=== PATIENT | female | born 1945 | race Caucasian/White ===

== ENCOUNTER 2018-09-08 12:53 | Inpatient (IN) | payer MEDICARE, SELFPAY ==
[2018-09-08] VITALS (8 sets, daily range): BP systolic 117–161; BP diastolic 61–80; PULSE 68–86; RESP 15–17; TEMP 36.7–37.2; O2SAT 96–100; BMI 22.1; BMI 21.5
--- NOTE | 2018-09-08 13:27 | EKG12_ITS ---
Test Reason : ABN LABS Blood Pressure : / mmHG Vent. Rate : 071 BPM Atrial Rate : 071 BPM P-R Int : 166 ms QRS Dur : 068 ms QT Int : 378 ms P-R-T Axes : 070 054 057 degrees QTc Int : 410 ms Normal sinus rhythm with sinus arrhythmia Normal ECG Confirmed by MIKE SAN, HAI ([id number]), scientific publications editor RADHIKA LESTER ([id number]) on 09/13/2018 4:55:29 PM Referred By: Ethan Duarte Confirmed By:HAI MCKEON MD
--- NOTE | 2018-09-08 13:27 | CT_ITS ---
STUDY: CT BRAIN WITHOUT CONTRAST REASON FOR EXAM: Female, 72 years old. History of frontal lobe bleed. Dizziness. Patient had CT scan of the chest with IV contrast earlier today. RADIATION DOSAGE (If Supplied By Facility): CTDIvol = ( 60.81 ) mGy, DLP = ( 1067.08 ) mGycm TECHNIQUE: Transaxial CT imaging of the brain was performed without administration of intravenous contrast material. Individualized dose optimization techniques were used for this CT. COMPARISON: None. FINDINGS: Normal soft tissue structures. Normal calvarium. There is mild cerebral atrophy with widening of the extra-axial spaces and ventricular dilatation. There are areas of decreased attenuation within the white matter tracts of the supratentorial brain, consistent with microvascular disease changes. There are small punctate calcifications of the basal ganglia which are seen in the aging brain as a normal variant. Normal brainstem. Normal cerebellum. There is no intracranial hemorrhage. There are no findings of an acute ischemic infarction. Normal visualized paranasal sinuses. CT/Brain/Head without Contrast IMPRESSION: Chronic involutional changes of the brain. Electronically Signed: Andrea Hutson MD at 14:33 EST Tel [phone], Service support ,
--- NOTE | 2018-09-08 13:31 | NURSING ---
NO OLD EKGS
[2018-09-08 14:10] LABS: Absolute Lymphocyte Count 1.18 X10^3/ul (0.83-4.51); Basophil# 0.02 X10^3/uL; Basophil% 0.4 % (0-1); Eosinophil# 0.07 X10^3/uL; Eosinophils% 1.5 % (0-5); Hematocrit 32.8 % (37-47); Hemoglobin 10.4 g/dl (12.0-15.0); Lymphocyte # 1.18 X10^3/ul (4.0); Lymphocyte % 24.6 % (19-41); Mean Corp Hgb Conc 31.7 g/gl (32-36); Mean Corpuscular Hgb 29.1 pg (27.0-32.0); Mean Corpuscular Volume 91.6 fL (81-99); Monocyte# 0.49 X10^3/uL; Monocyte% 10.2 % (0-10); Neutrophil # 3.02 X10^3/uL (2.7-7.7); Neutrophil % 63.1 % (47-70); Platelet Count 225 K/mm3 (150-450); RBC Distribution Width CV 12.6 % (11.6-14.6); RBC Distribution Width SD 41.5 fl (35.1-43.9); Red Blood Count 3.58 M/mm3 (4.2-5.4); White Blood Count 4.8 K/mm3 (4.4-11.0)
[2018-09-08 14:14] LABS: POSITIVE COUNT NO; POSITIVE DIFFERENTIAL NO; POSITIVE MORPHOLOGY NO
[2018-09-08 14:19] LABS: Prothrombin Time (Protime)PT. 12.7 SECONDS (11.7-14.9)
[2018-09-08] MEDS: Ondansetron 4 MG/2 ML Vial IV (15:00)
--- NOTE | 2018-09-08 15:14 | ED.DCSUM_ITS ---
- ER Visit Summary Date of Service: 09/08/18 Chief Complaint: PE History of Present Illness: The patient is a 72 F who was sent for a PE. The patient has a history of uterine cancer and gets CTs every 3 months for surveillance. She had a distal posterior basal segmental artery right lower lobe PE on CT today. This was an outside facility. The patient is not having any symptoms at all. Denies any history of blood clots. She does report that she had a head bleed after a fall in mid July 2018. Physical Examination: Afebrile and vital signs unremarkable. Patient is alert and oriented. No acute distress. Heart regular. Lungs clear. Extremities nontender with no edema. Skin appears unremarkable. Test Results: EKG showed sinus rhythm at a rate of 71. Heme globin 10.4. Coags unremarkable. Troponin normal. She had an outside metabolic panel that showed a glucose of 103, BUN 16, creatinine 0.65. Otherwise normal. CT brain normal. Emergency Department Course and Treatment: Patient declined repeat metabolic panel. She had one done today. Again, glucose 103, BUN 16, creatinine 0.65. I did check a head CT because of her history of bleed. This was unremarkable. Patient discussed with hospitalist and will be admitted. He advised that she might be a good candidate for IVC filter. I spoke with Dr. Paredes. He can put her on the schedule for mid day tomorrow. I believe this is appropriate. The patient is stable. Hospitalist is agreeable to this. Patient will be admitted for further care. Treatment Plan: As above Disposition: Admission Impression: Pulmonary embolism This note was generated with [employer] dictation software. It may contain incorrect words, spelling, and punctuation that were not noted in review of the chart prior to signing ED Disposition - Plan for ED Patient: Chief Complaint: Abn Labs Referrals: Tee Monroe MD [Primary Care Provider] -
--- NOTE | 2018-09-08 15:28 | HP.PCM_ITS ---
Problem List (1) Pulmonary embolism Status: Acute (2) Brain bleed Status: Chronic (3) Multiple sclerosis Status: Chronic (4) Uterine cancer Status: Chronic (5) Pulmonary nodule Status: Chronic History of Present Illness Date of Admission: 09/08/18 Chief Complaint: PE on routine CT The patient is a 72 year old F who presented to the emergency room after being found to have a pulmonary emboli incidentally on routine imaging. 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 Noam Freeman at [facility] - prior tx with total hysterectomy and radiation. She also has a hx of MS and HLD. She is currently being treated with oral chemotherapy-Afinitor. She has routine CAT scans of her lungs every 3 months. This is found today. Despite having a pulmonary embolism she does not have any symptoms including chest pain or shortness of breath. She has had intermittent dizziness reportedly during yoga last night and again today after the CT. She also has some nausea and dry heaving today. Unfortunately she has a recent history of a brain bleed. This occurred on August 17. She fell backwards striking her head and was found to have a frontal brain bleed-intraparenchymal hemorrhage and subdural hemorrhage. Due to this she cannot be anticoagulated. She is agreeable to surgery if needed, and Dr. Paredes will evaluate the patient. 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 Denies: Abdominal Pain Genitourinary: Denies: Dysuria Musculoskeletal: Denies: Joint Pain, Joint Tenderness Skin: Denies: Rash, Wounds Neurological: Denies: Numbness, Tingling, Focal weakness Psychiatric: Denies: Anxiety, Depression, Homicidal Ideations, Suicidal Ideations Hematologic/ Lymphatic: Denies: Easy Bruising, Easy Bleeding VTE Information - Inpt Only VTE Present on Admission: Yes VTE Mechan Device Prophylaxis: SCD's VTE Pharm Prophylaxis ordered?: No Reason prophylaxis not ordered:: Medical Contraindication Patient Problems: Active and Suspected Problems Pulmonary embolism (Acute) - Physical Exam General: Alert, Oriented x3, Cooperative HEENT: Atraumatic, PERRLA, EOMI, Normocephalic Neck: Supple, No JVD, Negative Carotid Bruits Lungs: Clear to auscultation, Normal air movement Cardiovascular: Regular rate, No murmurs Abdomen: Bowel Sounds Present, Soft, Non Tender Extremities: No edema, Capillary Refill Less than 3 Seconds Skin: No rashes, No breakdown Musculoskeletal: No Tenderness to Palpation of Joints or Extremities Neurological: Cranial nerves II-XII grossly intact Psych/Mental Status: Normal Affect, Appropriate, Alert and oriented to time, place, person, mood and affect Vital Signs Temp Pulse Resp BP Pulse Ox 98.1 F 73 15 161/80 H 99 09/08/18 12:58 09/08/18 14:54 09/08/18 14:54 09/08/18 14:54 09/08/18 14:54 Oxygen Delivery Method Room Air Weight: 113 lb 8.609 oz Body Mass Index (BMI) 22.1 Laboratory Tests Past 24 Hrs 09/08/18 09/08/18 09/08/18 13:56 13:56 13:56 WBC 4.8 RBC 3.58 L Hgb 10.4 L Hct 32.8 L MCV 91.6 MCH 29.1 MCHC 31.7 L RDW 12.6 RDW Differential 41.5 Plt Count 225 MPV 9.0 Immature Gran % (Auto) 0.200 Neut % (Auto) 63.1 Lymph % (Auto) 24.6 [place] % (Auto) 10.2 H Eos % (Auto) 1.5 Baso % (Auto) 0.4 Absolute Neuts (auto) 3.0 Absolute Lymphs (auto) 1.18 Total Counted Not Reportable PT 12.7 INR 1.0 APTT 28.0 Troponin I 0.021 Assessment/Plan All Active Problems Pulmonary embolism (Acute) 1. Acute PE - incidental finding on q3 month outpatient CT scan today at outside facility - RLL distal posterior basal. No SOB/hypoxia/CP. Likely 2/2 uterine cancer. Recent intraparenchymal hemorrhage, subdural hemorrhage following fall and striking her head. Repeat CT brain today without acute changes. Obtain dopplers of the LE, 2d echocardiogram. Consult to Dr. Paredes as the patient may need IVC filter placement. EKG with sinus arrhythmia. Troponin neg. 2. Anemia, normocytic - trend. 3. 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 Reported spiculated pulmonary nodule that has not been worked up. On oral chemo - afinitor. Oncologist is [facility] Dr. Freeman ([place]). Prior total hysterectomy, radiation therapy. 4. Hx MS - with recent falls. PTOT evals. 6. Vertigo - echo, tele. prn antiemetics, PTOT. 7. HTN - no hx, elevated in ER - trend for now. 8. Hx HLD DVT ppx: SCDs, chemo ppx contraindicated with hx brain bleeding. DC planning: lives alone. PTOT evals. This patient was seen by Bear Velazquez PA-C under the supervision of Doctor Duarte.
--- NOTE | 2018-09-08 15:43 | PCM.CONS.GEN ---
Problem List (1) Pulmonary embolism Status: Acute (2) Uterine cancer Status: Chronic Reason for Consult Date of Consultation: 09/08/18 Reason for Consultation: Pulmonary embolism History of Present Illness: The patient is a 72 year old F who presents with a right lower lobe pulmonary embolism. Patient was at an outside facility obtaining a scheduled routine [address] scan of the ab/pel/chest. It was noted that the patient had a right lower lobe pulmonary embolism. Patient was also noted to have a new lung nodule found. Patient has a 5 year history of uterine cancer. Patient stated her uterine cancer returned this past summer. She has completed radiation and chemotherapy. She is currently continuing to take a chemotherapy drug daily. She follows with Dr. Freeman at [facility]. She denies previous blood clots. She denies pain in her calves. She does have a port-a-cath in the right chest. Per patient, she has not had a DVT study. Patient is also present with her friend and [id number]. Per patient's friend, patient had a fall mid July and was hospitalized for a brain bleed. Patient denies previous myocardial infarction, stroke. She denies shortness of breath and chest pain. Past Medical History Past Medical History (Chronic Problems): Chronic Problems Brain bleed (Chronic) Multiple sclerosis (Chronic) Uterine cancer (Chronic) Pulmonary nodule (Chronic) Allergies codeine Allergy (Verified 09/08/18 12:58) Hives erythromycin base Allergy (Verified 09/08/18 12:58) Upset Stomach methylprednisolone Allergy (Verified 09/08/18 12:58) Hives Sulfa (Sulfonamide Antibiotics) Allergy (Verified 09/08/18 12:58) Hives Home Medications: Ambulatory Orders Medication Instructions Recorded Atorvastatin Calcium [Lipitor] 10 mg PO QHS 09/08/18 Brimonidine 0.15% [Alphagan P 1 drop EACH EYE BID 09/08/18 0.15%] Cholecalciferol (VIT D3) [Vitamin 1,000 unit PO DAILY 09/08/18 D] Clonazepam 1 mg PO QHS PRN PRN 09/08/18 Dexamethasone 10 ml PO TID 09/08/18 Escitalopram Oxalate [Lexapro] 10 mg PO DAILY 09/08/18 Everolimus [Afinitor] 10 mg PO DAILY 09/08/18 Latanoprost 1 drop EACH EYE QHS 09/08/18 Letrozole 2.5 mg PO DAILY 09/08/18 Multivitamins,Therapeutic 1 tablet PO DAILY 09/08/18 [Multivitamin] Nitrofurantoin Monohyd/M-Cryst 100 mg PO DAILY 09/08/18 [Nitrofurantoin [place]-Mcr 100 mg] Ondansetron HCl 8 mg PO Q8H PRN PRN 09/08/18 Sertraline HCl 100 mg PO DAILY 09/08/18 Timolol Maleate 1 drop EACH EYE BID 09/08/18 Psychiatric History: No pertinent psych hx 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 Denies: Abdominal Pain, Vomiting Genitourinary: Denies: Dysuria Musculoskeletal: Denies: Joint Pain, Joint Tenderness Skin: Denies: Rash, Wounds Neurological: Reports: Balance problems Psychiatric: Denies: Anxiety, Depression, Homicidal Ideations, Suicidal Ideations Hematologic/ Lymphatic: Reports: Anemia. Denies: Easy Bruising, Easy Bleeding Patient Problems: Active and Suspected Problems Pulmonary embolism (Acute) - Physical Exam General: Alert, Oriented x3, Cooperative HEENT: Atraumatic, PERRLA, EOMI, Normocephalic Neck: Supple, No JVD, Negative Carotid Bruits Lungs: Clear to auscultation, Normal air movement Cardiovascular: Regular rate, No murmurs Abdomen: Bowel Sounds Present, Soft, Non Tender Extremities: No edema, Capillary Refill Less than 3 Seconds Skin: No rashes, No breakdown, - - Right chest port-a-cath Musculoskeletal: No Tenderness to Palpation of Joints or Extremities Neurological: Neuro grossly intact Psych/Mental Status: Normal Affect, Appropriate Vital Signs Temp Pulse Resp BP Pulse Ox 98.1 F 73 15 161/80 H 99 09/08/18 12:58 09/08/18 14:54 09/08/18 14:54 09/08/18 14:54 09/08/18 14:54 Oxygen Delivery Method Room Air Weight: 113 lb 8.609 oz Body Mass Index (BMI) 22.1 Laboratory Tests Past 24 Hrs 09/08/18 09/08/18 09/08/18 13:56 13:56 13:56 WBC 4.8 RBC 3.58 L Hgb 10.4 L Hct 32.8 L MCV 91.6 MCH 29.1 MCHC 31.7 L RDW 12.6 RDW Differential 41.5 Plt Count 225 MPV 9.0 Immature Gran % (Auto) 0.200 Neut % (Auto) 63.1 Lymph % (Auto) 24.6 [place] % (Auto) 10.2 H Eos % (Auto) 1.5 Baso % (Auto) 0.4 Absolute Neuts (auto) 3.0 Absolute Lymphs (auto) 1.18 Total Counted Not Reportable PT 12.7 INR 1.0 APTT 28.0 Troponin I 0.021 Assessment/Plan All Active Problems Pulmonary embolism (Acute) I have been consulted in conjunction with Dr. Paredes. Impression: Pulmonary embolism. Anticoagulation contraindicated secondary to recent brain bleed. In need of inferior vena cava filter Plan: Patient was discussed with Dr. Paredes. Dr. Paredes will plan to perform an inferior vena cava filter. Procedure details, risks and benefits have been explained to the patient. Patient and her support have had the opportunity to ask and have questions answered. Patient verbally understands and agrees with the plan. Patient will be admitted to the medicine service. She will be NPO after midnight. Thank you for allowing us to participate in this patient's care. My recommendations will be available via medical records. Code Visit Office Visits / Consults: [id number] IP Consult L3
--- NOTE | 2018-09-08 15:59 | CON.PCM_ITS ---
Problem List (1) Pulmonary embolism Status: Acute (2) Uterine cancer Status: Chronic Reason for Consult Date of Consultation: 09/08/18 Reason for Consultation: Pulmonary embolism History of Present Illness: The patient is a 72 year old F who presents with a right lower lobe pulmonary embolism. Patient was at an outside facility obtaining a scheduled routine [address] scan of the ab/pel/chest. It was noted that the patient had a right lower lobe pulmonary embolism. Patient was also noted to have a new lung nodule found. Patient has a 5 year history of uterine cancer. Patient stated her uterine cancer returned this past summer. She has completed radiation and chemotherapy. She is currently continuing to take a chemotherapy drug daily. She follows with Dr. Freeman at [facility]. She denies previous blood clots. She denies pain in her calves. She does have a port-a-cath in the right chest. Per patient, she has not had a DVT study. Patient is also present with her friend and [id number]. Per patient's friend, patient had a fall mid July and was hospitalized for a brain bleed. Patient denies previous myocardial infarction, stroke. She denies shortness of breath and chest pain. Past Medical History Past Medical History (Chronic Problems): Chronic Problems Brain bleed (Chronic) Multiple sclerosis (Chronic) Uterine cancer (Chronic) Pulmonary nodule (Chronic) Allergies codeine Allergy (Verified 09/08/18 12:58) Hives erythromycin base Allergy (Verified 09/08/18 12:58) Upset Stomach methylprednisolone Allergy (Verified 09/08/18 12:58) Hives Sulfa (Sulfonamide Antibiotics) Allergy (Verified 09/08/18 12:58) Hives Home Medications: Ambulatory Orders Medication Instructions Recorded Atorvastatin Calcium [Lipitor] 10 mg PO QHS 09/08/18 Brimonidine 0.15% [Alphagan P 1 drop EACH EYE BID 09/08/18 0.15%] Cholecalciferol (VIT D3) [Vitamin 1,000 unit PO DAILY 09/08/18 D] Clonazepam 1 mg PO QHS PRN PRN 09/08/18 Dexamethasone 10 ml PO TID 09/08/18 Escitalopram Oxalate [Lexapro] 10 mg PO DAILY 09/08/18 Everolimus [Afinitor] 10 mg PO DAILY 09/08/18 Latanoprost 1 drop EACH EYE QHS 09/08/18 Letrozole 2.5 mg PO DAILY 09/08/18 Multivitamins,Therapeutic 1 tablet PO DAILY 09/08/18 [Multivitamin] Nitrofurantoin Monohyd/M-Cryst 100 mg PO DAILY 09/08/18 [Nitrofurantoin [place]-Mcr 100 mg] Ondansetron HCl 8 mg PO Q8H PRN PRN 09/08/18 Sertraline HCl 100 mg PO DAILY 09/08/18 Timolol Maleate 1 drop EACH EYE BID 09/08/18 Psychiatric History: No pertinent psych hx 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 Denies: Abdominal Pain, Vomiting Genitourinary: Denies: Dysuria Musculoskeletal: Denies: Joint Pain, Joint Tenderness Skin: Denies: Rash, Wounds Neurological: Reports: Balance problems Psychiatric: Denies: Anxiety, Depression, Homicidal Ideations, Suicidal Ideations Hematologic/ Lymphatic: Reports: Anemia. Denies: Easy Bruising, Easy Bleeding Patient Problems: Active and Suspected Problems Pulmonary embolism (Acute) - Physical Exam General: Alert, Oriented x3, Cooperative HEENT: Atraumatic, PERRLA, EOMI, Normocephalic Neck: Supple, No JVD, Negative Carotid Bruits Lungs: Clear to auscultation, Normal air movement Cardiovascular: Regular rate, No murmurs Abdomen: Bowel Sounds Present, Soft, Non Tender Extremities: No edema, Capillary Refill Less than 3 Seconds Skin: No rashes, No breakdown, - - Right chest port-a-cath Musculoskeletal: No Tenderness to Palpation of Joints or Extremities Neurological: Neuro grossly intact Psych/Mental Status: Normal Affect, Appropriate Vital Signs Temp Pulse Resp BP Pulse Ox 98.1 F 73 15 161/80 H 99 09/08/18 12:58 09/08/18 14:54 09/08/18 14:54 09/08/18 14:54 09/08/18 14:54 Oxygen Delivery Method Room Air Weight: 113 lb 8.609 oz Body Mass Index (BMI) 22.1 Laboratory Tests Past 24 Hrs 09/08/18 09/08/18 09/08/18 13:56 13:56 13:56 WBC 4.8 RBC 3.58 L Hgb 10.4 L Hct 32.8 L MCV 91.6 MCH 29.1 MCHC 31.7 L RDW 12.6 RDW Differential 41.5 Plt Count 225 MPV 9.0 Immature Gran % (Auto) 0.200 Neut % (Auto) 63.1 Lymph % (Auto) 24.6 [place] % (Auto) 10.2 H Eos % (Auto) 1.5 Baso % (Auto) 0.4 Absolute Neuts (auto) 3.0 Absolute Lymphs (auto) 1.18 Total Counted Not Reportable PT 12.7 INR 1.0 APTT 28.0 Troponin I 0.021 Assessment/Plan All Active Problems Pulmonary embolism (Acute) I have been consulted in conjunction with Dr. Paredes. Impression: Pulmonary embolism. Anticoagulation contraindicated secondary to recent brain bleed. In need of inferior vena cava filter Plan: Patient was discussed with Dr. Paredes. Dr. Paredes will plan to perform an inferior vena cava filter. Procedure details, risks and benefits have been explained to the patient. Patient and her support have had the opportunity to ask and have questions answered. Patient verbally understands and agrees with the plan. Patient will be admitted to the medicine service. She will be NPO after midnight. Thank you for allowing us to participate in this patient's care. My recommendations will be available via medical records. Code Visit Office Visits / Consults: [id number] IP Consult L3
--- NOTE | 2018-09-08 16:02 | VDLE_ITS ---
Reason For Study: PE RIGHT LEFT Rt CFV is dilated and PARTIALLY COMPRESSIBLE GSV is normal. with partial color filling. CFV is compressible, spontaneous, phasic, Rt SFJ is dilated and PARTIALLY COMPRESSIBLE competent, and demonstrates normal with partial color filling. augmentation. Rt SFV is dilated and PARTIALLY COMPRESSIBLE Left SFV is dilated and NONCOMPRESSIBLE from with partial color filling to mid FV. The mid SFV to T/P Trunk. Left POP V is dilated remainder of SFV is compressible and fills and NONCOMPRESSIBLE. The remainder of the SFV with color. is compressible. POP V is compressible, spontaneous, phasic, PTV is compressible. competent and demonstrates normal LT PerV is compressible. augmentation. T/P Trunk is compressible. PTV is compressible. RT PerV is compressible. GSV is normal. Procedure Exam performed portable in patient room. A preliminary report was called and/or faxed to PCU. Interpretation Summary Acute deep vein thrombosis is noted in the right common femoral vein. Acute deep vein thrombosis is noted in the right femoral vein. The remainder of the right lower extremity deep venous system is patent and compressible. Acute deep vein thrombosis is noted in the left femoral vein. Acute deep vein thrombosis is noted in the left popliteal vein. Acute deep vein thrombosis is noted in the left tibio-peroneal trunk. The remainder of the left lower extremity deep venous system is patent and compressible. The great saphenous veins are patent and compressible bilaterally. Ordering Physician: Ethan Duarte Referring Physician: JIMMY PIZARRO Performed By: Sraa Davila, MAURICIO, RVT
--- NOTE | 2018-09-08 16:02 | ECHOD_ITS ---
Reason For Study: PE Procedure This was a 2D Doppler, Color Flow transthoracic echocardiogram. The exam was of adequate technical quality. Exam performed portable in patient room. Left Ventricle Normal LV size. Left ventricular systolic function is normal. The estimated ejection fraction is 65 %. The global longitudinal strain = -27 % (normal). No evidence for diastolic dysfunction. No regional wall motion abnormalities noted. Right Ventricle Normal RV size. A moderator band is seen in the right ventricle. Normal systolic function. Atria Normal left atrium. Normal right atrium. No doppler evidence for ASD. Mitral Valve There is no mitral annular calcification. Mild diffuse mitral valve thickening. Trivial mitral valve insufficiency. Tricuspid Valve Normal tricuspid valve. Trivial tricuspid valve insufficiency. Right ventricular systolic pressure estimated to be 20 mmHg. Aortic Valve Trisinus/trileaflet aortic valve. Mild diffuse aortic valve thickening. Pulmonic Valve The pulmonic valve is not well visualized. Trivial pulmonic valve insufficiency. Great Vessels Normal sized aortic root. Pericardium/Pleural No pericardial effusion. MMode/2D Measurements & Calculations LVIDd: 4.3 cm IVSd: 0.86 cm Ao root diam: 3.0 cm LVIDs: 3.1 cm LVPWd: 1.0 cm RVDd: 2.8 cm FS: 29.4 % LAV(MOD-bp): 35.2 ml LA A4 area: 11.2 cm2 LA dimension(2D): 3.5 cm LAV(MOD-bp) Indexed: 23.9 ml/m2 LAV(MOD-sp2): 35.2 ml LAV(MOD-sp4): 27.0 ml RA A4 area: 9.3 cm2 Doppler Measurements & Calculations MV E max abraham: 75.9 cm/sec Lat Peak E' Abraham: 8.3 cm/sec Med Peak E' Abraham: 6.9 cm/sec MV A max abraham: 96.6 cm/sec E/E' lat: 9.1 E/E' med: 11.0 MV E/A: 0.79 Ao V2 max: 124.4 cm/sec LV V1 max: 85.4 cm/sec PA V2 max: 123.9 cm/sec Ao max P.2 mmHg LV V1 max P.9 mmHg TR max abraham: 205.8 cm/sec TR max P.9 mmHg Interpretation Summary Left ventricular systolic function is normal. The estimated ejection fraction is 65 %. The global longitudinal strain = -27 % (normal). A moderator band is seen in the right ventricle. Mild diffuse mitral valve thickening. Trivial mitral valve insufficiency. Trivial tricuspid valve insufficiency. Mild diffuse aortic valve thickening. Trivial pulmonic valve insufficiency. Right ventricular systolic pressure estimated to be 20 mmHg. No evidence for diastolic dysfunction. Ordering Physician: Ethan Duarte Referring Physician: Ryley Monroe Performed By: Rosa Castillo RDCS, RVT
[2018-09-08] MEDS: Acetaminophen 325 MG Tablet 650 MG PO (18:21)
[2018-09-08] MEDS: 0.9% NaCl Peripheral Flush Adult/Peds IV ×3 (20:02→20:05)
[2018-09-08] MEDS: clonazePAM 1 MG Tablet PO (23:40)
[2018-09-08] MEDS: Atorvastatin Calcium 10 MG Tablet PO (23:40)
[2018-09-08] MEDS: Timolol 0.5% 5ML OPTH.BTL 1 DRP EACH EYE (23:41)
[2018-09-09] VITALS (17 sets, daily range): BP systolic 108–143; BP diastolic 48–70; PULSE 68–84; RESP 15–16; TEMP 36.8–37.2; O2SAT 94–99; BMI 21.5
[2018-09-09] MEDS: 0.9% NaCl Peripheral Flush Adult/Peds IV ×3 (04:31→04:33)
[2018-09-09 04:46] LABS: Absolute Lymphocyte Count 1.57 X10^3/ul (0.83-4.51); Absolute Neutrophil Count 2.3 X10^3/uL (2.0-7.7); Basophil# 0.03 X10^3/uL; Basophil% 0.7 % (0-1); Eosinophils% 2.2 % (0-5); Hematocrit 30.9 % (37-47); Hemoglobin 9.7 g/dl (12.0-15.0); Lymphocyte # 1.57 X10^3/ul (4.0); Mean Corp Hgb Conc 31.4 g/gl (32-36); Mean Corpuscular Hgb 28.8 pg (27.0-32.0); Mean Corpuscular Volume 91.7 fL (81-99); Monocyte# 0.44 X10^3/uL; Monocyte% 9.8 % (0-10); Neutrophil # 2.33 X10^3/uL (2.7-7.7); Neutrophil % 52.1 % (47-70); Platelet Count 196 K/mm3 (150-450); RBC Distribution Width SD 43.3 fl (35.1-43.9); Red Blood Count 3.37 M/mm3 (4.2-5.4); White Blood Count 4.5 K/mm3 (4.4-11.0)
[2018-09-09 04:47] LABS: POSITIVE COUNT NO; POSITIVE DIFFERENTIAL NO; POSITIVE MORPHOLOGY NO
[2018-09-09 04:53] LABS: International Normalized Ratio 0.9; Prothrombin Time (Protime)PT. 12.2 SECONDS (11.7-14.9)
[2018-09-09 04:54] LABS: Partial Thromboplast Time 26.1 Seconds (24.1-36.2)
[2018-09-09 05:00] LABS: Anion Gap 10 (5-15); BUN 16 mg/dL (7-18); BUN/Creat Ratio 19.1 RATIO (10-20); Calcium,Total 8.7 mg/dL (8.5-10.1); Chloride 105 mmol/L (98-107); Creatinine, Serum 0.84 mg/dL (0.55-1.02); EST Glomerular Filtration Rate 72 mL/min (>60); Est Glom Filt Rate - Afr Amer 87 mL/min (>60); Estimated Creatinine Clearance 44.76 ml/min; Glucose 91 mg/dL (74-106); Potassium 3.8 mmol/L (3.5-5.1); Sodium Level 143 mmol/L (136-145)
--- NOTE | 2018-09-09 05:55 | EKG12_ITS ---
Test Reason : AM EKG Blood Pressure : / mmHG Vent. Rate : 075 BPM Atrial Rate : 075 BPM P-R Int : 174 ms QRS Dur : 072 ms QT Int : 396 ms P-R-T Axes : 073 056 064 degrees QTc Int : 442 ms Normal sinus rhythm with sinus arrhythmia Normal ECG When compared with ECG of 08-SEP-2018 13:38, MANUAL COMPARISON REQUIRED, DATA IS UNCONFIRMED Confirmed by MIKE SAN, HAI ([id number]), make up editor RADHIKA LESTER ([id number]) on 09/13/2018 5:36:17 PM Referred By: Ethan Duarte Confirmed By:HAI MCKEON MD
[2018-09-09 05:59] LABS: Color, Urine Yellow (Yellow); Glucose, Dipstick Normal (Normal); Ketone-Dipstick Negative (Negative); Leukocyte Esterase-Dipstick 100 /ul (Negative); Nitrite-Dipstick Negative (Negative); Occult Blood-Urine Negative /ul (Negative); Protein-Dipstick 30 mg/dl (Negative); Urine Bilirubin Dipstick Negative (Negative); Urine Clarity Clear (Clear); Urine Urobilinogen Normal (Normal)
--- NOTE | 2018-09-09 09:15 | CASEMGMT ---
[employer] PSYCHOLOGIST AMANDA to room to meet with patient for initial transition planning/care coordination assessment. MONTSE PATEL introduced self and role at [facility]. Pt voices understanding and consents to assessment at this time. Pt resting in bed in no distress at this time. Pt is A/O at this time and answers all questions appropriately. Care providers, pharmacy, and demographics verified/updated at this time. PCP: Fer Specialists: Dr Noam Freeman, oncologist in [place]; Dr Michael, [place] doctor @ [facility] in [place]. States she does not remember Dr Michael's last name. Preferred Pharmacy: [facility] Insurance: [employer] MCR Prescription Benefit: A[employer]na MCR Living Will/HPOA: Has both LW and HCPOA, who is her son, Min Kennedy. Copies not found on file. Pt states she is not sure if her son has a copy of these or if he is able to bring them in. LNOK: 2 sons and a daughter Living Arrangements: Lives alone in a tri-level home. [facility] there are 5 sets of stairs w/in the home. States I do fine with the stairs. [facility] is independent with all ADL's. Has a cleaning lady come every 2 weeks. Transportation: Pt states drives self but will ask friends for assistance if needed. [facility] have transportation services she is going to look into. Pt also provided with [facility] Van transportation information. Pt voices appreciation. DME: [facility] has the following DME: Shower chair, hand held shower, and cane. [facility] has a walker but does not use it. Pt states no need for further DME at this time. HHC/SNF: Has never used HHC or been to a SNF. Denies needs for HHC. Pt states she has an appt on Wednesday with an MS physical therapist from [place] that she is planning to work with. Pt wishes to return home and states has no concerns with going home at time of discharge. CM to follow for any further discharge planning/needs. Pt voices no further concerns/needs at this time. Advised pt to ask for CM if any further questions/concerns/needs arise. Voices understanding. PLAN: Home Clara DANIELS RN, CM
--- NOTE | 2018-09-09 13:02 | OP.PCM_ITS ---
Problem List (1) Pulmonary embolism Status: Acute Qualifiers: Pulmonary embolism type: other Chronicity: acute Acute cor pulmonale presence: without acute cor pulmonale Qualified Code(s): I26.99 - Other pulmonary embolism without acute cor pulmonale Report of Operation Date of Procedure: 09/09/18 Pre-Operative Diagnosis: Pulmonary embolization. Deep venous thrombosis bilateral groins Post-Operative Diagnosis: Same Surgery/Procedure Performed:: Trans-right jugular inferior vena cava retrievable Sarai filter placement Description of Surgical Findings:: Timeout and informed consent was obtained. 72-year-old female was taken to the special procedures lab placed upon the table. She had the right neck and chest sterilely prepped and draped. Ultrasound was used to identify the right internal jugular vein. This is rather diminutive. The patient has a right internal jugular port. Under ultrasound guidance percent lidocaine was instilled. A micropuncture needle was inserted. Despite 3 separate attempts the micropuncture wire could not be advanced past the internal jugular tubing. So then under ultrasound guidance I advanced a single wall needle into the right internal jugular vein and advanced a 035 Glidewire which I was able to advance past the internal jugular SVC port tubing. I then was able to dilate up plate a 5 Bangladeshi sheath. I was able to place an 035 Glidewire down into the inferior vena cava and placed a 5 Bangladeshi universal flush catheter. A AP venogram was obtained using the flush catheter at 15 cc a second 25 cc of Isovue. Venacavogram demonstrated no flow noted in the right common iliac but that may have been secondary to positioning the catheter. There was acute angulation of the left common iliac with no thrombus. The more distal inferior vena cava was at slightly smaller diameter. Then it broadened out and both renal veins could be filling. The proximal flow appeared to be unremarkable. I did not see any vena caval thrombus. I was able to instrument maker out an 035 J-wire through the flush catheter. The 5 Bangladeshi sheath was exchanged out and a 9 Bangladeshi sheath was used to dilate the and the deploying sheath for the telemetry filter was inserted. I placed the Webb filter so that the feet would open into the wider portion of the vein in correct angulation with the longitudinal position of the inferior vena cava and to have the apical portion of the filter close to the renal veins. It deployed nicely. I inspected with several different views assuring that all legs of the filter had opened properly and that appeared to be confirmed on the imaging. I removed the deployment device. I removed the sheath with continuous observation of the port tubing assuring no displacement. Then pressure was held for hemostasis Telfa OpSite dressing applied. She tolerated the procedure well. It is of note that throughout the procedure she received 50 mcg of fentanyl and 2 mg of Versed as intravenous sedation Specimens none. Drains none. Blood loss minimal. She remained completely stable intact throughout the procedure and she was taken back to recovery area in satisfactory condition without apparent complication René Paredes M.D., F.A.C.S. Type of Anesthesia:: IV Sedation
--- NOTE | 2018-09-09 13:21 | PN_ITS ---
<Bear Velazquez - Last Filed: 09/09/18 13:18> Patient Problems: Active and Suspected Problems Pulmonary embolism (Acute) Subjective: Pt resting comfortably in bed NAD, seen and examined prior to surgery. She had no SOB or CP. Her nausea and dizziness resolved overnight. She has no complaints this AM. - Physical Exam General: Alert, Oriented x3, Cooperative HEENT: Atraumatic, PERRLA, EOMI, Normocephalic Neck: Supple, No JVD, Negative Carotid Bruits Lungs: Clear to auscultation, Normal air movement Cardiovascular: Regular rate, No murmurs Abdomen: Bowel Sounds Present, Soft, Non Tender Extremities: No edema, Capillary Refill Less than 3 Seconds Skin: No rashes, No breakdown Musculoskeletal: No Tenderness to Palpation of Joints or Extremities Neurological: Cranial nerves II-XII grossly intact Psych/Mental Status: Normal Affect, Appropriate, Alert and oriented to time, place, person, mood and affect Vital Signs Temp Pulse Resp BP Pulse Ox 98.6 F 80 16 142/70 H 99 09/09/18 09:53 09/09/18 11:49 09/09/18 09:53 09/09/18 09:53 09/09/18 09:53 Oxygen Delivery Method Room Air Weight: 110 lb 3.698 oz Body Mass Index (BMI) 21.5 Intake and Output for Last 24 Hours 09/07/18 09/08/18 09/09/18 23:59 23:59 23:59 Intake Total 820 / 820 Balance 820 / 820 Laboratory Tests Past 24 Hrs 09/08/18 09/08/18 09/08/18 13:56 13:56 13:56 WBC 4.8 RBC 3.58 L Hgb 10.4 L Hct 32.8 L MCV 91.6 MCH 29.1 MCHC 31.7 L RDW 12.6 RDW Differential 41.5 Plt Count 225 MPV 9.0 Immature Gran % (Auto) 0.200 Neut % (Auto) 63.1 Lymph % (Auto) 24.6 [place] % (Auto) 10.2 H Eos % (Auto) 1.5 Baso % (Auto) 0.4 Absolute Neuts (auto) 3.0 Absolute Lymphs (auto) 1.18 Total Counted Not Reportable PT 12.7 INR 1.0 APTT 28.0 Sodium Potassium Chloride Carbon Dioxide Anion Gap BUN Creatinine Estim Creat Clear Calc Est GFR (MDRD) Af Amer Est GFR (MDRD) Non-Af BUN/Creatinine Ratio Glucose Calcium Troponin I 0.021 Urine Color Urine Clarity Urine pH Ur Specific [place] Urine Protein Urine Glucose (UA) Urine Ketones Urine Occult Blood Urine Nitrite Urine Bilirubin Urine Urobilinogen Ur Leukocyte Esterase 09/08/18 09/08/18 09/09/18 17:00 20:04 04:35 WBC RBC Hgb Hct MCV MCH MCHC RDW RDW Differential Plt Count MPV Immature Gran % (Auto) Neut % (Auto) Lymph % (Auto) [place] % (Auto) Eos % (Auto) Baso % (Auto) Absolute Neuts (auto) Absolute Lymphs (auto) Total Counted PT INR APTT Sodium 143 Potassium 3.8 Chloride 105 Carbon Dioxide 28.0 Anion Gap 10 BUN 16 Creatinine 0.84 Estim Creat Clear Calc 44.76 Est GFR (MDRD) Af Amer 87 Est GFR (MDRD) Non-Af 72 BUN/Creatinine Ratio 19.1 Glucose 91 Calcium 8.7 Troponin I < 0.015 < 0.015 Urine Color Urine Clarity Urine pH Ur Specific [place] Urine Protein Urine Glucose (UA) Urine Ketones Urine Occult Blood Urine Nitrite Urine Bilirubin Urine Urobilinogen Ur Leukocyte Esterase 09/09/18 09/09/18 09/09/18 04:35 04:35 04:35 WBC 4.5 RBC 3.37 L Hgb 9.7 L Hct 30.9 L MCV 91.7 MCH 28.8 MCHC 31.4 L RDW 13.0 RDW Differential 43.3 Plt Count 196 MPV 9.0 Immature Gran % (Auto) 0.200 Neut % (Auto) 52.1 Lymph % (Auto) 35.0 [place] % (Auto) 9.8 Eos % (Auto) 2.2 Baso % (Auto) 0.7 Absolute Neuts (auto) 2.3 Absolute Lymphs (auto) 1.57 Total Counted Not Reportable PT 12.2 INR 0.9 APTT 26.1 Sodium Potassium Chloride Carbon Dioxide Anion Gap BUN Creatinine Estim Creat Clear Calc Est GFR (MDRD) Af Amer Est GFR (MDRD) Non-Af BUN/Creatinine Ratio Glucose Calcium Troponin I Urine Color Yellow Urine Clarity Clear Urine pH 6.0 Ur Specific [place] 1.010 Urine Protein 30 H Urine Glucose (UA) Normal Urine Ketones Negative Urine Occult Blood Negative Urine Nitrite Negative Urine Bilirubin Negative Urine Urobilinogen Normal Ur Leukocyte Esterase 100 H Medical Necessity - Tobacco Use Smoking Status: Never smoker Tobacco Use: Non-smoker Assessment/Plan All Active Problems Pulmonary embolism (Acute) 1. Acute PE, DVTs - IVC filter placed today per Dr. Paredes. Recent brain bleed 2/2 fall. Pt with Uterine cancer. -Echo with EF 65%, RVSP 20, other mild changes per report. 2. Anemia, normocytic - trend. 3. 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 Reported spiculated pulmonary nodule that has not been worked up. On oral chemo - afinitor. Oncologist is [facility] Dr. Freeman ([place]). Prior total hysterectomy, radiation therapy. 4. Hx MS - with recent falls. PTOT evals. 6. Vertigo - echo, tele. prn antiemetics, PTOT. 7. HTN - no hx, elevated in ER - trend for now. 8. Hx HLD DVT ppx: SCDs, chemo ppx contraindicated with hx brain bleeding. DC planning: lives alone, falls. PTOT evals. This patient was seen by Bear Velazquez PA-C under the supervision of Doctor Elizabeth <Blaire Johnson - Last Filed: 09/09/18 15:24> - Physical Exam Vital Signs Temp Pulse Resp BP Pulse Ox 98.6 F 77 16 113/48 L 98 09/09/18 09:53 09/09/18 14:45 09/09/18 14:45 09/09/18 14:45 09/09/18 14:45 Oxygen Delivery Method Room Air Weight: 110 lb 3.698 oz Body Mass Index (BMI) 21.5 Intake and Output for Last 24 Hours 09/07/18 09/08/18 09/09/18 23:59 23:59 23:59 Intake Total 820 / 820 Balance 820 / 820 Laboratory Tests Past 24 Hrs 09/08/18 09/08/18 09/09/18 17:00 20:04 04:35 WBC RBC Hgb Hct MCV MCH MCHC RDW RDW Differential Plt Count MPV Immature Gran % (Auto) Neut % (Auto) Lymph % (Auto) [place] % (Auto) Eos % (Auto) Baso % (Auto) Absolute Neuts (auto) Absolute Lymphs (auto) Total Counted PT INR APTT Sodium 143 Potassium 3.8 Chloride 105 Carbon Dioxide 28.0 Anion Gap 10 BUN 16 Creatinine 0.84 Estim Creat Clear Calc 44.76 Est GFR (MDRD) Af Amer 87 Est GFR (MDRD) Non-Af 72 BUN/Creatinine Ratio 19.1 Glucose 91 Calcium 8.7 Troponin I < 0.015 < 0.015 Urine Color Urine Clarity Urine pH Ur Specific [place] Urine Protein Urine Glucose (UA) Urine Ketones Urine Occult Blood Urine Nitrite Urine Bilirubin Urine Urobilinogen Ur Leukocyte Esterase 09/09/18 09/09/18 09/09/18 04:35 04:35 04:35 WBC 4.5 RBC 3.37 L Hgb 9.7 L Hct 30.9 L MCV 91.7 MCH 28.8 MCHC 31.4 L RDW 13.0 RDW Differential 43.3 Plt Count 196 MPV 9.0 Immature Gran % (Auto) 0.200 Neut % (Auto) 52.1 Lymph % (Auto) 35.0 [place] % (Auto) 9.8 Eos % (Auto) 2.2 Baso % (Auto) 0.7 Absolute Neuts (auto) 2.3 Absolute Lymphs (auto) 1.57 Total Counted Not Reportable PT 12.2 INR 0.9 APTT 26.1 Sodium Potassium Chloride Carbon Dioxide Anion Gap BUN Creatinine Estim Creat Clear Calc Est GFR (MDRD) Af Amer Est GFR (MDRD) Non-Af BUN/Creatinine Ratio Glucose Calcium Troponin I Urine Color Yellow Urine Clarity Clear Urine pH 6.0 Ur Specific [place] 1.010 Urine Protein 30 H Urine Glucose (UA) Normal Urine Ketones Negative Urine Occult Blood Negative Urine Nitrite Negative Urine Bilirubin Negative Urine Urobilinogen Normal Ur Leukocyte Esterase 100 H Assessment/Plan Patient seen and examined. Patient admitted after an incidental finding of PE. She has a history of uterine cancer with metastasis to the peritoneum and was having routine imaging for follow-up on the PE was picked up. She has been totally asymptomatic. She is for filter IVC placement today is going to be anticoagulated on account of her recent brain bleed due to a fall. Patient had no complaints. Review of systems otherwise negative. Labs and vitals reviewed. o/e: Vital Signs Height 5 ft Weight: 110 lb 3.698 oz Weight in Pounds 110.2 lbs Pulse Ox 98 Temperature 98.6 F Pulse Rate 77 Respiratory Rate 16 Blood Pressure 113/48 Blood Pressure Position Supine General: Alert, Oriented x3, Cooperative HEENT: Atraumatic, PERRLA, EOMI, Normocephalic Neck: Supple, No JVD, Negative Carotid Bruits Lungs: Clear to auscultation, Normal air movement Cardiovascular: Regular rate, No murmurs Abdomen: Bowel Sounds Present, Soft, Non Tender Extremities: No edema, Capillary Refill Less than 3 Seconds Skin: No rashes, No breakdown Musculoskeletal: No Tenderness to Palpation of Joints or Extremities Neurological: Cranial nerves II-XII grossly intact Psych/Mental Status: Normal Affect, Appropriate, Alert and oriented to time, place, person, mood and affect Plan is for IVC filter today. Duplex of her lower extremities also revealed acute deep vein thrombosis in the right common femoral vein. She also had acute deep vein thrombosis in the left femoral vein and the left popliteal vein and left tibioperoneal trunk. Rest of the left lower extremity and right lower extremity deep vein systems are patent and compressible. Fall precautions on account of history of falls and brain bleed. Hemoglobin is also 9.7. Was 10.4 on admission. We will continue monitoring consider transfusion if it falls any further to <7 Rest of management as per Bear Velazquez PA-C's note which I have reviewed and agree with. Code Visit Inpatient E&M: 02660 Subs Hosp L3
[2018-09-09] MEDS: Multivitamins,Therapeutic Tablet 1 TABLET PO (13:49)
[2018-09-09] MEDS: Nitrofurantoin Macrocrystals 100 MG Capsule PO (13:49)
[2018-09-09] MEDS: Acetaminophen 325 MG Tablet 650 MG PO (13:54)
[2018-09-09] MEDS: Timolol 0.5% 5ML OPTH.BTL 1 DRP EACH EYE (16:57)
[2018-09-09] MEDS: Latanoprost 0.005% 1 Bottle 1 DRP EACH EYE (22:02)
[2018-09-09] MEDS: Atorvastatin Calcium 10 MG Tablet PO (22:05)
[2018-09-09] MEDS: clonazePAM 1 MG Tablet PO (22:16)
[2018-09-10 00:21] VITALS: PULSE 72
[2018-09-10 03:57] VITALS: PULSE 78
[2018-09-10 04:00] VITALS: BP 137/77; PULSE 79; RESP 16; TEMP 36.9; O2SAT 95
[2018-09-10] MEDS: 0.9% NaCl Peripheral Flush Adult/Peds IV ×2 (04:40→04:43)
[2018-09-10 05:09] LABS: Absolute Lymphocyte Count 1.29 X10^3/ul (0.83-4.51); Absolute Neutrophil Count 3.3 X10^3/uL (2.0-7.7); Basophil# 0.01 X10^3/uL; Basophil% 0.2 % (0-1); Eosinophils% 1.9 % (0-5); Hemoglobin 9.6 g/dl (12.0-15.0); Lymphocyte # 1.29 X10^3/ul (4.0); Lymphocyte % 24.6 % (19-41); Mean Corpuscular Hgb 28.3 pg (27.0-32.0); Mean Corpuscular Volume 91.4 fL (81-99); Mean Platelet Vol. 9.2 fl (6.2-12.0); Monocyte# 0.53 X10^3/uL; Monocyte% 10.1 % (0-10); POSITIVE COUNT NO; POSITIVE DIFFERENTIAL NO; POSITIVE MORPHOLOGY NO; Platelet Count 177 K/mm3 (150-450); RBC Distribution Width CV 12.9 % (11.6-14.6); RBC Distribution Width SD 43.2 fl (35.1-43.9); Red Blood Count 3.39 M/mm3 (4.2-5.4); White Blood Count 5.2 K/mm3 (4.4-11.0)
[2018-09-10 05:14] LABS: Anion Gap 11 (5-15); BUN 16 mg/dL (7-18); BUN/Creat Ratio 21.4 RATIO (10-20); Calcium,Total 8.6 mg/dL (8.5-10.1); Chloride 106 mmol/L (98-107); Creatinine, Serum 0.75 mg/dL (0.55-1.02); EST Glomerular Filtration Rate 81 mL/min (>60); Est Glom Filt Rate - Afr Amer 99 mL/min (>60); Glucose 107 mg/dL (74-106); Potassium 3.8 mmol/L (3.5-5.1); Sodium Level 143 mmol/L (136-145)
--- NOTE | 2018-09-10 07:06 | DCINST_ITS ---
Discharge Diet: No Restrictions - Pain medication may cause nausea. You should typically eat light foods as you take your pain medication. Discharge Activity: Return to Normal Activity, May Drive, May Shower - Leave the bandage on for 2 days. When you remove the bandage, leave the steri-strips intact for one week Additional Dressing/Incision Instructions:: Leave the bandage on for 2 days. When you remove the bandage, leave the steri-strips intact for one week Additional Instructions: Please inquire of your Oncologist on the possibility of complete clot resolution and possibility of filter removal. Allergies/Adverse Reactions: Allergies codeine Allergy (Verified 09/08/18 12:58) Hives methylprednisolone Allergy (Verified 09/08/18 12:58) Hives Sulfa (Sulfonamide Antibiotics) Allergy (Verified 09/08/18 12:58) Hives erythromycin base Adverse Reaction (Verified 09/08/18 16:10) Upset Stomach Medications to take at Discharge Atorvastatin Calcium [Lipitor] 10 mg PO QHS 09/08/18 Brimonidine 0.15% [Alphagan P 0.15%] 1 drop EACH EYE BID 09/08/18 Cholecalciferol (VIT D3) [Vitamin D] 1,000 unit PO DAILY 09/08/18 Clonazepam 1 mg PO QHS PRN PRN 09/08/18 Dexamethasone 10 ml PO TID 09/08/18 Escitalopram Oxalate [Lexapro] 10 mg PO DAILY 09/08/18 Everolimus [Afinitor] 10 mg PO DAILY 09/08/18 Latanoprost 1 drop EACH EYE QHS 09/08/18 Letrozole 2.5 mg PO DAILY 09/08/18 Multivitamins,Therapeutic [Multivitamin] 1 tablet PO DAILY 09/08/18 Nitrofurantoin Monohyd/M-Cryst [Nitrofurantoin [place]-Mcr 100 mg] 100 mg PO DAILY 09/08/18 Ondansetron HCl 8 mg PO Q8H PRN PRN 09/08/18 Sertraline HCl 100 mg PO DAILY 09/08/18 Timolol Maleate 1 drop EACH EYE BID 09/08/18 Primary Care Physician: Tee Monroe MD [Primary Care Provider] - Test Results: Test results from this visit will be discussed in further detail at your follow- up appointment, if applicable. Please Follow Up With: René Paredes MD - [phone] When: Office appt for filter removal per Oncology please
--- NOTE | 2018-09-10 07:06 | PCM.PN.SRG ---
Patient Problems: Active and Suspected Problems Pulmonary embolism (Acute) Subjective: Pt without complaint Would like to go home - Physical Exam Neck: - - supple, NT, wound clean Vital Signs Temp Pulse Resp BP Pulse Ox 98.5 F 79 16 137/77 H 95 09/10/18 04:00 09/10/18 04:00 09/10/18 04:00 09/10/18 04:00 09/10/18 04:00 Oxygen Delivery Method Room Air Weight: 110 lb 3.698 oz Body Mass Index (BMI) 21.5 Intake and Output for Last 24 Hours 09/08/18 09/09/18 09/10/18 23:59 23:59 23:59 Intake Total 820 / 820 Balance 820 / 820 Laboratory Tests Past 24 Hrs 09/10/18 09/10/18 04:40 04:40 WBC 5.2 RBC 3.39 L Hgb 9.6 L Hct 31.0 L MCV 91.4 MCH 28.3 MCHC 31.0 L RDW 12.9 RDW Differential 43.2 Plt Count 177 MPV 9.2 Immature Gran % (Auto) 0.200 Neut % (Auto) 63.0 Lymph % (Auto) 24.6 [place] % (Auto) 10.1 H Eos % (Auto) 1.9 Baso % (Auto) 0.2 Absolute Neuts (auto) 3.3 Absolute Lymphs (auto) 1.29 Total Counted Not Reportable Sodium 143 Potassium 3.8 Chloride 106 Carbon Dioxide 26.0 Anion Gap 11 BUN 16 Creatinine 0.75 Estim Creat Clear Calc 37.60 Est GFR (MDRD) Af Amer 99 Est GFR (MDRD) Non-Af 81 BUN/Creatinine Ratio 21.4 H Glucose 107 H Calcium 8.6 Medical Necessity - Tobacco Use Smoking Status: Never smoker Tobacco Use: Non-smoker Assessment/Plan All Active Problems Pulmonary embolism (Acute) I have instructed the pt this is a retrievable filter and once her risk of DVT/PE has resolved that the filter should be removed. She is aware. Office appt can be made at that time. I anticipate that Hematology/oncology will make the decision re: clot resolution and risk.
[2018-09-10 07:37] VITALS: PULSE 75
--- NOTE | 2018-09-10 09:26 | DCINST_ITS ---
- Discharge Diagnoses Current Active Problems: Current Active and Chronic Problems Brain bleed (Chronic) Multiple sclerosis (Chronic) Uterine cancer (Chronic) Pulmonary nodule (Chronic) Pulmonary embolism (Acute) You will use the following diet at home:: Cardiac Your food should be the consistency of: Regular Your liquids should be the consistency of: Regular/Thin Discharge Activity: Return to Normal Activity, May Drive, May Shower - Leave the bandage on for 2 days. When you remove the bandage, leave the steri-strips intact for one week Weight Bearing Status: Weight bearing as tolerated Call your doctor if you observe: Shortness of breath, Swelling in the ankles, Chest pain Additional Dressing/Incision Instructions:: Leave the bandage on for 2 days. When you remove the bandage, leave the steri-strips intact for one week Instructions: After Inferior Vena Cava Filter Placement, Pulmonary Embolism, Complications of Deep Vein Thrombosis Allergies/Adverse Reactions: Allergies codeine Allergy (Verified 09/08/18 12:58) Hives methylprednisolone Allergy (Verified 09/08/18 12:58) Hives Sulfa (Sulfonamide Antibiotics) Allergy (Verified 09/08/18 12:58) Hives erythromycin base Adverse Reaction (Verified 09/08/18 16:10) Upset Stomach Medications to take at Discharge Atorvastatin Calcium [Lipitor] 10 mg PO QHS 09/08/18 Brimonidine 0.15% [Alphagan P 0.15%] 1 drop EACH EYE BID 09/08/18 Cholecalciferol (VIT D3) [Vitamin D3] 1,000 unit PO DAILY 09/08/18 Clonazepam 1 mg PO QHS PRN PRN 09/08/18 Dexamethasone 10 ml PO TID 09/08/18 Escitalopram Oxalate [Lexapro] 10 mg PO DAILY 09/08/18 Everolimus [Afinitor] 10 mg PO DAILY 09/08/18 Latanoprost 1 drop EACH EYE QHS 09/08/18 Letrozole 2.5 mg PO DAILY 09/08/18 Multivitamins,Therapeutic [Multivitamin] 1 tablet PO DAILY 09/08/18 Nitrofurantoin Monohyd/M-Cryst [Nitrofurantoin [place]-Mcr 100 mg] 100 mg PO DAILY 09/08/18 Ondansetron HCl 8 mg PO Q8H PRN PRN 09/08/18 Sertraline HCl 100 mg PO DAILY 09/08/18 Timolol Maleate 1 drop EACH EYE BID 09/08/18 Primary Care Physician: Tee Monroe MD [Primary Care Provider] - Please follow up with your Primary Care Physician in: one week Test Results: Test results from this visit will be discussed in further detail at your follow- up appointment, if applicable. Please Follow Up With: René Paredes MD - [phone] When: Office appt for filter removal per Oncology please Please Follow Up With: Jason Dorado MD When: 1-2 weeks; or follow up with your oncologist about PE Proposed Discharge Date: 09/10/18
--- NOTE | 2018-09-10 09:26 | DS.PCM_ITS ---
Discharge Date and Diagnosis Date of Admission: 09/08/18 Date of Discharge: 09/10/18 - Primary Discharge Diagnosis Active and Suspected Problems Pulmonary embolism (Acute) - Secondary Discharge Diagnosis Chronic Problems Brain bleed (Chronic) Multiple sclerosis (Chronic) Uterine cancer (Chronic) Pulmonary nodule (Chronic) Hospital Course and Treatment Imaging Results: Diagnostic Data Brain CT 09/08/18 13:27 IMPRESSION: Chronic involutional changes of the brain. Electronically Signed: Andrea Hutson MD at 14:33 EST Tel [phone], Service support , Interpretation Summary Acute deep vein thrombosis is noted in the right common femoral vein. Acute deep vein thrombosis is noted in the right femoral vein. The remainder of the right lower extremity deep venous system is patent and compressible. Acute deep vein thrombosis is noted in the left femoral vein. Acute deep vein thrombosis is noted in the left popliteal vein. Acute deep vein thrombosis is noted in the left tibio-peroneal trunk. The remainder of the left lower extremity deep venous system is patent and compressible. The great saphenous veins are patent and compressible bilaterally. Interpretation Summary Left ventricular systolic function is normal. The estimated ejection fraction is 65 %. The global longitudinal strain = -27 % (normal). A moderator band is seen in the right ventricle. Mild diffuse mitral valve thickening. Trivial mitral valve insufficiency. Trivial tricuspid valve insufficiency. Mild diffuse aortic valve thickening. Trivial pulmonic valve insufficiency. Right ventricular systolic pressure estimated to be 20 mmHg. No evidence for diastolic dysfunction. general surgery- Dr Jung Paredes Operations: None Procedures: IVC filter placement Summary of Care Provided: The patient is a 72 year old F with a past medical history of uterine cancer, pulmonary nodule, multiple sclerosis and recent brain bleed. She was admitted after an incidental finding of pulmonary emboli on routine imaging. Patient has a history of uterine cancer with peritoneal metastasis and a spiculated pulmonary nodule. She is status post hysterectomy and radiation. Patient had routine CT scans of her lungs every 3 months and so during such scanning, an incidental pulmonary emboli was found. She had no symptoms whatsoever. She had a recent history of brain bleed when she fell and hit her head and was noted to have a frontal intraparenchymal hemorrhage and subdural hemorrhage. Patient was therefore admitted to be managed for pulmonary embolism likely due to malignancy. She could not be anticoagulated on account of history of brain bleed and so was admitted for IVC placement. Duplex of her lower extremities revealed acute deep vein thrombosis in the right common femoral vein and in the right femoral vein as well as acute deep vein thrombosis in the left femoral vein and left popliteal vein as well as left tibioperoneal trunk. 2D echo done showed EF of 65% with normal left ventricular systolic function and RVSP of 20 mmHg no evidence of diastolic dysfunction. Patient had IVC filter placed on 09/09/2018. She remained stable after the procedure and was discharged home on 09/10/2018. She is to follow-up with her PCP, oncologist and general surgery. Of note, this filter was a retrievable filter and plan was for her to be removed after her risk of DVT and PE as per her oncologist was eliminated. She is therefore to follow-up with her oncologist. Patient was seen and examined prior to discharge. She had no complaints and felt very well. She denied any fever, any chills, any palpitations, any cough or chest pain, any abdominal pain, any diarrhea or vomiting. 12 point review of systems otherwise negative. Labs and vitals reviewed. Home medications reviewed and reconciled. On examination Vital Signs Height 5 ft Weight: 110 lb 3.698 oz Weight in Pounds 110.2 lbs Pulse Ox 97 Temperature 98.3 F Pulse Rate 80 Respiratory Rate 16 Blood Pressure 132/68 Blood Pressure Position Semi-Fowlers General: Alert, Oriented x3, Cooperative HEENT: Atraumatic, PERRLA, EOMI, Normocephalic Neck: Supple, No JVD, Negative Carotid Bruits Lungs: Clear to auscultation, Normal air movement Cardiovascular: Regular rate, No murmurs Abdomen: Bowel Sounds Present, Soft, Non Tender Extremities: No edema, Capillary Refill Less than 3 Seconds Skin: No rashes, No breakdown Musculoskeletal: No Tenderness to Palpation of Joints or Extremities Neurological: Cranial nerves II-XII grossly intact Psych/Mental Status: Normal Affect, Appropriate, Alert and oriented to time, place, person, mood and affect - Physical Exam Vital Signs Temp Pulse Resp BP Pulse Ox 98.5 F 75 16 137/77 H 95 09/10/18 04:00 09/10/18 07:37 09/10/18 04:00 09/10/18 04:00 09/10/18 04:00 Oxygen Delivery Method Room Air Weight: 110 lb 3.698 oz Body Mass Index (BMI) 21.5 Intake and Output for Last 24 Hours 09/08/18 09/09/18 09/10/18 23:59 23:59 23:59 Intake Total 820 / 820 Balance 820 / 820 Laboratory Tests Past 24 Hrs 09/10/18 09/10/18 04:40 04:40 WBC 5.2 RBC 3.39 L Hgb 9.6 L Hct 31.0 L MCV 91.4 MCH 28.3 MCHC 31.0 L RDW 12.9 RDW Differential 43.2 Plt Count 177 MPV 9.2 Immature Gran % (Auto) 0.200 Neut % (Auto) 63.0 Lymph % (Auto) 24.6 Barton % (Auto) 10.1 H Eos % (Auto) 1.9 Baso % (Auto) 0.2 Absolute Neuts (auto) 3.3 Absolute Lymphs (auto) 1.29 Total Counted Not Reportable Sodium 143 Potassium 3.8 Chloride 106 Carbon Dioxide 26.0 Anion Gap 11 BUN 16 Creatinine 0.75 Estim Creat Clear Calc 37.60 Est GFR (MDRD) Af Amer 99 Est GFR (MDRD) Non-Af 81 BUN/Creatinine Ratio 21.4 H Glucose 107 H Calcium 8.6 Discharge Diet: No Restrictions - Pain medication may cause nausea. You should typically eat light foods as you take your pain medication. Discharge Activity: Return to Normal Activity, May Drive, May Shower - Leave the bandage on for 2 days. When you remove the bandage, leave the steri-strips intact for one week Weight Bearing Status: Weight bearing as tolerated Call your doctor if you observe: Shortness of breath, Swelling in the ankles, Chest pain Additional Dressing/Incision Instructions:: Leave the bandage on for 2 days. When you remove the bandage, leave the steri-strips intact for one week Home Medications: Medications to take at Discharge Atorvastatin Calcium [Lipitor] 10 mg PO QHS 09/08/18 Brimonidine 0.15% [Alphagan P 0.15%] 1 drop EACH EYE BID 09/08/18 Cholecalciferol (VIT D3) [Vitamin D3] 1,000 unit PO DAILY 09/08/18 Clonazepam 1 mg PO QHS PRN PRN 09/08/18 Dexamethasone 10 ml PO TID 09/08/18 Escitalopram Oxalate [Lexapro] 10 mg PO DAILY 09/08/18 Everolimus [Afinitor] 10 mg PO DAILY 09/08/18 Latanoprost 1 drop EACH EYE QHS 09/08/18 Letrozole 2.5 mg PO DAILY 09/08/18 Multivitamins,Therapeutic [Multivitamin] 1 tablet PO DAILY 09/08/18 Nitrofurantoin Monohyd/M-Cryst [Nitrofurantoin Barton-Mcr 100 mg] 100 mg PO DAILY 09/08/18 Ondansetron HCl 8 mg PO Q8H PRN PRN 09/08/18 Sertraline HCl 100 mg PO DAILY 09/08/18 Timolol Maleate 1 drop EACH EYE BID 09/08/18 Primary Care Physician: Tee Monroe MD [Primary Care Provider] - Please follow up with your Primary Care Physician in: one week Please Follow Up With: René Paredes MD - [phone] When: Office appt for filter removal per Oncology please Please Follow Up With: Jason Dorado MD When: 1-2 weeks; or follow up with your oncologist about PE Patient Instructions: Complications of Deep Vein Thrombosis, Pulmonary Embolism, After Inferior Vena Cava Filter Placement Additional Instructions: Please inquire of your Oncologist on the possibility of complete clot resolution and possibility of filter removal. Disposition: Home Minutes spent on discharge:: 35 Patient Condition:: Stable Medical Necessity - Tobacco Use Smoking Status: Never smoker Tobacco Use: Non-smoker Meaningful Use Info Meaningful Use Diagnoses (Choose all that apply): VTE - VTE Anticoag overlap given w/in hospital stay or rx'd at dc?: No Pt receive overlap for 5 days?: No Reason overlap not ordered, prescribed, or given for 5 days: Medical Contraindication - recent brain hemorrhage Code Visit Inpatient E&M: 50310 Disch Hosp
[2018-09-10 09:48] VITALS: BP 132/68; PULSE 80; RESP 16; TEMP 36.8; O2SAT 97
[2018-09-10] MEDS: Multivitamins,Therapeutic Tablet 1 TABLET PO (10:07)
[2018-09-10] MEDS: Nitrofurantoin Macrocrystals 100 MG Capsule PO (10:07)
[2018-09-10] MEDS: Timolol 0.5% 5ML OPTH.BTL 1 DRP EACH EYE (10:11)
== END 2018-09-10 12:08 | disposition home or self-care (01) | DRG 167 ==
LOC: ED 15:00 → PCU 15:40
PROVIDERS: Surgery; Emergency Provider Emergency Medicine; Family Provider Family Medicine; PCP Family Medicine; Visit Provider Student in an Organized Health Care Education/Training Program
DX: I26.99 Other pulmonary embolism without acute cor pulmonale (principal); I82.413 Acute embolism and thrombosis of femoral vein, bilateral; I82.432 Acute embolism and thrombosis of left popliteal vein; I82.492 Acute embolism and thrombosis of other specified deep vein of left lower extremity; C78.6 Secondary malignant neoplasm of retroperitoneum and peritoneum; Z79.899 Other long term (current) drug therapy; G35 Multiple sclerosis; Z92.3 Personal history of irradiation; Z90.710 Acquired absence of both cervix and uterus; Z85.42 Personal history of malignant neoplasm of other parts of uterus; S06.5X9D Traumatic subdural hemorrhage with loss of consciousness of unspecified duration, subsequent encounter; W19.XXXD Unspecified fall, subsequent encounter
CPT/HCPCS: 36415; 36591; 37191; 70450; 76937; 80048; 81002; 84484; 85025; 85610; 85730; 93005; 93306; 93970; 97161; 97165; 99152; 99153; 99284; J7040; Q9967; A4216; C1769; C1880; C1894; J2405

== ENCOUNTER 2021-10-28 17:54 | Emergency (ER) | payer MEDICARE, SELFPAY ==
[2021-10-28 17:55] VITALS: BP 136/87; PULSE 56; RESP 16; TEMP 36; O2SAT 97; BMI 23.0
--- NOTE | 2021-10-28 18:07 | CT_ITS ---
EXAM: CT SPINE - CERVICAL WITHOUT IV REASON FOR EXAM: Female, 75 years old. posterior laceration PAIN fall Individualized dose optimization techniques were used for this CT. TECHNIQUE: Multiplanar images were obtained of the cervical spine. IV contrast was not utilized. COMPARISON: None. FINDINGS: The vertebral bodies do maintain their height. The odontoid process is intact. There is no anterolisthesis or fracture. No pre-vertebral soft tissue swelling is seen. The intravertebral disc height is lost. There are scattered lymph nodes in the neck. There are degenerative changes of the osseous structures. There is bilateral facet arthropathy. There are scattered levels of foraminal stenosis. There are vascular calcifications. There is mild straightening of the normal cervical lordosis. This can suggest neck strain. 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 CT/Spine Cervical without Contras IMPRESSION: Degenerative changes of the cervical spine. There is mild straightening of the normal cervical lordosis. This can suggest neck strain. Electronically Signed: Real Summers MD at 18:49 EST ,
--- NOTE | 2021-10-28 18:07 | CT_ITS ---
STUDY: CT BRAIN WITHOUT CONTRAST REASON FOR EXAM: Female, 75 years old. posterior laceration pain fall TECHNIQUE: Transaxial CT imaging of the brain was performed without administration of intravenous contrast material. Individualized dose optimization techniques were used for this CT. COMPARISON: None FINDINGS: Normal calvarium. There is no underlying fracture. Soft tissue laceration of the scalp- posteriorly. 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 Normal size ventricles and extra-axial spaces for the patient''s age. Normal white matter tracts of the cerebral hemispheres. 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 Normal brainstem. Normal cerebellum. There is no intracranial hemorrhage. There are no findings of an acute ischemic infarction. Normal visualized paranasal sinuses. ASPECTS 10 CT/Brain/Head without Contrast IMPRESSION: There are no acute intracranial findings. There is no underlying fracture. Soft tissue laceration of the scalp- posteriorly Electronically Signed: Real Summers MD at 18:50 EST ,
[2021-10-28] MEDS: Diphth,Pertuss(Acell),Tet Vac 0.5 ML Vial IM (18:14)
[2021-10-28] MEDS: Lidocaine 1% (20 ml mdv) 20 ML Vial INFILT (18:15)
--- NOTE | 2021-10-28 18:35 | RAD_ITS ---
STUDY: X-RAY CHEST REASON FOR EXAM: Female, 75 years old. CHEST PAIN injury TECHNIQUE: XR Chest 2 Views COMPARISON: None FINDINGS: There is no demonstrated pleural abnormality. There is an elevated right hemidiaphragm. There is a right Port-A-Cath and/or mediport in place. The tip is in the axilla. Normal size heart. Normal mediastinum and iva. Normal visualized pulmonary arteries. There is atherosclerotic calcification of the aortic arch with tortuosity. There are diffuse degenerative changes of the visualized thoracic spine. There is degenerative osteoarthritis of the bilateral shoulders. An IVC filter is in place. Scoliosis of the lumbar spine. RAD/Chest PA and Lateral IMPRESSION: There has been no change in the appearance of the chest since the prior study. Electronically Signed: Real Summers MD at 19:10 EST ,
--- NOTE | 2021-10-28 19:37 | ED.VIS.FALL ---
HPI HPI - Fall History of Present Illness Chief Complaint: Fall Informant: patient and family Occured/Mechanism Occurred: Today Pain/Injury Pain Location: head and back Current Severity: Mild Maximum Severity: Moderate Narrative Narrative: Patient presents secondary to fall. She is currently staying with her son. She has had frequent falls recently with problems with her balance. She has 3 doctors appointments this week. She lost her balance and fell today striking the back of her head. She is a 3 cm laceration of the posterior parietal scalp. She also complains of pain to her right lower ribs posteriorly. No loss of consciousness. She is not on anticoagulants. [facility] Medical History (Updated 10/28/21 @ 20:[address] Deborah Cardoza MD) Brain bleed Multiple sclerosis Presence of IVC filter Pulmonary embolism Uterine cancer Home Medications atorvastatin 10 mg PO QHS 09/08/18 [History Last Taken 09/07/18] brimonidine 1 drp EACH EYE BID 09/08/18 [History Last Taken 09/07/18] cholecalciferol (vitamin D3) [Vitamin D3] 1,000 unit PO DAILY 09/08/18 [History Last Taken 09/07/18] clonazepam 1 mg PO QHS PRN PRN 09/08/18 [History Last Taken Unknown] dexamethasone 10 ml PO TID 09/08/18 [History Last Taken 09/08/18] escitalopram oxalate 10 mg PO DAILY 09/08/18 [History Last Taken 09/07/18] everolimus (antineoplastic) [Afinitor] 10 mg PO DAILY 09/08/18 [History Last Taken 09/08/18] latanoprost 1 drp EACH EYE QHS 09/08/18 [History Last Taken 09/07/18] letrozole 2.5 mg PO DAILY 09/08/18 [History Last Taken 09/07/18] multivitamin with folic acid [Thera] 1 tab PO DAILY 09/08/18 [History Last Taken 09/08/18] nitrofurantoin monohyd/m-cryst 100 mg PO DAILY 09/08/18 [History Last Taken 09/08/18] ondansetron HCl 8 mg PO Q8H PRN PRN 09/08/18 [History Last Taken 09/07/18] sertraline 100 mg PO DAILY 09/08/18 [History Last Taken 09/08/18] timolol maleate 1 drp EACH EYE BID 09/08/18 [History Last Taken 09/07/18] Allergy/AdvReac Type Severity Reaction Status Date / Time codeine Allergy Hives Verified 09/08/18 12:58 methylprednisolone Allergy Hives Verified 09/08/18 12:58 Sulfa (Sulfonamide Allergy Hives Verified 09/08/18 12:58 Antibiotics) erythromycin base AdvReac Upset Verified 09/08/18 16:10 Stomach Social History Smoking Status: Never smoker ROS ROS ED Constitutional Constitutional ED: Denies chills or fever(s) Eyes Eyes: Denies blurry vision or change in vision ENT ENT ED: Denies rhinorrhea or sore throat Cardiovascular Cardiovascular: Denies chest pain or palpitations Respiratory/Chest Respiratory/Chest: Denies cough or dyspnea Gastrointestinal Gastrointestinal: Denies abdominal pain or vomiting Genitourinary Genitourinary ED: Denies dysuria Musculoskeletal Musculoskeletal: Reports back pain Integumentary Reports other Details: Scalp laceration Neurologic Neurologic: Reports headache(s) Endocrine Endocrinology: Denies polydipsia or polyuria Hematologic/Lymphatic Hematologic/Lymphatic: Denies easy bleeding or easy bruising Allergic/Immunologic Allergic/Immunologic ED: Denies urticaria EXAM Physical Exam Const Vital Signs: 10/28/21 17:55 Temperature 96.8 F L Temperature Source Temporal Pulse Rate 56 L Respiratory Rate 16 Blood Pressure 136/87 H Blood Pressure Mean 103 Pulse Ox 97 Oxygen Delivery Method Room Air Positive well nourished and well developed General Appearance ED: well developed HEENT Reports normocephalic HEENT Narrative: 3 cm laceration to the right posterior parietal scalp. Bleeding well controlled. Eyes PERRL and EOMs intact bilaterally Neck full ROM and supple Chest Wall inspection of chest normal and palpation of chest normal Resp normal respiratory effort and clear to auscultation bilaterally Cardio regular rate and regular rhythm GI non-tender Palpation: soft Back/Spine Back/Spine Narrative: Mild tenderness to the right lower ribs posteriorly. No overlying abrasion or ecchymosis. Extremity normal to inspection Neuro oriented x3 Neuro Narrative: No focal neurologic deficits. Sensorium / Orientation: alert Psych mental status grossly normal Skin Skin Narrative: Scalp laceration as above. MDM MDM MDM Narrative Medical decision making narrative: Patient sent for CT scan of the head and C-spine. Chest x-ray ordered. Tetanus update provided. Radiography Diagnostic Testing: Clinical Impression(s) from Imaging Studies Brain CT 10/28/21 18:07 IMPRESSION: There are no acute intracranial findings. There is no underlying fracture. Soft tissue laceration of the scalp- posteriorly Electronically Signed: Real Summers MD at 18:50 EST , Cervical Spine CT 10/28/21 18:07 IMPRESSION: Degenerative changes of the cervical spine. There is mild straightening of the normal cervical lordosis. This can suggest neck strain. Electronically Signed: Real Summers MD at 18:49 EST , Chest X-Ray 10/28/21 18:35 IMPRESSION: There has been no change in the appearance of the chest since the prior study. Electronically Signed: Real Summers MD at 19:10 EST , Treatment and Re-Evaluation Comments:: Chest x-ray per my interpretation reveals no acute findings. Radiologist interpretation is reviewed. CT scans of the brain and C-spine revealed no acute findings. Scalp laceration repaired with 3 checo. Please see procedure note for details. Patient is to follow-up in 1 week for staple removal. Procedures Lacerations Parietal scalp laceration: Length: 1.18 in Depth: Sub Q Shape: Linear Laceration repair: Lidocaine and Local Number of Sutures/[place]: 3 Comment: 3 cc 1% lidocaine used locally for anesthesia. Wound cleansed and irrigated. 3 checo used to close the wound. Discharge Plan Triage Chief Complaint: Fall ED Provider: Deborah Cardoza Dx/Rx/DC Orders Clinical Impression: Fall, Scalp laceration, Back contusion Instructions: ED Mechanical Fall, ED Head Injury (Adult), ED Laceration Scalp Stitches or Checo Prescriptions: No Action latanoprost 2.5 ML Drops 1 drp Each Eye QHS RF: 0 atorvastatin 10 MG tablet 10 mg PO QHS RF: 0 ondansetron HCl 8 MG tablet 8 mg PO Q8H PRN PRN (Reason: Nausea) RF: 0 sertraline 100 MG tablet 100 mg PO DAILY RF: 0 clonazepam 1 MG tablet 1 mg PO QHS PRN PRN (Reason: Anxiety) RF: 0 dexamethasone 0.5 MG/5 ML Elixir 10 ml PO TID RF: 0 letrozole 2.5 MG tablet 2.5 mg PO DAILY RF: 0 timolol maleate 5 ML Drops 1 drp Each Eye BID RF: 0 brimonidine 0.15 % bottle 1 drp Each Eye BID RF: 0 escitalopram oxalate 10 MG tablet 10 mg PO DAILY RF: 0 nitrofurantoin monohyd/m-cryst 100 MG capsule 100 mg PO DAILY RF: 0 cholecalciferol (vitamin D3) [Vitamin D3] 1,000 UNIT tablet 1,000 unit PO DAILY RF: 0 everolimus (antineoplastic) [Afinitor] 10 MG tablet 10 mg PO DAILY RF: 0 multivitamin with folic acid [Thera] 1 TABLET tablet 1 tab PO DAILY RF: 0 Primary Care Provider: Rosmery Grady Referrals: Rosmery Grady MD [Primary Care Provider] - 7 Days for suture removal Disposition Disposition: Home, Self Care Discharge Date/Time: 10/28/21 19:48
== END 2021-10-28 19:48 | disposition home or self-care (01) ==
PROVIDERS: Emergency Provider Emergency Medicine; PCP Internal Medicine; Visit Provider Emergency Medicine
DX: S01.01XA Laceration without foreign body of scalp, initial encounter (principal); G35 Multiple sclerosis; W01.10XA Fall on same level from slipping, tripping and stumbling with subsequent striking against unspecified object, initial encounter; Y92.89 Other specified places as the place of occurrence of the external cause; S30.0XXA Contusion of lower back and pelvis, initial encounter; R29.6 Repeated falls; Z79.899 Other long term (current) drug therapy
CPT/HCPCS: 12002; 70450; 71046; 72125; 90471; 90715; 99282

== ENCOUNTER 2022-08-31 13:34 | Inpatient (IN) | payer MEDICARE, SELFPAY ==
[2022-08-31] VITALS (7 sets, daily range): BP systolic 111–139; BP diastolic 62–76; PULSE 57–96; RESP 16–18; TEMP 36.7–37.1; O2SAT 96–100; BMI 19.8; BMI 21.0
--- NOTE | 2022-08-31 15:12 | EKG12_ITS ---
Test Reason : SOB Blood Pressure : / mmHG Vent. Rate : 089 BPM Atrial Rate : 089 BPM P-R Int : 154 ms QRS Dur : 068 ms QT Int : 348 ms P-R-T Axes : 051 -20 025 degrees QTc Int : 423 ms Sinus rhythm with Premature atrial complexes Minimal voltage criteria for LVH, may be normal variant ( R in aVL ) Poor R wave progression Confirmed by ARIAN SAN, DOMO ([id number]), editor news FABIAN VIERA ([id number]) on 09/02/2022 9:21:32 AM Referred By: Confirmed By:DOMO DON MD
--- NOTE | 2022-08-31 15:13 | ED.VIS.DYS ---
HPI History of Present Illness Chief Complaint: Shortness of Breath Narrative Narrative: 76-year-old female presenting with dyspnea. She states this started just after [place] and she had a fever, viral symptoms. She did initially have some nausea and vomiting and now currently has a little bit of diminished p.o. intake but is improving. She states she has been recovering from it. She does have history of blood clots but also has an IVC filter placed by Dr. Paredes about 4 years ago. Patient does not have any chest pain. She states that she does have a history of CHF. She is on Lasix for this. Patient states that she knows that he has lost a couple of pounds. She was seen Wednesday by her primary care doctor who did blood work and her hemoglobin was 11.0. They report that on 08/03 it was 13.5. Patient admits to having some blood in the stool but was told by her primary care physician it was excoriation around her rectum. She reports that she no longer has any blood in her stool. Patient also currently is being treated for UTI with Cipro. They did a home UTI test, however the patient was unable to give a urine sample in the office. She has history of UTI and delirium was treated empirically. [facility] Medical History Brain bleed Multiple sclerosis Presence of IVC filter Pulmonary embolism Uterine cancer Home Medications atorvastatin 10 mg tablet 10 mg PO QHS cholesterol lowering 09/08/18 [History Last Taken 09/07/18] brimonidine 0.15 % eye drops 1 drp BID eye health 09/08/18 [History Last Taken 09/07/18] cholecalciferol (vitamin D3) 25 mcg (1,000 unit) tablet (Vitamin D3) 1,000 unit PO DAILY supplement 09/08/18 [History Last Taken 09/07/18] clonazepam 1 mg tablet 1 mg PO QHS PRN PRN Anxiety 09/08/18 [History Last Taken Unknown] dexamethasone 0.5 mg/5 mL oral elixir 10 ml PO TID steroid 09/08/18 [History Last Taken 09/08/18] escitalopram oxalate 10 mg tablet 10 mg PO DAILY mental health 09/08/18 [History Last Taken 09/07/18] everolimus (antineoplastic) 10 mg tablet (Afinitor) 10 mg PO DAILY chemo 09/08/18 [History Last Taken 09/08/18] latanoprost 0.005 % eye drops 1 drp QHS eye health 09/08/18 [History Last Taken 09/07/18] letrozole 2.5 mg tablet 2.5 mg PO DAILY chemo 09/08/18 [History Last Taken 09/07/18] multivitamin with folic acid 400 mcg tablet (Thera) 1 tab PO DAILY supplement 09/08/18 [History Last Taken 09/08/18] nitrofurantoin monohydrate/macrocrystals 100 mg capsule 100 mg PO DAILY antibiotic 09/08/18 [History Last Taken 09/08/18] ondansetron HCl 8 mg tablet 8 mg PO Q8H PRN PRN Nausea 09/08/18 [History Last Taken 09/07/18] sertraline 100 mg tablet 100 mg PO DAILY mental health 09/08/18 [History Last Taken 09/08/18] timolol maleate 0.5 % eye drops 1 drp BID eye health 09/08/18 [History Last Taken 09/07/18] Allergy/AdvReac Type Severity Reaction Status Date / Time codeine Allergy Hives Verified 08/31/22 13:37 methylprednisolone Allergy Hives Verified 08/31/22 13:37 Sulfa (Sulfonamide Allergy Hives Verified 08/31/22 13:37 Antibiotics) erythromycin base AdvReac Upset Verified 08/31/22 13:37 Stomach Social History Smoking Status: Never smoker ROS ROS ED Constitutional Constitutional ED: Denies chills or fever(s) Eyes Eyes: Denies change in vision or diplopia ENT ENT ED: Denies rhinorrhea or sore throat Cardiovascular Cardiovascular: Denies chest pain or palpitations Respiratory/Chest Respiratory/Chest: Reports dyspnea and dyspnea on exertion Gastrointestinal Gastrointestinal: Denies abdominal pain, nausea or vomiting Genitourinary Genitourinary ED: Denies dysuria or hematuria Musculoskeletal Musculoskeletal: Denies arthralgias or back pain Integumentary Denies abscess Neurologic Neurologic: Denies headache(s) or paresthesias Psychiatric Psychiatric: Denies anxiety EXAM Physical Exam Const Vital Signs: 08/31/22 13:35 08/31/22 13:37 08/31/22 14:55 Temperature 98.1 F 98.1 F Temperature Source Temporal Temporal Pulse Rate 57 L 57 L Respiratory Rate 16 16 Respiratory Effort Short of Breath Respiratory Depth Normal Respiratory Pattern Normal Blood Pressure 113/62 113/62 Blood Pressure Mean 79 79 Pulse Ox 97 97 Oxygen Delivery Method Room Air Room Air Room Air Positive well nourished General Appearance ED: NAD; Negative for pallor HEENT Reports moist mucous membranes atraumatic Eyes PERRL and EOMs intact bilaterally Neck no lymphadenopathy and supple Resp normal respiratory effort and clear to auscultation bilaterally Auscultation: Negative for rales, rhonchi or wheezes Cardio regular rate and regular rhythm GI non-tender Neuro oriented x3 and CN's II-XII intact bilaterally Sensorium / Orientation: alert Psych mental status grossly normal Skin no wounds and skin turgor normal General Skin Exam: Negative for jaundice or pallor MDM MDM MDM Narrative Medical decision making narrative: Patient presenting with weakness. This is very much when she stands up and she is symptomatic. She recently recovering from a viral illness and noted that she had a little bit of blood in her stool. She was seen by her PCP who states he had some excoriations around her rectum. She does have a history of chronic constipation and she is on MiraLAX for this. She is no longer having any fever, chills. She does not have chest pain. She is very dyspneic. This is with minimal exertion. High-sensitivity troponin is 25. CBC was obtained and shows a mild leukocytosis 12.3. Hemoglobin has declined to 10.5. Patient was able to show me on her phone that her CBC from 08/03/2022 showed hemoglobin of 13.5. She does report that she is no longer having any blood in her stool. BMP from the same date showed a creatinine of 1.07. GFR was 55. BNP within normal limits. Chest x-ray on my interpretation shows no acute cardiopulmonary process. Radiologist are persistent bradycardia. BNP is within normal limits. I suspect the combination of anemia and dehydration was likely the cause. Impression: 1. Anemia 2. Dyspnea 3. Dehydration 4. Generalized weakness Lab Data Attestation: I reviewed the patient's lab results. Labs: Laboratory Results - last 24 hr 08/31/22 08/31/22 08/31/22 14:53 14:53 14:53 WBC 12.3 H RBC 3.72 L Hgb 10.5 L Hct 35.6 L MCV 95.7 MCH 28.2 MCHC 29.5 L RDW Std Deviation 50.0 H RDW Coeff of Lauro 14.1 Plt Count 233 MPV 9.9 Immature Gran % (Auto) 1.100 H Neut % (Auto) 82.6 H Lymph % (Auto) 7.1 L [place] % (Auto) 8.7 Eos % (Auto) 0.2 Baso % (Auto) 0.3 Absolute Neuts (auto) 10.1 H Absolute Lymphs (auto) 0.87 Nucleated RBC % 0 Sodium 139 Potassium 4.4 Chloride 108 H Carbon Dioxide 24.0 Anion Gap 7 BUN 37 H Creatinine 1.71 H Estim Creat Clear Calc 23.15 Est GFR (MDRD) Af Amer 38 L Est GFR (MDRD) Non-Af 31 L BUN/Creatinine Ratio 21.6 H Glucose 148 H Calcium 8.9 Total Bilirubin 0.50 AST 15 ALT 14 Alkaline Phosphatase 96 Troponin I High Sens 25 B-Natriuretic Peptide 48.3 Total Protein 7.4 Albumin 3.6 Globulin 3.8 Albumin/Globulin Ratio 0.9 Urine Color Urine Clarity Urine pH Ur Specific [place] Urine Protein Urine Glucose (UA) Urine Ketones Urine Occult Blood Urine Nitrite Urine Bilirubin Urine Urobilinogen Ur Leukocyte Esterase Urine RBC Urine WBC Ur Squamous Epith Cells Urine Bacteria Hyaline Casts Urine Mucus 08/31/22 15:35 WBC RBC Hgb Hct MCV MCH MCHC RDW Std Deviation RDW Coeff of Lauro Plt Count MPV Immature Gran % (Auto) Neut % (Auto) Lymph % (Auto) [place] % (Auto) Eos % (Auto) Baso % (Auto) Absolute Neuts (auto) Absolute Lymphs (auto) Nucleated RBC % Sodium Potassium Chloride Carbon Dioxide Anion Gap BUN Creatinine Estim Creat Clear Calc Est GFR (MDRD) Af Amer Est GFR (MDRD) Non-Af BUN/Creatinine Ratio Glucose Calcium Total Bilirubin AST ALT Alkaline Phosphatase Troponin I High Sens B-Natriuretic Peptide Total Protein Albumin Globulin Albumin/Globulin Ratio Urine Color Yellow Urine Clarity Clear Urine pH 5.0 Ur Specific [place] 1.015 Urine Protein 30 H Urine Glucose (UA) Normal Urine Ketones Negative Urine Occult Blood Negative Urine Nitrite Negative Urine Bilirubin Negative Urine Urobilinogen Normal Ur Leukocyte Esterase 25 H Urine RBC 0 SEEN Urine WBC 0-5 SEEN Ur Squamous Epith Cells 0-5 SEEN Urine Bacteria 0 SEEN Hyaline Casts 0-5 SEEN Urine Mucus 0 SEEN Radiography Diagnostic Testing: Clinical Impression(s) from Imaging Studies Chest X-Ray 08/31/22 15:37 IMPRESSION: No acute cardiopulmonary abnormality. No interval change. Electronically Signed: Anupam Cha MD at 16:07 EST Reading Location ID and State: [address] [place] [address] Tel , Service support , Discharge Plan Triage Chief Complaint: Shortness of Breath ED Provider: Riaz Gonzáles Dx/Rx/DC Orders Prescriptions: No Action latanoprost 2.5 ML Drops 1 drp Each Eye QHS Label Comments: USE 1 DROP IN BOTH EYES DAILY AT BEDTIME. atorvastatin 10 MG tablet 10 mg PO QHS ondansetron HCl 8 MG tablet 8 mg PO Q8H PRN PRN (Reason: Nausea) Label Comments: TAKE 1 TABLET BY MOUTH EVERY 8 HOURS NEEDED FOR NAUSEA/VOMITING. sertraline 100 MG tablet 100 mg PO DAILY Label Comments: TAKE 1 TABLET BY MOUTH EVERY DAY clonazepam 1 MG tablet 1 mg PO QHS PRN PRN (Reason: Anxiety) dexamethasone 0.5 MG/5 ML Elixir 10 ml PO TID Label Comments: TAKE 10ML SWISH AND SPIT 3 TIMES A DAY AND AT BEDTIME letrozole 2.5 MG tablet 2.5 mg PO DAILY timolol maleate 5 ML Drops 1 drp Each Eye BID Label Comments: USE 1 DROP IN BOTH EYES TWICE DAILY. USE AT 9 AM AND 4 PM brimonidine 0.15 % bottle 1 drp Each Eye BID escitalopram oxalate 10 MG tablet 10 mg PO DAILY nitrofurantoin monohyd/m-cryst 100 MG capsule 100 mg PO DAILY cholecalciferol (vitamin D3) [Vitamin D3] 1,000 UNIT tablet 1,000 unit PO DAILY everolimus (antineoplastic) [Afinitor] 10 MG tablet 10 mg PO DAILY multivitamin with folic acid [Thera] 1 TABLET tablet 1 tab PO DAILY Primary Care Provider: Rosmery Grady Referrals: Rosmery Grady MD [Primary Care Provider] -
[2022-08-31 15:22] LABS: Absolute Lymphocyte Count 0.87 X10^3/uL (0.83-4.51); Absolute Neutrophil Count 10.1 X10^3/uL (2.0-7.7); Basophil# 0.04 X10^3/uL; Basophil% 0.3 % (0-1); Eosinophil# 0.03 X10^3/uL; Eosinophils% 0.2 % (0-5); Hematocrit 35.6 % (37-47); Hemoglobin 10.5 g/dL (12.0-15.0); Lymphocyte # 0.87 X10^3/ul (0.83-4.51); Lymphocyte % 7.1 % (19-41); Mean Corp Hgb Conc 29.5 g/dL (32-36); Mean Corpuscular Hgb 28.2 pg (27.0-32.0); Mean Corpuscular Volume 95.7 fL (81-99); Mean Platelet Vol. 9.9 fl (6.2-12.0); Monocyte# 1.07 X10^3/uL; Monocyte% 8.7 % (0-10); NRBC Flagged by Analyzer 0 % (0-5); Neutrophil # 10.12 X10^3/uL (2.7-7.7); Neutrophil % 82.6 % (47-70); Platelet Count 233 K/mm3 (150-450); RBC Distribution Width CV 14.1 % (11.6-14.6); Red Blood Count 3.72 M/mm3 (4.2-5.4); White Blood Count 12.3 K/mm3 (4.4-11.0)
--- NOTE | 2022-08-31 15:37 | RAD_ITS ---
EXAM: XR CHEST, 1 VIEW CLINICAL INDICATION: dyspnea TECHNIQUE: Frontal view of the chest. This report was created using [employer] report generation technology. COMPARISON: XR Chest dated 10/28/2021 FINDINGS: LUNGS AND PLEURAL SPACES: Normal. No consolidation or edema. No pneumothorax. No effusion. HEART: Normal heart size. MEDIASTINUM: No mediastinal or hilar mass. BONES/JOINTS: No acute abnormality. SOFT TISSUES: Normal. TUBES, LINES AND DEVICES: Right IJ infusion catheter remains in place. UPPER ABDOMEN: No change in the elevation of the right hemidiaphragm. IVC filter remains in place. RAD/Chest 1 View (Portable) IMPRESSION: No acute cardiopulmonary abnormality. No interval change. Electronically Signed: Anupam Cha MD at 16:07 EST ,
[2022-08-31 15:42] LABS: Bacteria 0 SEEN /hpf (None Seen); Mucous, Urine 0 SEEN /hpf (<or=2+); Red Blood Cells-Urine 0 SEEN /hpf (0-5)
[2022-08-31 15:47] LABS: ALB/GLOB Ratio 0.9 RATIO (0.9-2.4); AST(SGOT) 15 U/L (15-37); Alanine Aminotransfer ALT/SGPT 14 U/L (13-56); Albumin, Serum 3.6 g/dL (3.2-5.0); Alkaline Phosphatase 96 U/L (45-117); Anion Gap 7 (5-15); BUN 37 mg/dL (7-18); BUN/Creat Ratio 21.6 RATIO (10-20); Calcium,Total 8.9 mg/dL (8.5-10.1); Chloride 108 mmol/L (98-107); Creatinine, Serum 1.71 mg/dL (0.55-1.02); EST Glomerular Filtration Rate 31 mL/min (>60); Est Glom Filt Rate - Afr Amer 38 mL/min (>60); Estimated Creatinine Clearance 23.15 ml/min; Globulin 3.8 g/dL (2.2-4.2); Glucose 148 mg/dL (74-106); Potassium 4.4 mmol/L (3.5-5.1); Protein, Total 7.4 g/dL (6.4-8.2); Sodium Level 139 mmol/L (136-145); Troponin-I HS 25 pg/mL (3.0-54.0)
[2022-08-31 15:48] LABS: Color, Urine Yellow (Yellow); Glucose, Dipstick Normal (Normal); Ketone-Dipstick Negative (Negative); Leukocyte Esterase-Dipstick 25 /ul (Negative); Nitrite-Dipstick Negative (Negative); Occult Blood-Urine Negative /ul (Negative); Protein-Dipstick 30 mg/dl (Negative); Specific Gravity, Urine 1.015 (1.002-1.030); Urine Bilirubin Dipstick Negative (Negative); Urine Clarity Clear (Clear); Urine Urobilinogen Normal (Normal)
[2022-08-31 15:51] LABS: BNP,B-Type NATRIURETIC PEPTIDE 48.3 pg/mL (0-100)
[2022-08-31 15:55] LABS: Hyaline Cast 0-5 SEEN /lpf (0-5)
[2022-08-31 15:56] LABS: Squamous Epithelial Cells - UA 0-5 SEEN /hpf (5-10); White Blood Cells 0-5 SEEN /hpf (0-5)
--- NOTE | 2022-08-31 17:14 | NURSING ---
MED SURG OBS ESTRELLA ANEMIA, RY
[2022-08-31] MEDS: 0.9% Normal Saline 1,000 ML 999 ML IV (18:00)
--- NOTE | 2022-08-31 18:19 | ED.RN ---
Not able to pee yet
--- NOTE | 2022-08-31 19:56 | HP.PCM.HOS_ITS ---
HPI - General General Date of Admission: 08/31/22 Date of Service: 08/31/22 Chief Complaint: Generalized weakness/decreased p.o. intake HPI Narrative LAKESHIA OSEGUERA, is a 76 F who presented to the emergency department was prehospital on 08/31/2022 with general malaise and weakness. Patient lives alone in [place] and his family in [place] in [place]. She has a history of MS that has currently been stable and she has no significant muscular issues related to this. She evidently had a viral illness right around [place] where she developed a fever and viral symptoms. About 3 days ago she had some nausea and vomiting that has since subsided. She had decreased p.o. intake and when questioned why she is not eating and drinking she indicated that she just does not quite know what to eat and that it is hard to cook for 1 person. Patient does report that she has had some intermittent blood in her stool but was told by her primary care physician she had some excoriation around her rectum and they thought that was the cause. She indicates she is no longer having blood in her stool at this time. She also is on ciprofloxacin for UTI that was diagnosed as an outpatient. She does have a history of frequent UTIs previously. At this time family is concerned because of her weakness, debility, and decreased oral intake. She also reports and her son confirms that her lower extremities are more swollen than they typically are. She had recent lab work at her primary care physician's office at which time her hemoglobin was 11, her serum creatinine is 1.67. These were drawn on 08/28/2022. Upon presentation temperature was 98.1, heart rate 57, blood pressure was 113/62, respiratory rate 16, pulse ox was 97% on room air. Her CBC showed a mild leukocytosis at 12.3, hemoglobin of 9.5 and a normal platelet count. Her chemistry panel showed normal electrolytes but a significantly elevated BUN and creatinine at 37 and 1.7 respectively (signs serum creatinine appears to be between 0.75 and 1. Blood sugar was 148, liver enzymes were normal. Troponin was 25. A UA was performed and is not consistent with any acute infection at this time. Chest x-ray shows no acute cardiopulmonary processes. [facility] Medical History (Updated 08/31/22 @ 20:[address] Sarina Solorio DO) Brain bleed Glaucoma Multiple sclerosis Presence of IVC filter Pulmonary embolism Pulmonary nodule Uterine cancer Home Medications atorvastatin 10 mg tablet 40 mg PO QHS cholesterol lowering 09/08/18 [History Last Taken 08/30/22] cholecalciferol (vitamin D3) 25 mcg (1,000 unit) tablet (Vitamin D3) 1,000 unit PO DAILY supplement 09/08/18 [History Last Taken 09/07/18] multivitamin with folic acid 400 mcg tablet (Thera) 1 tab PO DAILY supplement 09/08/18 [History Last Taken 08/31/22] ondansetron HCl 8 mg tablet 8 mg PO Q8H PRN PRN Nausea 09/08/18 [History Last Taken 09/07/18] sertraline 100 mg tablet 125 mg PO DAILY mental health 09/08/18 [History Last Taken 08/31/22] brimonidine 0.2 % eye drops 2 drp RIGHT EYE BID glaucoma 08/31/22 [History Last Taken 08/30/22] ciprofloxacin HCl 500 mg tablet 500 mg PO BID infection 08/31/22 [History Last T aken 08/31/22] furosemide 20 mg tablet 20 mg PO DAILY water 08/31/22 [History Last Taken 08/31/22] levothyroxine 25 mcg tablet 25 mcg PO DAILY throid 08/31/22 [History Last Taken 08/31/22] meloxicam 15 mg tablet 15 mg PO DAILY 08/31/22 [History Last Taken 08/31/22] methenamine hippurate 1 gram tablet 1 g PO BID UTI 08/31/22 [History Last Taken 08/30/22] mirtazapine 15 mg tablet 15 mg PO QHS sleep 08/31/22 [History Last Taken 08/30/22] polyethylene glycol 3350 17 gram/dose oral powder (Miralax) 17 g PO DAILY constipation 08/31/22 [History Last Taken 08/30/22] potassium chloride 10 mEq tablet,extended release 10 meq PO DAILY supplement 08/31/22 [History Last Taken 08/31/22] travoprost 0.004 % eye drops 1 drp EACH EYE QHS glaucoma 08/31/22 [History Last Taken 08/30/22] Allergy/AdvReac Type Severity Reaction Status Date / Time codeine Allergy Hives Verified 08/31/22 13:37 methylprednisolone Allergy Hives Verified 08/31/22 13:37 Sulfa (Sulfonamide Allergy Hives Verified 08/31/22 13:37 Antibiotics) erythromycin base AdvReac Upset Verified 08/31/22 13:37 Stomach no significant family history Surgical History H/O: hysterectomy History of section Social History (Updated 08/31/22 @ 21:[address] Sarina Solorio DO) household members: none housing: house Smoking Status: Never smoker alcohol intake: never substance use type: does not use ROS Constitutional Constitutional: Reports anorexia, fatigue, malaise and weakness; Denies change in weight, chills, fever(s), night sweats or other Eyes Eyes: Denies blurry vision, change in eye color, change in vision, discharge from eye(s), double vision, erythema, eye pain, loss of vision or other ENT HEENT: Denies abnormal hearing, dysphagia, ear pain, epistaxis, headache(s), hearing loss, nasal congestion, nasal discharge, post nasal drip, sinus pressure, sore throat or other Cardiovascular Cardiovascular: Reports edema; Denies chest pain, claudication, dyspnea on exertion, lightheadedness, orthopnea, palpitations, paroxysmal nocturnal dyspne a, rapid heart rate, syncope or other Respiratory/Chest Respiratory/Chest: Denies cough, dyspnea, excessive phlegm production, hemoptysis, productive cough, shortness of breath at rest, shortness of breath with exertion, wheezing or other Gastrointestinal Gastrointestinal: Reports other Details: Decreased p.o. intake ; Denies abdominal pain, coffee ground emesis, constipation, diarrhea, dyspepsia, hematemesis, hematochezia, loose stools, melena, nausea or vomiting Genitourinary Genitourinary: Denies burning urination, difficulty urinating, dysuria, hematuria, nocturia, urinary frequency, urinary hesitancy, urinary incontinence, urinary urgency or other Neurologic Neurologic: Denies abnormal gait, abnormal speech, confusion, disequilibrium, dizziness, focal weakness, headache(s), numbness, paresthesias, seizure-like activity, seizures, syncope, tingling, tremor(s) or other Psychiatric Psychiatric: Reports depression; Denies anxiety, homicidal ideation, suicidal ideation or other Endocrine Endocrinology: Denies change in body appearance, cold intolerance, excessive sweating, heat intolerance, polydipsia, polyuria or other Hematologic/Lymphatic Hematologic/Lymphatic: Denies anemia, easy bleeding, easy bruising, lymphadenopathy or other Allergic/Immunologic Allergic/Immunologic: Denies rhinitis, hives, eczemia, asthma or other Vital Signs Vital Signs Vital Signs: 08/31/22 13:35 08/31/22 13:37 08/31/22 14:55 Temperature 98.1 F 98.1 F Temperature Source Temporal Temporal Pulse Rate 57 L 57 L Pulse Rate [Lying] Respiratory Rate 16 16 Respiratory Effort Short of Breath Respiratory Depth Normal Respiratory Pattern Normal Blood Pressure 113/62 113/62 Blood Pressure Mean 79 79 Pulse Ox 97 97 Oxygen Delivery Method Room Air Room Air Room Air 08/31/22 18:15 08/31/22 18:15 08/31/22 18:19 Temperature 98.7 F Temperature Source Temporal Pulse Rate 76 Pulse Rate [Lying] 96 Respiratory Rate 17 Respiratory Effort Respiratory Depth Respiratory Pattern Blood Pressure 130/74 H Blood Pressure Mean 92 Pulse Ox 99 99 Oxygen Delivery Method Room Air Room Air Weight Weight: 50.802 kg Body Mass Index (BMI) 19.8 Physical Exam Const alert, oriented x3 and no apparent distress Constitutional Narrative: Frail-appearing, older, white female, lying in bed, appears comfortable, son at bedside, nontoxic General Appearance: cooperative HEENT normocephalic, head/scalp atraumatic and hearing grossly normal bilaterally HEENT Narrative: Mucous membranes are dry, dentition is fair, no thrush Eyes PERRL, EOMs intact bilaterally and conjunctivae normal Eyes Narrative: No scleral icterus Neck no lymphadenopathy, supple and no JVD Resp normal respiratory effort, no retractions, no use of accessory muscles and clear to auscultation bilaterally Auscultation: Negative for crackles, rhonchi or wheezes Cardio regular rate, regular rhythm, S1 normal heart sound, S2 normal heart sound, no murmurs, no rub, no gallops and no clicks GI normal to inspection, nondistended, normoactive bowel sounds, soft to palpation and non-tender Extremity Extremity Narrative: Bilateral lower extremity doughy edema without pitting, no cyanosis or clubbing Skin no rashes or lesions noted, no wounds, no jaundice, no petechiae and no mottling Skin Narrative: Skin is pale but no lesions noted, tenting of skin Neuro oriented x3, CN's II-XII intact bilaterally, moves all extremities and no focal motor deficits Neuro Narrative: Significant generalized weakness but no focal deficits Speech: speech normal Psych affect normal Psych Narrative: Very pleasant Results Lab / Micro Data Attestation: I reviewed the patient's lab results. Result Diagrams: 08/31/22 14:53 08/31/22 14:53 Labs: Laboratory Results - last 24 hr 08/31/22 14:53: WBC 12.3 H, RBC 3.72 L, Hgb 10.5 L, Hct 35.6 L, MCV 95.7, MCH 28.2, MCHC 29.5 L, RDW Std Deviation 50.0 H, RDW Coeff of Lauro 14.1, Plt Count 233, MPV 9.9, Immature Gran % (Auto) 1.100 H, Neut % (Auto) 82.6 H, Lymph % (Auto) 7.1 L, [place] % (Auto) 8.7, Eos % (Auto) 0.2, Baso % (Auto) 0.3, Absolute Neuts (auto) 10.1 H, Absolute Lymphs (auto) 0.87, Nucleated RBC % 0 08/31/22 14:53: Sodium 139, Potassium 4.4, Chloride 108 H, Carbon Dioxide 24.0, Anion Gap 7, BUN 37 H, Creatinine 1.71 H, Estim Creat Clear Calc 23.15, Est GFR (MDRD) Af Amer 38 L, Est GFR (MDRD) Non-Af 31 L, BUN/Creatinine Ratio 21.6 H, Glucose 148 H, Calcium 8.9, Total Bilirubin 0.50, AST 15, ALT 14, Alkaline Phosphatase 96, Troponin I High Sens 25, Total Protein 7.4, Albumin 3.6, Globulin 3.8, Albumin/Globulin Ratio 0.9 08/31/22 14:53: B-Natriuretic Peptide 48.3 08/31/22 15:35: Urine Color Yellow, Urine Clarity Clear, Urine pH 5.0, Ur Specific [place] 1.015, Urine Protein 30 H, Urine Glucose (UA) Normal, Urine Ketones Negative, Urine Occult Blood Negative, Urine Nitrite Negative, Urine Bilirubin Negative, Urine Urobilinogen Normal, Ur Leukocyte Esterase 25 H, Urine RBC 0 SEEN, Urine WBC 0-5 SEEN, Ur Squamous Epith Cells 0-5 SEEN, Urine Bacteria 0 SEEN, Hyaline Casts 0-5 SEEN, Urine Mucus 0 SEEN Micro: Microbiology 08/31/22 15:25 Nasal Secretion SARS-CoV-2 & FLU Antigen (Rapid) - Final Radiology Impression Chest X-Ray 08/31/22 15:37 IMPRESSION: No acute cardiopulmonary abnormality. No interval change. Electronically Signed: Anupam Cha MD at 16:07 EST Reading Location ID and State: [facility] / [place] Tel , Service support , Assessment & Plan Assessment/Plan (1) Dehydration: (2) Severe malnutrition: (3) RY (acute kidney injury): (4) Anemia: (5) Debility: (6) Generalized weakness: PLAN: Plan RY secondary to dehydration -Baseline serum creatinine looks to be between 0.75 and 1 -Current serum creatinine 1.71 -We will generously hydrate -Avoid nephrotoxins -Hold home Lasix -Hold home Generalized weakness/debility -PT/OT consultation -manager of loss prevention operations consultation next-patient is aware that she may need placement at discharge -COVID/flu are negative Anemia -Current hemoglobin is 10.5 -Patient did have a hemoglobin done on 08/28/2022 which was 11 -With hydration hemoglobin may stop -Check Hemoccult as there was reported melena/bright red blood per rectum recently -She did address this with her primary care physician and it was reported that she had excoriation around her rectum that was felt to likely be the cause -If guaiac is positive and hemoglobin drops may need GI involvement Urinary tract infection -Patient was started on ciprofloxacin prior to admission for urinary tract infection -We will continue Cipro for now -Unclear with the courses at this time will need to review prescription and discontinue accordingly when antibiotics are to be completed Severe malnutrition -Add supplements -Encourage p.o. intake -Dietitian consult Hypothyroidism -Continue home levothyroxine -Patient had recent TSH drawn on 08/28/2021 which was within normal range Hyperlipidemia -Continue home atorvastatin Glaucoma -Continue home eyedrops MS -Relapsing and remitting -No flares for significantly long time -No symptoms concerning for flare at this time Constipation -Patient with chronic constipation issues -We will increase MiraLAX to 17 g twice daily until stool bleeding improves and then decrease dose back to MiraLAX daily DVT prophylaxis -Lovenox 30 mg daily subcu -SCDs CODE STATUS -DNR CCA with no intubation per discussion emergency department Charges/Coding Visit Charges Inpatient E&M: 67832 Init Hosp L2
--- NOTE | 2022-08-31 22:01 | VDLE_ITS ---
Reason For Study: swelling RIGHT LEFT CFV, FV, POP V, T/P Trunk, PTV, Peroneal V, CFV and FV are dilated and noncompressible. Gastroc V, Soleus V, and SSV are dilated and POP V and T/P Trunk are partially noncompressible. compressible. GSV is normal. PTV is compressible. Procedure LT PerV is compressible. This is a venous duplex using B-mode, color GSV is normal. flow and spectral Doppler. Exam performed portable in patient room. The exam was diagnostic. A preliminary report was called and/or faxed to Rachel WILLARD. VL/Venous Duplex US - [place] Extrem Interpretation Summary Acute deep vein thrombosis is noted in the right common femoral, femoral, popli teal, tibio-peroneal, posterior tibial, peroneal, gastrocnemius, soleus veins. Acute superficial vein thrombosis is noted in the right small saphenous vein. Vascular surgery consult may be considered. Ordering Physician: Sarina Solorio Performed By: Migue Crystal RVT
[2022-08-31] MEDS: Lactated Ringers 1,000 ML 75 ML IV (22:36)
[2022-08-31] MEDS: Ensure Plus High Protein 120 ML LIQUID PO (22:36)
[2022-08-31] MEDS: Ciprofloxacin 500 MG Tablet PO (22:37)
[2022-08-31] MEDS: BRIMONIDINE 0.2% 5ML BOTTLE 2 DRP RIGHT EYE (22:37)
[2022-08-31] MEDS: Mirtazapine 15 MG Tablet PO (22:38)
[2022-08-31] MEDS: Latanoprost 0.005% 1 Bottle 1 DRP EACH EYE (22:38)
[2022-08-31] MEDS: Methenamine Hippurate 1 GM Tablet PO (22:38)
[2022-08-31] MEDS: Atorvastatin Calcium 40 MG Tablet PO (22:39)
[2022-09-01] VITALS (7 sets, daily range): BP systolic 121–137; BP diastolic 67–77; PULSE 78–94; RESP 16–18; TEMP 36.7–37.3; O2SAT 94–99
--- NOTE | 2022-09-01 00:24 | EX.EMERGENCY ---
EMERGENCY DOCUMENTATION INITIATED: Date: 08/26/22 Time: 899 2099
[2022-09-01] MEDS: Levothyroxine 25 MCG TABLET PO (06:22)
[2022-09-01 06:29] LABS: Absolute Lymphocyte Count 1.29 X10^3/uL (0.83-4.51); Absolute Neutrophil Count 7.5 X10^3/uL (2.0-7.7); Basophil# 0.03 X10^3/uL; Basophil% 0.3 % (0-1); Eosinophil# 0.19 X10^3/uL; Eosinophils% 1.8 % (0-5); Hematocrit 30.5 % (37-47); Hemoglobin 9.4 g/dL (12.0-15.0); Lymphocyte # 1.29 X10^3/ul (0.83-4.51); Lymphocyte % 12.5 % (19-41); Mean Corp Hgb Conc 30.8 g/dL (32-36); Mean Corpuscular Hgb 28.7 pg (27.0-32.0); Mean Corpuscular Volume 93.3 fL (81-99); Mean Platelet Vol. 9.2 fl (6.2-12.0); Monocyte# 1.19 X10^3/uL; Monocyte% 11.6 % (0-10); NRBC Flagged by Analyzer 0 % (0-5); Neutrophil # 7.46 X10^3/uL (2.7-7.7); Neutrophil % 72.5 % (47-70); Platelet Count 190 K/mm3 (150-450); RBC Distribution Width CV 13.9 % (11.6-14.6); RBC Distribution Width SD 47.6 fl (35.1-43.9); Red Blood Count 3.27 M/mm3 (4.2-5.4); White Blood Count 10.3 K/mm3 (4.4-11.0)
[2022-09-01 06:57] LABS: ALB/GLOB Ratio 0.9 RATIO (0.9-2.4); AST(SGOT) 17 U/L (15-37); Alanine Aminotransfer ALT/SGPT 13 U/L (13-56); Albumin, Serum 2.9 g/dL (3.2-5.0); Alkaline Phosphatase 99 U/L (45-117); Anion Gap 9 (5-15); BUN 32 mg/dL (7-18); BUN/Creat Ratio 22.4 RATIO (10-20); Chloride 109 mmol/L (98-107); Creatinine, Serum 1.43 mg/dL (0.55-1.02); EST Glomerular Filtration Rate 38 mL/min (>60); Est Glom Filt Rate - Afr Amer 46 mL/min (>60); Estimated Creatinine Clearance 28.55 ml/min; Globulin 3.4 g/dL (2.2-4.2); Glucose 116 mg/dL (74-106); Magnesium 2.1 mg/dL (1.6-2.6); Phosphorus 2.6 mg/dL (2.5-4.9); Potassium 4.1 mmol/L (3.5-5.1); Protein, Total 6.3 g/dL (6.4-8.2); Sodium Level 139 mmol/L (136-145)
[2022-09-01] MEDS: Lactated Ringers 1,000 ML 75 ML IV ×2 (09:40→23:20)
[2022-09-01] MEDS: Juven (unflavored) Packet 1 PACKET PO ×2 (09:41→16:10)
[2022-09-01] MEDS: Multivitamins,Therapeutic Tablet 1 TABLET PO (09:42)
[2022-09-01] MEDS: BRIMONIDINE 0.2% 5ML BOTTLE 2 DRP RIGHT EYE ×2 (09:42→21:48)
[2022-09-01] MEDS: Ensure Plus High Protein 120 ML LIQUID PO ×3 (09:42→21:49)
[2022-09-01] MEDS: Cholecalciferol (VIT D3) 25 MCG TABLET (1,000 UNITS) PO (09:44)
[2022-09-01] MEDS: Methenamine Hippurate 1 GM Tablet PO ×2 (09:44→21:49)
[2022-09-01] MEDS: Sertraline 50 MG Tablet 125 MG PO (09:44)
[2022-09-01] MEDS: Polyethylene Glycol 3350 17 GM PACKET PO ×2 (09:44→21:50)
[2022-09-01] MEDS: HEPARIN/D5w 25,000 UNITS 25,000 UNITS/250 ML IV.SOLN. 8 UNITS CONT INF (12:55)
[2022-09-01] MEDS: Heparin Injection (Vial) 5,000 UNIT/ML VIAL 4000 UNIT IV (12:55)
--- NOTE | 2022-09-01 13:40 | PN.HOSP_ITS ---
Subjective Subjective Follow-up RY/debility/UTI/acute right leg DVT; Patient was seen and examined. She admits to feeling improved. Doppler ultrasound of both lower extremities shows acute DVT in the right common femoral, femoral, popliteal, tibial peroneal, posterior tibial, peroneal, concerning was, soleus veins. She denies any chest pain or shortness of breath. Objective Data Objective Data Vital Signs: Vital Signs Temp Pulse Resp BP Pulse Ox O2 Del Method 98.0 F 78 18 137/77 H 94 Room Air 09/01/22 08:54 09/01/22 09:00 09/01/22 08:54 09/01/22 08:54 09/01/22 09:31 09/01/22 09:31 Oxygen Delivery Method Room Air Weight: 54.006 kg Body Mass Index (BMI) 21.0 Intake & Output: Intake and Output for Last 24 Hours 08/30/22 08/31/22 09/01/22 23:59 23:59 23:59 Intake Total 1000 / 1000 830 / 830 Balance 1000 / 1000 830 / 830 Lab / Micro Data Result Diagrams: 09/01/22 06:21 09/01/22 06:21 Labs: Laboratory Results - last 24 hr 08/31/22 14:53: WBC 12.3 H, RBC 3.72 L, Hgb 10.5 L, Hct 35.6 L, MCV 95.7, MCH 28.2, MCHC 29.5 L, RDW Std Deviation 50.0 H, RDW Coeff of Lauro 14.1, Plt Count 233, MPV 9.9, Immature Gran % (Auto) 1.100 H, Neut % (Auto) 82.6 H, Lymph % (Auto) 7.1 L, Morgan % (Auto) 8.7, Eos % (Auto) 0.2, Baso % (Auto) 0.3, Absolute Neuts (auto) 10.1 H, Absolute Lymphs (auto) 0.87, Nucleated RBC % 0 08/31/22 14:53: Sodium 139, Potassium 4.4, Chloride 108 H, Carbon Dioxide 24.0, Anion Gap 7, BUN 37 H, Creatinine 1.71 H, Estim Creat Clear Calc 23.15, Est GFR (MDRD) Af Amer 38 L, Est GFR (MDRD) Non-Af 31 L, BUN/Creatinine Ratio 21.6 H, Glucose 148 H, Calcium 8.9, Total Bilirubin 0.50, AST 15, ALT 14, Alkaline Phosphatase 96, Troponin I High Sens 25, Total Protein 7.4, Albumin 3.6, Globulin 3.8, Albumin/Globulin Ratio 0.9 08/31/22 14:53: B-Natriuretic Peptide 48.3 08/31/22 15:35: Urine Color Yellow, Urine Clarity Clear, Urine pH 5.0, Ur Specific [place] 1.015, Urine Protein 30 H, Urine Glucose (UA) Normal, Urine Ketones Negative, Urine Occult Blood Negative, Urine Nitrite Negative, Urine Bilirubin Negative, Urine Urobilinogen Normal, Ur Leukocyte Esterase 25 H, Urine RBC 0 SEEN, Urine WBC 0-5 SEEN, Ur Squamous Epith Cells 0-5 SEEN, Urine Bacteria 0 SEEN, Hyaline Casts 0-5 SEEN, Urine Mucus 0 SEEN 09/01/22 06:21: WBC 10.3, RBC 3.27 L, Hgb 9.4 L, Hct 30.5 L, MCV 93.3, MCH 28.7, MCHC 30.8 L, RDW Std Deviation 47.6 H, RDW Coeff of Lauro 13.9, Plt Count 190, MPV 9.2, Immature Gran % (Auto) 1.300 H, Neut % (Auto) 72.5 H, Lymph % (Auto) 12.5 L , Morgan % (Auto) 11.6 H, Eos % (Auto) 1.8, Baso % (Auto) 0.3, Absolute Neuts (auto) 7.5, Absolute Lymphs (auto) 1.29, Nucleated RBC % 0 09/01/22 06:21: Sodium 139, Potassium 4.1, Chloride 109 H, Carbon Dioxide 21.0, Anion Gap 9, BUN 32 H, Creatinine 1.43 H, Estim Creat Clear Calc 28.55, Est GFR (MDRD) Af Amer 46 L, Est GFR (MDRD) Non-Af 38 L, BUN/Creatinine Ratio 22.4 H, Glucose 116 H, Calcium 8.0 L, Phosphorus 2.6, Magnesium 2.1, Total Bilirubin 0.40, AST 17, ALT 13, Alkaline Phosphatase 99, Total Protein 6.3 L, Albumin 2.9 L, Globulin 3.4, Albumin/Globulin Ratio 0.9 Micro: Microbiology 08/31/22 15:25 Nasal Secretion SARS-CoV-2 & FLU Antigen (Rapid) - Final Radiography Diagnostic Testing: Radiology Impression Chest X-Ray 08/31/22 15:37 IMPRESSION: No acute cardiopulmonary abnormality. No interval change. Electronically Signed: Anupam Cha MD at 16:07 EST Reading Location ID and State: [address] [place] [address] Tel , Service support , Venous Doppler Study 08/31/22 22:01 Interpretation Summary Acute deep vein thrombosis is noted in the right common femoral, femoral, popliteal, tibio-peroneal, posterior tibial, peroneal, gastrocnemius, soleus veins. Acute superficial vein thrombosis is noted in the right small saphenous vein. Vascular surgery consult may be considered. Ordering Physician: Sarina Solorio Performed By: Migue Crystal RVT Physical Exam Narrative Physical exam: General: Alert, Oriented x3, Cooperative HEENT: Atraumatic Oral: Moist Mucosa Neck: Supple Lungs: Clear to auscultation Cardiovascular: HS I+II, regular, no murmurs Abdomen: Bowel Sounds Present, Soft, Non Tender Extremities: Right leg is swollen, tender to touch Skin: No rashes, No breakdown Neurological: Grossly intact Psych/Mental Status: Appropriate Assessment & Plan Assessment/Plan (1) Dehydration: (2) Severe malnutrition: (3) RY (acute kidney injury): (4) Anemia: (5) Debility: (6) Generalized weakness: PLAN: Plan 1. RY, prerenal, in a patient with baseline creatinine of 0.7, secondary to dehydration Creatinine improved from 1.71-1.43, continue IV fluids, trend lab 2. Acute extensive right lower extremity DVT, noted on Doppler ultrasound Started on heparin drip, vascular surgery consult 3. Anemia, hemoglobin is 9.3, about her baseline We will check iron stores, follow-up on stool for occult blood 4. Recent acute UTI, continue on Cipro, Hiprex 5. 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 Rest of her chronic medical problems disease remained stable including hypothyroidism, hyperlipidemia, history of MS Continue on statin, Synthroid, Remeron, Zoloft 7. DVT PPx- On heparin drip Charges/Coding Visit Charges Inpatient E&M: 69337 Subs Hosp L2
--- NOTE | 2022-09-01 15:22 | CASEMGMT ---
Addendum entered by Krys Hdez 09/01/22 15:43: Other specialist, Reece, neuro. Original Note: RN AMANDA Assessment: Face to Face with pt for initial transition planning/care coordination assessment. RN CM introduced self and role at [facility], pt voices understanding and consents to assessment. Pt is A/O x4 and answers all questions appropriately at this time. Pt lying in bed in no distress with dil at bedside. Care providers, pharmacy, and demographics verified/updated. Admitting Dx: anemia, RY PCP:Ysabel Specialists:Annabel, onc at [facility]; Rylie, radiation; Evelia, vasc; florinda Solorio onc Preferred Pharmacy: [facility] Insurance: [employer] Prescription Benefit: yes LNOK: Min Kennedy, son Living Arrangements: Pt lives alone in a single story condo with 1 step to enter without a rail. Pt reports she was I in ADL's prior to hospitalization. Transportation: Pt drives self and denies concerns with transportation. DME/HHC/SNF: Pt has a cane that she usually uses. She has a FWW and grab bar in her shower. Pt has had HHC in the past but cannot recall the name. Pt denies SNF stays. Pt and dtr states that it was recommended that pt get further therapy prior to returning home. 6 Clicks= 19. Therapy has not worked with pt yet. Pt has a facility called [facility] in [place] that she would like to go to but her dil states if pt needs SNF, [place] would be better for them to support her. Discussed that we will see how pt does with therapy to see if SNF, HHC or outpt therapy is more appropriate for her needs. Pt and dtr verbalize understanding and agree. Pt states no further concerns/needs. CM to follow. Advised pt to ask CM if any further question/concerns/needs arise, voices understanding. Pt Goal: Home vs SNF Plan: TBD pending therapy evals.
[2022-09-01] MEDS: Ciprofloxacin 500 MG Tablet PO (16:10)
[2022-09-01 19:52] LABS: Partial Thromboplast Time 54.9 Seconds (24.1-36.2)
[2022-09-01] MEDS: Latanoprost 0.005% 1 Bottle 1 DRP EACH EYE (21:48)
[2022-09-01] MEDS: Mirtazapine 15 MG Tablet PO (21:50)
[2022-09-01] MEDS: Atorvastatin Calcium 40 MG Tablet PO (21:50)
[2022-09-02 02:26] VITALS: BP 135/71; PULSE 64; RESP 16; TEMP 37.6; O2SAT 97
[2022-09-02 05:17] LABS: Absolute Lymphocyte Count 1.56 X10^3/uL (0.83-4.51); Absolute Neutrophil Count 7.5 X10^3/uL (2.0-7.7); Basophil# 0.04 X10^3/uL; Basophil% 0.4 % (0-1); Eosinophil# 0.23 X10^3/uL; Eosinophils% 2.2 % (0-5); Hematocrit 32.1 % (37-47); Hemoglobin 10.1 g/dL (12.0-15.0); Lymphocyte # 1.56 X10^3/ul (0.83-4.51); Lymphocyte % 14.6 % (19-41); Mean Corp Hgb Conc 31.5 g/dL (32-36); Mean Corpuscular Hgb 28.8 pg (27.0-32.0); Mean Corpuscular Volume 91.5 fL (81-99); Mean Platelet Vol. 10.1 fl (6.2-12.0); Monocyte# 1.17 X10^3/uL; NRBC Flagged by Analyzer 0 % (0-5); Neutrophil # 7.52 X10^3/uL (2.7-7.7); Neutrophil % 70.6 % (47-70); Platelet Count 234 K/mm3 (150-450); RBC Distribution Width CV 13.8 % (11.6-14.6); RBC Distribution Width SD 46.8 fl (35.1-43.9); Red Blood Count 3.51 M/mm3 (4.2-5.4); White Blood Count 10.7 K/mm3 (4.4-11.0)
[2022-09-02 05:35] LABS: Partial Thromboplast Time 30.2 Seconds (24.1-36.2)
[2022-09-02 05:45] LABS: ALB/GLOB Ratio 0.8 RATIO (0.9-2.4); AST(SGOT) 16 U/L (15-37); Alanine Aminotransfer ALT/SGPT 16 U/L (13-56); Albumin, Serum 2.9 g/dL (3.2-5.0); Alkaline Phosphatase 94 U/L (45-117); Anion Gap 8 (5-15); BUN 23 mg/dL (7-18); BUN/Creat Ratio 24.6 RATIO (10-20); Calcium,Total 8.2 mg/dL (8.5-10.1); Chloride 108 mmol/L (98-107); Creatinine, Serum 0.93 mg/dL (0.55-1.02); EST Glomerular Filtration Rate 62 mL/min (>60); Est Glom Filt Rate - Afr Amer 75 mL/min (>60); Estimated Creatinine Clearance 42.56 ml/min; Globulin 3.6 g/dL (2.2-4.2); Glucose 108 mg/dL (74-106); Potassium 3.6 mmol/L (3.5-5.1); Protein, Total 6.5 g/dL (6.4-8.2); Sodium Level 139 mmol/L (136-145)
[2022-09-02] MEDS: Levothyroxine 25 MCG TABLET PO (06:03)
[2022-09-02] MEDS: Heparin Injection (Vial) 5,000 UNIT/ML VIAL IV (06:29)
[2022-09-02 07:20] VITALS: O2SAT 93
[2022-09-02 08:30] VITALS: BP 155/85; PULSE 105; RESP 16; TEMP 37.2; O2SAT 92
[2022-09-02] MEDS: Sertraline 50 MG Tablet 125 MG PO (09:49)
[2022-09-02] MEDS: Ciprofloxacin 500 MG Tablet PO ×2 (09:49→21:56)
[2022-09-02] MEDS: Methenamine Hippurate 1 GM Tablet PO ×2 (09:49→21:56)
[2022-09-02] MEDS: Cholecalciferol (VIT D3) 25 MCG TABLET (1,000 UNITS) PO (09:49)
[2022-09-02] MEDS: Multivitamins,Therapeutic Tablet 1 TABLET PO (09:49)
[2022-09-02] MEDS: BRIMONIDINE 0.2% 5ML BOTTLE 2 DRP RIGHT EYE ×2 (09:50→21:55)
--- NOTE | 2022-09-02 09:51 | EX.PCM.CON.S ---
Assessment & Plan Assessment/Plan (1) DVT (deep venous thrombosis): (2) Presence of IVC filter: PLAN: Plan Consulted for extensive RLE DVT to see if candidate for thrombectomy. Do think patient would benefit from thrombectomy and discussed risks/benefits of procedure at length with patient and her sons (via phone). Patient is agreeable to proceeding with thrombectomy. Planning for venogram with possible thrombectomy in the catheter builder on Wednesday. Patient will need to be admitted to our service Wednesday evening for heparin bridge and will stay overnight following procedure to bridge back to DOAC prior to discharge. Patient is currently on heparin drip. Will transition to oral anticoagulation with Xarelto. Will start the loading dose regimen 15 mg BID x 21 days then 20mg daily thereafter. Heparin can be discontinued 1 hour after initial DOAC dose. Suspect there are multiple factors contributing to DVT, including IVC filter, venous scarring likely from prior DVTs and radiation therapy, and recent inactivity due to illness. However, given history of malignancy strongly advise she follow-up with her oncology team at the [facility] to ensure no underlying recurrence. Patient agreeable to plans. Addressed all her questions/concerns as well as that of her family. We will continue to follow while she is here in hospital, discharge planning per her primary team. HPI Consult Data Date of Consult: 09/02/22 HPI Narrative HPI Narrative: LAKESHIA OSEGUERA, is a 76 F who initially presented to the hospital with general malaise and weakness associated with UTI diagnosed outpatient. She was also noted to have bilateral lower extremity swelling, right worse than left which propmted duplex. Duplex revelaed extensive right lower extremity DVT involving right common femoral, femoral, popliteal, tibio-peroneal, posterior tibial, peroneal, gastroc, and soleus veins for which we are consulted in consideration of possible thrombectomy. Patient does have an IVC filter which was placed in 2019. From chart review and patient report it would appear the filter was placed secondary to a PE in the context of uterine malignancy and a subdural hematoma the month previous. Patient has a history of endometrial cancer, appears diagnosed in 2014. She has had ÓSCAR BSO, chemo, and most recently in the last 6 months radiation for retroperitoneal/aortocaval ling recurrences. 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 She also has a history of MS which seems to have caused some balance issues in the past, but when not in a flair reportedly does not affect her mobility too much. She also has a history of recurrent UTIs associated with some confusion/delirium. She denies any issues with falls/head trauma/bleeding since 2019. Patient reports that she has noticed swelling in her bilateral lower legs, worse on the right, progressively worsening over at least the last few weeks, she is unsure of the exact timeline. She reports it seemed to get a lot worse late last week and through the weekend. Her legs feel very heavy and achy and she feels it is adversely affecting her mobility, she has a difficult time lifting them to walk properly and especially lifting them up into bed. Today, she denies chest pain, SOB, constitutional symptoms. She has been hemodynamically stable, H&H stable/improving. She is on a heparin drip. Her kidney function appears to be improving from admission. [facility] Medical History (Updated 09/02/22 @ 10:25 by CLYDE Thao) Brain bleed Glaucoma Multiple sclerosis Presence of IVC filter Pulmonary embolism Pulmonary nodule Uterine cancer Home Medications atorvastatin 10 mg tablet 40 mg PO QHS cholesterol lowering 09/08/18 [History Last Taken 08/30/22] cholecalciferol (vitamin D3) 25 mcg (1,000 unit) tablet (Vitamin D3) 1,000 unit PO DAILY supplement 09/08/18 [History Last Taken 09/07/18] multivitamin with folic acid 400 mcg tablet (Thera) 1 tab PO DAILY supplement 09/08/18 [History Last Taken 08/31/22] ondansetron HCl 8 mg tablet 8 mg PO Q8H PRN PRN Nausea 09/08/18 [History Last Taken 09/07/18] sertraline 100 mg tablet 125 mg PO DAILY mental health 09/08/18 [History Last Taken 08/31/22] brimonidine 0.2 % eye drops 2 drp RIGHT EYE BID glaucoma 08/31/22 [History Last Taken 08/30/22] ciprofloxacin HCl 500 mg tablet 500 mg PO BID infection 08/31/22 [History Last Taken 08/31/22] furosemide 20 mg tablet 20 mg PO DAILY water 08/31/22 [History Last Taken 08/31/22] levothyroxine 25 mcg tablet 25 mcg PO DAILY throid 08/31/22 [History Last Taken 08/31/22] meloxicam 15 mg tablet 15 mg PO DAILY 08/31/22 [History Last Taken 08/31/22] methenamine hippurate 1 gram tablet 1 g PO BID UTI 08/31/22 [History Last Taken 08/30/22] mirtazapine 15 mg tablet 15 mg PO QHS sleep 08/31/22 [History Last Taken 08/30/22] polyethylene glycol 3350 17 gram/dose oral powder (Miralax) 17 g PO DAILY constipation 08/31/22 [History Last Taken 08/30/22] potassium chloride 10 mEq tablet,extended release 10 meq PO DAILY supplement 08/31/22 [History Last Taken 08/31/22] travoprost 0.004 % eye drops 1 drp EACH EYE QHS glaucoma 08/31/22 [History Last Taken 08/30/22] Allergy/AdvReac Type Severity Reaction Status Date / Time codeine Allergy Hives Verified 08/31/22 13:37 methylprednisolone Allergy Hives Verified 08/31/22 13:37 Sulfa (Sulfonamide Allergy Hives Verified 08/31/22 13:37 Antibiotics) erythromycin base AdvReac Upset Verified 08/31/22 13:37 Stomach Family History no significant family his Surgical History H/O: hysterectomy History of section Social History (Updated 08/31/22 @ 21:[address] Sarina Solorio DO) household members: none housing: house Smoking Status: Never smoker alcohol intake: never substance use type: does not use ROS Constitutional Constitutional: Reports fatigue and weakness; Denies change in weight, chills, fever(s), malaise, night sweats or other Eyes Eyes: Denies blurry vision, change in eye color, change in vision, discharge from eye(s), double vision, erythema, eye pain, loss of vision or other ENT HEENT: Denies abnormal hearing, dysphagia, ear pain, epistaxis, headache(s), hearing loss, nasal congestion, nasal discharge, post nasal drip, sinus pressure, sore throat or other Cardiovascular Cardiovascular: Denies chest pain, claudication, cold extremities, cyanosis, dyspnea, leg ulcers, lightheadedness, nausea, orthopnea, palpitations, paroxysmal nocturnal dyspnea, rapid heart rate, syncope, vomiting or other Respiratory/Chest Respiratory/Chest: Denies cough, dyspnea, excessive phlegm production, hemoptysis, productive cough, shortness of breath at rest, shortness of breath with exertion, wheezing or other Gastrointestinal Gastrointestinal: Denies abdominal pain, coffee ground emesis, constipation, diarrhea, dyspepsia, hematemesis, hematochezia, loose stools, melena, nausea or vomiting Genitourinary Genitourinary: Denies burning urination, difficulty urinating, dysuria, hematuria, nocturia, urinary frequency, urinary hesitancy, urinary incontinence, urinary urgency or other Musculoskeletal Musculoskeletal: Denies back pain, extremity pain or joint pain Integumentary Integumentary: Denies bleeding lesions, erythema, lesions, non-healing lesions, rash, skin ulcer, sores or wounds Neurologic Neurologic: Denies abnormal gait, abnormal speech, confusion, disequilibrium, dizziness, focal weakness, headache(s), numbness, paresthesias, seizure-like activity, seizures, syncope, tingling, tremor(s) or other Psychiatric Psychiatric: Reports depression; Denies anxiety, homicidal ideation, suicidal ideation or other Endocrine Endocrinology: Denies change in body appearance, cold intolerance, excessive sweating, heat intolerance, polydipsia, polyuria or other Hematologic/Lymphatic Hematologic/Lymphatic: Denies anemia, easy bleeding, easy bruising, lymphadenopathy or other Allergic/Immunologic Allergic/Immunologic: Reports none Physical Exam Const alert, oriented x3, no apparent distress and healthy appearing General Appearance: cooperative, comfortable and well developed; Negative for in distress HEENT normocephalic, head/scalp atraumatic, hearing grossly normal bilaterally, external ears normal and external nose normal Eyes PERRL and EOMs intact bilaterally General Eye: normal appearance of both eyes Neck full ROM and no carotid bruits General: normal visual inspection and trachea midline; Negative for anterior neck swelling Resp normal respiratory effort, no use of accessory muscles and clear to auscultation bilaterally Effort and Inspection: able to speak in complete sentences and symmetric chest movement; Negative for respiratory distress, labored, stridor, retractions, uses accessory muscles or audible wheezes Cardio regular rate and regular rhythm Bruits: Negative for carotid bruit Peripheral Pulses: pulses 2+ throughout Extremity Extremity Narrative: Significant bilateral lower extremity swelling noted, worse on right than left. DP and PT pulses palpable bilaterally, brisk capillary refill. Skin Skin Narrative: No erythema, warmth, rash/lesion/wounds, drainage/seeping noted. No discoloration or skin changes such as stasis dermatitis noted. Skin integrity intact bilaterally. Neuro oriented x3, CN's II-XII intact bilaterally, moves all extremities, no focal motor deficits and no sensory deficits noted Psych mental status grossly normal, thought process normal, cooperative, affect normal, speech normal and activity/motor behavior normal Appearance: grossly normal Attitude: calm Activity / Motor Behavior: appropriate eye contact Medical Records Data Medical Nutrition Assessment Dietitian: Malnutrition Criteria Met Start: 09/01/22 17:06 Freq: Status: Active Protocol: Document 09/01/22 17:06 RMA (Rec: 09/01/22 17:06 RMA [id number]) Nutrition Malnutrition Evidence of Malnutrition Exists Yes Malnutrition (moderate): Chronic Evidenced By Suboptimal Energy Intake ( Moderate),Weight Loss ( Moderate),Physical Changes ( Moderate) Clinical Problem Chronic Disease or Condition Related Malnutrition Etiology Moderate pro-alfredo malnutrition in the context of chronic disease/debility related to inadequate oral intake Signs/Symptoms as evidenced by BMI 19.8, PO meeting less than 75% estimated nutrition needs, muscle/fat wasting in the face , clavicle, arms and legs Status Active Problem Recommendation Dietitian Recommendations/Changes Continue liberalized regular diet. Continue 120 ml ensure plus high protein 4 times per day w / medpass; likes chocolate. Will d/c Golden BID; skin intact. Will add 120 ml ensure clear TID w/ meals. Reweigh as able; trend weights closely. Lab / Micro Data Result Diagrams: 09/02/22 04:42 09/02/22 04:42 Labs: Laboratory Results - last 24 hr 09/01/22 19:06: APTT 54.9 H 09/02/22 04:42: WBC 10.7, RBC 3.51 L, Hgb 10.1 L, Hct 32.1 L, MCV 91.5, MCH 28.8, MCHC 31.5 L, RDW Std Deviation 46.8 H, RDW Coeff of Lauro 13.8, Plt Count 234, MPV 10.1, Immature Gran % (Auto) 1.200 H, Neut % (Auto) 70.6 H, Lymph % (Auto) 14.6 L, [place] % (Auto) 11.0 H, Eos % (Auto) 2.2, Baso % (Auto) 0.4, Absolute Neuts (auto) 7.5, Absolute Lymphs (auto) 1.56, Nucleated RBC % 0 09/02/22 04:42: Sodium 139, Potassium 3.6, Chloride 108 H, Carbon Dioxide 23.0, Anion Gap 8, BUN 23 H, Creatinine 0.93, Estim Creat Clear Calc 42.56, Est GFR (MDRD) Af Amer 75, Est GFR (MDRD) Non-Af 62, BUN/Creatinine Ratio 24.6 H, Glucose 108 H, Calcium 8.2 L, Total Bilirubin 0.40, AST 16, ALT 16, Alkaline Phosphatase 94, Total Protein 6.5, Albumin 2.9 L, Globulin 3.6, Albumin/Globulin Ratio 0.8 L 09/02/22 04:42: APTT 30.2 Radiology Impression Venous Doppler Study 08/31/22 22:01 Interpretation Summary Acute deep vein thrombosis is noted in the right common femoral, femoral, popliteal, tibio-peroneal, posterior tibial, peroneal, gastrocnemius, soleus veins. Acute superficial vein thrombosis is noted in the right small saphenous vein. Vascular surgery consult may be considered. Ordering Physician: Sarina Solorio Performed By: Migue Crystal, RVT Charges/Coding Visit Charges Inpatient E&M: 83879 Init Hosp L2
[2022-09-02] MEDS: Ensure Plus High Protein 120 ML LIQUID PO ×2 (10:00→13:27)
[2022-09-02] MEDS: Polyethylene Glycol 3350 17 GM PACKET PO (10:00)
[2022-09-02] MEDS: Rivaroxaban 15 MG Tablet PO ×2 (11:04→18:14)
--- NOTE | 2022-09-02 11:19 | PCM.PN.HOSP ---
Subjective Subjective Follow-up RY/debility/UTI/acute right leg DVT; Patient was seen and examined.? Patient feels improved. Discussed with vascular surgery, patient will probably have the thrombectomy done on Wednesday as more instrumentation will need to be ordered. She denied any diarrhea or dizziness or palpitation. Objective Data Objective Data Vital Signs: Vital Signs Temp Pulse Resp BP Pulse Ox O2 Del Method 99.0 F 105 H 16 155/85 H 92 Room Air 09/02/22 08:30 09/02/22 08:30 09/02/22 08:30 09/02/22 08:30 09/02/22 08:30 09/02/22 08:30 Oxygen Delivery Method Room Air Weight: 50.8 kg Body Mass Index (BMI) 21.0 Intake & Output: Intake and Output for Last 24 Hours 08/31/22 09/01/22 09/02/22 23:59 23:59 23:59 Intake Total 1000 / 1000 2513 / 2513 140.4 / 140.4 Balance 1000 / 1000 2513 / 2513 140.4 / 140.4 Medical Nutrition Assessment Dietitian: Malnutrition Criteria Met Start: 09/01/22 17:06 Freq: Status: Active Protocol: Document 09/01/22 17:06 RMA (Rec: 09/01/22 17:06 RMA [id number]) Nutrition Malnutrition Evidence of Malnutrition Exists Yes Malnutrition (moderate): Chronic Evidenced By Suboptimal Energy Intake ( Moderate),Weight Loss ( Moderate),Physical Changes ( Moderate) Clinical Problem Chronic Disease or Condition Related Malnutrition Etiology Moderate pro-alfredo malnutrition in the context of chronic disease/debility related to inadequate oral intake Signs/Symptoms as evidenced by BMI 19.8, PO meeting less than 75% estimated nutrition needs, muscle/fat wasting in the face , clavicle, arms and legs Status Active Problem Recommendation Dietitian Recommendations/Changes Continue liberalized regular diet. Continue 120 ml ensure plus high protein 4 times per day w / medpass; likes chocolate. Will d/c Golden BID; skin intact. Will add 120 ml ensure clear TID w/ meals. Reweigh as able; trend weights closely. Lab / Micro Data Result Diagrams: 09/02/22 04:42 09/02/22 04:42 Labs: Laboratory Results - last 24 hr 09/01/22 19:06: APTT 54.9 H 09/02/22 04:42: WBC 10.7, RBC 3.51 L, Hgb 10.1 L, Hct 32.1 L, MCV 91.5, MCH 28.8, MCHC 31.5 L, RDW Std Deviation 46.8 H, RDW Coeff of Lauro 13.8, Plt Count 234, MPV 10.1, Immature Gran % (Auto) 1.200 H, Neut % (Auto) 70.6 H, Lymph % (Auto) 14.6 L, [place] % (Auto) 11.0 H, Eos % (Auto) 2.2, Baso % (Auto) 0.4, Absolute Neuts (auto) 7.5, Absolute Lymphs (auto) 1.56, Nucleated RBC % 0 09/02/22 04:42: Sodium 139, Potassium 3.6, Chloride 108 H, Carbon Dioxide 23.0, Anion Gap 8, BUN 23 H, Creatinine 0.93, Estim Creat Clear Calc 42.56, Est GFR (MDRD) Af Amer 75, Est GFR (MDRD) Non-Af 62, BUN/Creatinine Ratio 24.6 H, Glucose 108 H, Calcium 8.2 L, Total Bilirubin 0.40, AST 16, ALT 16, Alkaline Phosphatase 94, Total Protein 6.5, Albumin 2.9 L, Globulin 3.6, Albumin/Globulin Ratio 0.8 L 09/02/22 04:42: APTT 30.2 Micro: Microbiology 08/31/22 15:25 Nasal Secretion SARS-CoV-2 & FLU Antigen (Rapid) - Final Radiography Diagnostic Testing: Radiology Impression Venous Doppler Study 08/31/22 22:01 Interpretation Summary Acute deep vein thrombosis is noted in the right common femoral, femoral, popliteal, tibio-peroneal, posterior tibial, peroneal, gastrocnemius, soleus veins. Acute superficial vein thrombosis is noted in the right small saphenous vein. Vascular surgery consult may be considered. Ordering Physician: Sarina Solorio Performed By: Migue Crystal, RVT Physical Exam Narrative Physical exam: General: Alert, Oriented x3, Cooperative HEENT: Atraumatic Oral: Moist Mucosa Neck: Supple Lungs: Clear to auscultation Cardiovascular: HS I+II, regular, no murmurs Abdomen: Bowel Sounds Present, Soft, Non Tender Extremities: Bilateral leg swelling, right worse than left Skin: No rashes, No breakdown Neurological: Grossly intact Psych/Mental Status: Appropriate Assessment & Plan Assessment/Plan (1) Dehydration: (2) Severe malnutrition: (3) RY (acute kidney injury): (4) Anemia: (5) Debility: (6) Generalized weakness: PLAN: Plan 1. RY, prerenal, in a patient with baseline creatinine of 0.7, secondary to dehydration, resolved Creatinine improved from 1.71 to 0.93 Continue IV fluids, trend lab 2. Acute extensive right lower extremity DVT, noted on Doppler ultrasound Vascular surgery consulted; planning for thrombectomy next week Started on oral Xarelto-discontinued Will need to check a pelvic ultrasound to rule out any pelvic obstruction to her venous system 3. Anemia, hemoglobin is 10.1, about her baseline Iron stores, stool for occult blood is pending 4. Recent acute UTI, continue on Cipro, Hiprex 5. 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 Rest of her chronic medical problems disease remained stable including hypothyroidism, hyperlipidemia, history of MS Continue on statin, Synthroid, Remeron, Zoloft 7. History of uterine CA s/p radiation and chemotherapy, follows with [facility] oncology 8. DVT PPx- On Xarelto Charges/Coding Visit Charges Inpatient E&M: 44810 Subs Hosp L2
[2022-09-02 12:26] LABS: Ferritin 234 ng/mL (8-252); Iron 12 ug/dL (50-170); Iron Binding Capacity,Total 239 ug/dL (250-450)
[2022-09-02 12:37] LABS: Partial Thromboplast Time 32.2 Seconds (24.1-36.2)
[2022-09-02] MEDS: Senna/Docusate Sodium 1 Tablet 2 TABLET PO (13:28)
[2022-09-02] MEDS: Magnesium Hydroxide 30 ML UDC PO (13:29)
[2022-09-02] MEDS: 0.9% Saline Lock 10 ML Syringe IV ×2 (13:31→17:21)
[2022-09-02 13:40] VITALS: BP 132/67; PULSE 91; RESP 18; TEMP 36.9; O2SAT 97
[2022-09-02] MEDS: Acetaminophen 325 MG Tablet 650 MG PO (18:14)
--- NOTE | 2022-09-02 18:28 | CASEMGMT ---
Social Work Consult: [facility] placement. Referral source: MONTSE PATEL This social sciences lecturer met with patient in room. Introduced self and social sciences lecturer role. Patient agreeable to meet with this social sciences lecturer. This social sciences lecturer broached topic of alf placement. Patient reports to be concerned about returning to home and is wanting to transfer to a senior care facility for strengthening and rehabilitation as patient lives alone. This social sciences lecturer provided patient with list or senior care facilities that are local to patient geographical region from [facility]. Patient first choice is [facility] in [place]. Patient unsure of second choice. Referral to [facility] initiated in [facility]. PLAN: retirement facility. Social Work to continue to follow. Marlen HERNANDEZ, ESPERANZA-S
[2022-09-02] MEDS: Mirtazapine 15 MG Tablet PO (21:56)
[2022-09-02] MEDS: Atorvastatin Calcium 40 MG Tablet PO (21:56)
[2022-09-02] MEDS: Latanoprost 0.005% 1 Bottle 1 DRP EACH EYE (21:57)
[2022-09-02 22:00] VITALS: BP 130/62; PULSE 78; RESP 18; TEMP 37.3; O2SAT 95
[2022-09-03] MEDS: Levothyroxine 25 MCG TABLET PO (05:14)
[2022-09-03 05:17] VITALS: BP 145/75; PULSE 85; RESP 18; TEMP 37.2; O2SAT 92
[2022-09-03 05:47] LABS: Absolute Lymphocyte Count 1.13 X10^3/uL (0.83-4.51); Absolute Neutrophil Count 8.3 X10^3/uL (2.0-7.7); Basophil# 0.03 X10^3/uL; Basophil% 0.3 % (0-1); Eosinophil# 0.22 X10^3/uL; Hematocrit 30.6 % (37-47); Hemoglobin 9.6 g/dL (12.0-15.0); Lymphocyte # 1.13 X10^3/ul (0.83-4.51); Lymphocyte % 10.4 % (19-41); Mean Corp Hgb Conc 31.4 g/dL (32-36); Mean Corpuscular Hgb 28.9 pg (27.0-32.0); Mean Corpuscular Volume 92.2 fL (81-99); Mean Platelet Vol. 9.5 fl (6.2-12.0); Monocyte# 1.03 X10^3/uL; Monocyte% 9.5 % (0-10); NRBC Flagged by Analyzer 0 % (0-5); Neutrophil # 8.29 X10^3/uL (2.7-7.7); Neutrophil % 76.4 % (47-70); Platelet Count 243 K/mm3 (150-450); RBC Distribution Width CV 13.7 % (11.6-14.6); RBC Distribution Width SD 46.2 fl (35.1-43.9); Red Blood Count 3.32 M/mm3 (4.2-5.4); White Blood Count 10.9 K/mm3 (4.4-11.0)
[2022-09-03 06:13] LABS: ALB/GLOB Ratio 0.7 RATIO (0.9-2.4); AST(SGOT) 13 U/L (15-37); Alanine Aminotransfer ALT/SGPT 13 U/L (13-56); Albumin, Serum 2.6 g/dL (3.2-5.0); Alkaline Phosphatase 77 U/L (45-117); Anion Gap 8 (5-15); BUN 18 mg/dL (7-18); BUN/Creat Ratio 20.4 RATIO (10-20); Calcium,Total 8.1 mg/dL (8.5-10.1); Chloride 107 mmol/L (98-107); Creatinine, Serum 0.88 mg/dL (0.55-1.02); EST Glomerular Filtration Rate 66 mL/min (>60); Est Glom Filt Rate - Afr Amer 80 mL/min (>60); Estimated Creatinine Clearance 44.98 ml/min; Globulin 3.6 g/dL (2.2-4.2); Glucose 99 mg/dL (74-106); Potassium 3.7 mmol/L (3.5-5.1); Protein, Total 6.2 g/dL (6.4-8.2); Sodium Level 140 mmol/L (136-145)
[2022-09-03 07:47] VITALS: O2SAT 97
--- NOTE | 2022-09-03 08:40 | PN.SURG_ITS ---
Subjective Subjective Patient is doing well this morning, no complaints. No acute events overnight. Her legs remain swollen, tight, and achy. She states she had an abdominal ultrasound done yesterday, not sure of the results yet. She reports she feels ready for discharge and anticipates being discharged to a rehab facility. She has compression stockings at home. Objective Data Objective Data A&Ox3, NAD No signs of respiratory distress, able to speak in complete sentences RRR Bilateral lower legs remain edematous, right worse than left. Palpable DP and PT pulses bilaterally. Appears stable from yesterday. Vital Signs: Vital Signs Temp Pulse Resp BP Pulse Ox O2 Del Method 98.9 F 85 18 145/75 H 97 Room Air 09/03/22 05:17 09/03/22 05:17 09/03/22 05:17 09/03/22 05:17 09/03/22 07:47 09/03/22 07:47 Oxygen Delivery Method Room Air Weight: 111 lb 15.917 oz Body Mass Index (BMI) 21.0 Intake & Output: Intake and Output for Last 24 Hours 09/01/22 09/02/22 09/03/22 23:59 23:59 23:59 Intake Total 2513 / 2513 1680.73 / 1680.73 Balance 2513 / 2513 1680.73 / 1680.73 Medical Nutrition Assessment Dietitian: Malnutrition Criteria Met Start: 09/01/22 17:06 Freq: Status: Active Protocol: Document 09/01/22 17:06 RMA (Rec: 09/01/22 17:06 RMA [id number]) Nutrition Malnutrition Evidence of Malnutrition Exists Yes Malnutrition (moderate): Chronic Evidenced By Suboptimal Energy Intake ( Moderate),Weight Loss ( Moderate),Physical Changes ( Moderate) Clinical Problem Chronic Disease or Condition Related Malnutrition Etiology Moderate pro-alfredo malnutrition in the context of chronic disease/debility related to inadequate oral intake Signs/Symptoms as evidenced by BMI 19.8, PO meeting less than 75% estimated nutrition needs, muscle/fat wasting in the face , clavicle, arms and legs Status Active Problem Recommendation Dietitian Recommendations/Changes Continue liberalized regular diet. Continue 120 ml ensure plus high protein 4 times per day w / medpass; likes chocolate. Will d/c Golden BID; skin intact. Will add 120 ml ensure clear TID w/ meals. Reweigh as able; trend weights closely. Lab / Micro Data Result Diagrams: 09/03/22 05:14 09/03/22 05:14 Labs: Laboratory Results - last 24 hr 09/02/22 04:42: Iron 12 L, TIBC 239 L, Iron Saturation 5.0 L, Ferritin 234 09/02/22 12:20: APTT 32.2 09/03/22 05:14: WBC 10.9, RBC 3.32 L, Hgb 9.6 L, Hct 30.6 L, MCV 92.2, MCH 28.9, MCHC 31.4 L, RDW Std Deviation 46.2 H, RDW Coeff of Lauro 13.7, Plt Count 243, MPV 9.5, Immature Gran % (Auto) 1.400 H, Neut % (Auto) 76.4 H, Lymph % (Auto) 10.4 L , [place] % (Auto) 9.5, Eos % (Auto) 2.0, Baso % (Auto) 0.3, Absolute Neuts (auto) 8.3 H, Absolute Lymphs (auto) 1.13, Nucleated RBC % 0 09/03/22 05:14: Sodium 140, Potassium 3.7, Chloride 107, Carbon Dioxide 25.0, Anion Gap 8, BUN 18, Creatinine 0.88, Estim Creat Clear Calc 44.98, Est GFR (MDRD) Af Amer 80, Est GFR (MDRD) Non-Af 66, BUN/Creatinine Ratio 20.4 H, Glucose 99, Calcium 8.1 L, Total Bilirubin 0.40, AST 13 L, ALT 13, Alkaline Phosphatase 77, Total Protein 6.2 L, Albumin 2.6 L, Globulin 3.6, Albumin/Globulin Ratio 0.7 L Micro: Microbiology 09/02/22 17:00 Stool Stool Occult Blood (CRYSTAL) - Final 08/31/22 15:25 Nasal Secretion SARS-CoV-2 & FLU Antigen (Rapid) - Final Assessment & Plan Assessment/Plan (1) DVT (deep venous thrombosis): (2) Presence of IVC filter: PLAN: Plan Patient remains hemodynamically stable. H&H stable. Kidney function improving. She is tolerating the Xarelto well thus far, no signs of bleeding. Scheduled for venogram with possible thrombectomy Friday 09/08. She will be admitted [facility] evening for heparin bridge. We will ensure we coordinate transport with whichever facility she is discharged too. Abdominal/pelvic ultrasound was obtained to evaluate for potential tumor recurrence which could be contributory to clot formation. Results pending. Of note, her last PET scan in May was negative for any recurrence. Continue to recommend she follow-up with her oncology team outpatient to coordinate any further testing as they deem appropriate. Recommend she wear her compression stockings daily to reduce edema and aching pain. Discharge planning per primary team. Charges/Coding Visit Charges Inpatient E&M: 37915 Subs Hosp L1
[2022-09-03] MEDS: Polyethylene Glycol 3350 17 GM PACKET PO (08:47)
[2022-09-03] MEDS: Senna/Docusate Sodium 1 Tablet 2 TABLET PO (08:47)
[2022-09-03] MEDS: Cholecalciferol (VIT D3) 25 MCG TABLET (1,000 UNITS) PO (08:47)
[2022-09-03] MEDS: Multivitamins,Therapeutic Tablet 1 TABLET PO (08:47)
[2022-09-03] MEDS: BRIMONIDINE 0.2% 5ML BOTTLE 2 DRP RIGHT EYE (08:47)
[2022-09-03] MEDS: Methenamine Hippurate 1 GM Tablet PO (08:47)
[2022-09-03] MEDS: Ciprofloxacin 500 MG Tablet PO (08:47)
[2022-09-03] MEDS: Sertraline 50 MG Tablet 125 MG PO (08:48)
[2022-09-03] MEDS: Rivaroxaban 15 MG Tablet PO ×2 (08:48→18:06)
[2022-09-03] MEDS: Ensure Plus High Protein 120 ML LIQUID PO ×2 (08:57→15:13)
[2022-09-03 09:01] VITALS: BP 140/81; PULSE 95; RESP 18; TEMP 36.9; O2SAT 95
[2022-09-03 10:00] VITALS: BP 140/81; PULSE 95; RESP 18; TEMP 36.9; O2SAT 96
--- NOTE | 2022-09-03 12:30 | CASEMGMT ---
Social Work SW met with pt and son Min and introduced self and role of SW. Pt and Min confirm that pt will need SNF at time of discharge. SW updated that [facility] is unable to accept pt. Pt and son reviewed SNF list and next choices are as follows. 1. [facility], 2. [facility] 3. [facility]. Referral to [facility] who does not have a bed today but possibly tomorrow. They will review case. SW sent referral to [facility] and [facility]. Will await determination. KARELY Shaw
--- NOTE | 2022-09-03 14:45 | PCM.PN.HOSP ---
Objective Data Objective Data Vital Signs: Vital Signs Temp Pulse Resp BP Pulse Ox O2 Del Method 98.4 F 95 18 140/81 H 96 Room Air 09/03/22 10:00 09/03/22 10:00 09/03/22 10:00 09/03/22 10:00 09/03/22 10:00 09/03/22 10:00 Oxygen Delivery Method Room Air Weight: 50.8 kg Body Mass Index (BMI) 21.0 Intake & Output: Intake and Output for Last 24 Hours 09/01/22 09/02/22 09/03/22 23:59 23:59 23:59 Intake Total 2513 / 2513 1680.73 / 1680.73 300 / 300 Balance 2513 / 2513 1680.73 / 1680.73 300 / 300 Medical Nutrition Assessment Dietitian: Malnutrition Criteria Met Start: 09/01/22 17:06 Freq: Status: Active Protocol: Document 09/01/22 17:06 RMA (Rec: 09/01/22 17:06 RMA [id number]) Nutrition Malnutrition Evidence of Malnutrition Exists Yes Malnutrition (moderate): Chronic Evidenced By Suboptimal Energy Intake ( Moderate),Weight Loss ( Moderate),Physical Changes ( Moderate) Clinical Problem Chronic Disease or Condition Related Malnutrition Etiology Moderate pro-alfredo malnutrition in the context of chronic disease/debility related to inadequate oral intake Signs/Symptoms as evidenced by BMI 19.8, PO meeting less than 75% estimated nutrition needs, muscle/fat wasting in the face , clavicle, arms and legs Status Active Problem Recommendation Dietitian Recommendations/Changes Continue liberalized regular diet. Continue 120 ml ensure plus high protein 4 times per day w / medpass; likes chocolate. Will d/c Golden BID; skin intact. Will add 120 ml ensure clear TID w/ meals. Reweigh as able; trend weights closely. Lab / Micro Data Result Diagrams: 09/03/22 05:14 09/03/22 05:14 Labs: Laboratory Results - last 24 hr 09/03/22 05:14: WBC 10.9, RBC 3.32 L, Hgb 9.6 L, Hct 30.6 L, MCV 92.2, MCH 28.9, MCHC 31.4 L, RDW Std Deviation 46.2 H, RDW Coeff of Lauro 13.7, Plt Count 243, MPV 9.5, Immature Gran % (Auto) 1.400 H, Neut % (Auto) 76.4 H, Lymph % (Auto) 10.4 L, [place] % (Auto) 9.5, Eos % (Auto) 2.0, Baso % (Auto) 0.3, Absolute Neuts (auto) 8.3 H, Absolute Lymphs (auto) 1.13, Nucleated RBC % 0 09/03/22 05:14: Sodium 140, Potassium 3.7, Chloride 107, Carbon Dioxide 25.0, Anion Gap 8, BUN 18, Creatinine 0.88, Estim Creat Clear Calc 44.98, Est GFR (MDRD) Af Amer 80, Est GFR (MDRD) Non-Af 66, BUN/Creatinine Ratio 20.4 H, Glucose 99, Calcium 8.1 L, Total Bilirubin 0.40, AST 13 L, ALT 13, Alkaline Phosphatase 77, Total Protein 6.2 L, Albumin 2.6 L, Globulin 3.6, Albumin/Globulin Ratio 0.7 L Micro: Microbiology 09/02/22 17:00 Stool Stool Occult Blood (CRYSTAL) - Final 08/31/22 15:25 Nasal Secretion SARS-CoV-2 & FLU Antigen (Rapid) - Final
--- NOTE | 2022-09-03 15:47 | PCM.TXEXTCAR ---
Diet Diet Order/Speech Therapy: 09/02/22 09:44 Diet: Regular - General Type of Dietary Supplement:: Ensure Clear Is pt able to select menu?: Yes Diet Comments: 120 ml ensure clear TID w/ meals Routine Orders/Code Status Suppository Type: Dulcolax 10mg Suppository Frequency: Daily PRN O2 Frequency: Continuous Keep PO Greater than or Equal to (%): 94 Routine Lab Work: CBC (WITHIN 3 DAYS) and - (CMP WITHIN 3 DAYS) Therapies Weight Bearing: Weight bearing as tolerated Physical Therapy: Eval and Treat Occupational Therapy: Eval and Treat Problem/Diagnosis (1) DVT (deep venous thrombosis): Status: Acute Code(s): I82.409 - Acute embolism and thrombosis of unspecified deep veins of unspecified lower extremity (2) Presence of IVC filter: Status: Acute Code(s): Z95.828 - Presence of other vascular implants and grafts Allergies/Procedures Done in Hospital Allergies codeine Allergy (Verified 08/31/22 13:37) Hives methylprednisolone Allergy (Verified 08/31/22 13:37) Hives Sulfa (Sulfonamide Antibiotics) Allergy (Verified 08/31/22 13:37) Hives erythromycin base Adverse Reaction (Verified 08/31/22 13:37) Upset Stomach Procedures: None Type of Care/Length of Stay Estimated LOS: Convalescent Care Less Than 30 days Type of Care Needed: Skilled Rehab Potential: Good Prognosis: Good Additional Orders/Day of Discharge Day of Discharge: 09/03/22 Dietary and Speech Recommendations Dietitian Recommendations/Changes: Continue liberalized regular diet. Continue 120 ml ensure plus high protein 4 times per day w/ medpass; likes chocolate. Will d/c Golden BID; skin intact. Will add 120 ml ensure clear TID w/ meals. Reweigh as able; trend weights closely. Discharge Plan Admission Admit Date/Time: 08/31/22 19:46 Primary Reason for Your Visit: RY/debility/acute right leg DVT Attending Provider: Mayra Wood Primary Care Provider: Rosmery Grady Consulting Providers: Sarina Solorio ; Ethan Schaefer Discharge Orders/Prescriptions Prescriptions: New sennosides-docusate sodium [Stool Softener-Stimulant Laxat] 8.6-50 mg Tablet 2 tab PO BID Qty: 0 0RF Rx Instructions: Hold for diarrhea or bowel movement more than 3 times a day Xarelto 15 mg Tablet 15 mg PO BIDCM Qty: 0 0RF Ensure Plus High Protein 0.08 gram-1.5 kcal/mL Liquid 120 ml PO 4X/DAY Qty: 0 0RF Continued atorvastatin 10 MG tablet 40 mg PO QHS ondansetron HCl 8 MG tablet 8 mg PO Q8H PRN PRN (Reason: Nausea) Label Comments: TAKE 1 TABLET BY MOUTH EVERY 8 HOURS NEEDED FOR NAUSEA/VOMITING. sertraline 100 MG tablet 125 mg PO DAILY Label Comments: TAKE 1 TABLET BY MOUTH EVERY DAY cholecalciferol (vitamin D3) [Vitamin D3] 1,000 UNIT tablet 1,000 unit PO DAILY multivitamin with folic acid [Thera] 1 TABLET tablet 1 tab PO DAILY travoprost 0.004 % drops 1 drp EACH EYE QHS Label Comments: USE 1 DROP IN BOTH EYES DAILY AT BEDTIME. potassium chloride 10 mEq tablet extended release 10 meq PO DAILY levothyroxine 25 mcg tablet 25 mcg PO DAILY methenamine hippurate 1 gram tablet 1 g PO BID Label Comments: TAKE 1 TABLET BY MOUTH TWICE A DAY WITH MEALS brimonidine 0.2 % drops 2 drp RIGHT EYE BID Label Comments: INSTILL 1 DROP INTO RIGHT EYE 3 TIMES A DAY mirtazapine 15 mg tablet 15 mg PO QHS Label Comments: 1 tablet by mouth once a day polyethylene glycol 3350 [Miralax] 17 gram/dose Powder 17 g PO DAILY Discontinued meloxicam 15 mg tablet 15 mg PO DAILY ciprofloxacin HCl 500 mg tablet 500 mg PO BID Label Comments: TAKE 1 TABLET BY MOUTH TWICE DAILY FOR 10 DAYS. furosemide 20 mg tablet 20 mg PO DAILY Referrals / Follow Up: Rosmery Grayd MD [Primary Care Provider] - Disposition Disposition (needs filled in before D/C Order can be placed): Group Home Facility
--- NOTE | 2022-09-03 15:54 | PCM.DC.SUM ---
Providers Date of Admission: 08/31/22 Date of Discharge: 09/03/22 Primary Care Physician: Rosmery Grady MD Consultations 09/01/22 16:36 Consult: Vascular Surgery Routine Consulting Provider: Ethan Schaefer Reason for Consult: Acute right extensive DVT EMERGENT Consult: No MD Notified: Yes Date Notified: 09/01/22 Time Notified: 16:37 Method of Notification: Verbal Reason For Visit: ANEMIA, RY Diagnosis Discharge Diagnosis (1) DVT (deep venous thrombosis): Status: Acute Code(s): I82.409 - Acute embolism and thrombosis of unspecified deep veins of unspecified lower extremity (2) Presence of IVC filter: Status: Acute Code(s): Z95.828 - Presence of other vascular implants and grafts Medications at Discharge Home Medications atorvastatin 10 mg tablet 40 mg PO QHS cholesterol lowering 09/08/18 cholecalciferol (vitamin D3) 25 mcg (1,000 unit) tablet (Vitamin D3) 1,000 unit PO DAILY supplement 09/08/18 multivitamin with folic acid 400 mcg tablet (Thera) 1 tab PO DAILY supplement 09/08/18 ondansetron HCl 8 mg tablet 8 mg PO Q8H PRN PRN Nausea 09/08/18 sertraline 100 mg tablet 125 mg PO DAILY mental health 09/08/18 brimonidine 0.2 % eye drops 2 drp RIGHT EYE BID glaucoma 08/31/22 levothyroxine 25 mcg tablet 25 mcg PO DAILY throid 08/31/22 methenamine hippurate 1 gram tablet 1 g PO BID UTI 08/31/22 mirtazapine 15 mg tablet 15 mg PO QHS sleep 08/31/22 polyethylene glycol 3350 17 gram/dose oral powder (Miralax) 17 g PO DAILY constipation 08/31/22 potassium chloride 10 mEq tablet,extended release 10 meq PO DAILY supplement 08/31/22 travoprost 0.004 % eye drops 1 drp EACH EYE QHS glaucoma 08/31/22 food supplemt, lactose-reduced 0.08 gram-1.5 kcal/mL oral liquid (Ensure Plus High Protein) 120 ml PO 4X/DAY #0 mL 09/03/22 rivaroxaban 15 mg tablet (Xarelto) 15 mg PO BIDCM #0 tabs 09/03/22 sennosides 8.6 mg-docusate sodium 50 mg tablet (Stool Softener-Stimulant Laxative) 2 tab PO BID #0 tabs 09/03/22 Hospital Course Operations None Procedures None Summary of Care Provided Minutes Spent on Discharge: 35 Hospital Course: 76-year-old with past medical history of MS, uterine CA, status post ÓSCAR/BSO, on chemotherapy, has a right-sided port, who comes in with nausea and vomiting as well as generalized weakness. Patient lives alone and had a viral illness a few days prior to admission. She started having nausea and vomiting as well as poor p.o. intake. She was recently diagnosed with with acute UTI and was on Cipro. Her family was concerned about her generalized weakness and also noticed that her lower extremities were more swollen than they are typically. Patient was noticed to the ED to have acute kidney injury. She was admitted creatinine 1.71 with a baseline of 0.7. Doppler ultrasound lower extremity shows acute extensive right lower extremity DVT. Patient was started on heparin drip. Vascular surgery was consulted. Plan is for a thrombectomy next week Wednesday. Patient generally continue to remain stable. She was seen by PT and OT and skilled for discharge to custodial facility. She will return on Wednesday evening and be transitioned to heparin drip for procedure on Wednesday with vascular surgery. Physical Exam Narrative Physical exam: General: Alert, Oriented x3, Cooperative HEENT: Atraumatic Oral: Moist Mucosa Neck: Supple Lungs: Clear to auscultation Cardiovascular: HS I+II, regular, no murmurs Abdomen: Bowel Sounds Present, Soft, Non Tender Extremities: Bilateral leg swelling, right worse than left Skin: No rashes, No breakdown Neurological: Grossly intact Psych/Mental Status: Appropriate Medical Records Data Medical Nutrition Assessment Dietitian: Malnutrition Criteria Met Start: 09/01/22 17:06 Freq: Status: Active Protocol: Document 09/01/22 17:06 RMA (Rec: 09/01/22 17:06 RMA [id number]) Nutrition Malnutrition Evidence of Malnutrition Exists Yes Malnutrition (moderate): Chronic Evidenced By Suboptimal Energy Intake ( Moderate),Weight Loss ( Moderate),Physical Changes ( Moderate) Clinical Problem Chronic Disease or Condition Related Malnutrition Etiology Moderate pro-alfredo malnutrition in the context of chronic disease/debility related to inadequate oral intake Signs/Symptoms as evidenced by BMI 19.8, PO meeting less than 75% estimated nutrition needs, muscle/fat wasting in the face , clavicle, arms and legs Status Active Problem Recommendation Dietitian Recommendations/Changes Continue liberalized regular diet. Continue 120 ml ensure plus high protein 4 times per day w / medpass; likes chocolate. Will d/c Golden BID; skin intact. Will add 120 ml ensure clear TID w/ meals. Reweigh as able; trend weights closely. Weight / BMI Weight Weight: 50.8 kg Body Mass Index (BMI) 21.0 ABG / Lab / Microbiology Data Result Diagrams: 09/03/22 05:14 09/03/22 05:14 Laboratory: Laboratory Results - last 24 hr 09/03/22 05:14: WBC 10.9, RBC 3.32 L, Hgb 9.6 L, Hct 30.6 L, MCV 92.2, MCH 28.9, MCHC 31.4 L, RDW Std Deviation 46.2 H, RDW Coeff of Lauro 13.7, Plt Count 243, MPV 9.5, Immature Gran % (Auto) 1.400 H, Neut % (Auto) 76.4 H, Lymph % (Auto) 10.4 L, [place] % (Auto) 9.5, Eos % (Auto) 2.0, Baso % (Auto) 0.3, Absolute Neuts (auto) 8.3 H, Absolute Lymphs (auto) 1.13, Nucleated RBC % 0 09/03/22 05:14: Sodium 140, Potassium 3.7, Chloride 107, Carbon Dioxide 25.0, Anion Gap 8, BUN 18, Creatinine 0.88, Estim Creat Clear Calc 44.98, Est GFR (MDRD) Af Amer 80, Est GFR (MDRD) Non-Af 66, BUN/Creatinine Ratio 20.4 H, Glucose 99, Calcium 8.1 L, Total Bilirubin 0.40, AST 13 L, ALT 13, Alkaline Phosphatase 77, Total Protein 6.2 L, Albumin 2.6 L, Globulin 3.6, Albumin/Globulin Ratio 0.7 L Microbiology: Microbiology 09/02/22 17:00 Stool Stool Occult Blood (CRYSTAL) - Final 08/31/22 15:25 Nasal Secretion SARS-CoV-2 & FLU Antigen (Rapid) - Final D/C Instructions Discharge Diet: No restrictions Meaningful Use Info Meaningful Use Diagnoses (Choose all that apply): None applicable Discharge Plan Admission Admit Date/Time: 08/31/22 19:46 Primary Reason for Your Visit: RY/debility/acute right leg DVT Attending Provider: Mayra Wood Primary Care Provider: Rosmery Grady Consulting Providers: Sarina Solorio ; Ethan Schaefer Discharge Orders/Prescriptions Prescriptions: New sennosides-docusate sodium [Stool Softener-Stimulant Laxat] 8.6-50 mg Tablet 2 tab PO BID Qty: 0 0RF Rx Instructions: Hold for diarrhea or bowel movement more than 3 times a day Xarelto 15 mg Tablet 15 mg PO BIDCM Qty: 0 0RF Ensure Plus High Protein 0.08 gram-1.5 kcal/mL Liquid 120 ml PO 4X/DAY Qty: 0 0RF Continued atorvastatin 10 MG tablet 40 mg PO QHS ondansetron HCl 8 MG tablet 8 mg PO Q8H PRN PRN (Reason: Nausea) Label Comments: TAKE 1 TABLET BY MOUTH EVERY 8 HOURS NEEDED FOR NAUSEA/VOMITING. sertraline 100 MG tablet 125 mg PO DAILY Label Comments: TAKE 1 TABLET BY MOUTH EVERY DAY cholecalciferol (vitamin D3) [Vitamin D3] 1,000 UNIT tablet 1,000 unit PO DAILY multivitamin with folic acid [Thera] 1 TABLET tablet 1 tab PO DAILY travoprost 0.004 % drops 1 drp EACH EYE QHS Label Comments: USE 1 DROP IN BOTH EYES DAILY AT BEDTIME. potassium chloride 10 mEq tablet extended release 10 meq PO DAILY levothyroxine 25 mcg tablet 25 mcg PO DAILY methenamine hippurate 1 gram tablet 1 g PO BID Label Comments: TAKE 1 TABLET BY MOUTH TWICE A DAY WITH MEALS brimonidine 0.2 % drops 2 drp RIGHT EYE BID Label Comments: INSTILL 1 DROP INTO RIGHT EYE 3 TIMES A DAY mirtazapine 15 mg tablet 15 mg PO QHS Label Comments: 1 tablet by mouth once a day polyethylene glycol 3350 [Miralax] 17 gram/dose Powder 17 g PO DAILY Discontinued meloxicam 15 mg tablet 15 mg PO DAILY ciprofloxacin HCl 500 mg tablet 500 mg PO BID Label Comments: TAKE 1 TABLET BY MOUTH TWICE DAILY FOR 10 DAYS. furosemide 20 mg tablet 20 mg PO DAILY Referrals / Follow Up: Rosmery Grady MD [Primary Care Provider] - Disposition Disposition (needs filled in before D/C Order can be placed): Shelter Facility Charges/Coding Visit Charges Inpatient E&M: 96810 Disch Hosp >30min
--- NOTE | 2022-09-03 16:01 | CASEMGMT ---
Social Work [facility] are not able to accept pt. YADY spoke with TCU and a bed has opened up and pt can be admitted to TCU today. Physician updated and plans to discharge today. SW met with pt and dgt in law and informed of above. Both parties are agreeable to discharge plan to TCU today. Dgt in law will update Min. Nursing updated. Plan: TCU, skilled level of care KARELY Shaw
[2022-09-03 20:29] VITALS: BP 126/61; PULSE 89; RESP 18; TEMP 36.7; O2SAT 96
== END 2022-09-03 20:45 | DRG 682 ==
LOC: ED 15:43 → MS3 20:05
PROVIDERS: Admitting Provider Internal Medicine; Emergency Provider Student in an Organized Health Care Education/Training Program; PCP Internal Medicine; Visit Provider Internal Medicine
DX: N17.9 Acute kidney failure, unspecified (principal); E43 Unspecified severe protein-calorie malnutrition; I82.411 Acute embolism and thrombosis of right femoral vein; I82.431 Acute embolism and thrombosis of right popliteal vein; I82.441 Acute embolism and thrombosis of right tibial vein; I82.451 Acute embolism and thrombosis of right peroneal vein; N39.0 Urinary tract infection, site not specified; I50.9 Heart failure, unspecified; I82.461 Acute embolism and thrombosis of right calf muscular vein; G35 Multiple sclerosis; E86.0 Dehydration; E03.9 Hypothyroidism, unspecified; E78.5 Hyperlipidemia, unspecified; D64.9 Anemia, unspecified; K59.09 Other constipation; H40.9 Unspecified glaucoma; Z68.21 Body mass index [BMI] 21.0-21.9, adult; Z66 Do not resuscitate; Z79.01 Long term (current) use of anticoagulants; Z79.890 Hormone replacement therapy; Z79.899 Other long term (current) drug therapy; Z86.711 Personal history of pulmonary embolism; Z85.42 Personal history of malignant neoplasm of other parts of uterus; Z92.21 Personal history of antineoplastic chemotherapy; Z95.828 Presence of other vascular implants and grafts
CPT/HCPCS: 36415; 36591; 71045; 80053; 81001; 82274; 82728; 83540; 83550; 83735; 83880; 84100; 84484; 85025; 85730; 87428; 87633; 87811; 93005; 93970; 97162; 97166; 97802; 99252; 99285; J7030; J7120; A4216; G0463; J2405

== ENCOUNTER 2022-09-03 21:00 | Inpatient (IN) | payer MEDICARE, SELFPAY ==
[2022-09-03 22:00] VITALS: BP 139/70; PULSE 82; RESP 16; TEMP 37; O2SAT 98
--- NOTE | 2022-09-03 22:03 | NURSING ---
Addendum entered by Christina Corea 09/05/22 23:59: CORRECTION: PER MS3 CHARGE (HOLLY) PATIENT IS PLANNED TO READMIT TO [facility] ON Wednesday09/07/22 IN PREPARATION FOR UPCOMING THROMBECTOMY ON 09/08/22 Original Note: Per [facility] charge (holly) patient is planned to readmit to [facility] on Wednesday09/07/21 in preparation for upcoming thrombectomy on 09/08/21
[2022-09-03] MEDS: BRIMONIDINE 0.2% 5ML BOTTLE 2 DRP RIGHT EYE (22:45)
[2022-09-03] MEDS: Atorvastatin Calcium 40 MG Tablet PO (22:52)
[2022-09-03] MEDS: Senna/Docusate Sodium 1 Tablet 2 TABLET PO (22:52)
[2022-09-03] MEDS: Mirtazapine 15 MG Tablet PO (22:52)
[2022-09-03] MEDS: Methenamine Hippurate 1 GM Tablet PO (22:52)
[2022-09-03] MEDS: Latanoprost 0.005% 1 Bottle 1 DRP EACH EYE (22:54)
[2022-09-03] MEDS: Ensure Plus High Protein 120 ML LIQUID PO (22:58)
--- NOTE | 2022-09-03 23:58 | NURSING ---
Dr. Min notified of patient admit to unit
[2022-09-04 05:17] LABS: Absolute Lymphocyte Count 1.39 X10^3/uL (0.83-4.51); Absolute Neutrophil Count 7.8 X10^3/uL (2.0-7.7); Basophil# 0.05 X10^3/uL; Basophil% 0.5 % (0-1); Eosinophil# 0.29 X10^3/uL; Eosinophils% 2.7 % (0-5); Hematocrit 28.8 % (37-47); Hemoglobin 9.1 g/dL (12.0-15.0); Lymphocyte # 1.39 X10^3/ul (0.83-4.51); Lymphocyte % 13.1 % (19-41); Mean Corp Hgb Conc 31.6 g/dL (32-36); Mean Corpuscular Hgb 28.3 pg (27.0-32.0); Mean Corpuscular Volume 89.4 fL (81-99); Mean Platelet Vol. 9.3 fl (6.2-12.0); Monocyte# 0.96 X10^3/uL; NRBC Flagged by Analyzer 0 % (0-5); Neutrophil # 7.79 X10^3/uL (2.7-7.7); Neutrophil % 73.1 % (47-70); Platelet Count 320 K/mm3 (150-450); RBC Distribution Width CV 13.6 % (11.6-14.6); RBC Distribution Width SD 44.9 fl (35.1-43.9); Red Blood Count 3.22 M/mm3 (4.2-5.4); White Blood Count 10.7 K/mm3 (4.4-11.0)
[2022-09-04 05:41] LABS: Anion Gap 10 (5-15); BUN 17 mg/dL (7-18); BUN/Creat Ratio 21.9 RATIO (10-20); Calcium,Total 8.2 mg/dL (8.5-10.1); Chloride 107 mmol/L (98-107); Creatinine, Serum 0.78 mg/dL (0.55-1.02); EST Glomerular Filtration Rate 77 mL/min (>60); Est Glom Filt Rate - Afr Amer 93 mL/min (>60); Estimated Creatinine Clearance 40.83 ml/min; Glucose 106 mg/dL (74-106); Potassium 3.6 mmol/L (3.5-5.1); Sodium Level 139 mmol/L (136-145)
[2022-09-04] MEDS: Ensure Plus High Protein 120 ML LIQUID PO ×2 (06:17→12:05)
[2022-09-04] MEDS: Polyethylene Glycol 3350 17 GM PACKET PO (06:18)
[2022-09-04] MEDS: Senna/Docusate Sodium 1 Tablet 2 TABLET PO ×2 (06:18→18:10)
[2022-09-04] MEDS: Levothyroxine 25 MCG TABLET PO (06:18)
[2022-09-04] MEDS: Cholecalciferol (VIT D3) 25 MCG TABLET (1,000 UNITS) PO (06:18)
[2022-09-04] MEDS: Sertraline 50 MG Tablet 125 MG PO (06:18)
[2022-09-04] MEDS: BRIMONIDINE 0.2% 5ML BOTTLE 2 DRP RIGHT EYE ×2 (06:19→18:11)
[2022-09-04] MEDS: Methenamine Hippurate 1 GM Tablet PO ×2 (06:20→18:10)
--- NOTE | 2022-09-04 07:45 | HP.PCM_ITS ---
HPI - General General Date of Admission: 09/03/22 Date of Service: 09/04/22 Chief Complaint: Here for rehabilitation. HPI Narrative 08/31/2022 LAKESHIA OSEGUERA, is a 76 Female who presents to [facility] Emergency Department with shortness of breath. 08/31/2022 EKG sinus rhythm with premature atrial contractions, minimal voltage cr iteria for LVH, maybe normal variant, poor R wave progression. Short of breath, fever, viral symptoms, nausea/vomiting, decreased oral intake. History of blood clots, status post IVC filter [address] René Paredes. She has only every had 1 episode of DVT. Blood in stool, on Cipro for urinary tract infection. Weakness, Troponin 25, WBC 12.5, BNP okay. Chest X-ray okay. 08/31/2022 Admit to Hospital. PT/OT for debility. covid19 negative, influenza negative. Check stool guaiac, monitor hemoglobin/hematocrit for anemia. Continue Cipro for urinary tract infection. 09/01/2022 Feels better, Doppler shows extensive right lower extremity DVT. Creatinine improved from 1.71 to 1.43. Heparin drip, Vascular consult for extensive right lower extremity DVT. Check iron studies for anemia. 09/02/2022 Vascular surgery recommends thrombectomy. PT/OT recommends SNF. Plan thrombectomy 09/08/2022. 09/03/2022 Admit to TCU with debility, here for rehabilitation, strengthening. Readmit to [facility] 09/07/2022 for heparin drip, then thrombectomy 09/08/2022. [facility] Medical History Brain bleed Glaucoma Multiple sclerosis Presence of IVC filter Pulmonary embolism Pulmonary nodule Uterine cancer Home Medications atorvastatin 10 mg tablet 40 mg PO QHS cholesterol lowering 09/08/18 [History Last Taken 08/30/22] cholecalciferol (vitamin D3) 25 mcg (1,000 unit) tablet (Vitamin D3) 1,000 unit PO DAILY supplement 09/08/18 [History Last Taken 09/07/18] multivitamin with folic acid 400 mcg tablet (Thera) 1 tab PO DAILY supplement 09/08/18 [History Last Taken 08/31/22] ondansetron HCl 8 mg tablet 8 mg PO Q8H PRN PRN Nausea 09/08/18 [History Last T aken 09/07/18] sertraline 100 mg tablet 125 mg PO DAILY mental health 09/08/18 [History Last Taken 08/31/22] brimonidine 0.2 % eye drops 2 drp RIGHT EYE BID glaucoma 08/31/22 [History Last Taken 08/30/22] levothyroxine 25 mcg tablet 25 mcg PO DAILY thyroid 08/31/22 [History Last Taken 08/31/22] methenamine hippurate 1 gram tablet 1 g PO BID UTI 08/31/22 [History Last Taken 08/30/22] mirtazapine 15 mg tablet 15 mg PO QHS sleep 08/31/22 [History Last Taken 08/30/22] polyethylene glycol 3350 17 gram/dose oral powder (Miralax) 17 g PO DAILY constipation 08/31/22 [History Last Taken 08/30/22] potassium chloride 10 mEq tablet,extended release 10 meq PO DAILY supplement 08/31/22 [History Last Taken 08/31/22] travoprost 0.004 % eye drops 1 drp EACH EYE QHS glaucoma 08/31/22 [History Last Taken 08/30/22] food supplemt, lactose-reduced 0.08 gram-1.5 kcal/mL oral liquid (Ensure Plus High Protein) 120 ml PO 4X/DAY supplement 09/03/22 [History Last Taken Unknown] rivaroxaban 15 mg tablet (Xarelto) 15 mg PO BIDCM Check with primary doctor 09/03/22 [History Last Taken Unknown] sennosides 8.6 mg-docusate sodium 50 mg tablet (Stool Softener-Stimulant Laxative) 2 tab PO BID stool softener 09/03/22 [History Last Taken Unknown] Allergy/AdvReac Type Severity Reaction Status Date / Time codeine Allergy Hives Verified 08/31/22 13:37 methylprednisolone Allergy Hives Verified 08/31/22 13:37 Sulfa (Sulfonamide Allergy Hives Verified 08/31/22 13:37 Antibiotics) erythromycin base AdvReac Upset Verified 08/31/22 13:37 Stomach Surgical History H/O: hysterectomy History of section Social History household members: none housing: house Smoking Status: Never smoker alcohol intake: never substance use type: does not use ROS Constitutional Constitutional: Reports weakness; Denies chills, fever(s) or weight gain ENT HEENT: Denies headache(s), nasal congestion or nasal discharge Cardiovascular Cardiovascular: Denies chest pain or palpitations Respiratory/Chest Respiratory/Chest: Denies cough, excessive phlegm production or shortness of breath with exertion Gastrointestinal Gastrointestinal: Denies abdominal pain, nausea or vomiting Genitourinary Genitourinary: Denies dysuria Musculoskeletal Musculoskeletal: Denies joint pain or joint swelling Integumentary Integumentary: Denies rash or wounds Neurologic Neurologic: Denies focal weakness, numbness or tingling Psychiatric Psychiatric: Denies anxiety, auditory hallucinations, depression, homicidal id eation or suicidal ideation Vital Signs Vital Signs Vital Signs: 09/03/22 22:00 09/03/22 22:00 Temperature 98.6 F Temperature Source Temporal Pulse Rate 82 82 Pulse Rhythm Regular Pulse Strength Normal (2+) Respiratory Rate 16 16 Respiratory Effort Normal Non-Labored Respiratory Depth Normal Respiratory Pattern Normal Blood Pressure 139/70 H Blood Pressure Mean 93 Blood Pressure Source Manual Pulse Ox 98 98 Oxygen Delivery Method Room Air Weight Weight: 55.792 kg Physical Exam Const alert General Appearance: cooperative HEENT normocephalic Eyes PERRL and EOMs intact bilaterally Neck supple, no JVD and no carotid bruits Resp normal respiratory effort, normal air movement and clear to auscultation bilaterally Cardio regular rate and regular rhythm GI normal to inspection, nondistended, normoactive bowel sounds, non-tender and non-distended Extremity normal capillary refill Extremity Narrative: Right lower extremity tender to palpation. General Extremity: edema right Skin no rashes or lesions noted General Skin Exam: no breakdown Psych affect normal Appearance: appropriate Results Lab / Micro Data Result Diagrams: 09/04/22 05:00 09/04/22 05:00 Labs: Laboratory Results - last 24 hr 09/04/22 05:00: WBC 10.7, RBC 3.22 L, Hgb 9.1 L, Hct 28.8 L, MCV 89.4, MCH 28.3, MCHC 31.6 L, RDW Std Deviation 44.9 H, RDW Coeff of Lauro 13.6, Plt Count 320, MPV 9.3, Immature Gran % (Auto) 1.600 H, Neut % (Auto) 73.1 H, Lymph % (Auto) 13.1 L , [place] % (Auto) 9.0, Eos % (Auto) 2.7, Baso % (Auto) 0.5, Absolute Neuts (auto) 7.8 H, Absolute Lymphs (auto) 1.39, Nucleated RBC % 0 09/04/22 05:00: Sodium 139, Potassium 3.6, Chloride 107, Carbon Dioxide 22.0, Anion Gap 10, BUN 17, Creatinine 0.78, Estim Creat Clear Calc 40.83, Est GFR (MDRD) Af Amer 93, Est GFR (MDRD) Non-Af 77, BUN/Creatinine Ratio 21.9 H, Glucose 106, Calcium 8.2 L Assessment & Plan Assessment/Plan (1) Debility: (2) DVT (deep venous thrombosis): (3) Generalized weakness: (4) Anemia: (5) RY (acute kidney injury): (6) Dehydration: (7) Multiple sclerosis: (8) Hyperlipidemia: (9) Glaucoma: (10) Anxiety: (11) Depression: PLAN: Plan 76 year old female with below past medical history hospitalized for weakness, a cute kidney injury, dehydration, anemia, found to have extensive right lower extremity DVT, admitted to TCU with debility, here for rehabilitation, strengthening, then return to [facility] 09/07/2022 for heparin drip, then thrombectomy 09/08/[address] Schaefer. * Debility - PT/OT. * Pain - Tylenol 1000mg q6h prn pain (1-10). * Bowel - Miralax 17gm daily, senna/colace 2 tablets bid. * Adult immunization - Administer pneumonia vaccine, covid19 vaccine, flu vaccine as appropriate. * DVT prophylaxis - Not necessary, on Xarelto. * Hyperlipidemia - Atorvastatin 40mg qhs. * Glaucoma - Brimonidine 0.2% 2gtt od bid, Latanoprost 0.005% 1gtt ou qhs. * Nutrition - Ensure Plus 120ml 4x/day, MVI daily. * Hypothyroidism - Levothyroxine 25mcg daily. * Skin irritation - Calmoseptine topical bid. * Recurrent UTI - Methenamine 1gm bid. * Depression - Mirtazapine 15mg qhs, stable chronic spa concierge use, GDR not recommended. * Nausea - Zofran 8mg q8h prn. * Hypokalemia - KCL 10meq daily. * Vitamin D deficiency - D3 25mcg daily. * Extensive right lower extremity DVT: Xarelto 15mg bid thru 09/06/2022, [facility] heparin drip 09/07/2022, Dr. Schaefer thrombectomy 09/08/2022.
[2022-09-04] MEDS: Multivitamins,Therapeutic Tablet 1 TABLET PO (08:43)
[2022-09-04] MEDS: Potassium Chloride Oral Tablet 10 MEQ PO (08:43)
[2022-09-04] MEDS: Rivaroxaban 15 MG Tablet PO ×2 (08:43→18:09)
[2022-09-04] MEDS: Tuberculin,Purif.prot.deriv. 50 TU/ML Vial 0.1 ML ID (12:05)
--- NOTE | 2022-09-04 14:07 | NURSING ---
Television Service Engineer Note; Activity Asset: Complete Rosita is independent in her choice of daily activities. Rosita has stated she wish not to have visits from the Therapy dog and I put a sign on her door. She reads, watches tv, and visit w/her family, friends, and registered nurses whom is her son. Rosita is very pleasant and stated when ready she would like to attend bingo and small group activities.
[2022-09-04 14:24] VITALS: BP 123/63; PULSE 91; RESP 18; TEMP 37.1; O2SAT 96
--- NOTE | 2022-09-04 15:24 | CASEMGMT ---
Addendum entered by Dipika Hall 09/04/22 15:26: Pt agreeable for son to bring in copies of advanced directives. Original Note: Social Work Met with patient to complete initial assessment. Introduced self and role. Verified/updated contacts. Discussed code status and MOLST form. Pt confirms DNR-CC. MOLST placed in Dr folder. Educated to [facility] insurance and continued stay is not guaranteed with each review. Pt's goal is to return home alone. SW to continue to follow for DC planning. Dipika Hall, [employer] LABOURER L[employer] MARKER INSTALLER
[2022-09-04] MEDS: Acetaminophen 500 MG Tablet 1000 MG PO (18:09)
[2022-09-04] MEDS: Menthol/Lanolin/Calamine/Znox 113 GM Tube 1 APPLIC TOPICAL (19:52)
[2022-09-04 20:00] VITALS: PULSE 84; RESP 16; O2SAT 96
[2022-09-04] MEDS: Atorvastatin Calcium 40 MG Tablet PO (21:39)
[2022-09-04] MEDS: Mirtazapine 15 MG Tablet PO (21:39)
[2022-09-04] MEDS: Latanoprost 0.005% 1 Bottle 1 DRP EACH EYE (21:40)
[2022-09-05] MEDS: BRIMONIDINE 0.2% 5ML BOTTLE 2 DRP RIGHT EYE ×2 (05:09→17:44)
[2022-09-05] MEDS: Sertraline 50 MG Tablet 125 MG PO (05:10)
[2022-09-05] MEDS: Levothyroxine 25 MCG TABLET PO (05:10)
[2022-09-05] MEDS: Cholecalciferol (VIT D3) 25 MCG TABLET (1,000 UNITS) PO (05:11)
[2022-09-05] MEDS: Senna/Docusate Sodium 1 Tablet 2 TABLET PO ×2 (05:11→17:44)
[2022-09-05] MEDS: Polyethylene Glycol 3350 17 GM PACKET PO (05:11)
[2022-09-05] MEDS: Methenamine Hippurate 1 GM Tablet PO ×2 (05:13→17:44)
[2022-09-05] MEDS: Potassium Chloride Oral Tablet 10 MEQ PO (08:11)
[2022-09-05] MEDS: Multivitamins,Therapeutic Tablet 1 TABLET PO (08:11)
[2022-09-05] MEDS: Rivaroxaban 15 MG Tablet PO ×2 (08:12→17:44)
[2022-09-05 09:29] VITALS: PULSE 70; RESP 16
[2022-09-05] MEDS: Acetaminophen 500 MG Tablet 1000 MG PO ×2 (13:15→21:12)
[2022-09-05 16:00] VITALS: BP 115/57; PULSE 78; RESP 18; TEMP 37.7; O2SAT 95
[2022-09-05] MEDS: Latanoprost 0.005% 1 Bottle 1 DRP EACH EYE (21:09)
[2022-09-05] MEDS: Atorvastatin Calcium 40 MG Tablet PO (21:12)
[2022-09-05] MEDS: Mirtazapine 15 MG Tablet PO (21:12)
[2022-09-06] MEDS: Senna/Docusate Sodium 1 Tablet 2 TABLET PO ×2 (06:10→17:30)
[2022-09-06] MEDS: Polyethylene Glycol 3350 17 GM PACKET PO (06:10)
[2022-09-06] MEDS: Levothyroxine 25 MCG TABLET PO (06:11)
[2022-09-06] MEDS: Methenamine Hippurate 1 GM Tablet PO ×2 (06:11→17:30)
[2022-09-06] MEDS: Cholecalciferol (VIT D3) 25 MCG TABLET (1,000 UNITS) PO (06:11)
[2022-09-06] MEDS: BRIMONIDINE 0.2% 5ML BOTTLE 2 DRP RIGHT EYE ×2 (06:12→17:30)
[2022-09-06] MEDS: Sertraline 50 MG Tablet 125 MG PO (06:19)
[2022-09-06] MEDS: Potassium Chloride Oral Tablet 10 MEQ PO (07:59)
[2022-09-06] MEDS: Multivitamins,Therapeutic Tablet 1 TABLET PO (07:59)
[2022-09-06] MEDS: Rivaroxaban 15 MG Tablet PO ×2 (07:59→17:30)
[2022-09-06] MEDS: Menthol/Lanolin/Calamine/Znox 113 GM Tube 1 APPLIC TOPICAL ×2 (08:05→20:56)
[2022-09-06 15:00] VITALS: BP 131/63; PULSE 95; RESP 20; TEMP 37.3; O2SAT 93
[2022-09-06 20:45] VITALS: PULSE 82; RESP 14; O2SAT 98
[2022-09-06] MEDS: Acetaminophen 500 MG Tablet 1000 MG PO (20:54)
[2022-09-06] MEDS: Latanoprost 0.005% 1 Bottle 1 DRP EACH EYE (20:55)
[2022-09-06] MEDS: Atorvastatin Calcium 40 MG Tablet PO (20:56)
[2022-09-06] MEDS: Mirtazapine 15 MG Tablet PO (20:56)
[2022-09-07] MEDS: BRIMONIDINE 0.2% 5ML BOTTLE 2 DRP RIGHT EYE ×2 (05:45→16:51)
[2022-09-07] MEDS: Methenamine Hippurate 1 GM Tablet PO ×2 (05:45→16:50)
[2022-09-07] MEDS: Levothyroxine 25 MCG TABLET PO (05:46)
[2022-09-07] MEDS: Cholecalciferol (VIT D3) 25 MCG TABLET (1,000 UNITS) PO (05:46)
[2022-09-07] MEDS: Sertraline 50 MG Tablet 125 MG PO (05:46)
--- NOTE | 2022-09-07 06:47 | NURSING ---
Per warehouse helper, plan is for patient to readmit to [facility] around 1500 today in preparation for thrombectomy tomorrow.
--- NOTE | 2022-09-07 07:45 | PCM.DC.SUM ---
Providers Date of Admission: 09/03/22 Primary Care Physician: Rosmery Grady MD Reason For Visit: WEAKNESS Diagnosis Discharge Diagnosis (1) Debility: Status: Acute Code(s): R53.81 - Other malaise (2) DVT (deep venous thrombosis): Status: Acute Code(s): I82.409 - Acute embolism and thrombosis of unspecified deep veins of unspecified lower extremity (3) Generalized weakness: Status: Acute Code(s): R53.1 - Weakness (4) Anemia: Status: Acute Code(s): D64.9 - Anemia, unspecified (5) RY (acute kidney injury): Status: Acute Code(s): N17.9 - Acute kidney failure, unspecified (6) Dehydration: Status: Acute Code(s): E86.0 - Dehydration (7) Multiple sclerosis: Status: Acute Code(s): G35 - Multiple sclerosis (8) Hyperlipidemia: Status: Acute Code(s): E78.5 - Hyperlipidemia, unspecified (9) Glaucoma: Status: Acute Code(s): H40.9 - Unspecified glaucoma (10) Anxiety: Status: Acute Code(s): F41.9 - Anxiety disorder, unspecified (11) Depression: Status: Acute Code(s): F32.A - Depression, unspecified Plan 76 year old female with below past medical history hospitalized for weakness, acute kidney injury, dehydration, anemia, found to have extensive right lower extremity DVT, admitted to TCU with debility, here for rehabilitation, strengthening, then return to [facility] 09/07/2022 for heparin drip, then thrombectomy 09/08/[address] Schaefer. Debility - PT/OT. Pain - Tylenol 1000mg q6h prn pain (1-10). Bowel - Miralax 17gm daily, senna/colace 2 tablets bid. Adult immunization - Administer pneumonia vaccine, covid19 vaccine, flu vaccine as appropriate. DVT prophylaxis - Not necessary, on Xarelto. Hyperlipidemia - Atorvastatin 40mg qhs. Glaucoma - Brimonidine 0.2% 2gtt od bid, Latanoprost 0.005% 1gtt ou qhs. Nutrition - Ensure Plus 120ml 4x/day, MVI daily. Hypothyroidism - Levothyroxine 25mcg daily. Skin irritation - Calmoseptine topical bid. Recurrent UTI - Methenamine 1gm bid. Depression - Mirtazapine 15mg qhs, stable chronic penitentiary use, GDR not recommended. Nausea - Zofran 8mg q8h prn. Hypokalemia - KCL 10meq daily. Vitamin D deficiency - D3 25mcg daily. Extensive right lower extremity DVT: Xarelto 15mg bid thru 09/06/2022, [facility] heparin drip 09/07/2022, Dr. Schaefer thrombectomy 09/08/2022. Medications at Discharge Home Medications atorvastatin 10 mg tablet 40 mg PO QHS cholesterol lowering 09/08/18 cholecalciferol (vitamin D3) 25 mcg (1,000 unit) tablet (Vitamin D3) 1,000 unit PO DAILY supplement 09/08/18 multivitamin with folic acid 400 mcg tablet (Thera) 1 tab PO DAILY supplement 09/08/18 ondansetron HCl 8 mg tablet 8 mg PO Q8H PRN PRN Nausea 09/08/18 sertraline 100 mg tablet 125 mg PO DAILY mental health 09/08/18 brimonidine 0.2 % eye drops 2 drp RIGHT EYE BID glaucoma 08/31/22 levothyroxine 25 mcg tablet 25 mcg PO DAILY thyroid 08/31/22 methenamine hippurate 1 gram tablet 1 g PO BID UTI 08/31/22 mirtazapine 15 mg tablet 15 mg PO QHS sleep 08/31/22 polyethylene glycol 3350 17 gram/dose oral powder (Miralax) 17 g PO DAILY constipation 08/31/22 potassium chloride 10 mEq tablet,extended release 10 meq PO DAILY supplement 08/31/22 sennosides 8.6 mg-docusate sodium 50 mg tablet (Stool Softener-Stimulant Laxative) 2 tab PO BID stool softener 09/03/22 acetaminophen 500 mg tablet 1,000 mg PO Q6H PRN PRN Pain Score 1-10 #0 tabs 09/07/22 latanoprost 0.005 % eye drops 1 drp EACH EYE HS #0 mL 09/07/22 menthol 0.44 %-zinc oxide 20.6 % topical ointment (Calmoseptine) 1 applic topical BID@1000,2200 #0 grams 09/07/22 Hospital Course Operations None Procedures None Summary of Care Provided Minutes Spent on Discharge: 30 Hospital Course: 76 year old female with below past medical history hospitalized for weakness, acute kidney injury, dehydration, anemia, found to have extensive right lower extremity DVT, admitted to TCU with debility, here for rehabilitation, strengthening, then return to [facility] 09/07/2022 for heparin drip, then thrombectomy 09/08/[address] Schaefer. Discharge to [facility] 09/07/2022 for heparin drip, then Thrombectomy 09/08/[address] Schaefer. Physical Exam Const alert General Appearance: cooperative HEENT normocephalic Eyes PERRL and EOMs intact bilaterally Neck supple, no JVD and no carotid bruits Resp normal respiratory effort, normal air movement and clear to auscultation bilaterally Cardio regular rate and regular rhythm GI normal to inspection, nondistended, normoactive bowel sounds, non-tender and non-distended Extremity normal capillary refill General Extremity: Negative for edema Skin no rashes or lesions noted General Skin Exam: no breakdown Psych affect normal Appearance: appropriate Weight / BMI Weight Weight: 55.792 kg ABG / Lab / Microbiology Data Result Diagrams: 09/04/22 05:00 09/04/22 05:00 Microbiology: Microbiology 09/05/22 05:30 Nasal Secretion SARS-CoV-2 Antigen (Rapid) - Final D/C Instructions Discharge Diet: No restrictions Discharge Activity: Return to Normal Activity, May Shower and Use Walker Weight Bearing Status: Weight bearing as tolerated Call your doctor if you observe: Fever of 101 or Higher, Inability to urinate, Inability to have a bowel movement, Shortness of breath, Dizziness, Fainting spells, Swelling in the ankles and Chest pain Additional Instructions: Discharge to [facility] 09/07/2022 for heparin drip, then Thrombectomy 09/08/[address] Schaefer. Meaningful Use Info Meaningful Use Diagnoses (Choose all that apply): None applicable Discharge Plan Admission Admit Date/Time: 09/03/22 21:00 Primary Reason for Your Visit: Debility. Attending Provider: Bernardino Min Chi Primary Care Provider: Rosmery Grady Instructions Additional Instructions / Restrictions: Discharge to [facility] 09/07/2022 for heparin drip, then Thrombectomy 09/08/[address] Schaefer. Discharge Orders/Prescriptions Prescriptions: New latanoprost 0.005 % Drops 1 drp EACH EYE HS Qty: 0 0RF acetaminophen 500 mg Tablet 1,000 mg PO Q6H PRN PRN (Reason: Pain Score 1-10) Qty: 0 0RF menthol-zinc oxide [Calmoseptine] 0.44-20.6 % Ointment 1 applic topical BID@1000,2200 Qty: 0 0RF Protocol: *Topical Application Instructions APPLICATION INSTRUCTIONS: bilat buttocks Continued atorvastatin 10 MG tablet 40 mg PO QHS ondansetron HCl 8 MG tablet 8 mg PO Q8H PRN PRN (Reason: Nausea) Label Comments: TAKE 1 TABLET BY MOUTH EVERY 8 HOURS NEEDED FOR NAUSEA/VOMITING. sertraline 100 MG tablet 125 mg PO DAILY Label Comments: TAKE 1 TABLET BY MOUTH EVERY DAY cholecalciferol (vitamin D3) [Vitamin D3] 1,000 UNIT tablet 1,000 unit PO DAILY multivitamin with folic acid [Thera] 1 TABLET tablet 1 tab PO DAILY potassium chloride 10 mEq tablet extended release 10 meq PO DAILY levothyroxine 25 mcg tablet 25 mcg PO DAILY methenamine hippurate 1 gram tablet 1 g PO BID Label Comments: TAKE 1 TABLET BY MOUTH TWICE A DAY WITH MEALS brimonidine 0.2 % drops 2 drp RIGHT EYE BID Label Comments: INSTILL 1 DROP INTO RIGHT EYE 3 TIMES A DAY mirtazapine 15 mg tablet 15 mg PO QHS Label Comments: 1 tablet by mouth once a day polyethylene glycol 3350 [Miralax] 17 gram/dose Powder 17 g PO DAILY sennosides-docusate sodium [Stool Softener-Stimulant Laxat] 8.6-50 mg tablet 2 tab PO BID Rx Instructions: Hold for diarrhea or bowel movement more than 3 times a day Discontinued travoprost 0.004 % drops 1 drp EACH EYE QHS Label Comments: USE 1 DROP IN BOTH EYES DAILY AT BEDTIME. Xarelto 15 mg tablet 15 mg PO BIDCM Ensure Plus High Protein 0.08 gram-1.5 kcal/mL liquid 120 ml PO 4X/DAY Referrals / Follow Up: Rosmery Grady MD [Primary Care Provider] - Disposition Disposition (needs filled in before D/C Order can be placed): [facility]
[2022-09-07 07:49] VITALS: BP 126/54; PULSE 77; RESP 16; TEMP 37.2; O2SAT 95
[2022-09-07] MEDS: Potassium Chloride Oral Tablet 10 MEQ PO (08:21)
[2022-09-07] MEDS: Multivitamins,Therapeutic Tablet 1 TABLET PO (08:22)
[2022-09-07 09:08] VITALS: PULSE 94; RESP 16; O2SAT 99
[2022-09-07 14:18] VITALS: BP 127/58; PULSE 102; RESP 16; TEMP 36.1; O2SAT 93
[2022-09-07] MEDS: Acetaminophen 500 MG Tablet 1000 MG PO (16:49)
[2022-09-07] MEDS: Senna/Docusate Sodium 1 Tablet 2 TABLET PO (16:50)
--- NOTE | 2022-09-15 08:14 | MDS.RN ---
Information for the mds was obtained from review of the clinical record, interview of resident, staff, and direct observation of resident's care.
== END 2022-09-07 18:40 | disposition short-term general hospital (02) | DRG 300 ==
PROVIDERS: Admitting Provider Family Medicine Geriatric Medicine; PCP Internal Medicine; Visit Provider Family Medicine Geriatric Medicine
DX: I82.401 Acute embolism and thrombosis of unspecified deep veins of right lower extremity (principal); N39.0 Urinary tract infection, site not specified; E03.9 Hypothyroidism, unspecified; G35 Multiple sclerosis; E55.9 Vitamin D deficiency, unspecified; E78.5 Hyperlipidemia, unspecified; F41.9 Anxiety disorder, unspecified; E87.6 Hypokalemia; H40.9 Unspecified glaucoma; F32.A Depression, unspecified; Z79.899 Other long term (current) drug therapy; Z79.01 Long term (current) use of anticoagulants; Z79.890 Hormone replacement therapy
CPT/HCPCS: 36415; 80048; 85025; 87426; 87811; 97110; 97116; 97162; 97166; 97530; 97535; 97802

== ENCOUNTER 2022-09-07 19:26 | Inpatient (IN) | payer MEDICARE, SELFPAY ==
[2022-09-07 19:05] VITALS: BP 117/65; PULSE 82; RESP 16; TEMP 36.9; O2SAT 96
[2022-09-07 19:52] VITALS: BMI 24.7
--- NOTE | 2022-09-07 20:00 | NURSING ---
emergency documentation effective since 09/07/20211999
[2022-09-07 20:02] LABS: Absolute Lymphocyte Count 1.51 X10^3/uL (0.83-4.51); Basophil# 0.06 X10^3/uL; Basophil% 0.5 % (0-1); Eosinophil# 0.45 X10^3/uL; Eosinophils% 3.7 % (0-5); Hematocrit 29.9 % (37-47); Hemoglobin 9.6 g/dL (12.0-15.0); Lymphocyte # 1.51 X10^3/ul (0.83-4.51); Lymphocyte % 12.3 % (19-41); Mean Corp Hgb Conc 32.1 g/dL (32-36); Mean Corpuscular Hgb 29.4 pg (27.0-32.0); Mean Corpuscular Volume 91.4 fL (81-99); Mean Platelet Vol. 8.7 fl (6.2-12.0); Monocyte# 0.99 X10^3/uL; Monocyte% 8.1 % (0-10); NRBC Flagged by Analyzer 0 % (0-5); Neutrophil # 8.96 X10^3/uL (2.7-7.7); Platelet Count 460 K/mm3 (150-450); RBC Distribution Width CV 13.8 % (11.6-14.6); RBC Distribution Width SD 46.5 fl (35.1-43.9); Red Blood Count 3.27 M/mm3 (4.2-5.4); White Blood Count 12.3 K/mm3 (4.4-11.0)
[2022-09-07 20:13] LABS: International Normalized Ratio 1.1; Prothrombin Time (Protime)PT. 13.5 SECONDS (11.7-14.9)
[2022-09-07 20:14] LABS: Partial Thromboplast Time 29.5 Seconds (24.1-36.2)
[2022-09-07] MEDS: Mirtazapine 15 MG Tablet PO (21:11)
[2022-09-07] MEDS: Atorvastatin Calcium 40 MG Tablet PO (21:11)
[2022-09-07] MEDS: KCL 20MEQ in D5.45NS 20 MEQ/1,000 ML IV.SOLN. 75 MEQ IV (21:21)
[2022-09-07] MEDS: HEPARIN/D5w 25,000 UNITS 25,000 UNITS/250 ML IV.SOLN. 7 UNITS CONT INF (21:37)
[2022-09-07] MEDS: Latanoprost 0.005% 1 Bottle 1 DRP EACH EYE (21:42)
[2022-09-07] MEDS: Methenamine Hippurate 1 GM Tablet PO (21:42)
[2022-09-07] MEDS: Acetaminophen 500 MG Tablet 1000 MG PO (23:16)
[2022-09-08] VITALS (16 sets, daily range): BP systolic 80–154; BP diastolic 51–130; PULSE 64–97; RESP 13–28; TEMP 36.4–38.1; O2SAT 90–99; BMI 24.7
[2022-09-08 03:33] LABS: Hemoglobin 8.8 g/dL (12.0-15.0); Mean Corp Hgb Conc 30.3 g/dL (32-36); Mean Corpuscular Hgb 27.7 pg (27.0-32.0); Mean Corpuscular Volume 91.2 fL (81-99); Mean Platelet Vol. 8.8 fl (6.2-12.0); Platelet Count 456 K/mm3 (150-450); RBC Distribution Width CV 13.7 % (11.6-14.6); RBC Distribution Width SD 45.8 fl (35.1-43.9); Red Blood Count 3.18 M/mm3 (4.2-5.4); White Blood Count 11.9 K/mm3 (4.4-11.0)
[2022-09-08 03:44] LABS: Partial Thromboplast Time 40.5 Seconds (24.1-36.2)
[2022-09-08 03:50] LABS: Anion Gap 9 (5-15); BUN 16 mg/dL (7-18); Calcium,Total 8.7 mg/dL (8.5-10.1); Chloride 106 mmol/L (98-107); Creatinine, Serum 0.73 mg/dL (0.55-1.02); EST Glomerular Filtration Rate 83 mL/min (>60); Est Glom Filt Rate - Afr Amer 101 mL/min (>60); Estimated Creatinine Clearance 35.45 ml/min; Glucose 109 mg/dL (74-106); Potassium 3.8 mmol/L (3.5-5.1); Sodium Level 139 mmol/L (136-145)
[2022-09-08] MEDS: Heparin Injection (Vial) 5,000 UNIT/ML VIAL IV (03:56)
[2022-09-08 04:28] LABS: Thyroid Stim Hormone (TSH) 3.45 uIU/mL (0.358-3.74)
--- NOTE | 2022-09-08 05:55 | EKG12_ITS ---
Test Reason : AM EKG Blood Pressure : / mmHG Vent. Rate : 080 BPM Atrial Rate : 080 BPM P-R Int : 150 ms QRS Dur : 068 ms QT Int : 384 ms P-R-T Axes : 048 -05 042 degrees QTc Int : 442 ms Sinus rhythm with marked sinus arrhythmia Otherwise normal ECG Confirmed by ARIAN SAN, DOMO ([id number]), publication editor FABIAN VIERA ([id number]) on 09/09/2022 10:49:48 AM Referred By: Confirmed By:DOMO DON MD
--- NOTE | 2022-09-08 07:07 | CASEMGMT ---
[facility] Readmission Review: Index: 08/31 thru 09/03/22, Dx: Extensive RLE DVT, RY Readmission: 09/07/22: For Thrombectomy 09/08/22 Pt admitted on index for above diagnoses. Pt also noted to be undergoing treatment for uterine cancer. Pt had been living alone and was independent prior to index admission but did have supportive family. Pt was discharged to TCU for continued therapy prior to returning home. Pt was readmitted in preparation for planned thrombectomy by Dr. Schaefer on 09/08/22. Will continue to monitor and assist with discharge transition when appropriate. Daniel Loco RN CM
--- NOTE | 2022-09-08 09:21 | HP.PCM_ITS ---
History and Physical Assessment & Plan Assessment/Plan (1) DVT (deep venous thrombosis): (2) Presence of IVC filter: PLAN: Plan -admit -heparin drip -venogram HPI Consult Data Date of Consult: 09/02/22 HPI Narrative HPI Narrative: LAKESHIA OSEGUERA, is a 76 F who initially presented to the hospital with general malaise and weakness associated with UTI diagnosed outpatient. She was also noted to have bilateral lower extremity swelling, right worse than left which propmted duplex. Duplex revelaed extensive right lower extremity DVT involving right common femoral, femoral, popliteal, tibio-peroneal, posterior tibial, peroneal, gastroc, and soleus veins for which we are consulted in consideration of possible thrombectomy. Patient does have an IVC filter which was placed in 2019. From chart review and patient report it would appear the filter was placed secondary to a PE in the context of uterine malignancy and a subdural hematoma the month previous. Patient has a history of endometrial cancer, appears diagnosed in 2014. She has had ÓSCAR BSO, chemo, and most recently in the last 6 months radiation for retroperitoneal/aortocaval ling recurrences. 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 She also has a history of MS which seems to have caused some balance issues in the past, but when not in a flair reportedly does not affect her mobility too much. She also has a history of recurrent UTIs associated with some confusion/delirium. She denies any issues with falls/head trauma/bleeding since 2019. Patient reports that she has noticed swelling in her bilateral lower legs, worse on the right, progressively worsening over at least the last few weeks, she is unsure of the exact timeline. She reports it seemed to get a lot worse late last week and through the weekend. Her legs feel very heavy and achy and she feels it is adversely affecting her mobility, she has a difficult time lifting them to walk properly and especially lifting them up into bed. Today, she denies chest pain, SOB, constitutional symptoms. She has been hemodynamically stable, H&H stable/improving. She is on a heparin drip. Her kidney function appears to be improving from admission. [facility] Medical History?(Updated 09/02/22 @ 10:25 by Britany TANG, CLYDE) Brain bleed Glaucoma Multiple sclerosis Presence of IVC filter Pulmonary embolism Pulmonary nodule Uterine cancer Home Medications atorvastatin 10 mg tablet 40 mg PO QHS cholesterol? lowering 09/08/18 [History Last Taken 08/30/22] cholecalciferol (vitamin D3) 25 mcg (1,000 unit) tablet (Vitamin D3) 1,000 unit PO DAILY supplement 09/08/18 [History Last Taken 09/07/18] multivitamin with folic acid 400 mcg tablet (Thera) 1 tab PO DAILY supplement 09/08/18 [History Last Taken 08/31/22] ondansetron HCl 8 mg tablet 8 mg PO Q8H PRN PRN Nausea 09/08/18 [History Last Taken 09/07/18] sertraline 100 mg tablet 125 mg PO DAILY mental health 09/08/18 [History Last Taken 08/31/22] brimonidine 0.2 % eye drops 2 drp RIGHT EYE BID glaucoma 08/31/22 [History Last Taken 08/30/22] ciprofloxacin HCl 500 mg tablet 500 mg PO BID infection 08/31/22 [History Last Taken 08/31/22] furosemide 20 mg tablet 20 mg PO DAILY water 08/31/22 [History Last Taken 08/31/22] levothyroxine 25 mcg tablet 25 mcg PO DAILY throid 08/31/22 [History Last Taken 08/31/22] meloxicam 15 mg tablet 15 mg PO DAILY 08/31/22 [History Last Taken 08/31/22] methenamine hippurate 1 gram tablet 1 g PO BID UTI 08/31/22 [History Last Taken 08/30/22] mirtazapine 15 mg tablet 15 mg PO QHS sleep 08/31/22 [History Last Taken 08/30/22] polyethylene glycol 3350 17 gram/dose oral powder (Miralax) 17 g PO DAILY constipation 08/31/22 [History Last Taken 08/30/22] potassium chloride 10 mEq tablet,extended release 10 meq PO DAILY supplement 08/31/22 [History Last Taken 08/31/22] travoprost 0.004 % eye drops 1 drp EACH EYE QHS glaucoma 08/31/22 [History Last Taken 08/30/22] Allergy/AdvReac TypeB Severity Reaction Status Date / Time codeine Allergy ? Hives Verified 08/31/22 13:37 methylprednisolone Allergy ? Hives Verified 08/31/22 13:37 Sulfa (Sulfonamide Allergy ? Hives Verified 08/31/22 13:37 Antibiotics) ? erythromycin base AdvReac ? Upset Verified 08/31/22 13:37 ? ? ? Stomach ? ? Family History? no significant family his ? Surgical History? H/O: hysterectomy History of section Social History?(Updated 08/31/22 @ 21:[address] Sarina Solorio, DO) household members:? none housing:? house Smoking Status:? Never smoker alcohol intake:? never substance use type:? does not use ROS Constitutional Constitutional: Reports fatigue and weakness; Denies change in weight, chills, fever(s), malaise, night sweats or other Eyes Eyes: Denies blurry vision, change in eye color, change in vision, discharge from eye(s), double vision, erythema, eye pain, loss of vision or other ENT HEENT: Denies abnormal hearing, dysphagia, ear pain, epistaxis, headache(s), hearing loss, nasal congestion, nasal discharge, post nasal drip, sinus pressure, sore throat or other Cardiovascular Cardiovascular: Denies chest pain, claudication, cold extremities, cyanosis, dyspnea, leg ulcers, lightheadedness, nausea, orthopnea, palpitations, paroxysmal nocturnal dyspnea, rapid heart rate, syncope, vomiting or other Respiratory/Chest Respiratory/Chest: Denies cough, dyspnea, excessive phlegm production, hemo ptysis, productive cough, shortness of breath at rest, shortness of breath with exertion, wheezing or other Gastrointestinal Gastrointestinal: Denies abdominal pain, coffee ground emesis, constipation, diarrhea, dyspepsia, hematemesis, hematochezia, loose stools, melena, nausea or vomiting Genitourinary Genitourinary: Denies burning urination, difficulty urinating, dysuria, hematuria, nocturia, urinary frequency, urinary hesitancy, urinary incontinence, urinary urgency or other Musculoskeletal Musculoskeletal: Denies back pain, extremity pain or joint pain Integumentary Integumentary: Denies bleeding lesions, erythema, lesions, non-healing lesions, rash, skin ulcer, sores or wounds Neurologic Neurologic: Denies abnormal gait, abnormal speech, confusion, disequilibrium, dizziness, focal weakness, headache(s), numbness, paresthesias, seizure-like activity, seizures, syncope, tingling, tremor(s) or other Psychiatric Psychiatric: Reports depression; Denies anxiety, homicidal ideation, suicidal ideation or other Endocrine Endocrinology: Denies change in body appearance, cold intolerance, excessive sweating, heat intolerance, polydipsia, polyuria or other Hematologic/Lymphatic Hematologic/Lymphatic: Denies anemia, easy bleeding, easy bruising, lymphadenopathy or other Allergic/Immunologic Allergic/Immunologic: Reports none Physical Exam Const alert, oriented x3, no apparent distress and healthy appearing General Appearance: cooperative, comfortable and well developed; Negative for in distress HEENT normocephalic, head/scalp atraumatic, hearing grossly normal bilaterally, external ears normal and external nose normal Eyes PERRL and EOMs intact bilaterally General Eye: normal appearance of both eyes Neck full ROM and no carotid bruits General: normal visual inspection and trachea midline; Negative for anterior neck swelling Resp normal respiratory effort, no use of accessory muscles and clear to auscultation bilaterally Effort and Inspection: able to speak in complete sentences and symmetric chest movement; Negative for respiratory distress, labored, stridor, retractions, uses accessory muscles or audible wheezes Cardio regular rate and regular rhythm Bruits: Negative for carotid bruit Peripheral Pulses: pulses 2+ throughout Extremity Extremity Narrative: Significant bilateral lower extremity swelling noted, worse on right than left.? DP and PT pulses palpable bilaterally, brisk capillary refill. Skin Skin Narrative: No erythema, warmth, rash/lesion/wounds, drainage/seeping noted. No discoloration or skin changes such as stasis dermatitis noted. Skin integrity intact bilaterally. Neuro oriented x3, CN's II-XII intact bilaterally, moves all extremities, no focal motor deficits and no sensory deficits noted Psych mental status grossly normal, thought process normal, cooperative, affect normal, speech normal and activity/motor behavior normal Appearance: grossly normal Attitude: calm Activity / Motor Behavior: appropriate eye contact Medical Records Data Medical Nutrition Assessment Dietitian: Malnutrition Criteria Met ? Start:? 09/01/22 17:06 Freq:? Status: Active? Protocol:?Document ? ? 09/01/22 17:06? RMA? (Rec: 09/01/22 17:06? RMA? [id number]) ?Nutrition ?? ? Malnutrition ? ? ? Evidence of Malnutrition Exists? Yes ? ? ? Malnutrition (moderate): ? Chronic ? ? ? Evidenced By ? Suboptimal Energy Intake ( ? Moderate),Weight Loss ( ? Moderate),Physical Changes ( ? Moderate) ?? ? Clinical Problem ? ? ? Chronic Disease or Condition Related Malnutrition ? Etiology? Moderate pro-alfredo malnutrition ? in the context of chronic ? disease/debility related to ? inadequate oral intake ? Signs/Symptoms? as evidenced by BMI 19.8, PO ? meeting less than 75% ? estimated nutrition needs, ? muscle/fat wasting in the face ? , clavicle, arms and legs ? Status? Active Problem ?? ? Recommendation ? ? ? Dietitian Recommendations/Changes? Continue liberalized regular ? diet. ? Continue 120 ml ensure plus ? high protein 4 times per day w ? / medpass; likes chocolate. ? Will d/c Golden BID; skin ? intact. ? Will add 120 ml ensure clear ? TID w/ meals. ? Reweigh as able; trend weights ? closely. Lab / Micro Data Result Diagrams: 09/02/22 04:42? 09/02/22 04:42? Labs: Laboratory Results - last 24 hr 09/01/22 19:06: APTT 54.9 H 09/02/22 04:42:?WBC 10.7,?RBC 3.51 L,?Hgb 10.1 L,?Hct 32.1 L, MCV 91.5, MCH 28.8,?MCHC 31.5 L,?RDW Std Deviation 46.8 H, RDW Coeff of Lauro 13.8, Plt Count 234, MPV 10.1,?Immature Gran % (Auto) 1.200 H,?Neut % (Auto) 70.6 H,?Lymph % (Auto) 14.6 L,?Hyde % (Auto) 11.0 H, Eos % (Auto) 2.2, Baso % (Auto) 0.4, Absolute Neuts (auto) 7.5, Absolute Lymphs (auto) 1.56, Nucleated RBC % 0 09/02/22 04:42:?Sodium 139, Potassium 3.6,?Chloride 108 H, Carbon Dioxide 23.0, Anion Gap 8,?BUN 23 H, Creatinine 0.93, Estim Creat Clear Calc 42.56, Est GFR (MDRD) Af Amer 75, Est GFR (MDRD) Non-Af 62,?BUN/Creatinine Ratio 24.6 H,? Glucose 108 H,?Calcium 8.2 L, Total Bilirubin 0.40, AST 16, ALT 16, Alkaline Phosphatase 94, Total Protein 6.5,?Albumin 2.9 L, Globulin 3.6,?Albumin/Globulin Ratio 0.8 L 09/02/22 04:42:?APTT 30.2 Radiology Impression Venous Doppler Study? 08/31/22 22:01 Interpretation Summary Acute deep vein thrombosis is noted in the right common femoral, femoral, popliteal, tibio-peroneal, posterior tibial, peroneal, gastrocnemius, soleus veins. Acute superficial vein thrombosis is noted in the right small saphenous vein. Vascular surgery consult may be considered. ? ? Ordering Physician: Sarina Solorio Performed By: Migue Crystal, RVT ? ?
[2022-09-08] MEDS: Sertraline 50 MG Tablet 125 MG PO (13:56)
[2022-09-08] MEDS: Methenamine Hippurate 1 GM Tablet PO ×2 (13:56→21:48)
[2022-09-08] MEDS: BRIMONIDINE 0.2% 5ML BOTTLE 2 DRP RIGHT EYE ×2 (13:56→21:45)
[2022-09-08] MEDS: Ensure Plus High Protein 120 ML LIQUID PO ×2 (13:58→21:45)
[2022-09-08] MEDS: Acetaminophen 500 MG Tablet 1000 MG PO ×2 (13:59→20:24)
--- NOTE | 2022-09-08 14:17 | CASEMGMT ---
Patient came to PCU from TCU. SW spoke with patient. Introduced self and role at [facility]. SW asked patient if her plan is to return to [facility] TCU to continue her rehab and she confirmed that is her plan. Plan: d/c back to [facility] TCU when medically ready. Ghada Durbin MSW ESPERANZA
--- NOTE | 2022-09-08 16:37 | PCM.OPRPT ---
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 Chronic occlusion of left popliteal vein Surgery/Procedure Performed:: Venogram bilateral lower extremities Venogram inferior vena cava Intravascular ultrasound of the inferior vena cava, right common iliac vein, right external iliac vein, right common femoral vein, right femoral vein Balloon angioplasty of the right femoral vein Percutaneous mechanical thrombectomy of the right iliac and femoral veins Surgeon: Ethan Schaefer Type of Anesthesia: Local and Sedation,Conscious Estimated Blood Loss (mL): 50 Description of Procedure: placed. She has not been anticoagulation since her filter placement however her transient contraindication to anticoagulation has since been resolved. Ultrasound revealed extensive right lower extremity thrombosis extending into the common femoral vein. She is felt to be appropriate for venous thrombectomy and she is taken now for venogram with possible thrombectomy. Description of procedure: Upon obtaining form consent and verification correct patient procedure site but patient was taken the [facility] where she was positioned prepped and draped in usual sterile fashion. Time was performed and conscious sedation administered with intermittent doses of Versed and fentanyl. Under ultrasound guidance the right popliteal vein was accessed in retrograde fashion using micropuncture needle and wire which was then exchanged for a micropuncture sheath. Through this hand-injection venogram was performed which revealed satisfactory positioning with no extravasation or dissection, with extensive femoral vein thrombus. Micropuncture sheath were then changed out for an 8 Palauan sheath through which sequential imaging the remainder the right lower extremity was performed again confirming extensive thrombus through the femoral vein, femoral vein and external and common iliacs. Using Bentson wire and a Preciado catheter we navigated into the iliac system from which a hand-injection venacavogram was performed which confirmed thrombus extending up to the filter with patent vena cava above the filter. The Bentson wire was then used to navigate into the vena cava superior to the filter in the Preciado catheter exchanged out for intravascular ultrasound probe which was advanced into the vena cava and a digital recorded pullback of the vena cava and the right lower extremity vessels was performed. This confirmed subacute appearing thrombus extending from the inferior vena cava filter into the right common and external iliac veins as well as the right common femoral and femoral veins. In addition the venogram also confirmed that there was thrombus within the at least common iliac on the left. Ultrasound used to assess the left popliteal vein however this was not able to be visualized and multiple efforts were undertaken to access which were unsuccessful. He was suspected that the popliteal vein had previously had thrombus and the lumen was now obliterated with only collaterals existing. Is felt that navigating from the right popliteal access to the contralateral system would not help with imaging as well as permit thrombectomy completion. Next using an IRASEMA catheter and a Glidewire we navigated from the right popliteal access system into the contralateral iliac vein system advancing the wire and catheter ultimately into the femoral vein. To do subtraction venogram of the left lower extremities performed which revealed some subacute appearing thrombus in the femoral common femoral as well as the external and common iliac veins on the left. There appeared to be abrupt total occlusion of the distal femoral/popliteal vein with significant collaterals which supported chronic total occlusion of the popliteal. A Amplatz wire was then advanced via the catheter and positioned in the distal femoral vein and the catheter withdrawn. This point the patient was heparinized and allowed to circulate for 3 minutes. They Palauan sheath was exchanged out for a Inari clotTriever sheath. A 7 mm x 200 length angioplasty was then inflated along the length of the femoral vein to ensure satisfactory vessel diameter and ease passage of the thrombectomy catheter. This was then withdrawn and a Inari percutaneous mechanical thrombectomy device was then advanced over the Amplatz wire into position with the proximal edge at the iliac confluence and multiple passes of thrombectomy performed with subacute thrombus returned. After no further significant thrombus was returned repeat venogram of the right lower extremity was performed which revealed resolution of femoral vein common femoral vein external iliac and common iliac vein thrombus. Given the prior IVC filter we are unable to safely perform thrombectomy on the vena cava, however there is significant flow channel present and satisfactory venous outflow and egress of contrast through the vena cava. Though the patient had a left lower extremity DVT her symptoms were not significant, and also there was no means to access the left lower extremity given the chronic popliteal occlusion. [place] that no further intervention was required at this time, and that the patient continue to have significant swelling that she be brought back at a later time for a second attempt from a femoral access with a suction thrombectomy device they could safely clear thrombus from the vena cava and the left iliac system. A silk stitch was then placed at the skin and the sheath withdrawn followed by 5 minutes of manual pressure. Patient was then returned to the PCU for bedrest and observation.
[2022-09-08 18:22] LABS: Partial Thromboplast Time 81.1 Seconds (24.1-36.2)
[2022-09-08] MEDS: Latanoprost 0.005% 1 Bottle 1 DRP EACH EYE (21:46)
[2022-09-08] MEDS: Mirtazapine 15 MG Tablet PO (21:48)
[2022-09-08] MEDS: Atorvastatin Calcium 40 MG Tablet PO (21:48)
[2022-09-09] VITALS (7 sets, daily range): BP systolic 101–151; BP diastolic 52–76; PULSE 80–99; RESP 16–18; TEMP 36.5–37.6; O2SAT 90–97
[2022-09-09 00:53] LABS: Partial Thromboplast Time 53.1 Seconds (24.1-36.2)
[2022-09-09] MEDS: HEPARIN/D5w 25,000 UNITS 25,000 UNITS/250 ML IV.SOLN. 9 UNITS CONT INF (05:13)
[2022-09-09] MEDS: Levothyroxine 25 MCG TABLET PO (05:14)
[2022-09-09] MEDS: Sertraline 50 MG Tablet 125 MG PO (08:16)
[2022-09-09] MEDS: Ensure Plus High Protein 120 ML LIQUID PO ×4 (08:16→21:41)
[2022-09-09] MEDS: BRIMONIDINE 0.2% 5ML BOTTLE 2 DRP RIGHT EYE ×2 (08:16→21:43)
[2022-09-09] MEDS: Methenamine Hippurate 1 GM Tablet PO ×2 (08:16→21:42)
[2022-09-09] MEDS: Multivitamins,Therapeutic Tablet 1 TABLET PO (08:16)
[2022-09-09 09:05] LABS: Partial Thromboplast Time 46.2 Seconds (24.1-36.2)
[2022-09-09] MEDS: 0.9% Saline Lock 10 ML Syringe IV (11:20)
--- NOTE | 2022-09-09 15:42 | PCM.PN.SRG ---
Subjective Subjective Patient is doing well overall. Denies constitutional symptoms, SOB, CP. No complaints. No acute events overnight. No increased pain in her legs. She reports her right leg feels less tight than prior to procedure, but still with significant swelling and heaviness. She did try to walk the hallway today and did alright but fatigued quickly. She continue to have trouble lifting her legs, especially to return to bed. Objective Data Objective Data A&Ox3, NAD RRR Non-labored respirations, no accessory muscle use, no audible stridor/wheeze, able to speak in complete sentences Right popliteal access site without bleeding, hematoma, swelling, erythema. Palpable DP/PT pulses bilaterally. Vital Signs: Vital Signs Temp Pulse Resp BP Pulse Ox O2 Del Method O2 Flow Rate 98.3 F 80 18 134/61 H 97 Room Air 3 09/09/22 11:00 09/09/22 11:00 09/09/22 11:00 09/09/22 11:00 09/09/22 11:00 09/09/22 14:00 09/08/22 06:00 Oxygen Flow Rate (L/min) 3 Oxygen Delivery Method Room Air Weight: 126 lb 15.78 oz Body Mass Index (BMI) 24.7 Intake & Output: Intake and Output for Last 24 Hours 09/07/22 09/08/22 09/09/22 23:59 23:59 23:59 Intake Total 1259.47 / 1259.47 121.10 / 121.10 Output Total 800 / 800 Balance 459.47 / 459.47 121.10 / 121.10 Medical Nutrition Assessment Dietitian: Malnutrition Criteria Met Start: 09/08/22 10:46 Freq: Status: Active Protocol: Document 09/08/22 10:46 RMA (Rec: 09/08/22 10:46 RMA [id number]) Nutrition Malnutrition Evidence of Malnutrition Exists Yes Malnutrition (moderate): Chronic Evidenced By Suboptimal Energy Intake ( Moderate),Physical Changes ( Moderate) Intake Problem Increased Nutrient Needs (specify) Etiology for protein related to inadequate oral intake and suspected muscle wasting Signs/Symptoms as evidenced by visible wasting in clavicle, face, arms Status Active Problem Recommendation Dietitian Recommendations/Changes Resume regular diet as tolerated. Add 120 ml chocolate ensure plus high protein 4 times per day w/ medpass as diet advanced from NPO. Additional ONS as needed to optimize oral intake and stabilize weight. Lab / Micro Data Result Diagrams: 09/08/22 03:23 09/08/22 03:23 Labs: Laboratory Results - last 24 hr 09/08/22 17:55: APTT 81.1 H 09/09/22 00:35: APTT 53.1 H 09/09/22 07:05: APTT 46.2 H Assessment & Plan Assessment/Plan (1) DVT (deep venous thrombosis): (2) Presence of IVC filter: (3) Generalized weakness: PLAN: Plan Patient is s/p venogram with right iliac and femoral vein thrombectomy and balloon angioplasty of right femoral vein. She is recovering well. No access site hematoma or bleeding, no leg or back pain. Continues to tolerate heparin, will repeat CBC. Yesterday, Dr. Schaefer discussed with patient and son option of additional procedure to remove clot from IVC filter vs no further procedure and allow clot to continue to dissolve over time with anticoagulation.Decision at the time was to see how she recovered, assess symptoms and mobility, and discuss further with family. Patient did discuss with her family today and they feel if further benefit could be gained and clot burden reduced with additional procedure then they would like to proceed. She agrees and will proceed with additional venogram. Will continue with heparin drip, NPO after midnight in anticipation of venogram tomorrow. After procedure tomorrow she will return to PCU for transition back to Xarel. Plan will then be to return to TCU for continued therapy and ultimately discharge to home at their discretion. Charges/Coding Visit Charges Inpatient E&M: 70798 [facility] L1
[2022-09-09 16:25] LABS: Partial Thromboplast Time 64.8 Seconds (24.1-36.2)
[2022-09-09] MEDS: Mirtazapine 15 MG Tablet PO (21:42)
[2022-09-09] MEDS: Latanoprost 0.005% 1 Bottle 1 DRP EACH EYE (21:42)
[2022-09-09] MEDS: Atorvastatin Calcium 40 MG Tablet PO (21:43)
[2022-09-09 22:11] LABS: Absolute Lymphocyte Count 1.88 X10^3/uL (0.83-4.51); Absolute Neutrophil Count 10.1 X10^3/uL (2.0-7.7); Basophil# 0.04 X10^3/uL; Basophil% 0.3 % (0-1); Eosinophils% 2.9 % (0-5); Hemoglobin 8.4 g/dL (12.0-15.0); Lymphocyte # 1.88 X10^3/ul (0.83-4.51); Lymphocyte % 13.6 % (19-41); Mean Corp Hgb Conc 31.1 g/dL (32-36); Mean Corpuscular Hgb 28.3 pg (27.0-32.0); Mean Corpuscular Volume 90.9 fL (81-99); Mean Platelet Vol. 9.2 fl (6.2-12.0); Monocyte# 1.08 X10^3/uL; Monocyte% 7.8 % (0-10); NRBC Flagged by Analyzer 0 % (0-5); Neutrophil # 10.11 X10^3/uL (2.7-7.7); Neutrophil % 72.9 % (47-70); Platelet Count 423 K/mm3 (150-450); RBC Distribution Width CV 13.9 % (11.6-14.6); RBC Distribution Width SD 46.1 fl (35.1-43.9); Red Blood Count 2.97 M/mm3 (4.2-5.4); White Blood Count 13.9 K/mm3 (4.4-11.0)
[2022-09-09 22:22] LABS: Partial Thromboplast Time 71.3 Seconds (24.1-36.2)
[2022-09-09 22:26] LABS: Anion Gap 10 (5-15); BUN 17 mg/dL (7-18); Calcium,Total 8.6 mg/dL (8.5-10.1); Chloride 102 mmol/L (98-107); Creatinine, Serum 0.74 mg/dL (0.55-1.02); EST Glomerular Filtration Rate 82 mL/min (>60); Est Glom Filt Rate - Afr Amer 99 mL/min (>60); Estimated Creatinine Clearance 35.45 ml/min; Glucose 122 mg/dL (74-106); Potassium 3.3 mmol/L (3.5-5.1); Sodium Level 138 mmol/L (136-145)
--- NOTE | 2022-09-09 22:41 | NURSING ---
heparin gtt decreased by 100 units, now running at 900 units
[2022-09-10] VITALS (12 sets, daily range): BP systolic 135–151; BP diastolic 66–86; PULSE 88–109; RESP 15–18; TEMP 36.3–37.6; O2SAT 92–96
[2022-09-10] MEDS: Potassium Chloride Oral Tablet 20 MEQ 40 MEQ PO (01:37)
[2022-09-10 05:04] LABS: Partial Thromboplast Time 67.7 Seconds (24.1-36.2)
[2022-09-10] MEDS: Levothyroxine 25 MCG TABLET PO (05:12)
[2022-09-10] MEDS: HEPARIN/D5w 25,000 UNITS 25,000 UNITS/250 ML IV.SOLN. 8 UNITS CONT INF (05:23)
--- NOTE | 2022-09-10 05:25 | NURSING ---
Heparin drip decreased to 8 ml/hr from 9 ml/hr based on PTT result 67.7. Keypad to pump locked
[2022-09-10] MEDS: BRIMONIDINE 0.2% 5ML BOTTLE 2 DRP RIGHT EYE ×2 (09:42→21:55)
[2022-09-10 11:26] LABS: Partial Thromboplast Time 53.5 Seconds (24.1-36.2)
--- NOTE | 2022-09-10 12:23 | CASEMGMT ---
Tertiary facilities in-network with patients insurance: [facility], [facility], , [facility], [facility], [facility]
--- NOTE | 2022-09-10 13:16 | NURSING ---
Called report to Saul WILLARD in laboratory veterinarian
--- NOTE | 2022-09-10 16:42 | PCM.OPRPT ---
Report of Operation Date of Procedure: 09/10/22 Pre-Operative Diagnosis: IVC occlusion Post-Operative Diagnosis: same Surgery/Procedure Performed:: IVC venogram, percutaneous thrombectomy IVC, bilateral common and external iliac arteries Angioplasty IVC IVUS Description of Surgical Findings:: Bilateral common and external iliac vein nonocclusive thrombus, inferior vena cava thrombus with occluded filter. Fixed stenosis at the filter base after thrombus removed, thickened IVC and right iliac vein wall. Fixed stenosis improved after balloon angioplasty Surgeon: Ethan Schaefer Type of Anesthesia: Local and Sedation,Conscious Estimated Blood Loss (mL): 50 Description of Procedure: HPI: Patient is a 76-year-old female who initially presented with extensive right lower extremity DVT. She initially underwent percutaneous mechanical thrombectomy of the right lower extremity and right common and external leg veins via popliteal approach. She had significant thrombus in her IVC that was nonocclusive at the time and given the duration of initial procedure the patient wished to cease efforts and see of the initial procedure improved her symptomatology. She continues to have leg edema and discomfort so she is taken back for plans to perform thrombectomy using an alternative device of the IVC. Description of procedure: Upon obtaining informed consent and verification rate patient procedure patient was taken to the [facility] where she was positioned prepped and draped in usual fashion. Time was performed conscious sedation administered with Versed and fentanyl. Skin over the right common femoral vein was anesthetized 1% lidocaine and the vessel accessed in retrograde fashion using micropuncture needle and wire ultrasound guidance. This was then exchanged out for micropuncture sheath through which injection ilio caval venogram was performed which revealed recurrence of nonocclusive thrombus in the right iliacs and new occlusion of the IVC filter. Through this a Bentson wire was advanced micropuncture sheath exchanged over a short 5 Bulgarian sheath and using a glide catheter and Bentson wire we navigated the iliac IVC and ultimately into the vena cava superior to the filter. Patient was then heparinized allowed to circulate for 3 minutes and the 5 Bulgarian sheath exchanged out for an Inari flow Treiver sheath which was advanced in the position of the distal external iliac vein. Artery flowTreiver was brought in the field and prepped for manufactures instructions. This was then advanced and positioned in the external iliac vein and clot extraction performed along the entirety of the right common and external iliac veins as well as the inferior vena cava up to the filter. After multiple passes repeat venogram was performed which revealed satisfactory resolution of the iliac vein thrombus as well as the majority of the IVC thrombus. There was significant wall thickening at the anchors of the IVC filter which appeared to be chronic either intimal hyperplasia or radiation scarring. There was continued thrombus in the contralateral iliac vein which was not treated at the prior session so we then navigated in the contralateral iliac vein using an angled glide wire and advanced the thrombectomy device. This was then engaged across the entire the length of the external common iliac veins and then withdrawn. Repeat venogram confirmed satisfactory resolution of the left iliac vein thrombus. Wire was then we navigated into the vena cava traversing the filter and an 8 Bulgarian intravascular sound probe advanced and a digital recorded pullback of the IVC and the right common and external leg veins performed. This revealed thick stenosis of what appeared to be wall thickening and mural intimal hyperplasia at the base of the filter with very minimal flow lumen. A 10 x 40 angioplasty balloon was then advanced into position just below the vena cava filter and inflated for 2 minutes and then deflated withdrawn. Repeat venogram revealed satisfactory contrast transit across the iliac and vena cava with significant improvement in flow lumen and contrast transit at the filter. Further no further intervention was required so the sheath withdrawn followed by a silk stitch in the skin and 5 minutes of manual pressure. At the closing case patient was taken to PCU for recovery.
[2022-09-10] MEDS: Multivitamins,Therapeutic Tablet 1 TABLET PO (17:04)
[2022-09-10] MEDS: Sertraline 50 MG Tablet 125 MG PO (17:05)
[2022-09-10] MEDS: Ensure Plus High Protein 120 ML LIQUID PO ×2 (17:05→21:55)
--- NOTE | 2022-09-10 17:15 | NURSING ---
Heparin drip paused in produce laborer @ 1320 and restarted in produce laborer @ 1600 per RN report. Adjusted on oct.
[2022-09-10] MEDS: Latanoprost 0.005% 1 Bottle 1 DRP EACH EYE (21:55)
[2022-09-10] MEDS: Atorvastatin Calcium 40 MG Tablet PO (21:56)
[2022-09-10] MEDS: Mirtazapine 15 MG Tablet PO (21:56)
[2022-09-10] MEDS: Methenamine Hippurate 1 GM Tablet PO (21:56)
[2022-09-10 22:45] LABS: Partial Thromboplast Time 77.2 Seconds (24.1-36.2)
[2022-09-11 03:50] VITALS: BP 139/75; PULSE 67; RESP 18; TEMP 37.3; O2SAT 94
[2022-09-11 04:27] LABS: Partial Thromboplast Time 62.7 Seconds (24.1-36.2)
[2022-09-11] MEDS: Levothyroxine 25 MCG TABLET PO (06:11)
[2022-09-11 08:28] VITALS: O2SAT 94
[2022-09-11 08:40] VITALS: BP 135/70; PULSE 91; RESP 18; TEMP 37; O2SAT 92
[2022-09-11] MEDS: Methenamine Hippurate 1 GM Tablet PO (08:46)
[2022-09-11] MEDS: BRIMONIDINE 0.2% 5ML BOTTLE 2 DRP RIGHT EYE (08:46)
[2022-09-11] MEDS: Ensure Plus High Protein 120 ML LIQUID PO ×2 (08:47→12:45)
[2022-09-11] MEDS: Multivitamins,Therapeutic Tablet 1 TABLET PO (08:50)
[2022-09-11] MEDS: Sertraline 50 MG Tablet 125 MG PO (08:50)
--- NOTE | 2022-09-11 09:07 | CASEMGMT ---
YADY notified Emelyn in TCU that patient will be returning today. YADY also spoke with Dr Schaefer and let him know what is needed for d/c to TCU. Plan: d/c back to [facility] TCU under skilled level of care. Ghada MATA
[2022-09-11] MEDS: Polyethylene Glycol 3350 17 GM PACKET PO (10:01)
[2022-09-11] MEDS: Rivaroxaban 15 MG Tablet PO ×2 (10:01→16:40)
[2022-09-11 15:03] VITALS: BP 140/69; PULSE 91; RESP 18; TEMP 37; O2SAT 93
--- NOTE | 2022-09-11 18:18 | DS.PCM_ITS ---
Providers Date of Admission: 09/07/22 Primary Care Physician: Rosmery Grady MD Reason For Visit: DVT Diagnosis Discharge Diagnosis (1) DVT (deep venous thrombosis): Status: Acute Code(s): I82.409 - Acute embolism and thrombosis of unspecified deep veins of unspecified lower extremity Plan: -s/p percutaneous mechanical thrombectomy of bilateral iliac veins, IVC, RLE with satisfactory result -situation complicated by prior filter with adjacent intimal hyperplasia and right iliac thickening from prior radiation -cont xarelto 15 BID for 21 days (09/11/22 is day one) followed by 20 daily -dc to TCU -will see her there Wednesday to remove sutures -f/u in office after discharge from TCU (2) Presence of IVC filter: Status: Acute Code(s): Z95.828 - Presence of other vascular implants and grafts (3) Generalized weakness: Status: Acute Code(s): R53.1 - Weakness Medications at Discharge Home Medications atorvastatin 10 mg tablet 40 mg PO QHS cholesterol lowering 09/08/18 cholecalciferol (vitamin D3) 25 mcg (1,000 unit) tablet (Vitamin D3) 1,000 unit PO DAILY supplement 09/08/18 multivitamin with folic acid 400 mcg tablet (Thera) 1 tab PO DAILY supplement 09/08/18 ondansetron HCl 8 mg tablet 8 mg PO Q8H PRN PRN Nausea 09/08/18 sertraline 100 mg tablet 125 mg PO DAILY mental health 09/08/18 brimonidine 0.2 % eye drops 2 drp RIGHT EYE BID glaucoma 08/31/22 levothyroxine 25 mcg tablet 25 mcg PO DAILY thyroid 08/31/22 methenamine hippurate 1 gram tablet 1 g PO BID UTI 08/31/22 mirtazapine 15 mg tablet 15 mg PO QHS sleep 08/31/22 polyethylene glycol 3350 17 gram/dose oral powder (Miralax) 17 g PO DAILY constipation 08/31/22 potassium chloride 10 mEq tablet,extended release 10 meq PO DAILY supplement 08/31/22 sennosides 8.6 mg-docusate sodium 50 mg tablet (Stool Softener-Stimulant Laxative) 2 tab PO BID stool softener 09/03/22 acetaminophen 500 mg tablet 1,000 mg PO Q6H PRN PRN Pain Score 1-10 #0 tabs 09/07/22 latanoprost 0.005 % eye drops 1 drp EACH EYE HS #0 mL 09/07/22 menthol 0.44 %-zinc oxide 20.6 % topical ointment (Calmoseptine) 1 applic to pical BID@1000,2200 #0 grams 09/07/22 Hospital Course Operations - (1) percutaneous thrombectomy RLE via popliteal approach 2) percutaneous thrombectomy bilateral iliac/IVC via femoral approach) Summary of Care Provided Hospital Course: Patient presented with planned direct admission from TCU for known right lower extremity extensive DVT with suspected at least iliac and possibly caval extension. She was bridged with heparin from her Xarelto and taken to the [facility] for venogram with possible thrombectomy on September 08. She was found to have extensive deep venous thrombosis in the bilateral iliac common femoral and proximal femoral veins as well as right popliteal thrombus. She was noted to have a chronically totally occluded left popliteal vein which was well collatera lized. She underwent percutaneous mechanical thrombectomy with Inari of the right iliac, common femoral, femoral vein with satisfactory result. She was noted to have some thrombus within the IVC however there was contrast transit across the area and through the filter and the patient was having difficulty tolerating prone positioning so further efforts to clear the vena cava were not taken. Post procedure was placed on heparin and observed with some improvement in her edema however after further discussions you felt that she would rather address the thrombus in the IVC as well as in the left iliac vein which could not be treated via the right popliteal approach so she was taken again on an for dedicated iliac IVC thrombectomy. Using suction thrombectomy were able to clear some residual thrombus within the right iliac vein system as well as clear all thrombus from the IVC and the left iliac vein. She was noted to have some fixed stenosis and likely intimal hyperplasia and/or radiation scarring of the IVC and the right iliac vein, with significant stenosis of the IVC just below the filter. This was balloon angioplastied with a 10 mm high- pressure balloon with satisfactory result with much improved contrast transit across the vena cava filter. She again was placed on heparin with no evidence of bleeding postprocedure and a post procedure day #1 after the second seizure she was placed on her Xarelto and heparin discontinued. She was then prepared for discharge to TCU with plans to continue her recovery and physical therapy there. Physical Exam Const alert, oriented x3, no apparent distress and healthy appearing General Appearance: cooperative; Negative for combative or lethargic Orientation / Consciousness: awake Exam Limitations: no limitations HEENT Head and Scalp: normocephalic and atraumatic Eyes EOMs intact bilaterally General Eye: normal appearance of both eyes Neck full ROM, no lymphadenopathy and thyroid normal General: trachea midline; Negative for lymphadenopathy Thyroid: thyroid normal Lymph Lymphatic: Negative for no lymphadenopathy noted Resp normal respiratory effort and no use of accessory muscles Effort and Inspection: Negative for labored, stridor or audible wheezes Cardio regular rate and regular rhythm Peripheral Pulses: brachial pulses present and radial pulses present GI non-tender and non-distended; Negative for hepatosplenomegaly Back/Spine Cervical Spine: cervical ROM normal Extremity full ROM, normal capillary refill and no clubbing, cyanosis or edema Skin no rashes or lesions noted and no wounds Neuro oriented x3, CN's II-XII intact bilaterally, no focal motor deficits and no sensory deficits noted Psych thought process normal, cooperative, affect normal, speech normal and activity/motor behavior normal Medical Records Data Medical Nutrition Assessment Dietitian: Malnutrition Criteria Met Start: 09/08/22 10:46 Freq: Status: Active Protocol: Document 09/11/22 10:47 RMA (Rec: 09/11/22 10:49 RMA [id number]) Nutrition Malnutrition Evidence of Malnutrition Exists Yes Malnutrition (moderate): Chronic Evidenced By Suboptimal Energy Intake ( Moderate),Physical Changes ( Moderate) Intake Problem Increased Nutrient Needs (specify) Etiology for protein related to inadequate oral intake and suspected muscle wasting Signs/Symptoms as evidenced by visible wasting in clavicle, face, arms Status Active Problem Clinical Problem Chronic Disease or Condition Related Malnutrition Etiology Moderate pro-alfredo malnutrition in the context of chronic disease related to inadequate oral intake Signs/Symptoms as evidenced by visible wasting in clavicle, face, arms and PO ~50% meals, oral intake meeting less than 75% estimated nutrition needs Status Active Problem Recommendation Dietitian Recommendations/Changes Continue regular diet as tolerated. Continue 120 ml chocolate ensure plus high protein 4 times per day w/ medpass. Additional ONS as needed to optimize oral intake and stabilize weight. Weight / BMI Weight Weight: 120 lb 9.486 oz Body Mass Index (BMI) 24.7 ABG / Lab / Microbiology Data Result Diagrams: 09/09/22 21:30 09/09/22 21:30 Laboratory: Laboratory Results - last 24 hr 09/10/22 22:00: APTT 77.2 H 09/11/22 04:05: APTT 62.7 H Microbiology: Microbiology 09/11/22 10:10 Nasal Secretion SARS-CoV-2 Antigen (Rapid) - Final D/C Instructions Discharge Diet: No restrictions Discharge Activity: Return to Normal Activity May shower in (days): 1 Weight Bearing Status: Weight bearing as tolerated Lifting Restrictions: Do not lift greater than 20 lbs for 7 days Call your doctor if your incision/area has: Sudden Increased Bleeding, Increased Pain/ Swelling and Foul Smelling Discharge Call your doctor if you observe: Fever of 101 or Higher Remove Dressing in: 1 day Additional Dressing/Incision Instructions: Sutures will be removed 09/14 Meaningful Use Info Meaningful Use Diagnoses (Choose all that apply): VTE VTE Anticoag overlap given w/in hospital stay or rx'd at id?: Yes Pt receive overlap for 5 days?: No Reason overlap not ordered, prescribed, or given for 5 days: Treatment Not Sharon cated (Direct oral anticoagulant used ) Discharge Plan Admission Admit Date/Time: 09/07/22 19:26 Attending Provider: Ethan Schaefer Primary Care Provider: Rosmery Grady Discharge Orders/Prescriptions Prescriptions: Continued atorvastatin 10 MG tablet 40 mg PO QHS ondansetron HCl 8 MG tablet 8 mg PO Q8H PRN PRN (Reason: Nausea) Label Comments: TAKE 1 TABLET BY MOUTH EVERY 8 HOURS NEEDED FOR NAUSEA/VOMITING. sertraline 100 MG tablet 125 mg PO DAILY Label Comments: TAKE 1 TABLET BY MOUTH EVERY DAY cholecalciferol (vitamin D3) [Vitamin D3] 1,000 UNIT tablet 1,000 unit PO DAILY multivitamin with folic acid [Thera] 1 TABLET tablet 1 tab PO DAILY potassium chloride 10 mEq tablet extended release 10 meq PO DAILY levothyroxine 25 mcg tablet 25 mcg PO DAILY methenamine hippurate 1 gram tablet 1 g PO BID Label Comments: TAKE 1 TABLET BY MOUTH TWICE A DAY WITH MEALS brimonidine 0.2 % drops 2 drp RIGHT EYE BID Label Comments: INSTILL 1 DROP INTO RIGHT EYE 3 TIMES A DAY mirtazapine 15 mg tablet 15 mg PO QHS Label Comments: 1 tablet by mouth once a day polyethylene glycol 3350 [Miralax] 17 gram/dose Powder 17 g PO DAILY sennosides-docusate sodium [Stool Softener-Stimulant Laxat] 8.6-50 mg tablet 2 tab PO BID Rx Instructions: Hold for diarrhea or bowel movement more than 3 times a day latanoprost 0.005 % Drops 1 drp EACH EYE HS Qty: 0 0RF acetaminophen 500 mg Tablet 1,000 mg PO Q6H PRN PRN (Reason: Pain Score 1-10) Qty: 0 0RF menthol-zinc oxide [Calmoseptine] 0.44-20.6 % Ointment 1 applic topical BID@1000,2200 Qty: 0 0RF Protocol: *Topical Application Instructions APPLICATION INSTRUCTIONS: bilat buttocks Referrals / Follow Up: Rosmery Grady MD [Primary Care Provider] - Disposition Disposition (needs filled in before D/C Order can be placed): DC/Tx to Another Type of HCF
--- NOTE | 2022-09-11 18:39 | PCM.TXEXTCAR ---
Diet Diet Order/Speech Therapy: 09/10/22 16:39 Diet: Regular - General Is pt able to select menu?: No Wound(s) Right posterior popliteal: Wound Type: Surgical Incision R femoral: Wound Type: Puncture Problem/Diagnosis (1) DVT (deep venous thrombosis): Status: Acute Code(s): I82.409 - Acute embolism and thrombosis of unspecified deep veins of unspecified lower extremity Plan: -s/p percutaneous mechanical thrombectomy of bilateral iliac veins, IVC, RLE with satisfactory result -situation complicated by prior filter with adjacent intimal hyperplasia and right iliac thickening from prior radiation -cont xarelto 15 BID for 21 days (09/11/22 is day one) followed by 20 daily -dc to TCU -will see her there Wednesday to remove sutures -f/u in office after discharge from TCU (2) Presence of IVC filter: Status: Acute Code(s): Z95.828 - Presence of other vascular implants and grafts (3) Generalized weakness: Status: Acute Code(s): R53.1 - Weakness Allergies/Procedures Done in Hospital Allergies codeine Allergy (Verified 08/31/22 13:37) Hives methylprednisolone Allergy (Verified 08/31/22 13:37) Hives Sulfa (Sulfonamide Antibiotics) Allergy (Verified 08/31/22 13:37) Hives erythromycin base Adverse Reaction (Verified 08/31/22 13:37) Upset Stomach Type of Care/Length of Stay Estimated LOS: Convalescent Care Less Than 30 days Type of Care Needed: Skilled Rehab Potential: Good Prognosis: Good Dietary and Speech Recommendations Dietitian Recommendations/Changes: Continue regular diet as tolerated. Continue 120 ml chocolate ensure plus high protein 4 times per day w/ medpass. Additional ONS as needed to optimize oral intake and stabilize weight. Discharge Plan Admission Admit Date/Time: 09/07/22 19:26 Attending Provider: Ethan Schaefer Primary Care Provider: Rosmery Grady Discharge Orders/Prescriptions Prescriptions: Continued atorvastatin 10 MG tablet 40 mg PO QHS ondansetron HCl 8 MG tablet 8 mg PO Q8H PRN PRN (Reason: Nausea) Label Comments: TAKE 1 TABLET BY MOUTH EVERY 8 HOURS NEEDED FOR NAUSEA/VOMITING. sertraline 100 MG tablet 125 mg PO DAILY Label Comments: TAKE 1 TABLET BY MOUTH EVERY DAY cholecalciferol (vitamin D3) [Vitamin D3] 1,000 UNIT tablet 1,000 unit PO DAILY multivitamin with folic acid [Thera] 1 TABLET tablet 1 tab PO DAILY potassium chloride 10 mEq tablet extended release 10 meq PO DAILY levothyroxine 25 mcg tablet 25 mcg PO DAILY methenamine hippurate 1 gram tablet 1 g PO BID Label Comments: TAKE 1 TABLET BY MOUTH TWICE A DAY WITH MEALS brimonidine 0.2 % drops 2 drp RIGHT EYE BID Label Comments: INSTILL 1 DROP INTO RIGHT EYE 3 TIMES A DAY mirtazapine 15 mg tablet 15 mg PO QHS Label Comments: 1 tablet by mouth once a day polyethylene glycol 3350 [Miralax] 17 gram/dose Powder 17 g PO DAILY sennosides-docusate sodium [Stool Softener-Stimulant Laxat] 8.6-50 mg tablet 2 tab PO BID Rx Instructions: Hold for diarrhea or bowel movement more than 3 times a day latanoprost 0.005 % Drops 1 drp EACH EYE HS Qty: 0 0RF acetaminophen 500 mg Tablet 1,000 mg PO Q6H PRN PRN (Reason: Pain Score 1-10) Qty: 0 0RF menthol-zinc oxide [Calmoseptine] 0.44-20.6 % Ointment 1 applic topical BID@1000,2200 Qty: 0 0RF Protocol: *Topical Application Instructions APPLICATION INSTRUCTIONS: bilat buttocks Referrals / Follow Up: Rosmery Grady MD [Primary Care Provider] - Disposition Disposition (needs filled in before D/C Order can be placed): DC/Tx to Another Type of HCF
--- NOTE | 2022-09-11 18:44 | PCM.TXEXTCAR ---
Diet Diet Order/Speech Therapy: 09/10/22 16:39 Diet: Regular - General Is pt able to select menu?: No Wound(s) Right posterior popliteal: Wound Type: Surgical Incision R femoral: Wound Type: Puncture Problem/Diagnosis (1) DVT (deep venous thrombosis): Status: Acute Code(s): I82.409 - Acute embolism and thrombosis of unspecified deep veins of unspecified lower extremity Plan: -s/p percutaneous mechanical thrombectomy of bilateral iliac veins, IVC, RLE with satisfactory result -situation complicated by prior filter with adjacent intimal hyperplasia and right iliac thickening from prior radiation -cont xarelto 15 BID for 21 days (09/11/22 is day one) followed by 20 daily -dc to TCU -will see her there Wednesday to remove sutures -f/u in office after discharge from TCU (2) Presence of IVC filter: Status: Acute Code(s): Z95.828 - Presence of other vascular implants and grafts (3) Generalized weakness: Status: Acute Code(s): R53.1 - Weakness Allergies/Procedures Done in Hospital Allergies codeine Allergy (Verified 08/31/22 13:37) Hives methylprednisolone Allergy (Verified 08/31/22 13:37) Hives Sulfa (Sulfonamide Antibiotics) Allergy (Verified 08/31/22 13:37) Hives erythromycin base Adverse Reaction (Verified 08/31/22 13:37) Upset Stomach Type of Care/Length of Stay Estimated LOS: Convalescent Care Less Than 30 days Type of Care Needed: Skilled Rehab Potential: Good Prognosis: Good Additional Orders/Day of Discharge Day of Discharge: 09/11/22 Dietary and Speech Recommendations Dietitian Recommendations/Changes: Continue regular diet as tolerated. Continue 120 ml chocolate ensure plus high protein 4 times per day w/ medpass. Additional ONS as needed to optimize oral intake and stabilize weight. Discharge Plan Admission Admit Date/Time: 09/07/22 19:26 Attending Provider: Ethan Schaefer Primary Care Provider: Rosmery Grady Discharge Orders/Prescriptions Prescriptions: New Xarelto 15 mg Tablet 15 mg PO BIDCM 20 Days Qty: 40 0RF Continued atorvastatin 10 MG tablet 40 mg PO QHS ondansetron HCl 8 MG tablet 8 mg PO Q8H PRN PRN (Reason: Nausea) Label Comments: TAKE 1 TABLET BY MOUTH EVERY 8 HOURS NEEDED FOR NAUSEA/VOMITING. sertraline 100 MG tablet 125 mg PO DAILY Label Comments: TAKE 1 TABLET BY MOUTH EVERY DAY cholecalciferol (vitamin D3) [Vitamin D3] 1,000 UNIT tablet 1,000 unit PO DAILY multivitamin with folic acid [Thera] 1 TABLET tablet 1 tab PO DAILY potassium chloride 10 mEq tablet extended release 10 meq PO DAILY levothyroxine 25 mcg tablet 25 mcg PO DAILY methenamine hippurate 1 gram tablet 1 g PO BID Label Comments: TAKE 1 TABLET BY MOUTH TWICE A DAY WITH MEALS brimonidine 0.2 % drops 2 drp RIGHT EYE BID Label Comments: INSTILL 1 DROP INTO RIGHT EYE 3 TIMES A DAY mirtazapine 15 mg tablet 15 mg PO QHS Label Comments: 1 tablet by mouth once a day polyethylene glycol 3350 [Miralax] 17 gram/dose Powder 17 g PO DAILY sennosides-docusate sodium [Stool Softener-Stimulant Laxat] 8.6-50 mg tablet 2 tab PO BID Rx Instructions: Hold for diarrhea or bowel movement more than 3 times a day latanoprost 0.005 % Drops 1 drp EACH EYE HS Qty: 0 0RF acetaminophen 500 mg Tablet 1,000 mg PO Q6H PRN PRN (Reason: Pain Score 1-10) Qty: 0 0RF menthol-zinc oxide [Calmoseptine] 0.44-20.6 % Ointment 1 applic topical BID@1000,2200 Qty: 0 0RF Protocol: *Topical Application Instructions APPLICATION INSTRUCTIONS: bilat buttocks Referrals / Follow Up: Rosmery Grady MD [Primary Care Provider] - Disposition Disposition (needs filled in before D/C Order can be placed): DC/Tx to Another Type of HCF
--- NOTE | 2022-09-11 18:45 | NURSING ---
This RN called and gave report to MONTSE Cohen on TCU.
== END 2022-09-11 19:22 | disposition skilled nursing facility (03) | DRG 271 ==
PROVIDERS: Physician Assistant; Admitting Provider Surgery Trauma Surgery; PCP Internal Medicine; Visit Provider Surgery Trauma Surgery
DX: I82.413 Acute embolism and thrombosis of femoral vein, bilateral (principal); E44.0 Moderate protein-calorie malnutrition; I82.220 Acute embolism and thrombosis of inferior vena cava; I82.431 Acute embolism and thrombosis of right popliteal vein; G35 Multiple sclerosis; I82.461 Acute embolism and thrombosis of right calf muscular vein; I82.441 Acute embolism and thrombosis of right tibial vein; I82.451 Acute embolism and thrombosis of right peroneal vein; I82.422 Acute embolism and thrombosis of left iliac vein; I82.532 Chronic embolism and thrombosis of left popliteal vein; H40.9 Unspecified glaucoma; Z79.01 Long term (current) use of anticoagulants; Z20.822 Contact with and (suspected) exposure to COVID-19; Z79.890 Hormone replacement therapy; Z79.899 Other long term (current) drug therapy; Z85.42 Personal history of malignant neoplasm of other parts of uterus; Z86.711 Personal history of pulmonary embolism; Z68.24 Body mass index [BMI] 24.0-24.9, adult
CPT/HCPCS: 36005; 36010; 36415; 37187; 37248; 37252; 37253; 75822; 75825; 76937; 80048; 84443; 85025; 85027; 85610; 85730; 87426; 93005; 97802; 99152; 99153; C1753; C1769; C1894; J7040; Q9967; A4216; C1725; C1757; C1887

== ENCOUNTER 2022-09-11 19:30 | Inpatient (IN) | payer MEDICARE, SELFPAY ==
[2022-09-11 20:04] VITALS: BP 129/71; PULSE 104; RESP 16; RESP 18; TEMP 37.6; O2SAT 92; BMI 23.4
--- NOTE | 2022-09-11 20:33 | NURSING ---
discussed code status with patient, patient alert to person/place/time/situation. Able to voice wants and needs. Patients wants code status DNRCC, states I don't want anything, just keep me comfortable
--- NOTE | 2022-09-11 21:05 | HP.PCM_ITS ---
HPI - General General Date of Admission: 09/11/22 Date of Service: 09/11/22 Chief Complaint: Here for rehabilitation. HPI Narrative LAKESHIA OSEGUERA, is a 76 Female who presents with followin09/03/2022 - 09/07/2022 TCU resident for debility, acute kidney injury, dehydration, urinary tract infection, extensive right lower extremity DVT. 09/07/2022 Admitted to [facility] for heparin drip. 09/08/2021 Dr. Schaefer performed thrombectomy, balloon angioplasty of right lower extremity DVT. 09/09/2022 Doing well, right leg less taut, but still swelling, heaviness. Plan to remove clot from IVC filter. Continue heparin drip, NPO after midnight. 09/10/2022 Dr. Schaefer performed IVC venogram, percutaneous thrombectomy IVC, bilateral common and external arteries angioplasty, IVUS. 09/11/2022 Admit to TCU with debility, here for rehabilitation, strengthening, prior to discharge home alone. [facility] Medical History Brain bleed Glaucoma Multiple sclerosis Presence of IVC filter Pulmonary embolism Pulmonary nodule Uterine cancer Home Medications atorvastatin 10 mg tablet 40 mg PO QHS cholesterol lowering 09/08/18 [History Last Taken 08/30/22] cholecalciferol (vitamin D3) 25 mcg (1,000 unit) tablet (Vitamin D3) 1,000 unit PO DAILY supplement 09/08/18 [History Last Taken 09/07/18] multivitamin with folic acid 400 mcg tablet (Thera) 1 tab PO DAILY supplement 09/08/18 [History Last Taken 08/31/22] ondansetron HCl 8 mg tablet 8 mg PO Q8H PRN PRN Nausea 09/08/18 [History Last Taken 09/07/18] sertraline 100 mg tablet 125 mg PO DAILY mental health 09/08/18 [History Last Taken 08/31/22] brimonidine 0.2 % eye drops 2 drp RIGHT EYE TID glaucoma 08/31/22 [History Last Taken 08/30/22] levothyroxine 25 mcg tablet 25 mcg PO DAILY thyroid 08/31/22 [History Last Taken 08/31/22] methenamine hippurate 1 gram tablet 1 g PO BID Bladder 08/31/22 [History Last Taken 08/30/22] mirtazapine 15 mg tablet 15 mg PO QHS sleep 08/31/22 [History Last Taken 08/30/22] polyethylene glycol 3350 17 gram/dose oral powder (Miralax) 17 g PO DAILY constipation 08/31/22 [History Last Taken 08/30/22] potassium chloride 10 mEq tablet,extended release 10 meq PO DAILY supplement 08/31/22 [History Last Taken 08/31/22] sennosides 8.6 mg-docusate sodium 50 mg tablet (Stool Softener-Stimulant Laxative) 2 tab PO BID stool softener 09/03/22 [History Last Taken Unknown] acetaminophen 500 mg tablet 1,000 mg PO Q6H PRN PRN Pain Score 1-10 #0 tabs 09/07/22 [Rx Last Taken Unknown] latanoprost 0.005 % eye drops 1 drp EACH EYE Eye health 09/11/22 [History Last Taken Unknown] menthol 0.44 %-zinc oxide 20.6 % topical ointment (Calmoseptine) 1 applic topical BID@1000,2200 Skin protection 09/11/22 [History Last Taken Unknown] rivaroxaban 15 mg tablet (Xarelto) 15 mg PO BIDCM Blood thinner 09/11/22 [History Last Taken Unknown] Allergy/AdvReac Type Severity Reaction Status Date / Time codeine Allergy Hives Verified 08/31/22 13:37 methylprednisolone Allergy Hives Verified 08/31/22 13:37 Sulfa (Sulfonamide Allergy Hives Verified 08/31/22 13:37 Antibiotics) erythromycin base AdvReac Upset Verified 08/31/22 13:37 Stomach Surgical History H/O: hysterectomy History of section Social History household members: none housing: house Smoking Status: Never smoker alcohol intake: never substance use type: does not use ROS Constitutional Constitutional: Reports fatigue and weakness; Denies chills, fever(s) or weight gain ENT HEENT: Denies headache(s), nasal congestion or nasal discharge Cardiovascular Cardiovascular: Denies chest pain or palpitations Respiratory/Chest Respiratory/Chest: Denies cough, excessive phlegm production or shortness of kirstie ath with exertion Gastrointestinal Gastrointestinal: Denies abdominal pain, nausea or vomiting Genitourinary Genitourinary: Denies dysuria Musculoskeletal Musculoskeletal: Denies joint pain or joint swelling Integumentary Integumentary: Denies rash or wounds Neurologic Neurologic: Denies focal weakness, numbness or tingling Psychiatric Psychiatric: Denies anxiety, auditory hallucinations, depression, homicidal ideation or suicidal ideation Physical Exam Const alert General Appearance: cooperative HEENT normocephalic Eyes PERRL and EOMs intact bilaterally Neck supple, no JVD and no carotid bruits Resp normal respiratory effort, normal air movement and clear to auscultation bilaterally Cardio regular rate and regular rhythm GI normal to inspection, nondistended, normoactive bowel sounds, non-tender and non-distended Extremity normal capillary refill General Extremity: Negative for edema Skin no rashes or lesions noted General Skin Exam: no breakdown Psych affect normal Appearance: appropriate Assessment & Plan Assessment/Plan (1) Debility: (2) Weakness: (3) Deep vein thrombosis, lower right extremity: (4) Hyperlipidemia: (5) Glaucoma: (6) Hypothyroidism: (7) Recurrent urinary tract infection: (8) Depression: (9) Nausea: (10) Hypokalemia: (11) Vitamin D deficiency: PLAN: Plan 76 year old female with below past medical history hospitalized for right lower extremity thrombectomy, IVC filter blood clot removal, admitted to TCU with debility, here for rehabilitation, strengthening, prior to discharge home alone. * Debility - PT/OT. * Pain - Tylenol 1000mg q6h prn pain (1-10). * Bowel - Miralax 17gm daily, senna/colace 2 tablets bid. * Adult immunization - Administer pneumonia vaccine, covid19 vaccine, flu vaccine as appropriate. * DVT prophylaxis - Not necessary, on Xarelto. * Hyperlipidemia - Atorvastatin 40mg qhs. * Glaucoma - Brimonidine 0.2% 2gtt od bid, Latanoprost 0.005% 1gtt ou qhs. * Nutrition - Ensure Plus 120ml 4x/day, MVI daily. * Hypothyroidism - Levothyroxine 25mcg daily. * Skin irritation - Calmoseptine topical bid. * Recurrent UTI - Methenamine 1gm bid. * Depression - Sertraline 125mg daily, Mirtazapine 15mg qhs, stable chronic intermission coordinator use, GDR not recommended. * Nausea - Zofran 8mg q8h prn. * Hypokalemia - KCL 10meq daily. * Vitamin D deficiency - D3 25mcg daily. * Extensive right lower extremity DVT:? Xarelto 15mg bid thru 10/02/2022, then 20mg daily.
[2022-09-11] MEDS: Atorvastatin Calcium 40 MG Tablet PO (21:53)
[2022-09-11] MEDS: Ensure Plus High Protein 120 ML LIQUID PO (21:53)
[2022-09-11] MEDS: Mirtazapine 15 MG Tablet PO (21:53)
[2022-09-11] MEDS: BRIMONIDINE 0.2% 5ML BOTTLE 2 DRP RIGHT EYE (21:54)
[2022-09-11] MEDS: Latanoprost 0.005% 1 Bottle 1 DRP EACH EYE (21:56)
[2022-09-12] MEDS: BRIMONIDINE 0.2% 5ML BOTTLE 2 DRP RIGHT EYE ×3 (05:38→20:44)
[2022-09-12] MEDS: Ensure Plus High Protein 120 ML LIQUID PO ×4 (05:40→20:43)
[2022-09-12] MEDS: Methenamine Hippurate 1 GM Tablet PO ×2 (05:42→17:13)
[2022-09-12] MEDS: Polyethylene Glycol 3350 17 GM PACKET PO (05:42)
[2022-09-12] MEDS: Senna/Docusate Sodium 1 Tablet 2 TABLET PO ×2 (05:42→17:13)
[2022-09-12] MEDS: Levothyroxine 25 MCG TABLET PO (05:43)
[2022-09-12] MEDS: Sertraline 100 MG Tablet 125 MG PO (05:44)
[2022-09-12] MEDS: Cholecalciferol (VIT D3) 25 MCG TABLET (1,000 UNITS) PO (05:44)
--- NOTE | 2022-09-12 07:32 | NURSING ---
Dressing in right groin noted to be off this AM during med pass. 2 sutures noted, intact without drainage or bleeding. Incision covered DSD. Pt asked for a shower. Groin dressing and dressing behind right knee covered and pt assisted with shower via 1 assist. Pt very appreciative. Set-up in recliner for breakfast and left in safe position with call light within reach.
[2022-09-12] MEDS: Multivitamins,Therapeutic Tablet 1 TABLET PO (07:45)
[2022-09-12] MEDS: Potassium Chloride Oral Tablet 10 MEQ PO (07:45)
[2022-09-12] MEDS: Rivaroxaban 15 MG Tablet PO ×2 (07:46→17:12)
[2022-09-12 08:41] LABS: Absolute Lymphocyte Count 1.88 X10^3/uL (0.83-4.51); Absolute Neutrophil Count 9.8 X10^3/uL (2.0-7.7); Basophil# 0.05 X10^3/uL; Basophil% 0.4 % (0-1); Eosinophil# 0.48 X10^3/uL; Eosinophils% 3.6 % (0-5); Hematocrit 28.6 % (37-47); Hemoglobin 8.9 g/dL (12.0-15.0); Lymphocyte # 1.88 X10^3/ul (0.83-4.51); Lymphocyte % 13.9 % (19-41); Mean Corp Hgb Conc 31.1 g/dL (32-36); Mean Corpuscular Hgb 28.4 pg (27.0-32.0); Mean Corpuscular Volume 91.4 fL (81-99); Mean Platelet Vol. 9.2 fl (6.2-12.0); Monocyte# 0.99 X10^3/uL; Monocyte% 7.3 % (0-10); NRBC Flagged by Analyzer 0 % (0-5); Neutrophil # 9.79 X10^3/uL (2.7-7.7); Neutrophil % 72.6 % (47-70); Platelet Count 408 K/mm3 (150-450); RBC Distribution Width SD 47.2 fl (35.1-43.9); Red Blood Count 3.13 M/mm3 (4.2-5.4); White Blood Count 13.5 K/mm3 (4.4-11.0)
[2022-09-12 09:08] LABS: Anion Gap 10 (5-15); BUN 12 mg/dL (7-18); BUN/Creat Ratio 15.3 RATIO (10-20); Calcium,Total 8.7 mg/dL (8.5-10.1); Chloride 104 mmol/L (98-107); Creatinine, Serum 0.78 mg/dL (0.55-1.02); EST Glomerular Filtration Rate 76 mL/min (>60); Est Glom Filt Rate - Afr Amer 92 mL/min (>60); Estimated Creatinine Clearance 35.45 ml/min; Glucose 126 mg/dL (74-106); Potassium 3.7 mmol/L (3.5-5.1); Sodium Level 139 mmol/L (136-145)
[2022-09-12] MEDS: Tuberculin,Purif.prot.deriv. 50 TU/ML Vial 0.1 ML ID (13:31)
[2022-09-12 14:00] VITALS: BP 120/65; PULSE 94; RESP 18; TEMP 36.3; O2SAT 95
[2022-09-12] MEDS: Mirtazapine 15 MG Tablet PO (20:43)
[2022-09-12] MEDS: Latanoprost 0.005% 1 Bottle 1 DRP EACH EYE (20:43)
[2022-09-12] MEDS: Atorvastatin Calcium 40 MG Tablet PO (20:43)
[2022-09-12 21:07] VITALS: PULSE 95; RESP 16; O2SAT 92
[2022-09-13] MEDS: BRIMONIDINE 0.2% 5ML BOTTLE 2 DRP RIGHT EYE ×3 (05:28→21:33)
[2022-09-13] MEDS: Ensure Plus High Protein 120 ML LIQUID PO ×4 (05:30→19:44)
[2022-09-13] MEDS: Levothyroxine 25 MCG TABLET PO (05:31)
[2022-09-13] MEDS: Sertraline 100 MG Tablet 125 MG PO (05:31)
[2022-09-13] MEDS: Methenamine Hippurate 1 GM Tablet PO ×2 (05:31→17:06)
[2022-09-13] MEDS: Polyethylene Glycol 3350 17 GM PACKET PO (05:34)
[2022-09-13] MEDS: Senna/Docusate Sodium 1 Tablet 2 TABLET PO ×2 (05:36→17:06)
[2022-09-13] MEDS: Cholecalciferol (VIT D3) 25 MCG TABLET (1,000 UNITS) PO (05:36)
[2022-09-13] MEDS: Multivitamins,Therapeutic Tablet 1 TABLET PO (08:00)
[2022-09-13] MEDS: Rivaroxaban 15 MG Tablet PO ×2 (08:00→17:05)
[2022-09-13] MEDS: Potassium Chloride Oral Tablet 10 MEQ PO (08:00)
[2022-09-13] MEDS: Menthol/Lanolin/Calamine/Znox 113 GM Tube 1 APPLIC TOPICAL ×2 (09:56→21:29)
[2022-09-13 14:00] VITALS: BP 120/54; PULSE 87; RESP 14; TEMP 36.6; O2SAT 98
[2022-09-13] MEDS: Latanoprost 0.005% 1 Bottle 1 DRP EACH EYE (21:27)
[2022-09-13] MEDS: Mirtazapine 15 MG Tablet PO (21:28)
[2022-09-13] MEDS: Atorvastatin Calcium 40 MG Tablet PO (21:28)
[2022-09-14] MEDS: Ensure Plus High Protein 120 ML LIQUID PO ×3 (05:41→21:33)
[2022-09-14] MEDS: BRIMONIDINE 0.2% 5ML BOTTLE 2 DRP RIGHT EYE ×3 (05:42→21:36)
[2022-09-14] MEDS: Cholecalciferol (VIT D3) 25 MCG TABLET (1,000 UNITS) PO (05:42)
[2022-09-14] MEDS: Sertraline 100 MG Tablet 125 MG PO (05:44)
[2022-09-14] MEDS: Methenamine Hippurate 1 GM Tablet PO ×2 (05:45→17:29)
[2022-09-14] MEDS: Senna/Docusate Sodium 1 Tablet 2 TABLET PO ×2 (05:45→17:28)
[2022-09-14] MEDS: Levothyroxine 25 MCG TABLET PO (05:45)
[2022-09-14] MEDS: Polyethylene Glycol 3350 17 GM PACKET PO (05:46)
[2022-09-14] MEDS: Potassium Chloride Oral Tablet 10 MEQ PO (08:07)
[2022-09-14] MEDS: Multivitamins,Therapeutic Tablet 1 TABLET PO (08:07)
[2022-09-14] MEDS: Menthol/Lanolin/Calamine/Znox 113 GM Tube 1 APPLIC TOPICAL (08:08)
[2022-09-14 08:59] LABS: Bacteria 0 SEEN /hpf (None Seen); Mucous, Urine 0 SEEN /hpf (<or=2+); Red Blood Cells-Urine 0 SEEN /hpf (0-5); White Blood Cells 0 SEEN /hpf (0-5)
[2022-09-14 09:01] LABS: Color, Urine Yellow (Yellow); Glucose, Dipstick Normal (Normal); Ketone-Dipstick Negative (Negative); Leukocyte Esterase-Dipstick Negative /ul (Negative); Nitrite-Dipstick Negative (Negative); Occult Blood-Urine Negative /ul (Negative); Protein-Dipstick Negative (Negative); Urine Bilirubin Dipstick Negative (Negative); Urine Clarity Sl. Cloudy (Clear); Urine Urobilinogen Normal (Normal); Urine pH 6.5 (5.0 - 8.0)
[2022-09-14 09:07] LABS: Squamous Epithelial Cells - UA 0-5 SEEN /hpf (5-10)
--- NOTE | 2022-09-14 09:13 | NURSING ---
It Generalist Note; Activity Asset: Ema Becker is independent in her choice of daily activities. Rosita has stated she prefers to do activities in her room at this time. I will do social visit with her and give her independent activity items for her room. She reads her bible, watches tv and works on word puzzles and uses her smart phone.
--- NOTE | 2022-09-14 10:58 | PCM.PN.DRR ---
TCU RX Drug Regimen Review Subjective: TCU Admission. 76 YOF was on TCU 09/03/22-09/07/22 for debility, acute kidney injury, dehydration, urinary tract infection, extensive right lower extremity DVT. Admitted to the hospital for heparin gtt secondary to DVT. Hospitalized for right lower extremity thrombectomy, IVC filter blood clot removal with Dr. Schaefer. Admitted to TCU with debility for strengthening and rehabilitation. Objective: Allergies codeine Allergy (Verified 08/31/22 13:37) Hives methylprednisolone Allergy (Verified 08/31/22 13:37) Hives Sulfa (Sulfonamide Antibiotics) Allergy (Verified 08/31/22 13:37) Hives erythromycin base Adverse Reaction (Verified 08/31/22 13:37) Upset Stomach Current Medications Generic Name Dose Route Start Last Admin Trade Name Freq PRN Reason Stop Dose Admin Acetaminophen 1,000 mg 09/11/22 20:41 Acetaminophen 500 Mg Tablet PO Q6H PRN PRN Pain Score 1-10 Atorvastatin Calcium 40 mg 09/11/22 22:00 09/13/22 21:28 Atorvastatin Calcium 40 Mg Tablet PO 40 mg QHS BHUPINDER Administration Brimonidine Tartrate 2 drp 09/11/22 22:00 09/14/22 05:42 Brimonidine 0.2% 5ml Bottle RIGHT EYE 2 drp TID BHUPINDER Administration Calamine/Phenol 1 applic 09/11/22 22:00 09/14/22 08:08 Menthol/Lanolin/Calamine/Znox 113 Gm Tube TOPICAL 1 applic BID@1000,2200 BHUPINDER Administration Protocol Cholecalciferol 25 mcg 09/12/22 06:00 09/14/22 05:42 Cholecalciferol (Vit D3) 25 Mcg Tablet (1,000 Units) PO 25 mcg DAILY BHUPINDER Administration Latanoprost 1 drp 09/11/22 22:00 09/13/22 21:27 Latanoprost 0.005% 1 Bottle EACH EYE 1 drp HS BHUPINDER Administration Levothyroxine Sodium 25 mcg 09/12/22 06:00 09/14/22 05:45 Levothyroxine 25 Mcg Tablet PO 25 mcg DAILY BHUPINDER Administration Methenamine Hippurate 1 gm 09/12/22 06:00 09/14/22 05:45 Methenamine Hippurate 1 Gm Tablet PO 1 gm BID BHUPINDER Administration Mirtazapine 15 mg 09/11/22 22:00 09/13/22 21:28 Mirtazapine 15 Mg Tablet PO 15 mg QHS BHUPINDER Administration Multivitamins 1 tablet 09/12/22 08:00 09/14/22 08:07 Multivitamins,Therapeutic Tablet PO 1 tablet DAILYCM BHUPINDER Administration Nutritional Formula (Lactose Free) 120 ml 09/11/22 22:00 09/14/22 05:41 Ensure Plus High Protein 120 Ml Liquid PO 120 ml 4X/DAY BHUPINDER Administration Ondansetron HCl 8 mg 09/11/22 20:41 Ondansetron 8 Mg Tablet PO Q8H PRN PRN Nausea Polyethylene Glycol 17 gm 09/12/22 06:00 09/14/22 05:46 Polyethylene Glycol 3350 17 Gm Packet PO 17 gm DAILY BHUPINDER Administration Potassium Chloride 10 meq 09/12/22 08:00 09/14/22 08:07 Potassium Chloride Oral Tablet 10 Meq PO 10 meq DAILYCM BHUPINDER Administration Rivaroxaban 15 mg 09/12/22 08:00 09/13/22 17:05 Rivaroxaban 15 Mg Tablet PO 10/02/22 08:01 15 mg BIDCM BHUPINDER Administration Rivaroxaban 20 mg 10/03/22 17:00 Rivaroxaban 20 Mg Tablet PO DINNER [facility] Senna/Docusate Sodium 2 tablet 09/12/22 06:00 09/14/22 05:45 Senna/Docusate Sodium 1 Tablet PO 2 tablet BID BHUPINDER Administration Sertraline HCl 125 mg 09/12/22 06:00 09/14/22 05:44 Sertraline 100 Mg Tablet PO 125 mg DAILY BHUPINDER Administration Sodium Chloride 10 - 40 ml 09/11/22 20:21 0.9% Saline Lock 10 Ml Syringe IV UD PRN SALINE FLUSH Tuberculin PPD 0.1 ml 09/19/22 10:00 Tuberculin,Purif.Prot.Deriv. 50 Tu/Ml Vial ID 09/19/22 10:01 X1 ONE Problem List (Last Reviewed 09/11/22 @ 21:[address] Bernardino Min MD) Vitamin D deficiency (Acute) Hypokalemia (Acute) Nausea (Acute) Depression (Acute) Recurrent urinary tract infection (Acute) Hypothyroidism (Acute) Glaucoma (Acute) Hyperlipidemia (Acute) Deep vein thrombosis, lower right extremity (Acute) Weakness (Acute) Debility (Acute) Vital Signs Temp Pulse Resp BP Pulse Ox O2 Del Method 97.9 F 87 14 120/54 L 98 Room Air 09/13/22 14:00 09/13/22 14:00 09/13/22 14:00 09/13/22 14:00 09/13/22 14:00 09/13/22 14:00 Oxygen Delivery Method Room Air Weight: 54.386 kg Body Mass Index (BMI) 23.4 Sodium 139 mmol/L (136-145) 09/12/22 08:21 Potassium 3.7 mmol/L (3.5-5.1) 09/12/22 08:21 Chloride 104 mmol/L (98-107) 09/12/22 08:21 Carbon Dioxide 25.0 mmol/L (21.0-32.0) 09/12/22 08:21 Anion Gap 10 (5-15) 09/12/22 08:21 BUN 12 mg/dL (7-18) 09/12/22 08:21 Creatinine 0.78 mg/dL (0.55-1.02) 09/12/22 08:21 Est GFR (MDRD) Af Amer 92 mL/min (>60) 09/12/22 08:21 Est GFR (MDRD) Non-Af 76 mL/min (>60) 09/12/22 08:21 BUN/Creatinine Ratio 15.3 RATIO (10-20) 09/12/22 08:21 Glucose 126 mg/dL (74-106) H 09/12/22 08:21 Assessment/Plan: 1. Pain: acetaminophen 1000mg PO Q6H PRN pain 1-10. Resident has not had any doses. Please continue to monitor for increased pain and PRN usage. 2. Bowel: Miralax 17gm PO daily and senna/docusate 2T PO BID. Please continue to monitor for constipation. Last documented bowel movement from today. 3. Extensive RLE DVT: rivaroxaban 15mg PO BIDCM thru 10/02/22 (currently on hold until 09/17), then 20mg PO daily. Please continue to monitor for S/S of bleeding and hemoglobin (last 8g/dL). 4. Hyperlipidemia: atorvastatin 40mg PO QHS. Please consider ordering a lipid panel as this resident does not have one in the chart. Thanks. Please continue to monitor for muscle pain and LFTs (last 09/03/22). 5. Glaucoma: brimonidine 0.2% 2gtt OS BID and latanoprost 0.005% 1gtt OU QHS. Please continue to monitor for S/S of glaucoma and dry eyes. 6. Hypothyroidism: levothyroxine 25mcg PO daily. Please continue to monitor TSH (last 09/08/22) and S/S of hypo/hyperthyroidism. 7. Recurrent UTI: methenamine 1gm PO BID. Please continue to monitor for S/S of UTI. 8. Nausea: ondansetron 8mg PO Q8H PRN nausea. Please continue to monitor for nausea and PRN usage. Resident has not had any doses. 9. Hypokalemia: potassium chloride 10mEq PO daily. Please continue to monitor potassium level (last 3.7mmol/L). 10. Vitamin D deficiency/nutrition: cholecalciferol 25mcg PO daily and multivitamin 1T PO daily. Please consider ordering a vitamin D level. Resident does not have one in the chart. Thanks. Assessment/Plan for indications treated with psychotropic medications: 1. Depression: sertraline 125mg PO daily and mirtazapine 15mg PO QHS. Please see physician note regarding GDR. Please continue to monitor for S/S of suicidal ideation (black box warning), falls/fractures (BEERs criteria medication), sodium (last 139mmol/L, BEERs critieria for hyponatremia), and weight gain. Medical chart and medication regimen reviewed. The following medication irregularities or issues were identified: *1. Atorvastatin 40mg PO QHS. Please consider ordering a lipid panel as this resident does not have one in the chart. Thanks. *2. Cholecalciferol 25mcg PO daily. Please consider ordering a vitamin D level. Resident does not have one in the chart. Thanks. Date of Note:: 09/14/22
[2022-09-14] MEDS: Acetaminophen 500 MG Tablet 1000 MG PO (11:10)
[2022-09-14] MEDS: 0.9% Saline Lock 10 ML Syringe IV (11:47)
--- NOTE | 2022-09-14 12:15 | NURSING ---
Resident complaining of frequent urination and bladder fullness/pressure, residents admitting dx UTI. She is requesting a U/a C&S at this time stating she gets UTI's frequently and she feels like one is starting. She denies abdominal and back pain but states she never has discomfort when she does have a UTI due to her MS. Dr. Min updated and N.O. for U/A C&S
[2022-09-14 14:00] VITALS: BP 111/55; PULSE 93; RESP 20; TEMP 36.3; O2SAT 83
--- NOTE | 2022-09-14 16:37 | CASEMGMT ---
Social Work Met with pt. Pt is a readmit from surgery. No changes to code status, MOLST form, or any assessment information. Pt asked for this worker to speak with son, Rivera, via conference call. Spoke with pt and son. Answered questions. Pt agreed to inviting son to POC mtg 09/16 to get questions answered from IDT outside of this worker's scope. Son appreciative. Educated to [facility] insurance with NRD 09/14 and continued stay is not guaranteed with each review. Pt's goal is to return home alone. Both son's work full stack web developer and cannot assist consistently. However, pt is progressing well, and will be ready to DC home shortly. Pt, son and this worker discussed concerns about pt's lack of appetite and being a picky eater. SW offered to close eyes before looking at food on try, and trying a bit of each serving before deciding to eat or not. SW explained eating with our eyes, mind, stomach, and not with our taste buds. Pt agreed to trying that method in hopes to increase appetite. Son appreciative of call. SW to continue to follow for DC planning. Dipika Hall, DELIVERY DIRECTOR TOOL PLANNER
[2022-09-14] MEDS: Latanoprost 0.005% 1 Bottle 1 DRP EACH EYE (21:32)
[2022-09-14] MEDS: Atorvastatin Calcium 40 MG Tablet PO (21:33)
[2022-09-14] MEDS: Mirtazapine 15 MG Tablet PO (21:33)
[2022-09-14 22:17] VITALS: O2SAT 94
[2022-09-15 05:25] LABS: Hematocrit 26.9 % (37-47); Hemoglobin 8.3 g/dL (12.0-15.0)
[2022-09-15] MEDS: Polyethylene Glycol 3350 17 GM PACKET PO (05:41)
[2022-09-15] MEDS: BRIMONIDINE 0.2% 5ML BOTTLE 2 DRP RIGHT EYE ×3 (05:42→20:24)
[2022-09-15] MEDS: Ensure Plus High Protein 120 ML LIQUID PO ×4 (05:42→20:22)
[2022-09-15] MEDS: Sertraline 100 MG Tablet 125 MG PO (05:43)
[2022-09-15] MEDS: Senna/Docusate Sodium 1 Tablet 2 TABLET PO ×2 (05:44→17:18)
[2022-09-15] MEDS: Cholecalciferol (VIT D3) 25 MCG TABLET (1,000 UNITS) PO (05:45)
[2022-09-15] MEDS: Levothyroxine 25 MCG TABLET PO (05:45)
[2022-09-15] MEDS: Methenamine Hippurate 1 GM Tablet PO ×2 (05:45→17:18)
[2022-09-15] MEDS: Potassium Chloride Oral Tablet 10 MEQ PO (08:36)
[2022-09-15] MEDS: Multivitamins,Therapeutic Tablet 1 TABLET PO (08:36)
[2022-09-15] MEDS: 0.9% Saline Lock 10 ML Syringe IV ×2 (09:50→21:41)
[2022-09-15 10:00] VITALS: PULSE 83; RESP 18; O2SAT 93
[2022-09-15] MEDS: Menthol/Lanolin/Calamine/Znox 113 GM Tube 1 APPLIC TOPICAL ×2 (11:13→20:23)
[2022-09-15 13:50] VITALS: BP 119/54; PULSE 86; RESP 14; TEMP 36.1; O2SAT 96
[2022-09-15] MEDS: Acetaminophen 500 MG Tablet 1000 MG PO (15:05)
[2022-09-15] MEDS: Latanoprost 0.005% 1 Bottle 1 DRP EACH EYE (20:23)
[2022-09-15] MEDS: Mirtazapine 15 MG Tablet PO (20:24)
[2022-09-15] MEDS: Atorvastatin Calcium 40 MG Tablet PO (20:24)
[2022-09-16] MEDS: Sertraline 100 MG Tablet 125 MG PO (05:21)
[2022-09-16] MEDS: Methenamine Hippurate 1 GM Tablet PO ×2 (05:23→17:05)
[2022-09-16] MEDS: Cholecalciferol (VIT D3) 25 MCG TABLET (1,000 UNITS) PO (05:24)
[2022-09-16] MEDS: Senna/Docusate Sodium 1 Tablet 2 TABLET PO (05:24)
[2022-09-16] MEDS: Levothyroxine 25 MCG TABLET PO (05:24)
[2022-09-16] MEDS: Polyethylene Glycol 3350 17 GM PACKET PO (05:24)
[2022-09-16] MEDS: BRIMONIDINE 0.2% 5ML BOTTLE 2 DRP RIGHT EYE ×3 (05:25→21:12)
[2022-09-16] MEDS: Multivitamins,Therapeutic Tablet 1 TABLET PO (07:51)
[2022-09-16] MEDS: Potassium Chloride Oral Tablet 10 MEQ PO (07:51)
--- NOTE | 2022-09-16 09:02 | CASEMGMT ---
Social Work IDT met with patient, son then son via conference call for care plan meeting. Discussed patient's progress in PT/OT/SN. Educated to [facility] 09[facility]16 and insurance indicated issuing DC date. Pt states she feels ready to DC home. SW to coordinate skilled HHC PT/OT/GRACE. However, IDT identified some safety awareness deficits and consulted ST to evaluate. Answered pt/family questions. SW provided [employer] and nonskilled CHIROPRACTIC ASSISTANT resources. Family appreciative. SW to continue to follow. Dipika Hall, PANEL INSTRUMENT REPAIRER SUPERVISOR PURIFICATION
[2022-09-16] MEDS: Ensure Plus High Protein 120 ML LIQUID PO ×3 (11:14→21:14)
[2022-09-16] MEDS: Acetaminophen 500 MG Tablet 1000 MG PO ×2 (11:16→23:28)
[2022-09-16 14:00] VITALS: BP 121/53; PULSE 88; RESP 14; TEMP 36.3; O2SAT 95
--- NOTE | 2022-09-16 15:41 | CASEMGMT ---
Addendum entered by Dipika Hall 09/18/22 13:45: Son provided selections. First choice is [facility]. Referral made via [employer]. Addendum entered by Dipika Hall 09/18/22 11:32: [facility] is unable to service area. Contacted son and resent list with smaller radius. Son to decide and notify this worker via [employer] of new selections. Addendum entered by Dipika Hall 09/18/22 11:06: Followed up with pt about C choice, whom directed me to speak with son, Min. SW spoke with son and he requested [facility]. Referral phoned. Original Note: Social Work Insurance issued LCD 09/18, DC 09/19. Spoke with pt and pt is agreeable. Provided printed list of skilled [facility] providers with quality and resource data via [employer] Pt to make selection and notify this worker. Pt has no DME needs. Family to transport. Plan: DC home alone 09/19, [facility] PT/OT/ST/GRACE DAVID LiW
--- NOTE | 2022-09-16 19:05 | DS.PCM_ITS ---
Providers Date of Admission: 09/11/22 Primary Care Physician: Rosmery Grady MD Reason For Visit: THROMBECTOMY Diagnosis Discharge Diagnosis (1) Debility: Status: Acute Code(s): R53.81 - Other malaise (2) Weakness: Status: Acute Code(s): R53.1 - Weakness (3) Deep vein thrombosis, lower right extremity: Status: Acute Code(s): I82.401 - Acute embolism and thrombosis of unspecified deep veins of right lower extremity (4) Hyperlipidemia: Status: Acute Code(s): E78.5 - Hyperlipidemia, unspecified (5) Glaucoma: Status: Acute Code(s): H40.9 - Unspecified glaucoma (6) Hypothyroidism: Status: Acute Code(s): E03.9 - Hypothyroidism, unspecified (7) Recurrent urinary tract infection: Status: Acute Code(s): N39.0 - Urinary tract infection, site not specified (8) Depression: Status: Acute Code(s): F32.A - Depression, unspecified (9) Nausea: Status: Acute Code(s): R11.0 - Nausea (10) Hypokalemia: Status: Acute Code(s): E87.6 - Hypokalemia (11) Vitamin D deficiency: Status: Acute Code(s): E55.9 - Vitamin D deficiency, unspecified Plan 76 year old female with below past medical history hospitalized for right lower extremity thrombectomy, IVC filter blood clot removal, admitted to TCU with debility, here for rehabilitation, strengthening, prior to discharge home alone. * Debility - PT/OT. * Pain - Tylenol 1000mg q6h prn pain (1-10). * Bowel - Miralax 17gm daily, senna/colace 2 tablets bid. * Adult immunization - Administer pneumonia vaccine, covid19 vaccine, flu vaccine as appropriate. * DVT prophylaxis - Not necessary, on Xarelto. * Hyperlipidemia - Atorvastatin 40mg qhs. * Glaucoma - Brimonidine 0.2% 2gtt od bid, Latanoprost 0.005% 1gtt ou qhs. * Nutrition - Ensure Plus 120ml 4x/day, MVI daily. * Hypothyroidism - Levothyroxine 25mcg daily. * Skin irritation - Calmoseptine topical bid. * Recurrent UTI - Methenamine 1gm bid. * Depression - Sertraline 125mg daily, Mirtazapine 15mg qhs, stable chronic long-term use, GDR not recommended. * Nausea - Zofran 8mg q8h prn. * Hypokalemia - KCL 10meq daily. * Vitamin D deficiency - D3 25mcg daily. * Extensive right lower extremity DVT:? Xarelto 15mg bid thru 10/02/2022, then 20mg daily. Medications at Discharge Home Medications atorvastatin 10 mg tablet 40 mg PO QHS cholesterol lowering 09/08/18 cholecalciferol (vitamin D3) 25 mcg (1,000 unit) tablet (Vitamin D3) 1,000 unit PO DAILY supplement 09/08/18 multivitamin with folic acid 400 mcg tablet (Thera) 1 tab PO DAILY supplement 09/08/18 ondansetron HCl 8 mg tablet 8 mg PO Q8H PRN PRN Nausea 09/08/18 sertraline 100 mg tablet 125 mg PO DAILY mental health 09/08/18 brimonidine 0.2 % eye drops 2 drp RIGHT EYE TID glaucoma 08/31/22 levothyroxine 25 mcg tablet 25 mcg PO DAILY thyroid 08/31/22 methenamine hippurate 1 gram tablet 1 g PO BID Bladder 08/31/22 mirtazapine 15 mg tablet 15 mg PO QHS sleep 08/31/22 polyethylene glycol 3350 17 gram/dose oral powder (Miralax) 17 g PO DAILY constipation 08/31/22 potassium chloride 10 mEq tablet,extended release 10 meq PO DAILY supplement 08/31/22 acetaminophen 500 mg tablet 1,000 mg PO Q6H PRN PRN Pain Score 1-10 #0 tabs 09/07/22 latanoprost 0.005 % eye drops 1 drp EACH EYE Eye health 09/11/22 rivaroxaban 15 mg tablet (Xarelto) 15 mg PO BIDCM 14 days #28 tabs 09/16/22 rivaroxaban 20 mg tablet (Xarelto) 20 mg PO DINNER 30 days #30 tabs 09/16/22 Hospital Course Operations - (See below.) Procedures None Summary of Care Provided Minutes Spent on Discharge: 35 Hospital Course: 76 year old female with below past medical history hospitalized for right lower extremity thrombectomy, IVC filter blood clot removal, admitted to TCU with debility, here for rehabilitation, strengthening, prior to discharge home alone. Discharge home alone 09/19/2022, Home Health Care PT/OT/ST/GRACE. Physical Exam Const alert General Appearance: cooperative HEENT normocephalic Eyes PERRL and EOMs intact bilaterally Neck supple, no JVD and no carotid bruits Resp normal respiratory effort, normal air movement and clear to auscultation bilaterally Cardio regular rate and regular rhythm GI normal to inspection, nondistended, normoactive bowel sounds, non-tender and non-distended Extremity normal capillary refill General Extremity: Negative for edema Skin no rashes or lesions noted General Skin Exam: no breakdown Psych affect normal Appearance: appropriate Medical Records Data Medical Nutrition Assessment Dietitian: Malnutrition Criteria Met Start: 09/14/22 13:46 Freq: Status: Active Protocol: Document 09/16/22 11:06 [facility] (Rec: 09/16/22 11:07 [facility] [id number]) Nutrition Malnutrition Evidence of Malnutrition Exists Yes Malnutrition (moderate): Acute Illness/Injury Evidenced By Suboptimal Energy Intake ( Moderate),Physical Changes ( Moderate) Clinical Problem Acute Disease or Injury Related Malnutrition Etiology related to ongoing illness and recent surgery and inability to consume adequate nutrition to meet est nutritional needs Signs/Symptoms as evidenced by variable ( mostly <50%) po intake at meals and fat/muscle loss to face, clavicles and arms. Status Active Problem Recommendation Dietitian Recommendations/Changes Will continue liberal regular diet w/ fortified foods d/t signs and symptoms of malnutrition Will continue 120 ml ensure plus high protein 4x/day w/ medpass for increased nutrition if consumed. Weight / BMI Weight Weight: 52.707 kg Body Mass Index (BMI) 23.4 ABG / Lab / Microbiology Data Result Diagrams: 09/15/22 05:13 09/12/22 08:21 Microbiology: Microbiology 09/14/22 08:51 Urine Catheter - Catheter Urine Culture - Final Culture exhibits no growth. 09/15/22 06:00 Nasal Secretion SARS-CoV-2 Antigen (Rapid) - Final 09/13/22 05:49 Nasal Secretion SARS-CoV-2 Antigen (Rapid) - Final D/C Instructions Discharge Diet: No restrictions Discharge Activity: Return to Normal Activity, May Shower and Use Walker Weight Bearing Status: Weight bearing as tolerated Call your doctor if you observe: Fever of 101 or Higher, Inability to urinate, Inability to have a bowel movement, Shortness of breath, Dizziness, Fainting spells, Swelling in the ankles, Chest pain and Uncontrolled pain Additional Instructions: Discharge home alone 09/19/2022, Home Health Care PT/OT/ST/GRACE. Meaningful Use Info Meaningful Use Diagnoses (Choose all that apply): None applicable Discharge Plan Admission Admit Date/Time: 09/11/22 19:30 Primary Reason for Your Visit: Debility. Attending Provider: Bernardino Min Chi Primary Care Provider: Rosmery Grady Instructions Additional Instructions / Restrictions: Discharge home alone 09/19/2022, Home Health Care PT/OT/ST/GRACE. Discharge Orders/Prescriptions Prescriptions: New Xarelto 15 mg Tablet 15 mg PO BIDCM 14 Days Qty: 28 0RF Xarelto 20 mg Tablet 20 mg PO DINNER 30 Days Qty: 30 0RF Continued atorvastatin 10 MG tablet 40 mg PO QHS ondansetron HCl 8 MG tablet 8 mg PO Q8H PRN PRN (Reason: Nausea) Label Comments: TAKE 1 TABLET BY MOUTH EVERY 8 HOURS NEEDED FOR NAUSEA/VOMITING. sertraline 100 MG tablet 125 mg PO DAILY Label Comments: TAKE 1 TABLET BY MOUTH EVERY DAY cholecalciferol (vitamin D3) [Vitamin D3] 1,000 UNIT tablet 1,000 unit PO DAILY multivitamin with folic acid [Thera] 1 TABLET tablet 1 tab PO DAILY potassium chloride 10 mEq tablet extended release 10 meq PO DAILY levothyroxine 25 mcg tablet 25 mcg PO DAILY methenamine hippurate 1 gram tablet 1 g PO BID Label Comments: TAKE 1 TABLET BY MOUTH TWICE A DAY WITH MEALS brimonidine 0.2 % drops 2 drp RIGHT EYE TID Label Comments: INSTILL 1 DROP INTO RIGHT EYE 3 TIMES A DAY mirtazapine 15 mg tablet 15 mg PO QHS Label Comments: 1 tablet by mouth once a day polyethylene glycol 3350 [Miralax] 17 gram/dose Powder 17 g PO DAILY acetaminophen 500 mg Tablet 1,000 mg PO Q6H PRN PRN (Reason: Pain Score 1-10) Qty: 0 0RF latanoprost 0.005 % drops 1 drp EACH EYE HS Discontinued sennosides-docusate sodium [Stool Softener-Stimulant Laxat] 8.6-50 mg tablet 2 tab PO BID Rx Instructions: Hold for diarrhea or bowel movement more than 3 times a day menthol-zinc oxide [Calmoseptine] 0.44-20.6 % ointment 1 applic topical BID@1000,2200 Protocol: *Topical Application Instructions APPLICATION INSTRUCTIONS: bilat buttocks Xarelto 15 mg tablet 15 mg PO BIDCM Referrals / Follow Up: Ethan Schaefer MD [Med Staff - Active Staff] - Rosmery Grady MD [Primary Care Provider] - ([address] [facility]. [place] [phone]) Disposition Disposition (needs filled in before D/C Order can be placed): Home Health Service
[2022-09-16] MEDS: Mirtazapine 15 MG Tablet PO (21:15)
[2022-09-16] MEDS: Atorvastatin Calcium 40 MG Tablet PO (21:15)
[2022-09-16] MEDS: Latanoprost 0.005% 1 Bottle 1 DRP EACH EYE (21:16)
[2022-09-16 21:21] VITALS: PULSE 74; RESP 16; O2SAT 94
[2022-09-17 05:34] LABS: Hematocrit 27.6 % (37-47); Hemoglobin 8.1 g/dL (12.0-15.0)
[2022-09-17] MEDS: BRIMONIDINE 0.2% 5ML BOTTLE 2 DRP RIGHT EYE ×3 (05:51→20:56)
[2022-09-17] MEDS: Polyethylene Glycol 3350 17 GM PACKET PO (05:51)
[2022-09-17] MEDS: Ensure Plus High Protein 120 ML LIQUID PO ×2 (05:51→11:31)
[2022-09-17] MEDS: Cholecalciferol (VIT D3) 25 MCG TABLET (1,000 UNITS) PO (05:52)
[2022-09-17] MEDS: Sertraline 100 MG Tablet 125 MG PO (05:52)
[2022-09-17] MEDS: Methenamine Hippurate 1 GM Tablet PO ×2 (05:52→18:03)
[2022-09-17] MEDS: Senna/Docusate Sodium 1 Tablet 2 TABLET PO (05:52)
[2022-09-17] MEDS: Levothyroxine 25 MCG TABLET PO (05:52)
[2022-09-17] MEDS: 0.9% Saline Lock 10 ML Syringe IV (06:03)
[2022-09-17] MEDS: Multivitamins,Therapeutic Tablet 1 TABLET PO (09:14)
[2022-09-17] MEDS: Menthol/Lanolin/Calamine/Znox 113 GM Tube 1 APPLIC TOPICAL ×2 (09:14→20:58)
[2022-09-17] MEDS: Potassium Chloride Oral Tablet 10 MEQ PO (09:14)
[2022-09-17] MEDS: Rivaroxaban 15 MG Tablet PO ×2 (09:14→18:03)
--- NOTE | 2022-09-17 11:48 | CASEMGMT ---
Social Work BIMS () and PHQ-9 (11/23) completed for MDS assessment. Dipika Hall MSW SERVICE CENTER MANAGER
[2022-09-17 14:00] VITALS: BP 127/68; PULSE 95; RESP 16; TEMP 37.3; O2SAT 92
--- NOTE | 2022-09-17 14:09 | MDS.RN ---
Pain assessment for [facility]A 09/18/22.
[2022-09-17] MEDS: Acetaminophen 500 MG Tablet 1000 MG PO (20:53)
[2022-09-17] MEDS: Mirtazapine 15 MG Tablet PO (20:56)
[2022-09-17] MEDS: Atorvastatin Calcium 40 MG Tablet PO (20:56)
[2022-09-17] MEDS: Latanoprost 0.005% 1 Bottle 1 DRP EACH EYE (20:57)
[2022-09-18] MEDS: Polyethylene Glycol 3350 17 GM PACKET PO (05:20)
[2022-09-18] MEDS: Methenamine Hippurate 1 GM Tablet PO ×2 (05:20→17:23)
[2022-09-18] MEDS: Senna/Docusate Sodium 1 Tablet 2 TABLET PO ×2 (05:20→17:23)
[2022-09-18] MEDS: Cholecalciferol (VIT D3) 25 MCG TABLET (1,000 UNITS) PO (05:21)
[2022-09-18] MEDS: Sertraline 100 MG Tablet 125 MG PO (05:21)
[2022-09-18] MEDS: Levothyroxine 25 MCG TABLET PO (05:21)
[2022-09-18] MEDS: BRIMONIDINE 0.2% 5ML BOTTLE 2 DRP RIGHT EYE ×3 (05:22→20:03)
[2022-09-18] MEDS: Rivaroxaban 15 MG Tablet PO ×2 (08:12→17:23)
[2022-09-18] MEDS: Potassium Chloride Oral Tablet 10 MEQ PO (08:12)
[2022-09-18] MEDS: Multivitamins,Therapeutic Tablet 1 TABLET PO (08:12)
--- NOTE | 2022-09-18 09:15 | NURSING ---
Motor Vehicle Assembly Supervisor Note; MDS Complete
[2022-09-18] MEDS: Ensure Plus High Protein 120 ML LIQUID PO ×3 (11:25→19:59)
[2022-09-18 14:00] VITALS: BP 141/66; PULSE 96; RESP 16; TEMP 36.7; O2SAT 94
[2022-09-18] MEDS: Latanoprost 0.005% 1 Bottle 1 DRP EACH EYE (19:59)
[2022-09-18] MEDS: Mirtazapine 15 MG Tablet PO (20:03)
[2022-09-18] MEDS: Atorvastatin Calcium 40 MG Tablet PO (20:03)
[2022-09-18 20:08] VITALS: PULSE 85; RESP 16; O2SAT 93
[2022-09-19] MEDS: BRIMONIDINE 0.2% 5ML BOTTLE 2 DRP RIGHT EYE (05:19)
[2022-09-19] MEDS: Levothyroxine 25 MCG TABLET PO (05:20)
[2022-09-19] MEDS: Sertraline 100 MG Tablet 125 MG PO (05:20)
[2022-09-19] MEDS: Methenamine Hippurate 1 GM Tablet PO (05:20)
[2022-09-19] MEDS: Cholecalciferol (VIT D3) 25 MCG TABLET (1,000 UNITS) PO (05:21)
[2022-09-19 07:21] LABS: Absolute Neutrophil Count 6.3 X10^3/uL (2.0-7.7); Basophil# 0.06 X10^3/uL; Basophil% 0.7 % (0-1); Eosinophil# 0.32 X10^3/uL; Eosinophils% 3.5 % (0-5); Hematocrit 27.7 % (37-47); Hemoglobin 8.2 g/dL (12.0-15.0); Lymphocyte % 15.3 % (19-41); Mean Corp Hgb Conc 29.6 g/dL (32-36); Mean Corpuscular Hgb 27.2 pg (27.0-32.0); Mean Platelet Vol. 8.8 fl (6.2-12.0); Monocyte# 0.77 X10^3/uL; Monocyte% 8.4 % (0-10); NRBC Flagged by Analyzer 0 % (0-5); Neutrophil # 6.25 X10^3/uL (2.7-7.7); Neutrophil % 68.3 % (47-70); Platelet Count 449 K/mm3 (150-450); RBC Distribution Width CV 14.9 % (11.6-14.6); RBC Distribution Width SD 49.5 fl (35.1-43.9); Red Blood Count 3.01 M/mm3 (4.2-5.4); White Blood Count 9.2 K/mm3 (4.4-11.0)
[2022-09-19 07:42] LABS: Anion Gap 5 (5-15); BUN 19 mg/dL (7-18); BUN/Creat Ratio 25.9 RATIO (10-20); Calcium,Total 8.7 mg/dL (8.5-10.1); Chloride 107 mmol/L (98-107); Creatinine, Serum 0.73 mg/dL (0.55-1.02); EST Glomerular Filtration Rate 82 mL/min (>60); Est Glom Filt Rate - Afr Amer 100 mL/min (>60); Estimated Creatinine Clearance 35.45 ml/min; Glucose 111 mg/dL (74-106); Potassium 3.9 mmol/L (3.5-5.1); Sodium Level 139 mmol/L (136-145)
[2022-09-19] MEDS: Multivitamins,Therapeutic Tablet 1 TABLET PO (07:54)
[2022-09-19] MEDS: Rivaroxaban 15 MG Tablet PO (07:54)
[2022-09-19] MEDS: Potassium Chloride Oral Tablet 10 MEQ PO (07:54)
[2022-09-19] MEDS: Menthol/Lanolin/Calamine/Znox 113 GM Tube 1 APPLIC TOPICAL (10:57)
[2022-09-19] MEDS: Ensure Plus High Protein 120 ML LIQUID PO (10:58)
[2022-09-19 11:00] VITALS: BP 114/58; PULSE 76; RESP 16; TEMP 36.6; O2SAT 94
--- NOTE | 2022-09-24 12:11 | MDS.RN ---
Information for the mds was obtained from review of the clinical record, interview of resident, staff, and direct observation of resident's care.
== END 2022-09-19 12:15 | disposition home health service (06) | DRG 949 ==
PROVIDERS: Admitting Provider Family Medicine Geriatric Medicine; PCP Internal Medicine; Visit Provider Family Medicine Geriatric Medicine
DX: Z48.812 Encounter for surgical aftercare following surgery on the circulatory system (principal); I82.401 Acute embolism and thrombosis of unspecified deep veins of right lower extremity; N39.0 Urinary tract infection, site not specified; G35 Multiple sclerosis; E03.9 Hypothyroidism, unspecified; E55.9 Vitamin D deficiency, unspecified; E87.6 Hypokalemia; E78.5 Hyperlipidemia, unspecified; H40.9 Unspecified glaucoma; Z79.899 Other long term (current) drug therapy; Z79.890 Hormone replacement therapy; Z79.01 Long term (current) use of anticoagulants; Z87.440 Personal history of urinary (tract) infections; F32.A Depression, unspecified
CPT/HCPCS: 36415; 80048; 81001; 85014; 85018; 85025; 87086; 87426; 87811; 92507; 92523; 97110; 97116; 97162; 97165; 97530; 97535; 97802; A4216

== ENCOUNTER → 2022-09-28 | Outpatient (CLI) | payer MEDICARE, SELFPAY ==
[2022-09-28 17:16] LABS: Absolute Lymphocyte Count 1.41 X10^3/uL (0.83-4.51); Absolute Neutrophil Count 6.2 X10^3/uL (2.0-7.7); Basophil# 0.06 X10^3/uL; Basophil% 0.7 % (0-1); Eosinophils% 2.3 % (0-5); Hematocrit 35.1 % (37-47); Hemoglobin 10.2 g/dL (12.0-15.0); Lymphocyte # 1.41 X10^3/ul (0.83-4.51); Lymphocyte % 16.1 % (19-41); Mean Corp Hgb Conc 29.1 g/dL (32-36); Mean Corpuscular Hgb 26.8 pg (27.0-32.0); Mean Corpuscular Volume 92.4 fL (81-99); Mean Platelet Vol. 9.4 fl (6.2-12.0); Monocyte# 0.71 X10^3/uL; Monocyte% 8.1 % (0-10); NRBC Flagged by Analyzer 0 % (0-5); Neutrophil # 6.21 X10^3/uL (2.7-7.7); Neutrophil % 71.1 % (47-70); Platelet Count 520 K/mm3 (150-450); RBC Distribution Width CV 16.1 % (11.6-14.6); RBC Distribution Width SD 52.6 fl (35.1-43.9); White Blood Count 8.7 K/mm3 (4.4-11.0)
[2022-09-28 18:07] LABS: ALB/GLOB Ratio 0.8 RATIO (0.9-2.4); AST(SGOT) 26 U/L (15-37); Alanine Aminotransfer ALT/SGPT 19 U/L (13-56); Albumin, Serum 3.4 g/dL (3.2-5.0); Alkaline Phosphatase 126 U/L (45-117); Anion Gap 9 (5-15); BUN 18 mg/dL (7-18); BUN/Creat Ratio 23.4 RATIO (10-20); Calcium,Total 9.4 mg/dL (8.5-10.1); Chloride 107 mmol/L (98-107); Creatinine, Serum 0.77 mg/dL (0.55-1.02); EST Glomerular Filtration Rate 78 mL/min (>60); Est Glom Filt Rate - Afr Amer 94 mL/min (>60); Globulin 4.4 g/dL (2.2-4.2); Glucose 93 mg/dL (74-106); Protein, Total 7.8 g/dL (6.4-8.2); Sodium Level 142 mmol/L (136-145)
[2022-09-28 18:35] LABS: Hepatitis C Antibody Non-Reactive (Nonreactive); Vitamin D,25 Hydroxy 58.2 ng/mL
== END | disposition home or self-care (01) ==
LOC: POLAB3 16:18
PROVIDERS: PCP Internal Medicine; Visit Provider Family Medicine Geriatric Medicine
DX: R53.1 Weakness (principal); E55.9 Vitamin D deficiency, unspecified; Z13.89 Encounter for screening for other disorder
CPT/HCPCS: 36415; 80053; 82306; 84443; 85025; 86803

== ENCOUNTER → 2022-09-30 | Outpatient (CLI) | payer MEDICARE, SELFPAY ==
--- NOTE | 2022-09-30 08:12 | VDLE_ITS ---
Reason For Study: LOCALIZED EDEMA RIGHT GSV is normal. CFV, FV, POPV ARE NONCOMPRESSIBLE WITH NO FLOW NOTED IN VESSELS. T/P TRUNK, PTV, PERV ARE PARTIALLY COMPRESSIBLE WTIH SOME FLOW NOTED IN VESSELS. Procedure This is a venous duplex using B-mode, color flow and spectral Doppler. Exam performed in department. A preliminary report was called and/or faxed to Dr. Min's office notified and PT is to go directly to his offic. VL/Venous Duplex US, Unilateral Interpretation Summary Acute deep vein thrombosis is noted in the right common femoral vein, right fem oral vein, right popliteal vein, right tibio-peroneal trunk vein, right posterior tibial vein, r ight peroneal vein Ordering Physician: Bernardino Min Chi Referring Physician: Bernardino Min Chi Performed By: Rosa Castillo, RDCS, RVT
== END | disposition home or self-care (01) ==
LOC: CVS 08:04
PROVIDERS: PCP Family Medicine Geriatric Medicine; Visit Provider Family Medicine Geriatric Medicine
DX: R60.0 Localized edema (principal)
CPT/HCPCS: 93971

== ENCOUNTER 2022-10-18 15:52 | Inpatient (IN) | payer MEDICARE, SELFPAY ==
[2022-10-18 15:10] VITALS: BP 120/73; PULSE 91; RESP 16; TEMP 36.9; O2SAT 96; BMI 22.8
[2022-10-18 15:52] VITALS: PULSE 90
--- NOTE | 2022-10-18 16:20 | HP.PCM_ITS ---
HPI - General General Date of Admission: 10/18/22 Date of Service: 10/18/22 Chief Complaint: DVT HPI Narrative LAKESHIA OSEGUERA, is a 76 F who is admitted for heparin bridge from [facility] in preparation for thrombectomy tomorrow at [address] Schaefer. IVC filter had been placed in 2019 secondary to a PE in the context of uterine malignancy and a subdural hematoma the month previous. Patient has a history of endometrial cancer, appears diagnosed in 2014. She has had [facility]SCAR BSO, chemo, and most recently in the last 6 months radiation for retroperitoneal/aortocaval ling recurrences, she follows with [facility] oncology outpatient. 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 She also has a history of MS which seems to have caused some balance issues in the past, but when not in a flair reportedly does not affect her mobility too much. She also has a history of recurrent UTIs associated with some confusion/delirium. She denies any issues with falls/head trauma/bleeding since 2019. She had prior IVC/iliac thrombectomy by Dr. Schaefer on 09/08/22 and 09/10/22. She was started on Xarelto after these procedures. 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 After thrombectomy in August, patient had good resolution of symptoms and improved mobility until recurrence of RLE DVT. Today, she reports continued increase in swelling of RLE, aching discomfort, and again more difficulty with mobility. She complains only of a mild headache. She denies SOB, CP, F/C, N/V, hematuria, blood in the stool. [facility] Medical History Brain bleed Glaucoma Multiple sclerosis Presence of IVC filter Pulmonary embolism Pulmonary nodule Uterine cancer Home Medications cholecalciferol (vitamin D3) 25 mcg (1,000 unit) tablet (Vitamin D3) 1,000 unit PO DAILY supplement 09/08/18 [History Last Taken 10/17/22] multivitamin with folic acid 400 mcg tablet (Thera) 1 tab PO DAILY supplement 09/08/18 [History Last Taken 10/17/22] sertraline 100 mg tablet 125 mg PO DAILY mental health 09/08/18 [History Last Taken 10/18/22] brimonidine 0.2 % eye drops 2 drp RIGHT EYE TID glaucoma 08/31/22 [History Last Taken 08/30/22] levothyroxine 25 mcg tablet 25 mcg PO DAILY thyroid 08/31/22 [History Last Taken 08/31/22] methenamine hippurate 1 gram tablet 1 g PO BID Bladder 08/31/22 [History Last Taken 10/18/22] mirtazapine 15 mg tablet 15 mg PO QHS sleep 08/31/22 [History Last Taken 10/17/22] polyethylene glycol 3350 17 gram/dose oral powder (Miralax) 17 g PO DAILY constipation 08/31/22 [History Last Taken 10/18/22] potassium chloride 10 mEq tablet,extended release 10 meq PO BID supplement 08/31/22 [History Last Taken 10/18/22] latanoprost 0.005 % eye drops 1 drp EACH EYE Eye health 09/11/22 [History Last Taken 10/17/22] rivaroxaban 20 mg tablet (Xarelto) 20 mg PO DINNER 30 days #30 tabs 09/16/22 [Rx Last Taken 10/17/22] sertraline 25 mg tablet 125 mg PO DAILY 10/18/22 [History Last Taken 10/18/22] Allergy/AdvReac Type Severity Reaction Status Date / Time codeine Allergy Hives Verified 10/01/22 14:45 methylprednisolone Allergy Hives Verified 10/01/22 14:45 Sulfa (Sulfonamide Allergy Hives Verified 10/01/22 14:45 Antibiotics) erythromycin base AdvReac Upset Verified 10/01/22 14:45 Stomach Surgical History H/O: hysterectomy History of section Social History household members: none housing: house Smoking Status: Never smoker alcohol intake: never substance use type: does not use ROS Constitutional Constitutional: Reports fatigue; Denies chills, fever(s), weakness or weight gain ENT HEENT: Denies headache(s), nasal congestion or nasal discharge Cardiovascular Cardiovascular: Denies chest pain or palpitations Respiratory/Chest Respiratory/Chest: Denies cough, excessive phlegm production or shortness of breath with exertion Gastrointestinal Gastrointestinal: Denies abdominal pain, nausea or vomiting Genitourinary Genitourinary: Denies dysuria Musculoskeletal Musculoskeletal: Denies joint pain or joint swelling Integumentary Integumentary: Denies rash or wounds Neurologic Neurologic: Denies focal weakness, numbness or tingling Psychiatric Psychiatric: Denies anxiety, auditory hallucinations, depression, homicidal ideation or suicidal ideation Vital Signs Vital Signs Vital Signs: 10/18/22 15:10 10/18/22 15:52 Temperature 98.5 F Temperature Source Oral Pulse Rate 91 90 Respiratory Rate 16 Blood Pressure 120/73 Blood Pressure Mean 88 Blood Pressure Source Monitor Blood Pressure Position Semi-Fowlers Blood Pressure Location Left Arm Pulse Ox 96 Oxygen Delivery Method Room Air Weight Weight: 116 lb 13.52 oz Body Mass Index (BMI) 22.8 Physical Exam Const alert, oriented x3 and no apparent distress General Appearance: cooperative HEENT normocephalic and head/scalp atraumatic Nose: external nose normal External Ear: external ears normal Eyes General Eye: normal appearance of both eyes Neck General: normal visual inspection and trachea midline Carotids: Negative for bruit Resp normal respiratory effort, normal air movement, no use of accessory muscles and clear to auscultation bilaterally Effort and Inspection: able to speak in complete sentences and symmetric chest movement; Negative for labored, stridor or audible wheezes Cardio regular rate, regular rhythm and peripheral pulses 2+ throughout Extremity General Extremity: edema Peripheral Pulses: Yes brachial pulses present, radial pulses present, ulnar pulses present, posterior tibial pulses present and dorsalis pedis pulses present Skin no rashes or lesions noted and no wounds General Skin Exam: Negative for ecchymosis, erythema, mottling, petechiae, purpura or pallor Neuro oriented x3, CN's II-XII intact bilaterally, moves all extremities, no focal motor deficits and no sensory deficits noted Speech: speech normal Psych mental status grossly normal, cooperative, affect normal, speech normal and activity/motor behavior normal Appearance: appropriate Attitude: calm and engaged Activity / Motor Behavior: appropriate eye contact Speech: normal speech Attention / Concentration: attention grossly intact Memory / Cognition: memory grossly intact Assessment & Plan Assessment/Plan (1) DVT (deep venous thrombosis): PLAN: Plan is to perform thrombectomy and stent across IVC filter to address recurrent DVT. To bridge from Xarelto will start full dose heparin drip per protocol. 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 Will draw morning labs for monitoring to include hgb and aPTT every 6 hours per protocol for heparin dosing. NPO after midnight for procedure at 1100 tomorrow. Discussed procedure with patient, addressed all questions and concerns, she is agreeable to proceed with procedure tomorrow.
[2022-10-18] MEDS: Acetaminophen 325 MG Tablet 650 MG PO (16:50)
[2022-10-18] MEDS: Potassium Chloride Oral Tablet 10 MEQ PO (17:04)
[2022-10-18 17:11] LABS: Hematocrit 35.3 % (37-47); Hemoglobin 10.4 g/dL (12.0-15.0); Mean Corp Hgb Conc 29.5 g/dL (32-36); Mean Corpuscular Volume 91.7 fL (81-99); Mean Platelet Vol. 9.6 fl (6.2-12.0); Platelet Count 400 K/mm3 (150-450); RBC Distribution Width CV 15.9 % (11.6-14.6); RBC Distribution Width SD 53.7 fl (35.1-43.9); Red Blood Count 3.85 M/mm3 (4.2-5.4); White Blood Count 7.1 K/mm3 (4.4-11.0)
[2022-10-18 17:27] LABS: Anion Gap 8 (5-15); BUN 22 mg/dL (7-18); BUN/Creat Ratio 22.8 RATIO (10-20); Calcium,Total 8.7 mg/dL (8.5-10.1); Chloride 106 mmol/L (98-107); Creatinine, Serum 0.96 mg/dL (0.55-1.02); EST Glomerular Filtration Rate 60 mL/min (>60); Est Glom Filt Rate - Afr Amer 73 mL/min (>60); Estimated Creatinine Clearance 36.93 ml/min; Glucose 128 mg/dL (74-106); Potassium 3.7 mmol/L (3.5-5.1); Sodium Level 141 mmol/L (136-145)
[2022-10-18 17:41] LABS: Partial Thromboplast Time > 200.0 Seconds (24.1-36.2)
[2022-10-18] MEDS: 0.9% Saline Lock 10 ML Syringe IV ×2 (17:49→19:03)
[2022-10-18 18:45] LABS: International Normalized Ratio 1.1; Prothrombin Time (Protime)PT. 13.8 SECONDS (11.7-14.9)
[2022-10-18 18:46] LABS: Partial Thromboplast Time 30.4 Seconds (24.1-36.2)
[2022-10-18] MEDS: HEPARIN/D5w 25,000 UNITS 25,000 UNITS/250 ML IV.SOLN. 8 UNITS CONT INF (18:59)
[2022-10-18] MEDS: BRIMONIDINE 0.2% 5ML BOTTLE 2 DRP RIGHT EYE (20:12)
[2022-10-18] MEDS: Latanoprost 0.005% 1 Bottle 1 DRP EACH EYE (20:12)
[2022-10-18] MEDS: Mirtazapine 15 MG Tablet PO (20:14)
[2022-10-18] MEDS: Methenamine Hippurate 1 GM Tablet PO (20:14)
[2022-10-18 21:10] VITALS: BP 136/82; PULSE 69; RESP 16; TEMP 36.6; O2SAT 97
[2022-10-19] VITALS (23 sets, daily range): BP systolic 115–186; BP diastolic 60–111; PULSE 70–96; RESP 18–20; TEMP 36.5–37.8; O2SAT 90–100; BMI 22.8
[2022-10-19 01:28] LABS: Partial Thromboplast Time 48.5 Seconds (24.1-36.2)
[2022-10-19] MEDS: Heparin Injection (Vial) 5,000 UNIT/ML VIAL IV (02:42)
[2022-10-19 05:52] LABS: Absolute Lymphocyte Count 1.72 X10^3/uL (0.83-4.51); Absolute Neutrophil Count 3.4 X10^3/uL (2.0-7.7); Basophil# 0.07 X10^3/uL; Basophil% 1.1 % (0-1); Eosinophil# 0.36 X10^3/uL; Eosinophils% 5.7 % (0-5); Hematocrit 38.6 % (37-47); Hemoglobin 10.7 g/dL (12.0-15.0); Lymphocyte # 1.72 X10^3/ul (0.83-4.51); Lymphocyte % 27.3 % (19-41); Mean Corp Hgb Conc 27.7 g/dL (32-36); Mean Corpuscular Volume 97.2 fL (81-99); Monocyte# 0.66 X10^3/uL; Monocyte% 10.5 % (0-10); NRBC Flagged by Analyzer 0 % (0-5); Neutrophil # 3.43 X10^3/uL (2.7-7.7); Neutrophil % 54.3 % (47-70); Platelet Count 295 K/mm3 (150-450); RBC Distribution Width CV 16.1 % (11.6-14.6); RBC Distribution Width SD 57.7 fl (35.1-43.9); Red Blood Count 3.97 M/mm3 (4.2-5.4); White Blood Count 6.3 K/mm3 (4.4-11.0)
[2022-10-19] MEDS: Levothyroxine 25 MCG TABLET PO (05:52)
[2022-10-19] MEDS: BRIMONIDINE 0.2% 5ML BOTTLE 2 DRP RIGHT EYE ×3 (05:52→21:58)
--- NOTE | 2022-10-19 05:55 | EKG12_ITS ---
Test Reason : Blood Pressure : / mmHG Vent. Rate : 079 BPM Atrial Rate : 079 BPM P-R Int : 168 ms QRS Dur : 066 ms QT Int : 384 ms P-R-T Axes : 055 -04 048 degrees QTc Int : 440 ms Sinus rhythm with marked sinus arrhythmia Anterior infarct , age undetermined Abnormal ECG Confirmed by MIKE SAN, HAI ([id number]), social media editor FABIAN VIERA ([id number]) on 10/20/2022 11:05:52 AM Referred By: JESSICA Confirmed By:HAI MCKEON MD
[2022-10-19 09:29] LABS: Partial Thromboplast Time 65.6 Seconds (24.1-36.2)
--- NOTE | 2022-10-19 14:04 | CASEMGMT ---
RN CM attempted to complete assessment at this time. Patient is currently off the floor for procedure. CM will attempt assessment at later time.
[2022-10-19] MEDS: hydrALAZINE 20 MG/ML Vial 10 MG IV (15:45)
--- NOTE | 2022-10-19 15:51 | SUR.PHASEI ---
pt came from [facility] with elevated BP 180s/90s, per Dr. Schaefer give hydralazine 10 mg IV x1, if this doesn't dec BP give labetalol 10 mg IV x2. pt ok to have clear liquids. lay flat x2 hrs.
[2022-10-19] MEDS: Labetalol (Prefilled) 20 MG/4 ML 10 MG IV (16:10)
--- NOTE | 2022-10-19 16:16 | PCM.OPRPT ---
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 She previously underwent mechanical thrombectomy of right lower extremity, bilateral iliac veins, and the inferior vena cava. At the time she also underwent balloon angioplasty of the IVC and the right iliac vein, both of which have significant scarring from previous radiation. Initially she had done well but she redeveloped right lower extremity DVT so she presents now for repeat efforts to recanalize her venous system. Description of procedure: Upon obtaining informed consent and verification correct patient procedure site patient was taken to [facility] where she was placed under general anesthesia. She was then positioned prepped and draped in usual sterile fashion a timeout was performed. Ultrasound guidance used to access the right femoral vein just below the common femoral confluence with micropuncture needle and wire. This was then exchanged out for micropuncture sheath through which a J-wire was advanced. The micropuncture sheath was then exchanged out for a short 5 [place] sheath but there is a glide advantage wire advanced into the inferior vena cava. Ultrasound guidance the left femoral vein was accessed in retrograde fashion just below the common femoral confluence. This micropuncture needle was then exchanged over the micropuncture sheath through which a J-wire was advanced and the micropuncture sheath exchanged out for a short 5 [place] sheath. Through the 5 [place] sheath a angled stiff Glidewire was advanced into the vena cava. Patient was then heparinized and heparin dosing adjusted with serial ACT measurements. Both the 5 [place] sheath were then exchanged out for 10 [place] sheaths and the intravascular sound probe was then advanced via the right femoral access sheath. A recorded pullback of the inferior vena cava, right common iliac vein, right external iliac vein, and right common femoral vein was performed. This revealed subacute chronic appearing thrombus as well as a small caliber common and external iliac vein from previous radiation injury. Catheter was then withdrawn and advanced via the left femoral access sheath and again recorded pullback performed of the vena cava and the left iliac and common femoral vein system. This revealed her subacute chronic appearing thrombus, but also revealed sclerotic and/or compressed distal inferior vena cava. The AngioJet pharmacomechanical thrombectomy device was brought in field and prep for toll service observer instructions. It was then advanced via the to the femoral sheaths and power pulse infusion mode with a total of 20 mg of tPA infused. This was allowed to sit for 30 minutes after which the device was readvanced through to the femoral sheaths in thrombectomy mode. Repeat venogram and intravascular sound of the treated vessels revealed improvement in the flow lumen however there is still significant amount of chronic thrombus of particular in the left iliac vein. The right iliac vein actually appeared to be relatively free of thrombus but was very small in caliber, approximately 1/3-1/2 of what. Vessel size would be. We then reengaged the AngioJet in the left through each of the common and external iliac veins. Neo venogram revealed significant improvement in contrast transit across the neck vessels but there was still significant filling of collaterals. Appropriate final step of treatment would be stenting across the inferior vena cava filter as well as the bilateral iliac vessels down to normal caliber vessel in the common femoral vein. Given the atypical size of the vessels particularly the right iliac system there were not stents available that were appropriate sized. Further nothing further would be performed today so the catheter and sheath were withdrawn and manual pressure held, followed by a silk stitch in the skin. Patient then awakened anesthesia taken the recovery room dissipated return to the PCU. Radiographic interpretation: Inferior vena cava with diffuse chronic thrombus and wall thickening from combination of thrombus and radiation injury. Significantly improved after thrombectomy and angioplasty. Right common and external iliac veins initially with subacute appearing thrombus, small caliber throughout. After thrombectomy and angioplasty resolution of thrombus but continued extremely small caliber vessel. Right common femoral vein with subacute to chronic thrombus which was not resolved postintervention, but was nonocclusive. Left common and external iliac veins with subacute thrombus, normal caliber. Continued chronic thrombus with resolution of acute thrombus after intervention. Left common femoral vein with nonocclusive thrombus remaining.
--- NOTE | 2022-10-19 16:55 | SUR.PHASEI ---
ARRIVES TO PACU FROM [facility] AT 1534, REPORT FROM MARIANA, LUNCHROOM MONITOR RN, RELATES HEMASTASIS ACHIEVED AT 1500, B/L GROIN DRESSING C/D/I, SITES & LOW ABDOMEN SOFT w/ NO S/S HEMATOMA, TO REMAIN FLAT FOR 2 HOURS POST-PROCEDURE. A-LINE IN PLACE LEFT WRIST WITH GOOD WAVEFORM AND ZEROED PER PROTOCOL. PER EZEQUIEL COLES, BP WAS ELEVATED DURING CASE, 180/100'S ON PACU ARRIVAL BOTH NIBP & A-LINE. DR LOPEZ NOTIFIED WHO ORDERED IV HYDRALAZINE & LABETALOL, BOTH ADMINISTERED WITH IMPROVEMENT IN BP. PATIENT NEUROLOGICALLY INTACT. DR LOPEZ AGAIN UPDATED, ORDERED TO D/C A-LINE AND TRANSFER TO PCU. DONG WAS D/C AT 1655, MONITORED FOR ANY ACTIVE BLEEDING, NONE NOTED NOR ANY HEMATOMA TO GROIN B/L UPON TXR TO PCU. PATIENT CONTINUES TO DENY ANY PAIN OR NAUSEA, ONLY RELATING THIRST. REPORT CALLED TO ROBERT HODGSON RN, AND ALL INFO RELATED.
[2022-10-19 18:08] LABS: Partial Thromboplast Time > 200.0 Seconds (24.1-36.2)
[2022-10-19] MEDS: Polyethylene Glycol 3350 17 GM PACKET PO (18:11)
[2022-10-19] MEDS: 0.9% Saline Lock 10 ML Syringe IV ×2 (20:27→21:59)
[2022-10-19] MEDS: Mirtazapine 15 MG Tablet PO (21:50)
[2022-10-19] MEDS: MELATONIN 3 MG TABLET PO (21:54)
[2022-10-19] MEDS: Sertraline 50 MG Tablet 125 MG PO (21:55)
[2022-10-19] MEDS: Potassium Chloride Oral Tablet 10 MEQ PO (21:57)
[2022-10-19] MEDS: Latanoprost 0.005% 1 Bottle 1 DRP EACH EYE (21:58)
[2022-10-19] MEDS: Methenamine Hippurate 1 GM Tablet PO (21:59)
[2022-10-20] VITALS (15 sets, daily range): BP systolic 88–132; BP diastolic 45–70; PULSE 76–167; RESP 16–91; TEMP 37–38; O2SAT 91–98
[2022-10-20 02:53] LABS: Partial Thromboplast Time 48.5 Seconds (24.1-36.2)
[2022-10-20] MEDS: Heparin Injection (Vial) 5,000 UNIT/ML VIAL IV ×2 (03:25→10:35)
[2022-10-20 05:00] LABS: Hematocrit 32.7 % (37-47); Hemoglobin 9.8 g/dL (12.0-15.0); Mean Corpuscular Volume 90.1 fL (81-99); Mean Platelet Vol. 9.5 fl (6.2-12.0); Platelet Count 323 K/mm3 (150-450); Red Blood Count 3.63 M/mm3 (4.2-5.4); White Blood Count 8.7 K/mm3 (4.4-11.0)
[2022-10-20 05:22] LABS: Anion Gap 8 (5-15); BUN 21 mg/dL (7-18); Calcium,Total 8.7 mg/dL (8.5-10.1); Chloride 108 mmol/L (98-107); Creatinine, Serum 0.91 mg/dL (0.55-1.02); EST Glomerular Filtration Rate 64 mL/min (>60); Est Glom Filt Rate - Afr Amer 77 mL/min (>60); Estimated Creatinine Clearance 38.96 ml/min; Glucose 113 mg/dL (74-106); Potassium 3.6 mmol/L (3.5-5.1); Sodium Level 141 mmol/L (136-145)
[2022-10-20 05:25] LABS: International Normalized Ratio 1.1; Prothrombin Time (Protime)PT. 13.8 SECONDS (11.7-14.9)
[2022-10-20 05:27] LABS: Partial Thromboplast Time 61.5 Seconds (24.1-36.2)
[2022-10-20] MEDS: BRIMONIDINE 0.2% 5ML BOTTLE 2 DRP RIGHT EYE ×3 (05:32→22:12)
[2022-10-20] MEDS: HEPARIN/D5w 25,000 UNITS 25,000 UNITS/250 ML IV.SOLN. 7 UNITS CONT INF (05:32)
[2022-10-20] MEDS: Levothyroxine 25 MCG TABLET PO (05:32)
[2022-10-20] MEDS: Acetaminophen 325 MG Tablet 650 MG PO ×2 (05:43→14:19)
--- NOTE | 2022-10-20 07:50 | NURSING ---
pt fluid bolus dc'd and pt resting in bed. sbp>100 past 3 checks now. pt just ordered breakfast. no needs at this time.
[2022-10-20 09:16] LABS: ACT Activated Clotting Time 204 sec (74-137)
[2022-10-20 09:17] LABS: ACT Activated Clotting Time 209 sec (74-137)
[2022-10-20 09:18] LABS: ACT Activated Clotting Time 209 sec (74-137)
[2022-10-20 09:51] LABS: Partial Thromboplast Time 46.3 Seconds (24.1-36.2)
--- NOTE | 2022-10-20 10:25 | CASEMGMT ---
RN AMANDA Face to Face with patient for initial transition planning/care coordination assessment. RN CM introduced self and role at [facility]. Patient sitting in chair, alert and oriented. Patient willing to participate in assessment and is able to answer all questions appropriately. Care providers, pharmacy, and demographics verified. Patient wishes to discharge home with resumption of HHC with [facility]. Patient states she has no further needs or concerns at this time. CM to follow for discharge planning needs that may arise. PCP: [facility] Specialists: Annabel, oncologist; Rylie, radiologist; Evelia, vascular; Silvano, vascular; Mary, radiologist oncologist. Preferred Pharmacy: [facility] Insurance: [employer] Prescription Benefit: yes Living Will/HPOA: yes, son Min Kennedy LNOK: sons Living Arrangements: Patient lives alone in a single story condo with 1 step to enter. Patient is independent at home. Transportation: self, friend son DME/HHC: Patient has cane, walker rollator, and grab bars at home. Patient has been to TCU in the past. Patient is active with [facility], patient declined HHC list Disposition Plan: Patient to discharge home with resumption of HHC, family support, and follow-up plans in place. Winter DANIELS, RN, CM
[2022-10-20] MEDS: Potassium Chloride Oral Tablet 10 MEQ PO ×2 (10:45→17:28)
--- NOTE | 2022-10-20 10:57 | NURSING ---
pt coughing when attempted to take pill this am d/t inflammation still of throat post surgery. pt sitting upright and able to spit up pill forcefully eventually with student rn. rest of meds crushed as able and given with applesauce. will change k+ order when rounds so can take. family here visiting.
[2022-10-20] MEDS: Sertraline 50 MG Tablet 125 MG PO (10:58)
[2022-10-20] MEDS: Polyethylene Glycol 3350 17 GM PACKET PO (11:03)
[2022-10-20] MEDS: Methenamine Hippurate 1 GM Tablet PO ×2 (12:40→22:12)
[2022-10-20] MEDS: Rivaroxaban 20 MG Tablet PO (12:49)
--- NOTE | 2022-10-20 13:10 | PCM.PN.SRG ---
Subjective Subjective Patient is hoarse and with a sore throat secondary to anesthesia from her procedure yesterday. She has not yet been up to walk. Otherwise, she is doing well. No bleeding, swelling, hematoma at access site. No N/V, F/C, presyncope/syncope, SOB, CP, new/worsening pain in lower extremities. Objective Data Objective Data A&Ox3, NAD RRR Non-labored respirations Bilateral lower extremity swelling, right worse than left. Access site dressing C/D/I, no hematoma, bleeding, erythema. Vital Signs: Vital Signs Temp Pulse Resp BP Pulse Ox O2 Del Method O2 Flow Rate 99.2 F H 84 17 107/45 L 92 Room Air 1 10/20/22 07:55 10/20/22 07:55 10/20/22 07:55 10/20/22 07:55 10/20/22 08:00 10/20/22 08:00 10/20/22 03:30 Oxygen Flow Rate (L/min) 1 Oxygen Delivery Method Room Air Weight: 116 lb 13.52 oz Body Mass Index (BMI) 22.8 Intake & Output: Intake and Output for Last 24 Hours 10/18/22 10/19/22 10/20/22 23:59 23:59 23:59 Intake Total 380 / 380 301.93 / 301.93 583.53 / 583.53 Output Total 775 / 775 200 / 200 Balance 380 / 380 -473.07 / -473.07 383.53 / 383.53 Lab / Micro Data Result Diagrams: 10/20/22 04:31 10/20/22 04:31 Labs: Laboratory Results - last 24 hr 10/19/22 12:30: Activated Clotting Time 204 H 10/19/22 13:30: Activated Clotting Time 209 H 10/19/22 14:30: Activated Clotting Time 209 H 10/19/22 17:35: APTT > 200.0 H* 10/20/22 02:34: APTT 48.5 H 10/20/22 04:31: WBC 8.7, RBC 3.63 L, Hgb 9.8 L, Hct 32.7 L, MCV 90.1 D, MCH 27.0, MCHC 30.0 L D, RDW Std Deviation 53.0 H, RDW Coeff of Lauro 16.0 H, Plt Count 323, MPV 9.5 10/20/22 04:31: PT 13.8, INR 1.1, APTT 61.5 H 10/20/22 04:31: Sodium 141, Potassium 3.6, Chloride 108 H, Carbon Dioxide 25.0, Anion Gap 8, BUN 21 H, Creatinine 0.91, Estim Creat Clear Calc 38.96, Est GFR (MDRD) Af Amer 77, Est GFR (MDRD) Non-Af 64, BUN/Creatinine Ratio 23.0 H, Glucose 113 H, Calcium 8.7 10/20/22 09:35: APTT 46.3 H Assessment & Plan Assessment/Plan (1) DVT (deep venous thrombosis): PLAN: Hoarseness and sore throat most likely secondary to intubation for anesthesia. This should continue to improve with time. Access sites all with satisfactory appearance. Will d/c heparin and restart Xarelto. Will have patient ambulate this afternoon and if she does well and feels ready to go home will plan to d/c today.
--- NOTE | 2022-10-20 14:36 | CASEMGMT ---
Resumption order and updated clinicals sent to [facility] at this time. CM will continue to follow this patient and plan for a safe discharge.
--- NOTE | 2022-10-20 15:14 | NURSING ---
1400 hr 160's while pt just sitting up in chair. pt with no sob or cp. stated, i just have a mild dorado. no report of hx svt or afib or any hx of in h&p. pt back to bed and will call for ekg for rhythm check. once in bed however pt hr back down to 102 and sa now on monitor. temp up to 100.4. pt amb well and still hoping for dc this afternoon. vs good except for hr. dr. leone pa called and updated.
[2022-10-20] MEDS: Ensure Plus High Protein 120 ML LIQUID PO (17:40)
[2022-10-20] MEDS: Mirtazapine 15 MG Tablet PO (22:12)
[2022-10-20] MEDS: Latanoprost 0.005% 1 Bottle 1 DRP EACH EYE (22:13)
[2022-10-21] MEDS: Levothyroxine 25 MCG TABLET PO (05:18)
[2022-10-21] MEDS: BRIMONIDINE 0.2% 5ML BOTTLE 2 DRP RIGHT EYE (05:18)
[2022-10-21 05:28] VITALS: BP 131/68; BP 141/68; PULSE 92; RESP 16; TEMP 37.7; O2SAT 92
[2022-10-21 05:30] VITALS: PULSE 90; RESP 16
[2022-10-21 09:15] LABS: Absolute Lymphocyte Count 1.31 X10^3/uL (0.83-4.51); Absolute Neutrophil Count 5.9 X10^3/uL (2.0-7.7); Basophil# 0.04 X10^3/uL; Basophil% 0.5 % (0-1); Eosinophil# 0.38 X10^3/uL; Eosinophils% 4.5 % (0-5); Hemoglobin 9.3 g/dL (12.0-15.0); Lymphocyte # 1.31 X10^3/ul (0.83-4.51); Lymphocyte % 15.5 % (19-41); Mean Corpuscular Volume 89.9 fL (81-99); Mean Platelet Vol. 9.1 fl (6.2-12.0); Monocyte# 0.77 X10^3/uL; Monocyte% 9.1 % (0-10); NRBC Flagged by Analyzer 0 % (0-5); Neutrophil % 69.6 % (47-70); Platelet Count 276 K/mm3 (150-450); RBC Distribution Width CV 16.3 % (11.6-14.6); RBC Distribution Width SD 53.3 fl (35.1-43.9); Red Blood Count 3.45 M/mm3 (4.2-5.4); White Blood Count 8.5 K/mm3 (4.4-11.0)
--- NOTE | 2022-10-21 09:54 | DS.PCM_ITS ---
Providers Date of Admission: 10/18/22 Date of Discharge: 10/21/22 Primary Care Physician: Dr. Bernardino Min MD Reason For Visit: DVT Diagnosis Discharge Diagnosis (1) DVT (deep venous thrombosis): Status: Acute Code(s): I82.409 - Acute embolism and thrombosis of unspecified deep veins of unspecified lower extremity Medications at Discharge Home Medications cholecalciferol (vitamin D3) 25 mcg (1,000 unit) tablet (Vitamin D3) 1,000 unit PO DAILY supplement 09/08/18 multivitamin with folic acid 400 mcg tablet (Thera) 1 tab PO DAILY supplement 09/08/18 sertraline 100 mg tablet 125 mg PO DAILY mental health 09/08/18 brimonidine 0.2 % eye drops 2 drp RIGHT EYE TID glaucoma 08/31/22 levothyroxine 25 mcg tablet 25 mcg PO DAILY thyroid 08/31/22 methenamine hippurate 1 gram tablet 1 g PO BID Bladder 08/31/22 mirtazapine 15 mg tablet 15 mg PO QHS sleep 08/31/22 polyethylene glycol 3350 17 gram/dose oral powder (Miralax) 17 g PO DAILY constipation 08/31/22 potassium chloride 10 mEq tablet,extended release 10 meq PO BID supplement 08/31/22 latanoprost 0.005 % eye drops 1 drp EACH EYE Eye health 09/11/22 rivaroxaban 20 mg tablet (Xarelto) 20 mg PO DINNER 30 days #30 tabs 09/16/22 sertraline 25 mg tablet 125 mg PO DAILY 10/18/22 Hospital Course Operations - (venogram, percutaneous pharmacomechanical thrombectomy, angioplasty IVC and bilateral common/external iliac veins) Summary of Care Provided Hospital Course: Patient is a 76-year-old female with 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 She previously underwent mechanical thrombectomy of right lower extremity, bilateral iliac veins, and the inferior vena cava.? At the time she also underwent balloon angioplasty of the IVC and the right iliac vein, both of which have significant scarring from previous radiation.? Initially she had done well but she redeveloped right lower extremity DVT so decided to proceed with repeat thrombectomy. Patient was admitted for heparin bridge from home [facility] on 10/18/22. On 10/19/22 patient underwent venogram, percutaneous pharmacomechanical thrombectomy, angioplasty IVC and bilateral common/external iliac veins to address recurrent, extensive RLE DVT. General anesthesia was utilized, supraglottic airway was used. In this procedure, a significant amount of clot was removed and great improvement in venous flow; however, there was a significant amount of chronic thrombus identified that was not able to be removed and the right venous system was revealed to be significantly reduced in caliber and appearance consistent with damage from patient's prior radiation. It was felt that the damage from ra diation is likely the most significant factor contributing to her recurrent DVT; therefore, the IVC filter was left in place. Unfortunately, these radiation- damaged vessels do not typically respond well to stenting and it was ultimately felt the best decision would be to withhold stenting, especially as the patient has good, large collateral vessels. Access sites were closed with a single silk stitch. She tolerated the procedure well. Patient was kept for bridging back to [facility] and observation. After the procedure, patient was noted to be hoarse, have a sore throat, and a mild cough felt to be secondary to placement of airway device. On 10/20/22 patient had one very brief run of tachyarrhythmia up to 160s bpm. Patient was seated when this occurred, asymptomatic, and resolved quickly when she laid down before an EKG could be obtained. Due to this patient was kept one additional night out of an abundance of caution. Patient otherwise remained hemodynamically stable throughout her admission. She was transitioned back to [facility] without issue. She reported improved lower extremity symptoms and felt like her mobility was improved after the procedure. On day of discharge, patient was still hoarse with sore throat and mild cough but reports this was better than the day before. WBC and Hgb were stable. She denied any CP, SOB, sputum production, palpitations, presyncope/syncope, fever, chills, nausea, vomiting, increased pain/swelling lower extremities. Access sites were C/D/I without evidence of bleeding/swelling/hematoma/infection. She felt she was ready and safe for discharge home. She does have PT at home. Physical Exam Const alert, oriented x3 and no apparent distress General Appearance: cooperative and comfortable Resp normal respiratory effort, normal air movement, no use of accessory muscles and clear to auscultation bilaterally Effort and Inspection: able to speak in complete sentences and symmetric chest movement; Negative for respiratory distress, labored, stridor or audible wheezes Auscultation: clear to auscultation bilaterally Cardio regular rate and regular rhythm Peripheral Pulses: brachial pulses present and radial pulses present Extremity General Extremity: edema Skin no rashes or lesions noted and no wounds Skin Narrative: Some bruising noted to left wrist secondary to IV placement attempts. Mild bruising around right groin access site, no swelling/hematoma/erythema. Weight / BMI Weight Weight: 116 lb 13.52 oz Body Mass Index (BMI) 22.8 ABG / Lab / Microbiology Data Result Diagrams: 10/21/22 09:07 10/20/22 04:31 Laboratory: Laboratory Results - last 24 hr 10/21/22 09:07: WBC 8.5, RBC 3.45 L, Hgb 9.3 L, Hct 31.0 L, MCV 89.9, MCH 27.0, MCHC 30.0 L, RDW Std Deviation 53.3 H, RDW Coeff of Lauro 16.3 H, Plt Count 276, MPV 9.1, Immature Gran % (Auto) 0.800, Neut % (Auto) 69.6, Lymph % (Auto) 15.5 L , Larue % (Auto) 9.1, Eos % (Auto) 4.5, Baso % (Auto) 0.5, Absolute Neuts (auto) 5.9, Absolute Lymphs (auto) 1.31, Nucleated RBC % 0 D/C Instructions Discharge Diet: No restrictions May shower in (days): 1 Weight Bearing Status: Weight bearing as tolerated Lifting Restricted to (Lbs): 20 Lifting Restrictions: Do not lift greater than 20 pounds for 3 weeks Call your doctor if your incision/area has: Sudden Increased Bleeding, Increased Pain/ Swelling, Foul Smelling Discharge and Swelling at the incision site Call your doctor if you observe: Fever of 101 or Higher Remove Dressing in: 1 day Additional Dressing/Incision Instructions: You may remove the dressings in 1 day. You may leave uncovered to keep covered for comfort. You may shower in 1 day. It is okay for soap and water to wash over the incision sites. Do not take a bath or submerge the incision sites for 3 weeks. Additional Instructions: Do not lift greater than 20 pounds for the next 3 weeks. Ambulation is encouraged as tolerated, no limitations. Continue to wear compression stockings. Continue to take Xarelto as prescribed. Follow-up in the office as scheduled on 11/05/2022. Sutures will be removed at this time. Please Follow Up With: Ethan Schaefer MD When: 11/05/2022 Meaningful Use Info Meaningful Use Diagnoses (Choose all that apply): VTE VTE Anticoag overlap given w/in hospital stay or rx'd at dc?: Yes Pt receive overlap for 5 days?: Yes Discharge Plan Admission Admit Date/Time: 10/18/22 15:52 Primary Reason for Your Visit: DVT, scheduled venogram with thrombectomy Attending Provider: Ethan Schaefer Primary Care Provider: Bernardino Min Chi Discharge Orders/Prescriptions Prescriptions: Continued sertraline 100 MG tablet 125 mg PO DAILY Label Comments: TAKE 1 TABLET BY MOUTH EVERY DAY cholecalciferol (vitamin D3) [Vitamin D3] 1,000 UNIT tablet 1,000 unit PO DAILY multivitamin with folic acid [Thera] 1 TABLET tablet 1 tab PO DAILY potassium chloride 10 mEq tablet extended release 10 meq PO BID levothyroxine 25 mcg tablet 25 mcg PO DAILY methenamine hippurate 1 gram tablet 1 g PO BID Label Comments: TAKE 1 TABLET BY MOUTH TWICE A DAY WITH MEALS brimonidine 0.2 % drops 2 drp RIGHT EYE TID Label Comments: INSTILL 1 DROP INTO RIGHT EYE 3 TIMES A DAY mirtazapine 15 mg tablet 15 mg PO QHS Label Comments: 1 tablet by mouth once a day polyethylene glycol 3350 [Miralax] 17 gram/dose Powder 17 g PO DAILY latanoprost 0.005 % drops 1 drp EACH EYE HS Xarelto 20 mg Tablet 20 mg PO DINNER 30 Days Qty: 30 0RF sertraline 25 mg tablet 125 mg PO DAILY Referrals / Follow Up: Bernardino Min Chi, MD [Primary Care Provider] - Disposition Disposition (needs filled in before D/C Order can be placed): Home, Self Care Charges/Coding Visit Charges Inpatient E&M: 08869 Disch Hosp
[2022-10-21 10:34] VITALS: BP 122/70; PULSE 97; RESP 18; TEMP 37; O2SAT 91
[2022-10-21] MEDS: Sertraline 50 MG Tablet 125 MG PO (10:37)
[2022-10-21] MEDS: Polyethylene Glycol 3350 17 GM PACKET PO (10:37)
[2022-10-21] MEDS: Methenamine Hippurate 1 GM Tablet PO (10:37)
[2022-10-21] MEDS: Potassium Chloride Oral Tablet 10 MEQ PO (10:37)
[2022-10-21] MEDS: Ensure Plus High Protein 120 ML LIQUID PO (10:40)
--- NOTE | 2022-10-21 10:55 | PHA.DC.MR ---
Pharmacy Service has performed discharge medication reconciliation for this patient. The patient's discharge medication list was reviewed for discrepancies and discrepancies were resolved. Home Medications cholecalciferol (vitamin D3) 25 mcg (1,000 unit) tablet (Vitamin D3) 1,000 unit PO DAILY supplement 09/08/18 multivitamin with folic acid 400 mcg tablet (Thera) 1 tab PO DAILY supplement 09/08/18 sertraline 100 mg tablet 125 mg PO DAILY mental health 09/08/18 brimonidine 0.2 % eye drops 2 drp RIGHT EYE TID glaucoma 08/31/22 levothyroxine 25 mcg tablet 25 mcg PO DAILY thyroid 08/31/22 methenamine hippurate 1 gram tablet 1 g PO BID Bladder 08/31/22 mirtazapine 15 mg tablet 15 mg PO QHS sleep 08/31/22 polyethylene glycol 3350 17 gram/dose oral powder (Miralax) 17 g PO DAILY constipation 08/31/22 potassium chloride 10 mEq tablet,extended release 10 meq PO BID supplement 08/31/22 latanoprost 0.005 % eye drops 1 drp EACH EYE Eye health 09/11/22 rivaroxaban 20 mg tablet (Xarelto) 20 mg PO DINNER 30 days #30 tabs 09/16/22 sertraline 25 mg tablet 125 mg PO DAILY mood stabilizer 10/18/22
--- NOTE | 2022-10-21 11:00 | NURSING ---
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
--- NOTE | 2022-10-21 12:01 | CASEMGMT ---
Patient has orders for discharge. MONTSE PATEL in to patient's room to discuss discharge needs. Patient states plan is to return home with resumption of HHC with [facility]. Patient denied further needs or concerns. MONTSE PATEL sent discharge instructions and update of discharge to [facility] via [facility].
[2022-10-21] MEDS: 0.9% Saline Lock 10 ML Syringe IV (12:35)
[2022-10-21 14:45] VITALS: BP 134/87; PULSE 102; RESP 18; TEMP 36.6; O2SAT 93
== END 2022-10-21 14:58 | disposition home or self-care (01) | DRG 270 ==
PROVIDERS: Physician Assistant; Admitting Provider Surgery Trauma Surgery; PCP Family Medicine Geriatric Medicine; Visit Provider Surgery Trauma Surgery
PROC: 06CN3ZZ Extirpation of Matter from Left Femoral Vein, Percutaneous Approach (ICD-10-PCS; principal; 2022-10-19 10:40)
DX: T82.868A Thrombosis due to vascular prosthetic devices, implants and grafts, initial encounter (principal); I82.221 Chronic embolism and thrombosis of inferior vena cava; I82.521 Chronic embolism and thrombosis of right iliac vein; I82.522 Chronic embolism and thrombosis of left iliac vein; G35 Multiple sclerosis; I73.9 Peripheral vascular disease, unspecified; Z79.01 Long term (current) use of anticoagulants; Z79.899 Other long term (current) drug therapy; Z86.711 Personal history of pulmonary embolism; R00.0 Tachycardia, unspecified
CPT/HCPCS: 36005; 36010; 36415; 37187; 37248; 37249; 37252; 37253; 75822; 75825; 76937; 80048; 85025; 85027; 85347; 85610; 85730; 93005; 94668; C1753; C1769; C1894; J7040; J7120; Q9967; A4216; C1757; J2405

== ENCOUNTER 2023-03-12 15:01 | Emergency (ER) | payer MEDICARE, SELFPAY ==
[2023-03-12 15:06] VITALS: BP 144/43; PULSE 88; RESP 19; TEMP 36.8; O2SAT 96; BMI 23.0
--- NOTE | 2023-03-12 15:14 | EX.ED.DYSGE1 ---
HPI History of Present Illness Chief Complaint: Chest Pain Informant: patient and family Narrative Narrative: History is in sleep from the patient. But her son is much better on details. Patient's chest pain is chest pain. But she actually had a reaction when she was getting chemotherapy over at [facility]. She has a history of uterine cancer. This was diagnosed approximately 2015. She had hysterectomy chemotherapy. She had some recurrence within the past year and had radiation near her kidney. On scans and recent checks they found recurrence that were in the chest area. They were giving chemotherapy this afternoon. She went and they are feeling well. They placed the IV. Within about 3 minutes of getting the chemotherapy (doxorubicin) she turned red and flushed. The report I get from the family is that she dropped her blood pressure and oxygen level and looked very red. She had been pretreated with Decadron. They then gave Benadryl and hydrocortisone. She is doing much better now. She is not having pain or trouble breathing. I have looked for some notes but it does not look like we have yet gotten a call from those who are treating her. But she is doing markedly better now. She has no history of heart disease stents. She has had an echocardiogram recently per her son. She is really back to baseline now. Of note the patient also has a history of DVTs back when she had original hysterectomy. A filter was placed approximately 4 years ago. She had lower extremity DVT and had clot extraction recently and is on Xarelto and taking it at this time. She has chronic lower extremity edema and it is at baseline. [facility] Medical History Brain bleed Glaucoma Multiple sclerosis Presence of IVC filter Pulmonary embolism Pulmonary nodule Uterine cancer no medical history Home Medications cholecalciferol (vitamin D3) 25 mcg (1,000 unit) tablet (Vitamin D3) 1,000 unit PO DAILY supplement 09/08/18 [History Last Taken 10/17/22] multivitamin with folic acid 400 mcg tablet (Thera) 1 tab PO DAILY supplement 09/08/18 [History Last Taken 10/17/22] sertraline 100 mg tablet 125 mg PO DAILY mental health 09/08/18 [History Last Taken 10/18/22] brimonidine 0.2 % eye drops 2 drp RIGHT EYE TID glaucoma 08/31/22 [History Last Taken 08/30/22] levothyroxine 25 mcg tablet 25 mcg PO DAILY thyroid 08/31/22 [History Last Taken 08/31/22] methenamine hippurate 1 gram tablet 1 g PO BID Bladder 08/31/22 [History Last Taken 10/18/22] mirtazapine 15 mg tablet 15 mg PO QHS sleep 08/31/22 [History Last Taken 10/17/22] polyethylene glycol 3350 17 gram/dose oral powder (Miralax) 17 g PO DAILY constipation 08/31/22 [History Last Taken 10/18/22] potassium chloride 10 mEq tablet,extended release 10 meq PO BID supplement 08/31/22 [History Last Taken 10/18/22] latanoprost 0.005 % eye drops 1 drp EACH EYE Eye health 09/11/22 [History Last Taken 10/17/22] rivaroxaban 20 mg tablet (Xarelto) 20 mg PO DINNER 30 days #30 tabs 09/16/22 [Rx Last Taken 10/17/22] sertraline 25 mg tablet 125 mg PO DAILY mood stabilizer 10/18/22 [History Last Taken 10/18/22] prednisone 20 mg tablet 40 mg (2 x 20 mg) PO DAILY 5 days #10 TABLETS 03/12/23 [Rx Last Taken Unknown] Allergy/AdvReac Type Severity Reaction Status Date / Time doxorubicin Allergy Severe Anaphylaxis Verified 03/12/23 15:16 codeine Allergy Hives Verified 03/12/23 15:16 methylprednisolone Allergy Hives Verified 03/12/23 15:16 Sulfa (Sulfonamide Allergy Hives Verified 03/12/23 15:16 Antibiotics) erythromycin base AdvReac Upset Verified 03/12/23 15:16 Stomach Surgical History H/O: hysterectomy History of section Social History household members: none housing: house Smoking Status: Never smoker alcohol intake: never substance use type: does not use ROS ROS ED ROS Narrative A complete review of systems was performed and is negative except as documented in the history of present illness. Some specific details below. Constitutional: No recent fevers or chills. She was feeling fine when she went into the facility for chemotherapy today. EYE: No discharge, visual complaints, or pain. ENT: No difficulty swallowing at this time. No swelling. No pain. No reflux symptoms. CV: She did have some chest pain but has trouble describing details about it. She has none now. Respiratory: She was short of breath and evidently dropped her oxygen levels but is doing fine now. GI: No abdominal pain. No nausea vomiting diarrhea. No blood in stool. : No frequency dysuria or hematuria. Musculoskeletal: No recent trauma. No pains. No swelling. Skin: No rash at this time but she evidently turned very red and flushed with infusion of the doxorubicin. Nondiaphoretic. Neuro: No weakness or numbness. Endocrine: No polyuria or polydipsia. EXAM Physical Exam Narrative Exam Narrative: CONSTITUTIONAL: Patient is nontoxic in appearance. The patient looks comfortable. Work of breathing looks normal. HEENT: No notable trauma. Mucous membranes moist. No swelling or difficulty swallowing. Sounds normal. EYES: No conjunctival injection. No proptosis. No lid swelling. NECK:No JVD. No stridor. CARDIOVASCULAR: Regular rate. Regular rhythm. No notable murmur. No JVD. RESPIRATORY: No respiratory distress. Breathing is unlabored. No wheezes. Just a few crackles are heard at the bases. However, her saturations are normal at 96 to 99% on room air showing no hypoxia. Her breathing is easy and unlabored. She has a med port in the right upper chest that does not look inflamed. GASTROINTESTINAL: Not distended. Bowel sounds are normal. No tenderness. No guarding. No rebound. No palpable mass. No bruit is heard. GENITOURINARY: No tenderness over the bladder. No CVA tenderness. MUSCULOSKELETAL: Atraumatic. Just a small amount of bilateral and equal peripheral edema. Is apparently normal per son. NEUROLOGICAL: Patient is alert and appropriate. No focal deficit is noted. She is not the best informant for details in terms of timing. She was not sure if she was on Xarelto. She was not sure if she had had a hysterectomy with original diagnosis. SKIN: No noted rashes. No diaphoresis. PSYCHIATRIC: Patient is calm. Mood is appropriate. Const Vital Signs: 03/12/23 15:06 03/12/23 15:37 Temperature 98.3 F Temperature Source Oral Pulse Rate 88 Respiratory Rate 19 H Blood Pressure 144/43 H Blood Pressure Mean 76 Pulse Ox 96 Oxygen Delivery Method Room Air Room Air MDM MDM MDM Narrative Medical decision making narrative: Patient CBC shows minimal elevation of white count and decreased hemoglobin which is nonspecific. Electrolytes show no marked abnormalities. Minimal elevation in the BUN relative to creatinine. Glucose is just slightly up at 120. Troponin is normal at 8. Patient has been up to the bathroom. She feels well. She wants to go home. I think this is reasonable. Her symptoms were consistent with an acute allergic reaction not with coronary ischemia. I do not think we have to wait for repeat troponin. We will get her on several days of prednisone. I have encouraged using [id number] Claritin once a day. She states sometimes Benadryl makes her loopy. If she has any further symptoms that should return. She will contact her oncologist about further chemotherapy options. Lab Data Attestation: I reviewed the patient's lab results. Labs: Laboratory Results - last 24 hr 03/12/23 15:32 WBC 13.4 H RBC 4.43 Hgb 11.1 L Hct 37.2 MCV 84.0 MCH 25.1 L MCHC 29.8 L RDW Std Deviation 51.0 H RDW Coeff of Lauro 16.6 H Plt Count 283 MPV 9.5 Neut % (Auto) Not Reportable Absolute Neuts (auto) 12.2 H Absolute Lymphs (auto) 1.07 Total Counted 100 Neutrophils % (Manual) 85 H Band Neutrophils % 6 H Lymphocytes % (Manual) 8 L Eosinophils % (Manual) 1 Diff Path Review May foll Platelet Estimate ADEQUATE RBC Morphology NORM C+C Sodium 140 Potassium 3.7 Chloride 107 Carbon Dioxide 28.0 Anion Gap 5 BUN 21 H Creatinine 0.96 Estim Creat Clear Calc 36.37 Est GFR (MDRD) Af Amer 73 Est GFR (MDRD) Non-Af 60 BUN/Creatinine Ratio 21.9 H Glucose 120 H Calcium 8.7 Troponin I High Sens 8 Radiography Diagnostic Testing: Clinical Impression(s) from Imaging Studies Chest X-Ray 03/12/23 15:40 IMPRESSION: No radiographic evidence of acute cardiopulmonary disease. Electronically Signed: Brook Griffin MD at 16:04 EDT , EKG Initial EKG: Comments: My independent interpretation of the patient's EKG done for recent history of chest pain shows a sinus rhythm with occasional PACs. No ventricular ectopy. Poor anterior R wave. Mild nonspecific changes but no sign of acute infarct or ischemia. [place] interval, QRS duration and QTc are normal. Discharge Plan Triage Chief Complaint: Chest Pain ED Provider: Carlos Enrique Peguero Dx/Rx/DC Orders Clinical Impression: Drug-induced anaphylaxis Instructions: ED Anaphylaxis Prescriptions: New prednisone 20 mg tablet 40 mg PO DAILY 5 Days Qty: 10 0RF No Action sertraline 100 MG tablet 125 mg PO DAILY Patient Comments: TAKE 1 TABLET BY MOUTH EVERY DAY cholecalciferol (vitamin D3) [Vitamin D3] 1,000 UNIT tablet 1,000 unit PO DAILY multivitamin with folic acid [Thera] 1 TABLET tablet 1 tab PO DAILY potassium chloride 10 mEq tablet extended release 10 meq PO BID levothyroxine 25 mcg tablet 25 mcg PO DAILY methenamine hippurate 1 gram tablet 1 g PO BID Patient Comments: TAKE 1 TABLET BY MOUTH TWICE A DAY WITH MEALS brimonidine 0.2 % drops 2 drp RIGHT EYE TID Patient Comments: INSTILL 1 DROP INTO RIGHT EYE 3 TIMES A DAY mirtazapine 15 mg tablet 15 mg PO QHS Patient Comments: 1 tablet by mouth once a day polyethylene glycol 3350 [Miralax] 17 gram/dose Powder 17 g PO DAILY latanoprost 0.005 % drops 1 drp EACH EYE HS Xarelto 20 mg Tablet 20 mg PO DINNER 30 Days Qty: 30 0RF sertraline 25 mg tablet 125 mg PO DAILY Primary Care Provider: Bernardino Min Chi Referrals: Bernardino Min Chi, MD [Primary Care Provider] - 3-5 Days if not improving Activity Restrictions/Additional Instructions: Follow-up with your oncologist about further chemotherapy options. Take 1 Claritin a day for the next 3 to 5 days. Disposition Disposition: Home, Self Care
--- NOTE | 2023-03-12 15:15 | EKG12_ITS ---
Test Reason : DIZZINESS Blood Pressure : / mmHG Vent. Rate : 083 BPM Atrial Rate : 083 BPM P-R Int : 152 ms QRS Dur : 066 ms QT Int : 382 ms P-R-T Axes : 056 -22 025 degrees QTc Int : 448 ms Sinus rhythm with Premature atrial complexes Septal infarct , age undetermined Abnormal ECG Confirmed by MIKE SAN, HAI ([id number]), scientific editor FABIAN VIERA ([id number]) on 03/22/2023 12:16:02 PM Referred By: PL Confirmed By:HAI MCKEON MD
[2023-03-12 15:40] LABS: Hematocrit 37.2 % (37-47); Hemoglobin 11.1 g/dL (12.0-15.0); Mean Corp Hgb Conc 29.8 g/dL (32-36); Mean Corpuscular Hgb 25.1 pg (27.0-32.0); Mean Platelet Vol. 9.5 fl (6.2-12.0); POSITIVE COUNT YES; POSITIVE MORPHOLOGY YES; Platelet Count 283 K/mm3 (150-450); RBC Distribution Width CV 16.6 % (11.6-14.6); Red Blood Count 4.43 M/mm3 (4.2-5.4); White Blood Count 13.4 K/mm3 (4.4-11.0)
--- NOTE | 2023-03-12 15:40 | RAD_ITS ---
INDICATION: chest pain EXAMINATION/TECHNIQUE: X-RAY - XR Chest 1 View COMPARISON: Prior study dated: August 31, 2022 FINDINGS: LINES/DEVICES: There is a right-sided Mediport in place with its tip terminating within the expected region of the superior vena cava. There is a grossly stable appearing inferior vena cava filter in place. LUNGS: There is stable elevation of the right hemidiaphragm. No consolidation, edema or effusion. No pneumothorax. MEDIASTINUM AND CARDIOVASCULAR STRUCTURES: Cardiac silhouette not enlarged. Central airways and mediastinal contour are unremarkable. BONES AND SOFT TISSUES: Unremarkable. RAD/Chest 1 View (Portable) IMPRESSION: No radiographic evidence of acute cardiopulmonary disease. Electronically Signed: Brook Griffin MD at 16:04 EDT ,
[2023-03-12 15:49] LABS: Differential Indicated MANUAL DIFF
[2023-03-12 15:56] LABS: Anion Gap 5 (5-15); BUN 21 mg/dL (7-18); BUN/Creat Ratio 21.9 RATIO (10-20); Calcium,Total 8.7 mg/dL (8.5-10.1); Chloride 107 mmol/L (98-107); Creatinine, Serum 0.96 mg/dL (0.55-1.02); EST Glomerular Filtration Rate 60 mL/min (>60); Est Glom Filt Rate - Afr Amer 73 mL/min (>60); Estimated Creatinine Clearance 36.37 ml/min; Glucose 120 mg/dL (74-106); Potassium 3.7 mmol/L (3.5-5.1); Sodium Level 140 mmol/L (136-145); Troponin-I HS (w/2H Reflex) 8 pg/mL (3.0-54.0)
[2023-03-12 16:17] LABS: Eosinophil 1 % (0-5); Lymphocyte 8 % (19-41); Neutrophil-Band 6 % (0-5); Neutrophil-Segmented 85 % (47-70); Total Cells Counted 100 (MANUAL DIFF)
[2023-03-12 16:18] LABS: Absolute Neutrophil Count 12.2 X10^3/uL (2.0-7.7); Platelet Estimate ADEQUATE (ADEQ); Red Cell Morphology NORM C+C NORMAL (NORM C&C)
[2023-03-12 16:19] LABS: Absolute Lymphocyte Count 1.07 X10^3/uL (0.83-4.51)
[2023-03-12 17:35] LABS: Reflex Troponin-HS? (from REC) Y
[2023-03-16 12:14] LABS: Pathologist Review Reviewed
== END 2023-03-12 17:19 | disposition home or self-care (01) ==
PROVIDERS: Emergency Provider Emergency Medicine; PCP Family Medicine Geriatric Medicine; Visit Provider Emergency Medicine
DX: R07.9 Chest pain, unspecified (principal); T45.1X5A Adverse effect of antineoplastic and immunosuppressive drugs, initial encounter; Z85.42 Personal history of malignant neoplasm of other parts of uterus; Z90.710 Acquired absence of both cervix and uterus
CPT/HCPCS: 71045; 80048; 84484; 85025; 93005; 99285; A4216

== ENCOUNTER 2023-06-26 20:22 | Observation (INO) | payer MEDICARE, SELFPAY ==
[2023-06-26 20:24] VITALS: BP 161/98; PULSE 90; RESP 16; TEMP 36.8; O2SAT 100
--- NOTE | 2023-06-26 20:44 | EX.ED.DYSGE1 ---
[facility] <Dr. Ju López DO - Last Filed: 06/26/23 22:07> History of Present Illness Chief Complaint: Weakness Detail of Chief Complaint: Weakness and frequent falls Informant: patient and family Narrative Narrative: Patient presents the emergency department with generalized weakness for the last week. Patient being treated currently for uterine cancer with metastasis. She started immunotherapy a week ago and had an infusion and then oral meds but did not tolerate very well so they discontinued her oral meds. Patient is followed by 4 times this week and she just generally feels weak. She did hit her head earlier in the week but did not hit her head today when she fell. Family is concerned because she lives alone and she is on Xarelto. Patient with prior history of PE. Patient denies fever. She denies cough or sore throat. She denies urinary symptoms although she had decreased urine output and decreased p.o. intake. [facility] <Dr. Ju López DO - Last Filed: 06/26/23 22:07> [facility] Medical History Brain bleed Glaucoma Multiple sclerosis Presence of IVC filter Pulmonary embolism Pulmonary nodule Uterine cancer Home Medications cholecalciferol (vitamin D3) 25 mcg (1,000 unit) tablet (Vitamin D3) 1,000 unit PO DAILY supplement 09/08/18 [History Last Taken 10/17/22] multivitamin with folic acid 400 mcg tablet (Thera) 1 tab PO DAILY supplement 09/08/18 [History Last Taken 10/17/22] sertraline 100 mg tablet 125 mg PO DAILY mental health 09/08/18 [History Last Taken 10/18/22] brimonidine 0.2 % eye drops 2 drp RIGHT EYE TID glaucoma 08/31/22 [History Last Taken 08/30/22] levothyroxine 25 mcg tablet 25 mcg PO DAILY thyroid 08/31/22 [History Last Taken 08/31/22] methenamine hippurate 1 gram tablet 1 g PO BID Bladder 08/31/22 [History Last Taken 10/18/22] mirtazapine 15 mg tablet 15 mg PO QHS sleep 08/31/22 [History Last Taken 10/17/22] polyethylene glycol 3350 17 gram/dose oral powder (Miralax) 17 g PO DAILY constipation 08/31/22 [History Last Taken 10/18/22] potassium chloride 10 mEq tablet,extended release 10 meq PO BID supplement 08/31/22 [History Last Taken 10/18/22] latanoprost 0.005 % eye drops 1 drp EACH EYE Eye health 09/11/22 [History Last Taken 10/17/22] rivaroxaban 20 mg tablet (Xarelto) 20 mg PO DINNER 30 days #30 tabs 09/16/22 [Rx Last Taken 10/17/22] sertraline 25 mg tablet 125 mg PO DAILY mood stabilizer 10/18/22 [History Last Taken 10/18/22] prednisone 20 mg tablet 40 mg (2 x 20 mg) PO DAILY 5 days #10 TABLETS 03/12/23 [Rx Last Taken Unknown] Allergy/AdvReac Type Severity Reaction Status Date / Time doxorubicin Allergy Severe Anaphylaxis Verified 06/26/23 20:23 codeine Allergy Hives Verified 06/26/23 20:23 methylprednisolone Allergy Hives Verified 06/26/23 20:23 Sulfa (Sulfonamide Allergy Hives Verified 06/26/23 20:23 Antibiotics) erythromycin base AdvReac Upset Verified 06/26/23 20:23 Stomach Surgical History H/O: hysterectomy History of section Social History household members: none housing: house Smoking Status: Never smoker alcohol intake: never substance use type: does not use ROS <Dr. Ju López, - Last Filed: 06/26/23 22:07> ROS ED Review of Systems ROS Unobtainable: other Constitutional Constitutional ED: Reports lethargy; Denies chills, fever(s), sweats or weight loss Eyes Eyes: Denies blurry vision, change in vision or diplopia ENT ENT ED: Denies rhinorrhea or sore throat Cardiovascular Cardiovascular: Denies chest pain, orthopnea or racing heartbeat Respiratory/Chest Respiratory/Chest: Denies cough, dyspnea, dyspnea on exertion, orthopnea or sputum Gastrointestinal Gastrointestinal: Denies abdominal pain, diarrhea, nausea or vomiting Genitourinary Genitourinary ED: Denies dysuria, hematuria or urinary frequency Musculoskeletal Musculoskeletal: Denies arthralgias, back pain, myalgias or neck pain Integumentary Denies abscess, Abrasions or rash Neurologic Neurologic: Reports weakness; Denies headache(s) Psychiatric Psychiatric: Denies anxiety, depression or suicidal thoughts Endocrine Endocrinology: Denies polydipsia, polyphagia or polyuria Hematologic/Lymphatic Hematologic/Lymphatic: Denies easy bleeding, easy bruising or lymphadenopathy Allergic/Immunologic Allergic/Immunologic ED: Denies mouth swelling, tongue swelling or urticaria EXAM <Dr. Ju López, DO - Last Filed: 06/26/23 22:07> Physical Exam Const Vital Signs: 06/26/23 20:24 06/26/23 21:12 06/26/23 21:28 Temperature 98.2 F Temperature Source Temporal Pulse Rate 90 Pulse Rate [Lying] 77 Pulse Rate [Sitting (for 1 minute prior to obtaining)] 72 Respiratory Rate 16 Respiratory Effort Normal Respiratory Pattern Normal Blood Pressure 161/98 H Blood Pressure [Lying] 175/86 H Blood Pressure [Sitting (for 1 minute prior to obtaining)] 167/90 H Blood Pressure [Standing (for 1 minute prior to obtaining)] 158/88 H Blood Pressure Mean 119 Blood Pressure Mean [Lying] 115 Blood Pressure Mean [Sitting (for 1 minute prior to obtaining)] 115 Blood Pressure Mean [Standing (for 1 minute prior to obtaining)] 111 Pulse Ox 100 Positive well nourished and well developed General Appearance ED: well developed and NAD HEENT Reports TM's clear and moist mucous membranes normocephalic and atraumatic; Negative for trauma or tenderness Tympanic Membrane ED: Yes TM's clear Eyes PERRL and EOMs intact bilaterally General Eye ED: Negative for pale conjunctiva or scleral icterus Neck no lymphadenopathy, supple and no JVD General: Negative for tenderness Chest Wall inspection of chest normal and palpation of chest normal Chest: Negative for tenderness Resp normal respiratory effort and clear to auscultation bilaterally Effort and Inspection: Negative for respiratory distress or pain with movement Auscultation: Negative for rhonchi, wheezes or diminished lung sounds Cardio regular rate, regular rhythm, S1 normal heart sound, S2 normal heart sound and no murmurs Peripheral Pulses: pulses 2+ throughout GI normal to inspection, nondistended, normoactive bowel sounds, soft to palpation, non-tender, non-distended and no masses Back/Spine no CVA tenderness and no thoracic nor lumbar tenderness Extremity normal to inspection General Extremety ED: Negative for edema General Extremity: Negative for edema Neuro oriented x3, CN's II-XII intact bilaterally, no sensory deficits noted and gait normal Sensorium / Orientation: awake, alert, oriented to person, oriented to place and oriented to time Motor Exam: strength 5/5 throughout and strength abnormal Psych mental status grossly normal Skin no rashes or lesions noted and no wounds <Dr. Elmer Zee MD - Last Filed: 06/26/23 23:43> Physical Exam Const Vital Signs: 06/26/23 20:24 06/26/23 21:12 06/26/23 21:28 Temperature 98.2 F Temperature Source Temporal Pulse Rate 90 Pulse Rate [Lying] 77 Pulse Rate [Sitting (for 1 minute prior to obtaining)] 72 Respiratory Rate 16 Respiratory Effort Normal Respiratory Pattern Normal Blood Pressure 161/98 H Blood Pressure [Lying] 175/86 H Blood Pressure [Sitting (for 1 minute prior to obtaining)] 167/90 H Blood Pressure [Standing (for 1 minute prior to obtaining)] 158/88 H Blood Pressure Mean 119 Blood Pressure Mean [Lying] 115 Blood Pressure Mean [Sitting (for 1 minute prior to obtaining)] 115 Blood Pressure Mean [Standing (for 1 minute prior to obtaining)] 111 Pulse Ox 100 MDM <Dr. Ju López DO - Last Filed: 06/26/23 22:07> [facility] MDM Narrative Medical decision making narrative: Patient presents from home with her son who brings her in for evaluation for generalized weakness and frequent falls. And a differential would be infectious etiology versus debility versus medication related side effects. IV line will be established. Patient will be given normal saline at [address] brain will be obtained as she has had frequent falls with head injury earlier in the week and is anticoagulated with Xarelto. Will obtain urinalysis as well as lab work. EKG obtained on arrival showed a sinus rhythm with a rate of 80 bpm with PACs and old septal infarct. CBC with differential count of 8.1 with hemoglobin 10.8 and platelet count of 397. Chemistries unremarkable. LFTs were normal. Troponin normal at 8. CT scan of the brain without contrast showed chronic involutional changes without evidence of intracranial hemorrhage or other acute disease process. Urinalysis pending. Case patient turned over to evening physician awaiting urinalysis results and final disposition. Lab Data Attestation: I reviewed the patient's lab results. Labs: Laboratory Results - last 24 hr 06/26/23 06/26/23 21:04 22:02 WBC 8.1 RBC 4.31 Hgb 10.8 L Hct 35.9 L MCV 83.3 MCH 25.1 L MCHC 30.1 L RDW Std Deviation 49.3 H RDW Coeff of Lauro 16.8 H Plt Count 397 MPV 9.0 Immature Gran % (Auto) 0.400 Neut % (Auto) 71.7 H Lymph % (Auto) 15.3 L [place] % (Auto) 9.1 Eos % (Auto) 3.1 Baso % (Auto) 0.4 Absolute Neuts (auto) 5.8 Absolute Lymphs (auto) 1.23 Nucleated RBC % 0 Sodium 140 Potassium 3.5 Chloride 105 Carbon Dioxide 28.0 Anion Gap 7 BUN 29 H Creatinine 0.82 Estim Creat Clear Calc 42.58 Est GFR (MDRD) Af Amer 88 Est GFR (MDRD) Non-Af 72 BUN/Creatinine Ratio 35.5 H Glucose 120 H Calcium 8.1 L Total Bilirubin 0.40 AST 18 ALT 13 Alkaline Phosphatase 104 Troponin I High Sens 8 Total Protein 6.8 Albumin 2.9 L Globulin 3.9 Albumin/Globulin Ratio 0.7 L Urine Color Yellow Urine Clarity Clear Urine pH 6.0 Ur Specific [place] 1.015 Urine Protein 30 H Urine Glucose (UA) Normal Urine Ketones Negative Urine Occult Blood 25 H Urine Nitrite Negative Urine Bilirubin Negative Urine Urobilinogen Normal Ur Leukocyte Esterase 25 H Urine RBC 0 SEEN Urine WBC 0-5 SEEN Ur Squamous Epith Cells 0-5 SEEN Urine Bacteria 0 SEEN Urine Mucus 0 SEEN Radiography Diagnostic Testing: Clinical Impression(s) from Imaging Studies Brain CT 06/26/23 20:47 IMPRESSION: No acute intracranial hemorrhage. Similar exam findings compared to prior study. Electronically Signed: Pedro Luis Cuellar MD at 22:01 EDT , EKG Initial EKG: Attestation: I personally reviewed and interpreted this EKG as follows: Comments: Sinus rhythm with a rate of 80 bpm with PACs and old septal infarct <Dr. Elmer Zee MD - Last Filed: 06/26/23 23:43> [facility] Lab Data Labs: Laboratory Results - last 24 hr 06/26/23 06/26/23 21:04 22:02 WBC 8.1 RBC 4.31 Hgb 10.8 L Hct 35.9 L MCV 83.3 MCH 25.1 L MCHC 30.1 L RDW Std Deviation 49.3 H RDW Coeff of Lauro 16.8 H Plt Count 397 MPV 9.0 Immature Gran % (Auto) 0.400 Neut % (Auto) 71.7 H Lymph % (Auto) 15.3 L [place] % (Auto) 9.1 Eos % (Auto) 3.1 Baso % (Auto) 0.4 Absolute Neuts (auto) 5.8 Absolute Lymphs (auto) 1.23 Nucleated RBC % 0 Sodium 140 Potassium 3.5 Chloride 105 Carbon Dioxide 28.0 Anion Gap 7 BUN 29 H Creatinine 0.82 Estim Creat Clear Calc 42.58 Est GFR (MDRD) Af Amer 88 Est GFR (MDRD) Non-Af 72 BUN/Creatinine Ratio 35.5 H Glucose 120 H Calcium 8.1 L Total Bilirubin 0.40 AST 18 ALT 13 Alkaline Phosphatase 104 Troponin I High Sens 8 Total Protein 6.8 Albumin 2.9 L Globulin 3.9 Albumin/Globulin Ratio 0.7 L Urine Color Yellow Urine Clarity Clear Urine pH 6.0 Ur Specific [place] 1.015 Urine Protein 30 H Urine Glucose (UA) Normal Urine Ketones Negative Urine Occult Blood 25 H Urine Nitrite Negative Urine Bilirubin Negative Urine Urobilinogen Normal Ur Leukocyte Esterase 25 H Urine RBC 0 SEEN Urine WBC 0-5 SEEN Ur Squamous Epith Cells 0-5 SEEN Urine Bacteria 0 SEEN Urine Mucus 0 SEEN Radiography Diagnostic Testing: Clinical Impression(s) from Imaging Studies Brain CT 06/26/23 20:47 IMPRESSION: No acute intracranial hemorrhage. Similar exam findings compared to prior study. Electronically Signed: Pedro Luis Cuellar MD at 22:01 EDT , Management Discussion w/another healthcare provider: Hospitalist Treatment and Re-Evaluation Comments:: Patient checked out to me. I reviewed the urinalysis which shows no signs of acute infection. I discussed with patient and son at length at the bedside. There is concern for her safety since she lives alone and already has an aide coming at times but cannot be there 22/03, neither can family. The patient really does not want to go to a [facility], but in the end she is coherent and understands that her safety is at risk here, she is very weak, and she does have prerenal azotemia and some dehydration which we treated gradually here in the ER with IV fluids, she is amenable to being admitted for evaluations for possible placement and/or short-term rehab, discussed with hospitalist. Discharge Plan Dx/Rx/DC Orders Clinical Impression: Declining functional status, Falls frequently, Weakness, Multiple sclerosis, Acute dehydration, Cancer, uterine Disposition Disposition: Acute Care [facility]
--- NOTE | 2023-06-26 20:47 | CT_ITS ---
INDICATION: fall. head injury EXAMINATION: CT BRAIN - CT Head or Brain W/O Contrast Injection TECHNIQUE: Multiple axial images were obtained of the head without intravenous contrast. A radiation dose optimization technique was used for this scan. IV Contrast dosage and agent: None. COMPARISON: October 28, 2021 FINDINGS: BRAIN PARENCHYMA: No intra- or extra-axial hemorrhage. No evidence of acute infarct. No intracranial mass or mass effect. There is preservation of the wolf/white matter interface. Chronic white matter changes suggesting small vessel disease. Posterior fossa structures are unremarkable. CSF SPACES: Involutional change. No hydrocephalus. Basal cisterns are patent. CALVARIUM, SKULL BASE, PARANASAL SINUSES AND MASTOID AIR CELLS: Clear. No discrete lytic or blastic abnormalities. ORBITS: Both globes, extraocular muscles, optic nerves and retrobulbar fat appear unremarkable. CT/Brain/Head without Contrast IMPRESSION: No acute intracranial hemorrhage. Similar exam findings compared to prior study. Electronically Signed: Pedro Luis Cuellar MD at 22:01 EDT ,
[2023-06-26 21:11] LABS: Absolute Lymphocyte Count 1.23 X10^3/uL (0.83-4.51); Absolute Neutrophil Count 5.8 X10^3/uL (2.0-7.7); Basophil# 0.03 X10^3/uL; Basophil% 0.4 % (0-1); Eosinophil# 0.25 X10^3/uL; Eosinophils% 3.1 % (0-5); Hematocrit 35.9 % (37-47); Hemoglobin 10.8 g/dL (12.0-15.0); Lymphocyte # 1.23 X10^3/ul (0.83-4.51); Lymphocyte % 15.3 % (19-41); Mean Corp Hgb Conc 30.1 g/dL (32-36); Mean Corpuscular Hgb 25.1 pg (27.0-32.0); Mean Corpuscular Volume 83.3 fL (81-99); Monocyte# 0.73 X10^3/uL; Monocyte% 9.1 % (0-10); NRBC Flagged by Analyzer 0 % (0-5); Neutrophil # 5.78 X10^3/uL (2.7-7.7); Neutrophil % 71.7 % (47-70); Platelet Count 397 K/mm3 (150-450); RBC Distribution Width CV 16.8 % (11.6-14.6); RBC Distribution Width SD 49.3 fl (35.1-43.9); Red Blood Count 4.31 M/mm3 (4.2-5.4); White Blood Count 8.1 K/mm3 (4.4-11.0)
[2023-06-26 21:12] VITALS: BP 158/88; BP 167/90; BP 175/86; PULSE 72; PULSE 77; BMI 22.3
[2023-06-26 21:32] LABS: ALB/GLOB Ratio 0.7 RATIO (0.9-2.4); AST(SGOT) 18 U/L (15-37); Alanine Aminotransfer ALT/SGPT 13 U/L (13-56); Albumin, Serum 2.9 g/dL (3.2-5.0); Alkaline Phosphatase 104 U/L (45-117); Anion Gap 7 (5-15); BUN 29 mg/dL (7-18); BUN/Creat Ratio 35.5 RATIO (10-20); Calcium,Total 8.1 mg/dL (8.5-10.1); Chloride 105 mmol/L (98-107); Creatinine, Serum 0.82 mg/dL (0.55-1.02); EST Glomerular Filtration Rate 72 mL/min (>60); Est Glom Filt Rate - Afr Amer 88 mL/min (>60); Estimated Creatinine Clearance 42.58 ml/min; Globulin 3.9 g/dL (2.2-4.2); Glucose 120 mg/dL (74-106); Potassium 3.5 mmol/L (3.5-5.1); Protein, Total 6.8 g/dL (6.4-8.2); Sodium Level 140 mmol/L (136-145); Troponin-I HS 8 pg/mL (3.0-54.0)
--- NOTE | 2023-06-26 21:46 | ED.RN ---
RN HAD CONVERSATION WITH PATIENT REGARDING HER SAFETY AT HOME. PT STATES SHE DOES NOT WANT TO GO TO AN ASSISTED LIVING FACILITY AND DOES NOT WANT TO MOVE TO [place] WITH HER FAMILY. HER SYNA[place]UE AND FRIENDS ARE IN [facility].RN STATES SHE UNDERSTOOD HER REASONS BUT SHE HAD A CONCERN FOR HER SAFETY. PER SON THIS IS HER 4TH FALL AT HOME THIS WEEK. RN STATES THAT IS A LOT TO BE FALLING ESPECIALLY IF HER LIFE ALERT HAS NOT BEEN WORKING LATELY. RN STATES SHE IS CONCERNED FOR HER SAFETY AND UNDERSTANDS THIS IS A HARD DECISION TO MAKE. PATIENTS SON RITA AT BEDSIDE ALSO STATES HE HAS HAD THIS CONVERSATION MULTIPLE TIMES. RN INFORMED HER AND SON A DECISION DOES NOT HAVE TO BE MADE TONIGHT BUT THIS IS A CONVERSATION THEY SHOULD HAVE. PT UNDERSTOOD AND WILL CONSIDER HER HEALTH AND SAFETY.
[2023-06-26] MEDS: 0.9% Normal Saline (1000mL) 1,000 ML 150 ML IV (22:00)
[2023-06-26 22:09] LABS: Bacteria 0 SEEN /hpf (None Seen); Mucous, Urine 0 SEEN /hpf (<or=2+); Red Blood Cells-Urine 0 SEEN /hpf (0-5)
[2023-06-26 22:17] LABS: Color, Urine Yellow (Yellow); Glucose, Dipstick Normal (Normal); Ketone-Dipstick Negative (Negative); Leukocyte Esterase-Dipstick 25 /ul (Negative); Nitrite-Dipstick Negative (Negative); Occult Blood-Urine 25 /ul (Negative); Protein-Dipstick 30 mg/dl (Negative); Specific Gravity, Urine 1.015 (1.002-1.030); Urine Bilirubin Dipstick Negative (Negative); Urine Clarity Clear (Clear); Urine Urobilinogen Normal (Normal)
[2023-06-26 22:33] LABS: White Blood Cells 0-5 SEEN /hpf (0-5)
[2023-06-26 22:34] LABS: Squamous Epithelial Cells - UA 0-5 SEEN /hpf (5-10)
--- NOTE | 2023-06-26 23:24 | PCM.HP.STD ---
HPI - General General Date of Admission: 06/26/23 Date of Service: 06/26/23 Chief Complaint: Weakness HPI Narrative LAKESHIA OSEGUERA, is a 77 F with a significant history of multiple sclerosis; uterine cancer metastasized to the spine on many therapy who presents emergency department with 1 week history of progressively worsening weakness. Reportedly in the past week patient has fallen 4 times. Because of weakness patient is having difficulty getting around. Patient has a poor appetite and poor urine output. Patient is on Xarelto for history of pulmonary embolism and she has an IVC filter. Patient is open to placement if indicated. [facility] Medical History Brain bleed Cancer Depression DVT (deep venous thrombosis) Glaucoma Hypertension Hypothyroidism Multiple sclerosis Presence of IVC filter Pulmonary embolism Pulmonary embolism Pulmonary nodule Uterine cancer Home Medications cholecalciferol (vitamin D3) 25 mcg (1,000 unit) tablet (Vitamin D3) 1,000 unit PO DAILY supplement 09/08/18 [History Last Taken 10/17/22] multivitamin with folic acid 400 mcg tablet (Thera) 1 tab PO DAILY supplement 09/08/18 [History Last Taken 10/17/22] sertraline 100 mg tablet 125 mg PO DAILY mental health 09/08/18 [History Last Taken 10/18/22] brimonidine 0.2 % eye drops 2 drp RIGHT EYE TID glaucoma 08/31/22 [History Last Taken 08/30/22] levothyroxine 25 mcg tablet 25 mcg PO DAILY thyroid 08/31/22 [History Last Taken 08/31/22] methenamine hippurate 1 gram tablet 1 g PO BID Bladder 08/31/22 [History Last Taken 10/18/22] mirtazapine 15 mg tablet 15 mg PO QHS sleep 08/31/22 [History Last Taken 10/17/22] polyethylene glycol 3350 17 gram/dose oral powder (Miralax) 17 g PO DAILY constipation 08/31/22 [History Last Taken 10/18/22] latanoprost 0.005 % eye drops 1 drp EACH EYE Eye health 09/11/22 [History Last Taken 10/17/22] rivaroxaban 20 mg tablet (Xarelto) 20 mg PO DINNER BLOOD THINNER 30 days #30 tabs 09/16/22 [Rx Last Taken 10/17/22] Allergy/AdvReac Type Severity Reaction Status Date / Time doxorubicin Allergy Severe Anaphylaxis Verified 06/26/23 20:23 codeine Allergy Hives Verified 06/26/23 20:23 methylprednisolone Allergy Hives Verified 06/26/23 20:23 Sulfa (Sulfonamide Allergy Hives Verified 06/26/23 20:23 Antibiotics) erythromycin base AdvReac Upset Verified 06/26/23 20:23 Stomach Family History Other Dementia Heart disease Surgical History H/O: hysterectomy History of section History of embolic filter insertion Social History household members: none housing: house Smoking Status: Never smoker alcohol intake: never substance use type: does not use ROS ROS Narrative Pertinent positives and pertinent negatives as noted in HPI. All other systems were reviewed and are negative Vital Signs Vital Signs Vital Signs: 06/26/23 20:24 06/26/23 21:12 06/26/23 21:28 Temperature 98.2 F Temperature Source Temporal Pulse Rate 90 Pulse Rate [Lying] 77 Pulse Rate [Sitting (for 1 minute prior to obtaining)] 72 Respiratory Rate 16 Respiratory Effort Normal Respiratory Pattern Normal Blood Pressure 161/98 H Blood Pressure [Lying] 175/86 H Blood Pressure [Sitting (for 1 minute prior to obtaining)] 167/90 H Blood Pressure [Standing (for 1 minute prior to obtaining)] 158/88 H Blood Pressure Mean 119 Blood Pressure Mean [Lying] 115 Blood Pressure Mean [Sitting (for 1 minute prior to obtaining)] 115 Blood Pressure Mean [Standing (for 1 minute prior to obtaining)] 111 Pulse Ox 100 Weight Weight: 51.9 kg Body Mass Index (BMI) 22.3 Physical Exam Narrative Physical exam: General: Well-nourished, well-developed. Head: Normocephalic, atraumatic, no tenderness Eyes: Vision is grossly intact. EOMI ENT, no trauma, moist mucous membranes, no rhinorrhea Neck: Nontender, No thyromegaly. CVS: Regular rate and rhythm. S1-S2 present. No murmur, gallop or rub. Respiratory : clear to auscultation bilaterally, chest wall nontender Abdomen: Soft, nontender, nondistended, normal bowel sounds, no masses : Deferred Back: Nontender, no CVA tenderness Extremities: Nontender full range of motion, no trauma Skin: Normal color, no trauma, abrasions Neuro: Alert, oriented, cranial nerves II through XII grossly intact. Psychiatry: Normal mood. Normal affect. Not depressed. Not anxious. Results Lab / Micro Data 06/26/23 21:04 06/26/23 21:04 Labs: Laboratory Results - last 24 hr 06/26/23 21:04: WBC 8.1, RBC 4.31, Hgb 10.8 L, Hct 35.9 L, MCV 83.3, MCH 25.1 L, MCHC 30.1 L, RDW Std Deviation 49.3 H, RDW Coeff of Lauro 16.8 H, Plt Count 397, MPV 9.0, Immature Gran % (Auto) 0.400, Neut % (Auto) 71.7 H, Lymph % (Auto) 15.3 L, [place] % (Auto) 9.1, Eos % (Auto) 3.1, Baso % (Auto) 0.4, Absolute Neuts (auto) 5.8, Absolute Lymphs (auto) 1.23, Nucleated RBC % 0, Sodium 140, Potassium 3.5, Chloride 105, Carbon Dioxide 28.0, Anion Gap 7, BUN 29 H, Creatinine 0.82, Estim Creat Clear Calc 42.58, Est GFR (MDRD) Af Amer 88, Est GFR (MDRD) Non-Af 72, BUN/Creatinine Ratio 35.5 H, Glucose 120 H, Calcium 8.1 L, Total Bilirubin 0.40, AST 18, ALT 13, Alkaline Phosphatase 104, Troponin I High Sens 8, Total Protein 6.8, Albumin 2.9 L, Globulin 3.9, Albumin/Globulin Ratio 0.7 L 06/26/23 22:02: Urine Color Yellow, Urine Clarity Clear, Urine pH 6.0, Ur Specific [place] 1.015, Urine Protein 30 H, Urine Glucose (UA) Normal, Urine Ketones Negative, Urine Occult Blood 25 H, Urine Nitrite Negative, Urine Bilirubin Negative, Urine Urobilinogen Normal, Ur Leukocyte Esterase 25 H, Urine RBC 0 SEEN, Urine WBC 0-5 SEEN, Ur Squamous Epith Cells 0-5 SEEN, Urine Bacteria 0 SEEN, Urine Mucus 0 SEEN Micro: Microbiology 06/26/23 20:55 Nasal Secretion SARS-CoV-2 & FLU Antigen (Rapid) - Final Radiology Impression Brain CT 06/26/23 20:47 IMPRESSION: No acute intracranial hemorrhage. Similar exam findings compared to prior study. Electronically Signed: Pedro Luis Cuellar MD at 22:01 EDT , Assessment & Plan Assessment/Plan (1) Acute dehydration: (2) Declining functional status: PLAN: Plan Declining functional status/debility Radiologist impression of brain CT: No acute intracranial hemorrhage. Brain CT was independently interpreted, agrees to radiology interpretation Vitamin D level on 09/28/2022 was 58.2, normal, repeat. PT and OT to work with patient. Case management consult Acute dehydration Mild BUN of 29 that is above patient's baseline but of normal creatinine. Started on IV fluids at the emergency department and continued. Hypothyroidism: TSH on 09/28/22 was normal. With declining functional status will repeat TSH. DVT prophylaxis: Not indicated as patient is on Xarelto for history of pulmonary embolism and has an IVC filter. Time spent in the patient's overall evaluation,decision-making process, review of diagnostic data, adjustment of management, discussion with other providers, nursing and ancillary staff involved in patient's care documentation, 50 minutes. Charges/Coding Visit Charges Inpatient E&M: 81207 Init Hosp L2
[2023-06-27] VITALS: BP 172/87; PULSE 72; RESP 18; TEMP 37; O2SAT 94
[2023-06-27 00:34] VITALS: BMI 20.6
[2023-06-27 00:45] VITALS: BP 159/81; PULSE 78; RESP 16; TEMP 36.9; O2SAT 97
[2023-06-27] MEDS: 0.9% Normal Saline (1000mL) 1,000 ML 75 ML IV ×2 (02:36→15:24)
[2023-06-27] MEDS: MELATONIN 3 MG TABLET PO (02:36)
[2023-06-27] MEDS: Menthol/Lanolin/Calamine/Znox 113 GM Tube 1 APPLIC TOPICAL ×3 (02:38→22:25)
[2023-06-27] MEDS: BRIMONIDINE 0.2% 5ML BOTTLE 2 DRP RIGHT EYE ×3 (06:37→22:25)
[2023-06-27] MEDS: Levothyroxine 25 MCG TABLET PO (06:37)
[2023-06-27 06:41] VITALS: BP 156/90; PULSE 80; RESP 16; TEMP 36.9; O2SAT 94
--- NOTE | 2023-06-27 08:06 | PN.HOSP_ITS ---
Reason for Visit Reason for Visit: Diagnoses Dehydration (06/26/23) Other malaise (06/26/23) Subjective Subjective Feels ok. Objective Data Objective Data Vital Signs: Vital Signs Temp Pulse Resp BP Pulse Ox O2 Del Method 36.9 C 80 16 156/90 H 94 Room Air 06/27/23 06:41 06/27/23 06:41 06/27/23 06:41 06/27/23 06:41 06/27/23 06:41 06/27/23 06:41 Oxygen Delivery Method Room Air Weight: 48 kg Body Mass Index (BMI) 20.6 Intake & Output: Intake and Output for Last 24 Hours 06/25/23 06/26/23 06/27/23 23:59 23:59 23:59 Intake Total 580 / 580 Output Total 100 / 100 Balance 480 / 480 Lab / Micro Data 06/27/23 08:05 06/27/23 08:05 Labs: Laboratory Results - last 24 hr 06/26/23 21:04: WBC 8.1, RBC 4.31, Hgb 10.8 L, Hct 35.9 L, MCV 83.3, MCH 25.1 L, MCHC 30.1 L, RDW Std Deviation 49.3 H, RDW Coeff of Lauro 16.8 H, Plt Count 397, MPV 9.0, Immature Gran % (Auto) 0.400, Neut % (Auto) 71.7 H, Lymph % (Auto) 15.3 L, Brooks % (Auto) 9.1, Eos % (Auto) 3.1, Baso % (Auto) 0.4, Absolute Neuts (auto) 5.8, Absolute Lymphs (auto) 1.23, Nucleated RBC % 0, Sodium 140, Potassium 3.5, Chloride 105, Carbon Dioxide 28.0, Anion Gap 7, BUN 29 H, Creatinine 0.82, Estim Creat Clear Calc 42.58, Est GFR (MDRD) Af Amer 88, Est GFR (MDRD) Non-Af 72, BUN/Creatinine Ratio 35.5 H, Glucose 120 H, Calcium 8.1 L, Total Bilirubin 0.40, AST 18, ALT 13, Alkaline Phosphatase 104, Troponin I High Sens 8, Total Protein 6.8, Albumin 2.9 L, Globulin 3.9, Albumin/Globulin Ratio 0.7 L 06/26/23 22:02: Urine Color Yellow, Urine Clarity Clear, Urine pH 6.0, Ur Specific [place] 1.015, Urine Protein 30 H, Urine Glucose (UA) Normal, Urine Ketones Negative, Urine Occult Blood 25 H, Urine Nitrite Negative, Urine Bilirubin Negative, Urine Urobilinogen Normal, Ur Leukocyte Esterase 25 H, Urine RBC 0 SEEN, Urine WBC 0-5 SEEN, Ur Squamous Epith Cells 0-5 SEEN, Urine Bacteria 0 SEEN, Urine Mucus 0 SEEN Micro: Microbiology 06/26/23 20:55 Nasal Secretion SARS-CoV-2 & FLU Antigen (Rapid) - Final Radiography Diagnostic Testing: Radiology Impression Brain CT 06/26/23 20:47 IMPRESSION: No acute intracranial hemorrhage. Similar exam findings compared to prior study. Electronically Signed: Pedro Luis Ceullar MD at 22:01 EDT , Physical Exam Const alert and no apparent distress Constitutional Narrative: up ambulating with therapy using a large wheeled walker. HEENT head/scalp atraumatic and moist oral mucous membranes Extremity normal to inspection Neuro Sensorium / Orientation: awake and alert Assessment & Plan Assessment/Plan (1) Declining functional status: PLAN: Fallen several times this past week. Multifactorial due to severe multiple medical comorbidities (MS, stage IV uterine cancer) and complicated by dehydration. Correct the dehydration PT OT eval. PLAN: Plan Chronic conditions: * Hypothyroidism: TSH on 09/28/22 was normal. With declining functional status will repeat TSH. * Glaucoma: continue eye drops * VTE: for history of pulmonary embolism and has an IVC filter. Continue rivaroxaban * MS: no active medications * Stage IV Uterine cancer: follows Dr. Jain. DVT prophylaxis: Not indicated as patient is on Xarelto Code DNRCCA, DNI DW DIL, states pt undergoing palliative chemotherapy for Uterine CA. Charges/Coding Visit Charges Inpatient E&M: 11099 Subs Hosp L1
[2023-06-27 08:41] LABS: Absolute Neutrophil Count 4.3 X10^3/uL (2.0-7.7); Basophil# 0.03 X10^3/uL; Basophil% 0.5 % (0-1); Eosinophils% 3.2 % (0-5); Hematocrit 33.9 % (37-47); Lymphocyte % 17.6 % (19-41); Mean Corp Hgb Conc 29.5 g/dL (32-36); Mean Corpuscular Hgb 24.5 pg (27.0-32.0); Mean Corpuscular Volume 83.1 fL (81-99); Mean Platelet Vol. 9.2 fl (6.2-12.0); Monocyte# 0.58 X10^3/uL; Monocyte% 9.3 % (0-10); NRBC Flagged by Analyzer 0 % (0-5); Neutrophil # 4.33 X10^3/uL (2.7-7.7); Neutrophil % 69.1 % (47-70); Platelet Count 362 K/mm3 (150-450); RBC Distribution Width SD 49.7 fl (35.1-43.9); Red Blood Count 4.08 M/mm3 (4.2-5.4); White Blood Count 6.3 K/mm3 (4.4-11.0)
[2023-06-27] MEDS: Ensure Plus High Protein 120 ML LIQUID PO ×3 (08:50→17:29)
[2023-06-27] MEDS: Cholecalciferol (VIT D3) 25 MCG TABLET (1,000 UNITS) PO (08:51)
[2023-06-27] MEDS: Polyethylene Glycol 3350 17 GM PACKET PO (08:51)
[2023-06-27] MEDS: Sertraline 50 MG Tablet 125 MG PO (08:51)
[2023-06-27] MEDS: Multivitamins,Therapeutic Tablet 1 TABLET PO (08:51)
[2023-06-27] MEDS: Methenamine Hippurate 1 GM Tablet PO ×2 (08:52→22:26)
[2023-06-27 09:05] LABS: Anion Gap 5 (5-15); BUN 23 mg/dL (7-18); BUN/Creat Ratio 34.8 RATIO (10-20); Calcium,Total 7.9 mg/dL (8.5-10.1); Chloride 109 mmol/L (98-107); Creatinine, Serum 0.66 mg/dL (0.55-1.02); EST Glomerular Filtration Rate 93 mL/min (>60); Est Glom Filt Rate - Afr Amer 112 mL/min (>60); Estimated Creatinine Clearance 34.91 ml/min; Glucose 115 mg/dL (74-106); Potassium 3.6 mmol/L (3.5-5.1); Sodium Level 141 mmol/L (136-145)
[2023-06-27 09:11] LABS: Thyroid Stim Hormone (TSH) 3.08 uIU/mL (0.358-3.74)
[2023-06-27 11:40] VITALS: BP 124/73; PULSE 92; RESP 16; TEMP 37.1; O2SAT 94
[2023-06-27 17:12] VITALS: BP 134/76; PULSE 88; RESP 16; TEMP 37; O2SAT 95
[2023-06-27] MEDS: Rivaroxaban 20 MG Tablet PO (17:29)
[2023-06-27 20:00] VITALS: BP 156/78; PULSE 79; RESP 16; TEMP 36.9; O2SAT 93
[2023-06-27] MEDS: Mirtazapine 15 MG Tablet PO (22:25)
[2023-06-27] MEDS: Latanoprost 0.005% 1 Bottle 1 DRP EACH EYE (22:26)
[2023-06-28 02:00] VITALS: BP 163/82; PULSE 66; RESP 16; TEMP 37.4; O2SAT 93
[2023-06-28] MEDS: BRIMONIDINE 0.2% 5ML BOTTLE 2 DRP RIGHT EYE ×3 (06:24→20:49)
[2023-06-28] MEDS: Levothyroxine 25 MCG TABLET PO (06:24)
[2023-06-28] MEDS: 0.9% Normal Saline (1000mL) 1,000 ML 75 ML IV ×2 (06:25→16:40)
[2023-06-28 06:47] LABS: Bacteria 0 SEEN /hpf (None Seen); Mucous, Urine 0 SEEN /hpf (<or=2+); Red Blood Cells-Urine 0 SEEN /hpf (0-5); Squamous Epithelial Cells - UA 0 SEEN /hpf (5-10)
[2023-06-28 06:50] LABS: Color, Urine Yellow (Yellow); Glucose, Dipstick Normal (Normal); Ketone-Dipstick Negative (Negative); Leukocyte Esterase-Dipstick Negative /ul (Negative); Nitrite-Dipstick Negative (Negative); Occult Blood-Urine Negative /ul (Negative); Protein-Dipstick Negative (Negative); Urine Bilirubin Dipstick Negative (Negative); Urine Clarity Clear (Clear); Urine Urobilinogen Normal (Normal)
[2023-06-28 06:58] LABS: White Blood Cells 0-5 SEEN /hpf (0-5)
[2023-06-28 07:10] VITALS: O2SAT 93
[2023-06-28 07:48] VITALS: BP 153/85; PULSE 73; RESP 18; TEMP 35.9; O2SAT 94
[2023-06-28] MEDS: Sertraline 50 MG Tablet 125 MG PO (07:53)
[2023-06-28] MEDS: Cholecalciferol (VIT D3) 25 MCG TABLET (1,000 UNITS) PO (07:53)
[2023-06-28] MEDS: Ensure Plus High Protein 120 ML LIQUID PO ×4 (07:53→20:50)
[2023-06-28] MEDS: Menthol/Lanolin/Calamine/Znox 113 GM Tube 1 APPLIC TOPICAL ×2 (07:53→20:50)
[2023-06-28] MEDS: Multivitamins,Therapeutic Tablet 1 TABLET PO (07:53)
[2023-06-28] MEDS: Polyethylene Glycol 3350 17 GM PACKET PO (07:54)
[2023-06-28] MEDS: Methenamine Hippurate 1 GM Tablet PO ×2 (07:54→20:50)
--- NOTE | 2023-06-28 07:57 | PN.HOSP_ITS ---
Reason for Visit Reason for Visit: Diagnoses Dehydration (06/26/23) Other malaise (06/26/23) Subjective Subjective Feels well. No events overnight. Objective Data Objective Data Vital Signs: Vital Signs Temp Pulse Resp BP Pulse Ox O2 Del Method 35.9 C L 73 18 153/85 H 94 Room Air 06/28/23 07:48 06/28/23 07:48 06/28/23 07:48 06/28/23 07:48 06/28/23 07:48 06/28/23 07:48 Oxygen Delivery Method Room Air Weight: 48 kg Body Mass Index (BMI) 20.6 Intake & Output: Intake and Output for Last 24 Hours 06/26/23 06/27/23 06/28/23 23:59 23:59 23:59 Intake Total 1939 / 2039 1150 / 1150 Output Total 100 / 100 Balance 1839 / 1939 1150 / 1150 Medical Nutrition Assessment Dietitian: Malnutrition Criteria Met Start: 06/27/23 13:28 Freq: Status: Active Protocol: Document 06/27/23 13:28 REZA (Rec: 06/27/23 13:28 [facility] [id number]) Nutrition Malnutrition Evidence of Malnutrition Exists Yes Malnutrition (severe): Chronic Evidenced By Suboptimal Energy Intake ( Severe),Weight Loss (Severe) Clinical Problem Chronic Disease or Condition Related Malnutrition Etiology related to decreased ability to consume sufficient energy to meet estimated nutrient needs Signs/Symptoms as evidenced by significant weight loss of 12lb, or 10.3%, in ~3.5 months based 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 Status Active Problem Recommendation Dietitian Recommendations/Changes Continue with Regular diet for liberalization. Continue with Ensure Plus High Protein 120mL 4x/day with medpass. Will add beneprotein to applesauce with breakfast and Magic Cup at lunch and dinner to further increase oral intakes. Lab / Micro Data 06/27/23 08:05 06/27/23 08:05 Labs: Laboratory Results - last 24 hr 06/27/23 08:05: WBC 6.3, RBC 4.08 L, Hgb 10.0 L, Hct 33.9 L, MCV 83.1, MCH 24.5 L, MCHC 29.5 L, RDW Std Deviation 49.7 H, RDW Coeff of Lauro 17.0 H, Plt Count 362, MPV 9.2, Immature Gran % (Auto) 0.300, Neut % (Auto) 69.1, Lymph % (Auto) 17.6 L, Peach % (Auto) 9.3, Eos % (Auto) 3.2, Baso % (Auto) 0.5, Absolute Neuts (auto) 4.3, Absolute Lymphs (auto) 1.10, Nucleated RBC % 0, Sodium 141, Potassium 3.6, Chloride 109 H, Carbon Dioxide 27.0, Anion Gap 5, BUN 23 H, Creatinine 0.66, Estim Creat Clear Calc 34.91, Est GFR (MDRD) Af Amer 112, Est GFR (MDRD) Non-Af 93, BUN/Creatinine Ratio 34.8 H, Glucose 115 H, Calcium 7.9 L, TSH 3.08 06/28/23 06:40: Urine Color Yellow, Urine Clarity Clear, Urine pH 7.0, Ur Specific [place] 1.010, Urine Protein Negative, Urine Glucose (UA) Normal, Urine Ketones Negative, Urine Occult Blood Negative, Urine Nitrite Negative, Urine Bilirubin Negative, Urine Urobilinogen Normal, Ur Leukocyte Esterase Negative, Urine RBC 0 SEEN, Urine WBC 0-5 SEEN, Ur Squamous Epith Cells 0 SEEN, Urine Bacteria 0 SEEN, Urine Mucus 0 SEEN Micro: Microbiology 06/26/23 20:55 Nasal Secretion SARS-CoV-2 & FLU Antigen (Rapid) - Final Physical Exam Const alert and no apparent distress HEENT head/scalp atraumatic and moist oral mucous membranes Neuro Sensorium / Orientation: awake and alert Psych affect normal Assessment & Plan Assessment/Plan (1) Declining functional status: PLAN: Fallen several times this past week. Multifactorial due to severe multiple medical comorbidities (MS, stage IV uterine cancer) and complicated by dehydration. Correct the dehydration PT OT eval. PLAN: Plan Chronic conditions: * Hypothyroidism: TSH on 09/28/22 was normal. With declining functional status will repeat TSH. * Glaucoma: continue eye drops * VTE: for history of pulmonary embolism and has an IVC filter. Continue rivaroxaban * MS: no active medications * Stage IV Uterine cancer: follows Dr. Jain. DVT prophylaxis: Not indicated as patient is on Xarelto Code DNRCCA, DNI Disposition: Plan for fpc facility. Waiting on insurance authorization. Charges/Coding Visit Charges Inpatient E&M: 16467 Subs Hosp L1
--- NOTE | 2023-06-28 08:31 | WOUNDNOTE ---
was asked to see patient per nursing for suture in place to bilateral groin. the sutures are just hanging on with small piece of skin. no redness noted. pt unsure when the sutures had been placed, but states I think quite a while ago. since sutures do not appear to be doing anything and just hanging on with a small piece of skin, both sutures were removed. one from each groin. pt tolerated well.
[2023-06-28 10:35] LABS: Vitamin D,25 Hydroxy 45.7 ng/mL
--- NOTE | 2023-06-28 11:23 | CASEMGMT ---
MONTSE CM into pt room, pt sitting up in chair with dil at bedside. Discussed pt recent hx of falls and assistance she has in the home. Pt has an aide 1 hour per day in the evening, palliative care is seeing pt once a month. Pt has a walker, cane and medic alert at home. Pt states she feels she is doing better but would like to get further rehab prior to returning home. Pt's ultimate goal is to go back home. Pt dil is in agreement with therapy at SNF. Pt is aware that the insurance will give authorization for this. Pt and dil deny further questions. Updated SW.
--- NOTE | 2023-06-28 11:29 | CASEMGMT ---
Discharge Planning A list of?SNF providers including quality and resource use data and consistent with the patient's preferred geographic region, medical needs, and insurance network was created in [employer] Guide.? This list was provided to the SW. Jade Grant Discharge Planning Asst.
[2023-06-28 13:56] VITALS: BP 170/85; PULSE 93; RESP 18; TEMP 36.9; O2SAT 95
--- NOTE | 2023-06-28 14:05 | CASEMGMT ---
Social Work - discharge planning update Received handoff from RN AMANDA. Patient interested in short term NF for rehab, and prefers [facility]. This junior underwriter met with patient, introducing to self and SW role. Provided patient with a list of?SNF providers including quality and resource use data and consistent with the patient's preferred geographic region, medical needs, and insurance network was created in [employer] Guide.? Patient confirms first choice is [facility], and if no bed availability then patient reports would choose [facility]. Referral to Emelyn at [facility]. Emelyn inquires about patient's status with Chemo. Met with patient again, who reports tried chemo a few weeks ago but this did not sit well with patient. Patient denies any current chemotherapy or plan for such. Updated Emelyn in TCU. Plan: Short term SNF, pending acceptance at [facility]. If not, then will refer to [facility]. SW to follow. -HEIDE Tucker
--- NOTE | 2023-06-28 14:56 | CASEMGMT ---
Met with patient to complete FIELDS form. FIELDS form explained to patient who voiced understanding and signed form. Original form placed in pt?s chart and copy provided to?patient. Jade Grant, Discharge Planning Asst
[2023-06-28] MEDS: Rivaroxaban 20 MG Tablet PO (16:39)
[2023-06-28 20:41] VITALS: BP 150/85; PULSE 76; RESP 16; TEMP 37.1; O2SAT 95
[2023-06-28] MEDS: Mirtazapine 15 MG Tablet PO (20:50)
[2023-06-28] MEDS: MELATONIN 3 MG TABLET PO (20:50)
[2023-06-28] MEDS: Latanoprost 0.005% 1 Bottle 1 DRP EACH EYE (20:50)
[2023-06-29 03:45] VITALS: BP 160/79; PULSE 76; RESP 16; TEMP 36.7; O2SAT 96
[2023-06-29] MEDS: Levothyroxine 25 MCG TABLET PO (05:37)
[2023-06-29] MEDS: BRIMONIDINE 0.2% 5ML BOTTLE 2 DRP RIGHT EYE ×2 (05:37→13:31)
[2023-06-29] MEDS: 0.9% Normal Saline (1000mL) 1,000 ML 75 ML IV (05:38)
[2023-06-29 07:59] VITALS: BP 157/75; PULSE 72; RESP 18; TEMP 37; O2SAT 94
[2023-06-29] MEDS: Multivitamins,Therapeutic Tablet 1 TABLET PO (08:04)
--- NOTE | 2023-06-29 08:15 | PN.HOSP_ITS ---
Reason for Visit Reason for Visit: Diagnoses Dehydration (06/26/23) Other malaise (06/26/23) Subjective Subjective Feels well. No complaints. Objective Data Objective Data Vital Signs: Vital Signs Temp Pulse Resp BP Pulse Ox O2 Del Method 37.0 C 72 18 157/75 H 94 Room Air 06/29/23 07:59 06/29/23 07:59 06/29/23 07:59 06/29/23 07:59 06/29/23 07:59 06/29/23 07:59 Oxygen Delivery Method Room Air Weight: 48 kg Body Mass Index (BMI) 20.6 Intake & Output: Intake and Output for Last 24 Hours 06/27/23 06/28/23 06/29/23 23:59 23:59 23:59 Intake Total 194 / 2039 1918.75 / 2558.75 1762.5 / 1762.5 Output Total 100 / 100 200 / 200 Balance 184 / 1940 1718.75 / 2358.75 1762.5 / 1762.5 Medical Nutrition Assessment Dietitian: Malnutrition Criteria Met Start: 06/27/23 13:28 Freq: Status: Active Protocol: Document 06/27/23 13:28 REZA (Rec: 06/27/23 13:28 [facility] [id number]) Nutrition Malnutrition Evidence of Malnutrition Exists Yes Malnutrition (severe): Chronic Evidenced By Suboptimal Energy Intake ( Severe),Weight Loss (Severe) Clinical Problem Chronic Disease or Condition Related Malnutrition Etiology related to decreased ability to consume sufficient energy to meet estimated nutrient needs Signs/Symptoms as evidenced by significant weight loss of 12lb, or 10.3%, in ~3.5 months based 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 Status Active Problem Recommendation Dietitian Recommendations/Changes Continue with Regular diet for liberalization. Continue with Ensure Plus High Protein 120mL 4x/day with medpass. Will add beneprotein to applesauce with breakfast and Magic Cup at lunch and dinner to further increase oral intakes. Lab / Micro Data 06/27/23 08:05 06/27/23 08:05 Labs: Laboratory Results - last 24 hr 06/27/23 08:05: Vitamin D 25-Hydroxy 45.7 Micro: Microbiology 06/26/23 20:55 Nasal Secretion SARS-CoV-2 & FLU Antigen (Rapid) - Final Physical Exam Const alert and no apparent distress Psych affect normal Assessment & Plan Assessment/Plan (1) Declining functional status: PLAN: Fallen several times this past week. Multifactorial due to severe multiple medical comorbidities (MS, stage IV uterine cancer) and complicated by dehydration. Correct the dehydration PT OT eval. PLAN: Plan Chronic conditions: * Hypothyroidism: TSH on 09/28/22 was normal. With declining functional status will repeat TSH. * Glaucoma: continue eye drops * VTE: for history of pulmonary embolism and has an IVC filter. Continue rivaroxaban * MS: no active medications * Stage IV Uterine cancer: follows Dr. Jain. DVT prophylaxis: Not indicated as patient is on Xarelto Code DNRCCA, DNI Disposition: Plan for assisted facility.
--- NOTE | 2023-06-29 08:16 | PCM.TXEXTCAR ---
Diet Diet Order/Speech Therapy: 06/27/23 00:18 Diet: Regular - General Food consistency:: Regular Liquid Consistency:: Regular/Thin Type of Dietary Supplement:: Magic Cup Dessert Diet Comments: Elaina Magic Cup w/ lunch and dinner; applesauce and beneprotein w/ bfast Routine Orders/Code Status Code Status: DNRCC-A (no intubation. ) Wound(s) LEFT GROIN: Wound Type: FILTER PLACEMENT Therapies Weight Bearing: Full weight bearing Physical Therapy: Eval and Treat Occupational Therapy: Eval and Treat Problem/Diagnosis (1) Declining functional status: Status: Acute Code(s): R53.81 - Other malaise Plan: Fallen several times this past week. Multifactorial due to severe multiple medical comorbidities (MS, stage IV uterine cancer) and complicated by dehydration. Correct the dehydration PT OT eval. Plan Chronic conditions: Hypothyroidism: TSH on 09/28/22 was normal. With declining functional status will repeat TSH. Glaucoma: continue eye drops VTE: for history of pulmonary embolism and has an IVC filter. Continue rivaroxaban MS: no active medications Stage IV Uterine cancer: follows Dr. Jain. DVT prophylaxis: Not indicated as patient is on Xarelto Code DNRCCA, DNI Disposition: Plan for long term facility. Waiting on insurance authorization. Allergies/Procedures Done in Hospital Allergies doxorubicin Allergy (Severe, Verified 06/26/23 20:23) Anaphylaxis codeine Allergy (Verified 06/26/23 20:23) Hives methylprednisolone Allergy (Verified 06/26/23 20:23) Hives Sulfa (Sulfonamide Antibiotics) Allergy (Verified 06/26/23 20:23) Hives erythromycin base Adverse Reaction (Verified 06/26/23 20:23) Upset Stomach Procedures: None Type of Care/Length of Stay Estimated LOS: Convalescent Care Less Than 30 days Type of Care Needed: Skilled Rehab Potential: Good Prognosis: Fair Additional Orders/Day of Discharge Day of Discharge: 06/29/23 Dietary and Speech Recommendations Dietitian Recommendations/Changes: Continue with Regular diet for liberalization. Continue with Ensure Plus High Protein 120mL 4x/day with medpass. Will add beneprotein to applesauce with breakfast and Magic Cup at lunch and dinner to further increase oral intakes. Discharge Plan Admission Admit Date/Time: 06/26/23 23:26 Primary Reason for Your Visit: debility Attending Provider: Ethan Duarte Primary Care Provider: Bernardino Min Chi Consulting Providers: Jason Arteaga Discharge Orders/Prescriptions Prescriptions: Continued sertraline 100 MG tablet 125 mg PO DAILY Patient Comments: TAKE 1 TABLET BY MOUTH EVERY DAY cholecalciferol (vitamin D3) [Vitamin D3] 1,000 UNIT tablet 1,000 unit PO DAILY multivitamin with folic acid [Thera] 1 TABLET tablet 1 tab PO DAILY levothyroxine 25 mcg tablet 25 mcg PO DAILY methenamine hippurate 1 gram tablet 1 g PO BID Patient Comments: TAKE 1 TABLET BY MOUTH TWICE A DAY WITH MEALS brimonidine 0.2 % drops 2 drp RIGHT EYE TID Patient Comments: INSTILL 1 DROP INTO RIGHT EYE 3 TIMES A DAY mirtazapine 15 mg tablet 15 mg PO QHS Patient Comments: 1 tablet by mouth once a day polyethylene glycol 3350 [Miralax] 17 gram/dose Powder 17 g PO DAILY latanoprost 0.005 % drops 1 drp EACH EYE HS Xarelto 20 mg Tablet 20 mg PO DINNER 30 Days Qty: 30 0RF Referrals / Follow Up: Bernardino Min Chi, MD [Primary Care Provider] - Within 2 Weeks Disposition Disposition (needs filled in before D/C Order can be placed): Residential Facility
[2023-06-29 08:30] VITALS: O2SAT 94
[2023-06-29] MEDS: Cholecalciferol (VIT D3) 25 MCG TABLET (1,000 UNITS) PO (09:58)
[2023-06-29] MEDS: Methenamine Hippurate 1 GM Tablet PO (09:58)
[2023-06-29] MEDS: Ensure Plus High Protein 120 ML LIQUID PO ×2 (09:58→13:31)
[2023-06-29] MEDS: Polyethylene Glycol 3350 17 GM PACKET PO (09:58)
[2023-06-29] MEDS: Sertraline 50 MG Tablet 125 MG PO (09:58)
[2023-06-29] MEDS: Menthol/Lanolin/Calamine/Znox 113 GM Tube 1 APPLIC TOPICAL (09:59)
--- NOTE | 2023-06-29 11:43 | CASEMGMT ---
Addendum entered by Emily Farley 06/29/23 13:21: Social Work Precert has been obtained. Per physician, pt is ready for discharge today. Pt notified and agreeable with plan and states she will notify her family. Discharge orders have been faxed to TCU and Emelyn notified of discharge today. Disposition: TCU, skilled level of care [facility] Original Note: Social Work SW spoke with Emelyn in TCU and TCU is able to accept pt and precert has been started. SW updated pt and daughter in law. Plan: TCU, pending precert [facility]
[2023-06-29 11:49] VITALS: BP 149/70; PULSE 88; RESP 18; TEMP 36.8; O2SAT 98
--- NOTE | 2023-06-29 12:10 | PCM.DC.SUM ---
Providers Date of Admission: 06/26/23 Primary Care Physician: Dr. Bernardino Min MD Consultations 06/27/23 02:22 Consult: Onc/Wound/operational test mechanic Routine Comment: Reason for Consult:: left groin stitches Comments:: pt states has had awhile wondering if need to come out Reason For Visit: DEBILITY Diagnosis Discharge Diagnosis (1) Declining functional status: Status: Acute Code(s): R53.81 - Other malaise Plan: Fallen several times this past week. Multifactorial due to severe multiple medical comorbidities (MS, stage IV uterine cancer) and complicated by dehydration. Correct the dehydration PT OT eval. Plan Chronic conditions: Hypothyroidism: TSH on 09/28/22 was normal. With declining functional status will repeat TSH. Glaucoma: continue eye drops VTE: for history of pulmonary embolism and has an IVC filter. Continue rivaroxaban MS: no active medications Stage IV Uterine cancer: follows Dr. Jain. DVT prophylaxis: Not indicated as patient is on Xarelto Code DNRCCA, DNI Disposition: Plan for [facility] facility. Medications at Discharge Home Medications cholecalciferol (vitamin D3) 25 mcg (1,000 unit) tablet (Vitamin D3) 1,000 unit PO DAILY supplement 09/08/18 multivitamin with folic acid 400 mcg tablet (Thera) 1 tab PO DAILY supplement 09/08/18 sertraline 100 mg tablet 125 mg PO DAILY mental health 09/08/18 brimonidine 0.2 % eye drops 2 drp RIGHT EYE TID glaucoma 08/31/22 levothyroxine 25 mcg tablet 25 mcg PO DAILY thyroid 08/31/22 methenamine hippurate 1 gram tablet 1 g PO BID Bladder 08/31/22 mirtazapine 15 mg tablet 15 mg PO QHS sleep 08/31/22 polyethylene glycol 3350 17 gram/dose oral powder (Miralax) 17 g PO DAILY constipation 08/31/22 latanoprost 0.005 % eye drops 1 drp EACH EYE Eye health 09/11/22 rivaroxaban 20 mg tablet (Xarelto) 20 mg PO DINNER BLOOD THINNER 30 days #30 tabs 09/16/22 Hospital Course Operations None Procedures None Medical Records Data Medical Nutrition Assessment Dietitian: Malnutrition Criteria Met Start: 06/27/23 13:28 Freq: Status: Active Protocol: Document 06/27/23 13:28 [facility] (Rec: 06/27/23 13:28 [facility] [id number]) Nutrition Malnutrition Evidence of Malnutrition Exists Yes Malnutrition (severe): Chronic Evidenced By Suboptimal Energy Intake ( Severe),Weight Loss (Severe) Clinical Problem Chronic Disease or Condition Related Malnutrition Etiology related to decreased ability to consume sufficient energy to meet estimated nutrient needs Signs/Symptoms as evidenced by significant weight loss of 12lb, or 10.3%, in ~3.5 months based 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 Status Active Problem Recommendation Dietitian Recommendations/Changes Continue with Regular diet for liberalization. Continue with Ensure Plus High Protein 120mL 4x/day with medpass. Will add beneprotein to applesauce with breakfast and Magic Cup at lunch and dinner to further increase oral intakes. Weight / BMI Weight Weight: 48 kg Body Mass Index (BMI) 20.6 ABG / Lab / Microbiology Data 06/27/23 08:05 06/27/23 08:05 Microbiology: Microbiology 06/28/23 06:40 Urine, Clean Catch Urine Culture - Preliminary Culture exhibits no growth. 06/26/23 20:55 Nasal Secretion SARS-CoV-2 & FLU Antigen (Rapid) - Final D/C Instructions Discharge Diet: No restrictions Meaningful Use Info Meaningful Use Diagnoses (Choose all that apply): None applicable Discharge Plan Admission Admit Date/Time: 06/26/23 23:26 Primary Reason for Your Visit: debility Attending Provider: Ethan Duarte Primary Care Provider: Bernardino Min Chi Consulting Providers: Jason Arteaga Discharge Orders/Prescriptions Prescriptions: Continued sertraline 100 MG tablet 125 mg PO DAILY Patient Comments: TAKE 1 TABLET BY MOUTH EVERY DAY cholecalciferol (vitamin D3) [Vitamin D3] 1,000 UNIT tablet 1,000 unit PO DAILY multivitamin with folic acid [Thera] 1 TABLET tablet 1 tab PO DAILY levothyroxine 25 mcg tablet 25 mcg PO DAILY methenamine hippurate 1 gram tablet 1 g PO BID Patient Comments: TAKE 1 TABLET BY MOUTH TWICE A DAY WITH MEALS brimonidine 0.2 % drops 2 drp RIGHT EYE TID Patient Comments: INSTILL 1 DROP INTO RIGHT EYE 3 TIMES A DAY mirtazapine 15 mg tablet 15 mg PO QHS Patient Comments: 1 tablet by mouth once a day polyethylene glycol 3350 [Miralax] 17 gram/dose Powder 17 g PO DAILY latanoprost 0.005 % drops 1 drp EACH EYE HS Xarelto 20 mg Tablet 20 mg PO DINNER 30 Days Qty: 30 0RF Referrals / Follow Up: Bernardino Min Chi, MD [Primary Care Provider] - Within 2 Weeks Disposition Disposition (needs filled in before D/C Order can be placed): [facility] Facility Charges/Coding Visit Charges Inpatient E&M: 69943 Disch Hosp
--- NOTE | 2023-06-29 13:55 | NURSING ---
report called to [facility] nurse
== END 2023-06-29 14:20 | disposition skilled nursing facility (03) ==
LOC: ED 23:37 → MS3 23:44
PROVIDERS: Admitting Provider Hospitalist; Emergency Provider Emergency Medicine; PCP Family Medicine Geriatric Medicine
DX: E86.0 Dehydration (principal); C79.9 Secondary malignant neoplasm of unspecified site; G35 Multiple sclerosis; C55 Malignant neoplasm of uterus, part unspecified; S09.90XD Unspecified injury of head, subsequent encounter; I10 Essential (primary) hypertension; Z79.01 Long term (current) use of anticoagulants; R53.81 Other malaise; Z86.711 Personal history of pulmonary embolism; W19.XXXD Unspecified fall, subsequent encounter; Z79.899 Other long term (current) drug therapy; Z79.890 Hormone replacement therapy; H40.9 Unspecified glaucoma
CPT/HCPCS: 36415; 36591; 70450; 80048; 80053; 81001; 82306; 84443; 84484; 85025; 87086; 87428; 93005; 94668; 96360; 96361; 97110; 97162; 97165; 97530; 97535; 97802; 99221; 99285; J7030; A4216; G0378

== ENCOUNTER 2023-06-29 14:29 | Inpatient (IN) | payer MEDICARE, SELFPAY ==
[2023-06-29 14:42] VITALS: BP 136/75; PULSE 86; RESP 18; TEMP 36.7; O2SAT 93; BMI 21.7
[2023-06-29] MEDS: Ensure Plus High Protein 120 ML LIQUID PO ×2 (16:15→20:36)
[2023-06-29] MEDS: Rivaroxaban 20 MG Tablet PO (17:44)
--- NOTE | 2023-06-29 20:10 | HP.PCM_ITS ---
HPI - General General Date of Admission: 06/29/23 Date of Service: 06/29/23 Chief Complaint: Here for rehabilitation. HPI Narrative 06/26/2023 LAKESHIA OSEGUERA, is a 77 Female who presents to [facility] Emergency Department with weakness, frequent falls. Generalized weakness for 1 week. On treatment for metastatic uterine cancer per Dr. Jain. Immunotherapy infusion 1 week prior, plus oral medications. Oral medications intolerable, stopped. Fallen 4 times in 1 week, hit head earlier, but not on day of presentation. on Xarelto for pulmonary embolism. WBC 8.1, Hemoglobin 10.8, LFT okay, Troponin 8. CT head okay, Urinalysis negative. Not safe to go home alone. 06/26/2023 Admit to Hospital. PT/OT for debility. IV fluids for dehydration. 06/27/2023 Feels okay. Correct dehydration. PT/OT SNF. 06/28/2023 Feels well, no overnight events. PT/OT for TCU. 06/29/2023 Admit to TCU with debility, here for rehabilitation, strengthening, prior to discharge home alone. Resident appears well, eating supper, she ordered pizza. [facility] Medical History Brain bleed Cancer Depression DVT (deep venous thrombosis) Glaucoma Hypertension Hypothyroidism Multiple sclerosis Presence of IVC filter Pulmonary embolism Pulmonary embolism Pulmonary nodule Uterine cancer Home Medications cholecalciferol (vitamin D3) 25 mcg (1,000 unit) tablet (Vitamin D3) 1,000 unit PO DAILY supplement 09/08/18 [History Last Taken 06/28/23 07:55] multivitamin with folic acid 400 mcg tablet (Thera) 1 tab PO DAILY supplement 09/08/18 [History Last Taken 06/29/23 08:05] sertraline 100 mg tablet 125 mg PO DAILY mental health 09/08/18 [History Last Taken 06/28/23 07:55] brimonidine 0.2 % eye drops 2 drp RIGHT EYE TID glaucoma 08/31/22 [History Last Taken 06/29/23 05:35] levothyroxine 25 mcg tablet 25 mcg PO DAILY thyroid 08/31/22 [History Last Taken 06/29/23 05:35] methenamine hippurate 1 gram tablet 1 g PO BID Bladder 08/31/22 [History Last Taken 06/28/23 20:50] mirtazapine 15 mg tablet 15 mg PO QHS sleep 08/31/22 [History Last Taken 06/28/23 20:50] polyethylene glycol 3350 17 gram/dose oral powder (Miralax) 17 g PO DAILY constipation 08/31/22 [History Last Taken 06/28/23 19:55] latanoprost 0.005 % eye drops 1 drp EACH EYE Eye health 09/11/22 [History Last Taken 06/28/23 20:50] rivaroxaban 20 mg tablet (Xarelto) 20 mg PO DINNER BLOOD THINNER 30 days #30 tabs 09/16/22 [Rx Last Taken 06/28/23 16:40] Allergy/AdvReac Type Severity Reaction Status Date / Time doxorubicin Allergy Severe Anaphylaxis Verified 06/26/23 20:23 codeine Allergy Hives Verified 06/26/23 20:23 methylprednisolone Allergy Hives Verified 06/26/23 20:23 Sulfa (Sulfonamide Allergy Hives Verified 06/26/23 20:23 Antibiotics) erythromycin base AdvReac Upset Verified 06/26/23 20:23 Stomach Family History Other Dementia Heart disease Surgical History H/O: hysterectomy History of section History of embolic filter insertion Social History household members: none housing: house Smoking Status: Never smoker alcohol intake: never substance use type: does not use ROS Constitutional Constitutional: Denies chills, fever(s) or weight gain ENT HEENT: Denies headache(s), nasal congestion or nasal discharge Cardiovascular Cardiovascular: Denies chest pain or palpitations Respiratory/Chest Respiratory/Chest: Denies cough, excessive phlegm production or shortness of breath with exertion Gastrointestinal Gastrointestinal: Denies abdominal pain, nausea or vomiting Genitourinary Genitourinary: Denies dysuria Musculoskeletal Musculoskeletal: Denies joint pain or joint swelling Integumentary Integumentary: Denies rash or wounds Neurologic Neurologic: Denies focal weakness, numbness or tingling Psychiatric Psychiatric: Denies anxiety, auditory hallucinations, depression, homicidal ideation or suicidal ideation Vital Signs Vital Signs Vital Signs: 06/29/23 14:42 06/29/23 14:42 Temperature 98.1 F Temperature Source Temporal Pulse Rate 86 Pulse Rhythm Regular Pulse Strength Normal (2+) Respiratory Rate 18 Respiratory Effort Normal Non-Labored Respiratory Depth Normal Respiratory Pattern Normal Blood Pressure 136/75 H Blood Pressure Mean 95 Blood Pressure Source Monitor Blood Pressure Position Sitting Blood Pressure Location Left Arm Pulse Ox 93 Oxygen Delivery Method Room Air Weight Weight: 50.303 kg Body Mass Index (BMI) 21.7 Physical Exam Const alert General Appearance: cooperative HEENT normocephalic Eyes PERRL and EOMs intact bilaterally Neck supple, no JVD and no carotid bruits Resp normal respiratory effort, normal air movement and clear to auscultation bilaterally Cardio regular rate and regular rhythm GI normal to inspection, nondistended, normoactive bowel sounds, non-tender and non-distended Extremity normal capillary refill General Extremity: Negative for edema Skin no rashes or lesions noted General Skin Exam: no breakdown Psych affect normal Appearance: appropriate Assessment & Plan Assessment/Plan (1) Debility: (2) Weakness: (3) Falls frequently: (4) Dehydration: (5) Cancer, uterine: (6) Multiple sclerosis: (7) Depression: (8) Glaucoma: (9) Hypothyroidism: (10) Recurrent urinary tract infection: (11) Appetite loss: (12) Hypokalemia: (13) Recurrent deep vein thrombosis (DVT): PLAN: Plan 77 year old female with below past medical history significant for metastatic u terine cancer, hospitalized for weakness, falls, dehydration, admitted to TCU with debility, here for rehabilitation, strengthening, prior to discharge home alone. * Debility - PT/OT. * Pain - Tylenol 1000mg q6 prn pain (1-10). * Bowel - Miralax 17gm daily, senna/colace 1 tablet bid prn. * Adult immunization - Administer pneumonia vaccine, covid19 vaccine, flu vaccine as appropriate. * DVT prophylaxis - on Xarelto. * Glaucoma - Brimonidine 0.2% 2gtt OD TID, Latanoprost 0.05% 1gtt ou qhs. * Vitamin D deficiency - D3 25mcg daily. * Nutrition - Ensure Plus 120ml 4x/day, MVI daily. * Hypothyroidism - Levothyroxine 25mcg daily. * Recurrent UTI - Methenamine 1gm bid. 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 * Recurrent DVT - Xarelto 20mg daily. * Depression - Sertraline 125mg daily. 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
[2023-06-29] MEDS: Latanoprost 0.005% 1 Bottle 1 DRP EACH EYE (20:34)
[2023-06-29] MEDS: Methenamine Hippurate 1 GM Tablet PO (20:35)
[2023-06-29] MEDS: Mirtazapine 15 MG Tablet PO (20:36)
[2023-06-29] MEDS: BRIMONIDINE 0.2% 5ML BOTTLE 2 DRP RIGHT EYE (20:37)
[2023-06-30] MEDS: Ensure Plus High Protein 120 ML LIQUID PO ×4 (05:37→21:28)
[2023-06-30] MEDS: BRIMONIDINE 0.2% 5ML BOTTLE 2 DRP RIGHT EYE ×3 (05:38→21:27)
[2023-06-30] MEDS: Levothyroxine 25 MCG TABLET PO (05:38)
[2023-06-30 05:54] LABS: Absolute Lymphocyte Count 1.36 X10^3/uL (0.83-4.51); Absolute Neutrophil Count 4.6 X10^3/uL (2.0-7.7); Basophil# 0.03 X10^3/uL; Basophil% 0.4 % (0-1); Eosinophil# 0.45 X10^3/uL; Eosinophils% 6.4 % (0-5); Hematocrit 35.2 % (37-47); Hemoglobin 10.4 g/dL (12.0-15.0); Lymphocyte # 1.36 X10^3/ul (0.83-4.51); Lymphocyte % 19.2 % (19-41); Mean Corp Hgb Conc 29.5 g/dL (32-36); Mean Corpuscular Hgb 24.9 pg (27.0-32.0); Mean Corpuscular Volume 84.4 fL (81-99); Mean Platelet Vol. 8.9 fl (6.2-12.0); Monocyte% 8.5 % (0-10); NRBC Flagged by Analyzer 0 % (0-5); Neutrophil % 65.1 % (47-70); Platelet Count 398 K/mm3 (150-450); RBC Distribution Width CV 17.6 % (11.6-14.6); RBC Distribution Width SD 52.2 fl (35.1-43.9); Red Blood Count 4.17 M/mm3 (4.2-5.4); White Blood Count 7.1 K/mm3 (4.4-11.0)
[2023-06-30 06:09] VITALS: O2SAT 97
[2023-06-30 06:18] LABS: Anion Gap 6 (5-15); BUN 21 mg/dL (7-18); BUN/Creat Ratio 30.4 RATIO (10-20); Calcium,Total 8.4 mg/dL (8.5-10.1); Chloride 110 mmol/L (98-107); Creatinine, Serum 0.69 mg/dL (0.55-1.02); EST Glomerular Filtration Rate 88 mL/min (>60); Est Glom Filt Rate - Afr Amer 106 mL/min (>60); Estimated Creatinine Clearance 34.91 ml/min; Glucose 110 mg/dL (74-106); Potassium 3.7 mmol/L (3.5-5.1); Sodium Level 141 mmol/L (136-145)
[2023-06-30] MEDS: 0.9% Saline Lock 10 ML Syringe IV (10:04)
[2023-06-30] MEDS: Polyethylene Glycol 3350 17 GM PACKET PO (10:39)
[2023-06-30] MEDS: Sertraline 50 MG Tablet 125 MG PO (10:40)
[2023-06-30] MEDS: Methenamine Hippurate 1 GM Tablet PO ×2 (10:41→21:27)
[2023-06-30] MEDS: Cholecalciferol (VIT D3) 25 MCG TABLET (1,000 UNITS) PO (10:41)
[2023-06-30] MEDS: Tuberculin,Purif.prot.deriv. 50 TU/ML Vial 0.1 ML ID (10:56)
[2023-06-30] MEDS: Multivitamins,Therapeutic Tablet 1 TABLET PO (11:39)
--- NOTE | 2023-06-30 12:19 | CASEMGMT ---
Social Work Met with patient to complete initial assessment. Pt known to this worker from previous stay. Verified contacts and code status as DNR-CCA, no intubation. SW requested for sons to bring copies of pt's advanced directives. Son is out of town for work until Wednesday, but pt can ask son to bring them next week. SW educated to [facility] insurance with NRD 07/05 and continued stay is not guaranteed with each review. Pt's goal is to return home at [facility]. Pt used [facility] prior. SW will continue to follow for DC planning. Dipika Hall, DAVID VIDEO TECHNICIAN
[2023-06-30 15:43] VITALS: BP 154/87; PULSE 93; RESP 16; TEMP 36.3; O2SAT 94
[2023-06-30] MEDS: Rivaroxaban 20 MG Tablet PO (16:41)
[2023-06-30] MEDS: Latanoprost 0.005% 1 Bottle 1 DRP EACH EYE (21:27)
[2023-06-30] MEDS: Mirtazapine 15 MG Tablet PO (21:28)
[2023-07-01] MEDS: BRIMONIDINE 0.2% 5ML BOTTLE 2 DRP RIGHT EYE ×3 (05:58→20:30)
[2023-07-01] MEDS: Levothyroxine 25 MCG TABLET PO (05:58)
[2023-07-01] MEDS: Polyethylene Glycol 3350 17 GM PACKET PO (09:45)
[2023-07-01] MEDS: Sertraline 50 MG Tablet 125 MG PO (09:45)
[2023-07-01] MEDS: Cholecalciferol (VIT D3) 25 MCG TABLET (1,000 UNITS) PO (09:46)
[2023-07-01] MEDS: Methenamine Hippurate 1 GM Tablet PO ×2 (09:46→20:29)
[2023-07-01] MEDS: Ensure Plus High Protein 120 ML LIQUID PO ×3 (11:31→20:29)
[2023-07-01] MEDS: Multivitamins,Therapeutic Tablet 1 TABLET PO (11:32)
[2023-07-01 14:01] VITALS: BP 120/77; PULSE 96; RESP 16; TEMP 36.2; O2SAT 102
--- NOTE | 2023-07-01 14:07 | PHA.CONS_ITS ---
TCU RX Drug Regimen Review Subjective/Objective Subjective/Objective: Subjective: 77 YOF admitted to TCU on 06/29/23 s/p hospitalization at [facility] secondary to multiple falls, weakness. Patient with history of poor appetite and dehydration, got fluids while admitted to [facility]. Patient also has a history of hitting her head when falling, pt on care home anticoagulation with Xarelto due to history of pulmonary embolism. Admitted to TCU for strengthening and rehabilitation prior to discharge home where she resides alone. Objective: Allergies doxorubicin Allergy (Severe, Verified 06/26/23 20:23) Anaphylaxis codeine Allergy (Verified 06/26/23 20:23) Hives methylprednisolone Allergy (Verified 06/26/23 20:23) Hives Sulfa (Sulfonamide Antibiotics) Allergy (Verified 06/26/23 20:23) Hives erythromycin base Adverse Reaction (Verified 06/26/23 20:23) Upset Stomach Current Medications Generic Name Dose Route Start Last Admin Trade Name Freq PRN Reason Stop Dose Admin Acetaminophen 1,000 mg 06/29/23 20:24 Acetaminophen 500 Mg Tablet PO Q6H PRN PRN Pain Score 1-10 Brimonidine Tartrate 2 drp 06/29/23 22:00 07/01/23 05:58 Brimonidine 0.2% 5ml Bottle RIGHT EYE 2 drp TID BHUPINDER Administration Cholecalciferol 25 mcg 06/30/23 10:00 07/01/23 09:46 Cholecalciferol (Vit D3) 25 Mcg Tablet (1,000 Units) PO 25 mcg DAILY BHUPINDER Administration Heparin Sodium (Beef Lung) 50 units 06/29/23 14:45 06/30/23 10:12 Heparin Pf Lock 10 Units/Ml 50 Units/5 Ml Syringe IV 50 units UD PRN Administration Port-a-Cath (VAD)Heparin Flush Latanoprost 1 drp 06/29/23 22:00 06/30/23 21:27 Latanoprost 0.005% 1 Bottle EACH EYE 1 drp HS BHUPINDER Administration Levothyroxine Sodium 25 mcg 06/30/23 06:00 07/01/23 05:58 Levothyroxine 25 Mcg Tablet PO 25 mcg DAILY@0600 BHUPINDER Administration Methenamine Hippurate 1 gm 06/29/23 22:00 07/01/23 09:46 Methenamine Hippurate 1 Gm Tablet PO 1 gm BID BHUPINDER Administration Mirtazapine 15 mg 06/29/23 22:00 06/30/23 21:28 Mirtazapine 15 Mg Tablet PO 15 mg QHS BHUPINDER Administration Multivitamins 1 tablet 06/30/23 12:00 07/01/23 11:32 Multivitamins,Therapeutic Tablet PO 1 tablet LUNCH BHUPINDER Administration Nutritional Formula (Lactose Free) 120 ml 06/29/23 17:00 07/01/23 11:31 Ensure Plus High Protein 120 Ml Liquid PO 120 ml 4X/DAY BHUPINDER Administration Polyethylene Glycol 17 gm 06/30/23 10:00 07/01/23 09:45 Polyethylene Glycol 3350 17 Gm Packet PO 17 gm DAILY BHUPINDER Administration Rivaroxaban 20 mg 06/29/23 17:00 06/30/23 16:41 Rivaroxaban 20 Mg Tablet PO 20 mg DINNER BHUPINDER Administration Senna/Docusate Sodium 1 tablet 06/29/23 20:24 Senna/Docusate Sodium 1 Tablet PO BID PRN PRN Constipation Sertraline HCl 125 mg 06/30/23 10:00 07/01/23 09:45 Sertraline 50 Mg Tablet PO 125 mg DAILY BHUPINDER Administration Sodium Chloride 10 - 40 ml 06/29/23 14:45 06/30/23 10:04 0.9% Saline Lock 10 Ml Syringe IV 10 ml UD PRN Administration Port-a-Cath (VAD) Flush Tuberculin PPD 0.1 ml 07/07/23 10:00 Tuberculin,Purif.Prot.Deriv. 50 Tu/Ml Vial ID 07/07/23 10:01 X1 ONE Problem List (Updated 06/29/23 @ 20:[address] Bernardino Min MD) Recurrent deep vein thrombosis (DVT) (Acute) Appetite loss (Acute) Cancer, uterine (Acute) Multiple sclerosis (Acute) Weakness (Acute) Falls frequently (Acute) Hypokalemia (Acute) Depression (Acute) Recurrent urinary tract infection (Acute) Hypothyroidism (Acute) Glaucoma (Acute) Debility (Acute) Vital Signs Temp Pulse Resp BP Pulse Ox O2 Del Method 97.1 F L 96 16 120/77 102 Room Air 07/01/23 14:01 07/01/23 14:01 07/01/23 14:01 07/01/23 14:01 07/01/23 14:01 07/01/23 14:01 Oxygen Delivery Method Room Air Weight: 50.303 kg Body Mass Index (BMI) 21.7 Sodium 141 mmol/L (136-145) 06/30/23 05:20 Potassium 3.7 mmol/L (3.5-5.1) 06/30/23 05:20 Chloride 110 mmol/L (98-107) H 06/30/23 05:20 Carbon Dioxide 25.0 mmol/L (21.0-32.0) 06/30/23 05:20 Anion Gap 6 (5-15) 06/30/23 05:20 BUN 21 mg/dL (7-18) H 06/30/23 05:20 Creatinine 0.69 mg/dL (0.55-1.02) 06/30/23 05:20 Est GFR (MDRD) Af Amer 106 mL/min (>60) 06/30/23 05:20 Est GFR (MDRD) Non-Af 88 mL/min (>60) 06/30/23 05:20 BUN/Creatinine Ratio 30.4 RATIO (10-20) H 06/30/23 05:20 Glucose 110 mg/dL (74-106) H 06/30/23 05:20 Assessment/Plan: 1. Pain: Tylenol 1000mg PO Q6h PRN Pain 1-10. Please continue to monitor for increased/decreased S/S pain, PRN medication usage. - To date, the patient has required zero doses of PRN medication. Patient's pain appears controlled at this time. 2. Glaucoma: Brimonidine 2gtt OD TID, Xalatan 1gtt OU QHS. Please continue to monitor for eye irritation/redness, follow-up with eye doctor as clinically indicated. 3. History of DVT/ Uterine Cancer: Xarelto 20mg PO Daily. Patient follows up outpatient for oncology diagnosis, not actively getting oral treatment/ infusions at this time with admission. Please continue to monitor for S/S bleeding/bruising, H/H (Hgb 10.4, Hct 35.2 on 06/30). Patient with history of uterine cancer, please evaluate if Lovenox would be the best agent for the patient given history of cancer, thank you. 4. Hypothyroidism: Synthroid 25mcg PO daily. Please continue to monitor thyroid function ( TSH 3.08, WNL on 06/27/23), S/S hypothyroidism. 5. Recurrent UTI/ UTI Prophylaxis: Methenamine 1g PO BID. Please continue to monitor for signs of recurrent infection, nausea, liver function (LFT WNL on 06/26). 6. General Wellness: Vitamin D 25mcg PO Daily, MVI 1 tab PO Daily. 7. Bowel: Miralax 17g PO Daily, Senna/docusate 1 tab PO BID PRN. Please continue to monitor for increased/decreased constipation and/or diarrhea. -Per EMR review, the patient has not had a BM since admission. Please consider administering PRN senna/docusate to help facilitate a BM since its been >48hrs, thank you. Assessment/Plan for indications treated with psychotropic medications: 1. Appetite loss: Remeron 15mg PO QHS. Please consider a GDR by 12/2023 if clinically indicated, thank you. 2. Depression: Zoloft 125mg PO Daily. Please evaluate and consider a GDR by 12/2023 if clinically indicated, thank you. Medical chart and medication regimen reviewed. The following medication irregul arities or issues were identified: 1. Depression: Zoloft 125mg PO Daily. Please evaluate and consider a GDR by 12/2023 if clinically indicated, thank you. 2. Appetite loss: Remeron 15mg PO QHS. Please consider a GDR by 12/2023 if clinically indicated, thank you. 3. History of DVT: Xarelto 20mg PO Daily. Patient with history of uterine cancer. Please evaluate if Lovenox would be the best agent for the patient given history of cancer per NCCN guidelines, thank you. Date Date of Note:: 07/01/23
--- NOTE | 2023-07-01 14:35 | NURSING ---
caught pt up walking from bathroom to recliner. pt stated i thought i was ok to get up on my own as long as i had my walker. educated pt on use of call light. pt stated ok.
[2023-07-01 16:00] VITALS: PULSE 87; RESP 16; O2SAT 93
[2023-07-01] MEDS: Rivaroxaban 20 MG Tablet PO (16:25)
[2023-07-01] MEDS: Senna/Docusate Sodium 1 Tablet PO (16:45)
[2023-07-01] MEDS: Mirtazapine 15 MG Tablet PO (20:29)
[2023-07-01] MEDS: Latanoprost 0.005% 1 Bottle 1 DRP EACH EYE (20:29)
[2023-07-02] MEDS: Levothyroxine 25 MCG TABLET PO (05:23)
[2023-07-02] MEDS: Ensure Plus High Protein 120 ML LIQUID PO ×4 (05:23→20:17)
[2023-07-02] MEDS: BRIMONIDINE 0.2% 5ML BOTTLE 2 DRP RIGHT EYE ×3 (05:24→20:22)
[2023-07-02] MEDS: Acetaminophen 500 MG Tablet 1000 MG PO ×3 (08:20→22:27)
[2023-07-02] MEDS: Polyethylene Glycol 3350 17 GM PACKET PO (08:21)
[2023-07-02] MEDS: Methenamine Hippurate 1 GM Tablet PO ×2 (08:21→20:17)
[2023-07-02] MEDS: Sertraline 50 MG Tablet 125 MG PO (08:22)
[2023-07-02] MEDS: Cholecalciferol (VIT D3) 25 MCG TABLET (1,000 UNITS) PO (08:22)
[2023-07-02] MEDS: Multivitamins,Therapeutic Tablet 1 TABLET PO (11:57)
--- NOTE | 2023-07-02 13:41 | NURSING ---
NO BM FOR 4 DAYS. PRUNE JUICE GIVEN AT BREAKFAST WITH POSITIVE RESULTS.
[2023-07-02 15:39] VITALS: BP 137/73; PULSE 89; RESP 20; TEMP 36.5; O2SAT 93
[2023-07-02] MEDS: Rivaroxaban 20 MG Tablet PO (16:28)
[2023-07-02] MEDS: Mirtazapine 15 MG Tablet PO (20:17)
[2023-07-02] MEDS: Latanoprost 0.005% 1 Bottle 1 DRP EACH EYE (20:17)
[2023-07-03] MEDS: Acetaminophen 500 MG Tablet 1000 MG PO ×2 (04:32→23:53)
[2023-07-03] MEDS: Levothyroxine 25 MCG TABLET PO (05:24)
[2023-07-03] MEDS: Ensure Plus High Protein 120 ML LIQUID PO ×4 (05:24→20:17)
[2023-07-03] MEDS: BRIMONIDINE 0.2% 5ML BOTTLE 2 DRP RIGHT EYE ×3 (05:25→20:16)
[2023-07-03] MEDS: Methenamine Hippurate 1 GM Tablet PO ×2 (09:09→20:18)
[2023-07-03] MEDS: Polyethylene Glycol 3350 17 GM PACKET PO (09:10)
[2023-07-03] MEDS: Cholecalciferol (VIT D3) 25 MCG TABLET (1,000 UNITS) PO (09:10)
[2023-07-03] MEDS: Sertraline 50 MG Tablet 125 MG PO (09:10)
[2023-07-03] MEDS: Multivitamins,Therapeutic Tablet 1 TABLET PO (13:23)
[2023-07-03 15:01] VITALS: BP 144/75; PULSE 83; RESP 16; TEMP 36.5; O2SAT 93
[2023-07-03] MEDS: Rivaroxaban 20 MG Tablet PO (17:24)
[2023-07-03] MEDS: Latanoprost 0.005% 1 Bottle 1 DRP EACH EYE (20:17)
[2023-07-03] MEDS: Mirtazapine 15 MG Tablet PO ×2 (20:17)
[2023-07-03 20:25] VITALS: O2SAT 94
--- NOTE | 2023-07-04 02:56 | NURSING ---
Addendum entered by Leslie Johnson 07/04/23 06:55: Written communication left for Dr. Min regarding frequency and burning with urination. Original Note: Pt moved to room 20 as suction in room 3 was not functioning and pt wished to utilize the purewick this HS d/t urinary frequency.
[2023-07-04] MEDS: Levothyroxine 25 MCG TABLET PO (04:58)
[2023-07-04] MEDS: BRIMONIDINE 0.2% 5ML BOTTLE 2 DRP RIGHT EYE ×3 (04:58→22:59)
[2023-07-04] MEDS: Methenamine Hippurate 1 GM Tablet PO ×2 (09:16→22:59)
[2023-07-04] MEDS: Sertraline 50 MG Tablet 125 MG PO (09:16)
[2023-07-04] MEDS: Cholecalciferol (VIT D3) 25 MCG TABLET (1,000 UNITS) PO (09:16)
[2023-07-04] MEDS: Polyethylene Glycol 3350 17 GM PACKET PO (09:16)
[2023-07-04] MEDS: Acetaminophen 500 MG Tablet 1000 MG PO (10:10)
[2023-07-04] MEDS: Multivitamins,Therapeutic Tablet 1 TABLET PO (12:06)
[2023-07-04] MEDS: Ensure Plus High Protein 120 ML LIQUID PO ×3 (12:06→23:02)
[2023-07-04 14:54] VITALS: BP 116/58; PULSE 93; RESP 16; TEMP 37.1
--- NOTE | 2023-07-04 16:37 | NURSING ---
Pt C/O of sore throat Dr. Min updated N.O. for Covid Swab.
[2023-07-04] MEDS: Rivaroxaban 20 MG Tablet PO (16:39)
--- NOTE | 2023-07-04 16:45 | NURSING ---
Pt C/O of burning and frequency with urination. Dr. Pako tillman and N.O. for Urinalysis and Culture.
[2023-07-04 16:46] LABS: Bacteria 0 SEEN /hpf (None Seen); Mucous, Urine 0 SEEN /hpf (<or=2+); White Blood Cells 0 SEEN /hpf (0-5)
[2023-07-04 16:49] LABS: Color, Urine Yellow (Yellow); Glucose, Dipstick Normal (Normal); Ketone-Dipstick Negative (Negative); Leukocyte Esterase-Dipstick Negative /ul (Negative); Nitrite-Dipstick Negative (Negative); Occult Blood-Urine 150 /ul (Negative); Protein-Dipstick 30 mg/dl (Negative); Urine Bilirubin Dipstick Negative (Negative); Urine Clarity Clear (Clear); Urine Urobilinogen Normal (Normal)
[2023-07-04 16:58] LABS: Red Blood Cells-Urine 10-25 SEEN /hpf (0-5); Squamous Epithelial Cells - UA 0-5 SEEN /hpf (5-10)
[2023-07-04] MEDS: Latanoprost 0.005% 1 Bottle 1 DRP EACH EYE (22:59)
[2023-07-04 23:00] VITALS: O2SAT 95
[2023-07-05] MEDS: Ensure Plus High Protein 120 ML LIQUID PO ×4 (06:29→21:46)
[2023-07-05] MEDS: Levothyroxine 25 MCG TABLET PO (06:30)
[2023-07-05] MEDS: BRIMONIDINE 0.2% 5ML BOTTLE 2 DRP RIGHT EYE ×3 (06:30→21:49)
[2023-07-05] MEDS: Sertraline 50 MG Tablet 125 MG PO (09:02)
[2023-07-05] MEDS: Methenamine Hippurate 1 GM Tablet PO ×2 (09:02→21:46)
[2023-07-05] MEDS: Cholecalciferol (VIT D3) 25 MCG TABLET (1,000 UNITS) PO (09:02)
[2023-07-05] MEDS: Polyethylene Glycol 3350 17 GM PACKET PO (09:02)
[2023-07-05] MEDS: Multivitamins,Therapeutic Tablet 1 TABLET PO (12:23)
[2023-07-05 14:04] VITALS: BP 121/59; PULSE 88; RESP 18; TEMP 36.8; O2SAT 96
[2023-07-05] MEDS: Rivaroxaban 20 MG Tablet PO (16:26)
--- NOTE | 2023-07-05 16:55 | CASEMGMT ---
Addendum entered by Dipika Hall 07/06/23 09:11: YADY received call from RUBIO requesting pt DC 07/09 d/t appt scheduled for 07/09. SW agreed. RBUIO confirmed pt is active with [facility] palliative agency, not [facility]. Updated HHC, IDT, and insurance. SW phoned [facility] ([phone]) to update on DC date and they requested this worker fax DC paperwork. YADY completed. Plan: DC home 07/09 Original Note: Social Work SW spoke with pt about request to DC home. SW offered if insurance issued DC it would be 07/08. Pt requested to DC sooner. SW offered 07/07, so pt can still have POC mtg. Pt agreeable. Pt requesting to use [facility] whom she used prior. No DME needs. YADY noted Dr requested palliative referral. Pt stated she is already active with palliative. Son to transport at [place]. YADY updated [facility] of pt's discharge. YADY sent referral to [facility] via [employer]. Plan: DC home alone 07/08, [facility] PT/OT/ST Dipika Hall, HARPOON ENGAGEMENT PLANNING OPERATOR LINOLEUM FLOOR LAYER
--- NOTE | 2023-07-05 19:55 | DS.PCM_ITS ---
Providers Date of Admission: 06/29/23 Primary Care Physician: Dr. Bernardino Min MD Reason For Visit: DEBILITY Diagnosis Discharge Diagnosis (1) Debility: Status: Acute Code(s): R53.81 - Other malaise (2) Weakness: Status: Acute Code(s): R53.1 - Weakness (3) Falls frequently: Status: Acute Code(s): R29.6 - Repeated falls (4) Dehydration: Status: Resolved Code(s): E86.0 - Dehydration (5) Cancer, uterine: Status: Acute Code(s): C55 - Malignant neoplasm of uterus, part unspecified (6) Multiple sclerosis: Status: Acute Code(s): G35 - Multiple sclerosis (7) Depression: Status: Acute Code(s): F32.A - Depression, unspecified (8) Glaucoma: Status: Acute Code(s): H40.9 - Unspecified glaucoma (9) Hypothyroidism: Status: Acute Code(s): E03.9 - Hypothyroidism, unspecified (10) Recurrent urinary tract infection: Status: Acute Code(s): N39.0 - Urinary tract infection, site not specified (11) Appetite loss: Status: Acute Code(s): R63.0 - Anorexia (12) Hypokalemia: Status: Acute Code(s): E87.6 - Hypokalemia (13) Recurrent deep vein thrombosis (DVT): Status: Acute Code(s): I82.409 - Acute embolism and thrombosis of unspecified deep veins of unspecified lower extremity Plan 77 year old female with below past medical history significant for metastatic uterine cancer, hospitalized for weakness, falls, dehydration, admitted to TCU with debility, here for rehabilitation, strengthening, prior to discharge home alone. * Debility - PT/OT. * Pain - Tylenol 1000mg q6 prn pain (1-10). * Bowel - Miralax 17gm daily, senna/colace 1 tablet bid prn. * Adult immunization - Administer pneumonia vaccine, covid19 vaccine, flu vaccine as appropriate. * DVT prophylaxis - on Xarelto. * Glaucoma - Brimonidine 0.2% 2gtt OD TID, Latanoprost 0.05% 1gtt ou qhs. * Vitamin D deficiency - D3 25mcg daily. * Nutrition - Ensure Plus 120ml 4x/day, MVI daily. * Hypothyroidism - Levothyroxine 25mcg daily. * Recurrent UTI - Methenamine 1gm bid. * Appetite loss - Mirtazapine 15mg qhs, stable chronic custodial use, GDR not recommended. * Recurrent DVT - Xarelto 20mg daily. * Depression - Sertraline 125mg daily. stable chronic custodial use, GDR not recommended. Medications at Discharge Home Medications cholecalciferol (vitamin D3) 25 mcg (1,000 unit) tablet (Vitamin D3) 1,000 unit PO DAILY supplement 09/08/18 multivitamin with folic acid 400 mcg tablet (Thera) 1 tab PO DAILY supplement 09/08/18 sertraline 100 mg tablet 125 mg PO DAILY mental health 09/08/18 brimonidine 0.2 % eye drops 2 drp RIGHT EYE TID glaucoma 08/31/22 levothyroxine 25 mcg tablet 25 mcg PO DAILY thyroid 08/31/22 methenamine hippurate 1 gram tablet 1 g PO BID Bladder 08/31/22 mirtazapine 15 mg tablet 15 mg PO QHS sleep 08/31/22 polyethylene glycol 3350 17 gram/dose oral powder (Miralax) 17 g PO DAILY constipation 08/31/22 latanoprost 0.005 % eye drops 1 drp EACH EYE Eye health 09/11/22 rivaroxaban 20 mg tablet (Xarelto) 20 mg PO DINNER BLOOD THINNER 30 days #30 tabs 09/16/22 acetaminophen 500 mg tablet 1,000 mg (2 x 500 mg) PO Q6H PRN PRN Pain Score 1-10 #0 tabs 07/05/23 Hospital Course Operations None Procedures None Summary of Care Provided Minutes Spent on Discharge: 35 Hospital Course: 77 year old female with below past medical history significant for metastatic uterine cancer, hospitalized for weakness, falls, dehydration, admitted to TCU with debility, here for rehabilitation, strengthening, prior to discharge home alone. Discharge home alone 07/08/2023, [facility] PT/OT/ST. Physical Exam Const alert General Appearance: cooperative HEENT normocephalic Eyes PERRL and EOMs intact bilaterally Neck supple, no JVD and no carotid bruits Resp normal respiratory effort, normal air movement and clear to auscultation bilaterally Cardio regular rate and regular rhythm GI normal to inspection, nondistended, normoactive bowel sounds, non-tender and non-distended Extremity normal capillary refill General Extremity: Negative for edema Skin no rashes or lesions noted General Skin Exam: no breakdown Psych affect normal Appearance: appropriate Weight / BMI Weight Weight: 50.303 kg Body Mass Index (BMI) 21.7 ABG / Lab / Microbiology Data 06/30/23 05:20 06/30/23 05:20 Microbiology: Microbiology 07/04/23 12:50 Nasal Secretion SARS-CoV-2 Antigen (Rapid) - Final 06/30/23 06:00 Nasal Secretion SARS-CoV-2 Antigen (Rapid) - Final D/C Instructions Discharge Diet: No restrictions Discharge Activity: Return to Normal Activity, May Shower and Use Walker Weight Bearing Status: Weight bearing as tolerated Call your doctor if you observe: Fever of 101 or Higher, Inability to urinate, Inability to have a bowel movement, Shortness of breath, Dizziness, Fainting spells, Swelling in the ankles, Chest pain and Uncontrolled pain Additional Instructions: Discharge home alone 07/08/2023, [facility] PT/OT/ST. Meaningful Use Info Meaningful Use Diagnoses (Choose all that apply): None applicable Discharge Plan Admission Admit Date/Time: 06/29/23 14:29 Primary Reason for Your Visit: Debility. Attending Provider: Bernardino Min Chi Primary Care Provider: Bernardino Min Chi Instructions Additional Instructions / Restrictions: scharge home alone 07/08/2023, [facility] PT/OT/ST. Discharge Orders/Prescriptions Prescriptions: New acetaminophen 500 mg Tablet 1,000 mg PO Q6H PRN PRN (Reason: Pain Score 1-10) Qty: 0 0RF Continued sertraline 100 MG tablet 125 mg PO DAILY Patient Comments: TAKE 1 TABLET BY MOUTH EVERY DAY cholecalciferol (vitamin D3) [Vitamin D3] 1,000 UNIT tablet 1,000 unit PO DAILY multivitamin with folic acid [Thera] 1 TABLET tablet 1 tab PO DAILY levothyroxine 25 mcg tablet 25 mcg PO DAILY methenamine hippurate 1 gram tablet 1 g PO BID Patient Comments: TAKE 1 TABLET BY MOUTH TWICE A DAY WITH MEALS brimonidine 0.2 % drops 2 drp RIGHT EYE TID Patient Comments: INSTILL 1 DROP INTO RIGHT EYE 3 TIMES A DAY mirtazapine 15 mg tablet 15 mg PO QHS Patient Comments: 1 tablet by mouth once a day polyethylene glycol 3350 [Miralax] 17 gram/dose Powder 17 g PO DAILY latanoprost 0.005 % drops 1 drp EACH EYE HS Xarelto 20 mg Tablet 20 mg PO DINNER 30 Days Qty: 30 0RF Referrals / Follow Up: Bernardino Min Chi, MD [Primary Care Provider] - 07/07/23 3:00 pm Disposition Disposition (needs filled in before D/C Order can be placed): Home Health Service
[2023-07-05] MEDS: Latanoprost 0.005% 1 Bottle 1 DRP EACH EYE (21:43)
[2023-07-05] MEDS: Mirtazapine 15 MG Tablet PO (21:46)
[2023-07-06] MEDS: Acetaminophen 500 MG Tablet 1000 MG PO ×2 (01:47→11:48)
[2023-07-06] MEDS: Ensure Plus High Protein 120 ML LIQUID PO ×4 (05:08→21:14)
[2023-07-06] MEDS: Levothyroxine 25 MCG TABLET PO (05:08)
[2023-07-06] MEDS: BRIMONIDINE 0.2% 5ML BOTTLE 2 DRP RIGHT EYE ×3 (05:08→21:14)
[2023-07-06 05:16] VITALS: PULSE 87; RESP 16; O2SAT 92
[2023-07-06] MEDS: Methenamine Hippurate 1 GM Tablet PO ×2 (09:33→21:16)
[2023-07-06] MEDS: Cholecalciferol (VIT D3) 25 MCG TABLET (1,000 UNITS) PO (09:34)
[2023-07-06] MEDS: Sertraline 50 MG Tablet 125 MG PO (09:34)
[2023-07-06] MEDS: Polyethylene Glycol 3350 17 GM PACKET PO (09:34)
[2023-07-06 10:17] VITALS: BMI 21.6
--- NOTE | 2023-07-06 11:29 | CASEMGMT ---
Social Work BIMS () and PHQ-2 () completed for MDS assessment. Dipika Hall MSW GROUNDHAND
[2023-07-06] MEDS: Multivitamins,Therapeutic Tablet 1 TABLET PO (12:38)
[2023-07-06 12:46] VITALS: BP 153/74; PULSE 94; RESP 20; TEMP 36.7; O2SAT 95
[2023-07-06] MEDS: Rivaroxaban 20 MG Tablet PO (17:45)
[2023-07-06] MEDS: Mirtazapine 15 MG Tablet PO (21:16)
[2023-07-06] MEDS: Latanoprost 0.005% 1 Bottle 1 DRP EACH EYE (21:19)
[2023-07-07 05:58] LABS: Absolute Lymphocyte Count 1.14 X10^3/uL (0.83-4.51); Absolute Neutrophil Count 3.5 X10^3/uL (2.0-7.7); Basophil# 0.04 X10^3/uL; Basophil% 0.7 % (0-1); Eosinophil# 0.45 X10^3/uL; Eosinophils% 7.7 % (0-5); Hematocrit 37.7 % (37-47); Lymphocyte # 1.14 X10^3/ul (0.83-4.51); Lymphocyte % 19.6 % (19-41); Mean Corp Hgb Conc 29.2 g/dL (32-36); Mean Corpuscular Hgb 25.1 pg (27.0-32.0); Mean Corpuscular Volume 85.9 fL (81-99); Mean Platelet Vol. 9.2 fl (6.2-12.0); Monocyte# 0.65 X10^3/uL; Monocyte% 11.1 % (0-10); NRBC Flagged by Analyzer 0 % (0-5); Platelet Count 406 K/mm3 (150-450); RBC Distribution Width CV 17.9 % (11.6-14.6); RBC Distribution Width SD 55.6 fl (35.1-43.9); Red Blood Count 4.39 M/mm3 (4.2-5.4); White Blood Count 5.8 K/mm3 (4.4-11.0)
[2023-07-07] MEDS: Ensure Plus High Protein 120 ML LIQUID PO ×4 (06:21→22:05)
[2023-07-07] MEDS: Levothyroxine 25 MCG TABLET PO (06:22)
[2023-07-07] MEDS: BRIMONIDINE 0.2% 5ML BOTTLE 2 DRP RIGHT EYE ×3 (06:22→22:03)
[2023-07-07 07:02] LABS: Anion Gap 3 (5-15); BUN 25 mg/dL (7-18); BUN/Creat Ratio 33.5 RATIO (10-20); Calcium,Total 8.9 mg/dL (8.5-10.1); Chloride 105 mmol/L (98-107); Creatinine, Serum 0.75 mg/dL (0.55-1.02); EST Glomerular Filtration Rate 80 mL/min (>60); Est Glom Filt Rate - Afr Amer 97 mL/min (>60); Estimated Creatinine Clearance 34.91 ml/min; Glucose 104 mg/dL (74-106); Potassium 4.2 mmol/L (3.5-5.1); Sodium Level 137 mmol/L (136-145)
--- NOTE | 2023-07-07 08:46 | NURSING ---
Registration Scheduling Specialist Note; MDS for 07/06/2023 Complete
[2023-07-07] MEDS: Methenamine Hippurate 1 GM Tablet PO ×2 (09:13→22:05)
[2023-07-07] MEDS: Polyethylene Glycol 3350 17 GM PACKET PO (09:13)
[2023-07-07] MEDS: Cholecalciferol (VIT D3) 25 MCG TABLET (1,000 UNITS) PO (09:13)
[2023-07-07] MEDS: Sertraline 50 MG Tablet 125 MG PO (09:13)
[2023-07-07] MEDS: Tuberculin,Purif.prot.deriv. 50 TU/ML Vial 0.1 ML ID (09:14)
--- NOTE | 2023-07-07 09:16 | CASEMGMT ---
Addendum entered by Dipika Hall 07/07/23 10:19: Family had pt practice getting in and out of bed and pt needed rail assistance; pt requesting hospital bed or bed rail. SW educated to insurance not covering either DME but offered script for bed rail to waive taxes. Son agreeable to bed rail. SW provided script. Original Note: Social Work IDT met with patient, son and DIL and other son via conference call for care plan meeting. Discussed patient's progress in PT/OT/ST/SN. Confirmed DC date for 07/09 home with [facility] PT/OT/ST. No DME. Family wanted to ensure pt is safe at home alone. SW noted pt enjoys the attention and uses the help from staff if staff is there, even though pt can be independent. SW suggested hiring an aide for companionship at home. Family stated there is an DIRECTOR INDUSTRIAL that comes in the evening for 1-2 hrs for dinner and nighttime routine/companionship, also pt has several grandchildren that call her daily. Pt also uses medical alert at home. Family asking for home delivered meal options. SW provided resources for [facility]. No other concerns noted. Dipika Hall, DAVID WOOD MILLING MACHINE TENDER
[2023-07-07 10:00] VITALS: PULSE 105; O2SAT 95
[2023-07-07] MEDS: Multivitamins,Therapeutic Tablet 1 TABLET PO (11:59)
[2023-07-07 14:49] VITALS: BP 151/92; PULSE 79; RESP 16; TEMP 36.9; O2SAT 93
[2023-07-07] MEDS: Rivaroxaban 20 MG Tablet PO (17:24)
[2023-07-07] MEDS: Latanoprost 0.005% 1 Bottle 1 DRP EACH EYE (22:04)
[2023-07-07] MEDS: Mirtazapine 15 MG Tablet PO (22:06)
[2023-07-07] MEDS: Acetaminophen 500 MG Tablet 1000 MG PO (22:58)
[2023-07-08] MEDS: Ensure Plus High Protein 120 ML LIQUID PO ×4 (05:21→20:16)
[2023-07-08] MEDS: BRIMONIDINE 0.2% 5ML BOTTLE 2 DRP RIGHT EYE ×3 (05:21→20:14)
[2023-07-08] MEDS: Levothyroxine 25 MCG TABLET PO (05:21)
--- NOTE | 2023-07-08 08:20 | MDS.RN ---
Information for the mds was obtained from review of the clinical record, interview of resident, staff, and direct observation of resident's care.
[2023-07-08 09:38] VITALS: BP 127/86; PULSE 96; RESP 17; TEMP 36.4; O2SAT 93
[2023-07-08] MEDS: Cholecalciferol (VIT D3) 25 MCG TABLET (1,000 UNITS) PO (09:43)
[2023-07-08] MEDS: Polyethylene Glycol 3350 17 GM PACKET PO (09:43)
[2023-07-08] MEDS: Sertraline 50 MG Tablet 125 MG PO (09:44)
[2023-07-08] MEDS: Methenamine Hippurate 1 GM Tablet PO ×2 (09:44→20:10)
[2023-07-08] MEDS: Multivitamins,Therapeutic Tablet 1 TABLET PO (13:15)
[2023-07-08] MEDS: Acetaminophen 500 MG Tablet 1000 MG PO ×2 (15:16→23:27)
[2023-07-08] MEDS: Rivaroxaban 20 MG Tablet PO (17:29)
[2023-07-08] MEDS: Mirtazapine 15 MG Tablet PO (20:11)
[2023-07-08] MEDS: Latanoprost 0.005% 1 Bottle 1 DRP EACH EYE (20:17)
[2023-07-09] MEDS: BRIMONIDINE 0.2% 5ML BOTTLE 2 DRP RIGHT EYE (05:39)
[2023-07-09] MEDS: Levothyroxine 25 MCG TABLET PO (05:39)
[2023-07-09] MEDS: Ensure Plus High Protein 120 ML LIQUID PO (05:39)
[2023-07-09 06:55] VITALS: RESP 16
[2023-07-09 09:24] VITALS: BP 144/72; PULSE 88; RESP 17; TEMP 37.3; O2SAT 91
== END 2023-07-09 09:45 | disposition home health service (06) | DRG 641 ==
PROVIDERS: Admitting Provider Family Medicine Geriatric Medicine; PCP Family Medicine Geriatric Medicine; Referring Provider Family Medicine Geriatric Medicine; Visit Provider Family Medicine Geriatric Medicine
DX: E86.0 Dehydration (principal); C79.9 Secondary malignant neoplasm of unspecified site; N39.0 Urinary tract infection, site not specified; C55 Malignant neoplasm of uterus, part unspecified; G35 Multiple sclerosis; E03.9 Hypothyroidism, unspecified; I10 Essential (primary) hypertension; F32.A Depression, unspecified; E55.9 Vitamin D deficiency, unspecified; H40.9 Unspecified glaucoma; Z79.01 Long term (current) use of anticoagulants; Z79.899 Other long term (current) drug therapy; R29.6 Repeated falls; Z79.890 Hormone replacement therapy; Z86.718 Personal history of other venous thrombosis and embolism; Z86.711 Personal history of pulmonary embolism
CPT/HCPCS: 36415; 80048; 81001; 85025; 87086; 87088; 87811; 92523; 97110; 97129; 97130; 97162; 97166; 97530; 97535; 97802; A4216

== ENCOUNTER → 2023-07-09 | Outpatient (CLI) | payer MEDICARE, SELFPAY ==
--- NOTE | 2023-07-09 11:01 | VDLE_ITS ---
Reason For Study: LLE Swelling RIGHT LEFT CFV is PARTIALLY COMPRESSIBLE with mixed CFV is PARTIALLY COMPRESSIBLE with mixed intraluminal echoes. intraluminal echoes. Low resistant pulsatile Procedure waveforms seen within the vessel. Biphasic Exam performed in department. flow visualized on color doppler. The study was technically difficult. FV and POP V are PARTIALLY COMPRESSIBLE with A preliminary report was called and/or faxed mixed intraluminal echoes. to Dr. Min. T/P Trunk is compressible. PTV is compressible. LT PerV is compressible. VL/Venous Duplex US, Unilateral Interpretation Summary Chronic deep vein thrombosis is noted in the right common femoral vein. Chronic deep vein thrombosis is noted in the left common femoral vein, femoral vein, popliteal vein. Ordering Physician: Bernardino Min Chi Referring Physician: Bernardino Min Chi Performed By: Gideon Lind RVT
== END | disposition home or self-care (01) ==
LOC: CVS 11:00
PROVIDERS: PCP Family Medicine Geriatric Medicine; Referring Provider Family Medicine Geriatric Medicine; Visit Provider Family Medicine Geriatric Medicine
DX: M79.605 Pain in left leg (principal)
CPT/HCPCS: 93971

== ENCOUNTER → 2023-09-02 | Outpatient (CLI) | payer MEDICARE, SELFPAY | END | disposition home or self-care (01) | LOC: POLAB3 16:32 | PROVIDERS: PCP Family Medicine Geriatric Medicine; Visit Provider Family Medicine Geriatric Medicine | DX: N39.0 Urinary tract infection, site not specified (principal) | CPT/HCPCS: 87086 ==

== ENCOUNTER → 2024-10-19 | Outpatient (CLI) | payer MEDICARE, SELFPAY | END | disposition home or self-care (01) | PROVIDERS: PCP Family Medicine Geriatric Medicine; Referring Provider Family Medicine Geriatric Medicine; Visit Provider Family Medicine Geriatric Medicine | DX: N39.0 Urinary tract infection, site not specified (principal) | CPT/HCPCS: 87077; 87086; 87088; 87186 ==

== ENCOUNTER → 2025-03-05 | Outpatient (CLI) | payer MEDICARE, SELFPAY | END | disposition home or self-care (01) | LOC: CT 17:12 | PROVIDERS: PCP Family Medicine Geriatric Medicine; Referring Provider Family Medicine Geriatric Medicine; Visit Provider Family Medicine Geriatric Medicine | DX: S09.90XA Unspecified injury of head, initial encounter (principal); X58.XXXA Exposure to other specified factors, initial encounter | CPT/HCPCS: 70450 ==

== ENCOUNTER → 2025-03-05 | Outpatient (CLI) | payer MEDICARE, SELFPAY ==
[2025-03-05 17:23] LABS: Hematocrit 37.9 % (37-47); Hemoglobin 11.5 g/dL (12.0-15.0); Immature Granulocytes Count 0.040 X10^3/uL (0.0-0.0); Mean Corp Hgb Conc 30.3 g/dL (32-36); Mean Corpuscular Volume 78.3 fL (81-99); Mean Platelet Vol. 8.8 fl (6.2-12.0); NRBC Flagged by Analyzer 0 % (0-5); Platelet Count 440 K/mm3 (150-450); RBC Distribution Width CV 17.1 % (11.6-14.6); RBC Distribution Width SD 47.4 fl (35.1-43.9); Red Blood Count 4.84 M/mm3 (4.2-5.4); White Blood Count 7.4 K/mm3 (4.4-11.0)
[2025-03-05 18:24] LABS: AST(SGOT) 27 U/L (<=31); Alanine Aminotransfer ALT/SGPT 13 U/L (<=34); Albumin, Serum 4.6 g/dL (3.4-4.8); Alkaline Phosphatase 104 U/L (35-104); Anion Gap 15 (5-15); BUN 25 mg/dL (4-19); BUN/Creat Ratio 18.6 RATIO (10-20); Calcium,Total 10.2 mg/dL (7.6-11.0); Carbon Dioxide 29.6 mmol/L (21.0-32.0); Chloride 93 mmol/L (98-108); Globulin 3.2 g/dL (2.2-4.2); Glucose 97 mg/dL (70-99); Potassium 3.4 mmol/L (3.3-5.1)
--- OUTSIDE RECORDS SUMMARY | 2025-03-08 02:36 | XMS RPT_ITS | CCD ---
Author Organization [facility] Care Team Providers Care Certified Meeting Professional Name Role Phone NOAM FREEMAN Unavailable Unavailable NOAM FREEMAN Unavailable Unavailable PIZARRO, SERA Unavailable Unavailable Fer, Jimmy Magallanes Primary Care Provider Noam Freeman Unavailable JENA AVITIA Attending Unavailable PIZARRO, JIMMY MAGALLANES Referring Unavaila ble [facility] Care Unavaila ble ESTELA COSBY Attending Unavailable PIZARRO, JIMMY MAGALLANES Primary Care Unavaila ble NOAM FREEMAN Referring Unavailable [facility] Primary Care Unavaila ble FLORENCIO CHILDS Attending Unavailable PIZARRO, JIMMY MAGALLANES Primary Care Unavaila ble QING, ISIS Attending Unavailable PIZARRO, [facility] Care Unavaila ble QING, ISIS Attending Unavailable PIZARRO, AKRON ELPIDIO [facility] Care Unavaila ble FIRMI, AMY Attending Unavailable TEJA PARDO Attending Unavailable [facility] Primary Care Unavaila ble ALBERTO ESTRADA Attending Unavailable PIZARRO, JIMMY MAGALLANES [facility] Care Unavaila ble PIZARRO, JIMMY MAGALLANES Referring Unavaila ble PIZARRO, AKRON ELPIDIO Primary Care Unavaila ble QING, ISIS Attending Unavailable PIZARRO, JIMMY MAGALLANES Primary Care Unavaila ble Pizarro, Jimmy Magallanes Primary Care Provider Noam Freeman Unavailable Rosmery Horn Unavailable Ramón Jeter Unavailable Unavailable Pedro Luis Isaac Unavailable Cr Gibbs Unavailable Osmin SAN MD, Daromeoung Unavailable Rosmery Horn MD Primary Care Provider Rosmery Horn Unavailable Cr Gibbs R Unavailable Osmin SAN MD, Daesung Unavailable Rosmery Horn MD Primary Care Provider Cr Gibbs R Unavailable Osmin SAN MD, Daesung Unavailable Rosmery Horn MD Primary Care Provider MD Rosmery Horn Primary Care Provider Unavailab Dr. Riaz Kaur Emergency Provider [phone] Dr. Sarina Solorio Admit Provider Dr. Sarina Solorio Attending Provider Dr. Sarina Solorio Other Provider Dr. Ethan Schaefer Attending Provider Dr. Mayra Wood Attending Provider Dr. Mayra Wood Other Provider Dr. Ethan Schaefer Other Provider CLYDE Perla Attending Provider Dr. Ethan Schaefer Admit Provider Dr. Sarina Solorio Referring Provider Dr. Mayra Wood Referring Provider Dr. Domo Ruiz Attending Provider Dr. Domo Ruiz Referring Provider Dr. Harlan Andres Attending Provider Dr. Harlan Andres Referring Provider Dr. Bernardino Min Chi Primary Care Provider MD Rosmery Honr Referring Provider Unavailable Pako, Bernardino Chi Primary Care Provider Pako, Bernardino Chi Primary Care Provider [phone] RACHEAL SALDANA Referring Unavailable PAKO, BERNARDINO CHI Primary Care Unavailable ALHILLI, JOSELUIS Attending Unavailable ALHILLI, JOSELUIS Referring Unavailable GANTA, ROSMERY Primary Care Unavailable SHANA, RACHEAL Referring Unavailable GANTA, ROSMERY Primary Care Unavailable SHANA, RACHEAL Referring Unavailable GANTA, ROSMERY Primary Care Unavailable ALHILLI, JOSELUIS Attending Unavailable ALHILLI, JOSELUIS Referring Unavailable GANTA, ROSMERY Primary Care Unavailable GANTA, ROSMERY Primary Care Unavailable DANIEL, SHEEN Referring Unavailable GANTA, ROSMERY Primary Care Unavailable DANIEL, SHEEN Referring Unavailable PAKO, BERNARDINO CHI Primary Care Unavailable ALHILLI, JOSELUIS Referring Unavailable ALHILLI, JOSELUIS Attending Unavailable PAKO, BERNARDINO CHI Primary Care Unavailable ALHILLI, JOSELUIS Attending Unavailable ALHILLI, JOSELUIS Referring Unavailable PAKO, BERNARDINO CHI Primary Care Unavailable SHANA, RACHEAL Referring Unavailable Kamenik Carolyn Unavailable Unavailable Kamenik, Heydi Patel Attending Sariah Horn, Dr. Rosmery Aranda Primary Care Unavaila ble Masci DO, Domo A Unavailable Doup RN, Mason Unavailable Unavailable Dr. Bernardino Min Chi Primary Care Provider Maribel, Dr. Dodd Emergency Provider Dr. Jason Arteaga Admit Provider Dr. Jason Arteaga Other Provider Dr. Ethan Duarte Attending Provider Dr. Ethan Duarte Other Provider Dr. Bernardino Min Chi Primary Care Provider Dr. Ju López Emergency Provider Dr. Jason Arteaga Admit Provider Dr. Jason Arteaga Other Provider Dr. Ethan Duarte Attending Provider Dr. Ethan Duarte Other Provider Medicine, [facility] Unavailable Dr. Ethan Schaefer Attending Provider Dr. Bernardino Min Chi Referring Provider Osmin SAN, Daesung Unavailable Rosmery Horn MD Primary Care Provider Pako, Bernardino Chi Primary Care Provider El Kenzie Terry Primary Care Provider Pako, Bernardino Chi Primary Care Provider LUIS ANTONIO FRANKLIN Admitting Unavailable LUIS ANTONIO, FRANKLIN Attending Unavailable PAKO, BERNARDINO CHI Primary Care Unavailable PAKO, BERNARDINO CHI Primary Care Unavailable MASCIDOMO Referring Unavailable PAKO, BERNARDINO CHI Primary Care Unavailable MALNATE PAULA Referring Unavailabl e PAKO, BERNARDINO CHI Primary Care Unavailable DOMENIC CRAMER Referring Unavailabl e PAKO, BERNARDINO CHI Primary Care Unavailable PAKO, BERNARDINO CHI Primary Care Unavailable ALHILLI, JOSELUIS Referring Unavailable PAKO, BERNARDINO CHI Primary Care Unavailable DOMO FRAZIER Attending Unavailable MALATHI ROBERTS Referring Unavailable PAKO, BERNARDINO CHI Primary Care Unavailable MASCDOMO Murguia Referring Unavailable PAKO, BERNARDINO CHI Primary Care Unavailable LUIS ANTONIO, FRANKLIN Attending Unavailable NATE KRISHNA Referring Unavailabl e PAKO, BERNARDINO CHI Primary Care Unavailable LUIS ANTONIO, FRANKLIN Referring Unavailable LUIS ANTONIO, FRANKLIN Attending Unavailable PAKO, BERNARDINO CHI Primary Care Unavailable MALNATE PAULA Referring Unavailabl e PAKO, BERNARDINO CHI Primary Care Unavailable ALHILLI, JOSELUIS Referring Unavailable PAKO, BERNARDINO CHI Primary Care Unavailable ALHILLI, JOSELUIS Referring Unavailable PAKO, BERNARDINO CHI Primary Care Unavailable MALNATE PAULA Referring Unavailabl e PAKO, BERNARDINO CHI Primary Care Unavailable MALNATE PAULA Referring Unavailabl e PAKO, BERNARDINO CHI Primary Care Unavailable LUIS ANTONIO, FRANKLIN Attending Unavailable PAKO, BERNARDINO CHI Primary Care Unavailable ALHILLI, JOSELUIS Referring Unavailable PAKO, BERNARDINO CHI Primary Care Unavailable PAKO, BERNARDINO CHI Primary Care Unavailable LUIS ANTONIO, FRANKLIN Attending Unavailable PAKO, BERNARDINO CHI Primary Care Unavailable LUIS ANTONIO, FRANKLIN Referring Unavailable PAKO, BERNARDINO CHI Primary Care Unavailable PAKO, BERNARDINO CHI Primary Care Unavailable PAKO, BERNARDINO CHI Primary Care Unavailable EL KENZIE, TERRY Primary Care Unavailable LUIS ANTONIO, FRANKLIN Attending Unavailable DAWOOD ESPINO, TERRY Primary Care Unavailable JULIANNE HORNRA GERARDO Primary Care Unavailable EL KENZIE, TERRY Primary Care Unavailable GANTA, ROSMERY GERARDO Primary Care Unavailable Medicine, [facility] Unavailable Unavailable EL KENZIE, TERRY Primary Care Unavailable PROVIDER, UNKNOWN Referring Unavailable PROVIDER, UNKNOWN Referring Unavailable EL KENZIE, TERRY Primary Care Unavailable Rosmery Horn MD Primary Care Provider [phone] Terry Mccann MD Primary Care Provider [phone] Pako, Bernardino Chi Referring Unavailable Pako, Bernardino Chi Attending Unavailable Pako, Bernardino Chi Primary Care Unavailable [facility] EL KENZIE, TERRY Referring Unavailable EL KENZIE, TERRY Primary Care Unavailable EL KENZIE, TERRY Primary Care Unavailable EL KENZIE, TERRY Primary Care Unavailable BAHMAN ANN Attending Unavailable PAKO, BERNARDINO-CHI Primary Care Unavailable BAHMAN ANN Attending Unavailable EL KENZIE, TERRY Primary Care Unavailable EL KENZIE, TERRY Referring Unavailable EL KENZIE, TERRY Primary Care Unavailable EL KENZIE, TERRY Referring Unavailable EL KENZIE, TERRY Primary Care Unavailable EL KENZIE, TERRY Primary Care Unavailable LINDSEY CRISOSTOMO Attending Unavailable EL KENZIE, TERRY Primary Care Unavailable LINDSEY CRISOSTOMO Attending Unavailable EL KENZIE, TERRY Primary Care Unavailable El Kenzie, Terry Primary Care Provider [phone] Allergies Allergy Classification Reported Allergen(s) Allergy Type Date of Onset Reaction(s) Facility (20 sources) Codeine; Translations: [CODEINE] Drug Allergy 02-25-20 01 GI Intolerance, GI Upset, Hives, Other [facility] Repository (20 sources) Contrast media; Translations: [DYE] Propensity to adverse reactions (disorder) 03-04-20 18 GI Upset [facility] Repository (20 sources) Erythromycin; Translations: [ERYTHROMYCIN] Drug Allergy 08-03-20 14 GI Intolerance, GI Upset [facility] Repository (20 sources) methylPREDNISolone; Translations: [METHYLPREDNISOLONE ] Drug Allergy 08-03-20 14 Other (See Comments), Hives [facility] Repository (20 sources) Sulfonamides (Antibiotic); Translations: [SULFA (SULFONAMIDE ANTIBIOTICS)] Propensity to adverse reactions (disorder) 02-25-20 01 GI Intolerance, Unknown [facility] Repository (3 sources) Corticosteroids Other [facility] (3 sources) Sulfonamides (Antibiotic) Unknown [facility] (12 sources) Erythromycin Drug Allergy 08-31-19 Upset Stomach [facility] (6 sources) DOXOrubicin Drug Allergy 03-12-20 Anaphylaxis [facility] (20 sources) Iodine; Translations: [IODINE] Drug Allergy 03-24-20 Diarrhea [facility] (9 sources) Glucocorticoid preparation; Translations: [CORTICOSTEROIDS (GLUCOCORTICOIDS)] Drug Allergy 08-24-20 Other [facility] Work Phone: (1 source) ALLERGIES NOT ON FILE; Translations: [ALLERGIES NOT ON FILE] Propensity to adverse reactions (disorder) [facility] Repository (1 source) DOXOrubicin Drug Allergy 06-26-20 [facility] Repository (1 source) Erythromycin Drug Allergy 06-26-20 [facility] Repository Medications Current Medications Medication Drug Class(es) Dates Sig (Normalized) Sig (Original) acetaminophen 500 mg oral tablet (7 sources) Start: 07-05-2023 take 1000 mg by mouth every six hours as needed Acetaminophen Active 1000 MG PO EVERY 6 HOURS NEEDED 0 July 05, 2023 12:00am Start: 09-07-2022 take 1000 mg by mout h every six hours as needed Acetaminophen Active 1000 MG PO EVERY 6 HOURS NEEDED September 07, 2022 12:00am [id number] 200 actuat albuterol 0.09 mg/actuat metered dose inhaler (2 sources) beta2-Adrenergic Agonist Start: 08-19-2024 End: 08-26-2024 albuterol 90 mcg/actuation inhaler Indications: Acute bronchitis, unspecified organism Inhale 2 puffs every 6 hours if needed for wheezing for up to 7 days. DISPENSE ONE INHALER 18 g 08/19/2024 Active ampicillin 500 mg oral capsule (3 sources) Penicillin-class Antibacterial Start: 03-13-2022 End: 03-20-2022 take 1 capsule by mouth three times daily ampicillin (PRINCIPEN) 500 mg capsule Indications: Enterococcus urinary tract infection Take 1 capsule by mouth three times daily for 7 days. 21 capsule 0 03/13/2022 03/20/2022 Active Comment on above: Take 1 capsule by mouth three times jayleen y for 7 days. aspirin 81 mg delayed release oral tablet (20 sources) Platelet Aggregation Inhibitor, Nonsteroidal Anti-inflammatory Drug Start: 06-05-2020 End: 12-27-2023 take 1 tablet by mouth once daily aspirin 81 mg EC tablet Take 1 tablet (81 mg) by mouth once daily. 06/05/2020 Active aspirin Quantity : 0 Refills: 0 Ordered: 13-Apr-2023 Carito Ramirezica Generic Substitution Allowed take 1 tablet by mouth once jayleen y aspirin 81 mg oral tablet ; 1 tab(s) orally once a day Quantity: 0 Refills: 0 Ordered: 12-Aug-2018 Cheryl Prado Status: Discontinued Generic Substitution Allowed Comment on above: Take 1 tablet by tarsha th once daily. atorvastatin 40 mg oral tablet (20 sources) HMG-CoA Reductase Inhibitor Start: 11-18-19 End: 07-30-20 take 1 tablet by mouth once daily at bedtime for hyperlipidemia atorvastatin (LIPITOR) 40 mg tablet Take 1 tablet by mouth daily at bedtime. For cholesterol. 90 tablet 1 07/31/2022 Active Start: 10-22-2020 End: 05-16-2021 take 1 tablet by mouth once daily at bedtime for hyperlipidemia atorvastatin (LIPITOR) 40 mg tablet Take 1 tablet by mouth daily at bedtime. For cholesterol. 90 tablet 1 10/22/2020 05/16/2021 Discontinued Start: 09-21-2018 End: 08-17-2024 take 1 tablet by mouth once daily atorvastatin (Lipito r) 10 mg tablet Take 1 tablet (10 mg) by mouth once daily. 09/21/2018 08/17/2024 Discontinued (Therapy completed) Start: 09-08-2018 take 40 mg by mouth at bedtime Atorvastatin Active 40 MG PO AT BEDTIME September 08, 2018 12:00am Comment on above: Take 1 tablet by tarsha th daily at bedtime. For cholesterol. azithromycin 250 mg oral tablet (2 sources) Macrolide Antimicrobial Start: End: azithromycin (Zithromax Z-Adama) 250 mg tablet Indications: Bronchitis after surgery Take 2 tablets (500 mg) on Day 1, followed by 1 tablet (250 mg) once daily on Days 2 through 5. 6 tablet 08/17/2024 08/22/2024 Active benoxinate hydrochloride 4 mg/ml / fluorescein sodium 2.5 mg/ml ophthalmic solution (1 source) Diagnostic Dye Start: End: fluorescein-benoxin ate 0.25-0.4 % 1 Drop (FLURESS) benzonatate 100 mg oral capsule (1 source) Non-narcotic Antitussive Start: End: take 1 capsule by mouth every eight hours benzonatate (Tessalon) 100 mg capsule Indications: Acute bronchitis, unspecified organism , Acute cough Take 1 capsule (100 mg) by mouth every 8 hours for 7 days. Do not crush or chew. 21 capsule 08/19/2024 08/26/2024 Active onabotulinumtoxina 100 unt injection (19 sources) Acetylcholine Release Inhibitor Start: onabotulinum toxin type A 100 Units injection (BOTOX) brimonidine tartrate 2 mg/ml ophthalmic solution (20 sources) alpha-Adrenergic Agonist Start: Brimonidine Active 2 DRP RIGHT EYE THREE TIMES A DAY August 31, 2022 12:00am Start: 08-31-2022 Brimonidine Ac tive 2 DRP RIGHT EYE TWICE A DAY August 31, 2022 12:00am Start: 09-21-2018 take 1 drop(s) into the eye(s) twice daily brimonidine (ALPHAGAN P) 0.15 % ophthalmic solution Administer 1 drop to both eyes 2 (two) times a day. 0 09/21/2018 Active brimonidine tartrate 2 mg/ml / timolol 5 mg/ml ophthalmic solution (20 sources) alpha-Adrenergic Agonist, beta-Adrenergic Brad Start: 12-03-2021 brimonidine-erasto lol (COMBIGAN) 0.2-0.5 % ophthalmic solution Use 1 Drop in the right eye twice daily. Use at 9 AM and 3 PM 10 mL 2 12/03/2021 Active Start: 11-05-2021 End: 12-03-2021 brimonidine-timolol (COMBIGA N) 0.2-0.5 % ophthalmic solution Use 1 Drop in the right eye twice daily. Use at 9 AM and 3 PM 10 mL 2 12/03/2021 Active Comment on above: Use 1 Drop in the ri ght eye twice daily. Use at 9 AM and 3 PM Use 1 Drop in the ri ght eye twice daily. Use at 9 AM and 9 PM brompheniramine maleate 0.4 mg/ml / dextromethorphan hydrobromide 2 mg/ml / pseudoephedrine hydrochloride 6 mg/ml oral solution (2 sources) alpha-Adrenergic Agonist, Uncompetitive O-jzetlb-U-aspartate Receptor Antagonist, Sigma-1 Agonist Start: 08-17-20 End: 08-27-20 take 5 mL by mouth four times daily as needed for cough brompheniramine-ps eudoeph-DM 2-30-10 mg/5 mL syrup Indications: Acute cough Take 5 mL by mouth 4 times a day as needed for congestion or cough for up to 10 days. 120 mL 08/17/2024 08/27/2024 Active calcium carb/vitamin D3/vit K1 (VIACTIV ORAL) (20 sources) take 1 tablet by mouth once daily calcium carb/vitamin D3/vit K1 (VIACTIV ORAL) Take 1 tablet by mouth once daily. Active take 1 tablet by mouth once jayleen y calcium carb/vitamin D3/vit K1 (VIACTIV ORAL) Take 1 tablet by mouth once daily. 0 Active Comment on above: Take 1 tablet by tarsha once daily. calcium citrate 250 mg / ergocalciferol 100 mg oral tablet (7 sources) Provitamin D2 Compound take 1 tablet by mouth twice daily calcium citrate-vitamin D2 250 mg-2.5 mcg (100 unit) tablet Take 1 tablet by mouth twice a day. Active cephalexin 500 mg oral capsule (20 sources) Cephalosporin Antibacterial Start: 02-14-20 End: 02-21-20 take 1 capsule by mouth twice daily cephalexin (Keflex) 500 mg capsule Indications: Urinary tract infection with hematuria, site unspecified Take 1 capsule (500 mg) by mouth 2 times a day for 7 days. 14 capsule 02/13/2025 02/20/2025 Active Start: 08-08-2024 End: 08-17-2024 take 1 capsule by mouth three times daily cephalexin (Keflex) 500 mg capsule Indications: Dysuria , Acute cystitis with hematuria Take 1 capsule (500 mg) by mouth 3 times a day for 7 days. 21 capsule 08/08/2024 08/17/2024 Discontinued (Therapy completed) Start: 02-25-2024 End: 03-03-2024 take 1 capsule by mouth twice daily cephalexin (Keflex) 500 mg capsule Indications: Urinary tract infection with hematuria, site unspecified Take 1 capsule (500 mg) by mouth 2 times a day for 7 days. 14 capsule 02/25/2024 03/03/2024 Active Start: 03-23-2022 End: 03-23-2022 cephALEXin 500 mg cap(s) (KE FLEX) Start: 01-30-2022 End: 04-14-2022 take 1 capsule by mouth once daily cephALEXin (KEFLEX) 250 mg capsule Take 1 capsule by mouth once daily. 90 capsule 1 01/30/2022 04/14/2022 Discontinued (Course of therapy completed) Start: 01-23-2022 End: 01-28-2022 take 1 capsule by mouth four times daily cephALEXin (KEFLEX) 500 mg capsule Take 1 capsule by mouth four times daily for 5 days. 20 capsule 0 01/23/2022 01/28/2022 Active Comment on above: Take 1 capsule by mo uth four times daily for 5 days. Take 1 capsule by mo uth once daily. cholecalciferol 2000 unt oral capsule (20 sources) Vitamin D Start: 09-21-2018 take 1 capsule by mouth once daily cholecalciferol, vitamin D3, (VITAMIN D3) 2,000 unit cap Take 1 capsule by mouth once daily. 0 09/21/2018 Active Start: 09-08-2018 take 1 tablet by tarsha th once daily Cholecalciferol (Vitamin D3) (Vitamin D3) 1,000 UNIT tablet Active 1000 UNIT PO DAILY September 08, 2018 12:00am clonazePAM 1 mg oral tablet (17 sources) Benzodiazepine Start: 09-21-2018 take 1 tablet by mouth once daily clonazePAM (KLONOPIN) 1 MG tablet Take 1 mg by mouth nightly. 0 09/21/2018 Active colon health (1 source) colon health Quantity: 0 Refills: 0 Ordered: 13-Apr-2023 Jackie Ramirez Generic Substitution Allowed dexamethasone 0.1 mg/ml oral solution (17 sources) Corticosteroid Start: 09-21-2018 take 10 mL by mouth once daily at bedtime dexamethasone (DECADRON) 0.5 mg/5 mL elixir Take 10 mg by mouth daily. 10 ml swish and spit 3x a day and at bedtime 0 09/21/2018 Active diphenhydrAMINE hydrochloride 2.5 mg/ml oral solution (1 source) Histamine-1 Receptor Antagonist Start: 09-15-2024 take 10 mL by mouth every six hours diphenhydrAMINE (BENADryl) 12.5 mg/5 mL liquid Indications: Canker sores oral Take 10 mL (25 mg) by mouth every 6 hours if needed for itching for up to 10 days. 118 mL 09/16/2024 10:03 AM EST 09/15/2024 Active doxycycline hyclate 100 mg oral capsule (1 source) Tetracycline-class Drug Start: 08-19-2024 End: 08-29-2024 doxycycline (Vibramycin) 100 mg capsule Indications: Acute bronchitis, unspecified organism , Acute cough Take 1 capsule (100 mg) by mouth 2 times a day for 10 days. Take with at least 8 ounces (large glass) of water, do not lie down for 30 minutes after 20 capsule 08/19/2024 08/29/2024 Active everolimus 10 mg oral tablet (19 sources) Kinase Inhibitor, mTOR Inhibitor Immunosuppressant Start: 09-21-2018 take 1 tablet by mouth once daily everolimus (AFINITOR) 10 mg tablet Take 10 mg by mouth once daily. 0 09/21/2018 Active fluconazole 150 mg oral tablet (3 sources) Azole Antifungal Start: 02-10-2024 fluconazole (DIFLUCAN) 150 mg tablet Indications: vulvovaginal candidiasis Take 1 tablet by mouth every 72 hours. Take one pill. If no improvement in 72 hours, take an additional dose 2 tablet 02/10/2024 Active furosemide 20 mg oral tablet (20 sources) Loop Diuretic Start: 10-29-2021 End: 09-03-2022 furosemide (LASIX) 20 mg tablet Indications: Hypokalemia Take one tablet every day but if looses more than 10 pounds in a week then she needs to hold it. 45 tablet 3 01/30/2022 Active Comment on above: Take one tablet ever y day but if looses more than 10 pounds in a week then she needs to hold it. L gasseri/B bifidum/B longum (Verified Identity Pass ORAL) (17 sources) Start: 09-21-2018 L gasseri/B bifidum/B longum ([facility] ORAL) Take 1 Caplet by mouth once daily. 0 09/21/2018 Active latanoprost 0.05 mg/ml ophthalmic solution (20 sources) Prostaglandin Analog Start: 09-07-2022 End: 09-11-2022 Latanoprost Active 1 DRP EACH EYE BEDTIME September 11, 2022 8:41pm Start: 11-18-2020 End: 02-18-2021 take 1 drop(s) into the eye(s) once daily at bedtime latanoprost (XALATAN) 0.005 % ophthalmic solution Use 1 Drop in the left eye daily at bedtime. 3 Bottle 2 11/18/2020 02/18/2021 Discontinued Start: 09-21-2018 take 1 drop(s) into the eye(s) once daily latanoprost (XALATAN) 0.005 % ophthalmic solution Administer 1 drop to both eyes nightly. 0 09/21/2018 Active lenvatinib (20 sources) Kinase Inhibitor Start: 06-03-2023 take 2 capsules by mouth once daily lenvatinib (LENVIMA) 20 mg/day (10 mg x 2) capsules Indications: Endometrial cancer (HCC) Take 2 capsules (20 mg) by mouth once daily. 60 capsule 5 06/11/2023 12:07 PM EDT 06/03/2023 Active Start: 06-03-2023 End: 08-17-2024 lenvatinib 20 mg daily dose (Lenvima) 2 x 10 mg capsule therapy pack Take 2 capsules (20 mg total) by mouth once daily. 06/03/2023 08/17/2024 Discontinued (Therapy completed) Start: 06-03-2023 lenvatinib 20 mg daily dose (Lenvima) 2 x 10 mg capsule therapy pack Take 2 capsules (20 mg total) by mouth once daily. 06/03/2023 Active Start: 06-03-2023 take 2 capsules by m outh once daily lenvatinib (LENVIMA) 20 mg/day (10 mg x 2) capsules Indications: Endometrial cancer (HCC) Take 2 capsules (20 mg) by mouth once daily. 60 capsule 5 06/03/2023 Active Start: 06-03-2023 take 2 capsules by m outh once daily lenvatinib (LENVIMA) 10 mg/day (10 mg x 1) capsule Indications: Endometrial cancer (HCC) Take 2 capsules (20mg) by mouth once daily. 60 capsule 5 06/03/2023 Active Comment on above: Take 2 capsules (20m g) by mouth once daily. Take 2 capsules (20 mg) by mouth once daily. letrozole 2.5 mg oral tablet (20 sources) Aromatase Inhibitor Start: take 1 tablet by mouth once daily letrozole (FEMARA) 2.5 mg tablet Take 2.5 mg by mouth daily. 0 09/21/2018 Active levoFLOXacin 250 mg oral tablet (1 source) Quinolone Antimicrobial Start: End: take 1 tablet by mouth once daily levoFLOXacin (LEVAQUIN) 250 mg tablet Take 1 tablet by mouth once daily for 7 days. 7 tablet 0 02/19/2022 02/26/2022 Active Comment on above: Take 1 tablet by tarsha th once daily for 7 days. levothyroxine sodium 0.025 mg oral tablet (20 sources) l-Thyroxine Start: End: take 1 tablet by mouth once daily for thyroid dysfunction levothyroxine (LEVOXYL) 25 mcg tablet Take 1 tablet by mouth once daily. Take on empty stomach. For Thyroid 90 tablet 1 07/31/2022 Active Comment on above: Take 1 tablet by tarsha th once daily. Take on empty stomach. For Thyroid lidocaine hydrochloride 0.02 mg/mg topical gel (11 sources) Antiarrhythmic, Amide Local Anesthetic Start: End: lidocaine urojet 2 % 6 mL topical gel (GLYDO) loperamide hydrochloride 2 mg oral capsule (17 sources) Opioid Agonist Start: take 1 capsule by mouth four times daily as needed for diarrhea loperamide (IMODIUM) 2 mg capsule Take 2 mg by mouth 4 (four) times a day as needed for diarrhea. 0 09/21/2018 Active lutein 20 mg oral tablet (20 sources) Start: take 1 tablet by mouth once daily lutein 20 mg Tab Take 20 mg by mouth once daily. 0 09/21/2018 Active End: 12-27-2023 take 1 tablet by mouth once daily LUTEIN ORAL Take 1 tablet by mouth once daily. 12/27/2023 Discontinued (Discontinued by Patient) End: 12-27-2023 take 1 tablet by mouth once daily LUTEIN ORAL Take 1 tablet by mouth once daily. 0 12/27/2023 Discontinued (Discontinued by Patient) take 1 tablet by tarsha th once daily LUTEIN ORAL Take 1 tablet by mouth once daily. 0 Active LUTEIN ORAL Take by mouth. 0 Active Comment on above: Take by mouth. Take 1 tablet by tarsha th once daily. meloxicam 15 mg oral tablet (20 sources) Nonsteroidal Anti-inflammatory Drug Start: 2 End: 3 take 1 tablet by mouth once daily at mealtime meloxicam (MOBIC) 15 mg tablet Take 1 tablet by mouth once daily. With food. 90 tablet 1 07/31/2022 Active Comment on above: Take 1 tablet by tarsha th once daily. With food. methenamine hippurate 1000 mg oral tablet (20 sources) Start: 2 take 1 tablet by mouth twice daily at mealtime Methenamine Hippurate (HIPREX) 1 gram tablet Indications: Acute cystitis without hematuria Take 1 tablet by mouth twice daily with meals. 60 tablet 11 03/23/2022 Active Comment on above: Take 1 tablet by tarsha th twice daily with meals. mirtazapine 15 mg oral tablet (20 sources) Start: 1 End: 2 take 1 tablet by mouth once daily at bedtime mirtazapine (REMERON) 15 mg tablet Indications: Depression, unspecified depression type , Insomnia, unspecified type Take 1 tablet by mouth daily at bedtime. 90 tablet 1 07/31/2022 Active take 1 tablet by tarsha th once daily at bedtime mirtazapine 30 mg oral tablet ; 1 tab(s) orally once a day (at bedtime) Quantity: 0 Refills: 0 Ordered: 12-Aug-2018 Pinzone, Cheryl Generic Substitution Allowed Comment on above: TAKE 1 TABLET BY TARSHA TH EVERYDAY AT BEDTIME Take 1 tablet by tarsha th daily at bedtime. multivit with minerals/lutein (MULTIVITAMIN 50 PLUS ORAL) (17 sources) Start: 9 take 1 tablet by mouth once daily multivit with minerals/lutein (MULTIVITAMIN 50 PLUS ORAL) Take 1 tablet by mouth once daily. 0 09/21/2018 Active MULTIVITAMIN TABLET PO (20 sources) Start: 1 take 1 tablet by mouth once daily MULTIVITAMIN TABLET PO Take one(1) tablet daily. 0 0 02/24/2001 Active Comment on above: Take one(1) tablet d aily. Multivitamin With Folic Acid (Thera) 1 TABLET tablet (12 sources) Start: 9 take 1 tablet by mouth once daily Multivitamin With Folic Acid (Thera) 1 TABLET tablet Active 1 TABLET PO DAILY September 08, 2018 1:00am Start: 09-08-2018 take 1 tablet by tarsha once daily Multivitamin With Folic Acid (Thera) 1 TABLET tablet Active 1 TABLET PO DAILY September 08, 2018 12:00am nitrofurantoin, macrocrystals 25 mg / nitrofurantoin, monohydrate 75 mg oral capsule (20 sources) Nitrofuran Antibacterial Start: 12-03-2023 End: 12-10-2023 take 1 capsule by mouth twice daily nitrofurantoin monohydrate and macrocrystal (MACROBID) 100 mg capsule Take 1 capsule by mouth two times a day for 7 days. 14 capsule 0 12/03/2023 12/10/2023 Active Start: 11-07-2021 End: 01-30-2022 take 1 capsule by mouth once daily nitrofurantoin monohydrate and macrocrystal (MACROBID) 100 mg capsule Take 1 capsule by mouth once daily. 90 capsule 3 11/07/2021 01/30/2022 Discontinued Start: 09-21-2018 End: 05-13-2021 take 1 capsule by mouth once daily nitrofurantoin monohydrate and macrocrystal (MACROBID) 100 mg capsule Take 1 capsule by mouth once daily. 90 capsule 3 05/16/2020 05/13/2021 Discontinued take 1 capsule by mo [facility] twice daily Macrobid 100 mg oral capsule ; 1 cap(s) orally 2 times a day Quantity: 0 Refills: 0 Ordered: 12-Aug-2018 Pinzone, Cheryl Generic Substitution Allowed Comment on above: Take 1 capsule by mo ut once daily. Take 1 capsule by mo ut two times a day for 7 days. ondansetron 8 mg oral tablet (20 sources) Serotonin-3 Receptor Antagonist Start: 03-08-202 2 take 1 tablet by mouth every six hours as needed ondansetron orally disintegrating (ZOFRAN ODT) 4 mg disintegrating tablet Take 1 tablet by mouth every 6 hours as needed for nausea/vomiting. 45 tablet 1 11/04/2021 Active Start: 09-21-2018 take 1 tablet by tarsha th every six hours as needed ondansetron (ZOFRAN) 8 mg tablet Take 1 tablet by mouth every 6 hours as needed for nausea/vomiting. 30 tablet 5 03/04/2023 Active Start: 09-08-2018 take 8 mg by mouth e very eight hours as needed Ondansetron Hcl Active 8 MG PO EVERY 8 HOURS NEEDED September 08, 2018 12:00am Comment on above: Take 1 tablet by tarsha th every 6 hours as needed for nausea/vomiting. perflutren lipid microspheres 1.3 mL in NaCl (PF) 0.9% 10 mL injection (DEFINITY) (20 sources) Start: 02-25-2023 End: 05-26-2024 perflutren lipid microspheres 1.3 mL in NaCl (PF) 0.9% 10 mL injection (DEFINITY) Start: 10-01-2021 End: 12-31-2022 perflutren lipid microsphere s 1.3 mL in NaCl (PF) 0.9% 10 mL injection (DEFINITY) phenazopyridine hydrochloride 200 mg oral tablet (20 sources) Start: 11-14-2020 End: 12-08-2023 take 1 tablet by mouth three times daily as needed phenazopyridine (Pyridium) 200 mg tablet TAKE 1 TABLET BY MOUTH THREE TIMES A DAY NEEDED FOR UP TO 5 DAYS. 12/03/2023 Active Comment on above: Take 1 tablet by tarsha th three times daily as needed. Take 1 tablet by tarsha th three times a day as needed for up to 5 days. phenylephrine hydrochloride 25 mg/ml ophthalmic solution (1 source) alpha-1 Adrenergic Agonist Start: 05-01-2022 End: 05-01-2022 PHENYLephrine 2.5 % 1 Drop (AK-DILATE, JACK-SYNEPHRINE) polycarbophil (REPLENS) Gel (17 sources) Start: 09-21-2018 polycarbophil (REPLENS) Gel Insert 1 application into the vagina daily as needed (vaginal dryness). 0 09/21/2018 Active polyethylene glycol 3350 08236 mg powder for oral solution (20 sources) Osmotic Laxative Start: 09-21-2018 Polyethylene Glycol 3350 (Miralax) 17 gram/dose Powder Active 17 GM PO DAILY August 31, 2022 12:00am proparacaine hydrochloride 5 mg/ml ophthalmic solution (1 source) Local Anesthetic Start: 05-01-2022 End: 05-01-2022 proparacaine 0.5 % 1 Drop (ALCAINE) rivaroxaban 20 mg oral tablet (20 sources) Factor Xa Inhibitor Start: 09-11-2022 End: 09-16-2022 take 1 tablet by mouth twice daily at mealtime Rivaroxaban (Xarelto) 15 mg tablet Discontinued 15 MG PO TWICE DAILY WITH MEALS September 11, 2022 8:41pm September 16, 2022 7:12pm Start: 09-03-2022 take 1 tablet by tarsha th once daily XARELTO 20 mg tablet Take 1 tablet by mouth once daily. 11/02/2023 Active Start: 09-03-2022 End: 12-27-2023 rivaroxaban (Xarelto) 15 mg tablet Take 20 mg by mouth once daily. 09/03/2022 Active Start: 09-03-2022 End: 09-07-2022 take 1 tablet by mouth twice daily at mealtime Rivaroxaban (Xarelto) 15 mg tablet Discontinued 15 MG PO TWICE DAILY WITH MEALS September 03, 2022 9:23pm September 07, 2022 7:48am Comment on above: Take 20 mg by mouth once daily. sertraline 25 mg oral tablet (20 sources) Serotonin Reuptake Inhibitor Start: 10-18-2022 take 125 mg by mouth once daily Sertraline Active 125 MG PO DAILY October 18, 2022 1:00am Start: 08-04-2021 End: 01-30-2022 take 1 tablet by mouth once daily sertraline (ZOLOFT) 25 mg tablet Indications: Depression, unspecified depression type Take 1 tablet by mouth once daily. 90 tablet 3 01/30/2022 Active Start: 09-21-2018 End: 01-30-2022 take 1 tablet by mouth once daily sertraline (ZOLOFT) 100 mg tablet Take 1 tablet by mouth once daily. To take along with 25 mgs to make a total of 125 mgs 90 tablet 3 01/30/2022 Active Start: 09-08-2018 take 125 mg by mouth once jayleen y Sertraline Active 125 MG PO DAILY September 08, 2018 12:00am Comment on above: Take 1 tablet by tarsha th once daily. TAKE 1 TABLET BY TARSHA TH EVERY DAY Take 1 tablet by tarsha th once daily. To take along with 25 mgs to make a total of 125 mgs solifenacin succinate 5 mg oral tablet (20 sources) Cholinergic Muscarinic Antagonist Start: 11-18-19 End: 08-17-20 take 1 tablet by mouth once daily solifenacin (VESICARE) 5 mg tablet Indications: urinary urge incontinence Take 1 tablet by mouth once daily. 30 tablet 3 11/18/2023 Active Comment on above: Take 1 tablet by tarsha th once daily. travoprost 0.04 mg/ml ophthalmic solution (20 sources) Prostaglandin Analog Start: 12-06-19 End: 09-07-19 travoprost (TRAVATAN Z) 0.004 % ophthalmic drops Use 1 Drop in both eyes daily at bedtime. 2.5 mL 2 12/05/2021 Active Comment on above: Use 1 Drop in both e yes daily at bedtime. tropicamide 10 mg/ml ophthalmic solution (1 source) Anticholinergic Start: 05-01-20 End: 05-01-20 tropicamide 1 % 1 Drop (MYDRIACYL) Viactiv Multi-Vitamin oral tablet, chewable (3 sources) take 1 tablet by mouth once daily Viactiv Multi-Vitamin oral tablet, chewable ; 1 tab(s) orally once a day Quantity: 0 Refills: 0 Ordered: 18-Apr-2019 Betzaida Orozco Generic Substitution Allowed Completed/Discontinued Medications Medication Drug Class(es) Dates Sig (Normalized) Sig (Original) albuterol 0.833 mg/ml / ipratropium bromide 0.167 mg/ml inhalation solution (2 sources) Anticholinergic, beta2-Adrenergic Agonist Start: 08-19-2024 End: 08-19-2024 3 mL, nebulization, Once, On 08/19/24 at 1215, For 1 dose buPROPion hydrochloride 75 mg oral tablet (20 sources) Aminoketone Start: 01-30-2022 End: 12-27-2023 buPROPion (WELLBUTRIN) 75 mg tablet Take it once a day in the morning. 60 tablet 0 01/30/2022 12/27/2023 Discontinued (Discontinued by Patient) Start: 08-20-2021 End: 01-30-2022 buPROPion (WELLBUTRIN) 75 mg tablet Take it once a day in the morning , and if tolerated my increased to 2 pills a day 60 tablet 0 08/20/2021 01/30/2022 Discontinued Comment on above: Take it once a day i n the morning , and if tolerated my increased to 2 pills a day Take it once a day i n the morning. cefTRIAXone 1000 mg injection (1 source) Cephalosporin Antibacterial Start: 02-25-2024 End: 02-25-2024 1 g, intravenous, at 100 mL/hr, Administer over 30 Minutes, Once, On Wed02/25/24 at 1520, For 1 dose, premix bag, Suspected Indication (Select all that apply): Urinary Tract Infection, Type of Therapy: Empiric, Type of Urinary Tract Infection: Uncomplicated, Indications: Urinary Tract Infection CHOLECALCIFEROL, VITAMIN D3, (VITAMIN D3 ORAL) (20 sources) End: 12-27-2023 CHOLECALCIFEROL, VITAMIN D3, (VITAMIN D3 ORAL) Take by mouth once daily. 12/27/2023 Discontinued (Discontinued by Patient) End: 12-27-2023 CHOLECALCIFEROL, VITAMIN D3, (VITAMIN D3 ORAL) Take by mouth once daily. 0 12/27/2023 Discontinued (Discontinued by Patient) CHOLECALCIFEROL, VITAMIN D3, (VITAMIN D3 ORAL) Take by mouth once daily. 0 Active Comment on above: Take by mouth once d aily. ciprofloxacin 500 mg oral tablet (15 sources) Quinolone Antimicrobial Start: 08-28-20 End: 09-07-19 23 take 500 mg by mouth twice daily Ciprofloxacin Hcl Discontinued 500 MG PO TWICE A DAY August 31, 2022 12:00am September 03, 2022 3:51pm Start: 04-08-2022 End: 04-15-2022 take 1 tablet by mouth twice daily ciprofloxacin HCl (CIPRO) 500 mg tablet Take 1 tablet by mouth twice daily for 7 days. 14 tablet 0 04/08/2022 04/15/2022 Active Comment on above: Take 1 tablet by tarsha twice daily for 7 days. Take 1 tablet by tarsha twice daily for 10 days. difluprednate 0.5 mg/ml ophthalmic suspension (1 source) Start: 11-27-19 End: 01-01-20 take 1 drop(s) into the eye(s) four times daily Difluprednate (DUREZOL) 0.05 % Use 1 Drop in the right eye four times daily. 1 Bottle 11/26/2020 12/31/2020 Discontinued (Clinical Decision) docusate sodium 50 mg / sennosides, senior care 8.6 mg oral tablet (20 sources) Start: 09-03-19 End: 09-16-19 take 2 tablets by mouth twice daily for diarrhea Sennosides-Docusate Sodium (Stool Softener-Stimulant Laxat) 8.6-50 mg tablet Discontinued 2 TABLET PO TWICE A DAY September 03, 2022 9:23pm September 16, 2022 7:12pm Hold for diarrhea or bowel movement more than 3 times a day dorzolamide 20 mg/ml / timolol 5 mg/ml ophthalmic solution (1 source) Carbonic Anhydrase Inhibitor, beta-Adrenergic Brad Start: 11-19-19 End: 02-19-20 dorzolamide-timolol (COSOPT) 22.3-6.8 mg/mL ophthalmic solution Use 1 Drop in the left eye twice daily. 9 AM and 3 PM 1 Bottle 2 11/18/2020 02/18/2021 Discontinued Food Supplemt, Lactose-Reduced (Ensure Plus High Protein) 0.08 gram-1.5 kcal/mL Liquid (11 sources) Start: 09-03-19 End: 09-03-19 Food Supplemt, Lactose-Reduced (Ensure Plus High Protein) 0.08 gram-1.5 kcal/mL Liquid Discontinued 120 ML PO 4 TIMES DAILY 0 September 03, 2022 1:00am September 03, 2022 10:23pm Start: 09-03-2022 End: 09-03-2022 Food Supplemt, Lactose-Reduc ed (Ensure Plus High Protein) 0.08 gram-1.5 kcal/mL Liquid Discontinued 120 ML PO 4 TIMES DAILY 0 September 03, 2022 12:00am September 03, 2022 9:23pm Start: 09-03-2022 Food Supplemt, Lactose-Reduced (Ensure Plus High Protein) 0.08 gram-1.5 kcal/mL Liquid Active 120 ML PO 4 TIMES DAILY 0 September 03, 2022 12:00am Food Supplemt, Lactose-Reduc ed (Ensure Plus High Protein) 0.08 gram-1.5 kcal/mL liquid (10 sources) Start: 09-03-2022 End: 09-07-2022 Food Supplemt, Lactose-Reduc ed (Ensure Plus High Protein) 0.08 gram-1.5 kcal/mL liquid Discontinued 120 ML PO 4 TIMES DAILY September 03, 2022 10:23pm September 07, 2022 8:48am Start: 09-03-2022 End: 09-07-2022 Food Supplemt, Lactose-Reduc ed (Ensure Plus High Protein) 0.08 gram-1.5 kcal/mL liquid Discontinued 120 ML PO 4 TIMES DAILY September 03, 2022 9:23pm September 07, 2022 7:48am iohexol (OMNIPaque) 350 mg iodine/mL solution 68 mL (1 source) Start: 02-25-2024 End: 02-25-2024 68 mL, intravenous, Once in imaging, Starting on Wed02/25/24 at 1550, For 1 dose L GASSERI/B BIFIDUM/B LONGUM ([employer] COLON HEALTH ORAL) (20 sources) End: 12-27-2023 take 1 tablet by mouth once daily L GASSERI/B BIFIDUM/B LONGUM (Optensity COLON HEALTH ORAL) Take 1 tablet by mouth once daily. 12/27/2023 Discontinued (Discontinued by Patient) End: 12-27-2023 take 1 tablet by mouth once daily L GASSERI/B BIFIDUM/B LONGUM ([employer] HEALTH ORAL) Take 1 tablet by mouth once daily. 0 12/27/2023 Discontinued (Discontinued by Patient) take 1 tablet by tarsha th once daily L GASSERI/B BIFIDUM/B LONGUM ([employer] HEALTH ORAL) Take 1 tablet by mouth once daily. 0 Active L GASSERI/B BIFI DUM/B LONGUM ([employer] HEALTH ORAL) Take by mouth. 0 Active Comment on above: Take by mouth. Take 1 tablet by tarsha th once daily. latanoprostene bunod 0.24 mg/ml ophthalmic solution (2 sources) Start: 2 End: 2 take 1 drop(s) into the eye(s) once daily at bedtime latanoprostene bunod (VYZULTA) 0.024 % ophthalmic drops Use 1 Drop in the right eye daily at bedtime. Use 1 drop at 10 PM 5 mL 1 12/03/2021 12/05/2021 Discontinued Comment on above: Use 1 Drop in the ri ght eye daily at bedtime. Use 1 drop at 10 PM Menthol / Zinc Oxide (18 sources) Start: 3 End: Menthol-Zinc Oxide (Calmoseptine) 0.44-20.6 % ointment Discontinued 1 APPLIC TOPICAL BID@1000,2200 September 11, 2022 9:41pm September 16, 2022 8:12pm Start: 09-11-2022 End: 09-16-2022 Menthol-Zinc Oxide (Calmosep elyse) 0.44-20.6 % ointment Discontinued 1 APPLIC TOPICAL BID@1000,2200 September 11, 2022 8:41pm September 16, 2022 7:12pm Start: 09-07-2022 End: 09-11-2022 Menthol-Zinc Oxide (Calmosep elyse) 0.44-20.6 % Ointment Discontinued 1 APPLIC TOPICAL BID@1000,2200 0 September 07, 2022 1:00am September 11, 2022 9:41pm Start: 09-07-2022 End: 09-11-2022 Menthol-Zinc Oxide (Calmosep elyse) 0.44-20.6 % Ointment Discontinued 1 APPLIC TOPICAL BID@1000,2200 0 September 07, 2022 12:00am September 11, 2022 8:41pm Start: 09-07-2022 Menthol-Zinc O xide (Calmoseptine) 0.44-20.6 % Ointment Active 1 APPLIC TOPICAL BID@1000,2200 0 September 07, 2022 12:00am nitrofurantoin, macrocrystals 100 mg oral capsule (6 sources) Nitrofuran Antibacterial End: 08-17-2024 take 1 capsule by mouth four times daily nitrofurantoin (Macrodantin) 100 mg capsule Take 1 capsule (100 mg) by mouth 4 times a day. 08/17/2024 Discontinued (Therapy completed) nitrofurantoin Q uantity: 0 Refills: 0 Ordered: 13-Apr-2023 Jackie Ramirez Generic Substitution Allowed potassium chloride 10 meq extended release oral tablet (20 sources) Start: 08-31-2022 take 10 mEq by mouth once daily Potassium Chloride Active 10 MEQ PO DAILY August 31, 2022 12:00am Start: 10-29-2021 End: 12-27-2023 take 1 tablet by mouth twice daily potassium chloride (K-TAB) 10 mEq tablet Take 10 mEq by mouth two times a day. 0 04/29/2023 Active Start: 10-22-2020 End: 05-12-2021 take 1 tablet by mouth once daily at breakfast potassium chloride (K-TAB) 10 mEq tablet Take 1 tablet by mouth daily with breakfast. 30 tablet 5 10/22/2020 05/12/2021 Discontinued take 1 capsule by mo [facility] twice daily potassium chloride 10 mEq oral capsule, extended release ; 1 cap(s) orally 2 times a day Quantity: 0 Refills: 0 Ordered: 18-Apr-2019 Betzaida Orozco Generic Substitution Allowed Comment on above: [facility] Take it every day along with lasix. If looses than 10 pounds then change to every other day Take 10 mEq by mouth two times a day. predniSONE 20 mg oral tablet (6 sources) Start: 03-12-2023 End: 06-26-2023 take 40 mg by mouth once daily Prednisone Discontinued 40 MG PO DAILY 10 March 11, 2023 11:00pm June 26, 2023 10:59pm 1000 ml sodium chloride 9 mg/ml injection (20 sources) Start: 02-25-2024 End: 02-25-2024 500 mL, intravenous, at 500 mL/hr, Administer over 1 Hours, Once, On Wed02/25/24 at 1505, For 1 dose Start: 02-25-2023 End: 05-26-2024 sodium chloride 0.9 % (flush ) 10 mL (BD POSIFLUSH) Start: 10-01-2021 End: 12-31-2022 sodium chloride 0.9 % (flush ) 10 mL (BD POSIFLUSH) trospium chloride 20 mg oral tablet (3 sources) Cholinergic Muscarinic Antagonist Start: 10-11-2023 End: 11-18-2023 take 1 tablet by mouth twice daily trospium (SANCTURA) 20 mg tablet Take 1 tablet by mouth two times a day. 180 tablet 3 10/11/2023 11/18/2023 Discontinued Comment on above: Take 1 tablet by mouth two times a day. UNKNOWN TO PATIENT (3 sources) End: 08-17-2024 take 1 drop(s) into the eye(s) once daily take 1 drop(s) into the eye(s) o nce daily Vaginal Lubricant (REPLENS) gel (20 sources) Start: 09-23-2017 End: 04-14-2022 Vaginal Lubricant (REPLENS) gel Use 6.7 g vaginally every other day. 1 Tube 5 09/23/2017 04/14/2022 Discontinued (Course of therapy completed) Start: 09-23-2017 Vaginal Lubric ant (REPLENS) gel Use 6.7 g vaginally every other day. 1 Tube 5 09/23/2017 Active Comment on above: Use 6.7 g vaginally every other day. vibegron (GEMTESA) 75 mg tablet (4 sources) Start: 4 take 1 tablet by mouth once daily vibegron (GEMTESA) 75 mg tablet Take 1 tablet by mouth once daily. 90 tablet 3 10/06/2023 Active Comment on above: Take 1 tablet by tarsha th once daily. wheat dextrin 3000 mg powder for oral solution (20 sources) Start: 9 End: 2 wheat dextrin (BENEFIBER SUGAR FREE, DEXTRIN,) 3 gram/4 gram powd Indications: Irritable bowel syndrome with both constipation and diarrhea Take 2 teaspoonsful by mouth once daily. 05/30/2019 04/14/2022 Discontinued (Discontinued by Patient) Comment on above: Take 2 teaspoonsful by mouth once daily. Problems Active Problems Problem Classification Problem Date Documented Da te Episodic/Chronic Abdominal pain (1 source) Generalized abdominal pain; Translations: [Generalized abdominal pain] Episodic Acute and unspecified renal failure (20 sources) Injury of kidney; Translations: [Acute kidney failure, unspecified] Episodic Acute cerebrovascular disease (12 sources) Cerebral hemorrhage; Translations: [Nontraumatic intracerebral hemorrhage, unspecified] 10-28-2021 Chronic Administrative/social admission (2 sources) Other specified counseling; Translations: [Education and/or schooling finding] Onset: 03-26-2023 12-17-2023 Episodic Allergic reactions (6 sources) Drug-induced anaphylaxis; Translations: [Anaphylactic shock, unspecified, initial encounter] 03-12-2023 Episodic Anal and rectal conditions (1 source) Weak anal sphincter; Translations: [Other specified diseases of anus and rectum] Episodic Anxiety disorders (20 sources) Other mixed anxiety disorders; Translations: [Anxiety] Onset: 12-13-2018 Chronic Blindness and vision defects (20 sources) Visual impairment; Translations: [Unqualified visual loss, right eye, normal vision left eye] Onset: 11-04-2021 11-04-2021 Chronic Cancer of uterus (20 sources) Malignant neoplasm of endometrium; 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 ] Onset: 06-21-2018 Chronic Cataract (20 sources) Pseudophakia; Translations: [Lens replaced by other means] Onset: 07-06-2014 Resolved: 05-23-2019 11-05-2021 Chronic Cataract (1 source) Cataract 11-05-2021 Complications of surgical procedures or medical care (1 source) Postoperative bronchitis; Translations: [Other postprocedural complications and disorders of respiratory system, not elsewhere classified] 08-17-2024 Episodic Deficiency and other anemia (20 sources) Anemia; Translations: [Anemia, unspecified] 08-31-2022 Episodic Deficiency and other anemia (10 sources) Anemia, unspecified; Translations: [Anemia, unspecified] Episodic Delirium, dementia, and amnestic and other cognitive disorders (20 sources) Amnestic disorder; 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] Onset: 07-20-2003 11-05-2021 Chronic Disorders of lipid metabolism (20 sources) Mixed hyperlipidemia; Translations: [Mixed hyperlipidemia] Chronic E Codes: Fall (12 sources) Fall; Translations: [Unspecified fall, initial encounter] 11-05-2021 Episodic Fluid and electrolyte disorders (20 sources) Dehydration; Translations: [Dehydration] 11-05-2021 Episodic Gastrointestinal hemorrhage (1 source) Rectal hemorrhage; Translations: [Hemorrhage of anus and rectum] Episodic Genitourinary symptoms and ill-defined conditions (2 sources) Urge incontinence of urine; Translations: [Urge incontinence] Onset: 09-29-2023 12-01-2023 Chronic Glaucoma (20 sources) 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; Translations: [Open angle with borderline findings, low risk] Onset: 07-06-2014 Resolved: 04-11-2021 11-05-2021 Chronic Glaucoma (1 source) Glaucoma 11-05-2021 Inflammation; infection of eye (except that caused by tuberculosis or sexually transmitteddisease) (20 sources) Superficial punctate keratitis; Translations: [Punctate keratitis] Onset: 01-23-2020 11-05-2021 Chronic Inflammatory diseases of female pelvic organs (1 source) Acute vulvitis; Translations: [Acute vulvitis] 02-09-2024 Episodic Malaise and fatigue (20 sources) Asthenia; Translations: [Other malaise and fatigue] Onset: 04-13-2023 Episodic Malignant neoplasm without specification of site (2 sources) Recurrent malignant neoplastic disease; Translations: [Malignant (primary) neoplasm, unspecified] Onset: 03-26-2023 Chronic Menopausal disorders (20 sources) Atrophic vaginitis; Translations: [Postmenopausal atrophic vaginitis] Onset: 12-28-2011 11-05-2021 Chronic Mood disorders (20 sources) Depressive disorder; Translations: [Depression, unspecified depression type] Chronic Multiple sclerosis (20 sources) Multiple sclerosis; Translations: [Multiple sclerosis] Onset: 09-01-2018 11-05-2021 Chronic Nausea and vomiting (10 sources) Nausea; Translations: [Nausea] 09-11-2022 Episodic Noninfectious gastroenteritis (1 source) Chronic diarrhea; Translations: [Noninfective gastroenteritis and colitis, unspecified] Episodic Nutritional deficiencies (20 sources) Vitamin D deficiency; Translations: [Vitamin D deficiency, unspecified] Onset: 03-02-2023 Chronic Nutritional deficiencies (1 source) Cobalamin deficiency; Translations: [Deficiency of other specified B group vitamins] Episodic Occlusion or stenosis of precerebral arteries (12 sources) Bilateral stenosis of carotid arteries; Translations: [Occlusion and stenosis of bilateral carotid arteries] 12-28-2023 Chronic Open wounds of head; neck; and trunk (12 sources) Scalp laceration; Translations: [Laceration without foreign body of scalp, initial encounter] 11-05-2021 Episodic Other aftercare (1 source) Surgical follow-up; Translations: [Encounter for removal of sutures] 11-05-2021 Episodic Other aftercare (3 sources) Drug therapy finding; Translations: [Encounter for therapeutic drug level monitoring] Episodic Other and ill-defined cerebrovascular disease (20 sources) Intracranial aneurysm; Translations: [Cerebral aneurysm, nonruptured] Onset: 11-04-2021 11-04-2021 Chronic Other circulatory disease (11 sources) Inferior vena cava filter in situ; Translations: [Presence of other vascular implants and grafts] 09-02-2022 Chronic Other circulatory disease (8 sources) Presence of other vascular implants and grafts; Translations: [Other postprocedural status] Chronic Other connective tissue disease (6 sources) Recurrent falls ; Translations: [Repeated falls] Episodic Other connective tissue disease (2 sources) Swelling of lower limb; Translations: [Other specified soft tissue disorders] Episodic Other connective tissue disease (8 sources) Repeated falls; Translations: [History of fall] 06-26-2023 Episodic Other diseases of bladder and urethra (2 sources) Detrusor overactivity; Translations: [Overactive bladder] 10-06-2023 Chronic Other diseases of bladder and urethra (8 sources) Overactive bladder; Translations: [Overactive bladder] Onset: 01-10-2024 11-19-2023 Chronic Other diseases of bladder and urethra (1 source) Lesion of bladder; Translations: [Bladder disorder, unspecified] 11-19-2023 Chronic Other diseases of bladder and urethra (2 sources) Overactive bladder; Translations: [OAB (overactive bladder)] Onset: 12-16-2023 Chronic Other ear and sense organ disorders (1 source) Sensorineural hearing loss; Translations: [Sensorineural hearing loss, unspecified] 11-05-2021 Chronic Other ear and sense organ disorders (20 sources) Sensorineural hearing loss, bilateral; Translations: [Sensorineural hearing loss, bilateral] Onset: 06-28-2018 06-28-2018 Chronic Other eye disorders (20 sources) Optic cupping; Translations: [Glaucomatous optic atrophy, bilateral] Onset: 10-01-2016 10-01-2016 Chronic Other eye disorders (20 sources) Optic atrophy of right eye; Translations: [Unspecified optic atrophy] Onset: 05-01-2022 Chronic Other gastrointestinal disorders (2 sources) Diarrhea; Translations: [Diarrhea, unspecified] Episodic Other lower respiratory disease (12 sources) Nodule of lung; Translations: [Solitary pulmonary nodule] 08-31-2022 Episodic Other lower respiratory disease (2 sources) Cough; Translations: [Acute cough] 08-17-2024 Episodic Other nervous system disorders (10 sources) Walking disability; Translations: [Difficulty in walking] Chronic Other nervous system disorders (2 sources) Unspecified abnormalities of gait and mobility; Translations: [Unspecified abnormalities of gait and mobility] Onset: 09-16-2018 Episodic Other nervous system disorders (2 sources) Other abnormalities of gait and mobility; Translations: [Other abnormalities of gait and mobility] Onset: 09-16-2018 Episodic Other nervous system disorders (9 sources) Abnormal gait due to impairment of balance; Translations: [Abnormality of gait] Episodic Other nervous system disorders (9 sources) Abnormal gait; Translations: [Abnormality of gait] Episodic Other nervous system disorders (2 sources) Impairment of balance; Translations: [Other abnormalities of gait and mobility] Episodic Other non-traumatic joint disorders (10 sources) Hip pain; Translations: [Pain in joint, pelvic region and thigh] 2020 Episodic Other non-traumatic joint disorders (1 source) Pain in right shoulder; Translations: [Pain in joint, shoulder region] 04-30-2023 Episodic Other nutritional; endocrine; and metabolic disorders (20 sources) Disorder of magnesium metabolism; Translations: [Disorders of magnesium metabolism, unspecified] Onset: 12-03-2016 06-23-2018 Chronic Other nutritional; endocrine; and metabolic disorders (2 sources) Hypomagnesemia; Translations: [Hypomagnesemia] Chronic Other nutritional; endocrine; and metabolic disorders (3 sources) Loss of appetite; Translations: [Anorexia] 06-29-2023 Episodic Other nutritional; endocrine; and metabolic disorders (3 sources) Anorexia; Translations: [Anorexia] 07-09-2023 Episodic Other skin disorders (20 sources) Localized scleroderma; 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: 12-28-2011 11-05-2021 Chronic Other skin disorders (2 sources) Finding of color of limb; Translations: [Disorder of pigmentation, unspecified] Episodic Phlebitis; thrombophlebitis and thromboembolism (20 sources) Chronic deep venous thrombosis; Translations: [Chronic venous embolism and thrombosis of unspecified deep vessels of lower extremity] Onset: 04-22-2020 Resolved: 12-28-2023 11-05-2021 Chronic Pulmonary heart disease (20 sources) Pulmonary embolism; Translations: [Other pulmonary embolism without acute cor pulmonale] 10-28-2021 Episodic Residual codes; unclassified (1 source) Clouded consciousness 11-05-2021 Episodic Residual codes; unclassified (3 sources) Insomnia; Translations: [Insomnia, unspecified] Episodic Residual codes; unclassified (1 source) Acute confusion; Translations: [Disorientation, unspecified] Episodic Retinal detachments; defects; vascular occlusion; and retinopathy (20 sources) Central retinal vein occlusion; Translations: [Central retinal vein occlusion] Onset: 08-05-2015 11-05-2021 Chronic Schizophrenia and other psychotic disorders (1 source) Confusional state; Translations: [Unspecified psychosis] 11-05-2021 Chronic Spondylosis; intervertebral disc disorders; other back problems (3 sources) Back problem; Translations: [Dorsopathy, unspecified] Episodic Superficial injury; contusion (13 sources) Contusion of back; Translations: [Contusion of unspecified back wall of thorax, initial encounter] Episodic Thyroid disorders (20 sources) Hypothyroidism; Translations: [Hypothyroidism, unspecified] Chronic Unclassified (1 source) Unknown / UNK(Unknown) Onset: 06-21-2018 Unclassified (2 sources) REMOVE STITCHES 11-05-2021 Comment on above: REMOVE STITCHES Unclassified (1 source) History of uterine cancer 11-05-2021 Unclassified (1 source) Pseudophakia of both eyes 11-05-2021 Unclassified (1 source) Chronic deep vein thrombosis (DVT) 11-05-2021 Unclassified (1 source) Keratitis, superficial, punctate 11-05-2021 Unclassified (1 source) Elevated cancer antigen 125 (CA-125) 11-05-2021 Unclassified (1 source) Hearing loss, sensorineural 11-05-2021 Unclassified (1 source) Removal of staple 11-05-2021 Unclassified (2 sources) CONFUSED/UTI? 11-05-2021 Comment on above: CONFUSED/UTI? Unclassified (2 sources) PAINFUL URINATION 04-13-2023 Comment on above: PAINFUL URINATION Unclassified (1 source) Low back pain, unspecified; Translations: [Low back pain, unspecified] Onset: 04-13-2023 Unclassified (1 source) Blood Draw (CVAD) Onset: 06-11-2023 Unclassified (1 source) Radiology NM Onset: 04-17-2024 Unclassified (1 source) Acute cough; Translations: [Acute cough] Onset: 08-19-2024 Urinary tract infections (20 sources) Recurrent urinary tract infection; Translations: [Urinary tract infection, site not specified] Onset: 04-13-2023 Episodic Past or Other Problems Problem Classification Problem Date Documented Da te Episodic/Chronic Acute bronchitis (4 sources) Acute bronchitis; Translations: [Acute bronchitis, unspecified] Onset: 4 08-19-2024 Episodic Blindness and vision defects (20 sources) Regular astigmatism; Translations: [Regular astigmatism] Onset: 4 Resolved: 5 11-05-2021 Episodic Cancer of uterus (20 sources) History of malignant neoplasm of uterine body; Translations: [Personal history of malignant neoplasm of other parts of uterus] Onset: 4 11-05-2021 Episodic Complications of surgical procedures or medical care (20 sources) Anemia due to antineoplastic chemotherapy; 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] Onset: 7 Resolved: 4 03-11-2017 Chronic Conditions associated with dizziness or vertigo (5 sources) Lightheadedness; Translations: [Dizziness and giddiness] Onset: 4 Episodic E Codes: Adverse effects of medical drugs (1 source) Adverse effect of antineoplastic and immunosuppressive drugs, initial encounter; 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] Onset: 7 Episodic Genitourinary symptoms and ill-defined conditions (20 sources) Dysuria; Translations: [Dysuria] Onset: 2 Episodic Immunizations and screening for infectious disease (11 sources) Patient encounter status; Translations: [Other specified vaccination] 12-13-2023 Episodic Lymphadenitis (6 sources) Lymphadenopathy; Translations: [Localized enlarged lymph nodes] Onset: 2 Episodic Other aftercare (1 source) Encounter for therapeutic drug level monitoring; Translations: [Encounter for monitoring cardiotoxic drug therapy] Onset: 3 Episodic Other aftercare (1 source) Other exterminator termite (current) drug therapy; Translations: [Encounter for monitoring cardiotoxic drug therapy] Onset: 3 Episodic Other connective tissue disease (1 source) Other specified soft tissue disorders; Translations: [Leg swelling] Onset: 3 Episodic Other eye disorders (14 sources) Glaucomatous atrophy of optic disc; Translations: [Glaucomatous optic atrophy, bilateral] Onset: 4 Resolved: 5 Chronic Other gastrointestinal disorders (2 sources) Constipation; Translations: [Constipation, unspecified] 10-06-2023 Episodic Other gastrointestinal disorders (2 sources) Constipation, unspecified; Translations: [Constipation, unspecified] Onset: 4 Episodic Other nervous system disorders (20 sources) History of occlusion of central retinal vein; Translations: [Personal history of other diseases of the nervous system and sense organs] Onset: 0 01-23-2020 Episodic Other screening for suspected conditions (not mental disorders or infectious disease) (20 sources) Increased cancer antigen 125; Translations: [Elevated cancer antigen 125 [CA 125]] Onset: 7 11-05-2021 Episodic Other skin disorders (20 sources) Drug-related alopecia; Translations: [Other specified nonscarring hair loss] Onset: 7 12-03-2016 Episodic Other skin disorders (1 source) Disorder of pigmentation, unspecified; Translations: [Discoloration of skin of lower leg] Onset: 3 Episodic Other upper respiratory infections (2 sources) Upper respiratory infection; Translations: [URI] Onset: 4 Episodic Phlebitis; thrombophlebitis and thromboembolism (20 sources) Deep venous thrombosis; Translations: [Acute embolism and thrombosis of unspecified deep veins of unspecified lower extremity] Onset: 3 Episodic Residual codes; unclassified (1 source) Personal history of irradiation; Translations: [S/P radiation therapy] Onset: 2 Episodic Unclassified (7 sources) Onset: 4 12-13-2023 Unclassified (2 sources) Acute cough; Translations: [Acute cough] Onset: 4 08-19-2024 Results Test Name Value Interpretation Reference [facility] ([facility]) ROSITA KENNEDY ([id number]) 1945 F Date Time Provider Department 02/28/25 FRANKLIN SALMON During your visit today, we recorded the following information about you: Mara Bond Ma 02/28/2025 12:58 PM Signed NEWS DEPARTMENT INTERN from [facility] is calling with a question regarding a medication she would like to start this patient on. Nile Allen, RN 03/01/2025 9:52 AM Signed Spoke with Aurora Wolfe, nurse practitioner @ . Verified last name and of patient. Aurora will be assuming care for Rosita, under palliative services. Aurora states that patient has some sort of uterine or bladder cancer, per patients [id number]. Patient has been experiencing frequent UTI symptoms- mainly burning and frequency, but cultures are always normal. Aurora suggested a visit with urogynecology to patient and family but is also wondering if she can start the patient on vaginal estrogen. She is willing to order the medication but would like to know if this would be contraindicated with cancer. Per Aurora, patient and her family do not wish to schedule an appointment at this time, unless suggested by Dr. Salmon. 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 Plan: Plan for Cystoscopy with botox under sedation in December NO biopsies - will defer at this time Plan to hold xarelto 2-3 days prior - letter sent to Dr. Espino for recommendation (she was seeing different PCP but prefers to switch to [facility] at this time) All questions answered Franklin Salmon MD FOV: none Patient canceled her last 3 appointments with this office (see encounters). Aurora can be contacted with questions at [phone] at any time. = Routing to Dr. Salmon to to review and advise with any recommendations. Nile Allen RN Allergies As of Date: 02/28/2025 Noted Allergy Reaction CODEINE 02/24/2001 Comments: hives CONTRAST DYE (IODINE) 03/24/2023 6 - Diarrhea Comments: Diarrhea after oral contrast. ERYTHROMYCIN 08/03/2014 8 - GI Upset METHYLPREDNISOLONE 08/03/2014 4 - Hives Comments: IV SULFA (SULFONAMIDE ANTIBIOTICS) 02/24/2001 Comments: hives Date Reviewed: 02/09/2024 Reviewed by: Estela Zhang - Fully Assessed Reason for Visit: Medication Problem [65] Prescriptions as of 03/01/2025 - fluconazole (DIFLUCAN) 150 mg tablet Take 1 tablet by mouth every 72 hours. Take one pill. If no improvement in 72 hours, take an additional dose - XARELTO 20 mg tablet Take 1 tablet by mouth once daily. - solifenacin (VESICARE) 5 mg tablet Take 1 tablet by mouth once daily. - lenvatinib (LENVIMA) 20 mg/day (10 mg x 2) capsules Take 2 capsules (20 mg) by mouth once daily. - ondansetron (ZOFRAN) 8 mg tablet Take 1 tablet by mouth every 6 hours as needed for nausea/vomiting. - levothyroxine (LEVOXYL) 25 mcg tablet Take 1 tablet by mouth once daily. Take on empty stomach. For Thyroid - mirtazapine (REMERON) 15 mg tablet Take 1 tablet by mouth daily at bedtime. - meloxicam (MOBIC) 15 mg tablet Take 1 tablet by mouth once daily. With food. - atorvastatin (LIPITOR) 40 mg tablet Take 1 tablet by mouth daily at bedtime. For cholesterol. - Methenamine Hippurate (HIPREX) 1 gram tablet Take 1 tablet by mouth twice daily with meals. - furosemide (LASIX) 20 mg tablet Take one tablet every day but if looses more than 10 pounds in a week then she needs to hold it. - sertraline (ZOLOFT) 25 mg tablet Take 1 tablet by mouth once daily. - sertraline (ZOLOFT) 100 mg tablet Take 1 tablet by mouth once daily. To take along with 25 mgs to make a total of 125 mgs - travoprost (TRAVATAN Z) 0.004 % ophthalmic drops Use 1 Drop in both eyes daily at bedtime. - brimonidine-timolol (COMBIGAN) 0.2-0.5 % ophthalmic solution Use 1 Drop in the right eye twice daily. Use at 9 AM and 3 PM - ondansetron orally disintegrating (ZOFRAN ODT) 4 mg disintegrating tablet Take 1 tablet by mouth every 6 hours as needed for nausea/vomiting. - calcium carb/vitamin D3/vit K1 (VIACTIV ORAL) Take 1 tablet by mouth once daily. - MULTIVITAMIN TABLET PO Take one(1) tablet daily. 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 Normal [facility] Bacteria identifiedon 2024 Bacteria identified Cx Nom (U) Test: Urine Culture Specimen Source: Clean Catch/Voided Specimen Type: Urine Specimen Date: 02/13/2025 1239 Result Date: 02/15/2025 0851 Result Status: Final result Abnormal: No Resulting Lab: [facility] [address] [facility] [address] CULTURE No growth Normal [facility] Comment on above: Performed By: #### 1 9123-9 #### NAGY GONZALO ([id number]) [facility] ([facility]) [address] [place] [address] No Panel Informationon 02-13 Interpretation and review of laboratory results Abnormal [facility] Urinalysis complete W Reflex Culture panel (U)on 02-13-2025 Appearance (U) Turbid Abnormal Clear [facility] Bilirubin (U) [Mass/Vol] Negative NEGATIVE mg/dL [facility] Color (U) Yellow Light-Yellow, Yellow, Dark-Yellow [facility] Glucose Auto test strip (U) [Mass/Vol] Normal Normal mg/dL [facility] Ketones (U) [Mass/Vol] Negative NEGATIVE mg/d L [facility] Leukocyte esterase Auto test strip Ql (U) 250 Henrietta/uL Abnormal NEGATIVE [facility] Nitrite Auto test strip Ql (U) Negative NEGATIVE [facility] pH (U) 6.5 [pH] 5.0, 5.5, 6.0, 6.5, 7.0, 7.5, 8.0 [facility] Protein (U) [Mass/Vol] 100 (2+) Abnormal NEGAT JAIMIE, 10 (TRACE), 20 (TRACE) mg/dL [facility] RBC (U) [#/Vol] OVER (3+) Abnormal NEGATIVE mg/dL [facility] Specific gravity (U) [Rel density] 1.032 1.005 - 1.035 [facility] Urobilinogen (U) [Mass/Vol] Normal Normal mg/dL [facility] OVER is reported whe n the result is greater than the clinically reportable range. [facility] Appearance (U) Turbid Normal Clear [facility] Comment on above: Order Comment: OVER is reported when the result is greater than the clinically reportable range. Performed By: #### 1 9123-9 #### LILO SÁNCHEZ ([id number]) [facility] ([facility]) [address] [place], [place] [id number] Bilirubin (U) [Mass/Vol] Negative Normal NEGATIVE [facility] Comment on above: Order Comment: OVER is reported when the result is greater than the clinically reportable range. Performed By: #### 1 9123-9 #### LILO SÁNCHEZ ([id number]) [facility] ([facility]) [address] [place], [place] [id number] Color (U) Yellow Normal Light-Yellow, Yellow, Dark-Yellow [facility] Comment on above: Order Comment: OVER is reported when the result is greater than the clinically reportable range. Performed By: #### 1 9123-9 #### LILO SÁNCHEZ ([id number]) [facility] ([facility]) [facility] [place] [address] Glucose Auto test strip (U) [Mass/Vol] Normal Normal Normal [facility] Comment on above: Order Comment: OVER is reported when the result is greater than the clinically reportable range. Performed By: #### 1 9123-9 #### LILO SÁNCHEZ ([id number]) [facility] ([facility]) [address] [place], [place] [id number] Ketones (U) [Mass/Vol] Negative Normal NEGATIVE [facility] Comment on above: Order Comment: OVER is reported when the result is greater than the clinically reportable range. Performed By: #### 1 9123-9 #### LILO SÁNCHEZ ([id number]) [facility] ([facility]) [facility] [place] [address] Leukocyte esterase Auto test strip Ql (U) 250 Henrietta/uL Abnormal NEGATIVE [facility] Comment on above: Order Comment: OVER is reported when the result is greater than the clinically reportable range. Performed By: #### 1 9123-9 #### LILO SÁNCHEZ ([id number]) [facility] ([facility]) [address] [place] [address] Nitrite Auto test strip Ql (U) Negative Normal NEGATIVE [facility] Comment on above: Order Comment: OVER is reported when the result is greater than the clinically reportable range. Performed By: #### 1 9123-9 #### LILO SÁNCHEZ ([id number]) [facility] ([facility]) [address] [place] [address] pH (U) 6.5 [pH] Normal 5.0, 5.5, 6.0, 6.5, 7.0, 7.5, 8.0 [facility] Comment on above: Order Comment: OVER is reported when the result is greater than the clinically reportable range. Performed By: #### 1 9123-9 #### LILO SÁNCHEZ ([id number]) [facility] ([facility]) [address] [place] [address] Protein (U) [Mass/Vol] 100 (2+) Abnormal NEGAT JAIMIE, 10 (TRACE), 20 (TRACE) [facility] Comment on above: Order Comment: OVER is reported when the result is greater than the clinically reportable range. Performed By: #### 1 9123-9 #### LILO SÁNCHEZ ([id number]) [facility] ([facility]) [address] [place] [address] RBC (U) [#/Vol] OVER (3+) Abnormal NEGATIVE [facility] Comment on above: Order Comment: OVER is reported when the result is greater than the clinically reportable range. Performed By: #### 1 9123-9 #### LILO SÁNCHEZ ([id number]) [facility] ([facility]) [address] [place] [address] Specific gravity (U) [Rel density] 1.032 Normal 1.005-1.035 [facility] Comment on above: Order Comment: OVER is reported when the result is greater than the clinically reportable range. Performed By: #### 1 9123-9 #### LILO SÁNCHEZ ([id number]) [facility] ([facility]) [address] [place] [address] Urobilinogen (U) [Mass/Vol] Normal Normal Normal [facility] Comment on above: Order Comment: OVER is reported when the result is greater than the clinically reportable range. Performed By: #### 1 9123-9 #### LILO SÁNCHEZ ([id number]) [facility] ([facility]) [address] [place] [address] Urinalysis microscopic panel Auto Ql (U)on 02-13-2025 Bacteria Auto (Urine sed) [#/Area] 1+ Abnormal NONE SEEN /HPF [facility] Calcium oxalate crystals Computer assisted (U) [#/Area] 1+ NONE, 1+ /HPF [facility] Hyaline casts Auto (Urine sed) [#/Area] 3+ Abnormal NONE /LPF [facility] Mucus Auto (Urine sed) [#/Area] FEW Reference range not established. /LPF [facility] RBC Auto (Urine sed) [#/Area] >20 Abnormal NONE, 1-2, 3-5 /HPF [facility] WBC Auto (Urine sed) [#/Area] >50 Abnormal 1-5, NONE /HPF [facility] Bacteria Auto (Urine sed) [#/Area] 1+ /HPF Abnormal NONE SEEN [facility] Comment on above: Performed By: #### 1 9123-9 #### LILO SÁNCHEZ ([id number]) [facility] ([facility]) [address] [place] [address] Calcium oxalate crystals Computer assisted (U) [#/Area] 1+ /HPF Normal NONE, 1+ [facility] Comment on above: Performed By: #### 1 9123-9 #### LILO SÁNCHEZ ([id number]) [facility] ([facility]) [address] [place] [address] Hyaline casts Auto (Urine sed) [#/Area] 3+ /LPF Abnormal NONE [facility] Comment on above: Performed By: #### 1 9123-9 #### LILO SÁNCHEZ ([id number]) [facility] ([facility]) [address] [place] [address] Mucus Auto (Urine sed) [#/Area] FEW Normal Reference range not established. [facility] Comment on above: Performed By: #### 1 9123-9 #### LILO SÁNCHEZ ([id number]) [facility] ([facility]) [facility] [place] [address] RBC Auto (Urine sed) [#/Area] >20 Abnormal NONE, 1-2, 3-5 [facility] Comment on above: Performed By: #### 1 9123-9 #### LILO SÁNCHEZ ([id number]) [facility] ([facility]) [address] [place] [id number] WBC Auto (Urine sed) [#/Area] >50 Abnormal 1-5, NONE [facility] Comment on above: Performed By: #### 1 9123-9 #### LILO SÁNCHEZ ([id number]) [facility] ([facility]) [address] [place] [id number] Urine Cultureon 10-21-2024 [facility] Proteus mirabilis [place] Count 80,000-100,000 Proteus mirabilis: REACTION Ampicillin Islt CRYSTAL <=2 Ampicillin+Sulbac Islt CRYSTAL <=2 S Cefepime Islt CRYSTAL <=0.12 S cefTRIAXone Islt CRYSTAL <=0.25 S Ciprofloxacin Islt CRYSTAL <=0.06 S Gentamicin Islt CRYSTAL <=1 S levoFLOXacin Islt CRYSTAL <=0.12 S Meropenem Islt CRYSTAL 0.5 S Nitrofurantoin Islt CRYSTAL R Pip+Tazo Islt CRYSTAL <=4 S TMP SMX Islt CRYSTAL <=20 S Normal [facility] Comment on above: Performed By: #### M 100.2200 #### [facility] [address] [place], [place], [address] XR CHEST 2 VIEWSon 4 XR CHEST 2 VIEWS Interpreted By: Torres Little, STUDY: XR CHEST 2 VIEWS; 08/19/2024 12:50 pm INDICATION: Signs/Symptoms:cough COMPARISON: CT angiogram 12/01/2018 ACCESSION NUMBER(S): [id number] ORDERING CLINICIAN: PAMELA MANOCCHIO TECHNIQUE: Frontal and lateral radiographs of the chest were obtained. FINDINGS: LINES AND DEVICES: Stable right IJ Port-A-Cath. LUNGS: Stable elevation of right hemidiaphragm. Left basilar streaky atelectasis. No focal consolidation, pulmonary edema, pleural effusion or pneumothorax. CARDIOMEDIASTINAL SILHOUETTE: The cardiomediastinal silhouette is within normal limits. OTHER: No acute osseous abnormality. IVC filter. IMPRESSION: No focal consolidation. MACRO None Signed by: Torres Little 08/19/2024 1:21 PM Dictation workstation: [id number] [facility] XR Chest 2 Viewson 4 No focal consolidation. MACRO None Signed by: Torres Little 08/19/2024 1:21 PM Dictation workstation: [id number] Interpreted By: Torres Little, STUDY: XR CHEST 2 VIEWS; 08/19/2024 12:50 pm INDICATION: Signs/Symptoms:cough COMPARISON: CT angiogram 12/01/2018 ACCESSION NUMBER(S): [id number] ORDERING CLINICIAN: PAMELA CABA TECHNIQUE: Frontal and lateral radiographs of the chest were obtained. FINDINGS: LINES AND DEVICES: Stable right IJ Port-A-Cath. LUNGS: Stable elevation of right hemidiaphragm. Left basilar streaky atelectasis. No focal consolidation, pulmonary edema, pleural effusion or pneumothorax. CARDIOMEDIASTINAL SILHOUETTE: The cardiomediastinal silhouette is within normal limits. OTHER: No acute osseous abnormality. IVC filter. [facility] MMODAL Torres Little, DO - 08/19/2024 Interpreted By: Torres Little, STUDY: XR CHEST 2 VIEWS; 08/19/2024 12:50 pm INDICATION: Signs/Symptoms:cough COMPARISON: CT angiogram 12/01/2018 ACCESSION NUMBER(S): [id number] ORDERING CLINICIAN: PAMELA CABA TECHNIQUE: Frontal and lateral radiographs of the chest were obtained. FINDINGS: LINES AND DEVICES: Stable right IJ Port-A-Cath. LUNGS: Stable elevation of right hemidiaphragm. Left basilar streaky atelectasis. No focal consolidation, pulmonary edema, pleural effusion or pneumothorax. CARDIOMEDIASTINAL SILHOUETTE: The cardiomediastinal silhouette is within normal limits. OTHER: No acute osseous abnormality. IVC filter. IMPRESSION: No focal consolidation. MACRO None Signed by: Torres Little 08/19/2024 1:21 PM Dictation workstation: [id number] [facility] Work Phone: Radiology Study observation (narrative) [facility] Work Phone: XR Chest 2 ViewsOrdered By: Torres Little on 08-19-2024 [facility] Work Phone: POCT SARS-COV-2/FLU/RSV PCR SYMPTOMATIC manually resultedon 08-17-2024 FLUAV RNA NURYS+probe Ql (Resp) Not detected Not Detected [facility] Work Phone: FLUBV RNA NURYS+probe Ql (Resp) Not detected Not Detected [facility] Work Phone: Interpretation and review of laboratory results Normal [facility] Work Phone: RSV RNA NURYS+probe Ql (Resp) Not detected Not Detected [facility] Work Phone: SARS-CoV-2 (COVID-19) RNA NURYS+probe Ql (Resp) Not detected Not Detected [facility] Work Phone: [facility] Work Phone: Bacteria identifiedon 2023 Bacteria identified Cx Nom (U) Test: Urine culture Specimen Source: Clean Catch/Voided Specimen Type: Urine Specimen Date: 08/08/2024 1322 Result Date: 08/09/2024 1840 Result Status: Final result Abnormal: No Resulting Lab: [facility] [address] [address] CULTURE Clinically insignificant growth based on current clinical standards. [facility] Comment on above: Performed By: #### 6 30-4 #### EDI Wiseman ([id number]) [facility] ([facility]) [address] [place] [address] POCT UA (nonautomated w/o mi croscopy) manually resultedOrdered By: Lisseth Cowan on 08-08-2024 Appearance (U) Clear Clear [facility] Glucose Test strip (U) [Mass/Vol] Negative NEGATIVE mg/dl [facility] Hemoglobin Ql (U) LARGE (3+) Abnormal NEGATIVE [facility] Interpretation and review of laboratory results Abnormal [facility] Leukocyte esterase Test strip Ql (U) SMALL (1+) Abnormal NEGATIVE [facility] Nitrite Ql (U) Negative NEGATIVE [facility] pH (U) 6.0 [pH] No Reference Range Established [facility] POC Bilirubin, Urine Negative NEGATIVE [facility] POC Color, Urine [place] Abnormal Straw, [place] ow, Light-Yellow [facility] POC Ketones, Urine Negative NEGATIVE mg/dl [facility] Protein, Urine 300 (3+) Abnormal NEGATIVE, 30 (1+) mg/dl [facility] POC Specific [place], Urine 1.020 1.005 - 1.035 [facility] POC Urobilinogen, Urine 0.2 0.2, 1.0 EU/ DL [facility] GLUCOSE, BLOOD (POC)on 04-17 Glucose [Mass/Vol] 89 mg/dL 74 - 99 mg/dL [facility] Comment on above: Location:[facility], [address] [place] [address], [address] The Accu-Chek Inform II glucose meter has not been approved for testing on patients receiving intensive medical intervention or therapy and results from this point of care glucose test should not be used for patient management decisions in these cases. Inaccurate results may also occur from other interfering factors, such as N-acetylcysteine (blood concentrations of greater than 5mg/dL), galactose, extremes of hematocrit (<10 or >65), or high doses of ascorbic acid (vitamin C) greater than 3mg/dL. Consider alternate testing mechanisms (e.g. core lab, blood gas instrument) in the above situations. [facility] NM PET/CT SKULL-THIGH SUBQon 04-17-2024 NM PET/CT SKULL-THIGH SUBQ * * *Final Report* * * DATE OF EXAM: Apr 17 2024 1:16PM MDP 0063 - NM PET/CT SKULL-THIGH SUBQ / PROCEDURE REASON: P28-Jaqpgejgi neoplasm of uterus, unspecified site (HCC) * * * * Physician Interpretation * * * * EXAMINATION: BODY FDG PET-CT CLINICAL HISTORY: Endometrial cancer status post resection (2014) with recurrence status post multiple interventions including chemoradiation. Follow-up exam. TECHNIQUE: Radiopharmaceutical was administered intravenously followed by PET imaging from the eyes to thighs. Free breathing, low dose CT of the same body region was acquired without IV contrast for attenuation correction and anatomic localization. Unenhanced imaging is limited for the evaluation of some pathology and the acquired CT was not designed to produce diagnostic CT scan quality. Physiologic/non-patho logic uptake in some body regions could confound or obscure some pathology. * CT Dose-Length Product (DLP): 277 mGy*cm * CT Dose Reduction Employed: Yes * Blood glucose: 89 mg/dL * Injected activity: 6.7 mCi * Uptake Time: 44 minutes * Radiopharmaceutical: P83-Bpnhahjbkudxmmqbm e (FDG) COMPARISON: FDG PET/CT 05/20/2023, 02/17/2023, 11/04/2022, 06/12/2022 CORRELATION: CT chest and abdomen/pelvis 09/29/2023 RESULT: REFERENCES: FDG uptake is used as a surrogate marker for glucose metabolism. All reported standardized uptake values represent maximum SUV (SUVmax) per body weight, unless otherwise specified. SUV reference values, as follows: * Blood Pool (Descending Aorta): SUVmax 1.9 * Background Liver: SUVmax 2.2; SUVmean 1.7 Localizer Images: No additional findings. HEAD AND NECK: Head: No radiotracer avid lesion or mass effect in the imaged intracranial compartment. Aerodigestive Tract: No radiotracer avid lesion. Lymph Nodes: No radiotracer avid lymphadenopathy. Neck Soft Tissues: No radiotracer avid thyroid nodule. CHEST: Lungs and Pleura: * No radiotracer avid mass, nodule, or consolidation. No pleural effusion. * 0.7 cm medial right upper lobe nodule without increased radiotracer uptake (3:67), stable. * Note, PET is often not sensitive for lung nodules smaller than 8 mm. Lymph Nodes: * Preponderance of the previous left axillary, and paraspinal, and retrocrural/intrathor acic radiotracer avid lymphadenopathy has nearly resolved. * Residual borderline enlarged axillary nodes with blood pool level radiotracer activity. For example: 1.0 cm left level 2 node (3:80; SUVmax 1.3). * Residual 1.1 cm right eccentric retrocrural node with increased radiotracer uptake (3:48; SUVmax 6.3), previously 1.4 cm (previous SUVmax 8.9). * No new radiotracer avid lymphadenopathy. Mediastinum: No radiotracer avid mass. Cardiovascular: Blood pool activity. No pericardial effusion. Normal heart size. Thoracic aortic and coronary artery calcifications. Chest Wall: No radiotracer avid soft tissue lesion. Right chest wall port with central venous catheter tip in the right atrium. ABDOMEN AND PELVIS: Hepatobiliary: No radiotracer avid lesion. No measurable mass. Spleen: No radiotracer avid lesion. No splenomegaly. Pancreas: No radiotracer avid lesion. Atrophic. Adrenals: No radiotracer avid nodule. Urinary Tract: Physiologic radiotracer excretion in the renal collecting systems and urinary bladder. No hydronephrosis. GI Tract: No radiotracer avid lesion. No bowel dilation. Peritoneum: No radiotracer avid lesion. No ascites. Lymph Nodes: 0.9 cm periportal node with low radiotracer uptake (3:156; SUVmax 2.1). Vasculature: Blood pool activity. Vascular calcifications without an abdominal aortic aneurysm. Pelvic Organs: No radiotracer avid lesion. Hysterectomy and bilateral salpingo-oophorectomy . Vaginal cuff is symmetric. Underdistended urinary bladder with circumferential wall thickening and persistent perivesicular stranding. MUSCULOSKELETAL: Bones: * No radiotracer avid lesion. No destructive lesion. * Unchanged severe wedge-shaped compression deformity of T10 without increased radiotracer uptake. * Unchanged non-displaced linear sclerosis in both sacral ala with corresponding with insufficiency fractures. * Degenerative changes. Osteopenia. Soft Tissues: No radiotracer avid lesion. Areas of physiologic musculature uptake in the forearms, arms, paraspinal region, and proximal legs. IMPRESSION: Since 05/20/2023, constellation of findings suggest a positive treatment response while noting the degree of musculature uptake may degrade exam sensitivity. PRIMARY DISEASE SITE: * Hysterectomy without metabolically active recurrence. DEREK DISEASE: * No metabolically active pelvic or retroperitoneal lymphadenopathy. METASTATIC DISEASE: * Near complete resolution of the previous metabolically active thoracic lymphadenopathy. * Residual metabolically active enlarged retrocrural lymph node. * Residual borderline enlarged le (more content not included)... Normal [facility] Bacteria identifiedon 2023 Bacteria identified Cx Nom (U) Test: Urine Culture Specimen Source: Straight Catheter Specimen Type: Urine Specimen Date: 03/11/2024 1132 Result Date: 03/12/202446 Result Status: Final result Abnormal: No Resulting Lab: [facility] [address] [place] [address] CULTURE No growth Normal [facility] Comment on above: Performed By: #### 6 30-4 #### EDI Wiseman ([id number]) [facility] ([facility]) [address] [place] [address] Urinalysis complete panel (U )on 03-11-2024 Appearance (U) Turbid Normal Clear [facility] Comment on above: Performed By: #### 2 4356-8 #### LILO SÁNCHEZ ([id number]) [facility] ([facility]) [address] [place] [address] Bilirubin (U) [Mass/Vol] Negative Normal NEGATIVE [facility] Comment on above: Performed By: #### 2 4356-8 #### LILO SÁNCHEZ ([id number]) [facility] ([facility]) [address] [place] [address] 499[address] Color (U) Red-brown Normal Straw, Yellow [facility] Comment on above: Performed By: #### 2 4356-8 #### LILO SÁNCHEZ ([id number]) [facility] ([facility]) [address] [place] [address] Glucose Auto test strip (U) [Mass/Vol] Normal Normal Normal [facility] Comment on above: Performed By: #### 2 4356-8 #### LILO SÁNCHEZ ([id number]) [facility] ([facility]) [address] [place] [address] 48736 Ketones (U) [Mass/Vol] Negative Normal [facility] Comment on above: Performed By: #### 2 4356-8 #### LILO SÁNCHEZ ([id number]) [facility] ([facility]) [address] [place] [address] 60168 Leukocyte esterase Auto test strip Ql (U) 250 [place]/???L Abnormal NEGATIVE [facility] Comment on above: Performed By: #### 2 4356-8 #### LILO SÁNCHEZ ([id number]) [facility] ([facility]) [address] [place] [address] 45692 Nitrite Auto test strip Ql (U) Negative Normal NEGATIVE [facility] Comment on above: Performed By: #### 2 435-8 #### LILO SÁNCHEZ ([id number]) [facility] ([facility]) [address] [place] [address] 29114 pH (U) 6.0 [pH] Normal 5.0, 5.5, 6.0, 6.5, 7.0, 7.5, 8.0 [facility] Comment on above: Performed By: #### 2 435-8 #### LILO SÁNCHEZ ([id number]) [facility] ([facility]) [address] [place] [address] 29130 Protein (U) [Mass/Vol] 200 (2+) Abnormal NEGAT JAIMIE, 10 (TRACE), 20 (TRACE) [facility] Comment on above: Performed By: #### 2 4356-8 #### LILO SÁNCHEZ ([id number]) [facility] ([facility]) [address] [place] [address] 25002 RBC (U) [#/Vol] OVER (3+) Abnormal NEGATIVE [facility] Comment on above: Performed By: #### 2 4356-8 #### LILO SÁNCHEZ ([id number]) [facility] ([facility]) [address] [place] [address] 79504 Specific gravity (U) [Rel density] 1.023 Normal 1.005-1.035 [facility] Comment on above: Performed By: #### 2 4356-8 #### LILO SÁNCHEZ ([id number]) [facility] ([facility]) [address] [place] [address] 24172 Urobilinogen (U) [Mass/Vol] Normal Normal Normal [facility] Comment on above: Performed By: #### 2 4356-8 #### LILO SÁNCHEZ ([id number]) [facility] ([facility]) [address] [place] [address] 35948 Urinalysis microscopic panel Auto Ql (U)on 03-11-2024 Epithelial cells.squamous Auto (Urine sed) [#/Area] 1-9 (SPARSE) Normal Reference range not established. [facility] Comment on above: Performed By: #### 5 3315-8 #### LILO SÁNCHEZ ([id number]) [facility] ([facility]) [address] [place] [address] Mucus Auto (Urine sed) [#/Area] FEW Normal Reference range not established. [facility] Comment on above: Performed By: #### 5 3315-8 #### LILO SÁNCHEZ ([id number]) [facility] ([facility]) [address] [place] [address] 34420 RBC Auto (Urine sed) [#/Area] >20 Abnormal NONE, 1-2, 3-5 [facility] Comment on above: Performed By: #### 5 3315-8 #### LILO SÁNCHEZ ([id number]) [facility] ([facility]) [address] [place] [address] 36456 WBC Auto (Urine sed) [#/Area] >50 Abnormal 1-5, NONE [facility] Comment on above: Performed By: #### 5 3315-8 #### LILO SÁNCHEZ ([id number]) [facility] ([facility]) [address] [place] [address] 94292 Bacteria identifiedon 2023 Bacteria identified Cx Nom (U) Test: Urine Culture Specimen Source: Clean Catch/Voided Specimen Type: Urine Specimen Date: 02/25/2024 1455 Result Date: 02/27/2024 0912 Result Status: Final result Abnormal: No Resulting Lab: [facility] [address] [place] [address] CULTURE No significant growth Normal [facility] Comment on above: Performed By: #### 6 30-4 #### EDI Wiseman ([id number]) [facility] ([facility]) [address] [place] [address] CBC W Auto Differential pane l (Bld)on 02-25-2024 Basophils (Bld) [#/Vol] 0.05 10*3/uL [facility] Basophils/100 WBC (Bld) 0.6 % 0.0 - 2.0 % [facility] Eosinophils (Bld) [#/Vol] 0.55 10*3/uL High [facility] Eosinophils/100 WBC (Bld) 6.4 % 0.0 - 6.0 % [facility] Erythrocyte distribution width (RBC) [Ratio] 15.0 % High 11.5 - 14.5 % [facility] Hematocrit (Bld) [Volume fraction] 37.0 % 36.0 - 46.0 % [facility] Hemoglobin (Bld) [Mass/Vol] 10.8 g/dL Low 12.0 - 16.0 g/dL [facility] Immature granulocytes (Bld) [#/Vol] 0.03 10*3/uL [facility] Immature granulocytes/100 WBC (Bld) 0.4 % 0.0 - 0.9 % [facility] Comment on above: Immature Granulocyte Count (IG) includes promyelocytes, myelocytes and metamyelocytes but does not include bands. Percent differential counts (%) should be interpreted in the context of the absolute cell counts (cells/UL). Interpretation and review of laboratory results Abnormal [facility] Lymphocytes (Bld) [#/Vol] 1.54 10*3/uL [facility] Lymphocytes/100 WBC (Bld) 18.0 % 13.0 - 44.0 % [facility] MCH (RBC) [Entitic mass] 25.2 pg Low 26.0 - 34.0 pg [facility] MCHC (RBC) [Mass/Vol] 29.2 g/dL Low 32.0 - 36.0 g/dL [facility] MCV (RBC) [Entitic vol] 86 fL 80 - 100 fL [facility] Monocytes (Bld) [#/Vol] 0.75 10*3/uL [facility] Monocytes/100 WBC (Bld) 8.8 % 2.0 - 10.0 % [facility] Neutrophils (Bld) [#/Vol] 5.64 10*3/uL High [facility] Comment on above: Percent differential counts (%) should be interpreted in the context of the absolute cell counts (cells/uL). Neutrophils/100 WBC (Bld) 65.8 % 40.0 - 80.0 % [facility] Nucleated RBC/100 WBC (Bld) [Ratio] 0.0 % [facility] Platelets (Bld) [#/Vol] 363 10*3/uL [facility] RBC (Bld) [#/Vol] 4.28 10*6/uL [facility] WBC (Bld) [#/Vol] 8.6 10*3/uL [facility] Basophils (Bld) [#/Vol] 0.05 x10*3/uL Normal 0.00-0.10 [facility] Comment on above: Performed By: #### 5 7021-8 #### LILO SÁNCHEZ ([id number]) [facility] ([facility]) [address] [place] [address] 99547 Basophils/100 WBC (Bld) 0.6 % Normal 0.0-2.[address] [facility] Comment on above: Performed By: #### 5 7021-8 #### LILO SÁNCHEZ ([id number]) [facility] ([facility]) [address] [place] [address] Eosinophils (Bld) [#/Vol] 0.55 x10*3/uL High 0.00-0.40 [facility] Comment on above: Performed By: #### 5 7021-8 #### LILO SÁNCHEZ ([id number]) [facility] ([facility]) [facility] [place] [address] Eosinophils/100 WBC (Bld) 6.4 % Normal 0.0-6.0 [facility] Comment on above: Performed By: #### 5 7021-8 #### LILO SÁNCHEZ ([id number]) [facility] ([facility]) [address] [place] [address] Erythrocyte distribution width (RBC) [Ratio] 15.0 % High 11.5-14.5 [facility] Comment on above: Performed By: #### 5 7021-8 #### LILO SÁNCHEZ ([id number]) [facility] ([facility]) [address] [place] [address] Hematocrit (Bld) [Volume fraction] 37.0 % Normal 36.0-46.0 [facility] Comment on above: Performed By: #### 5 7021-8 #### LILO SÁNCHEZ ([id number]) [facility] ([facility]) [address] [place] [address] Hemoglobin (Bld) [Mass/Vol] 10.8 g/dL Low 12.0-16.0 [facility] Comment on above: Performed By: #### 5 7021-8 #### LILO SÁNCHEZ ([id number]) [facility] ([facility]) [address] [place], [place] [address] Immature granulocytes (Bld) [#/Vol] 0.03 x10*3/uL Normal 0.00-0.50 [facility] Comment on above: Performed By: #### 5 7021-8 #### LILO SÁNCHEZ ([id number]) [facility] ([facility]) [address] [place], [place] [address] Immature granulocytes/100 WBC (Bld) 0.4 % Normal 0.0-0.9 [facility] Comment on above: Result Comment: Le ture Granulocyte Count (IG) includes promyelocytes, myelocytes and metamyelocytes but does not include bands. Percent differential counts (%) should be interpreted in the context of the absolute cell counts (cells/UL). Performed By: #### 5 7021-8 #### LILO SÁNCHEZ ([id number]) [facility] ([facility]) [address] [place] [address] 97741 Lymphocytes (Bld) [#/Vol] 1.54 x10*3/uL Normal 0.80-3.00 [facility] Comment on above: Performed By: #### 5 7021-8 #### LILO SÁNCHEZ ([id number]) [facility] ([facility]) [address] [place] [address] 48950 Lymphocytes/100 WBC (Bld) 18.0 % Normal 13.0-44.0 [facility] Comment on above: Performed By: #### 5 7021-8 #### LILO SÁNCHEZ ([id number]) [facility] ([facility]) [address] [place] [address] 93374 MCH (RBC) [Entitic mass] 25.2 pg Low 26.0-34.0 [facility] Comment on above: Performed By: #### 5 7021-8 #### LILO SÁNCHEZ ([id number]) [facility] ([facility]) [address] [place] [address] 75386 MCHC (RBC) [Mass/Vol] 29.2 g/dL Low 32.0-36.0 [facility] Comment on above: Performed By: #### 5 7021-8 #### LILO SÁNCHEZ ([id number]) [facility] ([facility]) [address] [place] [address] 02952 MCV (RBC) [Entitic vol] 86 fL Normal 80-[address] [facility] Comment on above: Performed By: #### 5 7021-8 #### LILO SÁNCHEZ ([id number]) [facility] ([facility]) [address] [place] [address] 46580 Monocytes (Bld) [#/Vol] 0.75 x10*3/uL Normal 0.05-0.80 [facility] Comment on above: Performed By: #### 5 7021-8 #### LILO SÁNCHEZ ([id number]) [facility] ([facility]) [address] [place] [address] 25996 Monocytes/100 WBC (Bld) 8.8 % Normal 2.0-10.[address] [facility] Comment on above: Performed By: #### 5 7021-8 #### LILO SÁNCHEZ ([id number]) [facility] ([facility]) [address] [place] [address] 37286 Neutrophils (Bld) [#/Vol] 5.64 x10*3/uL High 1.60-5.50 [facility] Comment on above: Result Comment: Perc ent differential counts (%) should be interpreted in the context of the absolute cell counts (cells/uL). Performed By: #### 5 7021-8 #### LILO SÁNCHEZ ([id number]) [facility] ([facility]) [address] [place] [address] 57569 Neutrophils/100 WBC (Bld) 65.8 % Normal 40.0-80.0 [facility] Comment on above: Performed By: #### 5 7021-8 #### LILO SÁNCHEZ ([id number]) [facility] ([facility]) [address] [place] [address] 36883 Nucleated RBC/100 WBC (Bld) [Ratio] 0.0 /100 WBCs Normal 0.0-0.0 [facility] Comment on above: Performed By: #### 5 7021-8 #### LILO SÁNCHEZ ([id number]) [facility] ([facility]) [address] [place] [address] [id number] Platelets (Bld) [#/Vol] 363 x10*3/uL Normal 150-450 [facility] Comment on above: Performed By: #### 5 7021-8 #### LILO SÁNCHEZ ([id number]) [facility] ([facility]) [address] [place] [address] [id number] RBC (Bld) [#/Vol] 4.28 x10*6/uL Normal 4.00-5.[address] [facility] Comment on above: Performed By: #### 5 7021-8 #### LILO SÁNCHEZ ([id number]) [facility] ([facility]) [address] [place] [address] 62280 WBC (Bld) [#/Vol] 8.6 x10*3/uL Normal 4.4-11.3 [facility] Comment on above: Performed By: #### 5 7021-8 #### NAGY GONZALO ([id number]) [facility] ([facility]) [address] [place] [address] CT ABDOMEN PELVIS W IV CONTR Nay 02-25-2024 CT ABDOMEN PELVIS W IV CONTRAST Interpreted By: Jason Orellana, STUDY: CT ABDOMEN PELVIS W IV CONTRAST; 02/25/2024 3:50 pm INDICATION: Signs/Symptoms:abdomi nal distention. COMPARISON: 08/08/2012 ACCESSION NUMBER(S): [id number] ORDERING CLINICIAN: BAHMAN ANN TECHNIQUE: CT of the abdomen and pelvis was performed. Standard contiguous axial images were obtained at 3 mm slice thickness through the abdomen and pelvis. Coronal and sagittal reconstructions at 3 mm slice thickness were performed. 68 ml of contrast Omnipaque 350 were administered intravenously without immediate complication. FINDINGS: LOWER CHEST: Bandlike opacity in the left lung base likely postinflammatory scarring. ABDOMEN: LIVER: There is a geographic area of non masslike hypoattenuation located high in the dome of the medial left liver lobe segment extending caudally to the falciform fissure. Its CT appearance is most suggestive of unusually large area of focal fatty infiltration. No other focal liver abnormalities are seen. BILE DUCTS: The there is mild dilation of the intrahepatic bile ducts. The extrahepatic common duct measures 9 mm. The etiology of this is uncertain. GALLBLADDER: The gallbladder appears normal. PANCREAS: Parenchymal atrophy otherwise unremarkable. SPLEEN: Within normal limits. ADRENAL GLANDS: Bilateral adrenal glands appear normal. KIDNEYS AND URETERS: There is new onset multifocal cortical scarring in the left kidney. There are patchy areas of hypoattenuation in the right kidney which may represent areas of focal upper pole pyelonephritis. There is mild right hydronephrosis. There is mild enhanced thickening of the urothelium of the right renal pelvis and proximal ureter. There is no left hydroureteral nephrosis or hydroureter. PELVIS: BLADDER: The bladder is abnormal with considerable irregular thickening of the urinary bladder. Correlate clinically for for presence of cystitis. This is a new finding compared to the prior exam. REPRODUCTIVE ORGANS: Surgically absent BOWEL: The stomach is unremarkable. Small bowel loops are mildly dilated with several gas fluid levels but no transition site of obstruction. There is a very large amount of stool in the somewhat dilated colon consistent with constipation. Extensive colonic diverticulosis but no mural thickening to suggest diverticulitis. The appendix is not definitely visualized. There is however no pericecal stranding or fluid. VESSELS: There is no aneurysmal dilatation of the abdominal aorta. The IVC appears normal. IVC filter in place. 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 PERITONEUM/RETROPERIT ONEUM/LYMPH NODES: No ascites or free air, no fluid collection. No abdominopelvic lymphadenopathy is present. BONES AND ABDOMINAL WALL: No suspicious osseous lesions are identified. 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 There is severe collapse of the T10 vertebral body with sclerosis. No definite acute fracture lines are seen. This is new from the CT in 2011. There is no compromise the spinal canal. The abdominal wall soft tissues appear intact. The IMPRESSION: 1. Severe constipation with some associated obstipation. 2. Mild dilation of the bile ducts which is new from the prior. Correlate with biochemical studies. 3. In the geographic hypoattenuation in the left liver lobe with an appearance suggestive of a relatively large area of focal fatty infiltration. 4. Possible cystitis with associated right-sided upper urinary tract infection. Correlate with urinalysis and clinically.. Very mild right hydronephrosis MACRO: None Signed by: Jason Orellana 02/25/2024 4:43 PM Dictation workstation: [id number] [facility] CT Abdomen and Pelvis W cont rast Kady 02-25-2024 1. Severe constipation with some associated obstipation. 2. Mild dilation of the bile ducts which is new from the prior. Correlate with biochemical studies. 3. In the geographic hypoattenuation in the left liver lobe with an appearance suggestive of a relatively large area of focal fatty infiltration. 4. Possible cystitis with associated right-sided upper urinary tract infection. Correlate with urinalysis and clinically.. Very mild right hydronephrosis MACRO: None Signed by: Jason Orellana 02/25/2024 4:43 PM Dictation workstation: [id number] MMODAL Interpreted By: Jason Orellana, STUDY: CT ABDOMEN PELVIS W IV CONTRAST; 02/25/2024 3:50 pm INDICATION: Signs/Symptoms:abdomi nal distention. COMPARISON: 08/08/2012 ACCESSION NUMBER(S): [id number] ORDERING CLINICIAN: BAHMAN ANN TECHNIQUE: CT of the abdomen and pelvis was performed. Standard contiguous axial images were obtained at 3 mm slice thickness through the abdomen and pelvis. Coronal and sagittal reconstructions at 3 mm slice thickness were performed. 68 ml of contrast Omnipaque 350 were administered intravenously without immediate complication. FINDINGS: LOWER CHEST: Bandlike opacity in the left lung base likely postinflammatory scarring. ABDOMEN: LIVER: There is a geographic area of non masslike hypoattenuation located high in the dome of the medial left liver lobe segment extending caudally to the falciform fissure. Its CT appearance is most suggestive of unusually large area of focal fatty infiltration. No other focal liver abnormalities are seen. BILE DUCTS: The there is mild dilation of the intrahepatic bile ducts. The extrahepatic common duct measures 9 mm. The etiology of this is uncertain. GALLBLADDER: The gallbladder appears normal. PANCREAS: Parenchymal atrophy otherwise unremarkable. SPLEEN: Within normal limits. ADRENAL GLANDS: Bilateral adrenal glands appear normal. KIDNEYS AND URETERS: There is new onset multifocal cortical scarring in the left kidney. There are patchy areas of hypoattenuation in the right kidney which may represent areas of focal upper pole pyelonephritis. There is mild right hydronephrosis. There is mild enhanced thickening of the urothelium of the right renal pelvis and proximal ureter. There is no left hydroureteral nephrosis or hydroureter. PELVIS: BLADDER: The bladder is abnormal with considerable irregular thickening of the urinary bladder. Correlate clinically for for presence of cystitis. This is a new finding compared to the prior exam. REPRODUCTIVE ORGANS: Surgically absent BOWEL: The stomach is unremarkable. Small bowel loops are mildly dilated with several gas fluid levels but no transition site of obstruction. There is a very large amount of stool in the somewhat dilated colon consistent with constipation. Extensive colonic diverticulosis but no mural thickening to suggest diverticulitis. The appendix is not definitely visualized. There is however no pericecal stranding or fluid. VESSELS: There is no aneurysmal dilatation of the abdominal aorta. The IVC appears normal. IVC filter in place. 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 PERITONEUM/RETROPERIT ONEUM/LYMPH NODES: No ascites or free air, no fluid collection. No abdominopelvic lymphadenopathy is present. BONES AND ABDOMINAL WALL: No suspicious osseous lesions are identified. 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 There is severe collapse of the T10 vertebral body with sclerosis. No definite acute fracture lines are seen. This is new from the CT in 2012. There is no compromise the spinal canal. The abdominal wall soft tissues appear intact. The MMODAL Jason Orellana MD - 02/25/2024 Interpreted By: Jason Orellana, STUDY: CT ABDOMEN PELVIS W IV CONTRAST; 02/25/2024 3:50 pm INDICATION: Signs/Symptoms:abdomi nal distention. COMPARISON: 08/08/2012 ACCESSION NUMBER(S): [id number] ORDERING CLINICIAN: BAHMAN ANN TECHNIQUE: CT of the abdomen and pelvis was performed. Standard contiguous axial images were obtained at 3 mm slice thickness through the abdomen and pelvis. Coronal and sagittal reconstructions at 3 mm slice thickness were performed. 68 ml of contrast Omnipaque 350 were administered intravenously without immediate complication. FINDINGS: LOWER CHEST: Bandlike opacity in the left lung base likely postinflammatory scarring. ABDOMEN: LIVER: There is a geographic area of non masslike hypoattenuation located high in the dome of the medial left liver lobe segment extending caudally to the falciform fissure. Its CT appearance is most suggestive of unusually large area of focal fatty infiltration. No other focal liver abnormalities are seen. BILE DUCTS: The there is mild dilation of the intrahepatic bile ducts. The extrahepatic common duct measures 9 mm. The etiology of this is uncertain. GALLBLADDER: The gallbladder appears normal. PANCREAS: Parenchymal atrophy otherwise unremarkable. SPLEEN: Within normal limits. ADRENAL GLANDS: Bilateral adrenal glands appear normal. KIDNEYS AND URETERS: There is new onset multifocal cortical scarring in the left kidney. There are patchy areas of hypoattenuation in the right kidney which may represent areas of focal upper pole pyelonephritis. There is mild right hydronephrosis. There is mild enhanced thickening of the urothelium of the right renal pelvis and proximal ureter. There is no left hydroureteral nephrosis or hydroureter. PELVIS: BLADDER: The bladder is abnormal with considerable irregular thickening of the urinary bladder. Correlate clinically for for presence of cystitis. This is a new finding compared to the prior exam. REPRODUCTIVE ORGANS: Surgically absent BOWEL: The stomach is unremarkable. Small bowel loops are mildly dilated with several gas fluid levels but no transition site of obstruction. There is a very large amount of stool in the somewhat dilated colon consistent with constipation. Extensive colonic diverticulosis but no mural thickening to suggest diverticulitis. The appendix is not definitely visualized. There is however no pericecal stranding or fluid. VESSELS: There is no aneurysmal dilatation of the abdominal aorta. The IVC appears normal. IVC filter in place. 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 PERITONEUM/RETROPERIT ONEUM/LYMPH NODES: No ascites or free air, no fluid collection. No abdominopelvic lymphadenopathy is present. BONES AND ABDOMINAL WALL: No suspicious osseous lesions are identified. 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 There is severe collapse of the T10 vertebral body with sclerosis. No definite acute fracture lines are seen. This is new from the CT in 2011. There is no compromise the spinal canal. The abdominal wall soft tissues appear intact. The IMPRESSION: 1. Severe constipation with some associated obstipation. 2. Mild dilation of the bile ducts which is new from the prior. Correlate with biochemical studies. 3. In the geographic hypoattenuation in the left liver lobe with an appearance suggestive of a relatively large area of focal fatty infiltration. 4. Possible cystitis with associated right-sided upper urinary tract infection. Correlate with urinalysis and clinically.. Very mild right hydronephrosis MACRO: None Signed by: Jason Orellana 02/25/2024 4:43 PM Dictation workstation: [id number] [facility] Work Phone: [facility] Work Phone: CT HEAD WO IV CONTRASTon CT HEAD WO IV CONTRAST Interpreted By: aJson Orellana, STUDY: CT HEAD WO IV CONTRAST; 02/25/2024 3:50 pm INDICATION: Signs/Symptoms:dizzin ess. COMPARISON: 12/13/2018 ACCESSION NUMBER(S): [id number] ORDERING CLINICIAN: BAHMAN ANN TECHNIQUE: Noncontrast axial CT scan of head was performed. Angled reformats in brain and bone windows were generated. The images were reviewed in bone, brain, blood and soft tissue windows. FINDINGS: CSF Spaces: Enlarged due to parenchymal volume loss. Normal configuration with intact basal cisterns. There is no extraaxial fluid collection. 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 Minimal periventricular deep white matter hypoattenuation unchanged from prior. The metcalf-white differentiation is intact. There is no mass effect or midline shift. There is no intracranial hemorrhage. Calvarium: The calvarium is unremarkable. Paranasal sinuses and mastoids: Visualized paranasal sinuses and mastoids are clear. IMPRESSION: No evidence of acute cortical infarct or intracranial hemorrhage. No evidence of intracranial hemorrhage or displaced skull fracture. MACRO: None Signed by: Jason Orellana 02/25/2024 4:30 PM Dictation workstation: [id number] [facility] CT Head WO contraston 2023 No evidence of acute cortical infarct or intracranial hemorrhage. No evidence of intracranial hemorrhage or displaced skull fracture. MACRO: None Signed by: Jason Orellana 02/25/2024 4:30 PM Dictation workstation: [id number] MMODAL Interpreted By: Jason Orellana, STUDY: CT HEAD WO IV CONTRAST; 02/25/2024 3:50 pm INDICATION: Signs/Symptoms:dizzin ess. COMPARISON: 12/13/2018 ACCESSION NUMBER(S): [id number] ORDERING CLINICIAN: BAHMAN ANN TECHNIQUE: Noncontrast axial CT scan of head was performed. Angled reformats in brain and bone windows were generated. The images were reviewed in bone, brain, blood and soft tissue windows. FINDINGS: CSF Spaces: Enlarged due to parenchymal volume loss. Normal configuration with intact basal cisterns. There is no extraaxial fluid collection. 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 Minimal periventricular deep white matter hypoattenuation unchanged from prior. The metcalf-white differentiation is intact. There is no mass effect or midline shift. There is no intracranial hemorrhage. Calvarium: The calvarium is unremarkable. Paranasal sinuses and mastoids: Visualized paranasal sinuses and mastoids are clear. MMODAL Jason Orellana MD - 02/25/2024 Interpreted By: Jason Orellana, STUDY: CT HEAD WO IV CONTRAST; 02/25/2024 3:50 pm INDICATION: Signs/Symptoms:dizzin ess. COMPARISON: 12/13/2018 ACCESSION NUMBER(S): [id number] ORDERING CLINICIAN: BAHMAN ANN TECHNIQUE: Noncontrast axial CT scan of head was performed. Angled reformats in brain and bone windows were generated. The images were reviewed in bone, brain, blood and soft tissue windows. FINDINGS: CSF Spaces: Enlarged due to parenchymal volume loss. Normal configuration with intact basal cisterns. There is no extraaxial fluid collection. 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 Minimal periventricular deep white matter hypoattenuation unchanged from prior. The metcalf-white differentiation is intact. There is no mass effect or midline shift. There is no intracranial hemorrhage. Calvarium: The calvarium is unremarkable. Paranasal sinuses and mastoids: Visualized paranasal sinuses and mastoids are clear. IMPRESSION: No evidence of acute cortical infarct or intracranial hemorrhage. No evidence of intracranial hemorrhage or displaced skull fracture. MACRO: None Signed by: Jason Orellana 02/25/2024 4:30 PM Dictation workstation: [id number] [facility] Work Phone: CT Head WO contrastOrdered B y: Jason Orellana on 02-25-2024 [facility] Work Phone: Comprehensive metabolic 2000 panelon 02-25-2024 Albumin BCP dye [Mass/Vol] 4.5 g/dL 3.4 - 5.0 g/dL [facility] ALP [Catalytic activity/Vol] 83 U/L 33 - 136 U/L [facility] ALT With P-5'-P [Catalytic activity/Vol] 8 U/L 7 - 45 U/L [facility] Comment on above: Patients treated wit h Sulfasalazine may generate falsely decreased results for ALT. Anion gap [Moles/Vol] 12 mmol/L 10 - 20 mmol/L [facility] AST With P-5'-P [Catalytic activity/Vol] 17 U/L 9 - 39 U/L [facility] Bilirubin [Mass/Vol] 0.3 mg/dL 0.0 - 1 .2 mg/dL [facility] Calcium [Mass/Vol] 9.3 mg/dL 8.6 - 10. 3 mg/dL [facility] Chloride [Moles/Vol] 107 mmol/L 98 - 10 7 mmol/L [facility] CO2 [Moles/Vol] 29 mmol/L 21 - 32 mmol/L [facility] Creatinine [Mass/Vol] 0.79 mg/dL 0.50 - 1.05 mg/dL [facility] GFR/1.73 sq M.predicted among non-blacks MDRD (S/P/Bld) [Vol rate/Area] 78 mL/min/{1.73_m2} - PINF [facility] Comment on above: Calculations of jefry mated GFR are performed using the 2020 CKD-EPI Study Refit equation without the race variable for the IDMS-Traceable creatinine methods. https://jasn.asnjournals.org/content/early/ASN.2020 154897 Glucose [Mass/Vol] 98 mg/dL 74 - 99 mg/dL [facility] Potassium [Moles/Vol] 3.8 mmol/L 3.5 - 5.3 mmol/L [facility] Protein [Mass/Vol] 6.8 g/dL 6.4 - 8.2 g/dL [facility] Sodium [Moles/Vol] 144 mmol/L 136 - 145 mmol/L [facility] Urea nitrogen [Mass/Vol] 23 mg/dL 6 - 23 mg/dL [facility] Albumin BCP dye [Mass/Vol] 4.5 g/dL Normal 3.4-5.0 [facility] Comment on above: Performed By: #### 2 4323-8 #### LILO SÁNCHEZ ([id number]) [facility] ([facility]) [address] [place] [address] ALP [Catalytic activity/Vol] 83 U/L Normal 33-136 [facility] Comment on above: Performed By: #### 2 4323-8 #### LILO SÁNCHEZ ([id number]) [facility] ([facility]) [address] [place] [address] ALT With P-5'-P [Catalytic activity/Vol] 8 U/L Normal 7-45 [facility] Comment on above: Result Comment: Brigid ents treated with Sulfasalazine may generate falsely decreased results for ALT. Performed By: #### 2 4323-8 #### LILO SÁNCHEZ ([id number]) [facility] ([facility]) [address] [place] [address] Anion gap [Moles/Vol] 12 mmol/L Normal 10-20 [facility] Comment on above: Performed By: #### 2 4323-8 #### LILO SÁNCHEZ ([id number]) [facility] ([facility]) [address] [place] [address] 39841 AST With P-5'-P [Catalytic activity/Vol] 17 U/L Normal 9-39 [facility] Comment on above: Performed By: #### 2 4323-8 #### LILO SÁNCHEZ ([id number]) [facility] ([facility]) [address] [place] [address] Bilirubin [Mass/Vol] 0.3 mg/dL Normal 0.0-1.[address] [facility] Comment on above: Performed By: #### 2 4323-8 #### LILO SÁNCHEZ ([id number]) [facility] ([facility]) [address] [place] [address] Calcium [Mass/Vol] 9.3 mg/dL Normal 8.6-10.3 [facility] Comment on above: Performed By: #### 2 4323-8 #### LILO SÁNCHEZ ([id number]) [facility] ([facility]) [address] [place] [address] Chloride [Moles/Vol] 107 mmol/L Normal 98-[address] [facility] Comment on above: Performed By: #### 2 4323-8 #### LILO SÁNCHEZ ([id number]) [facility] ([facility]) [address] [place] [address] CO2 [Moles/Vol] 29 mmol/L Normal 21-32 [facility] Comment on above: Performed By: #### 2 4323-8 #### LILO SÁNCHEZ ([id number]) [facility] ([facility]) [address] [place] [address] 63500 Creatinine [Mass/Vol] 0.79 mg/dL Normal 0.50-1.05 [facility] Comment on above: Performed By: #### 2 432-8 #### LILO SÁNCHEZ ([id number]) [facility] ([facility]) [address] [place] [address] 36870 Glomerular filtration rate/1.73 sq M.predicted 78 mL/min/1.73m*2 Normal >60 [facility] Comment on above: Result Comment: Calc ulations of estimated GFR are performed using the 2020 CKD-EPI Study Refit equation without the race variable for the IDMS-Traceable creatinine methods. https://jasn.asnjournals.org/content/early/ASN.2020 786363 Performed By: #### 2 432-8 #### LILO SÁNCHEZ ([id number]) [facility] ([facility]) [address] [place] [address] 11434 Glucose [Mass/Vol] 98 mg/dL Normal 74-99 [facility] Comment on above: Performed By: #### 2 4323-8 #### LILO SÁNCHEZ ([id number]) [facility] ([facility]) [address] [place] [address] 98036 Potassium [Moles/Vol] 3.8 mmol/L Normal 3.5-5.3 [facility] Comment on above: Performed By: #### 2 4323-8 #### LILO SÁNCHEZ ([id number]) [facility] ([facility]) [address] [place] [address] 50175 Protein [Mass/Vol] 6.8 g/dL Normal 6.4-8.2 [facility] Comment on above: Performed By: #### 2 4323-8 #### LILO SÁNCHEZ ([id number]) [facility] ([facility]) [address] [place] [address] Sodium [Moles/Vol] 144 mmol/L Normal 136-145 [facility] Comment on above: Performed By: #### 2 4323-8 #### LILO SÁNCHEZ ([id number]) [facility] ([facility]) [facility] [place] [address] Urea nitrogen [Mass/Vol] 23 mg/dL Normal 6-23 [facility] Comment on above: Performed By: #### 2 4323-8 #### LILO SÁNCHEZ ([id number]) [facility] ([facility]) [address] [place], [place] [address] ECG 12-LEADon 02-25-2024 ECG 12-LEAD Ventricular Rate 87 Atrial Rate 87 P-R Interval 148 QRS Duration 66 Q-T Interval 362 QTC Calculation(Bazett) 435 P [place] 72 R [place] 40 T [place] 56 QRS Count 14 Q Onset 228 P Onset 154 P Offset 208 T Offset 409 QTC Fredericia 409 Diagnosis Sinus rhythm with Premature atrial complexes Septal infarct , age undetermined Abnormal ECG When compared with ECG of 12-AUG-2018 10:23, Septal infarct is now Present Nonspecific T wave abnormality now evident in Anterior leads See ED provider note for full interpretation and clinical correlation Confirmed by Sofiya Calderón ([id number]) on 02/27/2024 10:13:53 AM Normal [facility] Magnesiumon 02-25-2024 Magnesium [Mass/Vol] 1.94 mg/dL 1.60 - 2.40 mg/dL [facility] Magnesium [Mass/Vol] 1.94 mg/dL Normal 1.60-2.[address] [facility] Comment on above: Performed By: #### 1 9123-9 #### LILO SÁNCHEZ ([id number]) [facility] ([facility]) [address] [place], [place] [id number] No Panel Informationon 02-24 Interpretation and review of laboratory results Abnormal [facility] Radiology Study observation (narrative) [facility] Work Phone: Interpretation and review of laboratory results Normal [facility] Tropinin I.cardiac panel Hig h sensitivity methodon 02-25-2024 Interpretation and review of laboratory results Normal [facility] Less than 99th percentile of normal range cutoff- Female and children under 18 years old <14 ng/L; Male <21 ng/L: Negative Repeat testing should be performed if clinically indicated. Female and children under 18 years old 14-50 ng/L; Male 21-50 ng/L: Consistent with possible cardiac damage and possible increased clinical risk. Serial measurements may help to assess extent of myocardial damage. >50 ng/L: Consistent with cardiac damage, increased clinical risk and myocardial infarction. Serial measurements may help assess extent of myocardial damage. NOTE: Children less than 1 year old may have higher baseline troponin levels and results should be interpreted in conjunction with the overall clinical context. NOTE: Troponin I testing is performed using a different testing methodology at [facility] than at [facility]. Direct result comparisons should only be made within the same method. [facility] Troponin I, High Sensitivity on 02-25-2024 Tropinin I.cardiac panel High sensitivity method 8 ng/L 0 - 13 ng/L [facility] Troponin I.cardiac panelon 0 02-25-2024 Tropinin I.cardiac panel High sensitivity method 8 ng/L Normal 0-13 [facility] Comment on above: Order Comment: Less than 99th percentile of normal range cutoff- Female and children under 18 years old <14 ng/L; Male <21 ng/L: Negative Repeat testing should be performed if clinically indicated. Female and children under 18 years old 14-50 ng/L; Male 21-50 ng/L: Consistent with possible cardiac damage and possible increased clinical risk. Serial measurements may help to assess extent of myocardial damage. >50 ng/L: Consistent with cardiac damage, increased clinical risk and myocardial infarction. Serial measurements may help assess extent of myocardial damage. NOTE: Children less than 1 year old may have higher baseline troponin levels and results should be interpreted in conjunction with the overall clinical context. NOTE: Troponin I testing is performed using a different testing methodology at [facility] than at [facility]. Direct result comparisons should only be made within the same method. Performed By: #### 8 9577-1 #### NAGY GONZALO ([id number]) [facility] ([facility]) [address] [place] [address] Urinalysis complete W Reflex Culture panel (U)on 02-25-2024 Appearance (U) Turbid Abnormal Clear [facility] Bilirubin (U) [Mass/Vol] Negative NEGATIVE [facility] Color (U) Light-[place] Abnormal Light-Yellow, Yellow, Dark-Yellow [facility] Glucose Auto test strip (U) [Mass/Vol] Normal Normal mg/dL [facility] Ketones (U) [Mass/Vol] Negative NEGATIVE mg/d L [facility] Leukocyte esterase Auto test strip Ql (U) 250 [place]/ L Abnormal NEGATIVE [facility] Nitrite Auto test strip Ql (U) Negative NEGATIVE [facility] pH (U) 6.0 [pH] 5.0, 5.5, 6.0, 6.5, 7.0, 7.5, 8.0 [facility] Protein (U) [Mass/Vol] 100 (2+) Abnormal NEGAT JAIMIE, 10 (TRACE), 20 (TRACE) mg/dL [facility] RBC (U) [#/Vol] OVER (3+) Abnormal NEGATIVE [facility] Specific gravity (U) [Rel density] 1.026 1.005 - 1.035 [facility] Urobilinogen (U) [Mass/Vol] Normal Normal mg/dL [facility] Appearance (U) Turbid Normal Clear [facility] Comment on above: Performed By: #### 5 8077-9 #### LILO SÁNCHEZ ([id number]) [facility] ([facility]) [address] [place] [address] Bilirubin (U) [Mass/Vol] Negative Normal NEGATIVE [facility] Comment on above: Performed By: #### 5 8077-9 #### LILO SÁNCHEZ ([id number]) [facility] ([facility]) [address] [place] [address] Color (U) Light[place] Normal Light-Yellow, Yellow, Dark-Yellow [facility] Comment on above: Performed By: #### 5 8077-9 #### LILO SÁNCHEZ ([id number]) [facility] ([facility]) [address] [place] [address] Glucose Auto test strip (U) [Mass/Vol] Normal Normal Normal [facility] Comment on above: Performed By: #### 5 8077-9 #### LILO SÁNCHEZ ([id number]) [facility] ([facility]) [address] [place] [address] Ketones (U) [Mass/Vol] Negative Normal [facility] above: Performed By: #### 5 8077-9 #### LILO SÁNCHEZ ([id number]) [facility] ([facility]) [address] [place] [address]474 Leukocyte esterase Auto test strip Ql (U) 250 [place]/???L Abnormal NEGATIVE [facility] Comment on above: Performed By: #### 5 8077-9 #### LILO SÁNCHEZ ([id number]) [facility] ([facility]) [address] [place] [address] Nitrite Auto test strip Ql (U) Negative Normal NEGATIVE [facility] Comment on above: Performed By: #### 5 8077-9 #### LILO SÁNCHEZ ([id number]) [facility] ([facility]) [address] [place] [address] 42393 pH (U) 6.0 [pH] Normal 5.0, 5.5, 6.0, 6.5, 7.0, 7.5, 8.0 [facility] Comment on above: Performed By: #### 5 8077-9 #### LILO SÁNCHEZ ([id number]) [facility] ([facility]) [address] [place] [address]2015 Protein (U) [Mass/Vol] 100 (2+) Abnormal NEGAT JAIMIE, 10 (TRACE), 20 (TRACE) [facility] Comment on above: Performed By: #### 5 8077-9 #### LILO SÁNCHEZ ([id number]) [facility] ([facility]) [address] [place] [address]1632 RBC (U) [#/Vol] OVER (3+) Abnormal NEGATIVE [facility] Comment on above: Performed By: #### 5 8077-9 #### LILO SÁNCHEZ ([id number]) [facility] ([facility]) [address] [place] [address] Specific gravity (U) [Rel density] 1.026 Normal 1.005-1.035 [facility] Comment on above: Performed By: #### 5 8077-9 #### LILO SÁNCHEZ ([id number]) [facility] ([facility]) [address] [place] [address] Urobilinogen (U) [Mass/Vol] Normal Normal Normal [facility] Comment on above: Performed By: #### 5 8077-9 #### LILO SÁNCHEZ ([id number]) [facility] ([facility]) [address] [place] [address] Urinalysis microscopic panel Auto Ql (U)on 02-25-2024 Bacteria Auto (Urine sed) [#/Area] 1+ Abnormal NONE SEEN /HPF [facility] Epithelial cells.renal Computer assisted (U) [#/Area] 1-2 (FEW) Reference range not established. /HPF [facility] Hyaline casts Auto (Urine sed) [#/Area] 2+ Abnormal NONE /LPF [facility] RBC Auto (Urine sed) [#/Area] >20 Abnormal NONE, 1-2, 3-5 /HPF [facility] WBC Auto (Urine sed) [#/Area] >50 Abnormal 1-5, NONE /HPF [facility] Bacteria Auto (Urine sed) [#/Area] 1+ /HPF Abnormal NONE SEEN [facility] Comment on above: Performed By: #### 5 3315-8 #### LILO SÁNCHEZ ([id number]) [facility] ([facility]) [address] [place] [address] Epithelial cells.renal Computer assisted (U) [#/Area] 1-2 (FEW) Normal Reference range not established. [facility] Comment on above: Performed By: #### 5 3315-8 #### LILO SÁNCHEZ ([id number]) [facility] ([facility]) [address] [place] [address] Hyaline casts Auto (Urine sed) [#/Area] 2+ /LPF Abnormal NONE [facility] Comment on above: Performed By: #### 5 3315-8 #### LILO SÁNCHEZ ([id number]) [facility] ([facility]) [address] [place] [address] 75796 RBC Auto (Urine sed) [#/Area] >20 Abnormal NONE, 1-2, 3-5 [facility] Comment on above: Performed By: #### 5 3315-8 #### LILO SÁNCHEZ ([id number]) [facility] ([facility]) [address] [place] [address] 43655 WBC Auto (Urine sed) [#/Area] >50 Abnormal 1-5, NONE [facility] Comment on above: Performed By: #### 5 3315-8 #### LILO SÁNCHEZ ([id number]) [facility] ([facility]) [address] [place] [address] 61836 BACTERIAL VAGINOSIS NAATon 0 02-09-2024 Lactobacillus crispatus+gasseri+jense martin + Gardnerella vaginalis + Atopobium vaginae rRNA NURYS+probe Ql (Vag fld) Negative Normal Negative for bacterial vaginosis [facility] Comment on above: Order Comment: Speci men Type: SWABOrdering Facility: [facility] Address: [address] [place] [address] Performed By: #### B VAMP, CVTV ####[facility] LABCLIA [id number] [place] [address] [place] GABRIELE/TRICHOMONAS NAATon 0 02-09-2024 C. glabrata RNA NURYS+probe Ql (Vag fld) Negative Normal Negative for Gabriele glabrata [facility] Comment on above: Order Comment: Speci men Type: SWABOrdering Facility: [facility] Address: [address] [place] [address] Performed By: #### B VAMP, CVTV ####[facility]CL[facility] [id number] [place] [address] [place] Gabriele sp DNA NURYS+probe Ql (Vag fld) Positive Abnormal Negative for Gabriele species [facility] Comment on above: Order Comment: Speci men Type: SWABOrdering Facility: [facility] Address: [address] [place] [address] Performed By: #### B VAMP, CVTV ####[facility] LABCLIA [id number] [address] [place] T. vaginalis DNA NURYS+probe Ql (Unsp spec) Negative Normal Negative for Trichomonas vaginalis by amplification [facility] Comment on above: Order Comment: Speci men Type: SWABOrdering Facility: [facility] Address: [address] [place] [address] Performed By: #### B VAMP, CVTV ####[facility] LABCLIA [id number] [address] [place] CNOVon 02-09-2024 CNOV Office Visit (GYNURM ) ROSITA KENNEDY ([id number]) 1945 F Date Time Provider Department 02/09/24 3:00 PM FRANKLIN SALMON During your visit today, we recorded the following information about you: Blood pressure 128/83 Franklin Salmon MD 02/09/2024 4:47 PM Signed Female Pelvic Medicine AND Reconstructive Surgery Post-Op Visit Rosita Kennedy is a 78 year old year old female who presents for a 4 Week post-op check s/p Procedure(s): Cystoscopy Injection of Botox into the Bladder Anesthesia: Monitored Anesthesia Care Findings: Globally erythematous with pectinea. Areas of white denuded patches. Mucosa smooth and flat in appearance. No foreign body seen; efflux seen bilaterally Estimated Blood Loss: Minimal IVF/UOP: see anesthesia report Antibiotics: 2g of cefazolin prior to skin incision Specimens: None VTE Prophylaxis: SCDs for mechanical prophylaxis Complications: None Implanted Devices: * No implants in log * Pre-Op/Pre-Procedure Diagnosis: Overactive bladder Post-Op/Post-Procedur e Diagnosis: same . Post-op complications: yes The botox did not work for her. Pt having vaginal dryness, and burning. Bleeding: no Pain: yes 5/10 in vagina If you had pain related to your prolapse before surgery, has your pain resolved? Not Applicable Abnormal vaginal discharge: no PFDI-20 Do you: Usually experience pressure in the lower abdomen? Yes, somewhat bothersome (2) Usually experience heaviness or dullness in the pelvic area? Yes, quite a bit bothersome (4) Usually have a bulge or something falling out that you can see or feel in your vaginal area? No (0) Ever have to push on the vagina or around the rectum to have or complete a bowel movement? No (0) Usually experience a feeling of incomplete bladder emptying? No (0) Ever have to push up on a bulge in the vaginal area with your fingers to start or complete urination? No (0) Feel you need to strain too hard to have a bowel movement? No (0) Feel you have not completely emptied your bowels at the end of a bowel movement? Yes, moderately bothersome (3) Usually lose stool beyond your control if your stool is well formed? Yes, moderately bothersome (3) Usually lose stool beyond your control if your stool is loose? Yes, moderately bothersome (3) Usually lose gas from the rectum beyond your control? No (0) Usually have pain when you pass your stool? No (0) Experience a strong sense of urgency and have to lujan to the bathroom to have a bowel movement? No (0) Does part of your bowel ever pass through the rectum and bulge outside during or after a bowel movement? No (0) Usually experience frequent urination? Yes, quite a bit bothersome (4) Usually experience urine leakage associated with a feeling of urgency, that is, a strong sensation of needing to go to the bathroom? Yes, quite a bit bothersome (4) Usually experience urine leakage related to coughing, sneezing or laughing? Yes, quite a bit bothersome (4) Usually experience small amounts of urine leakage (that is, drops)? Yes, not at all bothersome (1) Usually experience difficulty emptying your bladder? No (0) Usually experience pain or discomfort in the lower abdomen or genital region? Yes, somewhat bothersome (2) Overall, how satisfied were you with your postoperative pain medication? Neither satisfied nor dissatisfied With regard to your expectations before surgery, did you have the amount of pain you expected, more pain, or less pain? Less pain than I expected Was the preoperative teaching you had about pain expectations helpful? Not sure Were the discharge instructions you received about pain medications helpful? Not sure Stitchdowns Toe Former offered, exam chaperoned by Veronica Payton MD OBJECTIVE: BP 128/83 General Appearance: Appears stated age, comfortable, No acute distress Abdomen: Benign, non-tender, no hernia, masses. New abdominal distension Pelvic examination: Vulva/Perineum: erythematous patches around vulva bilaterally and into perineum. Reports where she is sore Urethral Meatus:Normal location and size, no lesions Urethra: No masses, tenderness or scarring Bladder:No masses, no tenderness Vagina: atrophic Cervix: surgically absent Uterus: surgical absent Adnexa:No masses, tenderness or nodularity ASSESMENT: Rosita Kennedy is a 78 year old year old female who is post-op; stable post-operative course uncomplicated PLAN: Radiation cystitis S/p trial of mirabegron and gemtesa, unable to use AC's given glaucoma S/p botox 100 units in OR, didn't help at all Briefly discussed SNM vs PTNS, but believe there might be other therapies better directed towards radiation cystitis and may refer to urology Vulvitis Vaginal swab ordered If swab positive for yeast, treat w/ diflucan If negative will recommend course of clobetasol cream (more content not included)... Normal [facility] Stephie 01-17-2024 CNPN Telephone (GYURWP) BRENTROSITA J ([id number]) 1945 F Date Time Provider Department 01/17/24 LUIS ANTONIO FRANKLIN PREMA During your visit today, we recorded the following information about you: Marlyn Beltran 01/17/2024 9:42 AM Addendum Patient called in stating she is feeling very dry, and like she may have an infection. She is also experiencing pain/burning with urination. She said a message was also sent via [employer] because she isn't feeling too good. Dtr in law would like to be called [phone] Lisseth Mccullough RN 01/17/2024 1:47 PM Signed See my chart Urine culture ordered MONTSE Joel Lisa 01/17/2024 3:46 PM Signed Pt's RUBIO called back and stated that the burning is on the outside and she wants to know if a culture would show something on the outside. She can be reached at [phone]. Deborah Aguilar RN 01/17/2024 4:51 PM Addendum Called pt's Winter BERGERON; verified pt's name/. Winter reports pt has external vaginal pain with urination (contact between urine and vaginal/vulvar tissue causes burning). Winter unsure if pt has other symptoms. RN attempted to call Rosita, but calls went straight to . Called Winter back and advised her we would send a [employer] message for her to d/w Rosita and respond to later, as office is closing. Winter verbalized understanding and had no further questions. Deborah Aguilar RN January 17, 2024 4:42 PM Wanda Varela 01/21/2024 8:22 AM Signed Tried calling Winter BERGERON but the call wouldn't go through. Sent pt a message asking her about 01/25 w/Elsie. Wanda Varela 01/25/2024 11:23 AM Signed Spoke with Winter BERGERON and she stated that she doesn't think pt is going to be able to swing an earlier appt prior to her leaving on Wednesday. She just wants to keep her appt in January. Allergies As of Date: 01/17/2024 Noted Allergy Reaction CODEINE 02/24/2001 Comments: hives CONTRAST DYE (IODINE) 03/24/2023 6 - Diarrhea Comments: Diarrhea after oral contrast. ERYTHROMYCIN 08/03/2014 8 - GI Upset METHYLPREDNISOLONE 08/03/2014 4 - Hives Comments: IV SULFA (SULFONAMIDE ANTIBIOTICS) 02/24/2001 Comments: hives Date Reviewed: 01/11/2024 Reviewed by: Lili Pereira RN - Fully Assessed Prescriptions as of 01/25/2024 - XARELTO 20 mg tablet Take 1 tablet by mouth once daily. - solifenacin (VESICARE) 5 mg tablet Take 1 tablet by mouth once daily. - lenvatinib (LENVIMA) 20 mg/day (10 mg x 2) capsules Take 2 capsules (20 mg) by mouth once daily. - ondansetron (ZOFRAN) 8 mg tablet Take 1 tablet by mouth every 6 hours as needed for nausea/vomiting. - levothyroxine (LEVOXYL) 25 mcg tablet Take 1 tablet by mouth once daily. Take on empty stomach. For Thyroid - mirtazapine (REMERON) 15 mg tablet Take 1 tablet by mouth daily at bedtime. - meloxicam (MOBIC) 15 mg tablet Take 1 tablet by mouth once daily. With food. - atorvastatin (LIPITOR) 40 mg tablet Take 1 tablet by mouth daily at bedtime. For cholesterol. - Methenamine Hippurate (HIPREX) 1 gram tablet Take 1 tablet by mouth twice daily with meals. - furosemide (LASIX) 20 mg tablet Take one tablet every day but if looses more than 10 pounds in a week then she needs to hold it. - sertraline (ZOLOFT) 25 mg tablet Take 1 tablet by mouth once daily. - sertraline (ZOLOFT) 100 mg tablet Take 1 tablet by mouth once daily. To take along with 25 mgs to make a total of 125 mgs - travoprost (TRAVATAN Z) 0.004 % ophthalmic drops Use 1 Drop in both eyes daily at bedtime. - brimonidine-timolol (COMBIGAN) 0.2-0.5 % ophthalmic solution Use 1 Drop in the right eye twice daily. Use at 9 AM and 3 PM - ondansetron orally disintegrating (ZOFRAN ODT) 4 mg disintegrating tablet Take 1 tablet by mouth every 6 hours as needed for nausea/vomiting. - calcium carb/vitamin D3/vit K1 (VIACTIV ORAL) Take 1 tablet by mouth once daily. - MULTIVITAMIN TABLET PO Take one(1) tablet daily. 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 Normal [facility] ANES POSTPROC EVALon 024 ANES POSTPROC EVAL HNO ID: [id number] Author: FLORENTIN BARKER MD Service: Anesthesiology Author Type: Anesthesiologist Type: Anesthesia Postprocedure Evaluation Filed: 01/12/2024 13:50 Note Text: POST ANESTHESIA EVALUATION NOTE : 1945 Procedure Summary Date: 01/11/24 Room / Location: ORA / [facility] OR Anesthesia Start: 1147 Anesthesia Stop: 1240 Procedure: CYSTOURETHROSCOPY W/INJECTION(S) FOR CHEMODENERVATION OF THE BLADDER (Bladder) Diagnosis: Radiation cystitis OAB (overactive bladder) (Radiation cystitis [N30.40]) (OAB (overactive bladder) [N32.81]) Surgeons: Franklin Salmon MD Responsible Provider: Florentin Barker MD Anesthesia Type: MAC ASA Status: 4 Anesthesia Type: MAC Last Vitals Vitals Value Taken Time BP 147/69 01/11/24 1330 Temp 36.7 ?C (98.1 ?F) 01/11/24 1315 Pulse 83 01/11/24 1315 Resp 18 01/11/24 1245 SpO2 96 % 01/11/24 1330 Vitals shown include unfiled device data. [facility] AN POST OP NOTE Anesthesia Observations No Documentation SIGNATURE: Florentin Barker MD PATIENT NAME: Rosita Kennedy DATE: January 12, 2024 TIME: 1:50 PM CSN: [id number] [facility] ANES PRE-OPon 01-11-2024 ANES PRE-OP HNO ID: [id number] Author: FLORENTIN BARKER MD Service: Anesthesiology Author Type: Anesthesiologist Type: Anesthesia Preprocedure Evaluation Filed: 01/11/2024 11:29 Note Text: ANESTHESIOLOGY DAY OF SURGERY NOTE : 1945 Procedure Information Date/Time: 01/11/24 1145 Procedures: BIOPSY BLADDER (Bladder) CYSTOURETHROSCOPY W/INJECTION(S) FOR CHEMODENERVATION OF THE BLADDER (Bladder) Location: [facility] OR24A / [facility] OR Surgeons: Franklin Salmon MD Estimated body mass index is 20.62 kg/m? as calculated from the following: Height as of 12/27/23: 152.4 cm (5'). Weight as of this encounter: 47.9 kg (105 lb 9.6 oz). Most recent hematocrit and potassium results: Hematocrit 39.0 09/27/2023 Potassium 4.3 09/27/2023 Relevant Problems CARDIO (+) Bilateral carotid artery stenosis (+) CRVO (central retinal vein occlusion) (+) Central retinal vein occlusion with macular edema of right eye (+) Intracranial aneurysm (+) Stable central retinal vein occlusion of right eye ENDO (+) Acquired hypothyroidism NEURO-PSYCH (+) H/O central retinal vein occlusion (+) History of DVT (deep vein thrombosis) (+) History of pulmonary embolism (+) History of uterine cancer I - PHYSICAL EVALUATION AIRWAY Patient intubated: No. Tracheostomy tube not present Mallampati: III. TM distance: <3 FB. Neck ROM: limited flexion and extension. Mouth opening: non-adequate. Short neck: yes. Thick neck: no Pacheco present: no Lip Bite Test: I Microretrognathia/Crystal ronagthia/Recessed Chin: No DENTAL Dental findings: teeth intact. Additional exam findings: no II - ANESTHESIA PLAN ASA Score: 4 Anesthetic Plan: MAC The patient is not a current smoker. NPO Status: adequate Beta Brad Administration of chronic beta brad medication planned. Monitoring Plan Monitoring plan: standard ASA. Post Procedure Analgesic Plan Postoperative analgesic plan: multimodal analgesia. Informed Consent Anesthetic risks, benefits, alternatives, personnel and consent discussed: yes. Patient / Responsible Alliance Party agrees to proceed: yes Patient / Surrogate agrees to blood products: blood products not planned DNR status not reviewed with patient and/or family prior to surgery. Significant changes in the patient condition since the History and Physical, not otherwise documented in primary service progress note: no. Vitals Value Taken Time BP 140/72 01/11/24 1111 Pulse Resp 15 01/11/24 1111 Temp 37 ?C (98.6 ?F) 01/11/24 1111 SpO2 96 % 01/11/24 1111 Facility-Administered Medications as of 01/11/2024 Medication Dose Route Frequency - acetaminophen 1,000 mg tab(s) (TYLENOL) 1,000 mg ORAL ONCE - lidocaine 10 mg/mL (1 %) 1-2 mg injection (XYLOCAINE) 0.1-0.2 mL INTRADERMAL PRN - lactated ringers iv infusion 5-30 mL/hr INTRAVENOUS CONTINUOUS - NaCl 0.9% iv flush bag 20 mL INTRAVENOUS PRN - ceFAZolin iv piggyback 2 g in D5W (iso-osmotic) 100 mL (ANCEF) 2 g INTRAVENOUS Window Shade Cutter to OR - onabotulinum toxin type A 100 Units injection (BOTOX) 100 Units OTHER ONCE Outpatient Medications as of 01/11/2024 Medication Sig - levothyroxine (LEVOXYL) 25 mcg tablet Take 1 tablet by mouth once daily. Take on empty stomach. For Thyroid - mirtazapine (REMERON) 15 mg tablet Take 1 tablet by mouth daily at bedtime. - meloxicam (MOBIC) 15 mg tablet Take 1 tablet by mouth once daily. With food. - atorvastatin (LIPITOR) 40 mg tablet Take 1 tablet by mouth daily at bedtime. For cholesterol. - Methenamine Hippurate (HIPREX) 1 gram tablet Take 1 tablet by mouth twice daily with meals. - sertraline (ZOLOFT) 25 mg tablet Take 1 tablet by mouth once daily. - sertraline (ZOLOFT) 100 mg tablet Take 1 tablet by mouth once daily. To take along with 25 mgs to make a total of 125 mgs - brimonidine-timolol (COMBIGAN) 0.2-0.5 % ophthalmic solution Use 1 Drop in the right eye twice daily. Use at 9 AM and 3 PM - calcium carb/vitamin D3/vit K1 (VIACTIV ORAL) Take 1 tablet by mouth once daily. - MULTIVITAMIN TABLET PO Take one(1) tablet daily. - XARELTO 20 mg tablet Take 1 tablet by mouth once daily. - solifenacin (VESICARE) 5 mg tablet Take 1 tablet by mouth once daily. (Patient not taking: Reported on 12/27/2023) - lenvatinib (LENVIMA) 20 mg/day (10 mg x 2) capsules Take 2 capsules (20 mg) by mouth once daily. (Patient not taking: Reported on 12/27/2023) - ondansetron (ZOFRAN) 8 mg tablet Take 1 tablet by mouth every 6 hours as needed for nausea/vomiting. (Patient not taking: Reported on 12/27/2023) - furosemide (LASIX) 20 mg tablet Take one tablet every day but if looses more than 10 pounds in a week then she needs to hold it. (Patient not taking: Reported on 12/27/2023) - travoprost (TRAVATAN Z) 0.004 % ophthalmic drops Use 1 Drop in both eyes daily at bedtime. (Patient not taking: Reported on 12/27/2023) - ondansetron orally disintegrating (ZOFRAN ODT) 4 mg disintegrating tablet Take 1 tablet by mouth every (more content not included)... [facility] BRIEF OP NOTon 01-11-2024 BRIEF OP NOT HNO ID: [id number] Author: NICOLE TALAVERA MD Service: Urogynecology Author Type: Fellow Type: Brief Op Note Filed: 01/11/2024 12:31 Note Text: BRIEF OPERATIVE / PROCEDURE NOTE LOG ID: [id number] Surgery/Procedure Date: 01/11/2024 Incision/Procedure Start Time: 12:06 PM Incision Close/Procedure End Time: 12:11 PM Surgeon(s)/Procedural ist(s) and Organ Pipe Finisher(s): Surgeon(s) and Role: * Franklin Salmon MD - Primary * Nicole Talavera MD - Fellow No Additional Staff Procedure(s): Cystoscopy Injection of Botox into the Bladder Anesthesia: Monitored Anesthesia Care Findings: -Normal 360 degree cysto. Globally erythematous with pectinea. Areas of white denuded patches. Mucosa smooth and flat in appearance. No foreign body seen; efflux seen bilaterally Estimated Blood Loss: Minimal IVF/UOP: see anesthesia report Antibiotics: 2g of cefazolin prior to skin incision Specimens: None VTE Prophylaxis: SCDs for mechanical prophylaxis Complications: None Implanted Devices: * No implants in log * Pre-Op/Pre-Procedure Diagnosis: Overactive bladder Post-Op/Post-Procedur e Diagnosis: same SIGNATURE: Nicole Talavera MD DATE: January 11, 2024 PATIENT NAME: Rosita Kennedy TIME: 12:29 PM PAGER/CONTACT #: Pager [phone] [facility] OPERATIVE NOon 01-11-2024 OPERATIVE NO HNO ID: [id number] Author: FRANKLIN SALMON MD Service: Urogynecology Author Type: Physician Type: Operative Report Filed: 01/11/2024 14:12 Note Text: OPERATIVE/PROCEDURE REPORT LOG ID: [id number]/Proced ure Date: 01/11/2024 Incision/Procedure Start Time: 12:06 PM Incision Close/Procedure End Time: 12:11 PM Surgeon(s)/Procedural ist(s) and Organ Pipe Finisher(s): Surgeon(s) and Role: * Franklin Salmon MD - Primary * Nicole Talavera MD - Fellow No Additional Staff Procedure(s): Cystoscopy Injection of Botox into the Bladder Anesthesia: Monitored Anesthesia Care Findings: Globally erythematous with pectinea. Areas of white denuded patches. Mucosa smooth and flat in appearance. No foreign body seen; efflux seen bilaterally Estimated Blood Loss: Minimal IVF/UOP: see anesthesia report Antibiotics: 2g of cefazolin prior to skin incision Specimens: None VTE Prophylaxis: SCDs for mechanical prophylaxis Complications: None Implanted Devices: * No implants in log * Pre-Op/Pre-Procedure Diagnosis: Overactive bladder Post-Op/Post-Procedur e Diagnosis: same Drains: None Indications: The patient is a 78 year old presented for consultation for symptomatic radiation cystitis. She desired surgical management with bladder botox. She was counseled about all the risks, benefits, alternatives, complications, indications, and personnel of the procedures performed which she accepted. An informed consent was signed. Procedure Details: The patient was taken to the operating room where a surgical time-out and safety checklist were performed. The patient was then given prophylactic antibiotics and sequential compression devices were applied bilaterally. She underwent MAC without any difficulty. She was positioned in the dorsal lithotomy position using yellowfin stirrups, making sure that her lower extremities were not overly extended or flexed. She was prepped and draped in the normal sterile fashion. A final time out was performed. The 30 degree cystoscope was passed atraumatically through the urethra into the bladder. The bladder was distended with the above noted findings. 100 units of botox in 10 cc were injected throughout the posterior bladder wall, bladder drome and trigone. A 1cc flush was used to ensure all Botox was used. There was no major bleeding noted. The bladder was drained and the cystoscope was removed. A vaginal sweep was performed by Dr. Talavera, and was negative. All sponge, instrument, needle count were correct x 2. The patient was extubated without complications and taken to the PACU in stable condition. The primary surgeon, Dr. Salmon, performed the procedure with assistance and was present and scrubbed for the entire procedure. SIGNATURE: Nicole Talavera MD PATIENT NAME: Rosita Kennedy DATE: January 11, 2024 TIME: 2:02 PM PAGER/CONTACT #: [phone] UROGYN STAFF NOTE I agree with this op note. I performed the procedure with assistance and was present and scrubbed for the entire procedure. Franklin Salmon MD [facility] CNCOon 12-31-2023 CNCO Letter Text [facility] Stephie 12-28-2023 ARTI Telephone (JOSE ANTONIOPERNELLO) ROISTA KENNEDY ([id number]) 1945 F Date Time Provider Department 12/28/23 KELLEY STONE During your visit today, we recorded the following information about you: Kelley Stone APRN.ART PREPARATOR 12/28/2023 3:[address] Salmon, I saw Ms. Kennedy December 27, 2023 in [facility] for pre-testing as she is scheduled for a bladder biopsy and cystoscopy with chemodenervation on January 10. Patient is currently on Xarelto for H/O PE and chronic RLE DVT. I see your office sent a letter over to the prescriber, Dr. Terry Espino, to confirm the OK to hold pre-op but I do not see a response scanned back into [employer]. Just wanted to check in to see if you have received anything further and if I can be of any assistance in obtaining anticoagulation instructions. Thank you, Kelley Stone APRN.Monika Lemus RN 12/30/2023 9:46 AM Addendum I called Dr Terry Espino's office regarding fax that was sent on 12/16/23 for Xarelto pre-op instructions but he is a hospitalist at [facility] and not a primary care provider. I called patient and son answered phone and per son Dr Dawood Espino is not the pcp but Dr Guillermo Min is patient's primary but son is unsure if the Xarelto is prescribed by Dr Min. I called Dr Min's office [phone] and left a detailed message on the medical records administrator's voicemail to return my call regarding if Dr Min is the prescribing physician of patient's Xarelto. Awaiting call back. MONTSE Sampson Judy A, RN 12/30/2023 2:47 PM Signed I received a call back from [facility] medical records administrator from Dr Min's office and she informed me she spoke to Dr Min regarding holding Xarelto. Per Dr Min he is ok with holding Xarelto as long as it is resumed immediately following surgery the next day. Questioned if ok to hold Xarelto 3 days and per Hod[facility] yes per Dr Min. I explained that we will need to fax a letter for Dr Min to sign and she provided office fax number: [phone]. MONTSE Sampson Judy A, RN 12/31/2023 3:37 PM Addendum Letter faxed to Dr Dr Min by Kelley Stone CNP. Called and left a detailed message on Hodan's voicemail with my return call back number regarding confirmation that office received fax. MONTSE Sampson Judy A, RN 01/04/2024 9:27 AM Signed Letter scanned in from Dr Min on 01/03/24 ok to hold Xarelto 3 days. Called and left a message on son Rivera's voicemail to return my call and a detailed message was also left on identified voicemail that patient is to hold Xarelto starting on 01/08/24 for surgery on 01/11/24. Message left for son to return my call to confirm he received my message. MONTSE Sampson Judy A, RN 01/04/2024 2:15 PM Signed [employer] message sent to patient/son with Xarelto instructions. MONTSE Sampson Judy A, RN 01/07/2024 9:11 AM Signed Called and spoke to son Min to inform him that patient needs to start holding her Xarelto tomorrow in preparation for surgery on 01/11/24. Mni will see mom today and notify her last dose of Xarelto is today. Monika Dunn RN Allergies As of Date: 12/28/2023 Noted Allergy Reaction CODEINE 02/24/2001 Comments: hives CONTRAST DYE (IODINE) 03/24/2023 6 - Diarrhea Comments: Diarrhea after oral contrast. ERYTHROMYCIN 08/03/2014 8 - GI Upset METHYLPREDNISOLONE 08/03/2014 4 - Hives Comments: IV SULFA (SULFONAMIDE ANTIBIOTICS) 02/24/2001 Comments: hives Date Reviewed: 12/27/2023 Reviewed by: Kelley Stone APRN.ART PREPARATOR - Fully Assessed Reason for Visit: Xarelto Instructions [Other] Prescriptions as of 01/07/2024 - XARELTO 20 mg tablet Take 1 tablet by mouth once daily. - solifenacin (VESICARE) 5 mg tablet Take 1 tablet by mouth once daily. - lenvatinib (LENVIMA) 20 mg/day (10 mg x 2) capsules Take 2 capsules (20 mg) by mouth once daily. - ondansetron (ZOFRAN) 8 mg tablet Take 1 tablet by mouth every 6 hours as needed for nausea/vomiting. - levothyroxine (LEVOXYL) 25 mcg tablet Take 1 tablet by mouth once daily. Take on empty stomach. For Thyroid - mirtazapine (REMERON) 15 mg tablet Take 1 tablet by mouth daily at bedtime. - meloxicam (MOBIC) 15 mg tablet Take 1 tablet by mouth once daily. With food. - atorvastatin (LIPITOR) 40 mg tablet Take 1 tablet by mouth daily at bedtime. For cholesterol. - Methenamine Hippurate (HIPREX) 1 gram tablet Take 1 tablet by mouth twice daily with meals. - furosemide (LASIX) 20 mg tablet Take one tablet every day but if looses more than 10 pounds in a week then she needs to hold it. - sertraline (ZOLOFT) 25 mg tablet Take 1 tablet by mouth once daily. - sertraline (ZOLOFT) 100 mg tablet Take 1 tablet by mouth once daily. To take along with 25 mgs to make a total of 125 mgs - travoprost (TRAVATAN Z) 0.004 % ophthalmic drops Use 1 Drop in both eyes daily at bedtime. - brimonidine- (more content not included)... [facility] HISTORY PHYSICALon HISTORY PHYSICAL HNO ID: [id number] Author: KELLEY STONE APRN.ART PREPARATOR Service: ? Author Type: Nurse Practitioner Type: H&P Filed: 01/04/2024 07:52 Note Text: HISTORY AND PHYSICAL EXAMINATION SERVICE DATE: 12/27/2023 SERVICE TIME: 2:38 PM PRIMARY CARE PHYSICIAN: Bernardino Min MD Assessment Patient has the following medical conditions which may affect yfn-operative course: MULTIPLE SCLEROSIS Assessment: Currently in remission, following with PCP. Patient denies any symptoms, no current Rx. History of uterine cancer Assessment: Dx in 2013, s/p hysterectomy with BSO, pelvic lymphadenectomy. Recurrence in 2016 in lymph node of left neck and bilateral pelvis; + adenocarcinoma. Chemotherapy and radiation at this time. Radiation again in 2021 to aortocaval lymphnodes. Chemo again in 2022 until May (discontinued due to side effects). Following with palliative care. History of pulmonary embolism Assessment: H/O PE in 2018 s/p IVC filter. Going through chemotherapy at the time. Currently on Xarelto, following with palliative care/PCP, Dr. Terry Espino. History of DVT (deep vein thrombosis) Assessment: H/O extensive RLE DVT during hospitalization. S/p thrombectomy with balloon angioplasty. Taking Xarelto, following with PCP/palliative care Dr. Terry Espino. Dr. Salmon's office sent letter to prescriber regarding perioperative instructions; will touch base with their office as no response scanned into [employer] at time of [facility] appointment. Radiation cystitis Assessment: Urinary incontinence x 6 months. Patient has no feeling that she is going/needs to go. CT with moderate circumferential thickening of the wall suggestive of radiation cystitis. Symptoms refractory to medication. Scheduled for surgical intervention. Anxiety Assessment: Currently stable on Rx. Pleasant and appropriate during today's visit. Mixed hyperlipidemia Assessment: Compliant with Rx, following with PCP. Bilateral carotid artery stenosis Assessment: Bilateral carotid stenosis on 2021 ultrasound; 20-39%. No CVA history. Acquired hypothyroidism Assessment: Compliant with Rx. TSH Date Value Ref Range Status 07/09/2023 5.640 (H) 0.270 - 4.200 mIU/L Final Anemia Assessment: No current supplementation. Latest Reference Range AND Units 09/27/23 14:42 Hemoglobin 11.5 - 15.5 g/dL 11.4 (L) Hematocrit 36.0 - 46.0 % 39.0 Reynoso Activity Status Index: METS: Walk a block or two on level ground (2.75 METs) Cannot do moderate work around the house, such as vacuuming, sweeping floors, or carrying in groceries Cannot climb a flight of stairs or walk up a hill DASI Score: 2.75 Patient denies any chest pain or undue shortness of breath with the above physical activity. Patient is partially dependent. Clinical Frailty Scale: 4. Apparently vulnerable STOP-Bang Score: Patient over 50 years old Denies snoring loudly Denies feeling tired, fatigued, or sleepy during the daytime Has not been observed to stop breathing or choking/gasping during sleep Denies having high blood pressure BMI less than or equal to 35 kg/m2 Does not have a large neck Non-male patient STOP-Bang Score: 1 [id number] Score: Age: >=75 Sex: female CHF history: No Hypertension history: No Stroke/TIA/thromboemb olism history: Yes Vascular disease history: No Diabetes history: No [id number] Score: 5 ANESTHESIA FINDINGS: Intubation History: No history of difficult intubation. No abnormal airway history Significant Anesthesia Considerations: R chest mediport none Airway History: No history of difficult airway No abnormal airway history I - PHYSICAL EVALUATION AIRWAY Patient intubated: No. Tracheostomy tube not present Mallampati: II. TM distance: >3 FB. Neck ROM: limited extension. Mouth opening: adequate. Short neck: yes. Thick neck: no Pacheco present: no Lip Bite Test: III Microretrognathia/Crystal ronagthia/Recessed Chin: No DENTAL Dental findings: missing tooth/teeth. Additional comments: Crowns. II - ANESTHESIA PLAN Beta Brad Monitoring Plan Post Procedure Analgesic Plan Prepared for Surgery: optimally prepared for surgery, pending [see comment]. Xarelto instructions Addendum January 04, 2024 7:51 AM Letter re-faxed to Dr. Min who is currently prescribing Xarelto. Response scanned into [facility] January 03, 2024 and patient is OK to hold 3 days prior to procedure. CONSULTS: Patient does not require consults for optimization at this time Planned Anesthetic: anesthesia choice The Following Tests/Procedures Have Been Initiated: Orders Placed This Encounter XARELTO 20 mg tablet Sig: Take 1 tablet by mouth once daily. REASON FOR VISIT: Rosita Kennedy is a 78 year old female who is scheduled for BIOPSY BLADDER, CYSTOURETHROSCOPY W/INJECTION(S) FOR CHEMODENERVATION OF THE BLADDER at the request of Dr. Franklin Salmon for consultation. My final recommendation will be communicated back (more content not included)... [facility] CNPNon 12-24-2023 CNPN Telephone (GYURWP) BRENTROSITA Mela ([id number]) 1945 F Date Time Provider Department 12/24/23 FRANKLIN SALMON During your visit today, we recorded the following information about you: Marlyn Beltran 12/24/2023 8:58 AM Signed Patient daughter in law Veronica called in because they were under the impression the patient was having Botox on January [address] Salmon, and that currently states Bladder Biopsy. The patient does not want a biopsy. The family is very concerned and confused. Veronica can be reached at [phone] Deborah Aguilar, MONTSE 12/24/2023 10:43 AM Signed Separate encounter initiated by Shanae Ford at 0849: Reason for call: other - Provider name: Dr Salmon Additional comments: pt daughter in law called, they received a message pt will have bladder bx but the last office visit with Dr. Salmon they was told she would not, so they feel she should not have bladder bx. Please advise Recommendation: routed to nurse triage pool Last visit in this department: Visit date not found Last distance health visit in this department: Visit date not found Next visit in this department: Visit date not found Will manage pt concerns in this encounter. Deborah Aguilar, MONTSE 12/24/2023 10:43 AM Signed Called Winter; verified pt's name/. Confirmed that order is for Botox, and that per Dr. Salmon's notes from [facility], no biopsies are planned. Winter verbalized understanding and had no further questions. Surgery 01/11/24 Panel 1 Surgeon Role Service Franklin Salmon MD Primary Urology Procedure: BIOPSY BLADDER Laterality Anesthesia Op Region N/A Monitored Anesthesia Care Bladder Procedure: CYSTOURETHROSCOPY W/INJECTION(S) FOR CHEMODENERVATION OF THE BLADDER Laterality Anesthesia Op Region N/A Monitored Anesthesia Care Bladder LVV - Dr. Salmon 12/16/23 Impression: Rosita Kennedy is a 78 year old female with radiation cystitis. Plan: Plan for Cystoscopy with botox under sedation in December NO biopsies - will defer at this time Plan to hold xarelto 2-3 days prior - letter sent to Dr. Espino for recommendation (she was seeing different PCP but prefers to switch to [facility] at this time) All questions answered Deborah Aguilar RN December 24, 2023 10:40 AM Allergies As of Date: 12/24/2023 Noted Allergy Reaction CODEINE 02/24/2001 Comments: hives CONTRAST DYE (IODINE) 03/24/2023 6 - Diarrhea Comments: Diarrhea after oral contrast. ERYTHROMYCIN 08/03/2014 8 - GI Upset METHYLPREDNISOLONE 08/03/2014 4 - Hives Comments: IV SULFA (SULFONAMIDE ANTIBIOTICS) 02/24/2001 Comments: hives Date Reviewed: 12/17/2023 Reviewed by: Estela Zhang - Fully Assessed Prescriptions as of 01/06/2024 - XARELTO 20 mg tablet Take 1 tablet by mouth once daily. - solifenacin (VESICARE) 5 mg tablet Take 1 tablet by mouth once daily. - lenvatinib (LENVIMA) 20 mg/day (10 mg x 2) capsules Take 2 capsules (20 mg) by mouth once daily. - ondansetron (ZOFRAN) 8 mg tablet Take 1 tablet by mouth every 6 hours as needed for nausea/vomiting. - levothyroxine (LEVOXYL) 25 mcg tablet Take 1 tablet by mouth once daily. Take on empty stomach. For Thyroid - mirtazapine (REMERON) 15 mg tablet Take 1 tablet by mouth daily at bedtime. - meloxicam (MOBIC) 15 mg tablet Take 1 tablet by mouth once daily. With food. - atorvastatin (LIPITOR) 40 mg tablet Take 1 tablet by mouth daily at bedtime. For cholesterol. - Methenamine Hippurate (HIPREX) 1 gram tablet Take 1 tablet by mouth twice daily with meals. - furosemide (LASIX) 20 mg tablet Take one tablet every day but if looses more than 10 pounds in a week then she needs to hold it. - sertraline (ZOLOFT) 25 mg tablet Take 1 tablet by mouth once daily. - sertraline (ZOLOFT) 100 mg tablet Take 1 tablet by mouth once daily. To take along with 25 mgs to make a total of 125 mgs - travoprost (TRAVATAN Z) 0.004 % ophthalmic drops Use 1 Drop in both eyes daily at bedtime. - brimonidine-timolol (COMBIGAN) 0.2-0.5 % ophthalmic solution Use 1 Drop in the right eye twice daily. Use at 9 AM and 3 PM - ondansetron orally disintegrating (ZOFRAN ODT) 4 mg disintegrating tablet Take 1 tablet by mouth every 6 hours as needed for nausea/vomiting. - calcium carb/vitamin D3/vit K1 (VIACTIV ORAL) Take 1 tablet by mouth once daily. - MULTIVITAMIN TABLET PO Take one(1) tablet daily. Facility-Administered Medications as of 01/06/2024 - onabotulinum toxin type A 100 Units injection (BOTOX) - perflutren lipid microspheres 1.3 mL in NaCl (PF) 0.9% 10 mL injection (DEFINITY) - sodium chloride 0.9 % (flush) 10 mL (BD POSIFLUSH) Problem List As Of Date 12/24/2023 Noted Resolved MULTIPLE SCLEROSIS [G35] AMNESTIC SYNDROME [F04] 07/20/2003 Atrophic vaginiti (more content not included)... [facility] ([id number]) 1945 F Date Time Provider Department 12/24/23 FRANKLIN SALMON During your visit today, we recorded the following information about you: Shanae Cobian 12/24/2023 8:51 AM Signed Reason for call: other - Provider name: Dr Salmon Additional comments: pt daughter in law called, they received a message pt will have bladder bx but the last office visit with Dr. Salmon they was told she would not, so they feel she should not have bladder bx. Please advise Recommendation: routed to nurse triage pool Last visit in this department: Visit date not found Last distance health visit in this department: Visit date not found Next visit in this department: Visit date not found Deborah Aguilar RN 12/24/2023 10:35 AM Signed Pt concerns being addressed in separate encounter. Deobrah Aguilar RN December 24, 2023 10:34 AM Allergies As of Date: 12/24/2023 Noted Allergy Reaction CODEINE 02/24/2001 Comments: hives CONTRAST DYE (IODINE) 03/24/2023 6 - Diarrhea Comments: Diarrhea after oral contrast. ERYTHROMYCIN 08/03/2014 8 - GI Upset METHYLPREDNISOLONE 08/03/2014 4 - Hives Comments: IV SULFA (SULFONAMIDE ANTIBIOTICS) 02/24/2001 Comments: hives Date Reviewed: 12/17/2023 Reviewed by: Estela Zhang - Fully Assessed Reason for Visit: Question [1327] Prescriptions as of 12/24/2023 - solifenacin (VESICARE) 5 mg tablet Take 1 tablet by mouth once daily. - potassium chloride (K-TAB) 10 mEq tablet Take 10 mEq by mouth two times a day. - lenvatinib (LENVIMA) 20 mg/day (10 mg x 2) capsules Take 2 capsules (20 mg) by mouth once daily. - rivaroxaban (XARELTO) 15 mg tablet Take 20 mg by mouth once daily. - ondansetron (ZOFRAN) 8 mg tablet Take 1 tablet by mouth every 6 hours as needed for nausea/vomiting. - levothyroxine (LEVOXYL) 25 mcg tablet Take 1 tablet by mouth once daily. Take on empty stomach. For Thyroid - mirtazapine (REMERON) 15 mg tablet Take 1 tablet by mouth daily at bedtime. - meloxicam (MOBIC) 15 mg tablet Take 1 tablet by mouth once daily. With food. - atorvastatin (LIPITOR) 40 mg tablet Take 1 tablet by mouth daily at bedtime. For cholesterol. - Methenamine Hippurate (HIPREX) 1 gram tablet Take 1 tablet by mouth twice daily with meals. - furosemide (LASIX) 20 mg tablet Take one tablet every day but if looses more than 10 pounds in a week then she needs to hold it. - buPROPion (WELLBUTRIN) 75 mg tablet Take it once a day in the morning. - sertraline (ZOLOFT) 25 mg tablet Take 1 tablet by mouth once daily. - sertraline (ZOLOFT) 100 mg tablet Take 1 tablet by mouth once daily. To take along with 25 mgs to make a total of 125 mgs - travoprost (TRAVATAN Z) 0.004 % ophthalmic drops Use 1 Drop in both eyes daily at bedtime. - brimonidine-timolol (COMBIGAN) 0.2-0.5 % ophthalmic solution Use 1 Drop in the right eye twice daily. Use at 9 AM and 3 PM - ondansetron orally disintegrating (ZOFRAN ODT) 4 mg disintegrating tablet Take 1 tablet by mouth every 6 hours as needed for nausea/vomiting. - aspirin, enteric coated (ECOTRIN LOW STRENGTH) 81 mg EC tablet Take 1 tablet by mouth once daily. - calcium carb/vitamin D3/vit K1 (VIACTIV ORAL) Take 1 tablet by mouth once daily. - L GASSERI/B BIFIDUM/B LONGUM ([facility] ORAL) Take 1 tablet by mouth once daily. - CHOLECALCIFEROL, VITAMIN D3, (VITAMIN D3 ORAL) Take by mouth once daily. - LUTEIN ORAL Take 1 tablet by mouth once daily. - MULTIVITAMIN TABLET PO Take one(1) tablet daily. 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 COAG (chronic open-angle glaucoma) - Both Eyes *07/06/2014 10/14/2017 Glaucomatous atrophy (cupping) of optic disc - *07/06/2014 08/05/2015 Visual field defect, unspecified - Right Eye [H*07/06/2014 08/05/2015 Other and combined forms of senile cataract - B*07/06/2014 05/23/2019 History of uterine cancer [Z85.42] 08/08/2014 Regular astigmatism - Both Eyes [H52.229] 11/08/2014 S/P laser cataract surgery [Z98.49] 11/22/2014 Lens replaced by other means - Left Eye [Z96.1] 11/29/2014 08/05/2015 Nasal step visual field defect of right eye [H5*08/05/2015 CRVO (central retinal vein occlusion) [H34.8192]08/05/2015 Pseudophakia of both eyes [Z96.1] 08/05/2015 Primary open angle glaucoma of both eyes, moder*10/01/2016 10/14/2017 Visual field loss [H53.40] 10/01/2016 Optic cuppin (more content not included)... [facility] ROS[facility] KENNED[facility] ([id number]) 1945 F Date Time Provider Department 12/24/23 FRANKLIN SALMON GYNMN During your visit today, we recorded the following information about you: Shanae Cobian 12/24/2023 2:24 PM Signed Reason for call: other - Provider name: Dr Salmon Additional comments: [facility] caremark mailed letter Drug Utilization review program provides educational information regarding the patient drug therapy. Duplication. Solifenacin and Trospium. Letter scan into epic Recommendation: routed to nurse triage pool Last visit in this department: Visit date not found Last [facility] visit in this department: Visit date not found Next visit in this department: Visit date not found Deborah Aguilar RN 12/24/2023 4:07 PM Signed Pt did not take trospium and solifenacin concurrently. Trospium was discontinued and solifenacin initially prescribed at 11/18/23 OV. Deborah Aguilar RN December 24, 2023 4:05 PM Allergies As of Date: 12/24/2023 Noted Allergy Reaction CODEINE 02/24/2001 Comments: hives CONTRAST DYE (IODINE) 03/24/2023 6 - Diarrhea Comments: Diarrhea after oral contrast. ERYTHROMYCIN 08/03/2014 8 - GI Upset METHYLPREDNISOLONE 08/03/2014 4 - Hives Comments: IV SULFA (SULFONAMIDE ANTIBIOTICS) 02/24/2001 Comments: hives Date Reviewed: 12/17/2023 Reviewed by: Estela Zhang - Fully Assessed Reason for Visit: Medication Question [3388] Prescriptions as of 12/24/2023 - solifenacin (VESICARE) 5 mg tablet Take 1 tablet by mouth once daily. - potassium chloride (K-TAB) 10 mEq tablet Take 10 mEq by mouth two times a day. - lenvatinib (LENVIMA) 20 mg/day (10 mg x 2) capsules Take 2 capsules (20 mg) by mouth once daily. - rivaroxaban (XARELTO) 15 mg tablet Take 20 mg by mouth once daily. - ondansetron (ZOFRAN) 8 mg tablet Take 1 tablet by mouth every 6 hours as needed for nausea/vomiting. - levothyroxine (LEVOXYL) 25 mcg tablet Take 1 tablet by mouth once daily. Take on empty stomach. For Thyroid - mirtazapine (REMERON) 15 mg tablet Take 1 tablet by mouth daily at bedtime. - meloxicam (MOBIC) 15 mg tablet Take 1 tablet by mouth once daily. With food. - atorvastatin (LIPITOR) 40 mg tablet Take 1 tablet by mouth daily at bedtime. For cholesterol. - Methenamine Hippurate (HIPREX) 1 gram tablet Take 1 tablet by mouth twice daily with meals. - furosemide (LASIX) 20 mg tablet Take one tablet every day but if looses more than 10 pounds in a week then she needs to hold it. - buPROPion (WELLBUTRIN) 75 mg tablet Take it once a day in the morning. - sertraline (ZOLOFT) 25 mg tablet Take 1 tablet by mouth once daily. - sertraline (ZOLOFT) 100 mg tablet Take 1 tablet by mouth once daily. To take along with 25 mgs to make a total of 125 mgs - travoprost (TRAVATAN Z) 0.004 % ophthalmic drops Use 1 Drop in both eyes daily at bedtime. - brimonidine-timolol (COMBIGAN) 0.2-0.5 % ophthalmic solution Use 1 Drop in the right eye twice daily. Use at 9 AM and 3 PM - ondansetron orally disintegrating (ZOFRAN ODT) 4 mg disintegrating tablet Take 1 tablet by mouth every 6 hours as needed for nausea/vomiting. - aspirin, enteric coated (ECOTRIN LOW STRENGTH) 81 mg EC tablet Take 1 tablet by mouth once daily. - calcium carb/vitamin D3/vit K1 (VIACTIV ORAL) Take 1 tablet by mouth once daily. - L GASSERI/B BIFIDUM/B LONGUM ([facility] ORAL) Take 1 tablet by mouth once daily. - CHOLECALCIFEROL, VITAMIN D3, (VITAMIN D3 ORAL) Take by mouth once daily. - LUTEIN ORAL Take 1 tablet by mouth once daily. - MULTIVITAMIN TABLET PO Take one(1) tablet daily. 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 COAG (chronic open-angle glaucoma) - Both Eyes *07/06/2014 10/14/2017 Glaucomatous atrophy (cupping) of optic disc - *07/06/2014 08/05/2015 Visual field defect, unspecified - Right Eye [H*07/06/2014 08/05/2015 Other and combined forms of senile cataract - B*07/06/2014 05/23/2019 History of uterine cancer [Z85.42] 08/08/2014 Regular astigmatism - Both Eyes [H52.229] 11/08/2014 S/P laser cataract surgery [Z98.49] 11/22/2014 Lens replaced by other means - Left Eye [Z96.1] 11/29/2014 08/05/2015 Nasal step visual field defect of right eye [H5*08/05/2015 CRVO (central retinal vein occlusion) [H34.8192]08/05/2015 Pseudophakia of both eyes [Z96.1] 08/05/2015 Primary open angle glaucoma of both eyes, moder (more content not included)... Normal [facility] 12-09-2023 [facility] Telephone ([facility]) BRENTROSITA Mela ([id number]) 1945 F Date Time Provider Department 12/09/23 FRANKLIN SALMON [facility] During your visit today, we recorded the following information about you: Lindsey Reynolds 12/09/2023 11:32 AM Signed Pt son calling. Would like to give update and discuss issues mother is having. Please contact him at [phone] Wanda Maldonado, RN 12/10/2023 4:35 PM Signed S: Rosita Stafford's son, calls to report his mom finished taking the course of Macrobid. He wanted to report that she is still having bleeding. Hard for him to quantify amount of bleeding, but states bleeding is in toilet and on her depends. States his mom reported bleeding was a little shake loader today. Denies any dizziness or light headedness. States they have an appointment on Wednesday with a palliative care doctor in [place] to hopefully help navigates things. That doctor mentioned possible bladder micro radiation or weekly bladder cleansing. B: Last VV 12/01/23: Impression: Rosita Kennedy is a 78 year old female with Radiation cystitis, bladder lesion Bladder findings on cysto c/w radiation cystitis, but also concerning for bladder cancer. Had CT scan in 08/2023 for uterine cancer mgmt without evidence of pelvic disease, but concerning on cystoscopy. Discussed with Rosita and her family that biopsy is the recommended next step, with if it is cancer discussion of possible resection and treatment, but that discussion is with urologist. I am unable to provide more information about treatment at this time. Rosita does not desire to know if the abnormal lesions on her bladder are malignant or not, as she does not desire further evaluation and cancer treatment, If needed. Rosita also does not desire further management of uterine cancer treatment if needed. She desires improved quality of life, and desires botox treatment (see below). We did discuss with her daughter in law the possibility of a tumor that grows in the bladder and might prevent botox from working if bladder tissue integrity changes, but at this time Rosita wishes to just focus on treatment of her symptoms instead of further evaluation of this abnormal appearing tissue. After discussion with sons and daughter in laws, plan is to treat UUI symptoms with botox and defer evaluation of abnormal tissue. Rosita and her family are in agreement with this plan, all questions answered. Will let Dr. Roberts know of our discussion. UUI Plan for botox 100 units, chart routed to Bethany esparza She has tried sanctura without improvement in her symptoms, also has tried behavioral modifications without improvement She has a small bladder capacity, with terminal DO at 150mL during simple cystometrics on exam. Medication unlikely to be helpful and recommend treatment with third line therapy given her severe symptoms Follow up for office botox 100 units Franklin Salmon MD 01/11/24 scheduled for: Procedure: BIOPSY BLADDER Procedure: CYSTOURETHROSCOPY W/INJECTION(S) FOR CHEMODENERVATION OF THE BLADDER A: Update from patient's son for Dr. Salmon regarding continued bleeding post course of antibiotic treatment. R: Informed message will be forwarded to Dr. Salmon for review/recommendation sMONTSE Rush Crystal 12/14/2023 4:15 PM Signed Scheduled patient for tele-visit. Left message on [facility] the date and time. Asked to call office if not feasible. Allergies As of Date: 12/09/2023 Noted Allergy Reaction CODEINE 02/24/2001 Comments: hives CONTRAST DYE (IODINE) 03/24/2023 6 - Diarrhea Comments: Diarrhea after oral contrast. ERYTHROMYCIN 08/03/2014 8 - GI Upset METHYLPREDNISOLONE 08/03/2014 4 - Hives Comments: IV SULFA (SULFONAMIDE ANTIBIOTICS) 02/24/2001 Comments: hives Date Reviewed: 11/18/2023 Reviewed by: Gopal Argueta RN - Fully Assessed Reason for Visit: Patient Update [1234] Prescriptions as of 12/14/2023 - solifenacin (VESICARE) 5 mg tablet Take 1 tablet by mouth once daily. - potassium chloride (K-TAB) 10 mEq tablet Take 10 mEq by mouth two times a day. - lenvatinib (LENVIMA) 20 mg/day (10 mg x 2) capsules Take 2 capsules (20 mg) by mouth once daily. - rivaroxaban (XARELTO) 15 mg tablet Take 20 mg by mouth once daily. - ondansetron (ZOFRAN) 8 mg tablet Take 1 tablet by mouth every 6 hours as needed for nausea/vomiting. - levothyroxine (LEVOXYL) 25 mcg tablet Take 1 tablet by mouth once daily. Take on empty stomach. For Thyroid - mirtazapine (REMERON) 15 mg tablet Take 1 tablet by mouth daily at bedtime. - meloxicam (MOBIC) 15 mg tablet Take 1 tablet by mouth once daily. With food. - atorvastatin (LIPITOR) 40 mg tablet Take 1 tablet by mouth daily at bedtime. For cholesterol. - Methenamine Hippurate (HIPREX) 1 gram tablet Take 1 tablet by mouth twice daily with meals. - furosemide (LASIX) 20 mg tablet (more content not included)... [facility] BREN[facility]ITA ([id number]) 1945 F Date Time Provider Department 12/08/23 FRANKLIN SALMON During your visit today, we recorded the following information about you: Smitha Belcher 12/08/2023 10:44 AM Signed Called patient's son Rivera and he called the patient on [address], pt accepted 01/11/24 surgery date at , scheduled pre AND post op appts and informed pt teaching appt will not appear on [employer] Allergies As of Date: 12/08/2023 Noted Allergy Reaction CODEINE 02/24/2001 Comments: hives CONTRAST DYE (IODINE) 03/24/2023 6 - Diarrhea Comments: Diarrhea after oral contrast. ERYTHROMYCIN 08/03/2014 8 - GI Upset METHYLPREDNISOLONE 08/03/2014 4 - Hives Comments: IV SULFA (SULFONAMIDE ANTIBIOTICS) 02/24/2001 Comments: hives Date Reviewed: 11/18/2023 Reviewed by: Gopal Argueta, RN - Fully Assessed Reason for Visit: Schedule Surgery [1330] Prescriptions as of 12/08/2023 - nitrofurantoin monohydrate and macrocrystal (MACROBID) 100 mg capsule Take 1 capsule by mouth two times a day for 7 days. - phenazopyridine (PYRIDIUM) 200 mg tablet Take 1 tablet by mouth three times a day as needed for up to 5 days. - solifenacin (VESICARE) 5 mg tablet Take 1 tablet by mouth once daily. - potassium chloride (K-TAB) 10 mEq tablet Take 10 mEq by mouth two times a day. - lenvatinib (LENVIMA) 20 mg/day (10 mg x 2) capsules Take 2 capsules (20 mg) by mouth once daily. - rivaroxaban (XARELTO) 15 mg tablet Take 20 mg by mouth once daily. - ondansetron (ZOFRAN) 8 mg tablet Take 1 tablet by mouth every 6 hours as needed for nausea/vomiting. - levothyroxine (LEVOXYL) 25 mcg tablet Take 1 tablet by mouth once daily. Take on empty stomach. For Thyroid - mirtazapine (REMERON) 15 mg tablet Take 1 tablet by mouth daily at bedtime. - meloxicam (MOBIC) 15 mg tablet Take 1 tablet by mouth once daily. With food. - atorvastatin (LIPITOR) 40 mg tablet Take 1 tablet by mouth daily at bedtime. For cholesterol. - Methenamine Hippurate (HIPREX) 1 gram tablet Take 1 tablet by mouth twice daily with meals. - furosemide (LASIX) 20 mg tablet Take one tablet every day but if looses more than 10 pounds in a week then she needs to hold it. - buPROPion (WELLBUTRIN) 75 mg tablet Take it once a day in the morning. - sertraline (ZOLOFT) 25 mg tablet Take 1 tablet by mouth once daily. - sertraline (ZOLOFT) 100 mg tablet Take 1 tablet by mouth once daily. To take along with 25 mgs to make a total of 125 mgs - travoprost (TRAVATAN Z) 0.004 % ophthalmic drops Use 1 Drop in both eyes daily at bedtime. - brimonidine-timolol (COMBIGAN) 0.2-0.5 % ophthalmic solution Use 1 Drop in the right eye twice daily. Use at 9 AM and 3 PM - ondansetron orally disintegrating (ZOFRAN ODT) 4 mg disintegrating tablet Take 1 tablet by mouth every 6 hours as needed for nausea/vomiting. - aspirin, enteric coated (ECOTRIN LOW STRENGTH) 81 mg EC tablet Take 1 tablet by mouth once daily. - calcium carb/vitamin D3/vit K1 (VIACTIV ORAL) Take 1 tablet by mouth once daily. - L GASSERI/B BIFIDUM/B LONGUM ([facility] ORAL) Take 1 tablet by mouth once daily. - CHOLECALCIFEROL, VITAMIN D3, (VITAMIN D3 ORAL) Take by mouth once daily. - LUTEIN ORAL Take 1 tablet by mouth once daily. - MULTIVITAMIN TABLET PO Take one(1) tablet daily. 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 COAG (chronic open-angle glaucoma) - Both Eyes *07/06/2014 10/14/2017 Glaucomatous atrophy (cupping) of optic disc - *07/06/2014 08/05/2015 Visual field defect, unspecified - Right Eye [H*07/06/2014 08/05/2015 Other and combined forms of senile cataract - B*07/06/2014 05/23/2019 History of uterine cancer [Z85.42] 08/08/2014 Regular astigmatism - Both Eyes [H52.229] 11/08/2014 S/P laser cataract surgery [Z98.49] 11/22/2014 Lens replaced by other means - Left Eye [Z96.1] 11/29/2014 08/05/2015 Nasal step visual field defect of right eye [H5*08/05/2015 CRVO (central retinal vein occlusion) [H34.8192]08/05/2015 Pseudophakia of both eyes [Z96.1] 08/05/2015 Primary open angle glaucoma of both eyes, moder*10/01/2016 10/14/2017 Visual field loss [H53.40] 10/01/2016 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 Normal [facility] Bacteria identifiedon 2023 Bacteria identified Cx Nom (U) Test: Urine Culture Specimen Source: Clean Catch/Voided Specimen Type: Urine Specimen Date: 12/03/2023 11:04 AM Result Date: 12/05/2023 8:36 AM Result Status: Final result Abnormal: Yes Resulting Lab: [facility] [id number] [id number] CULTURE Multiple organisms present, probable contamination. Repeat culture if clinically indicated. (Abnormal) Abnormal [facility] Comment on above: Performed By: #### 6 30-4 #### EDI Wiseman ([id number]) [facility] ([facility]) [address] [place] [address] [place] 12-03-2023 [facility] Telephone ([facility]) ROSITA KENNEDY ([id number]) 1945 F Date Time Provider Department 12/03/23 FRANKLIN SALMON During your visit today, we recorded the following information about you: Suzie Carver LPN 12/03/2023 12:14 PM Signed Patient son Rivera Kennedy called into [employer] office. URO/POLITICAL RESEARCH SCIENTIST nurses are not in today at [place]. Patients son has concerns re blood in patients his mothers urine. Can someone please reach out to son at [phone]. He is her ER contact. Thanks LUIS Roberson Natasha, RN 12/03/2023 3:24 PM Addendum Called and spoke with pts son Rivera who is listed as patients emergency contact in [facility]. Rivera states his mom currently has blood in her urine. She is also having some pain and burning. Pt also reports some dizziness. A urine culture order was placed when pt has a virtual visit with Dr. Salmon on 11/30. Per pts son, pt has a hard time leaving or providing urine samples. Pts hospice nurse was at the home today and was unable to obtain a sample from the pt. Pt also lives in [place] and she does not live close to a [facility]. Allergies: Codeine Comment:hives Contrast Dye [Iodin* Diarrhea Comment:Diarrhea after oral contrast. Erythromycin GI Upset Methylprednisolone Hives Comment:IV Sulfa (Sulfonamide * Comment:hives Pharmacy verified and confirmed in epic Pt currently takes Hiprex daily for frequent UTI's Routing to [employer] NEWS DEPARTMENT INTERN's to please advise next steps Last office visit: 12/01/2023 distance health Impression: Rosita Kennedy is a 78 year old female with Radiation cystitis, bladder lesion Bladder findings on cysto c/w radiation cystitis, but also concerning for bladder cancer. Had CT scan in 08/2023 for uterine cancer mgmt without evidence of pelvic disease, but concerning on cystoscopy. Discussed with Rosita and her family that biopsy is the recommended next step, with if it is cancer discussion of possible resection and treatment, but that discussion is with urologist. I am unable to provide more information about treatment at this time. Rosita does not desire to know if the abnormal lesions on her bladder are malignant or not, as she does not desire further evaluation and cancer treatment, If needed. Rosita also does not desire further management of uterine cancer treatment if needed. She desires improved quality of life, and desires botox treatment (see below). We did discuss with her daughter in law the possibility of a tumor that grows in the bladder and might prevent botox from working if bladder tissue integrity changes, but at this time Rosita wishes to just focus on treatment of her symptoms instead of further evaluation of this abnormal appearing tissue. After discussion with sons and daughter in laws, plan is to treat UUI symptoms with botox and defer evaluation of abnormal tissue. Rosita and her family are in agreement with this plan, all questions answered. Will let Dr. Roberts know of our discussion. UUI Plan for botox 100 units, chart routed to Bethany esparza She has tried sanctura without improvement in her symptoms, also has tried behavioral modifications without improvement She has a small bladder capacity, with terminal DO at 150mL during simple cystometrics on exam. Medication unlikely to be helpful and recommend treatment with third line therapy given her severe symptoms Follow up for office botox 100 units MD Yrn Cortés Natalie, APRN.[facility] 12/03/2023 4:50 PM Addendum I called and spoke with Rosita's son, Rivera, in follow up. Given last OV note and pt's desire to defer all workup for bladder lesion and pursue comfort care, her difficulty providing a specimen, and her challenges getting to a [facility] location, I would not recommend an ED visit at this time. He is in agreement with this. Script for empiric treatment and pyridium sent to pharmacy on file. Recommend she start antibiotic now for presumed UTI; she can take pyridium concurrently for dysuria to see if this provides her some relief as well. Please have her notify the office if her symptoms persist after completing antibiotic course, or worsen at any time. Rivera was appreciative of the call and verbalized understanding. The following approved medication requests have been transmitted electronically. Requested Prescriptions Signed Prescriptions Disp Refills nitrofurantoin monohydrate and macrocrystal (MACROBID) 100 mg capsule 14 capsule 0 Sig: Take 1 capsule by mouth two times a day for 7 days. Authorizing Provider: JOCELYNN GARDNER phenazopyridine (PYRIDIUM) 200 mg tablet 15 tablet 0 Sig: Take 1 tablet by mouth three times a day as needed for up to 5 days. Authorizing Provider: JOCELYNN GARDNER APRN.Jocelynn Albright APRN.[facility] 12/03/2023 4:50 (more content not included)... Normal [facility] 12-02-2023 [facility] Telephone ([facility]) ROSITA KENNEDY ([id number]) 1945 F Date Time Provider Department 12/02/23 FRANKLIN SALMON During your visit today, we recorded the following information about you: Franchesca Sanchez RN 12/02/2023 12:03 PM Signed Botox referral received for 100 units -- 1st injection. CPT codes added. Will monitor status. PPX antibiotics: Will need Blood thinners: Xarelto, Aspirin 81mg LV: 12/01/[address] Salmon Impression: Rosita Kennedy is a 78 year old female with Radiation cystitis, bladder lesion Bladder findings on cysto c/w radiation cystitis, but also concerning for bladder cancer. Had CT scan in 08/2023 for uterine cancer mgmt without evidence of pelvic disease, but concerning on cystoscopy. Discussed with Rosita and her family that biopsy is the recommended next step, with if it is cancer discussion of possible resection and treatment, but that discussion is with urologist. I am unable to provide more information about treatment at this time. Rosita does not desire to know if the abnormal lesions on her bladder are malignant or not, as she does not desire further evaluation and cancer treatment, If needed. Rosita also does not desire further management of uterine cancer treatment if needed. She desires improved quality of life, and desires botox treatment (see below). We did discuss with her daughter in law the possibility of a tumor that grows in the bladder and might prevent botox from working if bladder tissue integrity changes, but at this time Rosita wishes to just focus on treatment of her symptoms instead of further evaluation of this abnormal appearing tissue. After discussion with sons and daughter in laws, plan is to treat UUI symptoms with botox and defer evaluation of abnormal tissue. Rosita and her family are in agreement with this plan, all questions answered. Will let Dr. Roberts know of our discussion. UUI Plan for botox 100 units, chart routed to Bethany esparza She has tried sanctura without improvement in her symptoms, also has tried behavioral modifications without improvement She has a small bladder capacity, with terminal DO at 150mL during simple cystometrics on exam. Medication unlikely to be helpful and recommend treatment with third line therapy given her severe symptoms Follow up for office botox 100 units MD Franchesca Cortés RN December 02, 2023 11:57 AM Bethany Esparza RN 12/16/2023 2:30 PM Signed Botox approved through 12/06/24 Updated sticky note. Sending to WP to schedule pt. Bethany Esparza RN December 16, 2023 2:29 PM === PHARMACY TEAM ==== APPROVAL RECEIVED Benefit Type: Medical Insurance Name: [employer] Location Tax ID: [id number] NP [id number] Authorization received via portal: [employer] Drug Name(s) AND HCPCS Code(s): Botox J0585 Approval Date Range: 12/07/2023 to 12/06/2024 Approval #: [id number] Dose AND Frequency: 100 units every 90 days for a year # Visits/Treatments (if applicable): 99 Wanda Varela 12/22/2023 10:18 AM Signed Pt is scheduled for a bladder biopsy. Are we still moving ahead with scheduling Botox? We haven't called her yet. Please advise. Wanda Varela 12/22/2023 10:21 AM Signed Nevermind, I see we are moving ahead with Botox. Wanda Varela 12/22/2023 10:42 AM Signed Pt scheduled in on January 19 because her son stated that they probably weren't going to go ahead with the bladder biopsy. He will confirm and get back to us. Bethany Esparza RN 01/06/2024 8:34 AM Signed Per visit with Luis Antonio on 12/15. Plan to have Botox under sedation on 01/10. Cancelled appt on 01/19. Bethany Esparza RN January 06, 2024 8:34 AM Allergies As of Date: 12/02/2023 Noted Allergy Reaction CODEINE 02/24/2001 Comments: hives CONTRAST DYE (IODINE) 03/24/2023 6 - Diarrhea Comments: Diarrhea after oral contrast. ERYTHROMYCIN 08/03/2014 8 - GI Upset METHYLPREDNISOLONE 08/03/2014 4 - Hives Comments: IV SULFA (SULFONAMIDE ANTIBIOTICS) 02/24/2001 Comments: hives Date Reviewed: 11/18/2023 Reviewed by: Gopal Argueta RN - Fully Assessed Reason for Visit: Care Coordination [2375] Cmt: Botox Prescriptions as of 01/06/2024 - XARELTO 20 mg tablet Take 1 tablet by mouth once daily. - solifenacin (VESICARE) 5 mg tablet Take 1 tablet by mouth once daily. - lenvatinib (LENVIMA) 20 mg/day (10 mg x 2) capsules Take 2 capsules (20 mg) by mouth once daily. - ondansetron (ZOFRAN) 8 mg tablet Take 1 tablet by mouth every 6 hours as needed for nausea/vomiting. - levothyroxine (LEVOXYL) 25 mcg tablet Take 1 tablet by mouth once daily. Take on empty stomach. For Thyroid - mirtazapine (REMERON) 15 mg tablet Take 1 tablet by mouth daily at bedtime. - meloxicam (MOBIC) 15 mg tablet Take 1 tablet by mouth once daily. With food. - atorvastatin (LIPITOR) 40 mg tablet Take 1 tablet by mouth daily at bedtime. (more content not included)... [facility] 11-24-2023 [facility] Telephone ([facility]) ROSITA KENNEDY ([id number]) 1945 F Date Time Provider Department 11/24/23 FRANKLIN SALMON [facility] During your visit today, we recorded the following information about you: [facility], [facility] 11/24/2023 11:34 AM Signed 1st attempt to contact the patient to schedule surgery. [facility], [facility] 11/26/2023 10:02 AM Signed 2nd attempt to contact the patient to schedule surgery. [facility], [facility] 12/08/2023 10:28 AM Signed 3rd attempt to contact the patient to schedule surgery. [facility] AND sent [employer] message Allergies As of Date: 11/24/2023 Noted Allergy Reaction CODEINE 02/24/2001 Comments: hives CONTRAST DYE (IODINE) 03/24/2023 6 - Diarrhea Comments: Diarrhea after oral contrast. ERYTHROMYCIN 08/03/2014 8 - GI Upset METHYLPREDNISOLONE 08/03/2014 4 - Hives Comments: IV SULFA (SULFONAMIDE ANTIBIOTICS) 02/24/2001 Comments: hives Date Reviewed: 11/18/2023 Reviewed by: Gopal Argueta RN - Fully Assessed Reason for Visit: Schedule Surgery [1330] Prescriptions as of 12/08/2023 - nitrofurantoin monohydrate and macrocrystal (MACROBID) 100 mg capsule Take 1 capsule by mouth two times a day for 7 days. - phenazopyridine (PYRIDIUM) 200 mg tablet Take 1 tablet by mouth three times a day as needed for up to 5 days. - solifenacin (VESICARE) 5 mg tablet Take 1 tablet by mouth once daily. - potassium chloride (K-TAB) 10 mEq tablet Take 10 mEq by mouth two times a day. - lenvatinib (LENVIMA) 20 mg/day (10 mg x 2) capsules Take 2 capsules (20 mg) by mouth once daily. - rivaroxaban (XARELTO) 15 mg tablet Take 20 mg by mouth once daily. - ondansetron (ZOFRAN) 8 mg tablet Take 1 tablet by mouth every 6 hours as needed for nausea/vomiting. - levothyroxine (LEVOXYL) 25 mcg tablet Take 1 tablet by mouth once daily. Take on empty stomach. For Thyroid - mirtazapine (REMERON) 15 mg tablet Take 1 tablet by mouth daily at bedtime. - meloxicam (MOBIC) 15 mg tablet Take 1 tablet by mouth once daily. With food. - atorvastatin (LIPITOR) 40 mg tablet Take 1 tablet by mouth daily at bedtime. For cholesterol. - Methenamine Hippurate (HIPREX) 1 gram tablet Take 1 tablet by mouth twice daily with meals. - furosemide (LASIX) 20 mg tablet Take one tablet every day but if looses more than 10 pounds in a week then she needs to hold it. - buPROPion (WELLBUTRIN) 75 mg tablet Take it once a day in the morning. - sertraline (ZOLOFT) 25 mg tablet Take 1 tablet by mouth once daily. - sertraline (ZOLOFT) 100 mg tablet Take 1 tablet by mouth once daily. To take along with 25 mgs to make a total of 125 mgs - travoprost (TRAVATAN Z) 0.004 % ophthalmic drops Use 1 Drop in both eyes daily at bedtime. - brimonidine-timolol (COMBIGAN) 0.2-0.5 % ophthalmic solution Use 1 Drop in the right eye twice daily. Use at 9 AM and 3 PM - ondansetron orally disintegrating (ZOFRAN ODT) 4 mg disintegrating tablet Take 1 tablet by mouth every 6 hours as needed for nausea/vomiting. - aspirin, enteric coated (ECOTRIN LOW STRENGTH) 81 mg EC tablet Take 1 tablet by mouth once daily. - calcium carb/vitamin D3/vit K1 (VIACTIV ORAL) Take 1 tablet by mouth once daily. - L GASSERI/B BIFIDUM/B LONGUM ([facility] ORAL) Take 1 tablet by mouth once daily. - CHOLECALCIFEROL, VITAMIN D3, (VITAMIN D3 ORAL) Take by mouth once daily. - LUTEIN ORAL Take 1 tablet by mouth once daily. - MULTIVITAMIN TABLET PO Take one(1) tablet daily. 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 COAG (chronic open-angle glaucoma) - Both Eyes *07/06/2014 10/14/2017 Glaucomatous atrophy (cupping) of optic disc - *07/06/2014 08/05/2015 Visual field defect, unspecified - Right Eye [H*07/06/2014 08/05/2015 Other and combined forms of senile cataract - B*07/06/2014 05/23/2019 History of uterine cancer [Z85.42] 08/08/2014 Regular astigmatism - Both Eyes [H52.229] 11/08/2014 S/P laser cataract surgery [Z98.49] 11/22/2014 Lens replaced by other means - Left Eye [Z96.1] 11/29/2014 08/05/2015 Nasal step visual field defect of right eye [H5*08/05/2015 CRVO (central retinal vein occlusion) [H34.8192]08/05/2015 Pseudophakia of both eyes [Z96.1] 08/05/2015 Primary open angle glaucoma of both eyes, moder*10/01/2016 10/14/2017 Visual field loss [H53.40] 10/01/2016 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 Normal [facility] CNOVon 11-18-2023 CNOV Office Visit (GYURWP ) ROSITA KENNEDY ([id number]) 1945 F Date Time Provider Department 11/18/23 1:30 PM FRANKLIN SALMONP During your visit today, we recorded the following information about you: Weight Height 48.3 kg 1.524 m Franklin Salmon MD 11/19/2023 1:20 PM Signed Rosita Kennedy presents today for diagnostic cystoscopy. Indication: Cystitis UNIVERSAL PROTOCOL / SAFETY CHECKLIST Procedure to be Performed: cystoscopy Sign In: A Moment of CARE was completed. Personnel directly involved with the procedure wore the appropriate PPE (Personal Protective Equipment). Patient/Surrogate Stated/Verified: PATIENT VERIFIED(optional for EMERGENT procedures): Patient name, Date of , Relevant allergies, and The intended procedure Time Out Communication: Intended patient and procedure match the source documents. Consent documented and matches the intended procedure. Sign Out: SIGN OUT (optional for EMERGENT procedures): No specimen collected. All instruments, equipment, possible retained foreign bodies accounted for. PROCEDURE: Indication: Cystitis. The patient understands the RBA but not limited to UTI, hematuria, urinary retention (dose dependent), treatment failure and transient weakness (rare). Brief description of procedure: After obtaining written informed consent, a time out was performed. The patient was placed in dorsal lithotomy position, then prepped and draped in the usual sterile fashion. 2% urethral lidocaine jelly was introduced into the urethra and allowed to take analgesic effect. Anesthesia: Intraurethral Lidocaine jelly 6 mL. Video-assisted cystourethroscopy was performed using a 19 Ghanaian 70 degree cystoscope with saline infusion. The cystoscope was advanced into the bladder. Next, the bladder was evaluated. Bilateral ureteral orifices were identified in normal orthotopic position. The bladder mucosa was evaluated in its entirety. Small capacity bladder with appearance of radiation cystitis. Inflamed areas and at bladder base and approximately 8 oclock some raised areas. Global erythema. Finally, the cystoscope was removed from the bladder and the urethra evaluated again. The patient tolerated the procedure well. There were no complications. Findings: Small capacity bladder with appearance of radiation cystitis. Inflamed areas and at bladder base and approximately 8 oclock some raised areas. Global erythema. Findings consistent with radiation cystitis, but borderline concerning for dysplasia. Complications: none Procedure Summary: Patient tolerated procedure well. Medications: None Plan: Radiation cystitis Findings as above, likely etiology of UUI, small bladder capacity Consider repeating cystoscopy in 3 months to evaluate for changes Can do at time of botox if needed UUI Try vesicare for 3-4 weeks, if it isn't helpful will plan for 100 units botox Follow up in 1 month to discuss vesicare trial, possible botox, and radiation cystitis plan MD Luis Antonio Cortés Alexandra, MD 11/19/2023 4:14 PM Signed Tried to call Rosita, unsuccessful at reaching her, spoke with her [id number] Winter who is present to many appointments. After discussion cystoscopy and images with some of my co partners I recommend repeat cystoscopy with bladder biopsy sooner than 3 months. Likely there are radiation changes, but concern for malignancy as well. Her symptoms are severe, and while she has already tried one anticholinergic, trialing another now but I am not confident she will see much improvement and recommend bladder botox. She has tried and failed behavioral modifications. With radiation cystitis, Bladder Botox 100 units would be the next best step. Last - she has decided not to proceed with follow up PET scan with [facility] for her metastatic uterine cancer. Last CT in 08/2023 did not reveal pelvic disease, but PET is better evaluation. Possible she has developed malignancy regardless in her bladder. Winter will discus with Rosita red if they want to proceed with bladder biopsy. I discussed next step would be urology consult and management, if desired. ticket scheduler to call. If Rosita has additional questions she can call our office and schedule virtual visit (or in person) with me prior to. All questions answered. MD Luis Antonio Cortés Alexandra, MD 11/19/2023 4:14 PM Signed Addended by: FRANKLIN SALMON on: 11/19/2023 04:14 PM Modules accepted: Orders Referring Provider: FRANKLIN SALMON [[id number]] Allergies As of Date: 11/18/2023 Noted Allergy Reaction CODEINE 02/24/2001 Comments: hives CONTRAST DYE (IODINE) 03/24/2023 6 - Diarrhea Comments: Diarrhea after oral contrast. ERYTHROMYCIN 08/03/2014 8 - GI Upset METHYLPREDNISOLONE 08/03/2014 4 - Hives Comments: IV SULFA (SULFONAMIDE ANTIBIOTICS) 02/24/2001 Comments (more content not included)... [facility] ROSITA KENNEDY ([id number]) 1945 F Date Time Provider Department 10/08/23 FRANKLIN SALMON G[facility] During your visit today, we recorded the following information about you: Darby Dominguez 10/08/2023 3:20 PM Signed Pt saw Dr. Salmon earlier this week and was prescribed gemtesa 75mg daily. Was told if too expensive can try vesicare or sanctura. Son called in to find out what the dosage of each of those would be so he could hinton out each and see what would be the better option. His name is Rivera [phone]. Thanks! Skylar Everett, RN 10/08/2023 4:19 PM Signed Son would like to know the dosing of the vesicare and sanctura to determine hinton point. Pt of Dr.Melnyk DUMONT 10/06/23: IMPRESSION AND PLAN: Rosita Kennedy is a 77 year old female with: Detrusor Overactivity, Cystitis We discussed the signs and symptoms of urge urinary incontinence being associated with and overactivity of the bladder, which decreases the ability of the bladder to store urine consistently. Likely related to h/o radiation, and possible radiation cystitis given findings on CT scan. Significant DO on simple cystometrogram, and also small bladder capacity with terminal Do at 150mL. We discussed treatment options such as conservative measures of timed voiding, avoidance of bladder irritants, avoiding excessive fluid intake, weight loss. We briefly reviewed that if she fails medical therapy, there are 3rd tier options such as posterior tibial nerve stimulation, intravesical botulinum injections, and sacral neuromodulation options available. She has elected to undergo a trial of medication with: gemtesa 75mg daily. If too expensive can try vesicare or sanctura. Skylar Everett RN October 08, 2023 4:18 PM Skylar Everett RN 10/08/2023 4:34 PM Signed Please notify pt's son: Vesicare is 5 or 10mg once daily Sanctura is either 20mg twice daily or 60mg once daily Thank you Called pt's son. Verified by name and . 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 Skylar Everett RN October 08, 2023 4:34 PM Darby Dominguez 10/11/2023 3:36 PM Signed Pt's son called in and said to please send in either one of the other medications recommended (whichever may be cheapest if known). They would like it sent to the [facility] from [facility]. Thanks. Trupti Messer APRN.ART PREPARATOR 10/11/2023 4:39 PM Signed The following approved medication requests have been transmitted electronically. Requested Prescriptions Signed Prescriptions Disp Refills trospium (SANCTURA) 20 mg tablet 180 tablet 3 Sig: Take 1 tablet by mouth two times a day. Authorizing Provider: TRUPTI MESSER Pt should not take oral potassium tablets with trospium (due to risk of gastric erosion). She can either 1.) Place potassium tabs in a glass of water, let sit for 10 minutes or until they are dissolved, and drink it Or 2.) Ask the provider who prescribes the potassium to change Rx to liquid potassium instead of tablets Thanks Trupti Messer APRN.Trupti Smith APRN.CNP 10/11/2023 4:39 PM Signed Addended by: TRUPTI MESSER on: 10/11/2023 04:39 PM Modules accepted: Skylar Gilmore RN 10/11/2023 5:06 PM Signed Left message for son to call back. Skylar Everett RN October 11, 2023 5:05 PM Allergies As of Date: 10/08/2023 Noted Allergy Reaction CODEINE 02/24/2001 Comments: hives CONTRAST DYE (IODINE) 03/24/2023 6 - Diarrhea Comments: Diarrhea after oral contrast. ERYTHROMYCIN 08/03/2014 8 - GI Upset METHYLPREDNISOLONE 08/03/2014 4 - Hives Comments: IV SULFA (SULFONAMIDE ANTIBIOTICS) 02/24/2001 Comments: hives Date Reviewed: 10/06/2023 Reviewed by: Estela Zhang - Fully Assessed Reason for Visit: Medication Question [1478] Primary Visit Diagnosis:OAB (overactive bladder) [N32.81] [N32.81] Order(s):trospium (SANCTURA) 20 mg tabletTake 1 tablet by mouth two times a day.Disp: 180 tabletRfl: 3 Prescriptions as of 10/11/2023 - trospium (SANCTURA) 20 mg tablet Take 1 tablet by mouth two times a day. - potassium chloride (K-TAB) 10 mEq tablet Take 10 mEq by mouth two times a day. - lenvatinib (LENVIMA) 20 mg/day (10 mg x 2) capsules Take 2 capsules (20 mg) by mouth once daily. - rivaroxaban (XARELTO) 15 mg tablet Take 20 mg by mouth once daily. - ondansetron (ZOFRAN) 8 mg tablet Take 1 tablet by mouth every 6 hours as needed for nausea/vomiting. - levothyroxine (LEVOXYL) 25 mcg tablet Take 1 tablet by mouth once daily. Take on empty stomach. For Thyroid - mirtazapine (REMERON) 15 mg tablet Take 1 tablet by mouth daily at bedtime. - meloxicam (MOBIC) 15 mg tablet Take 1 tablet by mouth once daily. With food. - atorvastatin (LIPITOR) 40 mg tablet Take 1 tablet by mouth daily at bedtime. For cholesterol. - Methenamine Hippurate (HIPREX) 1 gram tablet Take 1 tablet by mouth twice daily with meals. (more content not included)... [facility] 10-07-2023 [facility] Telephone ([facility]) ROSITA KENNEDY ([id number]) 1945 F Date Time Provider Department 10/07/23 FRANKLIN SALMON [facility] During your visit today, we recorded the following information about you: Lindsey Reynolds 10/07/2023 3:53 PM Signed Patient: Rosita Kennedy : 1945 Provider: Franklin Salmon MD Caller Phone #: [phone] (home) [phone] (cell) Reason for call: pt states Dr Salmon advised her to call if prescription she wrote is too expensive. Says Dr Salmon told her she would send something else in, if so Please call Daughter in Winter ann, at [phone] Message routed to nurse triage Date of next visit: Appointments for Next 60 Days Date Time Provider Location Dept Phone 10/14/2023 2:30 PM FRANKLIN SALMON [phone] 11/10/2023 7:[address] [facility] [phone] 11/10/2023 8:[address] [facility] [phone] 11/17/2023 4:00 PM MALATHI ROBERT[facility] [phone] JULIA: 10/06/2023 Deborah Aguilar RN 10/07/2023 4:30 PM Signed Pt requesting cheaper alternative to gemtesa. JULIA - Dr. 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 Likely related to h/o radiation, and possible radiation cystitis given findings on CT scan. Significant DO on simple cystometrogram, and also small bladder capacity with terminal Do at 150mL. We discussed treatment options such as conservative measures of timed voiding, avoidance of bladder irritants, avoiding excessive fluid intake, weight loss. We briefly reviewed that if she fails medical therapy, there are 3rd tier options such as posterior tibial nerve stimulation, intravesical botulinum injections, and sacral neuromodulation options available. She has elected to undergo a trial of medication with: gemtesa 75mg daily. If too expensive can try vesicare or sanctura. Given findings on CT of cystitis and other UA previously with blood, plan for diagnostic cystoscopy. 2. Constipation Discussed constipation can worsen OAB/UUI. Recommend increase miralax to BID and start fiber supplementation. Also recommend taking large dose of mag citrate now as she hasn't had BM in 1 week. 3. Microscopic hematuria Recommend cystoscopy Follow up for office diagnostic cystoscopy Deborah Aguilar, MONTSE October 07, 2023 4:29 PM Aleksander Hurtado APRN.MALIK 10/08/2023 7:[address] Salmon's note, patient can try Vesicare or Sanctura. Do they want to check on the cost of these before I send in a prescription or would they prefer I send the prescription in first? Aleksander Hurtado APRN.Franchesca Michel RN 10/08/2023 10:01 AM Signed Called patient, LVM requesting she call the office back regarding her medication. Franchesca Sanchez RN Allergies As of Date: 10/07/2023 Noted Allergy Reaction CODEINE 02/24/2001 Comments: hives CONTRAST DYE (IODINE) 03/24/2023 6 - Diarrhea Comments: Diarrhea after oral contrast. ERYTHROMYCIN 08/03/2014 8 - GI Upset METHYLPREDNISOLONE 08/03/2014 4 - Hives Comments: IV SULFA (SULFONAMIDE ANTIBIOTICS) 02/24/2001 Comments: hives Date Reviewed: 10/06/2023 Reviewed by: Estela Zhang - Fully Assessed Reason for Visit: Medication Problem [65] Primary Visit Diagnosis:Detrusor overactivity [N32.81] Prescriptions as of 10/08/2023 - vibegron (GEMTESA) 75 mg tablet Take 1 tablet by mouth once daily. - potassium chloride (K-TAB) 10 mEq tablet Take 10 mEq by mouth two times a day. - lenvatinib (LENVIMA) 20 mg/day (10 mg x 2) capsules Take 2 capsules (20 mg) by mouth once daily. - rivaroxaban (XARELTO) 15 mg tablet Take 20 mg by mouth once daily. - ondansetron (ZOFRAN) 8 mg tablet Take 1 tablet by mouth every 6 hours as needed for nausea/vomiting. - levothyroxine (LEVOXYL) 25 mcg tablet Take 1 tablet by mouth once daily. Take on empty stomach. For Thyroid - mirtazapine (REMERON) 15 mg tablet Take 1 tablet by mouth daily at bedtime. - meloxicam (MOBIC) 15 mg tablet Take 1 tablet by mouth once daily. With food. - atorvastatin (LIPITOR) 40 mg tablet Take 1 tablet by mouth daily at bedtime. For cholesterol. - Methenamine Hippurate (HIPREX) 1 gram tablet Take 1 tablet by mouth twice daily with meals. - furosemide (LASIX) 20 mg tablet Take one tablet every day but if looses more than 10 pounds in a week then she needs to hold it. - buPROPion (WELLBUTRIN) 75 mg tablet Take it once a day in the morning. - sertraline (ZOLOFT) 25 mg tablet Take 1 tablet by mouth once daily. - sertraline (ZOLOFT) 100 mg tablet Take 1 tablet by mouth once daily (more content not included)... [facility] ROSITA KENNEDY ([id number]) 1945 F Date Time Provider Department 10/06/23 10:00 AM FRANKLIN SALMON During your visit today, we recorded the following information about you: Blood pressure Weight Height 143/80 49.4 kg 1.524 m Franklin Salmon MD 10/06/2023 12:29 PM Signed Female Pelvic Medicine AND Reconstructive Surgery Consult CHIEF COMPLAINT: Rosita Kennedy is a 77 year old referred from Nate Krishna CNP, Dr. Roberts for consultation regarding urinary incontinence. She has had a hysterectomy(per pt's family). Pt has urinary incontinence for the past 1 month. No pain. Pt has uterine ca, diagnosis about 10 years ago, last had treatment in the past 6 months but had bad reaction, has decided to not continue treatment. Here with her daughter in law, Winter. HISTORY OF PRESENT ILLNESS: She denies prolapse symptoms. She denies ANTHONY with coughing, laughing, and sneezing. She reports UUI. She does not have symptoms of urinary urgency and report requency. She does feel that she empties her bladder completely. She has not tried overactive bladder medications . Daytime frequency: 5-6 Nocturia: 0 Fluid intake: 0 cups of coffee, and a good amount of water daily. She reports a history of UTIs. Today she denies any burning immediately before she voids.dysuria or denies hematuria. She reports constipation denies bowel movements. She reports fecal incontinence of gas/stool. She does take fiber supplements to help with her constipation. Miralax ensure She reports vaginal dryness. She does not use vaginal estrogen. She is not sexually active. The reports a strong family history of breast and ovarian cancer. Pt has uterine ca. No treatments at this time. Pt's sister had breast ca. 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 Yes, somewhat bothersome (2) Usually experience heaviness or dullness in the pelvic area? Yes, quite a bit bothersome (4) Usually have a bulge or something falling out that you can see or feel in your vaginal area? No (0) Ever have to push on the vagina or around the rectum to have or complete a bowel movement? No (0) Usually experience a feeling of incomplete bladder emptying? Yes, not at all bothersome (1) Ever have to push up on a bulge in the vaginal area with your fingers to start or complete urination? No (0) Feel you need to strain too hard to have a bowel movement? No (0) Feel you have not completely emptied your bowels at the end of a bowel movement? Yes, quite a bit bothersome (4) Usually lose stool beyond your control if your stool is well formed? Yes, quite a bit bothersome (4) Usually lose stool beyond your control if your stool is loose? Yes, quite a bit bothersome (4) Usually lose gas from the rectum beyond your control? Yes, quite a bit bothersome (4) Usually have pain when you pass your stool? Yes, not at all bothersome (1) Experience a strong sense of urgency and have to lujan to the bathroom to have a bowel movement? No (0) Does part of your bowel ever pass through the rectum and bulge outside during or after a bowel movement? No (0) Usually experience frequent urination? Yes, moderately bothersome (3) Usually experience urine leakage associated with a feeling of urgency, that is, a strong sensation of needing to go to the bathroom? Yes, quite a bit bothersome (4) Usually experience urine leakage related to coughing, sneezing or laughing? No (0) Usually experience small amounts of urine leakage (that is, drops)? No (0) Usually experience difficulty emptying your bladder? Yes, not at all bothersome (1) Usually experience pain or discomfort in the lower abdomen or genital region? No (0) PAST MEDICAL HISTORY Diagnosis Date Cataracts, bilateral COAG (chronic open-angle glaucoma) CRVO (central retinal vein occlusion) Disorder of bone and cartilage, unspecified Multiple sclerosis (HCC) 2001 remission currently Pseudophakia, both eyes Pyelonephritis, unspecified 01/2010 Pyelonephritis Uterine cancer (HCC) 08/08/2014 PAST SURGICAL HISTORY Procedure Laterality Date DELIVERY ONLY , low cervical X3 COLONOSCOPY 05/18/2016 Dr. Gibbs. no bx taken COLONOSCOPY, GI 1998, 2009 EYE SURGERY PROCEDURE Left 04/11/2021 Xen Gel stent EYLEA (AFLIBERCEPT) 2MG INTRAVITREAL INJECTION OD (RIGHT EYE) Right 04/02/2016 #7 INSERT ANT SEGMENT DRAIN INT 11/21/2014 iStent Implantation Left Eye LIG/TRNSXJ FLP TUBE ABDL/VAG APPR UNI/BI 1976 PAST SURGICAL HISTORY OF right EYE SURGERY AGE 7 PAST SURGICAL HISTORY OF Right 11/06/2020 Xen Gel PULMONARY FUNCTION TEST 06/07/03 XCAPSL CTRC RMVL INSJ IO LENS PROSTH W/O EC (more content not included)... Normal [facility] CT ABD/PEL W IVCONon 024 CT ABD/PEL W IVCON * * *Final Report* * * DATE OF EXAM: Sep 29 2023 12:02PM [facility] 0530 - CT ABD/PEL W IVCON / PROCEDURE REASON: multiple diagnoses * * * * Physician Interpretation * * * * EXAMINATION: CT ABDOMEN AND PELVIS WITH IV CONTRAST CLINICAL HISTORY: Malignant neoplasm of the uterus. Urinary incontinence. TECHNIQUE: CT of the abdomen and pelvis was performed using standard technique, scanning from just above the dome of the diaphragm to the symphysis pubis. MQ: CTAP_3 Contrast: Central IV: 99 ml of Omnipaque 300 Oral: 12 ml of Omni 240 10-25ml diluted with water CT Radiation dose: Integrated Dose-length product (DLP) for this visit = 310 mGy*cm. CT Dose Reduction Employed: Automated exposure control(AEC) and iterative recon COMPARISON: CT of the abdomen and pelvis with contrast from and PET/CT from 05/20/2023 RESULT: Liver: There is geographic hypoattenuation in segment 4A of the liver which is nonspecific but may be due to fatty infiltration. Subcentimeter hypodense lesion in segment 2 of the liver which is stable and likely represents a cyst. Biliary: No bile duct dilation. Gallbladder is unremarkable. Spleen: No mass. No splenomegaly. Pancreas: No mass or duct dilation. Adrenals: No mass. Kidneys: Mild bilateral renal cortical atrophy. Small subcentimeter hypodense renal lesions which are too small to characterize but may represent cysts. Some of these lesions cannot be confirmed as simple cysts based on the density and small size. Would advise continued attention on follow-up exams. GI tract: No small bowel obstruction. Dense feces throughout the colon, suggestive of constipation. Lymph nodes: No suspicious abdominal or pelvic lymphadenopathy. There is minimal hypodense tissue portacaval region at the site of previously adenopathy. Mesentery/Peritoneum: No ascites or mass. Vasculature: Inferior vena cava filter with tip above level of renal veins. Pelvis: Hysterectomy. There is moderate circumferential thickening of the wall of the urinary bladder with increased urothelial enhancement and stranding in the perinephric. This appearance is highly suspicious for cystitis. Please correlate with urinalysis. If there is clinical uncertainty, definitive evaluation would require cystoscopy. Bones/Soft Tissues: There is osteopenia. Multilevel spondylosis and degenerative disc disease of the lumbar spine. Severe compression deformity of the T10 vertebral body which was present on the prior exam. There is minimal progression of loss of vertebral body height when compared to the prior study. Lower thorax: A chest CT performed will be reported separately. IMPRESSION: 1. There is moderate circumferential thickening of the wall of the urinary bladder with increased urothelial enhancement and stranding in the perinephric. This appearance is highly suspicious for cystitis. Please correlate with urinalysis. If there is clinical uncertainty, definitive evaluation would require cystoscopy 2. No metastatic disease detected in the abdomen or pelvis. 3. Small subcentimeter hypodense renal lesions which are too small to characterize but may represent cysts. Some of these lesions cannot be confirmed as simple cysts based on the density and small size. Would advise continued attention on follow-up exams. Help Desk Support: JUDITH Transcribe Date/Time: Sep 30 2023 11:18A Dictated by : DOV PEREIRA MD This examination was interpreted and the report reviewed and electronically signed by: DOV PEREIRA MD on Sep 30 2023 11:30AM EST [id number] N Normal [facility] CT CHEST W IVCONon 4 CT CHEST W IVCON * * *Final Report* * * DATE OF EXAM: Sep 29 2023 12:02PM [facility] 0539 - CT CHEST W IVCON / PROCEDURE REASON: Malignant neoplasm of uterus, unspecified site (HCC) * * * * Physician Interpretation * * * * EXAMINATION: CHEST CT WITH CONTRAST CLINICAL HISTORY: Malignant neoplasm of the uterus. Technique: Spiral CT acquisition of the chest from the thoracic inlet to the upper abdomen following IV contrast. MQ: CTCW_6 Contrast: 99 mL Omnipaque [address] Radiation dose: Integrated Dose-length product (DLP) for this visit = 310 mGy*cm CT Dose Reduction Employed: Automated exposure control(AEC) and iterative recon Comparison: CT chest on 12/15/2021 RESULT: Limitations: None. Lines, tubes, and devices: No change in position of right chest port catheter. Lung parenchyma and airways: Stable tiny nodular densities along the anterior aspect of the trachea. The central airways are otherwise patent. There is a stable 9 x 5 mm solid nodular density in the right upper lobe, series 9 image 24. A mucoid impaction seen in the right middle lobe, series 9 image 87. No new nodules identified. Dependent/basilar atelectasis is visualized in the lower lungs. No consolidations. No masses. Pleural space: No pleural effusion. No pleural thickening. There is elevation of the right hemidiaphragm. Lower neck, lymph nodes, and mediastinum: The imaged thyroid gland is normal. No lymphadenopathy in the supraclavicular, axillary, mediastinal, or hilar regions. Heart, pericardium, and thoracic vessels: Stable cardiac chambers, thoracic aorta and central pulmonary arteries. No pleural effusion/thickening. Bones and soft tissues: No destructive bone lesion. The spine shows degenerative changes. T10 vertebral body compression deformity/age indeterminate fracture is again demonstrated, with kyphosis. Chest wall soft tissue is unremarkable. Upper abdomen: A dedicated CT abdomen and pelvis was performed concurrently and has been reported separately. Engineering Officer (topogram) images: No additional findings. IMPRESSION: Stable nodular density in the right upper lobe. No new nodules seen. Tiny nodular densities along the anterior aspect of the trachea, similar to prior study. No enlarged lymph nodes seen in the mediastinum or hilar regions. Help Desk Support: JUDITH Transcribe Date/Time: Sep 30 2023 1:14P Dictated by : LORENE HANEY MD This examination was interpreted and the report reviewed and electronically signed by: LORENE HANEY MD on Sep 30 2023 1:43PM EST [id number] N Normal [facility] Basic metabolic 2000 panelon 09-27-2023 Anion gap [Moles/Vol] 10 mmol/L Normal 9-18 [facility] Comment on above: Order Comment: Speci men Type: BLOOD SPECIMENOrdering Facility: [facility] Address: [address] [place] [address] Performed By: #### 2 4321-2 ####[facility] LABCLIA [id number] [place] [address] [place] Calcium [Mass/Vol] 8.9 mg/dL Normal 8.5-10.2 [facility] Comment on above: Order Comment: Speci men Type: BLOOD SPECIMENOrdering Facility: [facility] Address: [address] [place] [address] Performed By: #### 2 4321-2 ####[facility] LABCLIA [id number] [place] [address] [place] Chloride [Moles/Vol] 104 mmol/L Normal 97-105 [facility] Comment on above: Order Comment: Speci men Type: BLOOD SPECIMENOrdering Facility: [facility] Address: [address] [place] [address] Performed By: #### 2 4321-2 ####[facility] LABCLIA [id number] [place] [id number] [place] CO2 [Moles/Vol] 27 mmol/L Normal 22-30 [facility] Comment on above: Order Comment: Speci men Type: BLOOD SPECIMENOrdering Facility: [facility] Address: [address] [place] [address] Performed By: #### 2 4321-2 ####[facility] LABCLIA [id number] [place] [address] [place] Creatinine [Mass/Vol] 0.87 mg/dL Normal 0.58-0.96 [facility] Comment on above: Order Comment: Roc tan Type: BLOOD SPECIMENOrdering Facility: [facility] Address: [address] [place] [address] Performed By: #### 2 4321-2 ####[facility] LABIA [id number] [place] [address] [place] Creatinine and Glomerular filtration rate.predicted panel (S/P/Bld) 70 mL/min/1.73m??? Normal >=60 [facility] Comment on above: Order Comment: Roc tan Type: BLOOD SPECIMENOrdering Facility: [facility] Address: [address] [place] [address] Result Comment: Jefry mated Glomerular Filtration Rate (eGFR) is calculated using the 2020 CKD-EPI creatinine equation. This equation utilizes serum creatinine, sex, and age as parameters. The creatinine assay has traceable calibration to isotope dilution-mass spectrometry. Refer to KDIGO guidelines for clinical interpretation. In patients with unstable renal function, e.g. those with acute kidney injury, the eGFR may not accurately reflect actual GFR. Performed By: #### 2 4321-2 ####[facility] LABCLIA [id number] [place] [address] [place] Glucose [Mass/Vol] 123 mg/dL High 74-99 [facility] Comment on above: Order Comment: Roc tan Type: BLOOD SPECIMENOrdering Facility: [facility] Address: [address] [place] [address] Result Comment: The [place] [employer] (ADA) provides guidance for cutoff values for fasting glucose and random glucose. The ADA defines fasting as no caloric intake for at least 8 hours. Fasting plasma glucose results between 100 to 125 mg/dL indicate increased risk for diabetes (prediabetes). Fasting plasma glucose results greater than or equal to 126 mg/dL meet the criteria for diagnosis of diabetes. In the absence of unequivocal hyperglycemia, results should be confirmed by repeat testing. In a patient with classic symptoms of hyperglycemia or hyperglycemic crisis, random plasma glucose results greater than or equal to 200 mg/dL meet the criteria for diagnosis of diabetes. Reference: Standards of Medical Care in Diabetes 2016, [place] [employer]. Diabetes Care. 2016.39(Suppl 1). Performed By: #### 2 4321-2 ####[facility] LABCLIA [id number] [place] [address] [place] Potassium [Moles/Vol] 4.3 mmol/L Normal 3.7-5.1 [facility] Comment on above: Order Comment: Speci men Type: BLOOD SPECIMENOrdering Facility: [facility] Address: [address] [place] [address] Performed By: #### 2 4321-2 ####[facility] LABCLIA [id number] [place] [address] [place] Sodium [Moles/Vol] 141 mmol/L Normal 136-144 [facility] Comment on above: Order Comment: Speci men Type: BLOOD SPECIMENOrdering Facility: [facility] Address: [address] [place] [address] Performed By: #### 2 4321-2 ####[facility] LABCLIA [id number] [place] [address] [place] Urea nitrogen [Mass/Vol] 21 mg/dL Normal 7-21 [facility] Comment on above: Order Comment: Speci men Type: BLOOD SPECIMENOrdering Facility: [facility] Address: [address] [place] [address] Performed By: #### 2 4321-2 ####[facility] LABCLIA [id number] [place] [address] [place] CBC panel Auto (Bld)on 09-27 Erythrocyte distribution width (RBC) [Ratio] 15.4 % High 11.5-15.0 [facility] Comment on above: Order Comment: Speci men Type: BLOOD SPECIMENOrdering Facility: [facility] Address: [address] [place] [address] Performed By: #### 5 8410-2 ####[facility] LABIA [id number] [place] [address] [place] Hematocrit (Bld) [Volume fraction] 39.0 % Normal 36.0-46.0 [facility] Comment on above: Order Comment: Speci men Type: BLOOD SPECIMENOrdering Facility: [facility] Address: [address] [place] [address] Performed By: #### 5 8410-2 ####[facility] LABIA [id number] [place] [address] [place] Hemoglobin (Bld) [Mass/Vol] 11.4 g/dL Low 11.5-15.5 [facility] Comment on above: Order Comment: Speci men Type: BLOOD SPECIMENOrdering Facility: [facility] Address: [address] [place] [address] Performed By: #### 5 8410-2 ####[facility] LABIA [id number] [place] [address] [place] MCH (RBC) [Entitic mass] 24.6 pg Low 26.0-34.0 [facility] Comment on above: Order Comment: Speci men Type: BLOOD SPECIMENOrdering Facility: [facility] Address: [address] [place] [address] Performed By: #### 5 8410-2 ####[facility] LABIA [id number] [place] [address] [place] MCHC (RBC) [Mass/Vol] 29.2 g/dL Low 30.5-36.0 [facility] Comment on above: Order Comment: Speci men Type: BLOOD SPECIMENOrdering Facility: [facility] Address: [address] [place] [address] Performed By: #### 5 8410-2 ####[facility] LABIA [id number] [place] [id number] [place] MCV (RBC) [Entitic vol] 84.2 fL Normal 80.0-100.0 [facility] Comment on above: Order Comment: Speci men Type: BLOOD SPECIMENOrdering Facility: [facility] Address: [address] [place] [address] Performed By: #### 5 8410-2 ####[facility] LABCLIA [id number] [place] [address] [place] Nucleated RBC (Bld) [#/Vol] 0.04 10*3/uL High <0.01 [facility] Comment on above: Order Comment: Speci men Type: BLOOD SPECIMENOrdering Facility: [facility] Address: [address] [place] [address] Performed By: #### 5 8410-2 ####[facility] LABCLIA [id number] [place] [address] [place] Platelet mean volume (Bld) [Entitic vol] 9.6 fL Normal 9.0-12.7 [facility] Comment on above: Order Comment: Speci men Type: BLOOD SPECIMENOrdering Facility: [facility] Address: [address] [place] [address] Performed By: #### 5 8410-2 ####[facility] LABCLIA [id number] [place] [address] [place] Platelets (Bld) [#/Vol] 354 10*3/uL Normal 150-400 [facility] Comment on above: Order Comment: Speci men Type: BLOOD SPECIMENOrdering Facility: [facility] Address: [address] [place] [address] Performed By: #### 5 8410-2 ####[facility] LABCLIA [id number] [place] [address] [place] RBC (Bld) [#/Vol] 4.63 10*6/uL Normal 3.90-5.20 [facility] Comment on above: Order Comment: Speci men Type: BLOOD SPECIMENOrdering Facility: [facility] Address: [address] [place] [address] Performed By: #### 5 8410-2 ####[facility] LABCLIA [id number] [place] [id number] [place] WBC (Bld) [#/Vol] 8.17 10*3/uL Normal 3.70-11.00 [facility] Comment on above: Order Comment: Speci men Type: BLOOD SPECIMENOrdering Facility: [facility] Address: [address] [place] [address] Performed By: #### 5 8410-2 ####[facility] LABCLIA [id number] [place] [id number] [place] Culture, urineOrdered By: Everett Min on 09-02-2023 Bacteria identified Cx Nom (U) Culture exhibits no growth. [facility] Telephone (CRISTOPHER) ROSITA KENNEDY ([id number]) 1945 F Date Time Provider Department 07/26/23 DOMO FRAZIER During your visit today, we recorded the following information about you: Britni Gamble 07/26/2023 9:04 AM Signed Son called to cancel appointments for today. States patient is not sure she wants to continue treatments. Will call back to reschedule once she decides Domo Frazier DO 07/28/2023 1:28 PM Signed Noted. Thank you. DO Jesus Acharya Melissa 08/05/2023 4:08 PM Signed Daughter, Winter called stating patient does not want to continue treatment. Appointments canceled. She does want to continue having port flushed in [place] office, scheduled appointment. Allergies As of Date: 07/26/2023 Noted Allergy Reaction CODEINE 02/24/2001 Comments: hives CONTRAST DYE (IODINE) 03/24/2023 6 - Diarrhea Comments: Diarrhea after oral contrast. ERYTHROMYCIN 08/03/2014 8 - GI Upset METHYLPREDNISOLONE 08/03/2014 4 - Hives Comments: IV SULFA (SULFONAMIDE ANTIBIOTICS) 02/24/2001 Comments: hives Date Reviewed: 07/09/2023 Reviewed by: Kelley Rich RN - Fully Assessed Reason for Visit: Appointment [186] Prescriptions as of 08/05/2023 - potassium chloride (K-TAB) 10 mEq tablet Take 10 mEq by mouth two times a day. - lenvatinib (LENVIMA) 20 mg/day (10 mg x 2) capsules Take 2 capsules (20 mg) by mouth once daily. - rivaroxaban (XARELTO) 15 mg tablet Take 20 mg by mouth once daily. - ondansetron (ZOFRAN) 8 mg tablet Take 1 tablet by mouth every 6 hours as needed for nausea/vomiting. - levothyroxine (LEVOXYL) 25 mcg tablet Take 1 tablet by mouth once daily. Take on empty stomach. For Thyroid - mirtazapine (REMERON) 15 mg tablet Take 1 tablet by mouth daily at bedtime. - meloxicam (MOBIC) 15 mg tablet Take 1 tablet by mouth once daily. With food. - atorvastatin (LIPITOR) 40 mg tablet Take 1 tablet by mouth daily at bedtime. For cholesterol. - Methenamine Hippurate (HIPREX) 1 gram tablet Take 1 tablet by mouth twice daily with meals. - furosemide (LASIX) 20 mg tablet Take one tablet every day but if looses more than 10 pounds in a week then she needs to hold it. - buPROPion (WELLBUTRIN) 75 mg tablet Take it once a day in the morning. - sertraline (ZOLOFT) 25 mg tablet Take 1 tablet by mouth once daily. - sertraline (ZOLOFT) 100 mg tablet Take 1 tablet by mouth once daily. To take along with 25 mgs to make a total of 125 mgs - travoprost (TRAVATAN Z) 0.004 % ophthalmic drops Use 1 Drop in both eyes daily at bedtime. - brimonidine-timolol (COMBIGAN) 0.2-0.5 % ophthalmic solution Use 1 Drop in the right eye twice daily. Use at 9 AM and 3 PM - ondansetron orally disintegrating (ZOFRAN ODT) 4 mg disintegrating tablet Take 1 tablet by mouth every 6 hours as needed for nausea/vomiting. - phenazopyridine (PYRIDIUM, GERIDIUM) 200 mg tablet Take 1 tablet by mouth three times daily as needed. - aspirin, enteric coated (ECOTRIN LOW STRENGTH) 81 mg EC tablet Take 1 tablet by mouth once daily. - calcium carb/vitamin D3/vit K1 (VIACTIV ORAL) Take 1 tablet by mouth once daily. - L GASSERI/B BIFIDUM/B LONGUM ([facility] Front Row [facility] ORAL) Take 1 tablet by mouth once daily. - CHOLECALCIFEROL, VITAMIN D3, (VITAMIN D3 ORAL) Take by mouth once daily. - LUTEIN ORAL Take 1 tablet by mouth once daily. - MULTIVITAMIN TABLET PO Take one(1) tablet daily. 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 08/05/2015 Visual field defect, unspecified - Right Eye [H*07/06/2014 08/05/2015 Other and combined forms of senile cataract - B*07/06/2014 05/23/2019 History of uterine cancer [Z85.42] 08/08/2014 Regular astigmatism - Both Eyes [H52.229] 11/08/2014 S/P laser cataract surgery [Z98.49] 11/22/2014 Lens replaced by other means - Left Eye [Z96.1] 11/29/2014 08/05/2015 Nasal step visual field defect of right eye [H5*08/05/2015 CRVO (central retinal vein occlusion) [H34.8192]08/05/2015 Pseudophakia of both eyes [Z96.1] 08/05/2015 Primary open angle glaucoma of both eyes, moder*10/01/2016 10/14/2017 Visual field loss [H53.40] 10/01/2016 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 Normal [facility] CBC W Auto Differential pane l (Bld)on 07-09-2023 Basophils (Bld) [#/Vol] 0.07 10*3/uL Normal <0.11 [facility] Comment on above: Order Comment: Speci men Type: BLOOD SPECIMENOrdering Facility: [facility] Address: [address] [place] [address] Performed By: #### 5 7021-8 ####[facility] [id number] [place] [address] [place] Basophils/100 WBC (Bld) 0.8 % Normal C [facility] Comment on above: Order Comment: Speci men Type: BLOOD SPECIMENOrdering Facility: [facility] Address: [address] [place] [address] Performed By: #### 5 7021-8 ####[facility] [id number] [place] [address] [place] [place] Differential cell count method Nom (Bld) Auto Normal [facility] Comment on above: Order Comment: Speci men Type: BLOOD SPECIMENOrdering Facility: [facility] Address: [address] [place] [address] Performed By: #### 5 7021-8 ####[facility] [id number] [place] [address] [place] Eosinophils (Bld) [#/Vol] 0.65 10*3/uL High <0.46 [facility] Comment on above: Order Comment: Speci men Type: BLOOD SPECIMENOrdering Facility: [facility] Address: [address] [place] [address] Performed By: #### 5 7021-8 ####[facility] [id number] [place] [address] [place] Eosinophils/100 WBC (Bld) 7.1 % Normal [facility] Comment on above: Order Comment: Speci men Type: BLOOD SPECIMENOrdering Facility: [facility] Address: [address] [place] [address] Performed By: #### 5 7021-8 ####[facility] [id number] [place] [address] [place] Erythrocyte distribution width (RBC) [Ratio] 18.0 % High 11.5-15.0 [facility] Comment on above: Order Comment: Speci men Type: BLOOD SPECIMENOrdering Facility: [facility] Address: [address] [place] [address] Performed By: #### 5 7021-8 ####[facility] [id number] [place] [address] [place] Hematocrit (Bld) [Volume fraction] 39.3 % Normal 36.0-46.0 [facility] Comment on above: Order Comment: Speci men Type: BLOOD SPECIMENOrdering Facility: [facility] Address: [address] [place] [address] Performed By: #### 5 7021-8 ####[facility] [id number] [place] [address] [place] Hemoglobin (Bld) [Mass/Vol] 11.8 g/dL Normal 11.5-15.5 [facility] Comment on above: Order Comment: Speci men Type: BLOOD SPECIMENOrdering Facility: [facility] Address: [address] [place] [address] Performed By: #### 5 7021-8 ####[facility] [id number] [place] [address] [place] Immature granulocytes (Bld) [#/Vol] 0.05 10*3/uL Normal <0.10 [facility] Comment on above: Order Comment: Speci men Type: BLOOD SPECIMENOrdering Facility: [facility] Address: [address] [place] [address] Performed By: #### 5 7021-8 ####[facility] HOSPITALROSE [id number] [place] [address] [place] Immature granulocytes/100 WBC (Bld) 0.5 % Normal [facility] Comment on above: Order Comment: Speci men Type: BLOOD SPECIMENOrdering Facility: [facility] Address: [address] [place] [address] Performed By: #### 5 7021-8 ####[facility] [id number] [place] [address] [place] Lymphocytes (Bld) [#/Vol] 2.21 10*3/uL Normal 1.00-4.00 [facility] Comment on above: Order Comment: Speci men Type: BLOOD SPECIMENOrdering Facility: [facility] Address: [address] [place] [address] Performed By: #### 5 7021-8 ####[facility] [id number] [place] [address] [place] Lymphocytes/100 WBC (Bld) 24.2 % Normal [facility] Comment on above: Order Comment: Speci men Type: BLOOD SPECIMENOrdering Facility: [facility] Address: [address] [place] [address] Performed By: #### 5 7021-8 ####[facility]ITALNCLIA [id number] [place] [address] [place] MCH (RBC) [Entitic mass] 24.9 pg Low 26.0-34.0 [facility] Comment on above: Order Comment: Speci men Type: BLOOD SPECIMENOrdering Facility: [facility] Address: [address] [place] [address] Performed By: #### 5 7021-8 ####[facility] [id number] [place] [address] [place] MCHC (RBC) [Mass/Vol] 30.0 g/dL Low 30.5-36.0 [facility] Comment on above: Order Comment: Speci men Type: BLOOD SPECIMENOrdering Facility: [facility] Address: [address] [place] [address] Performed By: #### 5 7021-8 ####[facility] [id number] [place] [address] [place] MCV (RBC) [Entitic vol] 82.9 fL Normal 80.0-100.0 [facility] Comment on above: Order Comment: Speci men Type: BLOOD SPECIMENOrdering Facility: [facility] Address: [address] [place] [address] Performed By: #### 5 7021-8 ####[facility] [id number] [address] [place] Monocytes (Bld) [#/Vol] 0.73 10*3/uL Normal <0.87 [facility] Comment on above: Order Comment: Speci men Type: BLOOD SPECIMENOrdering Facility: [facility] Address: [address] [place] [address] Performed By: #### 5 7021-8 ####[facility] [id number] [place] [address] [place] Monocytes/100 WBC (Bld) 8.0 % Normal C [facility] Comment on above: Order Comment: Speci men Type: BLOOD SPECIMENOrdering Facility: [facility] Address: [address] [place] [address] Performed By: #### 5 7021-8 ####[facility] HOSPITALLIA [id number] [place] [address] [place] Neutrophils (Bld) [#/Vol] 5.43 10*3/uL Normal 1.45-7.50 [facility] Comment on above: Order Comment: Speci men Type: BLOOD SPECIMENOrdering Facility: [facility] Address: [address] [place] [address] Performed By: #### 5 7021-8 ####[facility] [id number] [place] [address] [place] Neutrophils/100 WBC (Bld) 59.4 % Normal [facility] Comment on above: Order Comment: Speci men Type: BLOOD SPECIMENOrdering Facility: [facility] Address: [address] [place] [address] Performed By: #### 5 7021-8 ####[facility] [id number] [place] [address] [place] Nucleated RBC (Bld) [#/Vol] 10*3/uL Normal <0.01 [facility] Comment on above: Order Comment: Speci men Type: BLOOD SPECIMENOrdering Facility: [facility] Address: [address] [place] [address] Performed By: #### 5 7021-8 ####[facility]ITALNCLIA [id number] [place] [address] [place] Nucleated RBC/100 WBC (Bld) [Ratio] 0.0 /100 WBC Normal [facility] Comment on above: Order Comment: Speci men Type: BLOOD SPECIMENOrdering Facility: [facility] Address: [address] [place] [address] Performed By: #### 5 7021-8 ####[facility] [id number] [place] [address] [place] Platelet mean volume (Bld) [Entitic vol] 8.9 fL Low 9.0-12.7 [facility] Comment on above: Order Comment: Speci men Type: BLOOD SPECIMENOrdering Facility: [facility] Address: [address] [place] [address] Performed By: #### 5 7021-8 ####[facility]ITALLYDIAGLORIA [id number] [place] [address] [place] Platelets (Bld) [#/Vol] 462 10*3/uL High 150-400 [facility] Comment on above: Order Comment: Speci men Type: BLOOD SPECIMENOrdering Facility: [facility] Address: [address] [place] [address] Performed By: #### 5 7021-8 ####[facility]ITALNCLIA [id number] [place] [address] [place] RBC (Bld) [#/Vol] 4.74 10*6/uL Normal 3.90-5.20 [facility] Comment on above: Order Comment: Speci men Type: BLOOD SPECIMENOrdering Facility: [facility] Address: [address] [place] [address] Performed By: #### 5 7021-8 ####[facility]ITALNCLIA [id number] [place] [address] [place] WBC (Bld) [#/Vol] 9.14 10*3/uL Normal 3.70-11.00 [facility] Comment on above: Order Comment: Speci men Type: BLOOD SPECIMENOrdering Facility: [facility] Address: [address] [place] [address] Performed By: #### 5 7021-8 ####[facility]ST[facility] MILLTOWNCLIA [id number] [place] [address] [place] Comprehensive metabolic 2000 panelon 07-09-2023 Albumin [Mass/Vol] 4.1 g/dL Normal 3.9-4.9 [facility] Comment on above: Order Comment: Speci men Type: BLOOD SPECIMENOrdering Facility: [facility] Address: [address] [place] [address] Performed By: #### 2 4323-8 ####[facility] CRYSTAL MILLTOWNCLIA [id number] [place] [address] [place] ALP [Catalytic activity/Vol] 114 U/L Normal 34-123 [facility] Comment on above: Order Comment: Speci men Type: BLOOD SPECIMENOrdering Facility: [facility] Address: [address] [place] [address] Performed By: #### 2 4323-8 ####[facility] HOSPITALLIA [id number] [place] [address] [place] ALT [Catalytic activity/Vol] 12 U/L Normal 7-38 [facility] Comment on above: Order Comment: Speci men Type: BLOOD SPECIMENOrdering Facility: [facility] Address: [address] [place] [address] Performed By: #### 2 4323-8 ####[facility] MILLTOWNCLIA [id number] [place] [address] [place] Anion gap [Moles/Vol] 13 mmol/L Normal 9-18 [facility] Comment on above: Order Comment: Speci men Type: BLOOD SPECIMENOrdering Facility: [facility] Address: [address] [place] [address] Performed By: #### 2 4323-8 ####[facility]ITALWNCLIA [id number] [place] [address] [place] AST [Catalytic activity/Vol] 23 U/L Normal 13-35 [facility] Comment on above: Order Comment: Speci men Type: BLOOD SPECIMENOrdering Facility: [facility] Address: [address] [place] [address] Performed By: #### 2 4323-8 ####[facility]ITALNCLIA [id number] [place] [address] [place] Bilirubin [Mass/Vol] 0.3 mg/dL Normal 0.2-1.3 [facility] Comment on above: Order Comment: Speci men Type: BLOOD SPECIMENOrdering Facility: [facility] Address: [address] [place] [address] Performed By: #### 2 4323-8 ####[facility] [id number] [place] [address] [place] Calcium [Mass/Vol] 9.0 mg/dL Normal 8.5-10.2 [facility] Comment on above: Order Comment: Speci men Type: BLOOD SPECIMENOrdering Facility: [facility] Address: [address] [place] [address] Performed By: #### 2 4323-8 ####[facility] [id number] [place] [address] [place] Chloride [Moles/Vol] 102 mmol/L Normal 97-105 [facility] Comment on above: Order Comment: Speci men Type: BLOOD SPECIMENOrdering Facility: [facility] Address: [address] [place] [address] Performed By: #### 2 4323-8 ####[facility] [id number] [place] [address] [place] CO2 [Moles/Vol] 24 mmol/L Normal 22-30 [facility] Comment on above: Order Comment: Speci men Type: BLOOD SPECIMENOrdering Facility: [facility] Address: [address] [place] [address] Performed By: #### 2 4323-8 ####[facility]NC[facility] [id number] [place] [address] [place] Creatinine [Mass/Vol] 0.74 mg/dL Normal 0.58-0.96 [facility] Comment on above: Order Comment: Speci men Type: BLOOD SPECIMENOrdering Facility: [facility] Address: [address] [place] [address] Performed By: #### 2 4323-8 ####[facility] HOSPITALNCLI [id number] [place] [address] [place] Creatinine and Glomerular filtration rate.predicted panel (S/P/Bld) 84 mL/min/1.73m??? Normal >=60 [facility] Comment on above: Order Comment: Estell[place] men Type: BLOOD SPECIMENOrdering Facility: [facility] Address: [address] [place] [address] Result Comment: Jefry mated Glomerular Filtration Rate (eGFR) is calculated using the 2020 CKD-EPI creatinine equation. This equation utilizes serum creatinine, sex, and age as parameters. The creatinine assay has traceable calibration to isotope dilution-mass spectrometry. Refer to KDIGO guidelines for clinical interpretation. In patients with unstable renal function, e.g. those with acute kidney injury, the eGFR may not accurately reflect actual GFR. Performed By: #### 2 4323-8 ####[facility]ITALNCLIA [id number] [place] [address] [place] Glucose [Mass/Vol] 113 mg/dL High 74-99 [facility] Comment on above: Order Comment: Speci men Type: BLOOD SPECIMENOrdering Facility: [facility] Address: [place] [address] Result Comment: The [place] Diabetes Association (ADA) provides guidance for cutoff values for fasting glucose and random glucose. The ADA defines fasting as no caloric intake for at least 8 hours. Fasting plasma glucose results between 100 to 125 mg/dL indicate increased risk for diabetes (prediabetes). Fasting plasma glucose results greater than or equal to 126 mg/dL meet the criteria for diagnosis of diabetes. In the absence of unequivocal hyperglycemia, results should be confirmed by repeat testing. In a patient with classic symptoms of hyperglycemia or hyperglycemic crisis, random plasma glucose results greater than or equal to 200 mg/dL meet the criteria for diagnosis of diabetes. Reference: Standards of Medical Care in Diabetes 2016, [place] [employer]. Diabetes Care. 2016.39(Suppl 1). Performed By: #### 2 4323-8 ####[facility] CRYSTAL MILLTOWNCLIA [id number] [place] [address] [place] Potassium [Moles/Vol] 3.9 mmol/L Normal 3.7-5.1 [facility] Comment on above: Order Comment: Speci men Type: BLOOD SPECIMENOrdering Facility: [facility] Address: [address] [place] [address] Performed By: #### 2 4323-8 ####[facility] HOSPITALWNYLIA [id number] [place] [address] [place] Protein [Mass/Vol] 7.3 g/dL Normal 6.3-8.0 [facility] Comment on above: Order Comment: Estellai men Type: BLOOD SPECIMENOrdering Facility: [facility] Address: [address] [place] [address] Performed By: #### 2 4323-8 ####[facility] HOSPITALWNYLIA [id number] [place] [address] [place] Sodium [Moles/Vol] 139 mmol/L Normal 136-144 [facility] Comment on above: Order Comment: Speci men Type: BLOOD SPECIMENOrdering Facility: [facility] Address: [address] [place] [address] Performed By: #### 2 4323-8 ####[facility]ITALWNCLIA [id number] [place] [address] [place] Urea nitrogen [Mass/Vol] 25 mg/dL High 7-21 [facility] Comment on above: Order Comment: Speci men Type: BLOOD SPECIMENOrdering Facility: [facility] Address: [place] [address] Performed By: #### 2 4323-8 ####[facility] CRYSTAL ARAGONTOWNYLIA [id number] [place] [address] [place] Cortis SerPl-mCncon 07-09-20 23 Cortisol [Mass/Vol] 21.4 ug/dL High 4.8-19.5 [facility] Comment on above: Order Comment: Speci men Type: BLOOD SPECIMENOrdering Facility: [facility] Address: [place] [address] Result Comment: Prov ided reference range is from 6-10 AM sample collection time. Cortisol Reference Range: 6-10 AM = 4.8-19.5 ug/dL, 4-8 PM = 2.5-11.9 ug/dL Performed By: #### 2 143-6, 3024-7, 3016-3 ####[facility] LABCLIA [id number] [place] [address] [place] T4 Free SerPl-mCncon 023 Free T4 [Mass/Vol] 1.0 ng/dL Normal 0.9-1.7 [facility] Comment on above: Order Comment: Speci men Type: BLOOD SPECIMENOrdering Facility: [facility] Address: [place] [address] Performed By: #### 2 143-6, 3024-7, 3016-3 ####[facility] LABCLIA [id number] [place] [address] [place] TSH SerPl-aCncon 07-09-2023 TSH Qn 5.640 m[IU]/L High 0.270-4.200 [facility] Comment on above: Order Comment: Speci men Type: BLOOD SPECIMENOrdering Facility: [facility] Address: [place] [address] Performed By: #### 2 143-6, 3024-7, 3016-3 ####[facility] LABCLIA [id number] [facility] [id number] STATES OF [facility] Absolute lymphocyte countOrd ered By: Bernardino Min on 07-07-2023 Lymphocytes Auto (Unsp spec) [#/Vol] 1.14 10*3/uL 0.83-4.51 [facility] Basophil percentageOrdered B y: Bernardino Min on 07-07-2023 Basophils/100 WBC (Bld) 0.7 % 0-1 [facility] Chloride [Moles/Vol] 105 mmol/L 98-107 [facility] Eosinophils/100 WBC (Bld) 7.7 % 0-5 [facility] Glucose [Mass/Vol] 104 mg/dL 74-106 [facility] Comment on above: Fasting Glucose resu lt from 100 to 125 mg/dL suggests IMPAIRED HOMEOSTASIS per A.D.A. criteria. Neutrophils (Bld) [#/Vol] 3.5 10*3/uL 2.0-7.7 [facility] Neutrophils/100 WBC (Bld) 60.0 % 47-70 [facility] Potassium [Moles/Vol] 4.2 mmol/L 3.5-5.1 [facility] Sodium [Moles/Vol] 137 mmol/L 136-145 [facility] WBC (Bld) [#/Vol] 5.8 10*3/uL 4.4-11.0 [facility] Blood erythrocytes count (nu mber/volume)Ordered By: Bernardino Min on 07-07-2023 RBC (Bld) [#/Vol] 4.39 10*6/uL 4.2-5.4 [facility] Blood hemoglobin measurement (mass/volume)Ordered By: Bernardino Min on 07-07-2023 Hemoglobin (Bld) [Mass/Vol] 11.0 g/dL 12.0-15.0 [facility] Blood lymphocytes/100 leukoc ytesOrdered By: Bernardino Min on 07-07-2023 Lymphocytes/100 WBC (Bld) 19.6 % 19-41 [facility] Blood monocytes/100 leukocyt esOrdered By: Bernardino Min on 07-07-2023 Monocytes/100 WBC (Bld) 11.1 % 0-10 [facility] Blood platelet mean volumeOr dered By: Bernardino Min on 07-07-2023 Platelet mean volume (Bld) [Entitic vol] 9.2 fL 6.2-12.0 [facility] Determination of erythrocyte mean corpuscular volume (MCV)Ordered By: Bernardino Min on 07-07-2023 MCV (RBC) [Entitic vol] 85.9 fL 81-99 [facility] Hematocrit Auto (Bld) [Volum e fraction]Ordered By: Bernardino Min on 07-07-2023 Hematocrit (Bld) [Volume fraction] 37.7 % 37-47 [facility] Laboratory - Chemistry and C hemistry - challengeOrdered By: [facility] 07-07-2023 CO2 [Moles/Vol] 29.0 mmol/L 21.0-32.0 [facility] Urea nitrogen/Creatinine [Mass ratio] 33.5 mg/mg 10-20 [facility] Laboratory - Hematology and Cell countsOrdered By: Bernardino Min 07-07-2023 Erythrocyte distribution width (RBC) [Entitic vol] 55.6 fL 35.1-43.9 [facility] Erythrocyte distribution width (RBC) [Ratio] 17.9 % 11.6-14.6 [facility] Immature granulocytes/100 WBC (Bld) 0.900 % 0.0-0.9 [facility] Comment on above: IG% - Immature Granu locytes (promyelocytes, myelocytes and metamyelocytes) > 1% indicates that a LEFT SHIFT is Present. MCH (RBC) [Entitic mass] 25.1 pg 27.0-32.0 [facility] Nucleated RBC/100 WBC (Bld) [Ratio] 0 % 0-5 [facility] MCHC Auto (RBC) [Mass/Vol]Or dered By: Bernardino Min on 07-07-2023 MCHC (RBC) [Mass/Vol] 29.2 g/dL 32-36 [facility] No Panel InformationOrdered By: Bernardino Min on 07-07-2023 Estimated Creatinine Clearance Calc 34.91 ml/min [facility] Estimated GFR (MDRD) Amer 97 mL/min >60 [facility] Comment on above: GFR Calc Estimated GFR (MDRD) Non-Af Amer 80 mL/min >60 [facility] Comment on above: Non- GFR Calc Platelets bldOrdered By: Bernardino Min on 07-07-2023 Platelets (Bld) [#/Vol] 406 10*3/uL 150-450 [facility] Serum or plasma calcium felipe urement (mass/volume)Ordered By: Bernardino Min on 07-07-2023 Calcium [Mass/Vol] 8.9 mg/dL 8.5-10.1 [facility] Serum or plasma creatinine m easurement (mass/volume)Ordered By: Bernardino Min on 07-07-2023 Creatinine [Mass/Vol] 0.75 mg/dL 0.55-1.02 [facility] Comment on above: The validity of the calculated GFR & GFRAA in patients over 70 years has not been determined. Clinical correlation is essential. Serum or plasma urea nitroge n measurement (mass/volume)Ordered By: Bernardino Min on 07-07-2023 Urea nitrogen [Mass/Vol] 25 mg/dL 7-18 [facility] Thin prep Papanicolaou smear with manual screeningOrdered By: Bernardino Min on 07-07-2023 Thin prep Papanicolaou smear with manual screening 3 5-15 [facility] Basophil percentageOrdered B y: Bernardino Min on 07-04-2023 Basophil percentage 0 SEEN /hpf 0-5 [facility] Bilirubin Test strip Ql (U)O rdered By: Bernardino Min on 07-04-2023 Bilirubin Ql (U) Negative Negative [facility] COVID-19 virus antigen assay Ordered By: Bernardino Min on 07-04-2023 SARS-CoV-2 (COVID-19) Ag IA.rapid Ql (Resp) [facility] Culture, urineOrdered By: Everett Min on 07-04-2023 Bacteria identified Cx Nom (U) Positive [facility] Ketones Test strip Ql (U)Ord ered By: Bernardino Min on 07-04-2023 Ketones Ql (U) Negative Negative [facility] Mucus LM Ql (Urine sed)Order ed By: Bernardino Min on 07-04-2023 Mucus Ql (Urine sed) 0 SEEN /hpf [facility] Nitrite Test strip Ql (U)Ord ered By: Bernardino Min on 07-04-2023 Nitrite Ql (U) Negative Negative [facility] Protein Test strip Ql (U)Ord ered By: Bernardino Min on 07-04-2023 Protein Ql (U) 30 mg/dl Negative [facility] Squamous epithelial cells de tection in urine sediment by light microscopyOrdered By: Bernardino Min on 07-04-2023 Epithelial cells.squamous LM Ql (Urine sed) 0-5 SEEN /hpf 5-10 [facility] Urine blood detectionOrdered By: Bernardino Min on 07-04-2023 RBC Ql (U) 150 /ul Negative [facility] RBC Ql (U) 10-25 SEEN /hpf 0-5 [facility] Urine clarityOrdered By: Bernardino Min on 07-04-2023 Clarity (U) Clear Clear [facility] Urine color determinationOrd ered By: Bernardino Min on 07-04-2023 Color (U) Yellow Yellow [facility] [facility] Urine glucose detectionOrder ed By: Bernardino Min on 07-04-2023 Glucose Ql (U) Normal mg/dl Normal [facility] Urine leukocyte esterase det ection by dipstickOrdered By: Bernardino Min on 07-04-2023 Leukocyte esterase Test strip Ql (U) Negative Negative [facility] Urine pHOrdered By: Bernardino Min on 07-04-2023 pH (U) 6.0 [pH] 5.0 - 8.0 [facility] Urine sediment bacteria coun t by microscopy (number/high power field)Ordered By: Bernardino Min on 07-04-2023 Bacteria LM.HPF (Urine sed) [#/Area] 0 /[HPF] None Seen [facility] Urine specific gravity measu rementOrdered By: Bernardino Min on 07-04-2023 Specific gravity (U) [Rel density] 1.010 1.002-1.030 [facility] Urobilinogen Auto test strip Ql (U)Ordered By: Bernardino Min on 07-04-2023 Urobilinogen Ql (U) Normal mg/dl Normal [facility] Basophil percentageOrdered B y: Jason Arteaga on 06-28-2023 Basophil percentage 0-5 SEEN /hpf 0-5 [facility] Bilirubin Test strip Ql (U)O rdered By: Jason Arteaga on 06-28-2023 Bilirubin Ql (U) Negative Negative [facility] Culture, urineOrdered By: Lupe Arteaga on 06-28-2023 Bacteria identified Cx Nom (U) Culture exhibits no growth. [facility] Ketones Test strip Ql (U)Ord ered By: Jason Arteaga on 06-28-2023 Ketones Ql (U) Negative Negative [facility] Mucus LM Ql (Urine sed)Order ed By: Jason Arteaga on 06-28-2023 Mucus Ql (Urine sed) 0 SEEN /hpf [facility] Nitrite Test strip Ql (U)Ord ered By: Jason Arteaga on 06-28-2023 Nitrite Ql (U) Negative Negative [facility] Protein Test strip Ql (U)Ord ered By: Jason Arteaga on 06-28-2023 Protein Ql (U) Negative Negative [facility] Squamous epithelial cells de tection in urine sediment by light microscopyOrdered By: Jason Arteaga on 06-28-2023 Epithelial cells.squamous LM Ql (Urine sed) 0 SEEN /hpf 5-10 [facility] Urine blood detectionOrdered By: Jason Arteaga on 06-28-2023 RBC Ql (U) Negative Negative [facility] RBC Ql (U) 0 SEEN /hpf 0-5 [facility] Urine clarityOrdered By: Daniel Arteaga on 06-28-2023 Clarity (U) Clear Clear [facility] Urine color determinationOrd ered By: Jason Arteaga on 06-28-2023 Color (U) Yellow Yellow [facility] Urine glucose detectionOrder ed By: Jason Arteaga on 06-28-2023 Glucose Ql (U) Normal mg/dl Normal [facility] Urine leukocyte esterase det ection by dipstickOrdered By: Jason Arteaga on 06-28-2023 Leukocyte esterase Test strip Ql (U) Negative Negative [facility] Urine pHOrdered By: Jason thorpe on 06-28-2023 pH (U) 7.0 [pH] 5.0 - 8.0 [facility] Urine sediment bacteria coun t by microscopy (number/high power field)Ordered By: Jason Arteaga on 06-28-2023 Bacteria LM.HPF (Urine sed) [#/Area] 0 /[HPF] None Seen [facility] Urine specific gravity measu rementOrdered By: Jason Arteaga on 06-28-2023 Specific gravity (U) [Rel density] 1.010 1.002-1.030 [facility] Urobilinogen Auto test strip Ql (U)Ordered By: Jason Arteaga on 06-28-2023 Urobilinogen Ql (U) Normal mg/dl Normal [facility] Absolute lymphocyte countOrd ered By: [facility] on 06-27-2023 Lymphocytes Auto (Unsp spec) [#/Vol] 1.10 10*3/uL 0.83-4.51 [facility] Basophil percentageOrdered B y: Jason Arteaga on 06-27-2023 Basophils/100 WBC (Bld) 0.5 % 0-1 [facility] Chloride [Moles/Vol] 109 mmol/L 98-107 [facility] Eosinophils/100 WBC (Bld) 3.2 % 0-5 [facility] Glucose [Mass/Vol] 115 mg/dL 74-106 [facility] Comment on above: Fasting Glucose resu lt from 100 to 125 mg/dL suggests IMPAIRED HOMEOSTASIS per A.D.A. criteria. Neutrophils (Bld) [#/Vol] 4.3 10*3/uL 2.0-7.7 [facility] Neutrophils/100 WBC (Bld) 69.1 % 47-70 [facility] Potassium [Moles/Vol] 3.6 mmol/L 3.5-5.1 [facility] Sodium [Moles/Vol] 141 mmol/L 136-145 [facility] WBC (Bld) [#/Vol] 6.3 10*3/uL 4.4-11.0 [facility] Blood erythrocytes count (nu mber/volume)Ordered By: Jason Arteaga on 06-27-2023 RBC (Bld) [#/Vol] 4.08 10*6/uL 4.2-5.4 [facility] Blood hemoglobin measurement (mass/volume)Ordered By: Jason Arteaga on 06-27-2023 Hemoglobin (Bld) [Mass/Vol] 10.0 g/dL 12.0-15.0 [facility] Blood lymphocytes/100 leukoc ytesOrdered By: Jason Arteaga on 06-27-2023 Lymphocytes/100 WBC (Bld) 17.6 % 19-41 [facility] Blood monocytes/100 leukocyt esOrdered By: Jason Arteaga on 06-27-2023 Monocytes/100 WBC (Bld) 9.3 % 0-10 [facility] Blood platelet mean volumeOr dered By: Jason Arteaga on 06-27-2023 Platelet mean volume (Bld) [Entitic vol] 9.2 fL 6.2-12.0 [facility] Determination of erythrocyte mean corpuscular volume (MCV)Ordered By: Jason Arteaga on 06-27-2023 MCV (RBC) [Entitic vol] 83.1 fL 81-99 [facility] Hematocrit Auto (Bld) [Volum e fraction]Ordered By: Jason Arteaga on 06-27-2023 Hematocrit (Bld) [Volume fraction] 33.9 % 37-47 [facility] Laboratory - Chemistry and C hemistry - challengeOrdered By: Jason Arteaga on 06-27-2023 CO2 [Moles/Vol] 27.0 mmol/L 21.0-32.0 [facility] Urea nitrogen/Creatinine [Mass ratio] 34.8 mg/mg 10-20 [facility] Laboratory - Hematology and Cell countsOrdered By: Jason Arteaga on 06-27-2023 Erythrocyte distribution width (RBC) [Entitic vol] 49.7 fL 35.1-43.9 [facility] Erythrocyte distribution width (RBC) [Ratio] 17.0 % 11.6-14.6 [facility] Immature granulocytes/100 WBC (Bld) 0.300 % 0.0-0.9 [facility] Comment on above: IG% - Immature Granu locytes (promyelocytes, myelocytes and metamyelocytes) > 1% indicates that a LEFT SHIFT is Present. MCH (RBC) [Entitic mass] 24.5 pg 27.0-32.0 [facility] Nucleated RBC/100 WBC (Bld) [Ratio] 0 % 0-5 [facility] ([facility] [Mass/Vol]Or dered By: Jason Arteaga on 06-27-2023 MCHC (RBC) [Mass/Vol] 29.5 g/dL 32-36 [facility] No Panel InformationOrdered By: Jason Arteaga on 06-27-2023 Estimated Creatinine Clearance Calc 34.91 ml/min [facility] Estimated GFR (MDRD) Amer 112 mL/min >60 [facility] Comment on above: GFR Calc Estimated GFR (MDRD) Non-Af Amer 93 mL/min >60 [facility] Comment on above: Non- GFR Calc Thyroid Stimulating Hormone (TSH) 3.08 uIU/mL 0.358-3.74 [facility] Vitamin D 25-Hydroxy 45.7 ng/mL [facility] Comment on above: Vitamin D 25(OH) Sta tus Range Deficiency <20 ng/mL (50nmol/L) Insufficiency 20 - 30 ng/mL (50 - 75 nmol/L) Sufficiency 30 - 100 ng/mL (75 - 250 nmol/L) Toxicity >100 ng/mL (>250 nmol/L) Platelets bldOrdered By: Daniel Arteaga on 06-27-2023 Platelets (Bld) [#/Vol] 362 10*3/uL 150-450 [facility] Serum or plasma calcium felipe urement (mass/volume)Ordered By: Jaosn Arteaga on 06-27-2023 Calcium [Mass/Vol] 7.9 mg/dL 8.5-10.1 [facility] Serum or plasma creatinine m easurement (mass/volume)Ordered By: Jason Arteaga on 06-27-2023 Creatinine [Mass/Vol] 0.66 mg/dL 0.55-1.02 [facility] Comment on above: The validity of the calculated GFR & GFRAA in patients over 70 years has not been determined. Clinical correlation is essential. Serum or plasma urea nitroge n measurement (mass/volume)Ordered By: Jason Arteaga on 06-27-2023 Urea nitrogen [Mass/Vol] 23 mg/dL 7-18 [facility] Thin prep Papanicolaou smear with manual screeningOrdered By: Jason Arteaga on 06-27-2023 Thin prep Papanicolaou smear with manual screening 5 5-15 [facility] Absolute lymphocyte countOrd ered By: Ju López on 06-26-2023 Lymphocytes Auto (Unsp spec) [#/Vol] 1.23 10*3/uL 0.83-4.51 [facility] Basophil percentageOrdered B y: Ju López on 06-26-2023 Basophil percentage 0-5 SEEN /hpf 0-5 [facility] Basophils/100 WBC (Bld) 0.4 % 0-1 [facility] Bilirubin [Mass/Vol] 0.40 mg/dL 0.20-1.00 [facility] Comment on above: For patients on eltr ombopag therapy, use of Dimension [place] TBIL is not recommended. Chloride [Moles/Vol] 105 mmol/L 98-107 [facility] Eosinophils/100 WBC (Bld) 3.1 % 0-5 [facility] Glucose [Mass/Vol] 120 mg/dL 74-106 [facility] Comment on above: Fasting Glucose resu lt from 100 to 125 mg/dL suggests IMPAIRED HOMEOSTASIS per A.D.A. criteria. Neutrophils (Bld) [#/Vol] 5.8 10*3/uL 2.0-7.7 [facility] Neutrophils/100 WBC (Bld) 71.7 % 47-70 [facility] Potassium [Moles/Vol] 3.5 mmol/L 3.5-5.1 [facility] Protein [Mass/Vol] 6.8 g/dL 6.4-8.2 [facility] Sodium [Moles/Vol] 140 mmol/L 136-145 [facility] WBC (Bld) [#/Vol] 8.1 10*3/uL 4.4-11.0 [facility] Bilirubin Test strip Ql (U)O rdered By: Ju López on 06-26-2023 Bilirubin Ql (U) Negative Negative [facility] Blood erythrocytes count (nu mber/volume)Ordered By: Ju López on 06-26-2023 RBC (Bld) [#/Vol] 4.31 10*6/uL 4.2-5.4 [facility] Blood hemoglobin measurement (mass/volume)Ordered By: Ju López on 06-26-2023 Hemoglobin (Bld) [Mass/Vol] 10.8 g/dL 12.0-15.0 [facility] Blood lymphocytes/100 leukoc ytesOrdered By: Ju López on 06-26-2023 Lymphocytes/100 WBC (Bld) 15.3 % 19-41 [facility] Blood monocytes/100 leukocyt esOrdered By: Ju López on 06-26-2023 Monocytes/100 WBC (Bld) 9.1 % 0-10 [facility] Blood platelet mean volumeOr dered By: Ju López on 06-26-2023 Platelet mean volume (Bld) [Entitic vol] 9.0 fL 6.2-12.0 [facility] Determination of erythrocyte mean corpuscular volume (MCV)Ordered By: Ju López on 06-26-2023 MCV (RBC) [Entitic vol] 83.3 fL 81-99 [facility] Hematocrit Auto (Bld) [Volum e fraction]Ordered By: Ju López on 06-26-2023 Hematocrit (Bld) [Volume fraction] 35.9 % 37-47 [facility] Influenza virus A and B and SARS-CoV-2 (COVID-19) Ag panel - Upper respiratory specimOrdered By: Ju López on 06-26-2023 SARS-CoV-2 (COVID-19) RNA NURYS+probe Ql (Resp) [facility] SARS-CoV-2 (COVID-19) RNA NURYS+probe Ql (Resp) [facility] Ketones Test strip Ql (U)Ord ered By: Ju López on 06-26-2023 Ketones Ql (U) Negative Negative [facility] Laboratory - Chemistry and C hemistry - challengeOrdered By: [facility] L[facility] on 06-26-2023 ALP [Catalytic activity/Vol] 104 U/L 45-117 [facility] ALT [Catalytic activity/Vol] 13 U/L 13-56 [facility] CO2 [Moles/Vol] 28.0 mmol/L 21.0-32.0 [facility] Globulin (S) [Mass/Vol] 3.9 g/dL 2.2-4.2 [facility] Urea nitrogen/Creatinine [Mass ratio] 35.5 mg/mg 10-20 [facility] Laboratory - Hematology and Cell countsOrdered By: Ju López on 06-26-2023 Erythrocyte distribution width (RBC) [Entitic vol] 49.3 fL 35.1-43.9 [facility] Erythrocyte distribution width (RBC) [Ratio] 16.8 % 11.6-14.6 [facility] Immature granulocytes/100 WBC (Bld) 0.400 % 0.0-0.9 [facility] Comment on above: IG% - Immature Granu locytes (promyelocytes, myelocytes and metamyelocytes) > 1% indicates that a LEFT SHIFT is Present. MCH (RBC) [Entitic mass] 25.1 pg 27.0-32.0 [facility] Nucleated RBC/100 WBC (Bld) [Ratio] 0 % 0-5 [facility] MCHC Auto (RBC) [Mass/Vol]Or dered By: Ju López on 06-26-2023 MCHC (RBC) [Mass/Vol] 30.1 g/dL 32-36 [facility] Mucus LM Ql (Urine sed)Order ed By: Ju López on 06-26-2023 Mucus Ql (Urine sed) 0 SEEN /hpf [facility] Nitrite Test strip Ql (U)Ord ered By: Ju López on 06-26-2023 Nitrite Ql (U) Negative Negative [facility] No Panel InformationOrdered By: Ju López on 06-26-2023 Estimated Creatinine Clearance Calc 42.58 ml/min [facility] Estimated GFR (MDRD) Amer 88 mL/min >60 [facility] Comment on above: GFR Calc Estimated GFR (MDRD) Non-Af Amer 72 mL/min >60 [facility] Comment on above: Non- GFR Calc Troponin I High Sensitivity 8 pg/mL 3.0-54.0 [facility] Comment on above: Please Note: [place] t Units and Gender Specific Reference Ranges. For more information see Policy Stat Procedure [place] High Sensitivity Troponin (TNIH) and attachments. Platelets bldOrdered By: Cesilia López on 06-26-2023 Platelets (Bld) [#/Vol] 397 10*3/uL 150-450 [facility] Protein Test strip Ql (U)Ord ered By: Ju Maribel on 06-26-2023 Protein Ql (U) 30 mg/dl Negative [facility] Serum or plasma albumin felipe urement (mass/volume)Ordered By: Rem Ungrubi on 06-26-2023 Albumin [Mass/Vol] 2.9 g/dL 3.2-5.0 [facility] Serum or plasma albumin/glob ulin mass ratioOrdered By: Remus Ungrubi on 06-26-2023 Albumin/Globulin [Mass ratio] 0.7 {ratio} 0.9-2.4 [facility] Serum or plasma calcium felipe urement (mass/volume)Ordered By: Rem Ungrubi on 06-26-2023 Calcium [Mass/Vol] 8.1 mg/dL 8.5-10.1 [facility] Serum or plasma creatinine m easurement (mass/volume)Ordered By: Remus López on 06-26-2023 Creatinine [Mass/Vol] 0.82 mg/dL 0.55-1.02 [facility] Comment on above: The validity of the calculated GFR & GFRAA in patients over 70 years has not been determined. Clinical correlation is essential. Serum or plasma urea nitroge n measurement (mass/volume)Ordered By: Ju Maribel on 06-26-2023 Urea nitrogen [Mass/Vol] 29 mg/dL 7-18 [facility] Squamous epithelial cells de tection in urine sediment by light microscopyOrdered By: Remus López on 06-26-2023 Epithelial cells.squamous LM Ql (Urine sed) 0-5 SEEN /hpf 5-10 [facility] Thin prep Papanicolaou smear with manual screeningOrdered By: Remus Ungrubi on 06-26-2023 Thin prep Papanicolaou smear with manual screening 18 U/L 15-37 [facility] Thin prep Papanicolaou smear with manual screening 7 5-15 [facility] Urine blood detectionOrdered By: Remus Ungrubi on 06-26-2023 RBC Ql (U) 25 /ul Negative [facility] RBC Ql (U) 0 SEEN /hpf 0-5 [facility] Urine clarityOrdered By: Rem us Ungrubi on 06-26-2023 Clarity (U) Clear Clear [facility] Urine color determinationOrd ered By: Ju López on 06-26-2023 Color (U) Yellow Yellow [facility] Urine glucose detectionOrder ed By: Ju López on 06-26-2023 Glucose Ql (U) Normal mg/dl Normal [facility] Urine leukocyte esterase det ection by dipstickOrdered By: Ju López on 06-26-2023 Leukocyte esterase Test strip Ql (U) 25 /ul Negative [facility] Urine pHOrdered By: Ju Un gur on 06-26-2023 pH (U) 6.0 [pH] 5.0 - 8.0 [facility] Urine sediment bacteria coun t by microscopy (number/high power field)Ordered By: Ju López on 06-26-2023 Bacteria LM.HPF (Urine sed) [#/Area] 0 /[HPF] None Seen [facility] Urine specific gravity measu rementOrdered By: Ju López on 06-26-2023 Specific gravity (U) [Rel density] 1.015 1.002-1.030 [facility] Urobilinogen Auto test strip Ql (U)Ordered By: Ju López on 06-26-2023 Urobilinogen Ql (U) Normal mg/dl Normal [facility] CBC W Auto Differential pane l (Bld)on 06-25-2023 Basophils (Bld) [#/Vol] 0.04 10*3/uL <0.11 k/uL [facility] Basophils/100 WBC (Bld) 0.5 % [facility] Differential cell count method Nom (Bld) Auto [facility] Eosinophils (Bld) [#/Vol] 0.19 10*3/uL <0.46 k/uL [facility] Eosinophils/100 WBC (Bld) 2.2 % [facility] Erythrocyte distribution width (RBC) [Ratio] 16.3 % High 11.5 - 15.0 % [facility] Hematocrit (Bld) [Volume fraction] 39.0 % 36.0 - 46.0 % [facility] Hemoglobin (Bld) [Mass/Vol] 12.0 g/dL 11.5 - 15.5 g/dL [facility] Immature granulocytes (Bld) [#/Vol] 0.03 10*3/uL <0.10 k/uL [facility] Immature granulocytes/100 WBC (Bld) 0.3 % [facility] Lymphocytes (Bld) [#/Vol] 1.18 10*3/uL 1.00 - 4.00 k/uL [facility] Lymphocytes/100 WBC (Bld) 13.5 % [facility] MCH (RBC) [Entitic mass] 24.4 pg Low 26.0 - 34.0 pg [facility] MCHC (RBC) [Mass/Vol] 30.8 g/dL 30.5 - 36.0 g/dL [facility] MCV (RBC) [Entitic vol] 79.3 fL Low 80.0 - 100.0 fL [facility] Monocytes (Bld) [#/Vol] 0.72 10*3/uL <0.87 k/uL [facility] Monocytes/100 WBC (Bld) 8.2 % [facility] Neutrophils (Bld) [#/Vol] 6.60 10*3/uL 1.45 - 7.50 k/uL [facility] Neutrophils/100 WBC (Bld) 75.3 % [facility] Nucleated RBC (Bld) [#/Vol] <0.01 k/uL [facility] Nucleated RBC/100 WBC (Bld) [Ratio] 0.0 /100 WBC [facility] Platelet mean volume (Bld) [Entitic vol] 9.2 fL 9.0 - 12.7 fL [facility] Platelets (Bld) [#/Vol] 433 10*3/uL High 150 - 400 k /uL [facility] RBC (Bld) [#/Vol] 4.92 10*6/uL 3.90 - 5.2 0 m/uL [facility] WBC (Bld) [#/Vol] 8.76 10*3/uL 3.70 - 11. 00 k/uL [facility] Basophils (Bld) [#/Vol] 0.04 10*3/uL Normal <0.11 [facility] Comment on above: Order Comment: Speci men Type: BLOOD SPECIMENOrdering Facility: [facility] Address: [address] [place] [address] Performed By: #### 5 7021-8 ####[facility] CRYSTAL ARAGONCLAYSVILLEJULIO [id number] [place] [address] [place] Basophils/100 WBC (Bld) 0.5 % Normal [facility] Comment on above: Order Comment: Speci men Type: BLOOD SPECIMENOrdering Facility: [facility] Address: [address] [place] [address] Performed By: #### 5 7021-8 ####[facility] [id number] [place] [address] [place] Differential cell count method Nom (Bld) Auto Normal [facility] Comment on above: Order Comment: Speci men Type: BLOOD SPECIMENOrdering Facility: [facility] Address: [address] [place] [address] Performed By: #### 5 7021-8 ####[facility] [id number] [place] [address] [place] Eosinophils (Bld) [#/Vol] 0.19 10*3/uL Normal <0.46 [facility] Comment on above: Order Comment: Speci men Type: BLOOD SPECIMENOrdering Facility: [facility] Address: [address] [place] [address] Performed By: #### 5 7021-8 ####[facility] [id number] [place] [address] [place] Eosinophils/100 WBC (Bld) 2.2 % Normal [facility] Comment on above: Order Comment: Speci men Type: BLOOD SPECIMENOrdering Facility: [facility] Address: [address] [place] [address] Performed By: #### 5 7021-8 ####[facility] [id number] [place] [address] [place] Erythrocyte distribution width (RBC) [Ratio] 16.3 % High 11.5-15.0 [facility] Comment on above: Order Comment: Speci men Type: BLOOD SPECIMENOrdering Facility: [facility] Address: [address] [place] [address] Performed By: #### 5 7021-8 ####[facility]ITAL[facility]CR[facility] [id number] [address] [place] Hematocrit (Bld) [Volume fraction] 39.0 % Normal 36.0-46.0 [facility] Comment on above: Order Comment: Speci men Type: BLOOD SPECIMENOrdering Facility: [facility] Address: [address] [place] [address] Performed By: #### 5 7021-8 ####[facility] [id number] [place] [address] [place] Hemoglobin (Bld) [Mass/Vol] 12.0 g/dL Normal 11.5-15.5 [facility] Comment on above: Order Comment: Speci men Type: BLOOD SPECIMENOrdering Facility: [facility] Address: [address] [place] [address] Performed By: #### 5 7021-8 ####[facility] [id number] [place] [address] [place] Immature granulocytes (Bld) [#/Vol] 0.03 10*3/uL Normal <0.10 [facility] Comment on above: Order Comment: Speci men Type: BLOOD SPECIMENOrdering Facility: [facility] Address: [address] [place] [address] Performed By: #### 5 7021-8 ####[facility] HOSPITALLI [id number] [place] [address] [place] Immature granulocytes/100 WBC (Bld) 0.3 % Normal [facility] Comment on above: Order Comment: Speci men Type: BLOOD SPECIMENOrdering Facility: [facility] Address: [address] [place] [address] Performed By: #### 5 7021-8 ####[facility]ITALNCL[facility] [id number] [place] [address] [place] Lymphocytes (Bld) [#/Vol] 1.18 10*3/uL Normal 1.00-4.00 [facility] Comment on above: Order Comment: Speci men Type: BLOOD SPECIMENOrdering Facility: [facility] Address: [address] [place] [address] Performed By: #### 5 7021-8 ####[facility] [id number] [place] [address] [place] Lymphocytes/100 WBC (Bld) 13.5 % Normal [facility] Comment on above: Order Comment: Speci men Type: BLOOD SPECIMENOrdering Facility: [facility] Address: [address] [place] [address] Performed By: #### 5 7021-8 ####[facility] [id number] [place] [address] [place] MCH (RBC) [Entitic mass] 24.4 pg Low 26.0-34.0 [facility] Comment on above: Order Comment: Speci men Type: BLOOD SPECIMENOrdering Facility: [facility] Address: [address] [place] [address] Performed By: #### 5 7021-8 ####[facility]ITALNCL[facility] [id number] [place] [address] [place] MCHC (RBC) [Mass/Vol] 30.8 g/dL Normal 30.5-36.0 [facility] Comment on above: Order Comment: Speci men Type: BLOOD SPECIMENOrdering Facility: [facility] Address: [address] [place] [address] Performed By: #### 5 7021-8 ####[facility]ITALNCLI [id number] [place] [address] [place] MCV (RBC) [Entitic vol] 79.3 fL Low 80.0-100.0 C [facility] Comment on above: Order Comment: Speci men Type: BLOOD SPECIMENOrdering Facility: [facility] Address: [address] [place] [address] Performed By: #### 5 7021-8 ####[facility]ITALNCG[facility] [id number] [place] [address] [place] Monocytes (Bld) [#/Vol] 0.72 10*3/uL Normal <0.87 [facility] Comment on above: Order Comment: Speci men Type: BLOOD SPECIMENOrdering Facility: [facility] Address: [address] [place] [address] Performed By: #### 5 7021-8 ####[facility] [id number] [place] [address] [place] Monocytes/100 WBC (Bld) 8.2 % Normal C [facility] Comment on above: Order Comment: Speci men Type: BLOOD SPECIMENOrdering Facility: [facility] Address: [address] [place] [address] Performed By: #### 5 7021-8 ####[facility] [id number] [place] [address] [place] Neutrophils (Bld) [#/Vol] 6.60 10*3/uL Normal 1.45-7.50 [facility] Comment on above: Order Comment: Speci men Type: BLOOD SPECIMENOrdering Facility: [facility] Address: [address] [place] [address] Performed By: #### 5 7021-8 ####[facility] [id number] [place] [address] [place] Neutrophils/100 WBC (Bld) 75.3 % Normal [facility] Comment on above: Order Comment: Speci men Type: BLOOD SPECIMENOrdering Facility: [facility] Address: [address] [place] [address] Performed By: #### 5 7021-8 ####[facility] MARGOCAROLELIA [id number] [place] [address] [place] Nucleated RBC (Bld) [#/Vol] 10*3/uL Normal <0.01 [facility] Comment on above: Order Comment: Speci men Type: BLOOD SPECIMENOrdering Facility: [facility] Address: [address] [place] [address] Performed By: #### 5 7021-8 ####[facility] HOSPITALLIA [id number] [place] [address] [place] Nucleated RBC/100 WBC (Bld) [Ratio] 0.0 /100 WBC Normal [facility] Comment on above: Order Comment: Speci men Type: BLOOD SPECIMENOrdering Facility: [facility] Address: [address] [place] [address] Performed By: #### 5 7021-8 ####[facility]ITAL[facility] [id number] [place] [address] [place] Platelet mean volume (Bld) [Entitic vol] 9.2 fL Normal 9.0-12.7 [facility] Comment on above: Order Comment: Speci men Type: BLOOD SPECIMENOrdering Facility: [facility] Address: [address] [place] [address] Performed By: #### 5 7021-8 ####[facility] HOSPITALLIA [id number] [place] [address] [place] Platelets (Bld) [#/Vol] 433 10*3/uL High 150-400 [facility] Comment on above: Order Comment: Speci men Type: BLOOD SPECIMENOrdering Facility: [facility] Address: [address] [place] [address] Performed By: #### 5 7021-8 ####[facility] HOSPITALLIA [id number] [place] [address] [place] RBC (Bld) [#/Vol] 4.92 10*6/uL Normal 3.90-5.20 [facility] Comment on above: Order Comment: Speci men Type: BLOOD SPECIMENOrdering Facility: [facility] Address: [address] [place] [address] Performed By: #### 5 7021-8 ####[facility]ITALNCLIA [id number] [place] [address] [place] WBC (Bld) [#/Vol] 8.76 10*3/uL Normal 3.70-11.00 [facility] Comment on above: Order Comment: Speci men Type: BLOOD SPECIMENOrdering Facility: [facility] Address: [address] [place] [address] Performed By: #### 5 7021-8 ####[facility]ITALNCLIA [id number] [place] [address] [place] CNPLeilani 06-25-2023 CNPN Telephone (HEMAWS) ROSITA KENNEDY ([id number]) 1945 F Date Time Provider Department 06/25/23 DOMO FRAZIER HEMAWS During your visit today, we recorded the following information about you: Mahsa Mendez, RN 06/25/2023 1:27 PM Addendum Pt here today for lab draw with RUBIO Max. Winter states that patient did not go to the ED as suggested the other evening. The pt has a friend that stopped by that is a nurse and felt that pt did not need to go to ED. Pt states she is trying to eat and drink more but food still does not taste good to her. Pt states she did have a small, loose BM Wednesday night. She takes Miralax but did not take it today. Pt states she is not uncomfortable and does not feel as if she needs to have a BM. Pt did stop taking the lenvatinib. Pt has had 3 falls within the past week. DIL thought she had an appt with Dr. Frazier today. Advised her that it was next Wednesday. Aware that Mason may return call to f/u. Pt also aware that if she continues to feel worse she should go to the ED as suggested earlier this week. Pt and DIL stated understanding. Please call RUBIO Max with any questions or updates. [phone] Domo Frazier DO 06/25/2023 2:48 PM Signed I certainly agree with continuing to hold lenvatinib. I suspect side effects will continue to improve on a day by day basis. However agree with emergency room should she feel worse or feel as if she needs hydration. DO Juanita Hall Kara LPN 06/25/2023 3:00 PM Signed Pt notified of Dr Frazier response. Pt voices understanding. Usha Grant LPN Allergies As of Date: 06/25/2023 Noted Allergy Reaction CODEINE 02/24/2001 Comments: hives CONTRAST DYE (IODINE) 03/24/2023 6 - Diarrhea Comments: Diarrhea after oral contrast. ERYTHROMYCIN 08/03/2014 8 - GI Upset METHYLPREDNISOLONE 08/03/2014 4 - Hives Comments: IV SULFA (SULFONAMIDE ANTIBIOTICS) 02/24/2001 Comments: hives Date Reviewed: 06/11/2023 Reviewed by: Luz Lan RN - Fully Assessed Reason for Visit: Patient Update [1234] Prescriptions as of 06/25/2023 - potassium chloride (K-TAB) 10 mEq tablet Take 10 mEq by mouth two times a day. - lenvatinib (LENVIMA) 20 mg/day (10 mg x 2) capsules Take 2 capsules (20 mg) by mouth once daily. - rivaroxaban (XARELTO) 15 mg tablet Take 20 mg by mouth once daily. - ondansetron (ZOFRAN) 8 mg tablet Take 1 tablet by mouth every 6 hours as needed for nausea/vomiting. - levothyroxine (LEVOXYL) 25 mcg tablet Take 1 tablet by mouth once daily. Take on empty stomach. For Thyroid - mirtazapine (REMERON) 15 mg tablet Take 1 tablet by mouth daily at bedtime. - meloxicam (MOBIC) 15 mg tablet Take 1 tablet by mouth once daily. With food. - atorvastatin (LIPITOR) 40 mg tablet Take 1 tablet by mouth daily at bedtime. For cholesterol. - Methenamine Hippurate (HIPREX) 1 gram tablet Take 1 tablet by mouth twice daily with meals. - furosemide (LASIX) 20 mg tablet Take one tablet every day but if looses more than 10 pounds in a week then she needs to hold it. - buPROPion (WELLBUTRIN) 75 mg tablet Take it once a day in the morning. - sertraline (ZOLOFT) 25 mg tablet Take 1 tablet by mouth once daily. - sertraline (ZOLOFT) 100 mg tablet Take 1 tablet by mouth once daily. To take along with 25 mgs to make a total of 125 mgs - travoprost (TRAVATAN Z) 0.004 % ophthalmic drops Use 1 Drop in both eyes daily at bedtime. - brimonidine-timolol (COMBIGAN) 0.2-0.5 % ophthalmic solution Use 1 Drop in the right eye twice daily. Use at 9 AM and 3 PM - ondansetron orally disintegrating (ZOFRAN ODT) 4 mg disintegrating tablet Take 1 tablet by mouth every 6 hours as needed for nausea/vomiting. - phenazopyridine (PYRIDIUM, GERIDIUM) 200 mg tablet Take 1 tablet by mouth three times daily as needed. - aspirin, enteric coated (ECOTRIN LOW STRENGTH) 81 mg EC tablet Take 1 tablet by mouth once daily. - calcium carb/vitamin D3/vit K1 (VIACTIV ORAL) Take 1 tablet by mouth once daily. - L GASSERI/B BIFIDUM/B LONGUM ([facility] ORAL) Take 1 tablet by mouth once daily. - CHOLECALCIFEROL, VITAMIN D3, (VITAMIN D3 ORAL) Take by mouth once daily. - LUTEIN ORAL Take 1 tablet by mouth once daily. - MULTIVITAMIN TABLET PO Take one(1) tablet daily. 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 Normal [facility] metabolic 2000 panelon 06-25-2023 Albumin [Mass/Vol] 3.8 g/dL Low 3.9 - 4.9 g/dL [facility] ALP [Catalytic activity/Vol] 116 U/L 34 - 123 U/L [facility] ALT [Catalytic activity/Vol] 7 U/L 7 - 38 U/L [facility] Anion gap [Moles/Vol] 12 mmol/L 9 - 18 mmol/L [facility] AST [Catalytic activity/Vol] 16 U/L 13 - 35 U/L [facility] Bilirubin [Mass/Vol] 0.4 mg/dL 0.2 - 1 .3 mg/dL [facility] Calcium [Mass/Vol] 8.7 mg/dL 8.5 - 10. 2 mg/dL [facility] Chloride [Moles/Vol] 100 mmol/L 97 - 10 5 mmol/L [facility] CO2 [Moles/Vol] 25 mmol/L 22 - 30 mmol/L [facility] Creatinine [Mass/Vol] 0.92 mg/dL 0.58 - 0.96 mg/dL [facility] Estimated Glomerular Filtration Rate 65 mL/min/1.73m >=60 mL/min/1.73m [facility] Glucose [Mass/Vol] 118 mg/dL High 74 - 99 mg/dL [facility] Potassium [Moles/Vol] 3.7 mmol/L 3.7 - 5.1 mmol/L [facility] Protein [Mass/Vol] 6.8 g/dL 6.3 - 8.0 g/dL [facility] Sodium [Moles/Vol] 137 mmol/L 136 - 144 mmol/L [facility] Urea nitrogen [Mass/Vol] 30 mg/dL High 7 - 21 mg/dL [facility] Albumin [Mass/Vol] 3.8 g/dL Low 3.9-4.9 [facility] Comment on above: Order Comment: Speci men Type: BLOOD SPECIMENOrdering Facility: [facility] Address: [address] [place] [address] Performed By: #### 2 4323-8 ####[facility]ITALWNCLIA [id number] [place] [address] [place] ALP [Catalytic activity/Vol] 116 U/L Normal 34-123 [facility] Comment on above: Order Comment: Speci men Type: BLOOD SPECIMENOrdering Facility: [facility] Address: [address] [place] [address] Performed By: #### 2 4323-8 ####[facility] HOSPITALLIA [id number] [place] [address] [place] ALT [Catalytic activity/Vol] 7 U/L Normal 7-38 [facility] Comment on above: Order Comment: Speci men Type: BLOOD SPECIMENOrdering Facility: [facility] Address: [address] [place] [address] Performed By: #### 2 4323-8 ####[facility] HOSPITALLIA [id number] [place] [address] [place] Anion gap [Moles/Vol] 12 mmol/L Normal 9-18 [facility] Comment on above: Order Comment: Speci men Type: BLOOD SPECIMENOrdering Facility: [facility] Address: [address] [place] [address] Performed By: #### 2 4323-8 ####[facility]ITALWNCLIA [id number] [place] [address] [place] AST [Catalytic activity/Vol] 16 U/L Normal 13-35 [facility] Comment on above: Order Comment: Speci men Type: BLOOD SPECIMENOrdering Facility: [facility] Address: [address] [place] [address] Performed By: #### 2 4323-8 ####[facility] CRYSTAL MILLVASUWNCLIA [id number] [place] [address] [place] Bilirubin [Mass/Vol] 0.4 mg/dL Normal 0.2-1.3 [facility] Comment on above: Order Comment: Speci men Type: BLOOD SPECIMENOrdering Facility: [facility] Address: [address] [place] [address] Performed By: #### 2 4323-8 ####[facility] MILLVASUWLYDIALIA [id number] [place] [address] [place] Calcium [Mass/Vol] 8.7 mg/dL Normal 8.5-10.2 [facility] Comment on above: Order Comment: Speci men Type: BLOOD SPECIMENOrdering Facility: [facility] Address: [address] [place] [address] Performed By: #### 2 4323-8 ####[facility] MILLVASUWLYDIALIA [id number] [place] [address] [place] Chloride [Moles/Vol] 100 mmol/L Normal 97-105 [facility] Comment on above: Order Comment: Speci men Type: BLOOD SPECIMENOrdering Facility: [facility] Address: [address] [place] [address] Performed By: #### 2 4323-8 ####[facility] MILLTOWNCLIA [id number] [place] [address] [place] CO2 [Moles/Vol] 25 mmol/L Normal 22-30 [facility] Comment on above: Order Comment: Speci men Type: BLOOD SPECIMENOrdering Facility: [facility] Address: [address] [place] [address] Performed By: #### 2 4323-8 ####[facility] MILLTOWNCLIA [id number] [place] [address] [place] Creatinine [Mass/Vol] 0.92 mg/dL Normal 0.58-0.96 [facility] Comment on above: Order Comment: Roc tan Type: BLOOD SPECIMENOrdering Facility: [facility] Address: [address] [place] [address] Performed By: #### 2 4323-8 ####[facility] [id number] [place] [address] [place] Creatinine and Glomerular filtration rate.predicted panel (S/P/Bld) 65 mL/min/1.73m??? Normal >=60 [facility] Comment on above: Order Comment: Roc tan Type: BLOOD SPECIMENOrdering Facility: [facility] Address: [address] [place] [address] Result Comment: Jefry mated Glomerular Filtration Rate (eGFR) is calculated using the 2020 CKD-EPI creatinine equation. This equation utilizes serum creatinine, sex, and age as parameters. The creatinine assay has traceable calibration to isotope dilution-mass spectrometry. Refer to KDIGO guidelines for clinical interpretation. In patients with unstable renal function, e.g. those with acute kidney injury, the eGFR may not accurately reflect actual GFR. Performed By: #### 2 4323-8 ####[facility] [id number] [place] [address] [place] Glucose [Mass/Vol] 118 mg/dL High 74-99 [facility] Comment on above: Order Comment: Roc tan Type: BLOOD SPECIMENOrdering Facility: [facility] Address: [address] [place] [address] Result Comment: The [place] Diabetes Association (ADA) provides guidance for cutoff values for fasting glucose and random glucose. The ADA defines fasting as no caloric intake for at least 8 hours. Fasting plasma glucose results between 100 to 125 mg/dL indicate increased risk for diabetes (prediabetes). Fasting plasma glucose results greater than or equal to 126 mg/dL meet the criteria for diagnosis of diabetes. In the absence of unequivocal hyperglycemia, results should be confirmed by repeat testing. In a patient with classic symptoms of hyperglycemia or hyperglycemic crisis, random plasma glucose results greater than or equal to 200 mg/dL meet the criteria for diagnosis of diabetes. Reference: Standards of Medical Care in Diabetes 2016, [place] [employer] Association. Diabetes Care. 2016.39(Suppl 1). Performed By: #### 2 4323-8 ####[facility] HOSPITALLI [id number] [place] [address] [place] Potassium [Moles/Vol] 3.7 mmol/L Normal 3.7-5.1 [facility] Comment on above: Order Comment: Speci men Type: BLOOD SPECIMENOrdering Facility: [facility] Address: [address] [place] [address] Performed By: #### 2 4323-8 ####[facility] [id number] [place] [address] [place] Protein [Mass/Vol] 6.8 g/dL Normal 6.3-8.0 [facility] Comment on above: Order Comment: Speci men Type: BLOOD SPECIMENOrdering Facility: [facility] Address: [address] [place] [address] Performed By: #### 2 4323-8 ####[facility] [id number] [place] [address] [place] Sodium [Moles/Vol] 137 mmol/L Normal 136-144 [facility] Comment on above: Order Comment: Speci men Type: BLOOD SPECIMENOrdering Facility: [facility] Address: [address] [place] [address] Performed By: #### 2 4323-8 ####[facility] [id number] [place] [address] [place] Urea nitrogen [Mass/Vol] 30 mg/dL High 7-21 [facility] Comment on above: Order Comment: Speci men Type: BLOOD SPECIMENOrdering Facility: [facility] Address: [address] [place] [address] Performed By: #### 2 4323-8 ####[facility] CRYSTAL CRANEJULIO [id number] [place] [address] [place] Cortis SerPl-mCncon 06-25-20 23 Cortisol [Mass/Vol] 19.6 ug/dL High 4.8-19.5 [facility] Comment on above: Order Comment: Speci men Type: BLOOD SPECIMENOrdering Facility: [facility] Address: [address] [place] [address] Result Comment: Prov ided reference range is from 6-10 AM sample collection time. Cortisol Reference Range: 6-10 AM = 4.8-19.5 ug/dL, 4-8 PM = 2.5-11.9 ug/dL Performed By: #### 3 024-7, 6-3, 6 ####[facility] LABCLIA [id number] [place] [address] [place] T4 Free SerPl-mCncon 023 Free T4 [Mass/Vol] 1.1 ng/dL Normal 0.9-1.7 [facility] Comment on above: Order Comment: Speci men Type: BLOOD SPECIMENOrdering Facility: [facility] Address: [address] [place] [address] Performed By: #### 3 024-7, 3015-3, 2143-01 ####[facility] LABCLIA [id number] [place] [id number] [place] TSH SerPl-aCncon 06-25-2023 TSH Qn 5.140 m[IU]/L High 0.270-4.200 [facility] Comment on above: Order Comment: Speci men Type: BLOOD SPECIMENOrdering Facility: [facility] Address: [address] [place] [address] Performed By: #### 3 024-7, 3016-3, 2143-01 ####[facility] LABCLIA [id number] [facility] [id number] [address] [facility] Stephie 06-23-2023 CNPN Telephone (CRISTOPHER) ROSITA KENNEDY ([id number]) 1945 F Date Time Provider Department 06/23/23 MASON QUINTERO During your visit today, we recorded the following information about you: Mason Quintero RN 06/23/2023 2:09 PM Signed [facility] Care Coordination FOLLOW-UP NOTE Care Coordination Plan: called patient, no answer, left a VM requesting a call back from patient. Mason Quintero RN June 23, 2023 Mason Quintero RN 06/28/2023 10:57 AM Signed [facility] Care Coordination FOLLOW-UP NOTE Care Coordination Plan: Opened chart today to call patient and see how she is feeling. There was a MC message that was sent to Dr. Roberts from son. Patient is currently at [facility]. Opened [facility] records. Patient was admitted for acute dehydration. Copied from yesterday's inpatient note: Assessment/Plan (1) Declining functional status: PLAN: Fallen several times this past week. Multifactorial due to severe multiple medical comorbidities (MS, stage IV uterine cancer) and complicated by dehydration. Correct the dehydration PT OT eval. PLAN: Plan Chronic conditions: Hypothyroidism: TSH on 09/28/22 was normal. With declining functional status will repeat TSH. Glaucoma: continue eye drops VTE: for history of pulmonary embolism and has an IVC filter. Continue rivaroxaban MS: no active medications Stage IV Uterine cancer: follows Dr. Frazier. DVT prophylaxis: Not indicated as patient is on Xarelto Labs: Laboratory Results - last 24 hr 06/26/23 21:04: WBC 8.1, RBC 4.31, Hgb 10.8 L, Hct 35.9 L, MCV 83.3, MCH 25.1 L, MCHC 30.1 L, RDW Std Deviation 49.3 H, RDW Coeff of Lauro 16.8 H, Plt Count 397, MPV 9.0, Immature Gran % (Auto) 0.400, Neut % (Auto) 71.7 H, Lymph % (Auto) 15.3 L, Gilliam % (Auto) 9.1, Eos % (Auto) 3.1, Baso % (Auto) 0.4, Absolute Neuts (auto) 5.8, Absolute Lymphs (auto) 1.23, Nucleated RBC % 0, Sodium 140, Potassium 3.5, Chloride 105, Carbon Dioxide 28.0, Anion Gap 7, BUN 29 H, Creatinine 0.82, Estim Creat Clear Calc 42.58, Est GFR (MDRD) Af Amer 88, Est GFR (MDRD) Non-Af 72, BUN/Creatinine Ratio 35.5 H, Glucose 120 H, Calcium 8.1 L, Total Bilirubin 0.40, AST 18, ALT 13, Alkaline Phosphatase 104, Troponin I High Sens 8, Total Protein 6.8, Albumin 2.9 L, Globulin 3.9, Albumin/Globulin Ratio 0.7 L 06/26/23 22:02: Urine Color Yellow, Urine Clarity Clear, Urine pH 6.0, Ur Specific [place] 1.015, Urine Protein 30 H, Urine Glucose (UA) Normal, Urine Ketones Negative, Urine Occult Blood 25 H, Urine Nitrite Negative, Urine Bilirubin Negative, Urine Urobilinogen Normal, Ur Leukocyte Esterase 25 H, Urine RBC 0 SEEN, Urine WBC 0-5 SEEN, Ur Squamous Epith Cells 0-5 SEEN, Urine Bacteria 0 SEEN, Urine Mucus 0 SEEN Micro: Microbiology 06/26/23 20:55 Nasal Secretion SARS-CoV-2 AND FLU Antigen (Rapid) - Final Radiography Diagnostic Testing: Radiology Impression Brain CT 06/26/23 20:47 IMPRESSION: No acute intracranial hemorrhage. Similar exam findings compared to prior study. Electronically Signed: Pedro Luis Cuellar MD at 22:01 EDT , This nurse will follow-up with patient after discharge. Mason Quintero RN June 28, 2023 Mason Quintero RN 06/30/2023 4:28 PM Signed Patient was discharged to [facility] TCU on 06/29/21. Per [facility] notes: Date of Admission: 06/29/23 Date of Service: 06/29/23 Chief Complaint: Here for rehabilitation. HPI Narrative 06/26/2023 ROSITA KENNEDY, is a 77 Female who presents to [facility] Emergency Department with weakness, frequent falls. Generalized weakness for 1 week. On treatment for metastatic uterine cancer per Dr. Frazier. Immunotherapy infusion 1 week prior, plus oral medications. Oral medications intolerable, stopped. Fallen 4 times in 1 week, hit head earlier, but not on day of presentation. on Xarelto for pulmonary embolism. WBC 8.1, Hemoglobin 10.8, LFT okay, Troponin 8. CT head okay, Urinalysis negative. Not safe to go home alone. 06/26/2023 Admit to Hospital. PT/OT for debility. IV fluids for dehydration. 06/27/2023 Feels okay. Correct dehydration. PT/OT SNF. 06/28/2023 Feels well, no overnight events. PT/OT for TCU. 06/29/2023 Admit to TCU with debility, here for rehabilitation, strengthening, prior to discharge home alone. Resident appears well, eating supper, she ordered pizza. Mason Quintero RN 07/05/2023 12:38 PM Signed Patient is still in TCU. Yesterday patient had c/o sore throat and UTI symptoms, urine culture pending, covid was negative. MONTSE Owen Amber, RN 07/08/2023 9:28 AM Signed Per recent lead case manager note, plan is to d/c patient home tomorrow, 07/09/23. Patient will be discharged home with home health through [facility] PT/OT/ST. Patient is also established with [employer] (more content not included)... Normal [facility] Stephie 06-22-2023 ARTI Telephone (CRISTOPHER) ROSITA KENNEDY ([id number]) 1945 F Date Time Provider Department 06/22/23 DOMO FRAZIER During your visit today, we recorded the following information about you: Britni Gamble 06/22/2023 8:53 AM Signed Winter called stating patient is not eating or drinking and is having extreme fatigue. She is asking if OV is needed. Care Coord went to . Please advise. Mason Quintero RN 06/22/2023 11:48 AM Signed [facility] Care Coordination FOLLOW-UP NOTE Called daughter, there was no answer. A message was left informing her that this nurse spoke to Rosita yesterday and we received [facility] message. This nurse is planning on meeting with Dr. Frazier today to discuss message and conversation notes from yesterday. Call this nurse if she has any further questions in the meantime. Care Coordination Plan: Will follow up after speaking to Dr. Susy Quintero RN June 22, 2023 Mason Quintero RN 06/22/2023 2:39 PM Signed Called patient, there was no answer. Called Winter. Winter informed to have patient stop lenvatinib. Winter stated patient is very weak and she had 2 falls recently d/t weakness. Patient still has not had a BM since last Wednesday or Wednesday. Patient took MOM last night without relief. Winter also stated patients BP was 150/80 yesterday. Patients appetite is still poor and she has poor fluid intake. Due to the severity of weakness, daughter was advised to take patient to local ED for IVF. Daughter stated she will be visiting with patient this evening, have her stop her lenvatinib, and will most likely take patient to [facility] for IVF this evening. This nurse will check up on patient tomorrow. Mason Quintero RN Allergies As of Date: 06/22/2023 Noted Allergy Reaction CODEINE 02/24/2001 Comments: hives CONTRAST DYE (IODINE) 03/24/2023 6 - Diarrhea Comments: Diarrhea after oral contrast. ERYTHROMYCIN 08/03/2014 8 - GI Upset METHYLPREDNISOLONE 08/03/2014 4 - Hives Comments: IV SULFA (SULFONAMIDE ANTIBIOTICS) 02/24/2001 Comments: hives Date Reviewed: 06/11/2023 Reviewed by: Luz Lan RN - Fully Assessed Reason for Visit: Fatigue [46] Prescriptions as of 06/22/2023 - potassium chloride (K-TAB) 10 mEq tablet Take 10 mEq by mouth two times a day. - lenvatinib (LENVIMA) 20 mg/day (10 mg x 2) capsules Take 2 capsules (20 mg) by mouth once daily. - rivaroxaban (XARELTO) 15 mg tablet Take 20 mg by mouth once daily. - ondansetron (ZOFRAN) 8 mg tablet Take 1 tablet by mouth every 6 hours as needed for nausea/vomiting. - levothyroxine (LEVOXYL) 25 mcg tablet Take 1 tablet by mouth once daily. Take on empty stomach. For Thyroid - mirtazapine (REMERON) 15 mg tablet Take 1 tablet by mouth daily at bedtime. - meloxicam (MOBIC) 15 mg tablet Take 1 tablet by mouth once daily. With food. - atorvastatin (LIPITOR) 40 mg tablet Take 1 tablet by mouth daily at bedtime. For cholesterol. - Methenamine Hippurate (HIPREX) 1 gram tablet Take 1 tablet by mouth twice daily with meals. - furosemide (LASIX) 20 mg tablet Take one tablet every day but if looses more than 10 pounds in a week then she needs to hold it. - buPROPion (WELLBUTRIN) 75 mg tablet Take it once a day in the morning. - sertraline (ZOLOFT) 25 mg tablet Take 1 tablet by mouth once daily. - sertraline (ZOLOFT) 100 mg tablet Take 1 tablet by mouth once daily. To take along with 25 mgs to make a total of 125 mgs - travoprost (TRAVATAN Z) 0.004 % ophthalmic drops Use 1 Drop in both eyes daily at bedtime. - brimonidine-timolol (COMBIGAN) 0.2-0.5 % ophthalmic solution Use 1 Drop in the right eye twice daily. Use at 9 AM and 3 PM - ondansetron orally disintegrating (ZOFRAN ODT) 4 mg disintegrating tablet Take 1 tablet by mouth every 6 hours as needed for nausea/vomiting. - phenazopyridine (PYRIDIUM, GERIDIUM) 200 mg tablet Take 1 tablet by mouth three times daily as needed. - aspirin, enteric coated (ECOTRIN LOW STRENGTH) 81 mg EC tablet Take 1 tablet by mouth once daily. - calcium carb/vitamin D3/vit K1 (VIACTIV ORAL) Take 1 tablet by mouth once daily. - L GASSERI/B BIFIDUM/B LONGUM ([facility] ORAL) Take 1 tablet by mouth once daily. - CHOLECALCIFEROL, VITAMIN D3, (VITAMIN D3 ORAL) Take by mouth once daily. - LUTEIN ORAL Take 1 tablet by mouth once daily. - MULTIVITAMIN TABLET PO Take one(1) tablet daily. 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 [facility] C[facility] Tele[facility] (CRISTPOHER) ROSITA KENNEDY ([id number]) 1945 F Date Time Provider Department 06/18/23 DOMO FRAZIER During your visit today, we recorded the following information about you: Britni Gamble 06/18/2023 8:24 AM Signed Patient was prescribed Cipro yesterday for UTI. Daughter told patient not to take until speaking with Dr. Frazier to confirm that it is okay to take Domo Frazier DO 06/18/2023 8:47 AM Signed Okay to take ciprofloxacin. DO Andrae Hall Pamela S, LPN 06/18/2023 8:56 AM Signed Spoke with pt. Informed ok to take the cipro as directed. Idalia Abebe LPN Allergies As of Date: 06/18/2023 Noted Allergy Reaction CODEINE 02/24/2001 Comments: hives CONTRAST DYE (IODINE) 03/24/2023 6 - Diarrhea Comments: Diarrhea after oral contrast. ERYTHROMYCIN 08/03/2014 8 - GI Upset METHYLPREDNISOLONE 08/03/2014 4 - Hives Comments: IV SULFA (SULFONAMIDE ANTIBIOTICS) 02/24/2001 Comments: hives Date Reviewed: 06/11/2023 Reviewed by: Luz Lan RN - Fully Assessed Reason for Visit: Patient Question [3597] Prescriptions as of 06/18/2023 - potassium chloride (K-TAB) 10 mEq tablet Take 10 mEq by mouth two times a day. - lenvatinib (LENVIMA) 20 mg/day (10 mg x 2) capsules Take 2 capsules (20 mg) by mouth once daily. - rivaroxaban (XARELTO) 15 mg tablet Take 20 mg by mouth once daily. - ondansetron (ZOFRAN) 8 mg tablet Take 1 tablet by mouth every 6 hours as needed for nausea/vomiting. - levothyroxine (LEVOXYL) 25 mcg tablet Take 1 tablet by mouth once daily. Take on empty stomach. For Thyroid - mirtazapine (REMERON) 15 mg tablet Take 1 tablet by mouth daily at bedtime. - meloxicam (MOBIC) 15 mg tablet Take 1 tablet by mouth once daily. With food. - atorvastatin (LIPITOR) 40 mg tablet Take 1 tablet by mouth daily at bedtime. For cholesterol. - Methenamine Hippurate (HIPREX) 1 gram tablet Take 1 tablet by mouth twice daily with meals. - furosemide (LASIX) 20 mg tablet Take one tablet every day but if looses more than 10 pounds in a week then she needs to hold it. - buPROPion (WELLBUTRIN) 75 mg tablet Take it once a day in the morning. - sertraline (ZOLOFT) 25 mg tablet Take 1 tablet by mouth once daily. - sertraline (ZOLOFT) 100 mg tablet Take 1 tablet by mouth once daily. To take along with 25 mgs to make a total of 125 mgs - travoprost (TRAVATAN Z) 0.004 % ophthalmic drops Use 1 Drop in both eyes daily at bedtime. - brimonidine-timolol (COMBIGAN) 0.2-0.5 % ophthalmic solution Use 1 Drop in the right eye twice daily. Use at 9 AM and 3 PM - ondansetron orally disintegrating (ZOFRAN ODT) 4 mg disintegrating tablet Take 1 tablet by mouth every 6 hours as needed for nausea/vomiting. - phenazopyridine (PYRIDIUM, GERIDIUM) 200 mg tablet Take 1 tablet by mouth three times daily as needed. - aspirin, enteric coated (ECOTRIN LOW STRENGTH) 81 mg EC tablet Take 1 tablet by mouth once daily. - calcium carb/vitamin D3/vit K1 (VIACTIV ORAL) Take 1 tablet by mouth once daily. - L GASSERI/B BIFIDUM/B LONGUM ([facility] [address] [facility] ORAL) Take 1 tablet by mouth once daily. - CHOLECALCIFEROL, VITAMIN D3, (VITAMIN D3 ORAL) Take by mouth once daily. - LUTEIN ORAL Take 1 tablet by mouth once daily. - MULTIVITAMIN TABLET PO Take one(1) tablet daily. 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 COAG (chronic open-angle glaucoma) - Both Eyes *07/06/2014 10/14/2017 Glaucomatous atrophy (cupping) of optic disc - *07/06/2014 08/05/2015 Visual field defect, unspecified - Right Eye [H*07/06/2014 08/05/2015 Other and combined forms of senile cataract - B*07/06/2014 05/23/2019 History of uterine cancer [Z85.42] 08/08/2014 Regular astigmatism - Both Eyes [H52.229] 11/08/2014 S/P laser cataract surgery [Z98.49] 11/22/2014 Lens replaced by other means - Left Eye [Z96.1] 11/29/2014 08/05/2015 Nasal step visual field defect of right eye [H5*08/05/2015 CRVO (central retinal vein occlusion) [H34.8192]08/05/2015 Pseudophakia of both eyes [Z96.1] 08/05/2015 Primary open angle glaucoma of both eyes, moder*10/01/2016 10/14/2017 Visual field loss [H53.40] 10/01/2016 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 Normal [facility] Stephie 06-17-2023 MALIKN Telephone (CRISTOPHER) ROSITA KENNEDY ([id number]) 1945 F Date Time Provider Department 06/17/23 MASON QUINTERO During your visit today, we recorded the following information about you: Mason Quintero RN 06/17/2023 10:38 AM Signed Called patient for an update on constipation, there was no answer. A message was left requesting a call back from patient. MONTSE Owen Amber, RN 06/18/2023 9:24 AM Signed ORAL ANTI-CANCER AGENTS FOLLOW-UP PHONE CALL/VISIT Patient identified by name and date of . YES Patient is on cycle 1, week 1, day 7 of lenvatinib for Endometrial Cancer. SYMPTOM ASSESSMENT See below Does the patient need interventions or same day appointment:No ADDITIONAL FOLLOW UP: The next outreach call is due on: TBD and was scheduled patient instructed to call with any questions or symptom concerns. The following lab tests are due: 06/25/23 CMP Verified patient is aware of next appointment in the cancer center: Yes. Verified patient verbalized how to correctly refill the oral agent prescription. Yes Does the patient have any financial difficulties affording this medication? No Patient verbalizes understanding of when to seek Medical Attention? YES Patient verbalizes understanding of after-hours and weekend phone number? YES Patient verbalized importance of medication compliance in taking the oral agent as prescribed. Patient instructed to call if unable to comply. Mason Quintero RN TOXICITY CHECK SYMPTOM ASSESSMENT The patient is on Keytruda Headache: No Visual Changes: No Dizziness: No Do you have any periods of confusion? No Mood changes: No Mouth or throat pain: No Appetite: decreased/poor, since forever. Taste changes: No Nausea: No Vomiting: No Heartburn: No. Weight gain/loss: No Episodes of palpitations/chest discomfort/pressure/p ain No Shortness of breath: No Cough: No Diarrhea: after taking mag citrate on Wednesday Constipation: prior to Wednesday. Bladder/Urinary Changes: has UTI, diagnosed yesterday by urgent care. Starting on Cipro today. Pain: No=0 (pain 0 on a scale of 0-10). Fever: No Chills: No Cold sensitivity: No Numbness/weakness: No Edema: No Skin changes: No Itching: No Yellowing of skin or eyes: No Musculoskeletal/joint changes/issues No Bleeding issues: No Activity Level: Fair-poor. Patient is very active with friends and family. Do you need to take naps? Resting during the day Does the patient need interventions or same day appointment:No Reinforced CURRENT treatment education based on current and anticipated symptoms. Discussed port/line care and patient verbalizes understanding: Yes Patient instructed to contact office or after hours Hematology/Oncology fellow for: temperature ? 100.4; questions or concerns. Patient verbalized understanding of when to seek medical attention and after hours number protocol. Mason Quintero RN Allergies As of Date: 06/17/2023 Noted Allergy Reaction CODEINE 02/24/2001 Comments: hives CONTRAST DYE (IODINE) 03/24/2023 6 - Diarrhea Comments: Diarrhea after oral contrast. 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 - lenvatinib (LENVIMA) 20 mg/day (10 mg x 2) capsules Take 2 capsules (20 mg) by mouth once daily. - rivaroxaban (XARELTO) 15 mg tablet Take 20 mg by mouth once daily. - ondansetron (ZOFRAN) 8 mg tablet Take 1 tablet by mouth every 6 hours as needed for nausea/vomiting. - levothyroxine (LEVOXYL) 25 mcg tablet Take 1 tablet by mouth once daily. Take on empty stomach. For Thyroid - mirtazapine (REMERON) 15 mg tablet Take 1 tablet by mouth daily at bedtime. - meloxicam (MOBIC) 15 mg tablet Take 1 tablet by mouth once daily. With food. - atorvastatin (LIPITOR) 40 mg tablet Take 1 tablet by mouth daily at bedtime. For cholesterol. - Methenamine Hippurate (HIPREX) 1 gram tablet Take 1 tablet by mouth twice daily with meals. - furosemide (LASIX) 20 mg tablet Take one tablet every day but if looses more than 10 pounds in a week then she needs to hold it. - buPROPion (WELLBUTRIN) 75 mg tablet Take it once a day in the morning. - sertraline (ZOLOFT) 25 mg tablet Take 1 tablet by mouth once daily. - sertraline (ZOLOFT) 100 mg tablet Take 1 tablet by mouth once daily. To take along with 25 mgs to make a total of 125 mgs - travoprost (TRAVATAN Z) 0.004 % ophthalmic drops Use 1 Drop in both eyes daily at bedtime. - brimonidine-timolol (COMBIGAN) 0.2-0.5 % ophthalmic solution Use 1 (more content not included)... Normal [facility] Stephie 06-14-2023 ARTI Telephone (HEMURIEL) ROSITA KENNEDY ([id number]) 1945 F Date Time Provider Department 06/14/23 MASON QUINTERO During your visit today, we recorded the following information about you: Mason Quintero RN 06/14/2023 11:20 AM Signed CYCLE 1/DAY 1 POST TREATMENT CALL Today's date: June 14, 2023 Treatment Regimen: Keytruda C1D1 Date: 06/11/2023 Called patient to follow-up on symptom management. Spoke with patient SYMPTOM ASSESSMENT Neuro: Headache today. 1/10 ache, took tylenol this AM which alleviated the pain. CV/Resp: None GI/: Appetite: a piece of toast today. Patient stated she ate fairly well over the weekend and ate at a synagogue lunch. Nausea and vomiting x 2 episodes last night. Constipation- last BM x 4 days ago. I feel gassy all over my body but not passing gas. Denies bloating or abdominal pain. Started drinking Orgain protein shakes on Wednesday. Integument: None Activity: Patient reported no changes in energy level, energy level fair Pain: No=0 (pain 0 on a scale of 0-10). Fever: Temperature was 99.2 F Wednesday night Chills: Yes on and off Wednesday/Wednesday. Patient started Keytruda on Wednesday and lenvatinib on Wednesday evening around 5 pm. Patient was at a synagogue luncheon on Wednesday afternoon. Wednesday evening, patient developed chills on and off, and Wednesday evening she had two episodes of emesis and an elevated temperature of 99.2 F. Patient denies cold symptoms or a cough. Patient stated she has constipation x 4 days and I feel gassy all over my body but she is not passing gas. Patient denies abdominal pain or bloating. Patient started orgain protein shakes on Wednesday and is wondering if the shakes are causing her symptoms. Patient will stop orgain shakes for now. Patient reported a mild headache this morning 1/10 aching pain; patient took tylenol and had pain relief. Patient had her COVID/RSV vaccine on 06/08 and felt fine afterwards. Patient has miralax at home. Patient was advised to start today for constipation. Patient has Zofran on hand at home and was advised to start if needed for nausea or to take 1 hour prior to lenvatinib to see if it alleviates nausea/vomiting symptoms. Patient had to go because someone was at her door. Patient stated she was having a luncheon today at her house and she has a friend coming to visit from out of state. Reviewed s/s of when she should call or go to ED for evaluation Any new referrals needed? No Reinforced CURRENT treatment education based on current and anticipated symptoms. Discussed port/line care and patient verbalizes understanding: Yes Patient instructed to contact office or after hours Hematology/Oncology fellow for: temperature ? 100.4; questions or concerns. Patient verbalized understanding of when to seek medical attention and after hours number protocol. MONTSE Owen Paul A, DO 06/14/2023 12:56 PM Signed Her recent PET scan did not demonstrate any metastatic disease in the abdomen so obstruction unlikely. Constipation was observed on the PET scan however. Agree with recommendations for managing the constipation. She may also need magnesium citrate if no BM by tomorrow. DO Leon Acharya Amber, RN 06/14/2023 1:29 PM Signed This nurse can check on patient tomorrow and advise Mag citrate if no BM by tomorrow. MONTSE Owen Amber, RN 06/15/2023 4:56 PM Addendum Spoke to patient. Patient has not had a BM yet. Patient is passing gas, denies fever, chills, N/V, or abdominal pain. Patient instructed to try mag citrate. Take 1/2 bottle, if no BM within 4 hours, take the other half. Discussed s/s of when to go to the ED. Patient stated understanding. Mason Quintero RN Allergies As of Date: 06/14/2023 Noted Allergy Reaction CODEINE 02/24/2001 Comments: hives CONTRAST DYE (IODINE) 03/24/2023 6 - Diarrhea Comments: Diarrhea after oral contrast. ERYTHROMYCIN 08/03/2014 8 - GI Upset METHYLPREDNISOLONE 08/03/2014 4 - Hives Comments: IV SULFA (SULFONAMIDE ANTIBIOTICS) 02/24/2001 Comments: hives Date Reviewed: 06/11/2023 Reviewed by: Luz Lan RN - Fully Assessed Reason for Visit: 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 Worker - Other [3602] Cmt: C1D1 Post Treatment Call (Keytruda/Lenvatinib) Prescriptions as of 06/15/2023 - potassium chloride (K-TAB) 10 mEq tablet Take 10 mEq by mouth two times a day. - lenvatinib (LENVIMA) 20 mg/day (10 mg x 2) capsules Take 2 capsules (20 mg) by mouth once daily. - rivaroxaban (XARELTO) 15 mg tablet Take 20 mg by mouth once daily. - ondansetron (ZOFRAN) 8 mg tablet Take 1 tablet by mouth every 6 hours as needed for nausea/vomiting. - levothyroxine (LEVOXYL) 25 mcg tablet Take 1 tablet by mouth once daily. Take on empty stomach. For Thyroid - mirtazapine (REMERON) 15 mg tablet Take 1 tablet by mouth daily at bedtime. - meloxicam (MOBIC) (more content not included)... Normal [facility] CBC W Auto Differential pane l (Bld)on 06-11-2023 Basophils (Bld) [#/Vol] 0.03 10*3/uL <0.11 k/uL [facility] Basophils/100 WBC (Bld) 0.5 % [facility] Differential cell count method Nom (Bld) Auto [facility] Eosinophils (Bld) [#/Vol] 0.39 10*3/uL <0.46 k/uL [facility] Eosinophils/100 WBC (Bld) 6.7 % [facility] Erythrocyte distribution width (RBC) [Ratio] 16.4 % High 11.5 - 15.0 % [facility] Hematocrit (Bld) [Volume fraction] 37.3 % 36.0 - 46.0 % [facility] Hemoglobin (Bld) [Mass/Vol] 11.5 g/dL 11.5 - 15.5 g/dL [facility] Immature granulocytes (Bld) [#/Vol] 0.03 10*3/uL <0.10 k/uL [facility] Immature granulocytes/100 WBC (Bld) 0.5 % [facility] Lymphocytes (Bld) [#/Vol] 1.40 10*3/uL 1.00 - 4.00 k/uL [facility] Lymphocytes/100 WBC (Bld) 24.0 % [facility] MCH (RBC) [Entitic mass] 24.7 pg Low 26.0 - 34.0 pg [facility] MCHC (RBC) [Mass/Vol] 30.8 g/dL 30.5 - 36.0 g/dL [facility] MCV (RBC) [Entitic vol] 80.0 fL 80.0 - 100.0 fL [facility] Monocytes (Bld) [#/Vol] 0.63 10*3/uL <0.87 k/uL [facility] Monocytes/100 WBC (Bld) 10.8 % [facility] Neutrophils (Bld) [#/Vol] 3.35 10*3/uL 1.45 - 7.50 k/uL [facility] Neutrophils/100 WBC (Bld) 57.5 % [facility] Nucleated RBC (Bld) [#/Vol] <0.01 k/uL [facility] Nucleated RBC/100 WBC (Bld) [Ratio] 0.0 /100 WBC [facility] Platelet mean volume (Bld) [Entitic vol] 9.9 fL 9.0 - 12.7 fL [facility] Platelets (Bld) [#/Vol] 366 10*3/uL 150 - 400 k /uL [facility] RBC (Bld) [#/Vol] 4.66 10*6/uL 3.90 - 5.2 0 m/uL [facility] WBC (Bld) [#/Vol] 5.83 10*3/uL 3.70 - 11. 00 k/uL [facility] Basophils (Bld) [#/Vol] 0.03 10*3/uL Normal <0.11 [facility] Comment on above: Order Comment: Speci men Type: BLOOD SPECIMENOrdering Facility: [facility] Address: [address] [place] [address] Performed By: #### 5 7021-8 ####[facility] CRYSTAL CRANEJULIO [id number] [place] [id number] [place] Basophils/100 WBC (Bld) 0.5 % Normal C [facility] Comment on above: Order Comment: Speci men Type: BLOOD SPECIMENOrdering Facility: [facility] Address: [address] [place] [address] Performed By: #### 5 7021-8 ####[facility] [id number] [place] [address] [place] Differential cell count method Nom (Bld) Auto Normal [facility] Comment on above: Order Comment: Speci men Type: BLOOD SPECIMENOrdering Facility: [facility] Address: [address] [place] [address] Performed By: #### 5 7021-8 ####[facility] [id number] [place] [address] [place] Eosinophils (Bld) [#/Vol] 0.39 10*3/uL Normal <0.46 [facility] Comment on above: Order Comment: Speci men Type: BLOOD SPECIMENOrdering Facility: [facility] Address: [address] [place] [address] Performed By: #### 5 7021-8 ####[facility] [id number] [place] [address] [place] Eosinophils/100 WBC (Bld) 6.7 % Normal [facility] Comment on above: Order Comment: Speci men Type: BLOOD SPECIMENOrdering Facility: [facility] Address: [address] [place] [address] Performed By: #### 5 7021-8 ####[facility] HOSPITALLI [id number] [place] [address] [place] Erythrocyte distribution width (RBC) [Ratio] 16.4 % High 11.5-15.0 [facility] Comment on above: Order Comment: Speci men Type: BLOOD SPECIMENOrdering Facility: [facility] Address: [address] [place] [address] Performed By: #### 5 7021-8 ####[facility]CL[facility] [id number] [place] [address] [place] Hematocrit (Bld) [Volume fraction] 37.3 % Normal 36.0-46.0 [facility] Comment on above: Order Comment: Speci men Type: BLOOD SPECIMENOrdering Facility: [facility] Address: [address] [place] [address] Performed By: #### 5 7021-8 ####[facility]ITALJULIO [id number] [place] [address] [place] Hemoglobin (Bld) [Mass/Vol] 11.5 g/dL Normal 11.5-15.5 [facility] Comment on above: Order Comment: Speci men Type: BLOOD SPECIMENOrdering Facility: [facility] Address: [address] [place] [address] Performed By: #### 5 7021-8 ####[facility]ITALJUL[facility] [id number] [place] [address] [place] Immature granulocytes (Bld) [#/Vol] 0.03 10*3/uL Normal <0.10 [facility] Comment on above: Order Comment: Speci men Type: BLOOD SPECIMENOrdering Facility: [facility] Address: [address] [place] [address] Performed By: #### 5 7021-8 ####[facility] HOSPITALSAURABHA [id number] [place] [address] [place] Immature granulocytes/100 WBC (Bld) 0.5 % Normal [facility] Comment on above: Order Comment: Speci men Type: BLOOD SPECIMENOrdering Facility: [facility] Address: [address] [place] [address] Performed By: #### 5 7021-8 ####[facility]ITALNCLIA [id number] [place] [address] [place] Lymphocytes (Bld) [#/Vol] 1.40 10*3/uL Normal 1.00-4.00 [facility] Comment on above: Order Comment: Speci men Type: BLOOD SPECIMENOrdering Facility: [facility] Address: [address] [place] [address] Performed By: #### 5 7021-8 ####[facility] [id number] [place] [address] [place] Lymphocytes/100 WBC (Bld) 24.0 % Normal [facility] Comment on above: Order Comment: Speci men Type: BLOOD SPECIMENOrdering Facility: [facility] Address: [address] [place] [address] Performed By: #### 5 7021-8 ####[facility]ITALNCGAR[facility] [id number] [place] [address] [place] MCH (RBC) [Entitic mass] 24.7 pg Low 26.0-34.0 [facility] Comment on above: Order Comment: Speci men Type: BLOOD SPECIMENOrdering Facility: [facility] Address: [address] [place] [address] Performed By: #### 5 7021-8 ####[facility] [id number] [place] [address] [place] MCHC (RBC) [Mass/Vol] 30.8 g/dL Normal 30.5-36.0 [facility] Comment on above: Order Comment: Speci men Type: BLOOD SPECIMENOrdering Facility: [facility] Address: [address] [place] [address] Performed By: #### 5 7021-8 ####[facility] [id number] [place] [address] [place] MCV (RBC) [Entitic vol] 80.0 fL Normal 80.0-100.0 C [facility] Comment on above: Order Comment: Speci men Type: BLOOD SPECIMENOrdering Facility: [facility] Address: [address] [place] [address] Performed By: #### 5 7021-8 ####[facility] MILLWNCLIA [id number] [place] [address] [place] Monocytes (Bld) [#/Vol] 0.63 10*3/uL Normal <0.87 [facility] Comment on above: Order Comment: Speci men Type: BLOOD SPECIMENOrdering Facility: [facility] Address: [address] [place] [address] Performed By: #### 5 7021-8 ####[facility] HOSPITALLIA [id number] [place] [address] [place] Monocytes/100 WBC (Bld) 10.8 % Normal [facility] Comment on above: Order Comment: Speci men Type: BLOOD SPECIMENOrdering Facility: [facility] Address: [address] [place] [address] Performed By: #### 5 7021-8 ####[facility] HOSPITALLIA [id number] [place] [address] [place] Neutrophils (Bld) [#/Vol] 3.35 10*3/uL Normal 1.45-7.50 [facility] Comment on above: Order Comment: Speci men Type: BLOOD SPECIMENOrdering Facility: [facility] Address: [address] [place] [address] Performed By: #### 5 7021-8 ####[facility] HOSPITALLIA [id number] [place] [address] [place] Neutrophils/100 WBC (Bld) 57.5 % Normal [facility] Comment on above: Order Comment: Speci men Type: BLOOD SPECIMENOrdering Facility: [facility] Address: [address] [place] [address] Performed By: #### 5 7021-8 ####[facility]ITALNCLIA [id number] [place] [address] [place] Nucleated RBC (Bld) [#/Vol] 10*3/uL Normal <0.01 [facility] Comment on above: Order Comment: Speci men Type: BLOOD SPECIMENOrdering Facility: [facility] Address: [address] [place] [address] Performed By: #### 5 7021-8 ####[facility] [id number] [place] [address] [place] Nucleated RBC/100 WBC (Bld) [Ratio] 0.0 /100 WBC Normal [facility] Comment on above: Order Comment: Speci men Type: BLOOD SPECIMENOrdering Facility: [facility] Address: [address] [place] [address] Performed By: #### 5 7021-8 ####[facility] [id number] [place] [address] [place] Platelet mean volume (Bld) [Entitic vol] 9.9 fL Normal 9.0-12.7 [facility] Comment on above: Order Comment: Speci men Type: BLOOD SPECIMENOrdering Facility: [facility] Address: [address] [place] [address] Performed By: #### 5 7021-8 ####[facility] [id number] [place] [address] [place] Platelets (Bld) [#/Vol] 366 10*3/uL Normal 150-400 [facility] Comment on above: Order Comment: Speci men Type: BLOOD SPECIMENOrdering Facility: [facility] Address: [address] [place] [address] Performed By: #### 5 7021-8 ####[facility] [id number] [place] [address] [place] RBC (Bld) [#/Vol] 4.66 10*6/uL Normal 3.90-5.20 [facility] Comment on above: Order Comment: Speci men Type: BLOOD SPECIMENOrdering Facility: [facility] Address: [place] [address] Performed By: #### 5 7021-8 ####[facility]ITALNCLIA [id number] [address] WBC (Bld) [#/Vol] 5.83 10*3/uL Normal 3.70-11.00 [facility] Comment on above: Order Comment: Speci men Type: BLOOD SPECIMENOrdering Facility: [facility] Address: [address] [facility] [place] [address] Performed By: #### 5 7021-8 ####[facility]ITALNCLIA [id number] [address] [place] Comprehensive metabolic 2000 panelon 06-11-2023 Albumin [Mass/Vol] 3.9 g/dL 3.9 - 4.9 g/dL [facility] ALP [Catalytic activity/Vol] 126 U/L High 34 - 123 U/L [facility] ALT [Catalytic activity/Vol] 7 U/L 7 - 38 U/L [facility] Anion gap [Moles/Vol] 10 mmol/L 9 - 18 mmol/L [facility] AST [Catalytic activity/Vol] 19 U/L 13 - 35 U/L [facility] Bilirubin [Mass/Vol] 0.3 mg/dL 0.2 - 1 .3 mg/dL [facility] Calcium [Mass/Vol] 9.0 mg/dL 8.5 - 10. 2 mg/dL [facility] Chloride [Moles/Vol] 103 mmol/L 97 - 10 5 mmol/L [facility] CO2 [Moles/Vol] 23 mmol/L 22 - 30 mmol/L [facility] Creatinine [Mass/Vol] 0.76 mg/dL 0.58 - 0.96 mg/dL [facility] Estimated Glomerular Filtration Rate 82 mL/min/1.73m >=60 mL/min/1.73m [facility] Glucose [Mass/Vol] 94 mg/dL 74 - 99 mg/dL [facility] Potassium [Moles/Vol] 3.7 mmol/L 3.7 - 5.1 mmol/L [facility] Protein [Mass/Vol] 6.6 g/dL 6.3 - 8.0 g/dL [facility] Sodium [Moles/Vol] 136 mmol/L 136 - 144 mmol/L [facility] Urea nitrogen [Mass/Vol] 16 mg/dL 7 - 21 mg/dL [facility] Albumin [Mass/Vol] 3.9 g/dL Normal 3.9-4.9 [facility] Comment on above: Order Comment: Speci men Type: BLOOD SPECIMENOrdering Facility: [facility] Address: [address] [place] [address] Performed By: #### 2 4323-8 ####[facility] MILLWNYLIA [id number] [place] [address] [place] ALP [Catalytic activity/Vol] 126 U/L High 34-123 [facility] Comment on above: Order Comment: Speci men Type: BLOOD SPECIMENOrdering Facility: [facility] Address: [address] [place] [address] Performed By: #### 2 4323-8 ####[facility] HOSPITALLIA [id number] [place] [address] [place] ALT [Catalytic activity/Vol] 7 U/L Normal 7-38 [facility] Comment on above: Order Comment: Speci men Type: BLOOD SPECIMENOrdering Facility: [facility] Address: [address] [place] [address] Performed By: #### 2 4323-8 ####[facility]ITALWNCLIA [id number] [place] [address] [place] Anion gap [Moles/Vol] 10 mmol/L Normal 9-18 [facility] Comment on above: Order Comment: Speci men Type: BLOOD SPECIMENOrdering Facility: [facility] Address: [address] [place] [address] Performed By: #### 2 4323-8 ####[facility] MILLWNCLIA [id number] [place] [address] [place] AST [Catalytic activity/Vol] 19 U/L Normal 13-35 [facility] Comment on above: Order Comment: Speci men Type: BLOOD SPECIMENOrdering Facility: [facility] Address: [address] [place] [address] Performed By: #### 2 4323-8 ####[facility]PITALWLYDIALIA [id number] [place] [address] [place] Bilirubin [Mass/Vol] 0.3 mg/dL Normal 0.2-1.3 [facility] Comment on above: Order Comment: Speci men Type: BLOOD SPECIMENOrdering Facility: [facility] Address: [address] [place] [address] Performed By: #### 2 4323-8 ####[facility]ITALNCLIA [id number] [place] [address] [place] Calcium [Mass/Vol] 9.0 mg/dL Normal 8.5-10.2 [facility] Comment on above: Order Comment: Speci men Type: BLOOD SPECIMENOrdering Facility: [facility] Address: [address] [place] [address] Performed By: #### 2 4323-8 ####[facility]ITALNCLIA [id number] [place] [address] [place] Chloride [Moles/Vol] 103 mmol/L Normal 97-105 [facility] Comment on above: Order Comment: Speci men Type: BLOOD SPECIMENOrdering Facility: [facility] Address: [address] [place] [address] Performed By: #### 2 4323-8 ####[facility]ITALNCLIA [id number] [place] [address] [place] CO2 [Moles/Vol] 23 mmol/L Normal 22-30 [facility] Comment on above: Order Comment: Speci men Type: BLOOD SPECIMENOrdering Facility: [facility] Address: [address] [place] [address] Performed By: #### 2 4323-8 ####[facility] MARGOCLAYSVILLENCGLORIA [id number] [place] [address] [place] Creatinine [Mass/Vol] 0.76 mg/dL Normal 0.58-0.96 [facility] Comment on above: Order Comment: Speci men Type: BLOOD SPECIMENOrdering Facility: [facility] Address: [address] [place] [address] Performed By: #### 2 4323-8 ####[facility]ITALNCGAR[facility] [id number] [place] [address] [place] Creatinine and Glomerular filtration rate.predicted panel (S/P/Bld) 82 mL/min/1.73m??? Normal >=60 [facility] Comment on above: Order Comment: Speci men Type: BLOOD SPECIMENOrdering Facility: [facility] Address: [address] [place] [address] Result Comment: Jefry mated Glomerular Filtration Rate (eGFR) is calculated using the 2020 CKD-EPI creatinine equation. This equation utilizes serum creatinine, sex, and age as parameters. The creatinine assay has traceable calibration to isotope dilution-mass spectrometry. Refer to KDIGO guidelines for clinical interpretation. In patients with unstable renal function, e.g. those with acute kidney injury, the eGFR may not accurately reflect actual GFR. Performed By: #### 2 4323-8 ####[facility]ITALNCLIA [id number] [place] [address] [place] Glucose [Mass/Vol] 94 mg/dL Normal 74-99 [facility] Comment on above: Order Comment: Speci men Type: BLOOD SPECIMENOrdering Facility: [facility] Address: [address] [place] [address] Result Comment: The [place] Diabetes Association (ADA) provides guidance for cutoff values for fasting glucose and random glucose. The ADA defines fasting as no caloric intake for at least 8 hours. Fasting plasma glucose results between 100 to 125 mg/dL indicate increased risk for diabetes (prediabetes). Fasting plasma glucose results greater than or equal to 126 mg/dL meet the criteria for diagnosis of diabetes. In the absence of unequivocal hyperglycemia, results should be confirmed by repeat testing. In a patient with classic symptoms of hyperglycemia or hyperglycemic crisis, random plasma glucose results greater than or equal to 200 mg/dL meet the criteria for diagnosis of diabetes. Reference: Standards of Medical Care in Diabetes 2016, [place] [employer] Association. Diabetes Care. 2016.39(Suppl 1). Performed By: #### 2 4323-8 ####[facility] MILLWNYLIA [id number] [place] [address] [place] Potassium [Moles/Vol] 3.7 mmol/L Normal 3.7-5.1 [facility] Comment on above: Order Comment: Speci men Type: BLOOD SPECIMENOrdering Facility: [facility] Address: [address] [place] [address] Performed By: #### 2 4323-8 ####[facility] BL[facility]FF[facility] HOSPITALLIA [id number] [place] [address] [place] Protein [Mass/Vol] 6.6 g/dL Normal 6.3-8.0 [facility] Comment on above: Order Comment: Speci men Type: BLOOD SPECIMENOrdering Facility: [facility] Address: [address] [place] [address] Performed By: #### 2 4323-8 ####[facility]ITALNCLIA [id number] [place] [address] [place] Sodium [Moles/Vol] 136 mmol/L Normal 136-144 [facility] Comment on above: Order Comment: Speci men Type: BLOOD SPECIMENOrdering Facility: [facility] Address: [address] [place] [address] Performed By: #### 2 4323-8 ####[facility] HOSPITALLIA [id number] [place] [address] [place] Urea nitrogen [Mass/Vol] 16 mg/dL Normal 7-21 [facility] Comment on above: Order Comment: Speci men Type: BLOOD SPECIMENOrdering Facility: [facility] Address: [address] [place] [address] Performed By: #### 2 4323-8 ####[facility] HOSPITALLIA [id number] [place] [address] [place] Cortis SerPl-mCncon 06-11-20 23 Cortisol [Mass/Vol] 20.4 ug/dL High 4.8-19.5 [facility] Comment on above: Order Comment: Speci men Type: BLOOD SPECIMENOrdering Facility: [facility] Address: [address] [place] [address] Result Comment: Prov ided reference range is from 6-10 AM sample collection time. Cortisol Reference Range: 6-10 AM = 4.8-19.5 ug/dL, 4-8 PM = 2.5-11.9 ug/dL Performed By: #### 3 024-7, 3016-3, 2143-6 ####[facility] LABCLIA [id number] [place] [address] [place] [id number] 06-11-2023 ECG01 Ventricular Rate : 8 7 BPM Atrial Rate : 87 BPM P-R Interval : 140 ms QRS Duration : 66 ms Q-T Interval : 356 ms QTC Calculation(Bazett) : 428 ms Calculated P [place] : 27 degrees Calculated R [place] : -24 degrees Calculated T [place] : 32 degrees SINUS RHYTHM WITH FREQUENT PACs MINIMAL VOLTAGE CRITERIA FOR LVH, MAY BE NORMAL VARIANT ABNORMAL ECG Reconfirmed by NANCY PARK DO ([id number]) on 06/16/2023 4:33:51 PM NAME : ROSITA KENNEDY PID : [id number] : 1945 Gender : Female Race : ORD : Procedure Date : Jun 11 2023 08:58:34 Edit Date : Jun 16 2023 16:33:57 Diagnosis: SINUS RHYTHM WITH FREQUENT PACs MINIMAL VOLTAGE CRITERIA FOR LVH, MAY BE NORMAL VARIANT ABNORMAL ECG Reconfirmed by NANCY PARK DO ([id number]) on 06/16/2023 4:33:51 PM Test Reason : Location : 136 : [facility] Overread By : NANCY PARK DO Edited By : NANCY PARK DO Referred By : DOMO FRAZIER Acquired by : CR, Normal [facility] HBV core Ab Ser Qlon 023 HBV core Ab Ql (S) Negative Normal Negative [facility] Comment on above: Order Comment: Speci men Type: BLOOD SPECIMENOrdering Facility: [facility] Address: [address] [place] [address] Result Comment: No e vidence of current or past infection with Hepatitis B virus. Should recent infection be suspected, repeat testing may be considered 3-4 weeks after this draw. Performed By: #### 5 195-3, 26433-5, 82406-3 ####[facility] LABCLIA [id number] [place] [address] [place] HBV surface Ab Ql (S)on 05-30 HBV surface Ab Qn (S) <8.00 Normal [facility] Comment on above: Order Comment: Speci britney Type: BLOOD SPECIMENOrdering Facility: [facility] Address: [address] [place] [address] Result Comment: <8 m IU/mL: No serological evidence of immunity to Hepatitis B Virus. >/= 8 to <12 mIU/mL: No serological evidence of immunity to Hepatitis B Virus. >/= 12 mIU/mL: Consistent with serological evidence of immunity to Hepatitis B Virus. Performed By: #### 5 195-3, 47714-1, 67454-8 ####[facility] LABCLIA [id number] [place] [address] [place] HBV surface Ab Ser Qlon 05-30 HBV surface Ab Ql (S) Negative Normal [facility] Comment on above: Order Comment: Estellai britney Type: BLOOD SPECIMENOrdering Facility: [facility] Address: [address] [place] [address] Result Comment: No s erological evidence of immunity to Hepatitis B Virus. Performed By: #### 5 195-3, 73233-0, 06457-3 ####[facility] LABCLIA [id number] [place] [address] [place] HBV surface Ag Ser Qlon 05-30 HBV surface Ag Ql (S) Negative Normal Negative [facility] Comment on above: Order Comment: Speci men Type: BLOOD SPECIMENOrdering Facility: [facility] Address: [address] [place] [address] Performed By: #### 5 195-3, 64591-4, 32062-4 ####[facility] LABIA [id number] [place] [address] [place] HCV Ab Ser Qlon 06-11-2023 HCV Ab Ql (S) Negative Normal Negative [facility] Comment on above: Order Comment: Speci men Type: BLOOD SPECIMENOrdering Facility: [facility] Address: [address] [place] [address] Result Comment: The result suggests no evidence of active infection with Hepatitis C virus. Should recent infection be suspected, repeat testing may be considered 4-6 weeks after this draw. Performed By: #### 1 6128-1 ####[facility] LABIA [id number] [place] [address] [place] T4 Free SerPl-mCncon 023 Free T4 [Mass/Vol] 1.1 ng/dL Normal 0.9-1.7 [facility] Comment on above: Order Comment: Speci men Type: BLOOD SPECIMENOrdering Facility: [facility] Address: [address] [place] [address] Performed By: #### 3 024-7, 3016-3, 2143-6 ####[facility] LABIA [id number] [place] [address] [place] TSH SerPl-aCncon 06-11-2023 TSH Qn 4.260 m[IU]/L High 0.270-4.200 [facility] Comment on above: Order Comment: Roc britney Type: BLOOD SPECIMENOrdering Facility: [facility] Address: [address] [place] [address] Performed By: #### 3 024-7, 3016-3, 2143-6 ####[facility] LABCLIA [id number] [place] [id number] [place] CNPNon 06-03-2023 CNPN Telephone (HEMAWS) ROSITA KENNEDY ([id number]) 1945 F Date Time Provider Department 06/03/23 MASON QUINTERO During your visit today, we recorded the following information about you: Mason Quintero RN 06/03/2023 10:27 AM Signed I do not see any prescriptions for lenvatinib in patients current medication list or in her medication history. This medication needs sent to [facility]. Thank you. MONTSE Owen Paul A, DO 06/03/2023 11:11 AM Signed Rx sent to specialty pharmacy. DO Leon Hall Amber, RN 06/10/2023 5:06 PM Addendum Order pended for UA and Hep B remote panel. Please review pended orders under this encounter. See [facility] recommendation. I also noticed there are pended standing orders that were sent to Dr. Carson today to be signed. (CBC/CMP/TSH/T4/Corti carrie) Per [facility] notes: Please consider obtaining baseline TSH and UA per Jennifer's PI. Additionally, please consider completing baseline ECG if clinically appropriate, as patient is on several Qtc prolonging medications and last ECG was completed in 2020. Thank you. MONTSE Owen Amber, RN 06/10/2023 5:06 PM Signed Addended by: MASON QUINTERO on: 06/10/2023 05:06 PM Modules accepted: Domo Sharma DO 06/10/2023 5:19 PM Signed I put in the orders for the standing lab work. Agree with baseline TSH/T4/cortisol and EKG as well as CBC and CMP for first treatment. Then TSH/T4/cortisol every 6 weeks. CBC every 3 weeks when here for treatment and CMP every 2 weeks for 2 months then every 3 weeks with each treatment. UA B/O every 3 weeks beginning with second dose pembrolizumab. DO Susy Acharya Paul A, DO 06/10/2023 5:19 PM Signed Addended by: DOMO FRAZIER on: 06/10/2023 05:19 PM Modules accepted: Mahsa Nix 06/11/2023 9:46 AM Signed Lab appointments/appointm ent notes adjusted. Mahsa Boucher Allergies As of Date: 06/03/2023 Noted Allergy Reaction CODEINE 02/24/2001 Comments: hives CONTRAST DYE (IODINE) 03/24/2023 6 - Diarrhea Comments: Diarrhea after oral contrast. 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 [3602] Cmt: Oral Chemotherapy Medication (Lenvatinib) Primary Visit Diagnosis:Endometrial cancer (HCC) [C54.1] Other Visit Diagnosis:Acquired hypothyroidism [E03.9] Order(s):lenvatinib (LENVIMA) 20 mg/day (10 mg x 2) capsulesTake 2 capsules (20 mg) by mouth once daily.Disp: 60 capsuleRfl: 5 UA DIP, URINE (POC) [[id number]] Order #: [id number] STANDING HEP REMOTE PANEL BL [SQHREMOP] Order #: [id number] FUTURE ECG COMPLETE [ECG01] Order #: [id number] FUTURE CBC + DIFF [SQCBCDIF] Order #: [id number] STANDING COMP METABOLIC PANEL [SQCMP] Order #: [id number] STANDING TSH BLD [SQTSH] Order #: [id number] STANDING T4 FREE/FREE THYROX [SQFT4] Order #: [id number] STANDING CORTISOL BLD [SQCOR] Order #: [id number] STANDING Prescriptions as of 06/11/2023 - aspirin, enteric coated (ECOTRIN LOW STRENGTH) 81 mg EC tablet Take 1 tablet by mouth once daily. - atorvastatin (LIPITOR) 40 mg tablet Take 1 tablet by mouth daily at bedtime. For cholesterol. - brimonidine-timolol (COMBIGAN) 0.2-0.5 % ophthalmic solution Use 1 Drop in the right eye twice daily. Use at 9 AM and 3 PM - buPROPion (WELLBUTRIN) 75 mg tablet Take it once a day in the morning. - calcium carb/vitamin D3/vit K1 (VIACTIV ORAL) Take 1 tablet by mouth once daily. - CHOLECALCIFEROL, VITAMIN D3, (VITAMIN D3 ORAL) Take by mouth once daily. - furosemide (LASIX) 20 mg tablet Take one tablet every day but if looses more than 10 pounds in a week then she needs to hold it. - L GASSERI/B BIFIDUM/B LONGUM ([facility] Front Row [facility] ORAL) Take 1 tablet by mouth once daily. - lenvatinib (LENVIMA) 20 mg/day (10 mg x 2) capsules Take 2 capsules (20 mg) by mouth once daily. - levothyroxine (LEVOXYL) 25 mcg tablet Take 1 tablet by mouth once daily. Take on empty stomach. For Thyroid - LUTEIN ORAL Take 1 tablet by mouth once daily. - meloxicam (MOBIC) 15 mg tablet Take 1 tablet by mouth once daily. With food. - Methenamine Hippurate (HIPREX) 1 gram tablet Take 1 tablet by mouth twice daily with meals. - mirtazapine (REMERON) 15 mg tablet Take 1 tablet by mouth daily at bedtime. - MULTIVITAMIN TABLET PO Take one(1) tablet daily. - ondansetron (ZOFRAN) 8 mg tablet Take 1 tablet by mouth every 6 hours as needed for nausea/vomiting. - ondansetron orally disintegrating (ZOFRAN ODT) 4 mg disintegrating tablet Take 1 tablet by mouth every 6 hours as needed for nausea/vomiting. - phenazopyridine (PYRIDIUM, GERIDIUM) 200 mg tablet Take 1 tablet by mouth three times daily as needed. - po (more content not included)... Normal [facility] CNOVSPon 06-01-2023 CNOVSP Visit (SP) Office (CRISTOPHER) [place] ([id number]) 1945 F Date Time Provider Department 06/01/23 4:20 PM DOMO FRAZIER During your visit today, we recorded the following information about you: Temperature Pulse Blood pressure Weight 98.3 degrees 90/minute 148/79 49.7 kg Height 1.485 m Domo Frazier DO 06/02/2023 7:15 PM Signed Patient referred by Dr. Roberts for ongoing management of . The impression and plan will be communicated by way of the shared electronic record or faxed under separate cover letter. HPI: The patient is a 77-year-old female with a past medical history significant for chronic open-angle glaucoma, central retinal vein occlusion, multiple sclerosis in remission and endometrial cancer. Per Dr. Roberts's most recent office visit note updated and edited today by me as necessary: Treatment History: 1. Initital presentation: Saw Skylar Ackerman CNP for complaints of PMB, 5 day history. On 07/25/2014 had a EMB that showed Well differentiated endometrioid adenocarcinoma, FIGO grade 1. HNPCC screening negative 2. 09/12/2014 Surgery: Single-port total laparoscopic hysterectomy with bilateral salpingo-oophorectomy , bilateral pelvic lymphadenectomy, bilateral periaortic lymphadenectomy and cystoscopy 3.) 10/03/14 Consult to rad onc: RT deferred 4.) 10/26/2016: Lymphatic recurrence in left neck right retrocaval, bilateral pelvis 5.) 12/03/2016: Lymph node FNA: Positive for malignant cells. Adenocarcinoma 6.) 12/10/2016-04/01/2017: Chemo - Carbo/Taxol x 6 cycles 7.) 05/2017: Radiation - RT to left supraclavicular region, retroperitoneal/pelvi c node region 8.) 02/2018: Right retrorenal LN met not amenable to SRS or removal. Pt declined cytotoxic therapy ER 50%, NV negative 9). 03/31/2018 - 03/16/2019: Letrozole started. Everolimus added 06/23/2018 due to progression. Treatment discontinued 03/16/2019 due to disease progression (confirmed 03/06/2019). Patient elected treatment holiday. 10). 08/2018: PE, IVC filter placement 11). 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 01/01/2022: [facility]. Recommended RT (vs systemic chemotherapy) for management of hypermetabolic aortocaval lymphadenopathy. Patient would prefer treatment in [place], [place]. 13). 02/24/2022 - 03/03/2022: Radiation Therapy (SBRT) - The Aortocaval LNs PTV received a total dose of 2400 cGy in [address] Youngblood 14) 09/03/2022 - 09/07/2022: Hospital admission: TCU resident for debility, RY, dehydration, UTI, extensive RLE DVT. 09/07/2022 Admitted to [facility] for heparin drip secondary to DVT 09/08/2022-09/10/2022: Surgical management w/ Dr. Schaefer for extensive RLE DVT. Patient underwent thrombectomy, balloon angioplasty of right lower extremity DVT and IVC venogram, percutaneous thrombectomy IVC, bilateral common and external arteries angioplasty, IVUS. Patient required admission and rehabilitation. 15) 10/2022: PET scan with few new retrocrural lymph nodes suspicious for metastases. 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 16) 02/26/2023: PET/CT shows new hypermetabolic left axillary and left subpectoral lymphadenopathy and progressing posterior mediastinal/retrocrur al lymphadenopathy c/w metastatic disease. 17) 03/12/2023, 03/22/2023: Chemotherapy w/ Doxil 40 D1 - Q28 was unsuccessful due to reactions. C1 infusion on 03/12 was stopped after 10ml of Doxil was infused when patient became flushed, BP elevated 170/110 and chest tightness. BP returned normal, but chest tightness continued so pt was transferred to [facility]. Patient had another reaction on 03/23 during inpatient Doxil re-challenge, so treatment was cancelled. 18) 03/31/2023: Second opinion and transfer of care to [facility] primary. Elected to have treatment holiday with plan for follow up scan end of 04/2023 19) 05/25/2023: PET/CT with worsening metastatic disease: Chest with enlarged left subpectoral and axillary lymph nodes with central necrosis, worsened paraesophageal and retrocrural adenopathy. New hypermetabolic soft tissue thickening involving the right paraspinal region of T10. No new uptake in abdomen/pelvis and no other new sites of disease. She offers no complaints today. No abdominal pain, bloating or distention. Bowels have been moving regularly. No nausea or vomiting. PAST MEDICAL HISTORY Diagnosis Date Cataracts, bilateral COAG (chronic open-angle glaucoma) CRVO (central retinal vein occlusion) Disorder of bone and cartilage, unspecified Multiple sclerosis (HCC) 2001 remission currently Pseudophakia, both eyes Pyelonephritis, unspecified 01/2010 Pyelonephritis Uterine cancer (HCC) 08/08/2014 PAST SURGICAL HI (more content not included)... Normal [facility] Stephie 06-01-2023 ARTI Telephone (CRISTOPHER) ROSITA KENNEDY ([id number]) 1945 F Date Time Provider Department 06/01/23 DOMO FRAZIER During your visit today, we recorded the following information about you: Mahsa Boucher 06/02/2023 10:34 AM Addendum Schedule CBC/CMP/TSH/[id number] L/OV/Q3WK KEYTRUDA/ORAL CHEMO when brdlgjob-[id number] calls in on 06/02/23. Per Staff message, ok to do lab/ov/treatment same day and ok to schedule with Flakita. Mahsa Jernigan, Britni 06/02/2023 1:05 PM Signed Scheduled with daughter- LAB(PORT), OV and CHEMO START FOR 06/04 Start email sent. Who is ordering provider? Idalia Abebe LPN 06/02/2023 1:[address] Frazier is ordering provider. LUIS Hardin Stephanie 06/03/2023 8:43 AM Signed Patient was originally supposed to get Keytruda at [place] on 06/02, but it was cancelled. Patient does not need OV w/ first dose here, but Keytruda needs rescheduled due to authorization. LM for patient's bbihmzch-[id number] to return call. When she calls, please advise that the treatment needs pushed out for authorization purposes and schedule at least 5 business days out with labs as a part of the treatment. Mahsa Jernigan, Britni 06/03/2023 8:58 AM Signed Lab and Keytruda r/s to 06/10 Mason Quintero RN 06/03/2023 9:02 AM Signed Please schedule patient for a chemo edu phone call as well, thank you. MONTSE Owen Stephanie 06/03/2023 9:20 AM Signed Spoke with patient and scheduled chemo ed call at 1:30 on 06/04. Mahsa Boucher Allergies As of Date: 06/01/2023 Noted Allergy Reaction CODEINE 02/24/2001 Comments: hives CONTRAST DYE (IODINE) 03/24/2023 6 - Diarrhea Comments: Diarrhea after oral contrast. ERYTHROMYCIN 08/03/2014 8 - GI Upset METHYLPREDNISOLONE 08/03/2014 4 - Hives Comments: IV SULFA (SULFONAMIDE ANTIBIOTICS) 02/24/2001 Comments: hives Date Reviewed: 06/01/2023 Reviewed by: Aleksander Freire MA - Fully Assessed Reason for Visit: AVS/Chemo Start [Other] Prescriptions as of 08/25/2023 - potassium chloride (K-TAB) 10 mEq tablet Take 10 mEq by mouth two times a day. - lenvatinib (LENVIMA) 20 mg/day (10 mg x 2) capsules Take 2 capsules (20 mg) by mouth once daily. - rivaroxaban (XARELTO) 15 mg tablet Take 20 mg by mouth once daily. - ondansetron (ZOFRAN) 8 mg tablet Take 1 tablet by mouth every 6 hours as needed for nausea/vomiting. - levothyroxine (LEVOXYL) 25 mcg tablet Take 1 tablet by mouth once daily. Take on empty stomach. For Thyroid - mirtazapine (REMERON) 15 mg tablet Take 1 tablet by mouth daily at bedtime. - meloxicam (MOBIC) 15 mg tablet Take 1 tablet by mouth once daily. With food. - atorvastatin (LIPITOR) 40 mg tablet Take 1 tablet by mouth daily at bedtime. For cholesterol. - Methenamine Hippurate (HIPREX) 1 gram tablet Take 1 tablet by mouth twice daily with meals. - furosemide (LASIX) 20 mg tablet Take one tablet every day but if looses more than 10 pounds in a week then she needs to hold it. - buPROPion (WELLBUTRIN) 75 mg tablet Take it once a day in the morning. - sertraline (ZOLOFT) 25 mg tablet Take 1 tablet by mouth once daily. - sertraline (ZOLOFT) 100 mg tablet Take 1 tablet by mouth once daily. To take along with 25 mgs to make a total of 125 mgs - travoprost (TRAVATAN Z) 0.004 % ophthalmic drops Use 1 Drop in both eyes daily at bedtime. - brimonidine-timolol (COMBIGAN) 0.2-0.5 % ophthalmic solution Use 1 Drop in the right eye twice daily. Use at 9 AM and 3 PM - ondansetron orally disintegrating (ZOFRAN ODT) 4 mg disintegrating tablet Take 1 tablet by mouth every 6 hours as needed for nausea/vomiting. - phenazopyridine (PYRIDIUM, GERIDIUM) 200 mg tablet Take 1 tablet by mouth three times daily as needed. - aspirin, enteric coated (ECOTRIN LOW STRENGTH) 81 mg EC tablet Take 1 tablet by mouth once daily. - calcium carb/vitamin D3/vit K1 (VIACTIV ORAL) Take 1 tablet by mouth once daily. - L GASSERI/B BIFIDUM/B LONGUM ([facility] ORAL) Take 1 tablet by mouth once daily. - CHOLECALCIFEROL, VITAMIN D3, (VITAMIN D3 ORAL) Take by mouth once daily. - LUTEIN ORAL Take 1 tablet by mouth once daily. - MULTIVITAMIN TABLET PO Take one(1) tablet daily. 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 [facility] ROSITA KENNEDY ([id number]) 1945 F Date Time Provider Department 05/26/23 DOMO FRAZIER During your visit today, we recorded the following information about you: Domo Frazier DO 05/26/2023 6:[address] Malathi Roberts is referring this patient for further care of metastatic endometrial cancer. Please offer her appointment next Wednesday afternoon at 4:20 pm. Established complex. DO Jesus Acharya Melissa 05/27/2023 8:36 AM Signed Scheduled with patient Allergies As of Date: 05/26/2023 Noted Allergy Reaction CODEINE 02/24/2001 Comments: hives CONTRAST DYE (IODINE) 03/24/2023 6 - Diarrhea Comments: Diarrhea after oral contrast. ERYTHROMYCIN 08/03/2014 8 - GI Upset METHYLPREDNISOLONE 08/03/2014 4 - Hives Comments: IV SULFA (SULFONAMIDE ANTIBIOTICS) 02/24/2001 Comments: hives Date Reviewed: 05/26/2023 Reviewed by: Stacy Stanford MA - Fully Assessed Reason for Visit: Appointment [186] Prescriptions as of 05/27/2023 - ondansetron (ZOFRAN) 8 mg tablet Take 1 tablet by mouth every 6 hours as needed for nausea/vomiting. - levothyroxine (LEVOXYL) 25 mcg tablet Take 1 tablet by mouth once daily. Take on empty stomach. For Thyroid - mirtazapine (REMERON) 15 mg tablet Take 1 tablet by mouth daily at bedtime. - meloxicam (MOBIC) 15 mg tablet Take 1 tablet by mouth once daily. With food. - atorvastatin (LIPITOR) 40 mg tablet Take 1 tablet by mouth daily at bedtime. For cholesterol. - Methenamine Hippurate (HIPREX) 1 gram tablet Take 1 tablet by mouth twice daily with meals. - furosemide (LASIX) 20 mg tablet Take one tablet every day but if looses more than 10 pounds in a week then she needs to hold it. - buPROPion (WELLBUTRIN) 75 mg tablet Take it once a day in the morning. - sertraline (ZOLOFT) 25 mg tablet Take 1 tablet by mouth once daily. - sertraline (ZOLOFT) 100 mg tablet Take 1 tablet by mouth once daily. To take along with 25 mgs to make a total of 125 mgs - travoprost (TRAVATAN Z) 0.004 % ophthalmic drops Use 1 Drop in both eyes daily at bedtime. - brimonidine-timolol (COMBIGAN) 0.2-0.5 % ophthalmic solution Use 1 Drop in the right eye twice daily. Use at 9 AM and 3 PM - ondansetron orally disintegrating (ZOFRAN ODT) 4 mg disintegrating tablet Take 1 tablet by mouth every 6 hours as needed for nausea/vomiting. - phenazopyridine (PYRIDIUM, GERIDIUM) 200 mg tablet Take 1 tablet by mouth three times daily as needed. - aspirin, enteric coated (ECOTRIN LOW STRENGTH) 81 mg EC tablet Take 1 tablet by mouth once daily. - calcium carb/vitamin D3/vit K1 (VIACTIV ORAL) Take 1 tablet by mouth once daily. - L GASSERI/B BIFIDUM/B LONGUM ([employer] [facility] ORAL) Take by mouth. - CHOLECALCIFEROL, VITAMIN D3, (VITAMIN D3 ORAL) Take by mouth once daily. - LUTEIN ORAL Take by mouth. - MULTIVITAMIN TABLET PO Take one(1) tablet daily. 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 COAG (chronic open-angle glaucoma) - Both Eyes *07/06/2014 10/14/2017 Glaucomatous atrophy (cupping) of optic disc - *07/06/2014 08/05/2015 Visual field defect, unspecified - Right Eye [H*07/06/2014 08/05/2015 Other and combined forms of senile cataract - B*07/06/2014 05/23/2019 History of uterine cancer [Z85.42] 08/08/2014 Regular astigmatism - Both Eyes [H52.229] 11/08/2014 S/P laser cataract surgery [Z98.49] 11/22/2014 Lens replaced by other means - Left Eye [Z96.1] 11/29/2014 08/05/2015 Nasal step visual field defect of right eye [H5*08/05/2015 CRVO (central retinal vein occlusion) [H34.8192]08/05/2015 Pseudophakia of both eyes [Z96.1] 08/05/2015 Primary open angle glaucoma of both eyes, moder*10/01/2016 10/14/2017 Visual field loss [H53.40] 10/01/2016 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] 10/01/2016 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 Normal [facility] No Panel Informationon 05-20 [facility] UA MICROSCOPICon 04-28-2023 BACTERIA 1+ /HPF Abnormal [facility] Comment on above: Performed By: #### U AMIC #### [place] [address] Mucus Ql (Urine sed) 2+ /LPF Normal [facility] Comment on above: Performed By: #### U AMIC #### [place] [address] RBC 3 /HPF Normal 0-5 [facility] Comment on above: Performed By: #### U AMIC #### [place] [address] SQUAMOUS EPITH. CELLS 2 /HPF Normal [facility] Comment on above: Performed By: #### U AMIC #### [place] [address] WBC 84 /HPF Abnormal 0-5 [facility] Comment on above: Performed By: #### U AMIC #### [place] [address] WBC CLUMPS FEW Normal [facility] Comment on above: Performed By: #### U AMIC #### [place] [id number] URINALYSISon 04-28-2023 Appearance (U) HAZY Normal CLEAR [facility] Comment on above: Performed By: #### U A #### [address] [address] Bilirubin Ql (U) Negative Normal NEGATIVE [facility] Comment on above: Performed By: #### U A #### [address] [address] Color (U) Yellow Normal STRAW,YELLOW [facility] Comment on above: Performed By: #### U A #### [address] [address] Glucose Ql (U) Negative Normal NEGATIVE [facility] Comment on above: Performed By: #### U A #### [address] [address] Hemoglobin Ql (U) Negative Normal NEGATIVE [facility] Comment on above: Performed By: #### U A #### [place] [address] Ketones Ql (U) Negative Normal NEGATIVE [facility] Comment on above: Performed By: #### U A #### [address] [address] Leukocyte esterase Test strip Ql (U) SMALL (1+) Abnormal NEGATIVE [facility] Comment on above: Performed By: #### U A #### [address] [address] Nitrite Ql (U) Negative Normal NEGATIVE [facility] Comment on above: Performed By: #### U A #### [address] [address] pH (U) 5.0 [pH] Normal 5.0 - 8.0 [facility] Comment on above: Performed By: #### U A #### [address] [address] Protein Ql (U) 30 (1+) Abnormal NEGATIVE [facility] Comment on above: Performed By: #### U A #### [address] [address] Specific gravity (U) [Rel density] 1.018 Normal 1.005 - 1.035 [facility] Comment on above: Performed By: #### U A #### [address] [address] Urobilinogen (U) [Mass/Vol] mg/dL Normal 0.0 - 1.9 [facility] Comment on above: Performed By: #### U A #### [address] [address] URINE CULTURE,BACTERIALon URINE CULTURE,BACTERIAL PATIENT: ROSITA KENNEDY LOCATION: [facility] BILL#: [id number] : [birth year] AGE: SEX: F ORDERED BY: LORETTA WOLFE SOURCE: URINE COLLECTED: 04/28/23 16:04 ANTIBIOTICS AT BOBBY.: RECEIVED : 04/29/23 00:17 SITE: Clean Catch/Voided R E S U L T S URINE CULTURE,BACTERIAL FINAL 04/29/23 17:07 NO SIGNIFICANT GROWTH. Normal [facility] Comment on above: Performed By: #### U [facility] #### [facility] [address] [place] [address] Provider Note - ED v3on 03-30 Provider Note - ED v3 Provider Note: Results/Vital Signs Pediatric Clinical Scoring (IVORY) is no recent IVORY charted on this account Chart Review ED NOTES ED NOTES: Female presents for evaluation of dysuria. Patient reports several days of increased fatigue and low back pain/pressure. Patient denies fever, suprapubic tenderness, dysuria, vaginal discharge, nausea, vomiting, or other constitutional signs and symptoms. Patient reports similar episodes in the past diagnosed as urinary tract infections. No other complaints. HISTORY OF PRESENTING ILLNESS ROSITA is a 77 year old Female and was seen by me at 13-Apr-2023 16:05. Triage Information: Most recent Vital Sign Value Date PAST MEDICAL HISTORY ALLERGIES/INTOLERANCE S: Allergy Allergen: codeine Type: Drug Reaction: Other Allergen: erythromycin Type: Drug Reaction: Other Allergen: corticosteroids Type: Drug Category Reaction: Other Allergen: sulfa drugs Type: Drug Category Reaction: Unknown HEALTH HISTORY: Medical History Name:Endometrial cancer Code:C54.1 Name:Encounter for counseling Code:Z71.9 Name:Retroperitoneal mass Code:R19.00 OUTPATIENT MEDICATIONS: Home Medications Review Status for Reconciliation: Complete Med Status: Patient Currently Takes Medications Drug Name: atorvastatin 10 mg oral tablet Instructions: 1 tab(s) orally once a day Drug Name: letrozole 2.5 mg oral tablet Instructions: 1 tab(s) orally once a day Drug Name: mirtazapine 30 mg oral tablet Instructions: 1 tab(s) orally once a day (at bedtime) Drug Name: sertraline 100 mg oral tablet Instructions: 1 tab(s) orally once a day Drug Name: furosemide 20 mg oral tablet Instructions: 1 tab(s) orally once a day Drug Name: potassium chloride 10 mEq oral capsule, extended release Instructions: 1 cap(s) orally 2 times a day Drug Name: Viactiv Multi-Vitamin oral tablet, chewable Instructions: 1 tab(s) orally once a day Drug Name: nitrofurantoin Instructions: null Drug Name: colon health Instructions: null Drug Name: aspirin Instructions: null SIGNIFICANT EVENTS: Immunizations Description:SARS-CoV- 2 (COVID-19) Description:SARS-CoV- 2 (COVID-19) REVIEW OF SYSTEMS All other systems reviewed and are negative REVIEW OF SYSTEMS: Comments See HPI PHYSICAL EXAM CONSTITUTIONAL: Well appearing, well nourished, awake, alert, oriented to person, place, time/situation and in no apparent distress. GENITOURINARY: No discharge, no lesions per pt report. No CVA tenderness or suprapubic tenderness. NEUROLOGICAL: Alert and oriented, no focal deficits, no motor or sensory deficits. SKIN: Skin normal color for race, warm, dry and intact. No evidence of trauma. PSYCHIATRIC: Alert and oriented to person, place, time/situation. normal mood and affect. No apparent risk to self or others. CRITICAL CARE VITAL SIGNS: T PRBP SpO2O2(LPM) %FiO2 Method 13-Apr-2023 16:13:[id number]/ 61 98 MDM MDM/ED COURSE: Discussed Findings with: patient Data Reviewed: vital signs Awaiting: lab results (urine culture) Treatment Plan: POC UA trace leukocytes, positive nitrites, urobilinogen 0.2, protein 100 mg/dL, pH 5.5, moderate blood, specific gravity 1.025, negative ketones, negative bilirubin, negative glucose. Rx Cipro. Urine sent for culture. Encouraged patient increase water intake, avoid caffeine/energy drinks, wipe front to back after voiding and bowel movements, avoid baths/hot tubs/pools, avoid tight fitting garments, empty bladder frequently. Patient's clinical presentation is otherwise unremarkable at this time. Patient is discharged with instructions to follow-up with primary care or seek emergency medical attention for worsening symptoms or any new concerns. DISPOSITION Diagnosis/Annotation: ED Dx Name:UTI (urinary tract infection) Code:N39.0 Name:Fatigue Code:R53.83 Disposition: discharged Type: home CONSULT CRITICAL CARE TIME Is this a critically ill patient: no Electronic Signatures for Addendum Section: Blanca Mitchell ([facility]) (Signed Addendum 16-Apr-2023 14:13) Reviewed urine culture result with patient - infection sensitive to Cipro. Patient states is feeling better; advised to finish antibiotic as directed, push fluids, and seek care if not continuing to improved. Patient stated understanding; no questions/concerns verbalized. Electronic Signatures: Carolyn Solorzano ([facility]) (Signed 13-Apr-2023 16:32) Authored: ED Notes, HPI, PMH, ROS, PE, Results/Vital Signs, MDM/ED Course, Clinical Impression, Attestation, Chart Review, Scores Blanca Mitchell ([facility]) (Signature Pending) Authored: PE, Attestation Last Updated: 16-Apr-2023 14:13 by Blanca Mitchell ([facility]) [facility] URINE CULTURE,BACTERIALon URINE CULTURE,BACTERIAL PATIENT: ROSITA KENNEDY LOCATION: [facility] BILL#: [id number] : [birth year] AGE: SEX: F ORDERED BY: CAROLYN SOLORZANO SOURCE: URINE COLLECTED: 04/13/23 16:31 ANTIBIOTICS AT BOBBY.: RECEIVED : 04/14/23 17:27 SITE: Clean Catch/Voided R E S U L T S URINE CULTURE,BACTERIAL FINAL 04/16/23 09:36 ISOLATE1 : Pseudomonas aeruginosa >100,000 CFU/ML __ Organism Ps aerug Antibiotic BP INTRP __ Aztreonam R Ceftazidime S Ciprofloxacin S Cefepime S Gentamicin S Levofloxacin I Piperc/Tazobact S Tobramycin S S=SUSCEPTIBLE I=INTERMEDIATE R=RESISTANT SDD=SUSCEPTIBLE DOSE DEPENDENT NS=NONSUSCEPTIBLE X=REPORTED IN ERROR Normal [facility] Comment on above: Performed By: #### U [facility] #### [facility] [address] [place] [address] [facility] 04-05-2023 [facility] Telephone (DEB) ROSITA KENNEDY ([id number]) 1945 F Date Time Provider Department 04/05/23 HENRY DONOVAN GYN During your visit today, we recorded the following information about you: Henry Donovan, RN 04/05/2023 8:55 AM Signed Patients sonRivera called stating that they had their second opinion with Dr Roberts and have decided to transfer care to Dr Roberts. Location more convenient. Will update team. Allergies As of Date: 04/05/2023 Noted Allergy Reaction CODEINE 02/24/2001 Comments: hives CONTRAST DYE (IODINE) 03/24/2023 6 - Diarrhea Comments: Diarrhea after oral contrast. ERYTHROMYCIN 08/03/2014 8 - GI Upset METHYLPREDNISOLONE 08/03/2014 4 - Hives Comments: IV SULFA (SULFONAMIDE ANTIBIOTICS) 02/24/2001 Comments: hives Date Reviewed: 04/01/2023 Reviewed by: Joseluis Perez MD - Fully Assessed Reason for Visit: Care Coordination [3491] Prescriptions as of 04/05/2023 - ondansetron (ZOFRAN) 8 mg tablet Take 1 tablet by mouth every 6 hours as needed for nausea/vomiting. - levothyroxine (LEVOXYL) 25 mcg tablet Take 1 tablet by mouth once daily. Take on empty stomach. For Thyroid - mirtazapine (REMERON) 15 mg tablet Take 1 tablet by mouth daily at bedtime. - meloxicam (MOBIC) 15 mg tablet Take 1 tablet by mouth once daily. With food. - atorvastatin (LIPITOR) 40 mg tablet Take 1 tablet by mouth daily at bedtime. For cholesterol. - Methenamine Hippurate (HIPREX) 1 gram tablet Take 1 tablet by mouth twice daily with meals. - furosemide (LASIX) 20 mg tablet Take one tablet every day but if looses more than 10 pounds in a week then she needs to hold it. - buPROPion (WELLBUTRIN) 75 mg tablet Take it once a day in the morning. - sertraline (ZOLOFT) 25 mg tablet Take 1 tablet by mouth once daily. - sertraline (ZOLOFT) 100 mg tablet Take 1 tablet by mouth once daily. To take along with 25 mgs to make a total of 125 mgs - travoprost (TRAVATAN Z) 0.004 % ophthalmic drops Use 1 Drop in both eyes daily at bedtime. - brimonidine-timolol (COMBIGAN) 0.2-0.5 % ophthalmic solution Use 1 Drop in the right eye twice daily. Use at 9 AM and 3 PM - ondansetron orally disintegrating (ZOFRAN ODT) 4 mg disintegrating tablet Take 1 tablet by mouth every 6 hours as needed for nausea/vomiting. - phenazopyridine (PYRIDIUM, GERIDIUM) 200 mg tablet Take 1 tablet by mouth three times daily as needed. - aspirin, enteric coated (ECOTRIN LOW STRENGTH) 81 mg EC tablet Take 1 tablet by mouth once daily. - calcium carb/vitamin D3/vit K1 (VIACTIV ORAL) Take 1 tablet by mouth once daily. - L GASSERI/B BIFIDUM/B LONGUM ([facility] ORAL) Take by mouth. - CHOLECALCIFEROL, VITAMIN D3, (VITAMIN D3 ORAL) Take by mouth once daily. - LUTEIN ORAL Take by mouth. - MULTIVITAMIN TABLET PO Take one(1) tablet daily. 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 COAG (chronic open-angle glaucoma) - Both Eyes *07/06/2014 10/14/2017 Glaucomatous atrophy (cupping) of optic disc - *07/06/2014 08/05/2015 Visual field defect, unspecified - Right Eye [H*07/06/2014 08/05/2015 Other and combined forms of senile cataract - B*07/06/2014 05/23/2019 History of uterine cancer [Z85.42] 08/08/2014 Regular astigmatism - Both Eyes [H52.229] 11/08/2014 S/P laser cataract surgery [Z98.49] 11/22/2014 Lens replaced by other means - Left Eye [Z96.1] 11/29/2014 08/05/2015 Nasal step visual field defect of right eye [H5*08/05/2015 CRVO (central retinal vein occlusion) [H34.8192]08/05/2015 Pseudophakia of both eyes [Z96.1] 08/05/2015 Primary open angle glaucoma of both eyes, moder*10/01/2016 10/14/2017 Visual field loss [H53.40] 10/01/2016 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] 10/01/2016 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89] 06/23/2018 Sensorineural hearing loss, bilateral [H90.3] 06/28/2018 Elevated cancer antigen 125 (CA-125) [R97.1] 10/18/2018 Stable central retinal vein occlusion of right *02/15/2019 Prim (more content not included)... [facility] 03-29-2023 [facility] Telephone (GYNML) ROSITA KENNEDY ([id number]) 1945 F Date Time Provider Department 03/29/23 HENRY DONOVAN GYNML During your visit today, we recorded the following information about you: Henry Donovan, RN 03/29/2023 1:21 PM Signed Patients son, Rivera called. Had telephone visit with Dr Perez on 03-26-23. They have not decided on proceeding with treatments options Dr Perez reviewed with them. Requesting a second opinion to a [facility] POLITICAL RESEARCH SCIENTIST/ONC [place]. Message sent to specialist wound care in [place], she will speak with Dr Roberts then call Rivera back with appointment. He is also requesting a consult to [facility] in [place]. Will discuss with team Allergies As of Date: 03/29/2023 Noted Allergy Reaction CODEINE 02/24/2001 Comments: hives CONTRAST DYE (IODINE) 03/24/2023 6 - Diarrhea Comments: Diarrhea after oral contrast. ERYTHROMYCIN 08/03/2014 8 - GI Upset METHYLPREDNISOLONE 08/03/2014 4 - Hives Comments: IV SULFA (SULFONAMIDE ANTIBIOTICS) 02/24/2001 Comments: hives Date Reviewed: 03/24/2023 Reviewed by: Racheal Saldana APRN.ART PREPARATOR - Fully Assessed Reason for Visit: Care Coordination [6257] Cmt: POC Prescriptions as of 03/29/2023 - ondansetron (ZOFRAN) 8 mg tablet Take 1 tablet by mouth every 6 hours as needed for nausea/vomiting. - levothyroxine (LEVOXYL) 25 mcg tablet Take 1 tablet by mouth once daily. Take on empty stomach. For Thyroid - mirtazapine (REMERON) 15 mg tablet Take 1 tablet by mouth daily at bedtime. - meloxicam (MOBIC) 15 mg tablet Take 1 tablet by mouth once daily. With food. - atorvastatin (LIPITOR) 40 mg tablet Take 1 tablet by mouth daily at bedtime. For cholesterol. - Methenamine Hippurate (HIPREX) 1 gram tablet Take 1 tablet by mouth twice daily with meals. - furosemide (LASIX) 20 mg tablet Take one tablet every day but if looses more than 10 pounds in a week then she needs to hold it. - buPROPion (WELLBUTRIN) 75 mg tablet Take it once a day in the morning. - sertraline (ZOLOFT) 25 mg tablet Take 1 tablet by mouth once daily. - sertraline (ZOLOFT) 100 mg tablet Take 1 tablet by mouth once daily. To take along with 25 mgs to make a total of 125 mgs - travoprost (TRAVATAN Z) 0.004 % ophthalmic drops Use 1 Drop in both eyes daily at bedtime. - brimonidine-timolol (COMBIGAN) 0.2-0.5 % ophthalmic solution Use 1 Drop in the right eye twice daily. Use at 9 AM and 3 PM - ondansetron orally disintegrating (ZOFRAN ODT) 4 mg disintegrating tablet Take 1 tablet by mouth every 6 hours as needed for nausea/vomiting. - phenazopyridine (PYRIDIUM, GERIDIUM) 200 mg tablet Take 1 tablet by mouth three times daily as needed. - aspirin, enteric coated (ECOTRIN LOW STRENGTH) 81 mg EC tablet Take 1 tablet by mouth once daily. - calcium carb/vitamin D3/vit K1 (VIACTIV ORAL) Take 1 tablet by mouth once daily. - L GASSERI/B BIFIDUM/B LONGUM ([facility] OR[facility]) Take by mouth. - CHOLECALCIFEROL, VITAMIN D3, (VITAMIN D3 ORAL) Take by mouth once daily. - LUTEIN ORAL Take by mouth. - MULTIVITAMIN TABLET PO Take one(1) tablet daily. 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 COAG (chronic open-angle glaucoma) - Both Eyes *07/06/2014 10/14/2017 Glaucomatous atrophy (cupping) of optic disc - *07/06/2014 08/05/2015 Visual field defect, unspecified - Right Eye [H*07/06/2014 08/05/2015 Other and combined forms of senile cataract - B*07/06/2014 05/23/2019 History of uterine cancer [Z85.42] 08/08/2014 Regular astigmatism - Both Eyes [H52.229] 11/08/2014 S/P laser cataract surgery [Z98.49] 11/22/2014 Lens replaced by other means - Left Eye [Z96.1] 11/29/2014 08/05/2015 Nasal step visual field defect of right eye [H5*08/05/2015 CRVO (central retinal vein occlusion) [H34.8192]08/05/2015 Pseudophakia of both eyes [Z96.1] 08/05/2015 Primary open angle glaucoma of both eyes, moder*10/01/2016 10/14/2017 Visual field loss [H53.40] 10/01/2016 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 [facility] HNO ID: [id number] Author: Racheal Saldana APRN.ART PREPARATOR Service: Gynecology Oncology Author Type: Nurse Practitioner Type: Discharge Summary Filed: 03/24/2023 1:05 PM Note Text: Attestation signed by Joseluis Perez MD at 03/25/2023 1:42 PM Discussed with the ART PREPARATOR and agree with ART PREPARATOR's findings and plan as documented in the ART PREPARATOR's note. Joseluis Perez MD DISCHARGE NOTE (Patient Admitted Less than 48 Hours) SERVICE DATE: 03/24/2023 SERVICE TIME: 12:59 PM ADMISSION DATE: 03/23/2023 DISCHARGE DISPOSITION: Home with Self Care Discharge Physical Exam: VITAL SIGNS: BP 128/66 Pulse 72 Temp 36.8 ?C (98.2 ?F) (Oral) Resp 16 Ht 148 cm (4' 10.27) Wt 48.9 kg (107 lb 12.8 oz) SpO2 93% BMI 22.32 kg/m? *see HANDP from today DIET: Regular ACTIVITY AFTER DISCHARGE: Resume pre-hospital activity FOLLOW UP CARE REQUIRED: as scheduled DISCHARGE MEDICATIONS: Medication List CONTINUE taking these medications aspirin, enteric coated 81 mg EC tablet Commonly known as: ECOTRIN LOW STRENGTH Take 1 tablet by mouth once daily. atorvastatin 40 mg tablet Commonly known as: LIPITOR Take 1 tablet by mouth daily at bedtime. For cholesterol. brimonidine-timolol 0.2-0.5 % ophthalmic solution Commonly known as: COMBIGAN Use 1 Drop in the right eye twice daily. Use at 9 AM and 3 PM buPROPion 75 mg tablet Commonly known as: WELLBUTRIN Take it once a day in the morning. furosemide 20 mg tablet Commonly known as: LASIX Take one tablet every day but if looses more than 10 pounds in a week then she needs to hold it. levothyroxine 25 mcg tablet Commonly known as: LevoxyL Take 1 tablet by mouth once daily. Take on empty stomach. For Thyroid LUTEIN ORAL meloxicam 15 mg tablet Commonly known as: MOBIC Take 1 tablet by mouth once daily. With food. Methenamine Hippurate 1 gram tablet Commonly known as: HIPREX Take 1 tablet by mouth twice daily with meals. mirtazapine 15 mg tablet Commonly known as: REMERON Take 1 tablet by mouth daily at bedtime. multivitamin tablet Take one(1) tablet daily. ondansetron 8 mg tablet Commonly known as: ZOFRAN Take 1 tablet by mouth every 6 hours as needed for nausea/vomiting. ondansetron orally disintegrating 4 mg disintegrating tablet Commonly known as: ZOFRAN ODT Take 1 tablet by mouth every 6 hours as needed for nausea/vomiting. phenazopyridine 200 mg tablet Commonly known as: PYRIDIUM Take 1 tablet by mouth three times daily as needed. [employer] [facility] ORAL * sertraline 25 mg tablet Commonly known as: ZOLOFT Take 1 tablet by mouth once daily. * sertraline 100 mg tablet Commonly known as: ZOLOFT Take 1 tablet by mouth once daily. To take along with 25 mgs to make a total of 125 mgs travoprost 0.004 % ophthalmic drops Commonly known as: TRAVATAN Z Use 1 Drop in both eyes daily at bedtime. VIACTIV ORAL VITAMIN D3 ORAL * This list has 2 medication(s) that are the same as other medications prescribed for you. Read the directions carefully, and ask your doctor or other care provider to review them with you. FINAL DIAGNOSIS: Recurrent endometrial cancer. Admitted for re-challenge of Doxil as she had a previous reaction on 03/12/2023. Reaction noted with re-challenge. Was given IVF, solu-cortef, benadryl and epinephrine. Treatment cancelled. Scheduled to follow up with Dr. Perez this week to discuss plan of care and treatment options. Plan of care discussed with Provider, RN, Patient SIGNATURE: Racheal Saldana APRN.MALIK PATIENT NAME: Rosita Kennedy DATE: March 24, 2023 TIME: 12:59 PM [facility] HISTORY PHYSICALon HISTORY PHYSICAL HNO ID: [id number] Author: Racheal Saldana APRN.ART PREPARATOR Service: Gynecology Oncology Author Type: Nurse Practitioner Type: HANDP Filed: 03/24/2023 12:52 PM Note Text: GYNECOLOGY ONCOLOGY HISTORY AND PHYSICAL SERVICE DATE: 03/24/2023 Code Status: Not on file SERVICE TIME: 0900 Hospital Day: 1 Subjective HISTORY OF THE PRESENT ILLNESS Rosita Kennedy is a 77 year old year old Female with past medical history recurrent endometrial cancer, DVT and MS who presents for chemotherapy treatment (Doxil). Of note, she was treated with Doxil as OP on 03/12/2023. She immediately reacted (flushed, burning, chest tightness, hypertension). She was subsequently sent to ED for further monitoring. Discharged home in stable condition. She was admitted 03/23/2023 for re-challenge of Doxil. HISTORY: PAST MEDICAL HISTORY Diagnosis Date Cataracts, bilateral COAG (chronic open-angle glaucoma) CRVO (central retinal vein occlusion) Disorder of bone and cartilage, unspecified Multiple sclerosis (HCC) 2001 remission currently Pseudophakia, both eyes Pyelonephritis, unspecified 01/2010 Pyelonephritis Uterine cancer (HCC) 08/08/2014 PAST SURGICAL HISTORY Procedure Laterality Date DELIVERY ONLY , low cervical X3 COLONOSCOPY 05/18/2016 Dr. Gibbs. no bx taken COLONOSCOPY, GI 1998, 2009 EYE SURGERY PROCEDURE Left 04/11/2021 Xen Gel stent EYLEA (AFLIBERCEPT) 2MG INTRAVITREAL INJECTION OD (RIGHT EYE) Right 04/02/2016 #7 INSERT ANT SEGMENT DRAIN INT 11/21/2014 iStent Implantation Left Eye LIG/TRNSXJ FLP TUBE ABDL/VAG APPR UNI/BI 1976 PAST SURGICAL HISTORY OF right EYE SURGERY AGE 7 PAST SURGICAL HISTORY OF Right 11/06/2020 Xen Gel PULMONARY FUNCTION TEST 06/07/03 XCAPSL CTRC RMVL INSJ IO LENS PROSTH W/O ECP 11/21/2014 Cataract Extraction with PC IOL/Femtosecond Laser Left Eye FAMILY HISTORY Problem Relation Age of Onset Breast Cancer Sister Glaucoma Sister Heart Father mi Diabetes Father Hypertension Mother Alzheimer's Disease Mother Macular Degen Mother Glaucoma Mother Macular Degen Maternal Grandmother Social History Tobacco Use Smoking status: Never Smokeless tobacco: Never Vaping Use Vaping Use: Never used Substance Use Topics Alcohol use: Yes Comment: 1 drink per month not used in 1 year Drug use: No OB History T3 L3 SAB0 IAB0 Ectopic0 Multiple0 Live Births0 Comment: x3. ALLERGIES Allergen Reactions Codeine hives Contrast Dye [Iodin* Diarrhea Diarrhea after oral contrast. Erythromycin GI Upset Methylprednisolone Hives IV Sulfa (Sulfonamide * hives No current facility-administered medications on file prior to encounter. Current Outpatient Medications on File Prior to Encounter Medication Sig ondansetron (ZOFRAN) 8 mg tablet Take 1 tablet by mouth every 6 hours as needed for nausea/vomiting. levothyroxine (LEVOXYL) 25 mcg tablet Take 1 tablet by mouth once daily. Take on empty stomach. For Thyroid mirtazapine (REMERON) 15 mg tablet Take 1 tablet by mouth daily at bedtime. meloxicam (MOBIC) 15 mg tablet Take 1 tablet by mouth once daily. With food. atorvastatin (LIPITOR) 40 mg tablet Take 1 tablet by mouth daily at bedtime. For cholesterol. Methenamine Hippurate (HIPREX) 1 gram tablet Take 1 tablet by mouth twice daily with meals. furosemide (LASIX) 20 mg tablet Take one tablet every day but if looses more than 10 pounds in a week then she needs to hold it. buPROPion (WELLBUTRIN) 75 mg tablet Take it once a day in the morning. sertraline (ZOLOFT) 25 mg tablet Take 1 tablet by mouth once daily. sertraline (ZOLOFT) 100 mg tablet Take 1 tablet by mouth once daily. To take along with 25 mgs to make a total of 125 mgs travoprost (TRAVATAN Z) 0.004 % ophthalmic drops Use 1 Drop in both eyes daily at bedtime. brimonidine-timolol (COMBIGAN) 0.2-0.5 % ophthalmic solution Use 1 Drop in the right eye twice daily. Use at 9 AM and 3 PM ondansetron orally disintegrating (ZOFRAN ODT) 4 mg disintegrating tablet Take 1 tablet by mouth every 6 hours as needed for nausea/vomiting. phenazopyridine (PYRIDIUM, GERIDIUM) 200 mg tablet Take 1 tablet by mouth three times daily as needed. aspirin, enteric coated (ECOTRIN LOW STRENGTH) 81 mg EC tablet Take 1 tablet by mouth once daily. calcium carb/vitamin D3/vit K1 (VIACTIV ORAL) Take 1 tablet by mouth once daily. L GASSERI/B BIFIDUM/B LONGUM ([employer] [facility] ORAL) Take by mouth. CHOLECALCIFEROL, VITAMIN D3, (VITAMIN D3 ORAL) Take by mouth once daily. LUTEIN ORAL Take by mouth. MULTIVITAMIN TABLET PO Take one(1) tablet daily. ROS: GENERAL: No weight loss, malaise or fevers. NECK: Negative for goiter, pain or significant neck swelling RESPIRATORY: Negative for cough, hemoptysis, wheezing, COPD, dyspnea or shortness of breath CARDIOVASCULAR: Negative for chest pain, leg swelling, hypertension, CHF or palpitations (more content not included)... [facility] NURSING PROGon 03-24-2023 NURSING PROG HNO ID: [id number] Author: Francie Green RN Service: ? Author Type: Registered Nurse Type: Nursing Progress Note Filed: 03/24/2023 2:25 AM Note Text: Other: 0129 - pt co new onset throat tightness, VS stable, no co SOB, chest pain/tightness, no wheezing, no issues swallowing, page sent to swimming pool serviceperson registrar college or university/oc. Selina Grullon MD called to floor and said to give the PRN epinephrine that is ordered and placed new orders for PO benadryl to be given as well. No further orders at this time. [facility] NURSING PROGon 03-23-2023 NURSING PROG HNO ID: [id number] Author: Beth Collazo, RN Service: Nursing Author Type: Registered Nurse Type: Nursing Progress Note Filed: 03/23/2023 8:03 PM Note Text: Other: 1955 Premedications administered 30 minutes prior to initiating IV Doxorubicin. IV Doxorubicin initiated at 1850 via right chest mediport. within first minute of infusion patient c/o chest tightness, SOB. Bright red facial flushing, flushing of chest and B/L upper extremities. Infusion stopped, IV normal saline initiated. Medicated with prn IV Solu-Cortef. VS documented in Epic. Symptoms resolved within a few minutes once infusion was stopped. Call placed to POLITICAL RESEARCH SCIENTIST/Onc fellow on-call to report, return call received from Dr. Grullon. Message also left on voicemail to the chemo reaction line. [facility] NURSING PROG HNO ID: [id number] Author: Beth Collazo, MONTSE Service: Nursing Author Type: Registered Nurse Type: Nursing Progress Note Filed: 03/23/2023 5:35 PM Note Text: Transfer Note: PATIENT NAME: Rosita Kennedy Patient Location: [place] [address] [address] Room: [place] [address] [facility] approx 1700 in stable condition. Actions taken: No further actions taken at this time. Will continue to monitor and check with patient. Patient belongings with patient. [facility] 03-22-2023 [facility] Telephone (GYNML) KENNEDYROSITA ([id number]) 1945 F Date Time Provider Department 03/22/23 LINDSEY MULLER GYNML During your visit today, we recorded the following information about you: Lindsey Muller, MONTSE 03/22/2023 3:28 PM Signed Pt was scheduled for ROP chemo today. Pt's daughter, Veronica, called multiple times throughout the day requesting the status of bed availability at the hospital. Called and spoke with bed management who stated there are no open beds and will stay on list to be called in for when one is available. Winter updated with the plan and verbalized understanding. Allergies As of Date: 03/22/2023 Noted Allergy Reaction CODEINE 02/24/2001 Comments: hives DYE 03/04/2018 8 - GI Upset Comments: Diarrhea after CT oral contrast 01/2018 ERYTHROMYCIN 08/03/2014 8 - GI Upset METHYLPREDNISOLONE 08/03/2014 4 - Hives Comments: IV SULFA (SULFONAMIDE ANTIBIOTICS) 02/24/2001 Comments: hives Date Reviewed: 03/12/2023 Reviewed by: Garcia Yost RN - Fully Assessed Reason for Visit: 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 Worker - Other [3602] Cmt: ROP rescheduled for 03/23 Prescriptions as of 03/22/2023 - ondansetron (ZOFRAN) 8 mg tablet Take 1 tablet by mouth every 6 hours as needed for nausea/vomiting. - levothyroxine (LEVOXYL) 25 mcg tablet Take 1 tablet by mouth once daily. Take on empty stomach. For Thyroid - mirtazapine (REMERON) 15 mg tablet Take 1 tablet by mouth daily at bedtime. - meloxicam (MOBIC) 15 mg tablet Take 1 tablet by mouth once daily. With food. - atorvastatin (LIPITOR) 40 mg tablet Take 1 tablet by mouth daily at bedtime. For cholesterol. - Methenamine Hippurate (HIPREX) 1 gram tablet Take 1 tablet by mouth twice daily with meals. - furosemide (LASIX) 20 mg tablet Take one tablet every day but if looses more than 10 pounds in a week then she needs to hold it. - buPROPion (WELLBUTRIN) 75 mg tablet Take it once a day in the morning. - sertraline (ZOLOFT) 25 mg tablet Take 1 tablet by mouth once daily. - sertraline (ZOLOFT) 100 mg tablet Take 1 tablet by mouth once daily. To take along with 25 mgs to make a total of 125 mgs - travoprost (TRAVATAN Z) 0.004 % ophthalmic drops Use 1 Drop in both eyes daily at bedtime. - brimonidine-timolol (COMBIGAN) 0.2-0.5 % ophthalmic solution Use 1 Drop in the right eye twice daily. Use at 9 AM and 3 PM - ondansetron orally disintegrating (ZOFRAN ODT) 4 mg disintegrating tablet Take 1 tablet by mouth every 6 hours as needed for nausea/vomiting. - phenazopyridine (PYRIDIUM, GERIDIUM) 200 mg tablet Take 1 tablet by mouth three times daily as needed. - aspirin, enteric coated (ECOTRIN LOW STRENGTH) 81 mg EC tablet Take 1 tablet by mouth once daily. - calcium carb/vitamin D3/vit K1 (VIACTIV ORAL) Take 1 tablet by mouth once daily. - L GASSERI/B BIFIDUM/B LONGUM ([facility] HEALTH ORAL) Take by mouth. - CHOLECALCIFEROL, VITAMIN D3, (VITAMIN D3 ORAL) Take by mouth once daily. - LUTEIN ORAL Take by mouth. - MULTIVITAMIN TABLET PO Take one(1) tablet daily. 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 COAG (chronic open-angle glaucoma) - Both Eyes *07/06/2014 10/14/2017 Glaucomatous atrophy (cupping) of optic disc - *07/06/2014 08/05/2015 Visual field defect, unspecified - Right Eye [H*07/06/2014 08/05/2015 Other and combined forms of senile cataract - B*07/06/2014 05/23/2019 History of uterine cancer [Z85.42] 08/08/2014 Regular astigmatism - Both Eyes [H52.229] 11/08/2014 S/P laser cataract surgery [Z98.49] 11/22/2014 Lens replaced by other means - Left Eye [Z96.1] 11/29/2014 08/05/2015 Nasal step visual field defect of right eye [H5*08/05/2015 CRVO (central retinal vein occlusion) [H34.8192]08/05/2015 Pseudophakia of both eyes [Z96.1] 08/05/2015 Primary open angle glaucoma of both eyes, moder*10/01/2016 10/14/2017 Visual field loss [H53.40] 10/01/2016 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] 10/01/2016 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 (more content not included)... Normal [facility] CBC W Auto Differential pane l (Bld)on 03-19-2023 Basophils (Bld) [#/Vol] 0.05 10*3/uL Normal <0.11 [facility] Comment on above: Order Comment: Speci men Type: BLOOD SPECIMENOrdering Facility: [facility] Address: [address] [address] Performed By: #### 5 7021-8 ####[facility] LABCLIA [id number] [place] [address] [place] Basophils/100 WBC (Bld) 0.5 % Normal C [facility] Comment on above: Order Comment: Speci men Type: BLOOD SPECIMENOrdering Facility: [facility] Address: [address] [address] Performed By: #### 5 7021-8 ####[facility] LABCLIA [id number] [place] [address] [place] Differential cell count method Nom (Bld) Auto Normal [facility] Comment on above: Order Comment: Speci men Type: BLOOD SPECIMENOrdering Facility: [facility] Address: [address] [place] [address] Performed By: #### 5 7021-8 ####[facility] LABCLIA [id number] [place] [address] [place] Eosinophils (Bld) [#/Vol] 0.31 10*3/uL Normal <0.46 [facility] Comment on above: Order Comment: Speci men Type: BLOOD SPECIMENOrdering Facility: [facility] Address: [address] [place] [address] Performed By: #### 5 7021-8 ####[facility] LABCLIA [id number] [place] [address] [place] Eosinophils/100 WBC (Bld) 2.9 % Normal [facility] Comment on above: Order Comment: Speci men Type: BLOOD SPECIMENOrdering Facility: [facility] Address: [address] [place] [address] Performed By: #### 5 7021-8 ####[facility] LABCLIA [id number] [place] [address] [place] Erythrocyte distribution width (RBC) [Ratio] 16.6 % High 11.5-15.0 [facility] Comment on above: Order Comment: Speci men Type: BLOOD SPECIMENOrdering Facility: [facility] Address: [address] [place], [place] [address] Performed By: #### 5 7021-8 ####[facility] LABCLIA [id number] [place] [address] [place] Hematocrit (Bld) [Volume fraction] 38.8 % Normal 36.0-46.0 [facility] Comment on above: Order Comment: Speci men Type: BLOOD SPECIMENOrdering Facility: [facility] Address: [address] [address] Performed By: #### 5 7021-8 ####[facility] LABCLIA [id number] [place] [address] [place] Hemoglobin (Bld) [Mass/Vol] 11.7 g/dL Normal 11.5-15.5 [facility] Comment on above: Order Comment: Speci men Type: BLOOD SPECIMENOrdering Facility: [facility] Address: [address] Performed By: #### 5 7021-8 ####[facility] LABIA [id number] [place] [address] [place] Immature granulocytes (Bld) [#/Vol] 0.14 10*3/uL High <0.10 [facility] Comment on above: Order Comment: Speci men Type: BLOOD SPECIMENOrdering Facility: [facility] Address: [address] Performed By: #### 5 7021-8 ####[facility] LABIA [id number] [place] [address] [place] Immature granulocytes/100 WBC (Bld) 1.3 % Normal [facility] Comment on above: Order Comment: Speci men Type: BLOOD SPECIMENOrdering Facility: [facility] Address: [address] Performed By: #### 5 7021-8 ####[facility] LABIA [id number] [place] [address] [place] Lymphocytes (Bld) [#/Vol] 2.00 10*3/uL Normal 1.00-4.00 [facility] Comment on above: Order Comment: Speci men Type: BLOOD SPECIMENOrdering Facility: [facility] Address: [address] Performed By: #### 5 7021-8 ####[facility] LABIA [id number] [place] [address] [place] Lymphocytes/100 WBC (Bld) 18.7 % Normal [facility] Comment on above: Order Comment: Speci men Type: BLOOD SPECIMENOrdering Facility: [facility] Address: [address] [place] [address] Performed By: #### 5 7021-8 ####[facility] [id number] [place] [address] [place] MCH (RBC) [Entitic mass] 25.3 pg Low 26.0-34.0 [facility] Comment on above: Order Comment: Speci men Type: BLOOD SPECIMENOrdering Facility: [facility] Address: [address] [place] [address] Performed By: #### 5 7021-8 ####[facility] [id number] [address] [place] MCHC (RBC) [Mass/Vol] 30.2 g/dL Low 30.5-36.0 [facility] Comment on above: Order Comment: Speci men Type: BLOOD SPECIMENOrdering Facility: [facility] Address: [address] [place] [address] Performed By: #### 5 7021-8 ####[facility] [id number] [place] [address] [place] MCV (RBC) [Entitic vol] 84.0 fL Normal 80.0-100.0 C [facility] Comment on above: Order Comment: Speci men Type: BLOOD SPECIMENOrdering Facility: [facility] Address: [address] [place] [address] Performed By: #### 5 7021-8 ####[facility] [id number] [place] [address] [place] Monocytes (Bld) [#/Vol] 1.03 10*3/uL High <0.87 [facility] Comment on above: Order Comment: Speci men Type: BLOOD SPECIMENOrdering Facility: [facility] Address: [address] Performed By: #### 5 7021-8 ####[facility] LABCLIA [id number] [place] [address] [place] Monocytes/100 WBC (Bld) 9.6 % Normal [facility] Comment on above: Order Comment: Speci men Type: BLOOD SPECIMENOrdering Facility: [facility] Address: [address] Performed By: #### 5 7021-8 ####[facility] LABCLIA [id number] [place] [address] [place] Neutrophils (Bld) [#/Vol] 7.15 10*3/uL Normal 1.45-7.50 [facility] Comment on above: Order Comment: Speci men Type: BLOOD SPECIMENOrdering Facility: [facility] Address: [address] [place], [place] [address] Performed By: #### 5 7021-8 ####[facility] LABCLIA [id number] [address] [place] Neutrophils/100 WBC (Bld) 67.0 % Normal [facility] Comment on above: Order Comment: Speci men Type: BLOOD SPECIMENOrdering Facility: [facility] Address: [address] [place] [address] Performed By: #### 5 7021-8 ####[facility] LABIA [id number] [place] [address] [place] Nucleated RBC (Bld) [#/Vol] 10*3/uL Normal <0.01 [facility] Comment on above: Order Comment: Speci men Type: BLOOD SPECIMENOrdering Facility: [facility] Address: [address] [place], [place] [address] Performed By: #### 5 7021-8 ####[facility] LABIA [id number] [place] [address] [place] Nucleated RBC/100 WBC (Bld) [Ratio] 0.0 /100 WBC Normal [facility] Comment on above: Order Comment: Speci men Type: BLOOD SPECIMENOrdering Facility: [facility] Address: [address] Performed By: #### 5 7021-8 ####[facility] LABIA [id number] [place] [address] [place] Platelet mean volume (Bld) [Entitic vol] 10.8 fL Normal 9.0-12.7 [facility] Comment on above: Order Comment: Speci men Type: BLOOD SPECIMENOrdering Facility: [facility] Address: [address] [place], [place] [address] Performed By: #### 5 7021-8 ####[facility] LABIA [id number] [place] [address] [place] Platelets (Bld) [#/Vol] 350 10*3/uL Normal 150-400 [facility] Comment on above: Order Comment: Speci men Type: BLOOD SPECIMENOrdering Facility: [facility] Address: [address] [place] [address] Performed By: #### 5 7021-8 ####[facility] LABIA [id number] [place] [address] [place] RBC (Bld) [#/Vol] 4.62 10*6/uL Normal 3.90-5.20 [facility] Comment on above: Order Comment: Speci men Type: BLOOD SPECIMENOrdering Facility: [facility] Address: [address] Performed By: #### 5 7021-8 ####[facility] LABCLIA [id number] [place] [address] [place] WBC (Bld) [#/Vol] 10.68 10*3/uL Normal 3.70-11.00 [facility] Comment on above: Order Comment: Speci men Type: BLOOD SPECIMENOrdering Facility: [facility] Address: [address] [place] [address] Performed By: #### 5 7021-8 ####[facility] LABCLIA [id number] [address] [id number] [facility] CNPNon 03-19-2023 CNPN Telephone (GYNML) ROSITA KENNEDY ([id number]) 1945 F Date Time Provider Department 03/19/23 LINDSEY MULLER GYN During your visit today, we recorded the following information about you: Lindsey Muller RN 03/19/2023 10:32 AM Signed Called pt's son, Rivera, to discuss new plan of care after her recent doxil reaction. Explained that Dr. Byrne would like to re-challenge the pt in hospital. Reviewed the process of ROP chemo. Questions answered. Rivera and his sister will discuss the plan with their mother and let our office know what they decide. Contact information provided. Allergies As of Date: 03/19/2023 Noted Allergy Reaction CODEINE 02/24/2001 Comments: hives DYE 03/04/2018 8 - GI Upset Comments: Diarrhea after CT oral contrast 01/2018 ERYTHROMYCIN 08/03/2014 8 - GI Upset METHYLPREDNISOLONE 08/03/2014 4 - Hives Comments: IV SULFA (SULFONAMIDE ANTIBIOTICS) 02/24/2001 Comments: hives Date Reviewed: 03/12/2023 Reviewed by: Garcia Yost RN - Fully Assessed Reason for Visit: 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 Worker - Other [3602] Cmt: Discuss plan of care Prescriptions as of 03/19/2023 - ondansetron (ZOFRAN) 8 mg tablet Take 1 tablet by mouth every 6 hours as needed for nausea/vomiting. - levothyroxine (LEVOXYL) 25 mcg tablet Take 1 tablet by mouth once daily. Take on empty stomach. For Thyroid - mirtazapine (REMERON) 15 mg tablet Take 1 tablet by mouth daily at bedtime. - meloxicam (MOBIC) 15 mg tablet Take 1 tablet by mouth once daily. With food. - atorvastatin (LIPITOR) 40 mg tablet Take 1 tablet by mouth daily at bedtime. For cholesterol. - Methenamine Hippurate (HIPREX) 1 gram tablet Take 1 tablet by mouth twice daily with meals. - furosemide (LASIX) 20 mg tablet Take one tablet every day but if looses more than 10 pounds in a week then she needs to hold it. - buPROPion (WELLBUTRIN) 75 mg tablet Take it once a day in the morning. - sertraline (ZOLOFT) 25 mg tablet Take 1 tablet by mouth once daily. - sertraline (ZOLOFT) 100 mg tablet Take 1 tablet by mouth once daily. To take along with 25 mgs to make a total of 125 mgs - travoprost (TRAVATAN Z) 0.004 % ophthalmic drops Use 1 Drop in both eyes daily at bedtime. - brimonidine-timolol (COMBIGAN) 0.2-0.5 % ophthalmic solution Use 1 Drop in the right eye twice daily. Use at 9 AM and 3 PM - ondansetron orally disintegrating (ZOFRAN ODT) 4 mg disintegrating tablet Take 1 tablet by mouth every 6 hours as needed for nausea/vomiting. - phenazopyridine (PYRIDIUM, GERIDIUM) 200 mg tablet Take 1 tablet by mouth three times daily as needed. - aspirin, enteric coated (ECOTRIN LOW STRENGTH) 81 mg EC tablet Take 1 tablet by mouth once daily. - calcium carb/vitamin D3/vit K1 (VIACTIV ORAL) Take 1 tablet by mouth once daily. - L GASSERI/B BIFIDUM/B LONGUM ([facility] ORAL) Take by mouth. - CHOLECALCIFEROL, VITAMIN D3, (VITAMIN D3 ORAL) Take by mouth once daily. - LUTEIN ORAL Take by mouth. - MULTIVITAMIN TABLET PO Take one(1) tablet daily. 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 COAG (chronic open-angle glaucoma) - Both Eyes *07/06/2014 10/14/2017 Glaucomatous atrophy (cupping) of optic disc - *07/06/2014 08/05/2015 Visual field defect, unspecified - Right Eye [H*07/06/2014 08/05/2015 Other and combined forms of senile cataract - B*07/06/2014 05/23/2019 History of uterine cancer [Z85.42] 08/08/2014 Regular astigmatism - Both Eyes [H52.229] 11/08/2014 S/P laser cataract surgery [Z98.49] 11/22/2014 Lens replaced by other means - Left Eye [Z96.1] 11/29/2014 08/05/2015 Nasal step visual field defect of right eye [H5*08/05/2015 CRVO (central retinal vein occlusion) [H34.8192]08/05/2015 Pseudophakia of both eyes [Z96.1] 08/05/2015 Primary open angle glaucoma of both eyes, moder*10/01/2016 10/14/2017 Visual field loss [H53.40] 10/01/2016 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] 10/01/2016 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 Normal [facility] CNPN Telephone (HEMAWS) ROSITA KENNEDY ([id number]) 1945 F Date Time Provider Department 03/19/23 DOMO FRAZIER During your visit today, we recorded the following information about you: Usha Grant LPN 03/19/2023 11:48 AM Signed [facility] calling to add this pt to lab port schedule. Please add on at 2:00 today. [facility] staff to notify pt. Mahsa Wakefield LPN 03/19/2023 1:12 PM Signed Scheduled as directed. Mahsa Boucher Allergies As of Date: 03/19/2023 Noted Allergy Reaction CODEINE 02/24/2001 Comments: hives DYE 03/04/2018 8 - GI Upset Comments: Diarrhea after CT oral contrast 01/2018 ERYTHROMYCIN 08/03/2014 8 - GI Upset METHYLPREDNISOLONE 08/03/2014 4 - Hives Comments: IV SULFA (SULFONAMIDE ANTIBIOTICS) 02/24/2001 Comments: hives Date Reviewed: 03/12/2023 Reviewed by: Garcia Yost, RN - Fully Assessed Reason for Visit: Appointment [186] Prescriptions as of 03/19/2023 - ondansetron (ZOFRAN) 8 mg tablet Take 1 tablet by mouth every 6 hours as needed for nausea/vomiting. - levothyroxine (LEVOXYL) 25 mcg tablet Take 1 tablet by mouth once daily. Take on empty stomach. For Thyroid - mirtazapine (REMERON) 15 mg tablet Take 1 tablet by mouth daily at bedtime. - meloxicam (MOBIC) 15 mg tablet Take 1 tablet by mouth once daily. With food. - atorvastatin (LIPITOR) 40 mg tablet Take 1 tablet by mouth daily at bedtime. For cholesterol. - Methenamine Hippurate (HIPREX) 1 gram tablet Take 1 tablet by mouth twice daily with meals. - furosemide (LASIX) 20 mg tablet Take one tablet every day but if looses more than 10 pounds in a week then she needs to hold it. - buPROPion (WELLBUTRIN) 75 mg tablet Take it once a day in the morning. - sertraline (ZOLOFT) 25 mg tablet Take 1 tablet by mouth once daily. - sertraline (ZOLOFT) 100 mg tablet Take 1 tablet by mouth once daily. To take along with 25 mgs to make a total of 125 mgs - travoprost (TRAVATAN Z) 0.004 % ophthalmic drops Use 1 Drop in both eyes daily at bedtime. - brimonidine-timolol (COMBIGAN) 0.2-0.5 % ophthalmic solution Use 1 Drop in the right eye twice daily. Use at 9 AM and 3 PM - ondansetron orally disintegrating (ZOFRAN ODT) 4 mg disintegrating tablet Take 1 tablet by mouth every 6 hours as needed for nausea/vomiting. - phenazopyridine (PYRIDIUM, GERIDIUM) 200 mg tablet Take 1 tablet by mouth three times daily as needed. - aspirin, enteric coated (ECOTRIN LOW STRENGTH) 81 mg EC tablet Take 1 tablet by mouth once daily. - calcium carb/vitamin D3/vit K1 (VIACTIV ORAL) Take 1 tablet by mouth once daily. - L GASSERI/B BIFIDUM/B LONGUM ([facility] ORAL) Take by mouth. - CHOLECALCIFEROL, VITAMIN D3, (VITAMIN D3 ORAL) Take by mouth once daily. - LUTEIN ORAL Take by mouth. - MULTIVITAMIN TABLET PO Take one(1) tablet daily. 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 COAG (chronic open-angle glaucoma) - Both Eyes *07/06/2014 10/14/2017 Glaucomatous atrophy (cupping) of optic disc - *07/06/2014 08/05/2015 Visual field defect, unspecified - Right Eye [H*07/06/2014 08/05/2015 Other and combined forms of senile cataract - B*07/06/2014 05/23/2019 History of uterine cancer [Z85.42] 08/08/2014 Regular astigmatism - Both Eyes [H52.229] 11/08/2014 S/P laser cataract surgery [Z98.49] 11/22/2014 Lens replaced by other means - Left Eye [Z96.1] 11/29/2014 08/05/2015 Nasal step visual field defect of right eye [H5*08/05/2015 CRVO (central retinal vein occlusion) [H34.8192]08/05/2015 Pseudophakia of both eyes [Z96.1] 08/05/2015 Primary open angle glaucoma of both eyes, moder*10/01/2016 10/14/2017 Visual field loss [H53.40] 10/01/2016 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] 10/01/2016 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 Normal [facility] Comprehensive metabolic 2000 panelon 03-19-2023 Albumin [Mass/Vol] 4.3 g/dL Normal 3.9-4.9 [facility] Comment on above: Order Comment: Speci men Type: BLOOD SPECIMENOrdering Facility: [facility] Address: [address] [place], [place] [address] Performed By: #### 2 8, ####[facility] LABCLIA [id number] [place] [address] [place] ALP [Catalytic activity/Vol] 107 U/L Normal 34-123 [facility] Comment on above: Order Comment: Speci men Type: BLOOD SPECIMENOrdering Facility: [facility] Address: [address] [place] [address] Performed By: #### 2 4323-03, ####[facility] LABCLIA [id number] [place] [address] [place] ALT [Catalytic activity/Vol] 15 U/L Normal 7-38 [facility] Comment on above: Order Comment: Speci men Type: BLOOD SPECIMENOrdering Facility: [facility] Address: [address] [place], [place] [address] Performed By: #### 2 4323-03, ####[facility] LABCLIA [id number] [place] [address] [place] Anion gap [Moles/Vol] 13 mmol/L Normal 9-18 [facility] Comment on above: Order Comment: Speci men Type: BLOOD SPECIMENOrdering Facility: [facility] Address: [address] [place], [place] [address] Performed By: #### 2 8, ####[facility] LABCLIA [id number] [place] [address] [place] AST [Catalytic activity/Vol] 23 U/L Normal 13-35 [facility] Comment on above: Order Comment: Speci men Type: BLOOD SPECIMENOrdering Facility: [facility] Address: [address] [place], [place] [address] Performed By: #### 2 8, ####[facility] LABCLIA [id number] [place] [address] [place] Bilirubin [Mass/Vol] 0.3 mg/dL Normal 0.2-1.3 [facility] Comment on above: Order Comment: Speci men Type: BLOOD SPECIMENOrdering Facility: [facility] Address: [address] [place], [place] [address] Performed By: #### 2 8, ####[facility] LABCLIA [id number] [place] [address] [place] Calcium [Mass/Vol] 10.1 mg/dL Normal 8.5-10.2 [facility] Comment on above: Order Comment: Speci men Type: BLOOD SPECIMENOrdering Facility: [facility] Address: [address] [place], [place] [address] Performed By: #### 2 4323-03, ####[facility] LABCLIA [id number] [place] [address] [place] Chloride [Moles/Vol] 102 mmol/L Normal 97-105 [facility] Comment on above: Order Comment: Speci men Type: BLOOD SPECIMENOrdering Facility: [facility] Address: [address] [place], [place] [address] Performed By: #### 2 8, ####[facility]CLIA [id number] [place] [address] [place] CO2 [Moles/Vol] 24 mmol/L Normal 22-30 [facility] Comment on above: Order Comment: Speci men Type: BLOOD SPECIMENOrdering Facility: [facility] Address: [address] [id number] Performed By: #### 2 4323-8, ####[facility] LABIA [id number] [place] [address] [place] Creatinine [Mass/Vol] 0.98 mg/dL High 0.58-0.96 [facility] Comment on above: Order Comment: Speci men Type: BLOOD SPECIMENOrdering Facility: [facility] Address: [address] [address] Performed By: #### 2 4323-8, ####[facility] [id number] [place] [address] [place] ESTIMATED GLOMERULAR FILTRATION RATE 60 mL/min/1.73m??? Normal >=60 [facility] Comment on above: Order Comment: Speci men Type: BLOOD SPECIMENOrdering Facility: [facility] Address: [address] [address] Result Comment: Jefry mated Glomerular Filtration Rate (eGFR) is calculated using the 2020 CKD-EPI creatinine equation. This equation utilizes serum creatinine, sex, and age as parameters. The creatinine assay has traceable calibration to isotope dilution-mass spectrometry. Refer to KDIGO guidelines for clinical interpretation. In patients with unstable renal function, e.g. those with acute kidney injury, the eGFR may not accurately reflect actual GFR. Performed By: #### 2 4323-8, ####[facility] LABIA [id number] [place] [address] [place] Glucose [Mass/Vol] 90 mg/dL Normal 74-99 [facility] Comment on above: Order Comment: Speci men Type: BLOOD SPECIMENOrdering Facility: [facility] Address: [address] [address] Result Comment: The [place] Diabetes Association (ADA) provides guidance for cutoff values for fasting glucose and random glucose. The ADA defines fasting as no caloric intake for at least 8 hours. Fasting plasma glucose results between 100 to 125 mg/dL indicate increased risk for diabetes (prediabetes). Fasting plasma glucose results greater than or equal to 126 mg/dL meet the criteria for diagnosis of diabetes. In the absence of unequivocal hyperglycemia, results should be confirmed by repeat testing. In a patient with classic symptoms of hyperglycemia or hyperglycemic crisis, random plasma glucose results greater than or equal to 200 mg/dL meet the criteria for diagnosis of diabetes. Reference: Standards of Medical Care in Diabetes 2016, [place] [employer] Association. Diabetes Care. 2016.39(Suppl 1). Performed By: #### 2 4323-03, ####[facility] LABCLIA [id number] [place] [address] [place] Potassium [Moles/Vol] 4.5 mmol/L Normal 3.7-5.1 [facility] Comment on above: Order Comment: Speci men Type: BLOOD SPECIMENOrdering Facility: [facility] Address: [address] [place] [address] Performed By: #### 2 4323-03, ####[facility] LABCLIA [id number] [place] [address] [place] Protein [Mass/Vol] 6.9 g/dL Normal 6.3-8.0 [facility] Comment on above: Order Comment: Speci men Type: BLOOD SPECIMENOrdering Facility: [facility] Address: [address] Performed By: #### 2 4323-03, ####[facility] LABCLIA [id number] [facility] [place] [address] [place] Sodium [Moles/Vol] 139 mmol/L Normal 136-144 [facility] Comment on above: Order Comment: Speci men Type: BLOOD SPECIMENOrdering Facility: [facility] Address: [address] Performed By: #### 2 43211-04, ####[facility] LABCLIA [id number] [address] [place] Urea nitrogen [Mass/Vol] 28 mg/dL High 03-19 [facility] Comment on above: Order Comment: Speci men Type: BLOOD SPECIMENOrdering Facility: [facility] Address: [address] [place] [address] Performed By: #### 2 4323-8, 57781-2 ####[facility] LABCLIA [id number] [address] [place] Magnesium SerPl-mCncon 03-19 Magnesium [Mass/Vol] 2.1 mg/dL Normal 1.7-2.3 [facility] Comment on above: Order Comment: Roc tan Type: BLOOD SPECIMENOrdering Facility: [facility] Address: [address] [place] [address] Performed By: #### 2 4323-8, 01876-5 ####[facility] LABCLIA [id number] [address] [place] CNPNon 03-16-2023 CNPN Telephone (GYNML) ROSITA KENNEDY ([id number]) 1945 F Date Time Provider Department 03/16/23 DEBORAH BOYD GYNML During your visit today, we recorded the following information about you: Deborah Boyd RN 03/16/2023 2:48 PM Signed Patient's son, Rivera, called the office inquiring about patient's lab appointment on , 03/18 as well as the plan going forward since his mother had a reaction to treatment last week. Per Lindsey Muller RN, we can cancel the 03/18 lab appointment since the patient is not currently getting treatment and she will discuss plan with Dr. Perez and/or Henry Donovan RN, and then update the son. 03/18 lab appointment canceled. Deborah Boyd RN Allergies As of Date: 03/16/2023 Noted Allergy Reaction CODEINE 02/24/2001 Comments: hives DYE 03/04/2018 8 - GI Upset Comments: Diarrhea after CT oral contrast 01/2018 ERYTHROMYCIN 08/03/2014 8 - GI Upset METHYLPREDNISOLONE 08/03/2014 4 - Hives Comments: IV SULFA (SULFONAMIDE ANTIBIOTICS) 02/24/2001 Comments: hives Date Reviewed: 03/12/2023 Reviewed by: Garcia Yost RN - Fully Assessed Reason for Visit: Appointment [186] Patient Update [1234] Prescriptions as of 03/16/2023 - ondansetron (ZOFRAN) 8 mg tablet Take 1 tablet by mouth every 6 hours as needed for nausea/vomiting. - levothyroxine (LEVOXYL) 25 mcg tablet Take 1 tablet by mouth once daily. Take on empty stomach. For Thyroid - mirtazapine (REMERON) 15 mg tablet Take 1 tablet by mouth daily at bedtime. - meloxicam (MOBIC) 15 mg tablet Take 1 tablet by mouth once daily. With food. - atorvastatin (LIPITOR) 40 mg tablet Take 1 tablet by mouth daily at bedtime. For cholesterol. - Methenamine Hippurate (HIPREX) 1 gram tablet Take 1 tablet by mouth twice daily with meals. - furosemide (LASIX) 20 mg tablet Take one tablet every day but if looses more than 10 pounds in a week then she needs to hold it. - buPROPion (WELLBUTRIN) 75 mg tablet Take it once a day in the morning. - sertraline (ZOLOFT) 25 mg tablet Take 1 tablet by mouth once daily. - sertraline (ZOLOFT) 100 mg tablet Take 1 tablet by mouth once daily. To take along with 25 mgs to make a total of 125 mgs - travoprost (TRAVATAN Z) 0.004 % ophthalmic drops Use 1 Drop in both eyes daily at bedtime. - brimonidine-timolol (COMBIGAN) 0.2-0.5 % ophthalmic solution Use 1 Drop in the right eye twice daily. Use at 9 AM and 3 PM - ondansetron orally disintegrating (ZOFRAN ODT) 4 mg disintegrating tablet Take 1 tablet by mouth every 6 hours as needed for nausea/vomiting. - phenazopyridine (PYRIDIUM, GERIDIUM) 200 mg tablet Take 1 tablet by mouth three times daily as needed. - aspirin, enteric coated (ECOTRIN LOW STRENGTH) 81 mg EC tablet Take 1 tablet by mouth once daily. - calcium carb/vitamin D3/vit K1 (VIACTIV ORAL) Take 1 tablet by mouth once daily. - L GASSERI/B BIFIDUM/B LONGUM ([facility] ORAL) Take by mouth. - CHOLECALCIFEROL, VITAMIN D3, (VITAMIN D3 ORAL) Take by mouth once daily. - LUTEIN ORAL Take by mouth. - MULTIVITAMIN TABLET PO Take one(1) tablet daily. 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 COAG (chronic open-angle glaucoma) - Both Eyes *07/06/2014 10/14/2017 Glaucomatous atrophy (cupping) of optic disc - *07/06/2014 08/05/2015 Visual field defect, unspecified - Right Eye [H*07/06/2014 08/05/2015 Other and combined forms of senile cataract - B*07/06/2014 05/23/2019 History of uterine cancer [Z85.42] 08/08/2014 Regular astigmatism - Both Eyes [H52.229] 11/08/2014 S/P laser cataract surgery [Z98.49] 11/22/2014 Lens replaced by other means - Left Eye [Z96.1] 11/29/2014 08/05/2015 Nasal step visual field defect of right eye [H5*08/05/2015 CRVO (central retinal vein occlusion) [H34.8192]08/05/2015 Pseudophakia of both eyes [Z96.1] 08/05/2015 Primary open angle glaucoma of both eyes, moder*10/01/2016 10/14/2017 Visual field loss [H53.40] 10/01/2016 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 Normal [facility] Absolute lymphocyte countOrd ered By: Carlos Enrique Peguero on 03-12-2023 Lymphocytes Auto (Unsp spec) [#/Vol] 1.07 10*3/uL 0.83-4.51 [facility] Basophil percentageOrdered B y: Carlos Enrique Peguero on 03-12-2023 Basophil percentage Not Reportable [facility] Chloride [Moles/Vol] 107 mmol/L 98-107 [facility] Glucose [Mass/Vol] 120 mg/dL 74-106 [facility] Comment on above: Fasting Glucose resu lt from 100 to 125 mg/dL suggests IMPAIRED HOMEOSTASIS per A.D.A. criteria. Neutrophils (Bld) [#/Vol] 12.2 10*3/uL 2.0-7.7 [facility] Potassium [Moles/Vol] 3.7 mmol/L 3.5-5.1 [facility] Sodium [Moles/Vol] 140 mmol/L 136-145 [facility] WBC (Bld) [#/Vol] 13.4 10*3/uL 4.4-11.0 [facility] Blood band neutrophil count as percentage of total leukocytesOrdered By: Carlos Enrique Peguero on 03-12-2023 Band form neutrophils/100 WBC (Bld) 6 % 0-5 [facility] Blood eosinophils/100 leukoc ytesOrdered By: Carlos Enrique Peguero on 03-12-2023 Eosinophils/100 WBC (Bld) 1 % 0-5 [facility] Blood erythrocytes count (nu mber/volume)Ordered By: Carlos Enrique Peguero on 03-12-2023 RBC (Bld) [#/Vol] 4.43 10*6/uL 4.2-5.4 [facility] Blood hemoglobin measurement (mass/volume)Ordered By: Carlos Enrique Peguero on 03-12-2023 Hemoglobin (Bld) [Mass/Vol] 11.1 g/dL 12.0-15.0 [facility] Blood lymphocytes/100 leukoc ytesOrdered By: Carlos Enrique Peguero on 03-12-2023 Lymphocytes/100 WBC (Bld) 8 % 19-41 [facility] Blood platelet adequacy dete ction by light microscopyOrdered By: Carlos Enrique Peguero on 03-12-2023 Platelets LM Ql (Bld) ADEQUATE ADEQ [facility] Blood platelet mean volumeOr dered By: Carlos Enrique Peguero on 03-12-2023 Platelet mean volume (Bld) [Entitic vol] 9.5 fL 6.2-12.0 [facility] Blood segmented neutrophils/ 100 leukocytesOrdered By: Carlos Enrique Peguero on 03-12-2023 Segmented neutrophils/100 WBC (Bld) 85 % 47-70 [facility] CBC W Auto Differential pane l (Bld)on 03-12-2023 Basophils (Bld) [#/Vol] 0.04 10*3/uL <0.11 k/uL [facility] Basophils/100 WBC (Bld) 0.5 % [facility] Differential cell count method Nom (Bld) Auto [facility] Eosinophils (Bld) [#/Vol] 0.33 10*3/uL <0.46 k/uL [facility] Eosinophils/100 WBC (Bld) 4.1 % [facility] Erythrocyte distribution width (RBC) [Ratio] 16.7 % High 11.5 - 15.0 % [facility] Hematocrit (Bld) [Volume fraction] 38.7 % 36.0 - 46.0 % [facility] Hemoglobin (Bld) [Mass/Vol] 11.9 g/dL 11.5 - 15.5 g/dL [facility] Immature granulocytes (Bld) [#/Vol] 0.04 10*3/uL <0.10 k/uL [facility] Immature granulocytes/100 WBC (Bld) 0.5 % [facility] Lymphocytes (Bld) [#/Vol] 1.92 10*3/uL 1.00 - 4.00 k/uL [facility] Lymphocytes/100 WBC (Bld) 24.0 % [facility] MCH (RBC) [Entitic mass] 25.4 pg Low 26.0 - 34.0 pg [facility] MCHC (RBC) [Mass/Vol] 30.7 g/dL 30.5 - 36.0 g/dL [facility] MCV (RBC) [Entitic vol] 82.5 fL 80.0 - 100.0 fL [facility] Monocytes (Bld) [#/Vol] 0.70 10*3/uL <0.87 k/uL [facility] Monocytes/100 WBC (Bld) 8.7 % [facility] Neutrophils (Bld) [#/Vol] 4.98 10*3/uL 1.45 - 7.50 k/uL [facility] Neutrophils/100 WBC (Bld) 62.2 % [facility] Nucleated RBC (Bld) [#/Vol] <0.01 k/uL [facility] Nucleated RBC/100 WBC (Bld) [Ratio] 0.0 /100 WBC [facility] Platelet mean volume (Bld) [Entitic vol] 9.5 fL 9.0 - 12.7 fL [facility] Platelets (Bld) [#/Vol] 342 10*3/uL 150 - 400 k /uL [facility] RBC (Bld) [#/Vol] 4.69 10*6/uL 3.90 - 5.2 0 m/uL [facility] WBC (Bld) [#/Vol] 8.01 10*3/uL 3.70 - 11. 00 k/uL [facility] Basophils (Bld) [#/Vol] 0.04 10*3/uL Normal <0.11 [facility] Comment on above: Order Comment: Speci men Type: BLOOD SPECIMENOrdering Facility: [facility] Address: [address] [place] [id number] Performed By: #### 5 7021-8 ####[facility] CRYSTAL HOLMAN [id number] [place] [address] [place] Basophils/100 WBC (Bld) 0.5 % Normal C [facility] Comment on above: Order Comment: Speci men Type: BLOOD SPECIMENOrdering Facility: [facility] Address: [address] [place] [address] Performed By: #### 5 7021-8 ####[facility] [id number] [place] [address] [place] Differential cell count method Nom (Bld) Auto Normal [facility] Comment on above: Order Comment: Speci men Type: BLOOD SPECIMENOrdering Facility: [facility] Address: [address] [place] [address] Performed By: #### 5 7021-8 ####[facility] [id number] [place] [address] [place] Eosinophils (Bld) [#/Vol] 0.33 10*3/uL Normal <0.46 [facility] Comment on above: Order Comment: Speci men Type: BLOOD SPECIMENOrdering Facility: [facility] Address: [address] [place] [address] Performed By: #### 5 7021-8 ####[facility] [id number] [place] [address] [place] Eosinophils/100 WBC (Bld) 4.1 % Normal [facility] Comment on above: Order Comment: Speci men Type: BLOOD SPECIMENOrdering Facility: [facility] Address: [address] [place] [address] Performed By: #### 5 7021-8 ####[facility] [id number] [place] [address] [place] Erythrocyte distribution width (RBC) [Ratio] 16.7 % High 11.5-15.0 [facility] Comment on above: Order Comment: Speci men Type: BLOOD SPECIMENOrdering Facility: [facility] Address: [address] [place] [address] Performed By: #### 5 7021-8 ####[facility] KENIASAURABHBerna [id number] [place] [address] [place] Hematocrit (Bld) [Volume fraction] 38.7 % Normal 36.0-46.0 [facility] Comment on above: Order Comment: Speci men Type: BLOOD SPECIMENOrdering Facility: [facility] Address: [address] [place] [address] Performed By: #### 5 7021-8 ####[facility]ITALJUL[facility] [id number] [place] [address] [place] Hemoglobin (Bld) [Mass/Vol] 11.9 g/dL Normal 11.5-15.5 [facility] Comment on above: Order Comment: Speci men Type: BLOOD SPECIMENOrdering Facility: [facility] Address: [address] [place] [address] Performed By: #### 5 7021-8 ####[facility] [id number] [place] [address] [place] Immature granulocytes (Bld) [#/Vol] 0.04 10*3/uL Normal <0.10 [facility] Comment on above: Order Comment: Speci men Type: BLOOD SPECIMENOrdering Facility: [facility] Address: [address] [place], [place] [address] Performed By: #### 5 7021-8 ####[facility]ITALNCLIA [id number] [place] [address] [place] Immature granulocytes/100 WBC (Bld) 0.5 % Normal [facility] Comment on above: Order Comment: Speci men Type: BLOOD SPECIMENOrdering Facility: [facility] Address: [address] [place] [address] Performed By: #### 5 7021-8 ####[facility]ITALNCLIA [id number] [place] [address] [place] Lymphocytes (Bld) [#/Vol] 1.92 10*3/uL Normal 1.00-4.00 [facility] Comment on above: Order Comment: Speci men Type: BLOOD SPECIMENOrdering Facility: [facility] Address: [address] [place] [address] Performed By: #### 5 7021-8 ####[facility]ITALNCGAR[facility] [id number] [place] [address] [place] Lymphocytes/100 WBC (Bld) 24.0 % Normal [facility] Comment on above: Order Comment: Speci men Type: BLOOD SPECIMENOrdering Facility: [facility] Address: [address] [place] [address] Performed By: #### 5 7021-8 ####[facility]ITALNCLI [id number] [place] [address] [place] MCH (RBC) [Entitic mass] 25.4 pg Low 26.0-34.0 [facility] Comment on above: Order Comment: Speci men Type: BLOOD SPECIMENOrdering Facility: [facility] Address: [address] [place] [address] Performed By: #### 5 7021-8 ####[facility]ITALNCLIA [id number] [place] [address] [place] MCHC (RBC) [Mass/Vol] 30.7 g/dL Normal 30.5-36.0 [facility] Comment on above: Order Comment: Speci men Type: BLOOD SPECIMENOrdering Facility: [facility] Address: [address] [place] [address] Performed By: #### 5 7021-8 ####[facility]ITALNCLI [id number] [place] [address] [place] MCV (RBC) [Entitic vol] 82.5 fL Normal 80.0-100.0 C [facility] Comment on above: Order Comment: Speci men Type: BLOOD SPECIMENOrdering Facility: [facility] Address: [address] [place] [address] Performed By: #### 5 7021-8 ####[facility] [id number] [place] [address] [place] Monocytes (Bld) [#/Vol] 0.70 10*3/uL Normal <0.87 [facility] Comment on above: Order Comment: Speci men Type: BLOOD SPECIMENOrdering Facility: [facility] Address: [address] [place] [address] Performed By: #### 5 7021-8 ####[facility] [id number] [place] [address] [place] Monocytes/100 WBC (Bld) 8.7 % Normal C [facility] Comment on above: Order Comment: Speci men Type: BLOOD SPECIMENOrdering Facility: [facility] Address: [address] [place] [address] Performed By: #### 5 7021-8 ####[facility] [id number] [place] [address] [place] Neutrophils (Bld) [#/Vol] 4.98 10*3/uL Normal 1.45-7.50 [facility] Comment on above: Order Comment: Speci men Type: BLOOD SPECIMENOrdering Facility: [facility] Address: [address] [place] [address] Performed By: #### 5 7021-8 ####[facility] HOSPITALLI [id number] [place] [address] [place] Neutrophils/100 WBC (Bld) 62.2 % Normal [facility] Comment on above: Order Comment: Speci men Type: BLOOD SPECIMENOrdering Facility: [facility] Address: [address] [place] [address] Performed By: #### 5 7021-8 ####[facility] [id number] [place] [address] [place] Nucleated RBC (Bld) [#/Vol] 10*3/uL Normal <0.01 [facility] Comment on above: Order Comment: Speci men Type: BLOOD SPECIMENOrdering Facility: [facility] Address: [address] [place] [address] Performed By: #### 5 7021-8 ####[facility]ITALNCGAR[facility] [id number] [place] [address] [place] Nucleated RBC/100 WBC (Bld) [Ratio] 0.0 /100 WBC Normal [facility] Comment on above: Order Comment: Speci men Type: BLOOD SPECIMENOrdering Facility: [facility] Address: [address] [place] [address] Performed By: #### 5 7021-8 ####[facility]ITALNCGAR[facility] [id number] [place] [address] [place] Platelet mean volume (Bld) [Entitic vol] 9.5 fL Normal 9.0-12.7 [facility] Comment on above: Order Comment: Speci men Type: BLOOD SPECIMENOrdering Facility: [facility] Address: [address] [place] [address] Performed By: #### 5 7021-8 ####[facility] [id number] [place] [address] [place] Platelets (Bld) [#/Vol] 342 10*3/uL Normal 150-400 [facility] Comment on above: Order Comment: Speci men Type: BLOOD SPECIMENOrdering Facility: [facility] Address: [address] Performed By: #### 5 7021-8 ####[facility] CRYSTAL KENIANCLIA [id number] [place] [address] [place] RBC (Bld) [#/Vol] 4.69 10*6/uL Normal 3.90-5.20 [facility] Comment on above: Order Comment: Speci men Type: BLOOD SPECIMENOrdering Facility: [facility] Address: [address] [place] [address] Performed By: #### 5 7021-8 ####[facility] MARGOCLAYSVILLENCLIA [id number] [place] [address] [place] WBC (Bld) [#/Vol] 8.01 10*3/uL Normal 3.70-11.00 [facility] Comment on above: Order Comment: Speci men Type: BLOOD SPECIMENOrdering Facility: [facility] Address: [address] [place] [address] Performed By: #### 5 7021-8 ####[facility] HOSPITALNCROSEA [id number] [address] [place] CNPLeilani 03-12-2023 [facility] ROSITA KENNEDY ([id number]) 1945 F Date Time Provider Department 03/12/23 JOSELUIS PEREZ During your visit today, we recorded the following information about you: Garcia Yost RN 03/12/2023 3:[address] Perez, Pt came in today for her first doxorubicin infusion. Doxorubicin infusion stopped 10 due to pt being flushed and developing chest tightness. Pt received premeds that were ordered prior to chemotherapy and also received an additional 25mg IV benadryl and 100mg of solucortef. Pt was transferred to [facility] through squad due to continuing chest tightness. Please keep us updated about the plan of care for this pt. Thank you, Garcia Donovan RN 03/12/2023 3:38 PM Signed Spoke with Garcia at [place] infusion suite. 10ml DOXIL infused when patient became flushed/ BP elevated 170/110 and chest tightness. BP returned to normal but chest tightness persisted. Patient was transferred via squad to [facility] . Will call Rivera, patients son. Dr Wu aware. Allergies As of Date: 03/12/2023 Noted Allergy Reaction CODEINE 02/24/2001 Comments: hives DYE 03/04/2018 8 - GI Upset Comments: Diarrhea after CT oral contrast 01/2018 ERYTHROMYCIN 08/03/2014 8 - GI Upset METHYLPREDNISOLONE 08/03/2014 4 - Hives Comments: IV SULFA (SULFONAMIDE ANTIBIOTICS) 02/24/2001 Comments: hives Date Reviewed: 03/12/2023 Reviewed by: Garcia Yost RN - Fully Assessed Reason for Visit: Chemotherapy Treatment [771] Prescriptions as of 03/12/2023 - ondansetron (ZOFRAN) 8 mg tablet Take 1 tablet by mouth every 6 hours as needed for nausea/vomiting. - levothyroxine (LEVOXYL) 25 mcg tablet Take 1 tablet by mouth once daily. Take on empty stomach. For Thyroid - mirtazapine (REMERON) 15 mg tablet Take 1 tablet by mouth daily at bedtime. - meloxicam (MOBIC) 15 mg tablet Take 1 tablet by mouth once daily. With food. - atorvastatin (LIPITOR) 40 mg tablet Take 1 tablet by mouth daily at bedtime. For cholesterol. - Methenamine Hippurate (HIPREX) 1 gram tablet Take 1 tablet by mouth twice daily with meals. - furosemide (LASIX) 20 mg tablet Take one tablet every day but if looses more than 10 pounds in a week then she needs to hold it. - buPROPion (WELLBUTRIN) 75 mg tablet Take it once a day in the morning. - sertraline (ZOLOFT) 25 mg tablet Take 1 tablet by mouth once daily. - sertraline (ZOLOFT) 100 mg tablet Take 1 tablet by mouth once daily. To take along with 25 mgs to make a total of 125 mgs - travoprost (TRAVATAN Z) 0.004 % ophthalmic drops Use 1 Drop in both eyes daily at bedtime. - brimonidine-timolol (COMBIGAN) 0.2-0.5 % ophthalmic solution Use 1 Drop in the right eye twice daily. Use at 9 AM and 3 PM - ondansetron orally disintegrating (ZOFRAN ODT) 4 mg disintegrating tablet Take 1 tablet by mouth every 6 hours as needed for nausea/vomiting. - phenazopyridine (PYRIDIUM, GERIDIUM) 200 mg tablet Take 1 tablet by mouth three times daily as needed. - aspirin, enteric coated (ECOTRIN LOW STRENGTH) 81 mg EC tablet Take 1 tablet by mouth once daily. - calcium carb/vitamin D3/vit K1 (VIACTIV ORAL) Take 1 tablet by mouth once daily. - L GASSERI/B BIFIDUM/B LONGUM ([facility] ORAL) Take by mouth. - CHOLECALCIFEROL, VITAMIN D3, (VITAMIN D3 ORAL) Take by mouth once daily. - LUTEIN ORAL Take by mouth. - MULTIVITAMIN TABLET PO Take one(1) tablet daily. 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 08/05/2015 Visual field defect, unspecified - Right Eye [H*07/06/2014 08/05/2015 Other and combined forms of senile cataract - B*07/06/2014 05/23/2019 History of uterine cancer [Z85.42] 08/08/2014 Regular astigmatism - Both Eyes [H52.229] 11/08/2014 S/P laser cataract surgery [Z98.49] 11/22/2014 Lens replaced by other means - Left Eye [Z96.1] 11/29/2014 08/05/2015 Nasal step visual field defect of right eye [H5*08/05/2015 CRVO (central retinal vein occlusion) [H34.8192]08/05/2015 Pseudophakia of both eyes [Z96.1] 08/05/2015 Primary open angle glaucoma of both eyes, moder*10/01/2016 10/14/2017 Visual field loss [H53.40] 10/01/2016 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 Normal [facility] Determination of erythrocyte mean corpuscular volume (MCV)Ordered By: Carlos Enrique Peguero on 03-12-2023 MCV (RBC) [Entitic vol] 84.0 fL 81-99 [facility] Hematocrit Auto (Bld) [Volum e fraction]Ordered By: Carlos Enrique Peguero on 03-12-2023 Hematocrit (Bld) [Volume fraction] 37.2 % 37-47 [facility] Laboratory - Chemistry and C hemistry - challengeOrdered By: Carlos Enrique Peguero on 03-12-2023 CO2 [Moles/Vol] 28.0 mmol/L 21.0-32.0 [facility] Urea nitrogen/Creatinine [Mass ratio] 21.9 mg/mg 10-20 [facility] Laboratory - Hematology and Cell countsOrdered By: Carlos Enrique Peguero on 03-12-2023 Erythrocyte distribution width (RBC) [Entitic vol] 51.0 fL 35.1-43.9 [facility] Erythrocyte distribution width (RBC) [Ratio] 16.6 % 11.6-14.6 [facility] MCH (RBC) [Entitic mass] 25.1 pg 27.0-32.0 [facility] MCHC Auto (RBC) [Mass/Vol]Or dered By: Carlos Enrique Peguero on 03-12-2023 MCHC (RBC) [Mass/Vol] 29.8 g/dL 32-36 [facility] No Panel InformationOrdered By: Carlos Enrique Peguero on 03-12-2023 Estimated Creatinine Clearance Calc 36.37 ml/min [facility] Estimated GFR (MDRD) Amer 73 mL/min >60 [facility] Comment on above: GFR Calc Estimated GFR (MDRD) Non-Af Amer 60 mL/min >60 [facility] Comment on above: Non- GFR Calc Troponin I High Sensitivity 8 pg/mL 3.0-54.0 [facility] Comment on above: Please Note: [place] t Units and Gender Specific Reference Ranges. For more information see Policy Stat Procedure [place] High Sensitivity Troponin (TNIH) and attachments. Platelets bldOrdered By: Jose Peguero on 03-12-2023 Platelets (Bld) [#/Vol] 283 10*3/uL 150-450 [facility] RBC morphologyOrdered By: Arnulfo Kenny on 03-12-2023 RBC morphology finding Nom (Bld) NORM C+C NORMAL NORM C&C [facility] Review by pathologistOrdered By: Carlos Enrique Peguero on 03-12-2023 Pathologist review Tito (Unsp spec) [Interp] Tiffanie lira [facility] Pathologist review Tito (Unsp spec) [Interp] Reviewed [facility] Comment on above: Previous reported re sult: Tiffanie lira Edited by: RGOOD on 03/16/23:1214Neutrophilic leukocytosis with left shift. Clinical correlation necessary.Joe Harmon M.D. 03/16/23 AMENDED REPORT 03/16/23 1214 PATH REV previously reported as: Tiffanie lira Serum or plasma calcium felipe urement (mass/volume)Ordered By: Carlos Enrique Peguero on 03-12-2023 Calcium [Mass/Vol] 8.7 mg/dL 8.5-10.1 [facility] Serum or plasma creatinine m easurement (mass/volume)Ordered By: Carlos Enrique Peguero on 03-12-2023 Creatinine [Mass/Vol] 0.96 mg/dL 0.55-1.02 [facility] Comment on above: The validity of the calculated GFR & GFRAA in patients over 70 years has not been determined. Clinical correlation is essential. Serum or plasma urea nitroge n measurement (mass/volume)Ordered By: Carlos Enrique Peguero on 03-12-2023 Urea nitrogen [Mass/Vol] 21 mg/dL 03-16 [facility] Thin prep Papanicolaou smear with manual screeningOrdered By: Carlos Enrique Peguero on 03-12-2023 Thin prep Papanicolaou smear with manual screening 01-11 [facility] Total cell countOrdered By: Carlos Enrique Peguero on 03-12-2023 Cells counted Molgen (Bld/Tiss) [#] 100 MANUAL DIFF [facility] CBC W Auto Differential pane l (Bld)on 03-04-2023 Basophils (Bld) [#/Vol] 0.06 10*3/uL Normal <0.11 [facility] Comment on above: Order Comment: Speci men Type: BLOOD SPECIMENOrdering Facility: [facility] Address: [address] [place] [address] Performed By: #### 5 7021-8 ####[facility] [id number] [place] [address] [place] Basophils/100 WBC (Bld) 0.8 % Normal C [facility] Comment on above: Order Comment: Speci men Type: BLOOD SPECIMENOrdering Facility: [facility] Address: [address] [place] [address] Performed By: #### 5 7021-8 ####[facility] HOSPITALLIA [id number] [place] [address] [place] Differential cell count method Nom (Bld) Auto Normal [facility] Comment on above: Order Comment: Speci men Type: BLOOD SPECIMENOrdering Facility: [facility] Address: [address] [place] [address] Performed By: #### 5 7021-8 ####[facility] HOSPITALLIA [id number] [place] [address] [place] Eosinophils (Bld) [#/Vol] 0.30 10*3/uL Normal <0.46 [facility] Comment on above: Order Comment: Speci men Type: BLOOD SPECIMENOrdering Facility: [facility] Address: [address] [place] [address] Performed By: #### 5 7021-8 ####[facility]ITALWNYLIA [id number] [place] [address] [place] Eosinophils/100 WBC (Bld) 3.8 % Normal [facility] Comment on above: Order Comment: Speci men Type: BLOOD SPECIMENOrdering Facility: [facility] Address: [address] [place] [address] Performed By: #### 5 7021-8 ####[facility] [id number] [place] [address] [place] Erythrocyte distribution width (RBC) [Ratio] 16.8 % High 11.5-15.0 [facility] Comment on above: Order Comment: Speci men Type: BLOOD SPECIMENOrdering Facility: [facility] Address: [address] [place] [address] Performed By: #### 5 7021-8 ####[facility] [id number] [place] [address] [place] Hematocrit (Bld) [Volume fraction] 37.5 % Normal 36.0-46.0 [facility] Comment on above: Order Comment: Speci men Type: BLOOD SPECIMENOrdering Facility: [facility] Address: [address] [place] [address] Performed By: #### 5 7021-8 ####[facility]ITALNCLI [id number] [place] [address] [place] Hemoglobin (Bld) [Mass/Vol] 11.5 g/dL Normal 11.5-15.5 [facility] Comment on above: Order Comment: Speci men Type: BLOOD SPECIMENOrdering Facility: [facility] Address: [address] [place] [address] Performed By: #### 5 7021-8 ####[facility] MARGOROBA [id number] [place] [address] [place] Immature granulocytes (Bld) [#/Vol] 0.03 10*3/uL Normal <0.10 [facility] Comment on above: Order Comment: Speci men Type: BLOOD SPECIMENOrdering Facility: [facility] Address: [address] [place] [address] Performed By: #### 5 7021-8 ####[facility]ITALA [id number] [place] [address] [place] Immature granulocytes/100 WBC (Bld) 0.4 % Normal [facility] Comment on above: Order Comment: Speci men Type: BLOOD SPECIMENOrdering Facility: [facility] Address: [address] [place] [address] Performed By: #### 5 7021-8 ####[facility]ITALA [id number] [place] [address] [place] Lymphocytes (Bld) [#/Vol] 1.38 10*3/uL Normal 1.00-4.00 [facility] Comment on above: Order Comment: Speci men Type: BLOOD SPECIMENOrdering Facility: [facility] Address: [address] [place] [address] Performed By: #### 5 7021-8 ####[facility] HOSPITALLIA [id number] [place] [address] [place] Lymphocytes/100 WBC (Bld) 17.4 % Normal [facility] Comment on above: Order Comment: Speci men Type: BLOOD SPECIMENOrdering Facility: [facility] Address: [address] [place] [address] Performed By: #### 5 7021-8 ####[facility]ITALNCLIA [id number] [place] [address] [place] MCH (RBC) [Entitic mass] 25.2 pg Low 26.0-34.0 [facility] Comment on above: Order Comment: Speci men Type: BLOOD SPECIMENOrdering Facility: [facility] Address: [address] [place] [address] Performed By: #### 5 7021-8 ####[facility] [id number] [place] [address] [place] MCHC (RBC) [Mass/Vol] 30.7 g/dL Normal 30.5-36.0 [facility] Comment on above: Order Comment: Speci men Type: BLOOD SPECIMENOrdering Facility: [facility] Address: [address] [place] [address] Performed By: #### 5 7021-8 ####[facility] [id number] [place] [address] [place] MCV (RBC) [Entitic vol] 82.2 fL Normal 80.0-100.0 C [facility] Comment on above: Order Comment: Speci men Type: BLOOD SPECIMENOrdering Facility: [facility] Address: [address] [place] [address] Performed By: #### 5 7021-8 ####[facility] [id number] [address] [place] Monocytes (Bld) [#/Vol] 0.67 10*3/uL Normal <0.87 [facility] Comment on above: Order Comment: Speci men Type: BLOOD SPECIMENOrdering Facility: [facility] Address: [address] [place] [address] Performed By: #### 5 7021-8 ####[facility] [id number] [place] [address] [place] Monocytes/100 WBC (Bld) 8.5 % Normal C [facility] Comment on above: Order Comment: Speci men Type: BLOOD SPECIMENOrdering Facility: [facility] Address: [address] [place] [address] Performed By: #### 5 7021-8 ####[facility]OS[facility]ITALJULIO [id number] [place] [address] [place] Neutrophils (Bld) [#/Vol] 5.48 10*3/uL Normal 1.45-7.50 [facility] Comment on above: Order Comment: Speci men Type: BLOOD SPECIMENOrdering Facility: [facility] Address: [address] [place] [address] Performed By: #### 5 7021-8 ####[facility]ITALLYDIABerna [id number] [place] [address] [place] Neutrophils/100 WBC (Bld) 69.1 % Normal [facility] Comment on above: Order Comment: Speci men Type: BLOOD SPECIMENOrdering Facility: [facility] Address: [address] [place] [address] Performed By: #### 5 7021-8 ####[facility] [id number] [place] [address] [place] Nucleated RBC (Bld) [#/Vol] 10*3/uL Normal <0.01 [facility] Comment on above: Order Comment: Speci men Type: BLOOD SPECIMENOrdering Facility: [facility] Address: [address] [place] [address] Performed By: #### 5 7021-8 ####[facility] HOSPITALLIA [id number] [place] [address] [place] Nucleated RBC/100 WBC (Bld) [Ratio] 0.0 /100 WBC Normal [facility] Comment on above: Order Comment: Speci men Type: BLOOD SPECIMENOrdering Facility: [facility] Address: [address] [place] [address] Performed By: #### 5 7021-8 ####[facility] CRYSTAL AQUINONCGLORIA [id number] [place] [address] [place] Platelet mean volume (Bld) [Entitic vol] 9.3 fL Normal 9.0-12.7 [facility] Comment on above: Order Comment: Speci men Type: BLOOD SPECIMENOrdering Facility: [facility] Address: [address] [place] [address] Performed By: #### 5 7021-8 ####[facility]OSPITALNCROSEBerna [id number] [place] [address] [place] Platelets (Bld) [#/Vol] 353 10*3/uL Normal 150-400 [facility] Comment on above: Order Comment: Speci men Type: BLOOD SPECIMENOrdering Facility: [facility] Address: [address] [place] [address] Performed By: #### 5 7021-8 ####[facility]ITALNCLIA [id number] [place] [address] [place] RBC (Bld) [#/Vol] 4.56 10*6/uL Normal 3.90-5.20 [facility] Comment on above: Order Comment: Speci men Type: BLOOD SPECIMENOrdering Facility: [facility] Address: [address] [place], [place] [address] Performed By: #### 5 7021-8 ####[facility]ITALNCLIA [id number] [place] [address] [place] WBC (Bld) [#/Vol] 7.92 10*3/uL Normal 3.70-11.00 [facility] Comment on above: Order Comment: Speci men Type: BLOOD SPECIMENOrdering Facility: [facility] Address: [address] [address] Performed By: #### 5 7021-8 ####[facility] HOSPITALNCGLORIA [id number] [place] [address] [place] Comprehensive metabolic 2000 panelon 03-04-2023 Albumin [Mass/Vol] 4.4 g/dL Normal 3.9-4.9 [facility] Comment on above: Order Comment: Speci men Type: BLOOD SPECIMENOrdering Facility: [facility] Address: [address] [address] Performed By: #### 2 4323-8 ####[facility]OSPITALNCGARFIELD [facility] [id number] [place] [address] [place] ALP [Catalytic activity/Vol] 105 U/L Normal 34-123 [facility] Comment on above: Order Comment: Speci men Type: BLOOD SPECIMENOrdering Facility: [facility] Address: [address] [address] Performed By: #### 2 4323-8 ####[facility]ITALA [id number] [address] [place] ALT [Catalytic activity/Vol] 7 U/L Normal 7-38 [facility] Comment on above: Order Comment: Speci men Type: BLOOD SPECIMENOrdering Facility: [facility] Address: [address] [address] Performed By: #### 2 4323-8 ####[facility]ITALNCLIA [id number] [place] [address] [place] Anion gap [Moles/Vol] 13 mmol/L Normal 9-18 [facility] Comment on above: Order Comment: Speci men Type: BLOOD SPECIMENOrdering Facility: [facility] Address: [address] [address] Performed By: #### 2 4323-8 ####[facility] MILLTOWNCLIA [id number] [place] [address] [place] AST [Catalytic activity/Vol] 17 U/L Normal 13-35 [facility] Comment on above: Order Comment: Speci men Type: BLOOD SPECIMENOrdering Facility: [facility] Address: [address] [place] [address] Performed By: #### 2 4323-8 ####[facility]ITALWNCLIA [id number] [place] [address] [place] Bilirubin [Mass/Vol] 0.4 mg/dL Normal 0.2-1.3 [facility] Comment on above: Order Comment: Speci men Type: BLOOD SPECIMENOrdering Facility: [facility] Address: [address] [place] [address] Performed By: #### 2 4323-8 ####[facility]OS[facility]ITALNCLIA [id number] [place] [address] [place] Calcium [Mass/Vol] 9.4 mg/dL Normal 8.5-10.2 [facility] Comment on above: Order Comment: Speci men Type: BLOOD SPECIMENOrdering Facility: [facility] Address: [address] [place] [address] Performed By: #### 2 4323-8 ####[facility] HOSPITALWNCLIA [id number] [place] [address] [place] Chloride [Moles/Vol] 101 mmol/L Normal 97-105 [facility] Comment on above: Order Comment: Speci men Type: BLOOD SPECIMENOrdering Facility: [facility] Address: [address] [place] [address] Performed By: #### 2 4323-8 ####[facility]ITALWNCLIA [id number] [place] [address] [place] CO2 [Moles/Vol] 24 mmol/L Normal 22-30 [facility] Comment on above: Order Comment: Speci men Type: BLOOD SPECIMENOrdering Facility: [facility] Address: [address] [place] [address] Performed By: #### 2 4323-8 ####[facility] [id number] [place] [address] [place] Creatinine [Mass/Vol] 0.92 mg/dL Normal 0.58-0.96 [facility] Comment on above: Order Comment: Speci men Type: BLOOD SPECIMENOrdering Facility: [facility] Address: [address] [place] [address] Performed By: #### 2 4323-8 ####[facility] [id number] [place] [address] [place] ESTIMATED GLOMERULAR FILTRATION RATE 65 mL/min/1.73m??? Normal >=60 [facility] Comment on above: Order Comment: Speci men Type: BLOOD SPECIMENOrdering Facility: [facility] Address: [address] [place] [address] Result Comment: Jefry mated Glomerular Filtration Rate (eGFR) is calculated using the 2020 CKD-EPI creatinine equation. This equation utilizes serum creatinine, sex, and age as parameters. The creatinine assay has traceable calibration to isotope dilution-mass spectrometry. Refer to KDIGO guidelines for clinical interpretation. In patients with unstable renal function, e.g. those with acute kidney injury, the eGFR may not accurately reflect actual GFR. Performed By: #### 2 4323-8 ####[facility] BL[facility]FF[facility] HOSPITALLIA [id number] [place] [address] [place] Glucose [Mass/Vol] 100 mg/dL High 74-99 [facility] Comment on above: Order Comment: Speci men Type: BLOOD SPECIMENOrdering Facility: [facility] Address: [address] [place] [address] Result Comment: The [place] Diabetes Association (ADA) provides guidance for cutoff values for fasting glucose and random glucose. The ADA defines fasting as no caloric intake for at least 8 hours. Fasting plasma glucose results between 100 to 125 mg/dL indicate increased risk for diabetes (prediabetes). Fasting plasma glucose results greater than or equal to 126 mg/dL meet the criteria for diagnosis of diabetes. In the absence of unequivocal hyperglycemia, results should be confirmed by repeat testing. In a patient with classic symptoms of hyperglycemia or hyperglycemic crisis, random plasma glucose results greater than or equal to 200 mg/dL meet the criteria for diagnosis of diabetes. Reference: Standards of Medical Care in Diabetes 2016, [place] [employer] Association. Diabetes Care. 2016.39(Suppl 1). Performed By: #### 2 4323-8 ####[facility] HOSPITALJULIO [id number] [place] [address] [place] Potassium [Moles/Vol] 4.2 mmol/L Normal 3.7-5.1 [facility] Comment on above: Order Comment: Speci men Type: BLOOD SPECIMENOrdering Facility: [facility] Address: [address] [place] [address] Performed By: #### 2 4323-8 ####[facility] HOSPITALBerna [id number] [place] [address] [place] Protein [Mass/Vol] 6.9 g/dL Normal 6.3-8.0 [facility] Comment on above: Order Comment: Speci men Type: BLOOD SPECIMENOrdering Facility: [facility] Address: [address] [address] Performed By: #### 2 4323-8 ####[facility] [id number] [place] [address] [place] Sodium [Moles/Vol] 138 mmol/L Normal 136-144 [facility] Comment on above: Order Comment: Speci men Type: BLOOD SPECIMENOrdering Facility: [facility] Address: [address] [address] Performed By: #### 2 4323-8 ####[facility] MARGOWNCLIA [id number] [place] [address] [place] Urea nitrogen [Mass/Vol] 25 mg/dL High 7-21 [facility] Comment on above: Order Comment: Speci men Type: BLOOD SPECIMENOrdering Facility: [facility] Address: [address] [place] [address] Performed By: #### 2 4323-8 ####[facility] HOSPITALNCROSE [id number] [address] [id number] [place] ECHOon 03-04-2023 Echocardiography Echocardiography Report: Transthoracic Echo [facility] Date of service: 03/04/2023 2:44:43 PM STACKER Ordering physician: JOSELUIS PEREZ Indication: Baseline and serial evaluation in a patient undergoing therapy with cardiotoxic agents Technologist: Mahsa Miller [facility] Interpreting physician: Lennox Escobedo DO PATIENT: Name: ROSITA KENNEDY : 1945 Age: 77 years Gender: F Primary rhythm: sinus. Height: 152.40 cm BSA: 1.48 m Weight: 51.89 kg BMI: 22.3 kg/m Heart rate 75 bpm Color Doppler was utilized to interrogate the cardiac valves assessed and spectral Doppler was utilized to determine the flow velocities and pressure gradients reported in this exam. Myocardial strain analysis was performed in this exam to aid in the assessment of cardiac function. MEASUREMENTS: Value Indexed Normal Max aortic dimension 3.1 cm Ao < 3.8 Left atrial volume 30 ml (4ch A-L) 20 ml/m Radha <= 34 LV ID (diastole) 3.4 cm (2D) 2.26 cm/m LV ID (systole) 2.5 cm (2D) 1.66 cm/m IVS, leaflet tips 0.8 cm (2D) Posterior wall thickness 1.0 cm (2D) Left ventricular mass 83 g (2D) 56 g/m Global peak long strain -17.5 % LV stroke volume 33 ml (2D biplane) LV end diastolic volume 56 ml (2D biplane) 37.7 ml/m 29<=EDVi<62 LV end systolic volume 23 ml (2D biplane) 15.2 ml/m Ejection Fraction 60 % (2D biplane) EF > 54 FINDINGS: LEFT VENTRICLE The left ventricle is normal in size. Left ventricular systolic function is normal. Global LV myocardial strain is normal. Grade I left ventricular diastolic dysfunction. Mitral annular lateral E/e': 5.9. Mitral annular septal E/e': 7.4. Wall Motion: All scored segments are normal. RIGHT VENTRICLE The right ventricle is normal in size. Right ventricular systolic function is mildly decreased. RV systolic tissue Doppler velocity is 7.0 cm/s. Estimated right ventricular systolic pressure is not reported due to an insufficient tricuspid regurgitation signal. Estimated right atrial pressure is 3 mmHg (although IVC not seen). LEFT ATRIUM The left atrial cavity is normal in size. RIGHT ATRIUM The right atrial cavity is normal in size. Inferior Vena Cava: The inferior vena cava appears normal measuring 1.7 cm. MITRAL VALVE The mitral valve leaflets are structurally normal. There is no mitral valve regurgitation. The pressure half time is 86 msec. The peak mitral E/A ratio is 0.56. The average mitral E/e' ratio is 6.7. The mitral flow deceleration time is 296 msec. TRICUSPID VALVE The tricuspid valve leaflets are structurally normal. There is trace tricuspid valve regurgitation. AORTIC VALVE There is no aortic valve regurgitation. Tricuspid aortic valve. There is mild thickening. The peak gradient is 8 mmHg (peak velocity = 141.2 cm/s). PULMONIC VALVE The pulmonic valve cusps are structurally normal. There is trace (trace - 1+) pulmonic valve regurgitation. AORTA The visualized aorta is normal in size. Measurements - Mid ascending aorta 3.1 cm. PERICARDIUM There is no pericardial effusion. There is an epicardial fat pad. CONCLUSIONS: - Exam indication: Baseline and serial evaluation in a patient undergoing therapy with cardiotoxic agents - The left ventricle is normal in size. Left ventricular systolic function is normal. EF = 60 5% (2D biplane) Grade I left ventricular diastolic dysfunction. - The right ventricle is normal in size. Right ventricular systolic function is mildly decreased. - There are no significant valvular abnormalities. - Exam was compared with the prior echocardiographic exam performed on 11/18/2021, no significant change. * * * Final * * * [employer] Image : [id number] Normal [facility] US DVT LOWER LEFTon 03-04-20 [facility] US DVT LOWER LTon 03-04-2023 US DVT LOWER LT * * *Final Report* * * DATE OF EXAM: Mar 04 2023 2:16PM WRU 1006 - US DVT LOWER LT / PROCEDURE REASON: multiple diagnoses * * * * Physician Interpretation * * * * EXAMINATION: LEFT LOWER EXTREMITY DEEP VENOUS ULTRASOUND WITH DOPPLER IMAGING CLINICAL HISTORY: TECHNIQUE: Grayscale with compression maneuvers, color Doppler and spectral Doppler imaging of the left proximal deep veins was performed. Grayscale with compression maneuvers of the peroneal and posterior tibial veins was performed. The left great and small saphenous veins were evaluated at their insertion to the deep system. The contralateral common femoral vein was imaged for comparison. Images were obtained and stored in a permanent archive. MQ: [id number] COMPARISON: None RESULT: LEFT LOWER EXTREMITY PROXIMAL DEEP VEINS Distal External Iliac and Common Femoral Veins: Compression: Partial compressible Doppler: Decreased spontaneous flow with some echogenic material. Abnormal (decreased or absent) response to augmentation. Femoral vein: Compression: Normal Doppler: Normal, spontaneous flow. Normal response to augmentation. Popliteal vein: Compression: Normal Doppler: Normal, spontaneous flow. Normal response to augmentation. CALF DEEP VEINS Peroneal veins: Normal compression. Posterior tibial veins: Normal compression. Gastrocnemius and Soleal veins: Not imaged. SUPERFICIAL VEINS Great saphenous: Patent and compressible at insertion into common femoral vein; not otherwise assessed. Small Saphenous: Patent and compressible in the proximal calf, not otherwise assessed. RIGHT LOWER EXTREMITY (FOR COMPARISON) Common Femoral Vein: Compression: Normal Doppler: Normal, spontaneous respirophasic flow. Normal response to augmentation. 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 Negative study for calf DVT in the left lower extremity. Negative study for superficial thrombophlebitis in the imaged segments of the left lower extremity. Help Desk Support: JUDITH Transcribe Date/Time: Mar 04 2023 2:24P Dictated by : LORENE HANEY MD This examination was interpreted and the report reviewed and electronically signed by: LORENE HANEY MD on Mar 04 2023 2:34PM EST [id number] Normal [facility] CNOVSPon 02-26-2023 CNOVSP Visit (SP) Office (GYNML) ROSITA KENNEDY ([id number]) 1945 F Date Time Provider Department 02/26/23 2:15 PM JOSELUIS PEREZ GYN During your visit today, we recorded the following information about you: Temperature Pulse Blood pressure Weight 97.8 degrees 73/minute 146/70 49 kg Height 1.477 m Jackie Murphy MA 02/26/2023 1:56 PM Signed PT c/o intermittent night sweats. Joseluis Perez MD 03/02/2023 8:20 PM Signed DATE OF SERVICE: 02/26/2023 REASON FOR VISIT: 3 month follow up; PET/CT review DIAGNOSIS: Recurrent endometrioid adenocarcinoma. MMR normal. HISTORY TO DATE: 1. Initital presentation: Saw Skylar Ackerman CNP for complaints of PMB, 5 day history. On 07/25/2014 had a EMB that showed Well differentiated endometrioid adenocarcinoma, FIGO grade 1. HNPCC screening negative 2. 09/12/2014 Surgery: Single-port total laparoscopic hysterectomy with bilateral salpingo-oophorectomy , bilateral pelvic lymphadenectomy, bilateral periaortic lymphadenectomy and cystoscopy 3.) 10/03/14 Consult to rad onc: RT deferred 4.) 10/26/2016: Lymphatic recurrence in left neck right retrocaval, bilateral pelvis 5.) 12/03/2016: Lymph node FNA: Positive for malignant cells. Adenocarcinoma 6.) 12/10/2016-04/01/2017: Chemo - Carbo/Taxol x 6 cycles 7.) 05/2017: Radiation - RT to left supraclavicular region, retroperitoneal/pelvi c node region 8.) 02/2018: Right retrorenal LN met not amenable to SRS or removal. Pt declined cytotoxic therapy ER 50%, NV negative 9). 03/31/2018 - 03/16/2019: Letrozole started. Everolimus added 06/23/2018 due to progression. Treatment discontinued 03/16/2019 due to disease progression (confirmed 03/06/2019). Patient elected treatment holiday. 10). 08/2018: PE, IVC filter placement 11). 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 01/01/2022: [facility]. Recommended RT (vs systemic chemotherapy) for management of hypermetabolic aortocaval lymphadenopathy. Patient would prefer treatment in [place], [place]. 13). 02/24/2022 - 03/03/2022: Radiation Therapy (SBRT) - The Aortocaval LNs PTV received a total dose of 2400 cGy in [address] Youngblood 14) 09/03/2022 - 09/07/2022: Hospital admission: TCU resident for debility, RY, dehydration, UTI, extensive RLE DVT. 09/07/2022 Admitted to [facility] for heparin drip secondary to DVT 09/08/2022-09/10/2022: Surgical management w/ Dr. Schaefer for extensive RLE DVT. Patient underwent thrombectomy, balloon angioplasty of right lower extremity DVT and IVC venogram, percutaneous thrombectomy IVC, bilateral common and external arteries angioplasty, IVUS. Patient required admission and rehabilitation. 15) 10/2022: PET scan with few new retrocrural lymph nodes suspicious for metastases. 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 Date of last follow up: 2022 Genetics Consultation/Testing Consultation: No Genetic Testing: No Molecular testing: Yes - CARIS testing Date of testin12/22/2016 Results: below HEALTH MAINTENANCE: Last mammogram: 10/30/2021 - negative Last colonoscopy: 02/24/2019 Last Pap: 02/10/2018 vaginal - Negative Last HPV: 04/09/2016 - Negative TUMOR BOARD 01/13/2022: Tumor Board Management Options: - Radiation oncology consultation for discussion of SBRT. - Recommend systemic treatment with pembrolizumab/lenvima . PAST MEDICAL HISTORY Diagnosis Date Cataracts, bilateral COAG (chronic open-angle glaucoma) CRVO (central retinal vein occlusion) Disorder of bone and cartilage, unspecified Multiple sclerosis (HCC) 2001 remission currently Pseudophakia, both eyes Pyelonephritis, unspecified 01/2010 Pyelonephritis Uterine cancer (HCC) 08/08/2014 PAST SURGICAL HISTORY Procedure Laterality Date DELIVERY ONLY , low cervical X3 COLONOSCOPY 05/18/2016 Dr. Gibbs. no bx taken COLONOSCOPY, GI 1998, 2009 EYE SURGERY PROCEDURE Left 04/11/2021 Xen Gel stent EYLEA (AFLIBERCEPT) 2MG INTRAVITREAL INJECTION OD (RIGHT EYE) Right 04/02/2016 #7 INSERT ANT SEGMENT DRAIN INT 11/21/2014 iStent Implantation Left Eye LIG/TRNSXJ FLP TUBE ABDL/VAG APPR UNI/BI 1976 PAST SURGICAL HISTORY OF right EYE SURGERY AGE 7 PAST SURGICAL HISTORY OF Right 11/06/2020 Xen Gel PULMONARY FUNCTION TEST 06/07/03 XCAPSL CTRC RMVL INSJ IO LENS PROSTH W/O ECP 11/21/2014 Cataract Extraction with PC IOL/Femtosecond Laser Left Eye Family History Problem Relation Age of Onset Breast Cancer Sister Glaucoma Sister Heart Father mi Diabetes Father Hypertension Mother Alzheimer's Disease Mother Macular Degen Mother Glaucoma Mother Macular Degen Maternal Grandmother PATHOLOGY 09/12/14 Staging Moderately differentiate (more content not included)... Normal [facility] GLUCOSE, BLOOD (POC)on 02-17 Glucose [Mass/Vol] 67 mg/dL 74 - 99 mg/dL [facility] NM PET/CT SKULL-THIGH SUBQon 02-17-2023 NM PET/CT SKULL-THIGH SUBQ * * *Final Report* * * DATE OF EXAM: Feb 17 2023 3:03PM FVP 0063 - NM PET/CT SKULL-THIGH SUBQ / PROCEDURE REASON: Endometrial cancer (HCC) * * * * Physician Interpretation * * * * FDG PET/CT SCAN 02/17/2023 1:24 PM: CLINICAL HISTORY: 77 years old Female with Endometrial cancer (HCC) INDICATION: Subsequent treatment strategy. TECHNIQUE: 6.1 mCi F-18 FDG IV, followed about 1 hour later by PET imaging from base of the skull to proximal femur. Non contrast CT was performed for attenuation correction and anatomic localization purposes. CT Dose-Length Product (DLP): 247 mGy*cm. CT Dose Reduction Employed: Yes BLOOD GLUCOSE: 67 mg/dL COMPARISON: 11/04/2022 PET/CT and prior CORRELATION: No recent pertinent RESULT: Note- The SUV value is for reference purposes. Due to technical factors and uncontrolled variables, caution is advised when using SUV to differentiate malignant from nonmalignant processes, or to assess follow-up/treatment response. HEAD AND NECK: No pathologically enlarged or hypermetabolic cervical lymphadenopathy. Uptake in the oral cavity, tonsils, salivary glands, extraocular muscles is likely physiologic. Substantially limited evaluation of the intracranial structures due to the physiologic tejada matter uptake. CHEST: Devices/lines and tubes: Right chest port catheter terminating in the lower SVC. Lungs and tracheobronchial tree: No hypermetabolic nodules or consolidation. Emphysematous lungs. Since FDG PET may have decreased sensitivity for pulmonary nodules <0.8 cm, follow-up chest CT would be suggested, as clinically indicated. Pleura and pericardium: No pleural effusion.No pericardial effusion Mediastinum and Lymph nodes: New hypermetabolic left subpectoral and left axillary lymphadenopathy. The largest measures up to 1.7 x 2.6 cm and SUV max 13.2, in the left axilla. Progressing posterior mediastinal/retrocrur al lymph nodes now measuring SUV max 5.1, previously 3.6 Coronary atherosclerosis. Aortic atherosclerosis. Chest wall: No hypermetabolic lesion ABDOMEN AND PELVIS: Physiologic uptake seen in the and GI tracts. Liver: Mildly heterogeneous uptake, no definite hypermetabolic lesion. Biliary: No bile duct dilation. Spleen: No splenomegaly or FDG avidity. Pancreas: No abnormal FDG avidity or duct dilation. Adrenals: No FDG avid lesion. Kidneys: No obstructing calculi, hydronephrosis, or hypermetabolic lesions. . GI tract: No dilation or wall thickening. Lymph nodes: No abdominal or pelvic hypermetabolic lymphadenopathy. Stable non-FDG avid aortocaval soft tissue fullness. Mesentery/Peritoneum: No ascites or hypermetabolic mass. Vasculature: Vascular patency cannot be assessed due to lack of IV contrast. There are atherosclerotic calcifications without aneurysmal dilation. IVC filter in place. Pelvis: No hypermetabolic mass, ascites or fluid collection. Abdominopelvic wall: No hypermetabolic lesion MUSCULOSKELETAL: There are no hypermetabolic osseous lesions. Redemonstrated advanced multilevel degenerative spondylosis. Severe chronic-appearing anterior wedging of T10. Engineering Officer (topogram) images: Unremarkable. IMPRESSION: Head and Neck: * No hypermetabolic foci Chest: * New hypermetabolic left axillary and left subpectoral lymphadenopathy and progressing posterior mediastinal/retrocrur al lymphadenopathy, compatible with metastatic disease. Abdomen and pelvis: * No evidence of FDG avid neoplastic process Musculoskeletal: * No neoplastic hypermetabolic lesions NOTE: This report was created using voice recognition dictation software. If there is a concern for errors, please have the clinician contact the report author for clarification. Help Desk Support: JUDITH Transcribe Date/Time: Feb 19 2023 3:07P Dictated by : HAI ALONSO MD This examination was interpreted and the report reviewed and electronically signed by: HAI ALONSO MD on Feb 19 2023 3:20PM EST [id number] N [facility] ROSITA KENNEDY ([id number]) 1945 F Date Time Provider Department 02/16/23 LUZ GUZMAN ([facility]) [place] During your visit today, we recorded the following information about you: Allergies As of Date: 02/16/2023 Noted Allergy Reaction CODEINE 02/24/2001 Comments: hives DYE 03/04/2018 8 - GI Upset Comments: Diarrhea after CT oral contrast 01/2018 ERYTHROMYCIN 08/03/2014 8 - GI Upset METHYLPREDNISOLONE 08/03/2014 4 - Hives Comments: IV SULFA (SULFONAMIDE ANTIBIOTICS) 02/24/2001 Comments: hives Date Reviewed: 2022 Reviewed by: Joseluis Perez MD - Fully Assessed Reason for Visit: Appointment Instructions [Other] Cmt: Appt reminder call - spoke with patient - went over dietary guidelines; dress comfortable, directions to office. Prescriptions as of 02/16/2023 - levothyroxine (LEVOXYL) 25 mcg tablet Take 1 tablet by mouth once daily. Take on empty stomach. For Thyroid - mirtazapine (REMERON) 15 mg tablet Take 1 tablet by mouth daily at bedtime. - meloxicam (MOBIC) 15 mg tablet Take 1 tablet by mouth once daily. With food. - atorvastatin (LIPITOR) 40 mg tablet Take 1 tablet by mouth daily at bedtime. For cholesterol. - Methenamine Hippurate (HIPREX) 1 gram tablet Take 1 tablet by mouth twice daily with meals. - furosemide (LASIX) 20 mg tablet Take one tablet every day but if looses more than 10 pounds in a week then she needs to hold it. - buPROPion (WELLBUTRIN) 75 mg tablet Take it once a day in the morning. - sertraline (ZOLOFT) 25 mg tablet Take 1 tablet by mouth once daily. - sertraline (ZOLOFT) 100 mg tablet Take 1 tablet by mouth once daily. To take along with 25 mgs to make a total of 125 mgs - travoprost (TRAVATAN Z) 0.004 % ophthalmic drops Use 1 Drop in both eyes daily at bedtime. - brimonidine-timolol (COMBIGAN) 0.2-0.5 % ophthalmic solution Use 1 Drop in the right eye twice daily. Use at 9 AM and 3 PM - ondansetron orally disintegrating (ZOFRAN ODT) 4 mg disintegrating tablet Take 1 tablet by mouth every 6 hours as needed for nausea/vomiting. - phenazopyridine (PYRIDIUM, GERIDIUM) 200 mg tablet Take 1 tablet by mouth three times daily as needed. - aspirin, enteric coated (ECOTRIN LOW STRENGTH) 81 mg EC tablet Take 1 tablet by mouth once daily. - calcium carb/vitamin D3/vit K1 (VIACTIV ORAL) Take 1 tablet by mouth once daily. - L GASSERI/B BIFIDUM/B LONGUM ([facility] Front Row [facility] ORAL) Take by mouth. - CHOLECALCIFEROL, VITAMIN D3, (VITAMIN D3 ORAL) Take by mouth once daily. - LUTEIN ORAL Take by mouth. - MULTIVITAMIN TABLET PO Take one(1) tablet daily. 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 COAG (chronic open-angle glaucoma) - Both Eyes *07/06/2014 10/14/2017 Glaucomatous atrophy (cupping) of optic disc - *07/06/2014 08/05/2015 Visual field defect, unspecified - Right Eye [H*07/06/2014 08/05/2015 Other and combined forms of senile cataract - B*07/06/2014 05/23/2019 History of uterine cancer [Z85.42] 08/08/2014 Regular astigmatism - Both Eyes [H52.229] 11/08/2014 S/P laser cataract surgery [Z98.49] 11/22/2014 Lens replaced by other means - Left Eye [Z96.1] 11/29/2014 08/05/2015 Nasal step visual field defect of right eye [H5*08/05/2015 CRVO (central retinal vein occlusion) [H34.8192]08/05/2015 Pseudophakia of both eyes [Z96.1] 08/05/2015 Primary open angle glaucoma of both eyes, moder*10/01/2016 10/14/2017 Visual field loss [H53.40] 10/01/2016 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] 10/01/2016 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89] 06/23/2018 Sensorineural hearing loss, bilateral [H90.3] 06/28/2018 Elevated cancer antigen 125 (CA-125) [R97.1] 10/18/2018 Stable central retinal vein occlusion of right *02/15/2019 Primary open-angle glaucoma, left eye, moderate*05/23/2019 04/11/2021 H/O central retinal vein occlusion [Z86.69] 01/23/2020 Keratitis, superficial, punctate, bilateral [H1*01/23/2020 Chronic deep vein thrombosis (DVT) of left lowe*04/22/2020 S/P eye surgery [Z98.890] 11/26/2020 Primary open angle glaucoma (POAG) of left eye,*08/18/2021 Vision loss of right eye [H54.61] 11/04/2021 Intracranial aneurysm (more content not included)... [facility]NML[facility] ROSITA KENNEDY ([id number]) 1945 F Date Time Provider Department 12/14/22 CAMI BAEZ GYNTANGELA During your visit today, we recorded the following information about you: Cami Baez RN 12/14/2022 11:31 AM Signed Pt's son calling in to report Rosita tested positive for COVID on 11/12/2022 and has had right arm/shoulder soreness for the last 4-5 days not related to any activity. Jennifer Mckeon RN 12/15/2022 10:23 AM Signed Spoke to patient in regards to ART PREPARATOR message: Hi-would recommend patient follow up with PcP given she is recovering from COVID with these symptoms. Thanks She voiced understanding and will call PCP as needed. Allergies As of Date: 12/14/2022 Noted Allergy Reaction CODEINE 02/24/2001 Comments: hives DYE 03/04/2018 8 - GI Upset Comments: Diarrhea after CT oral contrast 01/2018 ERYTHROMYCIN 08/03/2014 8 - GI Upset METHYLPREDNISOLONE 08/03/2014 4 - Hives Comments: IV SULFA (SULFONAMIDE ANTIBIOTICS) 02/24/2001 Comments: hives Date Reviewed: 2022 Reviewed by: Joseluis Perez MD - Fully Assessed Reason for Visit: Patient Update [1234] Prescriptions as of 12/15/2022 - levothyroxine (LEVOXYL) 25 mcg tablet Take 1 tablet by mouth once daily. Take on empty stomach. For Thyroid - mirtazapine (REMERON) 15 mg tablet Take 1 tablet by mouth daily at bedtime. - meloxicam (MOBIC) 15 mg tablet Take 1 tablet by mouth once daily. With food. - atorvastatin (LIPITOR) 40 mg tablet Take 1 tablet by mouth daily at bedtime. For cholesterol. - Methenamine Hippurate (HIPREX) 1 gram tablet Take 1 tablet by mouth twice daily with meals. - furosemide (LASIX) 20 mg tablet Take one tablet every day but if looses more than 10 pounds in a week then she needs to hold it. - potassium chloride (K-TAB) 10 mEq tablet Take 1 tablet by mouth twice daily. Take it every day along with lasix. If looses than 10 pounds then change to every other day - buPROPion (WELLBUTRIN) 75 mg tablet Take it once a day in the morning. - sertraline (ZOLOFT) 25 mg tablet Take 1 tablet by mouth once daily. - sertraline (ZOLOFT) 100 mg tablet Take 1 tablet by mouth once daily. To take along with 25 mgs to make a total of 125 mgs - travoprost (TRAVATAN Z) 0.004 % ophthalmic drops Use 1 Drop in both eyes daily at bedtime. - brimonidine-timolol (COMBIGAN) 0.2-0.5 % ophthalmic solution Use 1 Drop in the right eye twice daily. Use at 9 AM and 3 PM - ondansetron orally disintegrating (ZOFRAN ODT) 4 mg disintegrating tablet Take 1 tablet by mouth every 6 hours as needed for nausea/vomiting. - phenazopyridine (PYRIDIUM, GERIDIUM) 200 mg tablet Take 1 tablet by mouth three times daily as needed. - aspirin, enteric coated (ECOTRIN LOW STRENGTH) 81 mg EC tablet Take 1 tablet by mouth once daily. - calcium carb/vitamin D3/vit K1 (VIACTIV ORAL) Take 1 tablet by mouth once daily. - L GASSERI/B BIFIDUM/B LONGUM ([facility] Front Row [facility] ORAL) Take by mouth. - CHOLECALCIFEROL, VITAMIN D3, (VITAMIN D3 ORAL) Take by mouth once daily. - LUTEIN ORAL Take by mouth. - MULTIVITAMIN TABLET PO Take one(1) tablet daily. 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 COAG (chronic open-angle glaucoma) - Both Eyes *07/06/2014 10/14/2017 Glaucomatous atrophy (cupping) of optic disc - *07/06/2014 08/05/2015 Visual field defect, unspecified - Right Eye [H*07/06/2014 08/05/2015 Other and combined forms of senile cataract - B*07/06/2014 05/23/2019 History of uterine cancer [Z85.42] 08/08/2014 Regular astigmatism - Both Eyes [H52.229] 11/08/2014 S/P laser cataract surgery [Z98.49] 11/22/2014 Lens replaced by other means - Left Eye [Z96.1] 11/29/2014 08/05/2015 Nasal step visual field defect of right eye [H5*08/05/2015 CRVO (central retinal vein occlusion) [H34.8192]08/05/2015 Pseudophakia of both eyes [Z96.1] 08/05/2015 Primary open angle glaucoma of both eyes, moder*10/01/2016 10/14/2017 Visual field loss [H53.40] 10/01/2016 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 [facility]20[facility] ROSITA KENNEDY ([id number]) 1945 F Date Time Provider Department 12/07/22 HENRY DONOVAN [facility] During your visit today, we recorded the following information about you: Henry Donovan, MONTSE 12/07/2022 11:58 AM Signed Called patient to follow up on on to either pursue treatment or monitor with repeat Pet scan. Patient reports that she discussed with her family and they decided to hold off on treatment and wait to see what next pet scan. Offered to make these appointments for her but states she aready let our team know and Pet with follow up Dr Wu OV was already made. Will update team. Allergies As of Date: 12/07/2022 Noted Allergy Reaction CODEINE 02/24/2001 Comments: hives DYE 03/04/2018 8 - GI Upset Comments: Diarrhea after CT oral contrast 01/2018 ERYTHROMYCIN 08/03/2014 8 - GI Upset METHYLPREDNISOLONE 08/03/2014 4 - Hives Comments: IV SULFA (SULFONAMIDE ANTIBIOTICS) 02/24/2001 Comments: hives Date Reviewed: 2022 Reviewed by: Joseluis Perez MD - Fully Assessed Reason for Visit: Care Coordination [3494] Cmt: Follow up POC Prescriptions as of 12/07/2022 - levothyroxine (LEVOXYL) 25 mcg tablet Take 1 tablet by mouth once daily. Take on empty stomach. For Thyroid - mirtazapine (REMERON) 15 mg tablet Take 1 tablet by mouth daily at bedtime. - meloxicam (MOBIC) 15 mg tablet Take 1 tablet by mouth once daily. With food. - atorvastatin (LIPITOR) 40 mg tablet Take 1 tablet by mouth daily at bedtime. For cholesterol. - Methenamine Hippurate (HIPREX) 1 gram tablet Take 1 tablet by mouth twice daily with meals. - furosemide (LASIX) 20 mg tablet Take one tablet every day but if looses more than 10 pounds in a week then she needs to hold it. - potassium chloride (K-TAB) 10 mEq tablet Take 1 tablet by mouth twice daily. Take it every day along with lasix. If looses than 10 pounds then change to every other day - buPROPion (WELLBUTRIN) 75 mg tablet Take it once a day in the morning. - sertraline (ZOLOFT) 25 mg tablet Take 1 tablet by mouth once daily. - sertraline (ZOLOFT) 100 mg tablet Take 1 tablet by mouth once daily. To take along with 25 mgs to make a total of 125 mgs - travoprost (TRAVATAN Z) 0.004 % ophthalmic drops Use 1 Drop in both eyes daily at bedtime. - brimonidine-timolol (COMBIGAN) 0.2-0.5 % ophthalmic solution Use 1 Drop in the right eye twice daily. Use at 9 AM and 3 PM - ondansetron orally disintegrating (ZOFRAN ODT) 4 mg disintegrating tablet Take 1 tablet by mouth every 6 hours as needed for nausea/vomiting. - phenazopyridine (PYRIDIUM, GERIDIUM) 200 mg tablet Take 1 tablet by mouth three times daily as needed. - aspirin, enteric coated (ECOTRIN LOW STRENGTH) 81 mg EC tablet Take 1 tablet by mouth once daily. - calcium carb/vitamin D3/vit K1 (VIACTIV ORAL) Take 1 tablet by mouth once daily. - L GASSERI/B BIFIDUM/B LONGUM ([employer] HEALTH ORAL) Take by mouth. - CHOLECALCIFEROL, VITAMIN D3, (VITAMIN D3 ORAL) Take by mouth once daily. - LUTEIN ORAL Take by mouth. - MULTIVITAMIN TABLET PO Take one(1) tablet daily. 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 COAG (chronic open-angle glaucoma) - Both Eyes *07/06/2014 10/14/2017 Glaucomatous atrophy (cupping) of optic disc - *07/06/2014 08/05/2015 Visual field defect, unspecified - Right Eye [H*07/06/2014 08/05/2015 Other and combined forms of senile cataract - B*07/06/2014 05/23/2019 History of uterine cancer [Z85.42] 08/08/2014 Regular astigmatism - Both Eyes [H52.229] 11/08/2014 S/P laser cataract surgery [Z98.49] 11/22/2014 Lens replaced by other means - Left Eye [Z96.1] 11/29/2014 08/05/2015 Nasal step visual field defect of right eye [H5*08/05/2015 CRVO (central retinal vein occlusion) [H34.8192]08/05/2015 Pseudophakia of both eyes [Z96.1] 08/05/2015 Primary open angle glaucoma of both eyes, moder*10/01/2016 10/14/2017 Visual field loss [H53.40] 10/01/2016 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 MMR normal. Now with recurrence. HISTORY TO DATE: 1. Initital presentation: Saw Skylar Ackerman CNP for complaints of PMB, 5 day history. On 07/25/2014 had a EMB that showed Well differentiated endometrioid adenocarcinoma, FIGO grade 1. HNPCC screening negative 2. 09/12/2014 Surgery: Single-port total laparoscopic hysterectomy with bilateral salpingo-oophorectomy , bilateral pelvic lymphadenectomy, bilateral periaortic lymphadenectomy and cystoscopy 3.) 10/03/14 Consult to rad onc: RT deferred 4.) 10/26/2016: Lymphatic recurrence in left neck right retrocaval, bilateral pelvis 5.) 12/03/2016: Lymph node FNA: Positive for malignant cells. Adenocarcinoma 6.) 12/10/2016-04/01/2017: Chemo - Carbo/Taxol x 6 cycles 7.) 05/2017: Radiation - RT to left supraclavicular region, retroperitoneal/pelvi c node region 8.) 02/2018: Right retrorenal LN met not amenable to SRS or removal. Pt declined cytotoxic therapy ER 50%, NV negative 9). 03/31/2018 - 03/16/2019: Letrozole started. Everolimus added 06/23/2018 due to progression. Treatment discontinued 03/16/2019 due to disease progression (confirmed 03/06/2019). Patient elected treatment holiday. 10.)08/2018: PE, IVC filter placement 11.) 01/01/2022: [facility]. Recommended RT (vs systemic chemotherapy) for management of hypermetabolic aortocaval lymphadenopathy (12/15 CT and 12/22 PET). Patient would prefer treatment in [place], [place]. 12). 01/05/2022: Consult with Rad/Onc (Dr. Solorio in [place]). Per family, RT was not recommended due to concerns with risk of damage to bowels and kidney given the lymph node location. 13). 02/24/2022 - 03/03/2022: Radiation Therapy (SBRT) - The Aortocaval LNs PTV received a total dose of 2400 cGy in 3 fractions 14) 09/03/2022 - 09/07/2022: Hospital admission: TCU resident for debility, RY, dehydration, UTI, extensive RLE DVT. 09/07/2022 Admitted to [facility] for heparin drip secondary to DVT 15) 09/08/2022-07/2023 Dr. Schaefer performed thrombectomy, balloon angioplasty of right lower extremity DVT. 09/10/2022 IVC venogram, percutaneous thrombectomy IVC, bilateral common and external arteries angioplasty, IVUS. Date of last follow up: 06/19/22 [facility] Genetics Consultation/Testing Consultation: No Genetic Testing: No Molecular testing: Yes - CARIS testing Date of testin12/22/2016 Results: below TUMOR BOARD 01/13/2022: Tumor Board Management Options: - Radiation oncology consultation for discussion of SBRT. - Recommend systemic treatment with pembrolizumab/lenvima . PAST MEDICAL HISTORY Diagnosis Date Cataracts, bilateral COAG (chronic open-angle glaucoma) CRVO (central retinal vein occlusion) Disorder of bone and cartilage, unspecified Multiple sclerosis (HCC) 2002 remission currently Pseudophakia, both eyes Pyelonephritis, unspecified 01/2010 Pyelonephritis Uterine cancer (HCC) 08/08/2014 PAST SURGICAL HISTORY Procedure Laterality Date DELIVERY ONLY , low cervical X3 COLONOSCOPY 05/18/2016 Dr. Gibbs. no bx taken COLONOSCOPY, GI 1998, 2009 EYE SURGERY PROCEDURE Left 04/11/2021 Xen Gel stent EYLEA (AFLIBERCEPT) 2MG INTRAVITREAL INJECTION OD (RIGHT EYE) Right 04/02/2016 #7 INSERT ANT SEGMENT DRAIN INT 11/21/2014 iStent Implantation Left Eye LIG/TRNSXJ FLP TUBE ABDL/VAG APPR UNI/BI 1976 PAST SURGICAL HISTORY OF right EYE SURGERY AGE 7 PAST SURGICAL HISTORY OF Right 11/06/2020 Xen Gel PULMONARY FUNCTION TEST 06/07/03 XCAPSL CTRC RMVL INSJ IO LENS PROSTH W/O ECP 11/21/2014 Cataract Extraction with PC IOL/Femtosecond Laser Left Eye Family History Problem Relation Age of Onset Breast Cancer Sister Glaucoma Sister Heart Father mi Diabetes Father Hypertension Mother Alzheimer's Disease Mother Macular Degen Mother Glaucoma Mother Macular Degen Maternal Grandmother PATHOLOGY 09/12/14 Staging Moderately differentiated endometrioid adenocarcinoma, FIGO grade 2. myometiral invasion (2 mm out of 16 mm) TUMOR SIZE: 2.8 cm LYMPH-VASCULAR INVASION: Not identified Nodes negative 11/26/2016 ESTROGEN/PROGESTERONE RECEPTOR (ER/NV) ANALYSIS Estrogen receptors immunostain appears weakly to moderately positive in 30% of cell nuclei. Progesterone receptors immunostain appears moderately positive in 50% of cell nuclei. 2016 BIOPSY (more content not included)... Normal [facility] NM PET/CT SKULL-THIGH SUBQon 11-04-2022 NM PET/CT SKULL-THIGH SUBQ * * *Final Report* * * DATE OF EXAM: Nov 04 2022 3:03PM [facility] 0063 - NM PET/CT SKULL-THIGH SUBQ / PROCEDURE REASON: Malignant neoplasm of endometrium (HCC) * * * * Physician Interpretation * * * * FDG PET/CT SCAN: CLINICAL HISTORY: Malignant neoplasm of endometrium. INDICATION: Subsequent treatment strategy. TECHNIQUE: 6.9 mCi 18-FDG IV, followed about 1 hour later by PET imaging from base of the skull to proximal femur. Non contrast CT was performed for attenuation correction and anatomic localization purposes. CT Dose-Length Product (DLP): 269 mGy*cm. CT Dose Reduction Employed: Yes BLOOD GLUCOSE: 71 mg/dL Comparison: Prior PET CT dated 06/12/2022. RESULT: NECK: Likely physiological activity in the oral cavity, tonsillar regions, salivary glands. Activity in the parapharyngeal regions can be inflammatory. No suspicious hypermetabolic foci. There is no hypermetabolic cervical lymphadenopathy. CHEST: There are aortic and coronary calcifications. There is no hypermetabolic hilar or mediastinal lymphadenopathy. There is no hypermetabolic axillary lymphadenopathy. Non-FDG avid focal opacity in the right apex. There are no hypermetabolic foci in the lungs. ABDOMEN AND PELVIS: The liver is slightly heterogeneous activity but no focal lesions are identified. There are no hypermetabolic foci in the liver, spleen, adrenals. Few new Mildly hypermetabolic retrocrural lymph nodes measuring up to 0.7 x 1 cm (Max SUV 3.6). Non-FDG avid aortocaval retrocaval soft tissue. Physiologic activity is noted in the liver, renal collecting system, bladder and bowel. IVC filter. SKELETON: There are no hypermetabolic osseous lesions. -- IMPRESSION: 1. Neck: No suspicious hypermetabolic foci 2. Chest: No evidence of FDG avid neoplastic process 3. Abdomen and pelvis: Few new mildly hypermetabolic retrocrural lymph nodes suspicious for metastases. 4. Skeleton: No hypermetabolic osseous lesions Help Desk Support: [facility] Transcribe Date/Time: Nov 04 2022 3:44P Dictated by : BRANDON CARBONE MD This examination was interpreted and the report reviewed and electronically signed by: BRANDON CARBONE MD on Nov 04 2022 11:20PM EST [id number] N [facility] ROSITA KENNEDY ([id number]) 1945 F Date Time Provider Department 11/03/22 [facility]AG[facility] ESPINOSA (PAS) MARIKA During your visit today, we recorded the following information about you: Allergies As of Date: 11/03/2022 Noted Allergy Reaction CODEINE 02/24/2001 Comments: hives DYE 03/04/2018 8 - GI Upset Comments: Diarrhea after CT oral contrast 01/2018 ERYTHROMYCIN 08/03/2014 8 - GI Upset METHYLPREDNISOLONE 08/03/2014 4 - Hives Comments: IV SULFA (SULFONAMIDE ANTIBIOTICS) 02/24/2001 Comments: hives Date Reviewed: 08/28/2022 Reviewed by: Nelia Arreola APRN.ART PREPARATOR - Fully Assessed Reason for Visit: Appointment instructions [Other] Cmt: PET SCAN - 11/04/2022 @200pm Appointment reminder call- spoke with patient- went over dietary guidelines; dress comfortable, directions to office Prescriptions as of 11/03/2022 - levothyroxine (LEVOXYL) 25 mcg tablet Take 1 tablet by mouth once daily. Take on empty stomach. For Thyroid - mirtazapine (REMERON) 15 mg tablet Take 1 tablet by mouth daily at bedtime. - meloxicam (MOBIC) 15 mg tablet Take 1 tablet by mouth once daily. With food. - atorvastatin (LIPITOR) 40 mg tablet Take 1 tablet by mouth daily at bedtime. For cholesterol. - Methenamine Hippurate (HIPREX) 1 gram tablet Take 1 tablet by mouth twice daily with meals. - furosemide (LASIX) 20 mg tablet Take one tablet every day but if looses more than 10 pounds in a week then she needs to hold it. - potassium chloride (K-TAB) 10 mEq tablet Take 1 tablet by mouth twice daily. Take it every day along with lasix. If looses than 10 pounds then change to every other day - buPROPion (WELLBUTRIN) 75 mg tablet Take it once a day in the morning. - sertraline (ZOLOFT) 25 mg tablet Take 1 tablet by mouth once daily. - sertraline (ZOLOFT) 100 mg tablet Take 1 tablet by mouth once daily. To take along with 25 mgs to make a total of 125 mgs - travoprost (TRAVATAN Z) 0.004 % ophthalmic drops Use 1 Drop in both eyes daily at bedtime. - brimonidine-timolol (COMBIGAN) 0.2-0.5 % ophthalmic solution Use 1 Drop in the right eye twice daily. Use at 9 AM and 3 PM - ondansetron orally disintegrating (ZOFRAN ODT) 4 mg disintegrating tablet Take 1 tablet by mouth every 6 hours as needed for nausea/vomiting. - phenazopyridine (PYRIDIUM, GERIDIUM) 200 mg tablet Take 1 tablet by mouth three times daily as needed. - aspirin, enteric coated (ECOTRIN LOW STRENGTH) 81 mg EC tablet Take 1 tablet by mouth once daily. - calcium carb/vitamin D3/vit K1 (VIACTIV ORAL) Take 1 tablet by mouth once daily. - L GASSERI/B BIFIDUM/B LONGUM ([employer] HEALTH ORAL) Take by mouth. - CHOLECALCIFEROL, VITAMIN D3, (VITAMIN D3 ORAL) Take by mouth once daily. - LUTEIN ORAL Take by mouth. - MULTIVITAMIN TABLET PO Take one(1) tablet daily. 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 COAG (chronic open-angle glaucoma) - Both Eyes *07/06/2014 10/14/2017 Glaucomatous atrophy (cupping) of optic disc - *07/06/2014 08/05/2015 Visual field defect, unspecified - Right Eye [H*07/06/2014 08/05/2015 Other and combined forms of senile cataract - B*07/06/2014 05/23/2019 History of uterine cancer [Z85.42] 08/08/2014 Regular astigmatism - Both Eyes [H52.229] 11/08/2014 S/P laser cataract surgery [Z98.49] 11/22/2014 Lens replaced by other means - Left Eye [Z96.1] 11/29/2014 08/05/2015 Nasal step visual field defect of right eye [H5*08/05/2015 CRVO (central retinal vein occlusion) [H34.8192]08/05/2015 Pseudophakia of both eyes [Z96.1] 08/05/2015 Primary open angle glaucoma of both eyes, moder*10/01/2016 10/14/2017 Visual field loss [H53.40] 10/01/2016 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] 10/01/2016 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89] 06/23/2018 Sensorineural hearing loss, bilateral [H90.3] 06/28/2018 Elevated cancer antigen 125 (CA-125) [R97.1] 10/18/2018 Stable central retinal vein occlusion of right *02/15/2019 Prima (more content not included)... Normal [facility] Absolute lymphocyte countOrd ered By: Dr. Min on 09-28-2022 Lymphocytes Auto (Unsp spec) [#/Vol] 1.41 10*3/uL 0.83-4.51 [facility] Basophil percentageOrdered B y: Dr. Min on 09-28-2022 Basophils/100 WBC (Bld) 0.7 % 0-1 [facility] Bilirubin [Mass/Vol] 0.30 mg/dL 0.20-1.00 [facility] Comment on above: For patients on eltr ombopag therapy, use of Dimension [place] TBIL is not recommended. Chloride [Moles/Vol] 107 mmol/L 98-107 [facility] Eosinophils/100 WBC (Bld) 2.3 % 0-5 [facility] Glucose [Mass/Vol] 93 mg/dL 74-106 [facility] Neutrophils (Bld) [#/Vol] 6.2 10*3/uL 2.0-7.7 [facility] Neutrophils/100 WBC (Bld) 71.1 % 47-70 [facility] Potassium [Moles/Vol] 4.0 mmol/L 3.5-5.1 [facility] Comment on above: Slight Hemolysis, Re sult may be falsely increased. Protein [Mass/Vol] 7.8 g/dL 6.4-8.2 [facility] Sodium [Moles/Vol] 142 mmol/L 136-145 [facility] WBC (Bld) [#/Vol] 8.7 10*3/uL 4.4-11.0 [facility] Blood erythrocytes count (nu mber/volume)Ordered By: Dr. Min on 09-28-2022 RBC (Bld) [#/Vol] 3.80 10*6/uL 4.2-5.4 [facility] Blood hemoglobin measurement (mass/volume)Ordered By: Dr. Min on 09-28-2022 Hemoglobin (Bld) [Mass/Vol] 10.2 g/dL 12.0-15.0 [facility] Blood lymphocytes/100 leukoc ytesOrdered By: Dr. Min on 09-28-2022 Lymphocytes/100 WBC (Bld) 16.1 % 19-41 [facility] Blood monocytes/100 leukocyt esOrdered By: Dr. Min on 09-28-2022 Monocytes/100 WBC (Bld) 8.1 % 0-10 [facility] Blood platelet mean volumeOr dered By: Dr. Min on 09-28-2022 Platelet mean volume (Bld) [Entitic vol] 9.4 fL 6.2-12.0 [facility] Determination of erythrocyte mean corpuscular volume (MCV)Ordered By: Dr. Min on 09-28-2022 MCV (RBC) [Entitic vol] 92.4 fL 81-99 [facility] Hematocrit Auto (Bld) [Volum e fraction]Ordered By: Dr. Min on 09-28-2022 Hematocrit (Bld) [Volume fraction] 35.1 % 37-47 [facility] Laboratory - Chemistry and C hemistry - challengeOrdered By: Dr. Min on 09-28-2022 ALP [Catalytic activity/Vol] 126 U/L 45-117 [facility] ALT [Catalytic activity/Vol] 19 U/L 13-56 [facility] CO2 [Moles/Vol] 26.0 mmol/L 21.0-32.0 [facility] Globulin (S) [Mass/Vol] 4.4 g/dL 2.2-4.2 [facility] Urea nitrogen/Creatinine [Mass ratio] 23.4 mg/mg 10-20 [facility] Laboratory - Hematology and Cell countsOrdered By: Dr. Min on 09-28-2022 Erythrocyte distribution width (RBC) [Entitic vol] 52.6 fL 35.1-43.9 [facility] Erythrocyte distribution width (RBC) [Ratio] 16.1 % 11.6-14.6 [facility] Immature granulocytes/100 WBC (Bld) 1.700 % 0.0-0.9 [facility] Comment on above: IG% - Immature Granu locytes (promyelocytes, myelocytes and metamyelocytes) > 1% indicates that a LEFT SHIFT is Present. MCH (RBC) [Entitic mass] 26.8 pg 27.0-32.0 [facility] Nucleated RBC/100 WBC (Bld) [Ratio] 0 % 0-5 [facility] MCHC Auto (RBC) [Mass/Vol]Or dered By: Dr. Min on 09-28-2022 MCHC (RBC) [Mass/Vol] 29.1 g/dL 32-36 [facility] No Panel InformationOrdered By: Dr. Min on 09-28-2022 Estimated GFR (MDRD) Amer 94 mL/min >60 [facility] Comment on above: GFR Calc Estimated GFR (MDRD) Non-Af Amer 78 mL/min >60 [facility] Comment on above: Non- GFR Calc Hepatitis C Antibody Non-Reactive Nonreactive [facility] Comment on above: Non Reactive: < 0.8 Equivocal: >/= 0.8 to < 1.0 Reactive: >/= 1.0The CDC recommends that a reactive/equivocal HCV antibody result be followed up by the HCV Nucleic Acid Amplificationtest (159144) Thyroid Stimulating Hormone (TSH) 3.00 uIU/mL 0.358-3.74 [facility] Vitamin D 25-Hydroxy 58.2 ng/mL [facility] Comment on above: Vitamin D 25(OH) Sta tus Range Deficiency <20 ng/mL (50nmol/L) Insufficiency 20 - 30 ng/mL (50 - 75 nmol/L) Sufficiency 30 - 100 ng/mL (75 - 250 nmol/L) Toxicity >100 ng/mL (>250 nmol/L) Platelets bldOrdered By: Dr. Min on 09-28-2022 Platelets (Bld) [#/Vol] 520 10*3/uL 150-450 [facility] Serum or plasma albumin felipe urement (mass/volume)Ordered By: Dr. Min on 09-28-2022 Albumin [Mass/Vol] 3.4 g/dL 3.2-5.0 [facility] Serum or plasma albumin/glob ulin mass ratioOrdered By: Dr. Min on 09-28-2022 Albumin/Globulin [Mass ratio] 0.8 {ratio} 0.9-2.4 [facility] Serum or plasma calcium felipe urement (mass/volume)Ordered By: Dr. Min on 09-28-2022 Calcium [Mass/Vol] 9.4 mg/dL 8.5-10.1 [facility] Serum or plasma creatinine m easurement (mass/volume)Ordered By: Dr. Min on 09-28-2022 Creatinine [Mass/Vol] 0.77 mg/dL 0.55-1.02 [facility] Comment on above: The validity of the calculated GFR & GFRAA in patients over 70 years has not been determined. Clinical correlation is essential. Serum or plasma urea nitroge n measurement (mass/volume)Ordered By: Dr. Min on 09-28-2022 Urea nitrogen [Mass/Vol] 18 mg/dL 7-18 [facility] Thin prep Papanicolaou smear with manual screeningOrdered By: Dr. Min on 09-28-2022 Thin prep Papanicolaou smear with manual screening 26 U/L 15-37 [facility] Comment on above: Slight Hemolysis, Re sult may be falsely increased. Thin prep Papanicolaou smear with manual screening 9 5-15 [facility] Absolute lymphocyte countOrd ered By: Dr. Min on 09-19-2022 Lymphocytes Auto (Unsp spec) [#/Vol] 1.40 10*3/uL 0.83-4.51 [facility] Basophil percentageOrdered B y: Dr. Min on 09-19-2022 Basophils/100 WBC (Bld) 0.7 % 0-1 [facility] Chloride [Moles/Vol] 107 mmol/L 98-107 [facility] Eosinophils/100 WBC (Bld) 3.5 % 0-5 [facility] Glucose [Mass/Vol] 111 mg/dL 74-106 [facility] Comment on above: Fasting Glucose resu lt from 100 to 125 mg/dL suggests IMPAIRED HOMEOSTASIS per A.D.A. criteria. Neutrophils (Bld) [#/Vol] 6.3 10*3/uL 2.0-7.7 [facility] Neutrophils/100 WBC (Bld) 68.3 % 47-70 [facility] Potassium [Moles/Vol] 3.9 mmol/L 3.5-5.1 [facility] Sodium [Moles/Vol] 139 mmol/L 136-145 [facility] WBC (Bld) [#/Vol] 9.2 10*3/uL 4.4-11.0 [facility] Blood erythrocytes count (nu mber/volume)Ordered By: Dr. Min on 09-19-2022 RBC (Bld) [#/Vol] 3.01 10*6/uL 4.2-5.4 [facility] Blood hemoglobin measurement (mass/volume)Ordered By: Dr. Min on 09-19-2022 Hemoglobin (Bld) [Mass/Vol] 8.2 g/dL 12.0-15.0 [facility] Blood lymphocytes/100 leukoc ytesOrdered By: Dr. Min on 09-19-2022 Lymphocytes/100 WBC (Bld) 15.3 % 19-41 [facility] Blood monocytes/100 leukocyt esOrdered By: Dr. Min on 09-19-2022 Monocytes/100 WBC (Bld) 8.4 % 0-10 [facility] Blood platelet mean volumeOr dered By: Dr. Min on 09-19-2022 Platelet mean volume (Bld) [Entitic vol] 8.8 fL 6.2-12.0 [facility] Determination of erythrocyte mean corpuscular volume (MCV)Ordered By: Dr. Min on 09-19-2022 MCV (RBC) [Entitic vol] 92.0 fL 81-99 [facility] Hematocrit Auto (Bld) [Volum e fraction]Ordered By: Dr. Min on 09-19-2022 Hematocrit (Bld) [Volume fraction] 27.7 % 37-47 [facility] Laboratory - Chemistry and C hemistry - challengeOrdered By: Dr. Min on 09-19-2022 CO2 [Moles/Vol] 27.0 mmol/L 21.0-32.0 [facility] Urea nitrogen/Creatinine [Mass ratio] 25.9 mg/mg 10-20 [facility] Laboratory - Hematology and Cell countsOrdered By: Dr. Min on 09-19-2022 Erythrocyte distribution width (RBC) [Entitic vol] 49.5 fL 35.1-43.9 [facility] Erythrocyte distribution width (RBC) [Ratio] 14.9 % 11.6-14.6 [facility] Immature granulocytes/100 WBC (Bld) 3.800 % 0.0-0.9 [facility] Comment on above: IG% - Immature Granu locytes (promyelocytes, myelocytes and metamyelocytes) > 1% indicates that a LEFT SHIFT is Present. MCH (RBC) [Entitic mass] 27.2 pg 27.0-32.0 [facility] Nucleated RBC/100 WBC (Bld) [Ratio] 0 % 0-5 [facility] MCHC Auto (RBC) [Mass/Vol]Or dered By: Dr. Min on 09-19-2022 MCHC (RBC) [Mass/Vol] 29.6 g/dL 32-36 [facility] No Panel InformationOrdered By: Dr. Min on 09-19-2022 Estimated Creatinine Clearance Calc 35.45 ml/min [facility] Estimated GFR (MDRD) Amer 100 mL/min >60 [facility] Comment on above: GFR Calc Estimated GFR (MDRD) Non-Af Amer 82 mL/min >60 [facility] Comment on above: Non- GFR Calc Platelets bldOrdered By: Dr. Min on 09-19-2022 Platelets (Bld) [#/Vol] 449 10*3/uL 150-450 [facility] Serum or plasma calcium felipe urement (mass/volume)Ordered By: Dr. Min on 09-19-2022 Calcium [Mass/Vol] 8.7 mg/dL 8.5-10.1 [facility] Serum or plasma creatinine m easurement (mass/volume)Ordered By: Dr. Min on 09-19-2022 Creatinine [Mass/Vol] 0.73 mg/dL 0.55-1.02 [facility] Comment on above: The validity of the calculated GFR & GFRAA in patients over 70 years has not been determined. Clinical correlation is essential. Serum or plasma urea nitroge n measurement (mass/volume)Ordered By: Dr. Min on 09-19-2022 Urea nitrogen [Mass/Vol] 19 mg/dL 7-18 [facility] Thin prep Papanicolaou smear with manual screeningOrdered By: Dr. Min on 09-19-2022 Thin prep Papanicolaou smear with manual screening 5 5-15 [facility] Culture, urineOrdered By: Dr Heydi Min on 09-16-2022 Bacteria identified Cx Nom (U) Culture exhibits no growth. [facility] COVID-19 virus antigen assay Ordered By: Dr. Min on 09-15-2022 SARS-CoV-2 (COVID-19) Ag IA.rapid Ql (Resp) [facility] Basophil percentageOrdered B y: Dr. Min on 09-14-2022 Basophil percentage 0 SEEN /hpf 0-5 [facility] Bilirubin Test strip Ql (U)O rdered By: Dr. Min on 09-14-2022 Bilirubin Ql (U) Negative Negative [facility] Ketones Test strip Ql (U)Ord ered By: Dr. Min on 09-14-2022 Ketones Ql (U) Negative Negative [facility] Mucus LM Ql (Urine sed)Order ed By: Dr. Min on 09-14-2022 Mucus Ql (Urine sed) 0 SEEN /hpf [facility] Nitrite Test strip Ql (U)Ord ered By: Dr. Min on 09-14-2022 Nitrite Ql (U) Negative Negative [facility] Protein Test strip Ql (U)Ord ered By: Dr. Min on 09-14-2022 Protein Ql (U) Negative Negative [facility] Squamous epithelial cells de tection in urine sediment by light microscopyOrdered By: Dr. Min on 09-14-2022 Epithelial cells.squamous LM Ql (Urine sed) 0-5 SEEN /hpf 5-10 [facility] Urine blood detectionOrdered By: Dr. Min on 09-14-2022 RBC Ql (U) Negative Negative [facility] RBC Ql (U) 0 SEEN /hpf 0-5 [facility] Urine clarityOrdered By: Dr. Min on 09-14-2022 Clarity (U) Sl. Cloudy Clear [facility] Urine color determinationOrd ered By: Dr. Min on 09-14-2022 Color (U) Yellow Yellow [facility] Urine glucose detectionOrder ed By: Dr. Min on 09-14-2022 Glucose Ql (U) Normal mg/dl Normal [facility] Urine leukocyte esterase det ection by dipstickOrdered By: Dr. Min on 09-14-2022 Leukocyte esterase Test strip Ql (U) Negative Negative [facility] Urine pHOrdered By: Dr. Min on 09-14-2022 pH (U) 6.5 [pH] 5.0 - 8.0 [facility] Urine sediment bacteria coun t by microscopy (number/high power field)Ordered By: Dr. Min on 09-14-2022 Bacteria LM.HPF (Urine sed) [#/Area] 0 /[HPF] None Seen [facility] Urine specific gravity measu rementOrdered By: Dr. Min on 09-14-2022 Specific gravity (U) [Rel density] 1.010 1.002-1.030 [facility] Urobilinogen Auto test strip Ql (U)Ordered By: Dr. Min on 09-14-2022 Urobilinogen Ql (U) Normal mg/dl Normal [facility] COVID-19 virus antigen assay Ordered By: Dr. Schaefer on 09-11-2022 SARS-CoV-2 (COVID-19) Ag IA.rapid Ql (Resp) [facility] Laboratory - CoagulationOrde red By: Dr. Schaefer on 09-11-2022 aPTT Coag (Bld) [Time] 62.7 s 24.1-36.2 [facility] Absolute lymphocyte countOrd ered By: Britany Garza on 09-09-2022 Lymphocytes Auto (Unsp spec) [#/Vol] 1.88 10*3/uL 0.83-4.51 [facility] Basophil percentageOrdered B y: Britany Garza on 09-09-2022 Basophils/100 WBC (Bld) 0.3 % 0-1 [facility] Chloride [Moles/Vol] 102 mmol/L 98-107 [facility] Eosinophils/100 WBC (Bld) 2.9 % 0-5 [facility] Glucose [Mass/Vol] 122 mg/dL 74-106 [facility] Comment on above: Fasting Glucose resu lt from 100 to 125 mg/dL suggests IMPAIRED HOMEOSTASIS per A.D.A. criteria. Neutrophils (Bld) [#/Vol] 10.1 10*3/uL 2.0-7.7 [facility] Neutrophils/100 WBC (Bld) 72.9 % 47-70 [facility] Potassium [Moles/Vol] 3.3 mmol/L 3.5-5.1 [facility] Sodium [Moles/Vol] 138 mmol/L 136-145 [facility] WBC (Bld) [#/Vol] 13.9 10*3/uL 4.4-11.0 [facility] Blood erythrocytes count (nu mber/volume)Ordered By: Britany Garza on 09-09-2022 RBC (Bld) [#/Vol] 2.97 10*6/uL 4.2-5.4 [facility] Blood hemoglobin measurement (mass/volume)Ordered By: Britany Garza on 09-09-2022 Hemoglobin (Bld) [Mass/Vol] 8.4 g/dL 12.0-15.0 [facility] Blood lymphocytes/100 leukoc ytesOrdered By: Britany Kayla on 09-09-2022 Lymphocytes/100 WBC (Bld) 13.6 % 19-41 [facility] Blood monocytes/100 leukocyt esOrdered By: Britanymariza Garza on 09-09-2022 Monocytes/100 WBC (Bld) 7.8 % 0-10 [facility] Blood platelet mean volumeOr dered By: Britany Garza on 09-09-2022 Platelet mean volume (Bld) [Entitic vol] 9.2 fL 6.2-12.0 [facility] Determination of erythrocyte mean corpuscular volume (MCV)Ordered By: Britanymariza [facility] on 09-09-2022 MCV (RBC) [Entitic vol] 90.9 fL 81-99 [facility] Hematocrit Auto (Bld) [Volum e fraction]Ordered By: Britany Kayla on 09-09-2022 Hematocrit (Bld) [Volume fraction] 27.0 % 37-47 [facility] Laboratory - Chemistry and C hemistry - challengeOrdered By: [facility] CO2 [Moles/Vol] 26.0 mmol/L 21.0-32.0 [facility] Urea nitrogen/Creatinine [Mass ratio] 23.0 mg/mg 10-20 [facility] Laboratory - Hematology and Cell countsOrdered By: [facility] on 09-09-2022 Erythrocyte distribution width (RBC) [Entitic vol] 46.1 fL 35.1-43.9 [facility] Erythrocyte distribution width (RBC) [Ratio] 13.9 % 11.6-14.6 [facility] Immature granulocytes/100 WBC (Bld) 2.500 % 0.0-0.9 [facility] Comment on above: IG% - Immature Granu locytes (promyelocytes, myelocytes and metamyelocytes) > 1% indicates that a LEFT SHIFT is Present. MCH (RBC) [Entitic mass] 28.3 pg 27.0-32.0 [facility] Nucleated RBC/100 WBC (Bld) [Ratio] 0 % 0-5 [facility] MCHC Auto (RBC) [Mass/Vol]Or dered By: Britany Garza on 09-09-2022 MCHC (RBC) [Mass/Vol] 31.1 g/dL 32-36 [facility] No Panel InformationOrdered By: Britany Garza on 09-09-2022 Estimated Creatinine Clearance Calc 35.45 ml/min [facility] Estimated GFR (MDRD) Amer 99 mL/min >60 [facility] Comment on above: GFR Calc Estimated GFR (MDRD) Non-Af Amer 82 mL/min >60 [facility] Comment on above: Non- GFR Calc Platelets bldOrdered By: Gus Garza on 09-09-2022 Platelets (Bld) [#/Vol] 423 10*3/uL 150-450 [facility] Serum or plasma calcium felipe urement (mass/volume)Ordered By: Britany Garza on 09-09-2022 Calcium [Mass/Vol] 8.6 mg/dL 8.5-10.1 [facility] Serum or plasma creatinine m easurement (mass/volume)Ordered By: Britany Garza on 09-09-2022 Creatinine [Mass/Vol] 0.74 mg/dL 0.55-1.02 [facility] Comment on above: The validity of the calculated GFR & GFRAA in patients over 70 years has not been determined. Clinical correlation is essential. Serum or plasma urea nitroge n measurement (mass/volume)Ordered By: Britany Garza on 09-09-2022 Urea nitrogen [Mass/Vol] 17 mg/dL 7-18 [facility] Thin prep Papanicolaou smear with manual screeningOrdered By: Britany Garza on 09-09-2022 Thin prep Papanicolaou smear with manual screening 10 5-15 [facility] No Panel InformationOrdered By: Dr. Schaefer on 09-08-2022 Thyroid Stimulating Hormone (TSH) 3.45 uIU/mL 0.358-3.74 [facility] COVID-19 virus antigen assay Ordered By: Dr. Min on 09-07-2022 SARS-CoV-2 (COVID-19) Ag IA.rapid Ql (Resp) [facility] INR in Blood by Coagulation assayOrdered By: Dr. Schaefer on 09-07-2022 INR Coag (Bld) [Relative time] 1.1 {INR} [facility] Laboratory - CoagulationOrde red By: Dr. Schaefer on 09-07-2022 PT Coag (PPP) [Time] 13.5 s 11.7-14.9 [facility] Absolute lymphocyte countOrd ered By: Dr. Min on 09-04-2022 Lymphocytes Auto (Unsp spec) [#/Vol] 1.39 10*3/uL 0.83-4.51 [facility] Basophil percentageOrdered B y: Dr. Min on 09-04-2022 Basophils/100 WBC (Bld) 0.5 % 0-1 [facility] Chloride [Moles/Vol] 107 mmol/L 98-107 [facility] Eosinophils/100 WBC (Bld) 2.7 % 0-5 [facility] Glucose [Mass/Vol] 106 mg/dL 74-106 [facility] Comment on above: Fasting Glucose resu lt from 100 to 125 mg/dL suggests IMPAIRED HOMEOSTASIS per A.D.A. criteria. Neutrophils (Bld) [#/Vol] 7.8 10*3/uL 2.0-7.7 [facility] Neutrophils/100 WBC (Bld) 73.1 % 47-70 [facility] Potassium [Moles/Vol] 3.6 mmol/L 3.5-5.1 [facility] Sodium [Moles/Vol] 139 mmol/L 136-145 [facility] WBC (Bld) [#/Vol] 10.7 10*3/uL 4.4-11.0 [facility] Blood erythrocytes count (nu mber/volume)Ordered By: Dr. Min on 09-04-2022 RBC (Bld) [#/Vol] 3.22 10*6/uL 4.2-5.4 [facility] Blood hemoglobin measurement (mass/volume)Ordered By: Dr. Min on 09-04-2022 Hemoglobin (Bld) [Mass/Vol] 9.1 g/dL 12.0-15.0 [facility] Blood lymphocytes/100 leukoc ytesOrdered By: Dr. Min on 09-04-2022 Lymphocytes/100 WBC (Bld) 13.1 % 19-41 [facility] Blood monocytes/100 leukocyt esOrdered By: Dr. Min on 09-04-2022 Monocytes/100 WBC (Bld) 9.0 % 0-10 [facility] Blood platelet mean volumeOr dered By: Dr. Min on 09-04-2022 Platelet mean volume (Bld) [Entitic vol] 9.3 fL 6.2-12.0 [facility] Determination of erythrocyte mean corpuscular volume (MCV)Ordered By: Dr. Min on 09-04-2022 MCV (RBC) [Entitic vol] 89.4 fL 81-99 [facility] Hematocrit Auto (Bld) [Volum e fraction]Ordered By: Dr. Min on 09-04-2022 Hematocrit (Bld) [Volume fraction] 28.8 % 37-47 [facility] Laboratory - Chemistry and C hemistry - challengeOrdered By: Dr. Min on 09-04-2022 CO2 [Moles/Vol] 22.0 mmol/L 21.0-32.0 [facility] Urea nitrogen/Creatinine [Mass ratio] 21.9 mg/mg 10-20 [facility] Laboratory - Hematology and Cell countsOrdered By: Dr. Min on 09-04-2022 Erythrocyte distribution width (RBC) [Entitic vol] 44.9 fL 35.1-43.9 [facility] Erythrocyte distribution width (RBC) [Ratio] 13.6 % 11.6-14.6 [facility] Immature granulocytes/100 WBC (Bld) 1.600 % 0.0-0.9 [facility] Comment on above: IG% - Immature Granu locytes (promyelocytes, myelocytes and metamyelocytes) > 1% indicates that a LEFT SHIFT is Present. MCH (RBC) [Entitic mass] 28.3 pg 27.0-32.0 [facility] Nucleated RBC/100 WBC (Bld) [Ratio] 0 % 0-5 [facility] MCHC Auto (RBC) [Mass/Vol]Or dered By: Dr. Min on 09-04-2022 MCHC (RBC) [Mass/Vol] 31.6 g/dL 32-36 [facility] No Panel InformationOrdered By: Dr. Min on 09-04-2022 Estimated Creatinine Clearance Calc 40.83 ml/min [facility] Estimated GFR (MDRD) Amer 93 mL/min >60 [facility] Comment on above: GFR Calc Estimated GFR (MDRD) Non-Af Amer 77 mL/min >60 [facility] Comment on above: Non- GFR Calc Platelets bldOrdered By: Dr. Min on 09-04-2022 Platelets (Bld) [#/Vol] 320 10*3/uL 150-450 [facility] Serum or plasma calcium felipe urement (mass/volume)Ordered By: Dr. Min on 09-04-2022 Calcium [Mass/Vol] 8.2 mg/dL 8.5-10.1 [facility] Serum or plasma creatinine m easurement (mass/volume)Ordered By: Dr. Min on 09-04-2022 Creatinine [Mass/Vol] 0.78 mg/dL 0.55-1.02 [facility] Comment on above: The validity of the calculated GFR & GFRAA in patients over 70 years has not been determined. Clinical correlation is essential. Serum or plasma urea nitroge n measurement (mass/volume)Ordered By: Dr. Min on 09-04-2022 Urea nitrogen [Mass/Vol] 17 mg/dL 7-18 [facility] Thin prep Papanicolaou smear with manual screeningOrdered By: Dr. Min on 09-04-2022 Thin prep Papanicolaou smear with manual screening 10 5-15 [facility] Absolute lymphocyte countOrd ered By: Dr. Wood on 09-03-2022 Lymphocytes Auto (Unsp spec) [#/Vol] 1.13 10*3/uL 0.83-4.51 [facility] Basophil percentageOrdered B y: Dr. Wood on 09-03-2022 Basophils/100 WBC (Bld) 0.3 % 0-1 [facility] Bilirubin [Mass/Vol] 0.40 mg/dL 0.20-1.00 [facility] Comment on above: For patients on eltr ombopag therapy, use of Dimension [place] TBIL is not recommended. Chloride [Moles/Vol] 107 mmol/L 98-107 [facility] Eosinophils/100 WBC (Bld) 2.0 % 0-5 [facility] Glucose [Mass/Vol] 99 mg/dL 74-106 [facility] Neutrophils (Bld) [#/Vol] 8.3 10*3/uL 2.0-7.7 [facility] Neutrophils/100 WBC (Bld) 76.4 % 47-70 [facility] Potassium [Moles/Vol] 3.7 mmol/L 3.5-5.1 [facility] Protein [Mass/Vol] 6.2 g/dL 6.4-8.2 [facility] Sodium [Moles/Vol] 140 mmol/L 136-145 [facility] WBC (Bld) [#/Vol] 10.9 10*3/uL 4.4-11.0 [facility] Blood erythrocytes count (nu mber/volume)Ordered By: Dr. Wood on 09-03-2022 RBC (Bld) [#/Vol] 3.32 10*6/uL 4.2-5.4 [facility] Blood hemoglobin measurement (mass/volume)Ordered By: Dr. Wood on 09-03-2022 Hemoglobin (Bld) [Mass/Vol] 9.6 g/dL 12.0-15.0 [facility] Blood lymphocytes/100 leukoc ytesOrdered By: Dr. Wood on 09-03-2022 Lymphocytes/100 WBC (Bld) 10.4 % 19-41 [facility] Blood monocytes/100 leukocyt esOrdered By: Dr. Wood on 09-03-2022 Monocytes/100 WBC (Bld) 9.5 % 0-10 [facility] Blood platelet mean volumeOr dered By: Dr. Wood on 09-03-2022 Platelet mean volume (Bld) [Entitic vol] 9.5 fL 6.2-12.0 [facility] Determination of erythrocyte mean corpuscular volume (MCV)Ordered By: Dr. Wood on 09-03-2022 MCV (RBC) [Entitic vol] 92.2 fL 81-99 [facility] Hematocrit Auto (Bld) [Volum e fraction]Ordered By: Dr. Wood on 09-03-2022 Hematocrit (Bld) [Volume fraction] 30.6 % 37-47 [facility] Laboratory - Chemistry and C hemistry - challengeOrdered By: Dr. Wood on 09-03-2022 ALP [Catalytic activity/Vol] 77 U/L 45-117 [facility] ALT [Catalytic activity/Vol] 13 U/L 13-56 [facility] CO2 [Moles/Vol] 25.0 mmol/L 21.0-32.0 [facility] Globulin (S) [Mass/Vol] 3.6 g/dL 2.2-4.2 [facility] Urea nitrogen/Creatinine [Mass ratio] 20.4 mg/mg 10-20 [facility] Laboratory - Hematology and Cell countsOrdered By: Dr. Wood on 09-03-2022 Erythrocyte distribution width (RBC) [Entitic vol] 46.2 fL 35.1-43.9 [facility] Erythrocyte distribution width (RBC) [Ratio] 13.7 % 11.6-14.6 [facility] Immature granulocytes/100 WBC (Bld) 1.400 % 0.0-0.9 [facility] Comment on above: IG% - Immature Granu locytes (promyelocytes, myelocytes and metamyelocytes) > 1% indicates that a LEFT SHIFT is Present. MCH (RBC) [Entitic mass] 28.9 pg 27.0-32.0 [facility] Nucleated RBC/100 WBC (Bld) [Ratio] 0 % 0-5 [facility] Laboratory - Microbiology an d Antimicrobial susceptibilityOrdered By: Dr. Wood on 09-03-2022 Respiratory pathogens DNA and RNA 12b panel NURYS+probe (Unsp spec) [facility] MCHC Auto (RBC) [Mass/Vol]Or dered By: Dr. Wood on 09-03-2022 MCHC (RBC) [Mass/Vol] 31.4 g/dL 32-36 [facility] No Panel InformationOrdered By: Dr. Wood on 09-03-2022 Estimated Creatinine Clearance Calc 44.98 ml/min [facility] Estimated GFR (MDRD) Amer 80 mL/min >60 [facility] Comment on above: GFR Calc Estimated GFR (MDRD) Non-Af Amer 66 mL/min >60 [facility] Comment on above: Non- GFR Calc Platelets bldOrdered By: Dr. Wood on 09-03-2022 Platelets (Bld) [#/Vol] 243 10*3/uL 150-450 [facility] Serum or plasma albumin felipe urement (mass/volume)Ordered By: Dr. Wood on 09-03-2022 Albumin [Mass/Vol] 2.6 g/dL 3.2-5.0 [facility] Serum or plasma albumin/glob ulin mass ratioOrdered By: Dr. Wood on 09-03-2022 Albumin/Globulin [Mass ratio] 0.7 {ratio} 0.9-2.4 [facility] Serum or plasma calcium felipe urement (mass/volume)Ordered By: Dr. Wood on 09-03-2022 Calcium [Mass/Vol] 8.1 mg/dL 8.5-10.1 [facility] Serum or plasma creatinine m easurement (mass/volume)Ordered By: Dr. Wood on 09-03-2022 Creatinine [Mass/Vol] 0.88 mg/dL 0.55-1.02 [facility] Comment on above: The validity of the calculated GFR & GFRAA in patients over 70 years has not been determined. Clinical correlation is essential. Serum or plasma urea nitroge n measurement (mass/volume)Ordered By: Dr. Wood on 09-03-2022 Urea nitrogen [Mass/Vol] 18 mg/dL 7-18 [facility] Thin prep Papanicolaou smear with manual screeningOrdered By: Dr. Wood on 09-03-2022 Thin prep Papanicolaou smear with manual screening 13 U/L 15-37 [facility] Thin prep Papanicolaou smear with manual screening 8 5-15 [facility] Iron measurement (mass/mass) Ordered By: Dr. Wood on 09-02-2022 Iron (Unsp spec) [Mass/Mass] 12 ug/dL 50-170 [facility] Laboratory - CoagulationOrde red By: Dr. Wood on 09-02-2022 aPTT Coag (Bld) [Time] 32.2 s 24.1-36.2 [facility] No Panel InformationOrdered By: Dr. Wood on 09-02-2022 Total Iron Binding Capacity 239 ug/dL 250-450 [facility] Serum or plasma ferritin dylan surement (mass/volume)Ordered By: Dr. Wood on 09-02-2022 Ferritin [Mass/Vol] 234 ng/mL 8-252 [facility] Serum or plasma iron saturat ion measurement (mass fraction)Ordered By: Dr. Wood on 09-02-2022 Iron saturation [Mass fraction] 5.0 % 15.0-55.0 [facility] Stool gastrointestinal hemog lobin detection by immunologic methodOrdered By: Dr. Solorio on 09-02-2022 Lower GI hemoglobin IA Ql (Stl) [facility] Basophil percentageOrdered B y: Dr. Solorio on 09-01-2022 Basophil percentage 2.6 mg/dL 2.5-4.9 [facility] Laboratory - Chemistry and C hemistry - challengeOrdered By: Dr. Solorio on 09-01-2022 Magnesium [Mass/Vol] 2.1 mg/dL 1.6-2.6 [facility] Absolute lymphocyte counton 08-31-2022 Lymphocytes Auto (Unsp spec) [#/Vol] 0.87 10*3/uL 0.83-4.51 [facility] Work Phone: Basophil percentageOrdered B y: Dr. Gonzáles on 08-31-2022 Basophil percentage 0-5 SEEN /hpf 0-5 [facility] Basophil percentageon 2022 Basophils/100 WBC (Bld) 0.3 % 0-1 [facility] Work Phone: Bilirubin [Mass/Vol] 0.50 mg/dL 0.20-1.00 [facility] Work Phone: Comment on above: For patients on eltr ombopag therapy, use of Dimension [place] TBIL is not recommended. Chloride [Moles/Vol] 108 mmol/L 98-107 [facility] Work Phone: Eosinophils/100 WBC (Bld) 0.2 % 0-5 [facility] Work Phone: Glucose [Mass/Vol] 148 mg/dL 74-106 [facility] Work Phone: Comment on above: Fasting Glucose resu lt greater than or equal to 126 mg/dL suggests DIABETES MELLITUS per A.D.A. criteria. Neutrophils (Bld) [#/Vol] 10.1 10*3/uL 2.0-7.7 [facility] Work Phone: Neutrophils/100 WBC (Bld) 82.6 % 47-70 [facility] Work Phone: Potassium [Moles/Vol] 4.4 mmol/L 3.5-5.1 [facility] Work Phone: Protein [Mass/Vol] 7.4 g/dL 6.4-8.2 [facility] Work Phone: Sodium [Moles/Vol] 139 mmol/L 136-145 [facility] Work Phone: WBC (Bld) [#/Vol] 12.3 10*3/uL 4.4-11.0 [facility] [facility] Work Phone: Bilirubin Test strip Ql (U)O rdered By: Dr. Gonzáles on 08-31-2022 Bilirubin Ql (U) Negative Negative [facility] Blood erythrocytes count (nu mber/volume)on 08-31-2022 RBC (Bld) [#/Vol] 3.72 10*6/uL 4.2-5.4 [facility] Work Phone: Blood hemoglobin measurement (mass/volume)on 08-31-2022 Hemoglobin (Bld) [Mass/Vol] 10.5 g/dL 12.0-15.0 [facility] Work Phone: Blood lymphocytes/100 leukoc yteson 08-31-2022 Lymphocytes/100 WBC (Bld) 7.1 % 19-41 [facility] Work Phone: Blood monocytes/100 leukocyt eson 08-31-2022 Monocytes/100 WBC (Bld) 8.7 % 0-10 [facility] Work Phone: Blood platelet mean volumeon 08-31-2022 Platelet mean volume (Bld) [Entitic vol] 9.9 fL 6.2-12.0 [facility] Work Phone: Determination of erythrocyte mean corpuscular volume (MCV)on 08-31-2022 MCV (RBC) [Entitic vol] 95.7 fL 81-99 [facility] Work Phone: Hematocrit Auto (Bld) [Volum e fraction]on 08-31-2022 Hematocrit (Bld) [Volume fraction] 35.6 % 37-47 [facility] Work Phone: Hyaline casts LM.LPF (Urine sed) [#/Area]Ordered By: Dr. Gonzáles on 08-31-2022 Hyaline casts (Urine sed) [#/Area] 0 /[LPF] 0-5 [facility] Ketones Test strip Ql (U)Ord ered By: Dr. Gonzáles on 08-31-2022 Ketones Ql (U) Negative Negative [facility] Laboratory - Chemistry and C hemistry - challengeon 08-31-2022 ALP [Catalytic activity/Vol] 96 U/L 45-117 [facility] Work Phone: ALT [Catalytic activity/Vol] 14 U/L 13-56 [facility] Work Phone: CO2 [Moles/Vol] 24.0 mmol/L 21.0-32.0 [facility] Work Phone: Globulin (S) [Mass/Vol] 3.8 g/dL 2.2-4.2 [facility] Work Phone: Urea nitrogen/Creatinine [Mass ratio] 21.6 mg/mg 10-20 [facility] Work Phone: Laboratory - Chemistry and C hemistry - challengeOrdered By: Dr. Gonzáles on 08-31-2022 Natriuretic peptide B (Bld) [Mass/Vol] 48.3 pg/mL 0-100 [facility] Laboratory - Hematology and Cell countson 08-31-2022 Erythrocyte distribution width (RBC) [Entitic vol] 50.0 fL 35.1-43.9 [facility] Work Phone: Erythrocyte distribution width (RBC) [Ratio] 14.1 % 11.6-14.6 [facility] Work Phone: Immature granulocytes/100 WBC (Bld) 1.100 % 0.0-0.9 [facility] Work Phone: Comment on above: IG% - Immature Granu locytes (promyelocytes, myelocytes and metamyelocytes) > 1% indicates that a LEFT SHIFT is Present. MCH (RBC) [Entitic mass] 28.2 pg 27.0-32.0 [facility] Work Phone: Nucleated RBC/100 WBC (Bld) [Ratio] 0 % 0-5 [facility] Work Phone: MCHC Auto (RBC) [Mass/Vol]on 08-31-2022 MCHC (RBC) [Mass/Vol] 29.5 g/dL 32-36 [facility] Work Phone: Mucus LM Ql (Urine sed)Order ed By: Dr. Gonzáles on 08-31-2022 Mucus Ql (Urine sed) 0 SEEN /hpf [facility] Nitrite Test strip Ql (U)Ord ered By: Dr. Gonzáles on 08-31-2022 Nitrite Ql (U) Negative Negative [facility] No Panel Informationon 08-31 Estimated Creatinine Clearance Calc 23.15 ml/min [facility] Work Phone: Estimated GFR (MDRD) Amer 38 mL/min >60 [facility] Work Phone: Comment on above: GFR Calc Estimated GFR (MDRD) Non-Af Amer 31 mL/min >60 [facility] Work Phone: Comment on above: Non- GFR Calc No Panel InformationOrdered By: Dr. Gonzáles on 08-31-2022 Troponin I High Sensitivity 25 pg/mL 3.0-54.0 [facility] Comment on above: Please Note: [place] t Units and Gender Specific Reference Ranges. For more information see Policy Stat Procedure [place] High Sensitivity Troponin (TNIH) and attachments. Platelets bldon 08-31-2022 Platelets (Bld) [#/Vol] 233 10*3/uL 150-450 [facility] Work Phone: Protein Test strip Ql (U)Ord ered By: Dr. Gonzáles on 08-31-2022 Protein Ql (U) 30 mg/dl Negative [facility] Serum or plasma albumin felipe urement (mass/volume)on 08-31-2022 Albumin [Mass/Vol] 3.6 g/dL 3.2-5.0 [facility] Work Phone: Serum or plasma albumin/glob ulin mass ratioon 08-31-2022 Albumin/Globulin [Mass ratio] 0.9 {ratio} 0.9-2.4 [facility] Work Phone: Serum or plasma calcium feliep urement (mass/volume)on 08-31-2022 Calcium [Mass/Vol] 8.9 mg/dL 8.5-10.1 [facility] Work Phone: Serum or plasma creatinine m easurement (mass/volume)on 08-31-2022 Creatinine [Mass/Vol] 1.71 mg/dL 0.55-1.02 [facility] Work Phone: Comment on above: The validity of the calculated GFR & GFRAA in patients over 70 years has not been determined. Clinical correlation is essential. Serum or plasma urea nitroge n measurement (mass/volume)on 08-31-2022 Urea nitrogen [Mass/Vol] 37 mg/dL 7-18 [facility] Work Phone: Squamous epithelial cells de tection in urine sediment by light microscopyOrdered By: Dr. Gonzáles on 08-31-2022 Epithelial cells.squamous LM Ql (Urine sed) 0-5 SEEN /hpf 5-10 [facility] Thin prep Papanicolaou smear with manual screeningon 08-31-2022 Thin prep Papanicolaou smear with manual screening 15 U/L 15-37 [facility] Work Phone: Thin prep Papanicolaou smear with manual screening 7 5-15 [facility] Work Phone: Urine blood detectionOrdered By: Dr. Gonzáles on 08-31-2022 RBC Ql (U) Negative Negative [facility] RBC Ql (U) 0 SEEN /hpf 0-5 [facility] Urine clarityOrdered By: Dr. Gonzáles on 08-31-2022 Clarity (U) Clear Clear [facility] Urine color determinationOrd ered By: Dr. Gonzáles on 08-31-2022 Color (U) Yellow Yellow [facility] Urine glucose detectionOrder ed By: Dr. Gonzáles on 08-31-2022 Glucose Ql (U) Normal mg/dl Normal [facility] Urine leukocyte esterase det ection by dipstickOrdered By: Dr. Gonzáles on 08-31-2022 Leukocyte esterase Test strip Ql (U) 25 /ul Negative [facility] Urine pHOrdered By: Dr. Antony mcclain on 08-31-2022 pH (U) 5.0 [pH] 5.0 - 8.0 [facility] Urine sediment bacteria coun t by microscopy (number/high power field)Ordered By: Dr. Gonzáles on 08-31-2022 Bacteria LM.HPF (Urine sed) [#/Area] 0 /[HPF] None Seen [facility] Urine specific gravity measu rementOrdered By: Dr. Gonzáles on 08-31-2022 Specific gravity (U) [Rel density] 1.015 1.002-1.030 [facility] Urobilinogen Auto test strip Ql (U)Ordered By: Dr. Gonzáles on 08-31-2022 Urobilinogen Ql (U) Normal mg/dl Normal [facility] CBC W Auto Differential pane l (Bld)on 08-28-2022 Basophils (Bld) [#/Vol] 0.04 10*3/uL <0.11 k/uL [facility] Basophils/100 WBC (Bld) 0.4 % [facility] Differential cell count method Nom (Bld) Auto [facility] Eosinophils (Bld) [#/Vol] 0.07 10*3/uL <0.46 k/uL [facility] Eosinophils/100 WBC (Bld) 0.6 % [facility] Erythrocyte distribution width (RBC) [Ratio] 14.0 % 11.5 - 15.0 % [facility] Hematocrit (Bld) [Volume fraction] 36.0 % 36.0 - 46.0 % [facility] Hemoglobin (Bld) [Mass/Vol] 11.0 g/dL Low 11.5 - 15.5 g/dL [facility] Immature granulocytes (Bld) [#/Vol] 0.15 10*3/uL High <0.10 k/uL [facility] Immature granulocytes/100 WBC (Bld) 1.3 % [facility] Lymphocytes (Bld) [#/Vol] 1.36 10*3/uL 1.00 - 4.00 k/uL [facility] Lymphocytes/100 WBC (Bld) 12.1 % [facility] MCH (RBC) [Entitic mass] 28.5 pg 26.0 - 34.0 pg [facility] MCHC (RBC) [Mass/Vol] 30.6 g/dL 30.5 - 36.0 g/dL [facility] MCV (RBC) [Entitic vol] 93.3 fL 80.0 - 100.0 fL [facility] Monocytes (Bld) [#/Vol] 0.94 10*3/uL High <0.87 k/uL [facility] Monocytes/100 WBC (Bld) 8.4 % [facility] Neutrophils (Bld) [#/Vol] 8.68 10*3/uL High 1.45 - 7.50 k/uL [facility] Neutrophils/100 WBC (Bld) 77.2 % [facility] Nucleated RBC (Bld) [#/Vol] <0.01 k/uL [facility] Nucleated RBC/100 WBC (Bld) [Ratio] 0.0 /100 WBC [facility] Platelet mean volume (Bld) [Entitic vol] 10.7 fL 9.0 - 12.7 fL [facility] Platelets (Bld) [#/Vol] 227 10*3/uL 150 - 400 k /uL [facility] RBC (Bld) [#/Vol] 3.86 10*6/uL Low 3.90 - 5.2 0 m/uL [facility] WBC (Bld) [#/Vol] 11.24 10*3/uL High 3.70 - 11 .00 k/uL [facility] Comprehensive metabolic 2000 panelon 08-28-2022 Albumin [Mass/Vol] 4.3 g/dL 3.9 - 4.9 g/dL [facility] ALP [Catalytic activity/Vol] 111 U/L 34 - 123 U/L [facility] ALT [Catalytic activity/Vol] 11 U/L 7 - 38 U/L [facility] Anion gap [Moles/Vol] 13 mmol/L 9 - 18 mmol/L [facility] AST [Catalytic activity/Vol] 21 U/L 13 - 35 U/L [facility] Bilirubin [Mass/Vol] 0.4 mg/dL 0.2 - 1 .3 mg/dL [facility] Calcium [Mass/Vol] 9.5 mg/dL 8.5 - 10. 2 mg/dL [facility] Chloride [Moles/Vol] 102 mmol/L 97 - 10 5 mmol/L [facility] CO2 [Moles/Vol] 24 mmol/L 22 - 30 mmol/L [facility] Creatinine [Mass/Vol] 1.69 mg/dL High 0.58 - 0.96 mg/dL [facility] Estimated Glomerular Filtration Rate 32 mL/min/1.73m Low >=60 mL/min/1.73m [facility] Glucose [Mass/Vol] 109 mg/dL High 74 - 99 mg/dL [facility] Potassium [Moles/Vol] 4.7 mmol/L 3.7 - 5.1 mmol/L [facility] Protein [Mass/Vol] 7.1 g/dL 6.3 - 8.0 g/dL [facility] Sodium [Moles/Vol] 139 mmol/L 136 - 144 mmol/L [facility] Urea nitrogen [Mass/Vol] 39 mg/dL High 7 - 21 mg/dL [facility] FERRITIN BLDon 08-28-2022 Ferritin [Mass/Vol] 259.0 ng/mL High 14.7 - 2 05.1 ng/mL [facility] Iron and Iron binding capaci ty panelon 08-28-2022 Iron [Mass/Vol] 25 ug/dL Low 41 - 186 ug/dL [facility] Iron binding capacity [Mass/Vol] 299 ug/dL 232 - 386 ug/dL [facility] Iron/TIBC [Molar ratio] 8.4 % Low 15.0 - 57.0 % [facility] GLUCOSE, BLOOD (POC)on 06-12 Glucose [Mass/Vol] 104 mg/dL Abnormal 74 - 99 mg/dL [facility] NM PET/CT SKULL-THIGH SUBQon 06-12-2022 NM PET/CT SKULL-THIGH SUBQ * * *Final Report* * * DATE OF EXAM: Jun 12 2022 11:07AM [facility] [id number] - NM PET/CT SKULL-THIGH SUBQ / PROCEDURE REASON: ENDOMETRIAL CANCER * * * * Physician Interpretation * * * * EXAMINATION: REGIONAL BODY FDG PET/CT SCAN: (06/12/2022 11:27 AM) HISTORY: 76 years old Female with ENDOMETRIAL CANCER. Status post ÓSCAR, BSO and pelvic/retroperitonea l lymphadenectomy August 2014 and multiple treatment for derek recurrences, most recently SBRT aortocaval nodes completed 03/03/2022. INDICATION: Study performed for subsequent treatment strategy. TECHNIQUE: F18-FDG administered IV was followed about 60 minutes later by PET imaging from eyes to proximal thighs. Free breathing low dose CT was performed without contrast for attenuation correction and anatomic localization. Blood glucose before FDG injection: 104 mg/dL FDG radionuclide dose: 7.[address] Dose-Length Product (DLP): 290 mGy*cm. CT Dose Reduction Employed: Automated exposure control (AEC) was used COMPARISON: FDG PET/CT dated 12/22/2021 CORRELATION: CT 02/12/2022. RESULT: REFERENCE: Mediastinal blood pool: Max SUV 2.2 Liver: Max SUV 3.0 Engineering Officer (topogram) images: No additional findings. HEAD AND NECK: Mild misregistration artifact due to motion. No FDG avid cervical lymphadenopathy or mass. No FDG avid thyroid lesion. Physiologic uptake seen in the visualized brain, parapharyngeal soft tissues, and salivary glands. CHEST: Physiologic uptake in the heart and mediastinum. Lines, tubes, and devices: Right IJ port catheter tip in the lower SVC. Lungs and tracheobronchial tree: No FDG avid consolidation, mass or nodules. Stable 0.7 cm non-FDG avid right apical nodular opacity (3:67) mild bibasilar atelectasis. Note that PET/CT is not sensitive for pulmonary nodules less than 8 mm. Pleura: No FDG avid pleural effusion or pleural mass. Mediastinum and Lymph nodes: No FDG avid supraclavicular, mediastinal, hilar lymphadenopathy. Heart and great vessels: Aortic atherosclerosis and coronary calcifications. Mild FDG activity along the distal port catheter likely injection related. Physiologic FDG uptake is seen. Chest wall and axilla: No FDG avid lesion. ABDOMEN AND PELVIS: Physiologic uptake seen in the and GI tracts. Liver: No FDG avid lesion. Stable left lobe subcentimeter photopenic low-attenuation focus, probable cyst. Biliary: Multiple. Spleen: No FDG avid mass. No splenomegaly. Pancreas: No FDG avid mass or pancreas duct dilation. Adrenals: No FDG avid lesion.. Kidneys: Excreted activity limits evaluation of kidneys and collecting system. No definite stones, hydronephrosis, or FDG avid lesions. . GI tract: Physiologic activity without suspicious focal uptake. No dilated bowel. Status post appendectomy. Sigmoid diverticulosis without inflammatory changes. Lymph nodes: Decreased size and hypermetabolism of previous aortocaval/retrocaval lymphadenopathy. Residual soft tissue thickening measures 2.2 x 1.4 cm without focal hypermetabolism above mediastinal activity (Max SUV 2.1 on 3:148), previously 4.8 x 3.3 cm with max SUV 15.3. No new hypermetabolic abdominal pelvic lymph nodes. Mesentery/Peritoneum: No ascites or FDG avid mass. Retroperitoneum: No mass. Vasculature: Vascular patency cannot be assessed due to lack of IV contrast. There are atherosclerotic calcifications without aneurysmal dilation. Unchanged IVC filter. Pelvis: Status post hysterectomy and pelvic/retroperitonea l derek dissection. No FDG avid mass or ascites.. Excreted activity limits evaluation of bladder. Abdominopelvic wall: Unremarkable . BONES AND EXTREMITIES: No suspicious FDG avid or destructive osseous lesion. Degenerative changes throughout the visualized skeleton. Generalized osseous demineralization. Chronic anterior compression deformity at T10. Levoscoliosis of the lower thoracic spine. IMPRESSION: 1. NECK: * No FDG avid neoplastic process.. 2. CHEST: * No FDG avid neoplastic process.. 3. ABDOMEN/PELVIS: * Significantly decreased size and hypermetabolism of aortocaval/retrocaval lymphadenopathy. There is residual retrocaval soft tissue thickening without focal hypermetabolism suggest treatment related changes.. * No new FDG avid neoplastic process. 4. EXTREMITIES/SKELETON: * No FDG avid neoplastic process.. Help Desk Support: JUDITH Transcribe Date/Time: Jun 12 2022 11:27A Dictated by : SHANICE LEAHY MD This examination was interpreted and the report reviewed and electronically signed by: HAI ALONSO MD on Jun 12 2022 12:03PM EST [id number] Normal [facility] NM PET/CT SKULL-THIGH SUBSEQ UENTon 06-12-2022 [facility] CBC W Auto Differential pane l (Bld)on 04-14-2022 Abs Immature Gran 0.06 k/uL <0.10 k/uL [facility] Basophils (Bld) [#/Vol] 0.05 10*3/uL <0.11 k/uL [facility] Basophils/100 WBC (Bld) 0.6 % [facility] Differential cell count method Nom (Bld) Auto [facility] Eosinophils (Bld) [#/Vol] 0.17 10*3/uL <0.46 k/uL [facility] Eosinophils/100 WBC (Bld) 2.0 % [facility] Erythrocyte distribution width (RBC) [Ratio] 13.3 % 11.5 - 15.0 % [facility] Hematocrit (Bld) [Volume fraction] 41.0 % 36.0 - 46.0 % [facility] Hemoglobin (Bld) [Mass/Vol] 12.9 g/dL 11.5 - 15.5 g/dL [facility] Immature Gran % 0.7 % [facility] Lymphocytes (Bld) [#/Vol] 1.11 10*3/uL 1.00 - 4.00 k/uL [facility] Lymphocytes/100 WBC (Bld) 13.2 % [facility] MCH (RBC) [Entitic mass] 29.6 pg 26.0 - 34.0 pg [facility] MCHC (RBC) [Mass/Vol] 31.5 g/dL 30.5 - 36.0 g/dL [facility] MCV (RBC) [Entitic vol] 94.0 fL 80.0 - 100.0 fL [facility] Monocytes (Bld) [#/Vol] 0.84 10*3/uL <0.87 k/uL [facility] Monocytes/100 WBC (Bld) 10.0 % [facility] Neutrophils (Bld) [#/Vol] 6.19 10*3/uL 1.45 - 7.50 k/uL [facility] Neutrophils/100 WBC (Bld) 73.5 % [facility] Nucleated RBC (Bld) [#/Vol] <0.01 k/uL [facility] Nucleated RBC/100 WBC (Bld) [Ratio] 0.0 /100 WBC [facility] Platelet mean volume (Bld) [Entitic vol] 9.8 fL 9.0 - 12.7 fL [facility] Platelets (Bld) [#/Vol] 318 10*3/uL 150 - 400 k /uL [facility] RBC (Bld) [#/Vol] 4.36 10*6/uL 3.90 - 5.2 0 m/uL [facility] WBC (Bld) [#/Vol] 8.42 10*3/uL 3.70 - 11. 00 k/uL [facility] Comprehensive metabolic 2000 panelon 04-14-2022 Albumin [Mass/Vol] 4.5 g/dL 3.9 - 4.9 g/dL [facility] ALP [Catalytic activity/Vol] 85 U/L 34 - 123 U/L [facility] ALT [Catalytic activity/Vol] 12 U/L 7 - 38 U/L [facility] Anion gap [Moles/Vol] 14 mmol/L 9 - 18 mmol/L [facility] AST [Catalytic activity/Vol] 22 U/L 13 - 35 U/L [facility] Bilirubin [Mass/Vol] 0.3 mg/dL 0.2 - 1 .3 mg/dL [facility] Calcium [Mass/Vol] 9.9 mg/dL 8.5 - 10. 2 mg/dL [facility] Chloride [Moles/Vol] 103 mmol/L 97 - 10 5 mmol/L [facility] CO2 [Moles/Vol] 25 mmol/L 22 - 30 mmol/L [facility] Creatinine [Mass/Vol] 0.97 mg/dL High 0.58 - 0.96 mg/dL [facility] Estimated Glomerular Filtration Rate 61 mL/min/1.73m >=60 mL/min/1.73m [facility] Glucose [Mass/Vol] 100 mg/dL High 74 - 99 mg/dL [facility] Potassium [Moles/Vol] 4.0 mmol/L 3.7 - 5.1 mmol/L [facility] Protein [Mass/Vol] 6.8 g/dL 6.3 - 8.0 g/dL [facility] Sodium [Moles/Vol] 142 mmol/L 136 - 144 mmol/L [facility] Urea nitrogen [Mass/Vol] 21 mg/dL 7 - 21 mg/dL [facility] UA DIP, URINE (POC)on 2021 BILIRUBIN UA (POCT) Negative Negative [facility] CLARITY UA (POCT) Slightly Cloudy [facility] COLOR UA (POCT) Yellow [facility] GLUCOSE UA (POCT) Negative Negative mg/dL [facility] HEMOGLOBIN/BLOOD UA (POCT) Moderate Abnormal Negative [facility] KETONE UA (POCT) Negative Negative mg/dL [facility] LEUKOCYTES UA (POCT) Moderate Abnormal Negative [facility] NITRITE UA (POCT) Positive Abnormal Negative [facility] PH UA (POCT) 5.5 4.5 - 8.0 [facility] Protein Ql (U) 30 mg/dL Abnormal Negative mg/dL [facility] SPECIFIC GRAVITY UA (POCT) 1.015 1.005 - 1.030 [facility] UROBILINOGEN UA (POCT) 0.2 E.U./dL Normal E.U./ dL [facility] UA DIP, URINE (POC)on 2021 BILIRUBIN UA (POCT) Negative Negative [facility] CLARITY UA (POCT) Clear [facility] COLOR UA (POCT) Yellow [facility] GLUCOSE UA (POCT) Negative Negative mg/dL [facility] HEMOGLOBIN/BLOOD UA (POCT) Negative Negative [facility] KETONE UA (POCT) Negative Negative mg/dL [facility] LEUKOCYTES UA (POCT) Small Abnormal Negative [facility] NITRITE UA (POCT) Negative Negative [facility] PH UA (POCT) 5.0 4.5 - 8.0 [facility] Protein Ql (U) Negative Negative mg/dL [facility] SPECIFIC GRAVITY UA (POCT) 1.015 1.005 - 1.030 [facility] UROBILINOGEN UA (POCT) 0.2 E.U./dL Normal E.U./ dL [facility] CBC W Auto Differential pane l (Bld)on 02-12-2022 Abs Immature Gran 0.04 k/uL <0.10 k/uL [facility] Basophils (Bld) [#/Vol] 0.04 10*3/uL <0.11 k/uL [facility] Basophils/100 WBC (Bld) 0.4 % [facility] Differential cell count method Nom (Bld) Auto [facility] Eosinophils (Bld) [#/Vol] 0.20 10*3/uL <0.46 k/uL [facility] Eosinophils/100 WBC (Bld) 2.2 % [facility] Erythrocyte distribution width (RBC) [Ratio] 14.8 % 11.5 - 15.0 % [facility] Hematocrit (Bld) [Volume fraction] 39.1 % 36.0 - 46.0 % [facility] Hemoglobin (Bld) [Mass/Vol] 12.2 g/dL 11.5 - 15.5 g/dL [facility] Immature Gran % 0.4 % [facility] Lymphocytes (Bld) [#/Vol] 2.17 10*3/uL 1.00 - 4.00 k/uL [facility] Lymphocytes/100 WBC (Bld) 23.5 % [facility] MCH (RBC) [Entitic mass] 28.6 pg 26.0 - 34.0 pg [facility] MCHC (RBC) [Mass/Vol] 31.2 g/dL 30.5 - 36.0 g/dL [facility] MCV (RBC) [Entitic vol] 91.6 fL 80.0 - 100.0 fL [facility] Monocytes (Bld) [#/Vol] 0.70 10*3/uL <0.87 k/uL [facility] Monocytes/100 WBC (Bld) 7.6 % [facility] Neutrophils (Bld) [#/Vol] 6.10 10*3/uL 1.45 - 7.50 k/uL [facility] Neutrophils/100 WBC (Bld) 65.9 % [facility] Nucleated RBC (Bld) [#/Vol] 10*3/uL <0.01 k/uL [facility] Nucleated RBC/100 WBC (Bld) [Ratio] 0.0 /100 WBC [facility] Platelet mean volume (Bld) [Entitic vol] 9.7 fL 9.0 - 12.7 fL [facility] Platelets (Bld) [#/Vol] 302 10*3/uL 150 - 400 k /uL [facility] RBC (Bld) [#/Vol] 4.27 10*6/uL 3.90 - 5.2 0 m/uL [facility] WBC (Bld) [#/Vol] 9.25 10*3/uL 3.70 - 11. 00 k/uL [facility] Comprehensive metabolic 2000 panelon 02-12-2022 Albumin [Mass/Vol] 4.4 g/dL 3.9 - 4.9 g/dL [facility] ALP [Catalytic activity/Vol] 98 U/L 34 - 123 U/L [facility] ALT [Catalytic activity/Vol] 29 U/L 7 - 38 U/L [facility] Anion gap [Moles/Vol] 12 mmol/L 9 - 18 mmol/L [facility] AST [Catalytic activity/Vol] 36 U/L High 13 - 35 U/L [facility] Bilirubin [Mass/Vol] 0.4 mg/dL 0.2 - 1 .3 mg/dL [facility] Calcium [Mass/Vol] 9.5 mg/dL 8.5 - 10. 2 mg/dL [facility] Chloride [Moles/Vol] 105 mmol/L 97 - 10 5 mmol/L [facility] CO2 [Moles/Vol] 24 mmol/L 22 - 30 mmol/L [facility] Creatinine [Mass/Vol] 0.64 mg/dL 0.58 - 0.96 mg/dL [facility] Estimated Glomerular Filtration Rate 93 mL/min/1.73m >=60 mL/min/1.73m [facility] Glucose [Mass/Vol] 88 mg/dL 74 - 99 mg/dL [facility] Potassium [Moles/Vol] 4.3 mmol/L 3.7 - 5.1 mmol/L [facility] Protein [Mass/Vol] 6.8 g/dL 6.3 - 8.0 g/dL [facility] Sodium [Moles/Vol] 141 mmol/L 136 - 144 mmol/L [facility] Urea nitrogen [Mass/Vol] 18 mg/dL 7 - 21 mg/dL [facility] Lipid 1996 panelon 2 Cholesterol [Mass/Vol] 129 mg/dL <200 mg/dL [facility] Cholesterol in HDL [Mass/Vol] 35 mg/dL Low >39 mg/dL [facility] Cholesterol in LDL [Mass/Vol] 46 mg/dL <100 mg/dL [facility] Cholesterol in LDL/Cholesterol in HDL [Mass ratio] 1.31 {ratio} <2.54 [facility] Cholesterol in VLDL [Mass/Vol] 48 mg/dL High <30 mg/dL [facility] Cholesterol non HDL [Mass/Vol] 94 mg/dL <130 mg/dL [facility] Cholesterol.total/Emilie sterol in HDL [Mass ratio] 3.69 {ratio} <5.10 [facility] Fasting Time 14 hrs [facility] Triglyceride [Mass/Vol] 242 mg/dL High <150 mg/dL [facility] MAGNESIUM [facility] 02-12-2022 Magnesium [Mass/Vol] 1.8 mg/dL 1.7 - 2 .3 mg/dL [facility] TSH [facility] 02-12-2022 TSH Qn 2.120 m[IU]/L 0.270 - 4.200 mIU/L [facility] Urinalysis complete panel (U )on 02-12-2022 Bacteria LM.HPF (Urine sed) [#/Area] Rare Abnormal None Seen /HPF [facility] Bilirubin Ql (U) Negative Negative [facility] Clarity (Unsp spec) Slightly Cloudy Abnormal Clear [facility] Color (U) Yellow Yellow [facility] Epithelial cells LM.HPF (Urine sed) [#/Area] Few [facility] Glucose Test strip (U) [Mass/Vol] Negative Negative [facility] Hemoglobin Ql (U) Negative Negative [facility] Ketones Ql (U) Negative Negative [facility] Leukocyte esterase Test strip Ql (U) 1+ Abnormal Negative [facility] Nitrite Ql (U) Positive Abnormal Negative [facility] pH (U) 7.0 [pH] 5.0 - 8.0 [facility] Protein (U) [Mass/Vol] 1+ Abnormal Negative [facility] RBC LM.HPF (Urine sed) [#/Area] 0-3 /HPF 0-3 /HPF [facility] Specific gravity (U) [Rel density] 1.020 1.005 - 1.030 [facility] Urobilinogen Ql (U) Negative Negative [facility] WBC LM.HPF (Urine sed) [#/Area] 6-10 /HPF Abnormal 0-5 /HPF [facility] PT Progress Noteon 2 PT Progress Note Therapy Diagnosis Assessed Ambulatory dysfunction (719.7) (R26.2) Abnormality of gait due to impairment of balance (781.2) (R26.89) Plan Goals: Goals set and discussed today. Pt will demonstrate independence and compliance with HEP and self management, by week 2, goal met Activity Limitation: TUG 13 or better for decreased fall risk, by week 4, goal partially met Balance: Able to maintain mod tandem without LOB x 10 for decreased fall risk, by week 4, goal met Strength: R and L LE strength 4+/5 throughout or better for increased ease completing STS transfer without UE, by week 4, goal partially met Able to maintain tandem without LOB x 10 for decreased fall risk, by week 4 Planned interventions include: cryotherapy, education/instruction , electrical stimulation, gait training, home program, hot pack, kinesiotaping, manual therapy, neuromuscular re-education, self care/home management, therapeutic activities and therapeutic exercises . has T10 fracture; focus on LE strengthening, static/dynamic bal activities, gait training (calling MD to request script for LBP). Frequency and duration: 2 time(s) a week, for 4 weeks, for 8 visits. Potential to achieve rehab goals is good Progress with POC, as tolerated. Assessment Required min to mod A from therapist during static bal activities with eyes closed on unstable surface, required 1-2 UE support during dynamic bal activities in // bars - more assist needed this session to maintain bal than previous session 02/04. Discussed with patient using FWW on days when patient feels unsteady, pt verbalized understanding but also states she prefers not to use AD. Cont progressing LE strengthening and static/dynamic bal activities for decreased fall risk. Pt is going to call billing and discuss billing. Based on expense, will let therapist know if therapist should call referring MD and request PT script for dizziness. Response to treatment: no change in pain. Patient was able to complete today's treatment with some difficulty. Adult Risk Screening There are no spiritual/cultural practices/values/need s that are important to know Initial Fall Risk Screening: ROSITA has fallen in the last 6 months. She has fallen due to loss of balance when holding a laundry basket . Her fall resulted in the following injury: concussion, fx T10, steve in head. ROSITA does not have a fear of falling. She needs assistance with . Needs assistance walking in her home. She needs assistance in an unfamiliar setting. The patient is not using an assistive device. Fall Risk Screening: Patient is identified as a fall risk. Care Plan: Moderate Risk: Low risk interventions plus: do not leave patient on exam table unattended, supervised activity, educate patient/family on falls prevention, review safety initiatives with patient/family, family at bedside as allowed, yellow falls risk band, focus rounding attention, locate patient in area of high visibility, wheelchair, bed, or personal alarm, bedside commode, elevated toilet seat and pharmacy consult for medication concerns. Please identify location of pain: upper back. Insurance Insurance reviewed Visit number: 11 POC 07/15 supervising PT VIKAS Chahal Medicare, $150 met, $0 once met, 4% co-insurance Onset Date: 2020 Medicare Certification Period: Beginnin2021 Endin2021 Subjective Patient reports:. Feels very off center today. Denies pain, no falls since last therapy session. Semi-compliant with HEP, states not doing as often as she should. Home program performing as directed: Partially. Precautions: Fall Risk: high has T10 fracture, use gait belt to and from [employer]. Treatment Time in clinic started at 10:47 am Time in clinic ended at 11:31 am Total time in clinic is 44 minutes. Total timed code time is 38 minutes. Therapeutic exercise (04551): timed minutes 8, units 1 . GAIT BELT USED FROM [facility] NuStep Stepper, seat 5, arms10, Lv 4 UE/LE 5 min in // bars with wil UE support: fwd step ups onto green step x 10 E leg Not today 02/06: seated alt october 2 x 15 reps X LAQ 1# 2 x 15 reps Ea P X hip add iso with ball 3 hold 2 x 15 reps X seated hip abd with green TB 2 x 15 reps X Seated HS curls green TB 2 x 15 reps X Standing heel raises x 15 reps Standing hip Flex 2x10 reps Standing hip Abd 2x10 reps Standing HS curls 2x10 reps Standing Hip Ext 2x10 reps Mini Squats 1x15. Neuromuscular Re-education (28447): timed minutes 30, units 2 . GAIT BELT USED FROM [facility] AND WITH GAIT AND NMR Performed at // bars this date 02/06/2022 - Feet together on airex Eyes open/closed 3 reps 30 sec holds - Feet tandem on floor Eyes open 3 reps 20 sec holds - Tandem walk in //bars with min UE support x2 laps (not today) -fwd/bwd walk in //bars with min UE support x3 laps -side steps in // bars with min UE support 3 laps - SLS 5-10 sec holds x 3 ea leg with min UE support as needed -3 small hurdles in // bars x (more content not included)... Normal [facility] PT Progress Noteon 2 PT Progress Note Therapy Diagnosis Assessed Ambulatory dysfunction (719.7) (R26.2) Abnormality of gait due to impairment of balance (781.2) (R26.89) Plan Goals: Goals set and discussed today. Pt will demonstrate independence and compliance with HEP and self management, by week 2, goal met Activity Limitation: TUG 13 or better for decreased fall risk, by week 4, goal partially met Balance: Able to maintain mod tandem without LOB x 10 for decreased fall risk, by week 4, goal met Strength: R and L LE strength 4+/5 throughout or better for increased ease completing STS transfer without UE, by week 4, goal partially met Able to maintain tandem without LOB x 10 for decreased fall risk, by week 4 Planned interventions include: cryotherapy, education/instruction , electrical stimulation, gait training, home program, hot pack, kinesiotaping, manual therapy, neuromuscular re-education, self care/home management, therapeutic activities and therapeutic exercises . has T10 fracture; focus on LE strengthening, static/dynamic bal activities, gait training (calling MD to request script for LBP). Frequency and duration: 2 time(s) a week, for 4 weeks, for 8 visits. Potential to achieve rehab goals is good Continue to work on strength and NMR activities to improve gait and transfers for decreased fall risk. - MA. Assessment Patient identified by name AND . Patient wore a mask during treatment d/t Covid-19 precautions. Treatment consisted of NMR activities today. Patient required verbal and tactile cues through out to stand upright. She often had increased trunk flexion when standing and performing NMR activities. Patient often takes decreased step lengths with fwd AND bwd gait and verbal and tactile cues given to correct this. Patient had small LOB's during activities in // bars, but this therapist was able to assist with corrections with use of gait belt. Adult Risk Screening There are no spiritual/cultural practices/values/need s that are important to know Initial Fall Risk Screening: ROSITA has fallen in the last 6 months. She has fallen due to loss of balance when holding a laundry basket . Her fall resulted in the following injury: concussion, fx T10, steve in head. ROSITA does not have a fear of falling. She needs assistance with . Needs assistance walking in her home. She needs assistance in an unfamiliar setting. The patient is not using an assistive device. Fall Risk Screening: Patient is identified as a fall risk. Care Plan: Moderate Risk: Low risk interventions plus: do not leave patient on exam table unattended, supervised activity, educate patient/family on falls prevention, review safety initiatives with patient/family, family at bedside as allowed, yellow falls risk band, focus rounding attention, locate patient in area of high visibility, wheelchair, bed, or personal alarm, bedside commode, elevated toilet seat and pharmacy consult for medication concerns. Pain Scale: On a scale of 0 to 10, the patient rates the pain at 0. Please identify location of pain: upper back. Insurance Insurance reviewed Visit number: 10 POC 06/14 supervising PT VIKAS Chahal Medicare, $150 met, $0 once met, 4% co-insurance Onset Date: 2020 Medicare Certification Period: Beginnin2021 Endin2021 Subjective Patient reports:. States she is a little dizzy today and does not know why. States she does get dizzy often. Home program performing as directed: Yes. Precautions: Fall Risk: moderate has T10 fracture. Treatment Time in clinic started at 10:00 am Time in clinic ended at 10:45 am Total time in clinic is 45 minutes. Total timed code time is 42 minutes. Therapeutic exercise (98882):. GAIT BELT USED FROM [facility] NO THER EX THIS DATE 02/04/22 NuStep Stepper, seat 5, arms10, Lv 4 UE/LE 5 min seated alt october 2 x 15 reps X LAQ 1# 2 x 15 reps Ea P X hip add iso with ball 3 hold 2 x 15 reps X seated hip abd with green TB 2 x 15 reps X Seated HS curls green TB 2 x 15 reps X Standing heel raises x 15 reps Standing hip Flex 2x10 reps Standing hip Abd 2x10 reps Standing HS curls 2x10 reps Standing Hip Ext 2x10 reps Mini Squats 1x15. Neuromuscular Re-education (44791): timed minutes 42, units 3 . GAIT BELT USED FROM [facility] AND WITH GAIT AND NMR Performed at // bars this date 02/04/2022 - Feet together on airex Eyes open/closed 3 reps 30 sec holds - Feet semi tandem on airex Eyes open/closed 3 reps 20 sec holds - Tandem walk in //bars with min UE support x2 laps -fwd/bwd walk in //bars with min UE support x2 laps -side steps in // bars with min UE support 4 laps - SLS 5-10 sec holds x 3 ea leg with min UE support as needed -3 small hurdles in // bars x 2 laps fwd step overs Walking with head turns horizontal and vertical x4 laps each at plinth Min A UE support at plinth as needed (X) Toe Taps no UE support small tejada BOSU x20 (X). Provided today: education . edu on proper form and speed of mo (more content not included)... Normal [facility] PT Progress Noteon 2 PT Progress Note Therapy Diagnosis Assessed Ambulatory dysfunction (719.7) (R26.2) Abnormality of gait due to impairment of balance (781.2) (R26.89) Plan Goals: Goals set and discussed today. Pt will demonstrate independence and compliance with HEP and self management, by week 2, goal met Activity Limitation: TUG 13 or better for decreased fall risk, by week 4, goal partially met Balance: Able to maintain mod tandem without LOB x 10 for decreased fall risk, by week 4, goal met Strength: R and L LE strength 4+/5 throughout or better for increased ease completing STS transfer without UE, by week 4, goal partially met Able to maintain tandem without LOB x 10 for decreased fall risk, by week 4 Planned interventions include: cryotherapy, education/instruction , electrical stimulation, gait training, home program, hot pack, kinesiotaping, manual therapy, neuromuscular re-education, self care/home management, therapeutic activities and therapeutic exercises . has T10 fracture; focus on LE strengthening, static/dynamic bal activities, gait training (calling MD to request script for LBP). Frequency and duration: 2 time(s) a week, for 4 weeks, for 8 visits. Potential to achieve rehab goals is good Plan to continue with ther ex's and NMR activities to decrease risk of falls and improve ambulation ability . Progress with POC, as tolerated. Assessment Deferred performance of balance and gait training in large gym d/t reports of lightheadedness. Requires seated rest breaks intermittently throughout session d/t R sided back pain. Min A-Mod A with balance exercises to prevent LOB. Increased difficulty with dynamic balance with head turns horizontal greater than vertical. Verbal cues for maintaining upright position and minimal use of UE with balance exercises. Adult Risk Screening There are no spiritual/cultural practices/values/need s that are important to know Initial Fall Risk Screening: ROSITA has fallen in the last 6 months. She has fallen due to loss of balance when holding a laundry basket . Her fall resulted in the following injury: concussion, fx T10, steve in head. ROSITA does not have a fear of falling. She needs assistance with . Needs assistance walking in her home. She needs assistance in an unfamiliar setting. The patient is not using an assistive device. Fall Risk Screening: Patient is identified as a fall risk. Care Plan: Moderate Risk: Low risk interventions plus: do not leave patient on exam table unattended, supervised activity, educate patient/family on falls prevention, review safety initiatives with patient/family, family at bedside as allowed, yellow falls risk band, focus rounding attention, locate patient in area of high visibility, wheelchair, bed, or personal alarm, bedside commode, elevated toilet seat and pharmacy consult for medication concerns. Please identify location of pain: upper back. Insurance Insurance reviewed Visit number: 8 POC 04/06 supervising PT VIKAS Franck Medicare, $150 met, $0 once met, 4% co-insurance Onset Date: 2020 Medicare Certification Period: Beginnin2021 Endin2021 Subjective Patient reports:. Patient confirmed name and date of this session. Patient reporting no falls since last visit and no pain currently. Patient reporting that she had a follow-up with oncologist last week regarding her R sided back pain and they discovered cancer. She is awaiting a virtual follow-up visit for further assessment regarding cancer. Reports balance is challenged with quick turns and on uneven surface. Patient reporting increased lightheadedness having one of her spells but it has been improving. Home program performing as directed: Yes. Precautions: Fall Risk: moderate has T10 fracture. Treatment Time in clinic started at 11:00 am Time in clinic ended at 11:42 am Total time in clinic is 42 minutes. Total timed code time is 38 minutes. Therapeutic exercise (92224): timed minutes 13, units 1 . GAIT BELT USED FROM [facility] NuStep Stepper, seat 5, arms10, Lv 4 UE/LE 5 min X seated alt october 2 x 15 reps X LAQ 1# 2 x 15 reps Ea P X hip add iso with ball 3 hold 2 x 15 reps X seated hip abd with green TB 2 x 15 reps X Seated HS curls green TB 2 x 15 reps X Standing heel raises x 15 reps X Standing hip Flex 2x10 reps P Standing hip Abd 2x10 reps P Standing HS curls 2x10 reps P Standing Hip Ext 2x10 reps P Mini Squats 1x15. Neuromuscular Re-education (92359): timed minutes 25, units 2 . GAIT BELT USED FROM [facility] AND WITH GAIT AND NMR Performed at [facility] this date 01/28/2022 - Feet together on airex Eyes open/closed 3 reps 30 sec holds - Feet semitandem on airex Eyes open/closed 3 reps 20 sec holds - Tandem walk in //bars with min UE support 4 lengths of plinth -fwd/bwd walk in //bars with min UE support 4 lengths of plinth -side steps in // bars with min UE support 6 lengths of plinth - SLS 5-10 sec holds x 3 ea leg with min UE support as nee (more content not included)... Normal [facility] Urinalysis complete panel (U )on 01-22-2022 Bacteria LM.HPF (Urine sed) [#/Area] Many Abnormal None Seen /HPF [facility] Bil[facility] Ql (U) Negative Negative [facility] Clarity (Unsp spec) Clear Clear [facility] Color (U) Yellow Yellow [facility] Epithelial cells LM.HPF (Urine sed) [#/Area] Few [facility] Glucose Test strip (U) [Mass/Vol] Negative Negative [facility] Hemoglobin Ql (U) Negative Negative [facility] Hyaline casts (Urine sed) [#/Area] /[LPF] Abnormal 0 /LPF [facility] Ketones Ql (U) Negative Negative [facility] Leukocyte esterase Test strip Ql (U) Negative Negative [facility] Nitrite Ql (U) 2+ Abnormal Negative [facility] pH (U) 6.5 [pH] 5.0 - 8.0 [facility] Protein (U) [Mass/Vol] Trace Abnormal Negative [facility] RBC LM.HPF (Urine sed) [#/Area] 3-5 /HPF Abnormal 0-3 /HPF [facility] Specific gravity (U) [Rel density] 1.019 1.005 - 1.030 [facility] Urobilinogen Ql (U) Negative Negative [facility] WBC LM.HPF (Urine sed) [#/Area] 0-5 /HPF 0-5 /HPF [facility] PT Progress Noteon 2 PT Progress Note Therapy Diagnosis Assessed Abnormality of gait due to impairment of balance (781.2) (R26.89) Ambulatory dysfunction (719.7) (R26.2) Plan Goals: Goals set and discussed today. Pt will demonstrate independence and compliance with HEP and self management, by week 2, goal met Activity Limitation: TUG 13 or better for decreased fall risk, by week 4, goal partially met Balance: Able to maintain mod tandem without LOB x 10 for decreased fall risk, by week 4, goal met Strength: R and L LE strength 4+/5 throughout or better for increased ease completing STS transfer without UE, by week 4, goal partially met Able to maintain tandem without LOB x 10 for decreased fall risk, by week 4 Planned interventions include: cryotherapy, education/instruction , electrical stimulation, gait training, home program, hot pack, kinesiotaping, manual therapy, neuromuscular re-education, self care/home management, therapeutic activities and therapeutic exercises . has T10 fracture; focus on LE strengthening, static/dynamic bal activities, gait training (calling MD to request script for LBP). Frequency and duration: 2 time(s) a week, for 4 weeks, for 8 visits. Potential to achieve rehab goals is good Progress with POC, as tolerated. Assessment Pt has attended 6 visits of skilled PT for ambulatory dysfunction and abnormal gait consisting of evaluation, ther ex, and neuro re-education. Has benefited from PT objectively as evidenced by improved ability to complete mod tandem x 10 as part of 4 stage bal assessment; however, pt cont to be at increased fall risk as evidenced of TUG of 15. Pt would benefit from cont skilled PT to further increase LE strength, improve bal for decreased fall risk. Discussed with pt bringing up dizziness with MD at next appointment, discussing potential benefits of vestibular PT with MD as pt reports she feels dizziness is contributing to LOB. Pt verbalized understanding. Pt had 3 LOB while amb during session, able to recover with PT assist. Response to treatment: no change in pain. Patient was able to complete today's treatment with some difficulty. Adult Risk Screening There are no spiritual/cultural practices/values/need s that are important to know Initial Fall Risk Screening: ROSITA has fallen in the last 6 months. She has fallen due to loss of balance. Her fall resulted in the following injury: concussion, fx T10, steve in head. ROSITA does not have a fear of falling. She needs assistance with . Needs assistance walking in her home. She needs assistance in an unfamiliar setting. The patient is not using an assistive device. Fall Risk Screening: Patient is identified as a fall risk. Care Plan: Moderate Risk: Low risk interventions plus: do not leave patient on exam table unattended, supervised activity, educate patient/family on falls prevention, review safety initiatives with patient/family, family at bedside as allowed, yellow falls risk band, focus rounding attention, locate patient in area of high visibility, wheelchair, bed, or personal alarm, bedside commode, elevated toilet seat and pharmacy consult for medication concerns. Pain Scale: On a scale of 0 to 10, the patient rates the pain at 2. Please identify location of pain: upper back. Insurance Insurance reviewed Visit number: 6 POC 02/04 supervising PT MY [employer] Medicare, $150 met, $0 once met, 4% co-insurance Onset Date: 2020 Medicare Certification Period: Beginnin2021 Endin2021 Subjective Patient reports:. Back pain currently 2/10. Notes continued difficulty with walking and balance. Feels like things have not improved much with therapy. Back pain worse with sitting and with fatigue (worse by end of day). Home program performing as directed: Yes. Precautions: Fall Risk: moderate has T10 fracture. Objective Ortho R LE MMT: hip flex 4/5, knee ext 4/5 L LE MMT: hip flex 4/5, knee ext 4/5 TUG with SPC 15. Treatment Time in clinic started at 2:20 pm Time in clinic ended at 3:01 pm Total time in clinic is 41 minutes. Total timed code time is 40 minutes. Therapeutic exercise (88226): timed minutes 15, units 1 . NuStep Lv 4 UE/LE 5 min seated alt october 2 x 15 reps X LAQ 1# 2 x 15 reps Ea P X hip add iso with ball 3 hold 2 x 15 reps X seated hip abd with green TB 2 x 15 reps X Seated HS curls green TB 2 x 15 reps X Standing mini squats x 15 reps X Standing heel raises x 15 reps X Standing hip Flex x 15 reps X Standing hip Abd x 15 reps Standing HS curls x 15 reps Standing Hip Ext x 15 reps . Neuromuscular Re-education (89131): timed minutes 25, units 2 . - Feet together on airex Eyes open/closed 3 reps 30 sec holds - Feet semitandem on airex Eyes open/closed 3 reps 20 sec holds X - Tandem walk in //bars with min UE support 2 lengths of the // bars -fwd/bwd walk in //bars with min UE support 2 lengths -side steps in // bars with min UE support 3 lengths - SLS 5-10 sec hold (more content not included)... Normal [facility] Therapy Re-eval Noteon 01-09 Therapy Re-eval Note Therapy Diagnosis Assessed 1. Abnormality of gait due to impairment of balance (781.2) (R26.89) 2. Ambulatory dysfunction (719.7) (R26.2) Plan Goals: Goals set and discussed today. Pt will demonstrate independence and compliance with HEP and self management, by week 2, goal met Activity Limitation: TUG 13 or better for decreased fall risk, by week 4, goal partially met Balance: Able to maintain mod tandem without LOB x 10 for decreased fall risk, by week 4, goal met Strength: R and L LE strength 4+/5 throughout or better for increased ease completing STS transfer without UE, by week 4, goal partially met Able to maintain tandem without LOB x 10 for decreased fall risk, by week 4 Planned interventions include: cryotherapy, education/instruction , electrical stimulation, gait training, home program, hot pack, kinesiotaping, manual therapy, neuromuscular re-education, self care/home management, therapeutic activities and therapeutic exercises . has T10 fracture; focus on LE strengthening, static/dynamic bal activities, gait training (calling MD to request script for LBP). Frequency and duration: 2 time(s) a week, for 4 weeks, for 8 visits. Potential to achieve rehab goals is good Progress with POC, as tolerated. Assessment Pt has attended 6 visits of skilled PT for ambulatory dysfunction and abnormal gait consisting of evaluation, ther ex, and neuro re-education. Has benefited from PT objectively as evidenced by improved ability to complete mod tandem x 10 as part of 4 stage bal assessment; however, pt cont to be at increased fall risk as evidenced of TUG of 15. Pt would benefit from cont skilled PT to further increase LE strength, improve bal for decreased fall risk. Discussed with pt bringing up dizziness with MD at next appointment, discussing potential benefits of vestibular PT with MD as pt reports she feels dizziness is contributing to LOB. Pt verbalized understanding. Pt had 3 LOB while amb during session, able to recover with PT assist. Response to treatment: no change in pain. Patient was able to complete today's treatment with some difficulty. Adult Risk Screening There are no spiritual/cultural practices/values/need s that are important to know Initial Fall Risk Screening: ROSITA has fallen in the last 6 months. She has fallen due to loss of balance. Her fall resulted in the following injury: concussion, fx T10, steve in head. ROSITA does not have a fear of falling. She needs assistance with . Needs assistance walking in her home. She needs assistance in an unfamiliar setting. The patient is not using an assistive device. Fall Risk Screening: Patient is identified as a fall risk. Care Plan: Moderate Risk: Low risk interventions plus: do not leave patient on exam table unattended, supervised activity, educate patient/family on falls prevention, review safety initiatives with patient/family, family at bedside as allowed, yellow falls risk band, focus rounding attention, locate patient in area of high visibility, wheelchair, bed, or personal alarm, bedside commode, elevated toilet seat and pharmacy consult for medication concerns. Pain Scale: On a scale of 0 to 10, the patient rates the pain at 2. Please identify location of pain: upper back. Insurance Insurance reviewed Visit number: 6 POC 02/04 supervising PT MY [employer] Medicare, $150 met, $0 once met, 4% co-insurance Onset Date: 2020 Medicare Certification Period: Beginnin2021 Endin2021 Subjective Patient reports:. Back pain currently 2/10. Notes continued difficulty with walking and balance. Feels like things have not improved much with therapy. Back pain worse with sitting and with fatigue (worse by end of day). Home program performing as directed: Yes. Precautions: Fall Risk: moderate has T10 fracture. Objective Ortho R LE MMT: hip flex 4/5, knee ext 4/5 L LE MMT: hip flex 4/5, knee ext 4/5 TUG with SPC 15. Treatment Time in clinic started at 2:20 pm Time in clinic ended at 3:01 pm Total time in clinic is 41 minutes. Total timed code time is 40 minutes. Therapeutic exercise (76354): timed minutes 15, units 1 . NuStep Lv 4 UE/LE 5 min seated alt march 2 x 15 reps X LAQ 1# 2 x 15 reps Ea P X hip add iso with ball 3 hold 2 x 15 reps X seated hip abd with green TB 2 x 15 reps X Seated HS curls green TB 2 x 15 reps X Standing mini squats x 15 reps X Standing heel raises x 15 reps X Standing hip Flex x 15 reps X Standing hip Abd x 15 reps Standing HS curls x 15 reps Standing Hip Ext x 15 reps . Neuromuscular Re-education (07881): timed minutes 25, units 2 . - Feet together on airex Eyes open/closed 3 reps 30 sec holds - Feet semitandem on airex Eyes open/closed 3 reps 20 sec holds X - Tandem walk in //bars with min UE support 2 lengths of the // bars -fwd/bwd walk in //bars with min UE support 2 lengths -side steps in // bars with min UE support 3 lengths - SLS 5-10 se (more content not included)... Normal [facility] PT Progress Noteon 2 PT Progress Note Therapy Diagnosis Assessed Abnormality of gait due to impairment of balance (781.2) (R26.89) Ambulatory dysfunction (719.7) (R26.2) Plan Goals: Goals set and discussed today. Pt will demonstrate independence and compliance with HEP and self management, by week 2 Activity Limitation: TUG 13 or better for decreased fall risk, by week 4 Balance: Able to maintain mod tandem without LOB x 10 for decreased fall risk, by week 4 Strength: R and L LE strength 4+/5 throughout or better for increased ease completing STS transfer without UE, by week 4 Planned interventions include: cryotherapy, education/instruction , electrical stimulation, gait training, home program, hot pack, kinesiotaping, manual therapy, neuromuscular re-education, self care/home management, therapeutic activities and therapeutic exercises . has T10 fracture; focus on LE strengthening, static/dynamic bal activities, gait training (calling MD to request script for LBP). Frequency and duration: 2 time(s) a week, for 4 weeks, for 8 visits. Potential to achieve rehab goals is good Continue to progress with B/L LE strength and balance. Progress with POC, as tolerated. Assessment Good form and tolerance to ex's performed today without significant pain increase. Response to treatment: improved strength. Patient was able to complete today's treatment with some difficulty. Adult Risk Screening There are no spiritual/cultural practices/values/need s that are important to know Initial Fall Risk Screening: ROSITA has fallen in the last 6 months. She has fallen due to loss of balance. Her fall resulted in the following injury: concussion, fx T10, steve in head. ROSITA does not have a fear of falling. She needs assistance with . Needs assistance walking in her home. She needs assistance in an unfamiliar setting. The patient is not using an assistive device. Fall Risk Screening: Patient is identified as a fall risk. Care Plan: Moderate Risk: Low risk interventions plus: do not leave patient on exam table unattended, supervised activity, educate patient/family on falls prevention, review safety initiatives with patient/family, family at bedside as allowed, yellow falls risk band, focus rounding attention, locate patient in area of high visibility, wheelchair, bed, or personal alarm, bedside commode, elevated toilet seat and pharmacy consult for medication concerns. Please identify location of pain: upper back. Insurance Insurance reviewed Visit number: 5 POC 12/05 supervising PT MY [employer] Medicare, $150 met, $0 once met, 4% co-insurance Onset Date: 2020 Medicare Certification Period: Beginnin2021 Endin2021 Subjective Patient reports:. Pt reports that she is not having pain today but that her back was very sore and painful yesterday. Home program performing as directed: Yes. Precautions: Fall Risk: moderate has T10 fracture. Treatment Time in clinic started at 10:45 am Time in clinic ended at 11:25 am Total time in clinic is 40 minutes. Total timed code time is 38 minutes. Therapeutic exercise (23512): timed minutes 38, units 2 . NuStep Lv 4 UE/LE 5 min seated alt october 2 x 15 reps P LAQ 1# 2 x 15 reps Ea P hip add iso with ball 3 hold 2 x 15 reps P seated hip abd with green TB 2 x 15 reps P Seated HS curls green TB 2 x 15 reps P Standing mini squats x 15 reps P Standing heel raises x 15 reps P Standing hip Flex x 15 reps N Standing hip Abd x 15 reps N Standing HS curls x 15 reps N Standing Hip Ext x 15 reps N . Neuromuscular Re-education (52136):. X today - Feet together on airex Eyes open/closed 3 reps 30 sec holds - Feet semitandem on airex Eyes open/closed 3 reps 320 sec holds - Tandem walk in //bars with min UE support 2 lengths of the // bars X -fwd/bwd walk in //bars with min UE support 2 lengths N -side steps in // bars with min UE support 3 lengths N - SLS 5-10 sec holds x 3 ea leg with min UE support as needed X -3 small hurdles in // bars x 2 laps fwd step overs N. Provided today: education . edu on proper form and speed of movement with ex's. Pt demonstrated good understanding. 'Scores and Scales' Signatures Electronically signed by : Christiano Cardoza, PT; Dec 30 2021 11:24AM EST (Author) Normal [facility] PT Progress Noteon 2 PT Progress Note Therapy Diagnosis Assessed Abnormality of gait due to impairment of balance (781.2) (R26.89) Ambulatory dysfunction (719.7) (R26.2) Plan Goals: Goals set and discussed today. Pt will demonstrate independence and compliance with HEP and self management, by week 2 Activity Limitation: TUG 13 or better for decreased fall risk, by week 4 Balance: Able to maintain mod tandem without LOB x 10 for decreased fall risk, by week 4 Strength: R and L LE strength 4+/5 throughout or better for increased ease completing STS transfer without UE, by week 4 Planned interventions include: cryotherapy, education/instruction , electrical stimulation, gait training, home program, hot pack, kinesiotaping, manual therapy, neuromuscular re-education, self care/home management, therapeutic activities and therapeutic exercises . has T10 fracture; focus on LE strengthening, static/dynamic bal activities, gait training (calling MD to request script for LBP). Frequency and duration: 2 time(s) a week, for 4 weeks, for 8 visits. Potential to achieve rehab goals is good Progress with POC, as tolerated. Assessment Required variable UE support to maintain bal during static bal activities on unstable surface. Added weight to LAQ, verbal cues for full ROM with seated ther ex. One LOB while amb in gym without AD, pt able to regain bal I. Cont progressing LE strengthening, bal activities as esdras for decreased fall risk. Response to treatment: no change in pain. Adult Risk Screening There are no spiritual/cultural practices/values/need s that are important to know Initial Fall Risk Screening: ROSITA has fallen in the last 6 months. She has fallen due to loss of balance. Her fall resulted in the following injury: concussion, fx T10, steve in head. ROSITA does not have a fear of falling. She needs assistance with . Needs assistance walking in her home. She needs assistance in an unfamiliar setting. The patient is not using an assistive device. Fall Risk Screening: Patient is identified as a fall risk. Care Plan: Moderate Risk: Low risk interventions plus: do not leave patient on exam table unattended, supervised activity, educate patient/family on falls prevention, review safety initiatives with patient/family, family at bedside as allowed, yellow falls risk band, focus rounding attention, locate patient in area of high visibility, wheelchair, bed, or personal alarm, bedside commode, elevated toilet seat and pharmacy consult for medication concerns. Please identify location of pain: upper back. Insurance Insurance reviewed Visit number: 4 POC 12/05 supervising PT MY [employer] Medicare, $150 met, $0 once met, 4% co-insurance Onset Date: 2020 Medicare Certification Period: Beginnin2021 Endin2021 Subjective Patient reports:. C/o upper back pain, does not rate on numerical scale. No falls, compliant with HEP. Brings cane today, states friend told her that she should. Home program performing as directed: Yes. Precautions: Fall Risk: moderate has T10 fracture. Treatment Time in clinic started at 1:30 pm Time in clinic ended at 2:15 pm Total time in clinic is 45 minutes. Total timed code time is 40 minutes. Therapeutic exercise (10723): timed minutes 29, units 2 . NuStep Lv 4 UE/LE 5 min seated alt october 2 x 10 reps LAQ 1# 2 x 10 reps Ea (progressed weight) hip add iso with ball 3 hold 2 x 10 reps (progress reps next) seated hip abd with green TB 2 x 10 reps (progress reps next) Seated HS curls green TB 2 x 10 reps (progress reps next) Standing mini squats x 15 reps (no time today) Standing heel raises x 15 reps. Neuromuscular Re-education (54954): units 1 . - Feet together on airex Eyes open/closed 3 reps 30 sec holds - Feet semitandem on airex Eyes open/closed 3 reps 320 sec holds - Tandem walk in //bars with min UE support 2 lengths of the // bars X -fwd/bwd walk in //bars with min UE support 2 lengths N -side steps in // bars with min UE support 3 lengths N - SLS 5-10 sec holds x 3 ea leg with min UE support as needed X -3 small hurdles in // bars x 2 laps fwd step overs N. Provided today: education . edu on proper form and speed of movement with ex's. Pt demonstrated good understanding. 'Scores and Scales' Signatures Electronically signed by : Tiffanie Bledsoe, PT; Dec 26 2021 2:18PM EST (Author) Normal [facility] PT Progress Noteon 2 PT Progress Note Therapy Diagnosis Assessed Abnormality of gait due to impairment of balance (781.2) (R26.89) Ambulatory dysfunction (719.7) (R26.2) Plan Goals: Goals set and discussed today. Pt will demonstrate independence and compliance with HEP and self management, by week 2 Activity Limitation: TUG 13 or better for decreased fall risk, by week 4 Balance: Able to maintain mod tandem without LOB x 10 for decreased fall risk, by week 4 Strength: R and L LE strength 4+/5 throughout or better for increased ease completing STS transfer without UE, by week 4 Planned interventions include: cryotherapy, education/instruction , electrical stimulation, gait training, home program, hot pack, kinesiotaping, manual therapy, neuromuscular re-education, self care/home management, therapeutic activities and therapeutic exercises . has T10 fracture; focus on LE strengthening, static/dynamic bal activities, gait training (calling MD to request script for LBP). Frequency and duration: 2 time(s) a week, for 4 weeks, for 8 visits. Potential to achieve rehab goals is good Continue to progress with b/l LE strength, balance and gait training as able. Progress with POC, as tolerated. Assessment Good form and tolerance to ex's performed today without significant pain increase. Pt needs close supervision/assist with standing balance/activity. Pt walks with very slow zaki and shorter steps. Response to treatment: improved strength and improved balance. Patient was able to complete today's treatment with some difficulty. Adult Risk Screening There are no spiritual/cultural practices/values/need s that are important to know Initial Fall Risk Screening: ROSITA has fallen in the last 6 months. She has fallen due to loss of balance. Her fall resulted in the following injury: concussion, fx T10, steve in head. ROSITA does not have a fear of falling. She needs assistance with . Needs assistance walking in her home. She needs assistance in an unfamiliar setting. The patient is not using an assistive device. Fall Risk Screening: Patient is identified as a fall risk. Care Plan: Moderate Risk: Low risk interventions plus: do not leave patient on exam table unattended, supervised activity, educate patient/family on falls prevention, review safety initiatives with patient/family, family at bedside as allowed, yellow falls risk band, focus rounding attention, locate patient in area of high visibility, wheelchair, bed, or personal alarm, bedside commode, elevated toilet seat and pharmacy consult for medication concerns. Pain Scale: On a scale of 0 to 10, the patient rates the pain at 2. Please identify location of pain: upper back. Insurance Insurance reviewed Visit number: 3 POC 09/06 supervising PT MY [employer] Medicare, $150 met, $0 once met, 4% co-insurance Onset Date: 2020 Medicare Certification Period: Beginnin2021 Endin2021 Subjective Patient reports:. Pt reports that she is doing ok today, but that her upper back was pretty painful yesterday due to PET scan up in [place]. Home program performing as directed: Yes. Precautions: Fall Risk: moderate has T10 fracture. Treatment Time in clinic started at 11:30 am Time in clinic ended at 12:11 pm Total time in clinic is 41 minutes. Total timed code time is 39 minutes. Therapeutic exercise (90141): timed minutes 29, units 3 . NuStep Lv 4 5 min seated alt march 2 x 10 reps P LAQ 2 x 10 reps Ea P hip add iso with ball 3 hold 2 x 10 reps P seated hip abd with green TB 2 x 10 reps P Seated HS curls green TB 2 x 10 reps P Standing mini squats x 15 reps P Standing heel raises x 15 reps. Neuromuscular Re-education (69066): units 1 . - Feet together on airex Eyes open/closed 3 reps 15-20 sec holds - Feet semitandem on airex Eyes open/closed 3 reps 15-20 sec holds - Tandem walk in //bars with min UE support 2 lengths of the // bars - SLS 5-10 sec holds x 3 ea leg with min UE support as needed N. Provided today: education . edu on proper form and speed of movement with ex's. Pt demonstrated good understanding. 'Scores and Scales' Signatures Electronically signed by : Christiano Cardoza, PT; Dec 23 2021 12:15PM EST (Author) Normal [facility]works GLUCOSE, BLOOD (POC)on 12-22 Glucose [Mass/Vol] 88 mg/dL 74 - 99 mg/dL [facility] NM PET/CT SKULL-THIGH SUBSEQ UENTon 12-22-2021 [facility] PT Progress Noteon 2 PT Progress Note Therapy Diagnosis Assessed Abnormality of gait due to impairment of balance (781.2) (R26.89) Ambulatory dysfunction (719.7) (R26.2) Plan Goals: Goals set and discussed today. Pt will demonstrate independence and compliance with HEP and self management, by week 2 Activity Limitation: TUG 13 or better for decreased fall risk, by week 4 Balance: Able to maintain mod tandem without LOB x 10 for decreased fall risk, by week 4 Strength: R and L LE strength 4+/5 throughout or better for increased ease completing STS transfer without UE, by week 4 Planned interventions include: cryotherapy, education/instruction , electrical stimulation, gait training, home program, hot pack, kinesiotaping, manual therapy, neuromuscular re-education, self care/home management, therapeutic activities and therapeutic exercises . has T10 fracture; focus on LE strengthening, static/dynamic bal activities, gait training (calling MD to request script for LBP). Frequency and duration: 2 time(s) a week, for 4 weeks, for 8 visits. Potential to achieve rehab goals is good Continue to work on LE strength, balance and gait training as able. Progress with POC, as tolerated. Assessment Good form and tolerance to all ex's performed without significant pain increase today. Response to treatment: improved strength and improved knowledge and understanding of condition. Patient was able to complete today's treatment with ease. Adult Risk Screening There are no spiritual/cultural practices/values/need s that are important to know Initial Fall Risk Screening: ROSITA has fallen in the last 6 months. She has fallen due to loss of balance. Her fall resulted in the following injury: concussion, fx T10, steve in head. ROSITA does not have a fear of falling. She needs assistance with . Needs assistance walking in her home. She needs assistance in an unfamiliar setting. The patient is not using an assistive device. Fall Risk Screening: Patient is identified as a fall risk. Care Plan: Moderate Risk: Low risk interventions plus: do not leave patient on exam table unattended, supervised activity, educate patient/family on falls prevention, review safety initiatives with patient/family, family at bedside as allowed, yellow falls risk band, focus rounding attention, locate patient in area of high visibility, wheelchair, bed, or personal alarm, bedside commode, elevated toilet seat and pharmacy consult for medication concerns. Pain Scale: On a scale of 0 to 10, the patient rates the pain at 3. Please identify location of pain: upper back. Insurance Insurance reviewed Visit number: 2 POC 09/06 supervising PT MY [employer] Medicare, $150 met, $0 once met, 4% co-insurance Onset Date: 2020 Medicare Certification Period: Beginnin2021 Endin2021 Subjective Patient reports:. Pt reports that her upper back is sore today but not too bad right now due to taking pain medication earlier today. Pt reports that she has to walk very slowly due to LE weakness and balance issues. Home program performing as directed: Yes. Precautions: Fall Risk: moderate has T10 fracture. Treatment Time in clinic started at 1:20 pm Time in clinic ended at 2:00 pm Total time in clinic is 40 minutes. Total timed code time is 38 minutes. Therapeutic exercise (84291): timed minutes 28, units 2 . Sci fit upper/lower body bike Lv 1 5 min N seated alt march x 15 ea P LAQ x 15 Ea P hip add iso with ball 3 hold x 15 P seated hip abd with green TB x 15 P Seated HS curls green TB x 15 N Standing mini squats x 10 reps N Standing heel raises x 15 reps N. Neuromuscular Re-education (00433): timed minutes 10, units 1. Provided today: education . edu on proper form and speed of movement with ex's. Pt demonstrated good understanding. 'Scores and Scales' Signatures Electronically signed by : Christiano Cardoza, PT; Dec 18 2021 1:59PM EST (Author) Normal [facility] PT Initial Evaluationon 04-0 PT Initial Evaluation Therapy Diagnosis Assessed Ambulatory dysfunction (719.7) (R26.2) Abnormality of gait due to impairment of balance (781.2) (R26.89) Plan of Care Goals: Goals set and discussed today. Pt will demonstrate independence and compliance with HEP and self management, by week 2 Activity Limitation: TUG 13 or better for decreased fall risk, by week 4 Balance: Able to maintain mod tandem without LOB x 10 for decreased fall risk, by week 4 Strength: R and L LE strength 4+/5 throughout or better for increased ease completing STS transfer without UE, by week 4 Planned interventions include: cryotherapy, education/instruction , electrical stimulation, gait training, home program, hot pack, kinesiotaping, manual therapy, neuromuscular re-education, self care/home management, therapeutic activities and therapeutic exercises . has T10 fracture; focus on LE strengthening, static/dynamic bal activities, gait training (calling MD to request script for LBP). Frequency and duration: 2 time(s) a week, for 4 weeks, for 8 visits. Potential to achieve rehab goals is good Plan of care was developed with input and agreement by the patient. Assessment Patient presents with signs/symptoms consistent with dx of bal disorder, amb dysfunction: impaired gait, decreased LE strength, impaired bal. Would benefit from skilled PT to improve gait, increase LE strength, improve bal for return to PLOF: able to complete ADLs/IADLs with decreased risk of falling. Barriers to progress in PT include recent T10 fracture; however, rehab potential is good because pt is motivated to participate in PT. At [facility], instructed pt in seated LE strengthening exercise program. No increased symptoms reported after eval. Clinical Presentation: Stable and/or uncomplicated characteristics. Level of Complexity: low Problem List: activity limitations, ADLs/IADLs/self care skills, balance, decreased functional level, decreased knowledge of HEP, fall risk, gait/locomotion, pain, participation restrictions, posture, range of motion/joint mobility, sensory, strength and transfers. Reason For Visit Initial Evaluation . balance disorder, ambulatory dysfunction. Referred by: Dr. Horn Adult Risk Screening There are no spiritual/cultural practices/values/need s that are important to know Initial Fall Risk Screening: ROSITA has fallen in the last 6 months. She has fallen due to loss of balance. Her fall resulted in the following injury: concussion, fx T10, steve in head. ROSITA does not have a fear of falling. She needs assistance with . Needs assistance walking in her home. She needs assistance in an unfamiliar setting. The patient is not using an assistive device. Fall Risk Screening: Patient is identified as a fall risk. Care Plan: Moderate Risk: Low risk interventions plus: do not leave patient on exam table unattended, supervised activity, educate patient/family on falls prevention, review safety initiatives with patient/family, family at bedside as allowed, yellow falls risk band, focus rounding attention, locate patient in area of high visibility, wheelchair, bed, or personal alarm, bedside commode, elevated toilet seat and pharmacy consult for medication concerns. Pain Scale: On a scale of 0 to 10, the patient rates the pain at 5. Please identify location of pain: upper back. Insurance Insurance reviewed Visit number: 1 POC 09/06 supervising PT VIKAS Chahal Medicare, $150 met, $0 once met, 4% co-insurance Onset Date: 2020 Medicare Certification Period: Beginnin2021 Endin2021 Subjective Current Episode of Functional Impairment and/or Pain Date of onset: 11/04/21 Mechanism of Injury:. Has had two falls in past 6 months. Was walking to mailbox when she slid on ice. Was unable to get up on own, neighbor helped. Reports that she is not able to drive because of vision issue - glaucoma. No hearing issues. C/o some neuropathy in feet. Was at son's house in [place] - went into bedroom to get item from suitcase. Fell backward and hit her head. Was able to get up on her own from her fall. Doesn't recall fall. Thought she was just fine; however, she had a concussion ([id number] brought her to hospital). Neurologist ordered MRI of brain - unremarkable per patient, carotid US - normal per patient. Has not done trial of medicine for Parkinson's Disease. PCP is also treating pt for orthostatic hypotension, which per patient, is improving. C/o pain in mid back and pain in R-sided back muscles. Pain 5/10 at rest, 10/10 with lumbar extension - states that there is nothing to be done for T10 fracture other than a pill that she takes in the morning. Notes there are certain situations where she feels more off balance - when standing after sitting for a long while, at night when she is tired. Current level of function: uses cane and walker as needed in home. Lives alone in a condo. No stairs/steps to enter - bed/bath on first level. Has not been driving (but (more content not included)... Normal [facility] [facility], Urineon 11-07-2021 Bacteria identified Cx Nom (U) Abnormal [facility] Work Phone: Cult, Urineon 11-05-2021 Bacteria identified Cx Nom (U) Abnormal [facility] Work Phone: XR HIP BILAT 5V PEL/AP/LAT E ACH HIPon 2020 IMPRESSION: 1. Moderate narrowing of the RIGHT hip joint 2. Extremely large amount of fecal debris in the colon Help Desk Support: JUDITH Transcribe Date/Time: 2020 2:31P Dictated by : HENRY FORTE DO This examination was interpreted and the report reviewed and electronically signed by: HENRY FORTE DO on 2020 2:32PM [facility] DIVISION OF RADIOLOGY * * *Final Report* * * DATE OF EXAM: 2020 2:22PM WOX 5353 - XR HIP WIL 5V PEL+ AP/LAT EA HIP / PROCEDURE REASON: Hip pain * * * * Physician Interpretation * * * * Pelvis and Bilateral hips HISTORY: Indication: Hip pain Pt. states Rt hip pain on and off for 1 year. No injury. No Lt hip pain. TECHNIQUE: Images: XR HIP WIL 5V PEL+ AP/LAT EA HIP Comparison: None. RESULT: Findings: Pelvis: No fractures or dislocations are seen. Bone density appears well preserved. Very large amount of fecal debris throughout the colon Moderate degenerative changes lower lumbar spine. Postsurgical clips project over the LEFT ischium Right hip: No fractures or dislocations are seen. Moderate narrowing of RIGHT hip joint. Left hip: No fractures or dislocations are seen. DIVISION OF RADIOLOGY Provider, [facility] - 2020 * * *Final Report* * * DATE OF EXAM: 2020 2:22PM WOX 5353 - XR HIP WIL 5V PEL+ AP/LAT EA HIP / PROCEDURE REASON: Hip pain * * * * Physician Interpretation * * * * Pelvis and Bilateral hips HISTORY: Indication: Hip pain Pt. states Rt hip pain on and off for 1 year. No injury. No Lt hip pain. TECHNIQUE: Images: XR HIP WIL 5V PEL+ AP/LAT EA HIP Comparison: None. RESULT: Findings: Pelvis: No fractures or dislocations are seen. Bone density appears well preserved. Very large amount of fecal debris throughout the colon Moderate degenerative changes lower lumbar spine. Postsurgical clips project over the LEFT ischium Right hip: No fractures or dislocations are seen. Moderate narrowing of RIGHT hip joint. Left hip: No fractures or dislocations are seen. IMPRESSION IMPRESSION: 1. Moderate narrowing of the RIGHT hip joint 2. Extremely large amount of fecal debris in the colon Help Desk Support: JUDITH Transcribe Date/Time: 2020 2:31P Dictated by : HENRY FORTE DO This examination was interpreted and the report reviewed and electronically signed by: HENRY FORTE DO on 2020 2:32PM EST [facility] Radiology Study observation (narrative) [facility] XR HIP BILAT 5V PEL/AP/LAT E ACH HIPOrdered By: Ccf Provider on 2020 [facility] C Urineon 05-13-2019 C Urine Final Report: Rare Normal skin phu isolated to date Normal [facility] Comment on above: Performed By: #### 2 [id number] #### [facility] RemHemo [address] [place] [id number] UA Completeon 05-11-2019 Color (U) Yellow Normal Yellow [facility] Comment on above: Performed By: #### 2 551655 #### PE[place] RemHemo [address] [place] [id number] Glucose (U) [Mass/Vol] Negative Normal Negative [facility] Comment on above: Performed By: #### 2 637659 #### [facility] RemHemo [address] [place] [id number] Ketones Ql (U) Negative Normal Negative [facility] Comment on above: Performed By: #### 2 615503 #### PEY[facility] RemHemo [address] [place] [address] UA Blood Negative Normal Negative [facility] Comment on above: Performed By: #### 2 539078 #### [facility] RemHemo [address] [place] [address] UA Clarity SltCloudy Abnormal Clear [facility] Comment on above: Performed By: #### 2 777612 #### [facility] RemHemo [address] [place] [address] UA Leuk Est 2+ Abnormal Negative [facility] Comment on above: Performed By: #### 2 131369 #### [facility] RemHemo [address] [place] [address] UA Mucous Trace Abnormal Trace [facility] Comment on above: Performed By: #### 2 476436 #### [facility] RemHemo [address] [place] [address] UA Nitrite Negative Normal Negative [facility] Comment on above: Performed By: #### 2 181511 #### PEYTON LomasHemo [address] [place] [address] UA pH 5.0 Normal 4.6-8.0 [facility] Comment on above: Performed By: #### 2 929673 #### PEYTON LomasHemo [address] [place] [id number] UA Protein 1+ Abnormal Negative [facility] Comment on above: Performed By: #### 2 995950 #### PEYTON LomasHemo [address] [place] [address] UA Spec Grav 1.024 Normal 1.003-1.030 [facility] Comment on above: Performed By: #### 2 111499 #### PEYTON LomasHemo [address] [place] [id number] UA Squam Epithelial 0-5 Normal 0-5 [facility] Comment on above: Performed By: #### 2 294492 #### PEYTON LomasHemo [address] [place] [address] UA Urobilinogen 2.0 mg/dL Abnormal [facility] Comment on above: Result Comment: Due to a manufacturing issue, low positive urobilinogen results may be fasely positive. Correlate with urine bilirubin and additional clinical/laboratory findings to assess the risk of hemolytic anemia or liver disease. If clinically indicated, repeat testing with an alternate method is available by contacting the laboratory within 24 hours. Performed By: #### 2 498173 #### PEYTON LomasHemo [address] [place] [phone] UA WBC 20-50 Abnormal 0-5 [facility] Comment on above: Performed By: #### 2 825074 #### PE[facility]TON LomasHemo [facility] [place] [phone] Urobilinogen Qn (U) Negative Normal Negative [facility] Comment on above: Performed By: #### 2 963366 #### PEYTON LomasHemo [address] [place] [id number] CT Head or Brain w/o Contras ton 12-13-2018 CT Head or Brain w/o Contrast Exam Date/Time: 12/13/2018 13:08 EDT Reason for Exam: SYNCOPE;Syncope Report STUDY: CT Head or Brain w/o Contrast; 12/13/2018 1:08 pm INDICATION: Syncope. COMPARISON: 08/12/2018 ACCESSION NUMBER(S): [id number] ORDERING CLINICIAN: Jimmy Pizarro TECHNIQUE: Noncontrast axial CT scan of head was performed. Angled reformats in brain and bone windows were generated. The images were reviewed in bone, brain, blood and soft tissue windows. FINDINGS: CSF Spaces: Prominent CSF spaces noted related to atrophy. There is no extraaxial fluid collection. 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 The metcalf-white differentiation is intact. There is no mass effect or midline shift. There is no intracranial hemorrhage. Calvarium: The calvarium is unremarkable. Paranasal sinuses and mastoids: Visualized paranasal sinuses and mastoids are clear. IMPRESSION: No evidence of acute cortical infarct or intracranial hemorrhage. No evidence of intracranial hemorrhage or displaced skull fracture. FINAL REPORT Dictated: 12/13/2018 1:12 pm Horacio Vargas MD Signed (Electronic Signature): 12/13/2018 1:12 pm Signed by: Horacio Vargas MD Technologist: MM Normal [facility] Auto Diffon 12-09-2018 Basophils (Bld) [#/Vol] 0.1 E3/mcL Normal 0.0-0.2 [facility] Comment on above: Order Comment: Order Added by Discern Expert. Performed By: #### 2 574754 #### [facility] RemHemo [facility] [place] [phone] Basophils/100 WBC (Bld) 1.3 % Normal 0.0-2.0 [facility] Comment on above: Order Comment: Order Added by Discern Expert. Performed By: #### 2 144758 #### [facility] RemHemo [facility] [place] [address] Eos Absolute 0.2 E3/mcL Normal 0.0-0.7 [facility] Comment on above: Order Comment: Order Added by Discern Expert. Performed By: #### 2 216127 #### PEYTON LomasHemo [address] [place] [address] Eosinophils/100 WBC (Bld) 3.7 % Normal 0.0-11.0 [facility] Comment on above: Order Comment: Order Added by Discern Expert. Performed By: #### 2 529739 #### PEYTON LomasHemo [address] [place] [address] Lymphocytes (Bld) [#/Vol] 0.7 E3/mcL Low 1.2-3.4 [facility] Comment on above: Order Comment: Order Added by Discern Expert. Performed By: #### 2 691236 #### PEYTON LomasHemo [address] [place] [address] Lymphocytes/100 WBC (Bld) 17.2 % Low 20.0-55.0 [facility] Comment on above: Order Comment: Order Added by Discern Expert. Performed By: #### 2 943721 #### PEYTON LomasHemo [address] [place] [address] Gilliam Absolute 0.4 E3/mcL Normal 0.0-0.7 [facility] Comment on above: Order Comment: Order Added by Discern Expert. Performed By: #### 2 420325 #### PEYTON LomasHemo [address] [place] [address] Monocytes/100 WBC (Bld) 9.6 % Normal 0.0-10.0 [facility] Comment on above: Order Comment: Order Added by Discern Expert. Performed By: #### 2 825623 #### PEYTON LomasHemo [address] [place] [address] Neutro Absolute 2.8 E3/mcL Normal 1.4-6.5 [facility] Comment on above: Order Comment: Order Added by Discern Expert. Performed By: #### 2 242209 #### PEYTON LomasHemo [address] [place] [address] Neutro Auto 68.2 % Normal 37.0-75.0 [facility] Comment on above: Order Comment: Order Added by Discern Expert. Performed By: #### 2 043015 #### PEYTON LomasHemo [address] [place] [address] CBC w/ Auto Diffon 04-12-201 9 Erythrocyte distribution width (RBC) [Ratio] 17.6 % High 11.5-14.5 [facility] Comment on above: Performed By: #### 2 930434 ####PEYTON Gtzo[address] [place] [address] Hematocrit (Bld) [Volume fraction] 30.1 % Low 36.0-48.0 [facility] Comment on above: Performed By: #### 2 648096 ####PE[facility]TON Gtzo[address] [place] [address] Hemoglobin (Bld) [Mass/Vol] 9.7 g/dL Low 12.0-16.0 [facility] Comment on above: Performed By: #### 2 081719 ####PE[facility] Gtzo[address] [place] [address] MCH (RBC) [Entitic mass] 25.2 pg Low 27.0-31.0 [facility] Comment on above: Performed By: #### 2 841384 ####PE[place] Gtzo[address] [place] [address] MCHC (RBC) [Mass/Vol] 32.1 g/dL Low 33.0-37.0 [facility] Comment on above: Performed By: #### 2 019871 ####PE[place] Gtzo[address] [place] [address] MCV (RBC) [Entitic vol] 78.4 fL Normal 78.0-100.0 [facility] Comment on above: Performed By: #### 2 294131 ####PEYTON Gtzo[address] [place] [address] Platelet mean volume (Bld) [Entitic vol] 7.5 fL Normal 7.4-11.0 [facility] Comment on above: Performed By: #### 2 326890 ####PEYTON [address]StcJeun[address] [place] [address] Platelets (Bld) [#/Vol] 331 E3/mcL Normal 130-400 [facility] Comment on above: Performed By: #### 2 246790 ####PEYTON L[address]XsmMgxz5841 [place] [address] RBC (Bld) [#/Vol] 3.84 E6/mcL Low 3.90-5.40 [facility] Comment on above: Performed By: #### 2 718802 ####PE[place]TON LomasPnvLkzx0228 [place] [address] WBC (Bld) [#/Vol] 4.0 E3/mcL Normal 3.6-11.0 [facility] Comment on above: Performed By: #### 2 104916 ####PEYTON VtbUlpt5054 [place] [address] CMPon 12-09-2018 Albumin [Mass/Vol] 3.7 g/dL Normal 3.4-5.0 [facility] Comment on above: Performed By: #### 2 823094 ####PEYTON MznSuad3659 [place] [address] Albumin/Globulin [Mass ratio] 1.2 {ratio} Normal 1.1-1.9 [facility] Comment on above: Performed By: #### 2 169418 ####PEYTON IqfNcwb9785 [place] [address] Alk Phos 70 Int._Unit/L Normal 33-136 [facility] Comment on above: Performed By: #### 2 171295 ####PE[facility]TON FzqEzzw1586 [place] [address] ALT [Catalytic activity/Vol] 25 Int._Unit/L Normal 7-45 [facility] Comment on above: Performed By: #### 2 711760 ####PEYTONBerna JohnsonKoqGaam1409 [place] [address] Anion gap [Moles/Vol] 13 mmol/L Normal 10-20 [facility] Comment on above: Performed By: #### 2 599210 ####PEYTONBerna JohnsonEabUauz7222 [place] [address] AST [Catalytic activity/Vol] 37 Int._Unit/L Normal 9-39 [facility] Comment on above: Performed By: #### 2 982170 ####PEYTONBerna JohnsonEtnExkj0332 [place] [address] Bili Total 0.25 mg/dL Normal 0.00-1.20 [facility] Comment on above: Performed By: #### 2 543749 ####PEYTON JpwVjjb9474 [place] [address] Calcium [Mass/Vol] 9.5 mg/dL Normal 8.6-10.3 [facility] Comment on above: Performed By: #### 2 808617 ####PE[place]TON FzgKcsn4360 [place] [address] Chloride [Moles/Vol] 102 mmol/L Normal 98-107 [facility] Comment on above: Performed By: #### 2 615009 ####PE[place]TON AwjEmho2590 [place] [address] CO2 [Moles/Vol] 28.0 mmol/L Normal 21.0-32.0 [facility] Comment on above: Performed By: #### 2 242853 ####PEYTON RcbCnkm4542 [place] [address] Creatinine [Mass/Vol] 0.9 mg/dL Normal 0.5-1.1 [facility] Comment on above: Performed By: #### 2 268548 ####PEYTON PmoXqjv6443 [place] [address] Globulin (S) [Mass/Vol] 3.0 g/dL Normal 2.0-4.0 [facility] Comment on above: Performed By: #### 2 072611 ####PE[facility]TON PteLebg5559 [place] [address] Glucose [Mass/Vol] 138 mg/dL High 70-99 [facility] Comment on above: Performed By: #### 2 375191 ####PEYTON GsvSztc9198 [place] [address] Potassium [Moles/Vol] 3.4 mmol/L Low 3.5-5.3 [facility] Comment on above: Performed By: #### 2 175409 ####PE[place]TON IsqNwrd6308 [place] [address] Protein [Mass/Vol] 6.9 g/dL Normal 6.4-8.2 [facility] Comment on above: Performed By: #### 2 915735 ####PEYTON GrmOkdg0930 [place] [address] Sodium [Moles/Vol] 139 mmol/L Normal 136-145 [facility] Comment on above: Performed By: #### 2 415300 ####PE[facility]TON UpxNexf6949 [place] [address] Urea nitrogen [Mass/Vol] 19 mg/dL Normal 6-23 [facility] Comment on above: Performed By: #### 2 949893 ####PE[place] VrjWsnt3249 [place] [address] Urea nitrogen/Creatinine [Mass ratio] 21.1 ratio Normal 5.4-30.0 [facility] Comment on above: Performed By: #### 2 739265 ####PEYTON OkaHhgq8152 [place] [address] Morphon 12-09-2018 Hypochromasia 1+ Normal [facility] Comment on above: Order Comment: Order Added by Discern Expert. Performed By: #### 1 [id number] ####PE[facility] RfwWebc7663 [place] [address] RBC morphology finding Nom (Bld) SEE MORPHOLOGY Normal [facility] Comment on above: Order Comment: Order Added by Discern Expert. Performed By: #### 1 [id number] ####[facility] WiiHoky9056 [place] [address] Sed Rate Automatedon 019 Sed Rate Automated 62 mm/hr Normal [facility] Comment on above: Result Comment: AGE- SPECIFIC REFERENCE RANGES FOR SEDIMENTATION RATE AUTOMATED REFERENCE RANGE - MM/HR AGE MEN WOMEN 0-2 0-2 - PUBERTY 3-13 3-13 PUBERTY - 50 YRS 0-15 0-20 > 50 YRS 0-20 0-30 Performed By: #### 1 [id number] ####PE[facility]TON Hematology Manual Ykuthdfnoi[address] [place] [address] TSHon 12-09-2018 TSH Qn 4.21 mcIU/mL Normal 0.30-5.60 [facility] Comment on above: Performed By: #### 2 762575 #### [place] RemHemo [address] [place] [address] Vit B12on 12-09-2018 Cobalamin (Vitamin B12) [Mass/Vol] 379 pg/mL Normal 180-914 [facility] Comment on above: Performed By: #### 2 782110 #### [place] RemHemo [address] [place] [address] eGFRon 12-09-2018 GFR/1.73 sq M predicted among non-blacks MDRD (S/P/Bld) [Vol rate/Area] mL/min/{1.73_m2} Normal [facility] Comment on above: Order Comment: Order added by Discern Expert. Performed By: #### 1 [id number] ####PE[facility]TON CwdMpff6588 [place] [address] zzplt morphon 12-09-2018 Platelet morphology finding Nom (Bld) NORMAL Normal [facility] Comment on above: Performed By: #### 2 032872 #### [facility] LomasHemo [facility] [place] [address] Platelets (Bld) [#/Vol] NORMAL Normal [facility] Comment on above: Performed By: #### 2 704542 #### [facility] RemHemo [facility] [place] [address] Lab Miscellaneouson 12-09-19 19 Status See Ref Lab Report Normal [facility] Comment on above: Performed By: #### 1 5447910 ####PEYTON Send Outs Mmwuzcqimf5[address] [place] [address] Lab Miscellaneouson 12-03-19 19 Test Name LC TEST [id number] Normal [facility] Comment on above: Performed By: #### 1 [id number] ####PEYTON Send Outs Ituklcctdn4287 [place] [address] Auto Diffon 12-01-2018 Basophils (Bld) [#/Vol] 0.1 E3/mcL Normal 0.0-0.2 [facility] Comment on above: Order Comment: Order Added by Discern Expert. Performed By: #### 2 007397 ####PE[facility]TON EbtYkro5634 [place] [address] Basophils/100 WBC (Bld) 0.7 % Normal 0.0-2.0 [facility] Comment on above: Order Comment: Order Added by Discern Expert. Performed By: #### 2 474882 ####PE[facility]TON BgyMhzn5541 [place] [address] Eos Absolute 0.1 E3/mcL Normal 0.0-0.7 [facility] Comment on above: Order Comment: Order Added by Discern Expert. Performed By: #### 2 660526 ####PE[facility]TON Gtzo[address] [place] [address] Eosinophils/100 WBC (Bld) 1.0 % Normal 0.0-11.0 [facility] Comment on above: Order Comment: Order Added by Discern Expert. Performed By: #### 2 294203 ####PE[facility]TON Gtzo[address] [place] [address] Lymphocytes (Bld) [#/Vol] 0.8 E3/mcL Low 1.2-3.4 [facility] Comment on above: Order Comment: Order Added by Discern Expert. Performed By: #### 2 500254 ####PE[place] Gtzo[address] [place] [address] Lymphocytes/100 WBC (Bld) 10.0 % Low 20.0-55.0 [facility] Comment on above: Order Comment: Order Added by Discern Expert. Performed By: #### 2 070527 ####PE[place] G[address]zo[address] [place] [address] Gilliam Absolute 0.9 E3/mcL High 0.0-0.7 [facility] Comment on above: Order Comment: Order Added by Discern Expert. Performed By: #### 2 230806 ####PEYTON G[address]zo[address] [place] [address] Monocytes/100 WBC (Bld) 11.0 % High 0.0-10.0 [facility] Comment on above: Order Comment: Order Added by Discern Expert. Performed By: #### 2 600922 ####PEYTON LomasKtqPwns7165 [place] [address] Neutro Absolute 6.5 E3/mcL Normal 1.4-6.5 [facility] Comment on above: Order Comment: Order Added by Discern Expert. Performed By: #### 2 399415 ####PE[facility]TON LomasBvrJmmz5356 [place] [address] Neutro Auto 77.3 % High 37.0-75.0 [facility] Comment on above: Order Comment: Order Added by Discern Expert. Performed By: #### 2 366355 ####PE[facility]TON Gtzo[address] [place] [address] CBC w/ Auto Diffon 9 Erythrocyte distribution width (RBC) [Ratio] 17.3 % High 11.5-14.5 [facility] Comment on above: Performed By: #### 2 272352 ####PEYTON Gtzo[address] [place] [address] Hematocrit (Bld) [Volume fraction] 29.8 % Low 36.0-48.0 [facility] Comment on above: Performed By: #### 2 740014 ####PE[place] G[address]zo[address] [place] [address] Hemoglobin (Bld) [Mass/Vol] 9.6 g/dL Low 12.0-16.0 [facility] Comment on above: Performed By: #### 2 433105 ####PE[place] Gtzo[address] [place] [address] MCH (RBC) [Entitic mass] 25.7 pg Low 27.0-31.0 [facility] Comment on above: Performed By: #### 2 041060 ####PE[place]TON G[address]zo[address] [place] [address] MCHC (RBC) [Mass/Vol] 32.1 g/dL Low 33.0-37.0 [facility] Comment on above: Performed By: #### 2 943655 ####PEYTON Gtzo[address] [place] [address] MCV (RBC) [Entitic vol] 79.8 fL Normal 78.0-100.0 [facility] Comment on above: Performed By: #### 2 257718 ####PEYTON Gtzo[address] [place] [address] Platelet mean volume (Bld) [Entitic vol] 7.5 fL Normal 7.4-11.0 [facility] Comment on above: Performed By: #### 2 169713 ####PEYTON Gtzo[address]25 [place] [address] Platelets (Bld) [#/Vol] 328 E3/mcL Normal 130-400 [facility] Comment on above: Performed By: #### 2 465496 ####PE[place] Gtzo1025 [place] [address] RBC (Bld) [#/Vol] 3.73 E6/mcL Low 3.90-5.40 [facility] Comment on above: Performed By: #### 2 270465 ####PEYTON Gtzo1025 [place] [address] WBC (Bld) [#/Vol] 8.4 E3/mcL Normal 3.6-11.0 [facility] Comment on above: Performed By: #### 2 510034 ####PEYTON Gtzo[address]25 [place] [address] CMPon 12-01-2018 Albumin [Mass/Vol] 3.8 g/dL Normal 3.4-5.0 [facility] Comment on above: Performed By: #### 2 928128 ####PEYTON DbeVfle3196 [place] [address] Albumin/Globulin [Mass ratio] 1.4 {ratio} Normal 1.1-1.9 [facility] Comment on above: Performed By: #### 2 501398 ####PEYTON IhpFseb9178 [place] [address] Alk Phos 63 Int._Unit/L Normal 33-136 [facility] Comment on above: Performed By: #### 2 850532 ####PEYTONBerna JohnsonJsxPyvv8128 [place] [address] ALT [Catalytic activity/Vol] 15 Int._Unit/L Normal 7-45 [facility] Comment on above: Performed By: #### 2 823858 ####PEYTONBerna LomasXffVooi1238 [place] [address] Anion gap [Moles/Vol] 6 mmol/L Low 10-20 [facility] Comment on above: Performed By: #### 2 745510 ####PEYTONBerna JohnsonJmqHttw1648 [place] [address] AST [Catalytic activity/Vol] 26 Int._Unit/L Normal 9-39 [facility] Comment on above: Performed By: #### 2 184008 ####PEYTON TrcBzlo7008 [place] [address] Bili Total 0.34 mg/dL Normal 0.00-1.20 [facility] Comment on above: Performed By: #### 2 697591 ####PEYTON NhhKysh[address] [place] [address] Calcium [Mass/Vol] 9.7 mg/dL Normal 8.6-10.3 [facility] Comment on above: Performed By: #### 2 800536 ####PEYTON VzzEqsr7236 [place] [address] Chloride [Moles/Vol] 100 mmol/L Normal 98-107 [facility] Comment on above: Performed By: #### 2 584141 ####PEYTON WnlEvqd9130 [place] [address] CO2 [Moles/Vol] 36.0 mmol/L High 21.0-32.0 [facility] Comment on above: Performed By: #### 2 230092 ####PEYTON DrfXviu3448 [place] [address] Creatinine [Mass/Vol] 1.0 mg/dL Normal 0.5-1.1 [facility] Comment on above: Performed By: #### 2 970363 ####PEYTON PmsGoaa4939 [place] [address] Globulin (S) [Mass/Vol] 3.0 g/dL Normal 2.0-4.0 [facility] Comment on above: Performed By: #### 2 581770 ####PEYTON FvfApuw5725 [place] [address] Glucose [Mass/Vol] 127 mg/dL High 70-99 [facility] Comment on above: Performed By: #### 2 095995 ####PEYTON MmzEiyu4674 [place] [address] Potassium [Moles/Vol] 3.4 mmol/L Low 3.5-5.3 [facility] Comment on above: Performed By: #### 2 813295 ####PEYTONBerna LomasXfnXjvt7102 [place] [address] Protein [Mass/Vol] 6.6 g/dL Normal 6.4-8.2 [facility] Comment on above: Performed By: #### 2 157449 ####PEYTON [id number] [place] [address] Sodium [Moles/Vol] 138 mmol/L Normal 136-145 [facility] Comment on above: Performed By: #### 2 [id number] ####PEY[facility] EdkTnuv4779 [place] [address] Urea nitrogen [Mass/Vol] 22 mg/dL Normal 6-23 [facility] Comment on above: Performed By: #### 2 [id number] ####PEYTON XspYmtn1465 [place] [address] Urea nitrogen/Creatinine [Mass ratio] 22.0 ratio Normal 5.4-30.0 [facility] Comment on above: Performed By: #### 2 [id number] ####PEYTON HawZwmj6037 [place] [address] CTA Cheston 12-01-2018 CTA Chest Exam Date/Time: 12/01/2018 16:39 EDT Reason for Exam: Pulmonary Emboli (PE) Report STUDY: CTA Chest; 12/01/2018 4:39 pm INDICATION: 73 y/o F with Pulmonary Emboli (PE). Pulmonary Emboli (PE). Generalized fatigue, poor appetite COMPARISON: None. ACCESSION NUMBER(S): [id number] ORDERING CLINICIAN: Israel Miller TECHNIQUE: CT was performed following the administration of 73 ml of IV contrast Omnipaque 350 in the pulmonary arterial phase of contrast. Reformats were obtained in the coronal and sagittal plane. MIP images were also reconstructed. FINDINGS: LIMITATIONS/LINES: Right IJ port catheter tip terminates at the cavoatrial junction. PULMONARY ARTERIES: There is a good contrast bolus without evidence of pulmonary embolism. HEART: Heart is within normal limits of size. No significant pericardial effusion. AORTA: Thoracic aorta is normal in caliber with mild scattered atherosclerotic changes. MEDIASTINUM/LYDIA: No mediastinal or hilar lymphadenopathy. PLEURA: Unremarkable. LUNG PARENCHYMA: Central airways are patent. There is dependent atelectasis in the bilateral lung bases. No focal consolidation or effusion. There is a 10 x 6 mm irregular-shaped nodule in the right apex. (Axial image 26). BONES: Unremarkable. UPPER ABDOMEN: There is a small hiatal hernia. CHEST WALL/OTHER: Unremarkable. IMPRESSION: No evidence of pulmonary embolism. Exam Date/Time: 12/01/2018 16:39 EDT Report Indeterminate 10 x 6 mm nodule in the right apex. Follow-up chest CT in 3 months or further evaluation with PET-CT is recommended. Small hiatal hernia. FINAL REPORT Dictated: 12/01/2018 5:28 pm Medhat Chavez MD Signed (Electronic Signature): 12/01/2018 5:28 pm Signed by: Medhat Chavez MD Technologist: AM, Normal [facility] D-Dimeron 12-01-2018 D-Dimer 1816.00 ng/mL Critically abnormal <=500.00 [facility] Comment on above: Result Comment: Crit ical result successfully called to and read back by Blanca Short at 12/01/2018 16:12:38 EDT and reported by [facility]. When the concentration of D-dimer is below the tube handler's cutoff, 500 ng/mL FEU, it may be possible to exclude the diagnosis of DVT and PE in conjunction with a clinical pretest probability assessment. Performed By: #### 2 [id number] ####PEYTON [address] [place] [address] Magnesiumon 12-01-2018 Magnesium [Mass/Vol] 1.7 mg/dL Normal 1.6-2.4 [facility] Comment on above: Performed By: #### 2 [id number] ####PEYTON [address]pkTqye9382 [place] [address] Troponin-Ion 12-01-2018 Troponin I.cardiac [Mass/Vol] 0.01 ng/mL Normal .00-.03 [facility] Comment on above: Performed By: #### 2 [id number] ####PEYTON OndExow2760 [place] [address] UA Completeon 12-01-2018 Color (U) Mason Abnormal Yellow [facility] Comment on above: Performed By: #### 8 [id number] ####PEYTON Urinalysis Automated [address] [place] [address] Glucose (U) [Mass/Vol] Negative Normal Negative [facility] Comment on above: Performed By: #### 8 [id number] ####[facility] Urinalysis Automated [address] [place] [address] Ketones Ql (U) Negative Normal Negative [facility] Comment on above: Performed By: #### 8 [id number] ####PEYTON Urinalysis Automated [address]xyrbc340[address] [place] [address] RBC (U) [#/Vol] 0-3 Normal 0-3 [facility] Comment on above: Performed By: #### 8 [id number] ####PEY[facility] Urinalysis Automated [address] [place] [address] UA Blood Negative Normal Negative [facility] Comment on above: Performed By: #### 8 [id number] ####PE[facility] Urinalysis Automated [address] [place] [address] UA Amorph Gabriella Trace Abnormal None [facility] Comment on above: Performed By: #### 8 [id number] ####PEY[facility] Urinalysis Automated [address] [place] [address] UA Ascorbic Acid 20 mg/dL High <=19 [facility] Comment on above: Performed By: #### 8 [id number] ####PEY[facility] Urinalysis Automated [address] [place] [address] UA Clarity SltCloudy Abnormal Clear [facility] Comment on above: Performed By: #### 8 [id number] ####[facility] Urinalysis Automated [address] [place] [address] UA Leuk Est Negative Normal Negative [facility] Comment on above: Performed By: #### 8 [id number] ####[facility] Urinalysis Automated [address] [place] [id number] UA Nitrite Negative Normal Negative [facility] Comment on above: Performed By: #### 8 [id number] ####[facility] Urinalysis Automated [address]wf[address]h64[address] [place] [address] UA pH 6.0 Normal 4.6-8.0 [facility] Comment on above: Performed By: #### 8 [id number] ####[facility] Urinalysis Automated [address] [place] [id number] UA Protein Negative Normal Negative [facility] Comment on above: Performed By: #### 8 [id number] ####[facility] Urinalysis Automated [address] [place], [place] [id number] UA Spec Grav 1.019 Normal 1.003-1.030 [facility] Comment on above: Performed By: #### 8 [id number] ####[facility] Urinalysis Automated [address] [place] [address] UA Urobilinogen Negative Normal [facility] Comment on above: Result Comment: Due to a manufacturing issue, low positive urobilinogen results may be fasely positive. Correlate with urine bilirubin and additional clinical/laboratory findings to assess the risk of hemolytic anemia or liver disease. If clinically indicated, repeat testing with an alternate method is available by contacting the laboratory within 24 hours. Performed By: #### 8 [id number] ####[facility] Urinalysis Automated [address] [place] [address] UA WBC 0-5 Normal 0-5 [facility] Comment on above: Performed By: #### 8 [id number] ####[facility] Urinalysis Automated [address] [place] [address] Urobilinogen Qn (U) Negative Normal Negative [facility] Comment on above: Performed By: #### 8 [id number] ####[facility] Urinalysis Automated [address] [place] [address] eGFRon 12-01-2018 GFR/1.73 sq M predicted among non-blacks MDRD (S/P/Bld) [Vol rate/Area] mL/min/{1.73_m2} [facility] Comment on above: Order Comment: Order added by Discern Expert. Performed By: #### 1 [id number] ####PE[facility]TON [address] [place] [id number] GFR/1.73 sq M predicted among non-blacks MDRD (S/P/Bld) [Vol rate/Area] 55 mL/min/1.73 m2 [facility] Comment on above: Order Comment: Order added by Discern Expert. Performed By: #### 1 [id number] ####PEY[facility] [address]em[address] [place] [address] CT CERVICAL SPINE W/O CONTRA STon 08-17-2018 CT CERVICAL SPINE W/O CONTRAST Performed at [facility] APPROVED BY: Huey Moreno MD EXAMINATION: CT CERVICAL SPINE W/O CONTRAST CLINICAL HISTORY: Trauma, pain, history of multiple sclerosis. TECHNIQUE: CT of the cervical spine without IV contrast. Spiral, high resolution axial images were obtained from the skull base to the cervicothoracic junction with sagittal and coronal planar reconstructions.MQ: [id number] CT Dose-Length Product (DLP): 548 mGy*cmCT Dose Reduction Employed: 5-no dose reduction technique was required COMPARISON: None. RESULT: Counting reference: Craniocervical junction. Anatomic Variants: None. Alignment: 2 mm degenerative anterolisthesis C4-5 and C7-T1 level. Craniocervical junction: Craniocervical junction is normal. Osseous structures/fracture: No evidence of a lytic or blastic process in the visualized spine. No evidence of acute or chronic fracture. 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 At C4-5 level, left facet joint arthropathy.At C5-6 level, degenerative disc changes with uncovertebral spurs contributing to right foraminal stenosis.At C6-7 level, degenerative disc changes small uncovertebral spurs contribute to mild bilateral foraminal narrowing. IMPRESSION: 1. No CT evidence of acute trauma. No acute fracture or subluxation.2.12 mm spiculated irregular mass in the right upper lobe of the lung seen on axial image 122 suspicious for a neoplastic mass. Reference to the patient's medical history is indicated. , Normal [employer] [facility] CT HEAD W/O CONTRASTon 08-17 CT HEAD W/O CONTRAST Performed at [facility] APPROVED BY: Huey Moreno MD EXAMINATION: CT HEAD W/O CONTRAST CLINICAL HISTORY: Trauma, headache, laceration TECHNIQUE: Serial axial images without IV contrast were obtained from the vertex to the foramen magnum.MQ: [id number]_3 CT Dose-Length Product (DLP): 883 mGy*cmCT Dose Reduction Employed: 5-no dose reduction technique was required COMPARISON: None. RESULT: Post-operative change: None. Acute change: No evidence of an acute infarct or other acute parenchymal process. Hemorrhage: No evidence of acute intracranial hemorrhage. Mass Lesion / Mass Effect: There is no evidence of an intracranial mass or extraaxial fluid collection. No significant mass effect. Chronic change: None apparent. Parenchyma: There is no significant volume loss. The brain parenchyma is otherwise within normal limits for age. Ventricles: Generalized ventricular enlargement corresponding to the degree of atrophy Paranasal sinuses and skull base: The visualized paranasal sinuses are grossly clear. The skull base and imaged soft tissues are unremarkable. IMPRESSION: No CT evidence of acute intracranial injury. Normal [facility] Cult Urineon 08-17-2018 Cult Urine Test performed at [facility] ORGANISM: Pseudomonas aeruginosa (ID: 1) >100,000 CFU/ml Normal [facility] Comment on above: Performed By: #### C _URI ####[place] [address] Hemogram/Diffon 08-17-2018 Abs. Baso 0.04 thou/cmm Normal 0.00-0.08 [facility] Comment on above: Performed By: #### L CBCD ####[place] [address] Abs. Gilliam 0.54 thou/cmm Normal 0.20-1.00 [facility] Comment on above: Performed By: #### L CBCD ####[place] [address] Abs. Neut (ANC) 3.98 thou/cmm Normal 3.00-5.67 [facility] Comment on above: Performed By: #### L CBCD ####[place] [address] Basophils/100 WBC Auto (Bld) 0.7 % Normal [facility] Comment on above: Performed By: #### L CBCD ####[place] [address] Eosinophils Auto #/vol (Bld) 0.05 thou/cmm Normal 0.00-0.41 [facility] Comment on above: Performed By: #### L CBCD ####[address] [address] Eosinophils/100 WBC Auto (Bld) 0.9 % Normal [facility] Comment on above: Performed By: #### L CBCD ####[address] [address] Erythrocyte distribution width Auto Ratio (RBC) 12.0 % Normal 11.5-15.9 [facility] Comment on above: Performed By: #### L CBCD ####[address] [address] Hematocrit Auto Volume Fraction (Bld) 35.6 % Low 37.0-47.0 [facility] Comment on above: Performed By: #### L CBCD ####[address] [address] Hemoglobin mass conc (Bld) 11.3 g/dL Low 12.0-16.0 [facility] Comment on above: Performed By: #### L CBCD ####[address] [address] Lymphocytes Auto #/vol (Bld) 1.19 thou/cmm Low 1.50-3.65 [facility] Comment on above: Performed By: #### L CBCD ####[address] [address] Lymphocytes/100 WBC Auto (Bld) 20.6 % Normal [facility] Comment on above: Performed By: #### L CBCD ####[address] [address] MCH Auto Entitic mass (RBC) 30.2 pg Normal 27.0-31.0 [facility] Comment on above: Performed By: #### L CBCD ####[address] [address] MCHC Auto mass conc (RBC) 31.7 % Low 32.0-36.0 [facility] Comment on above: Performed By: #### L CBCD ####[address] [address] MCV Auto Entitic volume (RBC) 95.2 fL Normal 81.0-99.0 [facility] Comment on above: Performed By: #### L CBCD ####[place] [address] Monocytes/100 WBC Auto (Bld) 9.3 % Normal [facility] Comment on above: Performed By: #### L CBCD ####[place] [address] Platelet mean volume Auto Entitic volume (Bld) 9.5 fL Normal 7.1-10.5 [facility] Comment on above: Performed By: #### L CBCD ####[place] [address] Platelets Auto #/vol (Bld) 237 thou/cmm Normal 150-400 [facility] Comment on above: Performed By: #### L CBCD ####[place] [address] RBC Auto #/vol (Bld) 3.74 mil/cmm Low 4.20-5.40 [facility] Comment on above: Performed By: #### L CBCD ####[place] [address] Seg Neutrophil 68.5 % Normal [facility] Comment on above: Performed By: #### L CBCD ####[place] [address] WBC Auto #/vol (Bld) 5.8 thou/cmm Normal 4.8-10.8 [facility] Comment on above: Performed By: #### L CBCD ####[place] [address] Troponin Ion 08-17-2018 Troponin I.cardiac mass conc ng/mL Normal <=0.07 [facility] Comment on above: Performed By: #### L TRP ####[place] [address] Urinalysis Routineon 018 Appearance Nom (U) CLEAR Normal [facility] Comment on above: Performed By: #### L URIN ####[place] [address] Bacteria LM.HPF #/area (Urine sed) MANY Abnormal None [facility] Comment on above: Performed By: #### L URIN ####[place] [address] Bilirubin Urine Negative Normal Negative [facility] Comment on above: Performed By: #### L URIN ####[place] [address] Color Nom (U) YELLOW Normal [facility] Comment on above: Performed By: #### L URIN ####[place] [address] Ep Cells Urine 0-2 Normal 0-5 [facility] Comment on above: Performed By: #### L URIN ####[place] [address] Glucose Ql (U) Negative Normal Negative [facility] Comment on above: Performed By: #### L URIN ####[place] [address] Hemoglobin,Urine TRACE-INTACT Abnormal Negative [facility] Comment on above: Performed By: #### L URIN ####[place] [address] Ketone Urine Negative Normal Negative [facility] Comment on above: Performed By: #### L URIN ####[place] [address] Leukocytes Esterase Negative Normal Negative [facility] Comment on above: Performed By: #### L URIN ####[place] [address] Nitrites Urine Positive Abnormal Negative [facility] Comment on above: Performed By: #### L URIN ####[place] [address] pH Test strip (U) 5.5 [pH] Normal 5.0-8.0 [facility] Comment on above: Performed By: #### L URIN ####[place] [address] Protein Urine 1+ Abnormal Negative [facility] Comment on above: Performed By: #### L URIN ####[place] [address] RBC LM.HPF #/area (Urine sed) 0-3 Normal 0-3 [facility] Comment on above: Performed By: #### L URIN ####[place] [address] Specific [place], Ur 1.020 Normal 1.005-1.030 [facility] Comment on above: Performed By: #### L URIN ####[place] [address] Urobilinogen,Ur 0.2 EU/dL Normal 0.0-1.0 [facility] Comment on above: Performed By: #### L URIN ####[place] [address] WBC LM.HPF #/area (Urine sed) 1-3 Normal 0-5 [facility] Comment on above: Performed By: #### L URIN ####[place] [address] C Urineon 08-15-2018 C Urine Final Report: >100,000 cfu/ml Pseudomonas aeruginosa ORGANISM: PA SUSCEPTIBILITY RESULTS Antibiotic CRYSTAL Dilutn CRYSTAL Interp ORGANISM: PA Ceftaz : <=1 S Cipro : <=1 S Gent : <=4 S Levo : <=2 S Hardeep : <=1 S Pip/Jj : <=16 S Tobra : <=4 S Normal [facility] Comment on above: Performed By: #### 2 [id number] ####[facility] Microbiology [address] [place] [address] Auto Diffon 08-12-2018 Basophils (Bld) [#/Vol] 0.1 E3/mcL Normal 0.0-0.2 [facility] Comment on above: Order Comment: Order Added by Discern Expert. Performed By: #### 2 200820 #### [facility] RemHemo [address] [place] [address] Basophils/100 WBC (Bld) 1.1 % Normal 0.0-2.0 [facility] Comment on above: Order Comment: Order Added by Discern Expert. Performed By: #### 2 632151 #### [facility] RemHemo [address] [place] [address] Eos Absolute 0.1 E3/mcL Normal 0.0-0.7 [facility] Comment on above: Order Comment: Order Added by Discern Expert. Performed By: #### 2 945902 #### [place] RemHemo [address] [place] [address] Eosinophils/100 WBC (Bld) 1.0 % Normal 0.0-11.0 [facility] Comment on above: Order Comment: Order Added by Discern Expert. Performed By: #### 2 [id number] #### [place] RemHemo [address] [place] [address] Lymphocytes (Bld) [#/Vol] 1.3 E3/mcL Normal 1.2-3.4 [facility] Comment on above: Order Comment: Order Added by Discern Expert. Performed By: #### 2 946405 #### [place] RemHemo [address] [place] [address] Lymphocytes/100 WBC (Bld) 18.9 % Low 20.0-55.0 [facility] Comment on above: Order Comment: Order Added by Discern Expert. Performed By: #### 2 139634 #### [place] RemHemo [address] [place] [address] Gilliam Absolute 0.6 E3/mcL Normal 0.0-0.7 [facility] Comment on above: Order Comment: Order Added by Discern Expert. Performed By: #### 2 [id number] #### [place] RemHemo [address] [place] [address] Monocytes/100 WBC (Bld) 8.1 % Normal 0.0-10.0 [facility] Comment on above: Order Comment: Order Added by Discern Expert. Performed By: #### 2 [id number] #### [place] RemHemo [address] [place] [address] Neutro Absolute 4.9 E3/mcL Normal 1.4-6.5 [facility] Comment on above: Order Comment: Order Added by Discern Expert. Performed By: #### 2 178107 #### [place] RemHemo [address] [place] [address] Neutro Auto 70.9 % Normal 37.0-75.0 [facility] Comment on above: Order Comment: Order Added by Discern Expert. Performed By: #### 2 [id number] #### [place] RemHemo [address] [place] [address] BMPon 08-12-2018 Anion gap [Moles/Vol] 12 mmol/L Normal 10-20 [facility] Comment on above: Performed By: #### 2 216352 #### [place] RemChem [address] [place] [address] Calcium [Mass/Vol] 9.1 mg/dL Normal 8.6-10.3 [facility] Comment on above: Performed By: #### 2 [id number] #### [place] RemChem [address] [place] [address] Chloride [Moles/Vol] 109 mmol/L High 98-107 [facility] Comment on above: Performed By: #### 2 834582 #### [place] RemChem [address] [place] [address] CO2 [Moles/Vol] 25.0 mmol/L Normal 21.0-32.0 [facility] Comment on above: Performed By: #### 2 924989 #### [facility] RemChem [address] [place] [address] Creatinine [Mass/Vol] 0.6 mg/dL Normal 0.5-1.1 [facility] Comment on above: Performed By: #### 2 198308 #### [facility] RemChem [address] [place] [address] Glucose [Mass/Vol] 108 mg/dL High 70-99 [facility] Comment on above: Performed By: #### 2 737466 #### [facility] RemChem [address] [place] [address] Potassium [Moles/Vol] 3.7 mmol/L Normal 3.5-5.3 [facility] Comment on above: Performed By: #### 2 905173 #### [facility] RemChem [address] [place] [address] Sodium [Moles/Vol] 142 mmol/L Normal 136-145 [facility] Comment on above: Performed By: #### 2 413482 #### [facility] RemChem [address] [place] [address] Urea nitrogen [Mass/Vol] 15 mg/dL Normal 6-23 [facility] Comment on above: Performed By: #### 2 [id number] #### [facility] RemChem [address] [place] [address] Urea nitrogen/Creatinine [Mass ratio] 25.0 ratio Normal 5.4-30.0 [facility] Comment on above: Performed By: #### 2 [id number] #### [facility] RemChem [facility] [place] [address] CBC w/ Auto Diffon 8 Erythrocyte distribution width (RBC) [Ratio] 12.5 % Normal 11.5-14.5 [facility] Comment on above: Performed By: #### 2 443346 #### [place] RemHemo [address] [place] [address] Hematocrit (Bld) [Volume fraction] 33.7 % Low 36.0-48.0 [facility] Comment on above: Performed By: #### 2 924836 #### [place] RemHemo [address] [place] [address] Hemoglobin (Bld) [Mass/Vol] 11.0 g/dL Low 12.0-16.0 [facility] Comment on above: Performed By: #### 2 973251 #### [place] RemHemo [address] [place] [address] MCH (RBC) [Entitic mass] 30.6 pg Normal 27.0-31.0 [facility] Comment on above: Performed By: #### 2 [id number] #### [place] RemHemo [address] [place] [address] MCHC (RBC) [Mass/Vol] 32.6 g/dL Low 33.0-37.0 [facility] Comment on above: Performed By: #### 2 076599 #### [place] RemHemo [address] [place] [address] MCV (RBC) [Entitic vol] 93.7 fL Normal 78.0-100.0 [facility] Comment on above: Performed By: #### 2 [id number] #### PEYTON LomasHemo [address] [place] [address] Platelet mean volume (Bld) [Entitic vol] 7.3 fL Low 7.4-11.0 [facility] Comment on above: Performed By: #### 2 408993 #### [facility] RemHemo [address] [place] [address] Platelets (Bld) [#/Vol] 211 E3/mcL Normal 130-400 [facility] Comment on above: Performed By: #### 2 [id number] #### PEY[facility] LomasHemo [address] [place] [address] RBC (Bld) [#/Vol] 3.60 E6/mcL Low 3.90-5.40 [facility] Comment on above: Performed By: #### 2 [id number] #### PE[facility]TON LomasHemo [facility] [place] [address] WBC (Bld) [#/Vol] 6.9 E3/mcL Normal 3.6-11.0 [facility] Comment on above: Performed By: #### 2 [id number] #### PE[facility]TON LomasHemo [facility] [place] [address] CT Head or Brain w/o Contras ton 08-12-2018 CT Head or Brain w/o Contrast Exam Date/Time: 08/12/2018 04:29 EST Reason for Exam: Altered mental status Addendum ADDENDUM: As discussed with the attending physician, in addition to the bifrontal intraparenchymal hematomas, there is a very subtle small right frontal subdural hematoma measuring 1-2 mm. FINAL REPORT Dictated: 08/12/2018 6:25 am Gregory Berry DO Signed (Electronic Signature): 08/12/2018 6:25 am Signed by: Gregory Berry DO Technologist: DENNY Report STUDY: CT Head or Brain w/o Contrast; CT Spine Cervical w/o Contrast; 08/12/2018 4:29 am; 08/12/2018 4:37 am INDICATION: Altered mental status; Trauma. COMPARISON: None. ACCESSION NUMBER(S): [id number]; [id number] ORDERING CLINICIAN: Winter Beltre TECHNIQUE: Noncontrast axial CT scan of head was performed. Angled reformats in brain and bone windows were generated. The images were reviewed in bone, brain, blood and soft tissue windows. FINDINGS: CT brain: Diffuse supratentorial/infrat entorial cortical atrophy Intraparenchymal contusions bilateral frontal lobes greater on the right side Supratentorial nonspecific white matter changes Thinning corpus callosum No lisa cerebellar tonsillar ectopia. Calcification bilateral basal ganglia Exam Date/Time: 08/12/2018 04:29 EST Report Posterior fossa bone artifact however 4th ventricle is midline/not effaced. Likely cerumen involving right and left external auditory canal. Bilateral mastoid antrum well aerated. Bilateral globes are intact without ocular proptosis. Pterygoid plates are maintained No depressed calvarial fracture. CT cervical spine: Dextrocurvature versus torticollis of the cervical spine. Normal cervical lordosis Osseous degenerative changes most pronounced at C5-C6 C7. Right uncovertebral joint spurring at C5-C6. Loss of disc height at C5-C6 and C6-C7. No osseous fragmentation or measurable anterolisthesis Osseous demineralization, correlate if history of anemia and/or hematopoietic disorder. Posterior spurring with mild right foraminal encroachment at C3-C4. Mild left foraminal encroachment with facet degenerative changes at C4-C5. Hard disc lateralizing to the right paracentral/right foraminal distribution with moderate right foraminal encroachment and no overt central spinal canal stenosis at C5-C6 . C6-C7: No compressive central disc herniation or overt spinal canal stenosis. Limited intraspinal canal content evaluation Mild heterogeneity of thyroid gland which may relate to benign colloid type cysts and/or papillary or follicular type lesions Limited imaging of the upper chest demonstrates airspace disease, spiculated pulmonary nodule measuring 7.0 mm x approximately 18.4 mm, as visualized. Incomplete esophageal distension. IMPRESSION: Bifrontal intraparenchymal contusions greater on the right side Cervical spine degenerative changes/osseous demineralization Heterogeneity thyroid gland Spiculated nodule right upper lung, recommend baseline chest CT. Exam Date/Time: 08/12/2018 04:[address] Berry discussed case with Dr. Beltre on this date at 0550 hours FINAL REPORT Dictated: 08/12/2018 5:51 am Gregory Berry DO Signed (Electronic Signature): 08/12/2018 5:51 am Signed by: Gregory Berry DO Technologist: DENNY Report last revised on 08/12/2018 06:25 EST by Gregory Berry DO [facility] CT Spine Cervical w/o Contra ston 08-12-2018 CT Spine Cervical w/o Contrast Exam Date/Time: 08/12/2018 04:37 EST Reason for Exam: Trauma Addendum ADDENDUM: As discussed with the attending physician, in addition to the bifrontal intraparenchymal hematomas, there is a very subtle small right frontal subdural hematoma measuring 1-2 mm. FINAL REPORT Dictated: 08/12/2018 6:25 am Gregory Berry DO Signed (Electronic Signature): 08/12/2018 6:25 am Signed by: Gregory Berry DO Technologist: JLG Report STUDY: CT Head or Brain w/o Contrast; CT Spine Cervical w/o Contrast; 08/12/2018 4:29 am; 08/12/2018 4:37 am INDICATION: Altered mental status; Trauma. COMPARISON: None. ACCESSION NUMBER(S): [id number]; [id number] ORDERING CLINICIAN: Winter Beltre TECHNIQUE: Noncontrast axial CT scan of head was performed. Angled reformats in brain and bone windows were generated. The images were reviewed in bone, brain, blood and soft tissue windows. FINDINGS: CT brain: Diffuse supratentorial/infrat entorial cortical atrophy Intraparenchymal contusions bilateral frontal lobes greater on the right side Supratentorial nonspecific white matter changes Thinning corpus callosum No lisa cerebellar tonsillar ectopia. Calcification bilateral basal ganglia Exam Date/Time: 08/12/2018 04:37 EST Report Posterior fossa bone artifact however 4th ventricle is midline/not effaced. Likely cerumen involving right and left external auditory canal. Bilateral mastoid antrum well aerated. Bilateral globes are intact without ocular proptosis. Pterygoid plates are maintained No depressed calvarial fracture. CT cervical spine: Dextrocurvature versus torticollis of the cervical spine. Normal cervical lordosis Osseous degenerative changes most pronounced at C5-C6 C7. Right uncovertebral joint spurring at C5-C6. Loss of disc height at C5-C6 and C6-C7. No osseous fragmentation or measurable anterolisthesis Osseous demineralization, correlate if history of anemia and/or hematopoietic disorder. Posterior spurring with mild right foraminal encroachment at C3-C4. Mild left foraminal encroachment with facet degenerative changes at C4-C5. Hard disc lateralizing to the right paracentral/right foraminal distribution with moderate right foraminal encroachment and no overt central spinal canal stenosis at C5-C6 . C6-C7: No compressive central disc herniation or overt spinal canal stenosis. Limited intraspinal canal content evaluation Mild heterogeneity of thyroid gland which may relate to benign colloid type cysts and/or papillary or follicular type lesions Limited imaging of the upper chest demonstrates airspace disease, spiculated pulmonary nodule measuring 7.0 mm x approximately 18.4 mm, as visualized. Incomplete esophageal distension. IMPRESSION: Bifrontal intraparenchymal contusions greater on the right side Cervical spine degenerative changes/osseous demineralization Heterogeneity thyroid gland Spiculated nodule right upper lung, recommend baseline chest CT. Exam Date/Time: 08/12/2018 04:[address] Berry discussed case with Dr. Beltre on this date at 0550 hours FINAL REPORT Dictated: 08/12/2018 5:51 am Gregory Berry DO Signed (Electronic Signature): 08/12/2018 5:51 am Signed by: Gregory Berry DO Technologist: [facility] Report last revised on 08/12/2018 06:25 EST by Gregory Berry DO Normal [facility] Hep Func Panelon 08-12-2018 Albumin [Mass/Vol] 4.1 g/dL Normal 3.4-5.0 [facility] Comment on above: Performed By: #### 2 [id number] ####[facility] [address] [place] [address] Albumin/Globulin [Mass ratio] 2.0 {ratio} High 1.1-1.9 [facility] Comment on above: Performed By: #### 2 [id number] ####[facility] [address] [place] [address] Alk Phos 66 Int._Unit/L Normal 33-136 [facility] Comment on above: Performed By: #### 2 [id number] ####[facility] [address] [place] [address] ALT [Catalytic activity/Vol] 17 Int._Unit/L Normal 7-45 [facility] Comment on above: Performed By: #### 2 [id number] ####[facility] [address] [place] [address] AST [Catalytic activity/Vol] 22 Int._Unit/L Normal 9-39 [facility] Comment on above: Performed By: #### 2 [id number] ####[facility] [address] [place] [address] Bili Direct 0.07 mg/dL Normal 0.00-0.30 [facility] Comment on above: Performed By: #### 2 [id number] ####[facility] [address]tnr[address] [place] [address] Bili Indirect 0.22 mg/dL Normal [facility] Comment on above: Result Comment: No e stablished ranges available for the indirect bilirubin Performed By: #### 2 [id number] ####[facility] [address] [place] [address] Bili Total 0.29 mg/dL Normal 0.00-1.20 [facility] Comment on above: Performed By: #### 2 [id number] ####[facility] [address] [place] [address] Globulin (S) [Mass/Vol] 2.0 g/dL Normal 2.0-4.0 [facility] Comment on above: Performed By: #### 2 [id number] ####[facility] [address] [place] [address] Protein [Mass/Vol] 6.2 g/dL Low 6.4-8.2 [facility] Comment on above: Performed By: #### 2 [id number] ####[facility] [address] [place] [address] Lactic Acidon 08-12-2018 Lactate [Moles/Vol] 2.1 mmol/L High 0.4-2.0 [facility] Comment on above: Performed By: #### 2 [id number] ####[facility] [address] [place] [address] PTon 08-12-2018 INR Coag (PPP) [Relative time] 1.0 {INR} Normal 1.0-1.2 [facility] Comment on above: Result Comment: INR Recommended Therapeuptic Ranges: Prophylaxis/treatment of DVT and PE?2.0-3.0 Prevention of systemic embolism?.2.0-3.0 Mechanical prosthetic values?2.5-3.5 CRITICAL VALUES?.>4.0 Performed By: #### 2 [id number] #### [facility] [address] [place] [address] PT Coag (PPP) [Time] 12.6 second(s) Normal 11.6-14.6 [facility] Comment on above: Performed By: #### 2 [id number] #### [facility] [address] [place] [address] PTTon 08-12-2018 aPTT Coag (Bld) [Time] 24.9 second(s) Normal 23.2-36.4 [facility] Comment on above: Performed By: #### 2 [id number] #### [facility] [address] [place] [address] PTT Control Ratioon 08-12-20 18 PTT Ratio 0.8 ratio Normal 0.8-1.2 [facility] Comment on above: Order Comment: Order added by Discern Expert. Performed By: #### 8 [id number] #### [facility] [address] [place], [place] [id number] Troponin-Ion 08-12-2018 Troponin I.cardiac [Mass/Vol] ng/mL Normal .00-.03 [facility] Comment on above: Performed By: #### 2 [id number] #### [facility] [address]emo [address] [place] [address] UA Completeon 08-12-2018 Color (U) Yellow Normal Yellow [facility] Comment on above: Order Comment: Strai ght Cath as needed Performed By: #### 8 [id number] ####[facility] Urinalysis Automated [address] [place] [id number] Glucose (U) [Mass/Vol] Negative Normal Negative [facility] Comment on above: Order Comment: Strai ght Cath as needed Performed By: #### 8 [id number] ####[facility] [address] [place] [address] Ketones Ql (U) Negative Normal Negative [facility] Comment on above: Order Comment: Strai ght Cath as needed Performed By: #### 8 [id number] ####[facility] [address] [place] [address] RBC (U) [#/Vol] 3-5 Abnormal 0-3 [facility] Comment on above: Order Comment: Strai ght Cath as needed Performed By: #### 8 [id number] ####[facility] [address] [place] [address] UA Blood 1+ Abnormal Negative [facility] Comment on above: Order Comment: Strai ght Cath as needed Performed By: #### 8 [id number] ####[facility] [address] [place] [address] UA Bacteria Trace Abnormal None [facility] Comment on above: Order Comment: Strai ght Cath as needed Performed By: #### 8 [id number] ####[facility] [address] [place] [address] UA Clarity Clear Normal Clear [facility] Comment on above: Order Comment: Strai ght Cath as needed Performed By: #### 8 [id number] ####[facility] [address] [place] [address] UA Leuk Est 3+ Abnormal Negative [facility] Comment on above: Order Comment: Strai ght Cath as needed Performed By: #### 8 [id number] ####[facility] [address] [place] [address] UA Nitrite Negative Normal Negative [facility] Comment on above: Order Comment: Strai ght Cath as needed Performed By: #### 8 [id number] ####[facility] [address] [place] [address] UA pH 5.0 Normal 4.6-8.0 [facility] Comment on above: Order Comment: Strai ght Cath as needed Performed By: #### 8 [id number] ####[facility] [address] [place] [address] UA Protein Negative Normal Negative [facility] Comment on above: Order Comment: Strai ght Cath as needed Performed By: #### 8 [id number] ####[facility] [address] UA Spec Grav 1.013 Normal 1.003-1.030 [facility] Comment on above: Order Comment: Strai ght Cath as needed Performed By: #### 8 [id number] ####[facility] [address] [place] [address] UA Squam Epithelial 0-5 Normal 0-5 [facility] Comment on above: Order Comment: Strai ght Cath as needed Performed By: #### 8 [id number] ####[facility]inal[facility] [address] [place] [address] UA Transitional Epithelial 0-2 Normal 0-2 [facility] Comment on above: Order Comment: Strai ght Cath as needed Performed By: #### 8 [id number] ####[facility] [address] [place] [address] UA Urobilinogen Negative Normal [facility] Comment on above: Order Comment: Strai ght Cath as needed Result Comment: Due to a manufacturing issue, low positive urobilinogen results may be fasely positive. Correlate with urine bilirubin and additional clinical/laboratory findings to assess the risk of hemolytic anemia or liver disease. If clinically indicated, repeat testing with an alternate method is available by contacting the laboratory within 24 hours. Performed By: #### 8 [id number] ####[facility] [address] [place] [address] UA WBC 10-20 Abnormal 0-5 [facility] Comment on above: Order Comment: Strai ght Cath as needed Performed By: #### 8 [id number] ####[facility]inalysis [facility] [address] [place] [id number] Urobilinogen Qn (U) Negative Normal Negative [facility] Comment on above: Order Comment: Strai ght Cath as needed Performed By: #### 8 [id number] ####[facility] [address] [place] [id number] eGFRon 08-12-2018 GFR/1.73 sq M predicted among non-blacks MDRD (S/P/Bld) [Vol rate/Area] mL/min/{1.73_m2} Normal [facility] Comment on above: Order Comment: Order added by Discern Expert. Performed By: #### 1 [id number] ####[facility] [address] [place] [id number] XR Ankle 3+ Views Righton XR Ankle 3+ Views Right Exam Date/Time: 06/13/2018 12:08 EDT Reason for Exam: Fall Report STUDY: XR Ankle 3+ Views Right; 06/13/2018 12:08 pm INDICATION: Fall. COMPARISON: None. ACCESSION NUMBER(S): [id number] ORDERING CLINICIAN: Milton Orosco FINDINGS: The lateral and medial malleoli are intact. The ankle mortise is normal in width. The talus and calcaneus are intact. No calcaneal spur is seen. There is no plantar calcification. A mild swelling is present over the lateral malleolus. IMPRESSION: No fracture or dislocation. Mild swelling over the lateral malleolus. FINAL REPORT Dictated: 06/13/2018 12:35 pm Stiven Zurita MD Signed (Electronic Signature): 06/13/2018 12:35 pm Signed by: Stiven Zurita MD Technologist: TRD Normal [facility] COVID-19 virus antigen assay SARS-CoV-2 (COVID-19) Ag IA.rapid Ql (Resp) [facility] Work Phone: FUNDUS PHOTOS OU (BOTH EYES) [facility] Influenza virus A and B and SARS-CoV-2 (COVID-19) Ag panel - Upper respiratory specim SARS-CoV-2 (COVID-19) RNA NURYS+probe Ql (Resp) [facility] Work Phone: Laboratory - Microbiology an d Antimicrobial susceptibility Respiratory pathogens DNA and RNA 12b panel NURYS+probe (Unsp spec) [facility] Work Phone: Stool gastrointestinal hemog lobin detection by immunologic method Lower GI hemoglobin IA Ql (Stl) [facility] Work Phone: Vital Signs Date Time Vital Sign Value Performing Clinician Facility 02-13-2025 14:05-0400 Diastolic blood pressure 76 mm[Hg] Bahman Ann DO Work Phone: [facility] 02-13-2025 14:05-0400 Heart rate 72 /min Bahman Horacio DO Work Phone: [facility] 02-13-2025 14:05-0400 Respiratory rate 16 /min Bahman Ann DO Work Phone: [facility] 02-13-2025 14:05-0400 SaO2% (BldA) [Mass fraction] 96 % Bahman Ann DO Work Phone: [facility] 02-13-2025 14:05-0400 Systolic blood pressure 134 mm[Hg] Bahman Horacio DO Work Phone: [facility] 02-13-2025 12:15-0400 Body height 152.4 cm Bahman Ann DO Work Phone: [facility] 02-13-2025 12:15-0400 Body mass index (BMI) [Ratio] 19.53 kg/m2 Bahman Horacio DO Work Phone: [facility] 02-13-2025 12:15-0400 Body temperature 98.71 [degF] Bahman Horacio DO Work Phone: [facility] 02-13-2025 12:15-0400 Body weight 45.36 kg Bahman Ann DO Work Phone: [facility] 08-19-2024 13:42-0500 Diastolic blood pressure 84 mm[Hg] Terry Espino MD Work Phone: [facility] 08-19-2024 13:42-0500 Heart rate 93 /min Terry Espino MD Work Phone: [facility] 08-19-2024 13:42-0500 Respiratory rate 18 /min Terry Espino MD Work Phone: [facility] 08-19-2024 13:42-0500 SaO2% (BldA) [Mass fraction] 93 % Terry Espino MD Work Phone: [facility] 08-19-2024 13:42-0500 Systolic blood pressure 160 mm[Hg] Terry Espino MD Work Phone: [facility] 08-19-2024 12:06-0500 Body height 152.4 cm Terry Espino MD Work Phone: [facility] 08-19-2024 12:06-0500 Body mass index (BMI) [Ratio] 20.51 kg/m2 Terry Espino MD Work Phone: [facility] 08-19-2024 12:06-0500 Body temperature 98.01 [degF] Terry Espino MD Work Phone: [facility] 08-19-2024 12:06-0500 Body weight 47.63 kg Terry Espino MD Work Phone: [facility] 08-17-2024 14:31-0500 Body height 152.4 cm Lindsey Crisostomo APRN-ART PREPARATOR Work Phone: [facility] 08-17-2024 14:31-0500 Body mass index (BMI) [Ratio] 20.51 kg/m2 Lindsey Crisostomo APRN-ART PREPARATOR Work Phone: [facility] 08-17-2024 14:31-0500 Body temperature 98.01 [degF] Lindsey Crisostomo APARTMENT MAINTENANCE MANAGER-ART PREPARATOR Work Phone: [phone](726)[phone] [place] [address] 08-17-2024 14:31-0500 Body weight 47.63 kg Lindsey Crisostomo APARTMENT MAINTENANCE MANAGER-ART PREPARATOR Work Phone: 2(919)[phone] [place] [address] 08-17-2024 14:31-0500 Diastolic blood pressure 82 mm[Hg] Lindsey Crisostomo APARTMENT MAINTENANCE MANAGER-ART PREPARATOR Work Phone: 4(769)[phone] [place] [address] 08-17-2024 14:31-0500 Heart rate 81 /min Lindsey Crisostomo APARTMENT MAINTENANCE MANAGER-ART PREPARATOR Work Phone: 8(153)[phone] [place] [address] 08-17-2024 14:31-0500 Respiratory rate 14 /min Lindsey Crisostomo APARTMENT MAINTENANCE MANAGER-ART PREPARATOR Work Phone: 6(294)165-511429 [place] [address] 08-17-2024 14:31-0500 SaO2% (BldA) [Mass fraction] 94 % Lindsey Crisostomo APARTMENT MAINTENANCE MANAGER-ART PREPARATOR Work Phone: [phone](519)[phone] [place] [address] 08-17-2024 14:31-0500 Systolic blood pressure 164 mm[Hg] Lindsey Crisostomo APARTMENT MAINTENANCE MANAGER-ART PREPARATOR Work Phone: 2(120)[phone] [place] [address] 08-08-2024 13:11-0500 Body height 152.4 cm Lindsey Crisostomo APARTMENT MAINTENANCE MANAGER-ART PREPARATOR Work Phone: 1(180)[phone] [place] [address] 08-08-2024 13:11-0500 Body mass index (BMI) [Ratio] 21.09 kg/m2 Lindsey Crisostomo APARTMENT MAINTENANCE MANAGER-ART PREPARATOR Work Phone: 8(460)[phone] [place] [address] 08-08-2024 13:11-0500 Body temperature 98.01 [degF] Lindsey Crisostomo APARTMENT MAINTENANCE MANAGER-ART PREPARATOR Work Phone: 3(629)[phone] [place] [address] 08-08-2024 13:11-0500 Body weight 48.99 kg Lindsey Crisostomo APARTMENT MAINTENANCE MANAGER-ART PREPARATOR Work Phone: [phone](617)[phone] [place] [address] 08-08-2024 13:11-0500 Diastolic blood pressure 66 mm[Hg] Lindsey Crisostomo APARTMENT MAINTENANCE MANAGER-ART PREPARATOR Work Phone: [facility] 08-08-2024 13:11-0500 Heart rate 79 /min Lindsey Crisostomo APARTMENT MAINTENANCE MANAGER-ART PREPARATOR Work Phone: [facility] 08-08-2024 13:11-0500 Respiratory rate 18 /min Lindsey Mosesey APARTMENT MAINTENANCE MANAGER-ART PREPARATOR Work Phone: [facility] 08-08-2024 13:11-0500 SaO2% (BldA) [Mass fraction] 98 % Lindsey Crisostomo APARTMENT MAINTENANCE MANAGER-ART PREPARATOR Work Phone: [facility] 08-08-2024 13:11-0500 Systolic blood pressure 153 mm[Hg] Lindsey Crisostomo APARTMENT MAINTENANCE MANAGER-ART PREPARATOR Work Phone: [facility] 02-25-2024 18:00-0400 Diastolic blood pressure 87 mm[Hg] Bahman Downschristina DO Work Phone: [facility] 02-25-2024 18:00-0400 Heart rate 77 /min Bahman Downschristina DO Work Phone: [facility] 02-25-2024 18:00-0400 Respiratory rate 17 /min Bahman Downschristina DO Work Phone: [facility] 02-25-2024 18:00-0400 SaO2% (BldA) [Mass fraction] 94 % Bahman Downschristina DO Work Phone: [facility] 02-25-2024 18:00-0400 Systolic blood pressure 167 mm[Hg] Bahman Lemasters DO Work Phone: [facility] 02-25-2024 13:01-0400 Body height 152.4 cm Bahman Downschristina DO Work Phone: [facility] 02-25-2024 13:01-0400 Body mass index (BMI) [Ratio] 19.92 kg/m2 Bahman Ann DO Work Phone: [facility] 02-25-2024 13:01-0400 Body temperature 97.81 [degF] Bahman Ann DO Work Phone: [facility] 02-25-2024 13:01-0400 Body weight 46.27 kg Bahman Ann DO Work Phone: [facility] 02-17-2024 08:55-0400 Body mass index (BMI) [Ratio] 20.11 kg/m2 Terry Espino MD Work Phone: [facility] 02-17-2024 08:55-0400 Body temperature 97 [degF] Terry Espino MD Work Phone: [facility] 02-17-2024 08:55-0400 Body weight 46.7 kg Terry Espino MD Work Phone: [facility] 02-17-2024 08:55-0400 Diastolic blood pressure 79 mm[Hg] Terry Espino MD Work Phone: [facility] 02-17-2024 08:55-0400 Heart rate 106 /min Terry Espino MD Work Phone: [facility] 02-17-2024 08:55-0400 Respiratory rate 18 /min Terry Espino MD Work Phone: [facility] 02-17-2024 08:55-0400 SaO2% (BldA) [Mass fraction] 95 % Terry Espino MD Work Phone: [facility] 02-17-2024 08:55-0400 Systolic blood pressure 144 mm[Hg] Terry Espino MD Work Phone: [facility] 02-09-2024 15:08-0400 Diastolic blood pressure 83 mm[Hg] Franklin Salmon MD Work Phone: [facility] 02-09-2024 15:08-0400 Systolic blood pressure 128 mm[Hg] Franklin Salmon MD Work Phone: [facility] 12-27-2023 14:33-0400 Body height 152.4 cm Pacc 1 Work Phone: [facility] 12-27-2023 14:33-0400 Body mass index (BMI) [Ratio] 20.31 kg/m2 Pacc 1 Work Phone: [facility] 12-27-2023 14:33-0400 Body temperature 98.91 [degF] Pacc 1 Work Phone: [facility] 12-27-2023 14:33-0400 Body weight 47.17 kg Pacc 1 Work Phone: [facility] 12-27-2023 14:33-0400 Diastolic blood pressure 70 mm[Hg] Pacc 1 Work Phone: [facility] 12-27-2023 14:33-0400 Heart rate 69 /min Pacc 1 Work Phone: [facility] 12-27-2023 14:33-0400 Respiratory rate 14 /min Pacc 1 Work Phone: [facility] 12-27-2023 14:33-0400 SaO2% (BldA) [Mass fraction] 98 % Pacc 1 Work Phone: [facility] 12-27-2023 14:33-0400 Systolic blood pressure 128 mm[Hg] Pacc 1 Work Phone: [facility] 12-13-2023 11:09-0400 Body mass index (BMI) [Ratio] 20.02 kg/m2 Terry Espino MD Work Phone: [facility] 12-13-2023 11:09-0400 Body temperature 97.3 [degF] Terry Espino MD Work Phone: [facility] 12-13-2023 11:09-0400 Body weight 46.5 kg Terry Espino MD Work Phone: [facility] 12-13-2023 11:09-0400 Diastolic blood pressure 82 mm[Hg] Terry Espino MD Work Phone: [facility] 12-13-2023 11:09-0400 Heart rate 90 /min Terry Espino MD Work Phone: [facility] 12-13-2023 11:09-0400 Respiratory rate 18 /min Terry Espino MD Work Phone: [facility] 12-13-2023 11:09-0400 SaO2% (BldA) [Mass fraction] 93 % Terry Espino MD Work Phone: [facility] 12-13-2023 11:09040 Systolic blood pressure 126 mm[Hg] Terry Espino MD Work Phone: [facility] 11-18-2023 13:39-0400 Body height 152.4 cm Franklin Salmon MD Work Phone: [facility] 11-18-2023 13:39-0400 Body weight 48.26 kg Franklin Salmon MD Work Phone: [facility] 10-06-2023 10:13-0500 Body height 152.4 cm Franklin Salmon MD Work Phone: [facility] 10-06-2023 10:13-0500 Body weight 49.4 kg Franklin Salmon MD Work Phone: [facility] 10-06-2023 10:13-0500 Diastolic blood pressure 80 mm[Hg] Franklin Salmon MD Work Phone: [facility] 10-06-2023 10:13-0500 Systolic blood pressure 143 mm[Hg] Franklin Salmon MD Work Phone: [facility] 07-09-2023 09:24-0500 Body temperature 99.1 [degF] Dr. Bernardino Min Work Phone: [facility] 07-09-2023 09:24-0500 Diastolic blood pressure 72 mm[Hg] Dr. Bernardino Min Work Phone: [facility] 07-09-2023 09:24-0500 Heart rate 88 /min Dr. Bernardino Min Work Phone: [facility] 07-09-2023 09:24-0500 Respiratory rate 17 /min Dr. Bernardino Min Work Phone: [facility] 07-09-2023 09:24-0500 SaO2% (BldA) [Mass fraction] 91 % Dr. Bernardino Min Work Phone: [facility] 07-09-2023 09:24-0500 Systolic blood pressure 144 mm[Hg] Dr. Bernardino Min Work Phone: 7(312)307-577141 [place] [address] 07-07-2023 11:43-0500 Body height 152.[address] Bernardino Min Work Phone: 1(930)[phone] [place] [address] 07-07-2023 11:43-0500 Body weight 50.[address] Bernardino Min Work Phone: 6(964)795-938426 [place] [address] 07-06-2023 10:17-0500 Body mass index (BMI) [Ratio] 21.6 kg/m2 Dr. Bernardino Min Work Phone: 8(889)779-135626 [place] [address] 06-29-2023 11:49-0400 Body temperature 98.2 [degF] Dr. Bernardino Min Work Phone: 9(856)065-987726 [place] [address] 06-29-2023 11:49-0400 Diastolic blood pressure 70 mm[Hg] Dr. Bernardino Min Work Phone: 6(736)456-168541 [place] [address] 06-29-2023 11:49-0400 Heart rate 88 /min Dr. Bernardino Min Work Phone: 4(864)686-359741 [place] [address] 06-29-2023 11:49-0400 Respiratory rate 18 /min Dr. Bernardino Min Work Phone: 3(953)500-287741 [place] [address] 06-29-2023 11:49-0400 SaO2% (BldA) [Mass fraction] 98 % Dr. Bernardino Min Work Phone: 1(867)[phone] [place] [address] 06-29-2023 11:49-0400 Systolic blood pressure 149 mm[Hg] Dr. Bernardino Min Work Phone: [facility] 06-27-2023 10:58-0400 Body height 152.[address] Bernardino Min Work Phone: [facility] 06-27-2023 10:58-0400 Body weight [address] Bernardino Min Work Phone: [facility] 06-27-2023 00:34-0400 Body mass index (BMI) [Ratio] 20.6 kg/m2 Dr. Bernardino Min Work Phone: [facility] 06-27-2023 00:00-0400 Body temperature 98.6 [degF] [facility] 06-27-2023 00:00-0400 Diastolic blood pressure 87 mm[Hg] [facility] 06-27-2023 00:00-0400 Heart rate 72 /min [facility] 06-27-2023 00:00-0400 Respiratory rate 18 /min [facility] 06-27-2023 00:00-0400 SaO2% (BldA) [Mass fraction] 94 % [facility] 06-27-2023 00:00-0400 Systolic blood pressure 172 mm[Hg] [facility] 06-26-2023 21:12-0400 Body mass index (BMI) [Ratio] 22.3 kg/m2 [facility] 06-26-2023 21:12-0400 Body weight 51.9 kg [facility] 06-26-2023 20:24-0400 Body height 152.4 cm [facility] 06-25-2023 13:29-0400 Body temperature 98.71 [degF] Lab[facility]Port Wstr Work Phone: [facility] 06-25-2023 13:29-0400 Diastolic blood pressure 68 mm[Hg] Lab[facility] Work Phone: [facility] 06-25-2023 13:29-0400 Heart rate 74 /min Lab[facility] Work Phone: [facility] 06-25-2023 13:29-0400 Systolic blood pressure 152 mm[Hg] Lab[facility] Work Phone: [facility] 06-11-2023 09:16-0400 Body temperature 97.81 [degF] Treatment Wstr Work Phone: [facility] 06-11-2023 09:16-0400 Body weight 48.76 kg Treatment Wstr Work Phone: [facility] 06-11-2023 09:16-0400 Diastolic blood pressure 84 mm[Hg] Treatment Wstr Work Phone: [facility] 06-11-2023 09:16-0400 Heart rate 83 /min Treatment Wstr Work Phone: [facility] 06-11-2023 09:16-0400 Respiratory rate 16 /min Treatment Wstr Work Phone: [facility] 06-11-2023 09:16-0400 SaO2% (BldA) [Mass fraction] 100 % Treatment Wstr Work Phone: [facility] 06-11-2023 09:16-0400 Systolic blood pressure 148 mm[Hg] Treatment Wstr Work Phone: [facility] 06-11-2023 09:14-0400 Body weight 48.76 kg Lab/Port [facility] Work Phone: [facility] 04-30-2023 11:15-0400 Body height 152.4 cm Malathi Roberts MD Work Phone: [facility] 04-30-2023 11:15-0400 Body temperature 97.81 [degF] Malathi Roberts MD Work Phone: [facility] 04-30-2023 11:15-0400 Body weight 49.17 kg Malathi Roberts MD Work Phone: [facility] 04-30-2023 11:15-0400 Diastolic blood pressure 75 mm[Hg] Malathi Roberts MD Work Phone: [facility] 04-30-2023 11:15-0400 Heart rate 114 /min Malathi Roberts MD Work Phone: [facility] 04-30-2023 11:15-0400 SaO2% (BldA) [Mass fraction] 97 % Malathi Roberts MD Work Phone: [facility] 04-30-2023 11:15-0400 Systolic blood pressure 128 mm[Hg] Malathi Roberts MD Work Phone: [facility] 04-13-2023 18:13-0400 Body height 152 cm Rosmery Ganta Other Phone: [facility] 04-13-2023 18:13-0400 Body temperature 97.34 [degF] Rosmery Ganta Other Phone: [facility] 04-13-2023 18:13-0400 Diastolic blood pressure 61 mm[Hg] Rosmery Ganta Other Phone: [facility] 04-13-2023 18:13-0400 Heart rate 66 /min Rosmery Ganta Other Phone: [facility] 04-13-2023 18:13-0400 Respiratory rate 14 /min Rosmery Ganta Other Phone: [facility] 04-13-2023 18:13-0400 SaO2% (BldA) [Mass fraction] 98 % Rosmery Ganta Other Phone: [facility] 04-13-2023 18:13-0400 Systolic blood pressure 136 mm[Hg] Rosmery Ganta Other Phone: [facility] 03-31-2023 09:46-0400 Body height 152.4 cm Malathi Roberts MD Work Phone: [facility] 03-31-2023 09:46-0400 Body temperature 97.9 [degF] Malathi Roberts MD Work Phone: [facility] 03-31-2023 09:46-0400 Body weight 48.53 kg Malathi Roberts MD Work Phone: [facility] 03-31-2023 09:46-0400 Diastolic blood pressure 82 mm[Hg] Malathi Roberts MD Work Phone: [facility] 03-31-2023 09:46-0400 Heart rate 84 /min Malathi Roberts MD Work Phone: [facility] 03-31-2023 09:46-0400 SaO2% (BldA) [Mass fraction] 96 % Malathi Roberts MD Work Phone: [facility] 03-31-2023 09:46-0400 Systolic blood pressure 147 mm[Hg] Malathi Roberts MD Work Phone: [facility] 03-12-2023 15:06-0400 Body height 152.4 cm [facility] 03-12-2023 15:06-0400 Body mass index (BMI) [Ratio] 23 kg/m2 [facility] 03-12-2023 15:06-0400 Body temperature 98.3 [degF] [facility] 03-12-2023 15:06-0400 Body weight 53.4 kg [facility] 03-12-2023 15:06-0400 Diastolic blood pressure 43 mm[Hg] [facility] 03-12-2023 15:06-0400 Heart rate 88 /min [facility] 03-12-2023 15:06-0400 Respiratory rate 19 /min [facility] 03-12-2023 15:06-0400 SaO2% (BldA) [Mass fraction] 96 % [facility] 03-12-2023 15:06-0400 Systolic blood pressure 144 mm[Hg] [facility] 03-12-2023 14:35-0400 Diastolic blood pressure 74 mm[Hg] Treatment Wstr Work Phone: [facility] 03-12-2023 14:35-0400 Heart rate 93 /min Treatment Wstr Work Phone: [facility] 03-12-2023 14:35-0400 Respiratory rate 22 /min Treatment Wstr Work Phone: [facility] 03-12-2023 14:35-0400 SaO2% (BldA) [Mass fraction] 96 % Treatment Wstr Work Phone: [facility] 03-12-2023 14:35-0400 Systolic blood pressure 132 mm[Hg] Treatment Wstr Work Phone: [facility] 03-12-2023 13:13-0400 Body temperature 98.71 [degF] Treatment Wstr Work Phone: [facility] 03-12-2023 13:13-0400 Body weight 49.44 kg Treatment Wstr Work Phone: [facility] 02-26-2023 13:52-0400 Body height 147.7 cm Joseluis Perez MD Work Phone: [facility] 02-26-2023 13:52-0400 Body temperature 97.81 [degF] Joseluis Perez MD Work Phone: [facility] 02-26-2023 13:52-0400 Body weight 48.99 kg Joseluis Perez MD Work Phone: [facility] 02-26-2023 13:52-0400 Diastolic blood pressure 70 mm[Hg] Joseluis Perez MD Work Phone: [facility] 02-26-2023 13:52-0400 Heart rate 73 /min Joseluis Perez MD Work Phone: [facility] 02-26-2023 13:52-0400 Systolic blood pressure 146 mm[Hg] Joseluis Perez MD Work Phone: [facility] 2022 15:09-0400 Body temperature 98.1 [degF] Joseluis Perez MD Work Phone: [facility] 2022 15:09-0400 Body weight 51.89 kg Joseluis Perez MD Work Phone: [facility] 2022 15:09-0400 Diastolic blood pressure 63 mm[Hg] Joseluis Perez MD Work Phone: [facility] 2022 15:09-0400 Heart rate 83 /min Joseluis Perez MD Work Phone: [facility] 2022 15:09-0400 Respiratory rate 15 /min Joseluis Perez MD Work Phone: [facility] 2022 15:09-0400 Systolic blood pressure 139 mm[Hg] Joseluis Perez MD Work Phone: [facility] 10-01-2022 14:43-0500 Body temperature 97.5 [degF] [facility] 10-01-2022 14:43-0500 Body weight 52.61 kg [facility] 10-01-2022 14:43-0500 Diastolic blood pressure 70 mm[Hg] [facility] 10-01-2022 14:43-0500 Heart rate 89 /min [facility] 10-01-2022 14:43-0500 Respiratory rate 16 /min [facility] 10-01-2022 14:43-0500 SaO2% (BldA) [Mass fraction] 98 % [facility] 10-01-2022 14:43-0500 Systolic blood pressure 129 mm[Hg] [facility] 09-19-2022 11:00-0500 Body temperature 97.9 [degF] Rosmery [facility] 09-19-2022 11:00-0500 Diastolic blood pressure 58 mm[Hg] [facility] 09-19-2022 11:00-0500 Heart rate 76 /min [facility] 09-19-2022 11:00-0500 Respiratory rate 16 /min [facility] 09-19-2022 11:00-0500 SaO2% (BldA) [Mass fraction] 94 % [facility] 09-19-2022 11:00-0500 Systolic blood pressure 114 mm[Hg] Rosmery [facility] 09-16-2022 10:48-0500 Body height 152.4 cm Rosmery [facility] 09-16-2022 10:48-0500 Body weight 52.7 kg Rosmery [facility] 09-11-2022 20:04-0500 Body mass index (BMI) [Ratio] 23.4 kg/m2 [facility] 09-11-2022 15:03-0500 Body temperature 98.6 [degF] Rosmery [facility] 09-11-2022 15:03-0500 Diastolic blood pressure 69 mm[Hg] [facility] 09-11-2022 15:03-0500 Heart rate 91 /min [facility] 09-11-2022 15:03-0500 Respiratory rate 18 /min [facility] 09-11-2022 15:03-0500 SaO2% (BldA) [Mass fraction] 93 % [facility] 09-11-2022 15:03-0500 Systolic blood pressure 140 mm[Hg] [facility] 09-11-2022 10:37-0500 Body height 152.4 cm [facility] Work Phone: 09-11-2022 10:37-0500 Body weight 54.7 kg [facility] 09-08-2022 06:00-0500 Inhaled oxygen flow rate 3 L/min [facility] 09-08-2022 02:17-0500 Body mass index (BMI) [Ratio] 24.7 kg/m2 [facility] 09-07-2022 14:18-0500 Body temperature 96.9 [degF] [facility] 09-07-2022 14:18-0500 Diastolic blood pressure 58 mm[Hg] [facility] 09-07-2022 14:18-0500 Heart rate 102 /min Rosmery [facility] 09-07-2022 14:18-0500 Respiratory rate 16 /min Rosmery [facility] 09-07-2022 14:18-0500 SaO2% (BldA) [Mass fraction] 93 % [facility] 09-07-2022 14:18-0500 Systolic blood pressure 127 mm[Hg] Rosmery [facility] 09-04-2022 12:44-0500 Body height 160.02 cm Rosmery [facility] Work Phone: 09-04-2022 12:44-0500 Body weight 55.79 kg [facility] 09-03-2022 20:29-0500 Body temperature 98.1 [degF] [facility] 09-03-2022 20:29-0500 Diastolic blood pressure 61 mm[Hg] [facility] 09-03-2022 20:29-0500 Heart rate 89 /min Rosmery [facility] 09-03-2022 20:29-0500 Respiratory rate 18 /min [facility] 09-03-2022 20:29-0500 SaO2% (BldA) [Mass fraction] 96 % [facility] 09-03-2022 20:29-0500 Systolic blood pressure 126 mm[Hg] Rosmery [facility] 09-01-2022 16:50-0500 Body height 160.02 cm Rosmery [facility] Work Phone: 09-01-2022 16:50-0500 Body weight 50.8 kg Rosmery [facility] 08-31-2022 20:05-0500 Body temperature 98.7 [degF] [facility] Work Phone: 08-31-2022 20:05-0500 Diastolic blood pressure 74 mm[Hg] [facility] Work Phone: 08-31-2022 20:05-0500 Heart rate 90 /min [facility] Work Phone: 08-31-2022 20:05-0500 Respiratory rate 17 /min [facility] Work Phone: 08-31-2022 20:05-0500 SaO2% (BldA) [Mass fraction] 99 % [facility] Work Phone: 08-31-2022 20:05-0500 Systolic blood pressure 134 mm[Hg] [facility] Work Phone: 08-31-2022 18:14-0500 Body mass index (BMI) [Ratio] 21 kg/m2 MD Rosmery Horn [facility] 08-31-2022 13:35-0500 Body height 160.02 cm [facility] Work Phone: 08-31-2022 13:35-0500 Body mass index (BMI) [Ratio] 19.8 kg/m2 [facility] Work Phone: 08-31-2022 13:35-0500 Body weight 50.8 kg [facility] Work Phone: 08-28-2022 10:42-0500 Body temperature 98.49 [degF] Nelia Maxwell APARTMENT MAINTENANCE MANAGER.ART PREPARATOR Work Phone: [facility] 08-28-2022 10:42-0500 Body weight 50.8 kg Nelia Maxwell APARTMENT MAINTENANCE MANAGER.ART PREPARATOR Work Phone: [facility] 08-28-2022 10:42-0500 Diastolic blood pressure 68 mm[Hg] Nelia Maxwell APARTMENT MAINTENANCE MANAGER.ART PREPARATOR Work Phone: [facility] 08-28-2022 10:42-0500 Heart rate 75 /min Nelai Maxwell APARTMENT MAINTENANCE MANAGER.ART PREPARATOR Work Phone: [facility] 08-28-2022 10:42-0500 Respiratory rate 16 /min Nelia Maxwell APARTMENT MAINTENANCE MANAGER.ART PREPARATOR Work Phone: [facility] 08-28-2022 10:42-0500 SaO2% (BldA) [Mass fraction] 94 % Nelia Johnsonman APARTMENT MAINTENANCE MANAGER.ART PREPARATOR Work Phone: [facility] 08-28-2022 10:42-0500 Systolic blood pressure 112 mm[Hg] Nelia Johnsonman APARTMENT MAINTENANCE MANAGER.ART PREPARATOR Work Phone: [facility] 08-03-2022 15:36-0500 Body height 152.4 cm Rosmery Horn MD Work Phone: [facility] 08-03-2022 15:36-0500 Body temperature 99.39 [degF] Rosmery Horn MD Work Phone: [facility] 08-03-2022 15:36-0500 Body weight 50.35 kg Rosmery Horn MD Work Phone: [facility] 08-03-2022 15:36-0500 Diastolic blood pressure 52 mm[Hg] Rosmery Horn MD Work Phone: [facility] 08-03-2022 15:36-0500 Heart rate 65 /min Rosmery Horn MD Work Phone: [facility] 08-03-2022 15:36-0500 Respiratory rate 12 /min Rosmery Horn MD Work Phone: [facility] 08-03-2022 15:36-0500 SaO2% (BldA) [Mass fraction] 97 % Rosmery Horn MD Work Phone: [facility] 08-03-2022 15:36-0500 Systolic blood pressure 102 mm[Hg] Rosmery Horn MD Work Phone: [facility] 05-30-2022 08:47-0400 Body weight 50.35 kg Rosmery Horn MD Work Phone: [facility] 05-30-2022 08:47-0400 Diastolic blood pressure 82 mm[Hg] Rosmery Horn MD Work Phone: [facility] 05-30-2022 08:47-0400 Heart rate 88 /min Rosmery Horn MD Work Phone: [facility] 05-30-2022 08:47-0400 Respiratory rate 16 /min Rosmery Horn MD Work Phone: [facility] 05-30-2022 08:47-0400 SaO2% (BldA) [Mass fraction] 94 % Rosmery Horn MD Work Phone: [facility] 05-30-2022 08:47-0400 Systolic blood pressure 130 mm[Hg] Rosmery Horn MD Work Phone: [facility] 04-14-2022 11:35-0400 Body weight 50.8 kg Naya Older APARTMENT MAINTENANCE MANAGER.ART PREPARATOR Work Phone: [facility] 04-14-2022 11:35-0400 Diastolic blood pressure 84 mm[Hg] Naya Older APARTMENT MAINTENANCE MANAGER.ART PREPARATOR Work Phone: [facility] 04-14-2022 11:35-0400 Heart rate 92 /min Naya Older APARTMENT MAINTENANCE MANAGER.ART PREPARATOR Work Phone: [facility] 04-14-2022 11:35-0400 Respiratory rate 12 /min Naya Older APARTMENT MAINTENANCE MANAGER.ART PREPARATOR Work Phone: [facility] 04-14-2022 11:35-0400 Systolic blood pressure 132 mm[Hg] Naya Older APARTMENT MAINTENANCE MANAGER.ART PREPARATOR Work Phone: [facility] 04-08-2022 17:15-0400 Body temperature 99.1 [degF] Jackie Light APARTMENT MAINTENANCE MANAGER.ART PREPARATOR Work Phone: [facility] 04-08-2022 17:15-0400 Body weight 52.62 kg Jackie Light APARTMENT MAINTENANCE MANAGER.ART PREPARATOR Work Phone: [facility] 04-08-2022 17:15-0400 Diastolic blood pressure 84 mm[Hg] Jackie Light APARTMENT MAINTENANCE MANAGER.ART PREPARATOR Work Phone: [facility] 04-08-2022 17:15-0400 Heart rate 79 /min Jackie Light APARTMENT MAINTENANCE MANAGER.ART PREPARATOR Work Phone: [facility] 04-08-2022 17:15-0400 Respiratory rate 20 /min Jackie Light APARTMENT MAINTENANCE MANAGER.ART PREPARATOR Work Phone: [facility] 04-08-2022 17:15-0400 SaO2% (BldA) [Mass fraction] 94 % Jackie Light APARTMENT MAINTENANCE MANAGER.ART PREPARATOR Work Phone: [facility] 04-08-2022 17:15-0400 Systolic blood pressure 126 mm[Hg] Jackie Light APARTMENT MAINTENANCE MANAGER.ART PREPARATOR Work Phone: [facility] 03-23-2022 10:20-0400 Body height 152.4 cm Frank Gross MD Work Phone: [facility] 03-23-2022 10:20-0400 Body weight 52.62 kg Frank Gross MD Work Phone: [facility] 03-23-2022 10:20-0400 Diastolic blood pressure 62 mm[Hg] Frank Gross MD Work Phone: [facility] 03-23-2022 10:20-0400 Systolic blood pressure 110 mm[Hg] Frank Gross MD Work Phone: [facility] 02-26-2022 09:22-0400 Body weight 52.8 kg Naila Youngblood MD Work Phone: [facility] 02-26-2022 09:22-0400 Diastolic blood pressure 81 mm[Hg] Naila Youngblood MD Work Phone: [facility] 02-26-2022 09:22-0400 Heart rate 88 /min Naila Youngblood MD Work Phone: [facility] 02-26-2022 09:22-0400 Respiratory rate 20 /min Naila Youngblood MD Work Phone: [facility] 02-26-2022 09:22-0400 SaO2% (BldA) [Mass fraction] 99 % Naila Youngblood MD Work Phone: [facility] 02-26-2022 09:22-0400 Systolic blood pressure 153 mm[Hg] Naila Youngblood MD Work Phone: [facility] 02-20-2022 11:18-0400 Body height 152.4 cm Abebe Gonsalez PA-C Work Phone: [facility] 02-20-2022 11:18-0400 Body temperature 98.71 [degF] Abebe Gonsalez PA-C Work Phone: [facility] 02-20-2022 11:18-0400 Body weight 53.07 kg Abebe Gonsalez PA-C Work Phone: [facility] 02-20-2022 11:18-0400 Diastolic blood pressure 84 mm[Hg] Abebe Gonsalez PA-C Work Phone: [facility] 02-20-2022 11:18-0400 Heart rate 108 /min Abebe Gonsalez PA-C Work Phone: [facility] 02-20-2022 11:18-0400 Respiratory rate 16 /min Abebe Gonsalez PA-C Work Phone: [facility] 02-20-2022 11:18-0400 SaO2% (BldA) [Mass fraction] 97 % Abebe Gonsalez PA-C Work Phone: [facility] 02-20-2022 11:18-0400 Systolic blood pressure 140 mm[Hg] Abebe Gonsalez PA-C Work Phone: [facility] 02-12-2022 13:02-0400 Body temperature 98.2 [degF] Nurse Main Work Phone: [facility] 02-12-2022 13:02-0400 Body weight 53.75 kg Nurse Main Work Phone: [facility] 02-12-2022 13:02-0400 Diastolic blood pressure 86 mm[Hg] Nurse Main Work Phone: [facility] 02-12-2022 13:02-0400 Heart rate 68 /min Nurse Main Work Phone: [facility] 02-12-2022 13:02-0400 Respiratory rate 16 /min Nurse Main Work Phone: [facility] 02-12-2022 13:02-0400 Systolic blood pressure 159 mm[Hg] Nurse Main Work Phone: [facility] 01-05-2022 13:48-0400 Body temperature 99.19 [degF] Nenita Solorio MD, MD Work Phone: [facility] 01-05-2022 13:48-0400 Body weight 54.43 kg Nenita Solorio MD, MD Work Phone: [facility] 01-05-2022 13:48-0400 Diastolic blood pressure 79 mm[Hg] Nenita Solorio MD, MD Work Phone: [facility] 01-05-2022 13:48-0400 Heart rate 87 /min Nenita Solorio MD, MD Work Phone: [facility] 01-05-2022 13:48-0400 SaO2% (BldA) [Mass fraction] 94 % Nenita Solorio MD, MD Work Phone: [facility] 01-05-2022 13:48-0400 Systolic blood pressure 147 mm[Hg] Nenita Solorio MD, MD Work Phone: [facility] 11-05-2021 21:32-0500 Diastolic blood pressure 82 mm[Hg] Rosmery Ganta Other Phone: [facility] 11-05-2021 21:32-0500 Heart rate 71 /min Rosmery Ganta Other Phone: [facility] 11-05-2021 21:32-0500 Respiratory rate 18 /min Rosmery Ganta Other Phone: [facility] 11-05-2021 21:32-0500 SaO2% (BldA) [Mass fraction] 95 % Rosmery Ganta Other Phone: [facility] 11-05-2021 21:32-0500 Systolic blood pressure 141 mm[Hg] Rosmery Ganta Other Phone: [facility] 11-05-2021 19:49-0500 Body height 152.4 cm Rosmery Ganta Other Phone: [facility] 11-05-2021 19:49-0500 Body temperature 97.88 [degF] Rosmery Ganta Other Phone: [facility] 11-05-2021 19:49-0500 Body weight 53.6 kg Rosmery Ganta Other Phone: [facility] 11-05-2021 13:48-0500 Body height 152 cm Rosmery Ganta Other Phone: [facility] 11-05-2021 13:48-0500 Body temperature 98.06 [degF] Rosmery Ganta Other Phone: [facility] 11-05-2021 13:48-0500 Diastolic blood pressure 75 mm[Hg] Rosmery Ganta Other Phone: [facility] 11-05-2021 13:48-0500 Heart rate 80 /min Rosmery Ganta Other Phone: [facility] 11-05-2021 13:48-0500 Systolic blood pressure 145 mm[Hg] Rosmery Ganta Other Phone: [facility] 10-06-2018 11:18-0500 Body Temperature 98.01 [degF] [facility] 10-06-2018 11:18-0500 BP Diastolic 78 mm[Hg] [facility] 10-06-2018 11:18-0500 BP Systolic 120 mm[Hg] [facility] 10-06-2018 11:18-0500 Pulse (Heart Rate) 70 /min [facility] 10-06-2018 11:18-0500 Pulse Oximetry 98 % [facility] 10-06-2018 11:18-0500 Respiratory Rate 18 /min [facility] 10-05-2018 14:40-0500 BP Diastolic 78 mm[Hg] [facility] 10-05-2018 14:40-0500 BP Systolic 123 mm[Hg] [facility] 10-05-2018 14:40-0500 Pulse Oximetry 98 % [facility] 10-03-2018 14:15-0500 BP Diastolic 78 mm[Hg] [facility] 10-03-2018 14:15-0500 BP Systolic 132 mm[Hg] [facility] 10-03-2018 14:15-0500 Pulse (Heart Rate) 78 /min [facility] 10-03-2018 14:15-0500 Pulse Oximetry 98 % [facility] 09-27-2018 15:36-0500 BP Diastolic 78 mm[Hg] [facility] 09-27-2018 15:36-0500 BP Systolic 123 mm[Hg] [facility] 09-27-2018 15:36-0500 Pulse Oximetry 98 % [facility] 09-26-2018 16:39-0500 BP Diastolic 78 mm[Hg] [facility] 09-26-2018 16:39-0500 BP Systolic 132 mm[Hg] [facility] 09-26-2018 16:39-0500 Pulse Oximetry 98 % [facility] 09-23-2018 12:59-0500 BP Diastolic 68 mm[Hg] [facility] 09-23-2018 12:59-0500 BP Systolic 112 mm[Hg] [facility] 09-23-2018 12:59-0500 Pulse (Heart Rate) 78 /min [facility] 09-23-2018 12:59-0500 Pulse Oximetry 98 % [facility] 09-23-2018 12:35-0500 Body Temperature 98.01 [degF] [facility] 09-23-2018 12:35-0500 BP Diastolic 68 mm[Hg] [facility] 09-23-2018 12:35-0500 BP Systolic 112 mm[Hg] [facility] 09-23-2018 12:35-0500 Pulse Oximetry 98 % [facility] 09-23-2018 12:35-0500 Respiratory Rate 14 /min [facility] 09-21-2018 13:05-0500 BMI (Body Mass Index) 21.68 kg/m2 [facility] 09-21-2018 13:05-0500 Body Temperature 98.01 [degF] [facility] 09-21-2018 13:05-0500 BP Diastolic 78 mm[Hg] [facility] 09-21-2018 13:05-0500 BP Systolic 144 mm[Hg] [facility] 09-21-2018 13:05-0500 Height 152.4 cm [facility] 09-21-2018 13:05-0500 Pulse (Heart Rate) 78 /min [facility] 09-21-2018 13:05-0500 Pulse Oximetry 97 % [facility] 09-21-2018 13:05-0500 Respiratory Rate 18 /min [facility] 09-21-2018 13:05-0500 Weight 50.35 kg [facility] 09-19-2018 16:11-0500 BP Diastolic 78 mm[Hg] [facility] 09-19-2018 16:11-0500 BP Systolic 123 mm[Hg] [facility] 09-19-2018 16:11-0500 Pulse (Heart Rate) 78 /min [facility] 09-19-2018 16:11-0500 Pulse Oximetry 98 % [facility] Encounters Encounter Date Encounter Type Care Provider Facility Start: 02-28-2025 End: 03-01-2025 Telephone encounter Franklin Salmon MD Work Phone: Urogynecology Comment on above: Medication Problem Start: 02-13-2025 End: 02-13-2025 Emergency department patient visit Bahman Ann DO Work Phone: [facility] Emergency Medicine Comment on above: Urinary tract infect ion with hematuria, site unspecified (Primary Dx) Start: 01-25-2025 End: 01-25-2025 ambulatory [facility] Start: 12-12-2024 End: 12-12-2024 ambulatory [facility] Start: 10-31-2024 End: 10-31-2024 ambulatory [facility] Start: 10-19-2024 End: 10-19-2024 [facility] Start: 08-19-2024 End: 08-19-2024 Emergency department patient visit [facility] Emergency Medicine Comment on above: Acute bronchitis, un specified organism (Primary Dx); Acute cough Start: 08-17-2024 End: 08-17-2024 Patient encounter procedure Lindsey Crisostomo APARTMENT MAINTENANCE MANAGER-ART PREPARATOR Work Phone: [facility] Comment on above: Bronchitis after pool dolores (Primary Dx); Acute cough Start: 08-17-2024 End: 08-17-2024 [facility] Start: 08-08-2024 End: 08-08-2024 Patient encounter procedure Lindsey Crisostomo APARTMENT MAINTENANCE MANAGER-ART PREPARATOR Work Phone: [facility] Comment on above: Dysuria (Primary Dx) ; Acute cystitis with hematuria Start: 08-08-2024 End: 08-08-2024 [facility] Start: 08-08-2024 End: 08-08-2024 [facility] Start: 06-22-2024 End: 06-22-2024 [facility] Start: 04-17-2024 ambulatory UNKNOWN PROVIDER Facili ty:[facility] Start: 04-17-2024 End: 04-17-2024 Subsequent hospital visit by physician Pet [facility] PET CT Comment on above: Malignant neoplasm o f uterus, unspecified site (HCC) [C55] Start: 03-11-2024 End: 03-11-2024 [facility] Start: 02-25-2024 End: 02-25-2024 Emergency department patient visit Bahman Ann DO Work Phone: [facility] Emergency Medicine Comment on above: Urinary tract infect ion with hematuria, site unspecified (Primary Dx); Constipation, unspecified constipation type; Dizziness Start: 02-17-2024 End: 02-17-2024 Office outpatient visit 40 minutes Terry Espino MD Work Phone: [facility] Building Comment on above: Palliative care enco unter (Primary Dx) Start: 02-09-2024 End: 02-09-2024 ambulatory [facility] Facility:[facility] Start: 02-09-2024 End: 02-09-2024 Patient encounter procedure Franklin Salmon MD Work Phone: POLITICAL RESEARCH SCIENTIST UROL [facility] Comment on above: Acute vulvitis (Prim miguel angel Dx); Radiation cystitis Start: 01-17-2024 Telephone encounter Franklin Salmon MD Work Phone: URO/Gynecology Start: 01-15-2024 ambulatory Franklin barrett MD Work Phone: URO/Gynecology Comment on above: Pain with urination Start: 01-11-2024 End: 01-11-2024 [facility] Facility:[facility] Start: 01-04-2024 End: 01-04-2024 ambulatory Lab/[place] [facility] Work Phone: Hematology/Oncology Comment on above: Antineoplastic chemo therapy induced anemia (Primary Dx) Start: 12-28-2023 Telephone encounter Kelley narvaez APRN.ART PREPARATOR Work Phone: Pre Anesthesia Comment on above: Xarelto Instructions Start: 12-27-2023 End: 12-27-2023 Admission to establishment Pacc [place] 1 Work Phone: Pre Anesthesia Start: 12-27-2023 End: 12-27-2023 [facility] Facility:[facility] Start: 12-27-2023 End: 12-27-2023 Anesthesia consultation Pacc [place] 1 Work Phone: Pre Anesthesia Comment on above: Preoperative examina tion (Primary Dx); Multiple sclerosis (HCC); Radiation cystitis; History of uterine cancer; History of pulmonary embolism; History of DVT (deep vein thrombosis); Anxiety; Mixed hyperlipidemia; Bilateral carotid artery stenosis; Acquired hypothyroidism; Anemia, unspecified type Start: 12-27-2023 End: 12-27-2023 Preprocedural examination done Pac [place] 1 Work Phone: [facility] Work Phone: Start: 12-24-2023 Telephone encounter Franklin Salmon MD Work Phone: Gynecology Comment on above: Question Medication Question Start: 12-17-2023 End: 12-17-2023 ambulatory [employer] Labou[employer] Nurse Nakul Work Phone: POLITICAL RESEARCH SCIENTIST UROL [facility] Comment on above: Educational circumst ance (Primary Dx) Start: 12-17-2023 End: 12-17-2023 Telemedicine consultation with patient [employer] Labou[employer] Nurse Nakul Work Phone: [facility] NAKUL FERNANDEZ Start: 12-16-2023 End: 12-16-2023 ambulatory Franklin Salmon MD Work Phone: URO/Gynecology Comment on above: Radiation cystitis ( Primary Dx); OAB (overactive bladder) [N32.81] Start: 12-16-2023 End: 12-16-2023 Telemedicine consultation with patient Franklin Salmon MD Work Phone: POLITICAL RESEARCH SCIENTIST UROL VERA FRAZIER Start: 12-16-2023 End: 12-16-2023 ambulatory BERNARDINO CHI PAKO Facility:[facility] Start: 12-13-2023 End: 12-13-2023 Office outpatient new 60 minutes Terry Espino MD Work Phone: [facility] Comment on above: Palliative care enco unter (Primary Dx) Start: 12-09-2023 Telephone encounter Franklin Salmon MD Work Phone: [facility] Comment on above: Patient Update Start: 12-08-2023 Telephone encounter Franklin Salmon MD Work Phone: [facility] Comment on above: Schedule Surgery Start: 12-03-2023 Telephone encounter Franklin Salmon MD Work Phone: Obstetrics/Gynecology Start: 12-03-2023 End: 12-03-2023 ambulatory [facility] Start: 12-02-2023 Telephone encounter Franklin Salmon MD Work Phone: URO/Gynecology Start: 12-01-2023 End: 12-01-2023 ambulatory Franklin Salmon MD Work Phone: POLITICAL RESEARCH SCIENTIST [facility]OL [facility] Comment on above: Urge urinary inconti nence (Primary Dx); Urinary urgency Start: 12-01-2023 End: 12-01-2023 Telemedicine consultation with patient Franklin Salmon MD Work Phone: [facility] Start: 11-24-2023 Telephone encounter Franklin Salmon MD Work Phone: [facility] Comment on above: Schedule Surgery Start: 11-19-2023 ambulatory Franklin barrett MD Work Phone: URO/Gynecology Comment on above: Questions Start: 11-18-2023 End: 11-18-2023 ambulatory FRANKLIN SALMON Facility:[facility] Start: 11-18-2023 End: 11-18-2023 Patient encounter procedure Franklin Salmon MD Work Phone: URO/Gynecology Comment on above: Radiation cystitis ( Primary Dx); OAB (overactive bladder) [N32.81]; Lesion of bladder Start: 10-26-2023 ambulatory Franklin barrett MD Work Phone: POLITICAL RESEARCH SCIENTIST [facility] Comment on above: Medication not worki ng Start: 10-09-2023 ambulatory Franklin barrett MD Work Phone: POLITICAL RESEARCH SCIENTIST [facility] Comment on above: Rosita mesa call into pharmacist Start: 10-08-2023 Telephone encounter Franklin Salmon MD Work Phone: URO/Gynecology Start: 10-07-2023 Telephone encounter Franklin Salmon MD Work Phone: [facility] Comment on above: Medication Problem Start: 10-06-2023 End: 10-06-2023 Nutrition therapy Malathi Roberts MD Work Phone: [facility] Gynecology Oncology Comment on above: Malignant neoplasm o f uterus, unspecified site (HCC) (Primary Dx); Severe malnutrition (HCC) Start: 10-06-2023 End: 10-06-2023 Telemedicine consultation with patient Malathi Roberts MD Work Phone: [facility] Start: 10-06-2023 End: 10-06-2023 ambulatory FRANKLIN SALMON Facility:[facility] Start: 10-06-2023 End: 10-06-2023 Patient encounter procedure Franklin Salmon MD Work Phone: POLITICAL RESEARCH SCIENTIST UROL [facility] Comment on above: Cystitis (Primary Dx ); Microscopic hematuria; Detrusor overactivity; Constipation, unspecified constipation type Start: 10-04-2023 Telephone encounter Malathi Roberts MD Work Phone: [facility] Gynecology Oncology Comment on above: Appointment Start: 10-01-2023 Telephone encounter Nate Krishna APRN.CNP Work Phone: [facility] Gynecology Oncology Comment on above: Results Start: 09-29-2023 End: 09-29-2023 ambulatory NATE KRISHNA Facility:[facility] Start: 09-27-2023 End: 09-27-2023 ambulatory NATE KRISHNA Facility:[facility] Start: 09-02-2023 End: 09-02-[address] Bernardino Min Work Phone: [facility] Work Phone: Start: 09-02-2023 End: 09-02-[address] Bernardino Min Work Phone: [facility]-Laboratory, Phy Office 3rd Flr Start: 08-09-2023 End: 08-09-2023 ambulatory [facility] Start: 08-03-2023 End: 08-04-2023 ambulatory BERNARDINO MIN Facility:[facility] Start: 07-26-2023 Telephone encounter Domo gan DO Work Phone: Hematology/Oncology Comment on above: Appointment Start: 07-09-2023 End: 07-09-2023 ambulatory BERNARDINO MIN Facility:[facility] Start: 07-09-2023 Non-patient / Non-visit Dr. Everett Min Work Phone: [facility] Start: 07-09-2023 End: 07-09-[address] Bernardino Min Work Phone: [facility] Work Phone: Start: 07-09-2023 End: 07-09-[address] Bernardino Min Work Phone: [facility]-Cardiovascula r Services Work Phone: Start: 06-29-2023 End: 07-09-2023 Evaluation and management of inpatient Dr. Bernardino Min Work Phone: [facility]-Transitional Care Unit Start: 06-29-2023 Non-patient / Non-visit Dr. Everett Min Work Phone: [facility] Work Phone: Start: 06-28-2023 Non-patient / Non-visit Dr. Everett Min Work Phone: [facility] Work Phone: Start: 06-27-2023 Non-patient / Non-visit Dr. Everett Min Work Phone: [facility] Work Phone: Start: 06-26-2023 End: 06-29-2023 Evaluation and management of inpatient [facility]-Medical Surgical 3 Work Phone: Start: 06-26-2023 End: 06-29-[address] Bernardino Min Work Phone: [facility] Work Phone: Start: 06-25-2023 Telephone encounter Domo gan DO Work Phone: Hematology/Oncology Comment on above: Patient Update Start: 06-25-2023 End: 06-25-2023 ambulatory Lab[facility] [facility] Work Phone: Hematology/Oncology Comment on above: Malignant neoplasm o f uterus, unspecified site (HCC) (Primary Dx); Chronic deep vein thrombosis (DVT) of proximal vein of left lower extremity (HCC); Malaise and fatigue Start: 06-23-2023 Telephone encounter Mason Delgado matology/Oncology Comment on above: 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 Worker - O ther (Follow-up ) Start: 06-22-2023 Telephone encounter Domo gan DO Work Phone: Hematology/Oncology Comment on above: Fatigue Start: 06-20-2023 ambulatory Domo Frazier D O Work Phone: Hematology/Oncology Comment on above: Rosita Kennedy Immuno therapy Start: 06-17-2023 Telephone encounter Mason Delgado matology/Oncology Comment on above: 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 Worker - O ther (Follow-up ) Start: 06-14-2023 Telephone encounter Mason Delgado matology/Oncology Comment on above: 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 Worker - O ther (C1D1 Post Treatment Call (Keytruda/Lenvatinib)) Start: 06-11-2023 End: 06-11-2023 ambulatory Lab/[place] [facility] Work Phone: Hematology/Oncology Comment on above: Endometrial cancer ( HCC); Acquired hypothyroidism Malignant neoplasm o f uterus, unspecified site (HCC) (Primary Dx) Start: 06-04-2023 End: 06-04-2023 ambulatory DOMO FRAZIER Facility:[facility] Start: 06-03-2023 ambulatory Huma Hammond [facility] Start: 06-03-2023 Patient encounter procedure Huma Hammond [facility] Comment on above: SPP Oral Oncology/he matology - Treatment Referral (Lenvima 10mg/day); Insurance Authorization (Pending PA Submission) Start: 06-03-2023 Telephone encounter Mason Delgado matology/Oncology Comment on above: 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 Worker - O ther (Oral Chemotherapy Medication (Lenvatinib)) Start: 06-01-2023 End: 06-01-2023 ambulatory DOMO FRAZIER Facility:[facility] Start: 05-20-2023 End: 05-20-2023 Subsequent hospital visit by physician Pet Injection [facility] [employer] Work Phone: [facility] [employer] Comment on above: Malignant neoplasm o f endometrium (HCC) [C54.1] Start: 04-30-2023 End: 04-30-2023 ambulatory Malathi Roberts MD Work Phone: [facility] Gynecology Oncology Comment on above: Acute right-sided lo w back pain without sciatica (Primary Dx); Malignant neoplasm of uterus, unspecified site (HCC); Acute pain of right shoulder Start: 04-30-2023 End: 04-30-2023 Patient encounter procedure Malathi Roberts MD Work Phone: [facility] Start: 04-13-2023 End: 04-13-2023 Emergency department patient visit Carolyn Solorzano [facility] Start: 04-05-2023 Telephone encounter Henryshaquille Donovan RN Gynecology Comment on above: Care Coordination Start: 03-31-2023 End: 03-31-2023 ambulatory Malathi Roberts MD Work Phone: [facility] Gynecology Oncology Comment on above: Malignant neoplasm o f uterus, unspecified site (HCC) (Primary Dx) Start: 03-31-2023 End: 03-31-2023 Patient encounter procedure Malathi Roberts MD Work Phone: [facility] Start: 03-29-2023 Telephone encounter Henry Donovan RN Gynecology Comment on above: Care Coordination (P OC) Malignant neoplasm o f uterus, unspecified site (HCC) (Primary Dx) Patient Update; Brigid ent Question Start: 03-26-2023 End: 03-27-2023 ambulatory BERNARDINO TAPIA PAKO Facility:[facility] Start: 03-19-2023 End: 03-19-2023 ambulatory JOSELUIS PEREZ Facility:[facility] Start: 03-16-2023 Telephone encounter Deborah Boyd RN Gynecology Comment on above: Appointment; Patient Update Start: 03-12-2023 End: 03-12-2023 Emergency department patient visit [facility]Emergency Department Work Phone: Start: 03-12-2023 End: 03-12-2023 Orders Only Joseluis Perez MD Work Phone: Gynecology Comment on above: Malignant neoplasm o f uterus, unspecified site (HCC) (Primary Dx) Endometrial cancer ( HCC) (Primary Dx); History of uterine cancer Chemotherapy Treatme nt Start: 03-08-2023 Orders Only Joseluis Perez MD Work Phone: Gynecology Oncology Start: 03-04-2023 End: 03-04-2023 Refill Racheal Saldana APARTMENT MAINTENANCE MANAGER.ART PREPARATOR Work Phone: Gynecology Comment on above: Care Coordination Discoloration of ski n of lower leg [L81.9] Start: 03-03-2023 Orders Only Racheal bradshaw APARTMENT MAINTENANCE MANAGER.ART PREPARATOR Work Phone: Gynecology Comment on above: Malignant neoplasm o f endometrium (HCC) (Primary Dx) Start: 02-26-2023 End: 02-26-2023 ambulatory [facility] Facility:[facility] Start: 02-26-2023 End: 02-26-2023 Nutrition therapy Joseluis Perez MD Work Phone: Gynecology Comment on above: Malignant neoplasm o f endometrium (HCC) (Primary Dx); Recurrent cancer (HCC); Discoloration of skin of lower leg; Leg swelling; Severe malnutrition (HCC) Start: 02-26-2023 End: 02-26-2023 Patient encounter procedure Joseluis Perez MD Work Phone: [facility] Start: 02-25-2023 Orders Only Joseluis Perez MD Work Phone: Gynecology Comment on above: Endometrial cancer ( HCC) (Primary Dx); Encounter for monitoring cardiotoxic drug therapy Start: 02-20-2023 ambulatory Joseluis Perez MD Work Phone: [facility] Start: 02-20-2023 Follow-up encounter Joseluis boyd MD Work Phone: Gynecology Comment on above: Follow Up on test re sults from Scan on 02/18 Start: 02-17-2023 ambulatory BERNARDINO MIN Facility:[facility] Start: 02-17-2023 End: 02-17-2023 Subsequent hospital visit by physician Pet Injection [place] [facility] Comment on above: Endometrial cancer ( HCC) [C54.1] Start: 02-16-2023 Telephone encounter Luz (Pss) Rosaline sy Radiology Comment on above: Appointment Instruct ions (Appt reminder call - spoke with patient - went over dietary guidelines; dress comfortable, directions to office.) Start: 12-24-2022 ambulatory Wanda Blum [facility] Comment on above: Population Health Na vigation Outreach (HCC) Start: 12-14-2022 Telephone encounter Cami Baez RN Gynecology Comment on above: Patient Update Start: 12-07-2022 Telephone encounter Henry Donovan RN Gynecology Comment on above: Care Coordination (F ollow up POC) Start: 12-02-2022 ambulatory Rosmery Casas Work Phone: Internal Medicine [facility] [place] Start: 11-30-2022 ambulatory Henry suarez RN [facility] Start: 11-30-2022 Coordination of care plan Todd Donovan RN Gynecology Comment on above: Education Of Patient /family; Care Coordination Start: 11-29-2022 ambulatory Racheal bradshaw APRN.CNP Work Phone: Gynecology Start: 2022 End: 2022 ambulatory JOSELUIS PEREZ Facility:[facility] Start: 2022 End: 2022 ambulatory Joseluis Perez MD Work Phone: Gynecology Comment on above: Endometrial cancer ( HCC) [C54.1 (ICD-10-CM)] (Primary Dx); Malignant neoplasm of endometrium (HCC); History of DVT of lower extremity Start: 2022 End: 2022 Patient encounter procedure Joseluis Perez MD Work Phone: [facility] Start: 11-05-2022 Refill Ellen Ekta BARRERA .CNP Work Phone: Internal Medicine [place] Comment on above: Refill Request Start: 11-04-2022 ambulatory RACHEALYaquelin SALDANA [facility] y:[facility] Start: 11-03-2022 Telephone encounter Wagner harkins (Pas) Radiology Comment on above: Appointment instruct ions (PET SCAN - 11/04/2022 @200pm /Appointment reminder call- spoke with patient- went over dietary guidelines; dress comfortable, directions to office /) Start: 10-01-2022 End: 10-01-2022 Patient encounter procedure Rosmery [facility] Vascular Surgery Start: 09-30-2022 Non-patient / Non-visit MD Bot[facility] Start: 09-30-2022 Patient encounter procedure [facility]-Cardiovascula r Services Start: 09-28-2022 End: 09-28-2022 ambulatory [facility] Work Phone: Start: 09-28-2022 End: 09-28-2022 Patient encounter procedure [facility]-Laboratory, Phy Office 3rd Flr Start: 09-22-2022 Telephone encounter Rosmery mcgee MD Work Phone: Internal [facility] Comment on above: HH PT POC Start: 09-11-2022 End: 09-19-2022 Evaluation and management of inpatient Rosmery [facility]-Transitional Care Unit Start: 09-11-2022 Non-patient / Non-visit MD Rosmery [facility] Start: 09-10-2022 Non-patient / Non-visit MD Rosmery [facility]line [facility] Start: 09-10-2022 End: 09-10-2022 Non-patient / Non-visit MD Rosmery Horn [facility] [facility] Start: 09-09-2022 Non-patient / Non-visit MD Rosmery Cline [facility] Start: 09-08-2022 Non-patient / Non-visit MD Rosmery Cline [facility] Start: 09-08-2022 End: 09-08-2022 Non-patient / Non-visit MD Rosmery Horn [facility] Start: 09-07-2022 End: 09-11-2022 Evaluation and management of inpatient MD Rosmery Horn [facility]-Progressive Care Unit Start: 09-03-2022 End: 09-07-2022 Evaluation and management of inpatient MD Rosmery Horn [facility]-Transitional Care Unit Start: 09-03-2022 Non-patient / Non-visit MD Rosmery [facility] Start: 09-03-2022 Non-patient / Non-visit MD Rosmery [facility] Start: 09-02-2022 Non-patient / Non-visit MD Rosmery [facility]line [facility] Start: 09-02-2022 Non-patient / Non-visit MD Rosmery [facility]line [facility] Start: 09-01-2022 Non-patient / Non-visit MD Rosmery [facility]line [facility] Start: 09-01-2022 Non-patient / Non-visit MD Rosmery [facility] Start: 08-31-2022 Non-patient / Non-visit MD Rosmery [facility] Start: 08-31-2022 End: 09-03-2022 Evaluation and management of inpatient [facility]-Medical Surgical 3 Start: 08-28-2022 End: 08-28-2022 Patient encounter procedure Nelia Arreola APRN.CNP Work Phone: Family Medicine [place] Comment on above: Recurrent UTI (urina ry tract infection) (Primary Dx); Recurrent acute confusion; Rectal bleeding; Acute bilateral low back pain without sciatica; Excoriation of buttock, initial encounter; Decreased rectal sphincter tone; Chronic diarrhea Start: 08-27-2022 ambulatory Luisa Arshad RN NURSE O N CALL Comment on above: Diarrhea Start: 08-27-2022 Telephone encounter Rosmery mcgee MD Work Phone: Internal Medicine [place] Comment on above: Patient Update; Brigid ent Request Start: 08-15-2022 Telephone encounter Rosmery mcgee MD Work Phone: Internal Medicine [place] Comment on above: Medication Request Start: 08-14-2022 ambulatory Rosmery Casas Work Phone: [facility] Start: 08-14-2022 Patient encounter procedure Rosmery Horn MD Work Phone: Internal Medicine [place] Comment on above: Should we make an ap pointment? Start: 08-03-2022 End: 08-03-2022 Patient encounter procedure Rosmery Horn MD Work Phone: Internal Medicine [place] Comment on above: Hypomagnesemia (Prim miguel angel Dx); Hypothyroidism, unspecified type; Vitamin D deficiency; Vitamin B12 deficiency; Mixed hyperlipidemia Start: 07-30-2022 Refill Rosmery Casas Work Phone: Internal Medicine [place] Comment on above: Refill Request Start: 06-19-2022 End: 06-19-2022 ambulatory Joseluis Perez MD Work Phone: Gynecology Comment on above: Malignant neoplasm o f endometrium (HCC) (Primary Dx); Periaortic lymphadenopathy; S/P radiation therapy Start: 06-19-2022 End: 06-19-2022 Telemedicine consultation with patient Joseluis Perez MD Work Phone: [facility] Start: 06-19-2022 End: 06-20-2022 ambulatory JOSELUIS PEREZ Facility:[facility] Start: 06-16-2022 End: 06-16-2022 ambulatory Joseluis Perez MD Work Phone: [facility] Comment on above: Malignant neoplasm o f endometrium (HCC) (Primary Dx); Endometrial cancer (HCC) Start: 06-16-2022 Patient encounter procedure Joseluis Perez MD Work Phone: Gynecology Comment on above: Rosita's Appointment 06/19 Start: 06-16-2022 End: 06-16-2022 Telemedicine consultation with patient Nalia Youngblood MD Work Phone: [facility] Start: 06-12-2022 ambulatory ROSMERY HORN Facility:[facility] Start: 06-12-2022 End: 06-12-2022 Subsequent hospital visit by physician Jose Winter [facility] Start: 05-30-2022 End: 05-30-2022 Patient encounter procedure Rosmery Horn MD Work Phone: Internal Medicine [place] Comment on above: Diarrhea, unspecifie d type (Primary Dx); Hypomagnesemia; Dizziness; Endometrial cancer, grade I (HCC) Start: 05-29-2022 ambulatory Rosmery Casas Work Phone: [facility] Comment on above: Diarrhea Start: 05-29-2022 Patient encounter procedure Rosmery Horn MD Work Phone: Internal Medicine [place] Comment on above: Rosita's appointment tomorrow 05/30 Start: 05-15-2022 ambulatory Rosmery Casas Work Phone: Internal Medicine [place] Comment on above: Medical Question Start: 05-02-2022 ambulatory Joseluis Perez MD Work Phone: Gynecology Comment on above: Per scan Start: 05-01-2022 End: 05-01-2022 Patient encounter procedure Peter Soto MD Work Phone: Ophthalmology Comment on above: Optic atrophy, right eye (Primary Dx); Primary open angle glaucoma (POAG) of right eye, severe stage; Primary open angle glaucoma (POAG) of left eye, moderate stage; Visual field loss; Multiple sclerosis (HCC) Start: 04-29-2022 End: 04-29-2022 ambulatory Naila Youngblood MD Work Phone: Radiation Oncology Comment on above: Endometrial cancer ( HCC) (Primary Dx) Start: 04-29-2022 End: 04-29-2022 Telemedicine consultation with patient Naila Youngblood MD Work Phone: [facility] Start: 04-27-2022 Patient encounter procedure Rosmery Horn Work Phone: [facility] Work Phone: Start: 04-14-2022 End: 04-14-2022 Patient encounter procedure Naya Dash APARTMENT MAINTENANCE MANAGER.ART PREPARATOR Work Phone: Internal Medicine [place] Comment on above: Positional lighthead edness (Primary Dx); Diarrhea, unspecified type; Recurrent UTI Start: 04-08-2022 End: 04-08-2022 Patient encounter procedure Jackie Light APARTMENT MAINTENANCE MANAGER.ART PREPARATOR Work Phone: [place] [facility] Comment on above: Dysuria (Primary Dx) ; Recurrent UTI (urinary tract infection) Start: 03-26-2022 End: 03-26-2022 ambulatory Joseluis Perez MD Work Phone: Gynecology Comment on above: Malignant neoplasm o f endometrium (HCC) (Primary Dx); Periaortic lymphadenopathy; S/P radiation therapy Start: 03-26-2022 End: 03-26-2022 Telemedicine consultation with patient Joseluis Perez MD Work Phone: [facility] Start: 03-24-2022 ambulatory Joseluis Perez MD Work Phone: [facility] Comment on above: Thank you for catarino y to have a phone call Start: 03-24-2022 Patient encounter procedure Joseluis Perez MD Work Phone: Gynecology Comment on above: Virtual Appointment Start: 03-24-2022 Telephone encounter Abebe chapa PA-C Work Phone: Urology Comment on above: Appointment Start: 03-23-2022 End: 03-23-2022 Patient encounter procedure Frank Gross MD Work Phone: [facility] Comment on above: Acute cystitis witho ut hematuria (Primary Dx); Chronic UTI; Screening for genitourinary condition Start: 03-20-2022 Telephone encounter Henry hill RN Work Phone: Radiation Oncology Comment on above: Post Radiation Treat ment Follow Up Start: 03-18-2022 Telephone encounter Anant olckett MD Work Phone: [facility] Comment on above: Opened In Error Start: 03-13-2022 Telephone encounter Abebe Antonio eduard TANG-C Work Phone: Urology Comment on above: Orders Start: 02-26-2022 End: 02-26-2022 Patient encounter procedure Naila Youngblood MD Work Phone: Radiation Oncology Comment on above: Malignant neoplasm o f endometrium (HCC) (Primary Dx) Start: 02-20-2022 End: 02-20-2022 Patient encounter procedure Abebe Sunshine LAN[place] Work Phone: Urology Comment on above: Acute cystitis witho ut hematuria (Primary Dx) Start: 02-16-2022 Telephone encounter Rosmery mcgee MD Work Phone: Internal Medicine [place] Comment on above: Results Start: 02-12-2022 Patient encounter procedure Naila Youngblood MD Work Phone: [facility] Start: 02-12-2022 Radiation Oncology Note Naila Youngblood MD Work Phone: Radiation Oncology Comment on above: Simulation Note Treatment Planning Start: 02-12-2022 End: 02-12-2022 Nursing evaluation of patient and report Nurse Kely Main Work Phone: Radiation Oncology Comment on above: Malignant neoplasm o f endometrium (HCC) (Primary Dx) Start: 02-12-2022 End: 02-12-2022 ambulatory [facility]y Main [facility] 1 Work Phone: Hematology/Oncology Comment on above: Mixed hyperlipidemia ; Encounter for monitoring chronic NSAID therapy; Recurrent UTI; Vitamin D deficiency; Hypothyroidism, unspecified type; Hypokalemia Start: 02-06-2022 End: 02-06-2022 ambulatory Naila Youngblood MD Work Phone: Radiation Oncology Comment on above: Malignant neoplasm o f endometrium (HCC) Start: 02-06-2022 End: 02-06-2022 Telemedicine consultation with patient Naila Youngblood MD Work Phone: [facility] Start: 01-30-2022 End: 01-30-2022 ambulatory Rosmery Horn MD Work Phone: Internal Medicine [place] Comment on above: Encounter for monito ring chronic NSAID therapy (Primary Dx); Hypokalemia; Mixed hyperlipidemia; Vitamin D deficiency; Hypothyroidism, unspecified type; Recurrent UTI; Depression, unspecified depression type; Insomnia, unspecified type Start: 01-30-2022 End: 01-30-2022 Telemedicine consultation with patient Rosmery Horn MD Work Phone: [facility] Start: 01-30-2022 Patient encounter procedure Rosmery Horn Work Phone: [facility] Work Phone: Start: 01-30-2022 [id number], Provider : Montserrat Vaughan, Status: Pen, Time: 10:00 AM Rosmery Horn Work Phone: [facility] Work Phone: Start: 01-28-2022 Patient encounter procedure Rosmery Horn Work Phone: [facility] Work Phone: Start: 01-23-2022 ambulatory Naya SolizART PREPARATOR Work Phone: Internal Medicine [place] Comment on above: Rosita Kennedy Medica tion Questions Start: 01-23-2022 Telephone encounter Racheal Saldana APARTMENT MAINTENANCE MANAGER.ART PREPARATOR Work Phone: Gynecology Comment on above: Results Start: 01-22-2022 End: 01-22-2022 ambulatory Joseluis Perez MD Work Phone: Gynecology Comment on above: Malignant neoplasm o f endometrium (HCC) (Primary Dx); Periaortic lymphadenopathy; Dysuria Start: 01-22-2022 End: 01-22-2022 Patient encounter procedure Joseluis Perez MD Work Phone: [facility] Start: 01-21-2022 ambulatory Joseluis Perez MD Work Phone: [facility] Start: 01-21-2022 Patient encounter procedure Joseluis Perez MD Work Phone: Gynecology Oncology Comment on above: Question about Appoi ntment on 01/22 Start: 01-16-2022 Refill Naya Dash APARTMENT MAINTENANCE MANAGER .ART PREPARATOR Work Phone: Internal Medicine [place] Comment on above: Refill Request Start: 01-12-2022 Telephone encounter Ellen Dash APARTMENT MAINTENANCE MANAGER.ART PREPARATOR Work Phone: Internal Medicine [place] Comment on above: Orders Start: 01-09-2022 Patient encounter procedure Rosmery Horn Work Phone: [facility] Work Phone: Start: 01-08-2022 Telephone encounter Yodit Garcia APARTMENT MAINTENANCE MANAGER.ART PREPARATOR Work Phone: Neurology Comment on above: Orders Start: 01-07-2022 End: 01-07-2022 Patient encounter procedure Peter Soto MD Work Phone: Ophthalmology Comment on above: 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, severe stage (Primary Dx); Primary open angle glaucoma (POAG) of left eye, moderate stage; Glaucomatous optic atrophy, bilateral; Visual field loss; Stable central retinal vein occlusion of right eye; Multiple sclerosis (HCC) Start: 01-05-2022 End: 01-06-2022 Telemedicine consultation with patient Joseluis Perez MD Work Phone: [facility] Start: 01-05-2022 End: 01-06-2022 ambulatory Joseluis Perez MD Work Phone: Gynecology Oncology Comment on above: Malignant neoplasm o f endometrium (HCC) (Primary Dx); Periaortic lymphadenopathy Rosita Kennedy Start: 01-05-2022 End: 01-05-2022 Patient encounter procedure Nenita Solorio MD Work Phone: Radiation Oncology Comment on above: Malignant neoplasm o f endometrium (HCC) Start: 01-01-2022 End: 01-01-2022 ambulatory Joseluis Perez MD Work Phone: Gynecology Comment on above: Malignant neoplasm o f endometrium (HCC) (Primary Dx); Periaortic lymphadenopathy Start: 01-01-2022 End: 01-01-2022 Telemedicine consultation with patient Joseluis Perez MD Work Phone: [facility] Start: 12-30-2021 Patient encounter procedure Rosmery Horn Work Phone: [facility] [place] Work Phone: Start: 12-26-2021 Patient encounter procedure Rosmery Horn [facility] Work Phone: Start: 12-24-2021 ambulatory Joseluis Perez MD Work Phone: [facility] Start: 12-24-2021 Patient encounter procedure Joseluis Perez MD Work Phone: Gynecology Comment on above: Can We Move [facility] ent on 01/01 to Virtual Start: 12-23-2021 Patient encounter procedure Rosmery Horn Work Phone: [facility] Work Phone: Start: 12-22-2021 End: 12-22-2021 Subsequent hospital visit by physician Pet [facility] Comment on above: History of uterine c ancer [Z85.42] Start: 12-15-2021 End: 12-15-2021 Subsequent hospital visit by physician [facility] Work Phone: Cat Scan Comment on above: Malignant neoplasm o f endometrium (HCC) [C54.1] Start: 12-05-2021 Patient encounter procedure [facility]y Horn [facility] [place] Work Phone: Start: 12-04-2021 ambulatory Rosmery Casas Work Phone: [facility] Start: 12-04-2021 Follow-up encounter Rosmery mcgee MD Work Phone: Internal Medicine [place] Comment on above: Follow-up Start: 12-03-2021 Refill Peter mcgee MD Work Phone: Ophthalmology Comment on above: Refill Request Start: 11-14-2021 Telephone encounter Naya Older APARTMENT MAINTENANCE MANAGER.ART PREPARATOR Work Phone: Internal Medicine [place] Comment on above: Patient Update Start: 11-05-2021 End: 11-05-2021 Emergency department patient visit Pedro Luis Isaac [facility] Emergency 10 Start: 11-05-2021 End: 11-05-2021 Emergency department patient visit Ramónlc Jeter [facility] Start: 2020 End: 2020 Subsequent hospital visit by physician Xr [facility] [place] Work Phone: Radiology Comment on above: Hip pain [M25.559] Start: 10-05-2020 End: 10-05-2020 Orders Only Britni Ballarddavid Curran Work Phone: [facility] Start: 12-15-2018 End: 12-15-2018 Home visit Isis [facility] Comment on above: CASE COMMUNICATION Start: 12-15-2018 Patient encounter procedure ISIS BURDICK [facility] Start: 12-13-2018 End: 12-13-2018 Patient encounter procedure JIMMY PIZARRO [facility] Start: 12-10-2018 End: 12-10-2018 Home visit Alberto L Devin [facility] Comment on above: TELEPHONE ENCOUNTER Start: 12-10-2018 Patient encounter procedure ALBERTO ESTRADA [facility] Start: 10-07-2018 End: 10-07-2018 Home visit Jade Gautam [facility] Comment on above: PT NON-OASIS/DISCIPL INE DISCHARGE Start: 10-06-2018 End: 10-06-2018 Home visit Isis Burdick [facility] Comment on above: SN HH OASIS DISCHARG E Start: 10-05-2018 End: 10-05-2018 Home visit Teja Pardo [facility] Comment on above: OPTOMETRY TEACHER ROUTINE VISIT Start: 10-03-2018 End: 10-03-2018 Home visit Teja Pardo [facility] Comment on above: OPTOMETRY TEACHER ROUTINE VISIT Start: 09-30-2018 End: 09-30-2018 Home visit Teja Pardo [facility] Comment on above: OPTOMETRY TEACHER MISSED VISIT Start: 09-30-2018 Patient encounter procedure TEJA PARDO [facility] Start: 09-27-2018 End: 09-27-2018 Home visit Teja Pardo [facility] Comment on above: OPTOMETRY TEACHER ROUTINE VISIT Start: 09-26-2018 End: 09-26-2018 Home visit Teja Pardo [facility] Comment on above: OPTOMETRY TEACHER ROUTINE VISIT Start: 09-23-2018 End: 09-23-2018 Home visit Teja Pardo [facility] Comment on above: OPTOMETRY TEACHER ROUTINE VISIT CASE COMMUNICATION OT INITIAL EVALUATIO N Start: 09-23-2018 Patient encounter procedure AMY VENEGAS [facility] Start: 09-22-2018 End: 09-22-2018 Home visit Isis Burdick [facility] Comment on above: CASE COMMUNICATION Start: 09-22-2018 Patient encounter procedure ISIS [facility] Start: 09-21-2018 End: 09-21-2018 Home visit Teja Pardo [facility] Comment on above: OPTOMETRY TEACHER ROUTINE VISIT SN HH OASIS START OF CARE Start: 09-19-2018 End: 09-19-2018 Home visit Florencio Childs [facility] Comment on above: CASE COMMUNICATION OPTOMETRY TEACHER ROUTINE VISIT Start: 09-19-2018 Patient encounter procedure FLORENCIO Ivone [facility] Start: 09-16-2018 End: 09-16-2018 Admission to [facility] Jimmy Pizarro [facility] Start: 09-16-2018 End: 10-06-2018 Patient encounter procedure NOAM FREEMAN [facility] Start: 09-16-2018 End: 09-16-2018 Home visit Jade Gautam [facility] Comment on above: PT INITIAL EVALUATIO N Start: 09-08-2018 Patient encounter procedure ESTELA COSBY [facility] Start: 09-01-2018 End: 09-01-2018 Patient encounter procedure Jena Abernathydejon [facility] Start: 06-21-2018 End: 06-21-2018 Patient encounter procedure NOAM FREEMAN Facility:[facility] Procedures Date Procedure Procedure Detail Performing Clinician Start: 02-13-2025 Urinalysis microscopic panel - Urine Qualitative by Automated Bahman Ann DO Work Phone: Start: 02-13-2025 Urnls dip stick/tablet reagent auto microscopy Bahman Ann DO Work Phone: Start: 08-19-2024 Radiologic exam chest 2 views Pamela Essence PA-C Work Phone: Start: 08-17-2024 POCT SARS-COV-2/FLU/RSV PCR SYMPTOMATIC Lindsey Crisostomo APARTMENT MAINTENANCE MANAGER-ART PREPARATOR Work Phone: Start: 08-08-2024 Urnls dip stick/tablet rgnt non-auto w/o micrscp Lindsey Crisostomo APARTMENT MAINTENANCE MANAGER-[facility] Work Phone: Start: 04-17-2024 Gluc bld gluc mntr dev cleared fda spec home use [facility] Provider Start: 02-25-2024 Ct abdomen & pelvis w/contrast material Bahman Ann DO Work Phone: Start: 02-25-2024 Ct head/brain w/o contrast material Bahman Ann DO Work Phone: Start: 02-25-2024 Urinalysis microscopic panel - Urine Qualitative by Automated Bahman Ann DO Work Phone: Start: 02-25-2024 Urnls dip stick/tablet reagent auto microscopy Bahman Ann DO Work Phone: Start: 02-25-2024 Comprehensive metabolic panel Bahman Ann DO Work Phone: Start: 02-25-2024 Ecg routine ecg w/least 12 lds trcg only w/o i&r Bahman Ann DO Work Phone: Start: 12-03-2023 Bacteria identified in Urine by Culture ROSMERY HORN Start: 09-02-[address] Bernardino Min Work Phone: Start: 07-09-2023 Thyrotropin [Units/volume] in Serum or Plasma Terry Espino MD Work Phone: Start: 07-04-[address] Bernardino Min Work Phone: Start: 07-04-[address] Bernardino Min Work Phone: Start: 06-28-[address] Bernardino Min Work Phone: Start: 06-26-2023 CT of head without contrast Start: 06-26-2023 SARS-CoV-2 & FLU Antigen (Rapid) Start: 06-25-2023 Blood count complete auto&auto difrntl wbc Rashad Carson MD Work Phone: Start: 06-11-2023 Blood count complete auto&auto difrntl wbc Domo Frazier DO Work Phone: Start: 05-20-[address] attenuation skull base mid-thigh Racheal Saldana APARTMENT MAINTENANCE MANAGER.ART PREPARATOR Work Phone: Start: 03-12-2023 Plain chest X-ray Start: 03-12-2023 Blood count complete auto&auto difrntl wbc Joseluis Perez MD Work Phone: Start: 03-04-2023 Dup-scan xtr veins unilateral/limited study Domenic Cramer APARTMENT MAINTENANCE MANAGER.ART PREPARATOR Work Phone: Start: 02-17-2023 Gluc bld gluc mntr dev cleared fda spec home use [facility] Provider Start: 08-31-2022 Plain chest X-ray Start: 06-12-[address] attenuation skull base mid-thigh Naila Youngblood MD Work Phone: Start: 06-12-2022 Gluc bld gluc mntr dev cleared fda spec home use [facility] Provider Start: 05-01-2022 Fundus photography w/interpretation & report Peter Soto MD Work Phone: Start: 04-29-2022 Adult depression screening assessment Peter Soto MD Work Phone: Start: 04-08-2022 Urnls dip stick/tablet rgnt auto w/o microscopy Jania Panda PA-C Work Phone: Start: 03-23-2022 Urnls dip stick/tablet rgnt auto w/o microscopy Frank Gross MD Work Phone: Start: 02-12-2022 Urnls dip stick/tablet reagent auto microscopy Rosmery Horn MD Work Phone: Start: 02-12-2022 Blood count complete auto&auto difrntl wbc Rosmery Horn MD Work Phone: Start: 02-12-2022 Lipid panel Bulk Order Provider Start: 02-12-2022 Lipid 1996 panel - Serum or Plasma [facility] [place] Work Phone: Start: 01-22-2022 Urnls dip stick/tablet reagent auto microscopy Joseluis Perez MD Work Phone: Start: 01-21-2022 Adult depression screening assessment Joseluis Perez MD Work Phone: Start: 12-22-2021 Gluc bld gluc mntr dev cleared fda spec home use [facility] Provider Start: 10-30-2021 Mammography Rosmery Horn MD Work Phone: Start: 02-17-2021 Adult depression screening assessment Rosmery Horn MD Work Phone: Start: 2020 Radex hips bilateral with pelvis minimum 5 views Rosmery Horn MD Work Phone: Start: 11-26-2020 H/O: surgery S/P eye surgery Rosmery Horn MD Work Phone: Start: 04-24-2020 Colonoscopy Rosmery Horn MD Work Phone: Start: 11-22-2014 History of cataract extraction S/P laser cataract surgery Rosmery Horn MD Work Phone: History of cataract extraction History of cataract surgery Rosmery Horn Other Phone: History of radiation therapy S/P radiation therapy Joseluis Perez MD Work Phone: History of radiation therapy S/P radiation therapy Joseluis Perez MD Work Phone: Measurement of occul t blood in stool specimen using immunoassay MD Rosmery Horn Measurement of occul t blood in stool specimen using immunoassay MD Rosmery Horn Respiratory Panel (PCR) MD Ethan Horn Respiratory Panel (PCR) MD Ethan Horn SARS-CoV-2 & FLU Ant igen (Rapid) Urine culture MD Rosmery bustamante Viral antigen assay MD Lon Horn Viral antigen assay MD Lon Horn Viral antigen assay MD Lon Horn Viral antigen assay MD Lon Horn Plan of Treatment Date Care Activity Detail Author Start: 10-29-2031 DTaP/Tdap/Td Vaccines (2 - Td or Tdap) DTaP/Tdap/Td Vaccines (2 - Td or Tdap) [facility] Start: 10-29-2031 Urine microalbumin profile DTaP,Tdap,Td Vaccine (2 - Td or Tdap) [facility] Start: 04-24-2030 Colonoscopy COLONOSCOPY [facility] Start: 04-24-2030 COLORECTAL CANCER SCREENING COLORECTAL CANCER SCREENING [facility] Start: 04-24-2030 Screening for malignant neoplasm of colon [facility] Start: 02-24-2027 Diabetes Screening Diabetes Screening [facility] Start: 02-12-2027 Lipid 1996 panel - Serum or Plasma Lipid Screening [facility] Start: 02-12-2027 Lipid panel Lipid Screening [facility] Start: 02-12-2027 LIPID SCREEN LIPID SCREEN [facility] Start: 09-27-2026 Diabetes Screening Diabetes Screening [facility] Start: 07-09-2026 Diabetes Screening Diabetes Screening [facility] Start: 06-25-2026 Diabetes Screening Diabetes Screening [facility] Start: 06-11-2026 Diabetes Screening Diabetes Screening [facility] Start: 03-19-2026 DIABETES SCREEN DIABETES SCREEN [facility] Start: 03-19-2026 Diabetes Screening Diabetes Screening [facility] Start: 03-04-2026 DIABETES SCREEN DIABETES SCREEN [facility] Start: 2025 LIPID SCREEN LIPID SCREEN [facility] Start: 08-28-2025 DIABETES SCREEN DIABETES SCREEN [facility] Start: 08-03-2025 DIABETES SCREEN DIABETES SCREEN [facility] Start: 04-30-2025 Influenza vaccination Influenza Vaccine (#1) [facility] Start: 04-19-2025 End: 04-19-2025 ambulatory 04/19/2025 2:30 PM EDT Infusion [facility] [address] [place] [phone] [facility] Start: 04-14-2025 DIABETES SCREEN DIABETES SCREEN [facility] Start: 03-08-2025 End: 03-08-2025 ambulatory 03/08/2025 3:00 PM EDT Infusion [facility] [address] [place] [phone] [facility] Start: 02-12-2025 DIABETES SCREEN DIABETES SCREEN [facility] Start: 01-23-2025 End: 01-23-2025 ambulatory 01/23/2025 11:00 AM EDT Infusion [facility] [address] [place] [phone] [facility] Start: 12-12-2024 End: 12-12-2024 ambulatory 12/12/2024 11:00 AM EDT Infusion [facility] [address] [place] [phone] [facility] Start: 11-12-2024 DIABETES SCREEN DIABETES SCREEN [facility] Start: 11-02-2024 COVID-19 Vaccine ( season) COVID-19 Vaccine ( season) [facility] Start: 10-31-2024 End: 10-31-2024 ambulatory 10/31/2024 11:00 AM EST Infusion [facility] [address] [place] [phone] [facility] Start: 09-19-2024 End: 09-19-2024 ambulatory 09/19/2024 11:00 AM EST Infusion [facility] [address] [place] [phone] [facility] [place] Start: 08-30-2024 Advance Directive Discussion Advance Directive Discussion [facility] Start: 08-30-2024 Medicare Advantage Annual Wellness Visit Medicare [facility] Annual Wellness Visit [facility] Start: 08-08-2024 End: 08-15-2024 Bacteria identified in Urine by Culture [facility] Service Area Work Phone: Comment on above: Expected: 08/08/2024 (Approximate), Expi res: 08/15/2024 Start: 07-09-2024 Thyroid stimulating hormone measurement TSH Level [facility] Start: 05-25-2024 End: 05-25-2024 Patient encounter procedure 05/25/2024 2:00 PM EDT Office Visit [facility]/Gynecology [address] [place] [address] Franklin Salmon MD [address] [address] follow up [facility]Gynecology Comment on above: follow up Start: 04-30-2024 Covid-19 Vaccine ( season) Covid-19 Vaccine () [facility] Start: 04-30-2024 Influenza vaccination Influenza Vaccine (#1) [facility] Start: 02-09-2024 End: 02-09-2024 Patient encounter procedure 02/09/2024 3:00 PM EDT Office Visit POLITICAL RESEARCH SCIENTIST REECE LUCAS [address] [place] [address] Franklin Salmon MD [address] [address] POST OP 4-6 WEEKS POLITICAL RESEARCH SCIENTIST UROL NAKUL LUCAS Comment on above: POST OP 4-6 WEEKS Start: 01-20-2024 End: 01-20-2024 Patient encounter procedure 01/20/2024 1:30 PM EDT Office Visit URO/Gynecology [address] [place] [id number] Franklin Salmon MD [address] [address] Cysto w/Botox URO/Gynecology Comment on above: Cysto w/Botox Start: 01-17-2024 End: 04-17-2024 Bacteria identified in Urine by Culture URINE CULTURE Microbiology Routine UTI symptoms Expected: 01/17/2024 (Approximate), Expires: 04/17/2024 [facility] Work Phone: Comment on above: Expected: 01/17/2024 (Approximate), Expi res: 04/17/2024 Start: 01-11-2024 End: 01-11-2024 Admission to same day surgery center 01/11/2024 12:00 PM EDT - 01/11/2024 1:30 PM EDT Surgery [facility] [address] [place] [address] Franklin Salmon MD [address] [id number] BIOPSY BLADDER [facility] Comment on above: BIOPSY BLADDER Start: 01-11-2024 End: 01-11-2024 Cystourethroscopy inj chemodenervation bladder CYSTOURETHROSCOPY W/INJECTION(S) FOR CHEMODENERVATION OF THE BLADDER Radiation cystitis OAB (overactive bladder) 01/11/2024 12:00 PM EDT [facility] OR Start: 01-11-2024 End: 01-11-2024 Cystourethroscopy with biopsy BIOPSY BLADDER Radiation cystitis OAB (overactive bladder) 01/11/2024 12:00 PM EDT [facility] OR Start: 01-11-2024 Subsequent hospital visit by physician 01/11/2024 12:00 PM EDT Hospital Encounter [facility] [address] [place] [address] Franklin Salmon MD [address] [id number] Radiation cystitis [N30.40] [facility] Comment on above: 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 [place] [id number] 1, Pacc [place] [address] [place] [id number] PRE OP Pre Anesthesia Comment on above: PRE OP Start: 12-01-2023 End: 03-01-2024 Bacteria identified in Urine by Culture URINE CULTURE Microbiology Routine Urinary urgency Expected: 12/01/2023 (Approximate), Expires: 03/01/2024 [facility] Work Phone: Comment on above: Expected: 12/01/2023 (Approximate), Expi res: 03/01/2024 Start: 11-28-2023 COLOGUARD (FIT-DNA) COLOGUARD (FIT-DNA) [facility] Start: 11-28-2023 Screening for malignant neoplasm of colon Cologuard (FIT-DNA) [facility] Start: 10-09-2023 COVID-19 Vaccine () COVID-19 Vaccine () [facility] Start: 09-29-2023 Medicare Annual Wellness Visit Medicare Annual Wellness Visit (AWV) [facility] Start: 08-30-2023 Advance Directive Discussion Advance Directive Discussion [facility] Start: 08-30-2023 Behavioral Health Screening Behavioral Health Screening [facility] Start: 08-30-2023 Depression Assessment Depression Assessment [facility] Start: 08-28-2023 ANNUAL PCP TEAM CHRONIC DISEASE VISIT ANNUAL PCP TEAM CHRONIC DISEASE VISIT [facility] Start: 08-03-2023 ANNUAL PCP TEAM CHRONIC DISEASE VISIT ANNUAL PCP TEAM CHRONIC DISEASE VISIT [facility] Start: 08-03-2023 Covid-19 Vaccine () Covid-19 Vaccine () [facility] Start: 07-09-2023 Patient discharge [facility] Start: 07-08-2023 Development of care plan [facility] Start: 07-05-2023 Referral to service [facility] Start: 06-30-2023 Development of care plan [facility] Start: 06-30-2023 Speech therapy management [facility] Start: 06-30-2023 Developing a treatment plan [facility] Start: 06-30-2023 Speech therapy assessment [facility] Start: 06-29-2023 Admission procedure [facility] Start: 06-29-2023 Measuring intake and output [facility] Start: 06-29-2023 Patient referral to dietitian [facility] Start: 06-29-2023 Referral to occupational therapist [facility] Start: 06-29-2023 Referral to service [facility] Start: 06-29-2023 Vital signs measurements [facility] Start: 06-29-2023 [facility] Start: 06-29-2023 Venous catheter care management [facility] Start: 06-29-2023 Patient discharge [facility] Start: 06-28-2023 Urine culture Urine Culture [facility] Start: 06-28-2023 [facility] Start: 06-27-2023 Consultation for treatment [facility] Start: 06-27-2023 Following clinical pathway protocol [facility] Start: 06-27-2023 Assessment of risk of venous thromboembolism [facility] Start: 06-27-2023 Insertion of catheter into peripheral vein [facility] Start: 06-27-2023 Providing care according to standard [facility] Start: 06-27-2023 Referral to occupational therapist [facility] Start: 06-27-2023 Referral to service [facility] Start: 06-27-2023 [facility] Start: 06-27-2023 Patient referral to dietitian [facility] Start: 06-26-2023 Verification routine [facility] Start: 06-26-2023 Hospital admission, emergency, from emergency room, medical nature [facility] Start: 06-26-2023 Admission procedure [facility] Start: 05-30-2023 ANNUAL PCP TEAM CHRONIC DISEASE VISIT ANNUAL PCP TEAM CHRONIC DISEASE VISIT [facility] Start: 04-30-2023 Influenza vaccination INFLUENZA (#1) [facility] Start: 04-29-2023 Adult depression screening assessment DEPRESSION SCREENING [facility] Start: 04-14-2023 ANNUAL PCP TEAM CHRONIC DISEASE VISIT ANNUAL PCP TEAM CHRONIC DISEASE VISIT [facility] Start: 04-14-2023 FECAL OCCULT BLOOD FECAL OCCULT BLOOD [facility] Start: 04-14-2023 Screening for malignant neoplasm of colon Fecal Occult Blood [facility] Start: 03-25-2023 COVID-19 VACCINE (8 - Moderna risk series) COVID-19 VACCINE (8 - Moderna risk series) [facility] Start: 03-18-2023 End: 05-18-2023 CBC W Auto Differential panel - Blood CBC + DIFF Lab Routine Malignant neoplasm of uterus, unspecified site (HCC) Expected: 03/18/2023, Expires: 05/18/2023 [facility] Work Phone: Comment on above: Expected: 03/18/2023, Expires: Start: 03-12-2023 Blood chemistry [facility] Start: 03-12-2023 End: 03-12-2023 [facility] Start: 03-12-2023 Chemotherapy care management [facility] Start: 01-30-2023 ANNUAL PCP TEAM CHRONIC DISEASE VISIT ANNUAL PCP TEAM CHRONIC DISEASE VISIT [facility] Start: 01-21-2023 Adult depression screening assessment DEPRESSION SCREENING [facility] Start: 11-12-2022 ANNUAL PCP TEAM CHRONIC DISEASE VISIT ANNUAL PCP TEAM CHRONIC DISEASE VISIT [facility] Start: 10-30-2022 Mammography MAMMOGRAM [facility] Start: 10-24-2022 Blood chemistry [facility] Start: 10-17-2022 Blood chemistry [facility] Start: 10-10-2022 Blood chemistry [facility] Start: 10-03-2022 Blood chemistry [facility] Start: 10-02-2022 Blood chemistry [facility] Work Phone: Start: 09-26-2022 Blood chemistry [facility] Start: 09-25-2022 Blood chemistry [facility] Work Phone: Start: 09-21-2022 Development of care plan [facility] Start: 09-19-2022 End: 07-19-2023 NM PET/CT SKULL-THIGH SUBSEQUENT NM PET/CT SKULL-THIGH SUBSEQUENT Radiology Routine Malignant neoplasm of endometrium (HCC) Expected: 09/19/2022, Expires: 07/19/2023 [facility] Work Phone: Comment on above: Expected: 09/19/2022, Expires: Start: 09-19-2022 Patient discharge [facility] Start: 09-18-2022 Referral to service [facility] Start: 09-18-2022 Blood chemistry [facility] Work Phone: Start: 09-16-2022 Speech therapy management [facility] Start: 09-16-2022 Speech therapy assessment [facility] Start: 09-12-2022 Development of care plan [facility] Start: 09-12-2022 Developing a treatment plan [facility] Start: 09-11-2022 Admission procedure [facility] Start: 09-11-2022 Measuring intake and output [facility] Start: 09-11-2022 Patient referral to dietitian [facility] Start: 09-11-2022 Referral to occupational therapist [facility] Start: 09-11-2022 Referral to service [facility] Start: 09-11-2022 Vital signs measurements [facility] Start: 09-11-2022 End: 09-11-2022 [facility] Start: 09-11-2022 Following clinical pathway protocol [facility] Start: 09-11-2022 Patient discharge [facility] Start: 09-11-2022 [facility] Start: 09-11-2022 Blood chemistry [facility] Work Phone: Start: 09-10-2022 Notification of physician [facility] Start: 09-10-2022 Provision of activity privileges [facility] Start: 09-10-2022 Taking patient vital signs [facility] Start: 09-10-2022 Vascular disease risk assessment [facility] Start: 09-10-2022 [facility] Start: 09-09-2022 Catheterization of vein [facility] Start: 09-09-2022 Medication not administered [facility] Start: 09-09-2022 Notification of physician [facility] Start: 09-09-2022 End: 09-09-2022 Preoperative care [facility] Start: 09-09-2022 [facility] Start: 09-08-2022 Notification of physician [facility] Start: 09-08-2022 Provision of activity privileges [facility] Start: 09-08-2022 Taking patient vital signs [facility] Start: 09-08-2022 Vascular disease risk assessment [facility] Start: 09-08-2022 [facility] Start: 09-07-2022 Ambulation without limitation [facility] Start: 09-07-2022 Assessment of risk of venous thromboembolism [facility] Start: 09-07-2022 Incentive spirometry [facility] Start: 09-07-2022 Insertion of catheter into peripheral vein [facility] Start: 09-07-2022 Measuring intake and output [facility] Start: 09-07-2022 Oxygen therapy [facility] Start: 09-07-2022 Providing care according to standard [facility] Start: 09-07-2022 Provision of activity privileges [facility] Start: 09-07-2022 [facility] Start: 09-07-2022 Admission procedure [facility] Start: 09-07-2022 Following clinical pathway protocol [facility] Start: 09-07-2022 Development of care plan [facility] Start: 09-07-2022 Patient discharge [facility] Start: 09-07-2022 Patient referral to [facility] Start: 09-04-2022 Developing a treatment plan [facility] Start: 09-04-2022 Development of care plan [facility] Start: 09-04-2022 [facility] Work Phone: Start: 09-04-2022 [facility] Start: 09-04-2022 Following clinical pathway protocol [facility] Start: 09-03-2022 Admission procedure [facility] Start: 09-03-2022 Measuring intake and output [facility] Start: 09-03-2022 Patient referral to dietitian [facility] Start: 09-03-2022 Referral to occupational therapist [facility] Start: 09-03-2022 Referral to service [facility] Start: 09-03-2022 Vital signs measurements [facility] Start: 09-03-2022 [facility] Start: 09-03-2022 Patient discharge [facility] Start: 09-03-2022 Patient referral to dietitian [facility] Start: 09-03-2022 [facility] Start: 09-01-2022 Referral to vascular surgeon [facility] Start: 08-31-2022 Assessment of risk of venous thromboembolism [facility] Start: 08-31-2022 Incentive spirometry [facility] Start: 08-31-2022 Insertion of catheter into peripheral vein [facility] Start: 08-31-2022 Patient referral to dietitian [facility] Start: 08-31-2022 Providing care according to standard [facility] Start: 08-31-2022 Referral to occupational therapist [facility] Start: 08-31-2022 Referral to service [facility] Start: 08-31-2022 [facility] Start: 08-31-2022 Measurement of occult blood in stool specimen using immunoassay [facility] Work Phone: Start: 08-31-2022 Verification routine [facility] Work Phone: Start: 08-31-2022 Admission procedure [facility] Start: 08-31-2022 Venous catheter care management [facility] Start: 08-30-2022 ADVANCE DIRECTIVE DISCUSSION ADVANCE DIRECTIVE DISCUSSION [facility] Start: 08-30-2022 DEPRESSION ASSESSMENT DEPRESSION ASSESSMENT [facility] Start: 08-03-2022 End: 10-03-2022 25-hydroxyvitamin D3 [Mass/volume] in Serum or Plasma [facility] Work Phone: Comment on above: Expected: 08/03/2022, Expires: 3 Start: 08-03-2022 End: 10-03-2022 Basic metabolic 2000 panel - Serum or Plasma [facility] Work Phone: Comment on above: Expected: 08/03/2022, Expires: 3 Start: 08-03-2022 End: 10-03-2022 CBC W Auto Differential panel - Blood [facility] Work Phone: Comment on above: Expected: 08/03/2022, Expires: 3 Start: 08-03-2022 End: 10-03-2022 Cobalamin (Vitamin B12) [Mass/volume] in Serum or Plasma [facility] Work Phone: Comment on above: Expected: 08/03/2022, Expires: 3 Start: 08-03-2022 End: 10-03-2022 Magnesium [Mass/volume] in Serum or Plasma [facility] Work Phone: Comment on above: Expected: 08/03/2022, Expires: 3 Start: 08-03-2022 End: 10-03-2022 Thyrotropin [Units/volume] in Serum or Plasma [facility] Work Phone: Comment on above: Expected: 08/03/2022, Expires: 3 Start: 05-30-2022 End: 07-30-2022 Magnesium [Mass/volume] in Serum or Plasma [facility] Work Phone: Comment on above: Expected: 05/30/2022, Expires: 2 Start: 05-30-2022 End: 07-30-2022 Thyrotropin [Units/volume] in Serum or Plasma [facility] Work Phone: Comment on above: Expected: 05/30/2022, Expires: 2 Start: 04-30-2022 Influenza vaccination [facility] Start: 04-14-2022 End: 06-14-2022 Clostridioides difficile toxin genes [Presence] in Stool by NURYS with probe detection [facility] Work Phone: Comment on above: Expected: 04/14/2022, Expires: 2 Start: 04-14-2022 End: 06-14-2022 Hemoglobin.gastrointestina l.lower [Presence] in Stool by Immunoassay [facility] Work Phone: Comment on above: Expected: 04/14/2022, Expires: 2 Start: 04-01-2022 Urine microalbumin profile DTAP,TDAP,TD (1 - Tdap) [facility] Comment on above: Postponed from 11/26/1966 (Declined at t his time) Start: 03-12-2022 End: 05-12-2022 Bacteria identified in Urine by Culture URINE CULTURE Microbiology Routine Acute cystitis without hematuria Expected: 03/12/2022 (Approximate), Expires: 05/12/2022 [facility] Work Phone: Comment on above: Expected: 03/12/2022 (Approximate), Expi res: 05/12/2022 Start: 02-17-2022 Adult depression screening assessment DEPRESSION SCREENING [facility] Start: 02-13-2022 PTRECHECKBerna, Provider: Tiffanie Bledsoe, Status: Pen, Time: 10:45 AM PTRECHECKBerna, Provider: Tiffanie Bledsoe, Status: Pen, Time: 10:45 AM [facility] Work Phone: Start: 02-11-2022 [email or web address], Provider: Montserrat Vaughan, Status: Pen, Time: 10:45 AM PTFUADULT4, Provider: Montserrat Vaughan, Status: Pen, Time: 10:45 AM [facility] Work Phone: Start: 02-06-2022 [email or web address], Provider: Tiffanie Bledsoe, Status: Pen, Time: 10:45 AM PTFUADULT4, Provider: Tiffanie Bledsoe, Status: Pen, Time: 10:45 AM [facility] Work Phone: Start: 02-04-2022 [email or web address], Provider: Montserrat Vaughan, Status: Pen, Time: 10:00 AM PTFUADULT4, Provider: Montserrat Vaughan, Status: Pen, Time: 10:00 AM [facility] Work Phone: Start: 01-30-2022 End: 04-01-2022 Bacteria identified in Urine by Culture URINE CULTURE Microbiology Routine Recurrent UTI Expected: 01/30/2022, Expires: 04/01/2022 [facility] Work Phone: Comment on above: Expected: 01/30/2022, Expires: 2 Start: 01-30-2022 End: 04-01-2022 CBC W Auto Differential panel - Blood CBC + DIFF Lab Routine Encounter for monitoring chronic NSAID therapy Expected: 01/30/2022, Expires: 04/01/2022 [facility] Work Phone: Comment on above: Expected: 01/30/2022, Expires: 2 Start: 01-30-2022 End: 04-01-2022 Comprehensive metabolic 2000 panel - Serum or Plasma COMP METABOLIC PANEL Lab Routine Encounter for monitoring chronic NSAID therapy Expected: 01/30/2022, Expires: 04/01/2022 [facility] Work Phone: Comment on above: Expected: 01/30/2022, Expires: 2 Start: 01-30-2022 End: 04-01-2022 Magnesium [Mass/volume] in Serum or Plasma MAGNESIUM BLD Lab Routine Hypokalemia Expected: 01/30/2022, Expires: 04/01/2022 [facility] Work Phone: Comment on above: Expected: 01/30/2022, Expires: 2 Start: 01-30-2022 End: 04-01-2022 Thyrotropin [Units/volume] in Serum or Plasma TSH BLD Lab Routine Hypothyroidism, unspecified type Expected: 01/30/2022, Expires: 04/01/2022 [facility] Work Phone: Comment on above: Expected: 01/30/2022, Expires: 2 Start: 01-30-2022 End: 04-01-2022 Urinalysis complete panel - Urine URINALYSIS, WITH MICROSCOPIC Lab Routine Recurrent UTI Expected: 01/30/2022, Expires: 04/01/2022 [facility] Work Phone: Comment on above: Expected: 01/30/2022, Expires: 2 Start: 01-30-2022 End: 04-01-2022 VITAMIN D 25 HYDROXY VITAMIN D 25 HYDROXY Lab Routine Vitamin D deficiency Expected: 01/30/2022, Expires: 04/01/2022 [facility] Work Phone: Comment on above: Expected: 01/30/2022, Expires: Start: 01-30-2022 [email or web address], Provider: Montserrat Vaughan, Status: Pen, Time: 10:00 AM PTFUADULT4, Provider: Montserrat Vaughan, Status: Pen, Time: 10:00 AM [facility]: Start: 01-28-2022 PTFUADULT4, Provider: Tiara Jose, Status: Pen, Time: 11:00 AM PTFUADULT4, Provider: Tiara Jose, Status: Pen, Time: 11:00 AM [facility] Work [facility]: Start: 01-23-2022 PTFUADULT4, Provider: Tiara Jose, Status: Pen, Time: 10:30 AM PTFUADULT4, Provider: Tiara Jose, Status: Pen, Time: 10:30 AM [facility] Work [facility]: Start: 01-21-2022 PTFUADULT4, Provider: Montserrat Vaughan, Status: Pen, Time: 10:45 AM PTFUADULT4, Provider: Montserrat Vaughan, Status: Pen, Time: 10:45 AM [facility] Work [facility]: Start: 01-09-2022 PTRECHECKA, Provider: Tiffanie Bledsoe, Status: Pen, Time: 2:15 PM PTRECHECKA, Provider: Tiffanie Bledsoe, Status: Pen, Time: 2:15 PM [facility] Start: 01-05-2022 PTFUADULT4, Provider: Tiffanie Bledsoe, Status: Pen, Time: 11:45 AM PTFUADULT4, Provider: Tiffanie Bledsoe, Status: Pen, Time: 11:45 AM Rehab [facility] Work Phone: Start: 01-02-2022 PTFUADULT4, Provider: Tiffanie Bledsoe, Status: Pen, Time: 11:45 AM PTFUADULT4, Provider: Tiffanie Bledsoe, Status: Pen, Time: 11:45 AM [facility] Work [facility]: Start: 12-30-2021 PTFUADULT4, Provider: Christiano Cardoza, Status: Pen, Time: 10:45 AM PTFUADULT4, Provider: Christiano Cardoza, Status: Pen, Time: 10:45 AM [facility] Work Phone: Start: 12-29-2021 PTFUADULT4, Provider: Tiffanie Bledsoe, Status: Pen, Time: 11:45 AM PTFUADULT4, Provider: Tiffanie Bledsoe, Status: Pen, Time: 11:45 AM [facility] Work Phone: Start: 12-26-2021 PTFUADULT4, Provider: Tiffanie Bledsoe, Status: Pen, Time: 1:30 PM PTFUADULT4, Provider: Tiffanie Bledsoe, Status: Pen, Time: 1:30 PM [facility] Work Phone: Start: 12-22-2021 PTFUADULT4, Provider: Tiffanie Bledsoe, Status: Pen, Time: 11:45 AM PTFUADULT4, Provider: Tiffanie Bledsoe, Status: Pen, Time: 11:45 AM [facility] Work Phone: Start: 12-18-2021 PTFUADULT4, Provider: Christiano Cardoza, Status: Pen, Time: 1:15 PM PTFUADULT4, Provider: Christiano Cardoza, Status: Pen, Time: 1:15 PM [facility] Work [facility]: Start: 11-05-2021 End: 11-06-2022 Sodium Chloride 0.9% Infusion . ; IV Bag Volume = 1,000 mL Run at: 150 mL/hr IntraVenous Start: 05-Nov-2021 End: 05-Nov-2022 Ordered: 05-Nov-2021 Kwaku Olson [facility] Start: 08-30-2021 ADVANCE DIRECTIVE DISCUSSION ADVANCE DIRECTIVE DISCUSSION [facility] Start: 08-30-2021 DEPRESSION ASSESSMENT DEPRESSION ASSESSMENT [facility] Start: 05-01-2021 Diabetes mellitus screening Diabetes Screening [facility] Start: 02-10-2019 Screening for malignant neoplasm of cervix Cervical Cancer Screening [facility] Start: 10-14-2018 End: 10-14-2018 Home Care Visit 10/14/2018 Home Care Visit Home Health Services Jade Gautam PT [facility] Start: 10-12-2018 End: 10-12-2018 Home Care Visit 10/12/2018 Home Care Visit Home Health Services Teja Pardo PTA [facility] Start: 10-10-2018 End: 10-10-2018 Home Care Visit 10/10/2018 Home Care Visit Home Health Services Teja Pardo PTA [facility] Start: 10-07-2018 End: 10-07-2018 Home Care Visit 10/07/2018 Home Care Visit Home Health Services Teja Pardo PTA [facility] Start: 10-06-2018 End: 10-06-2018 Appointment 10/06/2018 Appointment Home Health Services Isis Burdick RN [facility] Start: 10-05-2018 End: 10-05-2018 Home Care Visit 10/05/2018 Home Care Visit Home Health Services Teja Pardo PTA [facility] Start: 10-03-2018 End: 10-03-2018 Home Care Visit 10/03/2018 Home Care Visit Home Health Services Teja Pardo PTA [facility] Start: 09-30-2018 End: 09-30-2018 Home Care Visit 09/30/2018 Home Care Visit Home Health Services Teja Pardo PTA [facility] Start: 09-28-2018 End: 09-28-2018 Home Care Visit 09/28/2018 Home Care Visit Home Health Services Teja Pardo PTA [facility] Start: 09-26-2018 End: 09-26-2018 Home Care Visit 09/26/2018 Home Care Visit Home Health Services EdvinTejaROLF [facility] Start: 09-23-2018 End: 09-23-2018 Home Care Visit [facility] Start: 09-21-2018 End: 09-22-2018 Home Care Visit [facility] Start: 06-11-2016 Pneumococcal vaccination Pneumococcal Vaccine (2 of 2 - PCV) [facility] Start: 06-11-2016 Pneumococcal Vaccine: 50+ (2 of 2 - PCV) Pneumococcal Vaccine: 50+ (2 of 2 - PCV) [facility] Start: 06-11-2016 Pneumococcal Vaccine: 65+ (2 of 2 - PCV) Pneumococcal Vaccine: 65+ (2 of 2 - PCV) [facility] Start: 06-11-2016 Pneumococcal Vaccine: 65+ (3 - PCV) Pneumococcal Vaccine: 65+ (3 - PCV) [facility] Start: 06-11-2016 Pneumococcal Vaccine: 65+ (3 of 3 - PCV) Pneumococcal Vaccine: 65+ (3 of 3 - PCV) [facility] Start: 06-11-2016 Pneumococcal Vaccine: 65+ Years (2 of 2 - PCV) Pneumococcal Vaccine: 65+ Years (2 of 2 - PCV) [facility] Start: 06-11-2016 PNEUMOCOCCAL: 65+ (2 - PCV) PNEUMOCOCCAL: 65+ (2 - PCV) [facility] Start: 06-11-2016 PNEUMOCOCCAL: 65+ (3 - PCV) PNEUMOCOCCAL: 65+ (3 - PCV) [facility] Start: 11-26-[address] COLONOGRAPHY [facility] Start: 11-26-1992 FECAL OCCULT BLOOD FECAL OCCULT BLOOD [facility] Start: 11-26-1992 Screening for malignant neoplasm of colon [facility] Start: 11-26-1992 SIGMOIDOSCOPY SIGMOIDOSCOPY [facility] Start: 11-26-1966 Urine microalbumin profile [place] Start: 11-26-1965 Depression Screening Depression Screening [facility] Start: 11-26-1965 Hepatitis C screening Hepatitis C Screening [facility] Start: 1945 Lipid panel Lipid Panel [facility] Start: 1945 Medicare Annual Wellness Visit Medicare Annual Wellness Visit (AWV) [facility] Start: 1945 Screening for osteoporosis Bone Density Scan [facility] 25-hydroxyvitamin D3 [Mass/volume] in Serum or Plasma VITAMIN D 25 HYDROXY Lab Routine Vitamin D deficiency 02/12/2022 12:42 PM EDT [facility] Work Phone: Bacteria identified in Urine by Culture URINE CULTURE Microbiology Routine Dysuria 01/22/2022 12:53 PM [facility] Work Phone: Bacteria identified in Urine by Culture URINE CULTURE Microbiology Routine Recurrent UTI 02/12/2022 12:56 PM [facility] Work Phone: Bacteria identified in Urine by Culture URINE CULTURE Microbiology Routine Dysuria 04/08/2022 5:56 PM [facility] Work Phone: End: 02-25-2024 Bacteria identified in Urine by Culture [facility] Work Phone: Comment on above: Once (Lab) for 1 Occurrences starting until 02/25/2024 End: 02-13-2025 Bacteria identified in Urine by Culture [facility] Work Phone: Comment on above: Once (Lab) for 1 Occurrences starting until 02/13/2025 BACTERIAL VAGINOSIS NAAT BACTERI AL VAGINOSIS NAAT Lab Routine Acute vulvitis 02/09/2024 4:27 PM [facility] GABRIELE/TRICHOMONAS NAAT GABRIELE /TRICHOMONAS NAAT Lab Routine Acute vulvitis 02/09/2024 4:27 PM [facility] Work Phone: Chronic hepatitis differentiation between hepatitis B and C virus panel - Serum or Plasma HEP REMOTE PANEL BL Lab Routine Endometrial cancer (HCC) 06/11/2023 9:51 AM [facility] Work Phone: Cortisol [Mass/volum e] in Serum or Plasma CORTISOL BLD Lab Routine Endometrial cancer (HCC) Acquired hypothyroidism 06/11/2023 8:54 AM [facility] Work Phone: Cortisol [Mass/volum e] in Serum or Plasma CORTISOL BLD Lab Routine Malignant neoplasm of uterus, unspecified site (HCC) Chronic deep vein thrombosis (DVT) of proximal vein of left lower extremity (HCC) Malaise and fatigue 06/25/2023 1:07 PM EDT [facility] Work Phone: Ct abdomen & pelvis w/contrast material CT ABD/PEL W IVCON Radiology Routine Malignant neoplasm of endometrium (HCC) 12/15/2021 3:29 PM EDT [facility] Work Phone: Ct thorax w/contrast material CT CHEST W IVCON Radiology Routine Malignant neoplasm of endometrium (HCC) 12/15/2021 3:29 PM EDT [facility] Work Phone: CYSTOSCOPY WHI CYSTOSCOPY WHI P rocedures Routine Microscopic hematuria Cystitis Ordered: 10/06/2023 [facility] Work Phone: Comment on above: Ordered: 10/06/2023 CYSTOSCOPY WHI CYSTOSCOPY WHI P rocedures Routine Urge urinary incontinence Ordered: 12/01/2023 [facility] Work Phone: Comment on above: Ordered: 12/01/2023 Cystourethroscopy CYSTO.PANENDO Procedures Routine Acute cystitis without hematuria Ordered: 03/23/2022 [facility] Work Phone: Comment on above: Ordered: 03/23/2022 ECG 12 lead ECG 12 lead ECG STAT 02/25/2024 12:50 PM EDT [facility] Work Phone: End: 02-26-2024 Echocardiography ECHO Cardiology Routine Endometrial cancer (HCC) Encounter for monitoring cardiotoxic drug therapy 1 Occurrences starting 02/25/2023 until 02/26/2024 [facility] Work Phone: Comment on above: 1 Occurrences starting 02/25/2023 until 02/26/2024 End: 02-25-2024 Extra Urine Tejada Tube [facility] Work Phone: Comment on above: Once for 1 Occurrences starting 02/25/20 until 02/25/2024 End: 02-13-2025 Extra Urine Tejada Tube [facility] Work Phone: Comment on above: Once for 1 Occurrences starting 02/14/20 until 02/13/2025 Hepatitis B virus co re Ab [Presence] in Serum HEP B CORE AB TOTAL Lab Routine Endometrial cancer (HCC) 06/11/2023 9:51 AM EDT [facility] Work Phone: Hepatitis B virus ballard rface Ab [Presence] in Serum HEP B SURF AB Lab Routine Endometrial cancer (HCC) 06/11/2023 9:51 AM EDT [facility] Work Phone: Hepatitis B virus ballard rface Ag [Presence] in Serum HEP B SURF AG SCRN Lab Routine Endometrial cancer (HCC) 06/11/2023 9:51 AM EDT [facility] Work Phone: Hepatitis C virus Ab [Presence] in Serum HEPATITIS C ANTIBODY IA WITH CONFIRMATION Lab Routine [facility]ometrial cancer (HCC[facility] End: 01-01-2024 NILSA SCREENING NILSA SCREENING Radiology Routine Encounter for screening mammogram for breast cancer 1 Occurrences starting 12/02/2022 until 01/01/2024 [facility] Work Phone: Comment on above: 1 Occurrences starting 12/02/2022 until 01/01/2024 End: 04-25-2023 NM PET/CT SKULL-THIGH SUBSEQUENT NM PET/CT SKULL-THIGH SUBSEQUENT Radiology Routine Malignant neoplasm of endometrium (HCC) 1 Occurrences starting 03/26/2022 until 04/25/2023 [facility] Work Phone: Comment on above: 1 Occurrences starting 03/26/2022 until 04/25/2023 End: 12-29-2023 NM PET/CT SKULL-THIGH SUBSEQUENT NM PET/CT SKULL-THIGH SUBSEQUENT Radiology Routine Endometrial cancer (HCC) 1 Occurrences starting 11/29/2022 until 12/29/2023 [facility] Work Phone: Comment on above: 1 Occurrences starting 11/29/2022 until 12/29/2023 End: 02-17-2023 NM PET/CT SKULL-THIGH SUBSEQUENT [facility] Work Phone: Comment on above: 1 Occurrences starting 02/17/2023 until 02/17/2023 End: 04-01-2024 NM PET/CT SKULL-THIGH SUBSEQUENT NM PET/CT SKULL-THIGH SUBSEQUENT Radiology Routine Malignant neoplasm of endometrium (HCC) 1 Occurrences starting 03/03/2023 until 04/01/2024 [facility] Work Phone: Comment on above: 1 Occurrences starting 03/03/2023 until 04/01/2024 Patient Education [facility] Work Phone: Patient referral [facility] Work Phone: End: 06-03-[address] attenuation skull base mid-thigh NM PET/CT SKULL-THIGH INITIAL Radiology Routine 1 Occurrences starting 05/04/2022 until 06/03/2023 [facility] Work Phone: Comment on above: 1 Occurrences starting 05/04/2022 until 06/03/2023 PET+CT Guidance for localization of tumor of Skull base to mid-thigh-- W [id number] IV NM PET/CT SKULL-THIGH SUBSEQUENT Radiology Routine Malignant neoplasm of uterus, unspecified site (HCC) 04/17/2024 1:16 PM [facility] Work Phone: Thyrotropin [Units/v olume] in Serum or Plasma TSH BLD Lab Routine Endometrial cancer (HCC) Acquired hypothyroidism 06/11/2023 8:54 AM [facility] Work Phone: Thyrotropin [Units/v olume] in Serum or Plasma TSH BLD Lab Routine Malignant neoplasm of uterus, unspecified site (HCC) Chronic deep vein thrombosis (DVT) of proximal vein of left lower extremity (HCC) Malaise and fatigue 06/25/2023 1:07 PM [facility] Work Phone: Thyroxine (T4) free [Mass/volume] in Serum or Plasma T4 FREE/FREE THYROX Lab Routine Endometrial cancer (HCC) Acquired hypothyroidism 06/11/2023 8:54 AM [facility] Work Phone: Thyroxine (T4) free [Mass/volume] in Serum or Plasma T4 FREE/FREE THYROX Lab Routine Malignant neoplasm of uterus, unspecified site (HCC) Chronic deep vein thrombosis (DVT) of proximal vein of left lower extremity (HCC) Malaise and fatigue 06/25/2023 1:07 PM EDT [facility] Work Phone: End: 02-25-2024 Urinalysis complete W Reflex Culture panel - Urine [facility] Work Phone: Comment on above: Once (Lab) for 1 Occurrences starting until 02/25/2024 End: 02-13-2025 Urinalysis complete W Reflex Culture panel - Urine [facility] Work Phone: Comment on above: Once (Lab) for 1 Occurrences starting until 02/13/2025 End: 03-27-2024 US DVT LOWER LEFT US DVT LOWER LEFT Radiology Routine Discoloration of skin of lower leg Leg swelling 1 Occurrences starting 02/26/2023 until 03/27/2024 [facility] Work Phone: Comment on above: 1 Occurrences starting 02/26/2023 until 03/27/2024 [facility] [place] [place] [facility] Immunizations Immunization Date Immunization Notes Care Provider Mary Ellen amaya 06-08-2023 COVID-19 original vaccine, age 12+ yr, monovalent (PFIZER-BIONTECH - [place] TOP) [facility] Work Phone: [facility] 06-08-2023 Pfizer Covid-19 (Comirnaty) [facility] 06-08-2023 respiratory syncytia l virus (RSV) vaccine, bivalent (ABRYSVO) [facility] Work Phone: [facility] 05-12-2023 influenza (aIIV4) vaccine, age 65+ yr, quadrivalent, PF (FLUAD QUAD) [facility] Work Phone: [facility] 05-12-2023 influenza, injectabl e, quadrivalent, preservative free [facility] 05-12-2023 influenza virus vacc ine, unspecified formulation Pet Mota [facility] 01-28-2023 Covid Moderna Bivale nt Booster [facility] 05-27-2022 Covid Pfizer Bivalen t Booster MD Rosmery Horn [facility] 05-27-2022 influenza (aIIV4) vaccine, age 65+ yr, quadrivalent, PF (FLUAD QUAD) [facility] Work Phone: [facility] 05-27-2022 influenza, injectabl e, quadrivalent, preservative free [facility] 12-11-2021 Napoleon Matamoros) MD Rosmery Horn [facility] 10-28-2021 tetanus toxoid, redu mecca diphtheria toxoid, and acellular pertussis vaccine, adsorbed [facility] 07-03-2021 Napoleon Matamoros) MD Rosmery Horn [facility] 10-27-2020 COVID-19 vaccine, fu ll dose (LIBBY) Rosmery Horn MD Work Phone: [facility] Work Phone: Comment on above: Series: 10-07-2020 COVID-19 vaccine, fu ll dose (LIBBY) Rosmery Horn MD Work Phone: [facility] Work Phone: 09-09-2020 COVID-19 vaccine, fu ll dose (MODERNA) Rosmery Horn MD Work Phone: [facility] Work Phone: Comment on above: Series: 04-24-2020 influenza, high-dose , quadrivalent vaccine (FLUZONE HIGH DOSE QUADRIVALENT) Rosmery Horn MD Work Phone: [facility] Work Phone: 04-19-2019 zoster vaccine recombinant Rosmery Horn MD Work Phone: [facility] Work Phone: Comment on above: Series: 02-13-2019 zoster vaccine recombinant Rosmery Horn MD Work Phone: [facility] Work Phone: Comment on above: Series: 06-20-2018 influenza, injectabl e, quadrivalent, preservative free [facility] 06-20-2018 influenza, seasonal, injectable [facility] 06-20-2018 influenza, seasonal, injectable, preservative free Rosmery Horn MD Work Phone: [facility] Work Phone: 06-06-2018 influenza, high dose seasonal, preservative-free Rosmery Horn MD Work Phone: [facility] Work Phone: 06-11-2015 pneumococcal polysaccharide vaccine, 23 valent Rosmery Horn MD Work Phone: [facility] Work Phone: Comment on above: Series: 06-25-2014 zoster vaccine, live Rosmery Horn MD Work Phone: [facility] Work Phone: Comment on above: Series: 12-23-2013 pneumococcal polysaccharide vaccine, 23 valent Rosmery Horn MD Work Phone: [facility] Work Phone: Comment on above: Series: Payers Date Payer Category Payer Self-pay [id number] 2021 Medicare AETNA MEDICARE A ETNA MEDICARE PPO [id number] 2021-Present [phone] [address] [place] [address] O [id number] 2021 Medicare (Managed Care) 1.2. [id number] 2021 Private Health Insurance [facility] [id number] 2013 Medicare [id number] 2013 Medicare AETNA MANAGED [place] DICARE AETNA MEDICARE PLAN (PPO) [id number] 2013-Present [id number] 2013 Medicare AETNA MANAGED [place] DICARE AETNA MEDICARE PLAN (PPO) [id number] 2013-Present [id number] 2000 Medicare [id number] 1947 Unknown [id number] 2.16.840.1.164503.3.579.2.9 03 1947 Unknown [id number] 2.16.840.1.575459.3.579.2.9 03 1947 Unknown [id number] 2.16.840.1.434734.3.579.2.9 03 1947 Unknown [id number] 2.16.840.1.821960.3.579.2.9 03 1947 Unknown [id number] 2.16.840.1.044019.3.579.2.9 03 1947 Unknown [id number] 2.16.840.1.666313.3.579.2.9 03 1947 Unknown [id number] 2.16.840.1.964477.3.579.2.9 03 1947 Unknown [id number] 2.16.840.1.120248.3.579.2.9 03 1947 Unknown [id number] 2.16.840.1.942166.3.579.2.9 03 1947 Unknown [id number] 2.16.840.1.099740.3.579.2.9 03 1947 Unknown [id number] 2.16840.1.203962.3.579.2.9 03 1947 Unknown [id number] 2.16840.1.434172.3.579.2.1 069 1947 Unknown [id number] 2.16840.1.925029.3.579.2.2 78 1947 Unknown [id number] 2.16840.1.876633.3.579.2.1 245 1947 Unknown [id number] 2.840.1.919555.3.579.2.1 245 1947 Unknown [id number] 2.16840.1.784163.3.579.2.1 245 1947 Unknown [id number] 2.16.840.1.670845.3.579.2.1 243 1947 Unknown [id number] 2.16.840.1.360889.3.579.2.1 243 1947 Unknown [id number] 2.16.840.1.490485.3.579.2.1 243 1947 Unknown [id number] 2.16.840.1.542380.3.579.2.1 243 1947 Unknown [id number] 2.16.840.1.174226.3.579.2.1 243 1947 Unknown [id number] 2.16.840.1.053416.3.579.2.1 243 1947 Unknown [id number] 2.16.840.1.925332.3.579.2.1 243 1947 Unknown [id number] 2.16.840.1.673841.3.579.2.1 243 1947 Unknown [id number] 2.16.840.1.505485.3.579.2.1 243 1947 Unknown [id number] 2.16.840.1.121637.3.579.2.1 243 Unknown Unknown [employer] [place] [id number] Unknown [id number] 2.16.840.1.191061.3.579.2.4 62 Social History Date Type Detail Facility Tobacco smoking stat [place] [facility] Unknown if ever smoked [facility] Start: 1945 [facility] Start: 08-31-2022 End: 06-29-2023 Tobacco smoking consumption unknown [facility] Start: 04-08-2022 End: 08-24-2023 Tobacco smoking status MIIS Never smoked tobacco [facility] Start: 12-03-2021 End: 02-09-2024 Alcohol intake Current drinker of alcohol (finding) [facility] Start: 04-11-2021 History SDOH Alcohol Comment 1 drink per month not used in 1 year [facility] Start: 1945 Sex Assigned At Female [facility] Start: 11-25-2021 End: 05-18-2022 Exposure to SARS-CoV-2 (event) Unable to assess [facility] Start: 10-28-2020 End: 01-25-2025 Exposure to SARS-CoV-2 (event) Not sure [facility] Start: 01-30-2022 History SDOH Alcohol Frequency 1 [facility] Start: 01-30-2022 History SDOH Social Connections Phone 5 [facility] Start: 01-30-2022 History SDOH Social Connections Get Together 4 [facility] Start: 01-30-2022 History SDOH Social Connections Muslim 3 [facility] Start: 01-30-2022 History SDOH Physica l Activity DPW 0 [facility] Start: 01-30-2022 History SDOH Stress 2 [facility] Start: 04-08-2022 End: 08-24-2023 Tobacco use and exposure Smokeless tobacco non-user [facility] Start: 09-08-2018 None [facility] Start: 09-08-2018 Alone [facility] Start: 09-10-2018 Non-smoker [facility] Start: 01-30-2022 End: 02-26-2023 History of Social function [facility] Start: 01-30-2022 End: 02-26-2023 Social connection and isolation panel [facility] Do you belong to any clubs or organizations such as synagogue groups, unions, fraternal or athletic groups, or school groups? Yes [facility] Are you now , , , , never or living with a partner? [facility] How often to you hav e a drink containing alcohol? Never [facility] Average Number of Drinks Not on file [facility] Do you feel stress - tense, restless, nervous, or anxious, or unable to sleep at night because your mind is troubled all the time - these days [OSQ] Only a little [facility] (I/We) worried lucila er (my/our) food would run out before (I/we) got money to buy more. Never true [facility] In the past 12 month s, was there a time when you were not able to pay the mortgage or rent on time? No [facility] Start: 05-10-2021 Gender identity Identifies as female gender (finding) [facility] Start: 05-10-2021 Sexual orientation Heterosexual (leeann perea) [facility] Start: 08-24-2023 End: 02-13-2025 Alcoholic beverage intake Lifetime non-drinker (finding) [facility] Work Phone: Start: 12-27-2023 Alcohol Comment 1 glass per year [facility] Start: 12-11-2016 [facility] NE[facility]: Highlighted row [facility] Medical Equipment Procedure Code Equipment Code Equipment Origin al Text Equipment Identifier Dates System Xen Porci ne Dermis Glaucoma Injector Sterile Latex Free - [id number] Start: 11-06-2020 Comment on above: Description: Not Exp lanted. Explant button hit by mistake. Issue corrected. System Xen Porci ne Dermis Glaucoma Injector Sterile Latex Free - [id number] Start: 04-11-[address] 6.6fr 2.2mm 1.4mm Titanium [place] 55cm Implantable - [id number] Start: 12-14-2016 Goals Date Patient Goal Desired Activity /State Functional Status Date Assessment Result Facility 02-13-2025 [place] - suicide severity rating scale screener - recent [C-SSRS] [facility] Work Phone: 07-09-2023 Functional status Chair;Bathroom Privileg e [facility] Work Phone: 06-29-2023 Functional status Ambulates;Chair [facility] Work Phone: 06-29-2023 Functional status Rolling Walker [facility] Work Phone: 03-24-2023 Are you deaf, or do you have serious difficulty hearing No 03/24/2023 1:52 PM EDT Beth Collazo RN No [facility] 03-24-2023 Are you blind, or do you have serious difficulty seeing, even when wearing glasses No 03/24/2023 1:52 PM ALLANT Beth Collazo RN No [facility] 03-24-2023 Do you have serious difficulty walking or climbing stairs No 03/24/2023 1:52 PM EDT Beth Collazo RN No [facility] 03-24-2023 Do you have difficul ty dressing or bathing No 03/24/2023 1:52 PM EDT Beth Collazo RN No [facility] 03-24-2023 Because of a physica l, mental, or emotional condition, do you have difficulty doing errands alone such as visiting a physician's office or shopping Yes 03/24/2023 1:52 PM Beth Ng RN Yes [facility] 09-19-2022 Functional status Chair [facility] Work Phone: 09-11-2022 Functional status Ambulates [facility] Work Phone: 09-09-2022 Functional status Tolerates Activity Well [facility] Work Phone: 09-07-2022 Functional status Chair [facility] Work Phone: 09-06-2022 Functional status Tolerates Activity Well [facility] Work Phone: 09-03-2022 Functional status Chair [facility] Work Phone: 09-02-2022 Functional status Rolling Walker [facility] Work Phone: Mental Status Date Assessment Result Facility 07-09-2023 Cognitive function Voice/Name [facility] Work Phone: 06-30-2023 Cognitive function Appropriate;Cooperativ e [facility] Work Phone: 06-29-2023 Cognitive function Voice/Name [facility] Work Phone: 06-26-2023 Cognitive function Level Of Cons ciousness Awake;Alert;Appropriate;Fol lows Commands [facility] Work Phone: 03-24-2023 Because of a physica l, mental, or emotional condition, do you have serious difficulty concentrating, remembering, or making decisions No 03/24/2023 1:52 PM Beth Ng, RN No [facility] 03-12-2023 Cognitive function Level Of Cons ciousness Awake;Alert;Appropriate;Fol lows Commands [facility] Work Phone: 09-19-2022 Cognitive function Voice/Name [facility] Work Phone: 09-17-2022 Cognitive function Appropriate;Shirley hernandez [facility] Work Phone: 09-11-2022 Cognitive function Voice/Name [facility] Work Phone: 09-07-2022 Cognitive function Voice/Name [facility] Work Phone: 09-03-2022 Cognitive function Voice/Name [facility] Work Phone: Clinical Notes 05-23-2019 to 03-01-2025 Telephone Encounter - Nile Allen RN - 03/01/2025 9:32 AM EDTTelephone Encounter - Nile Allen RN - 03/01/2025 9:32 AM EDTTelephone Encounter - Mara Bond Ma - 02/28/2025 12:56 PM EDT Note Date & Type Note Facility 03-01-2025 Telephone encounter Note Spoke with Aurora Wolfe, nurse practitioner @ . Verified last name and of patient. Aurora will be assuming care for Rosita, under palliative services. Aurora states that patient has some sort of uterine or bladder cancer, per patients [id number]. Patient has been experiencing frequent UTI symptoms- mainly burning and frequency, but cultures are always normal. Aurora suggested a visit with urogynecology to patient and family but is also wondering if she can start the patient on vaginal estrogen. She is willing to order the medication but would like to know if this would be contraindicated with cancer. Per Aurora, patient and her family do not wish to schedule an appointment at this time, unless suggested by Dr. Salmon. 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 Plan: Plan for Cystoscopy with botox under sedation in December NO biopsies - will defer at this time Plan to hold xarelto 2-3 days prior - letter sent to Dr. Espino for recommendation (she was seeing different PCP but prefers to switch to [facility] at this time) All questions answered Franklin Salmon MD FOV: none Patient canceled her last 3 appointments with this office (see encounters). Aurora can be contacted with questions at [phone] at any time. Routing to Dr. Salmon to to review and advise with any recommendations. Nile Allen RN [facility] 03-01-2025 Miscellaneous Notes Spoke with Aurora Wolfe, nurse practitioner @ . Verified last name and of patient. Aurora will be assuming care for Rosita, under palliative services. Aurora states that patient has some sort of uterine or bladder cancer, per patients [id number]. Patient has been experiencing frequent UTI symptoms- mainly burning and frequency, but cultures are always normal. Aurora suggested a visit with urogynecology to patient and family but is also wondering if she can start the patient on vaginal estrogen. She is willing to order the medication but would like to know if this would be contraindicated with cancer. Per Aurora, patient and her family do not wish to schedule an appointment at this time, unless suggested by Dr. Salmon. 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 Plan: Plan for Cystoscopy with botox under sedation in December NO biopsies - will defer at this time Plan to hold xarelto 2-3 days prior - letter sent to Dr. Espino for recommendation (she was seeing different PCP but prefers to switch to [facility] at this time) All questions answered Franklin Salmon MD FOV: none Patient canceled her last 3 appointments with this office (see encounters). Aurora can be contacted with questions at [phone] at any time. Routing to Dr. Salmon to to review and advise with any recommendations. Nile Allen RN NEWS DEPARTMENT INTERN from [facility] is calling with a question regarding a medication she would like to start this patient on. documented in this encounter [facility] 02-28-2025 Telephone encounter Note NEWS DEPARTMENT INTERN from [facility] is calling with a question regarding a medication she would like to start this patient on. [facility] 08-17-2024 History of Present illness Narrative [facility] RICARDO NOTE: Name: Rosita Kennedy, 78 y.o. CSN:[id number] PCP: Terry Espino MD ALL: Allergies Allergen Reactions Corticosteroids (Glucocorticoids) Other Erythromycin GI Upset Iodine Diarrhea Methylprednisolone Hives Sulfa (Sulfonamide Antibiotics) Unknown Codeine GI Upset, Hives and Other hives History: Chief Complaint: URI (Cough, sore throat x 3 days) Encounter Date: 08/17/2024 HPI: The history was obtained from the patient. Rosita is a 78 y.o. female, who presents with a chief complaint of URI (Cough, sore throat x 3 days) Patient presents with scant clear/yellow productive cough, mild sore throat, and fatigue that began 3 days ago. She denies any sinus congestion, body aches, chills, shortness of breath. Symptoms have worsened over since onset of illness. Has not utilized any [id number] medications. Was recently treated for possible urinary tract infection with Keflex, antibiotic was discontinued with negative urine culture. PMHx: Past Medical History: Diagnosis Date Cancer (Multi) MS (multiple sclerosis) (Multi) Current Outpatient Medications Medication Sig Dispense Refill aspirin 81 mg EC tablet Take 1 tablet (81 mg) by mouth once daily. calcium citrate-vitamin D2 250 mg-2.5 mcg (100 unit) tablet Take 1 tablet by mouth twice a day. levothyroxine (Synthroid, Levoxyl) 25 mcg tablet Take 1 tablet (25 mcg) by mouth once daily. methenamine hippurate (Hiprex) 1 gram tablet Take 1 tablet (1 g) by mouth 2 times a day. mirtazapine (Remeron) 15 mg tablet Take 1 tablet (15 mg) by mouth once daily at bedtime. ondansetron (Zofran) 8 mg tablet Take 1 tablet (8 mg) by mouth every 6 hours if needed. polyethylene glycol (Glycolax, Miralax) 17 gram packet Take 17 g by mouth once daily. rivaroxaban (Xarelto) 20 mg tablet Take 1 tablet (20 mg) by mouth once daily. sertraline (Zoloft) 25 mg tablet Take 1 tablet (25 mg) by mouth once daily. azithromycin (Zithromax Z-Adama) 250 mg tablet Take 2 tablets (500 mg) on Day 1, followed by 1 tablet (250 mg) once daily on Days 2 through 5. 6 tablet 0 omfcsmeznfdpmxh-vklbkjvas-NX 2-30-10 mg/5 mL syrup Take 5 mL by mouth 4 times a day as needed for congestion or cough for up to 10 days. 120 mL 0 No current facility-administered medications for this visit. PMSx: History reviewed. No pertinent surgical history. Fam Hx: No family history on file. SOC. Hx: Social History Socioeconomic History Marital status: Spouse name: Not on file Number of children: Not on file Years of education: Not on file Highest education level: Not on file Occupational History Not on file Tobacco Use Smoking status: Never Smokeless tobacco: Never Substance and Sexual Activity Alcohol use: Never Drug use: Never Sexual activity: Not on file Other Topics Concern Not on file Social History Narrative Not on file Social Drivers of Health Financial Resource Strain: Low Risk (01/30/2022) Received from [facility] Overall Financial Resource Strain (CARDIA) Difficulty of Paying Living Expenses: Not hard at all Food Insecurity: No Food Insecurity (01/30/2022) Received from [facility] Hunger Vital Sign Worried About Running Out of Food in the Last Year: Never true Ran Out of Food in the Last Year: Never true Transportation Needs: Unmet Transportation Needs (01/30/2022) Received from [facility] PRAPARE - Transportation Lack of Transportation (Medical): No Lack of Transportation (Non-Medical): Yes Physical Activity: Inactive (01/30/2022) Received from [facility] Exercise Vital Sign Days of Exercise per Week: 0 days Minutes of Exercise per Session: 0 min Stress: No Stress Concern Present (01/30/2022) Received from [facility] [place] [facility] Occupational [employer] - Occupational Stress Questionnaire Feeling of Stress : Only a little Social Connections: Moderately Integrated (01/30/2022) Received from [facility] Social Connection and Isolation Panel [NHANES] Frequency of Communication with Friends and Family: More than three times a week Frequency of Social Gatherings with Friends and Family: Three times a week Attends Yazidism Services: More than 4 times per year Active Member of Clubs or Organizations: Yes Attends Club or Organization Meetings: More than 4 times per year Marital Status: Intimate Partner Violence: Not on file Housing Stability: Low Risk (01/30/2022) [facility] Housing Stability Vital Sign Unable to Pay for Housing in the Last Year: No Number of Places Lived in the Last Year: 1 Unstable Housing in the Last Year: No Vitals: 08/17/24 1431 BP: 164/82 Pulse: 81 Resp: 14 Temp: 36.7 C (98 F) SpO2: 94% 47.6 kg (105 lb) Physical Exam Vitals and nursing note reviewed. Constitutional: Appearance: Normal appearance. HENT: Head: Normocephalic and atraumatic. Right Ear: Hearing, ear canal and external ear normal. A middle ear effusion is present. Tympanic membrane is erythematous. Tympanic membrane is not bulging. Tympanic membrane has normal mobility. Left Ear: Hearing, ear canal and external ear normal. A middle ear effusion is present. Tympanic membrane is erythematous. Tympanic membrane is not bulging. Tympanic membrane has normal mobility. Nose: Congestion and rhinorrhea present. Rhinorrhea is purulent. Right Sinus: Maxillary sinus tenderness and frontal sinus tenderness present. Left Sinus: Maxillary sinus tenderness and frontal sinus tenderness present. Mouth/Throat: Lips: [place]. Mouth: Mucous membranes are moist. Pharynx: Uvula midline. Posterior oropharyngeal erythema present. No pharyngeal swelling or oropharyngeal exudate. Tonsils: No tonsillar exudate. Cardiovascular: Rate and Rhythm: Normal rate and regular rhythm. Heart sounds: Normal heart sounds. Pulmonary: Effort: Pulmonary effort is normal. No respiratory distress. Breath sounds: Normal breath sounds. No stridor. No wheezing, rhonchi or rales. Chest: Chest wall: No tenderness. Abdominal: General: Bowel sounds are normal. Skin: General: Skin is warm and dry. Neurological: Mental Status: She is alert and oriented to person, place, and time. LABORATORY @ RADIOLOGICAL IMAGING (if done): Results for orders placed or performed in visit on 08/17/24 (from the past 24 hours) POCT SARS-COV-2/FLU/RSV PCR SYMPTOMATIC manually resulted Result Value Ref Range POC Coronavirus 2019, PCR Not Detected Not Detected POC Flu A Result Not Detected Not Detected POC Flu B Result Not Detected Not Detected POC RSV PCR Not Detected Not Detected Negative viral panel reviewed with patient via phone call, states understanding ____ I did personally review Rosita's past medical history, surgical history, social history, as well as family history (when relevant). In this case, I also oversaw the her drug management by reviewing her medication list, allergy list, as well as the medications that I prescribed during the UC course and/or recommended as an out-patient (including possible OTC medications such as acetaminophen, NSAIDs , etc). After reviewing the items above, I did look at previous medical documentation, such as recent hospitalizations, office visits, and/or recent consultations with PCP/specialist. SDOH: Another factor that I considered in Rosita's care was her Social Determinants of Health (SDOH). During this UC encounter, she did not have social determinants of health. Those SDOH influencing Rosita's care are: none UC COURSE/MEDICAL DECISION MAKING: Rosita is a 78 y.o., who presents with a working diagnosis of 1. Bronchitis after surgery 2. Acute cough Rosita was seen today for uri. Diagnoses and all orders for this visit: Bronchitis after surgery (Primary) - azithromycin (Zithromax Z-Adama) 250 mg tablet; Take 2 tablets (500 mg) on Day 1, followed by 1 tablet (250 mg) once daily on Days 2 through 5. Acute cough - qjgluqpxebbifkf-fjiihhzgo-OX 2-30-10 mg/5 mL syrup; Take 5 mL by mouth 4 times a day as needed for congestion or cough for up to 10 days. - POCT SARS-COV-2/FLU/RSV PCR SYMPTOMATIC manually resulted Plan of care reviewed with patient. If symptoms change and/or worsen will follow-up with primary care provider, return to urgent care, or go to the nearest emergency department for further evaluation. Patient states understanding and is agreeable with plan of care. Lindsey Crisostomo APRN, DREW Advanced Practice Provider [facility] Please note: While the patient may or may not have received printed discharge paperwork, all relevant medical findings, test results, and treatment details are accessible through the electronic medical record system. The patient is encouraged to review their chart via the patient portal for comprehensive information and follow-up instructions. documented in this encounter [facility] Work Phone: 08-08-2024 History of Present illness Narrative [facility] RICARDO NOTE: Name: Rosita Kennedy, 78 y.o. CSN:[id number] PCP: Terry Espino MD ALL: Allergies Allergen Reactions Corticosteroids (Glucocorticoids) Other Erythromycin GI Upset Iodine Diarrhea Methylprednisolone Hives Sulfa (Sulfonamide Antibiotics) Unknown Codeine GI Upset, Hives and Other hives History: Chief Complaint: UTI (Frequency of urination and confusion x 2 weeks ) Encounter Date: 08/08/2024 HPI: The history was obtained from the patient. Rosita is a 78 y.o. female, who presents with a chief complaint of UTI (Frequency of urination and confusion x 2 weeks ). Urinary frequency and urgency began approximately 2 weeks ago with new onset of increased mild confusion per patient and caregiver. Denies any fevers, chills, back pain, pelvic pain. She does live home alone with an a medical alert bracelet. Declines having caregiver stay with her until symptoms improve, will keep medical alert bracelet close. PMHx: Past Medical History: Diagnosis Date Cancer (Multi) MS (multiple sclerosis) (Multi) Current Outpatient Medications Medication Sig Dispense Refill aspirin 81 mg EC tablet Take 1 tablet (81 mg) by mouth once daily. calcium citrate-vitamin D2 250 mg-2.5 mcg (100 unit) tablet Take 1 tablet by mouth twice a day. levothyroxine (Synthroid, Levoxyl) 25 mcg tablet Take 1 tablet (25 mcg) by mouth once daily. methenamine hippurate (Hiprex) 1 gram tablet Take 1 tablet (1 g) by mouth 2 times a day. mirtazapine (Remeron) 15 mg tablet Take 1 tablet (15 mg) by mouth once daily at bedtime. ondansetron (Zofran) 8 mg tablet Take 1 tablet (8 mg) by mouth every 6 hours if needed. polyethylene glycol (Glycolax, Miralax) 17 gram packet Take 17 g by mouth once daily. rivaroxaban (Xarelto) 20 mg tablet Take 1 tablet (20 mg) by mouth once daily. sertraline (Zoloft) 25 mg tablet Take 1 tablet (25 mg) by mouth once daily. atorvastatin (Lipitor) 10 mg tablet Take 1 tablet (10 mg) by mouth once daily. (Patient not taking: Reported on 08/08/2024) cephalexin (Keflex) 500 mg capsule Take 1 capsule (500 mg) by mouth 3 times a day for 7 days. 21 capsule 0 lenvatinib 20 mg daily dose (Lenvima) 2 x 10 mg capsule therapy pack Take 2 capsules (20 mg total) by mouth once daily. (Patient not taking: Reported on 06/22/2024) nitrofurantoin (Macrodantin) 100 mg capsule Take 1 capsule (100 mg) by mouth 4 times a day. (Patient not taking: Reported on 08/08/2024) solifenacin (VESIcare) 5 mg tablet Take 1 tablet (5 mg) by mouth once daily. (Patient not taking: Reported on 06/22/2024) UNKNOWN TO PATIENT Administer 1 drop into affected eye(s) once daily. (Patient not taking: Reported on 08/08/2024) No current facility-administered medications for this visit. Facility-Administered Medications Ordered in Other Visits Medication Dose Route Frequency Provider Last Rate Last Admin heparin flush 100 unit/mL syringe 500 Units 500 Units intra-catheter PRN JEREMY Pinedo 500 Units at 08/08/24 1135 PMSx: No past surgical history on file. Fam Hx: No family history on file. SOC. Hx: Social History Socioeconomic History Marital status: Spouse name: Not on file Number of children: Not on file Years of education: Not on file Highest education level: Not on file Occupational History Not on file Tobacco Use Smoking status: Never Smokeless tobacco: Never Substance and Sexual Activity Alcohol use: Never Drug use: Never Sexual activity: Not on file Other Topics Concern Not on file Social History Narrative Not on file Social Drivers of Health Financial Resource Strain: Low Risk (01/30/2022) Received from [facility] Overall Financial Resource Strain (CARDIA) Difficulty of Paying Living Expenses: Not hard at all Food Insecurity: No Food Insecurity (01/30/2022) Received from [facility] Hunger Vital Sign Worried About Running Out of Food in the Last Year: Never true Ran Out of Food in the Last Year: Never true Transportation Needs: Unmet Transportation Needs (01/30/2022) Received from [facility] PRAPARE - Transportation Lack of Transportation (Medical): No Lack of Transportation (Non-Medical): Yes Physical Activity: Inactive (01/30/2022) Received from [facility] Exercise Vital Sign Days of Exercise per Week: 0 days Minutes of Exercise per Session: 0 min Stress: No Stress Concern Present (01/30/2022) Received from [facility] [place] [facility] [employer]ational Health - Occupational Stress Questionnaire Feeling of Stress : Only a little Social Connections: Moderately Integrated (01/30/2022) Received from [facility] Social Connection and Isolation Panel [NHANES] Frequency of Communication with Friends and Family: More than three times a week Frequency of Social Gatherings with Friends and Family: Three times a week Attends Yazidism Services: More than 4 times per year Active Member of Clubs or Organizations: Yes Attends Club or Organization Meetings: More than 4 times per year Marital Status: Intimate Partner Violence: Not on file Housing Stability: Low Risk (01/30/2022) Received from [facility] Housing Stability Vital Sign Unable to Pay for Housing in the Last Year: No Number of Places Lived in the Last Year: 1 Unstable Housing in the Last Year: No Vitals: 08/08/24 1311 BP: 153/66 Pulse: 79 Resp: 18 Temp: 36.7 C (98 F) SpO2: 98% 49 kg (108 lb) Physical Exam Vitals and nursing note reviewed. Constitutional: Appearance: Normal appearance. HENT: Head: Normocephalic and atraumatic. Mouth/Throat: Mouth: Mucous membranes are moist. Pharynx: Oropharynx is clear. Eyes: Pupils: Pupils are equal, round, and reactive to light. Cardiovascular: Rate and Rhythm: Normal rate and regular rhythm. Pulses: Normal pulses. Heart sounds: Normal heart sounds. Pulmonary: Effort: Pulmonary effort is normal. Breath sounds: Normal breath sounds. Abdominal: General: Abdomen is flat. Bowel sounds are normal. Palpations: Abdomen is soft. Tenderness: There is no right CVA tenderness or left CVA tenderness. Musculoskeletal: General: Normal range of motion. Cervical back: Normal range of motion. Skin: General: Skin is warm and dry. Capillary Refill: Capillary refill takes less than 2 seconds. Neurological: Mental Status: She is alert and oriented to person, place, and time. LABORATORY @ RADIOLOGICAL IMAGING (if done): Results for orders placed or performed in visit on 08/08/24 (from the past 24 hours) POCT UA (nonautomated w/o microscopy) manually resulted Result Value Ref Range POC Color, Urine [place] (A) Straw, Yellow, Light-Yellow POC Appearance, Urine Clear Clear POC Glucose, Urine NEGATIVE NEGATIVE mg/dl POC Bilirubin, Urine NEGATIVE NEGATIVE POC Ketones, Urine NEGATIVE NEGATIVE mg/dl POC Specific [place], Urine 1.020 1.005 - 1.035 POC Blood, Urine LARGE (3+) (A) NEGATIVE POC PH, Urine 6.0 No Reference Range Established PH POC Protein, Urine 300 (3+) (A) NEGATIVE, 30 (1+) mg/dl POC Urobilinogen, Urine 0.2 0.2, 1.0 EU/DL Poc Nitrite, Urine NEGATIVE NEGATIVE POC Leukocytes, Urine SMALL (1+) (A) NEGATIVE ____ I did personally review Rosita's past medical history, surgical history, social history, as well as family history (when relevant). In this case, I also oversaw the her drug management by reviewing her medication list, allergy list, as well as the medications that I prescribed during the UC course and/or recommended as an out-patient (including possible OTC medications such as acetaminophen, NSAIDs , etc). After reviewing the items above, I did look at previous medical documentation, such as recent hospitalizations, office visits, and/or recent consultations with PCP/specialist. SDOH: Another factor that I considered in Rosita's care was her Social Determinants of Health (SDOH). During this encounter, she did not have social determinants of health. Those SDOH influencing Rosita's care are: none UC COURSE/MEDICAL DECISION MAKING: Rosita is a 78 y.o., who presents with a working diagnosis of 1. Dysuria 2. Acute cystitis with hematuria Rosita was seen today for uti. Diagnoses and all orders for this visit: Dysuria (Primary) - POCT UA (nonautomated w/o microscopy) manually resulted - Urine culture; Future - Urine culture - Cancel: Referral to Primary Care - cephalexin (Keflex) 500 mg capsule; Take 1 capsule (500 mg) by mouth 3 times a day for 7 days. Acute cystitis with hematuria - Urine culture; Future - Urine culture - cephalexin (Keflex) 500 mg capsule; Take 1 capsule (500 mg) by mouth 3 times a day for 7 days. Plan of care reviewed with patient. If symptoms change and/or worsen will follow-up with primary care provider, return to urgent care, or go to the nearest emergency department for further evaluation. Patient states understanding and is agreeable with plan of care. Lindsey Crisostomo APRN, DNP Advanced Practice Provider [facility] Please note: While the patient may or may not have received printed discharge paperwork, all relevant medical findings, test results, and treatment details are accessible through the electronic medical record system. The patient is encouraged to review their chart via the patient portal for comprehensive information and follow-up instructions. documented in this encounter [facility] Work Phone: 04-17-2024 History of Present illness Narrative RADIOLOGY SERVICE PROGRESS NOTE SERVICE DATE: 04/17/2024 SERVICE TIME: 12:25 PM PATIENT IDENTITY VERIFICATION COMPLETED USING TWO (2) STANDARD IDENTIFIERS: Name and Date of confirmed by patient verbally FALL SCREENING: Has the patient had 2 falls in the last year or 1 fall with injury or currently using an Ambulatory Assistive Device (Walker, Cane, Wheelchair, Crutches, etc.)? Yes, Patient High Risk for Falls What interventions were put in place to prevent falls during this visit? Increased Observations by Caregivers PATIENT GENDER DATA: .female ALLERGIES: NA MEDICATIONS REVIEWED: Not applicable PATIENT RELEVANT IMPLANT DATA REVIEWED: Not Applicable PATIENT PRESENTS WITH AN IMPLANTABLE OR ATTACHED STUNT DOUBLE: No CREATININE: Creatinine Date Value Ref Range Status 09/27/2023 0.87 0.58 - 0.96 mg/dL Final 07/09/2023 0.74 0.58 - 0.96 mg/dL Final 06/25/2023 0.92 0.58 - 0.96 mg/dL Final Estimated Glomerular Filtration Rate Date Value Ref Range Status 09/27/2023 70 >=60 mL/min/1.73m Final Comment: Estimated Glomerular Filtration Rate (eGFR) is calculated using the 2020 CKD-EPI creatinine equation. This equation utilizes serum creatinine, sex, and age as parameters. The creatinine assay has traceable calibration to isotope dilution-mass spectrometry. Refer to KDIGO guidelines for clinical interpretation. In patients with unstable renal function, e.g. those with acute kidney injury, the eGFR may not accurately reflect actual GFR. eGFR- Date Value Ref Range Status 10/22/2021 >60 Final P.O.C.T. RESULTS: N/A April 17, [address] PERFORMED: No IV SITE: Ambulatory: NM only - direct IV injection in the Left antecubital site POST EXAM PIV STATUS: Discontinued PROCEDURE TYPE: NM INJECT: PET/CT BODY SCAN. 6.7 mCi F18 FDG. No other medications given.. ADMINISTRATION TIME: 1213 PATIENT DISCHARGED TO: Ambulatory patient, left IN department area. A Diagnostic radioactive procedure has taken place, with no further precautions necessary other than routine body substance precautions. More information regarding radiation safety can be found using this link: [email or web address] SIGNATURE: RT Miguel(Maribel) PATIENT NAME: Rosita Kennedy DATE: April 17, 2024 TIME: 12:25 PM PAGER/CONTACT #: documented in this encounter [facility] 04-17-2024 Note HNO ID: [id number] Author: CHRISTIAN MORALES RT(R) Service: Nuclear Medicine Author Type: Technologist Type: Progress Notes Filed: 04/17/2024 12:25 Note Text: RADIOLOGY SERVICE PROGRESS NOTE SERVICE DATE: 04/17/2024 SERVICE TIME: 12:25 PM PATIENT IDENTITY VERIFICATION COMPLETED USING TWO (2) STANDARD IDENTIFIERS: Name and Date of confirmed by patient verbally FALL SCREENING: Has the patient had 2 falls in the last year or 1 fall with injury or currently using an Ambulatory Assistive Device (Walker, Cane, Wheelchair, Crutches, etc.)? Yes, Patient High Risk for Falls What interventions were put in place to prevent falls during this visit? Increased Observations by Caregivers PATIENT GENDER DATA: .female ALLERGIES: NA MEDICATIONS REVIEWED: Not applicable PATIENT RELEVANT IMPLANT DATA REVIEWED: Not Applicable PATIENT PRESENTS WITH AN IMPLANTABLE OR ATTACHED STUNT DOUBLE: No CREATININE: Creatinine Date Value Ref Range Status 09/27/2023 0.87 0.58 - 0.96 mg/dL Final 07/09/2023 0.74 0.58 - 0.96 mg/dL Final 06/25/2023 0.92 0.58 - 0.96 mg/dL Final Estimated Glomerular Filtration Rate Date Value Ref Range Status 09/27/2023 70 >=60 mL/min/1.73m? Final Comment: Estimated Glomerular Filtration Rate (eGFR) is calculated using the 2020 CKD-EPI creatinine equation. This equation utilizes serum creatinine, sex, and age as parameters. The creatinine assay has traceable calibration to isotope dilution-mass spectrometry. Refer to KDIGO guidelines for clinical interpretation. In patients with unstable renal function, e.g. those with acute kidney injury, the eGFR may not accurately reflect actual GFR. eGFR- Date Value Ref Range Status 10/22/2021 >60 Final P.O.C.T. RESULTS: N/A April 17, [address] PERFORMED: No IV SITE: Ambulatory: NM only - direct IV injection in the Left antecubital site POST EXAM PIV STATUS: Discontinued PROCEDURE TYPE: NM INJECT: PET/CT BODY SCAN. 6.7 mCi F18 FDG. No other medications given.. ADMINISTRATION TIME: 1213 PATIENT DISCHARGED TO: Ambulatory patient, left IN department area. A Diagnostic radioactive procedure has taken place, with no further precautions necessary other than routine body substance precautions. More information regarding radiation safety can be found using this link: [email or web address] SIGNATURE: RT Miguel(R) PATIENT NAME: Rosita Kennedy DATE: April 17, 2024 TIME: 12:25 PM PAGER/CONTACT #: [facility] 02-25-2024 Hospital Discharge instructions Bahman Ann DO - 02/25/2024 5:01 PM EDT Two capfuls of Miralax until bowel movement and then back to one capful daily. The following attachments cannot be sent through Care Everywhere.Constipation in adults (Moroccan)Dizziness, Adult ED (Moroccan)Urinary Tract Infection Discharge Instructions, Adult (Moroccan)documented in this encounter [facility] Work Phone: 02-25-2024 Emergency department Note Associated Order(s): ECG 12 lead HPI Chief Complaint Patient presents with Dizziness Patient complains of dizziness for 3 days. Reports dizziness is worse with quick movements and feels off balance. Denies other symptoms. EKG done at . Limitations to History: None HPI: 78-year-old female presents with concern for dizziness and abdominal distention. States that the dizziness is been present over the past 3 days. Describes it as feeling off balance whenever she gets up from a seated position or turns her head quickly. Patient also has had abdominal distention over the past 1 week. Denies any nausea, vomiting, constipation, diarrhea, abdominal pain. Does have urinary frequency as well as vaginal burning. History of recent yeast infection. Denies any fall or trauma. Additional History Obtained from: [id number] at the bedside. Physical Exam: VS: As documented in the triage note and EMR flowsheet from this visit were reviewed. Appearance: Alert. cooperative, in no acute distress. Skin: Intact, dry skin, no lesions, rash, petechiae or purpura. Eyes: PERRLA, EOMs intact, Conjunctiva pink with no redness or exudates. HENT: Normocephalic, atraumatic. Nares patent. No intraoral lesions. Neck: Supple, without meningismus. Trachea at midline. No lymphadenopathy. Pulmonary: Clear bilaterally with good chest wall excursion. No rales, rhonchi or wheezing. No accessory muscle use or stridor. Cardiac: Regular rate and rhythm, no rubs, murmurs, or gallops. Abdomen: Abdomen is soft, nontender, and nondistended. No palpable organomegaly. No rebound or guarding. No CVA tenderness. Nonsurgical abdomen. Genitourinary: Exam deferred. Musculoskeletal: Full range of motion. Pulses full and equal. No cyanosis, clubbing, or edema. Neurological: Cranial nerves are grossly intact, grossly normal sensation, no weakness, no focal findings identified. Psychiatric: Appropriate mood and affect. Aneudy Coma Scale Score: 15 Patient History Past Medical History: Diagnosis Date Cancer (Multi) MS (multiple sclerosis) (Multi) No past surgical history on file. No family history on file. Social History Tobacco Use Smoking status: Never Smokeless tobacco: Never Substance Use Topics Alcohol use: Never Drug use: Never Physical Exam ED Triage Vitals [02/25/24 1301] Temperature Heart Rate Respirations BP 36.6 C (97.8 F) 84 18 144/87 Pulse Ox Temp Source Heart Rate Source Patient Position 95 % Temporal Monitor Sitting BP Location FiO2 (%) Left arm -- Physical Exam ED Course & MDM Diagnoses as of 02/25/24 1759 Urinary tract infection with hematuria, site unspecified Constipation, unspecified constipation type Dizziness Medical Decision Making Labs Reviewed CBC WITH AUTO DIFFERENTIAL - Abnormal WBC 8.6 nRBC 0.0 RBC 4.28 Hemoglobin 10.8 (*) Hematocrit 37.0 MCV 86 MCH 25.2 (*) MCHC 29.2 (*) RDW 15.0 (*) Platelets 363 Neutrophils % 65.8 Immature Granulocytes %, Automated 0.4 Lymphocytes % 18.0 Monocytes % 8.8 Eosinophils % 6.4 Basophils % 0.6 Neutrophils Absolute 5.64 (*) Immature Granulocytes Absolute, Au* 0.03 Lymphocytes Absolute 1.54 Monocytes Absolute 0.75 Eosinophils Absolute 0.55 (*) Basophils Absolute 0.05 URINALYSIS WITH REFLEX CULTURE AND MICROSCOPIC - Abnormal Color, Urine (*) Appearance, Urine Turbid (*) Specific [place], Urine 1.026 pH, Urine 6.0 Protein, Urine 100 (2+) (*) Glucose, Urine Normal Blood, Urine OVER (3+) (*) Ketones, Urine NEGATIVE Bilirubin, Urine NEGATIVE Urobilinogen, Urine Normal Nitrite, Urine NEGATIVE Leukocyte Esterase, Urine 250 [place]/ L (*) MICROSCOPIC ONLY, URINE - Abnormal WBC, Urine >50 (*) RBC, Urine >20 (*) Renal Epithelial Cells, Urine 1-2 (FEW) Bacteria, Urine 1+ (*) Hyaline Casts, Urine 2+ (*) MAGNESIUM - Normal Magnesium 1.94 COMPREHENSIVE METABOLIC PANEL - Normal Glucose 98 Sodium 144 Potassium 3.8 Chloride 107 Bicarbonate 29 Anion Gap 12 Urea Nitrogen 23 Creatinine 0.79 eGFR 78 Calcium 9.3 Albumin 4.5 Alkaline Phosphatase 83 Total Protein 6.8 AST 17 Bilirubin, Total 0.3 ALT 8 TROPONIN I, HIGH SENSITIVITY - Normal Troponin I, High Sensitivity 8 Narrative: Less than 99th percentile of normal range cutoff- Female and children under 18 years old <14 ng/L; Male <21 ng/L: Negative Repeat testing should be performed if clinically indicated. Female and children under 18 years old 14-50 ng/L; Male 21-50 ng/L: Consistent with possible cardiac damage and possible increased clinical risk. Serial measurements may help to assess extent of myocardial damage. >50 ng/L: Consistent with cardiac damage, increased clinical risk and myocardial infarction. Serial measurements may help assess extent of myocardial damage. NOTE: Children less than 1 year old may have higher baseline troponin levels and results should be interpreted in conjunction with the overall clinical context. NOTE: Troponin I testing is performed using a different testing methodology at [facility] than at other [facility]. Direct result comparisons should only be made within the same method. URINE CULTURE URINALYSIS WITH REFLEX CULTURE AND MICROSCOPIC Narrative: The following orders were created for panel order Urinalysis with Reflex Culture and Microscopic. Procedure Abnormality Status --------- ------ Urinalysis with Reflex C...[[id number]] Abnormal Final result Extra Urine Tejada Tube[[id number]] In process Please view results for these tests on the individual orders. EXTRA URINE TEJADA TUBE CT head wo IV contrast Final Result No evidence of acute cortical infarct or intracranial hemorrhage. No evidence of intracranial hemorrhage or displaced skull fracture. MACRO: None Signed by: Jason Orellana 02/25/2024 4:30 PM Dictation workstation: [id number] CT abdomen pelvis w IV contrast Final Result 1. Severe constipation with some associated obstipation. 2. Mild dilation of the bile ducts which is new from the prior. Correlate with biochemical studies. 3. In the geographic hypoattenuation in the left liver lobe with an appearance suggestive of a relatively large area of focal fatty infiltration. 4. Possible cystitis with associated right-sided upper urinary tract infection. Correlate with urinalysis and clinically.. Very mild right hydronephrosis MACRO: None Signed by: Jason Orellana 02/25/2024 4:43 PM Dictation workstation: [id number] Medical Decision Making: Patient appears well nontoxic. Vital signs otherwise unremarkable. Lab work unremarkable. Found to have UTI and treated with Rocephin. CT shows evidence of constipation. CT brain negative. Patient treated with 500 mL fluid bolus. Case discussed with patient's physician Dr. Dawood Espino who advised he will manage her constipation at home. Patient be discharged with Keflex. Advised on using MiraLAX 2 capfuls until she has a bowel movement. Advised on return for new or worsening symptoms. Stable at time of discharge. Differential Diagnoses Considered: Volume depletion, complication of known carcinoma, electrolyte abnormality, UTI, constipation Independent Interpretation of Studies: I independently interpreted: CT of the abdomen pelvis shows no intra-abdominal free air. CT brain without intracranial hemorrhage or mass. Escalation of Care: Appropriate for discharge and follow-up with primary/palliative care. Prescription Drug Consideration: Oral Keflex. Discussion of Management with Other Providers: I discussed the patient/results with: Primary physician. Procedure ECG 12 lead Performed by: Bahman Ann DO Authorized by: Bahman Ann DO ECG interpreted by ED Physician in the absence of a vacuum conditioner operator: yes Comments: EKG interpreted by Dr. Bahman Ann: Normal sinus rhythm at 87 bpm. NV interval 148 ms. QTc of [address] changes. Bahman Ann DO 02/25/24 1801 documented in this encounter [facility] Work Phone: 02-25-2024 Physician Emergency department Note Associated Order(s): ECG 12 lead HPI Chief Complaint Patient presents with Dizziness Patient complains of dizziness for 3 days. Reports dizziness is worse with quick movements and feels off balance. Denies other symptoms. EKG done at . Limitations to History: None HPI: 78-year-old female presents with concern for dizziness and abdominal distention. States that the dizziness is been present over the past 3 days. Describes it as feeling off balance whenever she gets up from a seated position or turns her head quickly. Patient also has had abdominal distention over the past 1 week. Denies any nausea, vomiting, constipation, diarrhea, abdominal pain. Does have urinary frequency as well as vaginal burning. History of recent yeast infection. Denies any fall or trauma. Additional History Obtained from: [id number] at the bedside. Physical Exam: VS: As documented in the triage note and EMR flowsheet from this visit were reviewed. Appearance: Alert. cooperative, in no acute distress. Skin: Intact, dry skin, no lesions, rash, petechiae or purpura. Eyes: PERRLA, EOMs intact, Conjunctiva pink with no redness or exudates. HENT: Normocephalic, atraumatic. Nares patent. No intraoral lesions. Neck: Supple, without meningismus. Trachea at midline. No lymphadenopathy. Pulmonary: Clear bilaterally with good chest wall excursion. No rales, rhonchi or wheezing. No accessory muscle use or stridor. Cardiac: Regular rate and rhythm, no rubs, murmurs, or gallops. Abdomen: Abdomen is soft, nontender, and nondistended. No palpable organomegaly. No rebound or guarding. No CVA tenderness. Nonsurgical abdomen. Genitourinary: Exam deferred. Musculoskeletal: Full range of motion. Pulses full and equal. No cyanosis, clubbing, or edema. Neurological: Cranial nerves are grossly intact, grossly normal sensation, no weakness, no focal findings identified. Psychiatric: Appropriate mood and affect. Aneudy Coma Scale Score: 15 Patient History Past Medical History: Diagnosis Date Cancer (Multi) MS (multiple sclerosis) (Multi) No past surgical history on file. No family history on file. Social History Tobacco Use Smoking status: Never Smokeless tobacco: Never Substance Use Topics Alcohol use: Never Drug use: Never Physical Exam ED Triage Vitals [02/25/24 1301] Temperature Heart Rate Respirations BP 36.6 C (97.8 F) 84 18 144/87 Pulse Ox Temp Source Heart Rate Source Patient Position 95 % Temporal Monitor Sitting BP Location FiO2 (%) Left arm -- Physical Exam ED Course & MDM Diagnoses as of 02/25/24 1759 Urinary tract infection with hematuria, site unspecified Constipation, unspecified constipation type Dizziness Medical Decision Making Labs Reviewed CBC WITH AUTO DIFFERENTIAL - Abnormal WBC 8.6 nRBC 0.0 RBC 4.28 Hemoglobin 10.8 (*) Hematocrit 37.0 MCV 86 MCH 25.2 (*) MCHC 29.2 (*) RDW 15.0 (*) Platelets 363 Neutrophils % 65.8 Immature Granulocytes %, Automated 0.4 Lymphocytes % 18.0 Monocytes % 8.8 Eosinophils % 6.4 Basophils % 0.6 Neutrophils Absolute 5.64 (*) Immature Granulocytes Absolute, Au* 0.03 Lymphocytes Absolute 1.54 Monocytes Absolute 0.75 Eosinophils Absolute 0.55 (*) Basophils Absolute 0.05 URINALYSIS WITH REFLEX CULTURE AND MICROSCOPIC - Abnormal Color, Urine (*) Appearance, Urine Turbid (*) Specific [place], Urine 1.026 pH, Urine 6.0 Protein, Urine 100 (2+) (*) Glucose, Urine Normal Blood, Urine OVER (3+) (*) Ketones, Urine NEGATIVE Bilirubin, Urine NEGATIVE Urobilinogen, Urine Normal Nitrite, Urine NEGATIVE Leukocyte Esterase, Urine 250 [place]/ L (*) MICROSCOPIC ONLY, URINE - Abnormal WBC, Urine >50 (*) RBC, Urine >20 (*) Renal Epithelial Cells, Urine 1-2 (FEW) Bacteria, Urine 1+ (*) Hyaline Casts, Urine 2+ (*) MAGNESIUM - Normal Magnesium 1.94 COMPREHENSIVE METABOLIC PANEL - Normal Glucose 98 Sodium 144 Potassium 3.8 Chloride 107 Bicarbonate 29 Anion Gap 12 Urea Nitrogen 23 Creatinine 0.79 eGFR 78 Calcium 9.3 Albumin 4.5 Alkaline Phosphatase 83 Total Protein 6.8 AST 17 Bilirubin, Total 0.3 ALT 8 TROPONIN I, HIGH SENSITIVITY - Normal Troponin I, High Sensitivity 8 Narrative: Less than 99th percentile of normal range cutoff- Female and children under 18 years old <14 ng/L; Male <21 ng/L: Negative Repeat testing should be performed if clinically indicated. Female and children under 18 years old 14-50 ng/L; Male 21-50 ng/L: Consistent with possible cardiac damage and possible increased clinical risk. Serial measurements may help to assess extent of myocardial damage. >50 ng/L: Consistent with cardiac damage, increased clinical risk and myocardial infarction. Serial measurements may help assess extent of myocardial damage. NOTE: Children less than 1 year old may have higher baseline troponin levels and results should be interpreted in conjunction with the overall clinical context. NOTE: Troponin I testing is performed using a different testing methodology at [facility] than at other [facility]. Direct result comparisons should only be made within the same method. URINE CULTURE URINALYSIS WITH REFLEX CULTURE AND MICROSCOPIC Narrative: The following orders were created for panel order Urinalysis with Reflex Culture and Microscopic. Procedure Abnormality Status --------- ------ Urinalysis with Reflex C...[[id number]] Abnormal Final result Extra Urine Tejada Tube[[id number]] In process Please view results for these tests on the individual orders. EXTRA URINE TEJADA TUBE CT head wo IV contrast Final Result No evidence of acute cortical infarct or intracranial hemorrhage. No evidence of intracranial hemorrhage or displaced skull fracture. MACRO: None Signed by: Jason Orellana 02/25/2024 4:30 PM Dictation workstation: [id number] CT abdomen pelvis w IV contrast Final Result 1. Severe constipation with some associated obstipation. 2. Mild dilation of the bile ducts which is new from the prior. Correlate with biochemical studies. 3. In the geographic hypoattenuation in the left liver lobe with an appearance suggestive of a relatively large area of focal fatty infiltration. 4. Possible cystitis with associated right-sided upper urinary tract infection. Correlate with urinalysis and clinically.. Very mild right hydronephrosis MACRO: None Signed by: Jason Orellana 02/25/2024 4:43 PM Dictation workstation: [id number] Medical Decision Making: Patient appears well nontoxic. Vital signs otherwise unremarkable. Lab work unremarkable. Found to have UTI and treated with Rocephin. CT shows evidence of constipation. CT brain negative. Patient treated with 500 mL fluid bolus. Case discussed with patient's physician Dr. Dawood Espino who advised he will manage her constipation at home. Patient be discharged with Keflex. Advised on using MiraLAX 2 capfuls until she has a bowel movement. Advised on return for new or worsening symptoms. Stable at time of discharge. Differential Diagnoses Considered: Volume depletion, complication of known carcinoma, electrolyte abnormality, UTI, constipation Independent Interpretation of Studies: I independently interpreted: CT of the abdomen pelvis shows no intra-abdominal free air. CT brain without intracranial hemorrhage or mass. Escalation of Care: Appropriate for discharge and follow-up with primary/palliative care. Prescription Drug Consideration: Oral Keflex. Discussion of Management with Other Providers: I discussed the patient/results with: Primary physician. Procedure ECG 12 lead Performed by: Bahman Ann DO Authorized by: Bahman Ann DO ECG interpreted by ED Physician in the absence of a vacuum conditioner operator: yes Comments: EKG interpreted by Dr. Bahman Ann: Normal sinus rhythm at 87 bpm. NV interval 148 ms. QTc of [address] changes. Bahman Ann DO 02/25/24 180 [facility] Work Phone: 02-17-2024 History of Present illness Narrative Subjective History of Present Illness Patient is here for follow-up and with multiple complaints; 1. Urinary incontinence; continuous. Patient did have alternate toxin bladder injection with no relief of symptoms. And as mentioned on my previous encounter, patient according to her words have tried all the other bladder medications with no relief. Denies having any dysuria. No fever or chills. No abdominal pain. 2. Poor appetite; patient still not having the appetite to eat much. Despite being on the mirtazapine 15 mg daily. She does report ongoing unintentional weight loss. No nausea. No early satiety. She eats only a piece of toast in the morning. And a bowl of cereal for the lunch. And sometimes a grilled cheese for dinner. She takes only half bottle of Ensure every other day because it causes diarrhea according to her words. 3. Abdominal distention; mainly gas. No abdominal cramps. No constipation. Patient is taking the MiraLAX daily and sometimes every other day. But she would have 1 bowel movement every third or fourth day. The bowel movement is very loose and mushy. No blood in it. 4. Leg edema; mainly in the left leg. Mild. Worsened by sitting. No pain. No neuropathy. No tingling or numbness. It does also get worse when she tries to ambulate more. 5. Generalized pain; patient uses Tylenol. And it does help. ESAS ([place] Symptom Assessment System) Pain: no Shortness of Breath: no Loss of Appetite: severe Nausea: no Constipation: no Tiredness: mild Drowsiness: no Anxiety: no Depression: no How you feel overall: good PPS (Palliative Performance Scale): 60% Advance Directives Code Status: full code Spokesperson: Her son Min Current Medications Current Outpatient Medications Medication Instructions aspirin 81 mg, oral, Daily RT atorvastatin (LIPITOR) 10 mg, oral, Daily RT calcium citrate-vitamin D2 250 mg-2.5 mcg (100 unit) tablet 1 tablet, oral, 2 times daily lenvatinib 20 mg daily dose (LENVIMA) 20 mg, oral, Daily RT levothyroxine (SYNTHROID, LEVOXYL) 25 mcg, oral, Daily RT mirtazapine (Remeron) 15 mg tablet 1 tablet, oral, Nightly nitrofurantoin (MACRODANTIN) 100 mg, oral, 4 times daily ondansetron (ZOFRAN) 8 mg, oral, Every 6 hours PRN phenazopyridine (Pyridium) 200 mg tablet TAKE 1 TABLET BY MOUTH THREE TIMES A DAY NEEDED FOR UP TO 5 DAYS. rivaroxaban (XARELTO) 20 mg, oral, Daily RT sertraline (Zoloft) 25 mg tablet 1 tablet, oral, Daily solifenacin (VESICARE) 5 mg, oral, Daily RT Allergies Allergies Allergen Reactions Corticosteroids (Glucocorticoids) Other Sulfa (Sulfonamide Antibiotics) Unknown Codeine GI Upset, Hives and Other hives OARRS Review I have personally reviewed the OARRS report for this patient. I have considered the risks of abuse, dependence, addiction and diversion. I believe that it is clinically appropriate for this patient to be prescribed this medication based on documented diagnosis Objective Vital Signs BP 144/79 Pulse 106 Temp 36.1 C (97 F) Resp 18 Wt 46.7 kg (102 lb 15.3 oz) SpO2 95% BMI 20.11 kg/m Physical Exam Physical Exam Constitutional: General: She is not in acute distress. Appearance: She is not ill-appearing. Comments: Awake alert and oriented x3. She frail looking and cachectic HENT: Mouth/Throat: Pharynx: Oropharynx is clear. Eyes: Pupils: Pupils are equal, round, and reactive to light. Cardiovascular: Rate and Rhythm: Normal rate and regular rhythm. Heart sounds: Normal heart sounds. Pulmonary: Effort: No respiratory distress. Breath sounds: Normal breath sounds. No wheezing or rhonchi. Abdominal: General: Abdomen is flat. Bowel sounds are normal. There is distension. Palpations: Abdomen is soft. Tenderness: There is no abdominal tenderness. Comments: tympany on percussion Musculoskeletal: General: There is very mild swelling in the left leg and left foot. Comments: Muscle wasting Skin: General: Skin is dry. Coloration: Skin is pale. Neurological: General: No focal deficit present. Psychiatric: Mood and Affect: Mood normal. Behavior: Behavior normal. Thought Content: Thought content normal. Judgment: Judgment normal. Relevant Results No results found for this or any previous visit (from the past 96 hour(s)). No images are attached to the encounter. Diagnostic Results Assessment/Plan This is a very pleasant 78-year-old female with a past medical history of multiple sclerosis in remission, constipation on MiraLAX, bilateral lower extremity DVT requiring angioplasty and currently on Xarelto, pulmonary embolism status post IVC filter placement, central retinal vein occlusion, pyelonephritis, and metastatic uterine cancer to the lymph nodes. Disease course has been complicated by pulmonary embolism and radiation-induced cystitis along with hyperactive urinary bladder with urge incontinence. Continuous incontinence-Unfortunately, Botox injection did not help. Patient has tried other medical therapy like Vesicare and oxybutynin with no help also. The etiology of this incontinence is still not clear. It was recommended that she does a bladder biopsy but patient declined. I told the patient in such a case, I would recommend that she wears depends all the time. I would avoid using a Clay catheter now especially that she is still functioning and ambulating. Diarrhea-Patient on MiraLAX every other day. Reports only 1 bowel movement every 3rd-4th day and that is mushy. Nonbloody. So no need for any further adjustments at the time being. Poor appetite-I provided a detailed explanation to the patient and her friend who came in with her as well as her son who joined by phone. I told him that unless proven otherwise, this decrease in her appetite and ongoing unintentional weight loss is secondary to an underlying cancer that is now being not treated. So by de facto, the disease is progressing and causing the poor appetite and weight loss. I told the patient that we can escalate and add more appetite stimulants like Megace and/or Marinol and even Zyprexa but since she is not receiving any treatment for the disease, I do not think appetite stimulants would help in her case. She agreed with me and demonstrated understanding. Abdominal distention-this is also most likely secondary to her underlying cancer. I offered the patient a repeat CT scan of the abdomen so we have a better understanding of the situation of the cancer but she declined for the time being. I told her if the distention is not disturbing her, then we continue to take it 1 day at a time. There is also a gas component for the abdominal distention. I encouraged ambulation. And I told her that we can also consider in the future simethicone if no relief. Leg edema-it is very mild. In the left lower extremity. This is most likely secondary to her history of DVT. Also the cancer itself can play a role. I recommended elevation when sitting in a chair. I told her that in case it becomes severe, then we can consider compressive stockings. Advance care planning-patient had decided not to pursue any further disease for the cancer. And I respected her wishes. She does not currently qualify for hospice services as she is still functional independent ADLs. So I did not introduce that yet. On the next visit, we will discuss her CODE STATUS. I spent a total of 50 minutes on the date of the service which included: preparing to see the patient, obtaining and/or reviewing separately obtained history, [id number] patient care, performing a medically appropriate examination, counseling and educating the patient/family/caregiver, ordering medications/tests, independently interpreting results (not separately reported), communicating results to the patient/family caregiver, and completing clinical documentation. (This note was generated with voice recognition software and may contain errors including spelling, grammar, syntax and misrecognition of what was dictated, that are not fully corrected) Terry Espino MD documented in this encounter [facility] Work Phone: 02-09-2024 Instructions Franklin Salmon MD - 02/09/2024 3:43 PM EDT Constipation: discussed importance of maintaining a regular consistent bowel regimen that will lead to daily bowel movement. Encouraged patient to use fiber bulking agent 1-2 servings in the evening. The following morning she should have a warm caffeinated beverage. Should aim for 35 g of fiber daily; may supplement with Miralax PRN. Move It Recipe: Mix: - 1 Cup of Prune Juice - 1 Cup of Applesauce - 1 Cup of Bran - 1/2 Cup of Flaxseed Instructions: Take two tablespoons twice a day. This mixture must be refrigerated. Alternative supplements include (use as directed): - Metamucil (psyllium) - Citrucel - Benefiber When starting Miralax - can titrate up until bowel regimen appropriate and comfortable. Can start with half cap for 1-2 weeks, then full cap for 1-2 weeks, and up as needed. documented in this encounter [facility] 02-09-2024 History of Present illness Narrative Female Pelvic Medicine & Reconstructive Surgery Post-Op Visit Rosita Kennedy is a 78 year old year old female who presents for a 4 Week post-op check s/p Procedure(s): Cystoscopy Injection of Botox into the Bladder Anesthesia: Monitored Anesthesia Care Findings: Globally erythematous with pectinea. Areas of white denuded patches. Mucosa smooth and flat in appearance. No foreign body seen; efflux seen bilaterally Estimated Blood Loss: Minimal IVF/UOP: see anesthesia report Antibiotics: 2g of cefazolin prior to skin incision Specimens: None VTE Prophylaxis: SCDs for mechanical prophylaxis Complications: None Implanted Devices: * No implants in log * Pre-Op/Pre-Procedure Diagnosis: Overactive bladder Post-Op/Post-Procedure Diagnosis: same . Post-op complications: yes The botox did not work for her. Pt having vaginal dryness, and burning. Bleeding: no Pain: yes 5/10 in vagina If you had pain related to your prolapse before surgery, has your pain resolved? Not Applicable Abnormal vaginal discharge: no PFDI-20 Do you: Usually experience pressure in the lower abdomen? Yes, somewhat bothersome (2) Usually experience heaviness or dullness in the pelvic area? Yes, quite a bit bothersome (4) Usually have a bulge or something falling out that you can see or feel in your vaginal area? No (0) Ever have to push on the vagina or around the rectum to have or complete a bowel movement? No (0) Usually experience a feeling of incomplete bladder emptying? No (0) Ever have to push up on a bulge in the vaginal area with your fingers to start or complete urination? No (0) Feel you need to strain too hard to have a bowel movement? No (0) Feel you have not completely emptied your bowels at the end of a bowel movement? Yes, moderately bothersome (3) Usually lose stool beyond your control if your stool is well formed? Yes, moderately bothersome (3) Usually lose stool beyond your control if your stool is loose? Yes, moderately bothersome (3) Usually lose gas from the rectum beyond your control? No (0) Usually have pain when you pass your stool? No (0) Experience a strong sense of urgency and have to lujan to the bathroom to have a bowel movement? No (0) Does part of your bowel ever pass through the rectum and bulge outside during or after a bowel movement? No (0) Usually experience frequent urination? Yes, quite a bit bothersome (4) Usually experience urine leakage associated with a feeling of urgency, that is, a strong sensation of needing to go to the bathroom? Yes, quite a bit bothersome (4) Usually experience urine leakage related to coughing, sneezing or laughing? Yes, quite a bit bothersome (4) Usually experience small amounts of urine leakage (that is, drops)? Yes, not at all bothersome (1) Usually experience difficulty emptying your bladder? No (0) Usually experience pain or discomfort in the lower abdomen or genital region? Yes, somewhat bothersome (2) Overall, how satisfied were you with your postoperative pain medication? Neither satisfied nor dissatisfied With regard to your expectations before surgery, did you have the amount of pain you expected, more pain, or less pain? Less pain than I expected Was the preoperative teaching you had about pain expectations helpful? Not sure Were the discharge instructions you received about pain medications helpful? Not sure Stitchdowns Toe Former offered, exam chaperoned by Veronica Payton MD OBJECTIVE: BP 128/83 General Appearance: Appears stated age, comfortable, No acute distress Abdomen: Benign, non-tender, no hernia, masses. New abdominal distension Pelvic examination: Vulva/Perineum: erythematous patches around vulva bilaterally and into perineum. Reports where she is sore Urethral Meatus:Normal location and size, no lesions Urethra: No masses, tenderness or scarring Bladder:No masses, no tenderness Vagina: atrophic Cervix: surgically absent Uterus: surgical absent Adnexa:No masses, tenderness or nodularity ASSESMENT: Rosita Kennedy is a 78 year old year old female who is post-op; stable post-operative course uncomplicated PLAN: Radiation cystitis S/p trial of mirabegron and gemtesa, unable to use AC's given glaucoma S/p botox 100 units in OR, didn't help at all Briefly discussed SNM vs PTNS, but believe there might be other therapies better directed towards radiation cystitis and may refer to urology Vulvitis Vaginal swab ordered If swab positive for yeast, treat w/ diflucan If negative will recommend course of clobetasol cream Can use Aquaphor daily PRN for sx relief Follow up 2-3mo to follow up vulva, will find out who I can send her to for urology. She will also discuss care w/ palliative physician in case he has idea for radiation cystitis Franklin Salmon MD documented in this encounter [facility] 02-09-2024 Note HNO ID: [id number] Author: FRANKLIN SALMON MD Service: ? Author Type: Physician Type: Progress Notes Filed: 02/09/2024 16:47 Note Text: Female Pelvic Medicine AND Reconstructive Surgery Post-Op Visit Rosita Kennedy is a 78 year old year old female who presents for a 4 Week post-op check s/p Procedure(s): Cystoscopy Injection of Botox into the Bladder Anesthesia: Monitored Anesthesia Care Findings: Globally erythematous with pectinea. Areas of white denuded patches. Mucosa smooth and flat in appearance. No foreign body seen; efflux seen bilaterally Estimated Blood Loss: Minimal IVF/UOP: see anesthesia report Antibiotics: 2g of cefazolin prior to skin incision Specimens: None VTE Prophylaxis: SCDs for mechanical prophylaxis Complications: None Implanted Devices: * No implants in log * Pre-Op/Pre-Procedure Diagnosis: Overactive bladder Post-Op/Post-Procedure Diagnosis: same . Post-op complications: yes The botox did not work for her. Pt having vaginal dryness, and burning. Bleeding: no Pain: yes 5/10 in vagina If you had pain related to your prolapse before surgery, has your pain resolved? Not Applicable Abnormal vaginal discharge: no PFDI-20 Do you: Usually experience pressure in the lower abdomen? Yes, somewhat bothersome (2) Usually experience heaviness or dullness in the pelvic area? Yes, quite a bit bothersome (4) Usually have a bulge or something falling out that you can see or feel in your vaginal area? No (0) Ever have to push on the vagina or around the rectum to have or complete a bowel movement? No (0) Usually experience a feeling of incomplete bladder emptying? No (0) Ever have to push up on a bulge in the vaginal area with your fingers to start or complete urination? No (0) Feel you need to strain too hard to have a bowel movement? No (0) Feel you have not completely emptied your bowels at the end of a bowel movement? Yes, moderately bothersome (3) Usually lose stool beyond your control if your stool is well formed? Yes, moderately bothersome (3) Usually lose stool beyond your control if your stool is loose? Yes, moderately bothersome (3) Usually lose gas from the rectum beyond your control? No (0) Usually have pain when you pass your stool? No (0) Experience a strong sense of urgency and have to lujan to the bathroom to have a bowel movement? No (0) Does part of your bowel ever pass through the rectum and bulge outside during or after a bowel movement? No (0) Usually experience frequent urination? Yes, quite a bit bothersome (4) Usually experience urine leakage associated with a feeling of urgency, that is, a strong sensation of needing to go to the bathroom? Yes, quite a bit bothersome (4) Usually experience urine leakage related to coughing, sneezing or laughing? Yes, quite a bit bothersome (4) Usually experience small amounts of urine leakage (that is, drops)? Yes, not at all bothersome (1) Usually experience difficulty emptying your bladder? No (0) Usually experience pain or discomfort in the lower abdomen or genital region? Yes, somewhat bothersome (2) Overall, how satisfied were you with your postoperative pain medication? Neither satisfied nor dissatisfied With regard to your expectations before surgery, did you have the amount of pain you expected, more pain, or less pain? Less pain than I expected Was the preoperative teaching you had about pain expectations helpful? Not sure Were the discharge instructions you received about pain medications helpful? Not sure Stitchdowns Toe Former offered, exam chaperoned by Veronica Payton MD OBJECTIVE: BP 128/83 General Appearance: Appears stated age, comfortable, No acute distress Abdomen: Benign, non-tender, no hernia, masses. New abdominal distension Pelvic examination: Vulva/Perineum: erythematous patches around vulva bilaterally and into perineum. Reports where she is sore Urethral Meatus:Normal location and size, no lesions Urethra: No masses, tenderness or scarring Bladder:No masses, no tenderness Vagina: atrophic Cervix: surgically absent Uterus: surgical absent Adnexa:No masses, tenderness or nodularity ASSESMENT: Rosita Kennedy is a 78 year old year old female who is post-op; stable post-operative course uncomplicated PLAN: Radiation cystitis S/p trial of mirabegron and gemtesa, unable to use AC's given glaucoma S/p botox 100 units in OR, didn't help at all Briefly discussed SNM vs PTNS, but believe there might be other therapies better directed towards radiation cystitis and may refer to urology Vulvitis Vaginal swab ordered If swab positive for yeast, treat w/ diflucan If negative will recommend course of clobetasol cream Can use Aquaphor daily PRN for sx relief Follow up 2-3mo to follow up vulva, will find out who I can send her to for urology. She will also discuss care w/ palliative physician in case he has idea for radiation cyst (more content not included)... [facility] 01-17-2024 Telephone encounter Note Called pt's Winter BERGERON; verified pt's name/. Winter reports pt has external vaginal pain with urination (contact between urine and vaginal/vulvar tissue causes burning). Winter unsure if pt has other symptoms. RN attempted to call Rosita, but calls went straight to . Called Winter back and advised her we would send a [employer] message for her to d/w Rosita and respond to later, as office is closing. Winter verbalized understanding and had no further questions. Deborah Aguilar RN January 17, 2024 4:42 PM [facility] 01-17-2024 Miscellaneous Notes Called pt's Winter BERGERON; verified pt's name/. Winter reports pt has external vaginal pain with urination (contact between urine and vaginal/vulvar tissue causes burning). Winter unsure if pt has other symptoms. RN attempted to call Rosita, but calls went straight to . Called Winter back and advised her we would send a [employer] message for her to d/w Rosita and respond to later, as office is closing. Winter verbalized understanding and had no further questions. Deborah Aguilar RN January 17, 2024 4:42 PM Pt's DIL called back and stated that the burning is on the outside and she wants to know if a culture would show something on the outside. She can be reached at [phone]. See my chart Urine culture ordered Lisseth Mccullough RN Patient called in stating she is feeling very dry, and like she may have an infection. She is also experiencing pain/burning with urination. She said a message was also sent via [employer] because she isn't feeling too good. Dtr in law would like to be called [phone] documented in this encounter [facility] 01-17-2024 Telephone encounter Note Pt's DIL called back and stated that the burning is on the outside and she wants to know if a culture would show something on the outside. She can be reached at [phone]. [facility] 01-17-2024 Telephone encounter Note See my chart Urine culture ordered Lisseth Mccullough RN [facility] 01-17-2024 Telephone encounter Note Patient called in stating she is feeling very dry, and like she may have an infection. She is also experiencing pain/burning with urination. She said a message was also sent via [employer] because she isn't feeling too good. Dtr in law would like to be called [phone] [facility] 12-28-[address] Salmon, I saw Ms. Kennedy December 27, 2023 in [facility] for pre-testing as she is scheduled for a bladder biopsy and cystoscopy with chemodenervation on January 10. Patient is currently on Xarelto for H/O PE and chronic RLE DVT. I see your office sent a letter over to the prescriber, Dr. Terry Espino, to confirm the OK to hold pre-op but I do not see a response scanned back into [facility]. Just wanted to check in to see if you have received anything further and if I can be of any assistance in obtaining anticoagulation instructions. Thank you, Kelley Stone APRN.MALIK T [facility] 12-28-[address] Salmon, I saw Ms. Kennedy December 27, 2023 in [facility] for pre-testing as she is scheduled for a bladder biopsy and cystoscopy with chemodenervation on January 10. Patient is currently on Xarelto for H/O PE and chronic RLE DVT. I see your office sent a letter over to the prescriber, Dr. Terry Espino, to confirm the OK to hold pre-op but I do not see a response scanned back into [employer]. Just wanted to check in to see if you have received anything further and if I can be of any assistance in obtaining anticoagulation instructions. Thank you, Kelley Stone APRN.MALIK documented in this encounter [facility] 12-27-2023 Instructions Kelley Stone APRN.CNP - 12/27/2023 2:42 PM EDT PATIENT PREOPERATIVE INSTRUCTIONS Franklin Salmon MD has scheduled you for your procedure at this surgery center: [facility]: [phone] -- [address] [address]. Please read below carefully for your personalized instructions. Arrival Time for Surgery: - The Surgery Center or hospital where you are having surgery will call the afternoon before surgery (or Wednesday for Wednesday surgery) with a scheduled arrival time. - If you have not heard by 4 pm, please contact the surgery center above. Please be aware that emergency situations arise, which may delay or change your surgical time. If this happens, we will notify you as soon as possible and regret any inconvenience. Dietary Restrictions: - No solid food after midnight. - You may have 12 ounces of clear liquids (water, clear juices such as apple juice or gatorade, carbonated beverages (sprite/tierra magalie), clear tea, black coffee, jello) until 2 hours before scheduled arrival at facility. - Do not drink any alcohol after midnight the night before your surgery. Medications: Unless instructed differently below, stay on all of your medications until your surgery. Pre-Surgery Med Instructions Medication Instructions XARELTO 20 mg tablet We will check with Dr. Espino regarding holding Xarelto 3 days prior to your procedure. If OK, last dose will be 5/10. levothyroxine (LEVOXYL) 25 mcg tablet Take the day of surgery with a small sip of water mirtazapine (REMERON) 15 mg tablet Take the night before surgery Methenamine Hippurate (HIPREX) 1 gram tablet Take the day of surgery with a small sip of water sertraline (ZOLOFT) 25 mg tablet Take the day of surgery with a small sip of water sertraline (ZOLOFT) 100 mg tablet Take the day of surgery with a small sip of water If you start any new medications after today's visit, please contact the surgeon's office. Blood Thinning Medications: - Stop NSAIDS (Ibuprofen, Advil, Aleve, Motrin, Celebrex, Mobic, etc.) 7 days before surgery, as directed by your surgeon. - Stop Aspirin 7 days before surgery, as directed by your surgeon. - Stop Vitamin E, ALL multi-vitamins, herbals and dietary supplements 14 days before surgery. - You may take Tylenol (Acetaminophen) or any of your pain medications that do not contain aspirin or NSAIDS as needed. Important Reminders: - Candy, mints, and tobacco products are NOT permitted the morning of surgery. - Hearing aids, dentures and glasses may be worn the morning of surgery. - NO jewelry, body piercings, makeup, hairpins or contacts are to be worn the day of surgery. If you develop symptoms such as a fever, cold, or flu, or have other changes to your health within TWO DAYS of scheduled surgery or the morning of surgery, please contact the surgery center above. Personal Belongings: -Please have photo ID and insurance cards. -If you do not have a copy of advance directives on file with us, please bring a copy with you on the day of surgery. - Leave ALL valuables and money at home or with family members. For Outpatient Procedures: - YOU MUST HAVE A RESPONSIBLE TIE TAMPER TAKE YOU HOME. A OIL WELL DRILLER OR SUPERVISOR ALUMINUM BOAT ASSEMBLY CANNOT BE MADE A RESPONSIBLE TIE TAMPER. - We recommend that a responsible person stays with you overnight to take care of you. - You cannot stay in a hotel alone after outpatient surgery. You will not be permitted to have your surgery, if you do not have someone to take care of you. If you already have an Advance Directive, please fax a copy to [phone] or email to for it to be added to your chart. If you do not have an Advance Directive, you can find the appropriate form and more information at [email or web address]. We recommend that you complete the Advance Directive form found on the website and bring it with you the day of your surgery. It can be witnessed and scanned into your chart that day. Kelley Stone APRN.CNP documented in this encounter [facility] 12-27-2023 History and physical note HISTORY AND PHYSICAL EXAMINATION SERVICE DATE: 12/27/2023 SERVICE TIME: 2:38 PM PRIMARY CARE PHYSICIAN: Bernardino Min MD Assessment Patient has the following medical conditions which may affect yfn-operative course: MULTIPLE SCLEROSIS Assessment: Currently in remission, following with PCP. Patient denies any symptoms, no current Rx. History of uterine cancer Assessment: Dx in 2013, s/p hysterectomy with BSO, pelvic lymphadenectomy. Recurrence in 2016 in lymph node of left neck and bilateral pelvis; + adenocarcinoma. Chemotherapy and radiation at this time. Radiation again in 2021 to aortocaval lymphnodes. Chemo again in 2022 until May (discontinued due to side effects). Following with palliative care. History of pulmonary embolism Assessment: H/O PE in 2019 s/p IVC filter. Going through chemotherapy at the time. Currently on Xarelto, following with palliative care/PCP, Dr. Terry Espino. History of DVT (deep vein thrombosis) Assessment: H/O extensive RLE DVT during hospitalization. S/p thrombectomy with balloon angioplasty. Taking Xarelto, following with PCP/palliative care Dr. Terry Espino. Dr. Salmon's office sent letter to prescriber regarding perioperative instructions; will touch base with their office as no response scanned into [employer] at time of [facility] appointment. Radiation cystitis Assessment: Urinary incontinence x 6 months. Patient has no feeling that she is going/needs to go. CT with moderate circumferential thickening of the wall suggestive of radiation cystitis. Symptoms refractory to medication. Scheduled for surgical intervention. Anxiety Assessment: Currently stable on Rx. Pleasant and appropriate during today's visit. Mixed hyperlipidemia Assessment: Compliant with Rx, following with PCP. Bilateral carotid artery stenosis Assessment: Bilateral carotid stenosis on 2021 ultrasound; 20-39%. No CVA history. Acquired hypothyroidism Assessment: Compliant with Rx. TSH Date Value Ref Range Status 07/09/2023 5.640 (H) 0.270 - 4.200 mIU/L Final Anemia Assessment: No current supplementation. Latest Reference Range & Units 09/27/23 14:42 Hemoglobin 11.5 - 15.5 g/dL 11.4 (L) Hematocrit 36.0 - 46.0 % 39.0 [place] Activity Status Index: METS: Walk a block or two on level ground (2.75 METs) Cannot do moderate work around the house, such as vacuuming, sweeping floors, or carrying in groceries Cannot climb a flight of stairs or walk up a hill DASI Score: 2.75 Patient denies any chest pain or undue shortness of breath with the above physical activity. Patient is partially dependent. Clinical Frailty Scale: 4. Apparently vulnerable STOP-Bang Score: Patient over 50 years old Denies snoring loudly Denies feeling tired, fatigued, or sleepy during the daytime Has not been observed to stop breathing or choking/gasping during sleep Denies having high blood pressure BMI less than or equal to 35 kg/m^2 Does not have a large neck Non-male patient STOP-Bang Score: 1 [id number] Score: Age: >=75 Sex: female CHF history: No Hypertension history: No Stroke/TIA/thromboembolism history: Yes Vascular disease history: No Diabetes history: No [id number] Score: 5 ANESTHESIA FINDINGS: Intubation History: No history of difficult intubation. No abnormal airway history Significant Anesthesia Considerations: R chest mediport none Airway History: No history of difficult airway No abnormal airway history I - PHYSICAL EVALUATION AIRWAY Patient intubated: No. Tracheostomy tube not present Mallampati: II. TM distance: >3 FB. Neck ROM: limited extension. Mouth opening: adequate. Short neck: yes. Thick neck: no Pacheco present: no Lip Bite Test: III Microretrognathia/Micronagthia/R ecessed Chin: No DENTAL Dental findings: missing tooth/teeth. Additional comments: Crowns. II - ANESTHESIA PLAN Beta Brad Monitoring Plan Post Procedure Analgesic Plan Prepared for Surgery: optimally prepared for surgery, pending [see comment]. Xarelto instructions CONSULTS: Patient does not require consults for optimization at this time Planned Anesthetic: anesthesia choice The Following Tests/Procedures Have Been Initiated: Orders Placed This Encounter XARELTO 20 mg tablet Sig: Take 1 tablet by mouth once daily. REASON FOR VISIT: Rosita Kennedy is a 78 year old female who is scheduled for BIOPSY BLADDER, CYSTOURETHROSCOPY W/INJECTION(S) FOR CHEMODENERVATION OF THE BLADDER at the request of Dr. Franklin Salmon for consultation. My final recommendation will be communicated back to the requesting physician by way of shared medical record or letter. 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 Clinically Significant Macular Edema Observation for Suspected Malignant Neoplasm Primary Open Angle Glaucoma (Poag) of Both Eyes, Moderate Stage Central Retinal Vein Occlusion With Macular Edema of Right Eye Screening for Hematuria Or Proteinuria Sensorineural Hearing Loss, Bilateral Elevated Cancer Antigen 125 (Ca-125) Stable 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 H/O Central Retinal Vein Occlusion Keratitis, Superficial, Punctate, Bilateral S/P Eye Surgery Primary Open Angle Glaucoma (Poag) of Left Eye, Moderate Stage Vision Loss of Right Eye 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, Severe Stage Microscopic Hematuria Optic Atrophy, Right Eye Severe Malnutrition (Hcc) Uterine Cancer (Hcc) History of Pulmonary Embolism History of Dvt (Deep Vein Thrombosis) Radiation Cystitis Anxiety Mixed Hyperlipidemia Bilateral Carotid Artery Stenosis Acquired Hypothyroidism Anemia COVID-19 Immunization Status Overdue - Covid-19 Vaccine (2022- season) Overdue since 08/03/2023 06/08/2023 Imm Admin: COVID-19 original vaccine, age 12+ yr, monovalent ([employer] [place] [facility]) 01/28/2023 Imm Admin: COVID-19 vaccine, age 12+ yr, bivalent (MODERNA) 05/27/2022 Imm Admin: COVID-19 vaccine, age 12+ yr, bivalent ([employer]) Only the first 3 history entries have been loaded, but more history exists. CHIEF COMPLAINT: Anesthesia Consult HPI: 78 year old female presents with radiation cystitis. Patient presents with daughter in law at today's appointment. She has had consistent incontinence for about the past 6 months. She has no sensation to know she is going. She denies hematuria, dysuria or recent UTIs. Imaging is suggestive or radiation cystitis from previous radiation treatment for uterine cancer mets. Symptoms have been refractory to medication and she is now scheduled for surgical intervention. REVIEW OF SYSTEMS: General: No weight loss, malaise or fevers. Neurological: Positive for: multiple sclerosis. Negative for: headaches, impaired sensorium, Parkinson's disease, peripheral neuropathy, seizures, TIA and strokes. Respiratory: No history of current cough or dyspnea, or pneumonia in the past 6 weeks. No history of respiratory/pulmonary symptoms or problems. Cardiovascular: Positive for: DVT/PE and hyperlipidemia Negative for: arrhythmia, atrial fibrillation, CAD, chest pain, CHF, hypertension, recent MO and murmur/valvular heart disease. GI: No history of GI symptoms or problems. No history of esophageal varices, recent ascites, or ETOH greater than 2 drinks per day. : See HPI. Negative for: nephrolithiasis and renal failure. 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 Endocrine: Positive for: hypothyroidism. Negative for: diabetes mellitus and hyperthyroidism. Hematology: Positive for: anemia and chronic anti-coagulation/platelet meds (Xarelto). Negative for: bruises/bleeds easily, factor V Leiden, thrombocytopenia and von Willebrand disease. Oncology: (+) H/O endometrial cancer Psych: Positive for: anxiety. Negative for: depression. Musculoskeletal: Positive for: swelling (L foot). Negative for: back pain. Skin: Negative for lesions, rash and itching. PAST MEDICAL HISTORY Diagnosis Date Acquired hypothyroidism Bilateral carotid artery stenosis Cataracts, bilateral COAG (chronic open-angle glaucoma) CRVO (central retinal vein occlusion) Disorder of bone and cartilage, unspecified History of DVT (deep vein thrombosis) 2022 History of pulmonary embolism Mixed hyperlipidemia Multiple sclerosis (HCC) 08/30/2001 remission currently Pseudophakia, both eyes Pyelonephritis, unspecified 01/28/2010 Pyelonephritis Uterine cancer (HCC) 08/08/2014 PAST SURGICAL HISTORY Procedure Laterality Date ANGIOPLASTY 2022 RLE due to DVT DELIVERY ONLY , low cervical X3 COLONOSCOPY 05/18/2016 Dr. Gibbs. no bx taken COLONOSCOPY, GI 1998, 2009 EYE SURGERY PROCEDURE Left 04/11/2021 Xen Gel stent EYLEA (AFLIBERCEPT) 2MG INTRAVITREAL INJECTION OD (RIGHT EYE) Right 04/02/2016 #7 INSERT ANT SEGMENT DRAIN INT 11/21/2014 iStent Implantation Left Eye IVC FILTER 2020 LIG/TRNSXJ FLP TUBE ABDL/VAG APPR UNI/BI 1976 PAST SURGICAL HISTORY OF right EYE SURGERY AGE 7 PAST SURGICAL HISTORY OF Right 11/06/2020 Xen Gel PULMONARY FUNCTION TEST 06/07/2003 XCAPSL CTRC RMVL INSJ IO LENS PROSTH W/O ECP 11/21/2014 Cataract Extraction with PC IOL/Femtosecond Laser Left Eye FAMILY HISTORY Problem Relation Age of Onset Hypertension Mother Alzheimer's Disease Mother Macular Degen Mother Glaucoma Mother Heart Father mi Diabetes Father Breast Cancer Sister Glaucoma Sister Macular Degen Maternal Grandmother Anesthesia Problems No Family History Social History Tobacco Use Smoking status: Never Smokeless tobacco: Never Vaping Use Vaping Use: Never used Substance Use Topics Alcohol use: Yes Comment: 1 glass per year Drug use: No Prior to Admission medications as of 12/27/23 7457 Medication Sig Last Dose Taking XARELTO 20 mg tablet Take 1 tablet by mouth once daily. Taking Yes levothyroxine (LEVOXYL) 25 mcg tablet Take 1 tablet by mouth once daily. Take on empty stomach. For Thyroid Taking Yes mirtazapine (REMERON) 15 mg tablet Take 1 tablet by mouth daily at bedtime. Taking Yes Methenamine Hippurate (HIPREX) 1 gram tablet Take 1 tablet by mouth twice daily with meals. Taking Yes sertraline (ZOLOFT) 25 mg tablet Take 1 tablet by mouth once daily. Taking Yes sertraline (ZOLOFT) 100 mg tablet Take 1 tablet by mouth once daily. To take along with 25 mgs to make a total of 125 mgs Taking Yes brimonidine-timolol (COMBIGAN) 0.2-0.5 % ophthalmic solution Use 1 Drop in the right eye twice daily. Use at 9 AM and 3 PM Taking Yes solifenacin (VESICARE) 5 mg tablet Take 1 tablet by mouth once daily. Patient not taking: Reported on 12/27/2023 Not Taking lenvatinib (LENVIMA) 20 mg/day (10 mg x 2) capsules Take 2 capsules (20 mg) by mouth once daily. Patient not taking: Reported on 12/27/2023 Not Taking ondansetron (ZOFRAN) 8 mg tablet Take 1 tablet by mouth every 6 hours as needed for nausea/vomiting. Patient not taking: Reported on 12/27/2023 Not Taking meloxicam (MOBIC) 15 mg tablet Take 1 tablet by mouth once daily. With food. Patient not taking: Reported on 12/27/2023 Not Taking atorvastatin (LIPITOR) 40 mg tablet Take 1 tablet by mouth daily at bedtime. For cholesterol. Patient not taking: Reported on 12/27/2023 Not Taking furosemide (LASIX) 20 mg tablet Take one tablet every day but if looses more than 10 pounds in a week then she needs to hold it. Patient not taking: Reported on 12/27/2023 Not Taking travoprost (TRAVATAN Z) 0.004 % ophthalmic drops Use 1 Drop in both eyes daily at bedtime. Patient not taking: Reported on 12/27/2023 Not Taking ondansetron orally disintegrating (ZOFRAN ODT) 4 mg disintegrating tablet Take 1 tablet by mouth every 6 hours as needed for nausea/vomiting. Patient not taking: Reported on 12/27/2023 Not Taking calcium carb/vitamin D3/vit K1 (VIACTIV ORAL) Take 1 tablet by mouth once daily. MULTIVITAMIN TABLET PO Take one(1) tablet daily. No medication comments found. ALLERGIES Allergen Reactions Codeine hives Contrast Dye [Iodin* Diarrhea Diarrhea after oral contrast. Erythromycin GI Upset Methylprednisolone Hives IV Sulfa (Sulfonamide * hives Objective PHYSICAL EXAM: General: alert and oriented and healthy appearance. Pertinent negatives noted - not distressed. Skin: normal color, no rash or lesions. HEENT: pupils equal round and pupils reactive to light. Pertinent negatives noted - no carotid bruit. Cardiovascular: regular rate and rhythm, normal S1 and S2, no rub, murmurs, or gallop. Respiratory: Lungs clear to auscultation without wheezes or rhonchi. Diminished in bilateral bases.. Abdomen: Pertinent negatives noted - no hernia and no mass. Extremities: Positive for edema (BLE, non-pitting). Neurological: Normal cognition, ambulating with walker. PAIN ASSESSMENT: VITALS: BP 128/70 Pulse 69 Temp (Src) 98.9 (Temporal) Resp 14 Ht 5' 0 (1.52m) Wt 104 lb (47.2kg) SpO2 98% BMI 20.31 kg/(m^2). Diagnostic tests reviewed for today's visit: Lab Value Units Date High Low HB 11.4 g/dL 09/27/2023 15.5 11.5 HCT 39.0 % 09/27/2023 46.0 36.0 WBC 8.17 k/uL 09/27/2023 11.00 3.70 PLT 354 k/uL 09/27/2023 400 150 NA 141 mmol/L 09/27/2023 144 136 K 4.3 mmol/L 09/27/2023 5.1 3.7 GLUC 123 mg/dL 09/27/2023 99 74 BUN 21 mg/dL 09/27/2023 21 7 CREAT 0.87 mg/dL 09/27/2023 0.96 0.58 PTSEC No results within date range. INR No results within date range. APTT No results within date range. ALT 12 U/L 07/09/2023 38 7 AST 23 U/L 07/09/2023 35 13 TBILI 0.3 mg/dL 07/09/2023 1.3 0.2 TSH 5.640 mIU/L 07/09/2023 4.200 0.270 Lab Value Units Date High Low HCGQT No results within date range. UHCG No results within date range. HCG, BODY* No results within date range. Lab Value Units Date High Low ABORHD No results within date range. ABSCREEN No results within date range. Hemoglobin A1C (%) Date Value 05/01/2020 5.6 11/14/2018 5.8 06/29/2018 5.5 Recent Results (from the past 8760 hour(s)) ECG COMPLETE Collection Time: 06/11/23 8:58 AM Result Value Ventricular Rate 87 Atrial Rate 87 P-R Interval 140 QRS Duration 66 QT Interval 356 QTC Calculation (Bazett) 428 Calculated P [place] 27 Calculated R [place] -24 Calculated T [place] 32 Impression SINUS RHYTHM WITH FREQUENT PACs MINIMAL VOLTAGE CRITERIA FOR LVH, MAY BE NORMAL VARIANT ABNORMAL ECG Reconfirmed by NANCY PARK DO ([id number]) on 06/16/2023 4:33:51 PM Recent Results (from the past 04649 hour(s)) ECHO Collection Time: 03/04/23 2:44 PM Impression CONCLUSIONS: - Exam indication: Baseline and serial evaluation in a patient undergoing therapy with cardiotoxic agents - The left ventricle is normal in size. Left ventricular systolic function is normal. EF = 60 5% (2D biplane) Grade I left ventricular diastolic dysfunction. - The right ventricle is normal in size. Right ventricular systolic function is mildly decreased. - There are no significant valvular abnormalities. - Exam was compared with the prior echocardiographic exam performed on 11/18/2021, no significant change. * * * Final * * * Instructions Given to Patient: Instructions located in the after visit summary. Patient given verbal and written preop instructions and voices comprehension and compliance. SIGNATURE: Kelley Stone APRN.CNP PATIENT NAME: Rosita Kennedy DATE: December 27, 2023 TIME: 2:38 PM PAGER/CONTACT #: [facility] 12-27-2023 History and physical note HISTORY AND PHYSICAL EXAMINATION SERVICE DATE: 12/27/2023 SERVICE TIME: 2:38 PM PRIMARY CARE PHYSICIAN: Bernardino Min MD Assessment Patient has the following medical conditions which may affect yfn-operative course: MULTIPLE SCLEROSIS Assessment: Currently in remission, following with PCP. Patient denies any symptoms, no current Rx. History of uterine cancer Assessment: Dx in 2013, s/p hysterectomy with BSO, pelvic lymphadenectomy. Recurrence in 2016 in lymph node of left neck and bilateral pelvis; + adenocarcinoma. Chemotherapy and radiation at this time. Radiation again in 2021 to aortocaval lymphnodes. Chemo again in 2022 until May (discontinued due to side effects). Following with palliative care. History of pulmonary embolism Assessment: H/O PE in 2019 s/p IVC filter. Going through chemotherapy at the time. Currently on Xarelto, following with palliative care/PCP, Dr. Terry Espino. History of DVT (deep vein thrombosis) Assessment: H/O extensive RLE DVT during hospitalization. S/p thrombectomy with balloon angioplasty. Taking Xarelto, following with PCP/palliative care Dr. Terry Espino. Dr. Salmon's office sent letter to prescriber regarding perioperative instructions; will touch base with their office as no response scanned into [employer] at time of [facility] appointment. Radiation cystitis Assessment: Urinary incontinence x 6 months. Patient has no feeling that she is going/needs to go. CT with moderate circumferential thickening of the wall suggestive of radiation cystitis. Symptoms refractory to medication. Scheduled for surgical intervention. Anxiety Assessment: Currently stable on Rx. Pleasant and appropriate during today's visit. Mixed hyperlipidemia Assessment: Compliant with Rx, following with PCP. Bilateral carotid artery stenosis Assessment: Bilateral carotid stenosis on 2021 ultrasound; 20-39%. No CVA history. Acquired hypothyroidism Assessment: Compliant with Rx. TSH Date Value Ref Range Status 07/09/2023 5.640 (H) 0.270 - 4.200 mIU/L Final Anemia Assessment: No current supplementation. Latest Reference Range & Units 09/27/23 14:42 Hemoglobin 11.5 - 15.5 g/dL 11.4 (L) Hematocrit 36.0 - 46.0 % 39.0 [place] Activity Status Index: METS: Walk a block or two on level ground (2.75 METs) Cannot do moderate work around the house, such as vacuuming, sweeping floors, or carrying in groceries Cannot climb a flight of stairs or walk up a hill DASI Score: 2.75 Patient denies any chest pain or undue shortness of breath with the above physical activity. Patient is partially dependent. Clinical Frailty Scale: 4. Apparently vulnerable STOP-Bang Score: Patient over 50 years old Denies snoring loudly Denies feeling tired, fatigued, or sleepy during the daytime Has not been observed to stop breathing or choking/gasping during sleep Denies having high blood pressure BMI less than or equal to 35 kg/m^2 Does not have a large neck Non-male patient STOP-Bang Score: 1 [id number] Score: Age: >=75 Sex: female CHF history: No Hypertension history: No Stroke/TIA/thromboembolism history: Yes Vascular disease history: No Diabetes history: No [id number] Score: 5 ANESTHESIA FINDINGS: Intubation History: No history of difficult intubation. No abnormal airway history Significant Anesthesia Considerations: R chest mediport none Airway History: No history of difficult airway No abnormal airway history I - PHYSICAL EVALUATION AIRWAY Patient intubated: No. Tracheostomy tube not present Mallampati: II. TM distance: >3 FB. Neck ROM: limited extension. Mouth opening: adequate. Short neck: yes. Thick neck: no Pacheco present: no Lip Bite Test: III Microretrognathia/Micronagthia/R ecessed Chin: No DENTAL Dental findings: missing tooth/teeth. Additional comments: Crowns. II - ANESTHESIA PLAN Beta Brad Monitoring Plan Post Procedure Analgesic Plan Prepared for Surgery: optimally prepared for surgery, pending [see comment]. Xarelto instructions CONSULTS: Patient does not require consults for optimization at this time Planned Anesthetic: anesthesia choice The Following Tests/Procedures Have Been Initiated: Orders Placed This Encounter XARELTO 20 mg tablet Sig: Take 1 tablet by mouth once daily. REASON FOR VISIT: Rosita Kennedy is a 78 year old female who is scheduled for BIOPSY BLADDER, CYSTOURETHROSCOPY W/INJECTION(S) FOR CHEMODENERVATION OF THE BLADDER at the request of Dr. Franklin Salmon for consultation. My final recommendation will be communicated back to the requesting physician by way of shared medical record or letter. 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 Clinically Significant Macular Edema Observation for Suspected Malignant Neoplasm Primary Open Angle Glaucoma (Poag) of Both Eyes, Moderate Stage Central Retinal Vein Occlusion With Macular Edema of Right Eye Screening for Hematuria Or Proteinuria Sensorineural Hearing Loss, Bilateral Elevated Cancer Antigen 125 (Ca-125) Stable 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 H/O Central Retinal Vein Occlusion Keratitis, Superficial, Punctate, Bilateral S/P Eye Surgery Primary Open Angle Glaucoma (Poag) of Left Eye, Moderate Stage Vision Loss of Right Eye 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, Severe Stage Microscopic Hematuria Optic Atrophy, Right Eye Severe Malnutrition (Hcc) Uterine Cancer (Hcc) History of Pulmonary Embolism History of Dvt (Deep Vein Thrombosis) Radiation Cystitis Anxiety Mixed Hyperlipidemia Bilateral Carotid Artery Stenosis Acquired Hypothyroidism Anemia COVID-19 Immunization Status Overdue - Covid-19 Vaccine ( season) Overdue since 08/03/2023 06/08/2023 Imm Admin: COVID-19 original vaccine, age 12+ yr, monovalent ([employer] [facility]) 01/28/2023 Imm Admin: COVID-19 vaccine, age 12+ yr, bivalent (MODERNA) 05/27/2022 Imm Admin: COVID-19 vaccine, age 12+ yr, bivalent ([employer]) Only the first 3 history entries have been loaded, but more history exists. CHIEF COMPLAINT: Anesthesia Consult HPI: 78 year old female presents with radiation cystitis. Patient presents with daughter in law at today's appointment. She has had consistent incontinence for about the past 6 months. She has no sensation to know she is going. She denies hematuria, dysuria or recent UTIs. Imaging is suggestive or radiation cystitis from previous radiation treatment for uterine cancer mets. Symptoms have been refractory to medication and she is now scheduled for surgical intervention. REVIEW OF SYSTEMS: General: No weight loss, malaise or fevers. Neurological: Positive for: multiple sclerosis. Negative for: headaches, impaired sensorium, Parkinson's disease, peripheral neuropathy, seizures, TIA and strokes. Respiratory: No history of current cough or dyspnea, or pneumonia in the past 6 weeks. No history of respiratory/pulmonary symptoms or problems. Cardiovascular: Positive for: DVT/PE and hyperlipidemia Negative for: arrhythmia, atrial fibrillation, CAD, chest pain, CHF, hypertension, recent MO and murmur/valvular heart disease. GI: No history of GI symptoms or problems. No history of esophageal varices, recent ascites, or ETOH greater than 2 drinks per day. : See HPI. Negative for: nephrolithiasis and renal failure. 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 Endocrine: Positive for: hypothyroidism. Negative for: diabetes mellitus and hyperthyroidism. Hematology: Positive for: anemia and chronic anti-coagulation/platelet meds (Xarelto). Negative for: bruises/bleeds easily, factor V Leiden, thrombocytopenia and von Willebrand disease. Oncology: (+) H/O endometrial cancer Psych: Positive for: anxiety. Negative for: depression. Musculoskeletal: Positive for: swelling (L foot). Negative for: back pain. Skin: Negative for lesions, rash and itching. PAST MEDICAL HISTORY Diagnosis Date Acquired hypothyroidism Bilateral carotid artery stenosis Cataracts, bilateral COAG (chronic open-angle glaucoma) CRVO (central retinal vein occlusion) Disorder of bone and cartilage, unspecified History of DVT (deep vein thrombosis) 2022 History of pulmonary embolism Mixed hyperlipidemia Multiple sclerosis (HCC) 08/30/2001 remission currently Pseudophakia, both eyes Pyelonephritis, unspecified 01/28/2010 Pyelonephritis Uterine cancer (HCC) 08/08/2014 PAST SURGICAL HISTORY Procedure Laterality Date ANGIOPLASTY 2022 RLE due to DVT DELIVERY ONLY , low cervical X3 COLONOSCOPY 05/18/2016 Dr. Gibbs. no bx taken COLONOSCOPY, GI 1998, 2009 EYE SURGERY PROCEDURE Left 04/11/2021 Xen Gel stent EYLEA (AFLIBERCEPT) 2MG INTRAVITREAL INJECTION OD (RIGHT EYE) Right 04/02/2016 #7 INSERT ANT SEGMENT DRAIN INT 11/21/2014 iStent Implantation Left Eye IVC FILTER 2020 LIG/TRNSXJ FLP TUBE ABDL/VAG APPR UNI/BI 1976 PAST SURGICAL HISTORY OF right EYE SURGERY AGE 7 PAST SURGICAL HISTORY OF Right 11/06/2020 Xen Gel PULMONARY FUNCTION TEST 06/07/2003 XCAPSL CTRC RMVL INSJ IO LENS PROSTH W/O ECP 11/21/2014 Cataract Extraction with PC IOL/Femtosecond Laser Left Eye FAMILY HISTORY Problem Relation Age of Onset Hypertension Mother Alzheimer's Disease Mother Macular Degen Mother Glaucoma Mother Heart Father mi Diabetes Father Breast Cancer Sister Glaucoma Sister Macular Degen Maternal Grandmother Anesthesia Problems No Family History Social History Tobacco Use Smoking status: Never Smokeless tobacco: Never Vaping Use Vaping Use: Never used Substance Use Topics Alcohol use: Yes Comment: 1 glass per year Drug use: No Prior to Admission medications as of 12/27/23 1449 Medication Sig Last Dose Taking XARELTO 20 mg tablet Take 1 tablet by mouth once daily. Taking Yes levothyroxine (LEVOXYL) 25 mcg tablet Take 1 tablet by mouth once daily. Take on empty stomach. For Thyroid Taking Yes mirtazapine (REMERON) 15 mg tablet Take 1 tablet by mouth daily at bedtime. Taking Yes Methenamine Hippurate (HIPREX) 1 gram tablet Take 1 tablet by mouth twice daily with meals. Taking Yes sertraline (ZOLOFT) 25 mg tablet Take 1 tablet by mouth once daily. Taking Yes sertraline (ZOLOFT) 100 mg tablet Take 1 tablet by mouth once daily. To take along with 25 mgs to make a total of 125 mgs Taking Yes brimonidine-timolol (COMBIGAN) 0.2-0.5 % ophthalmic solution Use 1 Drop in the right eye twice daily. Use at 9 AM and 3 PM Taking Yes solifenacin (VESICARE) 5 mg tablet Take 1 tablet by mouth once daily. Patient not taking: Reported on 12/27/2023 Not Taking lenvatinib (LENVIMA) 20 mg/day (10 mg x 2) capsules Take 2 capsules (20 mg) by mouth once daily. Patient not taking: Reported on 12/27/2023 Not Taking ondansetron (ZOFRAN) 8 mg tablet Take 1 tablet by mouth every 6 hours as needed for nausea/vomiting. Patient not taking: Reported on 12/27/2023 Not Taking meloxicam (MOBIC) 15 mg tablet Take 1 tablet by mouth once daily. With food. Patient not taking: Reported on 12/27/2023 Not Taking atorvastatin (LIPITOR) 40 mg tablet Take 1 tablet by mouth daily at bedtime. For cholesterol. Patient not taking: Reported on 12/27/2023 Not Taking furosemide (LASIX) 20 mg tablet Take one tablet every day but if looses more than 10 pounds in a week then she needs to hold it. Patient not taking: Reported on 12/27/2023 Not Taking travoprost (TRAVATAN Z) 0.004 % ophthalmic drops Use 1 Drop in both eyes daily at bedtime. Patient not taking: Reported on 12/27/2023 Not Taking ondansetron orally disintegrating (ZOFRAN ODT) 4 mg disintegrating tablet Take 1 tablet by mouth every 6 hours as needed for nausea/vomiting. Patient not taking: Reported on 12/27/2023 Not Taking calcium carb/vitamin D3/vit K1 (VIACTIV ORAL) Take 1 tablet by mouth once daily. MULTIVITAMIN TABLET PO Take one(1) tablet daily. No medication comments found. ALLERGIES Allergen Reactions Codeine hives Contrast Dye [Iodin* Diarrhea Diarrhea after oral contrast. Erythromycin GI Upset Methylprednisolone Hives IV Sulfa (Sulfonamide * hives Objective PHYSICAL EXAM: General: alert and oriented and healthy appearance. Pertinent negatives noted - not distressed. Skin: normal color, no rash or lesions. HEENT: pupils equal round and pupils reactive to light. Pertinent negatives noted - no carotid bruit. Cardiovascular: regular rate and rhythm, normal S1 and S2, no rub, murmurs, or gallop. Respiratory: Lungs clear to auscultation without wheezes or rhonchi. Diminished in bilateral bases.. Abdomen: Pertinent negatives noted - no hernia and no mass. Extremities: Positive for edema (BLE, non-pitting). Neurological: Normal cognition, ambulating with walker. PAIN ASSESSMENT: VITALS: BP 128/70 Pulse 69 Temp (Src) 98.9 (Temporal) Resp 14 Ht 5' 0 (1.52m) Wt 104 lb (47.2kg) SpO2 98% BMI 20.31 kg/(m^2). Diagnostic tests reviewed for today's visit: Lab Value Units Date High Low HB 11.4 g/dL 09/27/2023 15.5 11.5 HCT 39.0 % 09/27/2023 46.0 36.0 WBC 8.17 k/uL 09/27/2023 11.00 3.70 PLT 354 k/uL 09/27/2023 400 150 NA 141 mmol/L 09/27/2023 144 136 K 4.3 mmol/L 09/27/2023 5.1 3.7 GLUC 123 mg/dL 09/27/2023 99 74 BUN 21 mg/dL 09/27/2023 21 7 CREAT 0.87 mg/dL 09/27/2023 0.96 0.58 PTSEC No results within date range. INR No results within date range. APTT No results within date range. ALT 12 U/L 07/09/2023 38 7 AST 23 U/L 07/09/2023 35 13 TBILI 0.3 mg/dL 07/09/2023 1.3 0.2 TSH 5.640 mIU/L 07/09/2023 4.200 0.270 Lab Value Units Date High Low HCGQT No results within date range. UHCG No results within date range. HCG, BODY* No results within date range. Lab Value Units Date High Low ABORHD No results within date range. ABSCREEN No results within date range. Hemoglobin A1C (%) Date Value 05/01/2020 5.6 11/14/2018 5.8 06/29/2018 5.5 Recent Results (from the past 8760 hour(s)) ECG COMPLETE Collection Time: 06/11/23 8:58 AM Result Value Ventricular Rate 87 Atrial Rate 87 P-R Interval 140 QRS Duration 66 QT Interval 356 QTC Calculation (Bazett) 428 Calculated P [place] 27 Calculated R [place] -24 Calculated T [place] 32 Impression SINUS RHYTHM WITH FREQUENT PACs MINIMAL VOLTAGE CRITERIA FOR LVH, MAY BE NORMAL VARIANT ABNORMAL ECG Reconfirmed by NANCY PARK DO ([id number]) on 06/16/2023 4:33:51 PM Recent Results (from the past 55419 hour(s)) ECHO Collection Time: 03/04/23 2:44 PM Impression CONCLUSIONS: - Exam indication: Baseline and serial evaluation in a patient undergoing therapy with cardiotoxic agents - The left ventricle is normal in size. Left ventricular systolic function is normal. EF = 60 5% (2D biplane) Grade I left ventricular diastolic dysfunction. - The right ventricle is normal in size. Right ventricular systolic function is mildly decreased. - There are no significant valvular abnormalities. - Exam was compared with the prior echocardiographic exam performed on 11/18/2021, no significant change. * * * Final * * * Instructions Given to Patient: Instructions located in the after visit summary. Patient given verbal and written preop instructions and voices comprehension and compliance. SIGNATURE: Kelley Stone APRN.CNP PATIENT NAME: Rosita Kennedy DATE: December 27, 2023 TIME: 2:38 PM PAGER/CONTACT #: documented in this encounter [facility] 12-24-2023 Telephone encounter Note Pt did not take trospium and solifenacin concurrently. Trospium was discontinued and solifenacin initially prescribed at 11/18/23 OV. Deborah Aguilar RN December 24, 2023 4:05 PM [facility] 12-24-2023 Miscellaneous Notes Pt did not take trospium and solifenacin concurrently. Trospium was discontinued and solifenacin initially prescribed at 11/18/23 OV. Deborah Aguilar RN December 24, 2023 4:05 PM Reason for call: other - Provider name: Dr Salmon Additional comments: MAGY torres mailed letter Drug Utilization review program provides educational information regarding the patient drug therapy. Duplication. Solifenacin and Trospium. Letter scan into [employer] Recommendation: routed to nurse triage pool Last visit in this department: Visit date not found Last distance health visit in this department: Visit date not found Next visit in this department: Visit date not found documented in this encounter [facility] 12-24-2023 Telephone encounter Note Reason for call: other - Provider name: Dr Salmon Additional comments: MAGY torres mailed letter Drug Utilization review program provides educational information regarding the patient drug therapy. Duplication. Solifenacin and Trospium. Letter scan into epic Recommendation: routed to nurse triage pool Last visit in this department: Visit date not found Last distance health visit in this department: Visit date not found Next visit in this department: Visit date not found [facility] Work Phone: 12-24-2023 Telephone encounter Note Called Winter; verified pt's name/. Confirmed that order is for Botox, and that per Dr. Salmon's notes from [facility], no biopsies are planned. Winter verbalized understanding and had no further questions. Surgery 01/11/24 Panel 1 Surgeon Role Service Franklin Salmon MD Primary Urology Procedure: BIOPSY BLADDER Laterality Anesthesia Op Region N/A Monitored Anesthesia Care Bladder Procedure: CYSTOURETHROSCOPY W/INJECTION(S) FOR CHEMODENERVATION OF THE BLADDER Laterality Anesthesia Op Region N/A Monitored Anesthesia Care Bladder LVV - Dr. Salmon 12/16/23 Impression: Rosita Kennedy is a 78 year old female with radiation cystitis. Plan: Plan for Cystoscopy with botox under sedation in December NO biopsies - will defer at this time Plan to hold xarelto 2-3 days prior - letter sent to Dr. Espino for recommendation (she was seeing different PCP but prefers to switch to [facility] at this time) All questions answered Deborah Aguilar RN December 24, 2023 10:40 AM [facility] 12-24-2023 Miscellaneous Notes Called Winter; verified pt's name/. Confirmed that order is for Botox, and that per Dr. Salmon's notes from [facility], no biopsies are planned. Winter verbalized understanding and had no further questions. Surgery 01/11/24 Panel 1 Surgeon Role Service Franklin Salmon MD Primary Urology Procedure: BIOPSY BLADDER Laterality Anesthesia Op Region N/A Monitored Anesthesia Care Bladder Procedure: CYSTOURETHROSCOPY W/INJECTION(S) FOR CHEMODENERVATION OF THE BLADDER Laterality Anesthesia Op Region N/A Monitored Anesthesia Care Bladder CLARICE Salmon 12/16/23 Impression: Roista Kennedy is a 78 year old female with radiation cystitis. Plan: Plan for Cystoscopy with botox under sedation in December NO biopsies - will defer at this time Plan to hold xarelto 2-3 days prior - letter sent to Dr. Espino for recommendation (she was seeing different PCP but prefers to switch to [facility] at this time) All questions answered Deborah Aguilar RN December 24, 2023 10:40 AM Separate encounter initiated by Shanae Ford at 0849: Reason for call: other - Provider name: Dr Salmon Additional comments: pt daughter in law called, they received a message pt will have bladder bx but the last office visit with Dr. Salmon they was told she would not, so they feel she should not have bladder bx. Please advise Recommendation: routed to nurse triage pool Last visit in this department: Visit date not found Last distance health visit in this department: Visit date not found Next visit in this department: Visit date not found Will manage pt concerns in this encounter. Patient daughter in law Veronica called in because they were under the impression the patient was having Botox on January [address] Salmon, and that currently states Bladder Biopsy. The patient does not want a biopsy. The family is very concerned and confused. Veronica can be reached at [phone] documented in this encounter [facility] 12-24-2023 Telephone encounter Note Pt concerns being addressed in separate encounter. Deborah Aguilar RN December 24, 2023 10:34 AM [facility] 12-24-2023 Miscellaneous Notes Pt concerns being addressed in separate encounter. Deborah Aguilar RN December 24, 2023 10:34 AM Reason for call: other - Provider name: Dr Salmon Additional comments: pt daughter in law called, they received a message pt will have bladder bx but the last office visit with Dr. Salmon they was told she would not, so they feel she should not have bladder bx. Please advise Recommendation: routed to nurse triage pool Last visit in this department: Visit date not found Last distance health visit in this department: Visit date not found Next visit in this department: Visit date not found documented in this encounter [facility] 12-24-2023 Telephone encounter Note Separate encounter initiated by Shanae Ford at 0849: Reason for call: other - Provider name: Dr Salmon Additional comments: pt daughter in law called, they received a message pt will have bladder bx but the last office visit with Dr. Salmon they was told she would not, so they feel she should not have bladder bx. Please advise Recommendation: routed to nurse triage pool Last visit in this department: Visit date not found Last distance health visit in this department: Visit date not found Next visit in this department: Visit date not found Will manage pt concerns in this encounter. [facility] 12-24-2023 Telephone encounter Note Patient daughter in law Veronica called in because they were under the impression the patient was having Botox on January [address] Salmon, and that currently states Bladder Biopsy. The patient does not want a biopsy. The family is very concerned and confused. Veronica can be reached at [phone] [facility] 12-24-2023 Telephone encounter Note Reason for call: other - Provider name: Dr Salmon Additional comments: pt daughter in law called, they received a message pt will have bladder bx but the last office visit with Dr. Salmon they was told she would not, so they feel she should not have bladder bx. Please advise Recommendation: routed to nurse triage pool Last visit in this department: Visit date not found Last [facility] health visit in this department: Visit date not found Next visit in this department: Visit date not found [facility] Work Phone: 12-17-2023 Instructions Estela Zhang - 12/17/2023 8:14 AM EDT Images from the original note were not included. HELPFUL PRE-SURGICAL INFORMATION Preparing your skin for surgery Your doctor has asked that you use a special type of soap before surgery, which will help prevent infections after surgery. This soap is called Chlorhexidine, and is sold as Hibiclens, Exidine, and Betasept. You will need a 4 oz. bottle. You will use this soap to wash your body from the neck down. DO NOT use the soap on your head or face. Directions: Use 1/2 of the 4 oz. bottle to wash your body in the shower the night before surgery. Use the other 1/2 bottle to wash your body in the shower the morning of your surgery. DO NOT shave the skin on your belly, genitals, or upper thighs for several days before your surgery. Other information It is your responsibility to call your primary care or cardiology office to make an appointment if they require seeing you for Medical Clearance. This is at the discretion of each physician. Completed Medical Clearance forms must be faxed or dropped off to our office at least 72 hours prior to your surgery date. For your personal safety, you must be accompanied by a responsible person to drive you home. YOU MAY NOT TAKE A BUS, SCAT, OR CAB. You will need to get the following supplies at the pharmacy before your surgery: Prescriptions Stool softener (Colace or generic docusate sodium) Medications Blood Thinners- for example, Aspirin, baby Aspirin, Coumadin, Heparin, Plavix, Vitamin E, Multivitamin, Fish Oil, Flax Seed, [place], Ginkgo, Ginseng, [place]'s Wort, Tumeric, and anti-inflammatory medications including Motrin, Advil, Aleve, etc. MUST be discontinued 7 days prior to surgery. You are responsible for contacting the physician who is monitoring these medications to let them know you will be stopping them during this time. If your physician requires a different plan of action, please contact our office. Diabetic Medications- If you are taking any form of Metformin or Glucophage,or insulin, please consult your primary care physician for directions on holding these medications prior to surgery. Continue to take all other scheduled medications, unless your surgeon instructs you otherwise. You will not be allowed to eat or drink after midnight before your surgery - however, you may take your scheduled oral medications with a sip of water - just enough to get the medications down. Stretching Exercises Starting 5 days before surgery, we recommend that you perform stretching exercises to decrease pain after surgery. We recommend stretching at least 3 times per day every day before surgery. Stretch 1: While lying on your back on the bed or a floor mat Hug your RIGHT knee up to your chest while your left leg is straight on the bed or floor. Hold for 10 seconds. Extend RIGHT leg and rest it on the bed or floor. Rest for 10 seconds. Repeat exercise with the LEFT leg. Hug both knees to chest. Hold for 10 seconds. Straighten both legs and rest them on the bed or floor. Stretch 2: While standing Bend forward at waist and let your arms hang down towards the floor. You may rest your arms on a table or counter for support. Hold for 10 seconds. PATIENT INSTRUCTIONS PRIOR TO SURGERY Please read these instructions carefully. Your surgery may be cancelled if you do not follow these instructions. GENERAL Do not wear jewelry, body piercing(s), makeup, nail dominican, hairpins, or contacts on the day of surgery. Leave valuables and money at home or with family members. If you have Obstructive Sleep Apnea and use a CPAP/BiPAP machine, bring your mask, tubing, and machine with you on the day of surgery. INFECTION PREVENTION Please notify your doctor if you have any signs of an infection (i.e. fever, severe cough, nasal congestion, pain with urination, abnormal vaginal discharge, etc). Hand washing is extremely important in preventing infection (for both you as the patient and for the caregivers). HOSPITALIZATION Before you leave the hospital, you typically need to be able to eat/drink, urinate, and have your pain controlled with oral medication. Your surgeon or other members of your surgeon s team will discuss any other specific medical issues related to your discharge with you. Your surgeon may order intermittent compression sleeves. These are massaging leg pumps to help prevent blood clots after surgery. It is also very important that you walk as soon as possible and as frequently as possible after surgery. This will help decrease your risk of blood clots, exercise your lungs and speed up your recovery after surgery. If you are admitted to the hospital overnight, you will be given an incentive spirometer, which is a breathing machine that will help make sure that you are taking deep breaths and expanding your lungs while in the hospital. [facility] TE[facility] At the [facility], we have a multidisciplinary team of caregivers that includes fellows, residents, nurse practitioners (production drilling machine operator), physician assistants (PAs), clinical nurse specialists (CNSs), nurses, medical assistants (MAs), patient care nursing assistants (PCNAs), social workers, porter sample case and many others. We all have different roles and responsibilities but we all are here to help you. If you spend the night in the hospital, a physician from your care team will see you the day after your surgery. At times, scheduling does not permit your surgeon to see you in the hospital the day after surgery. If this occurs, another physician on the urogynecology care team will see you in the hospital. THE DAY BEFORE SURGERY If you are having surgery at [facility]: On the day before your surgery, you must call [phone] to find out your surgery arrival time. If you are having surgery at a [facility] ([facility] Amb[facility] surgery center, [facility]): You will receive a call the day before surgery to give you your surgery arrival time. THE DAY OF SURGERY/CHECK IN Surgery Location Parking Check-in Location [facility] [address] [place] [address] [address] or ammunition storage superintendent parking available DESK [address]1 A map is located in Your Surgical Guide Book. The online version of the surgical guide book can be found at: [email or web address] [facility] [address] [place], [place] Parking garage connected to hospital or ammunition storage superintendent Registration desk, first floor, [facility] [address] [place], [place] Parking lot in front of building [id number] (elevator to lower level) [facility] [address] [place], [place] Parking garage next to hospital or ammunition storage superintendent Atrium, W1 Surgical Waiting Desk [facility] [address] [facility]. [place], [place] Parking garage across from main entrance. Main entrance [facility] [address], [place] Park in the back of the hospital, go to Entrance A. Take elevators to 1st floor and enter into the Surgery Department POSTOP INSTRUCTIONS Resume activey as tolerated. PAIN MANAGEMENT When you go home, use oral acetaminophen (Tylenol) and ibuprofen (Motrin) as directed. We recommend rotating the timing of these medications so that you are taking one of these medications every 3 to [address], you can help prevent pain. Some pain medications can cause constipation. You should take a stool softener (i.e. colace) if you are taking these medications. If urination causes excessive burning, you may pour clean water over the vulva as you urinate. A yfn bottle may be helpful. Drink plenty of fluids to help keep your urine more dilute. You may apply an ice pack or cool compress over your incision to minimize swelling. Do not use for more than 20 minutes at a time. You may have been prescribed an opioid medication, also known as a narcotic pill. This is usually oxycodone. You may be familiar with the medication Percocet, which is a combination of oxycodone and acetaminophen. These opiate medications have side effects like nausea or vomiting, constipation, and sleepiness. You should only take them if your pain is not controlled by ibuprofen and/or acetaminophen. Please be sure to dispose of leftover pain medication after you have recovered. You may dispose of unused narcotic medications in the trash with an unpleasant substance such as coffee grounds or cat litter. You can also check FDA.gov to assess which medications can be safely flushed down the toilet. There are locations to dispose of unused medications at three [facility] locations: [facility] pharmacy, [facility] pharmacy, and the Pharmacy at the Main [place] for [facility] (inside the parking garage on the first floor). CYSTOSCOPY HOMEGOING INSTRUCTIONS You have undergone a cystoscopy procedure where a telescope was inserted into your bladder through your urethra. What to expect: You may have a burning sensation during urination and/or blood-tinged urine. These symptoms will normally subside within 24 hours and with increased fluid intake. When to call the physician s office: If you have a fever of 100.4 degrees Fahrenheit or higher If you are unable to urinate If your urine becomes bloody and does not clear with increased fluid intake. If after 24 hours, you have signs of a urinary tract infection WHEN TO CALL YOUR DOCTOR: Fever (>100.4 F or 38.0 C) or chills. If you cannot urinate for 3-5 hours or are only able to urinate small amounts. Incision problems such as redness, warmth, swelling, or foul-smelling drainage. Severe nausea or persistent vomiting. Bright red vaginal bleeding (soaking >1 pad/hour) or foul smelling vaginal drainage. Severe pain not relieved with pain medication. Pain and swelling in your legs, especially if it is only on one side and not the other. Pain with urination, cloudy urine, or foul-smelling urine. Or if you have any other problems or questions. CALL 911 OR GO TO THE EMERGENCY ROOM IF YOU HAVE: shortness of breath, difficulty breathing, or chest pain. UROGYNECOLOGY PHYSICIAN CONTACT INFORMATION During business hours, these numbers connect to your doctor s office. During the evening and weekends, these numbers will connect you to the answering service to speak with the doctor swimming pool serviceperson. Dr. Franklin Salmon MD [place] Office Wednesday through Wednesday 8:00am-4:00pm [place] Office Trupti Messer, MALIK Kay, MALIK Hurtado, MALIK Zhang, MALIK Gardner, ART PREPARATOR Please DO NOT use MyChart for post-surgery concerns. documented in this encounter [facility] 12-17-2023 Note HNO ID: [id number] Author: ?, ?, ? Service: ? Author Type: ? Type: Progress Notes Filed: 12/17/2023 14:17 Note Text: DATE OF SERVICE: 12/17/2023 PROBLEM: Rosita Kennedy presents for pre-op teaching. PRE-OP DIAGNOSIS: Radiation cystitis SCHEDULED SURGERY AND DATE: 12/29/23 BIOPSY BLADDER PRIMARY SURGEON: Franklin Salmon MD NURSING PREOP ASSESSMENT: Fevers, chills, cough, or nasal congestion: No Vaginal itching, burning, discharge, or odor: No Pain with urination, frequency, urgency, cloudy or foul smelling urine: No If yes to any of the above then MD notified: Not Applicable ADVANCED CARE PLANNING: Does the patient have an advanced directive: Yes Does [facility] have a copy of the patient's advanced directive: Yes Was advanced directive given to the patient: PATIENT LEARNING ASSESSMENT: Individual patient/family learning needs evaluated and addressed: Yes Cognitive ability: Alert and oriented Motivation to learn: Interested Factors affecting learning: None Physical limitations affecting learning: None Patient learns best by: Verbal Instruction Method of instruction: Verbal instruction Instructions provided to: Patient via telephone. Written material provided prior to education appointment. Family support: Unable to assess - Family not present PRE- AND POST-OPERATIVE TEACHING Pre-operative teaching and supplemental material provided and reviewed with patient: Written pre-op and post-op instructions Antibacterial soap: not indicated Pre-operative instructions provided and reviewed with patient/family: No eating, drinking, or smoking after midnight prior to surgery unless otherwise directed No alcohol the day before surgery Medications as prescribed by anesthesia, internal medicine, surgeon, or NEWS DEPARTMENT INTERN Stop NSAIDs, Aspirin (ASA), vitamins, herbal supplements, herbal teas, and diet pills 7-10 days prior to surgery OK to take tylenol prn pain unless otherwise directed by physician Call surgery coordinators if any other questions about surgery date or pre-op appointments Bowel prep instructions: Magnesium citrate (10 oz) and Dulcolax (10mg) per protocol NPO after midnight Day of surgery instructions provided and reviewed with patient/family: Arrival time (call surgical coordinators on the office day prior to surgery for verification) No jewelry, body piercing, makeup, contacts, lotions, nail dominican on fingers, or anything in hair on arrival to surgery Wear low healed shoes and loose fitting clothing Leave all valuables at home or with a family member Directions to [facility] and the [facility] Parking/parking validation on the day prior to surgery Holding area Placement of IV Surgical positioning Family waiting area Surgical recovery room Post-operative instructions provided and reviewed with patient/family: SEE PATIENT INSTRUCTION SECTION FOR DETAILS. ACTIVITY - No heavy lifting (>5-10 lbs), no pushing/pulling, OK to climb stairs DRIVING - No driving for 3 weeks unless prior approval from MD, OK to ride in a car. DIET - Advance diet as tolerated and as ordered by MD, drink 8 glasses of water a day, eat a diet high in protein and fiber unless otherwise directed by MD. CATHETER - Will be inserted during surgery, you may go home with a catheter for 7-10 days and will have to come back to the office for a voiding trial, UTI symptoms reviewed and patient instructed to notify MD of any of these symptoms. INCISION CARE - Keep incision clean and dry, steve to be removed 7-10 days after surgery, steristrips do not need to be removed by MD VULVAR CARE - Sitz baths TID and prn, keep vulva clean/dry/open to air, apply medicated cream as prescribed by surgeon. BATHING - OK to shower after surgery unless otherwise directed by MD, no tub baths. PAIN MEDICATION - IV pain medication after surgery, IV WEIGHT CONTROL ENGINEER if ordered by MD, discharged home with a prescription for PO pain medication, pain management after surgery, side effects of pain medication (including constipation, dizziness, drowsiness, and medication interactions). VAGINAL CARE - Pelvic rest x6 weeks unless otherwise directed by MD. DVT PROPHYLAXIS - Early ambulation, SCDs, injectable anticoagulants (heparin, lovenox, etc) RESPIRATORY - Incentive spirometer, coughing/deep breathing exercises, ambulation. RETURN TO WORK - As directed by physician, please send any FMLA papers to physician's law secretary. SYMPTOMS TO NOTIFY MD - Fever, chills, nausea, vomiting, increased or severe pain, heavy vaginal bleeding, foul smelling vaginal drainage, pain or swelling in extremities. URGENT SYMPTOMS - Call 911 or go to ER if any shortness of breath, difficulty breathing, or chest pain. HOW TO CONTACT PHYSICIAN - Physician's office phone number given to patient, if after hours patient instructed to call folded towel machine operator and ask for swimming pool serviceperson [employer] or [employer] onc resident. WAYNE program offered to alberto (more content not included)... [facility] 12-17-2023 History of Present illness Narrative DATE OF SERVICE: 12/17/2023 PROBLEM: Rosita Kennedy presents for pre-op teaching. PRE-OP DIAGNOSIS: Radiation cystitis SCHEDULED SURGERY AND DATE: 12/29/23 BIOPSY BLADDER PRIMARY SURGEON: Franklin Salmon MD NURSING PREOP ASSESSMENT: Fevers, chills, cough, or nasal congestion: No Vaginal itching, burning, discharge, or odor: No Pain with urination, frequency, urgency, cloudy or foul smelling urine: No If yes to any of the above then MD notified: Not Applicable ADVANCED CARE PLANNING: Does the patient have an advanced directive: Yes Does [facility] have a copy of the patient's advanced directive: Yes Was advanced directive given to the patient: PATIENT LEARNING ASSESSMENT: Individual patient/family learning needs evaluated and addressed: Yes Cognitive ability: Alert and oriented Motivation to learn: Interested Factors affecting learning: None Physical limitations affecting learning: None Patient learns best by: Verbal Instruction Method of instruction: Verbal instruction Instructions provided to: Patient via telephone. Written material provided prior to education appointment. Family support: Unable to assess - Family not present PRE- AND POST-OPERATIVE TEACHING Pre-operative teaching and supplemental material provided and reviewed with patient: Written pre-op and post-op instructions Antibacterial soap: not indicated Pre-operative instructions provided and reviewed with patient/family: No eating, drinking, or smoking after midnight prior to surgery unless otherwise directed No alcohol the day before surgery Medications as prescribed by anesthesia, internal medicine, surgeon, or NEWS DEPARTMENT INTERN Stop NSAIDs, Aspirin (ASA), vitamins, herbal supplements, herbal teas, and diet pills 7-10 days prior to surgery OK to take tylenol prn pain unless otherwise directed by physician Call surgery coordinators if any other questions about surgery date or pre-op appointments Bowel prep instructions: Magnesium citrate (10 oz) and Dulcolax (10mg) per protocol NPO after midnight Day of surgery instructions provided and reviewed with patient/family: Arrival time (call surgical coordinators on the office day prior to surgery for verification) No jewelry, body piercing, makeup, contacts, lotions, nail dominican on fingers, or anything in hair on arrival to surgery Wear low healed shoes and loose fitting clothing Leave all valuables at home or with a family member Directions to [facility] and [facility] Parking/parking validation on the day prior to surgery Holding area Placement of IV Surgical positioning Family waiting area Surgical recovery room Post-operative instructions provided and reviewed with patient/family: SEE PATIENT INSTRUCTION SECTION FOR DETAILS. ACTIVITY - No heavy lifting (>5-10 lbs), no pushing/pulling, OK to climb stairs DRIVING - No driving for 3 weeks unless prior approval from MD, OK to ride in a car. DIET - Advance diet as tolerated and as ordered by MD, drink 8 glasses of water a day, eat a diet high in protein and fiber unless otherwise directed by MD. CATHETER - Will be inserted during surgery, you may go home with a catheter for 7-10 days and will have to come back to the office for a voiding trial, UTI symptoms reviewed and patient instructed to notify MD of any of these symptoms. INCISION CARE - Keep incision clean and dry, steve to be removed 7-10 days after surgery, steristrips do not need to be removed by MD VULVAR CARE - Sitz baths TID and prn, keep vulva clean/dry/open to air, apply medicated cream as prescribed by surgeon. BATHING - OK to shower after surgery unless otherwise directed by MD, no tub baths. PAIN MEDICATION - IV pain medication after surgery, IV WEIGHT CONTROL ENGINEER if ordered by MD, discharged home with a prescription for PO pain medication, pain management after surgery, side effects of pain medication (including constipation, dizziness, drowsiness, and medication interactions). VAGINAL CARE - Pelvic rest x6 weeks unless otherwise directed by MD. DVT PROPHYLAXIS - Early ambulation, SCDs, injectable anticoagulants (heparin, lovenox, etc) RESPIRATORY - Incentive spirometer, coughing/deep breathing exercises, ambulation. RETURN TO WORK - As directed by physician, please send any FMLA papers to physician's law secretary. SYMPTOMS TO NOTIFY MD - Fever, chills, nausea, vomiting, increased or severe pain, heavy vaginal bleeding, foul smelling vaginal drainage, pain or swelling in extremities. URGENT SYMPTOMS - Call 911 or go to ER if any shortness of breath, difficulty breathing, or chest pain. HOW TO CONTACT PHYSICIAN - Physician's office phone number given to patient, if after hours patient instructed to call folded towel machine operator and ask for swimming pool serviceperson [employer] or [employer] onc resident. WAYNE program offered to patient: No, Additional teaching as indicated by patient/family learning needs. PATIENT LEARNING EVALUATION & FOLLOW UP PLAN: Patient verbalizes understanding of pre- and post-operative instructions but reinforcement still needed. Follow up plan: Contact information given. Patient has a post-op appointment scheduled: Yes Referral (recommentation): Educator: Estela Zhang [facility] documented in this encounter [facility] 12-16-2023 Note HNO ID: [id number] Author: FRANKLIN SALMON MD Service: ? Author Type: Physician Type: Progress Notes Filed: 12/16/2023 16:29 Note Text: PHONE CALL Female Pelvic Medicine AND Reconstructive Surgery Follow-Up Rosita Kennedy is a 78 year old female, who presents for a follow-up of radiation cystitis. History since last visit: Has seen palliative care physician, Dr. Dawood Espino. I had received phone call that there were other options discussed with Rosita including bladder micro radiation or weekly bladder cleansing. Rosita and son Rivera and daughter in law Winter on the call. Said they did not know about the above treatment - Dr. Espino was very in favor of the botox. Plan for Botox under sedation in December as previously discussed. OBJECTIVE: There were no vitals taken for this visit. PHONE CALL Impression: Rosita Kennedy is a 78 year old female with radiation cystitis. Plan: Plan for Cystoscopy with botox under sedation in December NO biopsies - will defer at this time Plan to hold xarelto 2-3 days prior - letter sent to Dr. Espino for recommendation (she was seeing different PCP but prefers to switch to [facility] at this time) All questions answered Franklin Salmon MD [facility] 12-16-2023 History of Present illness Narrative PHONE CALL Female Pelvic Medicine & Reconstructive Surgery Follow-Up Rosita Kennedy is a 78 year old female, who presents for a follow-up of radiation cystitis. History since last visit: Has seen palliative care physician, Dr. Dawood Espino. I had received phone call that there were other options discussed with Rosita including bladder micro radiation or weekly bladder cleansing. Rosita and son Rivera and daughter in law Winter on the call. Said they did not know about the above treatment - Dr. Espino was very in favor of the botox. Plan for Botox under sedation in December as previously discussed. OBJECTIVE: There were no vitals taken for this visit. PHONE CALL Impression: Rosita Kennedy is a 78 year old female with radiation cystitis. Plan: Plan for Cystoscopy with botox under sedation in December NO biopsies - will defer at this time Plan to hold xarelto 2-3 days prior - letter sent to Dr. 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 Patient was first diagnosed with well differentiated endometrioid carcinoma back on June 2014. On August 2014, she had a hysterectomy with bilateral salpingo-oophorectomy, bilateral pelvic lymphadenectomy, bilateral periaortic lymphadenectomy and cystoscopy. Then on September 2016, patient had disease recurrence in the lymph nodes of left neck and bilateral pelvis. Biopsies came back positive for adenocarcinoma. So patient was given 6 cycles of palliative chemotherapy. Then this followed by radiation therapy. On March 2018, patient had disease progression so her treatment was switched. Then on August 2018, she developed pulmonary embolism s/p IVC filter placement. On November 2021, PET scan showed hypermetabolic activity in the aortocaval lymphadenopathy. This was followed by radiation therapy to the area. On August 2022, patient was hospitalized for urinary tract infection associated with dehydration and acute kidney injury. She developed an extensive right lower extremity DVT for which she was placed on heparin drip and she underwent thrombectomy with balloon angioplasty of the right lower extremity. On October 2022, PET scan showed a new retrocrural lymph nodes suspicious for metastasis. Patient unfortunately continued to have disease progression and another cycle of chemotherapy was administered around February 2023. On April 2023, repeat PET scan showed worsening metastatic disease with enlarged left subpectoral and axillary lymph nodes with central necrosis along with worsening paraesophageal and retrocrural adenopathy. There was also new hypermetabolic soft tissue thickening involving the right paraspinal region of T10. Patient continued to do chemotherapy until May 2023 when she elected to discontinue that given the side effects she developed. On the other hand, patient started having urinary incontinence. CT scan of the pelvis on 09/28/2023 showed moderate circumferential thickening of the wall of the rinary bladder with increased urothelial enhancement. Findings were highly suspicious for radiation cystitis. Cystoscopy was done a month later. There were concerns of malignancy also. Biopsy was recommended but patient elected to defer that. Patient referred to palliative care for advanced care planning and symptom management Upon encounter now, patient sitting comfortably in her chair. Her daughter is with her. Patient still lives by herself at home. Still independent ADLs. She reported the following issues; 1. Incontinence; sometimes associated with hematuria. It has been waxing and waning. Oral therapy has failed according to her words. So she is not anymore on any anticholinergics. And she is due for Botox injection on January 10. 2. Constipation; patient said that she takes MiraLAX daily. But noticed that sometimes she has been having loose bowel movements. She thought that this would be related to the hlaf bottle of Ensure that she takes. 3. Abdominal cramps; mainly associated with the diarrhea. She would get relief after that. 4. Poor appetite with ongoing unintentional weight loss 5. Distended abdomen with gas Patient still independent ADLs but cannot do any tasks in the house. She does have advanced directives. ESAS ([place] Symptom Assessment System) Pain: no Shortness of Breath: no Loss of Appetite: Severe Nausea: no Constipation: no Tiredness: no Drowsiness: no Anxiety: no Depression: no How you feel overall: Good PPS (Palliative Performance Scale): 70% Advance Directives Code Status: DNR CCA Spokesperson: Her son Min Current Medications Current Outpatient Medications Medication Instructions aspirin 81 mg, oral, Daily RT atorvastatin (LIPITOR) 10 mg, oral, Daily RT calcium citrate-vitamin D2 250 mg-2.5 mcg (100 unit) tablet 1 tablet, oral, 2 times daily lenvatinib 20 mg daily dose (LENVIMA) 20 mg, oral, Daily RT levothyroxine (SYNTHROID, LEVOXYL) 25 mcg, oral, Daily RT mirtazapine (Remeron) 15 mg tablet 1 tablet, oral, Nightly nitrofurantoin (MACRODANTIN) 100 mg, oral, 4 times daily ondansetron (ZOFRAN) 8 mg, oral, Every 6 hours PRN phenazopyridine (Pyridium) 200 mg tablet TAKE 1 TABLET BY MOUTH THREE TIMES A DAY NEEDED FOR UP TO 5 DAYS. rivaroxaban (XARELTO) 20 mg, oral, Daily RT sertraline (Zoloft) 25 mg tablet 1 tablet, oral, Daily solifenacin (VESICARE) 5 mg, oral, Daily RT Allergies Allergies Allergen Reactions Corticosteroids (Glucocorticoids) Other Sulfa (Sulfonamide Antibiotics) Unknown Codeine GI Upset, Hives and Other hives OARRS Review I have personally reviewed the OARRS report for this patient. I have considered the risks of abuse, dependence, addiction and diversion. I believe that it is clinically appropriate for this patient to be prescribed this medication based on documented diagnosis Objective Vital Signs BP 126/82 Pulse 90 Temp 36.3 C (97.3 F) Resp 18 Wt 46.5 kg (102 lb 8.2 oz) SpO2 93% BMI 20.02 kg/m Physical Exam Physical Exam Constitutional: General: She is not in acute distress. Appearance: She is not ill-appearing. Comments: Awake alert and oriented x3. She is very frail looking and cachectic HENT: Mouth/Throat: Pharynx: Oropharynx is clear. Eyes: Pupils: Pupils are equal, round, and reactive to light. Cardiovascular: Rate and Rhythm: Normal rate and regular rhythm. Heart sounds: Normal heart sounds. Pulmonary: Effort: No respiratory distress. Breath sounds: Normal breath sounds. No wheezing or rhonchi. Abdominal: General: Abdomen is flat. Bowel sounds are normal. There is distension. Palpations: Abdomen is soft. Tenderness: There is no abdominal tenderness. Comments: Temporary on percussion Musculoskeletal: General: No swelling. Comments: Muscle wasting Skin: General: Skin is dry. Coloration: Skin is pale. Neurological: General: No focal deficit present. Psychiatric: Mood and Affect: Mood normal. Behavior: Behavior normal. Thought Content: Thought content normal. Judgment: Judgment normal. Relevant Results No results found for this or any previous visit (from the past 96 hour(s)). No images are attached to the encounter. Diagnostic Results Assessment/Plan This is a very pleasant 78-year-old female with a past medical history of multiple sclerosis in remission, constipation on MiraLAX, right lower extremity DVT requiring angioplasty and currently on Xarelto, pulmonary embolism status post IVC filter placement, central retinal vein occlusion, pyelonephritis, and metastatic uterine cancer to the lymph nodes. Disease course has been complicated by pulmonary embolism and radiation-induced cystitis along with hyperactive urinary bladder with urge incontinence. Urge incontinence-patient due for Botox injection next months. I told the patient that this would be the next best thing to do as other noninvasive therapies fail. She is not taking any more the Vesicare currently. I told her that in case bleeding recurred, we may need to consider holding the Xarelto. Diarrhea-loose nonbloody bowel movements that are intermittent. Patient thought that this is related to the half bottle of the Ensure that she is drinking daily. I told her this is less likely and rather it is more related to the MiraLAX. I recommended either cutting half dose of the MiraLAX or taking it every other day. Poor appetite-patient already on mirtazapine. I told her that poor appetite is unfortunately one of the findings with progressive cancer. My recommendation is not to take any other appetite stimulants as patient is not seeking any further cancer directed therapy. She is agreeable with that. Advance care planning-I had a very lengthy discussion with the patient. I introduced the practice of palliative care and the services it provides. I then reviewed at length with patient/family the clinical diagnosis/medical problems that the patient presented with and the treatments provided so far. We discussed the implications of the current circumstances and option plans going forward. We then reviewed at length the nature of the patient's primary disease--metastatic endometrial adenocarcinoma, its progression, and potential complications in the long run. I then tried to my best answering all questions patient/family had and attending to their concerns via reflective listening. Support and empathy was provided throughout the encounter. Patient and daughter demonstrated good understanding of all the information I provided. We agreed to take it now 1 day at a time. And I will remain supportive and standby for any help needed. I told the patient that for now, she is still active and independent ADLs and to take it 1 day at a time and to have her Botox injections done. And I will follow-up with her in the office as needed. I spent a total of 75 minutes on the date of the service which included: preparing to see the patient, obtaining and/or reviewing separately obtained history, [id number] patient care, performing a medically appropriate examination, counseling and educating the patient/family/caregiver, ordering medications/tests, independently interpreting results (not separately reported), communicating results to the patient/family caregiver, and completing clinical documentation. (This note was generated with voice recognition software and may contain errors including spelling, grammar, syntax and misrecognition of what was dictated, that are not fully corrected) Terry Espino MD documented in this encounter [facility] Work Phone: 12-09-2023 Miscellaneous Notes Pt son calling. Would like to give update and discuss issues mother is having. Please contact him at [phone] documented in this encounter [facility] 12-08-2023 Miscellaneous Notes Called patient's son Rivera and he called the patient on [address], pt accepted 01/11/24 surgery date at , scheduled pre & post op appts and informed pt teaching appt will not appear on [employer] documented in this encounter [facility] 12-08-2023 Miscellaneous Notes 3rd attempt to contact the patient to schedule surgery. Lvm & sent [employer] message 2nd attempt to contact the patient to schedule surgery. lvm 1st attempt to contact the patient to schedule surgery. lvm documented in this encounter [facility] 12-03-2023 Miscellaneous Notes Addended by: JOCELYNN GARDNER on: 12/03/2023 04:50 PM Modules accepted: Orders I called and spoke with Rosita's son, Rivera, in follow up. Given last OV note and pt's desire to defer all workup for bladder lesion and pursue comfort care, her difficulty providing a specimen, and her challenges getting to a [facility] location, I would not recommend an ED visit at this time. He is in agreement with this. Script for empiric treatment and pyridium sent to pharmacy on file. Recommend she start antibiotic now for presumed UTI; she can take pyridium concurrently for dysuria to see if this provides her some relief as well. Please have her notify the office if her symptoms persist after completing antibiotic course, or worsen at any time. Rivera was appreciative of the call and verbalized understanding. The following approved medication requests have been transmitted electronically. Requested Prescriptions Signed Prescriptions Disp Refills nitrofurantoin monohydrate and macrocrystal (MACROBID) 100 mg capsule 14 capsule 0 Sig: Take 1 capsule by mouth two times a day for 7 days. Authorizing Provider: JOCELYNN GARDNER phenazopyridine (PYRIDIUM) 200 mg tablet 15 tablet 0 Sig: Take 1 tablet by mouth three times a day as needed for up to 5 days. Authorizing Provider: JOCELYNN GARDNER APRN.ART PREPARATOR Called and spoke with pts son Rivera who is listed as patients emergency contact in [employer]. Rivera states his mom currently has blood in her urine. She is also having some pain and burning. Pt also reports some dizziness. A urine culture order was placed when pt has a virtual visit with Dr. Salmon on 11/30. Per pts son, pt has a hard time leaving or providing urine samples. Pts hospice nurse was at the home today and was unable to obtain a sample from the pt. Pt also lives in [place] and she does not live close to a [facility]. Allergies: Codeine Comment:hives Contrast Dye [Iodin* Diarrhea Comment:Diarrhea after oral contrast. Erythromycin GI Upset Methylprednisolone Hives Comment:IV Sulfa (Sulfonamide * Comment:hives Pharmacy verified and confirmed in epic Pt currently takes Hiprex daily for frequent UTI's Routing to [facility]rog[facility] NEWS DEPARTMENT INTERN's to please advise next steps Last office visit: 12/01/2023 [facility] Impression: Rosita Kennedy is a 78 year old female with Radiation cystitis, bladder lesion Bladder findings on cysto c/w radiation cystitis, but also concerning for bladder cancer. Had CT scan in 08/2023 for uterine cancer mgmt without evidence of pelvic disease, but concerning on cystoscopy. Discussed with Rosita and her family that biopsy is the recommended next step, with if it is cancer discussion of possible resection and treatment, but that discussion is with urologist. I am unable to provide more information about treatment at this time. Rosita does not desire to know if the abnormal lesions on her bladder are malignant or not, as she does not desire further evaluation and cancer treatment, If needed. Rosita also does not desire further management of uterine cancer treatment if needed. She desires improved quality of life, and desires botox treatment (see below). We did discuss with her daughter in law the possibility of a tumor that grows in the bladder and might prevent botox from working if bladder tissue integrity changes, but at this time Rosita wishes to just focus on treatment of her symptoms instead of further evaluation of this abnormal appearing tissue. After discussion with sons and daughter in laws, plan is to treat UUI symptoms with botox and defer evaluation of abnormal tissue. Rosita and her family are in agreement with this plan, all questions answered. Will let Dr. Roberts know of our discussion. UUI Plan for botox 100 units, chart routed to Bethany esparza She has tried sanctura without improvement in her symptoms, also has tried behavioral modifications without improvement She has a small bladder capacity, with terminal DO at 150mL during simple cystometrics on exam. Medication unlikely to be helpful and recommend treatment with third line therapy given her severe symptoms Follow up for office botox 100 units Franklin Salmon MD Patient son Rivera Kennedy called into TRANSMIT[employer] office. URO/POLITICAL RESEARCH SCIENTIST nurses are not in today at [place]. Patients son has concerns re blood in patients his mothers urine. Can someone please reach out to son at [phone]. He is her ER contact. Thanks Suzie Carver LPN documented in this encounter [facility] 12-02-2023 Miscellaneous Notes Botox referral received for 100 units -- 1st injection. CPT codes added. Will monitor status. PPX antibiotics: Will need Blood thinners: Xarelto, Aspirin 81mg LV: 12/01/[address] Salmon Impression: Rosita Kennedy is a 78 year old female with Radiation cystitis, bladder lesion Bladder findings on cysto c/w radiation cystitis, but also concerning for bladder cancer. Had CT scan in 08/2023 for uterine cancer mgmt without evidence of pelvic disease, but concerning on cystoscopy. Discussed with Rosita and her family that biopsy is the recommended next step, with if it is cancer discussion of possible resection and treatment, but that discussion is with urologist. I am unable to provide more information about treatment at this time. Rosita does not desire to know if the abnormal lesions on her bladder are malignant or not, as she does not desire further evaluation and cancer treatment, If needed. Rosita also does not desire further management of uterine cancer treatment if needed. She desires improved quality of life, and desires botox treatment (see below). We did discuss with her daughter in law the possibility of a tumor that grows in the bladder and might prevent botox from working if bladder tissue integrity changes, but at this time Rosita wishes to just focus on treatment of her symptoms instead of further evaluation of this abnormal appearing tissue. After discussion with sons and daughter in laws, plan is to treat UUI symptoms with botox and defer evaluation of abnormal tissue. Rosita and her family are in agreement with this plan, all questions answered. Will let Dr. Roberts know of our discussion. UUI Plan for botox 100 units, chart routed to Bethany esparza She has tried sanctura without improvement in her symptoms, also has tried behavioral modifications without improvement She has a small bladder capacity, with terminal DO at 150mL during simple cystometrics on exam. Medication unlikely to be helpful and recommend treatment with third line therapy given her severe symptoms Follow up for office botox 100 units MD Franchesca Cortés RN December 02, 2023 11:57 AM documented in this encounter [facility] 12-01-2023 Note HNO ID: [id number] Author: FRANKLIN SALMON MD Service: ? Author Type: Physician Type: Progress Notes Filed: 12/01/2023 16:09 Note Text: Video visit Female Pelvic Medicine AND Reconstructive Surgery Follow-Up Rosita Kennedy is a 78 year old female, who presents for a follow-up of radiation cystitis, bladder lesion on cysto on 11/17. Last telephone encounter with Winter 11/18/23: After discussion cystoscopy and images with some of my co partners I recommend repeat cystoscopy with bladder biopsy sooner than 3 months. Likely there are radiation changes, but concern for malignancy as well. Her symptoms are severe, and while she has already tried one anticholinergic, trialing another now but I am not confident she will see much improvement and recommend bladder botox. She has tried and failed behavioral modifications. With radiation cystitis, Bladder Botox 100 units would be the next best step. Last - she has decided not to proceed with follow up PET [facility] for her metastatic uterine cancer. Last CT in 08/2023 did not reveal pelvic disease, but PET is better evaluation. Possible she has developed malignancy regardless in her bladder. Winter will discus with Rosita red if they want to proceed with bladder biopsy. I discussed next step would be urology consult and management, if desired. ticket scheduler to call. If Rosita has additional questions she can call our office and schedule virtual visit (or in person) with me prior to. Findings: Small capacity bladder with appearance of radiation cystitis. Inflamed areas and at bladder base and approximately 8 oclock some raised areas. Global erythema. Findings consistent with radiation cystitis, but borderline concerning for dysplasia. Here with family to discuss RBA of bladder biopsy. OBJECTIVE: There were no vitals taken for this visit. General: Well appearing, alert, in no acute distress, well-hydrated, well nourished. Impression: Rosita Kennedy is a 78 year old female with Radiation cystitis, bladder lesion Bladder findings on cysto c/w radiation cystitis, but also concerning for bladder cancer. Had CT scan in 08/2023 for uterine cancer mgmt without evidence of pelvic disease, but concerning on cystoscopy. Discussed with Rosita and her family that biopsy is the recommended next step, with if it is cancer discussion of possible resection and treatment, but that discussion is with urologist. I am unable to provide more information about treatment at this time. Rosita does not desire to know if the abnormal lesions on her bladder are malignant or not, as she does not desire further evaluation and cancer treatment, If needed. Rosita also does not desire further management of uterine cancer treatment if needed. She desires improved quality of life, and desires botox treatment (see below). We did discuss with her daughter in law the possibility of a tumor that grows in the bladder and might prevent botox from working if bladder tissue integrity changes, but at this time Rosita wishes to just focus on treatment of her symptoms instead of further evaluation of this abnormal appearing tissue. After discussion with sons and daughter in laws, plan is to treat UUI symptoms with botox and defer evaluation of abnormal tissue. Rosita and her family are in agreement with this plan, all questions answered. Will let Dr. Roberts know of our discussion. UUI Plan for botox 100 units, chart routed to Bethany esparza She has tried sanctura without improvement in her symptoms, also has tried behavioral modifications without improvement She has a small bladder capacity, with terminal DO at 150mL during simple cystometrics on exam. Medication unlikely to be helpful and recommend treatment with third line therapy given her severe symptoms Follow up for office botox 100 units Franklin Luis Antonio, MD [facility] 12-01-2023 History of Present illness Narrative Video visit Female Pelvic Medicine & Reconstructive Surgery Follow-Up Rosita Kennedy is a 78 year old female, who presents for a follow-up of radiation cystitis, bladder lesion on cysto on 11/17. Last telephone encounter with Winter 11/18/23: After discussion cystoscopy and images with some of my co partners I recommend repeat cystoscopy with bladder biopsy sooner than 3 months. Likely there are radiation changes, but concern for malignancy as well. Her symptoms are severe, and while she has already tried one anticholinergic, trialing another now but I am not confident she will see much improvement and recommend bladder botox. She has tried and failed behavioral modifications. With radiation cystitis, Bladder Botox 100 units would be the next best step. Last - she has decided not to proceed with follow up PET scan with [facility] for her metastatic uterine cancer. Last CT in 08/2023 did not reveal pelvic disease, but PET is better evaluation. Possible she has developed malignancy regardless in her bladder. Winter will discus with Rosita red if they want to proceed with bladder biopsy. I discussed next step would be urology consult and management, if desired. ticket scheduler to call. If Rosita has additional questions she can call our office and schedule virtual visit (or in person) with me prior to. Findings: Small capacity bladder with appearance of radiation cystitis. Inflamed areas and at bladder base and approximately 8 oclock some raised areas. Global erythema. Findings consistent with radiation cystitis, but borderline concerning for dysplasia. Here with family to discuss RBA of bladder biopsy. OBJECTIVE: There were no vitals taken for this visit. General: Well appearing, alert, in no acute distress, well-hydrated, well nourished. Impression: Rosita Kennedy is a 78 year old female with Radiation cystitis, bladder lesion Bladder findings on cysto c/w radiation cystitis, but also concerning for bladder cancer. Had CT scan in 08/2023 for uterine cancer mgmt without evidence of pelvic disease, but concerning on cystoscopy. Discussed with Rosita and her family that biopsy is the recommended next step, with if it is cancer discussion of possible resection and treatment, but that discussion is with urologist. I am unable to provide more information about treatment at this time. Rosita does not desire to know if the abnormal lesions on her bladder are malignant or not, as she does not desire further evaluation and cancer treatment, If needed. Rosita also does not desire further management of uterine cancer treatment if needed. She desires improved quality of life, and desires botox treatment (see below). We did discuss with her daughter in law the possibility of a tumor that grows in the bladder and might prevent botox from working if bladder tissue integrity changes, but at this time Rosita wishes to just focus on treatment of her symptoms instead of further evaluation of this abnormal appearing tissue. After discussion with sons and daughter in laws, plan is to treat UUI symptoms with botox and defer evaluation of abnormal tissue. Rosita and her family are in agreement with this plan, all questions answered. Will let Dr. Roberts know of our discussion. UUI Plan for botox 100 units, chart routed to Bethany esparza She has tried sanctura without improvement in her symptoms, also has tried behavioral modifications without improvement She has a small bladder capacity, with terminal DO at 150mL during simple cystometrics on exam. Medication unlikely to be helpful and recommend treatment with third line therapy given her severe symptoms Follow up for office botox 100 units Franklin Salmon MD documented in this encounter [facility] 11-19-2023 Miscellaneous Notes Addended by: FRANKLIN SALMON on: 11/19/2023 04:14 PM Modules accepted: Orders documented in this encounter [facility] 11-19-2023 Note HNO ID: [id number] Author: FRANKLIN SALMON MD Service: ? Author Type: Physician Type: Progress Notes Filed: 11/19/2023 16:14 Note Text: Tried to call Rosita, unsuccessful at reaching her, spoke with her [id number] Winter who is present to many appointments. After discussion cystoscopy and images with some of my co partners I recommend repeat cystoscopy with bladder biopsy sooner than 3 months. Likely there are radiation changes, but concern for malignancy as well. Her symptoms are severe, and while she has already tried one anticholinergic, trialing another now but I am not confident she will see much improvement and recommend bladder botox. She has tried and failed behavioral modifications. With radiation cystitis, Bladder Botox 100 units would be the next best step. Last - she has decided not to proceed with follow up PET scan with [facility] for her metastatic uterine cancer. Last CT in 08/2023 did not reveal pelvic disease, but PET is better evaluation. Possible she has developed malignancy regardless in her bladder. Winter will discus with Rosita red if they want to proceed with bladder biopsy. I discussed next step would be urology consult and management, if desired. ticket scheduler to call. If Rosita has additional questions she can call our office and schedule virtual visit (or in person) with me prior to. All questions answered. Franklin Salmon MD [facility] 11-19-2023 History of Present illness Narrative Tried to call Rosita, unsuccessful at reaching her, spoke with her [id number] Winter who is present to many appointments. After discussion cystoscopy and images with some of my co partners I recommend repeat cystoscopy with bladder biopsy sooner than 3 months. Likely there are radiation changes, but concern for malignancy as well. Her symptoms are severe, and while she has already tried one anticholinergic, trialing another now but I am not confident she will see much improvement and recommend bladder botox. She has tried and failed behavioral modifications. With radiation cystitis, Bladder Botox 100 units would be the next best step. Last - she has decided not to proceed with follow up PET scan with [facility] [employer] [facility] for her metastatic uterine cancer. Last CT in 08/2023 did not reveal pelvic disease, but PET is better evaluation. Possible she has developed malignancy regardless in her bladder. Winter will discus with Rosita red if they want to proceed with bladder biopsy. I discussed next step would be urology consult and management, if desired. ticket scheduler to call. If Rosita has additional questions she can call our office and schedule virtual visit (or in person) with me prior to. All questions answered. Franklin Salmon MD Rosita Kennedy presents today for diagnostic cystoscopy. Indication: Cystitis UNIVERSAL PROTOCOL / SAFETY CHECKLIST Procedure to be Performed: cystoscopy Sign In: A Moment of CARE was completed. Personnel directly involved with the procedure wore the appropriate PPE (Personal Protective Equipment). Patient/Surrogate Stated/Verified: PATIENT VERIFIED(optional for EMERGENT procedures): Patient name, Date of , Relevant allergies, and The intended procedure Time Out Communication: Intended patient and procedure match the source documents. Consent documented and matches the intended procedure. Sign Out: SIGN OUT (optional for EMERGENT procedures): No specimen collected. All instruments, equipment, possible retained foreign bodies accounted for. PROCEDURE: Indication: Cystitis. The patient understands the RBA but not limited to UTI, hematuria, urinary retention (dose dependent), treatment failure and transient weakness (rare). Brief description of procedure: After obtaining written informed consent, a time out was performed. The patient was placed in dorsal lithotomy position, then prepped and draped in the usual sterile fashion. 2% urethral lidocaine jelly was introduced into the urethra and allowed to take analgesic effect. Anesthesia: Intraurethral Lidocaine jelly 6 mL. Video-assisted cystourethroscopy was performed using a 19 Ghanaian 70 degree cystoscope with saline infusion. The cystoscope was advanced into the bladder. Next, the bladder was evaluated. Bilateral ureteral orifices were identified in normal orthotopic position. The bladder mucosa was evaluated in its entirety. Small capacity bladder with appearance of radiation cystitis. Inflamed areas and at bladder base and approximately 8 oclock some raised areas. Global erythema. Finally, the cystoscope was removed from the bladder and the urethra evaluated again. The patient tolerated the procedure well. There were no complications. Findings: Small capacity bladder with appearance of radiation cystitis. Inflamed areas and at bladder base and approximately 8 oclock some raised areas. Global erythema. Findings consistent with radiation cystitis, but borderline concerning for dysplasia. Complications: none Procedure Summary: Patient tolerated procedure well. Medications: None Plan: Radiation cystitis Findings as above, likely etiology of UUI, small bladder capacity Consider repeating cystoscopy in 3 months to evaluate for changes Can do at time of botox if needed UUI Try vesicare for 3-4 weeks, if it isn't helpful will plan for 100 units botox Follow up in 1 month to discuss vesicare trial, possible botox, and radiation cystitis plan Franklin Salmon MD documented in this encounter [facility] 11-18-2023 Note HNO ID: [id number] Author: FRANKLIN SALMON MD Service: ? Author Type: Physician Type: Progress Notes Filed: 11/19/2023 13:20 Note Text: Rosita Kennedy presents today for diagnostic cystoscopy. Indication: Cystitis UNIVERSAL PROTOCOL / SAFETY CHECKLIST Procedure to be Performed: cystoscopy Sign In: A Moment of CARE was completed. Personnel directly involved with the procedure wore the appropriate PPE (Personal Protective Equipment). Patient/Surrogate Stated/Verified: PATIENT VERIFIED(optional for EMERGENT procedures): Patient name, Date of , Relevant allergies, and The intended procedure Time Out Communication: Intended patient and procedure match the source documents. Consent documented and matches the intended procedure. Sign Out: SIGN OUT (optional for EMERGENT procedures): No specimen collected. All instruments, equipment, possible retained foreign bodies accounted for. PROCEDURE: Indication: Cystitis. The patient understands the RBA but not limited to UTI, hematuria, urinary retention (dose dependent), treatment failure and transient weakness (rare). Brief description of procedure: After obtaining written informed consent, a time out was performed. The patient was placed in dorsal lithotomy position, then prepped and draped in the usual sterile fashion. 2% urethral lidocaine jelly was introduced into the urethra and allowed to take analgesic effect. Anesthesia: Intraurethral Lidocaine jelly 6 mL. Video-assisted cystourethroscopy was performed using a 19 Ghanaian 70 degree cystoscope with saline infusion. The cystoscope was advanced into the bladder. Next, the bladder was evaluated. Bilateral ureteral orifices were identified in normal orthotopic position. The bladder mucosa was evaluated in its entirety. Small capacity bladder with appearance of radiation cystitis. Inflamed areas and at bladder base and approximately 8 oclock some raised areas. Global erythema. Finally, the cystoscope was removed from the bladder and the urethra evaluated again. The patient tolerated the procedure well. There were no complications. Findings: Small capacity bladder with appearance of radiation cystitis. Inflamed areas and at bladder base and approximately 8 oclock some raised areas. Global erythema. Findings consistent with radiation cystitis, but borderline concerning for dysplasia. Complications: none Procedure Summary: Patient tolerated procedure well. Medications: None Plan: Radiation cystitis Findings as above, likely etiology of UUI, small bladder capacity Consider repeating cystoscopy in 3 months to evaluate for changes Can do at time of botox if needed UUI Try vesicare for 3-4 weeks, if it isn't helpful will plan for 100 units botox Follow up in 1 month to discuss vesicare trial, possible botox, and radiation cystitis plan Franklin Salmon MD [facility] 10-08-2023 Miscellaneous Notes Please notify pt's son: Vesicare is 5 or 10mg once daily Sanctura is either 20mg twice daily or 60mg once daily Thank you Called pt's son. Verified by name and . 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 Skylar Everett RN October 08, 2023 4:34 PM Son would like to know the dosing of the vesicare and sanctura to determine hinton point. == Pt of JULIA 10/06/23: IMPRESSION & PLAN: Rosita Kennedy is a 77 year old female with: Detrusor Overactivity, Cystitis We discussed the signs and symptoms of urge urinary incontinence being associated with and overactivity of the bladder, which decreases the ability of the bladder to store urine consistently. Likely related to h/o radiation, and possible radiation cystitis given findings on CT scan. Significant DO on simple cystometrogram, and also small bladder capacity with terminal Do at 150mL. We discussed treatment options such as conservative measures of timed voiding, avoidance of bladder irritants, avoiding excessive fluid intake, weight loss. We briefly reviewed that if she fails medical therapy, there are 3rd tier options such as posterior tibial nerve stimulation, intravesical botulinum injections, and sacral neuromodulation options available. She has elected to undergo a trial of medication with: gemtesa 75mg daily. If too expensive can try vesicare or sanctura. Skylar Everett RN October 08, 2023 4:[address] Salmon earlier this week and was prescribed gemtesa 75mg daily. Was told if too expensive can try vesicare or sanctura. Son called in to find out what the dosage of each of those would be so he could hinton out each and see what would be the better option. His name is Rivera [phone]. Thanks! documented in this encounter [facility] 10-08-2023 Miscellaneous Notes Called patient, LVM requesting she call the office back regarding her medication. Franchesca Sanchez RN Per Dr. Salmon's note, patient can try Vesicare or Sanctura. Do they want to check on the cost of these before I send in a prescription or would they prefer I send the prescription in first? Aleksander Hurtdao APRN.MALIK Pt requesting cheaper alternative to gemtesa. JULIA - Dr. Salmon 10/06/23 IMPRESSION & PLAN: Rosita Kennedy is a 77 year old female with: Detrusor Overactivity, Cystitis We discussed the signs and symptoms of urge urinary incontinence being associated with and overactivity of the bladder, which decreases the ability of the bladder to store urine consistently. Likely related to h/o radiation, and possible radiation cystitis given findings on CT scan. Significant DO on simple cystometrogram, and also small bladder capacity with terminal Do at 150mL. We discussed treatment options such as conservative measures of timed voiding, avoidance of bladder irritants, avoiding excessive fluid intake, weight loss. We briefly reviewed that if she fails medical therapy, there are 3rd tier options such as posterior tibial nerve stimulation, intravesical botulinum injections, and sacral neuromodulation options available. She has elected to undergo a trial of medication with: gemtesa 75mg daily. If too expensive can try vesicare or sanctura. Given findings on CT of cystitis and other UA previously with blood, plan for diagnostic cystoscopy. 2. Constipation Discussed constipation can worsen OAB/UUI. Recommend increase miralax to BID and start fiber supplementation. Also recommend taking large dose of mag citrate now as she hasn't had BM in 1 week. 3. Microscopic hematuria Recommend cystoscopy Follow up for office diagnostic cystoscopy Deborah Aguilar RN October 07, 2023 4:29 PM Images from the original note were not included. Patient: Rosita Kennedy : 1945 Provider: Franklin Salmon MD Caller Phone #: [phone] (home) [phone] (cell) Reason for call: pt states Dr Salmon advised her to call if prescription she wrote is too expensive. Says Dr Salmon told her she would send something else in, if so Please call Daughter in law, Winter, at [phone] Message routed to nurse triage Date of next visit: Appointments for Next 60 Days Date Time Provider Location Dept Phone 10/14/2023 2:30 PM FRANKLIN SALMON [phone] 11/10/2023 7:[address] [facility] [phone] 11/10/2023 8:[address] [facility] [phone] 11/17/2023 4:00 PM [facility] [phone] JULIA: 10/06/2023 documented in this encounter [facility] 10-06-2023 History of Present illness Narrative Telephone Encounter I have communicated my name and active licensure. The patient's identity and physical location were verified at the time of this visit. Either the patient or their legal dairy supplies sales representative has been informed of the risks and benefits of -- and alternatives to -- treatment through a remote evaluation and consents to proceed with the evaluation remotely. 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 Comorbidities include: Bilateral cataracts, open angle glaucoma, MS (remission without maintenance medications), RLE DVT requiring angioplasty ECOG Performance status: 1-2 Reason for call: follow up Last visit in this department: 09/21/2023 Subjective: No new complaints, back and shoulder pain improved. Saw Dr. Salmon for urinary incontinence today, evaluation ongoing. Objective: Psych: Normal mood and affect Results: CT chest 09/29/2023: IMPRESSION: Stable nodular density in the right upper lobe. No new nodules seen. Tiny nodular densities along the anterior aspect of the trachea, similar to prior study. No enlarged lymph nodes seen in the mediastinum or hilar regions. CT abd/pelvis 09/29/2023: IMPRESSION: 1. There is moderate circumferential thickening of the wall of the urinary bladder with increased urothelial enhancement and stranding in the perinephric. This appearance is highly suspicious for cystitis. Please correlate with urinalysis. If there is clinical uncertainty, definitive evaluation would require cystoscopy 2. No metastatic disease detected in the abdomen or pelvis. 3. Small subcentimeter hypodense renal lesions which are too small to characterize but may represent cysts. Some of these lesions cannot be confirmed as simple cysts based on the density and small size. Would advise continued attention on follow-up exams. Plan/Discussion: Continue surveillance at this time, plan for PET at 6 month interval from last as no new clinical evidence of progression. All questions answered. Follow up plan: PET and follow up visit October. This visit was conducted as a phone visit. We spent 20 minutes discussing the patient's results and treatment options. Malathi Roberts MD, MS Gynecologic Oncologist documented in this encounter [facility] 10-06-2023 Instructions Franklin Salmon MD - 10/06/2023 10:48 AM EST Constipation Start taking miralax twice daily Metamucil - fiber Magnesium citrate - take large dose to clear out your bowels and then start fresh Cystitis/incontinence Start gemtesa daily, if too expensive, call us Follow up for cystoscopy documented in this encounter [facility] 10-06-2023 History of Present illness Narrative Female Pelvic Medicine & Reconstructive Surgery Consult CHIEF COMPLAINT: Rosita Kennedy is a 77 year old referred from Nate Krishna CNP, Dr. Roberts for consultation regarding urinary incontinence. She has had a hysterectomy(per pt's family). Pt has urinary incontinence for the past 1 month. No pain. Pt has uterine ca, diagnosis about 10 years ago, last had treatment in the past 6 months but had bad reaction, has decided to not continue treatment. Here with her daughter in law, Winter. HISTORY OF PRESENT ILLNESS: She denies prolapse symptoms. She denies ANTHONY with coughing, laughing, and sneezing. She reports UUI. She does not have symptoms of urinary urgency and report requency. She does feel that she empties her bladder completely. She has not tried overactive bladder medications . Daytime frequency: 5-6 Nocturia: 0 Fluid intake: 0 cups of coffee, and a good amount of water daily. She reports a history of UTIs. Today she denies any burning immediately before she voids.dysuria or denies hematuria. She reports constipation denies bowel movements. She reports fecal incontinence of gas/stool. She does take fiber supplements to help with her constipation. Miralax ensure She reports vaginal dryness. She does not use vaginal estrogen. She is not sexually active. The reports a strong family history of breast and ovarian cancer. Pt has uterine ca. No treatments at this time. Pt's sister had breast ca. 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 Yes, somewhat bothersome (2) Usually experience heaviness or dullness in the pelvic area? Yes, quite a bit bothersome (4) Usually have a bulge or something falling out that you can see or feel in your vaginal area? No (0) Ever have to push on the vagina or around the rectum to have or complete a bowel movement? No (0) Usually experience a feeling of incomplete bladder emptying? Yes, not at all bothersome (1) Ever have to push up on a bulge in the vaginal area with your fingers to start or complete urination? No (0) Feel you need to strain too hard to have a bowel movement? No (0) Feel you have not completely emptied your bowels at the end of a bowel movement? Yes, quite a bit bothersome (4) Usually lose stool beyond your control if your stool is well formed? Yes, quite a bit bothersome (4) Usually lose stool beyond your control if your stool is loose? Yes, quite a bit bothersome (4) Usually lose gas from the rectum beyond your control? Yes, quite a bit bothersome (4) Usually have pain when you pass your stool? Yes, not at all bothersome (1) Experience a strong sense of urgency and have to lujan to the bathroom to have a bowel movement? No (0) Does part of your bowel ever pass through the rectum and bulge outside during or after a bowel movement? No (0) Usually experience frequent urination? Yes, moderately bothersome (3) Usually experience urine leakage associated with a feeling of urgency, that is, a strong sensation of needing to go to the bathroom? Yes, quite a bit bothersome (4) Usually experience urine leakage related to coughing, sneezing or laughing? No (0) Usually experience small amounts of urine leakage (that is, drops)? No (0) Usually experience difficulty emptying your bladder? Yes, not at all bothersome (1) Usually experience pain or discomfort in the lower abdomen or genital region? No (0) PAST MEDICAL HISTORY Diagnosis Date Cataracts, bilateral COAG (chronic open-angle glaucoma) CRVO (central retinal vein occlusion) Disorder of bone and cartilage, unspecified Multiple sclerosis (HCC) 2001 remission currently Pseudophakia, both eyes Pyelonephritis, unspecified 01/2010 Pyelonephritis Uterine cancer (HCC) 08/08/2014 PAST SURGICAL HISTORY Procedure Laterality Date DELIVERY ONLY , low cervical X3 COLONOSCOPY 05/18/2016 Dr. Gibbs. no bx taken COLONOSCOPY, GI 1998, 2009 EYE SURGERY PROCEDURE Left 04/11/2021 Xen Gel stent EYLEA (AFLIBERCEPT) 2MG INTRAVITREAL INJECTION OD (RIGHT EYE) Right 04/02/2016 #7 INSERT ANT SEGMENT DRAIN INT 11/21/2014 iStent Implantation Left Eye LIG/TRNSXJ FLP TUBE ABDL/VAG APPR UNI/BI 1976 PAST SURGICAL HISTORY OF right EYE SURGERY AGE 7 PAST SURGICAL HISTORY OF Right 11/06/2020 Xen Gel PULMONARY FUNCTION TEST 06/07/03 XCAPSL CTRC RMVL INSJ IO LENS PROSTH W/O ECP 11/21/2014 Cataract Extraction with PC IOL/Femtosecond Laser Left Eye FAMILY HISTORY Problem Relation Age of Onset Breast Cancer Sister Glaucoma Sister Heart Father mi Diabetes Father Hypertension Mother Alzheimer's Disease Mother Macular Degen Mother Glaucoma Mother Macular Degen Maternal Grandmother Current Outpatient Medications Medication Sig Dispense Refill potassium chloride (K-TAB) 10 mEq tablet Take 10 mEq by mouth two times a day. lenvatinib (LENVIMA) 20 mg/day (10 mg x 2) capsules Take 2 capsules (20 mg) by mouth once daily. 60 capsule 5 rivaroxaban (XARELTO) 15 mg tablet Take 20 mg by mouth once daily. ondansetron (ZOFRAN) 8 mg tablet Take 1 tablet by mouth every 6 hours as needed for nausea/vomiting. 30 tablet 5 levothyroxine (LEVOXYL) 25 mcg tablet Take 1 tablet by mouth once daily. Take on empty stomach. For Thyroid 90 tablet 1 mirtazapine (REMERON) 15 mg tablet Take 1 tablet by mouth daily at bedtime. 90 tablet 1 meloxicam (MOBIC) 15 mg tablet Take 1 tablet by mouth once daily. With food. 90 tablet 1 atorvastatin (LIPITOR) 40 mg tablet Take 1 tablet by mouth daily at bedtime. For cholesterol. 90 tablet 1 Methenamine Hippurate (HIPREX) 1 gram tablet Take 1 tablet by mouth twice daily with meals. 60 tablet 11 furosemide (LASIX) 20 mg tablet Take one tablet every day but if looses more than 10 pounds in a week then she needs to hold it. 45 tablet 3 buPROPion (WELLBUTRIN) 75 mg tablet Take it once a day in the morning. 60 tablet 0 sertraline (ZOLOFT) 25 mg tablet Take 1 tablet by mouth once daily. 90 tablet 3 sertraline (ZOLOFT) 100 mg tablet Take 1 tablet by mouth once daily. To take along with 25 mgs to make a total of 125 mgs 90 tablet 3 travoprost (TRAVATAN Z) 0.004 % ophthalmic drops Use 1 Drop in both eyes daily at bedtime. 2.5 mL 2 brimonidine-timolol (COMBIGAN) 0.2-0.5 % ophthalmic solution Use 1 Drop in the right eye twice daily. Use at 9 AM and 3 PM 10 mL 2 ondansetron orally disintegrating (ZOFRAN ODT) 4 mg disintegrating tablet Take 1 tablet by mouth every 6 hours as needed for nausea/vomiting. 45 tablet 1 phenazopyridine (PYRIDIUM, GERIDIUM) 200 mg tablet Take 1 tablet by mouth three times daily as needed. 30 tablet 1 aspirin, enteric coated (ECOTRIN LOW STRENGTH) 81 mg EC tablet Take 1 tablet by mouth once daily. calcium carb/vitamin D3/vit K1 (VIACTIV ORAL) Take 1 tablet by mouth once daily. L GASSERI/B BIFIDUM/B LONGUM ([facility] ORAL) Take 1 tablet by mouth once daily. CHOLECALCIFEROL, VITAMIN D3, (VITAMIN D3 ORAL) Take by mouth once daily. LUTEIN ORAL Take 1 tablet by mouth once daily. MULTIVITAMIN TABLET PO Take one(1) tablet daily. 0 0 Current Facility-Administered Medications Medication Dose Route Frequency Provider Last Rate Last Admin perflutren lipid microspheres 1.3 mL in NaCl (PF) 0.9% 10 mL injection (DEFINITY) INTRAVENOUS DIRECTED PRJoseluis Rodgers MD sodium chloride 0.9 % (flush) 10 mL (BD POSIFLUSH) 10 mL INTRAVENOUS DIRECTED PRJoseluis Rodgers MD ALLERGIES Allergen Reactions Codeine hives Contrast Dye [Iodin* Diarrhea Diarrhea after oral contrast. Erythromycin GI Upset Methylprednisolone Hives IV Sulfa (Sulfonamide * hives Social History Tobacco Use Smoking status: Never Smokeless tobacco: Never Vaping Use Vaping Use: Never used Substance Use Topics Alcohol use: Yes Comment: 1 drink per month not used in 1 year Drug use: No REVIEW OF SYSTEMS ENT: negative for findings Respiratory: negative for findings Cardiovascular: negative Gastrointestinal: negative Genitourinary: negative Musculoskeletal: negative Neurologic: negative Psychiatric:depression Endocrine: negative Integumentary: negative for findings I have confirmed and edited as necessary, the PFSH and ROS obtained by others. Franklin Salmon MD OBJECTIVE: Physical Exam BP 143/80 Ht 152.4 cm (5') Wt 49.4 kg (108 lb 14.5 oz) BMI 21.27 kg/m General Appearance: Well-appearing, no acute distress Psychiatric: Alert and oriented, normal affect Neck: Deferred Skin: No rashes or lesions Lymph: Deferred C/V: Normal peripheral perfusion Lungs: Respiratory effort normal Abdomen: Soft, non-tender, non-distended Pelvic examination: Vulva/Perineum: Normal development, no lesions, normal hair distribution, normal anus Urethral Meatus:Normal location and size, no lesions Urethra: No masses, tenderness or scarring Bladder:No masses, no tenderness Vagina: atrophic Cervix: s/a Uterus: s/a Adnexae:No masses, tenderness or nodularity Perineal Sensation: Normal Levator tone: decreased Levator tenderness: Absent NEG EBCST POP-Q: Prolapse Noted: No URO/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 Catheter inserted and 150cc sterile water instilled into the bladder. First urge: 100 mL Strong urge: 110 mL Max capacity: 150 mL Do at 100, 110, terminal DO at 150mL Catheter removed and patient instructed to cough. NEG POSTDOCTORAL RESEARCH FELLOW with ?80 mL sterile water Physical exam chaperoned by Estela Zhang RN. 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 Likely related to h/o radiation, and possible radiation cystitis given findings on CT scan. Significant DO on simple cystometrogram, and also small bladder capacity with terminal Do at 150mL. We discussed treatment options such as conservative measures of timed voiding, avoidance of bladder irritants, avoiding excessive fluid intake, weight loss. We briefly reviewed that if she fails medical therapy, there are 3rd tier options such as posterior tibial nerve stimulation, intravesical botulinum injections, and sacral neuromodulation options available. She has elected to undergo a trial of medication with: gemtesa 75mg daily. If too expensive can try vesicare or sanctura. Given findings on CT of cystitis and other UA previously with blood, plan for diagnostic cystoscopy. 2. Constipation Discussed constipation can worsen OAB/UUI. Recommend increase miralax to BID and start fiber supplementation. Also recommend taking large dose of mag citrate now as she hasn't had BM in 1 week. 3. Microscopic hematuria Recommend cystoscopy Follow up for office diagnostic cystoscopy Franklin Salmon MD I spent a total of 55 minutes on the date of the service which included preparing to see the patient, [id number] patient care, completing clinical documentation, obtaining and/or reviewing separately obtained history, performing a medically appropriate examination, counseling and educating the patient/family/caregiver, ordering medications, tests, or procedures, and communicating with other HCPs (not separately reported). Consultation requested by Dr. Roberts for an opinion regarding incontinence. My final recommendations will be communicated back to the requesting physician by way of shared Medical record or letter to requesting physician via US mail. documented in this encounter [facility] 10-06-2023 Note HNO ID: [id number] Author: FRANKLIN SALMON MD Service: ? Author Type: Physician Type: Progress Notes Filed: 10/06/2023 12:29 Note Text: Female Pelvic Medicine AND Reconstructive Surgery Consult CHIEF COMPLAINT: Rosita Kennedy is a 77 year old referred from Nate Krishna CNP, Dr. Roberts for consultation regarding urinary incontinence. She has had a hysterectomy(per pt's family). Pt has urinary incontinence for the past 1 month. No pain. Pt has uterine ca, diagnosis about 10 years ago, last had treatment in the past 6 months but had bad reaction, has decided to not continue treatment. Here with her daughter in law, Winter. HISTORY OF PRESENT ILLNESS: She denies prolapse symptoms. She denies ANTHONY with coughing, laughing, and sneezing. She reports UUI. She does not have symptoms of urinary urgency and report requency. She does feel that she empties her bladder completely. She has not tried overactive bladder medications . Daytime frequency: 5-6 Nocturia: 0 Fluid intake: 0 cups of coffee, and a good amount of water daily. She reports a history of UTIs. Today she denies any burning immediately before she voids.dysuria or denies hematuria. She reports constipation denies bowel movements. She reports fecal incontinence of gas/stool. She does take fiber supplements to help with her constipation. Miralax ensure She reports vaginal dryness. She does not use vaginal estrogen. She is not sexually active. The reports a strong family history of breast and ovarian cancer. Pt has uterine ca. No treatments at this time. Pt's sister had breast ca. 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 Yes, somewhat bothersome (2) Usually experience heaviness or dullness in the pelvic area? Yes, quite a bit bothersome (4) Usually have a bulge or something falling out that you can see or feel in your vaginal area? No (0) Ever have to push on the vagina or around the rectum to have or complete a bowel movement? No (0) Usually experience a feeling of incomplete bladder emptying? Yes, not at all bothersome (1) Ever have to push up on a bulge in the vaginal area with your fingers to start or complete urination? No (0) Feel you need to strain too hard to have a bowel movement? No (0) Feel you have not completely emptied your bowels at the end of a bowel movement? Yes, quite a bit bothersome (4) Usually lose stool beyond your control if your stool is well formed? Yes, quite a bit bothersome (4) Usually lose stool beyond your control if your stool is loose? Yes, quite a bit bothersome (4) Usually lose gas from the rectum beyond your control? Yes, quite a bit bothersome (4) Usually have pain when you pass your stool? Yes, not at all bothersome (1) Experience a strong sense of urgency and have to lujan to the bathroom to have a bowel movement? No (0) Does part of your bowel ever pass through the rectum and bulge outside during or after a bowel movement? No (0) Usually experience frequent urination? Yes, moderately bothersome (3) Usually experience urine leakage associated with a feeling of urgency, that is, a strong sensation of needing to go to the bathroom? Yes, quite a bit bothersome (4) Usually experience urine leakage related to coughing, sneezing or laughing? No (0) Usually experience small amounts of urine leakage (that is, drops)? No (0) Usually experience difficulty emptying your bladder? Yes, not at all bothersome (1) Usually experience pain or discomfort in the lower abdomen or genital region? No (0) PAST MEDICAL HISTORY Diagnosis Date Cataracts, bilateral COAG (chronic open-angle glaucoma) CRVO (central retinal vein occlusion) Disorder of bone and cartilage, unspecified Multiple sclerosis (HCC) 2001 remission currently Pseudophakia, both eyes Pyelonephritis, unspecified 01/2010 Pyelonephritis Uterine cancer (HCC) 08/08/2014 PAST SURGICAL HISTORY Procedure Laterality Date DELIVERY ONLY , low cervical X3 COLONOSCOPY 05/18/2016 Dr. Gibbs. no bx taken COLONOSCOPY, GI 1998, 2009 EYE SURGERY PROCEDURE Left 04/11/2021 Xen Gel stent EYLEA (AFLIBERCEPT) 2MG INTRAVITREAL INJECTION OD (RIGHT EYE) Right 04/02/2016 #7 INSERT ANT SEGMENT DRAIN INT 11/21/2014 iStent Implantation Left Eye LIG/TRNSXJ FLP TUBE ABDL/VAG APPR UNI/BI 1976 PAST SURGICAL HISTORY OF right EYE SURGERY AGE 7 PAST SURGICAL HISTORY OF Right 11/06/2020 Xen Gel PULMONARY FUNCTION TEST 06/07/03 XCAPSL CTRC RMVL INSJ IO LENS PROSTH W/O ECP 11/21/2014 Cataract Extraction with PC IOL/Femtosecond Laser Left Eye FAMILY HISTORY Problem Relation Age of Onset Breast Cancer Sister Glaucoma Sister Heart Father mi Diabetes Father Hypertension Mother Alzheimer's Disease Mother (more content not included)... [facility] 10-04-2023 Miscellaneous Notes Called and spoke to rosita to remind her of her upcoming appointments with POLITICAL RESEARCH SCIENTIST-Uro on 10-06-23 time 9:45 am and the a phone visit same day with Dr. Roberts at 4:30 pm. Patient acknowledged and understood. Stacy Stanford MA documented in this encounter [facility] 10-01-[address] Results reviewed by Dr Roberts. Urine culture x 3 have indicated no infection. See uro/registrar college or university for eval and can set up phone visit to discuss treatment options for her cancer which appears stable on CT. Called patient discussed Ct findings. No new symptoms. But still having the incontinence. Discussed repeat urine culture to make sure she didn't get infection from office to CT since Urine culture and visit was negative. Declines just wants to see who uro/registrar college or university says. Agreeable to discuss With Dr Roberts treatment options for her cancer. Working currently to get her appt with uro/registrar college or university [facility]. Nate Krishna APRN.MALIK documented in this encounter [facility] 09-29-2023 Note HNO ID: [id number] Author: LUZ LAN RN Service: ? Author Type: Registered Nurse Type: Progress Notes Filed: 09/29/2023 12:01 Note Text: Connected CT contrast dye to pt after flushing power port with 10ml of Normal saline. Once CT completed flushed power port with 20ml of normal saline . After flushing removed power port needle and covered with 2x2 and paper tape. Pt tolerated well. Lzu Lan Rn [facility] 09-29-2023 Note HNO ID: [id number] Author: RAMÓN MONTGOMERY, RT(R) Service: ? Author Type: Women'S Studies Lecturer Type: Progress Notes Filed: 09/29/2023 16:15 Note Text: Radiology Service Progress Note PATIENT NAME: Rosita Kennedy DATE OF SERVICE: September 29, 2023 TIME: 4:15 PM PATIENT IDENTITY VERIFICATION COMPLETED USING TWO (2) IDENTIFIERS: Name and Date of confirmed by patient verbally. FALL SCREENING: Has the patient had 2 falls in the last year or 1 fall with injury or currently using an Ambulatory Assistive Device (Walker, Cane, Wheelchair, Crutches, etc.)? No PATIENT GENDER DATA: Female. status: : No status: NO. PATIENT RELEVANT IMPLANT DATA REVIEWED: Yes PATIENT PRESENTS WITH AN IMPLANTABLE OR ATTACHED STUNT DOUBLE: power port RADIOLOGY DEPARTMENT: CT; Exam(s) Completed: Chest Abdomen Pelvis PERIPHERAL IV DATA: power port accessed by hemoc SIGNED BY: RT Gris(R) September 29, 2023 4:15 PM [facility] 07-28-2023 Miscellaneous Notes Noted. Thank you. Domo Frazier DO Son called to cancel appointments for today. States patient is not sure she wants to continue treatments. Will call back to reschedule once she decides documented in this encounter [facility] 07-12-[address] Frazier, follow-up as scheduled. Mason Quintero RN DISCHARGE CALL BACK Today's date: July 12, 2023 Notified of Pt discharge by: Checked [facility] records Patient discharged on 07/09/23 from [facility]/U to Home with Home Health. [facility] PT/OT/ST. Primary Cancer Diagnosis: Metastatic endometrial cancer, endometrioid type Admitting Diagnosis: Weakness and frequent falls Discharge Summary/SBAR reviewed: Yes Handoff Discussed with Transitional 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 Worker: N/A Psychosocial Risk Factors: None If patient discharged to SNF/Rehab Facility, phone call completed to reinforce discharge instructions and follow up: N/A Call Disposition: Called patient and spoke with patient Patient identified by name and date of . YES Patient with symptom issues: patient stated she is weak from being in the hospital but stronger compared to when she was admitted. Patient is ambulating with a walker. Patient just finished PT for today and seemed happy about this, patient likes the social interaction but is also happy that she is getting a little stronger. Pain: No=0 (pain 0 on a scale of 0-10). Is patient followed by Palliative Medicine? Yes, [facility]. Palliative Medicine follow up: follow up appointment in place, patient stated she had an OV with them last week. Any new barriers to care identified? No- deciding what the next plan will be for patient. Patient does not feel she tolerated lenvatinib and is nervous about receiving another keytruda infusion. Any new referrals needed? No Social Work Follow-Up visit scheduled? No Does the patient need interventions no or same day appointment: No MEDICATION ADHERENCE Patient discharged with prescriptions? Yes, tylenol Discharge prescriptions filled: Yes Patient understands when to take prescriptions: Yes FOLLOW UP Patient scheduled for follow-up appointment within 5 business days of discharge? Yes --Dr. Roberts- will inform Dr. Frazier and see if he would like to move her appointment up or keep as scheduled on 07/23/23. Patient reminded of follow-up appointment with [facility] provider, Dr. Roberts 07/15/23. Discussed: patient is happy to be home. Patient was discharged home with [facility]. Patient is nervous about receiving another keytruda infusion next week and does not know if she will want to restart lenvatinib if recommended. Patient has an OV with Dr. Roberts , 07/[address] Frazier with keytruda to follow on 07/23. PATIENT EDUCATION / REINFORCEMENT Patient verbalizes understanding of when to seek Medical Attention? YES Patient verbalizes understanding of after hours and weekend phone number? YES Mason Quintero RN Per recent lead case manager note, plan is to d/c patient home tomorrow, 07/09/23. Patient will be discharged home with home health through [facility] PT/OT/ST. Patient is also established with [facility]iative ([phone]) Patient is still in TCU. Yesterday patient had c/o sore throat and UTI symptoms, urine culture pending, covid was negative. Mason Quintero RN Patient was discharged to [facility] TCU on 06/29/21. Per [facility] notes: Date of Admission: 06/29/23 Date of Service: 06/29/23 Chief Complaint: Here for rehabilitation. HPI Narrative 06/26/2023 ROSITA KENNEDY, is a 77 Female who presents to [facility] Emergency Department with weakness, frequent falls. Generalized weakness for 1 week. On treatment for metastatic uterine cancer per Dr. Frazier. Immunotherapy infusion 1 week prior, plus oral medications. Oral medications intolerable, stopped. Fallen 4 times in 1 week, hit head earlier, but not on day of presentation. on Xarelto for pulmonary embolism. WBC 8.1, Hemoglobin 10.8, LFT okay, Troponin 8. CT head okay, Urinalysis negative. Not safe to go home alone. 06/26/2023 Admit to Hospital. PT/OT for debility. IV fluids for dehydration. 06/27/2023 Feels okay. Correct dehydration. PT/OT SNF. 06/28/2023 Feels well, no overnight events. PT/OT for TCU. 06/29/2023 Admit to TCU with debility, here for rehabilitation, strengthening, prior to discharge home alone. Resident appears well, eating supper, she ordered pizza. [facility] Care Coordination FOLLOW-UP NOTE Care Coordination Plan: Opened chart today to call patient and see how she is feeling. There was a MC message that was sent to Dr. Roberts from son. Patient is currently at [facility]. Opened [facility] records. Patient was admitted for acute dehydration. Copied from yesterday's inpatient note: Assessment/Plan (1) Declining functional status: PLAN: Fallen several times this past week. Multifactorial due to severe multiple medical comorbidities (MS, stage IV uterine cancer) and complicated by dehydration. Correct the dehydration PT OT eval. PLAN: Plan Chronic conditions: Hypothyroidism: TSH on 09/28/22 was normal. With declining functional status will repeat TSH. Glaucoma: continue eye drops VTE: for history of pulmonary embolism and has an IVC filter. Continue rivaroxaban MS: no active medications Stage IV Uterine cancer: follows Dr. Frazier. DVT prophylaxis: Not indicated as patient is on Xarelto Labs: Laboratory Results - last 24 hr 06/26/23 21:04: WBC 8.1, RBC 4.31, Hgb 10.8 L, Hct 35.9 L, MCV 83.3, MCH 25.1 L, MCHC 30.1 L, RDW Std Deviation 49.3 H, RDW Coeff of Lauro 16.8 H, Plt Count 397, MPV 9.0, Immature Gran % (Auto) 0.400, Neut % (Auto) 71.7 H, Lymph % (Auto) 15.3 L, Gilliam % (Auto) 9.1, Eos % (Auto) 3.1, Baso % (Auto) 0.4, Absolute Neuts (auto) 5.8, Absolute Lymphs (auto) 1.23, Nucleated RBC % 0, Sodium 140, Potassium 3.5, Chloride 105, Carbon Dioxide 28.0, Anion Gap 7, BUN 29 H, Creatinine 0.82, Estim Creat Clear Calc 42.58, Est GFR (MDRD) Af Amer 88, Est GFR (MDRD) Non-Af 72, BUN/Creatinine Ratio 35.5 H, Glucose 120 H, Calcium 8.1 L, Total Bilirubin 0.40, AST 18, ALT 13, Alkaline Phosphatase 104, Troponin I High Sens 8, Total Protein 6.8, Albumin 2.9 L, Globulin 3.9, Albumin/Globulin Ratio 0.7 L 06/26/23 22:02: Urine Color Yellow, Urine Clarity Clear, Urine pH 6.0, Ur Specific [place] 1.015, Urine Protein 30 H, Urine Glucose (UA) Normal, Urine Ketones Negative, Urine Occult Blood 25 H, Urine Nitrite Negative, Urine Bilirubin Negative, Urine Urobilinogen Normal, Ur Leukocyte Esterase 25 H, Urine RBC 0 SEEN, Urine WBC 0-5 SEEN, Ur Squamous Epith Cells 0-5 SEEN, Urine Bacteria 0 SEEN, Urine Mucus 0 SEEN Micro: Microbiology 06/26/23 20:55 Nasal Secretion SARS-CoV-2 & FLU Antigen (Rapid) - Final Radiography Diagnostic Testing: Radiology Impression Brain CT 06/26/23 20:47 IMPRESSION: No acute intracranial hemorrhage. Similar exam findings compared to prior study. Electronically Signed: Pedro Luis Cuellar MD at 22:01 EDT , This nurse will follow-up with patient after discharge. Mason Quintero RN June 28, 2023 [facility] Care Coordination FOLLOW-UP NOTE Care Coordination Plan: called patient, no answer, left a VM requesting a call back from patient. Mason Quintero RN June 23, 2023 documented in this encounter [facility] 07-09-2023 Note HNO ID: [id number] Author: Kelley Rich RN Service: ? Author Type: Registered Nurse Type: Progress Notes Filed: 07/09/2023 1:49 PM Note Text: Patient is here for IVAD port flush/blood draw per [facility] protocol. IVAD is located in right upper chest. Site cleansed with Chloraprep IVAD accessed with a #20 gauge 3/4 non-coring Gripper needle Flush with 5cc's Normal Saline. Blood Return: Good. 10 cc's blood aspirated and discarded. Blood drawn for CBC and CMP. Flushed with: 20 ml Normal Saline and 5 ml Heparin Lock Flush. Non-coring needle removed. Paper tape applied to puncture site. Site negative for redness, edema or tenderness. Patient tolerated procedure well. [facility] 07-06-2023 Discharge summary Note Date/Time July 05, 2023 7:56pm [facility] Medical Records Department [address] [place] [address] Discharge Summary 07/05/231954 MR#: [id number] Acct: [id number] Name: ROSITA KENNEDY Rep #:[id number] : 1945 77 From: Bernardino Min MD PCP: Dr. Bernardino Min MD Status:ADM I N Location: [place] [address] Providers Date of Admission: 06/29/23 Primary Care Physician: Dr. Bernardino Min MD Reason For Visit: DEBILITY Diagnosis Discharge Diagnosis (1) Debility: Status: Acute Code(s): R53.81 - Other malaise (2) Weakness: Status: Acute Code(s): R53.1 - Weakness (3) Falls frequently: Status: Acute Code(s): R29.6 - Repeated falls (4) Dehydration: Status: Resolved Code(s): E86.0 - Dehydration (5) Cancer, uterine: Status: Acute Code(s): C55 - Malignant neoplasm of uterus, part unspecified (6) Multiple sclerosis: Status: Acute Code(s): G35 - Multiple sclerosis (7) Depression: Status: Acute Code(s): F32.A - Depression, unspecified (8) Glaucoma: Status: Acute Code(s): H40.9 - Unspecified glaucoma (9) Hypothyroidism: Status: Acute Code(s): E03.9 - Hypothyroidism, unspecified (10) Recurrent urinary tract infection: Status: Acute Code(s): N39.0 - Urinary tract infection, site not specified (11) Appetite loss: Status: Acute Code(s): R63.0 - Anorexia (12) Hypokalemia: Status: Acute Code(s): E87.6 - Hypokalemia (13) Recurrent deep vein thrombosis (DVT): Status: Acute Code(s): I82.409 - Acute embolism and thrombosis of unspecified deep veins of unspecifiedlower extremity Plan 77 year old female with below past medical history significant for metastatic uterine cancer, hospitalized for weakness, falls, dehydration, admitted to TCU with debility, here for rehabilitation, strengthening, prior to discharge home alone. * Debility - PT/OT. * Pain - Tylenol 1000mg q6 prn pain (1-10). * Bowel - Miralax 17gm daily, senna/colace 1 tablet bid prn. * Adult immunization - Administer pneumonia vaccine, covid19 vaccine, flu vac cine as appropriate. * DVT prophylaxis - on Xarelto. * Glaucoma - Brimonidine 0.2% 2gtt OD TID, Latanoprost 0.05% 1gtt ou qhs. * Vitamin D deficiency - D3 25mcg daily. * Nutrition - Ensure Plus 120ml 4x/day, MVI daily. * Hypothyroidism - Levothyroxine 25mcg daily. * Recurrent UTI - Methenamine 1gm bid. 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 * Recurrent DVT - Xarelto 20mg daily. * Depression - Sertraline 125mg daily. 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 Medications at Discharge Home Medications cholecalciferol (vitamin D3) 25 mcg (1,000 unit) tablet (Vitamin D3) 1,000 unit PO DAILY supplement 09/08/18 multivitamin with folic acid 400 mcg tablet (Thera) 1 tab PO DAILY supplement 09/08/18 sertraline 100 mg tablet 125 mg PO DAILY mental health 09/08/18 brimonidine 0.2 % eye drops 2 drp RIGHT EYE TID glaucoma 08/31/22 levothyroxine 25 mcg tablet 25 mcg PO DAILY thyroid 08/31/22 methenamine hippurate 1 gram tablet 1 g PO BID Bladder 08/31/22 mirtazapine 15 mg tablet 15 mg PO QHS sleep 08/31/22 polyethylene glycol 3350 17 gram/dose oral powder (Miralax) 17 g PO DAILY constipation 08/31/22 latanoprost 0.005 % eye drops 1 drp EACH EYE Eye health 09/11/22 rivaroxaban 20 mg tablet (Xarelto) 20 mg PO DINNER BLOOD THINNER 30 days #30 tabs 09/16/22 acetaminophen 500 mg tablet 1,000 mg (2 x 500 mg) PO Q6H PRN PRN Pain Score 1-10#0 tabs 07/05/23 Hospital Course Operations None Procedures None Summary of Care Provided Minutes Spent on Discharge: 35 Hospital Course: 77 year old female with below past medical history significant for metastatic uterine cancer, hospitalized for weakness, falls, dehydration, admitted to TCU with debility, here for rehabilitation, strengthening, prior to discharge home alone. Discharge home alone 07/08/2023, [facility] PT/OT/ST. Physical Exam Const alert General Appearance: cooperative HEENT normocephalic Eyes PERRL and EOMs intact bilaterally Neck supple, no JVD and no carotid bruits Resp normal respiratory effort, normal air movement and clear to auscultation bilaterally Cardio regular rate and regular rhythm GI normal to inspection, nondistended, normoactive bowel sounds, non-tender and non-distended Extremity normal capillary refill General Extremity: Negative for edema Skin no rashes or lesions noted General Skin Exam: no breakdown Psych affect normal Appearance: appropriate Weight / BMI Weight Weight: 50.303 kg Body Mass Index (BMI) 21.7 ABG / Lab / Microbiology Data 06/30/23 05:20 06/30/23 05:20 Microbiology: Microbiology 07/04/23 12:50 Nasal Secretion SARS-CoV-2 Antigen (Rapid) - Final 06/30/23 06:00 Nasal Secretion SARS-CoV-2 Antigen (Rapid) - Final D/C Instructions Discharge Diet: No restrictions Discharge Activity: Return to Normal Activity, May Shower and Use Walker Weight Bearing Status: Weight bearing as tolerated Call your doctor if you observe: Fever of 101 or Higher, Inability to urinate, Inability to have a bowel movement, Shortness of breath, Dizziness, Fainting spells, Swelling in the ankles, Chest pain and Uncontrolled pain Additional Instructions: Discharge home alone 07/08/2023, [facility] PT/OT/ST. Meaningful Use Info Meaningful Use Diagnoses (Choose all that apply): None applicable Discharge Plan Admission Admit Date/Time: 06/29/23 14:29 Primary Reason for Your Visit: Debility. Attending Provider: Bernardino Min Chi Primary Care Provider: Bernardino Min Chi Instructions Additional Instructions / Restrictions: scharge home alone 07/08/2023, [facility] PT/OT/ST. Discharge Orders/Prescriptions Prescriptions: New acetaminophen 500 mg Tablet 1,000 mg PO Q6H PRN PRN (Reason: Pain Score 1-10) Qty: 0 0RF Continued sertraline 100 MG tablet 125 mg PO DAILY Patient Comments: TAKE 1 TABLET BY MOUTH EVERY DAY cholecalciferol (vitamin D3) [Vitamin D3] 1,000 UNIT tablet 1,000 unit PO DAILY multivitamin with folic acid [Thera] 1 TABLET tablet 1 tab PO DAILY levothyroxine 25 mcg tablet 25 mcg PO DAILY methenamine hippurate 1 gram tablet 1 g PO BID Patient Comments: TAKE 1 TABLET BY MOUTH TWICE A DAY WITH MEALS brimonidine 0.2 % drops 2 drp RIGHT EYE TID Patient Comments: INSTILL 1 DROP INTO RIGHT EYE 3 TIMES A DAY mirtazapine 15 mg tablet 15 mg PO QHS Patient Comments: 1 tablet by mouth once a day polyethylene glycol 3350 [Miralax] 17 gram/dose Powder 17 g PO DAILY latanoprost 0.005 % drops 1 drp EACH EYE HS Xarelto 20 mg Tablet 20 mg PO DINNER 30 Days Qty: 30 0RF Referrals / Follow Up: Bernardino Min Chi, MD [Primary Care Provider] - 07/07/23 3:00 pm Disposition Disposition (needs filled in before D/C Order can be placed): Home Health Service 07/05/231957 <Electronically signed by Bernardino Min MD> Cosigner Signature (if applicable): CC: Dr. Bernardino Min MD~ Signed ADDENDUM by Dr. Bernardino Min MD on 07/06/23 at 1506 Addendum Discharge home alone 07/09/2023, [facility] PT/OT/ST. 07/06/23 1506<Electronically signed by Bernardino Min MD> Cosigner Signature (if applicable): cc: Dr. Bernardino Min MD ~* Signed [facility] Work Phone: 1(596) 182-786511-02-2023 Progress note Author Christy Chapman [facility] July 01, 2023 2:40pm Note Date/Time July 01, 2023 2 :12pm [facility] Medical Records Department [address] [place] [address] Progress Note - Pharmacy 07/01/23 1407 MR#: [id number] Acct: [id number] Name: ROSITA KENNEDY Rep #:[id number] : 1945 77 From: Christy Chapman PCP: Dr. Bernardino Min MD Status:ADM I N Location: [place] [id number] TCU RX Drug Regimen Review Subjective/Objective Subjective/Objective: Subjective: 77 YOF admitted to [facility] on 06/29/23 s/p hospitalization at [facility] secondary to multiple falls, weakness. Patient with history of poor appetite anddehydration, got fluids while admitted to [facility]. Patient also has a history of hitting her head when falling, pt on prison anticoagulation with Xarelto due tohistory of pulmonary embolism. Admitted to TCU for strengthening and rehabilitation prior to discharge home where she resides alone. Objective: Allergies doxorubicin Allergy (Severe, Verified 06/26/23 20:23) Anaphylaxis codeine Allergy (Verified 06/26/23 20:23) Hives methylprednisolone Allergy (Verified 06/26/23 20:23) Hives Sulfa (Sulfonamide Antibiotics) Allergy (Verified 06/26/23 20:23) Hives erythromycin base Adverse Reaction (Verified 06/26/23 20:23) Upset Stomach Current Medications Generic Name Dose Route Start Last Admin Trade Name Freq PRN Reason Stop Dose Admin Acetaminophen 1,000 mg 06/29/23 20:24 Acetaminophen 500 Mg Tablet PO Q6H PRN PRN Pain Score 1-10 Brimonidine Tartrate 2 drp 06/29/23 22:00 07/01/23 05:58 Brimonidine 0.2% 5ml Bottle RIGHT EYE 2 drp TID BHUPINDER Administration Cholecalciferol 25 mcg 06/30/23 10:00 07/01/23 09:46 Cholecalciferol (Vit D3) 25 Mcg Tablet (1,000 Units) PO 25 mcg DAILY BHUPINDER Administration Heparin Sodium (Beef Lung) 50 units 06/29/23 14:45 06/30/23 10:12 Heparin Pf Lock 10 Units/Ml 50 Units/5 Ml Syringe IV 50 units UD PRN Administration Port-a-Cath (VAD)Heparin Flush Latanoprost 1 drp 06/29/23 22:00 06/30/23 21:27 Latanoprost 0.005% 1 Bottle EACH EYE 1 drp HS BHUPINDER Administration Levothyroxine Sodium 25 mcg 06/30/23 06:00 07/01/23 05:58 Levothyroxine 25 Mcg Tablet PO 25 mcg DAILY@0600 BHUPINDER Administration Methenamine Hippurate 1 gm 06/29/23 22:00 07/01/23 09:46 Methenamine Hippurate 1 Gm Tablet PO 1 gm BID BHUPINDER Administration Mirtazapine 15 mg 06/29/23 22:00 06/30/23 21:28 Mirtazapine 15 Mg Tablet PO 15 mg QHS BHUPINDER Administration Multivitamins 1 tablet 06/30/23 12:00 07/01/23 11:32 Multivitamins,Therapeutic Tablet PO 1 tablet LUNCH BHUPINDER Administration Nutritional Formula (Lactose Free) 120 ml 06/29/23 17:00 07/01/23 11:31 Ensure Plus High Protein 120 Ml Liquid PO 120 ml 4X/DAY BHUPINDER Administration Polyethylene Glycol 17 gm 06/30/23 10:00 07/01/23 09:45 Polyethylene Glycol 3350 17 Gm Packet PO 17 gm DAILY BHUPINDER Administration Rivaroxaban 20 mg 06/29/23 17:00 06/30/23 16:41 Rivaroxaban 20 Mg Tablet PO 20 mg DINNER BHUPINDER Administration Senna/Docusate Sodium 1 tablet 06/29/23 20:24 Senna/Docusate Sodium 1 Tablet PO BID PRN PRN Constipation Sertraline HCl 125 mg 06/30/23 10:00 07/01/23 09:45 Sertraline 50 Mg Tablet PO 125 mg DAILY BHUPINDER Administration Sodium Chloride 10 - 40 ml 06/29/23 14:45 06/30/23 10:04 0.9% Saline Lock 10 Ml Syringe IV 10 ml UD PRN Administration Port-a-Cath (VAD) Flush Tuberculin PPD 0.1 ml 07/07/23 10:00 Tuberculin,Purif.Prot.Deriv. 50 Tu/Ml Vial ID 07/07/23 10:01 X1 ONE Problem List (Updated 06/29/23 @ 20:[address] Bernardino Min MD) Recurrent deep vein thrombosis (DVT) (Acute) Appetite loss (Acute) Cancer, uterine (Acute) Multiple sclerosis (Acute) Weakness (Acute) Falls frequently (Acute) Hypokalemia (Acute) Depression (Acute) Recurrent urinary tract infection (Acute) Hypothyroidism (Acute) Glaucoma (Acute) Debility (Acute) Vital Signs Temp Pulse Resp BP Pulse Ox O2 Del Method 97.1 F L 96 16 120/77 102 Room Air 07/01/23 14:01 07/01/23 14:01 07/01/23 14:01 07/01/23 14:01 07/01/23 14:01 07/01/23 14:01 Oxygen Delivery Method Room Air Weight: 50.303 kg Body Mass Index (BMI) 21.7 Sodium 141 mmol/L (136-145) 06/30/23 05:20 Potassium 3.7 mmol/L (3.5-5.1) 06/30/23 05:20 Chloride 110 mmol/L (98-107) H 06/30/23 05:20 Carbon Dioxide 25.0 mmol/L (21.0-32.0) 06/30/23 05:20 Anion Gap 6 (5-15) 06/30/23 05:20 BUN 21 mg/dL (7-18) H 06/30/23 05:20 Creatinine 0.69 mg/dL (0.55-1.02) 06/30/23 05:20 Est GFR (MDRD) Af Amer 106 mL/min (>60) 06/30/23 05:20 Est GFR (MDRD) Non-Af 88 mL/min (>60) 06/30/23 05:20 BUN/Creatinine Ratio 30.4 RATIO (10-20) H 06/30/23 05:20 Glucose 110 mg/dL (74-106) H 06/30/23 05:20 Assessment/Plan: 1. Pain: Tylenol 1000mg PO Q6h PRN Pain 1-10. Please continue to monitor for increased/decreased S/S pain, PRN medication usage. - To date, the patient has required zero doses of PRN medication. Patient's pain appears controlled at this time. 2. Glaucoma: Brimonidine 2gtt OD TID, Xalatan 1gtt OU QHS. Please continue to monitor for eye irritation/redness, follow-up with eye doctor as clinically indicated. 3. History of DVT/ Uterine Cancer: Xarelto 20mg PO Daily. Patient follows up outpatient for oncology diagnosis, not actively getting oral treatment/ infusions at this time with admission. Please continue to monitor for S/S bleeding/bruising, H/H (Hgb 10.4, Hct 35.2 on 06/30). Patient with history of uterine cancer, please evaluate if Lovenox would be the best agent for the patient given history of cancer, thank you. 4. Hypothyroidism: Synthroid 25mcg PO daily. Please continue to monitor thyroid function ( TSH 3.08, WNL on 06/27/23), S/S hypothyroidism. 5. Recurrent UTI/ UTI Prophylaxis: Methenamine 1g PO BID. Please continue to monitor for signs of recurrent infection, nausea, liver function (LFT WNL on 06/26). 6. General Wellness: Vitamin D 25mcg PO Daily, MVI 1 tab PO Daily. 7. Bowel: Miralax 17g PO Daily, Senna/docusate 1 tab PO BID PRN. Please continueto monitor for increased/decreased constipation and/or diarrhea. -Per EMR review, the patient has not had a BM since admission. Please consider administering PRN senna/docusate to help facilitate a BM since its been>48hrs, thank you. Assessment/Plan for indications treated with psychotropic medications: 1. Appetite loss: Remeron 15mg PO QHS. Please consider a GDR by 12/2023 if clinically indicated, thank you. 2. Depression: Zoloft 125mg PO Daily. Please evaluate and consider a GDR by 12/2023 if clinically indicated, thank you. Medical chart and medication regimen reviewed. The following medication irregularities or issues were identified: 1. Depression: Zoloft 125mg PO Daily. Please evaluate and consider a GDR by 12/2023 if clinically indicated, thank you. 2. Appetite loss: Remeron 15mg PO QHS. Please consider a GDR by 12/2023 if clinically indicated, thank you. 3. History of DVT: Xarelto 20mg PO Daily. Patient with history of uterine cancer. Please evaluate if Lovenox would be the best agent for the patient givenhistory of cancer per NCCN guidelines, thank you. Date Date of Note:: 07/01/23 07/01/23 1440 <Electronically signed by Christy Chapman> Christy Chapman Cosigner Signature (if applicable): CC: ~ Signed [facility] Work Phone: 1(245) 525-783010-31-2023 History and physical note Author Bernardino Min [facility] June 29, 2023 8:24pm Note Date/Time June 29, 2023 8 :18pm [facility] Medical Records Department [address] [place] [address] History & Physical Exam 06/29/232009 MR#: [id number] Acct: [id number] Name: ROSITA KENNEDY Rep #:[id number] : 1945 77 From: Bernardino Min MD PCP: Dr. Bernardino Min MD Status:ADM I N Location: TCU [place] [address] HPI - General General Date of Admission: 06/29/23 Date of Service: 06/29/23 Chief Complaint: Here for rehabilitation. HPI Narrative 06/26/2023 ROSITA KENNEDY, is a 77 Female who presents to [facility] Emergency Department with weakness, frequent falls. Generalized weakness for 1 week. On treatment for metastatic uterine cancer per Dr. Frazier. Immunotherapy infusion 1 week prior, plus oral medications. Oral medications intolerable, stopped. Fallen 4 times in 1 week, hit head earlier, but not on day of presentation. on Xarelto for pulmonary embolism. WBC 8.1, Hemoglobin 10.8, LFT okay, Troponin 8. CT head okay, Urinalysis negative. Not safe to go home alone. 06/26/2023 Admit to Hospital. PT/OT for debility. IV fluids for dehydration. 06/27/2023 Feels okay. Correct dehydration. PT/OT SNF. 06/28/2023 Feels well, no overnight events. PT/OT for TCU. 06/29/2023 Admit to TCU with debility, here for rehabilitation, strengthening, prior to discharge home alone. Resident appears well, eating supper, she ordered pizza. [facility] Medical History Brain bleed Cancer Depression DVT (deep venous thrombosis) Glaucoma Hypertension Hypothyroidism Multiple sclerosis Presence of IVC filter Pulmonary embolism Pulmonary embolism Pulmonary nodule Uterine cancer Home Medications cholecalciferol (vitamin D3) 25 mcg (1,000 unit) tablet (Vitamin D3) 1,000 unit PO DAILY supplement 09/08/18 [History Last Taken 06/28/23 07:55] multivitamin with folic acid 400 mcg tablet (Thera) 1 tab PO DAILY supplement 09/08/18 [History Last Taken 06/29/23 08:05] sertraline 100 mg tablet 125 mg PO DAILY mental health 09/08/18 [History Last Taken 06/28/23 07:55] brimonidine 0.2 % eye drops 2 drp RIGHT EYE TID glaucoma 08/31/22 [History Last Taken 06/29/23 05:35] levothyroxine 25 mcg tablet 25 mcg PO DAILY thyroid 08/31/22 [History Last Taken 06/29/23 05:35] methenamine hippurate 1 gram tablet 1 g PO BID Bladder 08/31/22 [History Last Taken 06/28/23 20:50] mirtazapine 15 mg tablet 15 mg PO QHS sleep 08/31/22 [History Last Taken 06/28/23 20:50] polyethylene glycol 3350 17 gram/dose oral powder (Miralax) 17 g PO DAILY constipation 08/31/22 [History Last Taken 06/28/23 19:55] latanoprost 0.005 % eye drops 1 drp EACH EYE Eye health 09/11/22 [History Last Taken 06/28/23 20:50] rivaroxaban 20 mg tablet (Xarelto) 20 mg PO DINNER BLOOD THINNER 30 days #30 tabs 09/16/22 [Rx Last Taken 06/28/23 16:40] Allergy/AdvReac Type Severity Reaction Status Date / Time doxorubicin Allergy Severe Anaphylaxis Verified 06/26/23 20:23 codeine Allergy Hives Verified 06/26/23 20:23 methylprednisolone Allergy Hives Verified 06/26/23 20:23 Sulfa (Sulfonamide Allergy Hives Verified 06/26/23 20:23 Antibiotics) erythromycin base AdvReac Upset Verified 06/26/23 20:23 Stomach Family History Other Dementia Heart disease Surgical History H/O: hysterectomy History of section History of embolic filter insertion Social History household members: none housing: house Smoking Status: Never smoker alcohol intake: never substance use type: does not use ROS Constitutional Constitutional: Denies chills, fever(s) or weight gain ENT HEENT: Denies headache(s), nasal congestion or nasal discharge Cardiovascular Cardiovascular: Denies chest pain or palpitations Respiratory/Chest Respiratory/Chest: Denies cough, excessive phlegm production or shortness of breath with exertion Gastrointestinal Gastrointestinal: Denies abdominal pain, nausea or vomiting Genitourinary Genitourinary: Denies dysuria Musculoskeletal Musculoskeletal: Denies joint pain or joint swelling Integumentary Integumentary: Denies rash or wounds Neurologic Neurologic: Denies focal weakness, numbness or tingling Psychiatric Psychiatric: Denies anxiety, auditory hallucinations, depression, homicidal ideation or suicidal ideation Vital Signs Vital Signs Vital Signs: 06/29/23 14:42 06/29/23 14:42 Temperature 98.1 F Temperature Source Temporal Pulse Rate 86 Pulse Rhythm Regular Pulse Strength Normal (2+) Respiratory Rate 18 Respiratory Effort Normal Non-Labored Respiratory Depth Normal Respiratory Pattern Normal Blood Pressure 136/75 H Blood Pressure Mean 95 Blood Pressure Source Monitor Blood Pressure Position Sitting Blood Pressure Location Left Arm Pulse Ox 93 Oxygen Delivery Method Room Air Weight Weight: 50.303 kg Body Mass Index (BMI) 21.7 Physical Exam Const alert General Appearance: cooperative HEENT normocephalic Eyes PERRL and EOMs intact bilaterally Neck supple, no JVD and no carotid bruits Resp normal respiratory effort, normal air movement and clear to auscultation bilaterally Cardio regular rate and regular rhythm GI normal to inspection, nondistended, normoactive bowel sounds, non-tender and non-distended Extremity normal capillary refill General Extremity: Negative for edema Skin no rashes or lesions noted General Skin Exam: no breakdown Psych affect normal Appearance: appropriate Assessment & Plan Assessment/Plan (1) Debility: (2) Weakness: (3) Falls frequently: (4) Dehydration: (5) Cancer, uterine: (6) Multiple sclerosis: (7) Depression: (8) Glaucoma: (9) Hypothyroidism: (10) Recurrent urinary tract infection: (11) Appetite loss: (12) Hypokalemia: (13) Recurrent deep vein thrombosis (DVT): PLAN: Plan 77 year old female with below past medical history significant for metastatic uterine cancer, hospitalized for weakness, falls, dehydration, admitted to TCU with debility, here for rehabilitation, strengthening, prior to discharge home alone. * Debility - PT/OT. * Pain - Tylenol 1000mg q6 prn pain (1-10). * Bowel - Miralax 17gm daily, senna/colace 1 tablet bid prn. * Adult immunization - Administer pneumonia vaccine, covid19 vaccine, flu vaccine as appropriate. * DVT prophylaxis - on Xarelto. * Glaucoma - Brimonidine 0.2% 2gtt OD TID, Latanoprost 0.05% 1gtt ou qhs. * Vitamin D deficiency - D3 25mcg daily. * Nutrition - Ensure Plus 120ml 4x/day, MVI daily. * Hypothyroidism - Levothyroxine 25mcg daily. * Recurrent UTI - Methenamine 1gm bid. * Appetite loss - Mirtazapine 15mg qhs, stable chronic prison use, GDR not recommended. * Recurrent DVT - Xarelto 20mg daily. * Depression - Sertraline 125mg daily. 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 06/29/232023 <Electronically signed by Bernardino Min MD> Cosigner Signature (if applicable): CC: Dr. Bernardino Min MD~ Signed [facility] Work Phone: 1(454) 789-321510-31-2023 Discharge summary Author Ethan Duarte [facility] June 29, 2023 12:12pm Note Date/Time June 29, 2023 1 2:12pm [facility] Medical Records Department [address] [place] [id number] Discharge Summary 06/29/23 1210 MR#: [id number] Acct: [id number] Name: ROSITA KENNEDY Rep #:[id number] : 1945 77 From: Ethan Duarte DO PCP: Dr. Bernardino Min MD Status:ADM I NO Location: [place] [address] Providers Date of Admission: 06/26/23 Primary Care Physician: Dr. 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 Multifactorial due to severe multiple medical comorbidities (MS, stage IV uterine cancer) and complicated by dehydration. Correct the dehydration PT OT eval. Plan Chronic conditions: * Hypothyroidism: TSH on 09/28/22 was normal. With declining functional status will repeat TSH. * Glaucoma: continue eye drops * VTE: for history of pulmonary embolism and has an IVC filter. Continue rivaroxaban * MS: no active medications * Stage IV Uterine cancer: follows Dr. Frazier. DVT prophylaxis: Not indicated as patient is on Xarelto Code DNRCCA, DNI Disposition: Plan for halfway facility. Medications at Discharge Home Medications cholecalciferol (vitamin D3) 25 mcg (1,000 unit) tablet (Vitamin D3) 1,000 unit PO DAILY supplement 09/08/18 multivitamin with folic acid 400 mcg tablet (Thera) 1 tab PO DAILY supplement 09/08/18 sertraline 100 mg tablet 125 mg PO DAILY mental health 09/08/18 brimonidine 0.2 % eye drops 2 drp RIGHT EYE TID glaucoma 08/31/22 levothyroxine 25 mcg tablet 25 mcg PO DAILY thyroid 08/31/22 methenamine hippurate 1 gram tablet 1 g PO BID Bladder 08/31/22 mirtazapine 15 mg tablet 15 mg PO QHS sleep 08/31/22 polyethylene glycol 3350 17 gram/dose oral powder (Miralax) 17 g PO DAILY constipation 08/31/22 latanoprost 0.005 % eye drops 1 drp EACH EYE HS Eye health 09/11/22 rivaroxaban 20 mg tablet (Xarelto) 20 mg PO DINNER BLOOD THINNER 30 days #30 tabs 09/16/22 Hospital Course Operations None Procedures None Medical Records Data Medical Nutrition Assessment Dietitian: Malnutrition Criteria Met Start: 06/27/23 13:28 Freq: Status: Active Protocol: Document 06/27/23 13:28 REZA (Rec: 06/27/23 13:28 [facility] [id number]) Nutrition Malnutrition Evidence of Malnutrition Exists Yes Malnutrition (severe): Chronic Evidenced By Suboptimal Energy Intake ( Severe),Weight Loss (Severe) Clinical Problem Chronic Disease or Condition Related Malnutrition Etiology related to decreased ability to consume sufficient energy to meet estimated nutrient needs Signs/Symptoms as evidenced by significant weight loss of 12lb, or 10.3%, in ~3.5 months based 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 Status Active Problem Recommendation Dietitian Recommendations/Changes Continue with Regular diet for liberalization. Continue with Ensure Plus High Protein 120mL 4x/day with medpass. Will add beneprotein to applesauce with breakfast and Magic Cup at lunch and dinner to further increase oral intakes. Weight / BMI Weight Weight: 48 kg Body Mass Index (BMI) 20.6 ABG / Lab / Microbiology Data 06/27/23 08:05 06/27/23 08:05 Microbiology: Microbiology 06/28/23 06:40 Urine, Clean Catch Urine Culture - Preliminary Culture exhibits no growth. 06/26/23 20:55 Nasal Secretion SARS-CoV-2 & FLU Antigen (Rapid) - Final D/C Instructions Discharge Diet: No restrictions Meaningful Use Info Meaningful Use Diagnoses (Choose all that apply): None applicable Discharge Plan Admission Admit Date/Time: 06/26/23 23:26 Primary Reason for Your Visit: debility Attending Provider: Ethan Duarte Primary Care Provider: Bernardino Min Chi Consulting Providers: Jason Arteaga Discharge Orders/Prescriptions Prescriptions: Continued sertraline 100 MG tablet 125 mg PO DAILY Patient Comments: TAKE 1 TABLET BY MOUTH EVERY DAY cholecalciferol (vitamin D3) [Vitamin D3] 1,000 UNIT tablet 1,000 unit PO DAILY multivitamin with folic acid [Thera] 1 TABLET tablet 1 tab PO DAILY levothyroxine 25 mcg tablet 25 mcg PO DAILY methenamine hippurate 1 gram tablet 1 g PO BID Patient Comments: TAKE 1 TABLET BY MOUTH TWICE A DAY WITH MEALS brimonidine 0.2 % drops 2 drp RIGHT EYE TID Patient Comments: INSTILL 1 DROP INTO RIGHT EYE 3 TIMES A DAY mirtazapine 15 mg tablet 15 mg PO QHS Patient Comments: 1 tablet by mouth once a day polyethylene glycol 3350 [Miralax] 17 gram/dose Powder 17 g PO DAILY latanoprost 0.005 % drops 1 drp EACH EYE HS Xarelto 20 mg Tablet 20 mg PO DINNER 30 Days Qty: 30 0RF Referrals / Follow Up: Bernardino Min Chi, MD [Primary Care Provider] - Within 2 Weeks Disposition Disposition (needs filled in before D/C Order can be placed): [facility] Facility Charges/Coding Visit Charges Inpatient E&M: 68735 Disch Hosp 06/29/23 1212 <Electronically signed by Ethan Duarte DO> Cosigner Signature (if applicable): CC: Dr. Ethan Duarte DO; Dr. Bernardino Min MD~ Signed [facility] Work Phone: 1(293) 591-896410-31-2023 Progress note Author Ethan Duarte [facility] June 29, 2023 12:10pm Note Date/Time June 29, 2023 8 :16am [facility] Medical Records Department [address] [place] [address] Progress Note - Hospitalist 06/29/23 0815 MR#: [id number] Acct: [id number] Name: ROSITA KENNEDY Rep #:[id number] : 1945 77 From: Ethan Duarte DO PCP: Dr. Bernardino Min MD Status:ADM I NO Location: [place] [address] Reason for Visit Reason for Visit: Diagnoses Dehydration (06/26/23) Other malaise (06/26/23) Subjective Subjective Feels well. No complaints. Objective Data Objective Data Vital Signs: Vital Signs Temp Pulse Resp BP Pulse Ox O2 Del Method 37.0 C 72 18 157/75 H 94 Room Air 06/29/23 07:59 06/29/23 07:59 06/29/23 07:59 06/29/23 07:59 06/29/23 07:59 06/29/23 07:59 Oxygen Delivery Method Room Air Weight: 48 kg Body Mass Index (BMI) 20.6 Intake & Output: Intake and Output for Last 24 Hours 06/27/23 06/28/23 06/29/23 23:59 23:59 23:59 Intake Total 1939 1918.75 / 2558.75 1762.5 / 1762.5 Output Total 100 / 100 200 / 200 Balance 1839 1940 1718.75 / 2358.75 1762.5 / 1762.5 Medical Nutrition Assessment Dietitian: Malnutrition Criteria Met Start: 06/27/23 13:28 Freq: Status: Active Protocol: Document 06/27/23 13:28 REZA (Rec: 06/27/23 13:28 REZA [id number]) Nutrition Malnutrition Evidence of Malnutrition Exists Yes Malnutrition (severe): Chronic Evidenced By Suboptimal Energy Intake ( Severe),Weight Loss (Severe) Clinical Problem Chronic Disease or Condition Related Malnutrition Etiology related to decreased ability to consume sufficient energy to meet estimated nutrient needs Signs/Symptoms as evidenced by significant weight loss of 12lb, or 10.3%, in ~3.5 months based 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 Status Active Problem Recommendation Dietitian Recommendations/Changes Continue with Regular diet for liberalization. Continue with Ensure Plus High Protein 120mL 4x/day with medpass. Will add beneprotein to applesauce with breakfast and Magic Cup at lunch and dinner to further increase oral intakes. Lab / Micro Data 06/27/23 08:05 06/27/23 08:05 Labs: Laboratory Results - last 24 hr 06/27/23 08:05: Vitamin D 25-Hydroxy 45.7 Micro: Microbiology 06/26/23 20:55 Nasal Secretion SARS-CoV-2 & FLU Antigen (Rapid) - Final Physical Exam Const alert and no apparent distress Psych affect normal Assessment & Plan Assessment/Plan (1) Declining functional status: PLAN: Fallen several times this past week. Multifactorial due to severe multiple medical comorbidities (MS, stage IV uterine cancer) and complicated by dehydration. Correct the dehydration PT OT eval. PLAN: Plan Chronic conditions: * Hypothyroidism: TSH on 09/28/22 was normal. With declining functional status will repeat TSH. * Glaucoma: continue eye drops * VTE: for history of pulmonary embolism and has an IVC filter. Continue rivaroxaban * MS: no active medications * Stage IV Uterine cancer: follows Dr. Frazier. DVT prophylaxis: Not indicated as patient is on Xarelto Code DNRCCA, DNI Disposition: Plan for halfway facility. 06/29/23 1210 <Electronically signed by Ethan Duarte DO> Cosigner Signature (if applicable): CC: ~ Signed [facility] Work Phone: 1([phone]) 284-378310-31-2023 Discharge summary Author Ethan Duarte [facility] June 29, 2023 8:20am Note Date/Time June 29, 2023 8 :17am [facility] Medical Records Department [address] [place] [address] Transfer to [facility] MR#: [id number] Acct: [id number] Name: ROSITA KENNEDY Rep #:[id number] : 1945 77 From: Ethan Duarte DO PCP: Dr. Bernardino Min MD Status:ADM I NO Certification of patient admission REQUIRED AT TIME OF ADMISSION. I CERTIFY THAT POST-HOSPITAL ECF SERVICES ARE REQUIRED TO BE GIVEN ON AN IN-PATIENT BASIS BECAUSE OF THE ABOVE NAMED PATIENT'S NEED FOR LONGTERM CARE ON A CONTINUING BASIS FOR THE CONDITION(S) FOR WHICH HE/SHE WAS RECEIVING IN-PATIENT HOSPITAL SERVICES PRIOR TO HIS/HER TRANSFER TO THE ECF. 06/29/23 0820<Electronically signed by Ethan Duarte DO> Diet Diet Order/Speech Therapy: 06/27/23 00:18 Diet: Regular - General Food consistency:: Regular Liquid Consistency:: Regular/Thin Type of Dietary Supplement:: Magic Cup Dessert Diet Comments: Elaina Magic Cup w/ lunch and dinner; applesauce and beneproteinw/ bfast Routine Orders/Code Status Code Status: DNRCC-A (no intubation. ) Wound(s) LEFT GROIN: Wound Type: FILTER PLACEMENT Therapies Weight Bearing: Full weight bearing Physical Therapy: Eval and Treat Occupational Therapy: Eval and Treat Problem/Diagnosis (1) Declining functional status: Status: Acute Code(s): R53.81 - Other malaise Plan: Fallen several times this past week. Multifactorial due to severe multiple medical comorbidities (MS, stage IV uterine cancer) and complicated by dehydration. Correct the dehydration PT OT eval. Plan Chronic conditions: * Hypothyroidism: TSH on 09/28/22 was normal. With declining functional status will repeat TSH. * Glaucoma: continue eye drops * VTE: for history of pulmonary embolism and has an IVC filter. Continue rivaroxaban * MS: no active medications * Stage IV Uterine cancer: follows Dr. Frazier. DVT prophylaxis: Not indicated as patient is on Xarelto Code DNRCCA, DNI Disposition: Plan for halfway facility. Waiting on insurance authorization. Allergies/Procedures Done in Hospital Allergies doxorubicin Allergy (Severe, Verified 06/26/23 20:23) Anaphylaxis codeine Allergy (Verified 06/26/23 20:23) Hives methylprednisolone Allergy (Verified 06/26/23 20:23) Hives Sulfa (Sulfonamide Antibiotics) Allergy (Verified 06/26/23 20:23) Hives erythromycin base Adverse Reaction (Verified 06/26/23 20:23) Upset Stomach Procedures: None Type of Care/Length of Stay Estimated LOS: Convalescent Care Less Than 30 days Type of Care Needed: Skilled Rehab Potential: Good Prognosis: Fair Additional Orders/Day of Discharge Day of Discharge: 06/29/23 Dietary and Speech Recommendations Dietitian Recommendations/Changes: Continue with Regular diet for liberalization. Continue with Ensure Plus High Protein 120mL 4x/day with medpass. Will add beneprotein to applesauce with breakfast and Magic Cup at lunch and dinner to further increase oral intakes. Discharge Plan Admission Admit Date/Time: 06/26/23 23:26 Primary Reason for Your Visit: debility Attending Provider: Ethan Duarte Primary Care Provider: Bernardino Min Chi Consulting Providers: Jason Arteaga Discharge Orders/Prescriptions Prescriptions: Continued sertraline 100 MG tablet 125 mg PO DAILY Patient Comments: TAKE 1 TABLET BY MOUTH EVERY DAY cholecalciferol (vitamin D3) [Vitamin D3] 1,000 UNIT tablet 1,000 unit PO DAILY multivitamin with folic acid [Thera] 1 TABLET tablet 1 tab PO DAILY levothyroxine 25 mcg tablet 25 mcg PO DAILY methenamine hippurate 1 gram tablet 1 g PO BID Patient Comments: TAKE 1 TABLET BY MOUTH TWICE A DAY WITH MEALS brimonidine 0.2 % drops 2 drp RIGHT EYE TID Patient Comments: INSTILL 1 DROP INTO RIGHT EYE 3 TIMES A DAY mirtazapine 15 mg tablet 15 mg PO QHS Patient Comments: 1 tablet by mouth once a day polyethylene glycol 3350 [Miralax] 17 gram/dose Powder 17 g PO DAILY latanoprost 0.005 % drops 1 drp EACH EYE HS Xarelto 20 mg Tablet 20 mg PO DINNER 30 Days Qty: 30 0RF Referrals / Follow Up: Bernardino Min Chi, MD [Primary Care Provider] - Within 2 Weeks Disposition Disposition (needs filled in before D/C Order can be placed): [facility] Facility 06/29/23 0820 <Electronically signed by Ethan Duarte DO> Cosigner Signature (if applicable): CC: Dr. Jason Arteaga MD; Dr. eBrnardino Min MD ~ [facility] Work Phone: 1(803) 157-255010-30-2023 Progress note Author Ethan Duarte [facility] June 28, 2023 12:59pm Note Date/Time June 28, 2023 7 :58am [facility] Medical Records Department [address] [place] [address] Progress Note - Hospitalist 06/28/23 0757 MR#: [id number] Acct: [id number] Name: ROSITA KENNEDY Rep #:[id number] : 1945 77 From: Ethan Duarte DO PCP: Dr. Bernardino Min MD Status:ADM I NO [id number] Reason for Visit Reason for Visit: Diagnoses Dehydration (06/26/23) Other malaise (06/26/23) Subjective Subjective Feels well. No events overnight. Objective Data Objective Data Vital Signs: Vital Signs Temp Pulse Resp BP Pulse Ox O2 Del Method 35.9 C L 73 18 153/85 H 94 Room Air 06/28/23 07:48 06/28/23 07:48 06/28/23 07:48 06/28/23 07:48 06/28/23 07:48 06/28/23 07:48 Oxygen Delivery Method Room Air Weight: 48 kg Body Mass Index (BMI) 20.6 Intake & Output: Intake and Output for Last 24 Hours 06/26/23 06/27/23 06/28/23 23:59 23:59 23:59 Intake Total 1939 / 2039 1150 / 1150 Output Total 100 / 100 Balance 1839 / 194 1150 / 1150 Medical Nutrition Assessment Dietitian: Malnutrition Criteria Met Start: 06/27/23 13:28 Freq: Status: Active Protocol: Document 06/27/23 13:28 REZA (Rec: 06/27/23 13:28 [facility] [id number]) Nutrition Malnutrition Evidence of Malnutrition Exists Yes Malnutrition (severe): Chronic Evidenced By Suboptimal Energy Intake ( Severe),Weight Loss (Severe) Clinical Problem Chronic Disease or Condition Related Malnutrition Etiology related to decreased ability to consume sufficient energy to meet estimated nutrient needs Signs/Symptoms as evidenced by significant weight loss of 12lb, or 10.3%, in ~3.5 months based 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 Status Active Problem Recommendation Dietitian Recommendations/Changes Continue with Regular diet for liberalization. Continue with Ensure Plus High Protein 120mL 4x/day with medpass. Will add beneprotein to applesauce with breakfast and Magic Cup at lunch and dinner to further increase oral intakes. Lab / Micro Data 06/27/23 08:05 06/27/23 08:05 Labs: Laboratory Results - last 24 hr 06/27/23 08:05: WBC 6.3, RBC 4.08 L, Hgb 10.0 L, Hct 33.9 L, MCV 83.1, MCH 24.5 L, MCHC 29.5 L, RDW Std Deviation 49.7 H, RDW Coeff of Lauro 17.0 H, Plt Count 362, MPV 9.2, Immature Gran % (Auto) 0.300, Neut % (Auto) 69.1, Lymph % (Auto) 17.6 L, Gilliam % (Auto) 9.3, Eos % (Auto) 3.2, Baso % (Auto) 0.5, Absolute Neuts (auto) 4.3, Absolute Lymphs (auto) 1.10, Nucleated RBC % 0, Sodium 141, Potassium 3.6, Chloride 109 H, Carbon Dioxide 27.0, Anion Gap 5, BUN 23 H, Creatinine 0.66, Estim Creat Clear Calc 34.91, Est GFR (MDRD) Af Amer 112, Est GFR (MDRD) Non-Af 93, BUN/Creatinine Ratio 34.8 H, Glucose 115 H, Calcium 7.9 L,TSH 3.08 06/28/23 06:40: Urine Color Yellow, Urine Clarity Clear, Urine pH 7.0, Ur Specific [place] 1.010, Urine Protein Negative, Urine Glucose (UA) Normal, Urine Ketones Negative, Urine Occult Blood Negative, Urine Nitrite Negative, Urine Bilirubin Negative, Urine Urobilinogen Normal, Ur Leukocyte Esterase Negative, Urine RBC 0 SEEN, Urine WBC 0-5 SEEN, Ur Squamous Epith Cells 0 SEEN, Urine Bacteria 0 SEEN, Urine Mucus 0 SEEN Micro: Microbiology 06/26/23 20:55 Nasal Secretion SARS-CoV-2 & FLU Antigen (Rapid) - Final Physical Exam Const alert and no apparent distress HEENT head/scalp atraumatic and moist oral mucous membranes Neuro Sensorium / Orientation: awake and alert Psych affect normal Assessment & Plan Assessment/Plan (1) Declining functional status: PLAN: Fallen several times this past week. Multifactorial due to severe multiple medical comorbidities (MS, stage IV uterine cancer) and complicated by dehydration. Correct the dehydration PT OT eval. PLAN: Plan Chronic conditions: * Hypothyroidism: TSH on 09/28/22 was normal. With declining functional status will repeat TSH. * Glaucoma: continue eye drops * VTE: for history of pulmonary embolism and has an IVC filter. Continue rivaroxaban * MS: no active medications * Stage IV Uterine cancer: follows Dr. Frazier. DVT prophylaxis: Not indicated as patient is on Xarelto Code DNRCCA, DNI Disposition: Plan for halfway facility. Waiting on insurance authorization. Charges/Coding Visit Charges Inpatient E&M: 14061 Subs Hosp L1 06/28/23 1259 <Electronically signed by Ethan Duarte DO> Cosigner Signature (if applicable): CC: ~ Signed [facility] Work Phone: 1(319) 781-823910-29-2023 Progress note Author Ethan [facility] June 27, 2023 12:12pm Note Date/Time June 27, 2023 8 :11am [facility] Medical Records Department [address] [place] [address] Progress Note - Hospitalist 06/27/23 08 MR#: [id number] Acct: [id number] Name: ROSITA KENNEDY Rep #:[id number] : 1945 77 From: Ethan Duarte DO PCP: Dr. Bernardino Min MD Status:ADM I NO Location: [place] [address] Reason for Visit Reason for Visit: Diagnoses Dehydration (06/26/23) Other malaise (06/26/23) Subjective Subjective Feels ok. Objective Data Objective Data Vital Signs: Vital Signs Temp Pulse Resp BP Pulse Ox O2 Del Method 36.9 C 80 16 156/90 H 94 Room Air 06/27/23 06:41 06/27/23 06:41 06/27/23 06:41 06/27/23 06:41 06/27/23 06:41 06/27/23 06:41 Oxygen Delivery Method Room Air Weight: 48 kg Body Mass Index (BMI) 20.6 Intake & Output: Intake and Output for Last 24 Hours 06/25/23 06/26/23 06/27/23 23:59 23:59 23:59 Intake Total 580 / 580 Output Total 100 / 100 Balance 480 / 480 Lab / Micro Data 06/27/23 08:05 06/27/23 08:05 Labs: Laboratory Results - last 24 hr 06/26/23 21:04: WBC 8.1, RBC 4.31, Hgb 10.8 L, Hct 35.9 L, MCV 83.3, MCH 25.1 L,MCHC 30.1 L, RDW Std Deviation 49.3 H, RDW Coeff of Lauro 16.8 H, Plt Count 397, MPV 9.0, Immature Gran % (Auto) 0.400, Neut % (Auto) 71.7 H, Lymph % (Auto) 15.3L, Gilliam % (Auto) 9.1, Eos % (Auto) 3.1, Baso % (Auto) 0.4, Absolute Neuts (auto)5.8, Absolute Lymphs (auto) 1.23, Nucleated RBC % 0, Sodium 140, Potassium 3.5, Chloride 105, Carbon Dioxide 28.0, Anion Gap 7, BUN 29 H, Creatinine 0.82, EstimCreat Clear Calc 42.58, Est GFR (MDRD) Af Amer 88, Est GFR (MDRD) Non-Af 72, BUN/Creatinine Ratio 35.5 H, Glucose 120 H, Calcium 8.1 L, Total Bilirubin 0.40,AST 18, ALT 13, Alkaline Phosphatase 104, Troponin I High Sens 8, Total Protein 6.8, Albumin 2.9 L, Globulin 3.9, Albumin/Globulin Ratio 0.7 L 06/26/23 22:02: Urine Color Yellow, Urine Clarity Clear, Urine pH 6.0, Ur Specific [place] 1.015, Urine Protein 30 H, Urine Glucose (UA) Normal, Urine Ketones Negative, Urine Occult Blood 25 H, Urine Nitrite Negative, Urine Bilirubin Negative, Urine Urobilinogen Normal, Ur Leukocyte Esterase 25 H, UrineRBC 0 SEEN, Urine WBC 0-5 SEEN, Ur Squamous Epith Cells 0-5 SEEN, Urine Bacteria0 SEEN, Urine Mucus 0 SEEN Micro: Microbiology 06/26/23 20:55 Nasal Secretion SARS-CoV-2 & FLU Antigen (Rapid) - Final Radiography Diagnostic Testing: Radiology Impression Brain CT 06/26/23 20:47 IMPRESSION: No acute intracranial hemorrhage. Similar exam findings compared to prior study. Electronically Signed: Pedro Luis Cuellar MD at 22:01 EDT , Physical Exam Const alert and no apparent distress Constitutional Narrative: up ambulating with therapy using a large wheeled walker. HEENT head/scalp atraumatic and moist oral mucous membranes Extremity normal to inspection Neuro Sensorium / Orientation: awake and alert Assessment & Plan Assessment/Plan (1) Declining functional status: PLAN: Fallen several times this past week. Multifactorial due to severe multiple medical comorbidities (MS, stage IV uterine cancer) and complicated by dehydration. Correct the dehydration PT OT eval. PLAN: Plan Chronic conditions: * Hypothyroidism: TSH on 09/28/22 was normal. With declining functional status will repeat TSH. * Glaucoma: continue eye drops * VTE: for history of pulmonary embolism and has an IVC filter. Continue rivaroxaban * MS: no active medications * Stage IV Uterine cancer: follows Dr. Frazier. DVT prophylaxis: Not indicated as patient is on Xarelto Code DNRCCA, DNI DW DIL, states pt undergoing palliative chemotherapy for Uterine CA. Charges/Coding Visit Charges Inpatient E&M: 23239 Subs Hosp L1 06/27/23 1212 <Electronically signed by Ethan Duarte DO> Cosigner Signature (if applicable): CC: ~ Signed [facility] Work Phone: 1(983) 372-977910-29-2023 History and physical note Author Jason Arteaga [facility] June 27, 2023 6:37am Note Date/Time June 26, 2023 1 1:24pm [facility] Medical Records Department [address] [place] [address] H&P Exam - Hospitalist 06/26/23 2324 MR#: [id number] Acct: [id number] Name: ROSITA KENNEDY Rep #:[id number] : 1945 77 From: Jason Arteaga MD PCP: Dr. Bernardino Min MD Status:ADM I NO Location: MO3 [id number] HPI - General General Date of Admission: 06/26/23 Date of Service: 06/26/23 Chief Complaint: Weakness HPI Narrative ROSITA KENNEDY, is a 77 F with a significant history of multiple sclerosis; uterine cancer metastasized to the spine on many therapy who presents emergency department with 1 week history of progressively worsening weakness. Reportedly in the past week patient has fallen 4 times. Because of weakness patient is having difficulty getting around. Patient has a poor appetite and poor urine output. Patient is on Xarelto for history of pulmonary embolism and she has an IVC filter. Patient is open to placement if indicated. [facility] Medical History Brain bleed Cancer Depression DVT (deep venous thrombosis) Glaucoma Hypertension Hypothyroidism Multiple sclerosis Presence of IVC filter Pulmonary embolism Pulmonary embolism Pulmonary nodule Uterine cancer Home Medications cholecalciferol (vitamin D3) 25 mcg (1,000 unit) tablet (Vitamin D3) 1,000 unit PO DAILY supplement 09/08/18 [History Last Taken 10/17/22] multivitamin with folic acid 400 mcg tablet (Thera) 1 tab PO DAILY supplement 09/08/18 [History Last Taken 10/17/22] sertraline 100 mg tablet 125 mg PO DAILY mental health 09/08/18 [History Last Taken 10/18/22] brimonidine 0.2 % eye drops 2 drp RIGHT EYE TID glaucoma 08/31/22 [History Last Taken 08/30/22] levothyroxine 25 mcg tablet 25 mcg PO DAILY thyroid 08/31/22 [History Last Taken 08/31/22] methenamine hippurate 1 gram tablet 1 g PO BID Bladder 08/31/22 [History Last Taken 10/18/22] mirtazapine 15 mg tablet 15 mg PO QHS sleep 08/31/22 [History Last Taken 10/17/22] polyethylene glycol 3350 17 gram/dose oral powder (Miralax) 17 g PO DAILY constipation 08/31/22 [History Last Taken 10/18/22] latanoprost 0.005 % eye drops 1 drp EACH EYE Eye health 09/11/22 [History Last Taken 10/17/22] rivaroxaban 20 mg tablet (Xarelto) 20 mg PO DINNER BLOOD THINNER 30 days #30 tabs 09/16/22 [Rx Last Taken 10/17/22] Allergy/AdvReac Type Severity Reaction Status Date / Time doxorubicin Allergy Severe Anaphylaxis Verified 06/26/23 20:23 codeine Allergy Hives Verified 06/26/23 20:23 methylprednisolone Allergy Hives Verified 06/26/23 20:23 Sulfa (Sulfonamide Allergy Hives Verified 06/26/23 20:23 Antibiotics) erythromycin base AdvReac Upset Verified 06/26/23 20:23 Stomach Family History Other Dementia Heart disease Surgical History H/O: hysterectomy History of section History of embolic filter insertion Social History household members: none housing: house Smoking Status: Never smoker alcohol intake: never substance use type: does not use ROS ROS Narrative Pertinent positives and pertinent negatives as noted in HPI. All other systems were reviewed and are negative Vital Signs Vital Signs Vital Signs: 06/26/23 20:24 06/26/23 21:12 06/26/23 21:28 Temperature 98.2 F Temperature Source Temporal Pulse Rate 90 Pulse Rate [Lying] 77 Pulse Rate [Sitting (for 1 minute prior to obtaining)] 72 Respiratory Rate 16 Respiratory Effort Normal Respiratory Pattern Normal Blood Pressure 161/98 H Blood Pressure [Lying] 175/86 H Blood Pressure [Sitting (for 1 minute prior to obtaining)] 167/90 H Blood Pressure [Standing (for 1 minute prior to obtaining)] 158/88 H Blood Pressure Mean 119 Blood Pressure Mean [Lying] 115 Blood Pressure Mean [Sitting (for 1 minute prior to obtaining)] 115 Blood Pressure Mean [Standing (for 1 minute prior to obtaining)] 111 Pulse Ox 100 Weight Weight: 51.9 kg Body Mass Index (BMI) 22.3 Physical Exam Narrative Physical exam: General: Well-nourished, well-developed. Head: Normocephalic, atraumatic, no tenderness Eyes: Vision is grossly intact. EOMI ENT, no trauma, moist mucous membranes, no rhinorrhea Neck: Nontender, No thyromegaly. CVS: Regular rate and rhythm. S1-S2 present. No murmur, gallop or rub. Respiratory : clear to auscultation bilaterally, chest wall nontender Abdomen: Soft, nontender, nondistended, normal bowel sounds, no masses : Deferred Back: Nontender, no CVA tenderness Extremities: Nontender full range of motion, no trauma Skin: Normal color, no trauma, abrasions Neuro: Alert, oriented, cranial nerves II through XII grossly intact. Psychiatry: Normal mood. Normal affect. Not depressed. Not anxious. Results Lab / Micro Data 06/26/23 21:04 06/26/23 21:04 Labs: Laboratory Results - last 24 hr 06/26/23 21:04: WBC 8.1, RBC 4.31, Hgb 10.8 L, Hct 35.9 L, MCV 83.3, MCH 25.1 L,MCHC 30.1 L, RDW Std Deviation 49.3 H, RDW Coeff of Lauro 16.8 H, Plt Count 397, MPV 9.0, Immature Gran % (Auto) 0.400, Neut % (Auto) 71.7 H, Lymph % (Auto) 15.3L, Gilliam % (Auto) 9.1, Eos % (Auto) 3.1, Baso % (Auto) 0.4, Absolute Neuts (auto)5.8, Absolute Lymphs (auto) 1.23, Nucleated RBC % 0, Sodium 140, Potassium 3.5, Chloride 105, Carbon Dioxide 28.0, Anion Gap 7, BUN 29 H, Creatinine 0.82, EstimCreat Clear Calc 42.58, Est GFR (MDRD) Af Amer 88, Est GFR (MDRD) Non-Af 72, BUN/Creatinine Ratio 35.5 H, Glucose 120 H, Calcium 8.1 L, Total Bilirubin 0.40,AST 18, ALT 13, Alkaline Phosphatase 104, Troponin I High Sens 8, Total Protein 6.8, Albumin 2.9 L, Globulin 3.9, Albumin/Globulin Ratio 0.7 L 06/26/23 22:02: Urine Color Yellow, Urine Clarity Clear, Urine pH 6.0, Ur Specific [place] 1.015, Urine Protein 30 H, Urine Glucose (UA) Normal, Urine Ketones Negative, Urine Occult Blood 25 H, Urine Nitrite Negative, Urine Bilirubin Negative, Urine Urobilinogen Normal, Ur Leukocyte Esterase 25 H, UrineRBC 0 SEEN, Urine WBC 0-5 SEEN, Ur Squamous Epith Cells 0-5 SEEN, Urine Bacteria0 SEEN, Urine Mucus 0 SEEN Micro: Microbiology 06/26/23 20:55 Nasal Secretion SARS-CoV-2 & FLU Antigen (Rapid) - Final Radiology Impression Brain CT 06/26/23 20:47 IMPRESSION: No acute intracranial hemorrhage. Similar exam findings compared to prior study. Electronically Signed: Pedro Luis Cuellar MD at 22:01 EDT Reading Location ID and State: [facility] / [place] Tel , Service support , Assessment & Plan Assessment/Plan (1) Acute dehydration: (2) Declining functional status: PLAN: Plan Declining functional status/debility Radiologist impression of brain CT: No acute intracranial hemorrhage. Brain CT was independently interpreted, agrees to radiology interpretation Vitamin D level on 09/28/2022 was 58.2, normal, repeat. PT and OT to work with patient. Case management consult Acute dehydration Mild BUN of 29 that is above patient's baseline but of normal creatinine. Started on IV fluids at the emergency department and continued. Hypothyroidism: TSH on 09/28/22 was normal. With declining functional status will repeat TSH. DVT prophylaxis: Not indicated as patient is on Xarelto for history of pulmonaryembolism and has an IVC filter. Time spent in the patient's overall evaluation,decision-making process, review of diagnostic data, adjustment of management, discussion with other providers, nursing and ancillary staff involved in patient's care documentation, 50 minutes. Charges/Coding Visit Charges Inpatient E&M: 90079 Init Hosp L2 06/27/23 0637 <Electronically signed by Jason Arteaga MD> Cosigner Signature (if applicable): CC: Dr. Jason Arteaga MD; Dr. Bernardino Min MD~ Signed [facility] Work Phone: [phone]) 622-162210-27-2023 Miscellaneous Notes* Telephone Encounter - Usha Grant LPN - 06/25/2023 2:59 PM EDT Pt notified of Dr Frazier response. Pt voices understanding. Usha Grant LPN * Telephone Encounter - Domo Frazier DO - 06/25/2023 2:28 PM EDT I certainly agree with continuing to hold lenvatinib. I suspect side effects will continue to improve on a day by day basis. However agree with emergency room should she feel worse or feel as if she needs hydration. Domo Frazier DO * Telephone Encounter - Mahsa Mendez RN - 06/25/2023 1:20 PM EDT Pt here today for lab draw with RUBIO Max. Winter states that patient did not go to the ED as suggested the other evening. The pt has a friend that stopped by that is a nurse and felt that pt did not need to go to ED. Pt states she is trying to eat and drink more but food still does not taste good to her. Pt states she did have a small, loose BM Wednesday night. She takes Miralax but did not take it today. Pt states she is not uncomfortable and does not feel as if she needs to have a BM. Pt did stop taking the lenvatinib. Pt has had 3 falls within the past week. DIL thought she had an appt with Dr. Frazier today. Advised her that it was next Wednesday. Aware that Mason may return call to f/u. Pt also aware that if she continues to feel worse she should go to the ED as suggested earlier this week. Pt and DIL stated understanding. Please call RUBIO Max with any questions or updates. [phone] documented in this encounterTrinity Health System10-24-2023 Miscellaneous Notes* Telephone Encounter - Mason Quintero RN - 06/22/2023 4:03 PM EDT Spoke to daughter, addressed in a separate phone encounter. Mason Quintero RN * Telephone Encounter - Mason Quintero RN - 06/21/2023 4:23 PM EDT [facility] Care Coordination FOLLOW-UP NOTE Patient identified by name and date of . YES Spoke to patient Summary: (Reason for follow-up) Patient stated she is feeling a little bit better; she was happy palliative care visited her today for about 2 hours. Patient stated they suggested that she hydrate better and increase protein intake. Patient stated her appetite is poor, she has taste changes nothing taste good, and fatigue is 5/10. Patient stated she hasn't had a BM since last Wednesday. Palliative care recommended taking miralax, stool softener, and start MOM this evening. Patient denies fever, chills, N/V, or abdominal pain; she is passing gas. Patient feels since starting the lenvatinib she has had a poor quality of life. Patient is very active with synagogue, family, and friends. Patient had a big weekend planned this past weekend and she stated it didn't happen due to not feeling well. Patient was encouraged to follow palliative cares recommendations and aware this nurse will communicate her concerns with Dr. Frazier. Care Coordination Plan: Will follow up after speaking to Dr. Susy Quintero RN June 21, 2023 documented in this encounterTrinity Health System10-24-2023 Miscellaneous Notes* Telephone Encounter - Mason Quintero RN - 06/22/2023 2:27 PM EDT Called patient, there was no answer. Called Winter. Winter informed to have patient stop lenvatinib. Winter stated patient is very weak and she had 2 falls recently d/t weakness. Patient still has not had a BM since last Wednesday or Wednesday. Patient took MOM last night without relief. Winter also stated patients BP was 150/80 yesterday. Patients appetite is still poor and she has poor fluid intake. Due to the severity of weakness, daughter was advised to take patient to local ED for IVF. Daughter stated she will be visiting with patient this evening, have her stop her lenvatinib, and will most likely take patient to [facility] for IVF this evening. This nurse will check up on patient tomorrow. Mason Quintero RN * Telephone Encounter - Mason Quintero RN - 06/22/2023 11:47 AM EDT [facility] Care Coordination FOLLOW-UP NOTE Called daughter, there was no answer. A message was left informing her that this nurse spoke to Rosita yesterday and we received [facility] message. This nurse is planning on meeting with Dr. Frazier today to discuss message and conversation notes from yesterday. Call this nurse if she has any furtherquestions in the meantime. Care Coordination Plan: Will follow up after speaking to Dr. Susy Quintero RN June 22, 2023 * Telephone Encounter - Britni Gamble - 06/22/2023 8:52 AM EDT Winter called stating patient is not eating or drinking and is having extreme fatigue. She is askingif OV is needed. Care Coord went to . Please advise. documented in this encounterTrinity Health System10-20-2023 Miscellaneous Notes* Telephone Encounter - Mason Quintero RN - 06/18/2023 9:15 AM EDT ORAL ANTI-CANCER AGENTS FOLLOW-UP PHONE CALL/VISIT Patient identified by name and date of . YES Patient is on cycle 1, week 1, day 7 of lenvatinib for Endometrial Cancer. SYMPTOM ASSESSMENT See below Does the patient need interventions or same day appointment:No ADDITIONAL FOLLOW UP: The next outreach call is due on: TBD and was scheduled patient instructed to call with any questions or symptom concerns. The following lab tests are due: 06/25/23 CMP Verified patient is aware of next appointment in the cancer center: Yes. Verified patient verbalized how to correctly refill the oral agent prescription. Yes Does the patient have any financial difficulties affording this medication? No Patient verbalizes understanding of when to seek Medical Attention? YES Patient verbalizes understanding of after-hours and weekend phone number? YES Patient verbalized importance of medication compliance in taking the oral agent as prescribed. Patient instructed to call if unable to comply. Mason Quintero RN TOXICITY CHECK SYMPTOM ASSESSMENT The patient is on Keytruda Headache: No Visual Changes: No Dizziness: No Do you have any periods of confusion? No Mood changes: No Mouth or throat pain: No Appetite: decreased/poor, since forever. Taste changes: No Nausea: No Vomiting: No Heartburn: No. Weight gain/loss: No Episodes of palpitations/chest discomfort/pressure/pain No Shortness of breath: No Cough: No Diarrhea: after taking mag citrate on Wednesday Constipation: prior to Wednesday. Bladder/Urinary Changes: has UTI, diagnosed yesterday by urgent care. Starting on Cipro today. Pain: No=0 (pain 0 on a scale of 0-10). Fever: No Chills: No Cold sensitivity: No Numbness/weakness: No Edema: No Skin changes: No Itching: No Yellowing of skin or eyes: No Musculoskeletal/joint changes/issues No Bleeding issues: No Activity Level: Fair-poor. Patient is very active with friends and family. Do you need to take naps? Resting during the day Does the patient need interventions or same day appointment:No Reinforced CURRENT treatment education based on current and anticipated symptoms. Discussed port/line care and patient verbalizes understanding: Yes Patient instructed to contact office or after hours Hematology/Oncology fellow for: temperature ? 100.4; questions or concerns. Patient verbalized understanding of when to seek medical attention and after hours number protocol. Mason Quintero RN * Telephone Encounter - Mason Quintero RN - 06/17/2023 10:37 AM EDT Called patient for an update on constipation, there was no answer. A message was left requesting a call back from patient. Mason Quintero RN documented in this encounterTrinity Health System10-17-2023 Miscellaneous Notes* Telephone Encounter - Mason Quintero RN - 06/15/2023 4:46 PM EDT Spoke to patient. Patient has not had a BM yet. Patient is passing gas, denies fever, chills, N/V, or abdominal pain. Patient instructed to try mag citrate. Take 1/2 bottle, if no BM within 4 hours, take the other half. Discussed s/s of when to go to the ED. Patient stated understanding. Mason Quintero RN * Telephone Encounter - Mason Quintero RN - 06/14/2023 1:23 PM EDT This nurse can check on patient tomorrow and advise Mag citrate if no BM by tomorrow. Mason Quintero RN * Telephone Encounter - Domo Frazier DO - 06/14/2023 12:55 PM EDT Her recent PET scan did not demonstrate any metastatic disease in the abdomen so obstruction unlikely. Constipation was observed on the PET scan however. Agree with recommendations for managing the constipation. She may also need magnesium citrate if no BM by tomorrow. Domo Frazier DO * Telephone Encounter - Mason Quintero RN - 06/14/2023 10:52 AM EDT CYCLE 1/DAY 1 POST TREATMENT CALL Today's date: June 14, 2023 Treatment Regimen: Keytruda C1D1 Date: 06/11/2023 Called patient to follow-up on symptom management. Spoke with patient SYMPTOM ASSESSMENT Neuro: Headache today. 09/08 ache, took tylenol this AM which alleviated the pain. CV/Resp: None GI/: Appetite: a piece of toast today. Patient stated she ate fairly well over the weekend and ate at a synagogue lunch. Nausea and vomiting x 2 episodes last night. Constipation- last BM x 4 days ago. I feel gassy all over my body but not passing gas. Denies bloating or abdominal pain. Started drinking Orgain protein shakes on Wednesday. Integument: None Activity: Patient reported no changes in energy level, energy level fair Pain: No=0 (pain 0 on a scale of 0-10). Fever: Temperature was 99.2 F Wednesday night Chills: Yes on and off Wednesday/Wednesday. Patient started Keytruda on Wednesday and lenvatinib on Wednesday evening around 5 pm. [facility] Wednesday afternoon. Wednesday evening, patient developed chills on and off, andWednesday evening she had two episodes of emesis and an elevated temperature of 99.2 F. Patient deniescold symptoms or a cough. Patient stated she has constipation x 4 days and I feel gassy all over my body but she is not passing gas. Patient denies abdominal pain or bloating. Patient started orgain protein shakes on Wednesday and is wondering if the shakes are causing her symptoms. Patient will stop orgain shakes for now. Patient reported a mild headache this morning 09/08 aching pain; patient took tylenol and had pain relief. Patient had her COVID/RSV vaccine on 06/08 and felt fine afterwards. Patient has miralax at home. Patient was advised to start today for constipation. Patient has Zofran on hand at home and was advised to start if needed for nausea or to take 1 hour prior to lenvatinib to see if it alleviates nausea/vomiting symptoms. Patient had to go because someone was at her door. Patient stated she was having a luncheon today at her house and she has a friend coming to visit from out of state. Reviewed s/s of when she should call or go to ED for evaluation Any new referrals needed? No Reinforced CURRENT treatment education based on current and anticipated symptoms. Discussed port/line care and patient verbalizes understanding: Yes Patient instructed to contact office or after hours Hematology/Oncology fellow for: temperature ? 100.4; questions or concerns. Patient verbalized understanding of when to seek medical attention and after hours number protocol. Mason Quintero RN documented in this encounterTrinity Health System10-13-2023 NoteHNO ID: [id number] Author: Luz Lan RN Service: ? Author Type: Registered Nurse Type: Progress Notes Filed: 06/11/2023 12:09 PM Note Text: Patients son wanted to let us know his mom(the patient) has been without her Xarelto for a few day and wanted to make sure was ok to still get the Keytruda today. Spoke with pharmacy Xavier about above and he stated it would be ok to give keytruda pending labs todayUk [facility]10-13-2023 History of Present illness Narrative* Luz Lan RN - 06/11/2023 9:07 AM EDT Patients son wanted to let us know his mom(the patient) has been without her Xarelto for a few day and wanted to make sure was ok to still get the Keytruda today. Spoke with pharmacy Xavier about above and he stated it would be ok to give keytruda pending labs today documented in this encounterTrinity Health System10-13-2023 NoteHNO ID: [id number] Author: Pearl Castro RN Service: ? Author Type: Registered Nurse Type: Progress Notes Filed: 06/11/2023 9:16 AM Note Text: Patient is here for IVAD port flush/blood draw. IVAD is located in right upper chest. Site cleansed with Chloraprep IVAD accessed with a #20 gauge 3/4 non-coring Gripper needle Flush with 5cc's Normal Saline. Blood Return: Good. 10 cc's blood aspirated and discarded. Blood drawn for CBC, CMP, Gold top, and cortisol/TSH hep panel. Flushed with: 20 ml Normal Saline Non-coring needle left intact for further therapy. Opsite applied to puncture site. Site negative for redness, edema or tenderness. Patient tolerated procedure well. Pearl Castro RNUk Healthcare10-13-2023 History of Present illness Narrative* Pearl Castro RN - 06/11/2023 8:57 AM EDT Patient is here for IVAD port flush/blood draw. IVAD is located in right upper chest. Site cleansed with Chloraprep IVAD accessed with a #20 gauge 3/4 non-coring Gripper needle Flush with 5cc's Normal Saline. Blood Return: Good. 10 cc's blood aspirated and discarded. Blood drawn for CBC, CMP, Gold top, and cortisol/TSH hep panel. Flushed with: 20 ml Normal Saline Non-coring needle left intact for further therapy. Opsite applied to puncture site. Site negative for redness, edema or tenderness. Patient tolerated procedure well. Pearl Castro RN documented in this encounterTrinity Health System10-10-2023 NoteHNO ID: [id number] Author: Katt Medrano RN Service: ? Author Type: Registered Nurse Type: Progress Notes Filed: 06/10/2023 2:19 PM Note Text: [facility] received prescription for Lenvima from Dr. Frazier, prior authorization was approved with details listed below. Plan Name: [employer] reference number: [id number] Approval Dates: 05/09/2023 - 06/07/2026 Katt Medrano RN Addendum June 10, 2023 2:16 PM : Patient's medication is covered via their Medicare Part D [employer] retiree plan. With this plan their first copay is $40. Their copays will go down over a period of 4-6 months until they reach their maximum out of pocket at which point their copays will be $0 for the remainder of the year. Plan will reset in August 2023. Dusty Crane PharmD Clinical Pharmacist, Oncology [facility] P: ; F: Pool: P [facility] Pool #: [id number] [facility]10-09-2023 NoteHNO ID: [id number] Author: Katt Medrano RN Service: ? Author Type: Registered Nurse Type: Progress Notes Filed: 06/07/2023 4:58 PM Note Text: [facility] received prescription for Lenvima from Dr. Frazier, await clarification of Rx sig before a rior authorization can be submitted. Katt Medrano [facility]NU[facility]10-05-2023 History of Present illness Narrative* Ce Herbert - 06/03/2023 11:58 AM EDT [facility] received prescription(s) for Lenvima from Dr. Frazier's office. Benefits investigation was conducted, indicating that a prior authorization is required by patient's insurance plan with [employer]. Encounter will be updated once prior [facility] Ce Herbert CPhT [facility], Oncology P: / F: documented in this encounterTrinity Health System10-05-2023 NoteHNO ID: [id number] Author: Ce Herbert Service: ? Author Type: ? Type: Progress Notes Filed: 08/04/2023 2:20 PM Note Text: [facility] Discontinuation Assessment: Disease group: Oral Oncology/Hematology Medication: LENVIMA ORAL Discontinue reason: Other Per 07/26 Assessment: patient has decided to forego treatment at this time balancing the quality of life with the efficacy of the medication and side affects. Ce Herbert Addendum August 04, 2023 2:20 PM : Will make MD aware. Will sign off on future refills and follow up. No further follow up required from [facility]. Roselia Moncada, PharmD Clinical Pharmacist, Oncology [facility] P: , F: Pool: P [facility] Pool #: [id number] [facility]10-05-2023 NoteHNO ID: [id number] Author: Ce Herbert Service: ? Author Type: ? Type: Progress Notes Filed: 06/03/2023 12:00 PM Note Text: [facility] received prescription(s) for Lenvima from Dr. Frazier's office. Benefits investigation was conducted, indicating that a prior authorization is required by patient's insurance plan with [employer]. Encounter will be updated once prior authorization has been submitted by [facility]. Ce Herbert CPhT [facility], Oncology P: / [facility] Note HNO ID: [id number] Author: Dusty Crane [facility] Service: ? Author Type: Pharmacist Type: Progress Notes Filed: 06/10/2023 4:52 PM Note Text: [facility] received prescription for Lenvima from Dr. Frazier, prior authorization was approved with details listed below. Plan Name: [employer] [place] reference number: [id number] Approval Dates: 05/09/2023 - 06/07/2026 Pt's copay is $40. Shipment has been arranged, and pt will receive medication(s) on 06/12/23. Pt has been instructed to follow-up with clinic to confirm start date. A full drug interaction report was conducted, and three drug interactions were identified: -Category D interaction with ondansetron d/t risk for QTc prolongation (IV > PO). Last ECG completed 11/06/20, Qtc 419ms. -Category C interactions with mirtazapine and sertraline d/t risk for QTc prolongation (IV > PO). I reviewed with Rosita appropriate dose and dosing frequency, administration directions (Take 2 capsules (20 mg) by mouth once daily), potential side effects, ability to self-administer and proper storage and handling requirements. S/he expressed understanding of the information we provided today, and received our contact information for the pharmacy if s/he had any other questions. Dr. Frazier, Please consider obtaining baseline TSH and UA per Jennifer's PI. Additionally, please consider completing baseline ECG if clinically appropriate, as patient is on several Qtc prolonging medications and last ECG was completed in 2020. Please consider Hepatitis B screening if appropriate as recommended now per ASCO in patients anticipating systemic anticancer therapy. Thanks! PAST MEDICAL HISTORY Diagnosis Date Cataracts, bilateral COAG (chronic open-angle glaucoma) CRVO (central retinal vein occlusion) Disorder of bone and cartilage, unspecified Multiple sclerosis (HCC) 2001 remission currently Pseudophakia, both eyes Pyelonephritis, unspecified 01/2010 Pyelonephritis Uterine cancer (HCC) 08/08/2014 ALLERGIES Allergen Reactions Codeine hives Contrast Dye [Iodin* Diarrhea Diarrhea after oral contrast. Erythromycin GI Upset Methylprednisolone Hives IV Sulfa (Sulfonamide * hives Problem List Noted Noted By Resolved Resolved By Uterine cancer (HCC) 04/30/2023 Malathi Roberts MD No Severe malnutrition (HCC) 03/02/2023 Joseluis Perez MD No Optic atrophy, right eye 05/01/2022 Peter Soto MD No Microscopic hematuria 03/23/2022 Frank Gross MD No Vision loss of right eye 11/04/2021 Peter Soto MD No Intracranial aneurysm 11/04/2021 Peter Soto MD No Primary open angle glaucoma (POAG) of right eye, severe stage 11/04/2021 Peter Soto MD No Primary open angle glaucoma (POAG) of left eye, moderate stage 08/18/2021 Peter Soto MD No S/P eye surgery 11/26/2020 Peter Soto MD No Chronic deep vein thrombosis (DVT) of left lower extremity ([facility]) 04/22/2020 Edi Pope No H/O central retinal vein occlusion 01/23/2020 Peter Soto MD No Keratitis, superficial, punctate, bilateral 01/23/2020 Peter Soto MD No Stable central retinal vein occlusion of right eye 02/15/2019 Peter Soto MD No Elevated cancer antigen 125 (CA-125) 10/18/2018 Henry Donovan RN No Sensorineural hearing loss, bilateral 06/28/2018 Tamiko Garcia, SADI No Screening for hematuria or proteinuria 06/23/2018 Henry Donovan RN No Central retinal vein occlusion with macular edema of right eye 06/23/2017 Estela Maldonado MD No Primary open angle glaucoma (POAG) of both eyes, moderate stage 05/10/2017 Peter Soto MD No Observation for suspected malignant neoplasm 03/23/2017 Henry Donovan, MONTSE No Antineoplastic chemotherapy induced anemia 03/11/2017 Henry Donovan RN No Clinically significant macular edema 03/01/2017 Peter Soto MD No Disorder of magnesium metabolism 12/03/2016 Henry Donovan RN No 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 12/03/2016 Henry Donovan RN No Visual field loss 10/01/2016 Peter Soto MD No Optic cupping of both eyes 10/01/2016 Peter Soto MD No Nasal step visual field defect of right eye 08/05/2015 Shashank Lott, OD No CRVO (central retinal vein occlusion) 08/05/2015 Shashank Lott, OD No Pseudophakia of both eyes 08/05/2015 Shashank Lott, OD No S/P laser cataract surgery 11/22/2014 Kellie Sharp, COA No Regular astigmatism - Both Eyes 11/08/2014 Peter Soto MD No History of uterine cancer 08/08/2014 Tatyana Ku MD No Overview Signed 10/04/2014 9:57 AM by Skylar Ackerman Cnp 09/26/14: JAMES CANTRELL Dr.. Neg lymph nodes. No further management. 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 Author Type: Pharmacist Type: Progress Notes Filed: 06/10/2023 4:43 PM Note Text: [facility] received prescription for Lenvima from Dr. Frazier, prior authorization was approved with details listed below. Plan Name: [employer] reference number: [id number] Approval Dates: 05/09/2023 - 06/07/2026 Pt's copay is $40. Shipment has been arranged, and pt will receive medication(s) on 06/12/23. Pt has been instructed to follow-up with clinic to confirm start date. A full drug interaction report was conducted, and three drug interactions were identified: -Category D interaction with ondansetron d/t risk for QTc prolongation (IV > PO). Last ECG is from 2020 - recommend repeat. Qtc 419 ms. -Category C interactions with mirtazapine and sertraline d/t risk for QTc prolongation (IV > PO). I reviewed with Rosita appropriate dose and dosing frequency, administration directions (Take 2 capsules (20 mg) by mouth once daily), potential side effects, ability to self-administer and proper storage and handling requirements. S/he expressed understanding of the information we provided today, and received our contact information for the pharmacy if s/he had any other questions. Dr. Frazier, Please consider obtaining baseline TSH and UA per Jennifer's PI. Additionally, patient is on several Qtc Please consider Hepatitis B screening if appropriate as recommended now per [facility] in patients anticipating systemic anticancer therapy. Thanks! PAST MEDICAL HISTORY Diagnosis Date Cataracts, bilateral COAG (chronic open-angle glaucoma) CRVO (central retinal vein occlusion) Disorder of bone and cartilage, unspecified Multiple sclerosis (HCC) 2001 remission currently Pseudophakia, both eyes Pyelonephritis, unspecified 01/2010 Pyelonephritis Uterine cancer (HCC) 08/08/2014 ALLERGIES Allergen Reactions Codeine hives Contrast Dye [Iodin* Diarrhea Diarrhea after oral contrast. Erythromycin GI Upset Methylprednisolone Hives IV Sulfa (Sulfonamide * hives Problem List Noted Noted By Resolved Resolved By Uterine cancer (HCC) 04/30/2023 Malathi Roberts MD No Severe malnutrition ([facility]) 03/02/2023 Joseluis Perez MD No Optic atrophy, right eye 05/01/2022 Peter Soto MD No Microscopic hematuria 03/23/2022 Frank Gross MD No Vision loss of right eye 11/04/2021 Peter Soto MD No Intracranial aneurysm 11/04/2021 Peter Soto MD No Primary open angle glaucoma (POAG) of right eye, severe stage 11/04/2021 Peter Soto MD No Primary open angle glaucoma (POAG) of left eye, moderate stage 08/18/2021 Peter Soto MD No S/P eye surgery 11/26/2020 Peter Soto MD No Chronic deep vein thrombosis (DVT) of left lower extremity (HCC) 04/22/2020 Edi Pope No H/O central retinal vein occlusion 01/23/2020 Peter Soto MD No Keratitis, superficial, punctate, bilateral 01/23/2020 Peter Soto MD No Stable central retinal vein occlusion of right eye 02/15/2019 Peter Soto MD No Elevated cancer antigen 125 (CA-125) 10/18/2018 Henry Donovan RN No Sensorineural hearing loss, bilateral 06/28/2018 Tamiko Garcia, AUD No Screening for hematuria or proteinuria 06/23/2018 Henry Donovan RN No Central retinal vein occlusion with macular edema of right eye 06/23/2017 Estela Maldonado MD No Primary open angle glaucoma (POAG) of both eyes, moderate stage 05/10/2017 Peter Soto MD No Observation for suspected malignant neoplasm 03/23/2017 Henry Donovan RN No Antineoplastic chemotherapy induced anemia 03/11/2017 Henry Donovan RN No Clinically significant macular edema 03/01/2017 Peter Soto MD No Disorder of magnesium metabolism 12/03/2016 Henry Donovan RN No 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 12/03/2016 Henry Donovan RN No Visual field loss 10/01/2016 Peter Soto MD No Optic cupping of both eyes 10/01/2016 Peter Soto MD No Nasal step visual field defect of right eye 08/05/2015 Shashank Lott, OD No CRVO (central retinal vein occlusion) 08/05/2015 Shashank Lott, OD No Pseudophakia of both eyes 08/05/2015 Shashank Lott, OD No S/P laser cataract surgery 11/22/2014 Kellie Sharp, COA No Regular astigmatism - Both Eyes 11/08/2014 Peter Soto MD No History of uterine cancer 08/08/2014 Tatyana Ku MD No Overview Signed 10/04/2014 9:57 AM by Skylar Ackerman Cnp 09/26/14: ÓSCAR, BSO w Dr. Freeman. Neg lymph nodes. No further management. 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 Domo Frazier DO * Telephone Encounter - Mason Quintero RN - 06/03/2023 10:23 AM EDT I do not see any prescriptions for lenvatinib in patients current medication list or in her medication history. This medication needs sent to [facility]. Thank you. Mason Quintero RN [facility]10-[facility]-2023 NoteHNO ID: [id number] Author: Domo Frazier DO Service: ? Author Type: Physician Type: Progress Notes Filed: 06/02/2023 7:15 PM Note Text: Patient referred by Dr. Roberts for ongoing management of . The impression and plan will be communicated by way of the shared electronic record or faxed under separate cover letter. HPI: The patient is a 77-year-old female with a past medical history significant for chronic open-angle glaucoma, central retinal vein occlusion, multiple sclerosis in remission and endometrial cancer. Per Dr. Roberts's most recent office visit note updated and edited today by me as necessary: Treatment History: 1. Initital presentation: Saw Skylar Ackerman CNP for complaints of PMB, 5 day history. On 07/25/2014 had a EMB that showed Well differentiated endometrioid adenocarcinoma, FIGO grade 1. HNPCC screening negative 2. 09/12/2014 Surgery: Single-port total laparoscopic hysterectomy with bilateral salpingo-oophorectomy, bilateral pelvic lymphadenectomy, bilateral periaortic lymphadenectomy and cystoscopy 3.) 10/03/14 Consult to rad onc: RT deferred 4.) 10/26/2016: Lymphatic recurrence in left neck right retrocaval, bilateral pelvis 5.) 12/03/2016: Lymph node FNA: Positive for malignant cells. Adenocarcinoma 6.) 12/10/2016-04/01/2017: Chemo - Carbo/Taxol x 6 cycles 7.) 05/2017: Radiation - RT to left supraclavicular region, retroperitoneal/pelvic node region 8.) 02/2018: Right retrorenal LN met not amenable to SRS or removal. Pt declined cytotoxic therapy ER 50%, NV negative 9). 03/31/2018 - 03/16/2019: Letrozole started. Everolimus added 06/23/2018 due to progression. Treatment discontinued 03/16/2019 due to disease progression (confirmed 03/06/2019). Patient elected treatment holiday. 10). 08/2018: PE, IVC filter placement 11). 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 01/01/2022: [facility]. Recommended RT (vs systemic chemotherapy) for management of hypermetabolic aortocaval lymphadenopathy. Patient would prefer treatment in [place], [place]. 13). 02/24/2022 - 03/03/2022: Radiation Therapy (SBRT) - The Aortocaval LNs PTV received a total dose of 2400 cGy in [address] Youngblood 14) 09/03/2022 - 09/07/2022: Hospital admission: TCU resident for debility, RY, dehydration, UTI, extensive RLE DVT. 09/07/2022 Admitted to [facility] for heparin drip secondary to DVT 09/08/2022-09/10/2022: Surgical management w/ Dr. Schaefer for extensive RLE DVT. Patient underwent thrombectomy, balloon angioplasty of right lower extremity DVT and IVC venogram, percutaneous thrombectomy IVC, bilateral common and external arteries angioplasty, IVUS. Patient required admission and rehabilitation. 15) 10/2022: PET scan with few new retrocrural lymph nodes suspicious for metastases. 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 16) 02/26/2023: PET/CT shows new hypermetabolic left axillary and left subpectoral lymphadenopathy and progressing posterior mediastinal/retrocrural lymphadenopathy c/w metastatic disease. 17) 03/12/2023, 03/22/2023: Chemotherapy w/ Doxil 40 D1 - Q28 was unsuccessful due to reactions. C1 infusion on 03/12 was stopped after 10ml of Doxil was infused when patient became flushed, BP elevated 170/110 and chest tightness. BP returned normal, but chest tightness continued so pt was transferred to [facility]. Patient had another reaction on 03/23 during inpatient Doxil re-challenge, so treatment was cancelled. 18) 03/31/2023: Second opinion and transfer of care to [facility] primary. Elected to have treatment holiday with plan for follow up scan end of 04/2023 19) 05/25/2023: PET/CT with worsening metastatic disease: Chest with enlarged left subpectoral and axillary lymph nodes with central necrosis, worsened paraesophageal and retrocrural adenopathy. New hypermetabolic soft tissue thickening involving the right paraspinal region of T10. No new uptake in abdomen/pelvis and no other new sites of disease. She offers no complaints today. No abdominal pain, bloating or distention. Bowels have been moving regularly. No nausea or vomiting. PAST MEDICAL HISTORY Diagnosis Date Cataracts, bilateral COAG (chronic open-angle glaucoma) CRVO (central retinal vein occlusion) Disorder of bone and cartilage, unspecified Multiple sclerosis (HCC) 2001 remission currently Pseudophakia, both eyes Pyelonephritis, unspecified 01/2010 Pyelonephritis Uterine cancer (HCC) 08/08/2014 PAST SURGICAL HISTORY Procedure Laterality Date DELIVERY ONLY , low cervical X3 COLONOSCOPY 05/18/2016 Dr. Gbibs. no bx taken COLONOSCOPY, GI 1998, 2009 EYE SURGERY PROCEDURE Left 04/11/2021 Xen Gel stent EYLEA (AFLIBERCEPT) 2MG INTRAVITREAL INJECTION OD (RIGHT EYE) Ri (more content not included)...[facility]09-21-2023 History of Present illness Narrative* Quincy Lima, RT(R) - 05/20/2023 12:00 PM EDT RADIOLOGY SERVICE PROGRESS NOTE SERVICE DATE: 05/20/2023 SERVICE TIME: 12:39 PM PATIENT IDENTITY VERIFICATION COMPLETED USING TWO (2) STANDARD IDENTIFIERS: Name and Date of confirmed by patient verbally FALL SCREENING: Has the patient had 2 falls in the last year or 1 fall with injury or currently using an Ambulatory Assistive Device (Walker, Cane, Wheelchair, Crutches, etc.)? No PATIENT GENDER DATA: .female ALLERGIES: Reviewed and unchanged MEDICATIONS REVIEWED: Yes PATIENT RELEVANT IMPLANT DATA REVIEWED: Not Applicable CREATININE: Creatinine Date Value Ref Range Status 03/19/2023 0.98 (H) 0.58 - 0.96 mg/dL Final 03/04/2023 0.92 0.58 - 0.96 mg/dL Final 08/28/2022 1.69 (H) 0.58 - 0.96 mg/dL Final Estimated Glomerular Filtration Rate Date Value Ref Range Status 03/19/2023 60 >=60 mL/min/1.73m Final Comment: Estimated Glomerular Filtration Rate (eGFR) is calculated using the 2020 CKD-EPI creatinine equation. This equation utilizes serum creatinine, sex, and age as parameters. The creatinine assay has traceable calibration to isotope dilution- mass spectrometry. Refer to KDIGO guidelines for clinical interpretation. In patients with unstable renal function, e.g. those with acute kidney injury, the eGFRmay not accurately reflect actual GFR. eGFR- Date Value Ref Range Status 10/22/2021 >60 Final P.O.C.T. RESULTS: POC done: Yes, See Lab Tab May 20, [address] PERFORMED: No IV SITE: Ambulatory: A peripheral IV was started in the Right antecubital site with a Angio cath: 24 gauge. POST EXAM PIV STATUS: Discontinued PROCEDURE TYPE: NM INJECT: PET/CT BODY SCAN. 8.7 mCi F18 FDG. No other medications given.. ADMINISTRATION TIME: 123- PATIENT DISCHARGED TO: Ambulatory patient, left IN department area. A Diagnostic radioactive procedure has taken place, with no further precautions necessary other than routine body substance precautions. More information regarding radiation safety can be found usingthis link: [email or web address] SIGNATURE: RT Beck(R) PATIENT NAME: Rosita Kennedy DATE: May 20, 2023 TIME: 12:39 PM PAGER/CONTACT #: documented in this encounterTr[facility] System09-01-2023 History of Present illness Narrative* Malathi Roberts MD - 04/30/2023 1:33 PM EDT GYNECOLOGIC ONCOLOGY HISTORY AND PHYSICAL EXAMINATION SERVICE DATE: 03/31/2023 SERVICE TIME: 8:34 AM PRIMARY CARE PHYSICIAN: Bernardino Min Chi CHIEF COMPLAINT/HISTORY OF PRESENT ILLNESS/ROS: CC: recurrent endometrial cancer, second opinion Referring Provider: self HPI: Here with her daughter in law for problem visit. Having right sided back and shoulder pain. Has been present for about the last month. Feels sharp, both worsened by certain positions (back lying on right side, shoulder with raising right arm). Pain is moderately improved with tylenol but patient reports using sparingly out of dislike of multiple medications. Feels she has been more fatigued lately, but appetite has been stable. Denies vaginal bleeding or discharge. Denies any other bothersome symptoms at this time. The history is provided by the patient and a relative. No continuous churn buttermaker was used. ROS: Review of Systems Constitutional: Negative for activity change, diaphoresis, fever and unexpected weight change. HENT: Negative for ear pain, hearing loss and mouth sores. Eyes: Negative for pain and visual disturbance. Respiratory: Negative for cough, chest tightness and shortness of breath. Cardiovascular: Negative for chest pain and palpitations. Gastrointestinal: Negative for abdominal pain, constipation, diarrhea, nausea and vomiting. Endocrine: Negative for cold intolerance and heat intolerance. Genitourinary: Negative for dysuria, frequency, hematuria, pelvic pain, urgency, vaginal bleeding, vaginal discharge and vaginal pain. Musculoskeletal: Positive for back pain. Negative for arthralgias, joint swelling and myalgias. Skin: Negative for rash and wound. Neurological: Negative for dizziness, syncope, light-headedness and headaches. Psychiatric/Behavioral: Negative for agitation. The patient is not nervous/anxious. Treatment History: 1. Initital presentation: Saw Skylar Ackerman CNP for complaints of PMB, 5 day history. On 07/25/2014 had a EMB that showed Well differentiated endometrioid adenocarcinoma, FIGO grade 1. HNPCC screening negative 2. 09/12/2014 Surgery: Single-port total laparoscopic hysterectomy with bilateral salpingo-oophorectomy, bilateral pelvic lymphadenectomy, bilateral periaortic lymphadenectomy and cystoscopy 3.) 10/03/14 Consult to rad onc: RT deferred 4.) 10/26/2016: Lymphatic recurrence in left neck right retrocaval, bilateral pelvis 5.) 12/03/2016: Lymph node FNA: Positive for malignant cells. Adenocarcinoma 6.) 12/10/2016-04/01/2017: Chemo - Carbo/Taxol x 6 cycles 7.) 05/2017: Radiation - RT to left supraclavicular region, retroperitoneal/pelvic node region 8.) 02/2018: Right retrorenal LN met not amenable to SRS or removal. Pt declined cytotoxic therapy ER 50%, NV negative 9). 03/31/2018 - 03/16/2019: Letrozole started. Everolimus added 06/23/2018 due to progression. Treatment discontinued 03/16/2019 due to disease progression (confirmed 03/06/2019). Patient elected treatment holiday. 10). 08/2018: PE, IVC filter placement 11). 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 01/01/2022: [facility]. Recommended RT (vs systemic chemotherapy) for management of hypermetabolic aortocaval lymphadenopathy. Patient would prefer treatment in [place], [place]. 13). 02/24/2022 - 03/03/2022: Radiation Therapy (SBRT) - The Aortocaval LNs PTV received a total doseof 2400 cGy in [address] Youngblood 14) 09/03/2022 - 09/07/2022: Hospital admission: TCU resident for debility, RY, dehydration, UTI, extensive RLE DVT. 09/07/2022 Admitted to [facility] for heparin drip secondary to DVT 09/08/2022-09/10/2022: Surgical management w/ Dr. Schaefer for extensive RLE DVT. Patient underwent thrombectomy, balloon angioplasty of right lower extremity DVT and IVC venogram, percutaneous thrombectomy IVC, bilateral common and external arteries angioplasty, IVUS. Patient required admission and rehabilitation. 15) 10/2022: PET scan with few new retrocrural lymph nodes suspicious for metastases. 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 16) 02/26/2023: PET/CT shows new hypermetabolic left axillary and left subpectoral lymphadenopathy and progressing posterior mediastinal/retrocrural lymphadenopathy c/w metastatic disease. 17) 03/12/2023, 03/22/2023: Chemotherapy w/ Doxil 40 D1 - Q28 was unsuccessful due to reactions. C1 infusion on 03/12 was stopped after 10ml of Doxil was infused when patient became flushed, BP [id number]/110 and chest tightness. BP returned normal, but chest tightness continued so pt was transferred to [facility]. Patient had another reaction on 03/23 during inpatient Doxil re- challenge, so treatment was cancelled. 18) 03/31/2023: Second opinion and transfer of care to [facility] primary. 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 Gibbs. 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 [employer]ou[employer] History LMP: Postmenopausal Age at Menarche: Age at First : Age at Menopause: [employer] History Comments: Sexual Activity: Not Currently; No partner data on record Contraception: Tubal Ligation FAMILY HISTORY Problem Relation Age of Onset Breast Cancer Sister Glaucoma Sister Heart Father mi Diabetes Father Hypertension Mother Alzheimer's Disease Mother Macular Degen Mother Glaucoma Mother Macular Degen Maternal Grandmother Social History Socioeconomic History Marital status: Spouse name: Ramesh Number of children: 3 Years of education: 16+ 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 Employer: [employer] Tobacco Use Smoking status: Never Smokeless tobacco: Never Vaping Use Vaping Use: Never used Substance and Sexual Activity Alcohol use: Yes Comment: 1 drink per month not used in 1 year Drug use: No Sexual activity: Not Currently control/protection: Tubal Ligation Social Determinants of Health Financial Resource Strain: Low Risk (01/30/2022) Overall Financial Resource Strain (CARDIA) Difficulty of Paying Living Expenses: Not hard at all Food Insecurity: No Food Insecurity (01/30/2022) Hunger Vital Sign Worried About Running Out of Food in the Last Year: Never true Ran Out of Food in the Last Year: Never true Transportation Needs: Unmet Transportation Needs (01/30/2022) PRAPARE - Transportation Lack of Transportation (Medical): No Lack of Transportation (Non-Medical): Yes Physical Activity: Inactive (01/30/2022) Exercise Vital Sign Days of Exercise per Week: 0 days Minutes of Exercise per Session: 0 min Stress: No Stress Concern Present (01/30/2022) [place] [facility] [employer] [facility] - Occupational Stress Questionnaire Feeling of Stress : Only a little Social Connections: Moderately Integrated (01/30/2022) Social Connection and Isolation Panel [NHANES] Frequency of Communication with Friends and Family: More than three times a week Frequency of Social Gatherings with Friends and Family: Three times a week Attends Yazidism Services: More than 4 times per year Active Member of Clubs or Organizations: Yes Attends Club or Organization Meetings: More than 4 times per year Marital Status: Housing Stability: Low Risk (01/30/2022) Housing Stability Vital Sign Unable to Pay for Housing in the Last Year: No Number of Places Lived in the Last Year: 1 Unstable Housing in the Last Year: No MEDICATIONS / ALLERGIES: Current Outpatient Medications Medication Sig levothyroxine (LEVOXYL) 25 mcg tablet Take 1 tablet by mouth once daily. Take on empty stomach. ForThyroid mirtazapine (REMERON) 15 mg tablet Take 1 tablet by mouth daily at bedtime. meloxicam (MOBIC) 15 mg tablet Take 1 tablet by mouth once daily. With food. atorvastatin (LIPITOR) 40 mg tablet Take 1 tablet by mouth daily at bedtime. For cholesterol. Methenamine Hippurate (HIPREX) 1 gram tablet Take 1 tablet by mouth twice daily with meals. furosemide (LASIX) 20 mg tablet Take one tablet every day but if looses more than 10 pounds in a week then she needs to hold it. buPROPion (WELLBUTRIN) 75 mg tablet Take it once a day in the morning. sertraline (ZOLOFT) 25 mg tablet Take 1 tablet by mouth once daily. sertraline (ZOLOFT) 100 mg tablet Take 1 tablet by mouth once daily. To take along with 25 mgs to make a total of 125 mgs travoprost (TRAVATAN Z) 0.004 % ophthalmic drops Use 1 Drop in both eyes daily at bedtime. brimonidine-timolol (COMBIGAN) 0.2-0.5 % ophthalmic solution Use 1 Drop in the right eye twice daily. Use at 9 AM and 3 PM phenazopyridine (PYRIDIUM, GERIDIUM) 200 mg tablet Take 1 tablet by mouth three times daily as needed. aspirin, enteric coated (ECOTRIN LOW STRENGTH) 81 mg EC tablet Take 1 tablet by mouth once daily. calcium carb/vitamin D3/vit K1 (VIACTIV ORAL) Take 1 tablet by mouth once daily. L GASSERI/B BIFIDUM/B LONGUM ([facility] ORAL) Take by mouth. CHOLECALCIFEROL, VITAMIN D3, (VITAMIN D3 ORAL) Take by mouth once daily. LUTEIN ORAL Take by mouth. MULTIVITAMIN TABLET PO Take one(1) tablet daily. ondansetron (ZOFRAN) 8 mg tablet Take 1 tablet by mouth every 6 hours as needed for nausea/vomiting. (Patient not taking: Reported on 04/30/2023) ondansetron orally disintegrating (ZOFRAN ODT) 4 mg disintegrating tablet Take 1 tablet by mouth every 6 hours as needed for nausea/vomiting. (Patient not taking: Reported on 04/30/2023) Current Facility-Administered Medications Medication Dose Route Frequency perflutren lipid microspheres 1.3 mL in NaCl (PF) 0.9% 10 mL injection (DEFINITY) INTRAVENOUS DIRECTED PRN sodium chloride 0.9 % (flush) 10 mL (BD POSIFLUSH) 10 mL INTRAVENOUS DIRECTED PRN ALLERGIES ALLERGIES Allergen Reactions Codeine hives Contrast Dye [Iodin* Diarrhea Diarrhea after oral contrast. Erythromycin GI Upset Methylprednisolone Hives IV Sulfa (Sulfonamide * hives PHYSICAL EXAM: BP 128/75 (BP Site: Left Arm, BP Position: Sitting, BP Cuff Size: Regular Adult) Pulse 114 Temp36.6 C (97.8 F) (Oral) Ht 152.4 cm (5') Wt 49.2 kg (108 lb 6.4 oz) SpO2 97% BMI 21.17 kg/m Physical Exam Constitutional: Appearance: Normal appearance. HENT: Head: Normocephalic. Nose: Nose normal. Mouth/Throat: Mouth: Mucous membranes are moist. Eyes: Conjunctiva/sclera: Conjunctivae normal. Cardiovascular: Rate and Rhythm: Normal rate and regular rhythm. Pulses: Normal pulses. Heart sounds: Normal heart sounds. Pulmonary: Breath sounds: Normal breath sounds. Abdominal: General: Abdomen is flat. Palpations: Abdomen is soft. Tenderness: There is no abdominal tenderness. There is no guarding or rebound. Genitourinary: Comments: Deferred Musculoskeletal: General: Normal range of motion. Comments: No gross deformity of R shoulder joint. Point tenderness along the scapula. Back pain is also reproducible with palpation over muscle body, not spine. Skin: General: Skin is warm and dry. Neurological: General: No focal deficit present. Mental Status: She is alert and oriented to person, place, and time. LABS: None new available at this time. IMAGING: None new available at this time. ASSESSMENT/PLAN: Rosita Kennedy is a 77 year old with recurrent endometrial cancer. Comorbidities include: Bilateral cataracts, open angle glaucoma, MS (remission without maintenance medications), RLE DVT requiring angioplasty ECOG Performance status: 1-2 # Recurrent endometrioid endometrial cancer, grade 2: - Stage IA, no LVSI, proficient MMR (molecular testing 2017) with derek recurrence in L neck, treated with 6C carbo/taxol, RT to suprcalvicula and aortic/pelvic nodes, s/p letrozole and everolimus with nearly 2 year profression free interval, additional RT to aortocaval nodes, PET with additional nodes and now new axillary nodes, s/p allergic reaction to doxil and unsuccessful rechallenge. - symptoms uncommon for new progression, keep scheduled PET for April and follow up visit to review. # Back pain: - Likely musculo-skeletal in nature, continue to use tylenol and avoid positions that exacerbate, if continues to be bothersome for another couple of weeks will undertake focused imaging assessment. # Shoulder pain: - Likely musculo-skeletal in nature, continue to use tylenol and avoid positions that exacerbate, if continues to be bothersome or limit range of motion after rest for another couple of weeks will undertake focused imaging assessment. I spent a total of 30 minutes on the date of the service which included preparing to see the patient, [id number] patient care, completing clinical documentation, obtaining and/or reviewing separately obtained history, performing a medically appropriate examination, and counseling and educating the patient/family/caregiver. Malathi Roberts MD, MS Gynecologic Oncologist documented in this encounterTrinity Health System08-07-2023 Miscellaneous Notes* Telephone Encounter - Henry Donovan RN - 04/05/2023 8:51 AM EDT Patients sonRivera called stating that they had their second opinion with Dr Roberts and have decided to transfer care to Dr Roberts. Location more convenient. Will update team. documented in this encounterTrinity Health System08-02-2023 History of Present illness Narrative* Malathi Roberts MD - 03/31/2023 10:00 AM EDT GYNECOLOGIC ONCOLOGY HISTORY AND PHYSICAL EXAMINATION SERVICE DATE: 03/31/2023 SERVICE TIME: 8:34 AM PRIMARY CARE PHYSICIAN: Bernardino Min Chi CHIEF COMPLAINT/HISTORY OF PRESENT ILLNESS/ROS: CC: recurrent endometrial cancer, second opinion Referring Provider: self HPI: Here with her son for second opinion. She denies any bothersome symptoms at this time, and reports feeling well but tired and wary of additional therapy after her allergic reactions to Doxil. The history is provided by the patient and a relative. No continuous churn buttermaker was used. ROS: Review of Systems Constitutional: Negative for activity change, diaphoresis, fever and unexpected weight change. HENT: Negative for ear pain, hearing loss and mouth sores. Eyes: Negative for pain and visual disturbance. Respiratory: Negative for cough, chest tightness and shortness of breath. Cardiovascular: Negative for chest pain and palpitations. Gastrointestinal: Negative for abdominal pain, constipation, diarrhea, nausea and vomiting. Endocrine: Negative for cold intolerance and heat intolerance. Genitourinary: Negative for dysuria, frequency, hematuria, pelvic pain, urgency, vaginal bleeding, vaginal discharge and vaginal pain. Musculoskeletal: Negative for arthralgias and myalgias. Skin: Negative for rash and wound. Neurological: Negative for dizziness, syncope, light-headedness and headaches. Psychiatric/Behavioral: Negative for agitation. The patient is not nervous/anxious. Treatment History: 1. Initital presentation: Saw Skylar Ackerman CNP for complaints of PMB, 5 day history. On 07/25/2014 had a EMB that showed Well differentiated endometrioid adenocarcinoma, FIGO grade 1. HNPCC screening negative 2. 09/12/2014 Surgery: Single-port total laparoscopic hysterectomy with bilateral salpingo-oophorectomy, bilateral pelvic lymphadenectomy, bilateral periaortic lymphadenectomy and cystoscopy 3.) 10/03/14 Consult to rad onc: RT deferred 4.) 10/26/2016: Lymphatic recurrence in left neck right retrocaval, bilateral pelvis 5.) 12/03/2016: Lymph node FNA: Positive for malignant cells. Adenocarcinoma 6.) 12/10/2016-04/01/2017: Chemo - Carbo/Taxol x 6 cycles 7.) 05/2017: Radiation - RT to left supraclavicular region, retroperitoneal/pelvic node region 8.) 02/2018: Right retrorenal LN met not amenable to SRS or removal. Pt declined cytotoxic therapy ER 50%, NV negative 9). 03/31/2018 - 03/16/2019: Letrozole started. Everolimus added 06/23/2018 due to progression. Treatment discontinued 03/16/2019 due to disease progression (confirmed 03/06/2019). Patient elected treatment holiday. 10). 08/2018: PE, IVC filter placement 11). 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 01/01/2022: [facility]. Recommended RT (vs systemic chemotherapy) for management of hypermetabolic aortocaval lymphadenopathy. Patient would prefer treatment in [place], [place]. 13). 02/24/2022 - 03/03/2022: Radiation Therapy (SBRT) - The Aortocaval LNs PTV received a total doseof 2400 cGy in [address] Youngblood 14) 09/03/2022 - 09/07/2022: Hospital admission: TCU resident for debility, RY, dehydration, UTI, extensive RLE DVT. 09/07/2022 Admitted to [facility] for heparin drip secondary to DVT 09/08/2022-09/10/2022: Surgical management w/ Dr. Schaefer for extensive RLE DVT. Patient underwent thrombectomy, balloon angioplasty of right lower extremity DVT and IVC venogram, percutaneous thrombectomy IVC, bilateral common and external arteries angioplasty, IVUS. Patient required admission and rehabilitation. 15) 10/2022: PET scan with few new retrocrural lymph nodes suspicious for metastases. 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 16) 02/26/2023: PET/CT shows new hypermetabolic left axillary and left subpectoral lymphadenopathy and progressing posterior mediastinal/retrocrural lymphadenopathy c/w metastatic disease. 17) 03/12/2023, 03/22/2023: Chemotherapy w/ Doxil 40 D1 - Q28 was unsuccessful due to reactions. C1 infusion on 03/12 was stopped after 10ml of Doxil was infused when patient became flushed, BP [id number] and chest tightness. BP returned normal, but chest tightness continued so pt was transferred to [facility]. Patient had another reaction on 03/23 during inpatient Doxil re- challenge, so treatment was cancelled. 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 PAST SURGICAL HISTORY Procedure Laterality Date DELIVERY ONLY , low cervical X3 COLONOSCOPY 05/18/2016 Dr. Gibbs. 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 [employer] Labourer History LMP: Postmenopausal Age at Menarche: Age at First : Age at Menopause: [employer] Labourer History Comments: Sexual Activity: Not Currently; No partner data on record Contraception: Tubal Ligation FAMILY HISTORY Problem Relation Age of Onset Breast Cancer Sister Glaucoma Sister Heart Father mi Diabetes Father Hypertension Mother Alzheimer's Disease Mother Macular Degen Mother Glaucoma Mother Macular Degen Maternal Grandmother Social History Socioeconomic History Marital status: Spouse name: Ramesh Number of children: 3 Years of education: 16+ 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: [employer] Tobacco Use Smoking status: Never Smokeless tobacco: Never Vaping Use Vaping Use: Never used Substance and Sexual Activity Alcohol use: Yes Comment: 1 drink per month not used in 1 year Drug use: No Sexual activity: Not Currently control/protection: Tubal Ligation Social Determinants of Health Financial Resource Strain: Low Risk (01/30/2022) Overall Financial Resource Strain (CARDIA) Difficulty of Paying Living Expenses: Not hard at all Food Insecurity: No Food Insecurity (01/30/2022) Hunger Vital Sign Worried About Running Out of Food in the Last Year: Never true Ran Out of Food in the Last Year: Never true Transportation Needs: Unmet Transportation Needs (01/30/2022) PRAPARE - Transportation Lack of Transportation (Medical): No Lack of Transportation (Non-Medical): Yes Physical Activity: Inactive (01/30/2022) Exercise Vital Sign Days of Exercise per Week: 0 days Minutes of Exercise per Session: 0 min Stress: No Stress Concern Present (01/30/2022) [place] [facility] [employer] - Occupational Stress Questionnaire Feeling of Stress : Only a little Social Connections: Moderately Integrated (01/30/2022) Social Connection and Isolation Panel [NHANES] Frequency of Communication with Friends and Family: More than three times a week Frequency of Social Gatherings with Friends and Family: Three times a week Attends Yazidism Services: More than 4 times per year Active Member of Clubs or Organizations: Yes Attends Club or Organization Meetings: More than 4 times per year Marital Status: Housing Stability: Low Risk (01/30/2022) Housing Stability Vital Sign Unable to Pay for Housing in the Last Year: No Number of Places Lived in the Last Year: 1 Unstable Housing in the Last Year: No MEDICATIONS / ALLERGIES: Current Outpatient Medications Medication Sig ondansetron (ZOFRAN) 8 mg tablet Take 1 tablet by mouth every 6 hours as needed for nausea/vomiting. levothyroxine (LEVOXYL) 25 mcg tablet Take 1 tablet by mouth once daily. Take on empty stomach. ForThyroid mirtazapine (REMERON) 15 mg tablet Take 1 tablet by mouth daily at bedtime. meloxicam (MOBIC) 15 mg tablet Take 1 tablet by mouth once daily. With food. atorvastatin (LIPITOR) 40 mg tablet Take 1 tablet by mouth daily at bedtime. For cholesterol. Methenamine Hippurate (HIPREX) 1 gram tablet Take 1 tablet by mouth twice daily with meals. furosemide (LASIX) 20 mg tablet Take one tablet every day but if looses more than 10 pounds in a week then she needs to hold it. buPROPion (WELLBUTRIN) 75 mg tablet Take it once a day in the morning. sertraline (ZOLOFT) 25 mg tablet Take 1 tablet by mouth once daily. sertraline (ZOLOFT) 100 mg tablet Take 1 tablet by mouth once daily. To take along with 25 mgs to make a total of 125 mgs travoprost (TRAVATAN Z) 0.004 % ophthalmic drops Use 1 Drop in both eyes daily at bedtime. brimonidine-timolol (COMBIGAN) 0.2-0.5 % ophthalmic solution Use 1 Drop in the right eye twice daily. Use at 9 AM and 3 PM ondansetron orally disintegrating (ZOFRAN ODT) 4 mg disintegrating tablet Take 1 tablet by mouth every 6 hours as needed for nausea/vomiting. phenazopyridine (PYRIDIUM, GERIDIUM) 200 mg tablet Take 1 tablet by mouth three times daily as needed. aspirin, enteric coated (ECOTRIN LOW STRENGTH) 81 mg EC tablet Take 1 tablet by mouth once daily. calcium carb/vitamin D3/vit K1 (VIACTIV ORAL) Take 1 tablet by mouth once daily. L GASSERI/B BIFIDUM/B LONGUM ([employer] [facility] ORAL) Take by mouth. CHOLECALCIFEROL, VITAMIN D3, (VITAMIN D3 ORAL) Take by mouth once daily. LUTEIN ORAL Take by mouth. MULTIVITAMIN TABLET PO Take one(1) tablet daily. Current Facility-Administered Medications Medication Dose Route Frequency perflutren lipid microspheres 1.3 mL in NaCl (PF) 0.9% 10 mL injection (DEFINITY) INTRAVENOUS DIRECTED PRN sodium chloride 0.9 % (flush) 10 mL (BD POSIFLUSH) 10 mL INTRAVENOUS DIRECTED PRN ALLERGIES ALLERGIES Allergen Reactions Codeine hives Contrast Dye [Iodin* Diarrhea Diarrhea after oral contrast. Erythromycin GI Upset Methylprednisolone Hives IV Sulfa (Sulfonamide * hives PHYSICAL EXAM: BP 147/82 (BP Site: Left Arm, BP Position: Sitting, BP Cuff Size: Regular Adult) Pulse 84 Temp 36.6 C (97.9 F) (Oral) Ht 152.4 cm (5') Wt 48.5 kg (107 lb) SpO2 96% BMI 20.90 kg/m Physical Exam Declines physical exam today. LABS: Hemoglobin (g/dL) Date Value 03/19/2023 11.7 10/22/2021 13.0 Hematocrit (%) Date Value 03/19/2023 38.8 10/22/2021 41.2 WBC (k/uL) Date Value 03/19/2023 10.68 10/22/2021 9.71 Platelet Count (k/uL) Date Value 03/19/2023 350 10/22/2021 320 CMP: Glucose 90 03/19/2023 BUN 28 03/19/2023 Creatinine (POCT) 0.98 03/19/2023 Sodium 139 03/19/2023 Potassium 4.5 03/19/2023 Chloride 102 03/19/2023 CO2 24 03/19/2023 Protein, Total 6.9 03/19/2023 Albumin 4.3 03/19/2023 Calcium 10.1 03/19/2023 Alkaline Phosphatase 107 03/19/2023 Bilirubin, Total 0.3 03/19/2023 AST 23 03/19/2023 ALT 15 03/19/2023 IMAGING: PET 02/17/2023: IMPRESSION: Head and Neck: * No hypermetabolic foci Chest: * New hypermetabolic left axillary and left subpectoral lymphadenopathy and progressing posterior mediastinal/retrocrural lymphadenopathy, compatible with metastatic disease. Abdomen and pelvis: * No evidence of FDG avid neoplastic process Musculoskeletal: * No neoplastic hypermetabolic lesions PET 11/24/2022: IMPRESSION: 1. Neck: No suspicious hypermetabolic foci 2. Chest: No evidence of FDG avid neoplastic process 3. Abdomen and pelvis: Few new mildly hypermetabolic retrocrural lymph nodes suspicious for metastases. 4. Skeleton: No hypermetabolic osseous lesions ASSESSMENT/PLAN: Rosita Kennedy is a 77 year old with recurrent endometrial cancer. Comorbidities include: Bilateral cataracts, open angle glaucoma, MS (remission without maintenance medications), RLE DVT requiring angioplasty ECOG Performance status: 1-2 # Recurrent endometrioid endometrial cancer, grade 2: - Stage IA, no LVSI, proficient MMR (molecular testing 2017) with derek recurrence in L neck, treated with 6C carbo/taxol, RT to suprcalvicula and aortic/pelvic nodes, s/p letrozole and everolimus with nearly 2 year profression free interval, additional RT to aortocaval nodes, PET with additional nodes and now new axillary nodes, s/p allergic reaction to doxil and unsuccessful rechallenge. - Reviewed options for systemic therapy including IO, single agent taxol vs surveillance with PET at 3 month interval. I shared that while other drugs are available they have far inferior response rates and more significant and common side effects that would significantly worsen her quality of lifeand I would not recommend them at this time. - Given patient is asymptomatic she would like to continue treatment holiday at this time. Will schedule PET for April and follow up visit to review. I spent a total of 60 minutes on the date of the service which included preparing to see the patient, [id number] patient care, completing clinical documentation, obtaining and/or reviewing separately obtained history, performing a medically appropriate examination, counseling and educating the pat ient/family/caregiver, and ordering medications, tests, or procedures. Malathi Roberts MD, MS Gynecologic Oncologist documented in this encounterTrinity Health System07-31-2023 Miscellaneous Notes* Telephone Encounter - Geremias Dalal RN - 03/29/2023 2:12 PM EDTSummary: Patient Update- Second Opinion Patient requesting second opinion from Dr. Roberts, he will see the patient on 03/31/23 at 10am. Patient and family specifically want to discuss MS diagnosis with side effects from immunotherapy versus other options given (taxol/no treatment) as well as if there are any other treatment regimens. Rivera patient's son is aware of date and time of appointment. documented in this encounterTrinity Health System07-31-2023 Miscellaneous Notes* Telephone Encounter - Henry Donovan RN - 03/29/2023 1:16 PM EDT Patients son, Rivera called. Had telephone visit with Dr Perez on 03-26-23. They have not decided on proceeding with treatments options Dr Perez reviewed with them. Requesting a second opinion to a [facility] POLITICAL RESEARCH SCIENTIST/ONC [place]. Message sent to specialist wound care in [place], she will speak with Dr Roberts then call Rivera back with appointment. He is also requesting a consult to [facility] in [place]. Will discuss with team documented in this encounterTrinity Health System07-28-2023 NoteHNO ID: [id number] Author: Joseluis Perez MD Service: ? Author Type: Physician Type: Progress Notes Filed: 04/01/2023 5:44 PM Note Text: TELEVISIT PROGRESS NOTE This is a telephone encounter initiated for an established patient, parent or guardian not originating from a related Evaluation AND Management service provided within the previous 7 days nor leading to an Evaluation AND Management service or procedure within the next 24 hours or soonest available appointment. Patient name and birthday verified: Yes Location of patient: [place] Duration: 21 minutes Persons Present: patient, son (adult), and patient's family DATE OF SERVICE: 03/26/2023 REASON FOR VISIT: discuss treatment options DIAGNOSIS: Recurrent endometrioid adenocarcinoma. MMR normal. HISTORY TO DATE: 1. Initital presentation: Saw Skylar Ackerman CNP for complaints of PMB, 5 day history. On 07/25/2014 had a EMB that showed Well differentiated endometrioid adenocarcinoma, FIGO grade 1. HNPCC screening negative 2. 09/12/2014 Surgery: Single-port total laparoscopic hysterectomy with bilateral salpingo-oophorectomy, bilateral pelvic lymphadenectomy, bilateral periaortic lymphadenectomy and cystoscopy 3.) 10/03/14 Consult to rad onc: RT deferred 4.) 10/26/2016: Lymphatic recurrence in left neck right retrocaval, bilateral pelvis 5.) 12/03/2016: Lymph node FNA: Positive for malignant cells. Adenocarcinoma 6.) 12/10/2016-04/01/2017: Chemo - Carbo/Taxol x 6 cycles 7.) 05/2017: Radiation - RT to left supraclavicular region, retroperitoneal/pelvic node region 8.) 02/2018: Right retrorenal LN met not amenable to SRS or removal. Pt declined cytotoxic therapy ER 50%, NV negative 9). 03/31/2018 - 03/16/2019: Letrozole started. Everolimus added 06/23/2018 due to progression. Treatment discontinued 03/16/2019 due to disease progression (confirmed 03/06/2019). Patient elected treatment holiday. 10). 08/2018: PE, IVC filter placement 11). 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 [facility] Recommended RT (vs systemic chemotherapy) for management of hypermetabolic aortocaval lymphadenopathy. Patient would prefer treatment in [place], [place]. 13). 02/24/2022 - 03/03/2022: Radiation Therapy (SBRT) - The Aortocaval LNs PTV received a total dose of 2400 cGy in [address] Youngblood 14) 09/03/2022 - 09/07/2022: Hospital admission: TCU resident for debility, RY, dehydration, UTI, extensive RLE DVT. 09/07/2022 Admitted to [facility] for heparin drip secondary to DVT 09/08/2022-09/10/2022: Surgical management w/ Dr. Schaefer for extensive RLE DVT. Patient underwent thrombectomy, balloon angioplasty of right lower extremity DVT and IVC venogram, percutaneous thrombectomy IVC, bilateral common and external arteries angioplasty, IVUS. Patient required admission and rehabilitation. 15) 10/2022: PET scan with few new retrocrural lymph nodes suspicious for metastases. 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 16) 02/26/2023: PET/CT shows new hypermetabolic left axillary and left subpectoral lymphadenopathy and progressing posterior mediastinal/retrocrural lymphadenopathy c/w metastatic disease. 17) 03/12/2023, 03/22/2023: Chemotherapy w/ Doxil 40 D1 - Q28 was unsuccessful due to reactions. C1 infusion on 03/12 was stopped after 10ml of Doxil was infused when patient became flushed, BP elevated 170/110 and chest tightness. BP returned normal, but chest tightness continued so pt was transferred to [facility]. Patient had another reaction on 03/23 during inpatient Doxil re-challenge, so treatment was cancelled. Date of last follow up: 02/26/23 [facility] Genetics Consultation/Testing Consultation: No Genetic Testing: No Molecular testing: Yes - CARIS testing Date of testin12/22/2016 Results: below HEALTH MAINTENANCE: Last mammogram: 10/30/2021 - negative Last colonoscopy: 02/24/2019 Last Pap: 02/10/2018 vaginal - Negative Last HPV: 04/09/2016 - Negative TUMOR BOARD 01/13/2022: Tumor Board Management Options: - Radiation oncology consultation for discussion of SBRT. - Recommend systemic treatment with pembrolizumab/lenvima. PAST MEDICAL HISTORY Diagnosis Date Cataracts, bilateral COAG (chronic open-angle glaucoma) CRVO (central retinal vein occlusion) Disorder of bone and cartilage, unspecified Multiple sclerosis (HCC) 2001 remission currently Pseudophakia, both eyes Pyelonephritis, unspecified 01/2010 Pyelonephritis Uterine cancer (HCC) 08/08/2014 PAST SURGICAL HISTORY Procedure Laterality Date DELIVERY ONLY , low cervical X3 COLONOSCOPY 05/18/2016 Dr. Gibbs. no bx taken COLONOSCOPY, GI 1998, 2009 EYE SURGERY PROCEDURE Left 04/11/2021 Xen Gel stent EYLEA (more content not included)...[facility] [id number] NoteHNO ID: [id number] Author: Selina Grullon MD Service: Gynecology Oncology Author Type: Fellow Type: Progress Notes Filed: 03/23/2023 8:01 PM Note Text: Progress Note Called by RN regarding concern for infusion reaction. Patient had SOB, CP, and flushing with beginning of infusion. I verified the infusion was stopped - it was set at a rate to run over 1 hour - 300 ml/hr. She was given solucortef, benadryl, and famotidine and and IVF bolus. I then talked to patient and her daughter. They report with infusion of doxil, patient had SOB, CP, flushing. She reports her CP and flushing resolved, but still feeling some mild SOB. 03/23/23 1715 03/23/23 1821 03/23/23 1848 03/23/23 1936 BP: 100/71 119/91 141/60 Pulse: 66 74 85 Resp: 20 Temp: 37.1 ?C (98.8 ?F) 37.1 ?C (98.8 ?F) 36.3 ?C (97.3 ?F) TempSrc: Oral SpO2: 94% 93% 95% Weight: 48.9 kg (107 lb 12.8 oz) Height: 148 cm (4' 10.27) Given it is 1 hour from infusion and still feeling SOB, will hold off on retrial of infusion. Vitals stable. Recommended staying overnight for observation. Will discuss further plans for chemotherapy with Dr. Perez. Selina Grullon MD PGY7, Gynecologic Oncology Fellow March 23, 2023 7:57 PM Pager: [facility] [phone] Miscellaneous Notes* Telephone Encounter - Deborah Boyd RN - 03/16/2023 2:09 PM EDT Patient's son, Rivera, called the office inquiring about patient's lab appointment on , 03/18as well as the plan going forward since his mother had a reaction to treatment last week. Per MONTSE Wallace, we can cancel the 03/18 lab appointment since the patient is not currently getting treatment and she will discuss plan with Dr. Perez and/or Henry Donovan RN, and then update the son. 03/18 lab appointment canceled. Deborah Boyd RN documented in this encounterTrinity Health System07-14-2023 Discharge summary Author Carlos Enrique Peguero [facility] March 12, 2023 4:53pm Note Date/Time March 12, 2023 3:20 pm [facility] Medical Records Department [address] [place] [id number] Emergency Department Summary 03/12/23 MR#: [id number] Acct: [id number] Name: ROSITA KENNEDY Rep #:[id number] : 1945 77 From: Carlos Enrique Peguero MD PCP: Dr. Bernardino Min MD Status:REG E R Location: ED HPI History of Present Illness Chief Complaint: Chest Pain Informant: patient and family Narrative Narrative: History is in sleep from the patient. But her son is much better on details. Patient's chest pain is chest pain. But she actually had a reaction when she was getting chemotherapy over at [facility]. She has a history of uterine cancer. This was diagnosed approximately 2015. She had hysterectomy chemotherapy. She had some recurrence within the past yearand had radiation near her kidney. On scans and recent checks they found recurrence that were in the chest area. They were giving chemotherapy this afternoon. She went and they are feeling well. They placed the IV. Within about 3 minutes of getting the chemotherapy (doxorubicin) she turned red and flushed. The report I get from the family is that she dropped her blood pressure and oxygen level and looked very red. She had been pretreated with Decadron. They then gave Benadryl and hydrocortisone. She is doing much betternow. She is not having pain or trouble breathing. I have looked for some notesbut it does not look like we have yet gotten a call from those who are treating her. But she is doing markedly better now. She has no history of heart diseasestents. She has had an echocardiogram recently per her son. She is really backto baseline now. Of note the patient also has a history of DVTs back when she had original hysterectomy. A filter was placed approximately 4 years ago. She had lower extremity DVT and had clot extraction recently and is on Xarelto and taking it at this time. She has chronic lower extremity edema and it is at baseline. [facility] Medical History Brain bleed Glaucoma Multiple sclerosis Presence of IVC filter Pulmonary embolism Pulmonary nodule Uterine cancer no medical history Home Medications cholecalciferol (vitamin D3) 25 mcg (1,000 unit) tablet (Vitamin D3) 1,000 unit PO DAILY supplement 09/08/18 [History Last Taken 10/17/22] multivitamin with folic acid 400 mcg tablet (Thera) 1 tab PO DAILY supplement 09/08/18 [History Last Taken 10/17/22] sertraline 100 mg tablet 125 mg PO DAILY mental health 09/08/18 [History Last Taken 10/18/22] brimonidine 0.2 % eye drops 2 drp RIGHT EYE TID glaucoma 08/31/22 [History Last Taken 08/30/22] levothyroxine 25 mcg tablet 25 mcg PO DAILY thyroid 08/31/22 [History Last Taken 08/31/22] methenamine hippurate 1 gram tablet 1 g PO BID Bladder 08/31/22 [History Last Taken 10/18/22] mirtazapine 15 mg tablet 15 mg PO QHS sleep 08/31/22 [History Last Taken 10/17/22] polyethylene glycol 3350 17 gram/dose oral powder (Miralax) 17 g PO DAILY constipation 08/31/22 [History Last Taken 10/18/22] potassium chloride 10 mEq tablet,extended release 10 meq PO BID supplement 08/31/22 [History Last Taken 10/18/22] latanoprost 0.005 % eye drops 1 drp EACH EYE Eye health 09/11/22 [History Last Taken 10/17/22] rivaroxaban 20 mg tablet (Xarelto) 20 mg PO DINNER 30 days #30 tabs 09/16/22 [Rx Last Taken 10/17/22] sertraline 25 mg tablet 125 mg PO DAILY mood stabilizer 10/18/22 [History Last Taken 10/18/22] prednisone 20 mg tablet 40 mg (2 x 20 mg) PO DAILY 5 days #10 TABLETS 03/12/23 [Rx Last Taken Unknown] Allergy/AdvReac Type Severity Reaction Status Date / Time doxorubicin Allergy Severe Anaphylaxis Verified 03/12/23 15:16 codeine Allergy Hives Verified 03/12/23 15:16 methylprednisolone Allergy Hives Verified 03/12/23 15:16 Sulfa (Sulfonamide Allergy Hives Verified 03/12/23 15:16 Antibiotics) erythromycin base AdvReac Upset Verified 03/12/23 15:16 Stomach Surgical History H/O: hysterectomy History of section Social History household members: none housing: house Smoking Status: Never smoker alcohol intake: never substance use type: does not use ROS ROS ED ROS Narrative A complete review of systems was performed and is negative except as documented in the history of present illness. Some specific details below. Constitutional: No recent fevers or chills. She was feeling fine when she went into the facility for chemotherapy today. EYE: No discharge, visual complaints, or pain. ENT: No difficulty swallowing at this time. No swelling. No pain. No reflux symptoms. CV: She did have some chest pain but has trouble describing details about it. She has none now. Respiratory: She was short of breath and evidently dropped her oxygen levels butis doing fine now. GI: No abdominal pain. No nausea vomiting diarrhea. No blood in stool. : No frequency dysuria or hematuria. Musculoskeletal: No recent trauma. No pains. No swelling. Skin: No rash at this time but she evidently turned very red and flushed with infusion of the doxorubicin. Nondiaphoretic. Neuro: No weakness or numbness. Endocrine: No polyuria or polydipsia. EXAM Physical Exam Narrative Exam Narrative: CONSTITUTIONAL: Patient is nontoxic in appearance. The patient looks comfortable. Work of breathing looks normal. HEENT: No notable trauma. Mucous membranes moist. No swelling or difficulty swallowing. Sounds normal. EYES: No conjunctival injection. No proptosis. No lid swelling. NECK:No JVD. No stridor. CARDIOVASCULAR: Regular rate. Regular rhythm. No notable murmur. No JVD. RESPIRATORY: No respiratory distress. Breathing is unlabored. No wheezes. Just a few crackles are heard at the bases. However, her saturations are normal at 96 to 99% on room air showing no hypoxia. Her breathing is easy and unlabored. She has a med port in the right upper chest that does not look inflamed. GASTROINTESTINAL: Not distended. Bowel sounds are normal. No tenderness. No guarding. No rebound. No palpable mass. No bruit is heard. GENITOURINARY: No tenderness over the bladder. No CVA tenderness. MUSCULOSKELETAL: Atraumatic. Just a small amount of bilateral and equal peripheral edema. Is apparently normal per son. NEUROLOGICAL: Patient is alert and appropriate. No focal deficit is noted. She is not the best informant for details in terms of timing. She was not sure if she was on Xarelto. She was not sure if she had had a hysterectomy with original diagnosis. SKIN: No noted rashes. No diaphoresis. PSYCHIATRIC: Patient is calm. Mood is appropriate. Const Vital Signs: 03/12/23 15:06 03/12/23 15:37 Temperature 98.3 F Temperature Source Oral Pulse Rate 88 Respiratory Rate 19 H Blood Pressure 144/43 H Blood Pressure Mean 76 Pulse Ox 96 Oxygen Delivery Method Room Air Room Air MDM MDM MDM Narrative Medical decision making narrative: Patient CBC shows minimal elevation of white count and decreased hemoglobin which is nonspecific. Electrolytes show no marked abnormalities. Minimal elevation in the BUN relative to creatinine. Glucose is just slightly up at 120. Troponin is normal at 8. Patient has been up to the bathroom. She feels well. She wants to go home. I think this is reasonable. Her symptoms were consistent with an acute allergic reaction not with coronary ischemia. I do not think we have to wait for repeat troponin. We will get her on several days of prednisone. I have encouraged using [id number] Claritin once a day. She states sometimes Benadryl makesher loopy. If she has any further symptoms that should return. She will contact her oncologist about further chemotherapy options. Lab Data Attestation: I reviewed the patient's lab results. Labs: Laboratory Results - last 24 hr 03/12/23 15:32 WBC 13.4 H RBC 4.43 Hgb 11.1 L Hct 37.2 MCV 84.0 MCH 25.1 L MCHC 29.8 L RDW Std Deviation 51.0 H RDW Coeff of Lauro 16.6 H Plt Count 283 MPV 9.5 Neut % (Auto) Not Reportable Absolute Neuts (auto) 12.2 H Absolute Lymphs (auto) 1.07 Total Counted 100 Neutrophils % (Manual) 85 H Band Neutrophils % 6 H Lymphocytes % (Manual) 8 L Eosinophils % (Manual) 1 Diff Path Review May foll Platelet Estimate ADEQUATE RBC Morphology NORM C+C Sodium 140 Potassium 3.7 Chloride 107 Carbon Dioxide 28.0 Anion Gap 5 BUN 21 H Creatinine 0.96 Estim Creat Clear Calc 36.37 Est GFR (MDRD) Af Amer 73 Est GFR (MDRD) Non-Af 60 BUN/Creatinine Ratio 21.9 H Glucose 120 H Calcium 8.7 Troponin I High Sens 8 Radiography Diagnostic Testing: Clinical Impression(s) from Imaging Studies Chest X-Ray 03/12/23 15:40 IMPRESSION: No radiographic evidence of acute cardiopulmonary disease. Electronically Signed: Brook Griffin MD at 16:04 EDT , EKG Initial EKG: Comments: My independent interpretation of the patient's EKG done for recent history of chest pain shows a sinus rhythm with occasional PACs. No ventricular ectopy. Poor anterior R wave. Mild nonspecific changes but no signof acute infarct or ischemia. NV interval, QRS duration and QTc are normal. Discharge Plan Triage Chief Complaint: Chest Pain ED Provider: Carlos Enrique Peguero Dx/Rx/DC Orders Clinical Impression: Drug-induced anaphylaxis Instructions: ED Anaphylaxis Prescriptions: New prednisone 20 mg tablet 40 mg PO DAILY 5 Days Qty: 10 0RF No Action sertraline 100 MG tablet 125 mg PO DAILY Patient Comments: TAKE 1 TABLET BY MOUTH EVERY DAY cholecalciferol (vitamin D3) [Vitamin D3] 1,000 UNIT tablet 1,000 unit PO DAILY multivitamin with folic acid [Thera] 1 TABLET tablet 1 tab PO DAILY potassium chloride 10 mEq tablet extended release 10 meq PO BID levothyroxine 25 mcg tablet 25 mcg PO DAILY methenamine hippurate 1 gram tablet 1 g PO BID Patient Comments: TAKE 1 TABLET BY MOUTH TWICE A DAY WITH MEALS brimonidine 0.2 % drops 2 drp RIGHT EYE TID Patient Comments: INSTILL 1 DROP INTO RIGHT EYE 3 TIMES A DAY mirtazapine 15 mg tablet 15 mg PO QHS Patient Comments: 1 tablet by mouth once a day polyethylene glycol 3350 [Miralax] 17 gram/dose Powder 17 g PO DAILY latanoprost 0.005 % drops 1 drp EACH EYE HS Xarelto 20 mg Tablet 20 mg PO DINNER 30 Days Qty: 30 0RF sertraline 25 mg tablet 125 mg PO DAILY Primary Care Provider: Bernardino Min Chi Referrals: Bernardino Min Chi, MD [Primary Care Provider] - 3-5 Days if not improving Activity Restrictions/Additional Instructions: Follow-up with your oncologist about further chemotherapy options. Take 1 Claritin a day for the next 3 to 5 days. Disposition Disposition: Home, Self Care What to do if you have Problems For any increased pain, shortness of breath, bleeding, nausea or vomiting, chestpain, or any unexpected problems, contact your Primary Care Provider. Call [facility] ([phone]) or report to the closest Emergency Room. Call 911 if necessary. 03/12/231652 <Electronically signed by Carlos Enrique Peguero MD> Cosigner Signature (if applicable): CC: Dr. Bernardino Min MD ~ Signed [facility] Work Phone: [phone] 194-882407-14-2023 Miscellaneous Notes* Telephone Encounter - Henry Donovan RN - 03/12/2023 3:34 PM EDT Spoke with Garcia at [place] infusion suite. 10ml DOXIL infused when patient became flushed/ BP elevated 170/110 and chest tightness. BP returned to normal but chest tightness persisted. Patient was transferred via squad to [facility] . Will call Rivera, shahla son. Dr Wu aware. * Telephone Encounter - Garcia Yost RN - 03/12/2023 2:[address] Perez, Pt came in today for her first doxorubicin infusion. Doxorubicin infusion stopped 10 due to pt being flushed and developing chest tightness. Pt received premeds that were ordered prior to chemotherapy and also received an additional 25mg IV benadryl and 100mg of solucortef. Pt was transferred to [facility] through squad due to continuing chest tightness. Please keep us updated about the plan of care for this pt. Thank you, Garcia RN documented in this encounterTrinity Health System07-14-2023 NoteHNO ID: [id number] Author: Garcia Yost RN Service: ? Author Type: Registered Nurse Type: Progress Notes Filed: 03/12/2023 3:27 PM Note Text: 1429 Doxorubin stopped due to pt developing chest tightness and being flushed. Dr. Frazier present by chairside. See flowsheet for vitals. Pt treated with IVF, 25mg benadryl and 100mg solucortef. Pt transferred to [facility] through ambulance due to continuous chest tightness. Dr. Perez paged by this RN and notified about reaction through telephone consult.[facility]07-14-2023 History of Present illness Narrative* Garcia Yost RN - 03/12/2023 3:15 PM EDT 1429 Doxorubin stopped due to pt developing chest tightness and being flushed. Dr. Frazier present bychairside. See flowsheet for vitals. Pt treated with IVF, 25mg benadryl and 100mg solucortef. Pt transferred to [facility] through ambulance due to continuous chest tightness. Dr. Annabel ziegler this RN and notified about reaction through telephone consult. documented in this encounterTrinity Health System07-14-2023 Hospital Discharge instructions Additional Instructions Follow-up with your oncologist about further chemotherapy options. Take 1 Claritin a day for the next 3 to 5 days.[facility] Work Phone: 1(707) 997-506807-12-2023 NoteHNO ID: [id number] Author: Henry Donovan RN Service: ? Author Type: Registered Nurse Type: Progress Notes Filed: 03/10/2023 8:04 AM Note Text: Received a message from Dr Schaefer office. US report reviewed, no further action required. Will update [facility]07-06-2023 NoteHNO ID: [id number] Author: Henry Donovan RN Service: ? 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 Negative study for calf DVT in the left lower extremity. Negative study for superficial thrombophlebitis in the imaged segments of the left lower extremity. Discussed with NEWS DEPARTMENT INTERN. Faxed US report and last Dr Perez OV note to Dr Ethan Schaefer (vascular surgeon following patient) See below for history 09/03/2022 - 09/07/2022: Hospital admission: TCU resident for debility, RY, dehydration, UTI, extensive RLE DVT. 09/07/2022 Admitted to [facility] for heparin drip secondary to DVT 09/08/2022-09/10/2022: Surgical management w/ Dr. Schaefer for extensive RLE DVT. Patient underwent thrombectomy, balloon angioplasty of right lower extremity DVT and IVC venogram, percutaneous thrombectomy IVC, bilateral common and external arteries angioplasty, IVUS. Patient required admission and rehabilitation. 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 Negative study for calf DVT in the left lower extremity. Negative study for superficial thrombophlebitis in the imaged segments of the left lower extremity. Discussed with NEWS DEPARTMENT INTERN. Faxed US report and last Dr Perez OV note to Dr Ethan Schaefer (vascular surgeon following patient) See below for history 09/03/2022 - 09/07/2022: Hospital admission: TCU resident for debility, RY, dehydration, UTI, extensive RLE DVT. 09/07/2022 Admitted to [facility] for heparin drip secondary to DVT 09/08/2022-09/10/2022: Surgical management w/ Dr. Schaefer for extensive RLE DVT. Patient underwent thrombectomy, balloon angioplasty of right lower extremity DVT and IVC venogram, percutaneous thrombectomy IVC,bilateral common and external arteries angioplasty, IVUS. Patient required admission and rehabilitation. documented in this encounterTrinity Health System07-06-2023 Miscellaneous Notes* Telephone Encounter - Racheal Saldana APRN.CNP - 03/04/2023 2:57 PM EDT The following approved medication requests have been transmitted electronically. Requested Prescriptions Signed Prescriptions Disp Refills ondansetron (ZOFRAN) 8 mg tablet 30 tablet 5 Sig: Take 1 tablet by mouth every 6 hours as needed for nausea/vomiting. Authorizing Provider: RACHEAL SALDANA APRN.CNP documented in this encounterTrinity Health System07-06-2023 History of Present illness Narrative* Jackie Maldonado RDMS - 03/04/2023 1:45 PM EDT Radiology Service Progress Note PATIENT NAME: Rosita Kennedy DATE OF SERVICE: March 04, 2023 TIME: 2:52 PM PATIENT IDENTITY VERIFICATION COMPLETED USING TWO (2) IDENTIFIERS: Name and Date of confirmedby patient verbally. FALL SCREENING: Has the patient had 2 falls in the last year or 1 fall with injury or currently using an Ambulatory Assistive Device (Walker, Cane, Wheelchair, Crutches, etc.)? Yes, Patient High Riskfor Falls What interventions were put in place to prevent falls during this visit? Instructed Patient to Callfor Help if Needed, Offered Assistance with Transfers/Clothing, Instructed Patient to Remain Seated(Not on Exam Table) Until Exam, and Increased Observations by Caregivers PATIENT GENDER DATA: Female. status: : No status: NO. PATIENT RELEVANT IMPLANT DATA REVIEWED: Not Applicable RADIOLOGY DEPARTMENT: Ultrasound PERIPHERAL IV DATA: Not applicable SIGNED BY: Jackie Maldonado RDMS RVT March 04, 2023 2:52 PM documented in this encounterTrinity Health System07-06-2023 NoteHNO ID: [id number] Author: Jackie Maldonado RDMS Service: ? Author Type: Engagement Liaison Type: Progress Notes Filed: 03/04/2023 2:52 PM Note Text: Radiology Service Progress Note PATIENT NAME: Rosita Kennedy DATE OF SERVICE: March 04, 2023 TIME: 2:52 PM PATIENT IDENTITY VERIFICATION COMPLETED USING TWO (2) IDENTIFIERS: Name and Date of confirmed by patient verbally. FALL SCREENING: Has the patient had 2 falls in the last year or 1 fall with injury or currently using an Ambulatory Assistive Device (Walker, Cane, Wheelchair, Crutches, etc.)? Yes, Patient High Risk for Falls What interventions were put in place to prevent falls during this visit? Instructed Patient to Call for Help if Needed, Offered Assistance with Transfers/Clothing, Instructed Patient to Remain Seated (Not on Exam Table) Until Exam, and Increased Observations by Caregivers PATIENT GENDER DATA: Female. status: : No status: NO. PATIENT RELEVANT IMPLANT DATA REVIEWED: Not Applicable RADIOLOGY DEPARTMENT: Ultrasound PERIPHERAL IV DATA: Not applicable SIGNED BY: Jackie Maldonado RDMS RVYaquelin March 04, 2023 2:52 [facility]06-30-2023 NoteHNO ID: [id number] Author: Joseluis Perez MD Service: ? Author Type: Physician Type: Progress Notes Filed: 03/02/2023 8:20 PM Note Text: DATE OF SERVICE: 02/26/2023 REASON FOR VISIT: 3 month follow up; PET/CT review DIAGNOSIS: Recurrent endometrioid adenocarcinoma. MMR normal. HISTORY TO DATE: 1. Initital presentation: Saw Skylar Ackerman CNP for complaints of PMB, 5 day history. On 07/25/2014 had a EMB that showed Well differentiated endometrioid adenocarcinoma, FIGO grade 1. HNPCC screening negative 2. 09/12/2014 Surgery: Single-port total laparoscopic hysterectomy with bilateral salpingo-oophorectomy, bilateral pelvic lymphadenectomy, bilateral periaortic lymphadenectomy and cystoscopy 3.) 10/03/14 Consult to rad onc: RT deferred 4.) 10/26/2016: Lymphatic recurrence in left neck right retrocaval, bilateral pelvis 5.) 12/03/2016: Lymph node FNA: Positive for malignant cells. Adenocarcinoma 6.) 12/10/2016-04/01/2017: Chemo - Carbo/Taxol x 6 cycles 7.) 05/2017: Radiation - RT to left supraclavicular region, retroperitoneal/pelvic node region 8.) 02/2018: Right retrorenal LN met not amenable to SRS or removal. Pt declined cytotoxic therapy ER 50%, NV negative 9). 03/31/2018 - 03/16/2019: Letrozole started. Everolimus added 06/23/2018 due to progression. Treatment discontinued 03/16/2019 due to disease progression (confirmed 03/06/2019). Patient elected treatment holiday. 10). 08/2018: PE, IVC filter placement 11). 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 01/01/2022: [facility]. Recommended RT (vs systemic chemotherapy) for management of hypermetabolic aortocaval lymphadenopathy. Patient would prefer treatment in [place], [place]. 13). 02/24/2022 - 03/03/2022: Radiation Therapy (SBRT) - The Aortocaval LNs PTV received a total dose of 2400 cGy in [address] Youngblood 14) 09/03/2022 - 09/07/2022: Hospital admission: TCU resident for debility, RY, dehydration, UTI, extensive RLE DVT. 09/07/2022 Admitted to [facility] for heparin drip secondary to DVT 09/08/2022-09/10/2022: Surgical management w/ Dr. Schaefer for extensive RLE DVT. Patient underwent thrombectomy, balloon angioplasty of right lower extremity DVT and IVC venogram, percutaneous thrombectomy IVC, bilateral common and external arteries angioplasty, IVUS. Patient required admission and rehabilitation. 15) 10/2022: PET scan with few new retrocrural lymph nodes suspicious for metastases. 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 Date of last follow up: 2022 Genetics Consultation/Testing Consultation: No Genetic Testing: No Molecular testing: Yes - CARIS testing Date of testin12/22/2016 Results: below HEALTH MAINTENANCE: Last mammogram: 10/30/2021 - negative Last colonoscopy: 02/24/2019 Last Pap: 02/10/2018 vaginal - Negative Last HPV: 04/09/2016 - Negative TUMOR BOARD 01/13/2022: Tumor Board Management Options: - Radiation oncology consultation for discussion of SBRT. - Recommend systemic treatment with pembrolizumab/lenvima. PAST MEDICAL HISTORY Diagnosis Date Cataracts, bilateral COAG (chronic open-angle glaucoma) CRVO (central retinal vein occlusion) Disorder of bone and cartilage, unspecified Multiple sclerosis (HCC) 2001 remission currently Pseudophakia, both eyes Pyelonephritis, unspecified 01/2010 Pyelonephritis Uterine cancer (HCC) 08/08/2014 PAST SURGICAL HISTORY Procedure Laterality Date DELIVERY ONLY , low cervical X3 COLONOSCOPY 05/18/2016 Dr. Gibbs. no bx taken COLONOSCOPY, GI 1998, 2009 EYE SURGERY PROCEDURE Left 04/11/2021 Xen Gel stent EYLEA (AFLIBERCEPT) 2MG INTRAVITREAL INJECTION OD (RIGHT EYE) Right 04/02/2016 #7 INSERT ANT SEGMENT DRAIN INT 11/21/2014 iStent Implantation Left Eye LIG/TRNSXJ FLP TUBE ABDL/VAG APPR UNI/BI 1976 PAST SURGICAL HISTORY OF right EYE SURGERY AGE 7 PAST SURGICAL HISTORY OF Right 11/06/2020 Xen Gel PULMONARY FUNCTION TEST 06/07/03 XCAPSL CTRC RMVL INSJ IO LENS PROSTH W/O ECP 11/21/2014 Cataract Extraction with PC IOL/Femtosecond Laser Left Eye Family History Problem Relation Age of Onset Breast Cancer Sister Glaucoma Sister Heart Father mi Diabetes Father Hypertension Mother Alzheimer's Disease Mother Macular Degen Mother Glaucoma Mother Macular Degen Maternal Grandmother PATHOLOGY 09/12/14 Staging Moderately differentiated endometrioid adenocarcinoma, FIGO grade 2. myometiral invasion (2 mm out of 16 mm) TUMOR SIZE: 2.8 cm LYMPH-VASCULAR INVASION: Not identified Nodes negative 11/26/2016 ESTROGEN/PROGESTERONE RECEPTOR (ER/NV) ANALYSIS Estrogen receptors immunostain appears weakly to moderately positive in 30% of cell nuclei. Progesterone receptors immunostain appears mod (more content not included)...[facility] [id number] History of Present illness Narrative * Joseluis Perez MD - 02/26/2023 2:15 PM EDT Images from the original note were not included. DATE OF SERVICE: 02/26/2023 REASON FOR VISIT: 3 month follow up; PET/CT review DIAGNOSIS: Recurrent endometrioid adenocarcinoma. MMR normal. HISTORY TO DATE: 1. Initital presentation: Saw Skylar Ackerman CNP for complaints of PMB, 5 day history. On 07/25/2014 had a EMB that showed Well differentiated endometrioid adenocarcinoma, FIGO grade 1. HNPCC screening negative 2. 09/12/2014 Surgery: Single-port total laparoscopic hysterectomy with bilateral salpingo-oophorectomy, bilateral pelvic lymphadenectomy, bilateral periaortic lymphadenectomy and cystoscopy 3.) 10/03/14 Consult to rad onc: RT deferred 4.) 10/26/2016: Lymphatic recurrence in left neck right retrocaval, bilateral pelvis 5.) 12/03/2016: Lymph node FNA: Positive for malignant cells. Adenocarcinoma 6.) 12/10/2016-04/01/2017: Chemo - Carbo/Taxol x 6 cycles 7.) 05/2017: Radiation - RT to left supraclavicular region, retroperitoneal/pelvic node region 8.) 02/2018: Right retrorenal LN met not amenable to SRS or removal. Pt declined cytotoxic therapy ER 50%, NV negative 9). 03/31/2018 - 03/16/2019: Letrozole started. Everolimus added 06/23/2018 due to progression. Treatment discontinued 03/16/2019 due to disease progression (confirmed 03/06/2019). Patient elected treatment holiday. 10). 08/2018: PE, IVC filter placement 11). 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 [facility] Recommended RT (vs systemic chemotherapy) for management of hypermetabolic aortocaval lymphadenopathy. Patient would prefer treatment in [place], [place]. 13). 02/24/2022 - 03/03/2022: Radiation Therapy (SBRT) - The Aortocaval LNs PTV received a total doseof 2400 cGy in [address] Youngblood 14) 09/03/2022 - 09/07/2022: Hospital admission: TCU resident for debility, RY, dehydration, UTI, extensive RLE DVT. 09/07/2022 Admitted to [facility] for heparin drip secondary to DVT 09/08/2022-09/10/2022: Surgical management w/ Dr. Schaefer for extensive RLE DVT. Patient underwent thrombectomy, balloon angioplasty of right lower extremity DVT and IVC venogram, percutaneous thrombectomy IVC, bilateral common and external arteries angioplasty, IVUS. Patient required admission and rehabilitation. 15) 10/2022: PET scan with few new retrocrural lymph nodes suspicious for metastases. 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 Date of last follow up: 2022 Genetics Consultation/Testing Consultation: No Genetic Testing: No Molecular testing: Yes - LISAIS testing Date of testin12/22/2016 Results: below HEALTH MAINTENANCE: Last mammogram: 10/30/2021 - negative Last colonoscopy: 02/24/2019 Last Pap: 02/10/2018 vaginal - Negative Last HPV: 04/09/2016 - Negative TUMOR BOARD 01/13/2022: Tumor Board Management Options: - Radiation oncology consultation for discussion of SBRT. - Recommend systemic treatment with pembrolizumab/lenvima. PAST MEDICAL HISTORY Diagnosis Date Cataracts, bilateral COAG (chronic open-angle glaucoma) CRVO (central retinal vein occlusion) Disorder of bone and cartilage, unspecified Multiple sclerosis (HCC) 2001 remission currently Pseudophakia, both eyes Pyelonephritis, unspecified 01/2010 Pyelonephritis Uterine cancer (HCC) 08/08/2014 PAST SURGICAL HISTORY Procedure Laterality Date DELIVERY ONLY , low cervical X3 COLONOSCOPY 05/18/2016 Dr. Gibbs. no bx taken COLONOSCOPY, GI 1998, 2009 EYE SURGERY PROCEDURE Left 04/11/2021 Xen Gel stent EYLEA (AFLIBERCEPT) 2MG INTRAVITREAL INJECTION OD (RIGHT EYE) Right 04/02/2016 #7 INSERT ANT SEGMENT DRAIN INT 11/21/2014 iStent Implantation Left Eye LIG/TRNSXJ FLP TUBE ABDL/VAG APPR UNI/BI 1976 PAST SURGICAL HISTORY OF right EYE SURGERY AGE 7 PAST SURGICAL HISTORY OF Right 11/06/2020 Xen Gel PULMONARY FUNCTION TEST 06/07/03 XCAPSL CTRC RMVL INSJ IO LENS PROSTH W/O ECP 11/21/2014 Cataract Extraction with PC IOL/Femtosecond Laser Left Eye Family History Problem Relation Age of Onset Breast Cancer Sister Glaucoma Sister Heart Father mi Diabetes Father Hypertension Mother Alzheimer's Disease Mother Macular Degen Mother Glaucoma Mother Macular Degen Maternal Grandmother PATHOLOGY 09/12/14 Staging Moderately differentiated endometrioid adenocarcinoma, FIGO grade 2. myometiral invasion (2 mm out of 16 mm) TUMOR SIZE: 2.8 cm LYMPH-VASCULAR INVASION: Not identified Nodes negative 11/26/2016 ESTROGEN/PROGESTERONE RECEPTOR (ER/NV) ANALYSIS Estrogen receptors immunostain appears weakly to moderately positive in 30% of cell nuclei. Progesterone receptors immunostain appears moderately positive in 50% of cell nuclei. 2016 BIOPSY- CT-guided percutaneous biopsy of retroperitoneal lymph node Right lower back retroperitoneal lymph node, biopsy Metastatic carcinoma consistent with endometrial primary. Keratin AE1/AE3 and PAX8 are positive, consistent with the above interpretation. Neal Mckinney McKenney and Mehnaz concur with the interpretation. Estrogen receptor is positive (50% of tumor cells) and progesterone receptor is negative (0% of tumor cells). 12/03/2016 Lymph node FNA: Positive for malignant cells. Adenocarcinoma (see comment). TUMOR MARKERS: CA 125 (U/mL) Date Value 10/22/2021 31 06/06/2021 33 2020 33 01/09/2020 31 10/03/2019 27 06/21/2019 29 03/06/2019 41 02/02/2019 42 12/07/2018 48 11/07/2018 37 10/10/2018 38 07/05/2017 24 04/08/2017 24 03/18/2017 29 02/08/2017 31 02/04/2017 29 01/14/2017 34 08/09/2014 25 No results found for: CA199 RECENT IMAGIN06/12/2022 PET/CT IMPRESSION: 1. NECK: * No FDG avid neoplastic process.. 2. CHEST: * No FDG avid neoplastic process.. 3. ABDOMEN/PELVIS: * Significantly decreased size and hypermetabolism of aortocaval/retrocaval lymphadenopathy. There is residual retrocaval soft tissue thickening without focal hypermetabolism suggest treatment related changes.. * No new FDG avid neoplastic process. 4. EXTREMITIES/SKELETON: * No FDG avid neoplastic process.. 11/04/2022 PET/CT IMPRESSION: 1. Neck: No suspicious hypermetabolic foci 2. Chest: No evidence of FDG avid neoplastic process 3. Abdomen and pelvis: Few new mildly hypermetabolic retrocrural lymph nodes suspicious for metastases. 4. Skeleton: No hypermetabolic osseous lesions 02/17/2023 PET/CT IMPRESSION: Head and Neck: * No hypermetabolic foci Chest: * New hypermetabolic left axillary and left subpectoral lymphadenopathy and progressing posterior mediastinal/retrocrural lymphadenopathy, compatible with metastatic disease. Abdomen and pelvis: * No evidence of FDG avid neoplastic process Musculoskeletal: * No neoplastic hypermetabolic lesions ECOG Performance Status: 1- Restricted in physically strenuous activity. Carries out light duty. SUBJECTIVE: Rosita Kennedy reports that she feels well. No vaginal bleeding or discharge. No shortness of breath, cough, or chest pain. No abdominal pain, nausea, vomiting, diarrhea, or constipation. No dysuria, gross hematuria, urinary frequency, urinary urgency, or incontinence. Her ECOG performance status is 1 (restricted in physically strenuous activity but ambulatory and able to carry out work of a light or sedentary nature). She states she is mostly capable of all self care, but she has to use her walker for ambulation around the house. Reports night sweats off and on for over a year. Reports stable neuropathy in her feet. OBJECTIVE: VITALS: BP 146/70 Pulse 73 Temp (Src) 97.8 (Oral) Ht 4' 10.15[verified with RC[ (1.48m) Wt108 lb (49.0kg) BMI 22.46 kg/(m^2). GENERAL: alert, oriented, pleasant, and cooperative. HEENT: Normocephalic, atraumatic, mucus membranes moist, and no lesions. NECK: Supple, no adenopathy; thyroid symmetric, normal size, no bruits. No supraclavicular or cervical lymphadenopathy. Positive left axillary/ subpectoral lymphadenopathy. ABDOMEN: Abdomen soft, non-tender, no hepatosplenomegaly. ASSESSMENT: 1. 77 yo stage IA FIGO 2 endometrial cancer, negative LVSI and negative nodes. MMR nl (verified) *Lymphatic recurrence L neck, R retrocaval, bilateral pelvis 2016 *s/p CT x 6 12/10/2016 - 04/01/2017 *s/p RT c 06/07/2017 *PE IVC filter 08/2018 *Recurrence - Aortocaval lymphadenopathy 12/2021 *S/p SBRT w Dr. Daniel bowles 03/03/2022 *Recurrence - Retrocrural lymph nodes suspicious for metastases 10/2022 and progression with left axillary, subpectoral and mediastinal nodes on 01/2023 PET *PMHx: *Multiple sclerosis - not on any medications at this time. *RLE DVT 08/2022 - on Xarelto, follows with Dr. Schaefer PLAN: - Rosita presents for 3 month follow up visit for recurrent endometrial cancer. She has been feeling well overall since her last visit, aside from night sweats on and off (for over a year). In view of her RLE DVT history, she is following with Dr. Schaefer and reports improvement in her physical ability. She uses her wheelchair for ambulation and reports being mostly able to do all her self care. We reviewed and discussed her recent PET/CT from 02/17/23. Results showed new hypermetabolic left axillary and left subpectoral lymphadenopathy and progressing posterior mediastinal/retrocrural lymphadenopathy compatible with metastatic disease. given further proximal spread of her disease and multisite location, I do not believe local therapy is feasible and systemic treatment would be necessary should she opt for active treatments. - Discussed the following options for systemic therapy and possible side effects/toxicities of each. 1) Immunotherapy based treatment with Keytruda/Lenvima 2) Doxil chemotherapy: infusions every 4 weeks. 3) Taxol chemotherapy: infusions weekly. Discussed that the immunotherapy based regimen will likely have the most efficacy ( roughly 25 - 30%), but it may not be as well tolerated due to the side effects associated with Lenvima. Doxil and Taxol treatments may be less effective, but the Doxil will likely have less side effects and be more t olerated compared to Lenvima or Taxol. - She expresses that she would like to pursue chemotherapy with Doxil. Discussed plan to have her infusions done in [place] and I will follow up with her virtually. Will follow her closely with bloodwork. Will obtain scans (PET/CT) after 3 cycles. - Discussed possible side effects including but not limited to mouth sores, skin dryness, and fatigue. Also discussed potential risk of Doxorubicin-induced heart damage. Will obtain echo prior to starting Chemotherapy. Informed consent obtained. Medical Decision Making: Problems: Moderate: 1+ chronic illnesses with change Data: Unique test result(s) reviewed: 2 Risk: Moderate: Drug management and Moderate risk from testing/treatment Medical Decision Making Level: 4 - Moderate Scribe Attestation: I, Aimee Drake, attest that I personally scribed for Dr. Joseluis Perez MD and that the documentation was captured in collaboration with Dr. Joseluis Perez MD. Provider Attestation: I agree with the Chief Complaint, ROS, and Past Histories independently gathered by the clinical gwot ia/ilo intelligence support and the remaining scribed note accurately describes my personal service to the patient. Joseluis Preez MD documented in this encounterTrinity Health System06-30-2023 Nurse Note* Jackie Murphy MA - 02/26/2023 1:53 PM EDT PT c/o intermittent night sweats. documented in this encounterTrinity Health System06-21-2023 NoteHNO ID: [id number] Author: Jackie Arce RT(R) Service: Nuclear Radiology Author Type: Technologist Type: Progress Notes Filed: 02/17/2023 1:54 PM Note Text: RADIOLOGY SERVICE PROGRESS NOTE SERVICE DATE: 02/17/2023 SERVICE TIME: 1:53 PM PATIENT IDENTITY VERIFICATION COMPLETED USING TWO (2) STANDARD IDENTIFIERS: Name and Date of confirmed by patient verbally FALL SCREENING: Has the patient had 2 falls in the last year or 1 fall with injury or currently using an Ambulatory Assistive Device (Walker, Cane, Wheelchair, Crutches, etc.)? Yes, Patient High Risk for Falls What interventions were put in place to prevent falls during this visit? [place] Risk Wristband Applied, Instructed Patient to Call for Help if Needed, Offered Assistance with Transfers/Clothing, Instructed Patient to Remain Seated (Not on Exam Table) Until Exam, Increased Observations by Caregivers, and Escorted to/from Restroom PATIENT GENDER DATA: .female : No ALLERGIES: Reviewed and unchanged MEDICATIONS REVIEWED: Yes PATIENT RELEVANT IMPLANT DATA REVIEWED: Not Applicable CREATININE: Creatinine Date Value Ref Range Status 08/28/2022 1.69 (H) 0.58 - 0.96 mg/dL Final 08/03/2022 1.07 (H) 0.58 - 0.96 mg/dL Final 04/14/2022 0.97 (H) 0.58 - 0.96 mg/dL Final Estimated Glomerular Filtration Rate Date Value Ref Range Status 08/28/2022 32 (L) >=60 mL/min/1.73m? Final Comment: Estimated Glomerular Filtration Rate (eGFR) is calculated using the 2020 CKD-EPI creatinine equation. This equation utilizes serum creatinine, sex, and age as parameters. The creatinine assay has traceable calibration to isotope dilution-mass spectrometry. Refer to KDIGO guidelines for clinical interpretation. In patients with unstable renal function, e.g. those with acute kidney injury, the eGFR may not accurately reflect actual GFR. eGFR- Date Value Ref Range Status 10/22/2021 >60 Final P.O.C.T. RESULTS: N/A February 17, [address] PERFORMED: No IV SITE: Ambulatory: A peripheral IV was started in the Left antecubital site with a Angio cath: 24 gauge. POST EXAM PIV STATUS: Discontinued PROCEDURE TYPE: NM INJECT: PET/CT BODY SCAN. 6.1 mCi F18 FDG. No other medications given.. ADMINISTRATION TIME: 1350 PATIENT DISCHARGED TO: Ambulatory patient, left NM department area. A Diagnostic radioactive procedure has taken place, with no further precautions necessary other than routine body substance precautions. More information regarding radiation safety can be found using this link: [email or web address] SIGNATURE: RT Wayne(Maribel) PATIENT NAME: Rosita Kennedy DATE: February 17, 2023 TIME: 1:53 PM PAGER[facility]CONTACT #:[phone] History of Present illness Narrative* RT Wayne(R) - 02/17/2023 2:00 PM EDT RADIOLOGY SERVICE PROGRESS NOTE SERVICE DATE: 02/17/2023 SERVICE TIME: 1:53 PM PATIENT IDENTITY VERIFICATION COMPLETED USING TWO (2) STANDARD IDENTIFIERS: Name and Date of confirmed by patient verbally FALL SCREENING: Has the patient had 2 falls in the last year or 1 fall with injury or currently using an Ambulatory Assistive Device (Walker, Cane, Wheelchair, Crutches, etc.)? Yes, Patient High Riskfor Falls What interventions were put in place to prevent falls during this visit? [place] Risk Wristband Applied, Instructed Patient to Call for Help if Needed, Offered Assistance with Transfers/Clothing, Instructed Patient to Remain Seated (Not on Exam Table) Until Exam, Increased Observations by Caregivers, and Escorted to/from Restroom PATIENT GENDER DATA: .female : No ALLERGIES: Reviewed and unchanged MEDICATIONS REVIEWED: Yes PATIENT RELEVANT IMPLANT DATA REVIEWED: Not Applicable CREATININE: Creatinine Date Value Ref Range Status 08/28/2022 1.69 (H) 0.58 - 0.96 mg/dL Final 08/03/2022 1.07 (H) 0.58 - 0.96 mg/dL Final 04/14/2022 0.97 (H) 0.58 - 0.96 mg/dL Final Estimated Glomerular Filtration Rate Date Value Ref Range Status 08/28/2022 32 (L) >=60 mL/min/1.73m Final Comment: Estimated Glomerular Filtration Rate (eGFR) is calculated using the 2020 CKD-EPI creatinine equation. This equation utilizes serum creatinine, sex, and age as parameters. The creatinine assay has traceable calibration to isotope dilution- mass spectrometry. Refer to KDIGO guidelines for clinical interpretation. In patients with unstable renal function, e.g. those with acute kidney injury, the eGFRmay not accurately reflect actual GFR. eGFR- Date Value Ref Range Status 10/22/2021 >60 Final P.O.C.T. RESULTS: N/A February 17, [address] PERFORMED: No IV SITE: Ambulatory: A peripheral IV was started in the Left antecubital site with a Angio cath: 24gauge. POST EXAM PIV STATUS: Discontinued PROCEDURE TYPE: NM INJECT: PET/CT BODY SCAN. 6.1 mCi F18 FDG. No other medications given.. ADMINISTRATION TIME: 1350 PATIENT DISCHARGED TO: Ambulatory patient, left NM department area. A Diagnostic radioactive procedure has taken place, with no further precautions necessary other than routine body substance precautions. More information regarding radiation safety can be found usingthis link: [email or web address] SIGNATURE: RT Wayne(Maribel) PATIENT NAME: Rosita Kennedy DATE: February 17, 2023 TIME: 1:53 PM PAGER/CONTACT #: documented in this encounterTrinity Health System04-27-2023 History of Present illness Narrative* Wanda Blum Population Health Navigator - 12/24/2022 11:07 AM EDT POPULATION HEALTH NAVIGATION OUTREACH Action/FYI HCC gaps- Diagnosis with HCC gap left: I82.502 - Chronic deep vein thrombosis (DVT) of left lower extremity (HCC) - [id number] Last Billed 10/28/2021 G35 - Multiple sclerosis (HCC) - [id number] Last Billed 07/07/2022 Outcome- lvm/sent mychart to schedule follow up appt with pcp or annual wellness. Had appt scheduled in october for 3 month follow up but patient cancelled. Last pcp visit- 08-28-22 w/business continuity manager No future appt scheduled Also due/discuss- mammogram - ordered Patient Identified by Name and : NO Outreach Outcome/Action Unable to reach patient: Left message MyChart message sent Did you use a PCP flex slot to schedule this appointment? N/A Reason for Outreach HCC or suspected condition Payer: Payor: [employer] MEDICARE / Plan: [employer] MEDICARE PPO / Product Type: PPO / Care Gap Reviewed:: Annual Wellness visit Follow-up appointment Breast Cancer screening Reminder: Reminder note to check Health Maintenance for items below Health Maintenance items due: DTAP,TDAP,TD(1 - Tdap) Never done PNEUMOCOCCAL: 67+(2 - PCV) due on 06/11/2016 ADVANCE DIRECTIVE DISCUSSION Never done DEPRESSION ASSESSMENT due on 08/30/2022 MAMMOGRAM due on 10/30/2022 Navigation Signature: Wanda Blum Population Health Navigator December 24, 2022 11:07 AM documented in this encounterTrinity Health System04-17-2023 Miscellaneous Notes* Telephone Encounter - Cami Baez RN - 12/14/2022 11:27 AM EDT Pt's son calling in to report Rosita tested positive for COVID on 11/12/2022 and has had right arm/shoulder soreness for the last 4-5 days not related to any activity. documented in this encounterTrinity Health System04-10-2023 Miscellaneous Notes* Telephone Encounter - Henry Donovan RN - 12/07/2022 11:55 AM EDT Called patient to follow up on on to either pursue treatment or monitor with repeat Pet scan. Patient reports that she discussed with her family and they decided to hold off on treatment and wait to see what next pet scan. Offered to make these appointments for her but states she aready let our team know and Pet with follow up Dr Wu OV was already made. Will update team. documented in this encounterTrinity Health System04-03-2023 NoteHNO ID: [id number] Author: Henry Donovan RN Service: ? Author Type: Registered Nurse Type: Progress Notes Filed: 11/30/2022 8:36 AM Note Text: Late entry. Patient seen during her OV with Dr Wu on Wednesday11-28-31 Discussed ,in detail, several treatment options Dr Wu offered patient. Educated on single agent avastin, single agent doxil, keytruda/lenvima. Dr Wu also offered to monitor and obtain another pet in January. Provided written handouts on all drugs. All questions answered to patient/sons verbalized understanding. Patient and son would like to discuss with the rest of the family and will call this technical writer and editor with her decision.[facility] [id number] History of Present illness Narrative* Henry Donovan RN - 11/30/2022 8:30 AM EDT Late entry. Patient seen during her OV with Dr Wu on Wednesday11-28-31 Discussed ,in detail, several treatment options Dr Wu offered patient. Educated on single agent avastin, single agent doxil, keytruda/lenvima. Dr Wu also offered to monitor and obtain another pet in January. Provided written handouts on all drugs. All questions answered to patient/sons verbalized understanding. Patient and son would like to discuss with the rest of the family and will call this technical writer and editor with her decision. documented in this encounterTrinity Health System03-31-2023 NoteHNO ID: [id number] Author: Joseluis Perez MD Service: ? 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 MMR normal. Now with recurrence. HISTORY TO DATE: 1. Initital presentation: Saw Skylar Ackerman CNP for complaints of PMB, 5 day history. On 07/25/2014 had a EMB that showed Well differentiated endometrioid adenocarcinoma, FIGO grade 1. HNPCC screening negative 2. 09/12/2014 Surgery: Single-port total laparoscopic hysterectomy with bilateral salpingo-oophorectomy, bilateral pelvic lymphadenectomy, bilateral periaortic lymphadenectomy and cystoscopy 3.) 10/03/14 Consult to rad onc: RT deferred 4.) 10/26/2016: Lymphatic recurrence in left neck right retrocaval, bilateral pelvis 5.) 12/03/2016: Lymph node FNA: Positive for malignant cells. Adenocarcinoma 6.) 12/10/2016-04/01/2017: Chemo - Carbo/Taxol x 6 cycles 7.) 05/2017: Radiation - RT to left supraclavicular region, retroperitoneal/pelvic node region 8.) 02/2018: Right retrorenal LN met not amenable to SRS or removal. Pt declined cytotoxic therapy ER 50%, NV negative 9). 03/31/2018 - 03/16/2019: Letrozole started. Everolimus added 06/23/2018 due to progression. Treatment discontinued 03/16/2019 due to disease progression (confirmed 03/06/2019). Patient elected treatment holiday. 10.)08/2018: PE, IVC filter placement 11.) 01/01/2022: [facility]. Recommended RT (vs systemic chemotherapy) for management of hypermetabolic aortocaval lymphadenopathy (12/15 CT and 12/22 PET). Patient would prefer treatment in [place], [place]. 12). 01/05/2022: Consult with Rad/Onc (Dr. Solorio in [place]). Per family, RT was not recommended due to concerns with risk of damage to bowels and kidney given the lymph node location. 13). 02/24/2022 - 03/03/2022: Radiation Therapy (SBRT) - The Aortocaval LNs PTV received a total dose of 2400 cGy in 3 fractions 14) 09/03/2022 - 09/07/2022: Hospital admission: TCU resident for debility, RY, dehydration, UTI, extensive RLE DVT. 09/07/2022 Admitted to [facility] for heparin drip secondary to DVT 15) 09/08/2022-07/2023 Dr. Schaefer performed thrombectomy, balloon angioplasty of right lower extremity DVT. 09/10/2022 IVC venogram, percutaneous thrombectomy IVC, bilateral common and external arteries angioplasty, IVUS. Date of last follow up: 06/19/22 [facility] Genetics Consultation/Testing Consultation: No Genetic Testing: No Molecular testing: Yes - CARCATHIE testing Date of testin12/22/2016 Results: below TUMOR BOARD 01/13/2022: Tumor Board Management Options: - Radiation oncology consultation for discussion of SBRT. - Recommend systemic treatment with pembrolizumab/lenvima. PAST MEDICAL HISTORY Diagnosis Date Cataracts, bilateral COAG (chronic open-angle glaucoma) CRVO (central retinal vein occlusion) Disorder of bone and cartilage, unspecified Multiple sclerosis (HCC) 2001 remission currently Pseudophakia, both eyes Pyelonephritis, unspecified 01/2010 Pyelonephritis Uterine cancer (HCC) 08/08/2014 PAST SURGICAL HISTORY Procedure Laterality Date DELIVERY ONLY , low cervical X3 COLONOSCOPY 05/18/2016 Dr. Gibbs. no bx taken COLONOSCOPY, GI 1998, 2009 EYE SURGERY PROCEDURE Left 04/11/2021 Xen Gel stent EYLEA (AFLIBERCEPT) 2MG INTRAVITREAL INJECTION OD (RIGHT EYE) Right 04/02/2016 #7 INSERT ANT SEGMENT DRAIN INT 11/21/2014 iStent Implantation Left Eye LIG/TRNSXJ FLP TUBE ABDL/VAG APPR UNI/BI 1976 PAST SURGICAL HISTORY OF right EYE SURGERY AGE 7 PAST SURGICAL HISTORY OF Right 11/06/2020 Xen Gel PULMONARY FUNCTION TEST 06/07/03 XCAPSL CTRC RMVL INSJ IO LENS PROSTH W/O ECP 11/21/2014 Cataract Extraction with PC IOL/Femtosecond Laser Left Eye Family History Problem Relation Age of Onset Breast Cancer Sister Glaucoma Sister Heart Father mi Diabetes Father Hypertension Mother Alzheimer's Disease Mother Macular Degen Mother Glaucoma Mother Macular Degen Maternal Grandmother PATHOLOGY 09/12/14 Staging Moderately differentiated endometrioid adenocarcinoma, FIGO grade 2. myometiral invasion (2 mm out of 16 mm) TUMOR SIZE: 2.8 cm LYMPH-VASCULAR INVASION: Not identified Nodes negative 11/26/2016 ESTROGEN/PROGESTERONE RECEPTOR (ER/NV) ANALYSIS Estrogen receptors immunostain appears weakly to moderately positive in 30% of cell nuclei. Progesterone receptors immunostain appears moderately positive in 50% of cell nuclei. 2016 BIOPSY- CT-guided percutaneous biopsy of retroperitoneal lymph node Right lower back retroperitoneal lymph node, biopsy Metastatic carcinoma consistent with endometrial primary. Keratin AE1/AE3 and PAX8 are positive, consistent with the above interpretation. Neal Mckinney, Catrachita (more content not included)... [facility] [id number] History of Present illness Narrative* Joseluis Perez MD - 2022 3:15 PM EDT Images from the original note were not included. 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 MMRnormal. Now with recurrence. HISTORY TO DATE: 1. Initital presentation: Saw Skylar Ackerman CNP for complaints of PMB, 5 day history. On 07/25/2014 had a EMB that showed Well differentiated endometrioid adenocarcinoma, FIGO grade 1. HNPCC screening negative 2. 09/12/2014 Surgery: Single-port total laparoscopic hysterectomy with bilateral salpingo-oophorectomy, bilateral pelvic lymphadenectomy, bilateral periaortic lymphadenectomy and cystoscopy 3.) 10/03/14 Consult to rad onc: RT deferred 4.) 10/26/2016: Lymphatic recurrence in left neck right retrocaval, bilateral pelvis 5.) 12/03/2016: Lymph node FNA: Positive for malignant cells. Adenocarcinoma 6.) 12/10/2016-04/01/2017: Chemo - Carbo/Taxol x 6 cycles 7.) 05/2017: Radiation - RT to left supraclavicular region, retroperitoneal/pelvic node region 8.) 02/2018: Right retrorenal LN met not amenable to SRS or removal. Pt declined cytotoxic therapy ER 50%, NV negative 9). 03/31/2018 - 03/16/2019: Letrozole started. Everolimus added 06/23/2018 due to progression. Treatment discontinued 03/16/2019 due to disease progression (confirmed 03/06/2019). Patient elected treatment holiday. 10.)08/2018: PE, IVC filter placement 11.) [facility] Recommended RT (vs systemic chemotherapy) for management of hypermetabolic aortocaval lymphadenopathy (12/15 CT and 12/22 PET). Patient would prefer treatment in [place], [place]. 12). 01/05/2022: Consult with Rad/Onc (Dr. Solorio in [place]). Per family, RT was not recommended due toconcerns with risk of damage to bowels and kidney given the lymph node location. 13). 02/24/2022 - 03/03/2022: Radiation Therapy (SBRT) - The Aortocaval LNs PTV received a total doseof 2400 cGy in 3 fractions 14) 09/03/2022 - 09/07/2022: Hospital admission: TCU resident for debility, RY, dehydration, UTI, extensive RLE DVT. 09/07/2022 Admitted to [facility] for heparin drip secondary to DVT 15) 09/08/2022-07/2023 Dr. Schaefer performed thrombectomy, balloon angioplasty of right lower extremity DVT. 09/10/2022 IVC venogram, percutaneous thrombectomy IVC, bilateral common and external arteries angioplasty, IVUS. Date of last follow up: 06/19/22 [facility] Genetics Consultation/Testing Consultation: No Genetic Testing: No Molecular testing: Yes - CARIS testing Date of testin12/22/2016 Results: below TUMOR BOARD 01/13/2022: Tumor Board Management Options: - Radiation oncology consultation for discussion of SBRT. - Recommend systemic treatment with pembrolizumab/lenvima. PAST MEDICAL HISTORY Diagnosis Date Cataracts, bilateral COAG (chronic open-angle glaucoma) CRVO (central retinal vein occlusion) Disorder of bone and cartilage, unspecified Multiple sclerosis (HCC) 2001 remission currently Pseudophakia, both eyes Pyelonephritis, unspecified 01/2010 Pyelonephritis Uterine cancer (HCC) 08/08/2014 PAST SURGICAL HISTORY Procedure Laterality Date DELIVERY ONLY , low cervical X3 COLONOSCOPY 05/18/2016 Dr. Gibbs. no bx taken COLONOSCOPY, GI 1998, 2009 EYE SURGERY PROCEDURE Left 04/11/2021 Xen Gel stent EYLEA (AFLIBERCEPT) 2MG INTRAVITREAL INJECTION OD (RIGHT EYE) Right 04/02/2016 #7 INSERT ANT SEGMENT DRAIN INT 11/21/2014 iStent Implantation Left Eye LIG/TRNSXJ FLP TUBE ABDL/VAG APPR UNI/BI 1976 PAST SURGICAL HISTORY OF right EYE SURGERY AGE 7 PAST SURGICAL HISTORY OF Right 11/06/2020 Xen Gel PULMONARY FUNCTION TEST 06/07/03 XCAPSL CTRC RMVL INSJ IO LENS PROSTH W/O ECP 11/21/2014 Cataract Extraction with PC IOL/Femtosecond Laser Left Eye Family History Problem Relation Age of Onset Breast Cancer Sister Glaucoma Sister Heart Father mi Diabetes Father Hypertension Mother Alzheimer's Disease Mother Macular Degen Mother Glaucoma Mother Macular Degen Maternal Grandmother PATHOLOGY 09/12/14 Staging Moderately differentiated endometrioid adenocarcinoma, FIGO grade 2. myometiral invasion (2 mm out of 16 mm) TUMOR SIZE: 2.8 cm LYMPH-VASCULAR INVASION: Not identified Nodes negative 11/26/2016 ESTROGEN/PROGESTERONE RECEPTOR (ER/NV) ANALYSIS Estrogen receptors immunostain appears weakly to moderately positive in 30% of cell nuclei. Progesterone receptors immunostain appears moderately positive in 50% of cell nuclei. 2016 BIOPSY- CT-guided percutaneous biopsy of retroperitoneal lymph node Right lower back retroperitoneal lymph node, biopsy Metastatic carcinoma consistent with endometrial primary. Keratin AE1/AE3 and PAX8 are positive, consistent with the above interpretation. Drs. Mathews, Neal, Catrachita and Mehnaz concur with the interpretation. Estrogen receptor is positive (50% of tumor cells) and progesterone receptor is negative (0% of tumor cells). 12/03/2016 Lymph node FNA: Positive for malignant cells. Adenocarcinoma (see comment). TUMOR MARKERS: CA 125 (U/mL) Date Value 10/22/2021 31 06/06/2021 33 2020 33 01/09/2020 31 10/03/2019 27 06/21/2019 29 03/06/2019 41 02/02/2019 42 12/07/2018 48 11/07/2018 37 10/10/2018 38 07/05/2017 24 04/08/2017 24 03/18/2017 29 02/08/2017 31 02/04/2017 29 01/14/2017 34 08/09/2014 25 No results found for: CA199 RECENT IMAGIN04/16/2020 CT Chest IMPRESSION: Stable lung nodules and nodular density in the right apex. No new nodules identified. No CT evidence of lymphadenopathy in the chest 04/16/2020 CT Abd/Pel IMPRESSION: Basically unchanged aortocaval lymphadenopathy. Large amount of stool and gas in the large bowel loops 11/19/2020 CT Chest/Abd/Pel IMPRESSION: Stable right apical nodular density and a few tiny left lung nodules. No new nodules identified. No CT evidence of lymphadenopathy in the chest. IMPRESSION: Stable enlarged aortocaval lymph node, previously biopsied and compatible with metastatic endometrial cancer. No new site of metastatic disease in the abdomen and pelvis. 06/06/2021 CT CHEST IMPRESSION: Possible new area of nodularity in the right upper lobe which measures 3 mm in transverse. Close attention on interval follow-up may be helpful. Otherwise, stable appearing pulmonary nodularity. Additional findings noted above. 06/06/2021 CT ABD/PEL IMPRESSION: 1. Enlarged aortocaval lymph node appears unchanged in size compared to the prior study. 2. No new metastatic lesions in the abdomen or pelvis 11/12/2021 CT Abd/Pel IMPRESSION: 1. Enlarged aortocaval node measuring approximately 3.4 x 3.4 cm, previously 3.2 x 2.6 cm. 2. T10 vertebral body compression fracture with approximately 90% height loss is new from prior. 3. Findings suggestive of constipation. 4. Minimal right-sided pelviectasis and urothelial enhancement involving the right renal pelvis. Consider correlation with urinalysis. 12/15/2021 CT Chest IMPRESSION: 1. Subcentimeter irregular density in the right upper lobe, unchanged in size and configuration. 2. Persistent elevation/eventration of the right hemidiaphragm, with associated lower lung atelectasis. 3. Tiny nodular densities along the anterior aspect of the trachea unchanged. 4. No CT evidence of lymphadenopathy in the chest. 5. T10 vertebral body compression deformity/age indeterminate fracture. 12/15/2021 CT Abd/Pel IMPRESSION: 1. Stable to minimal interval increase in size of pathologic aortocaval lymph node. 2. No new or enlarging lymphadenopathy or mass identified. 3. Stable severe T10 vertebral body compression fracture. 12/22/2021 PET/CT IMPRESSION: 1. NECK: No FDG avid neoplastic process. No hypermetabolic mass, adenopathy, or fluid collection. 2. CHEST: No FDG avid neoplastic process. No hypermetabolic mass, adenopathy, or fluid collection. 3. ABDOMEN/PELVIS: Hypermetabolic aortocaval lymphadenopathy. No hypermetabolic mass or fluid collection. 4. EXTREMITIES/SKELETON: No suspicious FDG avid osseous process. 06/12/2022 PET/CT IMPRESSION: 1. NECK: * No FDG avid neoplastic process.. 2. CHEST: * No FDG avid neoplastic process.. 3. ABDOMEN/PELVIS: * Significantly decreased size and hypermetabolism of aortocaval/retrocaval lymphadenopathy. There is residual retrocaval soft tissue thickening without focal hypermetabolism suggest treatment related changes.. * No new FDG avid neoplastic process. 4. EXTREMITIES/SKELETON: * No FDG avid neoplastic process.. 11/04/2022 PET/CT IMPRESSION: 1. Neck: No suspicious hypermetabolic foci 2. Chest: No evidence of FDG avid neoplastic process 3. Abdomen and pelvis: Few new mildly hypermetabolic retrocrural lymph nodes suspicious for metastases. 4. Skeleton: No hypermetabolic osseous lesions HEALTH MAINTENANCE: Last mammogram: 10/30/2021 - negative Last colonoscopy: 02/24/2019 Last Pap: 02/10/2018 - Negative Last HPV: 04/09/2016 - Negative ECOG Performance Status: 0- Fully active, able to carry on all pre-disease performance w/o restriction. SUBJECTIVE: Rosita Kennedy reports that she feels okay. No vaginal bleeding or discharge. No shortness of breath, cough, or chest pain. No abdominal pain, nausea, vomiting, diarrhea, or constipation. No dysuria, gross hematuria, urinary frequency, urinary urgency, or incontinence. Her ECOG performance status is 1 (restricted in physically strenuous activity but ambulatory and able to carry out work of a light or sedentary nature). Since her last visit, she was hospitalized in August 2022 for surgical management of an extensive RLE DVT. Since, she has been working with PT and OT at home for further rehabilitation. OBJECTIVE: VITALS: BP 139/63 Pulse 83 Temp 98.1 Resp 15 Wt 114 lb 6.4 oz (51.9kg) GENERAL: alert, oriented, pleasant, and cooperative. HEENT: Normocephalic, atraumatic, mucus membranes moist, and no lesions. NECK: Supple, ASSESSMENT: 1. 77 yo stage IA FIGO 2 endometrial cancer, negative LVSI and negative nodes. MMR nl (verified) *Lymphatic recurrence L neck, R retrocaval, bilateral pelvis 2016 *s/p CT x 6 12/10/2016 - 04/01/2017 *s/p RT c 06/07/2017 *PE IVC filter 08/2018 *Recurrence - Aortocaval lymphadenopathy 12/2021 *S/p SBRT w Dr. Daniel bowles 03/03/2022 *Retrocrural lymph nodes suspicious for metastases 10/2022 *PMHx: Multiple sclerosis *RLE DVT 08/2022 - on Xarelto PLAN: - Rosita presents for follow up visit with her adult son Rivera. She was hospitalized in August 2022 for management of an extensive RLE DVT. She underwent RLE thrombectomy and IVC filter blood clot removal with Dr. Schaefer and was admitted to TCU with debility. Since her discharge, she has been working with PT ad OT for rehabilitation. - We reviewed and discussed her recent PET/CT from 11/04/2022. Results showed few new mildly hypermetabolic retrocrural lymph nodes suspicious for metastases. Prior PET/CT from 05/2022 showed significantly decreased size and hypermetabolism of aortocaval/retrocaval lymphadenopathy after the radiation; however, there was still evidence of residual retrocaval soft tissue thickening. Discussed that although the level of activity in this area is higher now compared to in 05/2022, the relative activity now is still mild- (SUV 3.6) . Discussedthe option to pursue active treatment now vs observation for 3 months and repeating a PET/CT at that time before making a decision on whether or not to pursue active treatment. Should she opt for active treatment, I recommended considering systemic therapy over re-irradiation given the location although this can be considered. Briefly discussed options for systemic therapy with Keytruda/Lenvima, Doxil or avastin. Although an immunotherapy based regimen will likely have the most efficacy, it maynot be as well tolerated due to the side effects associated with the Lenvima. - Given her recent DVT history requiring admission and rehabilitation, I believe it would be reasonable for her to hold off on pursuing immediate cancer treatment until her strength and condition improves. She opts to hold off on starting any treatment at this time. All information provided regarding treatment patient and family will be considering options - plan repeat PET/CT in 2-3 months. Medical Decision Making: Problems: Moderate: 1+ chronic illnesses with change and Acute complicated injury Data: Unique test result(s) reviewed: 2 Risk: Moderate: Moderate risk from testing/treatment Medical Decision Making Level: 4 - Moderate Aimee Murguia, attest that I personally scribed for Dr. Joseluis Perez MD and that the documentation was captured in collaboration with Dr. Joseluis Perez MD. Provider Attestation: Joseluis Murguia MD, personally performed the services described in this documentation. All medical record entries made by the scribe were at my direction and in my presence. I have reviewed the chart and discharge instructions (if applicable) and agree that the record reflects my personal performance and is accurate and complete. Joseluis Perez MD documented in this encounterTrinity Health System03-08-2023 NoteHNO ID: [id number] Author: RT Marcel(R) Service: Nuclear Medicine Author Type: Technologist Type: Progress Notes Filed: 11/04/2022 2:00 PM Note Text: RADIOLOGY SERVICE PROGRESS NOTE SERVICE DATE: 11/04/2022 SERVICE TIME: 1:59 PM PATIENT IDENTITY VERIFICATION COMPLETED USING TWO (2) STANDARD IDENTIFIERS: Name and Date of confirmed by patient verbally FALL SCREENING: Has the patient had 2 falls in the last year or 1 fall with injury or currently using an Ambulatory Assistive Device (Walker, Cane, Wheelchair, Crutches, etc.)? No PATIENT GENDER DATA: .female ALLERGIES: Reviewed and unchanged MEDICATIONS REVIEWED: No PATIENT RELEVANT IMPLANT DATA REVIEWED: Not Applicable CREATININE: Creatinine Date Value Ref Range Status 08/28/2022 1.69 (H) 0.58 - 0.96 mg/dL Final 08/03/2022 1.07 (H) 0.58 - 0.96 mg/dL Final 04/14/2022 0.97 (H) 0.58 - 0.96 mg/dL Final Estimated Glomerular Filtration Rate Date Value Ref Range Status 08/28/2022 32 (L) >=60 mL/min/1.73m? Final Comment: Estimated Glomerular Filtration Rate (eGFR) is calculated using the 2020 CKD-EPI creatinine equation. This equation utilizes serum creatinine, sex, and age as parameters. The creatinine assay has traceable calibration to isotope dilution-mass spectrometry. Refer to KDIGO guidelines for clinical interpretation. In patients with unstable renal function, e.g. those with acute kidney injury, the eGFR may not accurately reflect actual GFR. eGFR- Date Value Ref Range Status 10/22/2021 >60 Final P.O.C.T. RESULTS: N/A November 04, [address] PERFORMED: No IV SITE: Ambulatory: A peripheral IV was started in the Left antecubital site with a Angio cath: 24 gauge. POST EXAM PIV STATUS: Discontinued PROCEDURE TYPE: NM INJECT: PET/CT BODY SCAN. 6.9 mCi F18 FDG. No other medications given.. ADMINISTRATION TIME: 13:46 PATIENT DISCHARGED TO: Ambulatory patient, left NM department area. A Diagnostic radioactive procedure has taken place, with no further precautions necessary other than routine body substance precautions. More information regarding radiation safety can be found using this link: [email or web address] SIGNATURE: RT Marcel(R) PATIENT NAME: Rosita Kennedy DATE: November 04, 2022 TIME: 1:59 PM PAGER/CONTACT #:[facility] [phone] Miscellaneous Notes* Telephone Encounter - Rosmery Horn MD - 09/22/2022 4:54 PM EST Noted and agree. Regards, Rosmery Horn MD * Telephone Encounter - Darlin Marshall RN - 09/22/2022 3:44 PM EST Daniel PT calling from [facility] to report plan of care for patient and PT will visit patient 1 time a week for first week, 2 times a week for 2 weeks, and 1 time a week for 2 weeks following discharge home from [facility] TCU after DVT and IVC filter placement. Darlin Marshall RN documented in this encounterTrinity Health System01-18-[address] Min [facility] September 16, 2022 7:14pm Note Date/Time September 16, 2022 7 :07pm [facility] Medical Records Department [address] [place] [address] Discharge Summary 09/16/22 1905 MR#: [id number] Acct: [id number] Name: ROSITA KENNEDY Rep #:[id number] : 1945 76 From: Bernardino Min MD PCP: Rosmery Horn MD Status:ADM IN Location: [place] [address] Providers Date of Admission: 09/11/22 Primary Care Physician: Rosmery Horn MD Reason For Visit: THROMBECTOMY Diagnosis Discharge Diagnosis (1) Debility: Status: Acute Code(s): R53.81 - Other malaise (2) Weakness: Status: Acute Code(s): R53.1 - Weakness (3) Deep vein thrombosis, lower right extremity: Status: Acute Code(s): I82.401 - Acute embolism and thrombosis of unspecified deep veins of right lowerextremity (4) Hyperlipidemia: Status: Acute Code(s): E78.5 - Hyperlipidemia, unspecified (5) Glaucoma: Status: Acute Code(s): H40.9 - Unspecified glaucoma (6) Hypothyroidism: Status: Acute Code(s): E03.9 - Hypothyroidism, unspecified (7) Recurrent urinary tract infection: Status: Acute Code(s): N39.0 - Urinary tract infection, site not specified (8) Depression: Status: Acute Code(s): F32.A - Depression, unspecified (9) Nausea: Status: Acute Code(s): R11.0 - Nausea (10) Hypokalemia: Status: Acute Code(s): E87.6 - Hypokalemia (11) Vitamin D deficiency: Status: Acute Code(s): E55.9 - Vitamin D deficiency, unspecified Plan 76 year old female with below past medical history hospitalized for right lower extremity thrombectomy, IVC filter blood clot removal, admitted to TCU with debility, here for rehabilitation, strengthening, prior to discharge home alone. * Debility - PT/OT. * Pain - Tylenol 1000mg q6h prn pain (1-10). * Bowel - Miralax 17gm daily, senna/colace 2 tablets bid. * Adult immunization - Administer pneumonia vaccine, covid19 vaccine, flu vaccine as appropriate. * DVT prophylaxis - Not necessary, on Xarelto. * Hyperlipidemia - Atorvastatin 40mg qhs. * Glaucoma - Brimonidine 0.2% 2gtt od bid, Latanoprost 0.005% 1gtt ou qhs. * Nutrition - Ensure Plus 120ml 4x/day, MVI daily. * Hypothyroidism - Levothyroxine 25mcg daily. * Skin irritation - Calmoseptine topical bid. * Recurrent UTI - Methenamine 1gm bid. * Depression - Sertraline 125mg daily, Mirtazapine 15mg qhs, stable chronic prison use, GDR not recommended. * Nausea - Zofran 8mg q8h prn. * Hypokalemia - KCL 10meq daily. * Vitamin D deficiency - D3 25mcg daily. * Extensive right lower extremity DVT:? Xarelto 15mg bid thru 10/02/2022, then 20mg daily. Medications at Discharge Home Medications atorvastatin 10 mg tablet 40 mg PO QHS cholesterol lowering 09/08/18 cholecalciferol (vitamin D3) 25 mcg (1,000 unit) tablet (Vitamin D3) 1,000 unit PO DAILY supplement 09/08/18 multivitamin with folic acid 400 mcg tablet (Thera) 1 tab PO DAILY supplement 09/08/18 ondansetron HCl 8 mg tablet 8 mg PO Q8H PRN PRN Nausea 09/08/18 sertraline 100 mg tablet 125 mg PO DAILY mental health 09/08/18 brimonidine 0.2 % eye drops 2 drp RIGHT EYE TID glaucoma 08/31/22 levothyroxine 25 mcg tablet 25 mcg PO DAILY thyroid 08/31/22 methenamine hippurate 1 gram tablet 1 g PO BID Bladder 08/31/22 mirtazapine 15 mg tablet 15 mg PO QHS sleep 08/31/22 polyethylene glycol 3350 17 gram/dose oral powder (Miralax) 17 g PO DAILY constipation 08/31/22 potassium chloride 10 mEq tablet,extended release 10 meq PO DAILY supplement 08/31/22 acetaminophen 500 mg tablet 1,000 mg PO Q6H PRN PRN Pain Score 1-10 #0 tabs 09/07/22 latanoprost 0.005 % eye drops 1 drp EACH EYE Eye health 09/11/22 rivaroxaban 15 mg tablet (Xarelto) 15 mg PO BIDCM 14 days #28 tabs 09/16/22 rivaroxaban 20 mg tablet (Xarelto) 20 mg PO DINNER 30 days #30 tabs 09/16/22 Hospital Course Operations - (See below.) Procedures None Summary of Care Provided Minutes Spent on Discharge: 35 Hospital Course: 76 year old female with below past medical history hospitalized for right lower extremity thrombectomy, IVC filter blood clot removal, admitted to TCU with debility, here for rehabilitation, strengthening, prior to discharge home alone. Discharge home alone 09/19/2022, Home Health Care PT/OT/ST/GRACE. Physical Exam Const alert General Appearance: cooperative HEENT normocephalic Eyes PERRL and EOMs intact bilaterally Neck supple, no JVD and no carotid bruits Resp normal respiratory effort, normal air movement and clear to auscultation bilaterally Cardio regular rate and regular rhythm GI normal to inspection, nondistended, normoactive bowel sounds, non-tender and non-distended Extremity normal capillary refill General Extremity: Negative for edema Skin no rashes or lesions noted General Skin Exam: no breakdown Psych affect normal Appearance: appropriate Medical Records Data Medical Nutrition Assessment Dietitian: Malnutrition Criteria Met Start: 09/14/22 13:46 Freq: Status: Active Protocol: Document 09/16/22 11:06 NATALY (Rec: 09/16/22 11:07 [facility] [id number]) Nutrition Malnutrition Evidence of Malnutrition Exists Yes Malnutrition (moderate): Acute Illness/Injury Evidenced By Suboptimal Energy Intake ( Moderate),Physical Changes ( Moderate) Clinical Problem Acute Disease or Injury Related Malnutrition Etiology related to ongoing illness and recent surgery and inability to consume adequate nutrition to meet est nutritional needs Signs/Symptoms as evidenced by variable ( mostly <50%) po intake at meals and fat/muscle loss to face, clavicles and arms. Status Active Problem Recommendation Dietitian Recommendations/Changes Will continue liberal regular diet w/ fortified foods d/t signs and symptoms of malnutrition Will continue 120 ml ensure plus high protein 4x/day w/ medpass for increased nutrition if consumed. Weight / BMI Weight Weight: 52.707 kg Body Mass Index (BMI) 23.4 ABG / Lab / Microbiology Data Result Diagrams: 09/15/22 05:13 09/12/22 08:21 Microbiology: Microbiology 09/14/22 08:51 Urine Catheter - Catheter Urine Culture - Final Culture exhibits no growth. 09/15/22 06:00 Nasal Secretion SARS-CoV-2 Antigen (Rapid) - Final 09/13/22 05:49 Nasal Secretion SARS-CoV-2 Antigen (Rapid) - Final D/C Instructions Discharge Diet: No restrictions Discharge Activity: Return to Normal Activity, May Shower and Use Walker Weight Bearing Status: Weight bearing as tolerated Call your doctor if you observe: Fever of 101 or Higher, Inability to urinate, Inability to have a bowel movement, Shortness of breath, Dizziness, Fainting spells, Swelling in the ankles, Chest pain and Uncontrolled pain Additional Instructions: Discharge home alone 09/19/2022, Home Health Care PT/OT/ST/GRACE. Meaningful Use Info Meaningful Use Diagnoses (Choose all that apply): None applicable Discharge Plan Admission Admit Date/Time: 09/11/22 19:30 Primary Reason for Your Visit: Debility. Attending Provider: Bernardino Min Chi Primary Care Provider: Rosmery Horn Instructions Additional Instructions / Restrictions: Discharge home alone 09/19/2022, Home Health Care PT/OT/ST/GRACE. Discharge Orders/Prescriptions Prescriptions: New Xarelto 15 mg Tablet 15 mg PO BIDCM 14 Days Qty: 28 0RF Xarelto 20 mg Tablet 20 mg PO DINNER 30 Days Qty: 30 0RF Continued atorvastatin 10 MG tablet 40 mg PO QHS ondansetron HCl 8 MG tablet 8 mg PO Q8H PRN PRN (Reason: Nausea) Label Comments: TAKE 1 TABLET BY MOUTH EVERY 8 HOURS NEEDED FOR NAUSEA/VOMITING. sertraline 100 MG tablet 125 mg PO DAILY Label Comments: TAKE 1 TABLET BY MOUTH EVERY DAY cholecalciferol (vitamin D3) [Vitamin D3] 1,000 UNIT tablet 1,000 unit PO DAILY multivitamin with folic acid [Thera] 1 TABLET tablet 1 tab PO DAILY potassium chloride 10 mEq tablet extended release 10 meq PO DAILY levothyroxine 25 mcg tablet 25 mcg PO DAILY methenamine hippurate 1 gram tablet 1 g PO BID Label Comments: TAKE 1 TABLET BY MOUTH TWICE A DAY WITH MEALS brimonidine 0.2 % drops 2 drp RIGHT EYE TID Label Comments: INSTILL 1 DROP INTO RIGHT EYE 3 TIMES A DAY mirtazapine 15 mg tablet 15 mg PO QHS Label Comments: 1 tablet by mouth once a day polyethylene glycol 3350 [Miralax] 17 gram/dose Powder 17 g PO DAILY acetaminophen 500 mg Tablet 1,000 mg PO Q6H PRN PRN (Reason: Pain Score 1-10) Qty: 0 0RF latanoprost 0.005 % drops 1 drp EACH EYE HS Discontinued sennosides-docusate sodium [Stool Softener-Stimulant Laxat] 8.6-50 mg tablet 2 tab PO BID Rx Instructions: Hold for diarrhea or bowel movement more than 3 times a day menthol-zinc oxide [Calmoseptine] 0.44-20.6 % ointment 1 applic topical BID@1000,2200 Protocol: *Topical Application Instructions APPLICATION INSTRUCTIONS: bilat buttocks Xarelto 15 mg tablet 15 mg PO BIDCM Referrals / Follow Up: Ethan Schaefer MD [Med Staff - Active Staff] - Rosmery Horn MD [Primary Care Provider] - ([address] [facility] [phone]) Disposition Disposition (needs filled in before D/C Order can be placed): Home Health Service 09/16/221913 <Electronically signed by Bernardino Min MD> Cosigner Signature (if applicable): CC: Rosmery Horn MD; Dr. Bernardino Min MD~ Signed [facility] Work Phone: 1(884) 558-374101-16-[address] Min [facility] September 14, 2022 11:37am Note Date/Time September 14, 2022 1 1:20am [facility] Medical Records Department [address] [place] [id number] Progress Note - Pharmacy 09/14/22 1058 MR#: [id number] Acct: [id number] Name: ROSITA KENNEDY Rep #:[id number] : 1945 76 From: Chantal Persaud PCP: Rosmery Horn MD Status:ADM IN Location: TCU TCU06-1 TCU RX Drug Regimen Review Subjective: TCU Admission. 76 YOF was on TCU 09/03/22-09/07/22 for debility, acute kidney injury, dehydration, urinary tract infection, extensive right lower extremity DVT. Admitted to the hospital for heparin gtt secondary to DVT. Hospitalized for right lower extremity thrombectomy, IVC filter blood clot removal with Dr. Schaefer. Admitted to TCU with debility for strengthening and rehabilitation. Objective: Allergies codeine Allergy (Verified 08/31/22 13:37) Hives methylprednisolone Allergy (Verified 08/31/22 13:37) Hives Sulfa (Sulfonamide Antibiotics) Allergy (Verified 08/31/22 13:37) Hives erythromycin base Adverse Reaction (Verified 08/31/22 13:37) Upset Stomach Current Medications Generic Name Dose Route Start Last Admin Trade Name Freq PRN Reason Stop Dose Admin Acetaminophen 1,000 mg 09/11/22 20:41 Acetaminophen 500 Mg Tablet PO Q6H PRN PRN Pain Score 1-10 Atorvastatin Calcium 40 mg 09/11/22 22:00 09/13/22 21:28 Atorvastatin Calcium 40 Mg Tablet PO 40 mg QHS BHUPINDER Administration Brimonidine Tartrate 2 drp 09/11/22 22:00 09/14/22 05:42 Brimonidine 0.2% 5ml Bottle RIGHT EYE 2 drp TID BHUPINDER Administration Calamine/Phenol 1 applic 09/11/22 22:00 09/14/22 08:08 Menthol/Lanolin/Calamine/Znox 113 Gm Tube TOPICAL 1 applic BID@1000,2200 BHUPINDER Administration Protocol Cholecalciferol 25 mcg 09/12/22 06:00 09/14/22 05:42 Cholecalciferol (Vit D3) 25 Mcg Tablet (1,000 Units) PO 25 mcg DAILY BHUPINDER Administration Latanoprost 1 drp 09/11/22 22:00 09/13/22 21:27 Latanoprost 0.005% 1 Bottle EACH EYE 1 drp HS BHUPINDER Administration Levothyroxine Sodium 25 mcg 09/12/22 06:00 09/14/22 05:45 Levothyroxine 25 Mcg Tablet PO 25 mcg DAILY BHUPINDER Administration Methenamine Hippurate 1 gm 09/12/22 06:00 09/14/22 05:45 Methenamine Hippurate 1 Gm Tablet PO 1 gm BID BHUPINDER Administration Mirtazapine 15 mg 09/11/22 22:00 09/13/22 21:28 Mirtazapine 15 Mg Tablet PO 15 mg QHS BHUPINDER Administration Multivitamins 1 tablet 09/12/22 08:00 09/14/22 08:07 Multivitamins,Therapeutic Tablet PO 1 tablet DAILYCM BHUPINDER Administration Nutritional Formula (Lactose Free) 120 ml 09/11/22 22:00 09/14/22 05:41 Ensure Plus High Protein 120 Ml Liquid PO 120 ml 4X/DAY BHUPINDER Administration Ondansetron HCl 8 mg 09/11/22 20:41 Ondansetron 8 Mg Tablet PO Q8H PRN PRN Nausea Polyethylene Glycol 17 gm 09/12/22 06:00 09/14/22 05:46 Polyethylene Glycol 3350 17 Gm Packet PO 17 gm DAILY BHUPINDER Administration Potassium Chloride 10 meq 09/12/22 08:00 09/14/22 08:07 Potassium Chloride Oral [facility] 10 [facility] Rivaroxaban 15 mg 09/12/22 08:00 09/13/22 17:05 Rivaroxaban 15 Mg Tablet PO 10/02/22 08:[facility] Rivaroxaban 20 mg 10/03/22 17:00 Rivaroxaban 20 Mg Tablet PO DINNER [facility] Senna/Docusate Sodium 2 tablet 09/12/22 06:00 09/14/22 05:45 Senna/Docusate Sodium 1 Tablet PO 2 tablet BID [facility] Administration Sertraline HCl 125 mg 09/12/22 06:00 09/14/22 05:44 Sertraline 100 Mg Tablet PO 125 mg DAILY [facility] Administration Sodium Chloride 10 - 40 ml 09/11/22 20:21 0.9% Saline Lock 10 Ml Syringe IV UD PRN SALINE FLUSH Tuberculin PPD 0.1 ml 09/19/22 10:00 Tuberculin,Purif.Prot.Deriv. 50 Tu/Ml Vial ID 09/19/22 10:01 X1 ONE Problem List (Last Reviewed 09/11/22 @ 21:[address] Bernardino Min MD) Vitamin D deficiency (Acute) Hypokalemia (Acute) Nausea (Acute) Depression (Acute) Recurrent urinary tract infection (Acute) Hypothyroidism (Acute) Glaucoma (Acute) Hyperlipidemia (Acute) Deep vein thrombosis, lower right extremity (Acute) Weakness (Acute) Debility (Acute) Vital Signs Temp Pulse Resp BP Pulse Ox O2 Del Method 97.9 F 87 14 120/54 L 98 Room Air 09/13/22 14:00 09/13/22 14:00 09/13/22 14:00 09/13/22 14:00 09/13/22 14:00 09/13/22 14:00 Oxygen Delivery Method Room Air Weight: 54.386 kg Body Mass Index (BMI) 23.4 Sodium 139 mmol/L (136-145) 09/12/22 08:21 Potassium 3.7 mmol/L (3.5-5.1) 09/12/22 08:21 Chloride 104 mmol/L (98-107) 09/12/22 08:21 Carbon Dioxide 25.0 mmol/L (21.0-32.0) 09/12/22 08:21 Anion Gap 10 (5-15) 09/12/22 08:21 BUN 12 mg/dL (7-18) 09/12/22 08:21 Creatinine 0.78 mg/dL (0.55-1.02) 09/12/22 08:21 Est GFR (MDRD) Af Amer 92 mL/min (>60) 09/12/22 08:21 Est GFR (MDRD) Non-Af 76 mL/min (>60) 09/12/22 08:21 BUN/Creatinine Ratio 15.3 RATIO (10-20) 09/12/22 08:21 Glucose 126 mg/dL (74-106) H 09/12/22 08:21 Assessment/Plan: 1. Pain: acetaminophen 1000mg PO Q6H PRN pain 1-10. Resident has not had any doses. Please continue to monitor for increased pain and PRN usage. 2. Bowel: Miralax 17gm PO daily and senna/docusate 2T PO BID. Please continue tomonitor for constipation. Last documented bowel movement from today. 3. Extensive RLE DVT: rivaroxaban 15mg PO BIDCM thru 10/02/22 (currently on hold until 09/17), then 20mg PO daily. Please continue to monitor for S/S of bleeding and hemoglobin (last 8g/dL). 4. Hyperlipidemia: atorvastatin 40mg PO QHS. Please consider ordering a lipid panel as this resident does not have one in the chart. Thanks. Please continue to monitor for muscle pain and LFTs (last 09/03/22). 5. Glaucoma: brimonidine 0.2% 2gtt OS BID and latanoprost 0.005% 1gtt OU QHS. Please continue to monitor for S/S of glaucoma and dry eyes. 6. Hypothyroidism: levothyroxine 25mcg PO daily. Please continue to monitor TSH (last 09/08/22) and S/S of hypo/hyperthyroidism. 7. Recurrent UTI: methenamine 1gm PO BID. Please continue to monitor for S/S of UTI. 8. Nausea: ondansetron 8mg PO Q8H PRN nausea. Please continue to monitor for nausea and PRN usage. Resident has not had any doses. 9. Hypokalemia: potassium chloride 10mEq PO daily. Please continue to monitor potassium level (last 3.7mmol/L). 10. Vitamin D deficiency/nutrition: cholecalciferol 25mcg PO daily and multivitamin 1T PO daily. Please consider ordering a vitamin D level. Resident does not have one in the chart. Thanks. Assessment/Plan for indications treated with psychotropic medications: 1. Depression: sertraline 125mg PO daily and mirtazapine 15mg PO QHS. Please seephysician note regarding GDR. Please continue to monitor for S/S of suicidal ideation (black box warning), falls/fractures (BEERs criteria medication), sodium (last 139mmol/L, BEERs critieria for hyponatremia), and weight gain. Medical chart and medication regimen reviewed. The following medication irregularities or issues were identified: *1. Atorvastatin 40mg PO QHS. Please consider ordering a lipid panel as this resident does not have one in the chart. Thanks. *2. Cholecalciferol 25mcg PO daily. Please consider ordering a vitamin D level. Resident does not have one in the chart. Thanks. Date of Note:: 09/14/22 09/14/22 1120 <Electronically signed by Chantal Persaud > Chantal Persaud Cosigner Signature (if applicable): 09/14/22 1137 <Electronically signed by Bernardino Min MD> CC: ~ Signed [facility] Work Phone: 1(797) 545-692601-13-2023 History and physical note Author Dr. Min [facility] September 11, 2022 9:32pm Note Date/Time September 11, 2022 9 :18pm [facility] Medical Records Department [address] [place] [address] History & Physical Exam 09/11/222104 MR#: [id number] Acct: [id number] Name: ROSITA KENNEDY Rep #:[id number] : 1945 76 From: Bernardino Min MD PCP: Rosmery Horn MD Status:ADM IN Location: TCU [place] [address] HPI - General General Date of Admission: 09/11/22 Date of Service: 09/11/22 Chief Complaint: Here for rehabilitation. HPI Narrative ROSITA KENNEDY, is a 76 Female who presents with followin09/03/2022 - 09/07/2022 TCU resident for debility, acute kidney injury, dehydration,urinary tract infection, extensive right lower extremity DVT. 09/07/2022 Admitted to [facility] for heparin drip. 09/08/2021 Dr. Schaefer performed thrombectomy, balloon angioplasty of right lower extremity DVT. 09/09/2022 Doing well, right leg less taut, but still swelling, heaviness. Plan to remove clot from IVC filter. Continue heparin drip, NPO after midnight. 09/10/2022 Dr. Schaefer performed IVC venogram, percutaneous thrombectomy IVC, bilateral common and external arteries angioplasty, IVUS. 09/11/2022 Admit to TCU with debility, here for rehabilitation, strengthening, prior to discharge home alone. [facility] Medical History Brain bleed Glaucoma Multiple sclerosis Presence of IVC filter Pulmonary embolism Pulmonary nodule Uterine cancer Home Medications atorvastatin 10 mg tablet 40 mg PO QHS cholesterol lowering 09/08/18 [History Last Taken 08/30/22] cholecalciferol (vitamin D3) 25 mcg (1,000 unit) tablet (Vitamin D3) 1,000 unit PO DAILY supplement 09/08/18 [History Last Taken 09/07/18] multivitamin with folic acid 400 mcg tablet (Thera) 1 tab PO DAILY supplement 09/08/18 [History Last Taken 08/31/22] ondansetron HCl 8 mg tablet 8 mg PO Q8H PRN PRN Nausea 09/08/18 [History Last Taken 09/07/18] sertraline 100 mg tablet 125 mg PO DAILY mental health 09/08/18 [History Last Taken 08/31/22] brimonidine 0.2 % eye drops 2 drp RIGHT EYE TID glaucoma 08/31/22 [History Last Taken 08/30/22] levothyroxine 25 mcg tablet 25 mcg PO DAILY thyroid 08/31/22 [History Last Taken 08/31/22] methenamine hippurate 1 gram tablet 1 g PO BID Bladder 08/31/22 [History Last Taken 08/30/22] mirtazapine 15 mg tablet 15 mg PO QHS sleep 08/31/22 [History Last Taken 08/30/22] polyethylene glycol 3350 17 gram/dose oral powder (Miralax) 17 g PO DAILY constipation 08/31/22 [History Last Taken 08/30/22] potassium chloride 10 mEq tablet,extended release 10 meq PO DAILY supplement 08/31/22 [History Last Taken 08/31/22] sennosides 8.6 mg-docusate sodium 50 mg tablet (Stool Softener-Stimulant Laxative) 2 tab PO BID stool softener 09/03/22 [History Last Taken Unknown] acetaminophen 500 mg tablet 1,000 mg PO Q6H PRN PRN Pain Score 1-10 #0 tabs 09/07/22 [Rx Last Taken Unknown] latanoprost 0.005 % eye drops 1 drp EACH EYE Eye health 09/11/22 [History Last Taken Unknown] menthol 0.44 %-zinc oxide 20.6 % topical ointment (Calmoseptine) 1 applic topical BID@1000,2200 Skin protection 09/11/22 [History Last Taken Unknown] rivaroxaban 15 mg tablet (Xarelto) 15 mg PO BIDCM Blood thinner 09/11/22 [History Last Taken Unknown] Allergy/AdvReac Type Severity Reaction Status Date / Time codeine Allergy Hives Verified 08/31/22 13:37 methylprednisolone Allergy Hives Verified 08/31/22 13:37 Sulfa (Sulfonamide Allergy Hives Verified 08/31/22 13:37 Antibiotics) erythromycin base AdvReac Upset Verified 08/31/22 13:37 Stomach Surgical History H/O: hysterectomy History of section Social History household members: none housing: house Smoking Status: Never smoker alcohol intake: never substance use type: does not use ROS Constitutional Constitutional: Reports fatigue and weakness; Denies chills, fever(s) or weight gain ENT HEENT: Denies headache(s), nasal congestion or nasal discharge Cardiovascular Cardiovascular: Denies chest pain or palpitations Respiratory/Chest Respiratory/Chest: Denies cough, excessive phlegm production or shortness of breath with exertion Gastrointestinal Gastrointestinal: Denies abdominal pain, nausea or vomiting Genitourinary Genitourinary: Denies dysuria Musculoskeletal Musculoskeletal: Denies joint pain or joint swelling Integumentary Integumentary: Denies rash or wounds Neurologic Neurologic: Denies focal weakness, numbness or tingling Psychiatric Psychiatric: Denies anxiety, auditory hallucinations, depression, homicidal ideation or suicidal ideation Physical Exam Const alert General Appearance: cooperative HEENT normocephalic Eyes PERRL and EOMs intact bilaterally Neck supple, no JVD and no carotid bruits Resp normal respiratory effort, normal air movement and clear to auscultation bilaterally Cardio regular rate and regular rhythm GI normal to inspection, nondistended, normoactive bowel sounds, non-tender and non-distended Extremity normal capillary refill General Extremity: Negative for edema Skin no rashes or lesions noted General Skin Exam: no breakdown Psych affect normal Appearance: appropriate Assessment & Plan Assessment/Plan (1) Debility: (2) Weakness: (3) Deep vein thrombosis, lower right extremity: (4) Hyperlipidemia: (5) Glaucoma: (6) Hypothyroidism: (7) Recurrent urinary tract infection: (8) Depression: (9) Nausea: (10) Hypokalemia: (11) Vitamin D deficiency: PLAN: Plan 76 year old female with below past medical history hospitalized for right lower extremity thrombectomy, IVC filter blood clot removal, admitted to TCU with debility, here for rehabilitation, strengthening, prior to discharge home alone. * Debility - PT/OT. * Pain - Tylenol 1000mg q6h prn pain (1-10). * Bowel - Miralax 17gm daily, senna/colace 2 tablets bid. * Adult immunization - Administer pneumonia vaccine, covid19 vaccine, flu vaccine as appropriate. * DVT prophylaxis - Not necessary, on Xarelto. * Hyperlipidemia - Atorvastatin 40mg qhs. * Glaucoma - Brimonidine 0.2% 2gtt od bid, Latanoprost 0.005% 1gtt ou qhs. * Nutrition - Ensure Plus 120ml 4x/day, MVI daily. * Hypothyroidism - Levothyroxine 25mcg daily. * Skin irritation - Calmoseptine topical bid. * Recurrent UTI - Methenamine 1gm bid. * Depression - Sertraline 125mg daily, Mirtazapine 15mg qhs, stable chronic prison use, GDR not recommended. * Nausea - Zofran 8mg q8h prn. * Hypokalemia - KCL 10meq daily. * Vitamin D deficiency - D3 25mcg daily. * Extensive right lower extremity DVT:? Xarelto 15mg bid thru 10/02/2022, then 20mg daily. 09/11/222131 <Electronically signed by Bernardino Min MD> Cosigner Signature (if applicable): CC: Rosmery Horn MD; Dr. Bernardino Min MD~ Signed [facility] Work Phone: 1(649) 602-639101-09-2023 Hospital Discharge instructions Additional Instructions Discharge to [facility] 09/07/2022 for heparin drip, then Thrombectomy 09/08/[address] Schaefer.[facility] Work Phone: 1(306) 339-192712-30-2022 Miscellaneous Notes* Telephone Encounter - Ellen Dash APRN.CNP - 08/28/2022 2:50 PM EST Seen by Nelia Arreola in office today Ellen Dash APRN.CNP * Telephone Encounter - Tamara Gagnon RN - 08/27/2022 4:41 PM EST Patient's [id number] Veronica Kennedy calling to state patient may have a UTI. She states pt gets reoccurrent UTI's and they did a home kit test on her urine today and it showed +nitrates and high +leukocytes. Veronica reports patient is shaky, achey, has no appetite and has been feeling nauseated. They have not taken her temperature but states pt denies hot or chills. No cough, runny nose or nasal congestion. No urinary urgency, frequency or burning. Veronica asking if provider would order pt treatment, or other advise? States patient does not live very close to PCP office. Please advise patient. Thank you. [facility] Instructions* Patient Instructions* Nelia Arreola APRN.CNP - 08/28/2022 11:26 AM EST Start taking your Cipro twice daily for 10 days. Make sure you have at least a little something in your stomach when you take the pills. Monitor the rectal bleeding. Put a thin layer of cream with zinc such as Desitin to protect the skin surrounding the rectum. Push fluids. I would like you to get in a minimum of 60-80 ounces of water daily. I also recommend you drink 1-2 bottles of Body Armor drink daily-this has extra electrolytes. I'm more concerned withyour hydration rather than how much you're eating. Start a daily probiotic that you take at nighttime. Refrigerated are the best-Go to the pharmacy and ask for one of their refrigerated probiotics that are behind the counter. If any of your symptoms persist or worsen, please let me know. I can see you again in the office next week if necessary. documented in this encounterTr[facility]12-30-2022 History of Present illness Narrative* Nelia Arreola APRN.CNP - 08/28/2022 10:24 AM EST Chief Complaint Patient presents with: Rectal Bleeding: Diarrhea started yesterday with slight blood, vomiting on Wednesday, lightheadedness,no appetite , low back pain Uti - Re-occurring HPI Rosita Kennedy is a 76 year old female who presents here today for Above Complaints.. Today: Threw up on Wednesday, was shakey and lightheaded-not dizzy. No more vomiting but occasional dry heaves. Decreased appetite. Had partial donut and partial Moroccan muffin. Hx uncontrollable diarrhea. This started up yesterday. Noticed a few drops of blood yesterday dropping into the toilet. Did have a large amount of diarrhea this morning. After showering and sitting on the towel there were spots of blood. Bilateral low back pain that started last evening and has been persistent. Past medical history, appointments, medications, allergies reviewed. Previous Medical History PAST MEDICAL HISTORY Diagnosis Date Cataracts, bilateral COAG (chronic open-angle glaucoma) CRVO (central retinal vein occlusion) Disorder of bone and cartilage, unspecified Multiple sclerosis (HCC) 2001 remission currently Pseudophakia, both eyes Pyelonephritis, unspecified 01/2010 Pyelonephritis Uterine cancer (HCC) 08/08/2014 Previous Surgical History PAST SURGICAL HISTORY Procedure Laterality Date DELIVERY ONLY , low cervical X3 COLONOSCOPY 05/18/2016 Dr. Gibbs. no bx taken COLONOSCOPY, GI 1998, 2009 EYE SURGERY PROCEDURE Left 04/11/2021 Xen Gel stent EYLEA (AFLIBERCEPT) 2MG INTRAVITREAL INJECTION OD (RIGHT EYE) Right 04/02/2016 #7 INSERT ANT SEGMENT DRAIN INT 11/21/2014 iStent Implantation Left Eye LIG/TRNSXJ FLP TUBE ABDL/VAG APPR UNI/BI 1976 PAST SURGICAL HISTORY OF right EYE SURGERY AGE 7 PAST SURGICAL HISTORY OF Right 11/06/2020 Xen Gel PULMONARY FUNCTION TEST 06/07/03 XCAPSL CTRC RMVL INSJ IO LENS PROSTH W/O ECP 11/21/2014 Cataract Extraction with PC IOL/Femtosecond Laser Left Eye Family History FAMILY HISTORY Problem Relation Age of Onset Breast Cancer Sister Glaucoma Sister Heart Father mi Diabetes Father Hypertension Mother Alzheimer's Disease Mother Macular Degen Mother Glaucoma Mother Macular Degen Maternal Grandmother Patient Allergies ALLERGIES Allergen Reactions Codeine hives Dye GI Upset Diarrhea after CT oral contrast 01/2018 Erythromycin GI Upset Methylprednisolone Hives IV Sulfa (Sulfonamide * hives Current Medications Current Outpatient Medications on File Prior to Visit Medication Sig levothyroxine (LEVOXYL) 25 mcg tablet Take 1 tablet by mouth once daily. Take on empty stomach. ForThyroid mirtazapine (REMERON) 15 mg tablet Take 1 tablet by mouth daily at bedtime. meloxicam (MOBIC) 15 mg tablet Take 1 tablet by mouth once daily. With food. atorvastatin (LIPITOR) 40 mg tablet Take 1 tablet by mouth daily at bedtime. For cholesterol. Methenamine Hippurate (HIPREX) 1 gram tablet Take 1 tablet by mouth twice daily with meals. furosemide (LASIX) 20 mg tablet Take one tablet every day but if looses more than 10 pounds in a week then she needs to hold it. potassium chloride (K-TAB) 10 mEq tablet Take 1 tablet by mouth twice daily. Take it every day along with lasix. If looses than 10 pounds then change to every other day buPROPion (WELLBUTRIN) 75 mg tablet Take it once a day in the morning. sertraline (ZOLOFT) 25 mg tablet Take 1 tablet by mouth once daily. sertraline (ZOLOFT) 100 mg tablet Take 1 tablet by mouth once daily. To take along with 25 mgs to make a total of 125 mgs travoprost (TRAVATAN Z) 0.004 % ophthalmic drops Use 1 Drop in both eyes daily at bedtime. brimonidine-timolol (COMBIGAN) 0.2-0.5 % ophthalmic solution Use 1 Drop in the right eye twice daily. Use at 9 AM and 3 PM ondansetron orally disintegrating (ZOFRAN ODT) 4 mg disintegrating tablet Take 1 tablet by mouth every 6 hours as needed for nausea/vomiting. phenazopyridine (PYRIDIUM, GERIDIUM) 200 mg tablet Take 1 tablet by mouth three times daily as needed. aspirin, enteric coated (ECOTRIN LOW STRENGTH) 81 mg EC tablet Take 1 tablet by mouth once daily. calcium carb/vitamin D3/vit K1 (VIACTIV ORAL) Take 1 tablet by mouth once daily. L GASSERI/B BIFIDUM/B LONGUM ([facility] ORAL) Take by mouth. CHOLECALCIFEROL, VITAMIN D3, (VITAMIN D3 ORAL) Take by mouth once daily. LUTEIN ORAL Take by mouth. MULTIVITAMIN TABLET PO Take one(1) tablet daily. Current Facility-Administered Medications on File Prior to Visit Medication perflutren lipid microspheres 1.3 mL in NaCl (PF) 0.9% 10 mL injection (DEFINITY) sodium chloride 0.9 % (flush) 10 mL (BD POSIFLUSH) Social History Social History Tobacco Use Smoking status: Never Smokeless tobacco: Never Vaping Use Vaping Use: Never used Substance Use Topics Alcohol use: Yes Comment: 1 drink per month not used in 1 year Drug use: No Review of Symptoms REVIEW OF SYSTEMS See HPI, otherwise negative EXAM: BP 112/68 (BP Site: Left Arm, BP Position: Sitting, BP Cuff Size: Regular Adult) Pulse 75 Temp 36.9 C (98.5 F) Resp 16 Wt 50.8 kg (112 lb) SpO2 94% BMI 21.87 kg/m General Appearance: Well appearing, alert, in no acute distress, well-hydrated, well nourished.. Lungs: Lungs clear to auscultation. No wheezing, rhonchi, rales.. Heart: RRR without murmur, gallop, or rubs. No ectopy. Rectal: Negative findings: gross blood not visualized with rectal exam, no external or internal hemorrhoids appreciated, slightly decreased rectal tone, mild excoriation of skin surrounding rectum Health Maintenance List DTAP,TDAP,TD(1 - Tdap) Never done PNEUMOCOCCAL: 65+(2 - PCV) due on 06/11/2016 ADVANCE DIRECTIVE DISCUSSION Never done MAMMOGRAM due on 10/30/2022 ANNUAL PCP TEAM CHRONIC DISEASE VISIT due on 08/03/2023 DIABETES SCREEN due on 08/03/2025 LIPID SCREEN due on 02/12/2027 COLORECTAL CANCER SCREENING due on 04/24/2030 BONE DENSITY Completed INFLUENZA Completed DEPRESSION ASSESSMENT Completed SHINGRIX VACCINE Completed COVID-19 VACCINE Completed HEPATITIS C SCREENING Discontinued Data reviewed Previous records, office notes ASSESSMENT/PLAN: 1. Recurrent UTI (urinary tract infection) - ICD9: 599.0, ICD10: N39.0 (primary diagnosis) Patient is unable to urinate today. Given significant hx of recurrent UTIs as well as positive homeurine test for UTI, will treat today. If no improvement, patient and [id number] are agreeable to coming to the office for another visit and need to obtain urine for urinalysis and culture. Beginprobiotic as well. - CIPROFLOXACIN 500 MG TABLET - CBC + DIFF - IRON + TIBC - FERRITIN BLD - COMP METABOLIC PANEL 2. Recurrent acute confusion - ICD9: 293.0, ICD10: R41.0 Mild and intermittent. Suspect r/t UTI. Patient is unable to urinate today. Given significant hx ofrecurrent UTIs as well as positive home urine test for UTI, will treat today. If no improvement, patient and [id number] are agreeable to coming to the office for another visit and need to obtainurine for urinalysis and culture. Begin probiotic as well. - CIPROFLOXACIN 500 MG TABLET - CBC + DIFF - IRON + TIBC - FERRITIN BLD - COMP METABOLIC PANEL 3. Rectal bleeding - ICD9: 569.3, ICD10: K62.5 Suspect r/t excoriation surrounding rectum. Advised to utilize skin protectant barrier such as Desitin. Obtain labs to assure no notable blood loss. Instructed patient and family to monitor for bloodloss. Discussed red flag s/s requiring emergent evaluation. Begin probiotic as well. - CIPROFLOXACIN 500 MG TABLET - CBC + DIFF - IRON + TIBC - FERRITIN BLD - COMP METABOLIC PANEL 4. Acute bilateral low back pain without sciatica - ICD9: 724.2, 338.19, ICD10: M54.50 Suspect r/t UTI. Patient is unable to urinate today. Given significant hx of recurrent UTIs as wellas positive home urine test for UTI, will treat today. If no improvement, patient and [id number] are agreeable to coming to the office for another visit and need to obtain urine for urinalysis and culture. Begin probiotic as well. - CIPROFLOXACIN 500 MG TABLET - CBC + DIFF - IRON + TIBC - FERRITIN BLD - COMP METABOLIC PANEL 5. Excoriation of buttock, initial encounter - ICD9: 911.8, ICD10: S30.810A Suspect small amount of blood noted at home r/t excoriation surrounding rectum. Advised to utilize skin protectant barrier such as Desitin. Obtain labs to assure no notable blood loss. Instructed patient and family to monitor for blood loss. Discussed red flag s/s requiring emergent evaluation. Begin probiotic as well. - CIPROFLOXACIN 500 MG TABLET - CBC + DIFF - IRON + TIBC - FERRITIN BLD - COMP METABOLIC PANEL 6. Decreased rectal sphincter tone - ICD9: 569.49, ICD10: K62.89 Suspect small amount of blood noted at home r/t excoriation surrounding rectum. Advised to utilize skin protectant barrier such as Desitin. Obtain labs to assure no notable blood loss. Instructed patient and family to monitor for blood loss. Discussed red flag s/s requiring emergent evaluation. Begin probiotic as well. - CIPROFLOXACIN 500 MG TABLET - CBC + DIFF - IRON + TIBC - FERRITIN BLD - COMP METABOLIC PANEL 7. Chronic diarrhea - ICD9: 787.91, ICD10: K52.9 Suspect small amount of blood noted at home r/t excoriation surrounding rectum. Advised to utilize skin protectant barrier such as Desitin. Obtain labs to assure no notable blood loss. Instructed patient and family to monitor for blood loss. Discussed red flag s/s requiring emergent evaluation. Begin probiotic as well. - CIPROFLOXACIN 500 MG TABLET - CBC + DIFF - IRON + TIBC - FERRITIN BLD - COMP METABOLIC PANEL Nelia Arreola APRN.ART PREPARATOR documented in this [facility]12-29-2022 Miscellaneous Notes* Telephone Encounter - Luisa Arshad RN - 08/27/2022 9:09 PM EST Reason for call: possible UTI, rectal bleeding Outcome: see PCP within 24 hours Reason for Disposition MODERATE rectal bleeding (small blood clots, passing blood without stool, or toilet water turns red) Answer Assessment - Initial Assessment Questions 1. APPEARANCE of BLOOD: BRB in the toilet bowl and passed some blood when she sat down after that 2. AMOUNT: just droplets in the bowl, enough blood to cover the seat when she sat down 3. FREQUENCY: 1x with stool today and 1x without 4. ONSET: today 5. DIARRHEA: 2x today, stool was brown 6. CONSTIPATION: no 7. RECURRENT SYMPTOMS: never had rectal bleeding before 8. BLOOD THINNERS: no 9. OTHER SYMPTOMS: week or so very tired, dizzy, very shaky, thinks has an UTI ( dip + at home) afebrile. She had somepain around her kidneys before but not at present Protocols used: Rectal [id number] conf to AC to schedule [facility] Miscellaneous Notes* Telephone Encounter - Franchesca Matson RN - 08/15/2022 11:38 AM EST Pt called and is notified of providers message and instructions. Pt voices understanding. Franchesca Matson RN * Telephone Encounter - Rosmery Horn MD - 08/15/2022 11:32 AM EST Take otc cough syrup like Rosmery Thornton MD * Telephone Encounter - Abby Peter LPN - 08/15/2022 10:01 AM EST Patient calling back now asking for rx to be sent to [facility] please. * Telephone Encounter - Franchesca Matson RN - 08/15/2022 9:51 AM EST Pt called in and reports she has a cough and is bring up a small amount of clear thick sputum. She states the cough takes her breath away. She states she took a Covid test yesterday and it was negative. Pt is asking if provider would send in something for her cough to [facility]. documented in this [facility]12-[facility]-2022 History of Present illness Narrative* Rosmery Horn MD - 08/03/2022 4:12 PM EST Reason for Visit Patient presents with: Follow Up: 2 month follow up Rosita Kennedy is a 76 year old female who presents here today for Above Complaints. 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 DELIVERED DOSE: The Aortocaval LNs PTV received a total dose of 2400 cGy in 3 fractions at 800 cGy/fraction prescribed to Max Dose at 71.0% IDL using 10 MV photons with SBRT Coplanar VMAT technique. RT completed 03/03/2022. For the past couple weeks she has been feeling better, not sure what that is attributed to. Diarrhea is better. Not sure how that got better. Postulates that perhaps after radiation it is taking so long for her to finally feel better She is sleeping well at night with the remeron. During the day, her eyes are burning but that couldbe from the glaucoma. She has decreased vision since a couple years and gave up driving for that reason too. She was advised to use drops in her eyes for medication but is not compliant with using them and will try to be She was advised to use a cane at all times. She is a little depressed during the holiday as she misses her . She has a mesh in the stomach and wanted to take it out, it has been a few years she had it in, we discussed that it would be a major surgery at which point she declined to have anything else done. Reviewed recent labs, her tsh levels were on the higher side No problem-specific Assessment & Plan notes found for this encounter. PAST MEDICAL HISTORY Diagnosis Date Cataracts, bilateral COAG (chronic open-angle glaucoma) CRVO (central retinal vein occlusion) Disorder of bone and cartilage, unspecified Multiple sclerosis (HCC) 2001 remission currently Pseudophakia, both eyes Pyelonephritis, unspecified 01/2010 Pyelonephritis Uterine cancer (HCC) 08/08/2014 PAST SURGICAL HISTORY Procedure Laterality Date DELIVERY ONLY , low cervical X3 COLONOSCOPY 05/18/2016 Dr. Gibbs. no bx taken COLONOSCOPY, GI 1998, 2009 EYE SURGERY PROCEDURE Left 04/11/2021 Xen Gel stent EYLEA (AFLIBERCEPT) 2MG INTRAVITREAL INJECTION OD (RIGHT EYE) Right 04/02/2016 #7 INSERT ANT SEGMENT DRAIN INT 11/21/2014 iStent Implantation Left Eye LIG/TRNSXJ FLP TUBE ABDL/VAG APPR UNI/BI 1976 PAST SURGICAL HISTORY OF right EYE SURGERY AGE 7 PAST SURGICAL HISTORY OF Right 11/06/2020 Xen Gel PULMONARY FUNCTION TEST 06/07/03 XCAPSL CTRC RMVL INSJ IO LENS PROSTH W/O ECP 11/21/2014 Cataract Extraction with PC IOL/Femtosecond Laser Left Eye FAMILY HISTORY Problem Relation Age of Onset Breast Cancer Sister Glaucoma Sister Heart Father mi Diabetes Father Hypertension Mother Alzheimer's Disease Mother Macular Degen Mother Glaucoma Mother Macular Degen Maternal Grandmother Social History Tobacco Use Smoking status: Never Smokeless tobacco: Never Vaping Use Vaping Use: Never used Substance Use Topics Alcohol use: Yes Comment: 1 drink per month not used in 1 year Drug use: No Past medical history, appointments, medications, allergies reviewed. Pertinent Lab/Diagnostic Studies are reviewed and discussed today Current Outpatient Medications: levothyroxine (LEVOXYL) 25 mcg tablet mirtazapine (REMERON) 15 mg tablet meloxicam (MOBIC) 15 mg tablet atorvastatin (LIPITOR) 40 mg tablet Methenamine Hippurate (HIPREX) 1 gram tablet furosemide (LASIX) 20 mg tablet potassium chloride (K-TAB) 10 mEq tablet buPROPion (WELLBUTRIN) 75 mg tablet sertraline (ZOLOFT) 25 mg tablet sertraline (ZOLOFT) 100 mg tablet travoprost (TRAVATAN Z) 0.004 % ophthalmic drops brimonidine-timolol (COMBIGAN) 0.2-0.5 % ophthalmic solution ondansetron orally disintegrating (ZOFRAN ODT) 4 mg disintegrating tablet phenazopyridine (PYRIDIUM, GERIDIUM) 200 mg tablet aspirin, enteric coated (ECOTRIN LOW STRENGTH) 81 mg EC tablet calcium carb/vitamin D3/vit K1 (VIACTIV ORAL) L GASSERI/B BIFIDUM/B LONGUM ([facility] ORAL) CHOLECALCIFEROL, VITAMIN D3, (VITAMIN D3 ORAL) LUTEIN ORAL MULTIVITAMIN TABLET PO Current Facility-Administered Medications: perflutren lipid microspheres 1.3 mL in NaCl (PF) 0.9% 10 mL injection (DEFINITY) sodium chloride 0.9 % (flush) 10 mL (BD POSIFLUSH) Review of Systems CONSTITUTIONAL: No fevers, chills night sweats, unintended weight loss CARDIOVASCULAR: No chest pain, dyspnea, palpitations, orthopnea, PND, ankle edema. PULM: No dyspnea, unexplained cough. GI: No dysphagia/odynophagia, problematic reflux, constipation, diarrhea, changes in stool habits, hematochezia, melena. : No new urinary complaints, including dysuria, gross hematuria or pyuria. NEURO: No new balance problems, peripheral weakness/paresthesias or numbness of concern. Physical Exam BP 102/52 (BP Site: Right Arm, BP Position: Sitting, BP Cuff Size: Regular Adult) Pulse 65 Temp37.4 C (99.4 F) Resp 12 Ht 152.4 cm (5') Wt 50.3 kg (111 lb) SpO2 97% BMI 21.68 kg/m General appearance: Well appearing, alert, in no acute distress, well nourished. Skin: Skin color, texture, turgor normal, no suspicious rashes or lesions Head: Normocephalic, no masses, lesions, tenderness or abnormalities Eyes: Anicteric sclera. Pupils are equally round and reactive to light. Extraocular movements are intact. Lungs: Lungs clear to auscultation. No wheezing, rhonchi, rales Heart: RRR without murmur, gallop, or rubs. Extremities: No deformities, edema, skin discoloration, clubbing or cyanosis. Good capillary refill. ASSESSMENT/PLAN: 1. Hypomagnesemia - ICD9: 275.2, ICD10: E83.42 (primary diagnosis) - MAGNESIUM BLD 2. Hypothyroidism, unspecified type - ICD9: 244.9, ICD10: E03.9 - Instructed patient on importance of taking on an empty stomach either first thing in the morning or at bedtime. Stable - TSH BLD - CBC + DIFF - BASIC METABOLIC PNL 3. Vitamin D deficiency - ICD9: 268.9, ICD10: E55.9 - VITAMIN D 25 HYDROXY - VITAMIN B12 BLOOD 4. Vitamin B12 deficiency - ICD9: 266.2, ICD10: E53.8 - VITAMIN B12 BLOOD 5. Mixed hyperlipidemia - ICD9: 272.2, ICD10: E78.2 - good control - Continue current medication. Rosmery Horn MD documented in this [facility]12-01-2022 Miscellaneous Notes* Telephone Encounter - Lyn Short RN - 07/30/2022 1:22 PM EST Patient has been identified by name and date of : Yes Pharmacy phones for refill(s): Requested Prescriptions Pending Prescriptions Disp Refills levothyroxine (LEVOXYL) 25 mcg tablet 60 tablet 1 Sig: Take 1 tablet by mouth once daily. Take on empty stomach. For Thyroid mirtazapine (REMERON) 15 mg tablet 90 tablet 1 Sig: Take 1 tablet by mouth daily at bedtime. meloxicam (MOBIC) 15 mg tablet 30 tablet 1 Sig: Take 1 tablet by mouth once daily. With food. atorvastatin (LIPITOR) 40 mg tablet 90 tablet 1 Sig: Take 1 tablet by mouth daily at bedtime. For cholesterol. Date of last office visit with pcp: 05/30/22 Date of last office visit in primary care: Last 2 Encounter Wt Readings: Date: Wt: 05/30/2022 50.3 kg (111 lb) 04/14/2022 50.8 kg (112 lb) Previous labs/tests for medication: Thyroid: TSH Date Value 05/30/2022 4.210 mIU/L 10/22/2021 3.080 uU/mL Cholesterol: HDL Cholesterol (mg/dL) Date Value 02/12/2022 35 2020 38 LDL Cholesterol (mg/dL) Date Value 02/12/2022 46 2020 71 ALT (U/L) Date Value 04/14/2022 12 10/22/2021 20 Non HDL Cholesterol (mg/dL) Date Value 02/12/2022 94 2020 110 Please advise. Thank you. Lyn Short RN documented in this [facility]10-21-2022 NoteHNO ID: [id number] Author: Joseluis Perez MD Service: ? Author Type: Physician Type: Progress Notes Filed: 06/21/2022 5:55 PM Note Text: TELEVISIT PROGRESS NOTE This is a telephone encounter initiated for an established patient, parent or guardian not originating from a related Evaluation AND Management service provided within the previous 7 days nor leading to an Evaluation AND Management service or procedure within the next 24 hours or soonest available appointment. 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 MMR normal. Now with recurrence. HISTORY TO DATE: 1. Initital presentation: Ms. Kennedy is a 75 year old female with MS and depression. Saw Skylar Ackerman CNP for complaints of PMB, 5 day history. On 07/25/2014 had a EMB that showed Well differentiated endometrioid adenocarcinoma, FIGO grade 1. HNPCC screening negative 2. 09/12/2014 Surgery: Single-port total laparoscopic hysterectomy with bilateral salpingo-oophorectomy, bilateral pelvic lymphadenectomy, bilateral periaortic lymphadenectomy and cystoscopy 3.) 10/03/14 Consult to rad onc: RT deferred 4.) 10/26/2016: Lymphatic recurrence in left neck right retrocaval, bilateral pelvis 5.) 12/03/2016: Lymph node FNA: Positive for malignant cells. Adenocarcinoma 6.) 12/10/2016-04/01/2017: Chemo - Carbo/Taxol x 6 cycles 7.) 12/22/2016 CARIS testing- see scanned document for details 8.) 05/2017: Radiation - RT to left supraclavicular region, retroperitoneal/pelvic node region 9.) 02/2018: Right retrorenal LN met not amenable to SRS or removal. Pt declined cytotoxic therapy ER 50%, NV negative 10). 03/31/2018 - 03/16/2019: Letrozole started. Everolimus added 06/23/2018 due to progression. Treatment discontinued 03/16/2019 due to disease progression (confirmed 03/06/2019). Patient elected treatment holiday. 11.)08/2018: PE, IVC filter placement 12.) 01/01/2022: [facility]. Recommended RT (vs systemic chemotherapy) for management of hypermetabolic aortocaval lymphadenopathy (12/15 CT and 12/22 PET). Patient would prefer treatment in [place], [place]. 13). 01/05/2022: Consult with Rad/Onc (Dr. Solorio in [place]). Per family, RT was not recommended due to concerns with risk of damage to bowels and kidney given the lymph node location. 14). 01/13/2022: Tumor Board Management Options: - Radiation oncology consultation for discussion of SBRT. - Recommend systemic treatment with pembrolizumab/lenvima. 15). 02/24/2022 - 03/03/2022: Radiation Therapy (SBRT) - The Aortocaval LNs PTV received a total dose of 2400 cGy in 3 fractions Date of last follow up: 03/26/2022 distance health PAST MEDICAL HISTORY Diagnosis Date Cataracts, bilateral COAG (chronic open-angle glaucoma) CRVO (central retinal vein occlusion) Disorder of bone and cartilage, unspecified Multiple sclerosis (HCC) 2001 remission currently Pseudophakia, both eyes Pyelonephritis, unspecified 01/2010 Pyelonephritis Uterine cancer (HCC) 08/08/2014 PAST SURGICAL HISTORY Procedure Laterality Date DELIVERY ONLY , low cervical X3 COLONOSCOPY 05/18/2016 Dr. Gibbs. no bx taken COLONOSCOPY, GI 1998, 2009 EYE SURGERY PROCEDURE Left 04/11/2021 Xen Gel stent EYLEA (AFLIBERCEPT) 2MG INTRAVITREAL INJECTION OD (RIGHT EYE) Right 04/02/2016 #7 INSERT ANT SEGMENT DRAIN INT 11/21/2014 iStent Implantation Left Eye LIG/TRNSXJ FLP TUBE ABDL/VAG APPR UNI/BI 1976 PAST SURGICAL HISTORY OF right EYE SURGERY AGE 7 PAST SURGICAL HISTORY OF Right 11/06/2020 Xen Gel PULMONARY FUNCTION TEST 06/07/03 XCAPSL CTRC RMVL INSJ IO LENS PROSTH W/O ECP 11/21/2014 Cataract Extraction with PC IOL/Femtosecond Laser Left Eye Family History Problem Relation Age of Onset Breast Cancer Sister Glaucoma Sister Heart Father mi Diabetes Father Hypertension Mother Alzheimer's Disease Mother Macular Degen Mother Glaucoma Mother Macular Degen Maternal Grandmother PATHOLOGY 09/12/14 Staging Moderately differentiated endometrioid adenocarcinoma, FIGO grade 2. myometiral invasion (2 mm out of 16 mm) TUMOR SIZE: 2.8 cm LYMPH-VASCULAR INVASION: Not identified Nodes negative 11/26/2016 ESTROGEN/PROGESTERONE RECEPTOR (ER/NV) ANALYSIS Estrogen receptors immunostain appears weakly to moderately positive in 30% of cell nuclei. Progesterone receptors immunostain appears moderately positive in 50% of cell nuclei. 2016 BIOPSY- CT-guided percutaneous biopsy of retroperitoneal lymph node Right lower back retroperitoneal lymph node, biopsy Metastatic carcinoma consistent with endometrial primary. Keratin AE1/AE3 and PAX8 are positive, consistent with the above interpretation. Drs. Mathews (more content not included)...[facility] 06-19-2022 History of Present illness Narrative* Joseluis Perez MD - 06/19/2022 5:30 PM EDT TELEVISIT PROGRESS NOTE This is a telephone encounter initiated for an established patient, parent or guardian not originating from a related Evaluation & Management service provided within the previous 7 days nor leading to an Evaluation & Management service or procedure within the next 24 hours or soonest available appointment. 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 MMRnormal. Now with recurrence. HISTORY TO DATE: 1. Initital presentation: Ms. Kennedy is a 75 year old female with MS and depression. Saw Skylar Ackerman CNP for complaints of PMB, 5 day history. On 07/25/2014 had a EMB that showed Well differentiated endometrioid adenocarcinoma, FIGO grade 1. HNPCC screening negative 2. 09/12/2014 Surgery: Single-port total laparoscopic hysterectomy with bilateral salpingo-oophorectomy, bilateral pelvic lymphadenectomy, bilateral periaortic lymphadenectomy and cystoscopy 3.) 10/03/14 Consult to rad onc: RT deferred 4.) 10/26/2016: Lymphatic recurrence in left neck right retrocaval, bilateral pelvis 5.) 12/03/2016: Lymph node FNA: Positive for malignant cells. Adenocarcinoma 6.) 12/10/2016-04/01/2017: Chemo - Carbo/Taxol x 6 cycles 7.) 12/22/2016 CARIS testing- see scanned document for details 8.) 05/2017: Radiation - RT to left supraclavicular region, retroperitoneal/pelvic node region 9.) 02/2018: Right retrorenal LN met not amenable to SRS or removal. Pt declined cytotoxic therapy ER 50%, NV negative 10). 03/31/2018 - 03/16/2019: Letrozole started. Everolimus added 06/23/2018 due to progression. Treatment discontinued 03/16/2019 due to disease progression (confirmed 03/06/2019). Patient elected treatment holiday. 11.)08/2018: PE, IVC filter placement 12.) 01/01/2022: [facility]. Recommended RT (vs systemic chemotherapy) for management of hypermetabolic aortocaval lymphadenopathy (12/15 CT and 12/22 PET). Patient would prefer treatment in [place], [place]. 13). 01/05/2022: Consult with Rad/Onc (Dr. Solorio in [place]). Per family, RT was not recommended due toconcerns with risk of damage to bowels and kidney given the lymph node location. 14). 01/13/2022: Tumor Board Management Options: - Radiation oncology consultation for discussion of SBRT. - Recommend systemic treatment with pembrolizumab/lenvima. 15). 02/24/2022 - 03/03/2022: Radiation Therapy (SBRT) - The Aortocaval LNs PTV received a total doseof 2400 cGy in 3 fractions Date of last follow up: 03/26/2022 [facility] PAST MEDICAL HISTORY Diagnosis Date Cataracts, bilateral COAG (chronic open-angle glaucoma) CRVO (central retinal vein occlusion) Disorder of bone and cartilage, unspecified Multiple sclerosis (HCC) 2001 remission currently Pseudophakia, both eyes Pyelonephritis, unspecified 01/2010 Pyelonephritis Uterine cancer (HCC) 08/08/2014 PAST SURGICAL HISTORY Procedure Laterality Date DELIVERY ONLY , low cervical X3 COLONOSCOPY 05/18/2016 Dr. Gibbs. no bx taken COLONOSCOPY, GI 1998, 2009 EYE SURGERY PROCEDURE Left 04/11/2021 Xen Gel stent EYLEA (AFLIBERCEPT) 2MG INTRAVITREAL INJECTION OD (RIGHT EYE) Right 04/02/2016 #7 INSERT ANT SEGMENT DRAIN INT 11/21/2014 iStent Implantation Left Eye LIG/TRNSXJ FLP TUBE ABDL/VAG APPR UNI/BI 1976 PAST SURGICAL HISTORY OF right EYE SURGERY AGE 7 PAST SURGICAL HISTORY OF Right 11/06/2020 Xen Gel PULMONARY FUNCTION TEST 06/07/03 XCAPSL CTRC RMVL INSJ IO LENS PROSTH W/O ECP 11/21/2014 Cataract Extraction with PC IOL/Femtosecond Laser Left Eye Family History Problem Relation Age of Onset Breast Cancer Sister Glaucoma Sister Heart Father mi Diabetes Father Hypertension Mother Alzheimer's Disease Mother Macular Degen Mother Glaucoma Mother Macular Degen Maternal Grandmother PATHOLOGY 09/12/14 Staging Moderately differentiated endometrioid adenocarcinoma, FIGO grade 2. myometiral invasion (2 mm out of 16 mm) TUMOR SIZE: 2.8 cm LYMPH-VASCULAR INVASION: Not identified Nodes negative 11/26/2016 ESTROGEN/PROGESTERONE RECEPTOR (ER/NV) ANALYSIS Estrogen receptors immunostain appears weakly to moderately positive in 30% of cell nuclei. Progesterone receptors immunostain appears moderately positive in 50% of cell nuclei. 2016 BIOPSY- CT-guided percutaneous biopsy of retroperitoneal lymph node Right lower back retroperitoneal lymph node, biopsy Metastatic carcinoma consistent with endometrial primary. Keratin AE1/AE3 and PAX8 are positive, consistent with the above interpretation. Neal Mckinney McKenney and Mehnaz concur with the interpretation. Estrogen receptor is positive (50% of tumor cells) and progesterone receptor is negative (0% of tumor cells). 12/03/2016 Lymph node FNA: Positive for malignant cells. Adenocarcinoma (see comment). TUMOR MARKERS: CA 125 (U/mL) Date Value 10/22/2021 31 06/06/2021 33 2020 33 01/09/2020 31 10/03/2019 27 06/21/2019 29 03/06/2019 41 02/02/2019 42 12/07/2018 48 11/07/2018 37 10/10/2018 38 07/05/2017 24 04/08/2017 24 03/18/2017 29 02/08/2017 31 02/04/2017 29 01/14/2017 34 08/09/2014 25 No results found for: CA199 RECENT IMAGIN04/16/2020 CT Chest IMPRESSION: Stable lung nodules and nodular density in the right apex. No new nodules identified. No CT evidence of lymphadenopathy in the chest 04/16/2020 CT Abd/Pel IMPRESSION: Basically unchanged aortocaval lymphadenopathy. Large amount of stool and gas in the large bowel loops 11/19/2020 CT Chest/Abd/Pel IMPRESSION: Stable right apical nodular density and a few tiny left lung nodules. No new nodules identified. No CT evidence of lymphadenopathy in the chest. IMPRESSION: Stable enlarged aortocaval lymph node, previously biopsied and compatible with metastatic endometrial cancer. No new site of metastatic disease in the abdomen and pelvis. 06/06/2021 CT CHEST IMPRESSION: Possible new area of nodularity in the right upper lobe which measures 3 mm in transverse. Close attention on interval follow-up may be helpful. Otherwise, stable appearing pulmonary nodularity. Additional findings noted above. 06/06/2021 CT ABD/PEL IMPRESSION: 1. Enlarged aortocaval lymph node appears unchanged in size compared to the prior study. 2. No new metastatic lesions in the abdomen or pelvis 11/12/2021 CT Abd/Pel IMPRESSION: 1. Enlarged aortocaval node measuring approximately 3.4 x 3.4 cm, previously 3.2 x 2.6 cm. 2. T10 vertebral body compression fracture with approximately 90% height loss is new from prior. 3. Findings suggestive of constipation. 4. Minimal right-sided pelviectasis and urothelial enhancement involving the right renal pelvis. Consider correlation with urinalysis. 12/15/2021 CT Chest IMPRESSION: 1. Subcentimeter irregular density in the right upper lobe, unchanged in size and configuration. 2. Persistent elevation/eventration of the right hemidiaphragm, with associated lower lung atelectasis. 3. Tiny nodular densities along the anterior aspect of the trachea unchanged. 4. No CT evidence of lymphadenopathy in the chest. 5. T10 vertebral body compression deformity/age indeterminate fracture. 12/15/2021 CT Abd/Pel IMPRESSION: 1. Stable to minimal interval increase in size of pathologic aortocaval lymph node. 2. No new or enlarging lymphadenopathy or mass identified. 3. Stable severe T10 vertebral body compression fracture. 12/22/2021 PET/CT IMPRESSION: 1. NECK: No FDG avid neoplastic process. No hypermetabolic mass, adenopathy, or fluid collection. 2. CHEST: No FDG avid neoplastic process. No hypermetabolic mass, adenopathy, or fluid collection. 3. ABDOMEN/PELVIS: Hypermetabolic aortocaval lymphadenopathy. No hypermetabolic mass or fluid collection. 4. EXTREMITIES/SKELETON: No suspicious FDG avid osseous process. 06/12/2022 PET/CT IMPRESSION: 1. NECK: * No FDG avid neoplastic process.. 2. CHEST: * No FDG avid neoplastic process.. 3. ABDOMEN/PELVIS: * Significantly decreased size and hypermetabolism of aortocaval/retrocaval lymphadenopathy. There is residual retrocaval soft tissue thickening without focal hypermetabolism suggest treatment related changes.. * No new FDG avid neoplastic process. 4. EXTREMITIES/SKELETON: * No FDG avid neoplastic process.. HEALTH MAINTENANCE: Last mammogram: 10/30/2021 - negative Last colonoscopy: 02/24/2019 Last Pap: 02/10/2018 - Negative Last HPV: 04/09/2016 - Negative ECOG Performance Status: 0- Fully active, able to carry on all pre-disease performance w/o restriction. SUBJECTIVE: Rosita Kennedy reports that she feels well. No vaginal bleeding or discharge. No shortness of breath, cough, or chest pain. No abdominal pain, nausea, or vomiting. No dysuria, gross hematuria, urinary frequency, urinary urgency, or incontinence. Her ECOG performance status is zero (fully active, able to carry on all pre-disease performance without restriction). + Occasional dizziness that has improved some. + intermittent diarrhea and constipation which is being evaluated by her primary care provider. OBJECTIVE: Deferred due to distance health ASSESSMENT: 1. 76 yo stage IA FIGO 2 endometrial cancer, negative LVSI and negative nodes. MMR nl (verified) Lymphatic recurrence L neck, R retrocaval, bilateral pelvis 2016 CT x 6 12/10/2016 - 04/01/2017 RT c 06/07/2017 PE IVC filter 08/2018 Recurrence - Aortocaval lymphadenopathy 12/2021 S/p SBRT w Dr. Youngblood (c. 03/03/2022) *PMHx: Multiple sclerosis PLAN: Rosita presents for follow up 3 months after completing SBRT (completed 03/03/2022). We discussed herpost treatment PET/CT from 06/12 which showed significantly decreased size and hypermetabolism of aortocaval/retrocaval lymphadenopathy as well as residual retrocaval soft tissue thickening without fo alfredo hypermetabolism which suggests treatment related changes. Plan for repeat PET/CT in 3-4 months. Medical Decision Making: Problems: Moderate: 1+ chronic illnesses with change Data: Unique test result(s) reviewed: 1 Risk: Moderate: Moderate risk from testing/treatment Medical Decision Making Level: 4 - Moderate Emily, Aimee Drake, attest that I personally scribed for Dr. Joseluis Perez MD and that the documentation was captured in collaboration with Dr. Joseluis Perez MD. Provider Attestation: Joseluis Murguia MD, personally performed the services described in this documentation. All medical record entries made by the scribe were at my direction and in my presence. I have reviewed the chart and discharge instructions (if applicable) and agree that the record reflects my personal performance and is accurate and complete. 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 She completed SBRT to aortocaval LAD on 03/03/2022. Today she reports overall she is doing very well. Currently she is asymptomatic, no abdominal pain or diarrhea reported. Maintaining adequate oral hydration and nutrition. ADL are done by self. Nil significant to report. PET/CT results discussed with her and her son. NM PET/CT 06/12/22: IMPRESSION: 1. NECK: * No FDG avid neoplastic process.. 2. CHEST: * No FDG avid neoplastic process.. 3. ABDOMEN/PELVIS: * Significantly decreased size and hypermetabolism of aortocaval/retrocaval lymphadenopathy. There is residual retrocaval soft tissue thickening without focal hypermetabolism suggest treatment related changes.. * No new FDG avid neoplastic process. 4. EXTREMITIES/SKELETON: * No FDG avid neoplastic process.. ALLERGIES Allergen Reactions Codeine hives Dye GI Upset Diarrhea after CT oral contrast 01/2018 Erythromycin GI Upset Methylprednisolone Hives IV Sulfa (Sulfonamide * hives MEDICATIONS: Methenamine Hippurate (HIPREX) 1 gram tablet^Take 1 tablet by mouth twice daily with meals.^Disp: 60 tablet^Rfl: 11 meloxicam (MOBIC) 15 mg tablet^Take 1 tablet by mouth once daily. With food.^Disp: 30 tablet^Rfl: 1 atorvastatin (LIPITOR) 40 mg tablet^Take 1 tablet by mouth daily at bedtime. For cholesterol.^Disp:90 tablet^Rfl: 1 furosemide (LASIX) 20 mg tablet^Take one tablet every day but if looses more than 10 pounds in a week then she needs to hold it.^Disp: 45 tablet^Rfl: 3 potassium chloride (K-TAB) 10 mEq tablet^Take 1 tablet by mouth twice daily. Take it every day along with lasix. If looses than 10 pounds then change to every other day^Disp: 180 tablet^Rfl: 3 levothyroxine (LEVOXYL) 25 mcg tablet^Take 1 tablet by mouth once daily. Take on empty stomach. ForThyroid^Disp: 60 tablet^Rfl: 1 buPROPion (WELLBUTRIN) 75 mg tablet^Take it once a day in the morning.^Disp: 60 tablet^Rfl: 0 sertraline (ZOLOFT) 25 mg tablet^Take 1 tablet by mouth once daily.^Disp: 90 tablet^Rfl: 3 mirtazapine (REMERON) 15 mg tablet^Take 1 tablet by mouth daily at bedtime.^Disp: 90 tablet^Rfl: 1 sertraline (ZOLOFT) 100 mg tablet^Take 1 tablet by mouth once daily. To take along with 25 mgs to make a total of 125 mgs^Disp: 90 tablet^Rfl: 3 travoprost (TRAVATAN Z) 0.004 % ophthalmic drops^Use 1 Drop in both eyes daily at bedtime.^Disp: 2.5 mL^Rfl: 2 brimonidine-timolol (COMBIGAN) 0.2-0.5 % ophthalmic solution^Use 1 Drop in the right eye twice daily. Use at 9 AM and 3 PM^Disp: 10 mL^Rfl: 2 ondansetron orally disintegrating (ZOFRAN ODT) 4 mg disintegrating tablet^Take 1 tablet by mouth every 6 hours as needed for nausea/vomiting.^Disp: 45 tablet^Rfl: 1 phenazopyridine (PYRIDIUM, GERIDIUM) 200 mg tablet^Take 1 tablet by mouth three times daily as needed.^Disp: 30 tablet^Rfl: 1 aspirin, enteric coated (ECOTRIN LOW STRENGTH) 81 mg EC tablet^Take 1 tablet by mouth once daily.^Disp: ^Rfl: calcium carb/vitamin D3/vit K1 (VIACTIV ORAL)^Take 1 tablet by mouth once daily.^Disp: ^Rfl: L GASSERI/B BIFIDUM/B LONGUM ([employer] HEALTH ORAL)^Take by mouth.^Disp: ^Rfl: CHOLECALCIFEROL, VITAMIN D3, (VITAMIN D3 ORAL)^Take by mouth once daily.^Disp: ^Rfl: LUTEIN ORAL^Take by mouth.^Disp: ^Rfl: MULTIVITAMIN TABLET PO^Take one(1) tablet daily.^Disp: 0^Rfl: 0 PERTINENT REVIEW OF SYSTEMS: Pain: 0 on a 0-10 pain scale. Pain interventions: none required Diarrhea: none Bowel movement frequency (per day): 1 Rectal bleeding: none Urinary frequency (D/N): 5/1 Hematuria: none Dysuria: none Sexual alteration: Not known Vaginal bleeding: none PHYSICAL EXAM: VS: There were no vitals taken for this visit. KPS: 80 General Appearance: Alert and oriented. No acute distress. ASSESSMENT/PLAN: 76 year old female with PMH MS, depression, PE s/p ICV filter, Stage IA FIGO grade2 endometrioid adenocarcinoma s/p TLH, BSO, and BPLND on 09/12/2014, s/p recurrence in 09/2016 in retrocaval, b/l pelvic LNs, and neck s/p carbotaxol x6c and RT 55 Gy in 25 fx, s/p SBRT 24 Gy in 3 fractions to oligorecurrent aortocaval LAD completed on 03/03/2022 with PET on 06/12/22 with decreased size and hypermetabolism of aortocaval/retrocaval lymphadenopathy Clinically doing well. It has been more than 3 months since completion of SBRT to the aortocaval nodes and her most recent PET scan on 06/12 with improvement in size and PET avidity of her aortocavalnodes. Continue to follow up with Dr Perez from [facility]. We will see her again in future on a PRNbasis. Signed by: Naila Youngblood MD, MSc, MRCP, FRCR, DABR Radiation Oncology Staff Physician June 22, 2022 7:43 AM cc: Rosmery Horn [address] [place] [address] Naila Youngblood [address] [facility] [address] Joseluis Cottrell MD documented in this encounterTrinity Health System10-14-2022 NoteHNO ID: [id number] Author: Mata Barry, Anonymess Service: Nuclear Medicine Author Type: Women'S Studies Lecturer Type: Progress Notes Filed: 06/12/2022 10:12 AM Note Text: RADIOLOGY SERVICE PROGRESS NOTE SERVICE DATE: 06/12/2022 SERVICE TIME: 10:11 AM PATIENT IDENTITY VERIFICATION COMPLETED USING TWO (2) STANDARD IDENTIFIERS: Name and Date of confirmed by patient verbally FALL SCREENING: Has the patient had 2 falls in the last year or 1 fall with injury or currently using an Ambulatory Assistive Device (Walker, Cane, Wheelchair, Crutches, etc.)? Yes, Patient High Risk for Falls What interventions were put in place to prevent falls during this visit? Yellow Falls Risk Wristband Applied PATIENT GENDER DATA: .female : No ALLERGIES: Reviewed and unchanged MEDICATIONS REVIEWED: Yes PATIENT RELEVANT IMPLANT DATA REVIEWED: Not Applicable CREATININE: Creatinine Date Value Ref Range Status 04/14/2022 0.97 (H) 0.58 - 0.96 mg/dL Final 02/12/2022 0.64 0.58 - 0.96 mg/dL Final 11/12/2021 0.69 0.58 - 0.96 mg/dL Final Estimated Glomerular Filtration Rate Date Value Ref Range Status 04/14/2022 61 >=60 mL/min/1.73m? Final Comment: Estimated Glomerular Filtration Rate (eGFR) is calculated using the 2020 CKD-EPI creatinine equation. This equation utilizes serum creatinine, sex, and age as parameters. The creatinine assay has traceable calibration to isotope dilution-mass spectrometry. Refer to KDIGO guidelines for clinical interpretation. In patients with unstable renal function, e.g. those with acute kidney injury, the eGFR may not accurately reflect actual GFR. eGFR- Date Value Ref Range Status 10/22/2021 >60 Final P.O.C.T. RESULTS: N/A June 12, [address] PERFORMED: No IV SITE: Ambulatory: RT PORT ACCESSED. SEE NURSES NOTES POST EXAM PIV STATUS: Discontinued PROCEDURE TYPE: NM INJECT: PET/CT BODY SCAN. 7.2 mCi F18 FDG. No other medications given.. ADMINISTRATION TIME: 1000 PATIENT DISCHARGED TO: Ambulatory patient, left IN department area. A Diagnostic radioactive procedure has taken place, with no further precautions necessary other than routine body substance precautions. More information regarding radiation safety can be found using this link: [email or web address] SIGNATURE: Lyn Valencia [email or web address] PATIENT NAME: Rosita Kennedy DATE: June 12, 2022 TIME: 10:11 AM [phone] History of Present illness Narrative* Lyn Valencia - 06/12/2022 10:00 AM EDT RADIOLOGY SERVICE PROGRESS NOTE SERVICE DATE: 06/12/2022 SERVICE TIME: 10:11 AM PATIENT IDENTITY VERIFICATION COMPLETED USING TWO (2) STANDARD IDENTIFIERS: Name and Date of confirmed by patient verbally FALL SCREENING: Has the patient had 2 falls in the last year or 1 fall with injury or currently using an Ambulatory Assistive Device (Walker, Cane, Wheelchair, Crutches, etc.)? Yes, Patient High Riskfor Falls What interventions were put in place to prevent falls during this visit? [place] Risk Wristband Applied PATIENT GENDER DATA: .female : No ALLERGIES: Reviewed and unchanged MEDICATIONS REVIEWED: Yes PATIENT RELEVANT IMPLANT DATA REVIEWED: Not Applicable CREATININE: Creatinine Date Value Ref Range Status 04/14/2022 0.97 (H) 0.58 - 0.96 mg/dL Final 02/12/2022 0.64 0.58 - 0.96 mg/dL Final 11/12/2021 0.69 0.58 - 0.96 mg/dL Final Estimated Glomerular Filtration Rate Date Value Ref Range Status 04/14/2022 61 >=60 mL/min/1.73m Final Comment: Estimated Glomerular Filtration Rate (eGFR) is calculated using the 2020 CKD-EPI creatinine equation. This equation utilizes serum creatinine, sex, and age as parameters. The creatinine assay has traceable calibration to isotope dilution- mass spectrometry. Refer to KDIGO guidelines for clinical interpretation. In patients with unstable renal function, e.g. those with acute kidney injury, the eGFRmay not accurately reflect actual GFR. eGFR- Date Value Ref Range Status 10/22/2021 >60 Final P.O.C.T. RESULTS: N/A June 12, [address] PERFORMED: No IV SITE: Ambulatory: RT PORT ACCESSED. SEE NURSES NOTES POST EXAM PIV STATUS: Discontinued PROCEDURE TYPE: NM INJECT: PET/CT BODY SCAN. 7.2 mCi F18 FDG. No other medications given.. ADMINISTRATION TIME: 1000 PATIENT DISCHARGED TO: Ambulatory patient, left [place] department area. A Diagnostic radioactive procedure has taken place, with no further precautions necessary other than routine body substance precautions. More information regarding radiation safety can be found usingthis link: [email or web address] SIGNATURE: Lyn Valencia PATIENT NAME: Rosita Kennedy DATE: June 12, 2022 TIME: 10:11 AM PAGER/CONTACT #: documented in this encounterTrinity Health System10-01-2022 History of Present illness Narrative* Rosmery Horn MD - 05/30/2022 8:58 AM EDT Reason for Visit Patient presents with: Diarrhea Rosita Kennedy is a 76 year old female who presents here today for Above Complaints.. 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 DELIVERED DOSE: The Aortocaval LNs PTV received a total dose of 2400 cGy in 3 fractions at 800 cGy/fraction prescribed to Max Dose at 71.0% IDL using 10 MV photons with SBRT Coplanar VMAT technique. RT completed 03/03/2022. Back to being at home, able to stabilize herself. Her main issues are the dizziness and diarrhea.+ Dizziness: when she turns any side, it happens occasionally, she is drinking around 3 glasses of water a day. No other drinks. For breakfast she has half a piece of toast- not much fruit or vegetable -. Lunch is a sandwich- cold cuts and cheese. Dinner is usually some type of protein. Diarrhea: the patient has been having diarrhea/ loose bowels in cycles, she has diarrhea for a 2/3,which is urgent, soft, multiple times a day, soiling all her furniture, sheets etc days and then regular bowels, her regular bowels are formed, sausage shaped, and do not disintegrate in the toilet. She does not have constipation. No problem-specific Assessment & Plan notes found for this encounter. PAST MEDICAL HISTORY Diagnosis Date Cataracts, bilateral COAG (chronic open-angle glaucoma) CRVO (central retinal vein occlusion) Disorder of bone and cartilage, unspecified Multiple sclerosis (HCC) 2001 remission currently Pseudophakia, both eyes Pyelonephritis, unspecified 01/2010 Pyelonephritis Uterine cancer (HCC) 08/08/2014 PAST SURGICAL HISTORY Procedure Laterality Date DELIVERY ONLY , low cervical X3 COLONOSCOPY 05/18/2016 Dr. Gibbs. no bx taken COLONOSCOPY, GI 1998, 2009 EYE SURGERY PROCEDURE Left 04/11/2021 Xen Gel stent EYLEA (AFLIBERCEPT) 2MG INTRAVITREAL INJECTION OD (RIGHT EYE) Right 04/02/2016 #7 INSERT ANT SEGMENT DRAIN INT 11/21/2014 iStent Implantation Left Eye LIG/TRNSXJ FLP TUBE ABDL/VAG APPR UNI/BI 1976 PAST SURGICAL HISTORY OF right EYE SURGERY AGE 7 PAST SURGICAL HISTORY OF Right 11/06/2020 Xen Gel PULMONARY FUNCTION TEST 06/07/03 XCAPSL CTRC RMVL INSJ IO LENS PROSTH W/O ECP 11/21/2014 Cataract Extraction with PC IOL/Femtosecond Laser Left Eye FAMILY HISTORY Problem Relation Age of Onset Breast Cancer Sister Glaucoma Sister Heart Father mi Diabetes Father Hypertension Mother Alzheimer's Disease Mother Macular Degen Mother Glaucoma Mother Macular Degen Maternal Grandmother Social History Tobacco Use Smoking status: Never Smokeless tobacco: Never Vaping Use Vaping Use: Never used Substance Use Topics Alcohol use: Yes Comment: 1 drink per month not used in 1 year Drug use: No Past medical history, appointments, medications, allergies reviewed. Pertinent Lab/Diagnostic Studies are reviewed and discussed today Current Outpatient Medications: Methenamine Hippurate (HIPREX) 1 gram tablet meloxicam (MOBIC) 15 mg tablet atorvastatin (LIPITOR) 40 mg tablet furosemide (LASIX) 20 mg tablet potassium chloride (K-TAB) 10 mEq tablet levothyroxine (LEVOXYL) 25 mcg tablet buPROPion (WELLBUTRIN) 75 mg tablet sertraline (ZOLOFT) 25 mg tablet mirtazapine (REMERON) 15 mg tablet sertraline (ZOLOFT) 100 mg tablet travoprost (TRAVATAN Z) 0.004 % ophthalmic drops brimonidine-timolol (COMBIGAN) 0.2-0.5 % ophthalmic solution ondansetron orally disintegrating (ZOFRAN ODT) 4 mg disintegrating tablet phenazopyridine (PYRIDIUM, GERIDIUM) 200 mg tablet aspirin, enteric coated (ECOTRIN LOW STRENGTH) 81 mg EC tablet calcium carb/vitamin D3/vit K1 (VIACTIV ORAL) L GASSERI/B BIFIDUM/B LONGUM ([facility] ORAL) CHOLECALCIFEROL, VITAMIN D3, (VITAMIN D3 ORAL) LUTEIN ORAL MULTIVITAMIN TABLET PO Current Facility-Administered Medications: perflutren lipid microspheres 1.3 mL in NaCl (PF) 0.9% 10 mL injection (DEFINITY) sodium chloride 0.9 % (flush) 10 mL (BD POSIFLUSH) Review of Systems CONSTITUTIONAL: No fevers, chills night sweats, unintended weight loss CARDIOVASCULAR: No chest pain, dyspnea, palpitations, orthopnea, PND, ankle edema. PULM: No dyspnea, unexplained cough. GI: No dysphagia/odynophagia, problematic reflux, constipation, diarrhea, changes in stool habits, hematochezia, melena. : No new urinary complaints, including dysuria, gross hematuria or pyuria. NEURO: No new balance problems, peripheral weakness/paresthesias or numbness of concern. Physical Exam BP 130/82 Pulse 88 Resp 16 Wt 50.3 kg (111 lb) SpO2 94% BMI 21.68 kg/m General appearance: Well appearing, alert, in no acute distress, well nourished. Skin: Skin color, texture, turgor normal, no suspicious rashes or lesions Head: Normocephalic, no masses, lesions, tenderness or abnormalities Eyes: Anicteric sclera. Pupils are equally round and reactive to light. Extraocular movements are intact. Lungs: Lungs clear to auscultation. No wheezing, rhonchi, rales Heart: RRR without murmur, gallop, or rubs. Extremities: No deformities, edema, skin discoloration, clubbing or cyanosis. Good capillary refill. ASSESSMENT/PLAN: 1. Diarrhea, unspecified type - ICD9: 787.91, ICD10: R19.7 (primary diagnosis) ? Radiation related? - TSH BLD 2. Hypomagnesemia - ICD9: 275.2, ICD10: E83.42 - MAGNESIUM BLD 3. Dizziness - ICD9: 780.4, ICD10: R42 - CONSULT TO VESTIBULAR REHAB PT 4. Endometrial cancer, grade I (HCC) - ICD9: 182.0, ICD10: C54.1 Rosmery Horn MD documented in this encounterTrinity [facility] System10-01-2022 Miscellaneous Notes* Telephone Encounter - Rosmery Horn MD - 05/30/2022 8:49 AM EDT Reason for Visit No chief complaint on file. Rosita Kennedy is a 76 year old female who presents here today for Above Complaints.. 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 DELIVERED DOSE: The Aortocaval LNs PTV received a total dose of 2400 cGy in 3 fractions at 800 cGy/fraction prescribed to Max Dose at 71.0% IDL using 10 MV photons with SBRT Coplanar VMAT technique. RT completed 03/03/2022. No problem-specific Assessment & Plan notes found for this encounter. PAST MEDICAL HISTORY Diagnosis Date Cataracts, bilateral COAG (chronic open-angle glaucoma) CRVO (central retinal vein occlusion) Disorder of bone and cartilage, unspecified Multiple sclerosis (HCC) 2001 remission currently Pseudophakia, both eyes Pyelonephritis, unspecified 01/2010 Pyelonephritis Uterine cancer (HCC) 08/08/2014 PAST SURGICAL HISTORY Procedure Laterality Date DELIVERY ONLY , low cervical X3 COLONOSCOPY 05/18/2016 Dr. Gibbs. no bx taken COLONOSCOPY, GI 1998, 2009 EYE SURGERY PROCEDURE Left 04/11/2021 Xen Gel stent EYLEA (AFLIBERCEPT) 2MG INTRAVITREAL INJECTION OD (RIGHT EYE) Right 04/02/2016 #7 INSERT ANT SEGMENT DRAIN INT 11/21/2014 iStent Implantation Left Eye LIG/TRNSXJ FLP TUBE ABDL/VAG APPR UNI/BI 1976 PAST SURGICAL HISTORY OF right EYE SURGERY AGE 7 PAST SURGICAL HISTORY OF Right 11/06/2020 Xen Gel PULMONARY FUNCTION TEST 06/07/03 XCAPSL CTRC RMVL INSJ IO LENS PROSTH W/O ECP 11/21/2014 Cataract Extraction with PC IOL/Femtosecond Laser Left Eye FAMILY HISTORY Problem Relation Age of Onset Breast Cancer Sister Glaucoma Sister Heart Father mi Diabetes Father Hypertension Mother Alzheimer's Disease Mother Macular Degen Mother Glaucoma Mother Macular Degen Maternal Grandmother Social History Tobacco Use Smoking status: Never Smokeless tobacco: Never Vaping Use Vaping Use: Never used Substance Use Topics Alcohol use: Yes Comment: 1 drink per month not used in 1 year Drug use: No Past medical history, appointments, medications, allergies reviewed. Pertinent Lab/Diagnostic Studies are reviewed and discussed today Current Outpatient Medications: Methenamine Hippurate (HIPREX) 1 gram tablet meloxicam (MOBIC) 15 mg tablet atorvastatin (LIPITOR) 40 mg tablet furosemide (LASIX) 20 mg tablet potassium chloride (K-TAB) 10 mEq tablet levothyroxine (LEVOXYL) 25 mcg tablet buPROPion (WELLBUTRIN) 75 mg tablet sertraline (ZOLOFT) 25 mg tablet mirtazapine (REMERON) 15 mg tablet sertraline (ZOLOFT) 100 mg tablet travoprost (TRAVATAN Z) 0.004 % ophthalmic drops brimonidine-timolol (COMBIGAN) 0.2-0.5 % ophthalmic solution ondansetron orally disintegrating (ZOFRAN ODT) 4 mg disintegrating tablet phenazopyridine (PYRIDIUM, GERIDIUM) 200 mg tablet aspirin, enteric coated (ECOTRIN LOW STRENGTH) 81 mg EC tablet calcium carb/vitamin D3/vit K1 (VIACTIV ORAL) L GASSERI/B BIFIDUM/B LONGUM ([facility] ORAL) CHOLECALCIFEROL, VITAMIN D3, (VITAMIN D3 ORAL) LUTEIN ORAL MULTIVITAMIN TABLET PO Current Facility-Administered Medications: perflutren lipid microspheres 1.3 mL in NaCl (PF) 0.9% 10 mL injection (DEFINITY) sodium chloride 0.9 % (flush) 10 mL (BD POSIFLUSH) Review of Systems CONSTITUTIONAL: No fevers, chills night sweats, unintended weight loss CARDIOVASCULAR: No chest pain, dyspnea, palpitations, orthopnea, PND, ankle edema. PULM: No dyspnea, unexplained cough. GI: No dysphagia/odynophagia, problematic reflux, constipation, diarrhea, changes in stool habits, hematochezia, melena. : No new urinary complaints, including dysuria, gross hematuria or pyuria. NEURO: No new balance problems, peripheral weakness/paresthesias or numbness of concern. Physical Exam There were no vitals taken for this visit. General appearance: Well appearing, alert, in no acute distress, well nourished. Skin: Skin color, texture, turgor normal, no suspicious rashes or lesions Head: Normocephalic, no masses, lesions, tenderness or abnormalities Eyes: Anicteric sclera. Pupils are equally round and reactive to light. Extraocular movements are intact. Lungs: Lungs clear to auscultation. No wheezing, rhonchi, rales Heart: RRR without murmur, gallop, or rubs. Extremities: No deformities, edema, skin discoloration, clubbing or cyanosis. Good capillary refill. documented in this encounterTrinity Health System09-30-2022 Miscellaneous Notes* Telephone Encounter - Ad Encarnacion RN - 05/29/2022 10:58 AM EDT Protocol recommends see provider in 24 hours. Scheduled appt. Reason for Disposition [1] MODERATE diarrhea (e.g., 4-6 times / day more than normal) AND [2] present > 48 hours (2 days) Answer Assessment - Initial Assessment Questions 1. DIARRHEA SEVERITY: 4 watery stools in last 24 hours. 2. ONSET: Began Wed. 3. BM CONSISTENCY: Watery 4. VOMITING: No 5. ABDOMINAL PAIN: No 6. ABDOMINAL PAIN SEVERITY: No 7. ORAL INTAKE: No vomiting. Probably drank about 24 oz in last 24 hours. 8. HYDRATION: No dizziness. No weakness. Does have dry mouth. No weight loss. Last void about an hour ago. 9. EXPOSURE: No travel. No exposure to anyone with diarrhea. Has not eaten spoiled food. Tues ate spanish and that night had a blow out. 10. ANTIBIOTIC USE: Macrobid daily for frequent UTI's for a couple years. 11. OTHER SYMPTOMS: No fever. No blood in stool. Having incontinent episodes. Had radiation sessiona month ago (had 3 sessions for uterine CA). Received covid and flu vaccine 2 days ago. 12. 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 DELIVERED DOSE: The Aortocaval LNs PTV received a total dose of 2400 cGy in 3 fractions at 800 cGy/fraction prescribed to Max Dose at 71.0% IDL using 10 MV photons with SBRT Coplanar VMAT technique. RT completed 03/03/2022. INTERVAL HISTORY: This was a zoom visit that was done after obtaining informed consent. Ms Kennedy completed her RT approximately 8 weeks back. She is doing well and denies any symptoms of clinical significance. No abdominal pain. No GI issues reported. ALLERGIES Allergen Reactions Codeine hives Dye GI Upset Diarrhea after CT oral contrast 01/2018 Erythromycin GI Upset Methylprednisolone Hives IV Sulfa (Sulfonamide * hives MEDICATIONS: Methenamine Hippurate (HIPREX) 1 gram tablet^Take 1 tablet by mouth twice daily with meals.^Disp: 60 tablet^Rfl: 11 meloxicam (MOBIC) 15 mg tablet^Take 1 tablet by mouth once daily. With food.^Disp: 30 tablet^Rfl: 1 atorvastatin (LIPITOR) 40 mg tablet^Take 1 tablet by mouth daily at bedtime. For cholesterol.^Disp:90 tablet^Rfl: 1 furosemide (LASIX) 20 mg tablet^Take one tablet every day but if looses more than 10 pounds in a week then she needs to hold it.^Disp: 45 tablet^Rfl: 3 potassium chloride (K-TAB) 10 mEq tablet^Take 1 tablet by mouth twice daily. Take it every day along with lasix. If looses than 10 pounds then change to every other day^Disp: 180 tablet^Rfl: 3 levothyroxine (LEVOXYL) 25 mcg tablet^Take 1 tablet by mouth once daily. Take on empty stomach. ForThyroid^Disp: 60 tablet^Rfl: 1 buPROPion (WELLBUTRIN) 75 mg tablet^Take it once a day in the morning.^Disp: 60 tablet^Rfl: 0 sertraline (ZOLOFT) 25 mg tablet^Take 1 tablet by mouth once daily.^Disp: 90 tablet^Rfl: 3 mirtazapine (REMERON) 15 mg tablet^Take 1 tablet by mouth daily at bedtime.^Disp: 90 tablet^Rfl: 1 sertraline (ZOLOFT) 100 mg tablet^Take 1 tablet by mouth once daily. To take along with 25 mgs to make a total of 125 mgs^Disp: 90 tablet^Rfl: 3 travoprost (TRAVATAN Z) 0.004 % ophthalmic drops^Use 1 Drop in both eyes daily at bedtime.^Disp: 2.5 mL^Rfl: 2 brimonidine-timolol (COMBIGAN) 0.2-0.5 % ophthalmic solution^Use 1 Drop in the right eye twice daily. Use at 9 AM and 3 PM^Disp: 10 mL^Rfl: 2 ondansetron orally disintegrating (ZOFRAN ODT) 4 mg disintegrating tablet^Take 1 tablet by mouth every 6 hours as needed for nausea/vomiting.^Disp: 45 tablet^Rfl: 1 phenazopyridine (PYRIDIUM, GERIDIUM) 200 mg tablet^Take 1 tablet by mouth three times daily as needed.^Disp: 30 tablet^Rfl: 1 aspirin, enteric coated (ECOTRIN LOW STRENGTH) 81 mg EC tablet^Take 1 tablet by mouth once daily.^Disp: ^Rfl: calcium carb/vitamin D3/vit K1 (VIACTIV ORAL)^Take 1 tablet by mouth once daily.^Disp: ^Rfl: L GASSERI/B BIFIDUM/B LONGUM ([facility] ORAL)^Take by mouth.^Disp: ^Rfl: CHOLECALCIFEROL, VITAMIN D3, (VITAMIN D3 ORAL)^Take by mouth once daily.^Disp: ^Rfl: LUTEIN ORAL^Take by mouth.^Disp: ^Rfl: MULTIVITAMIN TABLET PO^Take one(1) tablet daily.^Disp: 0^Rfl: 0 REVIEW OF SYSTEMS: GENERAL: Negative for weight loss, fevers, chills, or night sweats. HEENT: Negative for sudden vision or hearing changes. NECK: Negative for masses in the neck. RESPIRATORY: Negative for cough or shortness of breath. CARDIAC: Negative for chest pain, palpitations, murmurs, or syncopal episodes. GI: Negative for nausea, vomiting, diarrhea, constipation, blood per rectum, or melena. : Negative for dysuria, hematuria, urgency, frequency or incontinence. MUSCULOSKELETAL: Negative for limitations in movement, pain, or swelling. NEURO: Negative for dizziness, headache, weakness or numbness. HEMATOLOGIC: Negative for bleeding or easy bruising. SKIN: Negative for rashes or other skin changes. PHYSICAL EXAM: VS: There were no vitals taken for this visit. KPS: 90 General Appearance: Alert and oriented. No acute distress. ASSESSMENT AND PLAN: This was a Zoom visit that was done after obtaining informed consent. She is doing well post RT without any issues. We will arrange for a PET/CT scan in [place] early May giles further zoom visit to discuss results. Signed by: Naila Youngblood MD, MSc, MRCP, FRCR, DABR Radiation Oncology Staff Physician May 04, 2022 6:18 PM cc: Rosmery Horn [address] [place] [address] Naila Youngblood [address] [facility] [id number] documented in this encounterTrinity Health System09-02-2022 Instructions* Patient Instructions* Peter Soto MD - 05/01/2022 11:15 AM EDT Current Ophthalmic Meds travoprost (TRAVATAN Z) 0.004 % ophthalmic drops Use 1 Drop in both eyes daily at bedtime. brimonidine-timolol (COMBIGAN) 0.2-0.5 % ophthalmic solution Use 1 Drop in the right eye twice daily. Use at 9 AM and 3 PM If you have any questions please contact our office at [phone]. After office hours or on the weekend, please call Dr. Soto on his cell phone at [phone]. documented in this encounterTrinity Health System09-02-2022 History of Present illness Narrative* Peter Soto MD - 05/01/2022 11:12 AM EDT ASSESSMENT/PLAN: 1. Optic atrophy, right eye - ICD9: 377.10, ICD10: H47.20 - history of Central retinal vein occlusion right eye 2. Primary open angle glaucoma (POAG) of right eye, severe stage - ICD9: 365.11, 365.73, ICD10: H40.1113 (primary diagnosis) 3. Primary open angle glaucoma (POAG) of left eye, moderate stage - ICD9: 365.11, 365.72, ICD10: H40.1122 - unable to obtain OCT of nerve due to limitation of adduction Status Post Xen Gel Left Eye (04/11/2021) Intraocular pressure well controlled post-operative Xen Gel Left Eye. Status Post Xen Gel Right Eye (11/06/2020) Status Post Bleb Needling (12/06/2020) Current Ophthalmic Meds travoprost (TRAVATAN Z) 0.004 % ophthalmic drops Use 1 Drop in both eyes daily at bedtime. brimonidine-timolol (COMBIGAN) 0.2-0.5 % ophthalmic solution Use 1 Drop in the right eye twice daily. Use at 9 AM and 3 PM The nature of glaucoma was discussed, with emphasis on the non-reversible damage to the optic nerve. Treatment options and the importance of regular examinations and testing were covered in detail, as well as the consequences of non-compliance. The patient was given the opportunity to ask questions. Stresses compliancy of eye drops with patient. 4. Visual field loss - ICD9: 368.40, ICD10: H53.40 - Right Eye 5. Multiple sclerosis (HCC) - ICD9: 340, ICD10: G35 - Continue to monitor with primary care physician/Neurology. Peter Soto MD I have confirmed and edited as necessary the relevant ophthalmic history, review of systems, surgical history, and ophthalmological examination findings as obtained by the ophthalmic technical staff.I have seen and examined Rosita Kennedy. I have discussed the examination findings, diagnosis, andtreatment options with Rosita Kennedy and/or her family. I have also reviewed and agree with the assessment and plan as stated above and agree with all its relevant components. I gave the patient the opportunity to ask questions about the findings, diagnosis, and treatment options. documented in this encounterTrinity Health System08-29-2022 NoteDischarge Summary PHYSICAL THERAPY Referral/Discharge Information: Date of Discharge: 04/27/22 Date of Last Visit: 02/06/22 Date of Evaluation: 12/05/21 Number of Attended Visits: 11 Referred by: Dr. Horn Referred for: balance disorder, ambulatory dysfunction Problems/Issues Addressed: (Decreased LE strength, impaired balance, abnormal gait) Status at Discharge: (Unknown secondary to unplanned discharge) Reason for Discharge: Has not attended PT In the past 30 days. Signatures Electronically signed by : Tiffanie Bledsoe, PT; Apr 27 2022 9:13AM EST (Author) [id number] Instructions* Patient Instructions* Naya Dash APRN.CNP - 04/14/2022 11:43 AM EDT [facility]- Dr. Rg documented in this encounterTrinity Health System08-16-2022 History of Present illness Narrative* Naya Dash APRN.CNP - 04/14/2022 11:38 AM EDT CC: Patient presents with: Dizziness HPI Rosita Kennedy is a 76 year old female who presents today for above. Patient reports intermittent lightheadedness for a few weeks. Worse with position changes and firstthing in the morning. Alleviated with rest. Associated with feeling off balance. Denies syncope, feeling faint, vertigo, slurred speech, weakness, facial drooping, numbness, tingling, tremors, shaking, lack of coordination, falling. Treated with antibiotics for frequent UTI's the past 6 months. Most recent UTI on 04/08, prescribed Cipro. She has had diarrhea intermittently for months. worse since she started the Cipro. Taking Imodium as needed. Denies fever, chills, abdominal pain, vomiting, black/bloody stools. She has seen urologist for recurrent UTI's. Cystoscopy was normal. Referred to uro-gynecology but has not scheduled appointment yet She was receiving radiation treatment for uterine cancer, last dose in February. She will have surveillance CT abdomen/pelvis this month REVIEW OF SYSTEMS See HPI PAST MEDICAL HISTORY Diagnosis Date Cataracts, bilateral COAG (chronic open-angle glaucoma) CRVO (central retinal vein occlusion) Disorder of bone and cartilage, unspecified Multiple sclerosis (HCC) 2001 remission currently Pseudophakia, both eyes Pyelonephritis, unspecified 01/2010 Pyelonephritis Uterine cancer (HCC) 08/08/2014 PAST SURGICAL HISTORY Procedure Laterality Date DELIVERY ONLY , low cervical X3 COLONOSCOPY 05/18/2016 Dr. Gibbs. no bx taken COLONOSCOPY, GI 1998, 2009 EYE SURGERY PROCEDURE Left 04/11/2021 Xen Gel stent EYLEA (AFLIBERCEPT) 2MG INTRAVITREAL INJECTION OD (RIGHT EYE) Right 04/02/2016 #7 INSERT ANT SEGMENT DRAIN INT 11/21/2014 iStent Implantation Left Eye LIG/TRNSXJ FLP TUBE ABDL/VAG APPR UNI/BI 1976 PAST SURGICAL HISTORY OF right EYE SURGERY AGE 7 PAST SURGICAL HISTORY OF Right 11/06/2020 Xen Gel PULMONARY FUNCTION TEST 06/07/03 XCAPSL CTRC RMVL INSJ IO LENS PROSTH W/O ECP 11/21/2014 Cataract Extraction with PC IOL/Femtosecond Laser Left Eye ALLERGIES Codeine, Dye, Erythromycin, Methylprednisolone, and Sulfa (Sulfonamide Antibiotics) MEDICATIONS ciprofloxacin HCl (CIPRO) 500 mg tablet^Take 1 tablet by mouth twice daily for 7 days.^Disp: 14 tablet^Rfl: 0 Methenamine Hippurate (HIPREX) 1 gram tablet^Take 1 tablet by mouth twice daily with meals.^Disp: 60 tablet^Rfl: 11 meloxicam (MOBIC) 15 mg tablet^Take 1 tablet by mouth once daily. With food.^Disp: 30 tablet^Rfl: 1 atorvastatin (LIPITOR) 40 mg tablet^Take 1 tablet by mouth daily at bedtime. For cholesterol.^Disp:90 tablet^Rfl: 1 furosemide (LASIX) 20 mg tablet^Take one tablet every day but if looses more than 10 pounds in a week then she needs to hold it.^Disp: 45 tablet^Rfl: 3 potassium chloride (K-TAB) 10 mEq tablet^Take 1 tablet by mouth twice daily. Take it every day along with lasix. If looses than 10 pounds then change to every other day^Disp: 180 tablet^Rfl: 3 levothyroxine (LEVOXYL) 25 mcg tablet^Take 1 tablet by mouth once daily. Take on empty stomach. ForThyroid^Disp: 60 tablet^Rfl: 1 buPROPion (WELLBUTRIN) 75 mg tablet^Take it once a day in the morning.^Disp: 60 tablet^Rfl: 0 sertraline (ZOLOFT) 25 mg tablet^Take 1 tablet by mouth once daily.^Disp: 90 tablet^Rfl: 3 mirtazapine (REMERON) 15 mg tablet^Take 1 tablet by mouth daily at bedtime.^Disp: 90 tablet^Rfl: 1 sertraline (ZOLOFT) 100 mg tablet^Take 1 tablet by mouth once daily. To take along with 25 mgs to make a total of 125 mgs^Disp: 90 tablet^Rfl: 3 cephALEXin (KEFLEX) 250 mg capsule^Take 1 capsule by mouth once daily.^Disp: 90 capsule^Rfl: 1 travoprost (TRAVATAN Z) 0.004 % ophthalmic drops^Use 1 Drop in both eyes daily at bedtime.^Disp: 2.5 mL^Rfl: 2 brimonidine-timolol (COMBIGAN) 0.2-0.5 % ophthalmic solution^Use 1 Drop in the right eye twice daily. Use at 9 AM and 3 PM^Disp: 10 mL^Rfl: 2 ondansetron orally disintegrating (ZOFRAN ODT) 4 mg disintegrating tablet^Take 1 tablet by mouth every 6 hours as needed for nausea/vomiting.^Disp: 45 tablet^Rfl: 1 phenazopyridine (PYRIDIUM, GERIDIUM) 200 mg tablet^Take 1 tablet by mouth three times daily as needed.^Disp: 30 tablet^Rfl: 1 aspirin, enteric coated (ECOTRIN LOW STRENGTH) 81 mg EC tablet^Take 1 tablet by mouth once daily.^Disp: ^Rfl: wheat dextrin (BENEFIBER SUGAR FREE, DEXTRIN,) 3 gram/4 gram powd^Take 2 teaspoonsful by mouth oncedaily.^Disp: ^Rfl: calcium carb/vitamin D3/vit K1 (VIACTIV ORAL)^Take 1 tablet by mouth once daily.^Disp: ^Rfl: Vaginal Lubricant (REPLENS) gel^Use 6.7 g vaginally every other day.^Disp: 1 Tube^Rfl: 5 L GASSERI/B BIFIDUM/B LONGUM ([employer] [facility] ORAL)^Take by mouth.^Disp: ^Rfl: CHOLECALCIFEROL, VITAMIN D3, (VITAMIN D3 ORAL)^Take by mouth once daily.^Disp: ^Rfl: LUTEIN ORAL^Take by mouth.^Disp: ^Rfl: MULTIVITAMIN TABLET PO^Take one(1) tablet daily.^Disp: 0^Rfl: 0 FAMILY HISTORY Problem Relation Age of Onset Breast Cancer Sister Glaucoma Sister Heart Father mi Diabetes Father Hypertension Mother Alzheimer's Disease Mother Macular Degen Mother Glaucoma Mother Macular Degen Maternal Grandmother Social History Tobacco Use Smoking status: Never Smokeless tobacco: Never Vaping Use Vaping Use: Never used Substance Use Topics Alcohol use: Yes Comment: 1 drink per month not used in 1 year Drug use: No PHYSICAL EXAM BP 132/84 Pulse 92 Resp 12 Wt 50.8 kg (112 lb) BMI 21.87 kg/m General Appearance: well appearing, in no acute distress, alert Skin: Skin color, texture, turgor normal for age; Eyes: PERRLA, conjunctiva pink and moist, no icterus, sclera white, non-injected Oropharynx: moist Lungs: Lungs clear to auscultation. No wheezing, rhonchi, rales. Heart: RRR without murmur, gallop, or rubs. No ectopy Abdomen: Abdomen soft, non-tender. Bowel sounds normal. No masses, organomegaly. No CVA tenderness DATA REVIEWED: Most recent labs ASSESSMENT/PLAN: 1. Positional lightheadedness - ICD9: 780.4, ICD10: R42 (primary diagnosis) Orthostatic. No alarm symptoms or exam findings. Check stat labs: - CBC + DIFF - COMP METABOLIC PANEL Patient instructed to increase hydration, changes position slowly Follow-up pending results 2. Diarrhea, unspecified type - ICD9: 787.91, ICD10: R19.7 Multiple possible etiologies including medications, radiation treatment, IBS Further evaluation with: - CBC + DIFF - COMP METABOLIC PANEL - C. DIFFICILE PCR - FECAL OCCULT BLOOD TEST 3. Recurrent UTI - ICD9: 599.0, ICD10: N39.0 Urine culture showing sensitivity to Cipro, continue until completed. Follow-up with uro-gynecology Prescription instructions reviewed with patient as applicable. Potential red flag symptoms discussed with the patient. Reviewed appropriate action plan to take if red flag symptoms occur. Patient agreeable to treatment plan. Naya Dash APRN.CNP documented in this encounterTrinity Health System08-10-2022 Instructions* Patient Instructions* Jackie Light APRN.CNP - 04/08/2022 5:57 PM EDT Images from the original note were not included. Urinary Problem-When to Seek Help? Symptoms of a urinary problem may lead to a bladder infection. Women are at greater risk of a urinary tract infection than are men. Most urinary tract infections in women are caused by bacteria and involve the lower urinary tract including the bladder and urethra. Symptoms: Pain or burning when passing urine, urgency, frequency, blood in the urine, difficult emptying your bladder, and lower abdominal fullness or pressure. Common Causes: Sexual intercourse, menopause, constipation, uncontrolled diabetes, dehydration and feminine products such as tampons, and kidney stones. When to Get Help: Seek medical attention if you get frequent bladder infections, urinary concerns such as leakage, blood in the urine or frequent need to urinate. You may be recommended to get help from a specialist, such as a urologist. Diagnosis & Treatment: Lab testing may include: urinalysis, and urine culture that can be collected in the lab or walk-in clinic. Most bladder infections can easily be treated. A physician, nurse practitioner or physician resident programs assistant may treat with a short course of an antibiotic. Delaying treatment can lead to worsening symptoms, like a kidney infection. Self-Care: Avoid a full bladder, bubble baths, bath oils, food and beverages that may irritate the bladder such as caffeine. Avoid spermicide foam and diaphragms Void before and after sexual intercourse Wipe front to back after using the bathroom. Stay hydrated Stop Smoking Follow-up Care: Follow up testing is not needed in healthy young women if symptoms resolve. documented in this encounterTr[facility] System08-10-2022 History of Present illness Narrative* Jackie Light APRN.CNP - 04/08/2022 5:36 PM EDT This note was created using NoteWriter. Subjective Rosita Kennedy is a 76 year old female. 76 year old female with PMH of MS, recurrent UTI, and uterine CA presents with think I have a UTI fatigue and urinary frequency Acute onset one week +urinary frequency +fatigue Denies pain,fever,chills, rash/lesions,N,V,D, Pt states I get them all the time and never have the normal symptoms or pain She takes Macrobid daily. Endorses that she attempted to follow up with Abebe Gonsalez, but states there was confusion on herlast appointment. She has been recommended to see urogyn. Endorses that she has required IV ATB infusions related to growth The history is provided by the patient. No continuous churn buttermaker was used. UTI This is a recurrent problem. The current episode started more than 1 week ago. The problem occurs every urination. The problem has been gradually worsening. Quality: denies pain. The patient is experiencing no pain. There has been no fever (99.1). She is Not sexually active. There is No history of pyelonephritis. Associated symptoms include frequency. Pertinent negatives include no chills, no sweats, no nausea, no vomiting, no discharge, no hematuria, no hesitancy, no possible , no urgency and no flank pain. Associated symptoms comments: fatigue. She has tried nothing for the symptoms. Her past medical history is significant for urological procedure, recurrent UTIs and urinary stasis. Her past medical history does not include kidney stones, single kidney or catheterization. Past medical history comments: Uterine CA, Radiation, MS. PAST MEDICAL HISTORY Diagnosis Date Cataracts, bilateral COAG (chronic open-angle glaucoma) CRVO (central retinal vein occlusion) Disorder of bone and cartilage, unspecified Multiple sclerosis (HCC) 2001 remission currently Pseudophakia, both eyes Pyelonephritis, unspecified 01/2010 Pyelonephritis Uterine cancer (HCC) 08/08/2014 PAST SURGICAL HISTORY Procedure Laterality Date DELIVERY ONLY , low cervical X3 COLONOSCOPY 05/18/2016 Dr. Gibbs. no bx taken COLONOSCOPY, GI 1998, 2009 EYE SURGERY PROCEDURE Left 04/11/2021 Xen Gel stent EYLEA (AFLIBERCEPT) 2MG INTRAVITREAL INJECTION OD (RIGHT EYE) Right 04/02/2016 #7 INSERT ANT SEGMENT DRAIN INT 11/21/2014 iStent Implantation Left Eye LIG/TRNSXJ FLP TUBE ABDL/VAG APPR UNI/BI 1976 PAST SURGICAL HISTORY OF right EYE SURGERY AGE 7 PAST SURGICAL HISTORY OF Right 11/06/2020 Xen Gel PULMONARY FUNCTION TEST 06/07/03 XCAPSL CTRC RMVL INSJ IO LENS PROSTH W/O ECP 11/21/2014 Cataract Extraction with PC IOL/Femtosecond Laser Left Eye ALLERGIES Codeine, Dye, Erythromycin, Methylprednisolone, and Sulfa (Sulfonamide Antibiotics) MEDICATIONS Methenamine Hippurate (HIPREX) 1 gram tablet^Take 1 tablet by mouth twice daily with meals.^Disp: 60 tablet^Rfl: 11 meloxicam (MOBIC) 15 mg tablet^Take 1 tablet by mouth once daily. With food.^Disp: 30 tablet^Rfl: 1 atorvastatin (LIPITOR) 40 mg tablet^Take 1 tablet by mouth daily at bedtime. For cholesterol.^Disp:90 tablet^Rfl: 1 furosemide (LASIX) 20 mg tablet^Take one tablet every day but if looses more than 10 pounds in a week then she needs to hold it.^Disp: 45 tablet^Rfl: 3 potassium chloride (K-TAB) 10 mEq tablet^Take 1 tablet by mouth twice daily. Take it every day along with lasix. If looses than 10 pounds then change to every other day^Disp: 180 tablet^Rfl: 3 levothyroxine (LEVOXYL) 25 mcg tablet^Take 1 tablet by mouth once daily. Take on empty stomach. ForThyroid^Disp: 60 tablet^Rfl: 1 buPROPion (WELLBUTRIN) 75 mg tablet^Take it once a day in the morning.^Disp: 60 tablet^Rfl: 0 sertraline (ZOLOFT) 25 mg tablet^Take 1 tablet by mouth once daily.^Disp: 90 tablet^Rfl: 3 mirtazapine (REMERON) 15 mg tablet^Take 1 tablet by mouth daily at bedtime.^Disp: 90 tablet^Rfl: 1 sertraline (ZOLOFT) 100 mg tablet^Take 1 tablet by mouth once daily. To take along with 25 mgs to make a total of 125 mgs^Disp: 90 tablet^Rfl: 3 cephALEXin (KEFLEX) 250 mg capsule^Take 1 capsule by mouth once daily.^Disp: 90 capsule^Rfl: 1 travoprost (TRAVATAN Z) 0.004 % ophthalmic drops^Use 1 Drop in both eyes daily at bedtime.^Disp: 2.5 mL^Rfl: 2 brimonidine-timolol (COMBIGAN) 0.2-0.5 % ophthalmic solution^Use 1 Drop in the right eye twice daily. Use at 9 AM and 3 PM^Disp: 10 mL^Rfl: 2 ondansetron orally disintegrating (ZOFRAN ODT) 4 mg disintegrating tablet^Take 1 tablet by mouth every 6 hours as needed for nausea/vomiting.^Disp: 45 tablet^Rfl: 1 phenazopyridine (PYRIDIUM, GERIDIUM) 200 mg tablet^Take 1 tablet by mouth three times daily as needed.^Disp: 30 tablet^Rfl: 1 aspirin, enteric coated (ECOTRIN LOW STRENGTH) 81 mg EC tablet^Take 1 tablet by mouth once daily.^Disp: ^Rfl: wheat dextrin (BENEFIBER SUGAR FREE, DEXTRIN,) 3 gram/4 gram powd^Take 2 teaspoonsful by mouth oncedaily.^Disp: ^Rfl: calcium carb/vitamin D3/vit K1 (VIACTIV ORAL)^Take 1 tablet by mouth once daily.^Disp: ^Rfl: Vaginal Lubricant (REPLENS) gel^Use 6.7 g vaginally every other day.^Disp: 1 Tube^Rfl: 5 L GASSERI/B BIFIDUM/B LONGUM (Optensity COLON HEALTH ORAL)^Take by mouth.^Disp: ^Rfl: CHOLECALCIFEROL, VITAMIN D3, (VITAMIN D3 ORAL)^Take by mouth once daily.^Disp: ^Rfl: LUTEIN ORAL^Take by mouth.^Disp: ^Rfl: MULTIVITAMIN TABLET PO^Take one(1) tablet daily.^Disp: 0^Rfl: 0 FAMILY HISTORY Problem Relation Age of Onset Breast Cancer Sister Glaucoma Sister Heart Father mi Diabetes Father Hypertension Mother Alzheimer's Disease Mother Macular Degen Mother Glaucoma Mother Macular Degen Maternal Grandmother Social History Tobacco Use Smoking status: Never Smokeless tobacco: Never Vaping Use Vaping Use: Never used Substance Use Topics Alcohol use: Yes Comment: 1 drink per month not used in 1 year Drug use: No Review of Systems Constitutional: Positive for fatigue. Negative for activity change, appetite change, chills and fever. HENT: Negative for congestion, hearing loss, mouth sores, trouble swallowing and voice change. Eyes: Negative for photophobia, pain, discharge, redness, itching and visual disturbance. Respiratory: Negative for cough, chest tightness and shortness of breath. Cardiovascular: Negative for leg swelling. Gastrointestinal: Negative for abdominal distention, abdominal pain, constipation, diarrhea, nauseaand vomiting. Endocrine: Negative for cold intolerance and heat intolerance. Genitourinary: Positive for dysuria and frequency. Negative for flank pain, hematuria, hesitancy, pelvic pain, urgency, vaginal discharge and vaginal pain. Musculoskeletal: Negative for back pain, joint swelling, myalgias and neck pain. Pt uses a walker due to MS Skin: Negative for color change, pallor, rash and wound. Allergic/Immunologic: Positive for immunocompromised state. Negative for environmental allergies and food allergies. Uterine CA and MS Neurological: Negative for dizziness, facial asymmetry, light-headedness and headaches. Psychiatric/Behavioral: Negative for agitation, behavioral problems, confusion and decreased concentration. Objective BP 126/84 Pulse 79 Temp 37.3 C (99.1 F) Resp 20 Wt 52.6 kg (116 lb) SpO2 94% BMI 22.65 kg/m Physical Exam Vitals and nursing note reviewed. Exam conducted with a coagulating bath mixer present. Constitutional: General: She is not in acute distress. Appearance: Normal appearance. She is normal weight. She is not ill-appearing, toxic-appearing or diaphoretic. Comments: Elderly appearing HENT: Head: Normocephalic. Right Ear: Tympanic membrane, ear canal and external ear normal. There is no impacted cerumen. Left Ear: Tympanic membrane, ear canal and external ear normal. There is no impacted cerumen. Nose: Nose normal. No congestion or rhinorrhea. Mouth/Throat: Mouth: Mucous membranes are moist. Pharynx: No oropharyngeal exudate or posterior oropharyngeal erythema. Eyes: General: No scleral icterus. Right eye: No discharge. Left eye: No discharge. Extraocular Movements: Extraocular movements intact. Conjunctiva/sclera: Conjunctivae normal. Pupils: Pupils are equal, round, and reactive to light. Cardiovascular: Rate and Rhythm: Normal rate and regular rhythm. Pulses: Normal pulses. Heart sounds: Normal heart sounds. Pulmonary: Effort: Pulmonary effort is normal. Breath sounds: Normal breath sounds. No wheezing. Chest: Chest wall: No tenderness. Abdominal: General: Abdomen is flat. Bowel sounds are normal. There is no distension. Palpations: Abdomen is soft. There is no mass. Tenderness: There is no abdominal tenderness. There is no right CVA tenderness, left CVA tenderness, guarding or rebound. Hernia: No hernia is present. Musculoskeletal: General: No tenderness. Normal range of motion. Cervical back: Normal range of motion. No rigidity or tenderness. Lymphadenopathy: Cervical: No cervical adenopathy. Skin: General: Skin is warm and dry. Capillary Refill: Capillary refill takes less than 2 seconds. Findings: No erythema, lesion or rash. Neurological: General: No focal deficit present. Mental Status: She is alert and oriented to person, place, and time. Motor: No weakness. Psychiatric: Mood and Affect: Mood normal. Behavior: Behavior normal. Thought Content: Thought content normal. Judgment: Judgment normal. Assessment and Plan ASSESSMENT/PLAN: 1. Dysuria - ICD9: 788.1, ICD10: R30.0 recurrent - UA positive for henrietta esterase, hematuria, proteinuria, and nitrates She takes daily Macrobid - Send urine for culture - Patient education for prevention given - UA DIP, URINE (POC) - URINE CULTURE Review of prior urine culture reveals pseudomonas and e. Faecalis as growth Cipro 500 mg BID for 7 days, given her allergies. States that she has utilized in the past and tolerated. I did discuss with patient that I was unsure if the Cipro would help, based on her prior growth. Pt advised to call Urology tomorrow for follow up care. Will CC chart to Abebe Gonsalez. Ashley Torrez TEACHING PROVIDER (Physician/PA/APARTMENT MAINTENANCE MANAGER) NOTE OF PERSONAL INVOLVEMENT IN CARE: I have personally seen and examined the patient and performed the medical decision-making components. I have reviewed the Advanced Practice Registered Nurse (APARTMENT MAINTENANCE MANAGER) Student's documentation and verified the findings in the note as written. Any additions or changes are noted in bold/italics. Signature: Jackie Light Date: 04/08/2022 Time: 6:31 PM documented in this encounterTr[facility] System07-28-2022 History of Present illness Narrative* Joseluis Perez MD - 03/26/2022 5:45 PM EDT TELEVISIT PROGRESS NOTE This is a telephone encounter initiated for an established patient, parent or guardian not originating from a related Evaluation & Management service provided within the previous 7 days nor leading to an Evaluation & Management service or procedure within the next 24 hours or soonest available appointment. 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 MMRnormal. Now with recurrence. HISTORY TO DATE: 1. Initital presentation: Ms. Kennedy is a 75 year old female with MS and depression. Saw Skylar Ackerman CNP for complaints of PMB, 5 day history. On 07/25/2014 had a EMB that showed Well differentiated endometrioid adenocarcinoma, FIGO grade 1. HNPCC screening negative 2. 09/12/2014 Surgery: Single-port total laparoscopic hysterectomy with bilateral salpingo-oophorectomy, bilateral pelvic lymphadenectomy, bilateral periaortic lymphadenectomy and cystoscopy 3.) 10/03/14 Consult to rad onc: RT deferred 4.) 10/26/2016: Lymphatic recurrence in left neck right retrocaval, bilateral pelvis 5.) 12/03/2016: Lymph node FNA: Positive for malignant cells. Adenocarcinoma 6.) 12/10/2016-04/01/2017: Chemo - Carbo/Taxol x 6 cycles 7.) 12/22/2016 CARIS testing- see scanned document for details 8.) 05/2017: Radiation - RT to left supraclavicular region, retroperitoneal/pelvic node region 9.) 02/2018: Right retrorenal LN met not amenable to SRS or removal. Pt declined cytotoxic therapy ER 50%, NV negative 10). 03/31/2018 - 03/16/2019: Letrozole started. Everolimus added 06/23/2018 due to progression. Treatment discontinued 03/16/2019 due to disease progression (confirmed 03/06/2019). Patient elected treatment holiday. 11.)08/2018: PE, IVC filter placement 12.) 01/01/2022: [facility]. Recommended RT (vs systemic chemotherapy) for management of hypermetabolic aortocaval lymphadenopathy (12/15 CT and 12/22 PET). Patient would prefer treatment in [place], [place]. 13). 01/05/2022: Consult with Rad/Onc (Dr. Solorio in [place]). Per family, RT was not recommended due toconcerns with risk of damage to bowels and kidney given the lymph node location. 14). 01/13/2022: Tumor Board Management Options: - Radiation oncology consultation for discussion of SBRT. - Recommend systemic treatment with pembrolizumab/lenvima. 15). 02/24/2022 - 03/03/2022: Radiation Therapy (SBRT) - The Aortocaval LNs PTV received a total doseof 2400 cGy in 3 fractions Date of last follow up: 01/22/2022 PAST MEDICAL HISTORY Diagnosis Date Cataracts, bilateral COAG (chronic open-angle glaucoma) CRVO (central retinal vein occlusion) Disorder of bone and cartilage, unspecified Multiple sclerosis (HCC) 2001 remission currently Pseudophakia, both eyes Pyelonephritis, unspecified 01/2010 Pyelonephritis Uterine cancer (HCC) 08/08/2014 PAST SURGICAL HISTORY Procedure Laterality Date DELIVERY ONLY , low cervical X3 COLONOSCOPY 05/18/2016 Dr. Gibbs. no bx taken COLONOSCOPY, GI 1998, 2009 EYE SURGERY PROCEDURE Left 04/11/2021 Xen Gel stent EYLEA (AFLIBERCEPT) 2MG INTRAVITREAL INJECTION OD (RIGHT EYE) Right 04/02/2016 #7 INSERT ANT SEGMENT DRAIN INT 11/21/2014 iStent Implantation Left Eye LIG/TRNSXJ FLP TUBE ABDL/VAG APPR UNI/BI 1976 PAST SURGICAL HISTORY OF right EYE SURGERY AGE 7 PAST SURGICAL HISTORY OF Right 11/06/2020 Xen Gel PULMONARY FUNCTION TEST 06/07/03 XCAPSL CTRC RMVL INSJ IO LENS PROSTH W/O ECP 11/21/2014 Cataract Extraction with PC IOL/Femtosecond Laser Left Eye Family History Problem Relation Age of Onset Breast Cancer Sister Glaucoma Sister Heart Father mi Diabetes Father Hypertension Mother Alzheimer's Disease Mother Macular Degen Mother Glaucoma Mother Macular Degen Maternal Grandmother PATHOLOGY 09/12/14 Staging Moderately differentiated endometrioid adenocarcinoma, FIGO grade 2. myometiral invasion (2 mm out of 16 mm) TUMOR SIZE: 2.8 cm LYMPH-VASCULAR INVASION: Not identified Nodes negative 11/26/2016 ESTROGEN/PROGESTERONE RECEPTOR (ER/NV) ANALYSIS Estrogen receptors immunostain appears weakly to moderately positive in 30% of cell nuclei. Progesterone receptors immunostain appears moderately positive in 50% of cell nuclei. 2016 BIOPSY- CT-guided percutaneous biopsy of retroperitoneal lymph node Right lower back retroperitoneal lymph node, biopsy Metastatic carcinoma consistent with endometrial primary. Keratin AE1/AE3 and PAX8 are positive, consistent with the above interpretation. Neal Mckinney, Catrachita and Mehnaz concur with the interpretation. Estrogen receptor is positive (50% of tumor cells) and progesterone receptor is negative (0% of tumor cells). 12/03/2016 Lymph node FNA: Positive for malignant cells. Adenocarcinoma (see comment). TUMOR MARKERS: CA 125 (U/mL) Date Value 10/22/2021 31 06/06/2021 33 2020 33 01/09/2020 31 10/03/2019 27 06/21/2019 29 03/06/2019 41 02/02/2019 42 12/07/2018 48 11/07/2018 37 10/10/2018 38 07/05/2017 24 04/08/2017 24 03/18/2017 29 02/08/2017 31 02/04/2017 29 01/14/2017 34 08/09/2014 25 No results found for: CA199 RECENT IMAGIN04/16/2020 CT Chest IMPRESSION: Stable lung nodules and nodular density in the right apex. No new nodules identified. No CT evidence of lymphadenopathy in the chest 04/16/2020 CT Abd/Pel IMPRESSION: Basically unchanged aortocaval lymphadenopathy. Large amount of stool and gas in the large bowel loops 11/19/2020 CT Chest/Abd/Pel IMPRESSION: Stable right apical nodular density and a few tiny left lung nodules. No new nodules identified. No CT evidence of lymphadenopathy in the chest. IMPRESSION: Stable enlarged aortocaval lymph node, previously biopsied and compatible with metastatic endometrial cancer. No new site of metastatic disease in the abdomen and pelvis. 06/06/2021 CT CHEST IMPRESSION: Possible new area of nodularity in the right upper lobe which measures 3 mm in transverse. Close attention on interval follow-up may be helpful. Otherwise, stable appearing pulmonary nodularity. Additional findings noted above. 06/06/2021 CT ABD/PEL IMPRESSION: 1. Enlarged aortocaval lymph node appears unchanged in size compared to the prior study. 2. No new metastatic lesions in the abdomen or pelvis 11/12/2021 CT Abd/Pel IMPRESSION: 1. Enlarged aortocaval node measuring approximately 3.4 x 3.4 cm, previously 3.2 x 2.6 cm. 2. T10 vertebral body compression fracture with approximately 90% height loss is new from prior. 3. Findings suggestive of constipation. 4. Minimal right-sided pelviectasis and urothelial enhancement involving the right renal pelvis. Consider correlation with urinalysis. 12/15/2021 CT Chest IMPRESSION: 1. Subcentimeter irregular density in the right upper lobe, unchanged in size and configuration. 2. Persistent elevation/eventration of the right hemidiaphragm, with associated lower lung atelectasis. 3. Tiny nodular densities along the anterior aspect of the trachea unchanged. 4. No CT evidence of lymphadenopathy in the chest. 5. T10 vertebral body compression deformity/age indeterminate fracture. 12/15/2021 CT Abd/Pel IMPRESSION: 1. Stable to minimal interval increase in size of pathologic aortocaval lymph node. 2. No new or enlarging lymphadenopathy or mass identified. 3. Stable severe T10 vertebral body compression fracture. 12/22/2021 PET/CT IMPRESSION: 1. NECK: No FDG avid neoplastic process. No hypermetabolic mass, adenopathy, or fluid collection. 2. CHEST: No FDG avid neoplastic process. No hypermetabolic mass, adenopathy, or fluid collection. 3. ABDOMEN/PELVIS: Hypermetabolic aortocaval lymphadenopathy. No hypermetabolic mass or fluid collection. 4. EXTREMITIES/SKELETON: No suspicious FDG avid osseous process. HEALTH MAINTENANCE: Last mammogram: 10/30/2021 - negative Last colonoscopy: 02/24/2019 Last Pap: 02/10/2018 - Negative Last HPV: 04/09/2016 - Negative ECOG Performance Status: 0- Fully active, able to carry on all pre-disease performance w/o restriction. SUBJECTIVE: Rosita Kennedy reports that she feels well overall since completing SBRT. No vaginal bleeding or discharge. No shortness of breath, cough, or chest pain. No abdominal pain, nausea, vomiting, or constipation. Her ECOG performance status is zero (fully active, able to carry on all pre-disease performance without restriction). Rivera (son) reports Rosita appeared to tolerate her radiation therapy, noting some fatigue and occasional diarrhea during treatments. Also reports she underwent a cystoscopy on 03/23/22 for recurrent UTIs. OBJECTIVE: Deferred due to distance health ASSESSMENT: 1. 76 yo stage IA FIGO 2 endometrial cancer, negative LVSI and negative nodes. MMR nl (verified) Complete staging 08/2013 RT deferred ([facility]) Lymphatic recurrence L neck, R retrocaval, bilateral pelvis 2016 CT x 6 12/10/2016 - 04/01/2017 RT c 06/07/[address] met 02/2018 Not amenable to SRS or extirpation Pt declines cytotoxic therapy ER 50%, NV negative Letrozole start 03/31/2018 Everolimus add 06/23/201810/01 progression Disease progression 03/06/2019 Treatment holiday 03/16/2019 PE IVC filter 08/2018 Hx fall, contradictory imaging re hematoma S/p consult w Dr. Fiore Anticipate consideration of anticoagulation after appropriate interval from fall. 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 Youngblood (c. 03/03/2022) *PMHx: Multiple sclerosis PLAN: - Rosita presents for follow up visit after completing SBRT to aortocaval lymph nodes (completed 03/03/22). I spoke with both her and her son separately and informed them both that it takes some time to see the effects of radiation on imaging and usually, I prefer scans to be completed 2-3 months after treatment to assess for positive treatment response. I will speak with Dr. Youngbolod and plan to obtain post treatment PET/CT in April 2022. Will follow up afterwards to discuss results and plan of care. Medical Decision Making: Problems: Moderate: 1+ chronic illnesses with change Data: Unique test(s) ordered: 1 Risk: Moderate: Moderate risk from testing/treatment Medical Decision Making Level: 4 - Moderate Aimee Murguia, attest that I personally scribed for Dr. Joseluis Perez MD and that the documentation was captured in collaboration with Dr. Joseluis Perez MD. Provider Attestation: Joseluis Murguia MD, personally performed the services described in this documentation. All medical record entries made by the scribe were at my direction and in my presence. I have reviewed the chart and discharge instructions (if applicable) and agree that the record reflects my personal performance and is accurate and complete. Joseluis Perez MD documented in this encounterTrinity Health System07-26-2022 Miscellaneous Notes* Telephone Encounter - Ramón Ball LPN - 03/24/2022 1:39 PM EDT Winter Kennedy called with patient. Verified name and date of . Had virtual visit scheduled at 1300 and made aware that Abebe Gonsalez PA-C is available in evenings for virtual and offered to check schedule when he is available. Did inform them he sent a MyChart to patient and they declined message due to advise in message from Abebe Gonsalez PA-C. Ramón Ball LPN documented in this encounterTrinity Health System07-25-2022 Instructions* Patient Instructions* Frank Gross MD - 03/23/2022 11:02 AM EDT Start the methenamine that was sent to your pharmacy PATIENT INFORMATION: Prevention of recurrent UTI #1. Cranberry some studies show a modest benefit. There are different products available and dosingsometimes can be around 500 mg , 2 times each day #2. H-tjqdypy-fnymnlkts brands may be available and dosing usually around 1000 mg each day #3. Vitamin C (ascorbic acid) #4. Probiotics a product that includes intravaginal lactobacillus #5. Aggressive hydration #6. Dietary manipulation based on anecdotal experience and textbook's by natural practitioners of the wonderful worldwide web, patients might consider adding moderate quantities of honey, turmeric, Tierra, garlic, although please extract, oil of oregano, goldenseal, Apple cider vinegar, Gooseberry's, blueberries and pineapple to their diets. We can always arrange Appointment with urogynecology/Dr. Marycruz Dominguez if you would like at some point documented in this encounterTrinity Health System07-25-2022 Procedure note* Frank Gross MD - 03/23/2022 10:32 AM EDT Procedure(s): CYSTOSCOPY Pre-Procedure Diagnose(s): Recurrent UTI Post-Procedure Diagnose(s): Recurrent UTI CYSTOSCOPY PROCEDURE NOTE: [id number] Rosita Kennedy is a 76 year old female who presents for a cystoscopy. Pt ID verified with patient: yes Procedure verified with patient: yes Procedure confirmed with physician and gwot ia/ilo intelligence support: yes Special equipment cystoscope UNIVERSAL PROTOCOL / SAFETY CHECKLIST Procedure to be Performed: cysto Sign In: A Moment of CARE was completed. Personnel directly involved with the procedure wore the appropriate PPE (Personal Protective Equipment). Patient/Surrogate Stated/Verified: PATIENT VERIFIED(optional for EMERGENT procedures): Patient name, Date of , Relevant allergies and The intended procedure Time Out Communication: Intended patient and procedure match the source documents. Consent documented and matches the intended procedure. Relevant labs, photos, and/or imaging studies have been reviewed. No correct side/site applicable for marking and visibility. Medications required for procedure verified. Fire risk assessed and interventions discussed. Sign Out: SIGN OUT (optional for EMERGENT procedures): All specimen containers correctly labeled. All instruments, equipment, possible retained foreign bodies accounted for. Post-procedure follow-up management communicated and Plan of Care Visit completed when applicable. Frank Gross MD A urinalysis was performed - - revealing no evidence of infection. The benefits, risks, alternatives of the cystoscopy procedure and personnel were discussed with thepatient. The verbal consent was obtained and the patient agrees to proceed. Procedure: The patient was placed on the procedure table in the supine/lithotomy position and prepped in the usual sterile fashion. Antibiotic was- keflex The cystoscope was carefully placed into the urethra. ---URETHRA: with no evidence of stricture into the bladder. ---BLADDER: The posterior, superior and lateral ashley and dome of the bladder were all well visualized and the scope was retroflexed upon itself. The findings were consistent with Mild trabeculation and some residual urine. At the conclusion of the procedure, the cystoscope was removed atraumatically. The patient tolerated the procedure without complications. Patient was given standard post-procedure instructions, and was directed to complete the course of oral antibiotics and increase oral fluid intake as directed. Frank Gross MD See progress note for plans Frank Gross MD documented in this encounterTrinity Health System07-25-2022 History of Present illness Narrative* Frank Gross MD - 03/23/2022 10:21 AM EDT ESTABLISHED PATIENT OFFICE VISIT PATIENT INFO: Rosita Kennedy 76 year old HPI 03/23/2022 CC: williamo Presents with her daughter today for the cystoscopy and she is on the Macrobid daily and history ofrecurrent infection as noted below Cystoscopy shows no bladder lesion and upper tract studies urologically appeared normal She completed her radiation course for uterine cancer No significant nocturia or incontinence complaints Discussed recurrent UTI issues and printed out information/holistic to help decrease UTI She wants to start methenamine Option of seeing urogynecology/Dr. Marycruz Dominguez for evaluation but they will hold off on that See me as needed moving ahead They have appointment with Abebe Gonsalez tomorrow they say Past Urology Hx: February 20, 2022 seen by Abebe Gonsalez 76 year old female who is on daily Macrobid 100 mg which has seemed to help keep UTI down, now withPseudomonas UTI's Need to check post treatment culture and do Cystoscopy May need ID for COPAT IV antibiotics She has MS as well Recurrence of Uterine CA with Lymph nodes will get radiation started next week IMPRESSION / PLAN: > History of Recurrent UTI > No with Pseudomonas UTI > Macrobid low dose daily - off while on Levaquin > Urine Culture post treatment in February 2022 > Hx of Uterine Ca s/p Chemotherapy > Start Radiation next week > History of MS > 2 week post treatment Urine Culture - orders given > 2 month follow-up after Radiation concluded To make plan for Flexible Cystoscopy Abebe Gonsalez, JESSY, MT, PA-C RADS: March 23, 2022 cystoscopy negative except for some residual urine with a little bit of trabeculation March 10, 2022 urine culture 50 [id number] Enterococcus susceptible to ampicillin and vancomycin February 12, 2022 less than 50,000 Pseudomonas January 22, 2022 urine culture Pseudomonas susceptible to Cipro December 15, 2021 CT with IV subcentimeter lesions too small to characterize and kidneys likely benign, Right extrarenal pelvis November 07, 2020 urine culture Pseudomonas Creatinine Date Value Ref Range Status 02/12/2022 0.64 0.58 - 0.96 mg/dL Final No results found for: PSA Color (no units) Date Value 02/12/2022 Yellow 09/09/2021 Yellow Clarity (no units) Date Value 02/12/2022 Slightly Cloudy 09/09/2021 Clear Glucose, Urine Date Value 02/12/2022 Negative 09/09/2021 Negative mg/dL Bilirubin, Urine (no units) Date Value 02/12/2022 Negative 09/09/2021 Negative Ketones, Urine (no units) Date Value 02/12/2022 Negative 09/09/2021 Negative Specific [place], Ur (no units) Date Value 02/12/2022 1.020 09/09/2021 1.014 Hemoglobin/Blood,Ur Date Value 02/12/2022 Negative 09/09/2021 Negative pH, Urine (no units) Date Value 02/12/2022 7.0 09/09/2021 6.0 Protein, Urine (no units) Date Value 02/12/2022 1+ 09/09/2021 Negative Urobilinogen Date Value 02/12/2022 Negative 09/09/2021 Negative E.U./dL Nitrites (no units) Date Value 02/12/2022 Positive 09/09/2021 Negative Leukest (no units) Date Value 09/09/2021 Negative Leuk Esterase (no units) Date Value 02/12/2022 1+ Review of Systems Constitutional: Negative. HENT: Negative. Eyes: Negative. Respiratory: Negative. Cardiovascular: Negative. Gastrointestinal: Negative. Endocrine: Negative. Genitourinary: See HPI Musculoskeletal: Negative. Skin: Negative. Allergic/Immunologic: Negative. Neurological: Negative. Hematological: Negative. Psychiatric/Behavioral: Negative. I reviewed and confirmed ROS obtained by MA HISTORIES PAST MEDICAL HISTORY Diagnosis Date Cataracts, bilateral COAG (chronic open-angle glaucoma) CRVO (central retinal vein occlusion) Disorder of bone and cartilage, unspecified Multiple sclerosis (HCC) 2001 remission currently Pseudophakia, both eyes Pyelonephritis, unspecified 01/2010 Pyelonephritis Uterine cancer (HCC) 08/08/2014 FAMILY HISTORY Problem Relation Age of Onset Breast Cancer Sister Glaucoma Sister Heart Father mi Diabetes Father Hypertension Mother Alzheimer's Disease Mother Macular Degen Mother Glaucoma Mother Macular Degen Maternal Grandmother SOCIAL HISTORY Social History Tobacco Use Smoking status: Never Smoker Smokeless tobacco: Never Used Vaping Use Vaping Use: Never used Substance Use Topics Alcohol use: Yes Comment: 1 drink per month not used in 1 year Drug use: No MEDICATIONS: meloxicam (MOBIC) 15 mg tablet, Take 1 tablet by mouth once daily. With food. atorvastatin (LIPITOR) 40 mg tablet, Take 1 tablet by mouth daily at bedtime. For cholesterol. furosemide (LASIX) 20 mg tablet, Take one tablet every day but if looses more than 10 pounds in a week then she needs to hold it. potassium chloride (K-TAB) 10 mEq tablet, Take 1 tablet by mouth twice daily. Take it every day along with lasix. If looses than 10 pounds then change to every other day levothyroxine (LEVOXYL) 25 mcg tablet, Take 1 tablet by mouth once daily. Take on empty stomach. For Thyroid buPROPion (WELLBUTRIN) 75 mg tablet, Take it once a day in the morning. mirtazapine (REMERON) 15 mg tablet, Take 1 tablet by mouth daily at bedtime. sertraline (ZOLOFT) 100 mg tablet, Take 1 tablet by mouth once daily. To take along with 25 mgs to make a total of 125 mgs travoprost (TRAVATAN Z) 0.004 % ophthalmic drops, Use 1 Drop in both eyes daily at bedtime. brimonidine-timolol (COMBIGAN) 0.2-0.5 % ophthalmic solution, Use 1 Drop in the right eye twice daily. Use at 9 AM and 3 PM ondansetron orally disintegrating (ZOFRAN ODT) 4 mg disintegrating tablet, Take 1 tablet by mouth every 6 hours as needed for nausea/vomiting. phenazopyridine (PYRIDIUM, GERIDIUM) 200 mg tablet, Take 1 tablet by mouth three times daily as needed. aspirin, enteric coated (ECOTRIN LOW STRENGTH) 81 mg EC tablet, Take 1 tablet by mouth once daily. calcium carb/vitamin D3/vit K1 (VIACTIV ORAL), Take 1 tablet by mouth once daily. L GASSERI/B BIFIDUM/B LONGUM ([employer] HEALTH ORAL), Take by mouth. CHOLECALCIFEROL, VITAMIN D3, (VITAMIN D3 ORAL), Take by mouth once daily. LUTEIN ORAL, Take by mouth. MULTIVITAMIN TABLET PO, Take one(1) tablet daily. Methenamine Hippurate (HIPREX) 1 gram tablet, Take 1 tablet by mouth twice daily with meals. sertraline (ZOLOFT) 25 mg tablet, Take 1 tablet by mouth once daily. cephALEXin (KEFLEX) 250 mg capsule, Take 1 capsule by mouth once daily. wheat dextrin (BENEFIBER SUGAR FREE, DEXTRIN,) 3 gram/4 gram powd, Take 2 teaspoonsful by mouth once daily. Vaginal Lubricant (REPLENS) gel, Use 6.7 g vaginally every other day. Physical Exam Constitutional: General: She is not in acute distress. Appearance: She is not diaphoretic. HENT: Head: Normocephalic and atraumatic. Nose: Nose normal. Eyes: General: Left eye: No discharge. Neck: Trachea: No tracheal deviation. Pulmonary: Effort: Pulmonary effort is normal. No respiratory distress. Musculoskeletal: General: No deformity. Comments: walker Skin: General: Skin is warm. Neurological: Mental Status: She is alert. Gait: Gait is intact. Psychiatric: Mood and Affect: Mood and affect normal. Risk/Benefit Discussion: FOLLOW UP (1s&1w; 3s): Return if symptoms worsen or fail to improve. ASSESSMENT/PLAN: 1. Acute cystitis without hematuria - ICD9: 595.0, ICD10: N30.00 (primary diagnosis) - CEPHALEXIN 500 MG CAPSULE - METHENAMINE HIPPURATE 1 GRAM TABLET - CYSTO.PANENDO 2. Chronic UTI - ICD9: 599.0, ICD10: N39.0 Frank Gross Please note: This note has been produced using speech recognition software and may contain errors related to that system including grammar, punctuation, spelling, gender and words and phrases that may be inappropriate. documented in this encounterTrinity Health System07-22-2022 Miscellaneous Notes* Telephone Encounter - Henry Rodgers RN - 03/20/2022 3:37 PM EDT RADIATION POST TREATMENT CALL BACK Today's date: March 20, 2022 Patient's final treatment on 03/03/2022. Treatment site Aortocaval LNs Called patient to follow-up on symptom management and follow-up appointments. Spoke with Rosita. Focused Toxicity Assessment: Abdomen aortocaval nodes Pain: None. 0 on a scale of 0 to 10. Fatigue: increased fatigue over baseline but not altering normal activities Appetite: decreased appetite Nutritional Intake: Regular oral intake: yes Nausea: no Vomiting: no Bowel Function: diarrhea 1 - abdominal cramping; two or less soft or liquid bowel Bladder Function: WNL Erythema/Hyperpigmentation: none Desquamation: none Rash: none Skin Care: None Skin Sensation: Within Normal Limits Fever/chills: No Weight Loss: No Ascites: No Psychosocial Risk Factors: None Does the patient need interventions, referrals or same day appointment:No Reinforced CURRENT treatment education based on current and anticipated symptoms. Patient instructed to contact Dr. Youngblood's office with questions or concerns or Radiation Oncology Fellow Window Shade Cutter after 5pm and on weekends for urgent issues. Patient verbalized understanding of when to seek medical attention and after hours number protocol. Follow up appointment: Not yet scheduled Henry DANIELS, RN documented in this encounterTrinity Health System07-18-2022 Miscellaneous Notes* Telephone Encounter - Ramón Ball LPN - 03/16/2022 8:23 AM EDT Called patient. Verified name and date of . Patient aware she has option to have labs done in [place] but she does state she prefers to go a head and come to clinic. Ramón Ball LPN * Telephone Encounter - Abebe Gonsalez PA-C - 03/13/2022 6:44 PM EDT Have to Print orders in Epic and fax to the lab, and then they have to fax results back it often get delayed ROBERTI JESSY Da Silva, [place], ANASTASIYA * Telephone Encounter - Ramón Ball LPN - 03/13/2022 12:01 PM EDT Called Patient. Verified name and date of . Patient informed of orders and verbalizes understanding. Patient does ask if she can have urine checked at facility in [place] rather than [place]? Ifit is a issue she is okay to have done in [facility]. Ramón Ball LPN * Telephone Encounter - Abebe Gonsalez PA-C - 03/13/2022 11:21 AM EDT This is hopefully good news that the Pseudomanias is gone for now, and the Enterococcus is easier to manage so for now I would like to do Ampicillin 500 mg And repeat culture in 2 weeks after finish Ampicillin. Better to do tests when no UTI JESSY Da Silva, [place], ANASTASIYA * Telephone Encounter - Ramón Ball LPN - 03/13/2022 11:03 AM EDT Patients son called. Verified name and date of . Rivera verbalizes that culture shows UTI, with different organism this time, and is asking if his mom can move forward with tests that you recommended vs waiting? States his mom has finished radiationand with repetitive UTI's she is forgetful and more unsteady on her feet and with her health issuesits hard to say which is cause. Please review and advise treatment and recommendations. 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 She reports having some nausea yesterday and fatigue. She reports constipation that she has been dealing with for years. Discussed potential acute side effects of radiation and when to go to the ED. Henry DANIELS, RN .Last 5 Encounter Wt Readings: Date: Wt: 02/26/2022 52.8 kg (116 lb 6.4 oz) 02/20/2022 53.1 kg (117 lb) 02/12/2022 53.8 kg (118 lb 8 oz) 01/05/2022 54.4 kg (120 lb) 11/20/2021 53.5 kg (118 lb) EXAM: KPS: 90 General Appearance: Alert and oriented. No acute distress. Radiation Dermatitis: No IMAGING/LAB RESULTS: None ASSESSMENT/PLAN: Clinically stable. Toxicity within expected parameters. Continue radiation treatment as planned. I have personally participated in the yang components of the case and agree with the above findings: Treatment chart checked: YES Patient treatment site reviewed and verified: YES Setup images reviewed and current: YES Signed by: Naila Youngblood MD documented in this encounterTrinity Health System06-24-2022 History of Present illness Narrative* Abebe Gonsalez PA-C - 02/20/2022 11:22 AM EDT Images from the original note were not included. [facility] PATIENT INFO: Rosita Kennedy CHIEF COMPLAINT: Recurrent UTI HPI This is a 76 year old female who is on daily Macrobid 100 mg which has seemed to help keep UTI down, now with Pseudomonas UTI's Need to check post treatment culture and do Cystoscopy May need ID for COPAT IV antibiotics She has MS as well Recurrence of Uterine CA with Lymph nodes will get radiation started next week Previous Studies Creatinine Date Value Ref Range Status 02/12/2022 0.64 0.58 - 0.96 mg/dL Final MEDICATIONS: levoFLOXacin (LEVAQUIN) 250 mg tablet Take 1 tablet by mouth once daily for 7 days. meloxicam (MOBIC) 15 mg tablet Take 1 tablet by mouth once daily. With food. atorvastatin (LIPITOR) 40 mg tablet Take 1 tablet by mouth daily at bedtime. For cholesterol. furosemide (LASIX) 20 mg tablet Take one tablet every day but if looses more than 10 pounds in a week then she needs to hold it. potassium chloride (K-TAB) 10 mEq tablet Take 1 tablet by mouth twice daily. Take it every day along with lasix. If looses than 10 pounds then change to every other day levothyroxine (LEVOXYL) 25 mcg tablet Take 1 tablet by mouth once daily. Take on empty stomach. ForThyroid buPROPion (WELLBUTRIN) 75 mg tablet Take it once a day in the morning. mirtazapine (REMERON) 15 mg tablet Take 1 tablet by mouth daily at bedtime. sertraline (ZOLOFT) 100 mg tablet Take 1 tablet by mouth once daily. To take along with 25 mgs to make a total of 125 mgs travoprost (TRAVATAN Z) 0.004 % ophthalmic drops Use 1 Drop in both eyes daily at bedtime. brimonidine-timolol (COMBIGAN) 0.2-0.5 % ophthalmic solution Use 1 Drop in the right eye twice daily. Use at 9 AM and 3 PM ondansetron orally disintegrating (ZOFRAN ODT) 4 mg disintegrating tablet Take 1 tablet by mouth every 6 hours as needed for nausea/vomiting. phenazopyridine (PYRIDIUM, GERIDIUM) 200 mg tablet Take 1 tablet by mouth three times daily as needed. aspirin, enteric coated (ECOTRIN LOW STRENGTH) 81 mg EC tablet Take 1 tablet by mouth once daily. calcium carb/vitamin D3/vit K1 (VIACTIV ORAL) Take 1 tablet by mouth once daily. L GASSERI/B BIFIDUM/B LONGUM ([employer] HEALTH ORAL) Take by mouth. CHOLECALCIFEROL, VITAMIN D3, (VITAMIN D3 ORAL) Take by mouth once daily. LUTEIN ORAL Take by mouth. MULTIVITAMIN TABLET PO Take one(1) tablet daily. sertraline (ZOLOFT) 25 mg tablet Take 1 tablet by mouth once daily. cephALEXin (KEFLEX) 250 mg capsule Take 1 capsule by mouth once daily. wheat dextrin (BENEFIBER SUGAR FREE, DEXTRIN,) 3 gram/4 gram powd Take 2 teaspoonsful by mouth oncedaily. Vaginal Lubricant (REPLENS) gel Use 6.7 g vaginally every other day. REVIEW OF SYSTEMS: GENERAL: No fever, chills, weight loss, or fatigue. PHYSICAL EXAM: Blood pressure 140/84, pulse 108, temperature 37.1 C (98.7 F), temperature source Temporal, resp. rate 16, height 152.4 cm (5'), weight 53.1 kg (117 lb), SpO2 97 %. GENERAL:WNL nutrition, no deformities, healthy appearing Exam: Deferred to POLITICAL RESEARCH SCIENTIST follow up IMPRESSION / PLAN: > History of Recurrent UTI > No with Pseudomonas UTI > Macrobid low dose daily - off while on Levaquin > Urine Culture post treatment in February 2022 > Hx of Uterine Ca s/p Chemotherapy > Start Radiation next week > History of MS > 2 week post treatment Urine Culture - orders given > 2 month follow-up after Radiation concluded To make plan for Flexible Cystoscopy JESSY Da Silva, MT, PAEsmerC * Ramón Ball LPN - 02/20/2022 11:20 AM EDT Patient unable to void. documented in this encounterTrinity Health System06-21-2022 Miscellaneous Notes* Telephone Encounter - Franchesca Matson RN - 02/17/2022 3:26 PM EDT Pt called and is notified of providers results and instructions. Pt voices understanding. She askedif provider put her on anything for the UTI, no new medications were seen. She said she has an appointment with Sunshine [facility] on Wednesday and she will get something from him then. Franchesca Matson, RN * Telephone Encounter - Krishan Brice MD - 02/17/2022 3:03 PM EDT Chronic urinary tract infection susceptible to chronic antibiotic. Vitamin D elevated. Reduce vitamin D supplementation by 1/3. CBC, CMP, Lipids, Thyroid are okay. * Telephone Encounter - Mahsa Ramirez RN - 02/16/2022 11:25 AM EDT Patient calls and is asking about lab results. Please review and advise, Mahsa Ramirez RN documented in this encounterTrinity Health System06-16-2022 Nurse Note* Jackie Fry RN - 02/12/2022 1:44 PM EDT Radiation Oncology Nursing Note PATIENT NAME: Rosita Kennedy PATIENT [facility] FACILITY/LOCATION: [facility] PROCEDURE: Contrast Injection for CT Simulation Safety Checks Patient identified using 2 identifiers: Yes NPO x 4 hours verified: Yes Creatinine level drawn within the last 60 days: Yes Creatinine level within normal limits: Yes IV start: Time: Previously inserted in lab. 19 x 0.75G holley needle placed in the Right CW. Positive blood return verified: Yes Physician order for contrast injection verified: Yes Patient's allergies verified, including CT contrast: Yes Time contrast administered: 1410 Is the patient having any pain? None. 0 on a scale of 0 to 10. Concerns about physical or emotional abuse: No Fall risk: No Complications/Reaction Contrast reaction: No Mental status: Alert and oriented. Patient Disposition Patient IV access: 20cc NS and 500u heparin flushed. Mediport de accessed. Band aid applied. Discontinued without complications.. Time IV removed: 1445 Patient/family provided with home going instructions: Yes Patient/family verbally acknowledged understanding of home going instructions: Yes Disposition: To home. SIGNED by Jackie Fry RN * Jackie Fry RN - 02/12/2022 1:43 PM EDT Radiation Therapy - Patient Education Note PATIENT NAME: Rosita Kennedy PATIENT February 12, 2022 [facility] FACILITY/LOCATION: [facility] READINESS TO LEARN Cognitive Ability: Alert and oriented Motivation to learn: Eager Family Support: High - Very involved in pt care Instruction provide to: Patient and family member Patient learns best by: Individual Instruction Written Instruction - Hand-outs Verbal Instruction Factors effecting learning: None Physical limitations effecting learning: None LEARNING RESPONSE Diagnosis: Pt simulated today for radiation therapy to pelvis. Education Topic/Teaching Points: Radiation therapy, Side effects and OTV: Method of instruction: Individual instruction Written instruction - handouts Verbal instruction Patient /Family response: Patient and family verbalized understanding of radiation treatments, sideeffects, OTV, and transportation. Follow-up plan: Patient instructed to call with any further issues Supplemental material: Informational handouts on Pelvic handout. Referral (recommendation): None, Pt denied need for social work, van service, and electronics lead. Was approved? 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 CONTRAST: 100 cc Omnipaque PROTOCOL: None BLOCKS: Custom blocks are necessary to develop an optimal plan. (replace sentence if no blocking will be done) FIXATION DEVICE: In order to achieve accurate and reproducible treatments, the patient is immobilized with body fix & abc. PROCEDURE: A time-out was conducted and recorded by the therapist. Patient was simulated on the CT scanner for external beam radiation therapy. Treatment site was marked by the simulation therapist. ASSESSMENT/PLAN: Patient tolerated simulation procedure well. Treatments will be initiated after treatment planning. The patient will be scheduled for a verification simulation on the treatment machine to ensure proper set-up and field arrangement is correct prior to the first treatment of primary and any boost lin if applicable. Electronically Signed Nalia Youngblood M.D. 21:40 AM documented in this encounterTrinity Health System06-16-2022 History of Present illness Narrative* Naila Youngblood MD - 02/12/2022 12:00 AM EDT ROSITA KENNEDY Mela [id number] 02/12/2022 [facility] Department of Radiation Oncology Treatment Planning Note For reasons stated in the consult note, Rosita Kennedy is a candidate for radiation therapy. Based on review and interpretation of the relevant diagnostic studies together with the exam findings, Rosita Kennedy was simulated on 02/12/2022 at which time the target volume and/or requisite lin were del ineated, as indicated in the simulation note, to be treated according to the prescription. CT images were taken during controlled breathing using a breath hold device. Multiple CT image setswere acquired and reviewed to assess respiratory reproducibility, which was incorporated in the internal target volume (ITV). Motion management allowed for design of patient specific planning target volume and reduced the radiation exposure to normal tissues. The treatment target and organs at risk were contoured on the simulation scan using the fused PET. Special consideration to these and other structures was given in light of the potential for increased toxicities of stereotactic body radiation therapy (SBRT). After reviewing multiple treatment plans with dosimetry, the best plan was approved to deliver the prescribed course of radiation to the target area using inverse planning to allow for the best isodose distribution, treating to the 71% isodose line with 10FFF and 2 lin. Custom MLC for IMRT was the treatment device used to shape/modify the beams. Limiting dose to normal tissue was confirmed upon review of the calculated dose volume histogram. IMRT planning was used because it best met the dose/volume constraints for the organs at risk for this patient, better than what could be achieved using conventional or 3D planning. The specific doserequirements for the PTV, organs at risk and dose-volume histograms are contained in this treatmentplan and/or elsewhere in the medical record. A completed summary of this plan dated 02/20/22 incorporated herein by reference includes dose, beamarrangements, energy, blocking, isodose distribution, and/or ports and DVH. Electronically Signed Naila Youngblood M.D. 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 Final recommendations will be communicated back to the requesting physician by way of the shared medical record, or letter to requesting physician via US mail. Ms. Kennedy is a 76 year old female with PMH MS, depression, and PE s/p ICV filter who presents for evaluation of oligorecurrent aortocaval LAD noted on 12/15/21 imaging. 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 She had no adjuvant treatment afterwards. She then recurred in 09/2016 and received carbotaxol x6c and RT. Unfortunately in the past 2 months, she noticed low back pain. Restaging scans with CT C/A/P on 12/15/21 and PET/CT on 12/22 showed hypermetabolic aortocaval lymphadenopathy. Her case was discussed at tumor board and recommendation was for SBRT and systemic treatment with p embrolizumab/lenvima. Currently, she endorses low back pain. She ambulates with a cane and walker, and is unable to climbstairs. She completes all ADLs. She denies urinary issues, bowel symptoms, vaginal bleeding or discharge, weakness, numbness, or abdominal/pelvic pain. She has no fever, chills, cp, sob, or cough. She lives alone in [facility]. She denies smoking or illicit drug use. Rare alcohol use. ALLERGIES Allergen Reactions Codeine hives Dye GI Upset Diarrhea after CT oral contrast 01/2018 Erythromycin GI Upset Methylprednisolone Hives IV Sulfa (Sulfonamide * hives PAST MEDICAL HISTORY Diagnosis Date Cataracts, bilateral COAG (chronic open-angle glaucoma) CRVO (central retinal vein occlusion) Disorder of bone and cartilage, unspecified Multiple sclerosis (HCC) 2001 remission currently Pseudophakia, both eyes Pyelonephritis, unspecified 01/2010 Pyelonephritis Uterine cancer (HCC) 08/08/2014 Prior radiation therapy, collagen vascular disease, or inflammatory bowel disease: Yes, in 2017 status: Surgically post-menopausal. PAST SURGICAL HISTORY Procedure Laterality Date DELIVERY ONLY , low cervical X3 COLONOSCOPY 05/18/2016 Dr. Gibbs. no bx taken COLONOSCOPY, GI 1998, 2009 EYE SURGERY PROCEDURE Left 04/11/2021 Xen Gel stent EYLEA (AFLIBERCEPT) 2MG INTRAVITREAL INJECTION OD (RIGHT EYE) Right 04/02/2016 #7 INSERT ANT SEGMENT DRAIN INT 11/21/2014 iStent Implantation Left Eye LIG/TRNSXJ FLP TUBE ABDL/VAG APPR UNI/BI 1976 PAST SURGICAL HISTORY OF right EYE SURGERY AGE 7 PAST SURGICAL HISTORY OF Right 11/06/2020 Xen Gel PULMONARY FUNCTION TEST 06/07/03 XCAPSL CTRC RMVL INSJ IO LENS PROSTH W/O ECP 11/21/2014 Cataract Extraction with PC IOL/Femtosecond Laser Left Eye FAMILY HISTORY Problem Relation Age of Onset Breast Cancer Sister Glaucoma Sister Heart Father mi Diabetes Father Hypertension Mother Alzheimer's Disease Mother Macular Degen Mother Glaucoma Mother Macular Degen Maternal Grandmother Social History Tobacco Use Smoking status: Never Smoker Smokeless tobacco: Never Used Vaping Use Vaping Use: Never used Substance Use Topics Alcohol use: Yes Comment: 1 drink per month not used in 1 year Drug use: No COMPLETE REVIEW OF SYSTEMS: As per HPI. PHYSICAL EXAM: Exam limited by virtual visit. General: Alert and oriented. No acute distress. RADIOLOGY/LABORATORY DATA: 12/22/21 PET/CT IMPRESSION: 1. NECK: No FDG avid neoplastic process. No hypermetabolic mass, adenopathy, or fluid collection. 2. CHEST: No FDG avid neoplastic process. No hypermetabolic mass, adenopathy, or fluid collection. 3. ABDOMEN/PELVIS: Hypermetabolic aortocaval lymphadenopathy. No hypermetabolic mass or fluid collection. 4. EXTREMITIES/SKELETON: No suspicious FDG avid osseous process. 12/15/21 CT Chest IMPRESSION: Subcentimeter irregular density in the right upper lobe, unchanged in size and configuration. Persistent elevation/eventration of the right hemidiaphragm, with associated lower lung atelectasis. Tiny nodular densities along the anterior aspect of the trachea unchanged. No CT evidence of lymphadenopathy in the chest. T10 vertebral body compression deformity/age indeterminate fracture. 12/15/21 CT A/P IMPRESSION: 1. Stable to minimal interval increase in size of pathologic aortocaval lymph node. 2. No new or enlarging lymphadenopathy or mass identified. 3. Stable severe T10 vertebral body compression fracture. ASSESSMENT AND PLAN: This is a 76 year old female with PMH MS, depression, PE s/p ICV filter, StageIA FIGO grade 2 endometrioid adenocarcinoma s/p TLH, BSO, and BPLND on 09/12/2014, s/p recurrence in09/2016 in retrocaval, b/l pelvic LNs, and neck s/p carbotaxol x6c and RT, now with oligorecurrent aortocaval LAD noted on 12/15/21 imaging. She is a candidate for SBRT, 24 Gy in 3 fractions, due to prior irradiation 5 years ago. We reviewed the risks, benefits, alternatives, and logistics of radiation therapy. All questions answered. Virtual informed consent was obtained with myself and Dr. Youngblood as witness. We will schedule simulation. Camden Curtis MD Radiation Oncology Resident, PGY2 Pager: [phone] Staff Note: I personally interviewed and examined the patient, I also confirmed and edited the history, assessment and management plan documented by the resident. Assessment: as annotated above. Plan : I agree with the above decision made by the resident. Oligo-persistent disease, for consideration of SBRT 24Gy/3fx'sWe spent over 50% of a total iuss-pc-krim time of 60 minutes, counseling/coordinating patient care. Naila Youngblood MD, MSc, MRCP, [facility] Radiation Oncology Staff Physician February 11, 2022 9:01 AM cc: Rosmery Horn [address] [place] [address] Racheal Ivone Saldana [address] [facility] [id number] MD Nenita Vazquez MD documented in this encounterTrinity Health System06-03-2022 History of Present illness Narrative* Rosmery Horn MD - 01/30/2022 2:13 PM EDT Chief Complaint No chief complaint on file. HPI Rosita Kennedy is a 76 year old female who is contacted today for a virtual/telemedicine visit. This is an established patient of Dr. Rosmery Horn MD. Patient has recurrence of her uterine cancer and aorto node that is around 3 cm in size which between the aorta and the kidney.. She has been having back pain which was what alerted as to doing a CT scan of her abdomen. The tumor board is going to come up with the suggestions for her and most likely she will be going for radiotherapy. Her friend Angelique was with her on the call and so was her son Rivera. The main concerns were to get her medications back for her in the pill packaging and to clarify allthe medication doses. Another concern was that she is having recurrent urinary tract infections from her MS and she is onMacrobid daily but that is not helping her so we are sending her to urology and changing her daily prophylaxis to Keflex. She recently had a straight cath done which brought out urine which grew Pseudomonas. I would like her to see Abebe Gonsalez to take care of her urinary issues Pain in the back.. Is better with meloxicam so we can to continue that and get some blood work to monitor her kidneys. We are also checking her thyroid and host of other labs. Past medical history, appointments, medications, allergies reviewed 01/30/2022 Previous Medical History PAST MEDICAL HISTORY Diagnosis Date Cataracts, bilateral COAG (chronic open-angle glaucoma) CRVO (central retinal vein occlusion) Disorder of bone and cartilage, unspecified Multiple sclerosis (HCC) 2001 remission currently Pseudophakia, both eyes Pyelonephritis, unspecified 01/2010 Pyelonephritis Uterine cancer (HCC) 08/08/2014 Previous Surgical History PAST SURGICAL HISTORY Procedure Laterality Date DELIVERY ONLY , low cervical X3 COLONOSCOPY 05/18/2016 Dr. Gibbs. no bx taken COLONOSCOPY, GI 1998, 2009 EYE SURGERY PROCEDURE Left 04/11/2021 Xen Gel stent EYLEA (AFLIBERCEPT) 2MG INTRAVITREAL INJECTION OD (RIGHT EYE) Right 04/02/2016 #7 INSERT ANT SEGMENT DRAIN INT 11/21/2014 iStent Implantation Left Eye LIG/TRNSXJ FLP TUBE ABDL/VAG APPR UNI/BI 1976 PAST SURGICAL HISTORY OF right EYE SURGERY AGE 7 PAST SURGICAL HISTORY OF Right 11/06/2020 Xen Gel PULMONARY FUNCTION TEST 06/07/03 XCAPSL CTRC RMVL INSJ IO LENS PROSTH W/O ECP 11/21/2014 Cataract Extraction with PC IOL/Femtosecond Laser Left Eye Family History FAMILY HISTORY Problem Relation Age of Onset Breast Cancer Sister Glaucoma Sister Heart Father mi Diabetes Father Hypertension Mother Alzheimer's Disease Mother Macular Degen Mother Glaucoma Mother Macular Degen Maternal Grandmother Patient Allergies ALLERGIES Allergen Reactions Codeine hives Dye GI Upset Diarrhea after CT oral contrast 01/2018 Erythromycin GI Upset Methylprednisolone Hives IV Sulfa (Sulfonamide * hives Current Medications Current Outpatient Medications on File Prior to Visit Medication Sig travoprost (TRAVATAN Z) 0.004 % ophthalmic drops Use 1 Drop in both eyes daily at bedtime. brimonidine-timolol (COMBIGAN) 0.2-0.5 % ophthalmic solution Use 1 Drop in the right eye twice daily. Use at 9 AM and 3 PM ondansetron orally disintegrating (ZOFRAN ODT) 4 mg disintegrating tablet Take 1 tablet by mouth every 6 hours as needed for nausea/vomiting. phenazopyridine (PYRIDIUM, GERIDIUM) 200 mg tablet Take 1 tablet by mouth three times daily as needed. aspirin, enteric coated (ECOTRIN LOW STRENGTH) 81 mg EC tablet Take 1 tablet by mouth once daily. wheat dextrin (BENEFIBER SUGAR FREE, DEXTRIN,) 3 gram/4 gram powd Take 2 teaspoonsful by mouth oncedaily. calcium carb/vitamin D3/vit K1 (VIACTIV ORAL) Take 1 tablet by mouth once daily. Vaginal Lubricant (REPLENS) gel Use 6.7 g vaginally every other day. L GASSERI/B BIFIDUM/B LONGUM ([facility] ORAL) Take by mouth. CHOLECALCIFEROL, VITAMIN D3, (VITAMIN D3 ORAL) Take by mouth once daily. LUTEIN ORAL Take by mouth. MULTIVITAMIN TABLET PO Take one(1) tablet daily. Current Facility-Administered Medications on File Prior to Visit Medication perflutren lipid microspheres 1.3 mL in NaCl (PF) 0.9% 10 mL injection (DEFINITY) sodium chloride 0.9 % (flush) 10 mL (BD POSIFLUSH) Social History Social History Tobacco Use Smoking status: Never Smoker Smokeless tobacco: Never Used Vaping Use Vaping Use: Never used Substance Use Topics Alcohol use: Yes Comment: 1 drink per month not used in 1 year Drug use: No Review of Symptoms GENERAL: No weight loss. No malaise or fevers HEENT: Negative for headaches No eye discharge or redness No earaches or drainage No sore throat Nose POS/NEG for congestion and nasal discharge NECK: Negative for lumps, pain or significant neck swelling RESPIRATORY: No wheezing, SOB, Difficulty breathing. CARDIOVASCULAR: Negative for chest pain GI: No nausea, vomiting, or diarrhea MUSCULOSKELETAL: Negative for muscle aches or bodyaches SKIN: Negative for lesions, rash, and itching Neuro: No lightheadedness or dizziness EXAM: There were no vitals taken for this visit. Deferred physical exam as visit was completed over the phone. Virtual visit completed using video, limited exam completed. General Appearance: Well appearing, alert, in no acute distress, well-hydrated, well nourished. Skin: Skin color Head: Normocephalic Psych: Attitude - cooperative, easily engaged in conversation Appearance - normal, hygiene and grooming appropriate Affect - euthymic, normal mood Mental status: Alert, attentive. Speech is clear and fluent with good repetition, comprehension Coordination: No abnormal or extraneous movements. Gait/Stance: Posture is normal. Health Maintenance List PNEUMOCOCCAL: 67+(3 - PCV) due on 06/11/2016 ADVANCE DIRECTIVE DISCUSSION Never done DTAP,TDAP,TD(1 - Tdap) due on 04/01/2022 INFLUENZA(Season Ended) due on 04/30/2022 MAMMOGRAM due on 10/30/2022 DEPRESSION SCREENING due on 01/21/2023 ANNUAL PCP TEAM CHRONIC DISEASE VISIT due on 01/30/2023 DIABETES SCREEN due on 11/12/2024 LIPID SCREEN due on 2025 COLORECTAL CANCER SCREENING due on 04/24/2030 BONE DENSITY Completed SHINGRIX VACCINE Completed COVID-19 VACCINE Completed HEPATITIS C SCREENING Discontinued Data reviewed Last 5 Encounter BP Readings: Date: BP: 01/05/2022 147/79 11/20/2021 102/60 11/12/2021 136/84 10/29/2021 128/68 10/28/2021 134/61 BMI Readings from Last 5 Encounters: 01/05/22 : 23.44 kg/m 11/20/21 : 23.05 kg/m 11/12/21 : 23.44 kg/m 10/29/21 : 23.83 kg/m 10/28/21 : 24.02 kg/m Last 5 Encounter Wt Readings: Date: Wt: 01/05/2022 54.4 kg (120 lb) 11/20/2021 53.5 kg (118 lb) 11/12/2021 54.4 kg (120 lb) 10/29/2021 55.3 kg (122 lb) 10/28/2021 55.8 kg (123 lb) Medication and allergy list reviewed, reconciled and updated 01/30/2022 ASSESSMENT/PLAN: 1. Encounter for monitoring chronic NSAID therapy - ICD9: V58.83, V58.64, ICD10: Z51.81, Z79.1 (primary diagnosis) - COMP METABOLIC PANEL - CBC + DIFF 2. Hypokalemia - ICD9: 276.8, ICD10: E87.6 - MAGNESIUM BLD - FUROSEMIDE 20 MG TABLET - POTASSIUM CHLORIDE ER 10 MEQ TABLET,EXTENDED RELEASE 3. Mixed hyperlipidemia - ICD9: 272.2, ICD10: E78.2 4. Vitamin D deficiency - ICD9: 268.9, ICD10: E55.9 - VITAMIN D 25 HYDROXY 5. Hypothyroidism, unspecified type - ICD9: 244.9, ICD10: E03.9 - Instructed patient on importance of taking on an empty stomach either first thing in the morning or at bedtime. Stable - Continue current medications - TSH BLD 6. Recurrent UTI - ICD9: 599.0, ICD10: N39.0 Changing the abx to keflex - URINE CULTURE - CONSULT TO UROLOGY 7. Depression, unspecified depression type - ICD9: 311, ICD10: F32.A - SERTRALINE 25 MG TABLET - MIRTAZAPINE 15 MG TABLET 8. Insomnia, unspecified type - ICD9: 780.52, ICD10: G47.00 - MIRTAZAPINE 15 MG TABLET Rosmery Horn MD documented in this encounterTrinity Health System05-27-2022 Miscellaneous Notes* Telephone Encounter - Racheal Saldana APRN.CNP - 01/23/2022 1:55 PM EDT I called and spoke to Rivera regarding his mother's recent UA results - suspicious for infection. Still awaiting UCx results. Will proceed with treating her with an antibiotic and tailor based on results. He is aware rad onc consult to [facility] order is placed. He is going to call and arrange appointment. Racheal Saldana APRN.CNP The following approved medication requests have been transmitted electronically. Signed Prescriptions Disp Refills cephALEXin (KEFLEX) 500 mg capsule 20 capsule 0 Sig: Take 1 capsule by mouth four times daily for 5 days. Authorizing Provider: RACHEAL SALDANA APRN.CNP documented in this encounterTrinity Health System05-26-2022 History of Present illness Narrative* Joseluis Perez MD - 01/22/2022 11:30 AM EDT DATE OF SERVICE: 01/22/2022 REASON FOR VISIT: Presents for follow up visit to discuss tumor board recommendations and plan of care DIAGNOSIS: Stage IA FIGO grade 2 endometrioid adenocarcinoma, negative LVSI and negative nodes. MMRnormal. Now with recurrence. HISTORY TO DATE: 1. Initital presentation: Ms. Kennedy is a 75 year old female with MS and depression. Saw Skylar Ackerman CNP for complaints of PMB, 5 day history. On 07/25/2014 had a EMB that showed Well differentiated endometrioid adenocarcinoma, FIGO grade 1. HNPCC screening negative 2. 09/12/2014 Surgery: Single-port total laparoscopic hysterectomy with bilateral salpingo-oophorectomy, bilateral pelvic lymphadenectomy, bilateral periaortic lymphadenectomy and cystoscopy 3.) 10/03/14 Consult to rad onc: RT deferred 4.) 10/26/2016: Lymphatic recurrence in left neck right retrocaval, bilateral pelvis 5.) 12/03/2016: Lymph node FNA: Positive for malignant cells. Adenocarcinoma 6.) 12/10/2016-04/01/2017: Chemo - Carbo/Taxol x 6 cycles 7.) 12/22/2016 CARIS testing- see scanned document for details 8.) 05/2017: Radiation - RT to left supraclavicular region, retroperitoneal/pelvic node region 9.) 02/2018: Right retrorenal LN met not amenable to SRS or removal. Pt declined cytotoxic therapy ER 50%, NV negative 10). 03/31/2018 - 03/16/2019: Letrozole started. Everolimus added 06/23/2018 due to progression. Treatment discontinued 03/16/2019 due to disease progression (confirmed 03/06/2019). Patient elected treatment holiday. 11.)08/2018: PE, IVC filter placement 12.) 01/01/2022: [facility]. Recommended RT (vs systemic chemotherapy) for management of hypermetabolic aortocaval lymphadenopathy (12/15 CT and 12/22 PET). Patient would prefer treatment in [place], [place]. 13). 01/05/2022: Consult with Rad/Onc (Dr. Solorio in [place]). Per family, RT was not recommended due toconcerns with risk of damage to bowels and kidney given the lymph node location. 14). 01/13/2022: Tumor Board Management Options: - Radiation oncology consultation for discussion of SBRT. - Recommend systemic treatment with pembrolizumab/lenvima. Date of last follow up: 01/05/2022 distance health (only spoke with patient's family) PAST MEDICAL HISTORY Diagnosis Date Cataracts, bilateral COAG (chronic open-angle glaucoma) CRVO (central retinal vein occlusion) Disorder of bone and cartilage, unspecified Multiple sclerosis (HCC) 2001 remission currently Pseudophakia, both eyes Pyelonephritis, unspecified 01/2010 Pyelonephritis Uterine cancer (HCC) 08/08/2014 PAST SURGICAL HISTORY Procedure Laterality Date DELIVERY ONLY , low cervical X3 COLONOSCOPY 05/18/2016 Dr. Gibbs. no bx taken COLONOSCOPY, GI 1998, 2009 EYE SURGERY PROCEDURE Left 04/11/2021 Xen Gel stent EYLEA (AFLIBERCEPT) 2MG INTRAVITREAL INJECTION OD (RIGHT EYE) Right 04/02/2016 #7 INSERT ANT SEGMENT DRAIN INT 11/21/2014 iStent Implantation Left Eye LIG/TRNSXJ FLP TUBE ABDL/VAG APPR UNI/BI 1976 PAST SURGICAL HISTORY OF right EYE SURGERY AGE 7 PAST SURGICAL HISTORY OF Right 11/06/2020 Xen Gel PULMONARY FUNCTION TEST 06/07/03 XCAPSL CTRC RMVL INSJ IO LENS PROSTH W/O ECP 11/21/2014 Cataract Extraction with PC IOL/Femtosecond Laser Left Eye Family History Problem Relation Age of Onset Breast Cancer Sister Glaucoma Sister Heart Father mi Diabetes Father Hypertension Mother Alzheimer's Disease Mother Macular Degen Mother Glaucoma Mother Macular Degen Maternal Grandmother PATHOLOGY 09/12/14 Staging Moderately differentiated endometrioid adenocarcinoma, FIGO grade 2. myometiral invasion (2 mm out of 16 mm) TUMOR SIZE: 2.8 cm LYMPH-VASCULAR INVASION: Not identified Nodes negative 11/26/2016 ESTROGEN/PROGESTERONE RECEPTOR (ER/NV) ANALYSIS Estrogen receptors immunostain appears weakly to moderately positive in 30% of cell nuclei. Progesterone receptors immunostain appears moderately positive in 50% of cell nuclei. 2016 BIOPSY- CT-guided percutaneous biopsy of retroperitoneal lymph node Right lower back retroperitoneal lymph node, biopsy Metastatic carcinoma consistent with endometrial primary. Keratin AE1/AE3 and PAX8 are positive, consistent with the above interpretation. Neal Mckinney, Catrachita and Mehnaz concur with the interpretation. Estrogen receptor is positive (50% of tumor cells) and progesterone receptor is negative (0% of tumor cells). 12/03/2016 Lymph node FNA: Positive for malignant cells. Adenocarcinoma (see comment). TUMOR MARKERS: CA 125 (U/mL) Date Value 10/22/2021 31 06/06/2021 33 2020 33 01/09/2020 31 10/03/2019 27 06/21/2019 29 03/06/2019 41 02/02/2019 42 12/07/2018 48 11/07/2018 37 10/10/2018 38 07/05/2017 24 04/08/2017 24 03/18/2017 29 02/08/2017 31 02/04/2017 29 01/14/2017 34 08/09/2014 25 No results found for: CA199 RECENT IMAGIN04/16/2020 CT Chest IMPRESSION: Stable lung nodules and nodular density in the right apex. No new nodules identified. No CT evidence of lymphadenopathy in the chest 04/16/2020 CT Abd/Pel IMPRESSION: Basically unchanged aortocaval lymphadenopathy. Large amount of stool and gas in the large bowel loops 11/19/2020 CT Chest/Abd/Pel IMPRESSION: Stable right apical nodular density and a few tiny left lung nodules. No new nodules identified. No CT evidence of lymphadenopathy in the chest. IMPRESSION: Stable enlarged aortocaval lymph node, previously biopsied and compatible with metastatic endometrial cancer. No new site of metastatic disease in the abdomen and pelvis. 06/06/2021 CT CHEST IMPRESSION: Possible new area of nodularity in the right upper lobe which measures 3 mm in transverse. Close attention on interval follow-up may be helpful. Otherwise, stable appearing pulmonary nodularity. Additional findings noted above. 06/06/2021 CT ABD/PEL IMPRESSION: 1. Enlarged aortocaval lymph node appears unchanged in size compared to the prior study. 2. No new metastatic lesions in the abdomen or pelvis 11/12/2021 CT Abd/Pel IMPRESSION: 1. Enlarged aortocaval node measuring approximately 3.4 x 3.4 cm, previously 3.2 x 2.6 cm. 2. T10 vertebral body compression fracture with approximately 90% height loss is new from prior. 3. Findings suggestive of constipation. 4. Minimal right-sided pelviectasis and urothelial enhancement involving the right renal pelvis. Consider correlation with urinalysis. 12/15/2021 CT Chest IMPRESSION: 1. Subcentimeter irregular density in the right upper lobe, unchanged in size and configuration. 2. Persistent elevation/eventration of the right hemidiaphragm, with associated lower lung atelectasis. 3. Tiny nodular densities along the anterior aspect of the trachea unchanged. 4. No CT evidence of lymphadenopathy in the chest. 5. T10 vertebral body compression deformity/age indeterminate fracture. 12/15/2021 CT Abd/Pel IMPRESSION: 1. Stable to minimal interval increase in size of pathologic aortocaval lymph node. 2. No new or enlarging lymphadenopathy or mass identified. 3. Stable severe T10 vertebral body compression fracture. 12/22/2021 PET/CT IMPRESSION: 1. NECK: No FDG avid neoplastic process. No hypermetabolic mass, adenopathy, or fluid collection. 2. CHEST: No FDG avid neoplastic process. No hypermetabolic mass, adenopathy, or fluid collection. 3. ABDOMEN/PELVIS: Hypermetabolic aortocaval lymphadenopathy. No hypermetabolic mass or fluid collection. 4. EXTREMITIES/SKELETON: No suspicious FDG avid osseous process. HEALTH MAINTENANCE: Last mammogram: 10/30/2021 - negative Last colonoscopy: 02/24/2019 Last Pap: 02/10/2018 - Negative Last HPV: 04/09/2016 - Negative ECOG Performance Status: 0- Fully active, able to carry on all pre-disease performance w/o restriction. SUBJECTIVE: Rosita Kennedy reports that she feels well. No vaginal bleeding or discharge. No shortness of breath, cough, or chest pain. Reports intermittent diarrhea. No abdominal pain, nausea, vomiting, or constipation. No dysuria, gross hematuria, urinary frequency, urinary urgency, or incontinence. Her ECOG performance status is zero (fully active, able to carry on all pre-disease performancewithout restriction). Reports vertebral compression fracture and low back pain. She is following with physical therapy. Family reports that patient often exhibits symptoms concerning for UTI, like disorientation. Patient denies any neurological or urinary complaints currently but requests UA/UC for reassurance. OBJECTIVE: VITALS: There were no vitals taken for this visit. GENERAL: alert, oriented, pleasant and cooperative. HEENT: Normocephalic, atraumatic, mucus membranes moist and no lesions. NECK: Supple ASSESSMENT: 1. 76 yo stage IA FIGO 2 endometrial cancer, negative LVSI and negative nodes. MMR nl (verified) Complete staging 08/2013 RT deferred (Apolinar) Lymphatic recurrence L neck, R retrocaval, bilateral pelvis 2016 CT x 6 12/10/2016 - 04/01/2017 RT c 06/07/[address] met 02/2018 Not amenable to SRS or extirpation Pt declines cytotoxic therapy ER 50%, NV negative Letrozole start 03/31/2018 Everolimus add 06/23/201810/01 progression Disease progression 03/06/2019 Treatment holiday 03/16/2019 PE IVC filter 08/2018 Hx fall, contradictory imaging re hematoma S/p consult w Dr. Fiore Anticipate consideration of anticoagulation after appropriate interval from fall. Anticoagulation on hold given recurrent falls Recurrence - Aortocaval lymphadenopathy 12/2021 *PMHx: Multiple sclerosis PLAN: - Reviewed and discussed patient's treatment history. - Discussed the results of her 12/15 CT imaging which showed a minimal interval increase of an aortocaval lymph nodes and subsequent PET/CT done 12/22 which confirmed hypermetabolic aortocaval lymphadenopathy indicative of cancer recurrence. Reassured patient that the disease appears to be localized.Informed patient that local treatment modalities include surgery or radiation therapy; however, pert Tumor Board discussion, surgery is not recommended given the location of the lymph node and theincreased surgical risks. In regards to radiation therapy, there is some disagreement between the radiation oncologists due to the location of the lymph node and the risk of toxocity to structures maximino rby. Informed patient that although Dr. Solorio (Rad/Onc in [place]) does not recommend RT given the risks, Dr. Youngblood (Rad/Onc) believes that SBRT can be an option and and is willing to consider it forpatient, though there are risks. The goal of radiation would be to reduce the size of the lymph node and reduce symptom burden.. Recommended she meet with Dr. Youngblood to discuss option of stereotactic radiation in more detail. - As an alternative to RT, discussed option of systemic therapy with either Taxol, Doxil (chemotherapy) or Keytruda/lenvima (immunotherapy/targeted treatment) although this may not be a favorable option with her history of MS. Discussed the treatment plans and possible side effects associated with each option. Informed patient that although pembro/lenvima may be more effective than Doxil, considering her MS history, should she opt for systemic therapy, I believe Doxil would be more well tolerated. Patient made aware that either systemic option would likely need to be taken indefinitely as long as it is keeping the disease stable. Should she opt for systemic therapy, it can be administered in [place], [place]. Information pamphlet on each drug regimen was provided. - Patient agrees to review options for treatment and will contact office of her decision. - UA/UC obtained to rule out UTI Medical Decision Making: Problems: Moderate: 1+ chronic illnesses with change Data: Unique test result(s) reviewed: 2 Independent interpretation of test from other physician/QHCP Discussed management or test w/ external physician/QHCP/source Risk: Moderate: Moderate risk from testing/treatment Medical Decision Making Level: 4 - Moderate Aimee Murguia, attest that I personally scribed for Dr. Joseluis Perez MD and that the documentation was captured in collaboration with Dr. Joseluis Perez MD. Provider Attestation: Joseluis Murguia MD, personally performed the services described in this documentation. All medical record entries made by the scribe were at my direction and in my presence. I have reviewed the chart and discharge instructions (if applicable) and agree that the record reflects my personal performance and is accurate and complete. Joseluis Perez MD documented in this encounterTr[facility]05-20-2022 Miscellaneous Notes* Telephone Encounter - Kerry Leatha SMITH - 01/16/2022 12:12 PM EDT Patient has been identified by name and date of : Yes Patient phones for refill(s): Pending Prescriptions Disp Refills MELOXICAM 15 MG TABLET 30 tablet 1 Sig: Take 1 tablet by mouth once daily. With food. ARA: No Date of last office visit in primary care: 11/12/2021 Last 2 Encounter Wt Readings: Date: Wt: 01/05/2022 54.4 kg (120 lb) 11/20/2021 53.5 kg (118 lb) Previous labs/tests for medication: Not applicable Please advise. Thank you. Kerry Zhang LPN documented in this encounterTrinity [facility] System05-16-2022 Miscellaneous Notes* Telephone Encounter - Genny Keane Ma - 01/12/2022 4:33 PM EDT Mailed to home address * Telephone Encounter - Ellen Dash APRN.CNP - 01/12/2022 4:25 PM EDT Patient needing handicap placard, see other telephone encounter for further information. Please faxas requested. Thank you Ellen Dash APRN.CNP documented in this encounterTrinity Health System05-16-2022 Miscellaneous Notes* Telephone Encounter - Ellen Dash APRN.CNP - 01/12/2022 4:24 PM EDT Prescription for handicap placard with incorrect ordering provider, opening a new telephone encounter to make sure this prints correctly. Ellen Dash APRN.CNP * Telephone Encounter - Ellen Dash APRN.CNP - 01/09/2022 8:54 AM EDT This has been completed. Please let patient know she can pick this up. Thank you Ellen Dash APRN.CNP * Telephone Encounter - Marguerite Ann LPN - 01/08/2022 10:14 AM EDT Contacted patient for update on PT at [facility], states her last session is tomorrow and will have faxed over when complete. Patient requesting a handicap placecard for her back issues. Advised patient would check with you or forward to PCP if not appropriate. documented in this encounterTrinity Health System05-11-2022 Instructions* Patient Instructions* Peter Soto MD - 01/07/2022 4:19 PM EDT Current Ophthalmic Meds brimonidine-timolol (COMBIGAN) 0.2-0.5 % ophthalmic solution Use 1 Drop in the right eye twice daily. Use at 9 AM and 3 PM Continue: Vyzulta solution instill 1 drop at bedtime Right Eye. If you have any questions please contact our office at [phone]. After office hours or on the weekend, please call Dr. Soto on his cell phone at [phone]. documented in this encounterTrinity Health System05-11-2022 History of Present illness Narrative* Peter Soto MD - 01/07/2022 4:15 PM EDT ASSESSMENT/PLAN: 1. Primary open angle glaucoma (POAG) of right eye, severe stage - ICD9: 365.11, 365.73, ICD10: H40.1113 (primary diagnosis) 2. Primary open angle glaucoma (POAG) of left eye, moderate stage - ICD9: 365.11, 365.72, ICD10: H40.1122 Current Ophthalmic Meds brimonidine-timolol (COMBIGAN) 0.2-0.5 % ophthalmic solution Use 1 Drop in the right eye twice daily. Use at 9 AM and 3 PM Continue: Vyzulta solution instill 1 drop at bedtime Right Eye. The nature of glaucoma was discussed, with emphasis on the non-reversible damage to the optic nerve. Treatment options and the importance of regular examinations and testing were covered in detail, as well as the consequences of non-compliance. The patient was given the opportunity to ask questions. 3. Glaucomatous optic atrophy, bilateral - ICD9: 377.14, ICD10: H47.233 Monitor 4. Visual field loss - ICD9: 368.40, ICD10: H53.40 Monitor Right Eye. 5. Stable central retinal vein occlusion of right eye - ICD9: 362.35, ICD10: H34.8112 Monitor 6. Multiple sclerosis (HCC) - ICD9: 340, ICD10: G35 Continue to monitor with primary care physician/Neurology. Peter Soto MD I have confirmed and edited as necessary the relevant ophthalmic history, review of systems, surgical history, and ophthalmological examination findings as obtained by the ophthalmic technical staff.I have seen and examined Rosita Kennedy. I have discussed the examination findings, diagnosis, andtreatment options with Rosita Kennedy and/or her family. I have also reviewed and agree with the assessment and plan as stated above and agree with all its relevant components. I gave the patient the opportunity to ask questions about the findings, diagnosis, and treatment options. documented in this encounterTrinity Health System05-09-2022 History of Present illness Narrative* Joseluis Perez MD - 01/05/2022 5:30 PM EDT TELEVISIT PROGRESS NOTE This is a telephone encounter initiated for an established patient, parent or guardian not originating from a related Evaluation & Management service provided within the previous 7 days nor leading to an Evaluation & Management service or procedure within the next 24 hours or soonest available appointment. 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 MMRnormal. Now with recurrence. HISTORY TO DATE: 1. Initital presentation: Ms. Kennedy is a 75 year old female with MS and depression. Saw Skylar Ackerman CNP for complaints of PMB, 5 day history. On 07/25/2014 had a EMB that showed Well differentiated endometrioid adenocarcinoma, FIGO grade 1. HNPCC screening negative 2. 09/12/2014 Surgery: Single-port total laparoscopic hysterectomy with bilateral salpingo-oophorectomy, bilateral pelvic lymphadenectomy, bilateral periaortic lymphadenectomy and cystoscopy 3.) 10/03/14 Consult to rad onc: RT deferred 4.) 10/26/2016: Lymphatic recurrence in left neck right retrocaval, bilateral pelvis 5.) 12/03/2016: Lymph node FNA: Positive for malignant cells. Adenocarcinoma 6.) 12/10/2016-04/01/2017: Chemo - Carbo/Taxol x 6 cycles 7.) 12/22/2016 CARIS testing- see scanned document for details 8.) 05/2017: Radiation - RT to left supraclavicular region, retroperitoneal/pelvic node region 9.) 02/2018: Right retrorenal LN met not amenable to SRS or removal. Pt declined cytotoxic therapy ER 50%, NV negative 10). 03/31/2018 - 03/16/2019: Letrozole started. Everolimus added 06/23/2018 due to progression. Treatment discontinued 03/16/2019 due to disease progression (confirmed 03/06/2019). Patient elected treatment holiday. 11.)08/2018: PE, IVC filter placement 12.) 01/01/2022: [facility]. Recommended RT (vs systemic chemotherapy) for management of hypermetabolic aortocaval lymphadenopathy (12/15 CT and 12/22 PET). Patient agreeable to treatment in [place], [place]. 13). 01/05/2022: Consult with Rad/Onc (Dr. Solorio) Date of last follow up: 01/01/2022 PAST MEDICAL HISTORY Diagnosis Date Cataracts, bilateral COAG (chronic open-angle glaucoma) CRVO (central retinal vein occlusion) Disorder of bone and cartilage, unspecified Multiple sclerosis (HCC) 2001 remission currently Pseudophakia, both eyes Pyelonephritis, unspecified 01/2010 Pyelonephritis Uterine cancer (HCC) 08/08/2014 PAST SURGICAL HISTORY Procedure Laterality Date DELIVERY ONLY , low cervical X3 COLONOSCOPY 05/18/2016 Dr. Gibbs. no bx taken COLONOSCOPY, GI 1998, 2009 EYE SURGERY PROCEDURE Left 04/11/2021 Xen Gel stent EYLEA (AFLIBERCEPT) 2MG INTRAVITREAL INJECTION OD (RIGHT EYE) Right 04/02/2016 #7 INSERT ANT SEGMENT DRAIN INT 11/21/2014 iStent Implantation Left Eye LIG/TRNSXJ FLP TUBE ABDL/VAG APPR UNI/BI 1976 PAST SURGICAL HISTORY OF right EYE SURGERY AGE 7 PAST SURGICAL HISTORY OF Right 11/06/2020 Xen Gel PULMONARY FUNCTION TEST 06/07/03 XCAPSL CTRC RMVL INSJ IO LENS PROSTH W/O ECP 11/21/2014 Cataract Extraction with PC IOL/Femtosecond Laser Left Eye Family History Problem Relation Age of Onset Breast Cancer Sister Glaucoma Sister Heart Father mi Diabetes Father Hypertension Mother Alzheimer's Disease Mother Macular Degen Mother Glaucoma Mother Macular Degen Maternal Grandmother PATHOLOGY 09/12/14 Staging Moderately differentiated endometrioid adenocarcinoma, FIGO grade 2. myometiral invasion (2 mm out of 16 mm) TUMOR SIZE: 2.8 cm LYMPH-VASCULAR INVASION: Not identified Nodes negative 11/26/2016 ESTROGEN/PROGESTERONE RECEPTOR (ER/NV) ANALYSIS Estrogen receptors immunostain appears weakly to moderately positive in 30% of cell nuclei. Progesterone receptors immunostain appears moderately positive in 50% of cell nuclei. 2016 BIOPSY- CT-guided percutaneous biopsy of retroperitoneal lymph node Right lower back retroperitoneal lymph node, biopsy Metastatic carcinoma consistent with endometrial primary. Keratin AE1/AE3 and PAX8 are positive, consistent with the above interpretation. Drs. Mathews, Neal, Catrachita and Mehnaz concur with the interpretation. Estrogen receptor is positive (50% of tumor cells) and progesterone receptor is negative (0% of tumor cells). 12/03/2016 Lymph node FNA: Positive for malignant cells. Adenocarcinoma (see comment). TUMOR MARKERS: CA 125 (U/mL) Date Value 10/22/2021 31 06/06/2021 33 2020 33 01/09/2020 31 10/03/2019 27 06/21/2019 29 03/06/2019 41 02/02/2019 42 12/07/2018 48 11/07/2018 37 10/10/2018 38 07/05/2017 24 04/08/2017 24 03/18/2017 29 02/08/2017 31 02/04/2017 29 01/14/2017 34 08/09/2014 25 No results found for: CA199 RECENT IMAGIN04/16/2020 CT Chest IMPRESSION: Stable lung nodules and nodular density in the right apex. No new nodules identified. No CT evidence of lymphadenopathy in the chest 04/16/2020 CT Abd/Pel IMPRESSION: Basically unchanged aortocaval lymphadenopathy. Large amount of stool and gas in the large bowel loops 11/19/2020 CT Chest/Abd/Pel IMPRESSION: Stable right apical nodular density and a few tiny left lung nodules. No new nodules identified. No CT evidence of lymphadenopathy in the chest. IMPRESSION: Stable enlarged aortocaval lymph node, previously biopsied and compatible with metastatic endometrial cancer. No new site of metastatic disease in the abdomen and pelvis. 06/06/2021 CT CHEST IMPRESSION: Possible new area of nodularity in the right upper lobe which measures 3 mm in transverse. Close attention on interval follow-up may be helpful. Otherwise, stable appearing pulmonary nodularity. Additional findings noted above. 06/06/2021 CT ABD/PEL IMPRESSION: 1. Enlarged aortocaval lymph node appears unchanged in size compared to the prior study. 2. No new metastatic lesions in the abdomen or pelvis 11/12/2021 CT Abd/Pel IMPRESSION: 1. Enlarged aortocaval node measuring approximately 3.4 x 3.4 cm, previously 3.2 x 2.6 cm. 2. T10 vertebral body compression fracture with approximately 90% height loss is new from prior. 3. Findings suggestive of constipation. 4. Minimal right-sided pelviectasis and urothelial enhancement involving the right renal pelvis. Consider correlation with urinalysis. 12/15/2021 CT Chest IMPRESSION: 1. Subcentimeter irregular density in the right upper lobe, unchanged in size and configuration. 2. Persistent elevation/eventration of the right hemidiaphragm, with associated lower lung atelectasis. 3. Tiny nodular densities along the anterior aspect of the trachea unchanged. 4. No CT evidence of lymphadenopathy in the chest. 5. T10 vertebral body compression deformity/age indeterminate fracture. 12/15/2021 CT Abd/Pel IMPRESSION: 1. Stable to minimal interval increase in size of pathologic aortocaval lymph node. 2. No new or enlarging lymphadenopathy or mass identified. 3. Stable severe T10 vertebral body compression fracture. 12/22/2021 PET/CT IMPRESSION: 1. NECK: No FDG avid neoplastic process. No hypermetabolic mass, adenopathy, or fluid collection. 2. CHEST: No FDG avid neoplastic process. No hypermetabolic mass, adenopathy, or fluid collection. 3. ABDOMEN/PELVIS: Hypermetabolic aortocaval lymphadenopathy. No hypermetabolic mass or fluid collection. 4. EXTREMITIES/SKELETON: No suspicious FDG avid osseous process. HEALTH MAINTENANCE: Last mammogram: 10/30/2021 - negative Last colonoscopy: 02/24/2019 Last Pap: 02/10/2018 - Negative Last HPV: 04/09/2016 - Negative ECOG Performance Status: 0- Fully active, able to carry on all pre-disease performance w/o restriction. SUBJECTIVE: N/a. 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 Spoke to patient's family. OBJECTIVE: Deferred due to distance health ASSESSMENT: 1. 76 yo stage IA FIGO 2 endometrial cancer, negative LVSI and negative nodes. MMR nl (verified) Complete staging 08/2013 RT deferred (Apolinar) Lymphatic recurrence L neck, R retrocaval, bilateral pelvis 2016 CT x 6 12/10/2016 - 04/01/2017 RT c 06/07/[address] met 02/2018 Not amenable to SRS or extirpation Pt declines cytotoxic therapy ER 50%, NV negative Letrozole start 03/31/2018 Everolimus add 06/23/2018 2 progression Disease progression 03/06/2019 Treatment holiday 03/16/2019 PE IVC filter 08/2018 Hx fall, contradictory imaging re hematoma S/p consult w Dr. Fiore Anticipate consideration of anticoagulation after appropriate interval from fall. Anticoagulation on hold given recurrent falls Recurrence - Aortocaval lymphadenopathy 12/2021 PLAN: - We discussed the results of patient's CT imaging from 12/15 which showed a minimal interval increase of an aortocaval lymph node and the subsquent PET/CT from 12/2021 confirmed hypermetabolic aortocaval lymphadenopathy. I explained that the findings are suggestive of recurrence and since the disease appears localized, radiation therapy was initially recommended. Per patient's family, patient consulted with Rad/Onc (Dr. Solorio) at [place]; however, radiation therapy was not recommended due to concerns with risk of damage to bowels and kidney given the lymph node location. - I will discussed patient's case with Dr. Solorio as well as obtain 2nd opinion from Rad/Onc. Explained to family that in the event radiation is not feasible, surgery may be an option although it would be complicated given the location of the lymph node . If she is not a candidate for localized treatment, systemic therapy would be the other option. - Briefly discussed options for systemic therapy with Doxil chemotherapy (infusions q 4 weeks) vs immunotherapy/targeted treatment. - Plan for clinic follow up next week to discuss treatment options in more detail and finalize planof care. In the meantime, I will discuss patient's case with Rad/Onc and tumor board (Caris testing done 11/2016 results in scanned documents) Medical Decision Making: Problems: Moderate: 1+ chronic illnesses with change Data: Unique test result(s) reviewed: 2 Risk: Moderate: Moderate risk from testing/treatment Medical Decision Making Level: 4 - Moderate Aimee Murguia, attest that I personally scribed for Dr. Joseluis Perez MD and that the documentation was captured in collaboration with Dr. Joseluis Perez MD. Provider Attestation: Joseluis Murguia MD, personally performed the services described in this documentation. All medical record entries made by the scribe were at my direction and in my presence. I have reviewed the chart and discharge instructions (if applicable) and agree that the record reflects my personal performance and is accurate and complete. Joseluis Perez MD documented in this encounterTrinity Health System05-09-2022 History of Present illness Narrative* Nenita Solorio MD, MD - 01/05/2022 1:54 PM EDT Radiation Oncology - New Patient/Consult Note PATIENT NAME: Rosita Kennedy PATIENT REQUESTING PROVIDER: Joseluis Perez MD DIAGNOSIS: Metastatic endometrioid endometrial adenocarcinoma with solitary progression of disease in the aortocaval node. HPI: 76 year old female who presents with above diagnosis, for an opinion regarding the role of radiation therapy in the management of the patient's disease. Final recommendations will be communicated back to the requesting physician by way of the shared medical record, or letter to requesting physician via [place] mail. 76 year old woman who was initially diagnosed with stage IA grade 2 endometrioid endometrial adenocarcinoma in 2014 when she presented with post-menopausal bleeding. She underwent single-port total laparoscopic hysterectomy with bilateral salpingo-oophorectomy, bilateral pelvic lymphadenectomy, Bilateral periaortic lymphadenectomy, and cystoscopy with Dr. Freeman on 09/12/2014. Pathology showed moderately differentiated endometrioid adenocarcinoma, FIGO grade 2, IA (2 of 16 mm invasion), 2.8 cm, 0/[address], 0/[address], no LVSI. HNPCC screen was negative. She had recurrence in the pelvic and para-aortic nodes and left supraclavicular node in 2017. CT-guided biopsy of RP LN on 2016 showed metastatic carcinoma consistent with endometrial primary, ER+ 50% and NV- 0%. On 11/30/2016, FNA of the left neck node also showed adenocarcinoma. She was treated with chemotherapy with 6 cycles of Carboplatin and Taxol and had partial response. She then underwent radiation treatment to the Left supraclavicular region, Retroperitoneal/pelvic node region in abdomen/pelvis with 55Gy in 25 fractions to the gross disease and 45Gy in 25 fractions to elective derek region from 05/04/17 to 06/07/17. She was then treated with Letrozole from 03/2018 to 02/2019. Surveillance CT c/a/p on 06/06/21 showed Possible new area of nodularity in the right upper lobe lung measuring 3mm and enlarged aortocaval lymph node appears unchanged in size compared to 11/19/2020.Follow-up CT a/p on 11/12/21 showed Enlarged aortocaval node measuring approximately 3.4 x 3.4 cm from 3.2 x 2.6 cm. PET/CT scan on 12/22/21 showed a hypermetabolic 4.8 x 3.3 x 2.6 cm aortocaval lymphadenopathy with maximum SUV 15.3. She denies any nausea or any abdominal pain. ALLERGIES Allergen Reactions Codeine hives Dye GI Upset Diarrhea after CT oral contrast 01/2018 Erythromycin GI Upset Methylprednisolone Hives IV Sulfa (Sulfonamide * hives PAST MEDICAL HISTORY Diagnosis Date Cataracts, bilateral COAG (chronic open-angle glaucoma) CRVO (central retinal vein occlusion) Disorder of bone and cartilage, unspecified Multiple sclerosis (HCC) 2001 remission currently Pseudophakia, both eyes Pyelonephritis, unspecified 01/2010 Pyelonephritis Uterine cancer (HCC) 08/08/2014 Prior radiation therapy, collagen vascular disease, or inflammatory bowel disease: Yes, previous radiation treatment as above. status: Post-menopausal. PAST SURGICAL HISTORY Procedure Laterality Date DELIVERY ONLY , low cervical X3 COLONOSCOPY 05/18/2016 Dr. Gibbs. no bx taken COLONOSCOPY, GI 1998, 2009 EYE SURGERY PROCEDURE Left 04/11/2021 Xen Gel stent EYLEA (AFLIBERCEPT) 2MG INTRAVITREAL INJECTION OD (RIGHT EYE) Right 04/02/2016 #7 INSERT ANT SEGMENT DRAIN INT 11/21/2014 iStent Implantation Left Eye LIG/TRNSXJ FLP TUBE ABDL/VAG APPR UNI/BI 1976 PAST SURGICAL HISTORY OF right EYE SURGERY AGE 7 PAST SURGICAL HISTORY OF Right 11/06/2020 Xen Gel PULMONARY FUNCTION TEST 06/07/03 XCAPSL CTRC RMVL INSJ IO LENS PROSTH W/O ECP 11/21/2014 Cataract Extraction with PC IOL/Femtosecond Laser Left Eye FAMILY HISTORY Problem Relation Age of Onset Breast Cancer Sister Glaucoma Sister Heart Father mi Diabetes Father Hypertension Mother Alzheimer's Disease Mother Macular Degen Mother Glaucoma Mother Macular Degen Maternal Grandmother Social History Tobacco Use Smoking status: Never Smoker Smokeless tobacco: Never Used Vaping Use Vaping Use: Never used Substance Use Topics Alcohol use: Yes Comment: 1 drink per month not used in 1 year Drug use: No COMPLETE REVIEW OF SYSTEMS: GENERAL: feeling well without fatigue, no recent change in weight HEENT: denies GRACE, change in hearing or vision, no other ENT complaints NECK: denies swelling or pain in neck RESPIRATORY: stable shortness of breath on exertion CARDIOVASCULAR: no chest pain, no palpitations GI: normal appetite, tolerating PO well, BMs normal and no abdominal pain : urination is normal MUSCULOSKELETAL: T10 compression fracture. SKIN: no rash HEMATOLOGY/LYMPHOLOGY: negative for prolonged bleeding, no swollen lymph nodes NEURO: Occasional problems with balance. PHYSICAL EXAM: VS: BP 147/79 Pulse 87 Temp 37.3 C (99.2 F) Wt 54.4 kg (120 lb) SpO2 94% BMI 23.44 kg/m KPS: 90 General Appearance: Alert and oriented. No acute distress. HEENT: NCAT. Sclera anicteric. EOMI. Neck: Normal ROM. Chest: No respiratory distress. Musculoskeletal: No edema. Normal ROM in extremities. Neuro: Speech fluent. Gait normal. No focal deficits. Hematologic: No signs of active bleeding. RADIOLOGY/LABORATORY DATA: see HPI ASSESSMENT AND PLAN: 76 year old woman with metastatic endometrioid endometrial adenocarcinoma withsolitary progression of disease in the aortocaval node. She had metastatic disease in the left supraclavicular node in 2017 treated with chemotherapy and radiation treatment. PET/CT now showed that the only area of active disease is in the aortocaval node. She had previous radiation treatment there with 55Gy in 25 fractions. Segment of small bowel (duodenum) had maximum tolerance dose. Re-treatment with definitive dose has high risks of duodenal complications. I will review her case with Dr. Jiang at the main [place]. Signed by: Nenita Solorio MD cc: Rosmery Horn [address] [place] [address] Racheal Saldana [address] [facility] [id number] Joseluis Perez MD documented in this encounterTrinity Health System05-09-2022 Nurse Note* Denise Ortiz RN - 01/05/2022 1:41 PM EDT Radiation Therapy - Nursing Note (Consult) PATIENT NAME: Rosita Kennedy PATIENT January 05, 2022 [facility] FACILITY/LOCATION: [place] Chief Complaint: new met. lesion, hx endometrial CA Reason for visit: Consult. Referring physician: Internal provider Dr Perez Subjective Data: states her abdomen has gotten larger over the last several months, but no pain. does have pain in back from compression fracture Additional Data Do you want to see a Chief Learning Officer? No Are you interested in information about fertility? No Status: Post-menopausal ÓSCAR?BSO Stress Scale: On a scale of 0 to 10, what number best describes how much distress you have experienced in the past week?(0 being no distress and 10 being extreme distress) 5 Social work notified: no SIGNED by: Denise Ortiz RN documented in this encounterTrinity Health System05-05-2022 History of Present illness Narrative* Joseluis Perez MD - 01/01/2022 5:00 PM EDT TELEVISIT PROGRESS NOTE This is a telephone encounter initiated for an established patient, parent or guardian not originating from a related Evaluation & Management service provided within the previous 7 days nor leading to an Evaluation & Management service or procedure within the next 24 hours or soonest available appointment. Patient name and birthday verified: Yes Location of patient: home Duration: 10 minutes Persons Present: patient DATE OF SERVICE: 01/01/2022 REASON FOR VISIT: Presents for follow up and scan review DIAGNOSIS: Stage IA FIGO grade 2 endometrioid adenocarcinoma, negative LVSI and negative nodes. MMRnormal HISTORY TO DATE: 1. Initital presentation: Ms. Kennedy is a 75 year old female with MS and depression. Saw Skylar Ackerman CNP for complaints of PMB, 5 day history. On 07/25/2014 had a EMB that showed Well differentiated endometrioid adenocarcinoma, FIGO grade 1. HNPCC screening negative 2. 09/12/2014 Surgery: Single-port total laparoscopic hysterectomy with bilateral salpingo-oophorectomy, bilateral pelvic lymphadenectomy, bilateral periaortic lymphadenectomy and cystoscopy 3.) 10/03/14 Consult to rad onc: RT deferred 4.) 10/26/2016: Lymphatic recurrence in left neck right retrocaval, bilateral pelvis 5.) 12/03/2016: Lymph node FNA: Positive for malignant cells. Adenocarcinoma 6.) 12/10/2016-04/01/2017: Chemo - Carbo/Taxol x 6 cycles 7.) 05/2017: Radiation - RT to left supraclavicular region, retroperitoneal/pelvic node region 8.) 02/2018: Right retrorenal LN met not amenable to SRS or removal. Pt declined cytotoxic therapy ER 50%, NV negative 9). 03/31/2018: Letrozole started. Everolimus added 06/23/2018 due to progression 10.)08/2018: PE, IVC filter placement 11.) 03/06/2019 Disease progression. Patient elected a treatment holiday Date of last follow up: 06/12/2021 PAST MEDICAL HISTORY Diagnosis Date Cataracts, bilateral COAG (chronic open-angle glaucoma) CRVO (central retinal vein occlusion) Disorder of bone and cartilage, unspecified Multiple sclerosis (HCC) 2001 remission currently Pseudophakia, both eyes Pyelonephritis, unspecified 01/2010 Pyelonephritis Uterine cancer (HCC) 08/08/2014 PAST SURGICAL HISTORY Procedure Laterality Date DELIVERY ONLY , low cervical X3 COLONOSCOPY 05/18/2016 Dr. Gibbs. no bx taken COLONOSCOPY, GI 1998, 2009 EYE SURGERY PROCEDURE Left 04/11/2021 Xen Gel stent EYLEA (AFLIBERCEPT) 2MG INTRAVITREAL INJECTION OD (RIGHT EYE) Right 04/02/2016 #7 INSERT ANT SEGMENT DRAIN INT 11/21/2014 iStent Implantation Left Eye LIG/TRNSXJ FLP TUBE ABDL/VAG APPR UNI/BI 1976 PAST SURGICAL HISTORY OF right EYE SURGERY AGE 7 PAST SURGICAL HISTORY OF Right 11/06/2020 Xen Gel PULMONARY FUNCTION TEST 06/07/03 XCAPSL CTRC RMVL INSJ IO LENS PROSTH W/O ECP 11/21/2014 Cataract Extraction with PC IOL/Femtosecond Laser Left Eye Family History Problem Relation Age of Onset Breast Cancer Sister Glaucoma Sister Heart Father mi Diabetes Father Hypertension Mother Alzheimer's Disease Mother Macular Degen Mother Glaucoma Mother Macular Degen Maternal Grandmother PATHOLOGY 09/12/14 Staging Moderately differentiated endometrioid adenocarcinoma, FIGO grade 2. myometiral invasion (2 mm out of 16 mm) TUMOR SIZE: 2.8 cm LYMPH-VASCULAR INVASION: Not identified Nodes negative 11/26/2016 ESTROGEN/PROGESTERONE RECEPTOR (ER/NV) ANALYSIS Estrogen receptors immunostain appears weakly to moderately positive in 30% of cell nuclei. Progesterone receptors immunostain appears moderately positive in 50% of cell nuclei. 2016 BIOPSY- CT-guided percutaneous biopsy of retroperitoneal lymph node Right lower back retroperitoneal lymph node, biopsy Metastatic carcinoma consistent with endometrial primary. Keratin AE1/AE3 and PAX8 are positive, consistent with the above interpretation. Neal Mckinney McKenney and Mehnaz concur with the interpretation. Estrogen receptor is positive (50% of tumor cells) and progesterone receptor is negative (0% of tumor cells). 12/03/2016 Lymph node FNA: Positive for malignant cells. Adenocarcinoma (see comment). TUMOR MARKERS: CA 125 (U/mL) Date Value 10/22/2021 31 06/06/2021 33 2020 33 01/09/2020 31 10/03/2019 27 06/21/2019 29 03/06/2019 41 02/02/2019 42 12/07/2018 48 11/07/2018 37 10/10/2018 38 07/05/2017 24 04/08/2017 24 03/18/2017 29 02/08/2017 31 02/04/2017 29 01/14/2017 34 08/09/2014 25 No results found for: CA199 RECENT IMAGIN04/16/2020 CT Chest IMPRESSION: Stable lung nodules and nodular density in the right apex. No new nodules identified. No CT evidence of lymphadenopathy in the chest 04/16/2020 CT Abd/Pel IMPRESSION: Basically unchanged aortocaval lymphadenopathy. Large amount of stool and gas in the large bowel loops 11/19/2020 CT Chest/Abd/Pel IMPRESSION: Stable right apical nodular density and a few tiny left lung nodules. No new nodules identified. No CT evidence of lymphadenopathy in the chest. IMPRESSION: Stable enlarged aortocaval lymph node, previously biopsied and compatible with metastatic endometrial cancer. No new site of metastatic disease in the abdomen and pelvis. 06/06/2021 CT CHEST IMPRESSION: Possible new area of nodularity in the right upper lobe which measures 3 mm in transverse. Close attention on interval follow-up may be helpful. Otherwise, stable appearing pulmonary nodularity. Additional findings noted above. 06/06/2021 CT ABD/PEL IMPRESSION: 1. Enlarged aortocaval lymph node appears unchanged in size compared to the prior study. 2. No new metastatic lesions in the abdomen or pelvis 11/12/2021 CT Abd/Pel IMPRESSION: 1. Enlarged aortocaval node measuring approximately 3.4 x 3.4 cm, previously 3.2 x 2.6 cm. 2. T10 vertebral body compression fracture with approximately 90% height loss is new from prior. 3. Findings suggestive of constipation. 4. Minimal right-sided pelviectasis and urothelial enhancement involving the right renal pelvis. Consider correlation with urinalysis. 12/15/2021 CT Chest IMPRESSION: 1. Subcentimeter irregular density in the right upper lobe, unchanged in size and configuration. 2. Persistent elevation/eventration of the right hemidiaphragm, with associated lower lung atelectasis. 3. Tiny nodular densities along the anterior aspect of the trachea unchanged. 4. No CT evidence of lymphadenopathy in the chest. 5. T10 vertebral body compression deformity/age indeterminate fracture. 12/15/2021 CT Abd/Pel IMPRESSION: 1. Stable to minimal interval increase in size of pathologic aortocaval lymph node. 2. No new or enlarging lymphadenopathy or mass identified. 3. Stable severe T10 vertebral body compression fracture. 12/22/2021 PET/CT IMPRESSION: 1. NECK: No FDG avid neoplastic process. No hypermetabolic mass, adenopathy, or fluid collection. 2. CHEST: No FDG avid neoplastic process. No hypermetabolic mass, adenopathy, or fluid collection. 3. ABDOMEN/PELVIS: Hypermetabolic aortocaval lymphadenopathy. No hypermetabolic mass or fluid collection. 4. EXTREMITIES/SKELETON: No suspicious FDG avid osseous process. HEALTH MAINTENANCE: Last mammogram: 10/30/2021 - negative Last colonoscopy: 02/24/2019 Last Pap: 02/10/2018 - Negative Last HPV: 04/09/2016 - Negative ECOG Performance Status: 0- Fully active, able to carry on all pre-disease performance w/o restriction. SUBJECTIVE: Rosita Kennedy reports that she feels well. No vaginal bleeding or discharge. No shortness of breath, cough, or chest pain. No abdominal pain, nausea, vomiting, diarrhea, or constipation. No dysuria, gross hematuria, urinary frequency, urinary urgency, or incontinence. Her ECOG performance status is zero (fully active, able to carry on all pre-disease performance without restriction). Reports back pain associated with compression fracture, managing with pain medication. OBJECTIVE: Deferred due to distance health ASSESSMENT: 1. 76 yo stage IA FIGO 2 endometrial cancer, negative LVSI and negative nodes. MMR nl (verified) Complete staging 08/2013 RT deferred ([facility]) Lymphatic recurrence L neck, R retrocaval, bilateral pelvis 2016 CT x 6 12/10/2016 - 04/01/2017 RT c 06/07/[address] met 02/2018 Not amenable to SRS or extirpation Pt declines cytotoxic therapy ER 50%, NV negative Letrozole start 03/31/2018 Everolimus add 06/23/201810/01 progression Disease progression 03/06/2019 Treatment holiday 03/16/2019 PE IVC filter 08/2018 Hx fall, contradictory imaging re hematoma S/p consult w Dr. Fiore Anticipate consideration of anticoagulation after appropriate interval from fall. Anticoagulation on hold given recurrent falls Aortocaval lymphadenopathy 12/2021 PLAN: - CA 125 WNL: 2/23/22 (31); 06/06/21 (33) - Discussed recent imaging results. CT imaging on 12/15 showed a stable to minimal interval increasein size of pathologic aortocaval lymph node and subsequent PET/CT on 12/22 showed hypermetabolic aortocaval lymphadenopathy. Informed patient that this finding is concerning for cancer progression. Rec ommended localized treatment with radiation therapy but can consider alternative options such as systemic chemotherapy if not feasible. Patient agrees to have a consult RT and would prefer treatment in [place], [place]. - Referral placed to Rad/Onc. - Plan for follow up once she completes RT. Medical Decision Making: Problems: Moderate: 1+ chronic illnesses with change Data: Unique test result(s) reviewed: 3+ Risk: Moderate: Moderate risk from testing/treatment Medical Decision Making Level: 4 - Moderate Aimee Murguia, attest that I personally scribed for Dr. Joseluis Perez MD and that the documentation was captured in collaboration with Dr. Joseluis Perez MD. Provider Attestation: Joseluis Murguia MD, personally performed the services described in this documentation. All medical record entries made by the scribe were at my direction and in my presence. I have reviewed the chart and discharge instructions (if applicable) and agree that the record reflects my personal performance and is accurate and complete. Joseluis Perez MD documented in this encounterTrinity Health System04-25-2022 History of Present illness Narrative* Mata Barry Anonymess - 12/22/2021 10:00 AM EDT RADIOLOGY SERVICE PROGRESS NOTE SERVICE DATE: 12/22/2021 SERVICE TIME: 10:35 AM PATIENT IDENTITY VERIFICATION COMPLETED USING TWO (2) STANDARD IDENTIFIERS: Name and Date of confirmed by patient verbally FALL SCREENING: Has the patient had 2 falls in the last year or 1 fall with injury or currently using an Ambulatory Assistive Device (Walker, Cane, Wheelchair, Crutches, etc.)? Yes, Patient High Riskfor Falls What interventions were put in place to prevent falls during this visit? [place] Risk Wristband Applied PATIENT GENDER DATA: .female : No ALLERGIES: Reviewed and unchanged MEDICATIONS REVIEWED: Yes PATIENT RELEVANT IMPLANT DATA REVIEWED: Not Applicable CREATININE: Creatinine Date Value Ref Range Status 11/12/2021 0.69 0.58 - 0.96 mg/dL Final 10/22/2021 0.79 0.58 - 0.96 mg/dL Final 08/21/2021 0.73 0.58 - 0.96 mg/dL Final Estimated Glomerular Filtration Rate Date Value Ref Range Status 11/12/2021 92 >=60 mL/min/1.73m Final Comment: Estimated Glomerular Filtration Rate (eGFR) is calculated using the 2020 CKD-EPI creatinine equation. This equation utilizes serum creatinine, sex, and age as parameters. The creatinine assay has traceable calibration to isotope dilution- mass spectrometry. Refer to KDIGO guidelines for clinical interpretation. In patients with unstable renal function, e.g. those with acute kidney injury, the eGFRmay not accurately reflect actual GFR. eGFR- Date Value Ref Range Status 10/22/2021 >60 Final P.O.C.T. RESULTS: N/A December 22, [address] PERFORMED: No IV SITE: Ambulatory: A peripheral IV was started in the Left hand with a Angio cath: 24 gauge. POST EXAM PIV STATUS: Discontinued PROCEDURE TYPE: NM INJECT: PET/CT BODY SCAN. 5.5 mCi F18 FDG. No other medications given.. ADMINISTRATION TIME: 1027 PATIENT DISCHARGED TO: Ambulatory patient, left NM department area. A Diagnostic radioactive procedure has taken place, with no further precautions necessary other than routine body substance precautions. More information regarding radiation safety can be found usingthis link: [email or web address] SIGNATURE: Lyn Valencia PATIENT NAME: Rosita Kennedy DATE: December 22, 2021 TIME: 10:35 AM PAGER/CONTACT #: documented in this encounterTrinity Health System04-18-2022 History of Present illness Narrative* Ramón Huston, RT(R) - 12/15/2021 2:40 PM EDT Radiology Service Progress Note DATE OF SERVICE: December 15, 2021 TIME: 4:10 PM PATIENT IDENTITY VERIFICATION COMPLETED USING TWO (2) STANDARD IDENTIFIERS: Name and Date of confirmed by patient verbally. FALL SCREENING: Has the patient had 2 falls in the last year or 1 fall with injury or currently using an Ambulatory Assistive Device (Walker, Cane, Wheelchair, Crutches, etc.)? No PATIENT GENDER DATA: Female. status: : No status: NO. PATIENT RELEVANT IMPLANT DATA REVIEWED: Yes ALLERGIES: Reviewed and unchanged CONTRAST ALLERGY: NO. EXAM: CT -CONTRAST INDUCED NEPHROPATHY RISK FACTORS: Patient age > 60 years CREATININE: Creatinine Date Value Ref Range Status 11/12/2021 0.69 0.58 - 0.96 mg/dL Final 10/22/2021 0.79 0.58 - 0.96 mg/dL Final 08/21/2021 0.73 0.58 - 0.96 mg/dL Final Estimated Glomerular Filtration Rate Date Value Ref Range Status 11/12/2021 92 >=60 mL/min/1.73m Final Comment: Estimated Glomerular Filtration Rate (eGFR) is calculated using the 2020 CKD-EPI creatinine equation. This equation utilizes serum creatinine, sex, and age as parameters. The creatinine assay has traceable calibration to isotope dilution- mass spectrometry. Refer to KDIGO guidelines for clinical interpretation. In patients with unstable renal function, e.g. those with acute kidney injury, the eGFRmay not accurately reflect actual GFR. eGFR- Date Value Ref Range Status 10/22/2021 >60 Final P.O.C.T. RESULTS: POC done: Yes, See Lab Tab December 15, 2021 TREATMENT: N/A PERIPHERAL IV DATA: Ambulatory: A peripheral IV was started in the Right hand with a Angio cath: 22gauge. RADIOLOGY DEPARTMENT: CT; Exam(s) Completed: Chest Abdomen Pelvis SIGNATURE: RT Gris(R) PATIENT NAME: Rosita Kennedy DATE: December 15, 2021 TIME: 4:10 PM documented in this encounterTrinity Health System03-25-2022 Miscellaneous Notes* Telephone Encounter - Rosmery oHrn MD - 11/21/2021 3:28 PM EDT Thanks , Have a great weekend! Regards, Rosmery Horn MD * Telephone Encounter - Rosmery Horn MD - 11/21/2021 9:[address] Perez, I appreciate your quick response, I have never ordered a PET CT, rarely done in primary care. When I put the order, there were a couple options the whole body and skull to thigh. Could you help me out on which one I have to order? Regards, Rosmery Horn MD * Telephone Encounter - Rosmery Horn MD - 11/19/2021 8:43 AM EDT Felipe Altamirano, Thank you for always being willing to help us with our mutual patients There seems to be some discrepancy with regards to her CTA of the abdomen pelvis reporting that wasdone in comparison to the previous one. We do not know how to check with the radiologist who reported this there is no doctors name sign with this report, we just have the [place] department. We are concerned that they have said that there is a linear filling defect noted in the proximal SMA concerning for thrombus which is not changed and the SMA is not occluded and. We do not really know what thismeans and we looked at the previous imaging and the report there was nothing of the sort written I know this is not probably what you are seeing the patient for normally but would like you to give your expert opinion, what do you think about this.? Regards, Rosmery Perez, Thank you for taking care of our mutual patient , I would be grateful for your input with regards with this patients recent ct. I know she was treated for uterine cancer in the past by your team. she has been having some vague abdominal complaints and also overall not feeling well over the past few weeks. I personally think she has declined in her overall health in during evaluation we did a CTA of the abdomen and found that there is one aortocaval node that is being reported on as larger than what it was probably a year ago. We would like to know if you have any concerns with this node because of her history of uterinecancer. Regards, Rosmery Horn MD documented in this encounterTrinity Health System03-31-2021 History of Present illness Narrative* Fred Duarte Tech (Rt) - 2020 2:00 PM EDT Radiology Service Progress Note PATIENT NAME: Rosita Kennedy DATE OF SERVICE: 2020 TIME: 2:23 PM PATIENT IDENTITY VERIFICATION COMPLETED USING TWO (2) IDENTIFIERS: Name and Date of confirmedby patient verbally. FALL SCREENING: Has the patient had 2 falls in the last year or 1 fall with injury or currently using an Ambulatory Assistive Device (Walker, Cane, Wheelchair, Crutches, etc.)? No PATIENT GENDER DATA: Female. status: : No status: NO. PATIENT RELEVANT IMPLANT DATA REVIEWED: Not Applicable RADIOLOGY DEPARTMENT: General X-ray: Exam(s) Completed: Pelvis X-Ray: Pelvis with Hip Bilateral PERIPHERAL IV DATA: Not applicable SIGNED BY: RT Aracely 2020 2:23 PM SIGNED BY: RT Aracely 2020 2:13 PM documented in this encounterTrinity Health System09-24-2019 History of Past illness Narrative* Problem Noted Date Resolved Date Primary open-angle glaucoma, left eye, moderate stage 05/23/2019 04/11/2021 Primary open angle glaucoma of right eye, modera te stage 03/01/2017 11/06/2020 Primary open-angle glaucoma, left eye, mild stag e 03/01/2017 10/14/2017 Primary open angle glaucoma of both eyes, modera te stage 10/01/2016 10/14/2017 Lens replaced by other means - Left Eye 11/30/19 15 08/05/2015 COAG (chronic open-angle glaucoma) - Both Eyes 1 09/05/2013 10/14/2017 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 07/06/2014 08/05/2015 Visual field defect, unspecified - Right Eye 02/201408/05/2015 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 07/06/2014 05/23/2019 documented as of this encounter (statuses as of 12/05/2021) [facility] History of Past illness Narrative* Problem Noted Date Resolved Date Primary open-angle glaucoma, left eye, moderate stage 05/23/2019 04/11/2021 Primary open angle glaucoma of right eye, modera te stage 03/01/2017 11/06/2020 Primary open-angle glaucoma, left eye, mild stag e 03/01/2017 10/14/2017 Primary open angle glaucoma of both eyes, modera te stage 10/01/2016 10/14/2017 Lens replaced by other means - Left Eye 11/30/1908/05/2015 COAG (chronic open-angle glaucoma) - Both Eyes 1 09/05/2013 10/14/2017 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 07/06/2014 08/05/2015 Visual field defect, unspecified - Right Eye 02/201408/05/2015 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 07/06/2014 05/23/2019 documented as of this encounter (statuses as of 12/05/2021) [facility] of Past illness Narrative* Problem Noted Date Resolved Date Primary open-angle glaucoma, left eye, moderate stage 05/23/2019 04/11/2021 Primary open angle glaucoma of right eye, modera te stage 03/01/2017 11/06/2020 Primary open-angle glaucoma, left eye, mild stag e 03/01/2017 10/14/2017 Primary open angle glaucoma of both eyes, modera te stage 10/01/2016 10/14/2017 Lens replaced by other means - Left Eye 11/30/19 15 08/05/2015 COAG (chronic open-angle glaucoma) - Both Eyes 1 09/05/2013 10/14/2017 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 07/06/2014 08/05/2015 Visual field defect, unspecified - Right Eye 02/201408/05/2015 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 07/06/2014 05/23/2019 documented as of this encounter (statuses as of 12/16/2021) [facility] of Past illness Narrative* Problem Noted Date Resolved Date Primary open-angle glaucoma, left eye, moderate stage 05/23/2019 04/11/2021 Primary open angle glaucoma of right eye, modera te stage 03/01/2017 11/06/2020 Primary open-angle glaucoma, left eye, mild stag e 03/01/2017 10/14/2017 Primary open angle glaucoma of both eyes, modera te stage 10/01/2016 10/14/2017 Lens replaced by other means - Left Eye 11/30/1908/05/2015 COAG (chronic open-angle glaucoma) - Both Eyes 1 09/05/2013 10/14/2017 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 07/06/2014 08/05/2015 Visual field defect, unspecified - Right Eye 02/201408/05/2015 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 07/06/2014 05/23/2019 documented as of this encounter (statuses as of 12/23/2021) [facility] of Past illness Narrative* Problem Noted Date Resolved Date Primary open-angle glaucoma, left eye, moderate stage 05/23/2019 04/11/2021 Primary open angle glaucoma of right eye, modera te stage 03/01/2017 11/06/2020 Primary open-angle glaucoma, left eye, mild stag e 03/01/2017 10/14/2017 Primary open angle glaucoma of both eyes, modera te stage 10/01/2016 10/14/2017 Lens replaced by other means - Left Eye 11/30/1908/05/2015 COAG (chronic open-angle glaucoma) - Both Eyes 1 09/05/2013 10/14/2017 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 07/06/2014 08/05/2015 Visual field defect, unspecified - Right Eye 02/201408/05/2015 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 07/06/2014 05/23/2019 documented as of this encounter (statuses as of 12/23/2021) [facility] History of Past illness Narrative* Problem Noted Date Resolved Date Primary open-angle glaucoma, left eye, moderate stage 05/23/2019 04/11/2021 Primary open angle glaucoma of right eye, modera te stage 03/01/2017 11/06/2020 Primary open-angle glaucoma, left eye, mild stag e 03/01/2017 10/14/2017 Primary open angle glaucoma of both eyes, modera te stage 10/01/2016 10/14/2017 Lens replaced by other means - Left Eye 11/30/1908/05/2015 COAG (chronic open-angle glaucoma) - Both Eyes 1 09/05/2013 10/14/2017 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 07/06/2014 08/05/2015 Visual field defect, unspecified - Right Eye 02/201408/05/2015 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 07/06/2014 05/23/2019 documented as of this encounter (statuses as of 12/25/2021) [facility] History of Past illness Narrative* Problem Noted Date Resolved Date Primary open-angle glaucoma, left eye, moderate stage 05/23/2019 04/11/2021 Primary open angle glaucoma of right eye, modera te stage 03/01/2017 11/06/2020 Primary open-angle glaucoma, left eye, mild stag e 03/01/2017 10/14/2017 Primary open angle glaucoma of both eyes, modera te stage 10/01/2016 10/14/2017 Lens replaced by other means - Left Eye 11/30/1908/05/2015 COAG (chronic open-angle glaucoma) - Both Eyes 1 09/05/2013 10/14/2017 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 07/06/2014 08/05/2015 Visual field defect, unspecified - Right Eye 02/201408/05/2015 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 07/06/2014 05/23/2019 documented as of this encounter (statuses as of 01/07/2022) [facility] History of Past illness Narrative* Problem Noted Date Resolved Date Primary open-angle glaucoma, left eye, moderate stage 05/23/2019 04/11/2021 Primary open angle glaucoma of right eye, modera te stage 03/01/2017 11/06/2020 Primary open-angle glaucoma, left eye, mild stag e 03/01/2017 10/14/2017 Primary open angle glaucoma of both eyes, modera te stage 10/01/2016 10/14/2017 Lens replaced by other means - Left Eye 11/30/19 15 08/05/2015 COAG (chronic open-angle glaucoma) - Both Eyes 1 09/05/2013 10/14/2017 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 07/06/2014 08/05/2015 Visual field defect, unspecified - Right Eye 02/201408/05/2015 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 07/06/2014 05/23/2019 documented as of this encounter (statuses as of 01/07/2022) [facility] of Past illness Narrative* Problem Noted Date Resolved Date Primary open-angle glaucoma, left eye, moderate stage 05/23/2019 04/11/2021 Primary open angle glaucoma of right eye, modera te stage 03/01/2017 11/06/2020 Primary open-angle glaucoma, left eye, mild stag e 03/01/2017 10/14/2017 Primary open angle glaucoma of both eyes, modera te stage 10/01/2016 10/14/2017 Lens replaced by other means - Left Eye 11/30/19 15 08/05/2015 COAG (chronic open-angle glaucoma) - Both Eyes 1 09/05/2013 10/14/2017 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 07/06/2014 08/05/2015 Visual field defect, unspecified - Right Eye 02/201408/05/2015 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 07/06/2014 05/23/2019 documented as of this encounter (statuses as of 01/08/2022) [facility] of Past illness Narrative* Problem Noted Date Resolved Date Primary open-angle glaucoma, left eye, moderate stage 05/23/2019 04/11/2021 Primary open angle glaucoma of right eye, modera te stage 03/01/2017 11/06/2020 Primary open-angle glaucoma, left eye, mild stag e 03/01/2017 10/14/2017 Primary open angle glaucoma of both eyes, modera te stage 10/01/2016 10/14/2017 Lens replaced by other means - Left Eye 11/30/19 15 08/05/2015 COAG (chronic open-angle glaucoma) - Both Eyes 1 09/05/2013 10/14/2017 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 07/06/2014 08/05/2015 Visual field defect, unspecified - Right Eye 02/201408/05/2015 Other and combined forms of senile cataract - Avery Eyes 07/06/2014 05/23/2019 documented as of this encounter (statuses as of 01/09/2022) [facility] of Past illness Narrative* Problem Noted Date Resolved Date Primary open-angle glaucoma, left eye, moderate stage 05/23/2019 04/11/2021 Primary open angle glaucoma of right eye, modera te stage 03/01/2017 11/06/2020 Primary open-angle glaucoma, left eye, mild stag e 03/01/2017 10/14/2017 Primary open angle glaucoma of both eyes, modera te stage 10/01/2016 10/14/2017 Lens replaced by other means - Left Eye 11/30/19 15 08/05/2015 COAG (chronic open-angle glaucoma) - Both Eyes 1 09/05/2013 10/14/2017 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 07/06/2014 08/05/2015 Visual field defect, unspecified - Right Eye 02/201408/05/2015 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 07/06/2014 05/23/2019 documented as of this encounter (statuses as of 01/12/2022) [facility] History of Past illness Narrative* Problem Noted Date Resolved Date Primary open-angle glaucoma, left eye, moderate stage 05/23/2019 04/11/2021 Primary open angle glaucoma of right eye, modera te stage 03/01/2017 11/06/2020 Primary open-angle glaucoma, left eye, mild stag e 03/01/2017 10/14/2017 Primary open angle glaucoma of both eyes, modera te stage 10/01/2016 10/14/2017 Lens replaced by other means - Left Eye 11/30/19 15 08/05/2015 COAG (chronic open-angle glaucoma) - Both Eyes 1 09/05/2013 10/14/2017 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 07/06/2014 08/05/2015 Visual field defect, unspecified - Right Eye 02/201408/05/2015 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 07/06/2014 05/23/2019 documented as of this encounter (statuses as of 01/12/2022) [facility] History of Past illness Narrative* Problem Noted Date Resolved Date Primary open-angle glaucoma, left eye, moderate stage 05/23/2019 04/11/2021 Primary open angle glaucoma of right eye, modera te stage 03/01/2017 11/06/2020 Primary open-angle glaucoma, left eye, mild stag e 03/01/2017 10/14/2017 Primary open angle glaucoma of both eyes, modera te stage 10/01/2016 10/14/2017 Lens replaced by other means - Left Eye 11/30/19 15 08/05/2015 COAG (chronic open-angle glaucoma) - Both Eyes 1 09/05/2013 10/14/2017 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 07/06/2014 08/05/2015 Visual field defect, unspecified - Right Eye 02/201408/05/2015 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 07/06/2014 05/23/2019 documented as of this encounter (statuses as of 01/13/2022) [facility] History of Past illness Narrative* Problem Noted Date Resolved Date Primary open-angle glaucoma, left eye, moderate stage 05/23/2019 04/11/2021 Primary open angle glaucoma of right eye, modera te stage 03/01/2017 11/06/2020 Primary open-angle glaucoma, left eye, mild stag e 03/01/2017 10/14/2017 Primary open angle glaucoma of both eyes, modera te stage 10/01/2016 10/14/2017 Lens replaced by other means - Left Eye 11/30/19 15 08/05/2015 COAG (chronic open-angle glaucoma) - Both Eyes 1 09/05/2013 10/14/2017 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 07/06/2014 08/05/2015 Visual field defect, unspecified - Right Eye 02/201408/05/2015 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 07/06/2014 05/23/2019 documented as of this encounter (statuses as of 01/16/2022) [facility] History of Past illness Narrative* Problem Noted Date Resolved Date Primary open-angle glaucoma, left eye, moderate stage 05/23/2019 04/11/2021 Primary open angle glaucoma of right eye, modera te stage 03/01/2017 11/06/2020 Primary open-angle glaucoma, left eye, mild stag e 03/01/2017 10/14/2017 Primary open angle glaucoma of both eyes, modera te stage 10/01/2016 10/14/2017 Lens replaced by other means - Left Eye 11/30/19 15 08/05/2015 COAG (chronic open-angle glaucoma) - Both Eyes 1 09/05/2013 10/14/2017 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 07/06/2014 08/05/2015 Visual field defect, unspecified - Right Eye 02/201408/05/2015 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 07/06/2014 05/23/2019 documented as of this encounter (statuses as of 01/21/2022) [facility] History of Past illness Narrative* Problem Noted Date Resolved Date Primary open-angle glaucoma, left eye, moderate stage 05/23/2019 04/11/2021 Primary open angle glaucoma of right eye, modera te stage 03/01/2017 11/06/2020 Primary open-angle glaucoma, left eye, mild stag e 03/01/2017 10/14/2017 Primary open angle glaucoma of both eyes, modera te stage 10/01/2016 10/14/2017 Lens replaced by other means - Left Eye 11/30/19 15 08/05/2015 COAG (chronic open-angle glaucoma) - Both Eyes 1 09/05/2013 10/14/2017 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 07/06/2014 08/05/2015 Visual field defect, unspecified - Right Eye 02/201408/05/2015 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 07/06/2014 05/23/2019 documented as of this encounter (statuses as of 01/22/2022) [facility] History of Past illness Narrative* Problem Noted Date Resolved Date Primary open-angle glaucoma, left eye, moderate stage 05/23/2019 04/11/2021 Primary open angle glaucoma of right eye, modera te stage 03/01/2017 11/06/2020 Primary open-angle glaucoma, left eye, mild stag e 03/01/2017 10/14/2017 Primary open angle glaucoma of both eyes, modera te stage 10/01/2016 10/14/2017 Lens replaced by other means - Left Eye 11/30/19 15 08/05/2015 COAG (chronic open-angle glaucoma) - Both Eyes 1 09/05/2013 10/14/2017 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 07/06/2014 08/05/2015 Visual field defect, unspecified - Right Eye 02/201408/05/2015 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 07/06/2014 05/23/2019 documented as of this encounter (statuses as of 01/23/2022) [facility] History of Past illness Narrative* Problem Noted Date Resolved Date Primary open-angle glaucoma, left eye, moderate stage 05/23/2019 04/11/2021 Primary open angle glaucoma of right eye, modera te stage 03/01/2017 11/06/2020 Primary open-angle glaucoma, left eye, mild stag e 03/01/2017 10/14/2017 Primary open angle glaucoma of both eyes, modera te stage 10/01/2016 10/14/2017 Lens replaced by other means - Left Eye 11/30/19 15 08/05/2015 COAG (chronic open-angle glaucoma) - Both Eyes 1 09/05/2013 10/14/2017 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 07/06/2014 08/05/2015 Visual field defect, unspecified - Right Eye 02/201408/05/2015 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 07/06/2014 05/23/2019 documented as of this encounter (statuses as of 01/28/2022) [facility] History of Past illness Narrative* Problem Noted Date Resolved Date Primary open-angle glaucoma, left eye, moderate stage 05/23/2019 04/11/2021 Primary open angle glaucoma of right eye, modera te stage 03/01/2017 11/06/2020 Primary open-angle glaucoma, left eye, mild stag e 03/01/2017 10/14/2017 Primary open angle glaucoma of both eyes, modera te stage 10/01/2016 10/14/2017 Lens replaced by other means - Left Eye 11/30/1908/05/2015 COAG (chronic open-angle glaucoma) - Both Eyes 1 09/05/2013 10/14/2017 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 07/06/2014 08/05/2015 Visual field defect, unspecified - Right Eye 02/201408/05/2015 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 07/06/2014 05/23/2019 documented as of this encounter (statuses as of 01/30/2022) [facility] History of Past illness Narrative* Problem Noted Date Resolved Date Primary open-angle glaucoma, left eye, moderate stage 05/23/2019 04/11/2021 Primary open angle glaucoma of right eye, modera te stage 03/01/2017 11/06/2020 Primary open-angle glaucoma, left eye, mild stag e 03/01/2017 10/14/2017 Primary open angle glaucoma of both eyes, modera te stage 10/01/2016 10/14/2017 Lens replaced by other means - Left Eye 11/30/19 15 08/05/2015 COAG (chronic open-angle glaucoma) - Both Eyes 1 09/05/2013 10/14/2017 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 07/06/2014 08/05/2015 Visual field defect, unspecified - Right Eye 02/201408/05/2015 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 07/06/2014 05/23/2019 documented as of this encounter (statuses as of 02/11/2022) [facility] History of Past illness Narrative* Problem Noted Date Resolved Date Primary open-angle glaucoma, left eye, moderate stage 05/23/2019 04/11/2021 Primary open angle glaucoma of right eye, modera te stage 03/01/2017 11/06/2020 Primary open-angle glaucoma, left eye, mild stag e 03/01/2017 10/14/2017 Primary open angle glaucoma of both eyes, modera te stage 10/01/2016 10/14/2017 Lens replaced by other means - Left Eye 11/30/1908/05/2015 COAG (chronic open-angle glaucoma) - Both Eyes 1 09/05/2013 10/14/2017 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 07/06/2014 08/05/2015 Visual field defect, unspecified - Right Eye 02/201408/05/2015 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 07/06/2014 05/23/2019 documented as of this encounter (statuses as of 02/12/2022) [facility] History of Past illness Narrative* Problem Noted Date Resolved Date Primary open-angle glaucoma, left eye, moderate stage 05/23/2019 04/11/2021 Primary open angle glaucoma of right eye, modera te stage 03/01/2017 11/06/2020 Primary open-angle glaucoma, left eye, mild stag e 03/01/2017 10/14/2017 Primary open angle glaucoma of both eyes, modera te stage 10/01/2016 10/14/2017 Lens replaced by other means - Left Eye 11/30/1908/05/2015 COAG (chronic open-angle glaucoma) - Both Eyes 1 09/05/2013 10/14/2017 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 07/06/2014 08/05/2015 Visual field defect, unspecified - Right Eye 02/201408/05/2015 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 07/06/2014 05/23/2019 documented as of this encounter (statuses as of 02/13/2022) [facility] History of Past illness Narrative* Problem Noted Date Resolved Date Primary open-angle glaucoma, left eye, moderate stage 05/23/2019 04/11/2021 Primary open angle glaucoma of right eye, modera te stage 03/01/2017 11/06/2020 Primary open-angle glaucoma, left eye, mild stag e 03/01/2017 10/14/2017 Primary open angle glaucoma of both eyes, modera te stage 10/01/2016 10/14/2017 Lens replaced by other means - Left Eye 11/30/1908/05/2015 COAG (chronic open-angle glaucoma) - Both Eyes 1 09/05/2013 10/14/2017 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 07/06/2014 08/05/2015 Visual field defect, unspecified - Right Eye 02/201408/05/2015 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 07/06/2014 05/23/2019 documented as of this encounter (statuses as of 02/17/2022) [facility] History of Past illness Narrative* Problem Noted Date Resolved Date Primary open-angle glaucoma, left eye, moderate stage 05/23/2019 04/11/2021 Primary open angle glaucoma of right eye, modera te stage 03/01/2017 11/06/2020 Primary open-angle glaucoma, left eye, mild stag e 03/01/2017 10/14/2017 Primary open angle glaucoma of both eyes, modera te stage 10/01/2016 10/14/2017 Lens replaced by other means - Left Eye 11/30/19 15 08/05/2015 COAG (chronic open-angle glaucoma) - Both Eyes 1 09/05/2013 10/14/2017 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 07/06/2014 08/05/2015 Visual field defect, unspecified - Right Eye 02/201408/05/2015 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 07/06/2014 05/23/2019 documented as of this encounter (statuses as of 02/17/2022) [facility] History of Past illness Narrative* Problem Noted Date Resolved Date Primary open-angle glaucoma, left eye, moderate stage 05/23/2019 04/11/2021 Primary open angle glaucoma of right eye, modera te stage 03/01/2017 11/06/2020 Primary open-angle glaucoma, left eye, mild stag e 03/01/2017 10/14/2017 Primary open angle glaucoma of both eyes, modera te stage 10/01/2016 10/14/2017 Lens replaced by other means - Left Eye 11/30/19 15 08/05/2015 COAG (chronic open-angle glaucoma) - Both Eyes 1 09/05/2013 10/14/2017 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 07/06/2014 08/05/2015 Visual field defect, unspecified - Right Eye 02/201408/05/2015 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 07/06/2014 05/23/2019 documented as of this encounter (statuses as of 02/20/2022) [facility] History of Past illness Narrative* Problem Noted Date Resolved Date Primary open-angle glaucoma, left eye, moderate stage 05/23/2019 04/11/2021 Primary open angle glaucoma of right eye, modera te stage 03/01/2017 11/06/2020 Primary open-angle glaucoma, left eye, mild stag e 03/01/2017 10/14/2017 Primary open angle glaucoma of both eyes, modera te stage 10/01/2016 10/14/2017 Lens replaced by other means - Left Eye 11/30/19 15 08/05/2015 COAG (chronic open-angle glaucoma) - Both Eyes 1 09/05/2013 10/14/2017 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 07/06/2014 08/05/2015 Visual field defect, unspecified - Right Eye 02/201408/05/2015 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 07/06/2014 05/23/2019 documented as of this encounter (statuses as of 02/21/2022) [facility] Past illness Narrative* Problem Noted Date Resolved Date Primary open-angle glaucoma, left eye, moderate stage 05/23/2019 04/11/2021 Primary open angle glaucoma of right eye, modera te stage 03/01/2017 11/06/2020 Primary open-angle glaucoma, left eye, mild stag e 03/01/2017 10/14/2017 Primary open angle glaucoma of both eyes, modera te stage 10/01/2016 10/14/2017 Lens replaced by other means - Left Eye 11/30/19 15 08/05/2015 COAG (chronic open-angle glaucoma) - Both Eyes 1 09/05/2013 10/14/2017 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 07/06/2014 08/05/2015 Visual field defect, unspecified - Right Eye 02/201408/05/2015 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 07/06/2014 05/23/2019 documented as of this encounter (statuses as of 02/24/2022) [facility] of Past illness Narrative* Problem Noted Date Resolved Date Primary open-angle glaucoma, left eye, moderate stage 05/23/2019 04/11/2021 Primary open angle glaucoma of right eye, modera te stage 03/01/2017 11/06/2020 Primary open-angle glaucoma, left eye, mild stag e 03/01/2017 10/14/2017 Primary open angle glaucoma of both eyes, modera te stage 10/01/2016 10/14/2017 Lens replaced by other means - Left Eye 11/30/19 15 08/05/2015 COAG (chronic open-angle glaucoma) - Both Eyes 1 09/05/2013 10/14/2017 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 07/06/2014 08/05/2015 Visual field defect, unspecified - Right Eye 02/201408/05/2015 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 07/06/2014 05/23/2019 documented as of this encounter (statuses as of 03/04/2022) [facility] History of Past illness Narrative* Problem Noted Date Resolved Date Primary open-angle glaucoma, left eye, moderate stage 05/23/2019 04/11/2021 Primary open angle glaucoma of right eye, modera te stage 03/01/2017 11/06/2020 Primary open-angle glaucoma, left eye, mild stag e 03/01/2017 10/14/2017 Primary open angle glaucoma of both eyes, modera te stage 10/01/2016 10/14/2017 Lens replaced by other means - Left Eye 11/30/1908/05/2015 COAG (chronic open-angle glaucoma) - Both Eyes 1 09/05/2013 10/14/2017 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 07/06/2014 08/05/2015 Visual field defect, unspecified - Right Eye 02/201408/05/2015 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 07/06/2014 05/23/2019 documented as of this encounter (statuses as of 03/16/2022) [facility] of Past illness Narrative* Problem Noted Date Resolved Date Primary open-angle glaucoma, left eye, moderate stage 05/23/2019 04/11/2021 Primary open angle glaucoma of right eye, modera te stage 03/01/2017 11/06/2020 Primary open-angle glaucoma, left eye, mild stag e 03/01/2017 10/14/2017 Primary open angle glaucoma of both eyes, modera te stage 10/01/2016 10/14/2017 Lens replaced by other means - Left Eye 11/30/19 15 08/05/2015 COAG (chronic open-angle glaucoma) - Both Eyes 1 09/05/2013 10/14/2017 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 07/06/2014 08/05/2015 Visual field defect, unspecified - Right Eye 02/201408/05/2015 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 07/06/2014 05/23/2019 documented as of this encounter (statuses as of 03/18/2022) [facility] History of Past illness Narrative* Problem Noted Date Resolved Date Primary open-angle glaucoma, left eye, moderate stage 05/23/2019 04/11/2021 Primary open angle glaucoma of right eye, modera te stage 03/01/2017 11/06/2020 Primary open-angle glaucoma, left eye, mild stag e 03/01/2017 10/14/2017 Primary open angle glaucoma of both eyes, modera te stage 10/01/2016 10/14/2017 Lens replaced by other means - Left Eye 11/30/19 15 08/05/2015 COAG (chronic open-angle glaucoma) - Both Eyes 1 09/05/2013 10/14/2017 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 07/06/2014 08/05/2015 Visual field defect, unspecified - Right Eye 02/201408/05/2015 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 07/06/2014 05/23/2019 documented as of this encounter (statuses as of 03/20/2022) [facility] Past illness Narrative* Problem Noted Date Resolved Date Primary open-angle glaucoma, left eye, moderate stage 05/23/2019 04/11/2021 Primary open angle glaucoma of right eye, modera te stage 03/01/2017 11/06/2020 Primary open-angle glaucoma, left eye, mild stag e 03/01/2017 10/14/2017 Primary open angle glaucoma of both eyes, modera te stage 10/01/2016 10/14/2017 Lens replaced by other means - Left Eye 11/30/19 15 08/05/2015 COAG (chronic open-angle glaucoma) - Both Eyes 1 09/05/2013 10/14/2017 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 07/06/2014 08/05/2015 Visual field defect, unspecified - Right Eye 02/201408/05/2015 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 07/06/2014 05/23/2019 documented as of this encounter (statuses as of 03/23/2022) [facility] Past illness Narrative* Problem Noted Date Resolved Date Primary open-angle glaucoma, left eye, moderate stage 05/23/2019 04/11/2021 Primary open angle glaucoma of right eye, modera te stage 03/01/2017 11/06/2020 Primary open-angle glaucoma, left eye, mild stag e 03/01/2017 10/14/2017 Primary open angle glaucoma of both eyes, modera te stage 10/01/2016 10/14/2017 Lens replaced by other means - Left Eye 11/30/19 15 08/05/2015 COAG (chronic open-angle glaucoma) - Both Eyes 1 09/05/2013 10/14/2017 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 07/06/2014 08/05/2015 Visual field defect, unspecified - Right Eye 02/201408/05/2015 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 07/06/2014 05/23/2019 documented as of this encounter (statuses as of 03/24/2022) [facility] Past [facility] Narrative* Problem Noted Date Resolved Date Primary open-angle glaucoma, left eye, moderate stage 05/23/2019 04/11/2021 Primary open angle glaucoma of right eye, modera te stage 03/01/2017 11/06/2020 Primary open-angle glaucoma, left eye, mild stag e 03/01/2017 10/14/2017 Primary open angle glaucoma of both eyes, modera te stage 10/01/2016 10/14/2017 Lens replaced by other means - Left Eye 11/30/19 15 08/05/2015 COAG (chronic open-angle glaucoma) - Both Eyes 1 09/05/2013 10/14/2017 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 07/06/2014 08/05/2015 Visual field defect, unspecified - Right Eye 02/201408/05/2015 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 07/06/2014 05/23/2019 documented as of this encounter (statuses as of 03/24/2022) [facility] History of Past illness Narrative* Problem Noted Date Resolved Date Primary open-angle glaucoma, left eye, moderate stage 05/23/2019 04/11/2021 Primary open angle glaucoma of right eye, modera te stage 03/01/2017 11/06/2020 Primary open-angle glaucoma, left eye, mild stag e 03/01/2017 10/14/2017 Primary open angle glaucoma of both eyes, modera te stage 10/01/2016 10/14/2017 Lens replaced by other means - Left Eye 11/30/19 15 08/05/2015 COAG (chronic open-angle glaucoma) - Both Eyes 1 09/05/2013 10/14/2017 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 07/06/2014 08/05/2015 Visual field defect, unspecified - Right Eye 02/201408/05/2015 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 07/06/2014 05/23/2019 documented as of this encounter (statuses as of 03/27/2022) [facility] History of Past illness Narrative* Problem Noted Date Resolved Date Primary open-angle glaucoma, left eye, moderate stage 05/23/2019 04/11/2021 Primary open angle glaucoma of right eye, modera te stage 03/01/2017 11/06/2020 Primary open-angle glaucoma, left eye, mild stag e 03/01/2017 10/14/2017 Primary open angle glaucoma of both eyes, modera te stage 10/01/2016 10/14/2017 Lens replaced by other means - Left Eye 11/30/1908/05/2015 COAG (chronic open-angle glaucoma) - Both Eyes 1 09/05/2013 10/14/2017 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 07/06/2014 08/05/2015 Visual field defect, unspecified - Right Eye 02/201408/05/2015 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 07/06/2014 05/23/2019 documented as of this encounter (statuses as of 04/08/2022) [facility] History of Past illness Narrative* Problem Noted Date Resolved Date Primary open-angle glaucoma, left eye, moderate stage 05/23/2019 04/11/2021 Primary open angle glaucoma of right eye, modera te stage 03/01/2017 11/06/2020 Primary open-angle glaucoma, left eye, mild stag e 03/01/2017 10/14/2017 Primary open angle glaucoma of both eyes, modera te stage 10/01/2016 10/14/2017 Lens replaced by other means - Left Eye 11/30/1908/05/2015 COAG (chronic open-angle glaucoma) - Both Eyes 1 09/05/2013 10/14/2017 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 07/06/2014 08/05/2015 Visual field defect, unspecified - Right Eye 02/201408/05/2015 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 07/06/2014 05/23/2019 documented as of this encounter (statuses as of 04/14/2022) [facility] of Past illness Narrative* Problem Noted Date Resolved Date Primary open-angle glaucoma, left eye, moderate stage 05/23/2019 04/11/2021 Primary open angle glaucoma of right eye, modera te stage 03/01/2017 11/06/2020 Primary open-angle glaucoma, left eye, mild stag e 03/01/2017 10/14/2017 Primary open angle glaucoma of both eyes, modera te stage 10/01/2016 10/14/2017 Lens replaced by other means - Left Eye 11/30/1908/05/2015 COAG (chronic open-angle glaucoma) - Both Eyes 1 09/05/2013 10/14/2017 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 07/06/2014 08/05/2015 Visual field defect, unspecified - Right Eye 02/201408/05/2015 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 07/06/2014 05/23/2019 documented as of this encounter (statuses as of 05/01/2022) [facility] of Past illness Narrative* Problem Noted Date Resolved Date Primary open-angle glaucoma, left eye, moderate stage 05/23/2019 04/11/2021 Primary open angle glaucoma of right eye, modera te stage 03/01/2017 11/06/2020 Primary open-angle glaucoma, left eye, mild stag e 03/01/2017 10/14/2017 Primary open angle glaucoma of both eyes, modera te stage 10/01/2016 10/14/2017 Lens replaced by other means - Left Eye 11/30/1908/05/2015 COAG (chronic open-angle glaucoma) - Both Eyes 1 09/05/2013 10/14/2017 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 07/06/2014 08/05/2015 Visual field defect, unspecified - Right Eye 02/201408/05/2015 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 07/06/2014 05/23/2019 documented as of this encounter (statuses as of 05/04/2022) [facility] of Past illness Narrative* Problem Noted Date Resolved Date Primary open-angle glaucoma, left eye, moderate stage 05/23/2019 04/11/2021 Primary open angle glaucoma of right eye, modera te stage 03/01/2017 11/06/2020 Primary open-angle glaucoma, left eye, mild stag e 03/01/2017 10/14/2017 Primary open angle glaucoma of both eyes, modera te stage 10/01/2016 10/14/2017 Lens replaced by other means - Left Eye 11/30/1908/05/2015 COAG (chronic open-angle glaucoma) - Both Eyes 1 09/05/2013 10/14/2017 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 07/06/2014 08/05/2015 Visual field defect, unspecified - Right Eye 02/201408/05/2015 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 07/06/2014 05/23/2019 documented as of this encounter (statuses as of 05/04/2022) [facility] History of Past illness Narrative* Problem Noted Date Resolved Date Primary open-angle glaucoma, left eye, moderate stage 05/23/2019 04/11/2021 Primary open angle glaucoma of right eye, modera te stage 03/01/2017 11/06/2020 Primary open-angle glaucoma, left eye, mild stag e 03/01/2017 10/14/2017 Primary open angle glaucoma of both eyes, modera te stage 10/01/2016 10/14/2017 Lens replaced by other means - Left Eye 11/30/19 15 08/05/2015 COAG (chronic open-angle glaucoma) - Both Eyes 1 09/05/2013 10/14/2017 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 07/06/2014 08/05/2015 Visual field defect, unspecified - Right Eye 02/201408/05/2015 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 07/06/2014 05/23/2019 documented as of this encounter (statuses as of 05/18/2022) [facility] History of Past illness Narrative* Problem Noted Date Resolved Date Primary open-angle glaucoma, left eye, moderate stage 05/23/2019 04/11/2021 Primary open angle glaucoma of right eye, modera te stage 03/01/2017 11/06/2020 Primary open-angle glaucoma, left eye, mild stag e 03/01/2017 10/14/2017 Primary open angle glaucoma of both eyes, modera te stage 10/01/2016 10/14/2017 Lens replaced by other means - Left Eye 11/30/19 15 08/05/2015 COAG (chronic open-angle glaucoma) - Both Eyes 1 09/05/2013 10/14/2017 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 07/06/2014 08/05/2015 Visual field defect, unspecified - Right Eye 02/201408/05/2015 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 07/06/2014 05/23/2019 documented as of this encounter (statuses as of 05/30/2022) [facility] History of Past illness Narrative* Problem Noted Date Resolved Date Primary open-angle glaucoma, left eye, moderate stage 05/23/2019 04/11/2021 Primary open angle glaucoma of right eye, modera te stage 03/01/2017 11/06/2020 Primary open-angle glaucoma, left eye, mild stag e 03/01/2017 10/14/2017 Primary open angle glaucoma of both eyes, modera te stage 10/01/2016 10/14/2017 Lens replaced by other means - Left Eye 11/30/19 15 08/05/2015 COAG (chronic open-angle glaucoma) - Both Eyes 1 09/05/2013 10/14/2017 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 07/06/2014 08/05/2015 Visual field defect, unspecified - Right Eye 02/201408/05/2015 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 07/06/2014 05/23/2019 documented as of this encounter (statuses as of 06/09/2022) [facility] History of Past illness Narrative* Problem Noted Date Resolved Date Primary open-angle glaucoma, left eye, moderate stage 05/23/2019 04/11/2021 Primary open angle glaucoma of right eye, modera te stage 03/01/2017 11/06/2020 Primary open-angle glaucoma, left eye, mild stag e 03/01/2017 10/14/2017 Primary open angle glaucoma of both eyes, modera te stage 10/01/2016 10/14/2017 Lens replaced by other means - Left Eye 11/30/19 15 08/05/2015 COAG (chronic open-angle glaucoma) - Both Eyes 1 09/05/2013 10/14/2017 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 07/06/2014 08/05/2015 Visual field defect, unspecified - Right Eye 02/201408/05/2015 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 07/06/2014 05/23/2019 documented as of this encounter (statuses as of 06/13/2022) [facility] History of Past illness Narrative* Problem Noted Date Resolved Date Primary open-angle glaucoma, left eye, moderate stage 05/23/2019 04/11/2021 Primary open angle glaucoma of right eye, modera te stage 03/01/2017 11/06/2020 Primary open-angle glaucoma, left eye, mild stag e 03/01/2017 10/14/2017 Primary open angle glaucoma of both eyes, modera te stage 10/01/2016 10/14/2017 Lens replaced by other means - Left Eye 11/30/19 15 08/05/2015 COAG (chronic open-angle glaucoma) - Both Eyes 1 09/05/2013 10/14/2017 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 07/06/2014 08/05/2015 Visual field defect, unspecified - Right Eye 02/201408/05/2015 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 07/06/2014 05/23/2019 documented as of this encounter (statuses as of 06/16/2022) [facility] History of Past illness Narrative* Problem Noted Date Resolved Date Primary open-angle glaucoma, left eye, moderate stage 05/23/2019 04/11/2021 Primary open angle glaucoma of right eye, modera te stage 03/01/2017 11/06/2020 Primary open-angle glaucoma, left eye, mild stag e 03/01/2017 10/14/2017 Primary open angle glaucoma of both eyes, modera te stage 10/01/2016 10/14/2017 Lens replaced by other means - Left Eye 11/30/19 15 08/05/2015 COAG (chronic open-angle glaucoma) - Both Eyes 1 09/05/2013 10/14/2017 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 07/06/2014 08/05/2015 Visual field defect, unspecified - Right Eye 02/201408/05/2015 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 07/06/2014 05/23/2019 documented as of this encounter (statuses as of 06/21/2022) [facility] History of Past illness Narrative* Problem Noted Date Resolved Date Primary open-angle glaucoma, left eye, moderate stage 05/23/2019 04/11/2021 Primary open angle glaucoma of right eye, modera te stage 03/01/2017 11/06/2020 Primary open-angle glaucoma, left eye, mild stag e 03/01/2017 10/14/2017 Primary open angle glaucoma of both eyes, modera te stage 10/01/2016 10/14/2017 Lens replaced by other means - Left Eye 11/30/19 15 08/05/2015 COAG (chronic open-angle glaucoma) - Both Eyes 1 09/05/2013 10/14/2017 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 07/06/2014 08/05/2015 Visual field defect, unspecified - Right Eye 02/201408/05/2015 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 07/06/2014 05/23/2019 documented as of this encounter (statuses as of 06/22/2022) [facility] History of Past illness Narrative* Problem Noted Date Resolved Date Primary open-angle glaucoma, left eye, moderate stage 05/23/2019 04/11/2021 Primary open angle glaucoma of right eye, modera te stage 03/01/2017 11/06/2020 Primary open-angle glaucoma, left eye, mild stag e 03/01/2017 10/14/2017 Primary open angle glaucoma of both eyes, modera te stage 10/01/2016 10/14/2017 Lens replaced by other means - Left Eye 11/30/19 15 08/05/2015 COAG (chronic open-angle glaucoma) - Both Eyes 1 09/05/2013 10/14/2017 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 07/06/2014 08/05/2015 Visual field defect, unspecified - Right Eye 02/201408/05/2015 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 07/06/2014 05/23/2019 documented as of this encounter (statuses as of 07/31/2022) [facility] History of Past illness Narrative* Problem Noted Date Resolved Date Primary open-angle glaucoma, left eye, moderate stage 05/23/2019 04/11/2021 Primary open angle glaucoma of right eye, modera te stage 03/01/2017 11/06/2020 Primary open-angle glaucoma, left eye, mild stag e 03/01/2017 10/14/2017 Primary open angle glaucoma of both eyes, modera te stage 10/01/2016 10/14/2017 Lens replaced by other means - Left Eye 11/30/19 15 08/05/2015 COAG (chronic open-angle glaucoma) - Both Eyes 1 09/05/2013 10/14/2017 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 07/06/2014 08/05/2015 Visual field defect, unspecified - Right Eye 02/201408/05/2015 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 07/06/2014 05/23/2019 documented as of this encounter (statuses as of 08/03/2022) [facility] History of Past illness Narrative* Problem Noted Date Resolved Date Primary open-angle glaucoma, left eye, moderate stage 05/23/2019 04/11/2021 Primary open angle glaucoma of right eye, modera te stage 03/01/2017 11/06/2020 Primary open-angle glaucoma, left eye, mild stag e 03/01/2017 10/14/2017 Primary open angle glaucoma of both eyes, modera te stage 10/01/2016 10/14/2017 Lens replaced by other means - Left Eye 11/30/19 15 08/05/2015 COAG (chronic open-angle glaucoma) - Both Eyes 1 09/05/2013 10/14/2017 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 07/06/2014 08/05/2015 Visual field defect, unspecified - Right Eye 02/201408/05/2015 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 07/06/2014 05/23/2019 documented as of this encounter (statuses as of 08/14/2022) [facility] History of Past illness Narrative* Problem Noted Date Resolved Date Primary open-angle glaucoma, left eye, moderate stage 05/23/2019 04/11/2021 Primary open angle glaucoma of right eye, modera te stage 03/01/2017 11/06/2020 Primary open-angle glaucoma, left eye, mild stag e 03/01/2017 10/14/2017 Primary open angle glaucoma of both eyes, modera te stage 10/01/2016 10/14/2017 Lens replaced by other means - Left Eye 11/30/19 15 08/05/2015 COAG (chronic open-angle glaucoma) - Both Eyes 1 09/05/2013 10/14/2017 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 07/06/2014 08/05/2015 Visual field defect, unspecified - Right Eye 02/201408/05/2015 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 07/06/2014 05/23/2019 documented as of this encounter (statuses as of 08/15/2022) [facility] History of Past illness Narrative* Problem Noted Date Resolved Date Primary open-angle glaucoma, left eye, moderate stage 05/23/2019 04/11/2021 Primary open angle glaucoma of right eye, modera te stage 03/01/2017 11/06/2020 Primary open-angle glaucoma, left eye, mild stag e 03/01/2017 10/14/2017 Primary open angle glaucoma of both eyes, modera te stage 10/01/2016 10/14/2017 Lens replaced by other means - Left Eye 11/30/19 15 08/05/2015 COAG (chronic open-angle glaucoma) - Both Eyes 1 09/05/2013 10/14/2017 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 07/06/2014 08/05/2015 Visual field defect, unspecified - Right Eye 02/201408/05/2015 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 07/06/2014 05/23/2019 documented as of this encounter (statuses as of 09/02/2022) [facility] History of Past illness Narrative* Problem Noted Date Resolved Date Primary open-angle glaucoma, left eye, moderate stage 05/23/2019 04/11/2021 Primary open angle glaucoma of right eye, modera te stage 03/01/2017 11/06/2020 Primary open-angle glaucoma, left eye, mild stag e 03/01/2017 10/14/2017 Primary open angle glaucoma of both eyes, modera te stage 10/01/2016 10/14/2017 Lens replaced by other means - Left Eye 11/30/1908/05/2015 COAG (chronic open-angle glaucoma) - Both Eyes 1 09/05/2013 10/14/2017 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 07/06/2014 08/05/2015 Visual field defect, unspecified - Right Eye 02/201408/05/2015 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 07/06/2014 05/23/2019 documented as of this encounter (statuses as of 09/02/2022) [facility] History of Past illness Narrative* Problem Noted Date Resolved Date Primary open-angle glaucoma, left eye, moderate stage 05/23/2019 04/11/2021 Primary open angle glaucoma of right eye, modera te stage 03/01/2017 11/06/2020 Primary open-angle glaucoma, left eye, mild stag e 03/01/2017 10/14/2017 Primary open angle glaucoma of both eyes, modera te stage 10/01/2016 10/14/2017 Lens replaced by other means - Left Eye 11/30/1908/05/2015 COAG (chronic open-angle glaucoma) - Both Eyes 1 09/05/2013 10/14/2017 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 07/06/2014 08/05/2015 Visual field defect, unspecified - Right Eye 02/201408/05/2015 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 07/06/2014 05/23/2019 documented as of this encounter (statuses as of 09/02/2022) [facility] History of Past illness Narrative* Problem Noted Date Resolved Date Primary open-angle glaucoma, left eye, moderate stage 05/23/2019 04/11/2021 Primary open angle glaucoma of right eye, modera te stage 03/01/2017 11/06/2020 Primary open-angle glaucoma, left eye, mild stag e 03/01/2017 10/14/2017 Primary open angle glaucoma of both eyes, modera te stage 10/01/2016 10/14/2017 Lens replaced by other means - Left Eye 11/30/19 15 08/05/2015 COAG (chronic open-angle glaucoma) - Both Eyes 1 09/05/2013 10/14/2017 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 07/06/2014 08/05/2015 Visual field defect, unspecified - Right Eye 02/201408/05/2015 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 07/06/2014 05/23/2019 documented as of this encounter (statuses as of 09/23/2022) [facility] of Past illness Narrative* Problem Noted Date Resolved Date Primary open-angle glaucoma, left eye, moderate stage 05/23/2019 04/11/2021 Primary open angle glaucoma of right eye, modera te stage 03/01/2017 11/06/2020 Primary open-angle glaucoma, left eye, mild stag e 03/01/2017 10/14/2017 Primary open angle glaucoma of both eyes, modera te stage 10/01/2016 10/14/2017 Lens replaced by other means - Left Eye 11/30/19 15 08/05/2015 COAG (chronic open-angle glaucoma) - Both Eyes 1 09/05/2013 10/14/2017 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 07/06/2014 08/05/2015 Visual field defect, unspecified - Right Eye 02/201408/05/2015 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 07/06/2014 05/23/2019 documented as of this encounter (statuses as of 11/04/2022) [facility] History of Past illness Narrative* Problem Noted Date Resolved Date Primary open-angle glaucoma, left eye, moderate stage 05/23/2019 04/11/2021 Primary open angle glaucoma of right eye, modera te stage 03/01/2017 11/06/2020 Primary open-angle glaucoma, left eye, mild stag e 03/01/2017 10/14/2017 Primary open angle glaucoma of both eyes, modera te stage 10/01/2016 10/14/2017 Lens replaced by other means - Left Eye 11/30/19 15 08/05/2015 COAG (chronic open-angle glaucoma) - Both Eyes 1 09/05/2013 10/14/2017 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 07/06/2014 08/05/2015 Visual field defect, unspecified - Right Eye 02/201408/05/2015 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 07/06/2014 05/23/2019 documented as of this encounter (statuses as of 11/06/2022) [facility] History of Past illness Narrative* Problem Noted Date Resolved Date Primary open-angle glaucoma, left eye, moderate stage 05/23/2019 04/11/2021 Primary open angle glaucoma of right eye, modera te stage 03/01/2017 11/06/2020 Primary open-angle glaucoma, left eye, mild stag e 03/01/2017 10/14/2017 Primary open angle glaucoma of both eyes, modera te stage 10/01/2016 10/14/2017 Lens replaced by other means - Left Eye 11/30/19 15 08/05/2015 COAG (chronic open-angle glaucoma) - Both Eyes 1 09/05/2013 10/14/2017 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 07/06/2014 08/05/2015 Visual field defect, unspecified - Right Eye 02/201408/05/2015 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 07/06/2014 05/23/2019 documented as of this encounter (statuses as of 11/29/2022) [address]-2019 History of Past illness Narrative* Problem Noted Date Resolved Date Primary open-angle glaucoma, left eye, moderate stage 05/23/2019 04/11/2021 Primary open angle glaucoma of right eye, modera te stage 03/01/2017 11/06/2020 Primary open-angle glaucoma, left eye, mild stag e 03/01/2017 10/14/2017 Primary open angle glaucoma of both eyes, modera te stage 10/01/2016 10/14/2017 Lens replaced by other means - Left Eye 11/30/19 15 08/05/2015 COAG (chronic open-angle glaucoma) - Both Eyes 1 09/05/2013 10/14/2017 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 07/06/2014 08/05/2015 Visual field defect, unspecified - Right Eye 02/201408/05/2015 Other and combined forms of senile cataract - Avery Eyes 07/06/2014 05/23/2019 documented as of this encounter (statuses as of 11/30/2022) [facility] of Past illness Narrative* Problem Noted Date Resolved Date Primary open-angle glaucoma, left eye, moderate stage 05/23/2019 04/11/2021 Primary open angle glaucoma of right eye, modera te stage 03/01/2017 11/06/2020 Primary open-angle glaucoma, left eye, mild stag e 03/01/2017 10/14/2017 Primary open angle glaucoma of both eyes, modera te stage 10/01/2016 10/14/2017 Lens replaced by other means - Left Eye 11/30/19 15 08/05/2015 COAG (chronic open-angle glaucoma) - Both Eyes 1 09/05/2013 10/14/2017 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 07/06/2014 08/05/2015 Visual field defect, unspecified - Right Eye 02/201408/05/2015 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 07/06/2014 05/23/2019 documented as of this encounter (statuses as of 11/30/2022) [facility] History of Past illness Narrative* Problem Noted Date Resolved Date Primary open-angle glaucoma, left eye, moderate stage 05/23/2019 04/11/2021 Primary open angle glaucoma of right eye, modera te stage 03/01/2017 11/06/2020 Primary open-angle glaucoma, left eye, mild stag e 03/01/2017 10/14/2017 Primary open angle glaucoma of both eyes, modera te stage 10/01/2016 10/14/2017 Lens replaced by other means - Left Eye 11/30/19 15 08/05/2015 COAG (chronic open-angle glaucoma) - Both Eyes 1 09/05/2013 10/14/2017 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 07/06/2014 08/05/2015 Visual field defect, unspecified - Right Eye 02/201408/05/2015 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 07/06/2014 05/23/2019 documented as of this encounter (statuses as of 12/07/2022) [facility] of Past illness Narrative* Problem Noted Date Resolved Date Primary open-angle glaucoma, left eye, moderate stage 05/23/2019 04/11/2021 Primary open angle glaucoma of right eye, modera te stage 03/01/2017 11/06/2020 Primary open-angle glaucoma, left eye, mild stag e 03/01/2017 10/14/2017 Primary open angle glaucoma of both eyes, modera te stage 10/01/2016 10/14/2017 Lens replaced by other means - Left Eye 11/30/19 15 08/05/2015 COAG (chronic open-angle glaucoma) - Both Eyes 1 09/05/2013 10/14/2017 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 07/06/2014 08/05/2015 Visual field defect, unspecified - Right Eye 02/201408/05/2015 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 07/06/2014 05/23/2019 documented as of this encounter (statuses as of 12/14/2022) [facility] of Past illness Narrative* Problem Noted Date Resolved Date Primary open-angle glaucoma, left eye, moderate stage 05/23/2019 04/11/2021 Primary open angle glaucoma of right eye, modera te stage 03/01/2017 11/06/2020 Primary open-angle glaucoma, left eye, mild stag e 03/01/2017 10/14/2017 Primary open angle glaucoma of both eyes, modera te stage 10/01/2016 10/14/2017 Lens replaced by other means - Left Eye 11/30/19 15 08/05/2015 COAG (chronic open-angle glaucoma) - Both Eyes 1 09/05/2013 10/14/2017 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 07/06/2014 08/05/2015 Visual field defect, unspecified - Right Eye 02/201408/05/2015 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 07/06/2014 05/23/2019 documented as of this encounter (statuses as of 12/24/2022) [facility] History of Past illness Narrative* Problem Noted Date Resolved Date Primary open-angle glaucoma, left eye, moderate stage 05/23/2019 04/11/2021 Primary open angle glaucoma of right eye, modera te stage 03/01/2017 11/06/2020 Primary open-angle glaucoma, left eye, mild stag e 03/01/2017 10/14/2017 Primary open angle glaucoma of both eyes, modera te stage 10/01/2016 10/14/2017 Lens replaced by other means - Left Eye 11/30/19 15 08/05/2015 COAG (chronic open-angle glaucoma) - Both Eyes 1 09/05/2013 10/14/2017 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 07/06/2014 08/05/2015 Visual field defect, unspecified - Right Eye 02/201408/05/2015 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 07/06/2014 05/23/2019 documented as of this encounter (statuses as of 12/24/2022) [facility] History of Past illness Narrative* Problem Noted Date Resolved Date Primary open-angle glaucoma, left eye, moderate stage 05/23/2019 04/11/2021 Primary open angle glaucoma of right eye, modera te stage 03/01/2017 11/06/2020 Primary open-angle glaucoma, left eye, mild stag e 03/01/2017 10/14/2017 Primary open angle glaucoma of both eyes, modera te stage 10/01/2016 10/14/2017 Lens replaced by other means - Left Eye 11/30/19 15 08/05/2015 COAG (chronic open-angle glaucoma) - Both Eyes 1 09/05/2013 10/14/2017 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 07/06/2014 08/05/2015 Visual field defect, unspecified - Right Eye 02/201408/05/2015 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 07/06/2014 05/23/2019 documented as of this encounter (statuses as of 02/17/2023) [facility] History of Past illness Narrative* Problem Noted Date Resolved Date Primary open-angle glaucoma, left eye, moderate stage 05/23/2019 04/11/2021 Primary open angle glaucoma of right eye, modera te stage 03/01/2017 11/06/2020 Primary open-angle glaucoma, left eye, mild stag e 03/01/2017 10/14/2017 Primary open angle glaucoma of both eyes, modera te stage 10/01/2016 10/14/2017 Lens replaced by other means - Left Eye 11/30/19 15 08/05/2015 COAG (chronic open-angle glaucoma) - Both Eyes 1 09/05/2013 10/14/2017 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 07/06/2014 08/05/2015 Visual field defect, unspecified - Right Eye 02/201408/05/2015 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 07/06/2014 05/23/2019 documented as of this encounter (statuses as of 02/18/2023) [facility] History of Past illness Narrative* Problem Noted Date Resolved Date Primary open-angle glaucoma, left eye, moderate stage 05/23/2019 04/11/2021 Primary open angle glaucoma of right eye, modera te stage 03/01/2017 11/06/2020 Primary open-angle glaucoma, left eye, mild stag e 03/01/2017 10/14/2017 Primary open angle glaucoma of both eyes, modera te stage 10/01/2016 10/14/2017 Lens replaced by other means - Left Eye 11/30/19 15 08/05/2015 COAG (chronic open-angle glaucoma) - Both Eyes 1 09/05/2013 10/14/2017 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 07/06/2014 08/05/2015 Visual field defect, unspecified - Right Eye 02/201408/05/2015 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 07/06/2014 05/23/2019 documented as of this encounter (statuses as of 02/18/2023) [facility] of Past illness Narrative* Problem Noted Date Resolved Date Primary open-angle glaucoma, left eye, moderate stage 05/23/2019 04/11/2021 Primary open angle glaucoma of right eye, modera te stage 03/01/2017 11/06/2020 Primary open-angle glaucoma, left eye, mild stag e 03/01/2017 10/14/2017 Primary open angle glaucoma of both eyes, modera te stage 10/01/2016 10/14/2017 Lens replaced by other means - Left Eye 11/30/19 15 08/05/2015 COAG (chronic open-angle glaucoma) - Both Eyes 1 09/05/2013 10/14/2017 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 07/06/2014 08/05/2015 Visual field defect, unspecified - Right Eye 02/201408/05/2015 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 07/06/2014 05/23/2019 documented as of this encounter (statuses as of 02/22/2023) [facility] History of Past illness Narrative* Problem Noted Date Resolved Date Primary open-angle glaucoma, left eye, moderate stage 05/23/2019 04/11/2021 Primary open angle glaucoma of right eye, modera te stage 03/01/2017 11/06/2020 Primary open-angle glaucoma, left eye, mild stag e 03/01/2017 10/14/2017 Primary open angle glaucoma of both eyes, modera te stage 10/01/2016 10/14/2017 Lens replaced by other means - Left Eye 11/30/19 15 08/05/2015 COAG (chronic open-angle glaucoma) - Both Eyes 1 09/05/2013 10/14/2017 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 07/06/2014 08/05/2015 Visual field defect, unspecified - Right Eye 02/201408/05/2015 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 07/06/2014 05/23/2019 documented as of this encounter (statuses as of 02/25/2023) [facility] History of Past illness Narrative* Problem Noted Date Resolved Date Primary open-angle glaucoma, left eye, moderate stage 05/23/2019 04/11/2021 Primary open angle glaucoma of right eye, modera te stage 03/01/2017 11/06/2020 Primary open-angle glaucoma, left eye, mild stag e 03/01/2017 10/14/2017 Primary open angle glaucoma of both eyes, modera te stage 10/01/2016 10/14/2017 Lens replaced by other means - Left Eye 11/30/1908/05/2015 COAG (chronic open-angle glaucoma) - Both Eyes 1 09/05/2013 10/14/2017 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 07/06/2014 08/05/2015 Visual field defect, unspecified - Right Eye 02/201408/05/2015 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 07/06/2014 05/23/2019 documented as of this encounter (statuses as of 03/03/2023) [facility] History of Past illness Narrative* Problem Noted Date Resolved Date Primary open-angle glaucoma, left eye, moderate stage 05/23/2019 04/11/2021 Primary open angle glaucoma of right eye, modera te stage 03/01/2017 11/06/2020 Primary open-angle glaucoma, left eye, mild stag e 03/01/2017 10/14/2017 Primary open angle glaucoma of both eyes, modera te stage 10/01/2016 10/14/2017 Lens replaced by other means - Left Eye 11/30/19 15 08/05/2015 COAG (chronic open-angle glaucoma) - Both Eyes 1 09/05/2013 10/14/2017 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 07/06/2014 08/05/2015 Visual field defect, unspecified - Right Eye 02/201408/05/2015 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 07/06/2014 05/23/2019 documented as of this encounter (statuses as of 03/03/2023) [facility] History of Past illness Narrative* Problem Noted Date Resolved Date Primary open-angle glaucoma, left eye, moderate stage 05/23/2019 04/11/2021 Primary open angle glaucoma of right eye, modera te stage 03/01/2017 11/06/2020 Primary open-angle glaucoma, left eye, mild stag e 03/01/2017 10/14/2017 Primary open angle glaucoma of both eyes, modera te stage 10/01/2016 10/14/2017 Lens replaced by other means - Left Eye 11/30/19 15 08/05/2015 COAG (chronic open-angle glaucoma) - Both Eyes 1 09/05/2013 10/14/2017 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 07/06/2014 08/05/2015 Visual field defect, unspecified - Right Eye 02/201408/05/2015 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 07/06/2014 05/23/2019 documented as of this encounter (statuses as of 03/05/2023) [facility] History of Past illness Narrative* Problem Noted Date Resolved Date Primary open-angle glaucoma, left eye, moderate stage 05/23/2019 04/11/2021 Primary open angle glaucoma of right eye, modera te stage 03/01/2017 11/06/2020 Primary open-angle glaucoma, left eye, mild stag e 03/01/2017 10/14/2017 Primary open angle glaucoma of both eyes, modera te stage 10/01/2016 10/14/2017 Lens replaced by other means - Left Eye 11/30/19 15 08/05/2015 COAG (chronic open-angle glaucoma) - Both Eyes 1 09/05/2013 10/14/2017 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 07/06/2014 08/05/2015 Visual field defect, unspecified - Right Eye 02/201408/05/2015 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 07/06/2014 05/23/2019 documented as of this encounter (statuses as of 03/05/2023) [facility] History of Past illness Narrative* Problem Noted Date Diagnosed Date Resolved Date Primary open-angle glaucoma, left eye, moderate stage 05/23/2019 04/11/2021 Primary open angle glaucoma of right eye, moderate stage 03/01/2017 11/06/2020 Primary open-angle glaucoma, left eye, mild stage 03/01/2017 10/14/2017 Primary open angle glaucoma of both eyes, moderate stage 10/01/2016 10/14/2017 Lens replaced by other means - Left Eye 11/29/2014 08/05/2015 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 07/06/2014 10/14/2017 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 07/06/2014 08/05/2015 Visual field defect, unspecified - Right Eye 4 08/05/2015 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 07/06/2014 05/23/2019 documented as of this encounter (statuses as of 03/12/2023) [facility] History of Past illness Narrative* Problem Noted Date Diagnosed Date Resolved Date Primary open-angle glaucoma, left eye, moderate stage 05/23/2019 04/11/2021 Primary open angle glaucoma of right eye, moderate stage 03/01/2017 11/06/2020 Primary open-angle glaucoma, left eye, mild stage 03/01/2017 10/14/2017 Primary open angle glaucoma of both eyes, moderate stage 10/01/2016 10/14/2017 Lens replaced by other means - Left Eye 11/29/2014 08/05/2015 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 07/06/2014 10/14/2017 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 07/06/2014 08/05/2015 Visual field defect, unspecified - Right Eye 4 08/05/2015 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 07/06/2014 05/23/2019 documented as of this encounter (statuses as of 03/13/2023) [facility] History of Past illness Narrative* Problem Noted Date Diagnosed Date Resolved Date Primary open-angle glaucoma, left eye, moderate stage 05/23/2019 04/11/2021 Primary open angle glaucoma of right eye, moderate stage 03/01/2017 11/06/2020 Primary open-angle glaucoma, left eye, mild stage 03/01/2017 10/14/2017 Primary open angle glaucoma of both eyes, moderate stage 10/01/2016 10/14/2017 Lens replaced by other means - Left Eye 11/29/2014 08/05/2015 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 07/06/2014 10/14/2017 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 07/06/2014 08/05/2015 Visual field defect, unspecified - Right Eye 4 08/05/2015 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 07/06/2014 05/23/2019 documented as of this encounter (statuses as of 03/13/2023) [facility] History of Past illness Narrative* Problem Noted Date Diagnosed Date Resolved Date Primary open-angle glaucoma, left eye, moderate stage 05/23/2019 04/11/2021 Primary open angle glaucoma of right eye, moderate stage 03/01/2017 11/06/2020 Primary open-angle glaucoma, left eye, mild stage 03/01/2017 10/14/2017 Primary open angle glaucoma of both eyes, moderate stage 10/01/2016 10/14/2017 Lens replaced by other means - Left Eye 11/29/2014 08/05/2015 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 07/06/2014 10/14/2017 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 07/06/2014 08/05/2015 Visual field defect, unspecified - Right Eye 4 08/05/2015 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 07/06/2014 05/23/2019 documented as of this encounter (statuses as of 03/13/2023) [facility] History of Past illness Narrative* Problem Noted Date Diagnosed Date Resolved Date Primary open-angle glaucoma, left eye, moderate stage 05/23/2019 04/11/2021 Primary open angle glaucoma of right eye, moderate stage 03/01/2017 11/06/2020 Primary open-angle glaucoma, left eye, mild stage 03/01/2017 10/14/2017 Primary open angle glaucoma of both eyes, moderate stage 10/01/2016 10/14/2017 Lens replaced by other means - Left Eye 11/29/2014 08/05/2015 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 07/06/2014 10/14/2017 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 07/06/2014 08/05/2015 Visual field defect, unspecified - Right Eye 4 08/05/2015 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 07/06/2014 05/23/2019 documented as of this encounter (statuses as of 03/17/2023) [facility] History of Past illness Narrative* Problem Noted Date Diagnosed Date Resolved Date Primary open-angle glaucoma, left eye, moderate stage 05/23/2019 04/11/2021 Primary open angle glaucoma of right eye, moderate stage 03/01/2017 11/06/2020 Primary open-angle glaucoma, left eye, mild stage 03/01/2017 10/14/2017 Primary open angle glaucoma of both eyes, moderate stage 10/01/2016 10/14/2017 Lens replaced by other means - Left Eye 11/29/2014 08/05/2015 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 07/06/2014 10/14/2017 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 07/06/2014 08/05/2015 Visual field defect, unspecified - Right Eye 4 08/05/2015 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 07/06/2014 05/23/2019 documented as of this encounter (statuses as of 03/29/2023) [facility] History of Past illness Narrative* Problem Noted Date Diagnosed Date Resolved Date Primary open-angle glaucoma, left eye, moderate stage 05/23/2019 04/11/2021 Primary open angle glaucoma of right eye, moderate stage 03/01/2017 11/06/2020 Primary open-angle glaucoma, left eye, mild stage 03/01/2017 10/14/2017 Primary open angle glaucoma of both eyes, moderate stage 10/01/2016 10/14/2017 Lens replaced by other means - Left Eye 11/29/2014 08/05/2015 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 07/06/2014 10/14/2017 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 07/06/2014 08/05/2015 Visual field defect, unspecified - Right Eye 4 08/05/2015 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 07/06/2014 05/23/2019 documented as of this encounter (statuses as of 03/30/2023) [facility] History of Past illness Narrative* Problem Noted Date Diagnosed Date Resolved Date Primary open-angle glaucoma, left eye, moderate stage 05/23/2019 04/11/2021 Primary open angle glaucoma of right eye, moderate stage 03/01/2017 11/06/2020 Primary open-angle glaucoma, left eye, mild stage 03/01/2017 10/14/2017 Primary open angle glaucoma of both eyes, moderate stage 10/01/2016 10/14/2017 Lens replaced by other means - Left Eye 11/29/2014 08/05/2015 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 07/06/2014 10/14/2017 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 07/06/2014 08/05/2015 Visual field defect, unspecified - Right Eye 4 08/05/2015 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 07/06/2014 05/23/2019 documented as of this encounter (statuses as of 03/30/2023) [facility] History of Past illness Narrative* Problem Noted Date Diagnosed Date Resolved Date Primary open-angle glaucoma, left eye, moderate stage 05/23/2019 04/11/2021 Primary open angle glaucoma of right eye, moderate stage 03/01/2017 11/06/2020 Primary open-angle glaucoma, left eye, mild stage 03/01/2017 10/14/2017 Primary open angle glaucoma of both eyes, moderate stage 10/01/2016 10/14/2017 Lens replaced by other means - Left Eye 11/29/2014 08/05/2015 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 07/06/2014 10/14/2017 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 07/06/2014 08/05/2015 Visual field defect, unspecified - Right Eye 4 08/05/2015 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 07/06/2014 05/23/2019 documented as of this encounter (statuses as of 04/05/2023) [facility] History of Past illness Narrative* Problem Noted Date Diagnosed Date Resolved Date Primary open-angle glaucoma, left eye, moderate stage 05/23/2019 04/11/2021 Primary open angle glaucoma of right eye, moderate stage 03/01/2017 11/06/2020 Primary open-angle glaucoma, left eye, mild stage 03/01/2017 10/14/2017 Primary open angle glaucoma of both eyes, moderate stage 10/01/2016 10/14/2017 Lens replaced by other means - Left Eye 11/29/2014 08/05/2015 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 07/06/2014 10/14/2017 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 07/06/2014 08/05/2015 Visual field defect, unspecified - Right Eye 4 08/05/2015 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 07/06/2014 05/23/2019 documented as of this encounter (statuses as of 04/15/2023) [facility] History of Past illness Narrative* Problem Noted Date Diagnosed Date Resolved Date Primary open-angle glaucoma, left eye, moderate stage 05/23/2019 04/11/2021 Primary open angle glaucoma of right eye, moderate stage 03/01/2017 11/06/2020 Primary open-angle glaucoma, left eye, mild stage 03/01/2017 10/14/2017 Primary open angle glaucoma of both eyes, moderate stage 10/01/2016 10/14/2017 Lens replaced by other means - Left Eye 11/29/2014 08/05/2015 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 07/06/2014 10/14/2017 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 07/06/2014 08/05/2015 Visual field defect, unspecified - Right Eye 4 08/05/2015 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 07/06/2014 05/23/2019 documented as of this encounter (statuses as of 04/30/2023) [facility] History of Past illness Narrative* Problem Noted Date Diagnosed Date Resolved Date Primary open-angle glaucoma, left eye, moderate stage 05/23/2019 04/11/2021 Primary open angle glaucoma of right eye, moderate stage 03/01/2017 11/06/2020 Primary open-angle glaucoma, left eye, mild stage 03/01/2017 10/14/2017 Primary open angle glaucoma of both eyes, moderate stage 10/01/2016 10/14/2017 Lens replaced by other means - Left Eye 11/29/2014 08/05/2015 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 07/06/2014 10/14/2017 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 07/06/2014 08/05/2015 Visual field defect, unspecified - Right Eye 4 08/05/2015 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 07/06/2014 05/23/2019 documented as of this encounter (statuses as of 05/21/2023) [facility] History of Past illness Narrative* Problem Noted Date Diagnosed Date Resolved Date Primary open-angle glaucoma, left eye, moderate stage 05/23/2019 04/11/2021 Primary open angle glaucoma of right eye, moderate stage 03/01/2017 11/06/2020 Primary open-angle glaucoma, left eye, mild stage 03/01/2017 10/14/2017 Primary open angle glaucoma of both eyes, moderate stage 10/01/2016 10/14/2017 Lens replaced by other means - Left Eye 11/29/2014 08/05/2015 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 07/06/2014 10/14/2017 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 07/06/2014 08/05/2015 Visual field defect, unspecified - Right Eye 4 08/05/2015 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 07/06/2014 05/23/2019 documented as of this encounter (statuses as of 05/21/2023) [facility] History of Past illness Narrative* Problem Noted Date Diagnosed Date Resolved Date Primary open-angle glaucoma, left eye, moderate stage 05/23/2019 04/11/2021 Primary open angle glaucoma of right eye, moderate stage 03/01/2017 11/06/2020 Primary open-angle glaucoma, left eye, mild stage 03/01/2017 10/14/2017 Primary open angle glaucoma of both eyes, moderate stage 10/01/2016 10/14/2017 Lens replaced by other means - Left Eye 11/29/2014 08/05/2015 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 07/06/2014 10/14/2017 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 07/06/2014 08/05/2015 Visual field defect, unspecified - Right Eye 4 08/05/2015 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 07/06/2014 05/23/2019 documented as of this encounter (statuses as of 06/04/2023) [facility] of Past illness Narrative* Problem Noted Date Diagnosed Date Resolved Date Primary open-angle glaucoma, left eye, moderate stage 05/23/2019 04/11/2021 Primary open angle glaucoma of right eye, moderate stage 03/01/2017 11/06/2020 Primary open-angle glaucoma, left eye, mild stage 03/01/2017 10/14/2017 Primary open angle glaucoma of both eyes, moderate stage 10/01/2016 10/14/2017 Lens replaced by other means - Left Eye 11/29/2014 08/05/2015 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 07/06/2014 10/14/2017 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 07/06/2014 08/05/2015 Visual field defect, unspecified - Right Eye 4 08/05/2015 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 07/06/2014 05/23/2019 documented as of this encounter (statuses as of 06/04/2023) [facility] History of Past illness Narrative* Problem Noted Date Diagnosed Date Resolved Date Primary open-angle glaucoma, left eye, moderate stage 05/23/2019 04/11/2021 Primary open angle glaucoma of right eye, moderate stage 03/01/2017 11/06/2020 Primary open-angle glaucoma, left eye, mild stage 03/01/2017 10/14/2017 Primary open angle glaucoma of both eyes, moderate stage 10/01/2016 10/14/2017 Lens replaced by other means - Left Eye 11/29/2014 08/05/2015 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 07/06/2014 10/14/2017 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 07/06/2014 08/05/2015 Visual field defect, unspecified - Right Eye 4 08/05/2015 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 07/06/2014 05/23/2019 documented as of this encounter (statuses as of 06/11/2023) [facility] Past illness Narrative* Problem Noted Date Diagnosed Date Resolved Date Primary open-angle glaucoma, left eye, moderate stage 05/23/2019 04/11/2021 Primary open angle glaucoma of right eye, moderate stage 03/01/2017 11/06/2020 Primary open-angle glaucoma, left eye, mild stage 03/01/2017 10/14/2017 Primary open angle glaucoma of both eyes, moderate stage 10/01/2016 10/14/2017 Lens replaced by other means - Left Eye 11/29/2014 08/05/2015 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 07/06/2014 10/14/2017 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 07/06/2014 08/05/2015 Visual field defect, unspecified - Right Eye 4 08/05/2015 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 07/06/2014 05/23/2019 documented as of this encounter (statuses as of 06/16/2023) [facility] Past illness Narrative* Problem Noted Date Diagnosed Date Resolved Date Primary open-angle glaucoma, left eye, moderate stage 05/23/2019 04/11/2021 Primary open angle glaucoma of right eye, moderate stage 03/01/2017 11/06/2020 Primary open-angle glaucoma, left eye, mild stage 03/01/2017 10/14/2017 Primary open angle glaucoma of both eyes, moderate stage 10/01/2016 10/14/2017 Lens replaced by other means - Left Eye 11/29/2014 08/05/2015 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 07/06/2014 10/14/2017 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 07/06/2014 08/05/2015 Visual field defect, unspecified - Right Eye 4 08/05/2015 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 07/06/2014 05/23/2019 documented as of this encounter (statuses as of 06/18/2023) [facility] Past illness Narrative* Problem Noted Date Diagnosed Date Resolved Date Primary open-angle glaucoma, left eye, moderate stage 05/23/2019 04/11/2021 Primary open angle glaucoma of right eye, moderate stage 03/01/2017 11/06/2020 Primary open-angle glaucoma, left eye, mild stage 03/01/2017 10/14/2017 Primary open angle glaucoma of both eyes, moderate stage 10/01/2016 10/14/2017 Lens replaced by other means - Left Eye 11/29/2014 08/05/2015 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 07/06/2014 10/14/2017 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 07/06/2014 08/05/2015 Visual field defect, unspecified - Right Eye 4 08/05/2015 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 07/06/2014 05/23/2019 documented as of this encounter (statuses as of 06/22/2023) [facility] History of Past illness Narrative* Problem Noted Date Diagnosed Date Resolved Date Primary open-angle glaucoma, left eye, moderate stage 05/23/2019 04/11/2021 Primary open angle glaucoma of right eye, moderate stage 03/01/2017 11/06/2020 Primary open-angle glaucoma, left eye, mild stage 03/01/2017 10/14/2017 Primary open angle glaucoma of both eyes, moderate stage 10/01/2016 10/14/2017 Lens replaced by other means - Left Eye 11/29/2014 08/05/2015 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 07/06/2014 10/14/2017 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 07/06/2014 08/05/2015 Visual field defect, unspecified - Right Eye 4 08/05/2015 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 07/06/2014 05/23/2019 documented as of this encounter (statuses as of 06/23/2023) [facility] of Past illness Narrative* Problem Noted Date Diagnosed Date Resolved Date Primary open-angle glaucoma, left eye, moderate stage 05/23/2019 04/11/2021 Primary open angle glaucoma of right eye, moderate stage 03/01/2017 11/06/2020 Primary open-angle glaucoma, left eye, mild stage 03/01/2017 10/14/2017 Primary open angle glaucoma of both eyes, moderate stage 10/01/2016 10/14/2017 Lens replaced by other means - Left Eye 11/29/2014 08/05/2015 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 07/06/2014 10/14/2017 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 07/06/2014 08/05/2015 Visual field defect, unspecified - Right Eye 4 08/05/2015 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 07/06/2014 05/23/2019 documented as of this encounter (statuses as of 06/25/2023) [facility] of Past illness Narrative* Problem Noted Date Diagnosed Date Resolved Date Primary open-angle glaucoma, left eye, moderate stage 05/23/2019 04/11/2021 Primary open angle glaucoma of right eye, moderate stage 03/01/2017 11/06/2020 Primary open-angle glaucoma, left eye, mild stage 03/01/2017 10/14/2017 Primary open angle glaucoma of both eyes, moderate stage 10/01/2016 10/14/2017 Lens replaced by other means - Left Eye 11/29/2014 08/05/2015 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 07/06/2014 10/14/2017 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 07/06/2014 08/05/2015 Visual field defect, unspecified - Right Eye 4 08/05/2015 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 07/06/2014 05/23/2019 documented as of this encounter (statuses as of 06/25/2023) [facility] of [facility] illness Narrative* Problem Noted Date Diagnosed Date Resolved Date Primary open-angle glaucoma, left eye, moderate stage 05/23/2019 04/11/2021 Primary open angle glaucoma of right eye, moderate stage 03/01/2017 11/06/2020 Primary open-angle glaucoma, left eye, mild stage 03/01/2017 10/14/2017 Primary open angle glaucoma of both eyes, moderate stage 10/01/2016 10/14/2017 Lens replaced by other means - Left Eye 11/29/2014 08/05/2015 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 07/06/2014 10/14/2017 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 07/06/2014 08/05/2015 Visual field defect, unspecified - Right Eye 4 08/05/2015 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 07/06/2014 05/23/2019 documented as of this encounter (statuses as of 07/04/2023) [facility] of [facility] Narrative* Problem Noted Date Diagnosed Date Resolved Date Primary open-angle glaucoma, left eye, moderate stage 05/23/2019 04/11/2021 Primary open angle glaucoma of right eye, moderate stage 03/01/2017 11/06/2020 Primary open-angle glaucoma, left eye, mild stage 03/01/2017 10/14/2017 Primary open angle glaucoma of both eyes, moderate stage 10/01/2016 10/14/2017 Lens replaced by other means - Left Eye 11/29/2014 08/05/2015 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 07/06/2014 10/14/2017 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 07/06/2014 08/05/2015 Visual field defect, unspecified - Right Eye 4 08/05/2015 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 07/06/2014 05/23/2019 documented as of this encounter (statuses as of 07/13/2023) [facility] of Past illness Narrative* Problem Noted Date Diagnosed Date Resolved Date Primary open-angle glaucoma, left eye, moderate stage 05/23/2019 04/11/2021 Primary open angle glaucoma of right eye, moderate stage 03/01/2017 11/06/2020 Primary open-angle glaucoma, left eye, mild stage 03/01/2017 10/14/2017 Primary open angle glaucoma of both eyes, moderate stage 10/01/2016 10/14/2017 Lens replaced by other means - Left Eye 11/29/2014 08/05/2015 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 07/06/2014 10/14/2017 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 07/06/2014 08/05/2015 Visual field defect, unspecified - Right Eye 4 08/05/2015 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 07/06/2014 05/23/2019 documented as of this encounter (statuses as of 07/28/2023) [facility] of Past illness Narrative* Problem Noted Date Diagnosed Date Resolved Date Primary open-angle glaucoma, left eye, moderate stage 05/23/2019 04/11/2021 Primary open angle glaucoma of right eye, moderate stage 03/01/2017 11/06/2020 Primary open-angle glaucoma, left eye, mild stage 03/01/2017 10/14/2017 Primary open angle glaucoma of both eyes, moderate stage 10/01/2016 10/14/2017 Lens replaced by other means - Left Eye 11/29/2014 08/05/2015 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 07/06/2014 10/14/2017 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 07/06/2014 08/05/2015 Visual field defect, unspecified - Right Eye 4 08/05/2015 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 07/06/2014 05/23/2019 documented as of this encounter (statuses as of 10/01/2023) [facility] of Past illness Narrative* Problem Noted Date Diagnosed Date Resolved Date Primary open-angle glaucoma, left eye, moderate stage 05/23/2019 04/11/2021 Primary open angle glaucoma of right eye, moderate stage 03/01/2017 11/06/2020 Primary open-angle glaucoma, left eye, mild stage 03/01/2017 10/14/2017 Primary open angle glaucoma of both eyes, moderate stage 10/01/2016 10/14/2017 Lens replaced by other means - Left Eye 11/29/2014 08/05/2015 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 07/06/2014 10/14/2017 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 07/06/2014 08/05/2015 Visual field defect, unspecified - Right Eye 4 08/05/2015 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 07/06/2014 05/23/2019 documented as of this encounter (statuses as of 10/06/2023) [facility] of Past illness Narrative* Problem Noted Date Diagnosed Date Resolved Date Primary open-angle glaucoma, left eye, moderate stage 05/23/2019 04/11/2021 Primary open angle glaucoma of right eye, moderate stage 03/01/2017 11/06/2020 Primary open-angle glaucoma, left eye, mild stage 03/01/2017 10/14/2017 Primary open angle glaucoma of both eyes, moderate stage 10/01/2016 10/14/2017 Lens replaced by other means - Left Eye 11/29/2014 08/05/2015 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 07/06/2014 10/14/2017 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 07/06/2014 08/05/2015 Visual field defect, unspecified - Right Eye 4 08/05/2015 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 07/06/2014 05/23/2019 documented as of this encounter (statuses as of 10/07/2023) [facility] of Past illness Narrative* Problem Noted Date Diagnosed Date Resolved Date Primary open-angle glaucoma, left eye, moderate stage 05/23/2019 04/11/2021 Primary open angle glaucoma of right eye, moderate stage 03/01/2017 11/06/2020 Primary open-angle glaucoma, left eye, mild stage 03/01/2017 10/14/2017 Primary open angle glaucoma of both eyes, moderate stage 10/01/2016 10/14/2017 Lens replaced by other means - Left Eye 11/29/2014 08/05/2015 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 07/06/2014 10/14/2017 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 07/06/2014 08/05/2015 Visual field defect, unspecified - Right Eye 4 08/05/2015 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 07/06/2014 05/23/2019 documented as of this encounter (statuses as of 10/08/2023) [facility] of Past illness Narrative* Problem Noted Date Diagnosed Date Resolved Date Primary open-angle glaucoma, left eye, moderate stage 05/23/2019 04/11/2021 Primary open angle glaucoma of right eye, moderate stage 03/01/2017 11/06/2020 Primary open-angle glaucoma, left eye, mild stage 03/01/2017 10/14/2017 Primary open angle glaucoma of both eyes, moderate stage 10/01/2016 10/14/2017 Lens replaced by other means - Left Eye 11/29/2014 08/05/2015 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 07/06/2014 10/14/2017 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 07/06/2014 08/05/2015 Visual field defect, unspecified - Right Eye 4 08/05/2015 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 07/06/2014 05/23/2019 documented as of this encounter (statuses as of 10/08/2023) [facility] History of Past illness Narrative* Problem Noted Date Diagnosed Date Resolved Date Primary open-angle glaucoma, left eye, moderate stage 05/23/2019 04/11/2021 Primary open angle glaucoma of right eye, moderate stage 03/01/2017 11/06/2020 Primary open-angle glaucoma, left eye, mild stage 03/01/2017 10/14/2017 Primary open angle glaucoma of both eyes, moderate stage 10/01/2016 10/14/2017 Lens replaced by other means - Left Eye 11/29/2014 08/05/2015 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 07/06/2014 10/14/2017 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 07/06/2014 08/05/2015 Visual field defect, unspecified - Right Eye 4 08/05/2015 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 07/06/2014 05/23/2019 documented as of this encounter (statuses as of 10/13/2023) [facility] of Past illness Narrative* Problem Noted Date Diagnosed Date Resolved Date Primary open-angle glaucoma, left eye, moderate stage 05/23/2019 04/11/2021 Primary open angle glaucoma of right eye, moderate stage 03/01/2017 11/06/2020 Primary open-angle glaucoma, left eye, mild stage 03/01/2017 10/14/2017 Primary open angle glaucoma of both eyes, moderate stage 10/01/2016 10/14/2017 Lens replaced by other means - Left Eye 11/29/2014 08/05/2015 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 07/06/2014 10/14/2017 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 07/06/2014 08/05/2015 Visual field defect, unspecified - Right Eye 4 08/05/2015 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 07/06/2014 05/23/2019 documented as of this encounter (statuses as of 10/21/2023) [facility] of Past illness Narrative* Problem Noted Date Diagnosed Date Resolved Date Primary open-angle glaucoma, left eye, moderate stage 05/23/2019 04/11/2021 Primary open angle glaucoma of right eye, moderate stage 03/01/2017 11/06/2020 Primary open-angle glaucoma, left eye, mild stage 03/01/2017 10/14/2017 Primary open angle glaucoma of both eyes, moderate stage 10/01/2016 10/14/2017 Lens replaced by other means - Left Eye 11/29/2014 08/05/2015 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 07/06/2014 10/14/2017 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 07/06/2014 08/05/2015 Visual field defect, unspecified - Right Eye 4 08/05/2015 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 07/06/2014 05/23/2019 documented as of this encounter (statuses as of 10/27/2023) [facility] of Past illness Narrative* Problem Noted Date Diagnosed Date Resolved Date Primary open-angle glaucoma, left eye, moderate stage 05/23/2019 04/11/2021 Primary open angle glaucoma of right eye, moderate stage 03/01/2017 11/06/2020 Primary open-angle glaucoma, left eye, mild stage 03/01/2017 10/14/2017 Primary open angle glaucoma of both eyes, moderate stage 10/01/2016 10/14/2017 Lens replaced by other means - Left Eye 11/29/2014 08/05/2015 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 07/06/2014 10/14/2017 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 07/06/2014 08/05/2015 Visual field defect, unspecified - Right Eye 4 08/05/2015 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 07/06/2014 05/23/2019 documented as of this encounter (statuses as of 11/19/2023) [facility] of Past illness Narrative* Problem Noted Date Diagnosed Date Resolved Date Primary open-angle glaucoma, left eye, moderate stage 05/23/2019 04/11/2021 Primary open angle glaucoma of right eye, moderate stage 03/01/2017 11/06/2020 Primary open-angle glaucoma, left eye, mild stage 03/01/2017 10/14/2017 Primary open angle glaucoma of both eyes, moderate stage 10/01/2016 10/14/2017 Lens replaced by other means - Left Eye 11/29/2014 08/05/2015 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 07/06/2014 10/14/2017 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 07/06/2014 08/05/2015 Visual field defect, unspecified - Right Eye 4 08/05/2015 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 07/06/2014 05/23/2019 documented as of this encounter (statuses as of 11/19/2023) [facility] of Past illness Narrative* Problem Noted Date Diagnosed Date Resolved Date Primary open-angle glaucoma, left eye, moderate stage 05/23/2019 04/11/2021 Primary open angle glaucoma of right eye, moderate stage 03/01/2017 11/06/2020 Primary open-angle glaucoma, left eye, mild stage 03/01/2017 10/14/2017 Primary open angle glaucoma of both eyes, moderate stage 10/01/2016 10/14/2017 Lens replaced by other means - Left Eye 11/29/2014 08/05/2015 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 07/06/2014 10/14/2017 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 07/06/2014 08/05/2015 Visual field defect, unspecified - Right Eye 4 08/05/2015 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 07/06/2014 05/23/2019 documented as of this encounter (statuses as of 12/02/2023) [facility] of Past illness Narrative* Problem Noted Date Diagnosed Date Resolved Date Primary open-angle glaucoma, left eye, moderate stage 05/23/2019 04/11/2021 Primary open angle glaucoma of right eye, moderate stage 03/01/2017 11/06/2020 Primary open-angle glaucoma, left eye, mild stage 03/01/2017 10/14/2017 Primary open angle glaucoma of both eyes, moderate stage 10/01/2016 10/14/2017 Lens replaced by other means - Left Eye 11/29/2014 08/05/2015 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 07/06/2014 10/14/2017 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 07/06/2014 08/05/2015 Visual field defect, unspecified - Right Eye 4 08/05/2015 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 07/06/2014 05/23/2019 documented as of this encounter (statuses as of 12/03/2023) [facility] of Past illness Narrative* Problem Noted Date Diagnosed Date Resolved Date Primary open-angle glaucoma, left eye, moderate stage 05/23/2019 04/11/2021 Primary open angle glaucoma of right eye, moderate stage 03/01/2017 11/06/2020 Primary open-angle glaucoma, left eye, mild stage 03/01/2017 10/14/2017 Primary open angle glaucoma of both eyes, moderate stage 10/01/2016 10/14/2017 Lens replaced by other means - Left Eye 11/29/2014 08/05/2015 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 07/06/2014 10/14/2017 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 07/06/2014 08/05/2015 Visual field defect, unspecified - Right Eye 4 08/05/2015 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 07/06/2014 05/23/2019 documented as of this encounter (statuses as of 12/09/2023) [facility] of Past illness Narrative* Problem Noted Date Diagnosed Date Resolved Date Primary open-angle glaucoma, left eye, moderate stage 05/23/2019 04/11/2021 Primary open angle glaucoma of right eye, moderate stage 03/01/2017 11/06/2020 Primary open-angle glaucoma, left eye, mild stage 03/01/2017 10/14/2017 Primary open angle glaucoma of both eyes, moderate stage 10/01/2016 10/14/2017 Lens replaced by other means - Left Eye 11/29/2014 08/05/2015 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 07/06/2014 10/14/2017 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 07/06/2014 08/05/2015 Visual field defect, unspecified - Right Eye 4 08/05/2015 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 07/06/2014 05/23/2019 documented as of this encounter (statuses as of 12/09/2023) [facility] Narrative* Problem Noted Date Diagnosed Date Resolved Date Primary open-angle glaucoma, left eye, moderate stage 05/23/2019 04/11/2021 Primary open angle glaucoma of right eye, moderate stage 03/01/2017 11/06/2020 Primary open-angle glaucoma, left eye, mild stage 03/01/2017 10/14/2017 Primary open angle glaucoma of both eyes, moderate stage 10/01/2016 10/14/2017 Lens replaced by other means - Left Eye 11/29/2014 08/05/2015 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 07/06/2014 10/14/2017 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 07/06/2014 08/05/2015 Visual field defect, unspecified - Right Eye 4 08/05/2015 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 07/06/2014 05/23/2019 documented as of this encounter (statuses as of 12/09/2023) [place] [id number] History of Past illness Narrative* Problem Noted Date Diagnosed Date Resolved Date Primary open-angle glaucoma, left eye, moderate stage 05/23/2019 04/11/2021 Primary open angle glaucoma of right eye, moderate stage 03/01/2017 11/06/2020 Primary open-angle glaucoma, left eye, mild stage 03/01/2017 10/14/2017 Primary open angle glaucoma of both eyes, moderate stage 10/01/2016 10/14/2017 Lens replaced by other means - Left Eye 11/29/2014 08/05/2015 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 07/06/2014 10/14/2017 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 07/06/2014 08/05/2015 Visual field defect, unspecified - Right Eye 4 08/05/2015 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 07/06/2014 05/23/2019 documented as of this encounter (statuses as of 12/17/2023) [place] [id number] History of Past illness Narrative* Problem Noted Date Diagnosed Date Resolved Date Primary open-angle glaucoma, left eye, moderate stage 05/23/2019 04/11/2021 Primary open angle glaucoma of right eye, moderate stage 03/01/2017 11/06/2020 Primary open-angle glaucoma, left eye, mild stage 03/01/2017 10/14/2017 Primary open angle glaucoma of both eyes, moderate stage 10/01/2016 10/14/2017 Lens replaced by other means - Left Eye 11/29/2014 08/05/2015 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 07/06/2014 10/14/2017 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 07/06/2014 08/05/2015 Visual field defect, unspecified - Right Eye 4 08/05/2015 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 07/06/2014 05/23/2019 documented as of this encounter (statuses as of 12/17/2023) [facility] of Past [facility] Narrative* Problem Noted Date Diagnosed Date Resolved Date Primary open-angle glaucoma, left eye, moderate stage 05/23/2019 04/11/2021 Primary open angle glaucoma of right eye, moderate stage 03/01/2017 11/06/2020 Primary open-angle glaucoma, left eye, mild stage 03/01/2017 10/14/2017 Primary open angle glaucoma of both eyes, moderate stage 10/01/2016 10/14/2017 Lens replaced by other means - Left Eye 11/29/2014 08/05/2015 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 07/06/2014 10/14/2017 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 07/06/2014 08/05/2015 Visual field defect, unspecified - Right Eye 4 08/05/2015 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 07/06/2014 05/23/2019 documented as of this encounter (statuses as of 12/03/2023) [facility] Malignant neoplasm of endometrium (HCC) Malignant neoplasm of corpus uteri, except isthmus documented [facility] encounter [facility] [place] [facility] Diagnosis History of uterine cancer Personal history of malignant neoplasm of other parts of uterus Endometrial cancer (HCC) Malignant neoplasm of corpus uteri, except isthmus Generalized abdominal pain Abdominal pain, generalized [facility] Malignant neoplasm of endometrium (HCC)- Primary Malignant neoplasm of corpus uteri, except isthmus Periaortic lymphadenopathy Enlargement of lymph nodes [facility] Diagnosis Primary open angle glaucoma (POAG) of right eye, severe stage- Primary Primary open angle glaucoma (POAG) of left eye, moderate stage Glaucomatous optic atrophy, bilateral Visual field loss Visual field defect, unspecified Stable central retinal vein occlusion of right eye Multiple sclerosis (HCC) Multiple sclerosis [facility] [place] [facility] Diagnosis Malignant neoplasm of endometrium (HCC) Malignant neoplasm of corpus uteri, except isthmus [facility] [place] [facility] Diagnosis Malignant neoplasm of endometrium (HCC)- Primary Malignant neoplasm of corpus uteri, except isthmus Periaortic lymphadenopathy Enlargement of lymph nodes [facility] Back problem- Primary Other unspecified back disorder Multiple sclerosis (HCC) Multiple sclerosis Balance problem Other symptoms involving nervous and musculoskeletal systems [facility] [place] [facility] Diagnosis Frequent falls- Primary Personal history of fall Balance disorder Other symptoms involving nervous and musculoskeletal systems Ambulatory dysfunction Difficulty in walking Chronic deep vein thrombosis (DVT) of proximal vein of left lower extremity (HCC) Multiple sclerosis (HCC) [facility] Malignant neoplasm of endometrium (HCC)- Primary Malignant neoplasm of corpus uteri, except isthmus Periaortic lymphadenopathy Enlargement of lymph nodes Dysuria [facility] Encounter for monitoring chronic NSAID therapy- Primary Encounter for therapeutic drug monitoring Hypokalemia Hypopotassemia Mixed hyperlipidemia Vitamin D deficiency Unspecified vitamin D deficiency Hypothyroidism, unspecified type Recurrent UTI Urinary tract infection, site not specified Depression, unspecified depression type Insomnia, unspecified type [facility] [place] [facility] Diagnosis Malignant neoplasm of endometrium (HCC) Malignant neoplasm of corpus uteri, except isthmus [facility] Mixed hyperlipidemia Encounter for monitoring chronic NSAID therapy Encounter for therapeutic drug monitoring Recurrent UTI Urinary tract infection, site not specified Vitamin D deficiency Unspecified vitamin D deficiency Hypothyroidism, unspecified type Hypokalemia Hypopotassemia documented [facility] encounter [facility] [place] [facility] Diagnosis Malignant neoplasm of endometrium (HCC)- Primary Malignant neoplasm of corpus uteri, except isthmus [facility] [place] [facility]* Diagnosis Acute cystitis without hematuria- Primary Acute cystitis [facility] [place] [facility] Diagnosis Malignant neoplasm of endometrium (HCC)- Primary Malignant neoplasm of corpus uteri, except [place] [facility] [place] [facility]* Diagnosis Acute cystitis without hematuria- Primary Acute cystitis Chronic UTI Urinary tract infection, site not specified Screening for genitourinary condition Screening for other and unspecified genitourinary condition [facility] [place] [facility]* Diagnosis Malignant neoplasm of endometrium (HCC)- Primary Malignant neoplasm of corpus uteri, except isthmus Periaortic lymphadenopathy Enlargement of lymph nodes S/P radiation therapy Convalescence following radiotherapy [facility] [place] [facility]* Diagnosis Dysuria- Primary Recurrent UTI (urinary tract infection) Urinary tract infection, site not specified [facility] [place] [facility]* Diagnosis Positional lightheadedness- Primary Dizziness and giddiness Diarrhea, unspecified type Recurrent UTI Urinary tract infection, site not specified [facility] [place] [facility]* Diagnosis Optic atrophy, right eye- Primary Optic atrophy, unspecified Primary open angle glaucoma (POAG) of right eye, severe stage Primary open angle glaucoma (POAG) of left eye, moderate stage Visual field loss Visual field defect, unspecified Multiple sclerosis (HCC) Multiple sclerosis [facility] [place] [facility]* Diagnosis Endometrial cancer (HCC)- Primary Malignant neoplasm of corpus uteri, except isthmus documented [facility] [place] [facility]* Diagnosis Diarrhea, unspecified type- Primary Hypomagnesemia Disorders of magnesium metabolism Dizziness Dizziness and giddiness Endometrial cancer, grade I (HCC) [facility] [place] [facility] Diagnosis Malignant neoplasm of endometrium (HCC)- Primary Malignant neoplasm of corpus uteri, except isthmus Periaortic lymphadenopathy Enlargement of lymph nodes S/P radiation therapy Convalescence following radiotherapy [facility] [place] [facility]* Diagnosis Malignant neoplasm of endometrium (HCC)- Primary Malignant neoplasm of corpus uteri, except isthmus Endometrial cancer (HCC) Malignant neoplasm of corpus uteri, except isthmus documented [facility] [place] [facility]* Diagnosis Depression, unspecified depression type Insomnia, unspecified type [facility] [place] [facility] Diagnosis Hypomagnesemia- Primary Disorders of magnesium metabolism Hypothyroidism, unspecified type Vitamin D deficiency Unspecified vitamin D deficiency Vitamin B12 deficiency Other B-complex deficiencies Mixed hyperlipidemia [facility] [place] [facility]* Diagnosis Onset Date Resolution Status RY (acute kidney injury) ac [place] Anemia acute Debility acute Dehydration acute Generalized weakness acute Severe malnutrition acute [facility] Work Phone: Evaluation note* Diagnosis Recurrent UTI (urinary tract infection)- Primary Urinary tract infection, site not specified Recurrent acute confusion Delirium due to conditions classified elsewhere Rectal bleeding Hemorrhage of rectum and anus Acute bilateral low back pain without sciatica Excoriation of buttock, initial encounter Decreased rectal sphincter tone Other specified disorder of rectum and anus Chronic diarrhea Diarrhea [facility] [place] note* Diagnosis Onset Date Resolution Status RY (acute kidney injury) ac [place] Anemia acute Debility acute Dehydration acute DVT (deep venous thrombosis) acute Generalized weakness acute Presence of IVC filter acute Severe malnutrition acute [facility] Work Phone: Evaluation note* Diagnosis Onset Date Resolution Status RY (acute kidney injury) [place] Anemia acute Debility acute Dehydration acute DVT (deep venous thrombosis) acute Generalized weakness acute Presence of IVC filter acute Severe malnutrition acute RY (acute kidney injury) [place] Anemia acute Anxiety acute Debility acute Dehydration acute Depression acute DVT (deep venous thrombosis) acute Generalized weakness acute Glaucoma acute Hyperlipidemia acute Multiple sclerosis acute [facility] Work Phone: Evaluation note* Diagnosis Onset Date Resolution Status Anemia acute Debility acute DVT (deep venous thrombosis) acute Generalized weakness acute Presence of IVC filter acute Severe malnutrition acute RY (acute kidney injury) re solved Dehydration resolved Anemia acute Anxiety acute Debility acute Depression acute DVT (deep venous thrombosis) acute Generalized weakness acute Glaucoma acute Hyperlipidemia acute Multiple sclerosis acute RY (acute kidney injury) re solved Dehydration resolved DVT (deep venous thrombosis) acute Generalized weakness acute Presence of IVC filter acute [facility] Work Phone: Evaluation note* Diagnosis Onset Date Resolution Status Anemia acute Debility acute DVT (deep venous thrombosis) acute Generalized weakness acute Presence of IVC filter acute Severe malnutrition acute RY (acute kidney injury) re solved Dehydration resolved Anemia acute Anxiety acute Debility acute Depression acute DVT (deep venous thrombosis) acute Generalized weakness acute Glaucoma acute Hyperlipidemia acute Multiple sclerosis acute RY (acute kidney injury) re solved Dehydration resolved DVT (deep venous thrombosis) acute Generalized weakness acute Presence of IVC filter acute Debility acute Depression acute Glaucoma acute Hyperlipidemia acute Hypokalemia acute Hypothyroidism acute Nausea acute Recurrent urinary tract infection acute Vitamin D deficiency acute Deep vein thrombosis, lower right extremity resolved Weakness resolved [facility] Work Phone: Evaluation note* Diagnosis Onset Date Resolution Status Anemia acute Debility acute DVT (deep venous thrombosis) acute Generalized weakness acute Presence of IVC filter acute Severe malnutrition acute RY (acute kidney injury) re solved Dehydration resolved Anemia acute Anxiety acute Debility acute Depression acute DVT (deep venous thrombosis) acute Generalized weakness acute Glaucoma acute Hyperlipidemia acute Multiple sclerosis acute RY (acute kidney injury) re solved Dehydration resolved DVT (deep venous thrombosis) acute Generalized weakness acute Presence of IVC filter acute Debility acute Depression acute Glaucoma acute Hyperlipidemia acute Hypokalemia acute Hypothyroidism acute Nausea acute Recurrent urinary tract infection acute Vitamin D deficiency acute Deep vein thrombosis, lower right extremity resolved Weakness resolved DVT (deep venous thrombosis) acute [facility] Work Phone: Evaluation note* Diagnosis Depression, unspecified depression type Insomnia, unspecified type documented in this encounter [facility] note* Diagnosis Endometrial cancer (HCC) [C54.1 (ICD-10-CM)]- Primary Malignant neoplasm of corpus uteri, except isthmus Malignant neoplasm of endometrium (HCC) Malignant neoplasm of corpus uteri, except isthmus History of DVT of lower extremity Personal history of venous thrombosis and embolism documented in this encounter [facility] note* Diagnosis Endometrial cancer (HCC)- Primary Malignant neoplasm of corpus uteri, except isthmus documented [facility] [place] [facility]* Diagnosis Encounter for screening mammogram for breast cancer documented in this encounter [facility] note* Diagnosis Endometrial cancer (HCC) Malignant neoplasm of corpus uteri, except isthmus documented in this encounter [facility] note* Diagnosis Endometrial cancer (HCC)- Primary Malignant neoplasm of corpus uteri, except isthmus Encounter for monitoring cardiotoxic drug therapy Encounter for therapeutic drug monitoring Malignant neoplasm of endometrium (HCC)- Primary Malignant neoplasm of corpus uteri, except isthmus Recurrent cancer (HCC) documented in this encounter [facility] note* Diagnosis Malignant neoplasm of endometrium (HCC)- Primary Malignant neoplasm of corpus uteri, except isthmus Recurrent cancer (HCC) Discoloration of skin of lower leg Dyschromia, unspecified Leg swelling Swelling of limb Severe malnutrition (HCC) Nutritional marasmus [facility] Malignant neoplasm of endometrium (HCC)- Primary Malignant neoplasm of corpus uteri, except isthmus [facility] Work [facility]: Evaluation note* Diagnosis Malignant neoplasm of uterus, unspecified site (HCC)- Primary [facility] [place] [facility]* Diagnosis Endometrial cancer (HCC)- Primary Malignant neoplasm of corpus uteri, except isthmus History of uterine cancer Personal history of malignant neoplasm of other parts of uterus [facility] Diagnosis Malignant neoplasm of uterus, unspecified site (HCC)- Primary [facility] Diagnosis Malignant neoplasm of uterus, unspecified site (HCC)- Primary [facility] [place] [facility]* Diagnosis Acute right-sided low back pain without sciatica- Primary Malignant neoplasm of uterus, unspecified site (HCC) Acute pain of right shoulder [facility] [place] [facility]* Diagnosis Malignant neoplasm of endometrium (HCC) Malignant neoplasm of corpus uteri, except isthmus [facility] Diagnosis Endometrial cancer (HCC)- Primary Malignant neoplasm of corpus uteri, except isthmus [facility] Diagnosis Malignant neoplasm of endometrium (HCC)- Primary Malignant neoplasm of corpus uteri, except isthmus [facility] Diagnosis Endometrial cancer (HCC) Malignant neoplasm of corpus uteri, except isthmus Acquired hypothyroidism Unspecified hypothyroidism [facility] Diagnosis Malignant neoplasm of uterus, unspecified site (HCC)- Primary [facility] Diagnosis Malignant neoplasm of uterus, unspecified site (HCC)- Primary Chronic deep vein thrombosis (DVT) of proximal vein of left lower extremity (HCC) Malaise and fatigue Other malaise and fatigue [facility] Diagnosis Onset Date Resolution Status Acute dehydration acute Cancer, uterine acute Declining functional status acute Falls frequently acute Multiple sclerosis acute Weakness acute [facility] Work Phone: Evaluation note* Diagnosis Discoloration of skin of lower leg Dyschromia, unspecified Leg swelling Swelling of limb [facility] [place] [facility]* Diagnosis Onset Date Resolution Status Declining functional status acute Falls frequently acute Weakness acute Acute dehydration resolved Appetite loss acute Debility acute Depression acute Falls frequently acute Glaucoma acute Hypokalemia acute Hypothyroidism acute Recurrent deep vein thrombosis (DVT) acute Recurrent urinary tract infection acute Weakness acute Dehydration resolved [facility] Work Phone: Evaluation note* Diagnosis Cystitis- Primary Cystitis, unspecified Microscopic hematuria Detrusor overactivity Constipation, unspecified constipation type [facility] [place] [facility]* Diagnosis Malignant neoplasm of uterus, unspecified site (HCC)- Primary Severe malnutrition (HCC) Nutritional marasmus documented [facility] [place] [facility]* Diagnosis Detrusor overactivity- Primary documented in this encounter [facility] note* Diagnosis Radiation cystitis- Primary Irradiation cystitis OAB (overactive bladder) [N32.81] Hypertonicity of bladder Lesion of bladder Unspecified disorder of bladder [facility] [place] [facility]* Diagnosis Urge urinary incontinence- Primary Urge incontinence Urinary urgency Urgency of urination documented [facility] this [facility] [place] [facility]* Diagnosis Palliative care encounter- Primary documented in this encounter [facility] Work Phone: Evaluation note* Diagnosis Radiation cystitis- Primary Irradiation cystitis OAB (overactive bladder) [N32.81] 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 OAB (overactive bladder) Hypertonicity of bladder documented [facility] [place] note* Diagnosis Educational circumstance- Primary Radiation cystitis Irradiation cystitis OAB (overactive bladder) Hypertonicity of bladder documented in this encounter [facility] note* Diagnosis Preoperative examination- Primary Preoperative examination, unspecified Multiple sclerosis (HCC) Multiple sclerosis Radiation cystitis Irradiation cystitis History of uterine cancer Personal history of malignant neoplasm of other parts of uterus History of pulmonary embolism Personal history of pulmonary embolism History of DVT (deep vein thrombosis) Personal history of venous thrombosis and embolism Anxiety Anxiety state, unspecified Mixed hyperlipidemia Bilateral carotid artery stenosis Occlusion and stenosis of carotid artery without mention of cerebral infarction Acquired hypothyroidism Unspecified hypothyroidism Anemia, unspecified type Radiation cystitis Irradiation cystitis OAB (overactive bladder) Hypertonicity of bladder * Assessment & Plan Note - Kelley Stone APRN.CNP - 12/28/2023 3:40 PM EDT Associated Problem(s): Anemia Assessment: No current supplementation. Latest Reference Range & Units 09/27/23 14:42 Hemoglobin 11.5 - 15.5 g/dL 11.4 (L) Hematocrit 36.0 - 46.0 % 39.0 * Assessment & Plan Note - Kelley Stone APRN.CNP - 12/28/2023 3:39 PM EDT Associated Problem(s): Acquired hypothyroidism Assessment: Compliant with Rx. TSH Date Value Ref Range Status 07/09/2023 5.640 (H) 0.270 - 4.200 mIU/L Final * Assessment & Plan Note - Kelley Stone APRN.CNP - 12/28/2023 3:38 PM EDT Associated Problem(s): Bilateral carotid artery stenosis Assessment: Bilateral carotid stenosis on 2021 ultrasound; 20-39%. No CVA history. * Assessment & Plan Note - Kelley Stone APRN.CNP - 12/28/2023 3:36 PM EDT Associated Problem(s): Mixed hyperlipidemia Assessment: Compliant with Rx, following with PCP. * Assessment & Plan Note - Kelley Stone APRN.CNP - 12/28/2023 3:35 PM EDT Associated Problem(s): Anxiety Assessment: Currently stable on Rx. Pleasant and appropriate during today's visit. * Assessment & Plan Note - Kelley Stone APRN.CNP - 12/28/2023 3:33 PM EDT Associated Problem(s): Radiation cystitis Assessment: Urinary incontinence x 6 months. Patient has no feeling that she is going/needs to go. CT with moderate circumferential thickening of the wall suggestive of radiation cystitis. Symptoms refractory to medication. Scheduled for surgical intervention. * Assessment & Plan Note - Kelley Stone APRN.CNP - 12/28/2023 3:31 PM EDT Associated Problem(s): History of DVT (deep vein thrombosis) Assessment: H/O extensive RLE DVT during hospitalization. S/p thrombectomy with balloon angioplasty. Taking Xarelto, following with PCP/palliative care Dr. Terry Espino. Dr. Salmon's office sent letter to prescriber regarding perioperative instructions; will touch base with their office as no response scanned into [employer] at time of [facility] appointment. * Assessment & Plan Note - Kelley Stone APRN.CNP - 12/28/2023 3:28 PM EDT Associated Problem(s): History of pulmonary embolism Assessment: H/O PE in 2019 s/p IVC filter. Going through chemotherapy at the time. Currently on Xarelto, following with palliative care/PCP, Dr. Terry Espino. * Assessment & Plan Note - Kelley Stone APRN.CNP - 12/28/2023 3:22 PM EDT Associated Problem(s): History of uterine cancer Assessment: Dx in 2013, s/p hysterectomy with BSO, pelvic lymphadenectomy. Recurrence in 2016 in lymph node of left neck and bilateral pelvis; + adenocarcinoma. Chemotherapy and radiation at this time. Radiation again in 2021 to aortocaval lymphnodes. Chemo again in 2022 until May (discontinued due to side effects). Following with palliative care. * Assessment & Plan Note - Kelley Stone APRN.CNP - 12/27/2023 2:52 PM EDT Associated Problem(s): Multiple sclerosis (HCC) Assessment: Currently in remission, following with PCP. Patient denies any symptoms, no current Rx. 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 OAB (overactive bladder) Hypertonicity of bladder [facility] Diagnosis UTI symptoms- Primary Other symptoms involving urinary system [facility] Diagnosis Acute vulvitis- Primary Vaginitis and vulvovaginitis, unspecified Radiation cystitis Irradiation cystitis [facility]* Diagnosis Preoperative examination- Primary Preoperative examination, unspecified Multiple sclerosis (HCC) Multiple sclerosis Radiation cystitis Irradiation cystitis History of uterine cancer Personal history of malignant neoplasm of other parts of uterus History of pulmonary embolism Personal history of pulmonary embolism History of DVT (deep vein thrombosis) Personal history of venous thrombosis and embolism Anxiety Anxiety state, unspecified Mixed hyperlipidemia Bilateral carotid artery stenosis Occlusion and stenosis of carotid artery without mention of cerebral infarction Acquired hypothyroidism Unspecified hypothyroidism Anemia, unspecified type Malignant neoplasm of uterus, unspecified site (HCC) [facility]* Diagnosis Hip pain Pain in joint, pelvic region and thigh Preoperative examination- Primary Preoperative examination, unspecified Multiple sclerosis (HCC) Multiple sclerosis Radiation cystitis Irradiation cystitis History of uterine cancer Personal history of malignant neoplasm of other parts of uterus History of pulmonary embolism Personal history of pulmonary embolism History of DVT (deep vein thrombosis) Personal history of venous thrombosis and embolism Anxiety Anxiety state, unspecified Mixed hyperlipidemia Bilateral carotid artery stenosis Occlusion and stenosis of carotid artery without mention of cerebral infarction Acquired hypothyroidism Unspecified hypothyroidism Anemia, unspecified type [facility] Diagnosis UTI symptoms- Primary Other symptoms involving urinary system [facility] Diagnosis Palliative care encounter- Primary documented in this encounter [facility] Work Phone: Evaluation note* Diagnosis Dysuria- Primary Acute cystitis with hematuria documented in this encounter [facility] Work Phone: Evaluation note* Diagnosis Urinary tract infection with hematuria, site unspecified- Primary Constipation, unspecified constipation type Dizziness Dizziness and giddiness documented in this encounter [facility] Work Phone: Evaluation note* Diagnosis Bronchitis after surgery- Primary Acute cough documented in this encounter [facility] Work Phone: Evaluation note* Diagnosis Acute bronchitis, unspecified organism- Primary Acute cough documented in this encounter [facility] Work Phone: Evaluation note* Diagnosis Urinary tract infection with hematuria, site unspecified- Primary documented in this encounter [facility] Work Phone: History of Present illness Narrative* Patient presents with signs/symptoms consistent with dx of bal disorder, amb dysfunction: impaired gait, decreased LE strength, impaired bal. Would benefit from skilled PT to improve gait, increase LE strength, improve bal for return to PLOF: able to complete ADLs/IADLs with decreased risk of falling. Barriers to progress in PT include recent T10 fracture; however, rehab potential is good becausept is motivated to participate in PT. At eval, instructed pt in seated LE strengthening exercise program. No increased symptoms reported after eval. * Clinical Presentation: Stable and/or uncomplicated characteristics. * Level of Complexity: low * Problem List: activity limitations, ADLs/IADLs/self care skills, balance, decreased functional level, decreased knowledge of HEP, fall risk, gait/locomotion, pain, participation restrictions, posture, range of motion/joint mobility, sensory, strength and transfers. [facility]: [facility] of Present illness Narrative* Good form and tolerance to ex's performed today without significant pain increase. Pt needs close supervision/assist with standing balance/activity. Pt walks with very slow zaki and shorter steps. * Response to treatment: improved strength and improved balance. * Patient was able to complete today's treatment with some difficulty. [facility] Work Phone: History of Present illness Narrative* Required variable UE support to maintain bal during static bal activities on unstable surface. Added weight to LAQ, verbal cues for full ROM with seated ther ex. One LOB while amb in gym without AD, pt able to regain bal I. Cont progressing LE strengthening, bal activities as esdras for decreased fallrisk. * Response to treatment: no change in pain. [facility] Work Phone: history of Present illness Narrative* Good form and tolerance to ex's performed today without significant pain increase. * Response to treatment: improved strength. * Patient was able to complete today's treatment with some difficulty. [facility] Work Phone: history of Present illness Narrative* Pt has attended 6 visits of skilled PT for ambulatory dysfunction and abnormal gait consisting of evaluation, ther ex, and neuro re-education. Has benefited from PT objectively as evidenced by improved ability to complete mod tandem x 10 as part of 4 stage bal assessment; however, pt cont to be atincreased fall risk as evidenced of TUG of 15. Pt would benefit from cont skilled PT to further increase LE strength, improve bal for decreased fall risk. * Discussed with pt bringing up dizziness with MD at next appointment, discussing potential benefits of vestibular PT with MD as pt reports she feels dizziness is contributing to LOB. Pt verbalized understanding. Pt had 3 LOB while amb during session, able to recover with PT assist. * Response to treatment: no change in pain. * Patient was able to complete today's treatment with some difficulty. [facility] Work Phone: history of Present illness NarrativePatient identified by name & . Patient wore a mask during treatment d/t Covid-19 precautions. Treatment consisted of NMR activities and ther ex's. Patient required one sitting rest break due to back pain from standing ex's. Patient has difficulty keeping knees straight with hip extension andhip flexion ex's. Verbal and tactile cues used to assist with ex's technique. Patient with slight increased back pain at end of treatment. [facility] Work Phone: History of Present illness NarrativeDeferred performance of balance and gait training in large gym d/t reports of lightheadedness. Requires seated rest breaks intermittently throughout session d/t R sided back pain. Min A-Mod A with balance exercises to prevent LOB. Increased difficulty with dynamic balance with head turns horizontalgreater than vertical. Verbal cues for maintaining upright position and minimal use of UE with balance exercises. [facility] Work Phone: History of Present illness NarrativePatient identified by name & . Patient wore a mask during treatment d/t Covid-19 precautions. Treatment consisted of ther ex's and NMR activities. Patient required several rest breaks. Patientwith one slight LOB when ambulating back to treatment area, but able to stabilize patient with gaitbelt. Patient requires min/mod A for balance with standing ex's and NMR activities. [facility] Work Phone: Hospital Discharge instructions Additional Instructions Discharge home alone 09/19/2022, Home Health Care PT/OT/ST/GRACE.[facility] Work Phone: Hospital Discharge instructions* Attachments The following attachments cannot be sent through Care Everywhere. * Acute bronchitis (Moroccan) * Cough in adults (Moroccan) [facility]: Hospital Discharge instructions* Attachments The following attachments cannot be sent through Care Everywhere. * Urinary Tract Infection, Adult ED (Moroccan) [facility] Work Phone: Reason for referral (narrative)* Diagnostic Procedure Only (Routine) - Closed Specialty Diagnoses / Procedures Referred By Antony t Referred To Contact MOLECULAR & FUNCTIONAL IMAGING Diagnoses History of uterine cancer Endometrial cancer (HCC) Generalized abdominal pain Procedures NM PET/CT SKULL-THIGH SUBSEQUENT PET IMAGING CT ATTENUATION SKULL BASE MID-THIGH Racheal Saldana APRN.CNP [address] [place] [address] Molecular & Functional Imaging [address] [place], [place] [phone] Referral ID Status Reason Start Date Expiration Date V isits Requested Visits Authorized [id number] Closed Auto-Generate d Referral 11/21/2021 12/21/2022 1 1 [facility] for referral (narrative)* Diagnostic Procedure Only (Routine) - Pending Review Specialty Diagnoses / Procedures Referred By Contac t Referred To Contact MOLECULAR & FUNCTIONAL IMAGING Diagnoses Malignant neoplasm of endometrium (HCC) Procedures NM PET/CT SKULL-THIGH SUBSEQUENT PET IMAGING CT ATTENUATION SKULL BASE MID-THIGH Racheal Saldana APRN.CNP [address] [place] [id number] Molecular & Functional Imaging [address] [place], [place] [phone] Referral ID Status Reason Start Date Expiration Date Visits Requested Visits Authorized [id number] Pending Review Auto-Generat ed Referral 03/26/2022 04/25/2023 1 1 [facility] for referral (narrative)* Diagnostic Procedure Only (Routine) - Pending Review Specialty Diagnoses / Procedures Referred By Contac t Referred To Contact MOLECULAR & FUNCTIONAL IMAGING Diagnoses Malignant neoplasm of endometrium (HCC) Procedures NM PET/CT SKULL-THIGH INITIAL PET IMAGING CT ATTENUATION SKULL BASE MID-THIGH Naila Youngblood MD [address] [place] [address] Molecular & Functional Imaging [address] [place], [place] [phone] Referral ID Status Reason Start Date Expiration Date Visits Requested Visits Authorized [id number] Pending Review Auto-Generat ed Referral 05/04/2022 06/03/2023 1 1 [facility] for referral (narrative)* Diagnostic Procedure Only (Routine) - Pending Review Specialty Diagnoses / Procedures Referred By Contac t Referred To Contact MOLECULAR & FUNCTIONAL IMAGING Diagnoses Malignant neoplasm of endometrium (HCC) Procedures NM PET/CT SKULL-THIGH SUBSEQUENT PET IMAGING CT ATTENUATION SKULL BASE MID-THIGH Racheal Saldana APRN.CNP [address] [place] [address] Molecular & Functional Imaging [address] [place], [place] [phone] Referral ID Status Reason Start Date Expiration Date Visits Requested Visits Authorized [id number] [facility]20[facility] 07/19/2023 1 1 T [facility] for referral (narrative)* Diagnostic Procedure Only (Routine) - Pending Review Specialty Diagnoses / Procedures Referred By Contac t Referred To Contact MOLECULAR & FUNCTIONAL IMAGING Diagnoses Endometrial cancer (HCC) Procedures NM PET/CT SKULL-THIGH SUBSEQUENT PET IMAGING CT ATTENUATION SKULL BASE MID-THIGH Racheal Saldana APRN.CNP [address] [place] [address] Molecular & Functional Imaging [address] [place], [place] [phone] Referral ID Status Reason Start Date Expiration Date Visits Requested Visits Authorized [id number] [facility]ending [facility] 11/29/2022 12/29/2023 1 1 [facility] for referral (narrative)* Diagnostic Procedure Only (Routine) - Pending Review Specialty Diagnoses / Procedures Referred By Contac t Referred To Contact BR IMAGING Diagnoses Encounter for screening mammogram for breast cancer Procedures NILSA SCREENING SCREENING MAMMOGRAPHY BI 2-VIEW BREAST INC Rosmery Harley MD [address] [place] [address] Br Imaging [address] [place] [address] Referral ID Status Reason Start Date Expiration Date Visits Requested Visits Authorized [id number] Pending Review Auto-Generat ed Referral 12/02/2022 01/01/2024 1 1 [facility] for referral (narrative)* Diagnostic Procedure Only (Routine) - Closed Specialty Diagnoses / Procedures [facility] To Contact MOLECULAR & FUNCTIONAL IMAGING Diagnoses Endometrial cancer (HCC) Procedures NM PET/CT SKULL-THIGH SUBSEQUENT PET IMAGING CT ATTENUATION SKULL BASE MID-THIGH Racheal Saldana, APARTMENT MAINTENANCE MANAGER.ART PREPARATOR [address] [place] [address] Molecular & Functional Imaging [address] [place] [address] Referral ID Status Reason Start Date Expiration Date V isits Requested Visits Authorized [id number] Closed Auto-Generate d Referral 11/29/2022 12/29/2023 1 1 [facility] for referral (narrative)* Outpatient Procedure (Routine) - Authorized Specialty Diagnoses / Procedures Referred By [facility] Referred To Contact [facility] Diagnoses Endometrial cancer (HCC) Encounter for monitoring cardiotoxic drug therapy Procedures ECHO ECHO TTHRC R-T 2D W/WOM-MODE COMPL SPEC&[place] [address] [place] [address] [facility] [place] [address] [place] [address] Referral ID Status Reason Start Date Expiration Date Visits Requested Visits Authorized [id number] Authorized Auto-Generat ed Referral 02/25/2023 02/25/2024 1 1 [facility] for referral (narrative)* Diagnostic Procedure Only (Routine) - Authorized Specialty Diagnoses / Procedures Referred By Contac t Referred To Contact US IMAGING Diagnoses Discoloration of skin of lower leg Leg swelling Procedures US DVT LOWER LEFT DUP-SCAN XTR VEINS UNILATERAL/LIMITED STUDY Domenic Cramer, APARTMENT MAINTENANCE MANAGER.ART PREPARATOR [address] [place] [address] Us Imaging Referral ID Status Reason Start Date Expiration Date Visits Requested Visits Authorized [id number] Authorized Auto-Generat ed Referral 02/26/2023 03/27/2024 1 1 [facility] for referral (narrative)* Diagnostic Procedure Only (Routine) - Pending Review Specialty Diagnoses / Procedures Referred By Contac t Referred To Contact MOLECULAR & FUNCTIONAL IMAGING Diagnoses Malignant neoplasm of endometrium (HCC) Procedures NM PET/CT SKULL-THIGH SUBSEQUENT PET IMAGING CT ATTENUATION SKULL BASE MID-THIGH Racheal Saldana APARTMENT MAINTENANCE MANAGER.ART PREPARATOR [address] [place] [address] Molecular & Functional Imaging [address] [phone] Referral ID Status Reason Start Date Expiration Date Visits Requested Visits Authorized [id number] Pending Review Auto-Generat ed Referral 03/03/2023 04/01/2024 1 1 [facility] for referral (narrative)* Diagnostic Procedure Only (Routine) - Closed Specialty Diagnoses / Procedures Referred By Contac t Referred To Contact MOLECULAR & FUNCTIONAL IMAGING Diagnoses Malignant neoplasm of endometrium (HCC) Procedures NM PET/CT SKULL-THIGH SUBSEQUENT PET IMAGING CT ATTENUATION SKULL BASE MID-THIGH Racheal Saldana APARTMENT MAINTENANCE MANAGER.ART PREPARATOR [address] [place] [address] Molecular & Functional Imaging [address] [phone] Referral ID Status Reason Start Date Expiration Date V isits Requested Visits Authorized [id number] Closed Auto-Generate d Referral 03/03/2023 04/01/2024 1 1 [facility] for referral (narrative)* Diagnostic Procedure Only (Routine) - Closed Specialty Diagnoses / Procedures Referred By Antony francis Referred To Contact US IMAGING Diagnoses Discoloration of skin of lower leg Leg swelling Procedures US DVT LOWER LEFT DUP-SCAN XTR VEINS UNILATERAL/LIMITED STUDY Domenic Cramer APRN.ART PREPARATOR [address] [place] [address] [place] [id number] Referral ID Status Reason Start Date Expiration Date V isits Requested Visits Authorized [id number] Closed Auto-Generate d Referral 02/26/2023 03/27/2024 1 1 [facility] for referral (narrative)* Consultation (Routine) - Authorized Specialty Diagnoses / Procedures Referred By Antony francis Referred To Contact Family Medicine / Primary Care Diagnoses Urinary tract infection with hematuria, site unspecified Bahman Ann, [address] [place] [address] Department [place] [address] Referral ID Status Reason Start Date Expiration Date Visits Requested Visits Authorized [id number] Authorized Specialty Services Required 02/25/2024 02/24/2025 1 1 [facility] Work Phone: Reason for visit Narrative* Initial Evaluation . balance disorder, ambulatory dysfunction. * Referred by: Dr. Horn [facility] Work Phone: Reason for visit Narrative* Diagnostic Procedure Only (Routine) - Closed Specialty Diagnoses / Procedures Referred By Antony francis Referred To Contact MOLECULAR & FUNCTIONAL IMAGING Diagnoses History of uterine cancer Endometrial cancer (HCC) Generalized abdominal pain Procedures NM PET/CT SKULL-THIGH SUBSEQUENT PET IMAGING CT ATTENUATION SKULL BASE MID-THIGH Racheal Saldana APRN.ART PREPARATOR [address] [facility] [place] [address] Molecular & Functional Imaging [address] [phone] Referral ID Status Reason Start Date Expiration Date V isits Requested Visits Authorized [id number] Closed Auto-Generate d Referral 11/21/2021 12/21/2022 1 1 [facility] for visit Narrative* Diagnostic Procedure Only (Routine) - Closed Specialty Diagnoses / Procedures Referred By Contac t Referred To Contact MOLECULAR & FUNCTIONAL IMAGING Diagnoses Malignant neoplasm of endometrium (HCC) Procedures NM PET/CT SKULL-THIGH INITIAL PET IMAGING CT ATTENUATION SKULL BASE MID-THIGH Naila Youngblood MD [address] [place] [address] Molecular & Functional Imaging [address] [place] [address] Referral ID Status Reason Start Date Expiration Date V isits Requested Visits Authorized [id number] Closed Auto-Generate d Referral 05/04/2022 06/03/2023 1 1 [facility] for visit Narrative* Diagnostic Procedure Only (Routine) - Closed Specialty Diagnoses / Procedures Referred By Antony t Referred To Contact MOLECULAR & FUNCTIONAL IMAGING Diagnoses Endometrial cancer (HCC) Procedures NM PET/CT SKULL-THIGH SUBSEQUENT PET IMAGING CT ATTENUATION SKULL BASE MID-THIGH Racheal Saldana, APARTMENT MAINTENANCE MANAGER.ART PREPARATOR [address] [place] [phone] Molecular & Functional Imaging [address] [place] [address] Referral ID Status Reason Start Date Expiration Date V isits Requested Visits Authorized [id number] Closed Auto-Generate d Referral 11/29/2022 12/29/2023 1 1 [facility] for visit Narrative* Diagnostic Procedure Only (Routine) - Closed Specialty Diagnoses / Procedures Referred By Contac t Referred To Contact MOLECULAR & FUNCTIONAL IMAGING Diagnoses Malignant neoplasm of endometrium (HCC) Procedures NM PET/CT SKULL-THIGH SUBSEQUENT PET IMAGING CT ATTENUATION SKULL BASE MID-THIGH Racheal Saldana, APARTMENT MAINTENANCE MANAGER.ART PREPARATOR [address] [place] [id number] Molecular & Functional Imaging [address] [phone] Referral ID Status Reason Start Date Expiration Date V isits Requested Visits Authorized [id number] Closed Auto-Generate d Referral 03/03/2023 04/01/2024 1 1 [facility] for visit Narrative* Diagnostic Procedure Only (Routine) - Closed Specialty Diagnoses / Procedures Referred By Contac t Referred To Contact MOLECULAR & FUNCTIONAL IMAGING Diagnoses Malignant neoplasm of uterus, unspecified site (HCC) Procedures NM PET/CT SKULL-THIGH SUBSEQUENT PET IMAGING CT ATTENUATION SKULL BASE MID-THIGH Malathi Roberts MD [address] [place] [address] Molecular & Functional Imaging [address] [place] [address] Referral ID Status Reason Start Date Expiration Date V isits Requested Visits Authorized [id number] Closed Auto-Generate d Referral 09/13/2023 10/12/2024 1 1 [facility] Summary Purpose Family History No Family History Records Found Relationship Condition Age at Onset Recorded Date/T lisa Unknown Family History?No pe rtinent history Unknown September 08, 2018 4:16pm Family History?No pe rtinent history Unknown September 08, 2018 4:16pm Relationship Condition Age at Onset Recorded Date/T lisa Unknown Family History?No pe rtinent history Unknown September 08, 2018 5:16pm Family History?No pe rtinent history Unknown September 08, 2018 5:16pm Relationship Condition Age at Onset Recorded Date/T lisa Not Specified Dementia Unknown Cardiac disease Unknown Advance Directives No Advanced Directives Records FoundDocuments on File Type Date Recorded Patient Surveyor Expl anation Advance Directives and Living Will Power of Pit Recorder Documents on File Type Date Recorded Patient Surveyor Expl anation Advance Directive(s) Advance Directive(s) 04/11/2021 8:02 AM Advance Directive(s) 11/06/2020 8:41 AM Advance Directive(s) 08/17/2018 12:34 PM Advance Directive(s) 09/14/2014 9:00 PM Advance Directive(s) 09/12/2014 6:54 AM Documents on File Type Date Recorded Patient Surveyor Expl anation Advance Directive(s) Advance Directive(s) 04/11/2021 8:02 AM Advance Directive(s) 11/06/2020 8:41 AM Advance Directive(s) 08/17/2018 12:34 PM Advance Directive(s) 09/14/2014 9:00 PM Advance Directive(s) 09/12/2014 6:54 AM Documents on File Type Date Recorded Patient Surveyor Expl anation Advance Directive(s) 09/14/2014 9:00 PM Advance Directive(s) 09/12/2014 6:54 AM Documents on File Type Date Recorded Patient Surveyor Expl anation Advance Directive(s) 09/14/2014 9:00 PM Advance Directive(s) 09/12/2014 6:54 AM Advance Directive Response Recorded Date/ Time Living Will Yes August 31 6:24pm Power of Pit Recorder Yes August 31 2 023 6:24pm Name of Medical Power of Pit Recorder Mni Kennedy August 31, 2022 6:24pm Advance Directive Response Recorded Date/ Time Name of Medical Power of Pit Recorder Min Kennedy August 31, 2022 6:24pm Living Will Yes August 31 6:24pm Power of Pit Recorder Yes August 31 2 023 6:24pm Advance Directive Response Recorded Date/ Time Name of Medical Power of Pit Recorder Min Kennedy August 31, 2022 6:24pm Name of Medical Power of Pit Recorder Min Brent, son September 04, 2022 3:21pm Living Will Yes September 04 3:21pm Power of Pit Recorder Yes September 04 2 023 3:21pm Advance Directive Response Recorded Date/ Time Name of Medical Power of Pit Recorder Min Kennedy August 31, 2022 6:24pm Name of Medical Power of Pit Recorder Min Brent, rené September 04, 2022 3:21pm Name of Medical Power of Pit Recorder Min Kennedy, Rivera Noep September 07, 2022 8:19pm Living Will Yes September 07 8:19pm Power of Pit Recorder Yes September 07, 2 023 8:19pm Advance Directive Response Recorded Date/ Time Name of Medical Power of Pit Recorder Min Kennedy August 31, 2022 6:24pm Name of Medical Power of Pit Recorder Min Brent, son September 04, 2022 3:21pm Name of Medical Power of Pit Recorder Minmaribel Kennedy, Rivera Kennedy September 07, 2022 8:19pm Name of Medical Power of Pit Recorder Min Kennedy, rené September 14, 2022 4:17pm Living Will Yes September 14 4:17pm Power of Pit Recorder Yes September 14, 2022 4:17pm Advance Directive Response Recorded Date/ Time Living Will No March 12, 2023 3:11pm Power of Pit Recorder No March 12 3:11pm Advance Directive Response Recorded Date/ Time Name of Medical Power of Pit Recorder Min June 26, 2023 9:28pm Living Will Yes June 26 9:28pm Power of Pit Recorder Yes June 26, 2023 9:28pm Advance Directive Response Recorded Date/ Time Name of Medical Power of Pit Recorder Min June 27, 2023 12:34am Living Will Yes June 27 12:34am Power of Pit Recorder Yes June 27, 2023 12:34am Advance Directive Response Recorded Date/ Time Name of Medical Power of Pit Recorder Min and nina Osorio June 30, 2023 11:14am Living Will Yes June 30 11:14am Power of Pit Recorder Yes June 30, 2023 11:14am Name of Medical Power of Pit Recorder Min June 26, 2023 11:34pm Reason for Referral Specialty Diagnoses / Procedures Referred By Contac t Referred To Contact CT IMAGING Diagnoses Malignant neoplasm of endometrium (HCC) Procedures CT CHEST W IVCON CAT SCAN OF CHEST CONTRAST Mahsa Atkinson, HOLLY.ART PREPARATOR [address] [place] [address] Ct Imaging Referral ID Status Reason Start Date Expiration Date V isits Requested Visits Authorized [id number] Closed Auto-Generate d Referral 06/12/2021 07/12/2022 1 1 Specialty Diagnoses / Procedures Referred By Contac t Referred To Contact CT IMAGING Diagnoses Malignant neoplasm of endometrium (HCC) Procedures CT ABD/PEL W IVCON CT ABD & PELVIS W/CONTRAST Mahsa Atkinson APRN.ART PREPARATOR [address] [place] [address] Ct Imaging Referral ID Status Reason Start Date Expiration Date V isits Requested Visits Authorized [id number] Closed Auto-Generate d Referral 06/12/2021 07/12/2022 1 1 Specialty Diagnoses / Procedures Referred By Contac t Referred To Contact Radiation Oncology Diagnoses Malignant neoplasm of endometrium (HCC) Procedures RAD/ONC CONSULT OFFICE/OUTPATIENT [facility] 60-74 MINUTES Racheal Saldana, APARTMENT MAINTENANCE MANAGER.ART PREPARATOR [address] [id number] Referral ID Status Reason Start Date Expiration Date Visits Requested Visits Authorized [id number] Pending Review PCP Requested Referral 01/01/2022 01/01/2023 1 1 Specialty Diagnoses / Procedures Referred By Contac t Referred To Contact Urology Diagnoses Recurrent UTI Procedures CONSULT TO UROLOGY OFFICE/OUTPATIENT [facility] 60-74 MINUTES Rosmery Horn MD [address] [place] [address] Referral ID Status Reason Start Date Expiration Date Visits Requested Visits Authorized [id number] Pending Review PCP Requested Referral 01/30/2022 01/30/2023 1 1 Specialty Diagnoses / Procedures Referred By Contac t Referred To Contact Diagnoses Malignant neoplasm of uterus, unspecified site (HCC) Procedures CONSULT [place] [address] [place] [address] Referral ID Status Reason Start Date Expiration Date Visits Requested Visits Authorized [id number] Ref Not Required PCP Requested Referral 03/29/2023 03/28/2024 1 1 Specialty Diagnoses / Procedures Referred By Contac t Referred To Contact Diagnoses Radiation cystitis OAB (overactive bladder) Procedures REFER TO PACC - PRE ANESTHESIA CONSULTATION CLINIC OFFICE/OUTPATIENT [facility] MDM 60 MINUTES Franklin Salmon MD [address] [facility] [address] [place] [address] Referral ID Status Reason Start Date Expiration Date Visits Requested Visits Authorized [id number] Authorized PCP Requested Referral 11/19/2023 11/18/2024 1 1 Medications Administered Section Inactive Administered Medications - up to 3 most recent administrations Medication Order MAR Action Action Date Dose Rate Site cephALEXin 500 mg cap(s) (KEFLEX) 500 mg, ORAL, ONCE, 1 dose, On 03/23/22 at 1130, One tab prior to procedure, Please document the antimicrobial indication: Prophylaxis Given 03/23/2022 11:13 AM EDT 500 mg Oral Active Administered Medications - up to 3 most recent administrations Medication Order MAR Action Action Date Dose Rate Site fluorescein-benoxinate 0.25-0.4 % 1 Drop (FLURESS) 1 Drop, BOTH EYES, DIRECTED, Starting on Wed05/01/22 at 1100, Until Wed05/01/22 at 2259, Administer for applanation tonometry. In the event of a Fluress shortage, administer [place]-Fluor 1 drop into both eyes as directed for applanation tonometry Given 05/01/2022 11:00 AM EDT 1 Drop PHENYLephrine 2.5 % 1 Drop (AK-DILATE, JACK-SYNEPHRINE) 1 Drop, BOTH EYES, DIRECTED, Starting on Wed05/01/22 at 1100, Until Wed05/01/22 at 2259, Administer for dilation PROTECT FROM LIGHT Given 05/01/2022 11:00 AM EDT 1 Drop proparacaine 0.5 % 1 Drop (ALCAINE) 1 Drop, BOTH EYES, DIRECTED, Starting on Wed05/01/22 at 1100, Until Wed05/01/22 at 2259, Administer for pneumo tonometry, tonopen tonometry, or pachymetry. In the event of a proparacaine shortage, administer tetracaine 0.5% ophthalmic drops 1 drop in the left eye as directed for pneumo tonometry, tonopen tonometry, or pachymetry Given 05/01/2022 11:00 AM EDT 1 Drop tropicamide 1 % 1 Drop (MYDRIACYL) 1 Drop, BOTH EYES, DIRECTED, Starting on Wed05/01/22 at 1100, Until Wed05/01/22 at 2259, Administer for dilation Given 05/01/2022 11:00 AM EDT 1 Drop Inactive Administered Medications - up to 3 most recent administrations Medication Order MAR Action Action Date Dose Rate Site dexAMETHasone 10 mg/NS 50 mL (PYXIS) 10 mg ivpb (DECADRON) 10 mg, INTRAVENOUS, ONCE, 1 dose, On Wed03/12/23 at 1400, Give 30 minutes prior to chemotherapy. Refrigerate. New Bag/Syringe/Bottl e 03/12/2023 1:46 PM EDT 10 mg diphenhydrAMINE 50 mg injection (BENADRYL) 50 mg, INTRAVENOUS, ONCE, 1 dose, On Wed03/12/23 at 1400, Give 30 minutes prior to chemotherapy. Given 03/12/2023 1:46 PM EDT 50 mg diphenhydrAMINE 50 mg injection (BENADRYL) 50 mg, INTRAVENOUS, NEEDED, 1 dose, Starting on Wed03/12/23 at 1338, Until Wed03/12/23 at 1438, Administer per hypersensitivity/anaphylax is grading in nursing communication Given 03/12/2023 2:38 PM EDT 25 mg DOXOrubicin LIPOSOMAL 56.8 mg in D5W 303.4 mL (DOXIL, LIPODOX) 56.8 mg (40 mg/m2 1.42 m2 Treatment Plan BSA from Recorded weight), INTRAVENOUS, Administer over 1 Hours, ONCE, 1 dose, On Wed03/12/23 at 1400, DO NOT SHAKE BAG exp 159903/12/23 (room temp) Hazardous Chemotherapy Drug: Use appropriate PPE. Antineoplastic Irritant. Flush line with D5W before and after administration. New Bag/Syringe/Bottl e 03/12/2023 2:16 PM EDT 56.8 mg hydrocortisone sodium succinate (PF) 100 mg injection (Solu-CORTEF) 100 mg, INTRAVENOUS, NEEDED, 1 dose, Starting on Wed03/12/23 at 1338, Until Wed03/12/23 at 1437, Administer per hypersensitivity/anaphylax is grading in nursing communication Given 03/12/2023 2:37 PM EDT 100 mg NaCl 0.9% iv infusion 500-999 mL/hr, INTRAVENOUS, NEEDED, 1 dose, Starting on Wed03/12/23 at 1338, Until Wed03/12/23 at 1445, Hypotension (titrate to maintain SBP greater than 100), Administer per hypersensitivity/anaphylax is grading in nursing communication New Bag/Syringe/Bottl e 03/12/2023 2:38 PM EDT 999 mL/hr 999 mL/hr Inactive Administered Medications - up to 3 most recent administrations Medication Order MAR Action Action Date Dose Rate Site pembrolizumab 200 mg in NaCl 0.9% 66 mL (KEYTRUDA) 200 mg, INTRAVENOUS, Administer over 30 Minutes, ONCE, 1 dose, On Wed06/11/23 at 1030, exp 1000 06/15/23 (refrigerated) Administer with 0.2 micron filter. New Bag/Syringe/Bottle 06/11/2023 10:28 AM EDT 200 mg Chief Complaint and Reason for Visit Chief Complaint ANEMIA, RY Reason for Visit RY (acute kidney in jury) Anemia Debility Dehydration Generalized weakness Severe malnutrition Chief Complaint ANEMIA, RY ANEMIA, RY ANEMIA, RY ANEMIA, RY ANEMIA, RY ANEMIA, RY ANEMIA, RY Reason for Visit RY (acute kidney in jury) Anemia Debility Dehydration DVT (deep venous thrombosis) Generalized weakness Presence of IVC filter Severe malnutrition Chief Complaint ANEMIA, RY ANEMIA, RY ANEMIA, RY ANEMIA, RY ANEMIA, RY ANEMIA, RY ANEMIA, RY WEAKNESS Reason for Visit RY (acute kidney in jury) Anemia Debility Dehydration DVT (deep venous thrombosis) Generalized weakness Presence of IVC filter Severe malnutrition RY (acute kidney injury) Anemia Anxiety Debility Dehydration Depression DVT (deep venous thrombosis) Generalized weakness Glaucoma Hyperlipidemia Multiple sclerosis Chief Complaint ANEMIA, RY ANEMIA, RY ANEMIA, RY ANEMIA, RY ANEMIA, RY ANEMIA, RY ANEMIA, RY WEAKNESS DVT Deep vein thrombosis Deep vein thrombosis Deep vein thrombosis Deep vein thrombosis Reason for Visit Anemia Debility DVT (deep venous thrombosis) Generalized weakness Presence of IVC filter Severe malnutrition RY (acute kidney injury) Dehydration Anemia Anxiety Debility Depression DVT (deep venous thrombosis) Generalized weakness Glaucoma Hyperlipidemia Multiple sclerosis RY (acute kidney injury) Dehydration DVT (deep venous thrombosis) Generalized weakness Presence of IVC filter Chief Complaint ANEMIA, RY ANEMIA, RY ANEMIA, RY ANEMIA, RY ANEMIA, RY ANEMIA, RY ANEMIA, RY WEAKNESS DVT Deep vein thrombosis Deep vein thrombosis Deep vein thrombosis Deep vein thrombosis THROMBECTOMY Reason for Visit Anemia Debility DVT (deep venous thrombosis) Generalized weakness Presence of IVC filter Severe malnutrition RY (acute kidney injury) Dehydration Anemia Anxiety Debility Depression DVT (deep venous thrombosis) Generalized weakness Glaucoma Hyperlipidemia Multiple sclerosis RY (acute kidney injury) Dehydration DVT (deep venous thrombosis) Generalized weakness Presence of IVC filter Debility Depression Glaucoma Hyperlipidemia Hypokalemia Hypothyroidism Nausea Recurrent urinary tract infection Vitamin D deficiency Deep vein thrombosis, lower right extremity Weakness Chief Complaint ANEMIA, RY ANEMIA, RY ANEMIA, RY ANEMIA, RY ANEMIA, RY ANEMIA, RY ANEMIA, RY WEAKNESS DVT AM EKG Deep vein thrombosis Deep vein thrombosis AM EKG Deep vein thrombosis Deep vein thrombosis THROMBECTOMY [facility]ED [facility] Reason for Visit Anemia Debility DVT (deep venous thrombosis) Generalized weakness Presence of IVC filter Severe malnutrition RY (acute kidney injury) Dehydration Anemia Anxiety Debility Depression DVT (deep venous thrombosis) Generalized weakness Glaucoma Hyperlipidemia Multiple sclerosis RY (acute kidney injury) Dehydration DVT (deep venous thrombosis) Generalized weakness Presence of IVC filter Debility Depression Glaucoma Hyperlipidemia Hypokalemia Hypothyroidism Nausea Recurrent urinary tract infection Vitamin D deficiency Deep vein thrombosis, lower right extremity Weakness DVT (deep venous thrombosis) Chief Complaint chest pain Chief Complaint chest pain DEBILITY Reason for Visit Acute dehydration Cancer, uterine Declining functional status Falls frequently Multiple sclerosis Weakness Chief Complaint chest pain DEBILITY DEBILITY DEBILITY DEBILITY Reason for Visit Acute dehydration Cancer, uterine Declining functional status Falls frequently Multiple sclerosis Weakness Chief Complaint chest pain DEBILITY DEBILITY DEBILITY DEBILITY DEBILITY Pain in left leg Reason for Visit Declining functional status Falls frequently Weakness Acute dehydration Appetite loss Debility Depression Falls frequently Glaucoma Hypokalemia Hypothyroidism Recurrent deep vein thrombosis (DVT) Recurrent urinary tract infection Weakness Dehydration Chief Complaint DEBILITY DEBILITY DEBILITY DEBILITY DEBILITY Pain in left leg Reason for Visit Declining functional status Falls frequently Weakness Acute dehydration Appetite loss Debility Depression Falls frequently Glaucoma Hypokalemia Hypothyroidism Recurrent deep vein thrombosis (DVT) Recurrent urinary tract infection Weakness Dehydration Additional Source Comments INFORMATION SOURCE (unrecogn ized section and content) DATE CREATED AUTHOR 08/22/2018 [facility] DATE CREATED AUTHOR AUTHOR'S ORGANIZ ATION 12/15/2018 [facility] DATE CREATED AUTHOR AUTHOR'S ORGANIZ ATION 05/13/[address] [facility] DATE CREATED AUTHOR AUTHOR'S ORGANIZ ATION 04/27/2022 [facility] DATE CREATED AUTHOR AUTHOR'S ORGANIZ ATION 04/05/2023 [facility] DATE CREATED AUTHOR AUTHOR'S ORGANIZ ATION 04/17/[address] [facility] DATE CREATED AUTHOR AUTHOR'S ORGANIZ ATION 01/13/2024 [facility] DATE CREATED AUTHOR AUTHOR'S ORGANIZ ATION 02/10/2024 [facility] DATE CREATED AUTHOR AUTHOR'S ORGANIZ ATION 02/27/2024 [facility] DATE CREATED AUTHOR AUTHOR'S ORGANIZ ATION 03/16/2024 [facility] DATE CREATED AUTHOR AUTHOR'S ORGANIZ ATION 04/19/2024 [facility] DATE CREATED AUTHOR AUTHOR'S ORGANIZ ATION 11/01/2024 [facility] DATE CREATED AUTHOR AUTHOR'S ORGANIZ ATION 02/20/2025 [facility] DATE CREATED AUTHOR AUTHOR'S ORGANIZ ATION 03/03/2025 [facility] Reason for Visit (unrecogniz ed section and content) Reason Comments Consult Specialty Diagnoses / Procedures Referred By Contac t Referred To Contact Diagnoses Radiation cystitis OAB (overactive bladder) Procedures REFER TO PACC - PRE ANESTHESIA CONSULTATION CLINIC OFFICE/OUTPATIENT [facility] MDM 60 MINUTES Franklin Salmon MD [address] [address] Referral ID Status Reason Start Date Expiration Date V isits Requested Visits Authorized [id number] Closed PCP Requested Referral 11/19/2023 11/18/2024 1 1 Specialty Diagnoses / Procedures Referred By Contac t Referred To Contact Urology Diagnoses Recurrent UTI Procedures CONSULT TO UROLOGY OFFICE/OUTPATIENT [facility] 60-74 MINUTES Rosmery Horn MD [address] [place] [address] Referral ID Status Reason Start Date Expiration Date Visits Requested Visits Authorized [id number] Pending Review PCP Requested Referral 01/30/2022 01/30/2023 1 1 Reason Comments Cancer Specialty Diagnoses / Procedures Referred By Contac t Referred To Contact Radiation Oncology Diagnoses Malignant neoplasm of endometrium (HCC) Procedures RAD/ONC CONSULT OFFICE/OUTPATIENT [facility] 60-74 MINUTES Racheal Saldana, APARTMENT MAINTENANCE MANAGER.ART PREPARATOR [address] [place] [address] Referral ID Status Reason Start Date Expiration Date Visits Requested Visits Authorized [id number] Pending Review PCP Requested Referral 01/23/2022 01/23/2023 1 1 Status Reason Specialty Diagnoses / Procedures Referre d By Contact Referred To Contact Reason Comments Difficulty Walking Reason Comments Neuro Status Reason Specialty Diagnoses / Procedures Referre d By Contact Referred To Contact Reason Comments Weakness Reason Comments Fall Reason Comments Refill Request Reason Comments Radiology CT Specialty Diagnoses / Procedures Referred By Contlennox t Referred To Contact CT IMAGING Diagnoses Malignant neoplasm of endometrium (HCC) Procedures CT CHEST W IVCON CAT SCAN OF CHEST CONTRAST lydiaMahsa [email or web address] PREPARATOR [address] [place] [address] Ct Imaging Referral ID Status Reason Start Date Expiration Date V isits Requested Visits Authorized [id number] Closed Auto-Generate d Referral 06/12/2021 07/12/2022 1 1 Reason Comments Follow Up Reason Comments Primary Open Angle Glaucoma Follow Up Pa tient here as directed for intraocular pressure check Both Eyes. Referral ID Status Reason Start Date Expiration Date Visits Requested Visits Authorized [id number] Pending Review PCP Requested Referral 01/01/2022 01/01/2023 1 1 Reason Comments Follow Up Reason Comments Orders Reason Onset Date Comments Refill Request 01/16/2022 Reason Comments Established Patient Reason Comments Results Reason Comments Medication Follow-up Reason Comments Patient Education Nurse Visit Reason Comments Patient Update Reason Comments Opened In Error Reason Comments Post Radiation Treatment Follow Up Reason Comments Cystoscopy-1 Reason Comments Appointment Reason Comments UTI Fatigue x1 week Reason Comments Dizziness Reason Comments Cancer Cancer Reason Comments Diarrhea Reason Onset Date Comments Refill Request 07/30/2022 Reason Comments Follow Up 2 month follow up Reason Comments Medication Request Reason Comments Patient Update Patient Request Reason Comments Rectal Bleeding Diarrhea started yes terday with slight blood, vomiting on Wednesday, lightheadedness, no appetite , low back pain Uti - Re-occurring Reason Comments HH PT POC Reason Comments Appointment instructions PET SCAN - 2022 @200pm Appointment reminder call- spoke with patient- went over dietary guidelines; dress comfortable, directions to office Reason Comments Education Of Patient/family Care Coordination Reason Comments Care Coordination Follow up POC Reason Onset Date Comments Population Health Navigation Outreach 12/24/2022 HCC Reason Comments Appointment Instructions Appt reminder c all - spoke with patient - went over dietary guidelines; dress comfortable, directions to office. Reason Comments Care Coordination Reason Comments Chemotherapy Treatment Specialty Diagnoses / Procedures Referred By Antony francis Referred To Contact Diagnoses History of uterine cancer Procedures DOXORUBICIN INJ 10 MG Sent for coding 03/03 [employer] CPT lookup list [id number] No precert is required 03/03 [place] [address] [place] [address] [facility] [address] [place] [address] Referral ID Status Reason Start Date Expiration Date V isits Requested Visits Authorized [id number] Authorized 03/01/2023 08/29/2023 99 99 Reason Comments Appointment Patient Update Reason Comments Care Coordination POC Reason Comments Patient Update Patient Question Reason Comments Establish Care Reason Comments Pain Reason Comments 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 Worker - 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 Oral Chemothera py Medication (Lenvatinib) Reason Onset Date Comments SPP Oral Oncology/hematology - Treatment Referra l 06/03/2023 Lenvima 10mg/day Insurance Authorization 06/03/2023 Pending PA Submission Reason Comments Blood Draw (CVAD) Specialty Diagnoses / Procedures Referred By Contac t Referred To Contact Diagnoses Malignant neoplasm of uterus, unspecified site (HCC) Procedures INJ PEMBROLIZUMAB Domo Frazier, DO [address] [place] [facility] [address] [facility] [address] [place] [address] Referral ID Status Reason Start Date Expiration Date V isits Requested Visits Authorized [id number] Authorized 06/07/2023 12/07/2023 1 9 Reason Comments 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 Worker - Other C1D1 Post Treat ment Call (Keytruda/Lenvatinib) Reason Comments 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 Worker - Other Follow-up Reason Comments Fatigue Reason Comments Radiology US Specialty Diagnoses / Procedures Referred By Contac t Referred To Contact US IMAGING Diagnoses Discoloration of skin of lower leg Leg swelling Procedures US DVT LOWER LEFT DUP-SCAN XTR VEINS UNILATERAL/LIMITED STUDY Domenic Cramer, APARTMENT MAINTENANCE MANAGER.ART PREPARATOR [address] [place] [id number] [place] [id number] Referral ID Status Reason Start Date Expiration Date V isits Requested Visits Authorized [id number] Closed Auto-Generate d Referral 02/26/2023 03/27/2024 1 1 Reason Comments Medication Problem Reason Comments Procedure Cystoscopy Reason Comments UUI Reason Comments Schedule Surgery Reason Comments Establish Care Reason Comments Urinary Urgency Reason Comments Pre-Op Teaching Reason Comments Question Reason Comments Medication Question Reason Comments Xarelto Instructions Reason Comments [place] Reason Comments Radiology NM Reason Comments Follow-up Reason Comments UTI Frequency of urinati on and confusion x 2 weeks Reason Comments Dizziness Patient complains of dizziness for 3 days. Reports dizziness is worse with quick movements and feels off balance. Denies other symptoms. EKG done at . Reason Comments URI Cough, sore throat x 3 days Reason Comments Cough Cough x 1 week. Star haydee on Zithromax . My family wanted me to come in. Pt denies chest pain or SOB Reason Comments Female Dysuria Pt complains of dysu megan for approx three days. Pt states she has frequent urinary tract infections and completed a course of cipro approx 4 weeks ago then was treated for a yeast infection. Pt complains of burning on urination and vaginal burning and itching for three days. Denies hematuria. <item><item><item> Privacy Markings (unrecogniz ed section and content) Section Author: Kerry Encarnacion PROHIBITION ON REDISCLOSURE OF CONFIDENTIAL INFORMATION This notice accompanies a disclosure of information concerning a client made to you with the consent of such client. Section Author: Kerry Encarnacion PROHIBITION ON REDISCLOSURE OF CONFIDENTIAL INFORMATION This notice accompanies a disclosure of information concerning a client made to you with the consent of such client. Section Author: Kerry Encarnacion PROHIBITION ON REDISCLOSURE OF CONFIDENTIAL INFORMATION This notice accompanies a disclosure of information concerning a client made to you with the consent of such client. Source Comments (unrecognize d section and content) In the event this informatio n is protected by the Federal Confidentiality of Alcohol and Drug Abuse Patient Records regulations: The Federal rules restrict any use of the information to criminally investigate or prosecute any alcohol or drug abuse patient.[facility] SystemIn the event this information is protected by the Federal Confidentiality of Alcohol and Drug Abuse Patient Records regulations: The Federal rules restrict any use of the information to criminally investigate or prosecute any alcohol or drug abuse patient.[facility] SystemIn the event this information is protected by the Federal Confidentiality of Alcohol and Drug Abuse Patient Records regulations: The Federal rules restrict any use of the information to criminally investigate or prosecute any alcohol or drug abuse patient.[facility] SystemIn the event this information is protected by the Federal Confidentiality of Alcohol and Drug Abuse Patient Records regulations: The Federal rules restrict any use of the information to criminally investigate or prosecute any alcohol or drug abuse patient.[facility] SystemIn the event this information is protected by the Federal Confidentiality of Alcohol and Drug Abuse Patient Records regulations: The Federal rules restrict any use of the information to criminally investigate or prosecute any alcohol or drug abuse patient.[facility] SystemIn the event this information is protected by the Federal Confidentiality of Alcohol and Drug Abuse Patient Records regulations: The Federal rules restrict any use of the information to criminally investigate or prosecute any alcohol or drug abuse patient.[facility] SystemIn the event this information is protected by the Federal Confidentiality of Alcohol and Drug Abuse Patient Records regulations: The Federal rules restrict any use of the information to criminally investigate or prosecute any alcohol or drug abuse patient.[facility] SystemIn the event this information is protected by the Federal Confidentiality of Alcohol and Drug Abuse Patient Records regulations: The Federal rules restrict any use of the information to criminally investigate or prosecute any alcohol or drug abuse patient.[facility] SystemIn the event this information is protected by the Federal Confidentiality of Alcohol and Drug Abuse Patient Records regulations: The Federal rules restrict any use of the information to criminally investigate or prosecute any alcohol or drug abuse patient.[facility] SystemIn the event this information is protected by the Federal Confidentiality of Alcohol and Drug Abuse Patient Records regulations: The Federal rules restrict any use of the information to criminally investigate or prosecute any alcohol or drug abuse patient.[facility] SystemIn the event this information is protected by the Federal Confidentiality of Alcohol and Drug Abuse Patient Records regulations: The Federal rules restrict any use of the information to criminally investigate or prosecute any alcohol or drug abuse patient.[facility] SystemIn the event this information is protected by the Federal Confidentiality of Alcohol and Drug Abuse Patient Records regulations: The Federal rules restrict any use of the information to criminally investigate or prosecute any alcohol or drug abuse patient.[facility] SystemIn the event this information is protected by the Federal Confidentiality of Alcohol and Drug Abuse Patient Records regulations: The Federal rules restrict any use of the information to criminally investigate or prosecute any alcohol or drug abuse patient.[facility] SystemIn the event this information is protected by the Federal Confidentiality of Alcohol and Drug Abuse Patient Records regulations: The Federal rules restrict any use of the information to criminally investigate or prosecute any alcohol or drug abuse patient.[facility] SystemIn the event this information is protected by the Federal Confidentiality of Alcohol and Drug Abuse Patient Records regulations: The Federal rules restrict any use of the information to criminally investigate or prosecute any alcohol or drug abuse patient.[facility] SystemIn the event this information is protected by the Federal Confidentiality of Alcohol and Drug Abuse Patient Records regulations: The Federal rules restrict any use of the information to criminally investigate or prosecute any alcohol or drug abuse patient.[facility] SystemIn the event this information is protected by the Federal Confidentiality of Alcohol and Drug Abuse Patient Records regulations: The Federal rules restrict any use of the information to criminally investigate or prosecute any alcohol or drug abuse patient.[facility] SystemIn the event this information is protected by the Federal Confidentiality of Alcohol and Drug Abuse Patient Records regulations: The Federal rules restrict any use of the information to criminally investigate or prosecute any alcohol or drug abuse patient.[facility] SystemIn the event this information is protected by the Federal Confidentiality of Alcohol and Drug Abuse Patient Records regulations: The Federal rules restrict any use of the information to criminally investigate or prosecute any alcohol or drug abuse patient.[facility] SystemIn the event this information is protected by the Federal Confidentiality of Alcohol and Drug Abuse Patient Records regulations: The Federal rules restrict any use of the information to criminally investigate or prosecute any alcohol or drug abuse patient.[facility] SystemIn the event this information is protected by the Federal Confidentiality of Alcohol and Drug Abuse Patient Records regulations: The Federal rules restrict any use of the information to criminally investigate or prosecute any alcohol or drug abuse patient.[facility] SystemIn the event this information is protected by the Federal Confidentiality of Alcohol and Drug Abuse Patient Records regulations: The Federal rules restrict any use of the information to criminally investigate or prosecute any alcohol or drug abuse patient.[facility] SystemIn the event this information is protected by the Federal Confidentiality of Alcohol and Drug Abuse Patient Records regulations: The Federal rules restrict any use of the information to criminally investigate or prosecute any alcohol or drug abuse patient.[facility] SystemIn the event this information is protected by the Federal Confidentiality of Alcohol and Drug Abuse Patient Records regulations: The Federal rules restrict any use of the information to criminally investigate or prosecute any alcohol or drug abuse patient.[facility] SystemIn the event this information is protected by the Federal Confidentiality of Alcohol and Drug Abuse Patient Records regulations: The Federal rules restrict any use of the information to criminally investigate or prosecute any alcohol or drug abuse patient.[facility] SystemIn the event this information is protected by the Federal Confidentiality of Alcohol and Drug Abuse Patient Records regulations: The Federal rules restrict any use of the information to criminally investigate or prosecute any alcohol or drug abuse patient.[facility] SystemIn the event this information is protected by the Federal Confidentiality of Alcohol and Drug Abuse Patient Records regulations: The Federal rules restrict any use of the information to criminally investigate or prosecute any alcohol or drug abuse patient.[facility] SystemIn the event this information is protected by the Federal Confidentiality of Alcohol and Drug Abuse Patient Records regulations: The Federal rules restrict any use of the information to criminally investigate or prosecute any alcohol or drug abuse patient.[facility] SystemIn the event this information is protected by the Federal Confidentiality of Alcohol and Drug Abuse Patient Records regulations: The Federal rules restrict any use of the information to criminally investigate or prosecute any alcohol or drug abuse patient.[facility] SystemIn the event this information is protected by the Federal Confidentiality of Alcohol and Drug Abuse Patient Records regulations: The Federal rules restrict any use of the information to criminally investigate or prosecute any alcohol or drug abuse patient.[facility] SystemIn the event this information is protected by the Federal Confidentiality of Alcohol and Drug Abuse Patient Records regulations: The Federal rules restrict any use of the information to criminally investigate or prosecute any alcohol or drug abuse patient.[facility] SystemIn the event this information is protected by the Federal Confidentiality of Alcohol and Drug Abuse Patient Records regulations: The Federal rules restrict any use of the information to criminally investigate or prosecute any alcohol or drug abuse patient.[facility] SystemIn the event this information is protected by the Federal Confidentiality of Alcohol and Drug Abuse Patient Records regulations: The Federal rules restrict any use of the information to criminally investigate or prosecute any alcohol or drug abuse patient.[facility] SystemIn the event this information is protected by the Federal Confidentiality of Alcohol and Drug Abuse Patient Records regulations: The Federal rules restrict any use of the information to criminally investigate or prosecute any alcohol or drug abuse patient.[facility] SystemIn the event this information is protected by the Federal Confidentiality of Alcohol and Drug Abuse Patient Records regulations: The Federal rules restrict any use of the information to criminally investigate or prosecute any alcohol or drug abuse patient.[facility] SystemIn the event this information is protected by the Federal Confidentiality of Alcohol and Drug Abuse Patient Records regulations: The Federal rules restrict any use of the information to criminally investigate or prosecute any alcohol or drug abuse patient.[facility] SystemIn the event this information is protected by the Federal Confidentiality of Alcohol and Drug Abuse Patient Records regulations: The Federal rules restrict any use of the information to criminally investigate or prosecute any alcohol or drug abuse patient.[facility] SystemIn the event this information is protected by the Federal Confidentiality of Alcohol and Drug Abuse Patient Records regulations: The Federal rules restrict any use of the information to criminally investigate or prosecute any alcohol or drug abuse patient.[facility] SystemIn the event this information is protected by the Federal Confidentiality of Alcohol and Drug Abuse Patient Records regulations: The Federal rules restrict any use of the information to criminally investigate or prosecute any alcohol or drug abuse patient.[facility] SystemIn the event this information is protected by the Federal Confidentiality of Alcohol and Drug Abuse Patient Records regulations: The Federal rules restrict any use of the information to criminally investigate or prosecute any alcohol or drug abuse patient.[facility] SystemIn the event this information is protected by the Federal Confidentiality of Alcohol and Drug Abuse Patient Records regulations: The Federal rules restrict any use of the information to criminally investigate or prosecute any alcohol or drug abuse patient.[facility] SystemIn the event this information is protected by the Federal Confidentiality of Alcohol and Drug Abuse Patient Records regulations: The Federal rules restrict any use of the information to criminally investigate or prosecute any alcohol or drug abuse patient.[facility] SystemIn the event this information is protected by the Federal Confidentiality of Alcohol and Drug Abuse Patient Records regulations: The Federal rules restrict any use of the information to criminally investigate or prosecute any alcohol or drug abuse patient.[facility] SystemIn the event this information is protected by the Federal Confidentiality of Alcohol and Drug Abuse Patient Records regulations: The Federal rules restrict any use of the information to criminally investigate or prosecute any alcohol or drug abuse patient.[facility] SystemIn the event this information is protected by the Federal Confidentiality of Alcohol and Drug Abuse Patient Records regulations: The Federal rules restrict any use of the information to criminally investigate or prosecute any alcohol or drug abuse patient.[facility] SystemIn the event this information is protected by the Federal Confidentiality of Alcohol and Drug Abuse Patient Records regulations: The Federal rules restrict any use of the information to criminally investigate or prosecute any alcohol or drug abuse patient.[facility] SystemIn the event this information is protected by the Federal Confidentiality of Alcohol and Drug Abuse Patient Records regulations: The Federal rules restrict any use of the information to criminally investigate or prosecute any alcohol or drug abuse patient.[facility] SystemIn the event this information is protected by the Federal Confidentiality of Alcohol and Drug Abuse Patient Records regulations: The Federal rules restrict any use of the information to criminally investigate or prosecute any alcohol or drug abuse patient.[facility] SystemIn the event this information is protected by the Federal Confidentiality of Alcohol and Drug Abuse Patient Records regulations: The Federal rules restrict any use of the information to criminally investigate or prosecute any alcohol or drug abuse patient.[facility]In the event this information is protected by the Federal Confidentiality of Alcohol and Drug Abuse Patient Records regulations: The Federal rules restrict any use of the information to criminally investigate or prosecute any alcohol or drug abuse patient.[facility] SystemIn the event this information is protected by the Federal Confidentiality of Alcohol and Drug Abuse Patient Records regulations: The Federal rules restrict any use of the information to criminally investigate or prosecute any alcohol or drug abuse patient.[facility] SystemIn the event this information is protected by the Federal Confidentiality of Alcohol and Drug Abuse Patient Records regulations: The Federal rules restrict any use of the information to criminally investigate or prosecute any alcohol or drug abuse patient.[facility] SystemIn the event this information is protected by the Federal Confidentiality of Alcohol and Drug Abuse Patient Records regulations: The Federal rules restrict any use of the information to criminally investigate or prosecute any alcohol or drug abuse patient.[facility] SystemIn the event this information is protected by the Federal Confidentiality of Alcohol and Drug Abuse Patient Records regulations: The Federal rules restrict any use of the information to criminally investigate or prosecute any alcohol or drug abuse patient.[facility] SystemIn the event this information is protected by the Federal Confidentiality of Alcohol and Drug Abuse Patient Records regulations: The Federal rules restrict any use of the information to criminally investigate or prosecute any alcohol or drug abuse patient.[facility] SystemIn the event this information is protected by the Federal Confidentiality of Alcohol and Drug Abuse Patient Records regulations: The Federal rules restrict any use of the information to criminally investigate or prosecute any alcohol or drug abuse patient.[facility] SystemIn the event this information is protected by the Federal Confidentiality of Alcohol and Drug Abuse Patient Records regulations: The Federal rules restrict any use of the information to criminally investigate or prosecute any alcohol or drug abuse patient.[facility] SystemIn the event this information is protected by the Federal Confidentiality of Alcohol and Drug Abuse Patient Records regulations: The Federal rules restrict any use of the information to criminally investigate or prosecute any alcohol or drug abuse patient.[facility] SystemIn the event this information is protected by the Federal Confidentiality of Alcohol and Drug Abuse Patient Records regulations: The Federal rules restrict any use of the information to criminally investigate or prosecute any alcohol or drug abuse patient.[facility] SystemIn the event this information is protected by the Federal Confidentiality of Alcohol and Drug Abuse Patient Records regulations: The Federal rules restrict any use of the information to criminally investigate or prosecute any alcohol or drug abuse patient.[facility]In the event this information is protected by the Federal Confidentiality of Alcohol and Drug Abuse Patient Records regulations: The Federal rules restrict any use of the information to criminally investigate or prosecute any alcohol or drug abuse patient.[facility]In the event this information is protected by the Federal Confidentiality of Alcohol and Drug Abuse Patient Records regulations: The Federal rules restrict any use of the information to criminally investigate or prosecute any alcohol or drug abuse patient.[facility] SystemIn the event this information is protected by the Federal Confidentiality of Alcohol and Drug Abuse Patient Records regulations: The Federal rules restrict any use of the information to criminally investigate or prosecute any alcohol or drug abuse patient.[facility] SystemIn the event this information is protected by the Federal Confidentiality of Alcohol and Drug Abuse Patient Records regulations: The Federal rules restrict any use of the information to criminally investigate or prosecute any alcohol or drug abuse patient.[facility] SystemIn the event this information is protected by the Federal Confidentiality of Alcohol and Drug Abuse Patient Records regulations: The Federal rules restrict any use of the information to criminally investigate or prosecute any alcohol or drug abuse patient.[facility] SystemIn the event this information is protected by the Federal Confidentiality of Alcohol and Drug Abuse Patient Records regulations: The Federal rules restrict any use of the information to criminally investigate or prosecute any alcohol or drug abuse patient.[facility] SystemIn the event this information is protected by the Federal Confidentiality of Alcohol and Drug Abuse Patient Records regulations: The Federal rules restrict any use of the information to criminally investigate or prosecute any alcohol or drug abuse patient.[facility] SystemIn the event this information is protected by the Federal Confidentiality of Alcohol and Drug Abuse Patient Records regulations: The Federal rules restrict any use of the information to criminally investigate or prosecute any alcohol or drug abuse patient.[facility] SystemIn the event this information is protected by the Federal Confidentiality of Alcohol and Drug Abuse Patient Records regulations: The Federal rules restrict any use of the information to criminally investigate or prosecute any alcohol or drug abuse patient.[facility] SystemIn the event this information is protected by the Federal Confidentiality of Alcohol and Drug Abuse Patient Records regulations: The Federal rules restrict any use of the information to criminally investigate or prosecute any alcohol or drug abuse patient.[facility] SystemIn the event this information is protected by the Federal Confidentiality of Alcohol and Drug Abuse Patient Records regulations: The Federal rules restrict any use of the information to criminally investigate or prosecute any alcohol or drug abuse patient.[facility]In the event this information is protected by the Federal Confidentiality of Alcohol and Drug Abuse Patient Records regulations: The Federal rules restrict any use of the information to criminally investigate or prosecute any alcohol or drug abuse patient.[facility] SystemIn the event this information is protected by the Federal Confidentiality of Alcohol and Drug Abuse Patient Records regulations: The Federal rules restrict any use of the information to criminally investigate or prosecute any alcohol or drug abuse patient.[facility] SystemIn the event this information is protected by the Federal Confidentiality of Alcohol and Drug Abuse Patient Records regulations: The Federal rules restrict any use of the information to criminally investigate or prosecute any alcohol or drug abuse patient.[facility] SystemIn the event this information is protected by the Federal Confidentiality of Alcohol and Drug Abuse Patient Records regulations: The Federal rules restrict any use of the information to criminally investigate or prosecute any alcohol or drug abuse patient.[facility] SystemIn the event this information is protected by the Federal Confidentiality of Alcohol and Drug Abuse Patient Records regulations: The Federal rules restrict any use of the information to criminally investigate or prosecute any alcohol or drug abuse patient.[facility] SystemIn the event this information is protected by the Federal Confidentiality of Alcohol and Drug Abuse Patient Records regulations: The Federal rules restrict any use of the information to criminally investigate or prosecute any alcohol or drug abuse patient.[facility]In the event this information is protected by the Federal Confidentiality of Alcohol and Drug Abuse Patient Records regulations: The Federal rules restrict any use of the information to criminally investigate or prosecute any alcohol or drug abuse patient.[facility] SystemIn the event this information is protected by the Federal Confidentiality of Alcohol and Drug Abuse Patient Records regulations: The Federal rules restrict any use of the information to criminally investigate or prosecute any alcohol or drug abuse patient.[facility]In the event this information is protected by the Federal Confidentiality of Alcohol and Drug Abuse Patient Records regulations: The Federal rules restrict any use of the information to criminally investigate or prosecute any alcohol or drug abuse patient.[facility] SystemIn the event this information is protected by the Federal Confidentiality of Alcohol and Drug Abuse Patient Records regulations: The Federal rules restrict any use of the information to criminally investigate or prosecute any alcohol or drug abuse patient.[facility]In the event this information is protected by the Federal Confidentiality of Alcohol and Drug Abuse Patient Records regulations: The Federal rules restrict any use of the information to criminally investigate or prosecute any alcohol or drug abuse patient.[facility]In the event this information is protected by the Federal Confidentiality of Alcohol and Drug Abuse Patient Records regulations: The Federal rules restrict any use of the information to criminally investigate or prosecute any alcohol or drug abuse patient.[facility]In the event this information is protected by the Federal Confidentiality of Alcohol and Drug Abuse Patient Records regulations: The Federal rules restrict any use of the information to criminally investigate or prosecute any alcohol or drug abuse patient.[facility] SystemIn the event this information is protected by the Federal Confidentiality of Alcohol and Drug Abuse Patient Records regulations: The Federal rules restrict any use of the information to criminally investigate or prosecute any alcohol or drug abuse patient.[facility] SystemIn the event this information is protected by the Federal Confidentiality of Alcohol and Drug Abuse Patient Records regulations: The Federal rules restrict any use of the information to criminally investigate or prosecute any alcohol or drug abuse patient.[facility] SystemIn the event this information is protected by the Federal Confidentiality of Alcohol and Drug Abuse Patient Records regulations: The Federal rules restrict any use of the information to criminally investigate or prosecute any alcohol or drug abuse patient.[facility] SystemIn the event this information is protected by the Federal Confidentiality of Alcohol and Drug Abuse Patient Records regulations: The Federal rules restrict any use of the information to criminally investigate or prosecute any alcohol or drug abuse patient.[facility] SystemIn the event this information is protected by the Federal Confidentiality of Alcohol and Drug Abuse Patient Records regulations: The Federal rules restrict any use of the information to criminally investigate or prosecute any alcohol or drug abuse patient.[facility] SystemIn the event this information is protected by the Federal Confidentiality of Alcohol and Drug Abuse Patient Records regulations: The Federal rules restrict any use of the information to criminally investigate or prosecute any alcohol or drug abuse patient.[facility] SystemIn the event this information is protected by the Federal Confidentiality of Alcohol and Drug Abuse Patient Records regulations: The Federal rules restrict any use of the information to criminally investigate or prosecute any alcohol or drug abuse patient.[facility] SystemIn the event this information is protected by the Federal Confidentiality of Alcohol and Drug Abuse Patient Records regulations: The Federal rules restrict any use of the information to criminally investigate or prosecute any alcohol or drug abuse patient.[facility]In the event this information is protected by the Federal Confidentiality of Alcohol and Drug Abuse Patient Records regulations: The Federal rules restrict any use of the information to criminally investigate or prosecute any alcohol or drug abuse patient.[facility]In the event this information is protected by the Federal Confidentiality of Alcohol and Drug Abuse Patient Records regulations: The Federal rules restrict any use of the information to criminally investigate or prosecute any alcohol or drug abuse patient.[facility]In the event this information is protected by the Federal Confidentiality of Alcohol and Drug Abuse Patient Records regulations: The Federal rules restrict any use of the information to criminally investigate or prosecute any alcohol or drug abuse patient.[facility]In the event this information is protected by the Federal Confidentiality of Alcohol and Drug Abuse Patient Records regulations: The Federal rules restrict any use of the information to criminally investigate or prosecute any alcohol or drug abuse patient.[facility]In the event this information is protected by the Federal Confidentiality of Alcohol and Drug Abuse Patient Records regulations: The Federal rules restrict any use of the information to criminally investigate or prosecute any alcohol or drug abuse patient.[facility]In the event this information is protected by the Federal Confidentiality of Alcohol and Drug Abuse Patient Records regulations: The Federal rules restrict any use of the information to criminally investigate or prosecute any alcohol or drug abuse patient.[facility]In the event this information is protected by the Federal Confidentiality of Alcohol and Drug Abuse Patient Records regulations: The Federal rules restrict any use of the information to criminally investigate or prosecute any alcohol or drug abuse patient.[facility]In the event this information is protected by the Federal Confidentiality of Alcohol and Drug Abuse Patient Records regulations: The Federal rules restrict any use of the information to criminally investigate or prosecute any alcohol or drug abuse patient.[facility]In the event this information is protected by the Federal Confidentiality of Alcohol and Drug Abuse Patient Records regulations: The Federal rules restrict any use of the information to criminally investigate or prosecute any alcohol or drug abuse patient.[facility]In the event this information is protected by the Federal Confidentiality of Alcohol and Drug Abuse Patient Records regulations: The Federal rules restrict any use of the information to criminally investigate or prosecute any alcohol or drug abuse patient.[facility]In the event this information is protected by the Federal Confidentiality of Alcohol and Drug Abuse Patient Records regulations: The Federal rules restrict any use of the information to criminally investigate or prosecute any alcohol or drug abuse patient.[facility]In the event this information is protected by the Federal Confidentiality of Alcohol and Drug Abuse Patient Records regulations: The Federal rules restrict any use of the information to criminally investigate or prosecute any alcohol or drug abuse patient.[facility]In the event this information is protected by the Federal Confidentiality of Alcohol and Drug Abuse Patient Records regulations: The Federal rules restrict any use of the information to criminally investigate or prosecute any alcohol or drug abuse patient.[facility]In the event this information is protected by the Federal Confidentiality of Alcohol and Drug Abuse Patient Records regulations: The Federal rules restrict any use of the information to criminally investigate or prosecute any alcohol or drug abuse patient.[facility]In the event this information is protected by the Federal Confidentiality of Alcohol and Drug Abuse Patient Records regulations: The Federal rules restrict any use of the information to criminally investigate or prosecute any alcohol or drug abuse patient.[facility]In the event this information is protected by the Federal Confidentiality of Alcohol and Drug Abuse Patient Records regulations: The Federal rules restrict any use of the information to criminally investigate or prosecute any alcohol or drug abuse patient.[facility]In the event this information is protected by the Federal Confidentiality of Alcohol and Drug Abuse Patient Records regulations: The Federal rules restrict any use of the information to criminally investigate or prosecute any alcohol or drug abuse patient.[facility]In the event this information is protected by the Federal Confidentiality of Alcohol and Drug Abuse Patient Records regulations: The Federal rules restrict any use of the information to criminally investigate or prosecute any alcohol or drug abuse patient.[facility]In the event this information is protected by the Federal Confidentiality of Alcohol and Drug Abuse Patient Records regulations: The Federal rules restrict any use of the information to criminally investigate or prosecute any alcohol or drug abuse patient.[facility]In the event this information is protected by the Federal Confidentiality of Alcohol and Drug Abuse Patient Records regulations: The Federal rules restrict any use of the information to criminally investigate or prosecute any alcohol or drug abuse patient.[facility]In the event this information is protected by the Federal Confidentiality of Alcohol and Drug Abuse Patient Records regulations: The Federal rules restrict any use of the information to criminally investigate or prosecute any alcohol or drug abuse patient.[facility]In the event this information is protected by the Federal Confidentiality of Alcohol and Drug Abuse Patient Records regulations: The Federal rules restrict any use of the information to criminally investigate or prosecute any alcohol or drug abuse patient.[facility]In the event this information is protected by the Federal Confidentiality of Alcohol and Drug Abuse Patient Records regulations: The Federal rules restrict any use of the information to criminally investigate or prosecute any alcohol or drug abuse patient.[facility]In the event this information is protected by the Federal Confidentiality of Alcohol and Drug Abuse Patient Records regulations: The Federal rules restrict any use of the information to criminally investigate or prosecute any alcohol or drug abuse patient.[facility]In the event this information is protected by the Federal Confidentiality of Alcohol and Drug Abuse Patient Records regulations: The Federal rules restrict any use of the information to criminally investigate or prosecute any alcohol or drug abuse patient.[facility]In the event this information is protected by the Federal Confidentiality of Alcohol and Drug Abuse Patient Records regulations: The Federal rules restrict any use of the information to criminally investigate or prosecute any alcohol or drug abuse patient.[facility]In the event this information is protected by the Federal Confidentiality of Alcohol and Drug Abuse Patient Records regulations: The Federal rules restrict any use of the information to criminally investigate or prosecute any alcohol or drug abuse patient.[facility]In the event this information is protected by the Federal Confidentiality of Alcohol and Drug Abuse Patient Records regulations: The Federal rules restrict any use of the information to criminally investigate or prosecute any alcohol or drug abuse patient.[facility]In the event this information is protected by the Federal Confidentiality of Alcohol and Drug Abuse Patient Records regulations: The Federal rules restrict any use of the information to criminally investigate or prosecute any alcohol or drug abuse patient.[facility]In the event this information is protected by the Federal Confidentiality of Alcohol and Drug Abuse Patient Records regulations: The Federal rules restrict any use of the information to criminally investigate or prosecute any alcohol or drug abuse patient.[facility]In the event this information is protected by the Federal Confidentiality of Alcohol and Drug Abuse Patient Records regulations: The Federal rules restrict any use of the information to criminally investigate or prosecute any alcohol or drug abuse patient.[facility] SystemIn the event this information is protected by the Federal Confidentiality of Alcohol and Drug Abuse Patient Records regulations: The Federal rules restrict any use of the information to criminally investigate or prosecute any alcohol or drug abuse patient.[facility] SystemIn the event this information is protected by the Federal Confidentiality of Alcohol and Drug Abuse Patient Records regulations: The Federal rules restrict any use of the information to criminally investigate or prosecute any alcohol or drug abuse patient.[facility] SystemIn the event this information is protected by the Federal Confidentiality of Alcohol and Drug Abuse Patient Records regulations: The Federal rules restrict any use of the information to criminally investigate or prosecute any alcohol or drug abuse patient.[facility] SystemIn the event this information is protected by the Federal Confidentiality of Alcohol and Drug Abuse Patient Records regulations: The Federal rules restrict any use of the information to criminally investigate or prosecute any alcohol or drug abuse patient.[facility] SystemIn the event this information is protected by the Federal Confidentiality of Alcohol and Drug Abuse Patient Records regulations: The Federal rules restrict any use of the information to criminally investigate or prosecute any alcohol or drug abuse patient.[facility] SystemIn the event this information is protected by the Federal Confidentiality of Alcohol and Drug Abuse Patient Records regulations: The Federal rules restrict any use of the information to criminally investigate or prosecute any alcohol or drug abuse patient.[facility] SystemIn the event this information is protected by the Federal Confidentiality of Alcohol and Drug Abuse Patient Records regulations: The Federal rules restrict any use of the information to criminally investigate or prosecute any alcohol or drug abuse patient.[facility] SystemIn the event this information is protected by the Federal Confidentiality of Alcohol and Drug Abuse Patient Records regulations: The Federal rules restrict any use of the information to criminally investigate or prosecute any alcohol or drug abuse patient.[facility] SystemIn the event this information is protected by the Federal Confidentiality of Alcohol and Drug Abuse Patient Records regulations: The Federal rules restrict any use of the information to criminally investigate or prosecute any alcohol or drug abuse patient.[facility] Care Teams (unrecognized sec tion and content) Certified Meeting Professional Relationship Specialty Start Date End Date Rosmery Horn MD [address] [place] [address] PCP - General Internal Medicine 12/16/18 Cr Gibbs [address] [phone] Physician Internal Medicine 11/19/16 Nenita Solorio MD, [address] [place], [place] [id number] Physician Radiation Oncology 03/26/17 Certified Meeting Professional Relationship Specialty Start Date End Date Rosmery Horn MD [address] [place], [place] [id number] PCP - General Internal Medicine 12/16/18 Cr Gibbs R [address] [place] [address] Physician Internal Medicine 11/19/16 Nenita Solorio MD, [address] [place] [address] Physician Radiation Oncology 03/26/17 Certified Meeting Professional Relationship Specialty Start Date End Date Rosmery Horn MD [address] [place] [address] PCP - General Internal Medicine 12/16/18 Cr Gibbs R [address] [place] [address] Physician Internal Medicine 11/19/16 Nenita Solorio MD, [address] [place] [address] Physician Radiation Oncology 03/26/17 Certified Meeting Professional Relationship Specialty Start Date End Date Rosmery Horn MD [address] [place] [address] PCP - General Internal Medicine 12/16/18 Cr Gibbs [address] [place] [address] Physician Internal Medicine 11/19/16 Nenita Solorio MD, [address] [place] [address] Physician Radiation Oncology 03/26/17 Certified Meeting Professional Relationship Specialty Start Date End Date Rosmery Horn MD [address] [place] [address] PCP - General Internal Medicine 12/16/18 Thomae, Cr R [address] [place] [address] Physician Internal Medicine 11/19/16 Nenita Solorio MD, [address] [place] [address] Physician Radiation Oncology 03/26/17 Certified Meeting Professional Relationship Specialty Start Date End Date Rosmery Horn MD [address] [place] [address] PCP - General Internal Medicine 12/16/18 Cr Gibbs [address] [place] [address] Physician Internal Medicine 11/19/16 Nenita Solorio MD, [address] [place] [address] Physician Radiation Oncology 03/26/17 Certified Meeting Professional Relationship Specialty Start Date End Date Rosmery Horn MD [address] [place] [address] PCP - General Internal Medicine 12/16/18 Cr Gibbs [address] [place] [address] Physician Internal Medicine 11/19/16 Nenita Solorio MD, [address] [place] [address] Physician Radiation Oncology 03/26/17 Certified Meeting Professional Relationship Specialty Start Date End Date Rosmery Horn MD [address] [place] [address] PCP - General Internal Medicine 12/16/18 Cr Gibbs [address] [place] [address] Physician Internal Medicine 11/19/16 Nenita Solorio MD, [address] [place] [address] Physician Radiation Oncology 03/26/17 Certified Meeting Professional Relationship Specialty Start Date End Date Rosmery Horn MD [address] [place] [address] PCP - General Internal Medicine 12/16/18 Cr Gibbs R [address] [place] [address] Physician Internal Medicine 11/19/16 Nenita Solorio MD, [address] [place] [address] Physician Radiation Oncology 03/26/17 Certified Meeting Professional Relationship Specialty Start Date End Date Rosmery Horn MD [address] [place] [address] PCP - General Internal Medicine 12/16/18 Cr Gibbs R [address] [place] [address] Physician Internal Medicine 11/19/16 Nenita Solorio MD, [address] [place] [address] Physician Radiation Oncology 03/26/17 Certified Meeting Professional Relationship Specialty Start Date End Date Rosmery Horn MD [address] [place] [address] PCP - General Internal Medicine 12/16/18 Cr Gibbs R [address] [place] [address] Physician Internal Medicine 11/19/16 Nenita Solorio MD, [address] [place] [address] Physician Radiation Oncology 03/26/17 Certified Meeting Professional Relationship Specialty Start Date End Date Rosmery Horn MD [address] [place] [address] PCP - General Internal Medicine 12/16/18 Cr Gibbs R [address] [place] [phone] Physician Internal Medicine 11/19/16 Nenita Solorio MD, [address] [place] [address] Physician Radiation Oncology 03/26/17 Certified Meeting Professional Relationship Specialty Start Date End Date Rosmery Horn MD [address] [place] [address] PCP - General Internal Medicine 12/16/18 Cr Gibbs R [address] [place] [address] Physician Internal Medicine 11/19/16 Nenita Solorio MD, [address] [place] [address] Physician Radiation Oncology 03/26/17 Certified Meeting Professional Relationship Specialty Start Date End Date Rosmery Horn MD [address] [place] [address] PCP - General Internal Medicine 12/16/18 Cr Gibbs R [address] [place] [address] Physician Internal Medicine 11/19/16 Nenita Solorio MD, [address] [facility] [place] [address] Physician Radiation Oncology 03/26/17 Certified Meeting Professional Relationship Specialty Start Date End Date Rosmery Horn MD [address] [place] [address] PCP - General Internal Medicine 12/16/18 Cr Gibbs R [address] [place] [address] Physician Internal Medicine 11/19/16 Nenita Solorio MD, [address] [place] [address] Physician Radiation Oncology 03/26/17 Certified Meeting Professional Relationship Specialty Start Date End Date Rosmery Horn MD [address] [place] [address] PCP - General Internal Medicine 12/16/18 Cr Gibbs R [address] [place] [address] Physician Internal Medicine 11/19/16 Nenita Solorio MD, [address] [place] [address] Physician Radiation Oncology 03/26/17 Certified Meeting Professional Relationship Specialty Start Date End Date Rosmery Horn MD [address] [place] [address] PCP - General Internal Medicine 12/16/18 Cr Gibbs R [address] [place] [address] Physician Internal Medicine 11/19/16 Nenita Solorio MD, [address] [place] [address] Physician Radiation Oncology 03/26/17 Certified Meeting Professional Relationship Specialty Start Date End Date Rosmery Horn MD [address] [place] [address] PCP - General Internal Medicine 12/16/18 Cr Gibbs R [address] [place] [address] Physician Internal Medicine 11/19/16 Nenita Solorio MD, [address] [place] [address] Physician Radiation Oncology 03/26/17 Certified Meeting Professional Relationship Specialty Start Date End Date Rosmery Horn MD [address] [place] [address] PCP - General Internal Medicine 12/16/18 Cr Gibbs R [address] [place] [address] Physician Internal Medicine 11/19/16 Nenita Solorio MD, [address] [place] [address] Physician Radiation Oncology 03/26/17 Certified Meeting Professional Relationship Specialty Start Date End Date Rosmery Horn MD [address] [place] [address] PCP - General Internal Medicine 12/16/18 Cr Gibbs R [address] [place] [address] Physician Internal Medicine 11/19/16 Nenita Solorio MD, [address] [facility] [place] [address] Physician Radiation Oncology 03/26/17 Certified Meeting Professional Relationship Specialty Start Date End Date Rosmery Horn MD [address] [place] [address] PCP - General Internal Medicine 12/16/18 Cr Gibbs R [address] [place] [address] Physician Internal Medicine 11/19/16 Nenita Solorio MD, [address] [place] [address] Physician Radiation Oncology 03/26/17 Certified Meeting Professional Relationship Specialty Start Date End Date Rosmery Horn MD [address] [place] [address] PCP - General Internal Medicine 12/16/18 Cr Gibbs R [address] [place] [address] Physician Internal Medicine 11/19/16 Nenita Solorio MD, [address] [place] [address] Physician Radiation Oncology 03/26/17 Certified Meeting Professional Relationship Specialty Start Date End Date Rosmery Horn MD [address] [place] [address] PCP - General Internal Medicine 12/16/18 Cr Gibbs R [address] [place] [address] Physician Internal Medicine 11/19/16 Nenita Solorio MD, [address] [place] [address] Physician Radiation Oncology 03/26/17 Certified Meeting Professional Relationship Specialty Start Date End Date Rosmery Horn MD [address] [place] [address] PCP - General Internal Medicine 12/16/18 Thomae, Cr R [address] [place] [address] Physician Internal Medicine 11/19/16 Nenita Solorio MD, MD [address] [place] [facility] [place], [place] [address] Physician Radiation Oncology 03/26/17 Certified Meeting Professional Relationship Specialty Start Date End Date Rosmery Horn MD [address] [place], [place] [address] PCP - General Internal Medicine 12/16/18 Arunkrish Cr R [address] [place] [address] Physician Internal Medicine 11/19/16 Nenita Solorio MD, [address] [place], [place] [address] Physician Radiation Oncology 03/26/17 Team Status: Active Member Role Status Dates Dr. Tee Pizarro MD Family Provider Active Rosmery Horn MD Primary Care Provider Active Team Status: Active Member Role Status Zenobia Horn MD Primary Care Provider Active Dr. Riaz Gonzáles DO Emergency Provider Active Dr. Sarina Solorio DO Admit Provider, Att ending Provider, Other Provider Active Team Status: Active Member Role Status Zenobia Horn MD Primary Care Provider Active Dr. Ethan Schaefer MD Attending Provider Active Team Status: Active Member Role Status Zenobia Horn MD Primary Care Provider Active Dr. Riaz Gonzáles DO Emergency Provider Active Dr. Sarina Solorio , Admit Provider, Other Provider Ac tive Dr. Mayra Wood MD Attending Provider, Other Provider Active Dr. Ethan Schaefer MD Other Provider Active Team Status: Active Member Role Status Zenobia Horn MD Primary Care Provider Active Dr. Riaz Gonzáles DO Emergency Provider Active Dr. Sarina Solorio DO Admit Provider, Other Provider Ac tive Dr. Mayra Wood MD Other Provider Active Dr. Ethan Schaefer MD Other Provider Active Britany TANG PA Attending Provider Active Team Status: Active Member Role Status Zenobia Horn MD Primary Care Provider Active Dr. Ethan Schaefer MD Admit Provider, Attending Provide r, Other Provider Active Team Status: Active Member Role Status Zenobia Horn MD Primary Care Provider Active Dr. Ethan Schaefer MD Admit Provider, Other Provider Ac tive Britany TANG PA Attending Provider Active Team Status: Inactive Member Role Status Zenobia Horn MD Primary Care Provider Active Dr. Riaz Gonzáles DO Emergency Provider Active Dr. Sarina Solorio DO Admit Provider, Other Provider Ac tive Dr. Mayra Wood MD Attending Provider Active Dr. Ethan Schaefer MD Other Provider Active Team Status: Inactive Member Role Status Zenobia Horn MD Primary Care Provider Active Dr. Bernardino Min MD Admit Provider, Attending Provid er Active Team Status: Inactive Member Role Status Zenobia Horn MD Primary Care Provider Active Dr. Ethan Schaefer MD Admit Provider, Attending Provide r Active Team Status: Active Member Role Status Dates Dr. Tee Pizarro MD Family Provider Active Dr. Bernardino Min MD Primary Care Provider Active Team Status: Active Member Role Status Zenobia Horn MD Primary Care Provider Active Dr. Ethan Schaefer MD Attending Provider Active Dr. Sarina Solorio DO Referring Provider Active Team Status: Active Member Role Status Zenobia Horn MD Primary Care Provider Active Dr. Riaz Gonzáles DO Emergency Provider Active Dr. Sarina Solorio DO Admit Provider, Other Provider Ac tive Dr. Mayra Wood MD Referring Provider, Other Provider Active Dr. Ethan Schaefer MD Other Provider Active Britany TANG PA Attending Provider Active Team Status: Inactive Member Role Status Zenobia Horn MD Referring Provider Active Dr. Ethan Schaefer MD Attending Provider Active Dr. Bernardino Min MD Primary Care Provider Active Team Status: Active Member Role Status Zenobia Horn MD Primary Care Provider Active Dr. Domo Ruiz MD Attending Provider, Referring Provider Active Team Status: Active Member Role Status Zenobia Horn MD Primary Care Provider Active Dr. Harlan Andres MD Attending Provider, Referring Pr ovider Active Team Status: Active Member Role Status Zenobia Dr. Bernardino Min MD Primary Care Provider Active Dr. Ethan Schaefer MD Attending Provider Active Team Status: Inactive Member Role Status Dates Rosmery Horn MD Primary Care Provider Active Dr. Bernardino Min MD Attending Provider Active Team Status: Active Member Role Status Dates Dr. Bernardino Min MD Primary Care Provider, Attending Provider Active Certified Meeting Professional Relationship Specialty Start Date End Date Rosmery Horn MD [address] [place] [address] PCP - General Internal Medicine 12/16/18 Cr Gibbs R [address] [place] [address] Physician Internal Medicine 11/19/16 Nenita Solorio MD, [address] [place] [address] Physician Radiation Oncology 03/26/17 Certified Meeting Professional Relationship Specialty Start Date End Date Rosmery Horn MD [address] [place] [address] PCP - General Internal Medicine 12/16/18 Cr Gibbs R [address] [place] [address] Physician Internal Medicine 11/19/16 Nenita Solorio MD, [address] [place] [address] Physician Radiation Oncology 03/26/17 Certified Meeting Professional Relationship Specialty Start Date End Date Rosmery Horn MD [address] [place] [address] PCP - General Internal Medicine 12/16/18 Cr Gibbs [address] [place] [address] Physician Internal Medicine 11/19/16 Nenita Solorio MD, [address] [place] [address] Physician Radiation Oncology 03/26/17 Certified Meeting Professional Relationship Specialty Start Date End Date Bernardino Min Chi [address] [place] [address] [place] [address] PCP - General Gerontology 12/25/22 Cr Gibbs R [address] [place] [address] Physician Internal Medicine 11/19/16 Nenita Solorio MD, [address] [place] [address] Physician Radiation Oncology 03/26/17 Certified Meeting Professional Relationship Specialty Start Date End Date Bernardino Min Chi [address] [place] [address] [place] [address] PCP - General Gerontology 12/25/22 Cr Gibbs R [address] [place] [address] Physician Internal Medicine 11/19/16 Nenita Solorio MD, [address] [place] [address] Physician Radiation Oncology 03/26/17 Certified Meeting Professional Relationship Specialty Start Date End Date Bernardino Min Chi [address] [place] [address] [place] [address] PCP - General Gerontology 12/25/22 Cr Gibbs R [address] [place] [address] Physician Internal Medicine 11/19/16 Nenita Solorio MD, [address] [place] [address] Physician Radiation Oncology 03/26/17 Certified Meeting Professional Relationship Specialty Start Date End Date Bernardino Min Chi [address] [place] [address] [place] [address] PCP - General Gerontology 12/25/22 Cr Gibbs R [address] [place] [address] Physician Internal Medicine 11/19/16 Nenita Solorio MD, [address] [place] [address] Physician Radiation Oncology 03/26/17 Certified Meeting Professional Relationship Specialty Start Date End Date Bernardino Min Chi [address] [place] [place] [address] PCP - General Gerontology 12/25/22 Cr Gibbs R [address] [place] [address] Physician Internal Medicine 11/19/16 Nenita Solorio MD, [address] [place] [address] Physician Radiation Oncology 03/26/17 Certified Meeting Professional Relationship Specialty Start Date End Date Bernardino Min Chi [address] [place] [place] [address] PCP - General Gerontology 12/25/22 Cr Gibbs R [address] [place] [address] Physician Internal Medicine 11/19/16 Nenita Solorio MD, [address] [place] [address] Physician Radiation Oncology 03/26/17 Certified Meeting Professional Relationship Specialty Start Date End Date Bernardino Min Chi [address] [place] [address] PCP - General Gerontology 12/25/22 Cr Gibbs R [address] [place] [address] Physician Internal Medicine 11/19/16 Nenita Solorio MD, [address] [place] [address] Physician Radiation Oncology 03/26/17 Certified Meeting Professional Relationship Specialty Start Date End Date Bernardino Min Chi [address] [place] [address] PCP - General Gerontology 12/25/22 Cr Gibbs R [address] [place] [address] Physician Internal Medicine 11/19/16 Nenita Solorio MD, [address] [place] [address] Physician Radiation Oncology 03/26/17 Certified Meeting Professional Relationship Specialty Start Date End Date Bernardino Min Chi [address] [place] [address] PCP - General Gerontology 12/25/22 Cr Gibbs R [address] [place] [address] Physician Internal Medicine 11/19/16 Nenita Solorio MD, [address] [place] [address] Physician Radiation Oncology 03/26/17 Team Status: Inactive Member Role Status Dates Dr. Bernardino Min MD Primary Care Provider Active Dr. Carlos Enrique Peguero MD Emergency Provider Active Certified Meeting Professional Relationship Specialty Start Date End Date Bernardino Min Chi [address] [place] [address] PCP - General Gerontology 12/25/22 Cr Gibbs [address] [place] [address] Physician Internal Medicine 11/19/16 Nenita Solorio MD, [address] [place] [address] Physician Radiation Oncology 03/26/17 Certified Meeting Professional Relationship Specialty Start Date End Date Pako, Bernardino Tapia [address] [place] [address] PCP - General Gerontology 12/25/22 Cr Gibbs [address] [place] [address] Physician Internal Medicine 11/19/16 Nenita Solorio MD, [address] [place] [address] Physician Radiation Oncology 03/26/17 Certified Meeting Professional Relationship Specialty Start Date End Date Pako Bernardino Tapia [address] [place], [place] [address] PCP - General Gerontology 12/25/22 Cr Gibbs [address] [place] [address] Physician Internal Medicine 11/19/16 Nenita Solorio MD, [address] [place] [id number] Physician Radiation Oncology 03/26/17 Certified Meeting Professional Relationship Specialty Start Date End Date Pako, Bernardino Tapia [address] [place] [address] PCP - General Gerontology 12/25/22 Cr Gibbs [address] [place] [address] Physician Internal Medicine 11/19/16 Nenita Solorio MD, [address] [place] [id number] Physician Radiation Oncology 03/26/17 Certified Meeting Professional Relationship Specialty Start Date End Date PakoBernardino Chi [address] [place] [address] PCP - General Gerontology 12/25/22 Cr Gibbs [address] [place] [address] Physician Internal Medicine 11/19/16 Nenita Solorio MD, [address] [place] [id number] Physician Radiation Oncology 03/26/17 Certified Meeting Professional Relationship Specialty Start Date End Date Bernardino Min Chi [address] [place], [place] [address] PCP - General Gerontology 12/25/22 Cr Gibbs [address] [place] [address] Physician Internal Medicine 11/19/16 Nenita Solorio MD, [address] [place], [place] [address] Physician Radiation Oncology 03/26/17 Certified Meeting Professional Relationship Specialty Start Date End Date Bernardino Min Chi [address] [place], [place] [address] PCP - General Gerontology 12/25/22 Cr Gibbs [address] [place] [address] Physician Internal Medicine 11/19/16 Nenita Solorio MD, [address] [place], [place] [address] Physician Radiation Oncology 03/26/17 Certified Meeting Professional Relationship Specialty Start Date End Date Bernardino Min Chi [address] [place], [place] [address] PCP - General Gerontology 12/25/22 Cr Gibbs [address] [place] [address] Physician Internal Medicine 11/19/16 Nenita Solorio MD, [address] [place] [address] Physician Radiation Oncology 03/26/17 Certified Meeting Professional Relationship Specialty Start Date End Date Bernardino Min Chi [address] [place], [place] [address] PCP - General Gerontology 12/25/22 Cr Gibbs [address] [place] [address] Physician Internal Medicine 11/19/16 Nenita Solorio MD, [address] [place], [place] [address] Physician Radiation Oncology 03/26/17 Certified Meeting Professional Relationship Specialty Start Date End Date Bernardino Min Chi [address] [place], [place] [address] PCP - General Gerontology 12/25/22 Cr Gibbs [address] [place] [address] Physician Internal Medicine 11/19/16 Nenita Solorio MD, [address] [place], [place] [address] Physician Radiation Oncology 03/26/17 Certified Meeting Professional Relationship Specialty Start Date End Date Bernardino Min Chi [address] [place], [place] [id number] PCP - General Gerontology 12/25/22 Cr Gibbs [address] [place] [address] Physician Internal Medicine 11/19/16 Nenita Solorio MD, [address] [place], [place] [address] Physician Radiation Oncology 03/26/17 Certified Meeting Professional Relationship Specialty Start Date End Date Bernardino Min Chi [address] [place], [place] [address] PCP - General Gerontology 12/25/22 Cr Gibbs [address] [place] [address] Physician Internal Medicine 11/19/16 Nenita Solorio MD, [address] [place], [place] [address] Physician Radiation Oncology 03/26/17 Domo Frazier DO [address] [place], [place] [address] Physician Hematology/Oncology 06/04/23 Mason Quintero, RN Specialty 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 Worker Oncology 06/04/23 Certified Meeting Professional Relationship Specialty Start Date End Date Bernardino Min Chi [address] [place] [id number] PCP - General Gerontology 12/25/22 Cr Gibbs [address] [place] [address] Physician Internal Medicine 11/19/16 Nenita Solorio MD, [address] [place], [place] 94[address] Physician Radiation Oncology 03/26/17 Domo Frazier DO [address] [place] [address] Physician Hematology/Oncology 06/04/23 Mason Quintero RN Specialty 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 Worker Oncology 06/04/23 Certified Meeting Professional Relationship Specialty Start Date End Date Bernardino Min Chi [address] [place], [place] [address] PCP - General Gerontology 12/25/22 Cr Gibbs [address] [place] [address] Physician Internal Medicine 11/19/16 Nenita Solorio MD, [address] [place] [address] Physician Radiation Oncology 03/26/17 Domo Frazier DO [address] [place] [id number] Physician Hematology/Oncology 06/04/23 Mason Quintero RN Specialty 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 Worker Oncology 06/04/23 Certified Meeting Professional Relationship Specialty Start Date End Date Bernardino Min Chi [address] [place], [place] [address] PCP - General Gerontology 12/25/22 Cr Gibbs [address] [place] [address] Physician Internal Medicine 11/19/16 Nenita Solorio MD, [address] [place] [place], [place] [address] Physician Radiation Oncology 03/26/17 Domo Frazier DO [address] [place] [address] Physician Hematology/Oncology 06/04/23 Mason Quintero RN Specialty 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 Worker Oncology 06/04/23 Certified Meeting Professional Relationship Specialty Start Date End Date Bernardino Min Chi [address] [place] [address] PCP - General Gerontology 12/25/22 Cr Gibbs [address] [place] [address] Physician Internal Medicine 11/19/16 Nenita Solorio MD, [address] [place] [address] Physician Radiation Oncology 03/26/17 Domo Frazier DO [address] [place] [address] Physician Hematology/Oncology 06/04/23 Mason Quintero RN Specialty 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 Worker Oncology 06/04/23 Certified Meeting Professional Relationship Specialty Start Date End Date Bernardino Min Chi [address] [place] [address] PCP - General Gerontology 12/25/22 Cr Gibbs [address] [place] [address] Physician Internal Medicine 11/19/16 Nenita Solorio MD, [address] [place] [address] Physician Radiation Oncology 03/26/17 Domo Frazier DO [address] [place] [address] Physician Hematology/Oncology 06/04/23 Mason Quintero RN Specialty 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 Worker Oncology 06/04/23 Certified Meeting Professional Relationship Specialty Start Date End Date Bernardino Min Chi [address] [place] [address] PCP - General Gerontology 12/25/22 Cr Gibbs [address] [place] [address] Physician Internal Medicine 11/19/16 Nenita Solorio MD, [address] [place] [address] Physician Radiation Oncology 03/26/17 Domo Frazier DO [address] [place] [address] Physician Hematology/Oncology 06/04/23 Mason Quintero RN Specialty 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 Worker Oncology 06/04/23 Certified Meeting Professional Relationship Specialty Start Date End Date Bernardino Min Chi [address] [place] [address] PCP - General Gerontology 12/25/22 Cr Gibbs [address] [place] [address] Physician Internal Medicine 11/19/16 Nenita Solorio MD, [address] [place], [place] [address]411 Physician Radiation Oncology 03/26/17 Domo Frazier DO [address] [place] [id number] Physician Hematology/Oncology 06/04/23 Mason Quintero RN Specialty 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 Worker Oncology 06/04/23 Team Status: Inactive Member Role Status Dates Dr. Bernardino Min MD Primary Care Provider Active Dr. Carlos Enrique Peguero MD Attending Provider, Emergency Provider Active Team Status: Active Member Role Status Dates Dr. Bernardino Min MD Primary Care Provider Active Dr. Ju López DO Emergency Provider Active Dr. Jason Arteaga MD Admit Provider, Attending Pro vider Active Team Status: Active Member Role Status Dates Dr. Bernardino Min MD Primary Care Provider Active Dr. Ju López DO Emergency Provider Active Dr. Jason Arteaga MD Admit Provider, Other Provide r Active Dr. Ethan Duarte DO Attending Provider, Other Provid er Active Team Status: Inactive Member Role Status Dates Dr. Bernadrino Min MD Primary Care Provider Active Dr. Ju López DO Emergency Provider Active Dr. Jason Arteaga MD Admit Provider, Other Provide r Active Dr. Ethan Duarte DO Attending Provider Active Certified Meeting Professional Relationship Specialty Start Date End Date Bernardino Min Chi [address] [place] [address] PCP - General Gerontology 12/25/22 Cr Gibbs [address] [place] [address] Physician Internal Medicine 11/19/16 Nenita Solorio MD, MD [address] [place], [place] 207191 Physician Radiation Oncology 03/26/17 Team Status: Inactive Member Role Status Dates Dr. Bernardino Min MD Primary Care Provi virgil, Admit Provider, Attending Provider, Referring Provider Active Team Status: Active Member Role Status Dates Dr. Bernardino Min MD Primary Care Provi virgil, Attending Provider, Referring Provider Active Certified Meeting Professional Relationship Specialty Start Date End Date Bernardino Min Chi [address] [place], [place] [address]191 PCP - General Gerontology 12/25/22 Cr Gibbs [address] [place] [address] Physician Internal Medicine 11/19/16 Nenita Solorio MD, MD [address] [place], [place] 155[address] Physician Radiation Oncology 03/26/17 Domo Frazier DO [address] [place], [place] 727731 Physician Hematology/Oncology 06/04/23 Mason Quintero, RN Specialty 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 Worker Oncology 06/04/23 Medicine, [facility] [address] [place] [address] Palliative Medicine Provider 07/08/23 Team Status: Inactive Member Role Status Dates Dr. Bernardino Min MD Primary Care Provemily virgil, Attending Provider, Referring Provider Active Certified Meeting Professional Relationship Specialty Start Date End Date Pako Bernardino Tapia [address] [place], [place] [id number] PCP - General Gerontology 12/25/22 Cr Gibbs [address] [place] [address] Physician Internal Medicine 11/19/16 Nenita Solorio MD, [address] [place], [place] 334161 Physician Radiation Oncology 03/26/17 Domo Frazier DO [address] [place], [place] 195[address] Physician Hematology/Oncology 06/04/23 Mason Quintero, RN Specialty 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 Worker Oncology 06/04/23 Medicine, [facility] [address] [facility] [place], [place] 8908505 Palliative Medicine Provider 07/08/23 Team Status: Active Member Role Status Dates Dr. Bernardino Min MD Primary Care Provider, Referring Provider Active Dr. Ethan [place] MD Attending Provider Active Team Status: Inactive Member Role Status Dates Dr. Bernardino Min MD Primary Care Provider, Attending Provider Active Certified Meeting Professional Relationship Specialty Start Date End Date Bernardino Min Chi [address] [place] [id number] PCP - General Gerontology 12/25/22 Cr Gibbs [address] [place] [address] Physician Internal Medicine 11/19/16 Nenita Solorio MD, [address] [place] [address] Physician Radiation Oncology 03/26/17 Domo Frazier DO [address] [place] [address] Physician Hematology/Oncology 06/04/23 Doup, Mason, RN Specialty 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 Worker Oncology 06/04/23 Medicine, [facility] [address] [place] [address] Palliative Medicine Provider 07/08/23 Certified Meeting Professional Relationship Specialty Start Date End Date Bernardino Min Chi [address] [place], [place] 9[address]21 PCP - General Gerontology 12/25/22 Cr Gibbs [address] [place] [address] Physician Internal Medicine 11/19/16 Nenita Solorio MD [address] [facility] [place] [place] [phone] Physician Radiation Oncology 03/26/17 Domo Frazier DO [address] [facility] [place], [place] 9[address]201 Physician Hematology/Oncology 06/04/23 Mason Quintero, MONTSE Specialty 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 Worker Oncology 06/04/23 Medicine, [facility] [address] [place] [address] Palliative Medicine Provider 07/08/23 Certified Meeting Professional Relationship Specialty Start Date End Date Bernardino Min Chi [address] [place] [address] PCP - General Gerontology 12/25/22 Cr Gibbs [address] [place] [address] Physician Internal Medicine 11/19/16 Nenita Solorio MD [address] [facility] [place] [place] [phone] Physician Radiation Oncology 03/26/17 Domo Frazier DO [address] [place] [address] Physician Hematology/Oncology 06/04/23 Mason Quintero, RN Specialty 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 Worker Oncology 06/04/23 Medicine, [facility] [address] [place] [address] Palliative Medicine Provider 07/08/23 Certified Meeting Professional Relationship Specialty Start Date End Date PakoBernardino Chi [address] [place], [place] [address]01 PCP - General Gerontology 12/25/22 Cr Gibbs [address] [place] [address] Physician Internal Medicine 11/19/16 Nenita Solorio MD [address] [place] [place], [place] [address]791 Physician Radiation Oncology 03/26/17 Domo Frazier DO [address] [place] [address] Physician Hematology/Oncology 06/04/23 Mason Quintero, RN Specialty 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 Worker Oncology 06/04/23 Medicine, [facility] [address] [place] [address] Palliative Medicine Provider 07/08/23 Certified Meeting Professional Relationship Specialty Start Date End Date ApkoBernardino Chi [address] [place], [place] [id number] PCP - General Gerontology 12/25/22 Cr Gibbs [address] [place] [address] Physician Internal Medicine 11/19/16 Nenita Solorio MD [address] [place], [place] 9509[address] Physician Radiation Oncology 03/26/17 Domo Frazier DO [address] [place], [place] 775991 Physician Hematology/Oncology 06/04/23 Mason Quintero, RN Specialty 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 Worker Oncology 06/04/23 Medicine, [facility] [address] [place] [address] Palliative Medicine Provider 07/08/23 Certified Meeting Professional Relationship Specialty Start Date End Date Bernardino Min Chi [address] [place], [place] [address] PCP - General Gerontology 12/25/22 Cr Gibbs [address] [place] [address] Physician Internal Medicine 11/19/16 Nenita Solorio MD [address] [place], [place] 395[address] Physician Radiation Oncology 03/26/17 Domo Frazier DO [address] [place] [address] Physician Hematology/Oncology 06/04/23 Mason Quintero, RN Specialty 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 Worker Oncology 06/04/23 Medicine, [facility] [address] [place] [address] Palliative Medicine Provider 07/08/23 Certified Meeting Professional Relationship Specialty Start Date End Date Bernardino Min Chi [address] [place] [address] PCP - General Gerontology 12/25/22 Cr Gibbs [address] [place] [address] Physician Internal Medicine 11/19/16 Nenita Solorio MD [address] [place], [place] [address] Physician Radiation Oncology 03/26/17 Domo Frazier DO [address] [place] [address] Physician Hematology/Oncology 06/04/23 Mason Quintero, RN Specialty 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 Worker Oncology 06/04/23 Medicine, [facility] [address] [place] [id number] Palliative Medicine Provider 07/08/23 Certified Meeting Professional Relationship Specialty Start Date End Date Bernardino Min Chi [address] [place] [address] PCP - General Gerontology 12/25/22 Cr Gibbs [address] [place] [address] Physician Internal Medicine 11/19/16 Nenita Solorio MD [address] [place] [address] Physician Radiation Oncology 03/26/17 Domo Frazier DO [address] [place] [place], [place] [address] Physician Hematology/Oncology 06/04/23 Mason Quintero, RN Specialty 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 Worker Oncology 06/04/23 Medicine, [facility] [address] [place] [address] Palliative Medicine Provider 07/08/23 Certified Meeting Professional Relationship Specialty Start Date End Date Bernardino Min Chi [address] [place], [place] [id number] PCP - General Gerontology 12/25/22 Cr Gibbs [address] [place] [address] Physician Internal Medicine 11/19/16 Nenita Solorio MD [address] [place], [place] [address]478[address] Physician Radiation Oncology 03/26/17 Domo Frazier DO [address] [place] [address] Physician Hematology/Oncology 06/04/23 Mason Quintero, RN Specialty 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 Worker Oncology 06/04/23 Medicine, [facility] [address] [place] [address] Palliative Medicine Provider 07/08/23 Certified Meeting Professional Relationship Specialty Start Date End Date Bernardino Min Chi [address] [place], [place] [address] PCP - General Gerontology 12/25/22 Cr Gibbs [address] [place] [address] Physician Internal Medicine 11/19/16 Nenita Solorio MD [address] [place] [place], [place] 17[address] Physician Radiation Oncology 03/26/17 Domo Frazier DO [address] [place], [place] 6[address]31 Physician Hematology/Oncology 06/04/23 Mason Quintero, RN Specialty 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 Worker Oncology 06/04/23 Medicine, [facility] [address] [place] [address] Palliative Medicine Provider 07/08/23 Certified Meeting Professional Relationship Specialty Start Date End Date Bernardino Min Chi [address] [place], [place] [address]251 PCP - General Gerontology 12/25/22 Cr Gibbs [address] [place] [address] Physician Internal Medicine 11/19/16 Nenita Solorio MD [address] [place] [address] Physician Radiation Oncology 03/26/17 Domo Frazier DO [address] [place] [address] Physician Hematology/Oncology 06/04/23 Mason Quintero, RN Specialty 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 Worker Oncology 06/04/23 Medicine, [facility] [address] [place] [address] Palliative Medicine Provider 07/08/23 Certified Meeting Professional Relationship Specialty Start Date End Date Rosmery Horn MD [address] [place] [address] PCP - General 08/30/19 Certified Meeting Professional Relationship Specialty Start Date End Date Pako Bernardino Tapia [address] [place] [address] PCP - General Gerontology 12/25/22 Cr Gibbs [address] [place] [address] Physician Internal Medicine 11/19/16 Nenita Solorio MD [address] [place] [address] Physician Radiation Oncology 03/26/17 Domo Frazier DO [address] [place] [address] Physician Hematology/Oncology 06/04/23 Mason Quintero, MONTSE Specialty 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 Worker Oncology 06/04/23 Medicine, [facility] [address] [place] [id number] Palliative Medicine Provider 07/08/23 Certified Meeting Professional Relationship Specialty Start Date End Date Terry Mccann [address] [place], [place] [id number] PCP - General Internal Medicine 12/28/23 Cr Gibbs [address] [place] [address] Physician Internal Medicine 11/19/16 Nenita Solorio MD [address] [place] [address] Physician Radiation Oncology 03/26/17 Domo Frazier DO [address] [place] [address] Physician Hematology/Oncology 06/04/23 Mason Quintero, RN Specialty 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 Worker Oncology 06/04/23 Medicine, [facility] [address] [place] [address] Palliative Medicine Provider 07/08/23 Certified Meeting Professional Relationship Specialty Start Date End Date Bernardino Min Chi [address] [place] [address] PCP - General Gerontology 12/25/22 12/27/23 Cr Gibbs [address] [place] [address] Physician Internal Medicine 11/19/16 Nenita Solorio MD [address] [place] [address] Physician Radiation Oncology 03/26/17 Domo Frazier DO [address] [place] [address] Physician Hematology/Oncology 06/04/23 Mason Quintero, RN Specialty 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 Worker Oncology 06/04/23 Medicine, [facility] [address] [place] [id number] Palliative Medicine Provider 07/08/23 Certified Meeting Professional Relationship Specialty Start Date End Date Pako, Bernardino Chi [address] [place] [address] PCP - General Gerontology 12/25/22 12/27/23 Terry Mccann [address] [place] [address] PCP - General Internal Medicine 12/28/23 Cr Gibbs [address] [place] [address] Physician Internal Medicine 11/19/16 Nenita Solorio MD [address] [place] [address] Physician Radiation Oncology 03/26/17 Domo Frazier DO [address] [place] [address] Physician Hematology/Oncology 06/04/23 Mason Quintero, MONTSE Specialty 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 Worker Oncology 06/04/23 Medicine, [facility] [address] [place], [place] 1063105 Palliative Medicine Provider 07/08/23 Certified Meeting Professional Relationship Specialty Start Date End Date Terry Mccann [facility] [place] [address] PCP - General Internal Medicine 12/28/23 rC Gibbs [address] [phone] Physician Internal Medicine 11/19/16 Nenita Solorio MD [address] [place] [address] Physician Radiation Oncology 03/26/17 Domo Frazier DO [address] [place], [place] [address] Physician Hematology/Oncology 06/04/23 Mason Quintero, RN Specialty 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 Worker Oncology 06/04/23 Medicine, [facility] [address] [place] [address] Palliative Medicine Provider 07/08/23 Certified Meeting Professional Relationship Specialty Start Date End Date Terry Mccann [address] [place] [address] PCP - General Internal Medicine 12/28/23 Cr Gibbs [address] [address] Physician Internal Medicine 11/19/16 Nenita Solorio MD [address] [place], [place] [address] Physician Radiation Oncology 03/26/17 Domo Frazier DO [address] [place] [address] Physician Hematology/Oncology 06/04/23 Mason Quintero, RN Specialty 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 Worker Oncology 06/04/23 Medicine, [facility] [address] [place] [address] Palliative Medicine Provider 07/08/23 Certified Meeting Professional Relationship Specialty Start Date End Date Terry Mccann [facility] [place] [address] PCP - General Internal Medicine 12/28/23 Cr Gibbs [address] [place] [address] Physician Internal Medicine 11/19/16 Nenita Solorio MD [address] [place] [address] Physician Radiation Oncology 03/26/17 Domo Frazier DO [address] [place] [address] Physician Hematology/Oncology 06/04/23 Mason Quintero, RN Specialty 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 Worker Oncology 06/04/23 Medicine, [facility] [address] [place] [id number] Palliative Medicine Provider 07/08/23 Certified Meeting Professional Relationship Specialty Start Date End Date Terry Mccann [address] [place], [place] [phone] PCP - General Internal Medicine 12/28/23 Cr Gibbs [address] [place] [address] Physician Internal Medicine 11/19/16 Nenita Solorio MD [address] [place] [address] Physician Radiation Oncology 03/26/17 Domo Frazier DO [address] [place] [address] Physician Hematology/Oncology 06/04/23 Mason Quintero, RN Specialty 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 Worker Oncology 06/04/23 Medicine, [facility] Palliative Medicine Provider 07/08/23 Certified Meeting Professional Relationship Specialty Start Date End Date Terry Mccann [address] [place], [place] [id number] PCP - General Internal Medicine 12/28/23 Cr Gibbs [address] [place] [address] Physician Internal Medicine 11/19/16 Nenita Solorio MD [address] [place] [address] Physician Radiation Oncology 03/26/17 Domo Frazier DO [address] [place] [address] Physician Hematology/Oncology 06/04/23 Mason Quintero, MONTSE Specialty 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 Worker Oncology 06/04/23 Medicine, [facility] Palliative Medicine Provider 07/08/23 Certified Meeting Professional Relationship Specialty Start Date End Date Rosmery Horn MD [address] [place] [address] PCP - General Internal Medicine 12/16/18 12/24/22 Cr Gibbs [address] [address] [facility] [address] [place] [address] Physician Internal Medicine 11/19/16 Nenita Solorio MD [address] [place] [address] Physician Radiation Oncology 03/26/17 Certified Meeting Professional Relationship Specialty Start Date End Date Bernardino Min Chi [address] [place] [address] PCP - General Gerontology 12/25/22 Cr Gibbs [address] [place] [address] Physician Internal Medicine 11/19/16 Nenita Solorio MD [address] [place] [address] Physician Radiation Oncology 03/26/17 Domo Frazier DO [address] [place] [address] Physician Hematology/Oncology 06/04/23 Mason Quintero, MONTSE Specialty 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 Worker Oncology 06/04/23 Medicine, [facility] [address] [place] [address] Palliative Medicine Provider 07/08/23 Certified Meeting Professional Relationship Specialty Start Date End Date Rosmery Horn MD [address] [place] [address] PCP - General 08/30/19 Certified Meeting Professional Relationship Specialty Start Date End Date Terry Mccann MD [address] [place] [address] PCP - General Hospitalist 02/25/24 Certified Meeting Professional Relationship Specialty Start Date End Date Terry Mccann MD [address] [place] [address] PCP - General Hospitalist 02/25/24 Certified Meeting Professional Relationship Specialty Start Date End Date Terry Mccann MD [address] [place] [address] PCP - General Hospitalist 02/25/24 Certified Meeting Professional Relationship Specialty Start Date End Date Terry Mccann MD [address] [place] [address] PCP - General Hospitalist 02/25/24 Certified Meeting Professional Relationship Specialty Start Date End Date Guillermo Min MD [address] [facility] [address] [address] PCP - General Gerontology 02/13/25 Certified Meeting Professional Relationship Specialty Start Date End Date Terry Mccann [address] [place] [address] [id number] PCP - General Internal Medicine 12/28/23 Cr Gibbs [address] [phone] Physician Internal Medicine 11/19/16 Nenita Solorio MD [address] [place] [address] Physician Radiation Oncology 03/26/17 Domo Frazier DO [address] [place], [place] [address] Physician Hematology/Oncology 06/04/23 Mason Quintero RN Specialty 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 Worker Oncology 06/04/23 Medicine, [facility] Palliative Medicine Provider 07/08/23 Goals (unrecognized section and content) Goals may be documented in a n alternate sectionGoals may be documented in an alternate section Scheduled Active and Recently Administ ered Medications (unrecognized section and content) Medication Order 02/23/2024 02/24/2024 02/25/2024 cefTRIAXone (Rocephin) IVPB 1 g (COMPLETED) 1 g, intravenous, at 100 mL/hr, Administer over 30 Minutes, Once, On Wed02/25/24 at 1520, For 1 dose, premix bag, Suspected Indication (Select all that apply): Urinary Tract Infection, Type of Therapy: Empiric, Type of Urinary Tract Infection: Uncomplicated, Indications: Urinary Tract Infection 1524 (New Bag - Prov ider: Tisha Torres RN)1554 (Stopped - Provider: Estela Carter RN) iohexol (OMNIPaque) 350 mg iodine/mL solution 68 mL (COMPLETED) 68 mL, intravenous, Once in imaging, Starting on Wed02/25/24 at 1550, For 1 dose 1553 (Given - Provid er: Blanca Moreno) sodium chloride 0.9 % bolus 500 mL (COMPLETED) 500 mL, intravenous, at 500 mL/hr, Administer over 1 Hours, Once, On Wed02/25/24 at 1505, For 1 dose 1523 (New Bag - Prov ider: Tisha Torres RN)1718 (Stopped - Provider: Tisha Torres RN - Comment: taking longer interrupted for CT) Scheduled Medication Order 08/17/2024 08/18/2024 08/19/2024 ipratropium-albuteroL (Duo-Neb) 0.5-2.5 mg/3 mL nebulizer solution 3 mL (COMPLETED) 3 mL, nebulization, Once, On 08/19/24 at 1215, For 1 dose 1231 (Given - Provid er: Kellen Hart CRTT) ipratropium-albuteroL (Duo-Neb) 0.5-2.5 mg/3 mL nebulizer solution 3 mL (COMPLETED) 3 mL, nebulization, Once, On 08/19/24 at 1215, For 1 dose 1221 (Given - Provid er: [facility]) FOR RECORDS PERTAINING TO PATIENTS WHO ARE OR HAVE BEEN ENROLLED IN A CHEMICAL DEPENDENCY/SUBSTANCEABUSE PROGRAM, SOME INFORMATION MAY BE OMITTED. This clinical summary was aggregated from multiple sources. Caution should be exercised in using it in the provision of clinical care. This summary normalizes information from multiple sources, and as a consequence, information in this document may materially change the coding, format and clinical context of patient data. In addition, data may be omitted in some cases. CLINICAL DECISIONS SHOULD BE BASED ON THE PRIMARY CLINICAL RECORDS. [employer] [facility]. provides no warranty or guarantee of the accuracy or completeness of information in this document.
--- OUTSIDE RECORDS SUMMARY | 2025-03-08 02:36 | XMS RPT_ITS | CCD ---
Author Organization [facility] Care Team Providers Care Real Estate Rental Agent Name Role Phone NOAM FREEMAN Unavailable Unavailable NOAM FREEMAN Unavailable Unavailable PIZARRO, SERA Unavailable Unavailable Fer, Jimmy Magallanes Primary Care Provider Noam Freeman Unavailable JENA AVITIA Attending Unavailable PIZARRO, JIMMY MAGALLANES Referring Unavaila ble PIZARRO, [facility] Primary Care Unavaila ble ESTELA COSBY Attending Unavailable PIZARRO, JIMMY MAGALLANES Primary Care Unavaila ble NOAM FREEMAN Referring Unavailable PIZARRO, [facility] MAGALLANES Primary Care Unavaila ble FLORENCIO CHILDS Attending Unavailable PIZARRO, JIMMY MAGALLANES Primary Care Unavaila ble QING, ISIS Attending Unavailable PIZARRO, SU[facility] DILLONTONYA MAGALLANES [facility] Care Unavaila ble QING, ISIS Attending Unavailable PIZARRO, ELBERT ELPIDIO [facility] Care Unavaila ble FIRMI, AMY Attending Unavailable TEJA PARDO Attending Unavailable PIZARRO, [facility] Primary Care Unavaila ble ALBERTO ESTRADA Attending Unavailable PIZARRO, JIMMY MAGALLANES [facility] Care Unavaila ble PIZARRO, JIMMY MAGALLANES Referring Unavaila ble PIZARRO, ELBERT ELPIDIO Primary Care Unavaila ble QING, ISIS [...] Provider Unavailab Dr. Riaz Kaur Emergency Provider Dr. Sarina Solorio Admit Provider Dr. Sarina [...] Min Chi Primary Care Provider MD Rosmery Horn Referring Provider Unavailable Pako, Bernardino Chi Primary Care Provider Pako, Bernardino Chi Primary Care Provider [phone] RACHEAL SALDANA Referring Unavailable PAKO, BERNARDINO CHI [...] Provider Dr. Ju López Emergency Provider Dr. Jsaon Arteaga Admit Provider Dr. Jason Arteaga Other [...] Unavailable Rosmery Horn MD Primary Care Provider [phone] Terry Mccann MD Primary Care Provider [phone] Pako, Bernardino Chi Referring Unavailable Pako, Bernardino Chi Attending Unavailable Pako, Bernardino Chi Primary Care Unavailable [facility] Provider EL KENZIE, TERRY Referring [...] Unavailable [place], Terry Primary Care Provider [phone] Allergies Allergy Classification Reported Allergen(s) Allergy Type Date of Onset Reaction(s) Facility (20 sources) Codeine; Translations: [CODEINE] Drug Allergy 02-25-20 01 GI Intolerance, GI Upset, Hives, Other [facility] Repository (20 sources) Contrast media; Translations: [DYE] Propensity to adverse reactions (disorder) 03-04-20 18 GI Upset [facility] (20 sources) Erythromycin; Translations: [ERYTHROMYCIN] Drug Allergy 08-03-20 14 GI Intolerance, GI Upset [facility] (20 sources) methylPREDNISolone; Translations: [METHYLPREDNISOLONE ] Drug Allergy 08-03-20 14 Other (See Comments), Hives [facility] (20 sources) Sulfonamides (Antibiotic); Translations: [SULFA (SULFONAMIDE ANTIBIOTICS)] Propensity to adverse reactions (disorder) 02-25-20 01 GI Intolerance, Unknown [facility]ository (3 sources) Corticosteroids Other [facility] (3 sources) Sulfonamides (Antibiotic) Unknown [facility] (12 sources) Erythromycin Drug Allergy 08-31-19 Upset Stomach (6 sources) DOXOrubicin Drug Allergy 03-12-20 Anaphylaxis (20 sources) Iodine; Translations: [IODINE] Drug Allergy 03-24-[address] [facility] (9 sources) Glucocorticoid preparation; Translations: [CORTICOSTEROIDS (GLUCOCORTICOIDS)] Drug Allergy 08-24-20 Other [facility] Work Phone: (1 source) ALLERGIES NOT ON FILE; Translations: [ALLERGIES NOT ON FILE] Propensity to adverse reactions (disorder) [facility] Repository (1 source) DOXOrubicin Drug Allergy 06-26-20 Repository (1 source) Erythromycin Drug Allergy 06-26-20 Repository Medications Current Medications Medication Drug Class(es) [...] 6 HOURS NEEDED September 07, 2022 12:00am [id number] 200 actuat albuterol 0.09 mg/actuat metered dose [...] oral solution (2 sources) alpha-Adrenergic Agonist, Uncompetitive K-qtntzj-L-aspartate Receptor Antagonist, Sigma-1 Agonist Start: 08-17-20 End: [...] to hold it. L gasseri/B bifidum/B longum ([employer] ORAL) (17 sources) Start: 09-21-2018 L gasseri/B bifidum/B longum ([facility] ORAL) Take 1 Caplet by mouth once [...] 05/13/2021 Discontinued take 1 capsule by mo [facility] twice daily Macrobid 100 mg oral [...] dryness). 0 09/21/2018 Active polyethylene glycol 3350 18475 mg powder for oral solution (20 sources) [...] Decision) docusate sodium 50 mg / sennosides, alf 8.6 mg oral tablet (20 sources) Start: [...] For 1 dose L GASSERI/B BIFIDUM/B LONGUM ([facility] ORAL) (20 sources) End: 12-27-2023 take 1 tablet by mouth once daily L GASSERI/B BIFIDUM/B LONGUM ([facility] ORAL) Take 1 tablet by mouth once daily. 12/27/2023 Discontinued (Discontinued by Patient) End: 12-27-2023 take 1 tablet by mouth once daily L GASSERI/B BIFIDUM/B LONGUM ([facility] ORAL) Take 1 tablet by mouth once daily. 0 12/27/2023 Discontinued (Discontinued by Patient) take 1 tablet by tarsha th once daily L GASSERI/B BIFIDUM/B LONGUM ([employer] [facility] ORAL) Take 1 tablet by mouth once daily. 0 Active L GASSERI/B BIFI DUM/B LONGUM ([employer] [facility] ORAL) Take by mouth. 0 Active [...] 05/12/2021 Discontinued take 1 capsule by mo [facility] twice daily potassium chloride 10 mEq oral capsule, extended release ; 1 cap(s) orally 2 times a day Quantity: 0 Refills: 0 Ordered: 18-Apr-2019 Betzaida Orozco Generic Substitution Allowed Comment on above: [facility]. 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 Nile Allen, RN 03/01/2025 9:52 AM Signed Spoke with Aurora Wolfe, nurse practitioner @ . Verified last name and of patient. Aurora will be assuming care for Rosita, under palliative services. Aurora states that patient has some sort of uterine or bladder cancer, per patients ilkajynr-aa-bks. Patient has been experiencing frequent UTI symptoms- [...] Aurora can be contacted with questions at [phone] at any time. = Routing to Dr. [...] 08/05/2015 O (more content not included)... Normal [facility] Bacteria identifiedon 2024 Bacteria identified Cx Nom (U) Test: Urine Culture Specimen Source: Clean Catch/Voided Specimen Type: Urine Specimen Date: 02/13/2025 1239 Result Date: 02/15/2025 0851 Result Status: Final result Abnormal: No Resulting Lab: [facility] [address] [facility] [address] CULTURE No growth Normal [facility] Comment on above: Performed By: #### 1 9123-9 #### NAGY GONZALO ([id number]) [facility] ([facility]) [address] [place] [address] No Panel Informationon 02-13 Interpretation and review of laboratory results Abnormal [facility] Urinalysis complete W Reflex Culture panel (U)on 02-13-2025 Appearance (U) Turbid Abnormal Clear [facility] Bilirubin (U) [Mass/Vol] Negative NEGATIVE mg/dL [facility] Color (U) Yellow Light-Yellow, Yellow, Dark-Yellow [facility] Glucose Auto test strip (U) [Mass/Vol] Normal Normal mg/dL [facility] Ketones (U) [Mass/Vol] Negative NEGATIVE mg/d L [facility] Leukocyte esterase Auto test strip Ql (U) 250 [place]/uL Abnormal NEGATIVE [facility] Nitrite Auto test strip Ql (U) Negative NEGATIVE [facility] pH (U) 6.5 [pH] 5.0, 5.5, 6.0, 6.5, 7.0, 7.5, 8.0 [facility] Protein (U) [Mass/Vol] 100 (2+) Abnormal NEGAT JAIMIE, 10 (TRACE), 20 (TRACE) mg/dL [facility] RBC (U) [#/Vol] OVER (3+) Abnormal NEGATIVE mg/dL [facility] Specific gravity (U) [Rel density] 1.032 1.005 - 1.035 [facility] Urobilinogen (U) [Mass/Vol] Normal Normal mg/dL [facility] OVER is reported whe n the result is greater than the clinically reportable range. [facility] Appearance (U) Turbid Normal Clear [facility] Comment on above: Order Comment: OVER is reported when the result is greater than the clinically reportable range. Performed By: #### 1 9123-9 #### LILO SÁNCHEZ ([id number]) [facility] ([facility]) [address] [place], [place] [address] Bilirubin (U) [Mass/Vol] Negative Normal NEGATIVE [facility] Comment on above: Order Comment: OVER is reported when the result is greater than the clinically reportable range. Performed By: #### 1 9123-9 #### LILO SÁNCHEZ ([id number]) [facility] ([facility]) [address] [place], [place] [address] Color (U) Yellow Normal Light-Yellow, Yellow, Dark-Yellow [facility] Comment on above: Order Comment: OVER is reported when the result is greater than the clinically reportable range. Performed By: #### 1 9123-9 #### LILO SÁNCHEZ ([id number]) [facility] ([facility]) [facility] [place] [address] Glucose Auto test strip (U) [Mass/Vol] Normal Normal Normal [facility] Comment on above: Order Comment: OVER is reported when the result is greater than the clinically reportable range. Performed By: #### 1 9123-9 #### ILLO SÁNCHEZ ([id number]) [facility] ([facility]) [address] [place], [place] [address] Ketones (U) [Mass/Vol] Negative Normal NEGATIVE [facility] Comment on above: Order Comment: OVER is reported when the result is greater than the clinically reportable range. Performed By: #### 1 9123-9 #### LILO SÁNCHEZ ([id number]) [facility] ([facility]) [facility] [place] [address] Leukocyte esterase Auto test strip Ql (U) 250 [place]/uL Abnormal NEGATIVE [facility] Comment on above: Order Comment: OVER is reported when the result is greater than the clinically reportable range. Performed By: #### 1 9123-9 #### LILO SÁNCHEZ ([id number]) [facility] ([facility]) [address] [place] [address] Nitrite Auto test strip Ql (U) Negative Normal NEGATIVE [facility] Comment on above: Order Comment: OVER is reported when the result is greater than the clinically reportable range. Performed By: #### 1 9123-9 #### LILO SÁNCHEZ ([id number]) [facility] ([facility]) [address] [place] [address] pH (U) 6.5 [pH] Normal 5.0, 5.5, 6.0, 6.5, 7.0, 7.5, 8.0 [facility] Comment on above: Order Comment: OVER is reported when the result is greater than the clinically reportable range. Performed By: #### 1 9123-9 #### LILO SÁNCHEZ ([id number]) [facility] ([facility]) [address] [place] [address] Protein (U) [Mass/Vol] 100 (2+) Abnormal NEGAT JAIMIE, 10 (TRACE), 20 (TRACE) [facility] Comment on above: Order Comment: OVER is reported when the result is greater than the clinically reportable range. Performed By: #### 1 9123-9 #### LILO SÁNCHEZ ([id number]) [facility] ([facility]) [address] [place] [address] RBC (U) [#/Vol] OVER (3+) Abnormal NEGATIVE [facility] Comment on above: Order Comment: OVER is reported when the result is greater than the clinically reportable range. Performed By: #### 1 9123-9 #### LILO SÁNCHEZ ([id number]) [facility] ([facility]) [address] [place] [address] Specific gravity (U) [Rel density] 1.032 Normal 1.005-1.035 [facility] Comment on above: Order Comment: OVER is reported when the result is greater than the clinically reportable range. Performed By: #### 1 9123-9 #### LILO SÁNCHEZ ([id number]) [facility] ([facility]) [address] [place] [address] Urobilinogen (U) [Mass/Vol] Normal Normal Normal [facility] Comment on above: Order Comment: OVER is reported when the result is greater than the clinically reportable range. Performed By: #### 1 9123-9 #### LILO SÁNCHEZ ([id number]) [facility] ([facility]) [address] [place] [address] Urinalysis microscopic panel Auto Ql (U)on 02-13-2025 Bacteria Auto (Urine sed) [#/Area] 1+ Abnormal NONE SEEN /HPF [facility] Calcium oxalate crystals Computer assisted (U) [#/Area] 1+ NONE, 1+ /HPF [facility] Hyaline casts Auto (Urine sed) [#/Area] 3+ Abnormal NONE /LPF [facility] Mucus Auto (Urine sed) [#/Area] FEW Reference range not established. /LPF [facility] RBC Auto (Urine sed) [#/Area] >20 Abnormal NONE, 1-2, 3-5 /HPF [facility] WBC Auto (Urine sed) [#/Area] >50 Abnormal 1-5, NONE /HPF [facility] Bacteria Auto (Urine sed) [#/Area] 1+ /HPF Abnormal NONE SEEN [facility] Comment on above: Performed By: #### 1 9123-9 #### LILO SÁNCHEZ ([id number]) [facility] ([facility]) [address] [place] [address] Calcium oxalate crystals Computer assisted (U) [#/Area] 1+ /HPF Normal NONE, 1+ [facility] Comment on above: Performed By: #### 1 9123-9 #### LILO SÁNCHEZ ([id number]) [facility] ([facility]) [address] [place] [address] Hyaline casts Auto (Urine sed) [#/Area] 3+ /LPF Abnormal NONE [facility] Comment on above: Performed By: #### 1 9123-9 #### LILO SÁNCHEZ ([id number]) [facility] ([facility]) [address] [place] [address] Mucus Auto (Urine sed) [#/Area] FEW Normal Reference range not established. [facility] Comment on above: Performed By: #### 1 9123-9 #### LILO SÁNCHEZ ([id number]) [facility] ([facility]) [facility] [place] [address] RBC Auto (Urine sed) [#/Area] >20 Abnormal NONE, 1-2, 3-5 [facility] Comment on above: Performed By: #### 1 9123-9 #### LILO SÁNCHEZ ([id number]) [facility] ([facility]) [address] [place] [address] WBC Auto (Urine sed) [#/Area] >50 Abnormal 1-5, NONE [facility] Comment on above: Performed By: #### 1 9123-9 #### LILO SÁNCHEZ ([id number]) [facility] ([facility]) [address] [place] [address] Urine Cultureon 10-21-2024 [facility] Proteus mirabilis [place] Count 80,000-100,000 Proteus mirabilis: REACTION Ampicillin Islt CRYSTAL <=2 Ampicillin+Sulbac Islt CRYSTAL <=2 S Cefepime Islt CRYSTAL <=0.12 S cefTRIAXone Islt CRYSTAL <=0.25 S Ciprofloxacin Islt CRYSTAL <=0.06 S Gentamicin Islt CRYSTAL <=1 S levoFLOXacin Islt CRYSTAL <=0.12 S Meropenem Islt CRYSTAL 0.5 S Nitrofurantoin Islt CRYSTAL R Pip+Tazo Islt CRYSTAL <=4 S TMP SMX Islt CRYSTAL <=20 S Normal Comment on above: Performed By: #### M 100.2200 #### Laboratory [address] [place], [place], [address] XR CHEST 2 VIEWSon 4 XR CHEST 2 VIEWS Interpreted By: Torres Little, STUDY: XR CHEST 2 VIEWS; 08/19/2024 12:50 pm INDICATION: Signs/Symptoms:cough COMPARISON: CT angiogram 12/01/2018 ACCESSION NUMBER(S): [id number] ORDERING CLINICIAN: PAMELA MANOCCHIO TECHNIQUE: Frontal and [...] Torres Little 08/19/2024 1:21 PM Dictation workstation: [id number] [facility] XR Chest 2 Viewson 4 No focal consolidation. MACRO None Signed by: Torres Little 08/19/2024 1:21 PM Dictation workstation: [id number] MMODAL Interpreted By: Torres Little, STUDY: XR CHEST 2 VIEWS; 08/19/2024 12:50 pm INDICATION: Signs/Symptoms:cough COMPARISON: CT angiogram 12/01/2018 ACCESSION NUMBER(S): [id number] ORDERING CLINICIAN: PAMELA CABA TECHNIQUE: Frontal and [...] Signs/Symptoms:cough COMPARISON: CT angiogram 12/01/2018 ACCESSION NUMBER(S): [id number] ORDERING CLINICIAN: PAMELA CABA TECHNIQUE: Frontal and [...] Torres Little 08/19/2024 1:21 PM Dictation workstation: [id number] [facility] Work Phone: Radiology Study observation (narrative) [facility] Work Phone: XR Chest 2 ViewsOrdered By: Torres Little on 08-19-2024 [facility] Work Phone: POCT SARS-COV-2/FLU/RSV PCR SYMPTOMATIC manually resultedon 08-17-2024 FLUAV RNA NURYS+probe Ql (Resp) Not detected Not Detected [facility] Work Phone: FLUBV RNA NURYS+probe Ql (Resp) Not detected Not Detected [facility] Work Phone: Interpretation and review of laboratory results Normal [facility] Work Phone: RSV RNA NURYS+probe Ql (Resp) Not detected Not Detected [facility] Work Phone: SARS-CoV-2 (COVID-19) RNA NURYS+probe Ql (Resp) Not detected Not Detected [facility] Work Phone: [facility] Work Phone: Bacteria identifiedon 2023 Bacteria identified Cx Nom (U) Test: Urine culture Specimen Source: Clean Catch/Voided Specimen Type: Urine Specimen Date: 08/08/2024 1322 Result Date: 08/09/2024 1840 Result Status: Final result Abnormal: No Resulting Lab: [facility] [address] [place] [address] CULTURE Clinically insignificant growth based on current clinical standards. [facility] Comment on above: Performed By: #### 6 30-4 #### EDI Wiseman ([id number]) [facility] ([facility]) [address] [place] [address] POCT UA (nonautomated w/o mi croscopy) manually resultedOrdered By: Lisseth Cowan on 08-08-2024 Appearance (U) Clear Clear [facility] Glucose Test strip (U) [Mass/Vol] Negative NEGATIVE mg/dl [facility] Hemoglobin Ql (U) LARGE (3+) Abnormal NEGATIVE [facility] Interpretation and review of laboratory results Abnormal [facility] Leukocyte esterase Test strip Ql (U) SMALL (1+) Abnormal NEGATIVE [facility] Nitrite Ql (U) Negative NEGATIVE [facility] pH (U) 6.0 [pH] No Reference Range Established [facility] POC Bilirubin, Urine Negative NEGATIVE Univ [facility] POC Color, Urine [place] Abnormal Straw, [place] ow, Light-Yellow [facility] POC Ketones, Urine Negative NEGATIVE mg/dl [facility] POC Protein, Urine 300 (3+) Abnormal NEGATIVE, 30 (1+) mg/dl [facility] POC Specific [place], Urine 1.020 1.005 - 1.035 [facility] POC Urobilinogen, Urine 0.2 0.2, 1.0 EU/ DL [facility] GLUCOSE, BLOOD (POC)on 04-17 Glucose [Mass/Vol] 89 mg/dL 74 - 99 mg/dL [facility] Comment on above: Location:[facility], [address] [place] [address], [address] The Accu-Chek Inform II glucose meter has [...] blood gas instrument) in the above situations. [facility] NM PET/CT SKULL-THIGH SUBQon 04-17-2024 NM PET/CT SKULL-THIGH SUBQ * * *Final Report* * * DATE OF EXAM: Apr 17 2024 1:16PM MDP 0063 - NM PET/CT SKULL-THIGH SUBQ / PROCEDURE REASON: Q49-Ufnzroxmn neoplasm of uterus, unspecified site (HCC) * [...] * Uptake Time: 44 minutes * Radiopharmaceutical: Q27-Ahkxvhusbfpbprtsp e (FDG) COMPARISON: [facility] PET/CT 05/20/2023, 02/17/2023, [...] enlarged le (more content not included)... Normal [facility] Bacteria identifiedon 2023 Bacteria identified Cx Nom (U) Test: Urine Culture Specimen Source: Straight Catheter Specimen Type: Urine Specimen Date: 03/11/2024 1132 Result Date: 03/12/202446 Result Status: Final result Abnormal: No Resulting Lab: [facility] [address] [place] [address] CULTURE No growth Normal [facility] Comment on above: Performed By: #### 6 30-4 #### EDI Wiseman ([id number]) [facility] ([facility]) [address] [place] [address] Urinalysis complete panel (U )on 03-11-2024 Appearance (U) Turbid Normal Clear [facility] Comment on above: Performed By: #### 2 4356-8 #### LILO SÁNCHEZ ([id number]) [facility] ([facility]) [address] [place] [address] Bilirubin (U) [Mass/Vol] Negative Normal NEGATIVE [facility] Comment on above: Performed By: #### 2 4356-8 #### LILO SÁNCHEZ ([id number]) [facility] ([facility]) [address] [place] [address] Color (U) Red-brown Normal Straw, Yellow [facility] Comment on above: Performed By: #### 2 4356-8 #### LILO SÁNCHEZ ([id number]) [facility] ([facility]) [address] [place] [address] Glucose Auto test strip (U) [Mass/Vol] Normal Normal Normal [facility] Comment on above: Performed By: #### 2 4356-8 #### LILO SÁNCHEZ ([id number]) [facility] ([facility]) [address] [place] [address] Ketones (U) [Mass/Vol] Negative Normal NEGATIVE [facility] Comment on above: Performed By: #### 2 4356-8 #### LILO SÁNCHEZ ([id number]) [facility] ([facility]) [address] [place] [address] Leukocyte esterase Auto test strip Ql (U) 250 [place]/???L Abnormal NEGATIVE [facility] Comment on above: Performed By: #### 2 4356-8 #### LILO SÁNCHEZ ([id number]) [facility] ([facility]) [address] [place] [address] Nitrite Auto test strip Ql (U) Negative Normal NEGATIVE [facility] Comment on above: Performed By: #### 2 435-8 #### LILO SÁNCHEZ ([id number]) [facility] ([facility]) [address] [place] [address] pH (U) 6.0 [pH] Normal 5.0, 5.5, 6.0, 6.5, 7.0, 7.5, 8.0 [facility] Comment on above: Performed By: #### 2 435-8 #### LILO SÁNCHEZ ([id number]) [facility] ([facility]) [address] [place] [address] 44646 Protein (U) [Mass/Vol] 200 (2+) Abnormal NEGAT JAIMIE, 10 (TRACE), 20 (TRACE) [facility] Comment on above: Performed By: #### 2 4356-8 #### LILO SÁNCHEZ ([id number]) [facility] ([facility]) [address] [place] [address] 57133 RBC (U) [#/Vol] OVER (3+) Abnormal NEGATIVE [facility] Comment on above: Performed By: #### 2 4356-8 #### LILO SÁNCHEZ ([id number]) [facility] ([facility]) [address] [place] [address] 23041 Specific gravity (U) [Rel density] 1.023 Normal 1.005-1.035 [facility] Comment on above: Performed By: #### 2 4356-8 #### LILO SÁNCHEZ ([id number]) [facility] ([facility]) [address] [place] [address] 70995 Urobilinogen (U) [Mass/Vol] Normal Normal Normal [facility] Comment on above: Performed By: #### 2 4356-8 #### LILO SÁNCHEZ ([id number]) [facility] ([facility]) [address] [place] [address] 57637 Urinalysis microscopic panel Auto Ql (U)on 03-11-2024 Epithelial cells.squamous Auto (Urine sed) [#/Area] 1-9 (SPARSE) Normal Reference range not established. [facility] Comment on above: Performed By: #### 5 3315-8 #### LILO SÁNCHEZ ([id number]) [facility] ([facility]) [address] [place] [address] Mucus Auto (Urine sed) [#/Area] FEW Normal Reference range not established. [facility] Comment on above: Performed By: #### 5 3315-8 #### LILO SÁNCHEZ ([id number]) [facility] ([facility]) [address] [place] [address] 09549 RBC Auto (Urine sed) [#/Area] >20 Abnormal NONE, 1-2, 3-5 [facility] Comment on above: Performed By: #### 5 3315-8 #### LILO SÁNCHEZ ([id number]) [facility] ([facility]) [address] [place] [address] 17728 WBC Auto (Urine sed) [#/Area] >50 Abnormal 1-5, NONE [facility] Comment on above: Performed By: #### 5 3315-8 #### LILO SÁNCHEZ ([id number]) [facility] ([facility]) [address] [place] [address] 24372 Bacteria identifiedon 2023 Bacteria identified Cx Nom (U) Test: Urine Culture Specimen Source: Clean Catch/Voided Specimen Type: Urine Specimen Date: 02/25/2024 1455 Result Date: 02/27/2024 0912 Result Status: Final result Abnormal: No Resulting Lab: [facility] [id number] [place] [address] 00087 CULTURE No significant growth Normal [facility] Comment on above: Performed By: #### 6 30-4 #### EDI Wiseman ([id number]) [facility] ([facility]) [address] [place] [address] CBC W Auto Differential pane l (Bld)on 02-25-2024 Basophils (Bld) [#/Vol] 0.05 10*3/uL [facility] Basophils/100 WBC (Bld) 0.6 % 0.0 - 2.0 % [facility] Eosinophils (Bld) [#/Vol] 0.55 10*3/uL High [facility] Eosinophils/100 WBC (Bld) 6.4 % 0.0 - 6.0 % [facility] Erythrocyte distribution width (RBC) [Ratio] 15.0 % High 11.5 - 14.5 % [facility] Hematocrit (Bld) [Volume fraction] 37.0 % 36.0 - 46.0 % [facility] Hemoglobin (Bld) [Mass/Vol] 10.8 g/dL Low 12.0 - 16.0 g/dL [facility] Immature granulocytes (Bld) [#/Vol] 0.03 10*3/uL [facility] Immature granulocytes/100 WBC (Bld) 0.4 % 0.0 - 0.9 % [facility] Comment on above: Immature Granulocyte Count (IG) includes promyelocytes, myelocytes and metamyelocytes but does not include bands. Percent differential counts (%) should be interpreted in the context of the absolute cell counts (cells/UL). Interpretation and review of laboratory results Abnormal [facility] Lymphocytes (Bld) [#/Vol] 1.54 10*3/uL [facility] Lymphocytes/100 WBC (Bld) 18.0 % 13.0 - 44.0 % [facility] MCH (RBC) [Entitic mass] 25.2 pg Low 26.0 - 34.0 pg [facility] MCHC (RBC) [Mass/Vol] 29.2 g/dL Low 32.0 - 36.0 g/dL [facility] MCV (RBC) [Entitic vol] 86 fL 80 - 100 fL [facility] Monocytes (Bld) [#/Vol] 0.75 10*3/uL [facility] Monocytes/100 WBC (Bld) 8.8 % 2.0 - 10.0 % [facility] Neutrophils (Bld) [#/Vol] 5.64 10*3/uL High [facility] Comment on above: Percent differential counts (%) should be interpreted in the context of the absolute cell counts (cells/uL). Neutrophils/100 WBC (Bld) 65.8 % 40.0 - 80.0 % [facility] Nucleated RBC/100 WBC (Bld) [Ratio] 0.0 % [facility] Platelets (Bld) [#/Vol] 363 10*3/uL [facility] RBC (Bld) [#/Vol] 4.28 10*6/uL [facility] WBC (Bld) [#/Vol] 8.6 10*3/uL [facility] Basophils (Bld) [#/Vol] 0.05 x10*3/uL Normal 0.00-0.10 [facility] Comment on above: Performed By: #### 5 7021-8 #### LILO SÁNCHEZ ([id number]) [facility] ([facility]) [address] [place] [address] 56042 Basophils/100 WBC (Bld) 0.6 % Normal 0.0-2.0 [facility] Comment on above: Performed By: #### 5 7021-8 #### LILO SÁNCHEZ ([id number]) [facility] ([facility]) [address] [place] [address] Eosinophils (Bld) [#/Vol] 0.55 x10*3/uL High 0.00-0.40 [facility] Comment on above: Performed By: #### 5 7021-8 #### LILO SÁNCHEZ ([id number]) [facility] ([facility]) [facility] [place] [address] Eosinophils/100 WBC (Bld) 6.4 % Normal 0.0-6.0 [facility] Comment on above: Performed By: #### 5 7021-8 #### LILO SÁNCHEZ ([id number]) [facility] ([facility]) [address] [place] [address] Erythrocyte distribution width (RBC) [Ratio] 15.0 % High 11.5-14.5 [facility] Comment on above: Performed By: #### 5 7021-8 #### LILO SÁNCHEZ ([id number]) [facility] ([facility]) [address] [place] [address] Hematocrit (Bld) [Volume fraction] 37.0 % Normal 36.0-46.0 [facility] Comment on above: Performed By: #### 5 7021-8 #### LILO SÁNCHEZ ([id number]) [facility] ([facility]) [address] [place] [address] Hemoglobin (Bld) [Mass/Vol] 10.8 g/dL Low 12.0-16.0 [facility] Comment on above: Performed By: #### 5 7021-8 #### LILO SÁNCHEZ ([id number]) [facility] ([facility]) [address] [place], [place] [address] Immature granulocytes (Bld) [#/Vol] 0.03 x10*3/uL Normal 0.00-0.50 [facility] Comment on above: Performed By: #### 5 7021-8 #### LILO SÁNCHEZ ([id number]) [facility] ([facility]) [address] [place], [place] [address] Immature granulocytes/100 WBC (Bld) 0.4 % Normal 0.0-0.9 [facility] Comment on above: Result Comment: Le ture Granulocyte Count (IG) includes promyelocytes, myelocytes and metamyelocytes but does not include bands. Percent differential counts (%) should be interpreted in the context of the absolute cell counts (cells/UL). Performed By: #### 5 7021-8 #### LILO SÁNCHEZ ([id number]) [facility] ([facility]) [address] [place] [address] 39349 Lymphocytes (Bld) [#/Vol] 1.54 x10*3/uL Normal 0.80-3.00 [facility] Comment on above: Performed By: #### 5 7021-8 #### LILO SÁNCHEZ ([id number]) [facility] ([facility]) [address] [place] [address] 58947 Lymphocytes/100 WBC (Bld) 18.0 % Normal 13.0-44.0 [facility] Comment on above: Performed By: #### 5 7021-8 #### LILO SÁNCHEZ ([id number]) [facility] ([facility]) [address] [place] [address] 18670 MCH (RBC) [Entitic mass] 25.2 pg Low 26.0-34.0 [facility] Comment on above: Performed By: #### 5 7021-8 #### LILO SÁNCHEZ ([id number]) [facility] ([facility]) [address] [place] [address] 18140 MCHC (RBC) [Mass/Vol] 29.2 g/dL Low 32.0-36.0 [facility] Comment on above: Performed By: #### 5 7021-8 #### LILO SÁNCHEZ ([id number]) [facility] ([facility]) [address] [place] [address] 25248 MCV (RBC) [Entitic vol] 86 fL Normal 80-100 [facility] Comment on above: Performed By: #### 5 7021-8 #### LILO SÁNCHEZ ([id number]) [facility] ([facility]) [address] [place] [address] 52209 Monocytes (Bld) [#/Vol] 0.75 x10*3/uL Normal 0.05-0.80 [facility] Comment on above: Performed By: #### 5 7021-8 #### LILO SÁNCHEZ ([id number]) [facility] ([facility]) [address] [place] [address] 68951 Monocytes/100 WBC (Bld) 8.8 % Normal 2.0-10.0 [facility] Comment on above: Performed By: #### 5 7021-8 #### LILO SÁNCHEZ ([id number]) [facility] ([facility]) [address] [place] [address] 57865 Neutrophils (Bld) [#/Vol] 5.64 x10*3/uL High 1.60-5.50 [facility] Comment on above: Result Comment: Perc ent differential counts (%) should be interpreted in the context of the absolute cell counts (cells/uL). Performed By: #### 5 7021-8 #### LILO SÁNCHEZ ([id number]) [facility] ([facility]) [address] [place] [address] 58569 Neutrophils/100 WBC (Bld) 65.8 % Normal 40.0-80.0 [facility] Comment on above: Performed By: #### 5 7021-8 #### LILO SÁNCHEZ ([id number]) [facility] ([facility]) [address] [place] [address] 20132 Nucleated RBC/100 WBC (Bld) [Ratio] 0.0 /100 WBCs Normal 0.0-0.0 [facility] Comment on above: Performed By: #### 5 7021-8 #### LILO SÁNCHEZ ([id number]) [facility] ([facility]) [address] [place] [address] 74626 Platelets (Bld) [#/Vol] 363 x10*3/uL Normal 150-450 [facility] Comment on above: Performed By: #### 5 7021-8 #### LILO SÁNCHEZ ([id number]) [facility] ([facility]) [address] [place] [address] 74815 RBC (Bld) [#/Vol] 4.28 x10*6/uL Normal 4.00-5.20 [facility] Comment on above: Performed By: #### 5 7021-8 #### LILO SÁNCHEZ ([id number]) [facility] ([facility]) [address] [place] [address] 65366 WBC (Bld) [#/Vol] 8.6 x10*3/uL Normal 4.4-11.3 [facility] Comment on above: Performed By: #### 5 7021-8 #### NAGY GONZALO ([id number]) [facility] ([facility]) [address] [place] [address] CT ABDOMEN PELVIS W IV CONTR Nay 02-25-2024 CT ABDOMEN PELVIS W IV CONTRAST Interpreted By: Jason Orellana, STUDY: CT ABDOMEN PELVIS W IV CONTRAST; 02/25/2024 3:50 pm INDICATION: Signs/Symptoms:abdomi nal distention. COMPARISON: 08/08/2012 ACCESSION NUMBER(S): [id number] ORDERING CLINICIAN: BAHMAN ANN TECHNIQUE: CT of [...] Jason Orellana 02/25/2024 4:43 PM Dictation workstation: [id number] [facility] CT Abdomen and Pelvis W cont [...] Jason Orellana 02/25/2024 4:43 PM Dictation workstation: [id number] Interpreted By: Jason Orellana, STUDY: CT ABDOMEN PELVIS W IV CONTRAST; 02/25/2024 3:50 pm INDICATION: Signs/Symptoms:abdomi nal distention. COMPARISON: 08/08/2012 ACCESSION NUMBER(S): [id number] ORDERING CLINICIAN: BAHMAN ANN TECHNIQUE: CT of [...] Signs/Symptoms:abdomi nal distention. COMPARISON: 08/08/2012 ACCESSION NUMBER(S): [id number] ORDERING CLINICIAN: BAHMAN ANN TECHNIQUE: CT of [...] Jason Orellana 02/25/2024 4:43 PM Dictation workstation: [id number] [facility] Work Phone: [facility] Work Phone: CT HEAD WO IV CONTRASTon CT HEAD WO IV CONTRAST Interpreted By: Jason Orellana, STUDY: CT HEAD WO IV CONTRAST; 02/25/2024 3:50 pm INDICATION: Signs/Symptoms:dizzin ess. COMPARISON: 12/13/2018 ACCESSION NUMBER(S): [id number] ORDERING CLINICIAN: BAHMAN ANN TECHNIQUE: Noncontrast axial [...] Jason Orellana 02/25/2024 4:30 PM Dictation workstation: [id number] [facility] CT Head WO contraston 2023 No evidence of acute cortical infarct or intracranial hemorrhage. No evidence of intracranial hemorrhage or displaced skull fracture. MACRO: None Signed by: Jason Orellana 02/25/2024 4:30 PM Dictation workstation: [id number] MMODAL Interpreted By: Jason Orellana, STUDY: CT HEAD WO IV CONTRAST; 02/25/2024 3:50 pm INDICATION: Signs/Symptoms:dizzin ess. COMPARISON: 12/13/2018 ACCESSION NUMBER(S): [id number] ORDERING CLINICIAN: BAHMAN ANN TECHNIQUE: Noncontrast axial [...] INDICATION: Signs/Symptoms:dizzin ess. COMPARISON: 12/13/2018 ACCESSION NUMBER(S): [id number] ORDERING CLINICIAN: BAHMAN ANN TECHNIQUE: Noncontrast axial [...] Jason Orellana 02/25/2024 4:30 PM Dictation workstation: [id number] [facility] Work Phone: CT Head WO contrastOrdered B y: Jason Orellana on 02-25-2024 [facility] Work Phone: Comprehensive metabolic 2000 panelon 02-25-2024 Albumin BCP dye [Mass/Vol] 4.5 g/dL 3.4 - 5.0 g/dL [facility] ALP [Catalytic activity/Vol] 83 U/L 33 - 136 U/L [facility] ALT With P-5'-P [Catalytic activity/Vol] 8 U/L 7 - 45 U/L [facility] Comment on above: Patients treated wit h Sulfasalazine may generate falsely decreased results for ALT. Anion gap [Moles/Vol] 12 mmol/L 10 - 20 mmol/L [facility] AST With P-5'-P [Catalytic activity/Vol] 17 U/L 9 - 39 U/L [facility] Bilirubin [Mass/Vol] 0.3 mg/dL 0.0 - 1 .2 mg/dL [facility] Calcium [Mass/Vol] 9.3 mg/dL 8.6 - 10. 3 mg/dL [facility] Chloride [Moles/Vol] 107 mmol/L 98 - 10 7 mmol/L [facility] CO2 [Moles/Vol] 29 mmol/L 21 - 32 mmol/L [facility] Creatinine [Mass/Vol] 0.79 mg/dL 0.50 - 1.05 mg/dL [facility] GFR/1.73 sq M.predicted among non-blacks MDRD (S/P/Bld) [Vol rate/Area] 78 mL/min/{1.73_m2} - PINF [facility] Comment on above: Calculations of jefry mated GFR are performed using the 2020 CKD-EPI Study Refit equation without the race variable for the IDMS-Traceable creatinine methods. https://jasn.asnjournals.org/content/early/ASN.2020 343116 Glucose [Mass/Vol] 98 mg/dL 74 - 99 mg/dL [facility] Potassium [Moles/Vol] 3.8 mmol/L 3.5 - 5.3 mmol/L [facility] Protein [Mass/Vol] 6.8 g/dL 6.4 - 8.2 g/dL [facility] Sodium [Moles/Vol] 144 mmol/L 136 - 145 mmol/L [facility] Urea nitrogen [Mass/Vol] 23 mg/dL 6 - 23 mg/dL [facility] Albumin BCP dye [Mass/Vol] 4.5 g/dL Normal 3.4-5.0 [facility] Comment on above: Performed By: #### 2 4323-8 #### LILO SÁNCHEZ ([id number]) [facility] ([facility]) [address] [place] [address] ALP [Catalytic activity/Vol] 83 U/L Normal 33-136 [facility] Comment on above: Performed By: #### 2 4323-8 #### LILO SÁNCHEZ ([id number]) [facility] ([facility]) [address] [place] [address] ALT With P-5'-P [Catalytic activity/Vol] 8 U/L Normal 7-45 [facility] Comment on above: Result Comment: Brigid ents treated with Sulfasalazine may generate falsely decreased results for ALT. Performed By: #### 2 4323-8 #### LILO SÁNCHEZ ([id number]) [facility] ([facility]) [address] [place] [address] Anion gap [Moles/Vol] 12 mmol/L Normal 10-20 [facility] Comment on above: Performed By: #### 2 4323-8 #### LILO SÁNCHEZ ([id number]) [facility] ([facility]) [address] [place] [address] 34519 AST With P-5'-P [Catalytic activity/Vol] 17 U/L Normal 9-39 [facility] Comment on above: Performed By: #### 2 4323-8 #### LILO SÁNCHEZ ([id number]) [facility] ([facility]) [address] [place] [address] Bilirubin [Mass/Vol] 0.3 mg/dL Normal 0.0-1.2 [facility] Comment on above: Performed By: #### 2 4323-8 #### LILO SÁNCHEZ ([id number]) [facility] ([facility]) [address] [place] [address] Calcium [Mass/Vol] 9.3 mg/dL Normal 8.6-10.3 [facility] Comment on above: Performed By: #### 2 4323-8 #### LILO SÁNCHEZ ([id number]) [facility] ([facility]) [address] [place] [address] Chloride [Moles/Vol] 107 mmol/L Normal 98-107 [facility] Comment on above: Performed By: #### 2 4323-8 #### LILO SÁNCHEZ ([id number]) [facility] ([facility]) [address] [place] [address] CO2 [Moles/Vol] 29 mmol/L Normal 21-32 [facility] Comment on above: Performed By: #### 2 4323-8 #### LILO SÁNCHEZ ([id number]) [facility] ([facility]) [address] [place] [address] 10377 Creatinine [Mass/Vol] 0.79 mg/dL Normal 0.50-1.05 [facility] Comment on above: Performed By: #### 2 432-8 #### LILO SÁNCHEZ ([id number]) [facility] ([facility]) [address] [place] [address] 10969 Glomerular filtration rate/1.73 sq M.predicted 78 mL/min/1.73m*2 Normal >60 [facility] Comment on above: Result Comment: Calc ulations of estimated GFR are performed using the 2020 CKD-EPI Study Refit equation without the race variable for the IDMS-Traceable creatinine methods. https://jasn.asnjournals.org/content/early/ASN.2020 675927 Performed By: #### 2 432-8 #### LILO SÁNCHEZ ([id number]) [facility] ([facility]) [address] [place] [address] 45662 Glucose [Mass/Vol] 98 mg/dL Normal 74-99 [facility] Comment on above: Performed By: #### 2 4323-8 #### LILO SÁNCHEZ ([id number]) [facility] ([facility]) [address] [place] [address] 24897 Potassium [Moles/Vol] 3.8 mmol/L Normal 3.5-5.3 [facility] Comment on above: Performed By: #### 2 4323-8 #### LILO SÁNCHEZ ([id number]) [facility] ([facility]) [address] [place] [address] 47826 Protein [Mass/Vol] 6.8 g/dL Normal 6.4-8.2 [facility] Comment on above: Performed By: #### 2 4323-8 #### LILO SÁNCHEZ ([id number]) [facility] ([facility]) [address] [place] [address] Sodium [Moles/Vol] 144 mmol/L Normal 136-145 [facility] Comment on above: Performed By: #### 2 4323-8 #### LILO SÁNCHEZ ([id number]) [facility] ([facility]) [facility] [place] [address] Urea nitrogen [Mass/Vol] 23 mg/dL Normal 6-23 [facility] Comment on above: Performed By: #### 2 4323-8 #### LILO SÁNCHEZ ([id number]) [facility] ([facility]) [address] [place], [place] [address] ECG 12-LEADon 02-25-2024 ECG 12-LEAD Ventricular Rate 87 Atrial Rate 87 P-R Interval 148 QRS Duration 66 Q-T Interval 362 QTC Calculation(Bazett) 435 P [place] 72 R [place] 40 T [place] 56 QRS Count 14 Q Onset 228 [...] and clinical correlation Confirmed by Sofiya Calderón ([id number]) on 02/27/2024 10:13:53 AM Normal [facility] Magnesiumon 02-25-2024 Magnesium [Mass/Vol] 1.94 mg/dL 1.60 - 2.40 mg/dL [facility] Magnesium [Mass/Vol] 1.94 mg/dL Normal 1.60-2.40 [facility] Comment on above: Performed By: #### 1 [id number] #### LILO SÁNCHEZ ([id number]) [facility] ([facility]) [address] [place], [place] [id number] No Panel Informationon 02-24 Interpretation and review of laboratory results Abnormal [facility] Radiology Study observation (narrative) [facility] Work Phone: Interpretation and review of laboratory results Normal [facility] Tropinin I.cardiac panel Hig h sensitivity methodon 02-25-2024 Interpretation and review of laboratory results Normal [facility] Less than 99th percentile of normal [...] performed using a different testing methodology at [facility] than at [facility]. Direct result comparisons should only be made within the same method. [facility] Troponin I, High Sensitivity on 02-25-2024 Tropinin I.cardiac panel High sensitivity method 8 ng/L 0 - 13 ng/L [facility] Troponin I.cardiac panelon 0 02-25-2024 Tropinin I.cardiac panel High sensitivity method 8 ng/L Normal 0-13 [facility] Comment on above: Order Comment: Less than [...] performed using a different testing methodology at [facility] than at [facility]. Direct result comparisons should only be made within the same method. Performed By: #### 8 [id number] #### NAGY GONZALO ([id number]) [facility] ([facility]) [address] [place] [address] Urinalysis complete W Reflex Culture panel (U)on 02-25-2024 Appearance (U) Turbid Abnormal Clear [facility] Bilirubin (U) [Mass/Vol] Negative NEGATIVE [facility] Color (U) Light-[place] Abnormal Light-Yellow, Yellow, Dark-Yellow [facility] Glucose Auto test strip (U) [Mass/Vol] Normal Normal mg/dL [facility] Ketones (U) [Mass/Vol] Negative NEGATIVE mg/d L [facility] Leukocyte esterase Auto test strip Ql (U) 250 [place]/ L Abnormal NEGATIVE [facility] Nitrite Auto test strip Ql (U) Negative NEGATIVE [facility] pH (U) 6.0 [pH] 5.0, 5.5, 6.0, 6.5, 7.0, 7.5, 8.0 [facility] Protein (U) [Mass/Vol] 100 (2+) Abnormal NEGAT JAIMIE, 10 (TRACE), 20 (TRACE) mg/dL [facility] RBC (U) [#/Vol] OVER (3+) Abnormal NEGATIVE [facility] Specific gravity (U) [Rel density] 1.026 1.005 - 1.035 [facility] Urobilinogen (U) [Mass/Vol] Normal Normal mg/dL [facility] Appearance (U) Turbid Normal Clear [facility] Comment on above: Performed By: #### 5 8077-9 #### LILO SÁNCHEZ ([id number]) [facility] ([facility]) [address] [place] [address] Bilirubin (U) [Mass/Vol] Negative Normal NEGATIVE [facility] Comment on above: Performed By: #### 5 8077-9 #### LILO SÁNCHEZ ([id number]) [facility] ([facility]) [address] [place] [address] Color (U) [place] Normal Light-Yellow, Yellow, Dark-Yellow [facility] Comment on above: Performed By: #### 5 8077-9 #### LILO SÁNCHEZ ([id number]) [facility] ([facility]) [address] [place] [address] Glucose Auto test strip (U) [Mass/Vol] Normal Normal Normal [facility] Comment on above: Performed By: #### 5 8077-9 #### LILO SÁNCHEZ ([id number]) [facility] ([facility]) [address] [place] [address] Ketones (U) [Mass/Vol] Negative Normal [facility]IVE [facility] Comment on above: Performed By: #### 5 8077-9 #### LILO SÁNCHEZ ([id number]) [facility] ([facility]) [address] [place] [address] Leukocyte esterase Auto test strip Ql (U) 250 [place]/???L Abnormal NEGATIVE [facility] Comment on above: Performed By: #### 5 8077-9 #### LILO SÁNCHEZ ([id number]) [facility] ([facility]) [address] [place] [address] Nitrite Auto test strip Ql (U) Negative Normal NEGATIVE [facility] Comment on above: Performed By: #### 5 8077-9 #### LILO SÁNCHEZ ([id number]) [facility] ([facility]) [address] [place] [address] pH (U) 6.0 [pH] Normal 5.0, 5.5, 6.0, 6.5, 7.0, 7.5, 8.0 [facility] Comment on above: Performed By: #### 5 8077-9 #### LILO SÁNCHEZ ([id number]) [facility] ([facility]) [address] [place] [address] Protein (U) [Mass/Vol] 100 (2+) Abnormal NEGAT JAIMIE, 10 (TRACE), 20 (TRACE) [facility] Comment on above: Performed By: #### 5 8077-9 #### LILO SÁNCHEZ ([id number]) [facility] ([facility]) [address] [place] [address] RBC (U) [#/Vol] OVER (3+) Abnormal NEGATIVE [facility] Comment on above: Performed By: #### 5 8077-9 #### LILO SÁNCHEZ ([id number]) [facility] ([facility]) [address] [place] [address] Specific gravity (U) [Rel density] 1.026 Normal 1.005-1.035 [facility] Comment on above: Performed By: #### 5 8077-9 #### LILO SÁNCHEZ ([id number]) [facility] ([facility]) [address] [place] [address] Urobilinogen (U) [Mass/Vol] Normal Normal Normal [facility] Comment on above: Performed By: #### 5 8077-9 #### LILO SÁNCHEZ ([id number]) [facility] ([facility]) [address] [place] [address] Urinalysis microscopic panel Auto Ql (U)on 02-25-2024 Bacteria Auto (Urine sed) [#/Area] 1+ Abnormal NONE SEEN /HPF [facility] Epithelial cells.renal Computer assisted (U) [#/Area] 1-2 (FEW) Reference range not established. /HPF [facility] Hyaline casts Auto (Urine sed) [#/Area] 2+ Abnormal NONE /LPF [facility] RBC Auto (Urine sed) [#/Area] >20 Abnormal NONE, 1-2, 3-5 /HPF [facility] WBC Auto (Urine sed) [#/Area] >50 Abnormal 1-5, NONE /HPF [facility] Bacteria Auto (Urine sed) [#/Area] 1+ /HPF Abnormal NONE SEEN [facility] Comment on above: Performed By: #### 5 3315-8 #### LILO SÁNCHEZ ([id number]) [facility] ([facility]) [address] [place] [address] Epithelial cells.renal Computer assisted (U) [#/Area] 1-2 (FEW) Normal Reference range not established. [facility] Comment on above: Performed By: #### 5 3315-8 #### LILO SÁNCHEZ ([id number]) [facility] ([facility]) [address] [place] [address] Hyaline casts Auto (Urine sed) [#/Area] 2+ /LPF Abnormal NONE [facility] Comment on above: Performed By: #### 5 3315-8 #### LILO SÁNCHEZ ([id number]) [facility] ([facility]) [address] [place] [address] RBC Auto (Urine sed) [#/Area] >20 Abnormal NONE, 1-2, 3-5 [facility] Comment on above: Performed By: #### 5 3315-8 #### LILO SÁNCHEZ ([id number]) [facility] ([facility]) [address] [place] [address] WBC Auto (Urine sed) [#/Area] >50 Abnormal 1-5, NONE [facility] Comment on above: Performed By: #### 5 3315-8 #### LILO SÁNCHEZ ([id number]) [facility] ([facility]) [address] [place] [address] BACTERIAL VAGINOSIS NAATon 0 02-09-2024 Lactobacillus crispatus+gasseri+jense martin + Gardnerella vaginalis + Atopobium vaginae rRNA NURYS+probe Ql (Vag fld) Negative Normal Negative for bacterial vaginosis [facility] Comment on above: Order Comment: Speci men Type: SWABOrdering Facility: [facility] Address: [address] [place] [address] Performed By: #### B VAMP, CVTV ####[facility] [id number] [place] [address] [place] GABRIELE/TRICHOMONAS NAATon 0 02-09-2024 C. glabrata RNA NURYS+probe Ql (Vag fld) Negative Normal Negative for Gabriele glabrata [facility] Comment on above: Order Comment: Speci men Type: SWABOrdering Facility: [facility] Address: [address] [place] [address] Performed By: #### B VAMP, CVTV ####[facility] [id number] [place] [address] [place] Gabriele sp DNA NURYS+probe Ql (Vag fld) Positive Abnormal Negative for Gabriele species [facility] Comment on above: Order Comment: Speci men Type: SWABOrdering Facility: [facility] Address: [address] [place] [address] Performed By: #### B VAMP, CVTV ####[facility] [id number] [address] [place] T. vaginalis DNA NURYS+probe Ql (Unsp spec) Negative Normal Negative for Trichomonas vaginalis by amplification [facility] Comment on above: Order Comment: Speci men Type: SWABOrdering Facility: [facility] Address: [address] [place] [address] Performed By: #### B VAMP, CVTV ####[facility] [id number] [address] [place] CNOVon 02-09-2024 CNOV Office Visit (GYNURM ) ROSITA KENNEDY ([id number]) 1945 F Date Time Provider Department 02/09/24 [...] received about pain medications helpful? Not sure Motion Picture Equipment Supervisor offered, exam chaperoned by Veronica Payton MD [...] clobetasol cream (more content not included)... Normal [facility] Stephie 01-17-2024 CNPN Telephone (GYURWP) BRENTROSITA J ([id number]) 1945 F Date Time Provider Department 01/17/24 LUIS ANTONIO FRANKLIN PREMA During your visit today, we recorded the following information about you: Marlyn Beltran 01/17/2024 9:42 AM Addendum Patient called in stating she is feeling very dry, and like she may have an infection. She is also experiencing pain/burning with urination. She said a message was also sent via Apps[employer]t because she isn't feeling too good. Dtr in law would like to be called [phone] Lisseth Mccullough RN 01/17/2024 1:47 PM Signed See my chart Urine culture ordered MONTSE Joel Lisa 01/17/2024 3:46 PM Signed Pt's RUBIO called back and stated that the burning is on the outside and she wants to know if a culture would show something on the outside. She can be reached at [phone]. Deborah Aguilar RN 01/17/2024 4:51 PM Addendum Called pt's Winter BERGERON; verified pt's name/. Winter reports pt has external vaginal pain with urination (contact between urine and vaginal/vulvar tissue causes burning). Winter unsure if pt has other symptoms. RN attempted to call Rosita, but calls went straight to . Called Winter back and advised her we would send a Collision Hub message for her to d/w Rosita and [...] [Z96.1] 0 (more content not included)... Normal [facility] ANES POSTPROC EVALon 024 ANES POSTPROC EVAL HNO ID: [id number] Author: FLORENTIN BARKER MD Service: Anesthesiology Author [...] January 12, 2024 TIME: 1:50 PM CSN: [id number] [facility] ANES PRE-OPon 01-11-2024 ANES PRE-OP HNO ID: [id number] Author: FLORENTIN BARKER MD Service: Anesthesiology Author [...] (iso-osmotic) 100 mL (ANCEF) 2 g INTRAVENOUS Library Information Technician to OR - onabotulinum toxin type A [...] by mouth every (more content not included)... [facility] BRIEF OP NOTon 01-11-2024 BRIEF OP NOT HNO ID: [id number] Author: NICOLE TALAVERA MD Service: Urogynecology Author Type: Fellow Type: Brief Op Note Filed: 01/11/2024 12:31 Note Text: BRIEF OPERATIVE / PROCEDURE NOTE LOG ID: [id number] Surgery/Procedure Date: 01/11/2024 Incision/Procedure Start Time: 12:06 PM Incision Close/Procedure End Time: 12:11 PM Surgeon(s)/Procedural ist(s) and Skimmer Reverberatory(s): Surgeon(s) and Role: * Franklin Salmon MD [...] Kennedy TIME: 12:29 PM PAGER/CONTACT #: Pager [phone] [facility] OPERATIVE NOon 01-11-2024 OPERATIVE NO HNO ID: [id number] Author: FRANKLIN SALMON MD Service: Urogynecology Author Type: Physician Type: Operative Report Filed: 01/11/2024 14:12 Note Text: OPERATIVE/PROCEDURE REPORT LOG ID: [id number]/Proced ure Date: 01/11/2024 Incision/Procedure Start Time: 12:06 PM Incision Close/Procedure End Time: 12:11 PM Surgeon(s)/Procedural ist(s) and Skimmer Reverberatory(s): Surgeon(s) and Role: * Franklin Salmon MD [...] A vaginal sweep was performed by Dr. Taalvera, and was negative. All sponge, instrument, needle count were correct x 2. The patient was extubated without complications and taken to the PACU in stable condition. The primary surgeon, Dr. Salmon, performed the procedure with assistance and was present and scrubbed for the entire procedure. SIGNATURE: Nicole Talavera MD PATIENT NAME: Rostia Kennedy DATE: January 11, 2024 TIME: 2:02 PM PAGER/CONTACT #: [phone] UROGYN STAFF NOTE I agree with this op note. I performed the procedure with assistance and was present and scrubbed for the entire procedure. Franklin Salmon MD [facility] CNCOon 12-31-2023 CNCO Letter Text [facility] Stephie 12-28-2023 ARTI Telephone (JOSE ANTONIOPERNELLO) ROSITA KENNEDY ([id number]) 1945 F Date Time Provider Department 12/28/23 KELLEY STONE During your visit today, we recorded the following information about you: Kelley Stone APRN.TUFTING MACHINE FIXER 12/28/2023 3:[address] Salmon, I [...] not see a response scanned back into Pley. Just wanted to check in to see if you have received anything further and if I can be of any assistance in obtaining anticoagulation instructions. Thank you, Kelley Stone APRN.Monika Lemus RN 12/30/2023 9:46 AM Addendum I called Dr Terry Espino's office regarding fax that was sent on 12/16/23 for Xarelto pre-op instructions but he is a hospitalist at [facility] and not a primary care provider. I called patient and son answered phone and per son Dr Dawood Espino is not the pcp but Dr Guillermo Min is patient's primary but son is unsure if the Xarelto is prescribed by Dr Min. I called Dr Min's office [phone] and left a detailed message on the senior medical director's voicemail to return my call regarding if Dr Min is the prescribing physician of patient's Xarelto. Awaiting call back. MONTSE Sampson Judy A, RN 12/30/2023 2:47 PM Signed I received a call back from Hodan senior medical director from Dr Min's office and she informed me she spoke to Dr iMn regarding holding Xarelto. Per Dr Min he is ok with holding Xarelto as long as it is resumed immediately following surgery the next day. Questioned if ok to hold Xarelto 3 days and per Hodan yes per Dr Min. I explained that we will need to fax a letter for Dr Min to sign and she provided office fax number: [phone]. MONTSE Sampson Judy A, RN 12/31/2023 3:37 [...] Judy A, RN 01/04/2024 2:15 PM Signed Coll[employer] Hub message sent to patient/son with Xarelto instructions. MONTSE Sampson Judy A, RN 01/07/2024 9:11 AM Signed Called and spoke to son Min to inform him that patient needs to start holding her Xarelto tomorrow in preparation for surgery on 01/11/24. Min will see mom today and notify her [...] Date Reviewed: 12/27/2023 Reviewed by: Kelley Stone APRN.TUFTING MACHINE FIXER - Fully Assessed Reason for Visit: Xarelto [...] - brimonidine- (more content not included)... Normal [facility] HISTORY PHYSICALon HISTORY PHYSICAL HNO ID: [id number] Author: KELLEY STONE APRN.TUFTING MACHINE FIXER Service: ? Author Type: Nurse Practitioner Type: [...] their office as no response scanned into Pley at time of PACC appointment. Radiation cystitis [...] large neck Non-male patient STOP-Bang Score: 1 [id number] Score: Age: >=75 Sex: female CHF history: No Hypertension history: No Stroke/TIA/thromboemb olism history: Yes Vascular disease history: No Diabetes history: No [id number] Score: 5 ANESTHESIA FINDINGS: Intubation History: No [...] is currently prescribing Xarelto. Response scanned into [facility] January 03, 2024 and patient is [...] communicated back (more content not included)... Normal [facility] CNPNon 12-24-2023 CNPN Telephone (GYURWP) BRENTROSITA Mela ([id number]) 1945 F Date Time Provider Department 12/24/23 [...] and confused. Veronica can be reached at [phone] Deborah Aguilar, MONTSE 12/24/2023 10:43 AM Signed [...] and that per Dr. Salmon's notes from [facility], no biopsies are planned. Winter verbalized understanding [...] Atrophic vaginiti (more content not included)... [facility] ([id number]) 1945 F Date Time Provider Department 12/24/23 [...] once daily. - L GASSERI/B BIFIDUM/B LONGUM ([facility]) Take 1 tablet by [...] Optic cuppin (more content not included)... [facility]) [facility] ([id number]) 1945 F Date Time Provider Department 12/24/23 FRANKLIN SALMON GYNMN During your visit today, we recorded the following information about you: Shanae Cobian 12/24/2023 2:24 PM Signed Reason for call: other - Provider name: Dr Salmon Additional comments: [facility] caremark mailed letter Drug Utilization review program provides educational information regarding the patient drug therapy. Duplication. Solifenacin and Trospium. Letter scan into epic Recommendation: routed to nurse triage pool Last visit in this department: Visit date not found Last [facility] visit in this department: Visit date [...] Fully Assessed Reason for Visit: Medication Question [0828] Prescriptions as of 12/24/2023 - solifenacin ([facility]) [...] once daily. - L GASSERI/B BIFIDUM/B LONGUM ([facility]) Take 1 tablet by [...] eyes, moder (more content not included)... Normal [facility] 12-09-2023 [facility] ([facility]) BRENTROSITA Mela ([id number]) 1945 F Date Time Provider Department 12/09/23 FRANKLIN SALMON [facility] During your visit today, we recorded the following information about you: Lindsey Reynolds 12/09/2023 11:32 AM Signed Pt son calling. Would like to give update and discuss issues mother is having. Please contact him at [phone] Wanda Maldonado, RN 12/10/2023 4:35 PM Signed S: Rosita Stafford's son, calls to report his mom finished taking the course of Macrobid. He wanted to report that she is still having bleeding. Hard for him to quantify amount of bleeding, but states bleeding is in toilet and on her depends. States his mom reported bleeding was a little senior solutions architect today. Denies any dizziness or light headedness. States they have an appointment on Wednesday with a palliative care doctor in [place] to hopefully help navigates things. That doctor [...] Scheduled patient for tele-visit. Left message on SMS Assistil the date and time. Asked to call [...] mg tablet (more content not included)... Normal [facility]2023 [facility] BRENTROSITA ([id number]) 1945 F Date Time Provider Department 12/08/23 FRANKLIN SALMON During your visit today, we recorded the following information about you: Smitha Belcher 12/08/2023 10:44 AM Signed Called patient's son Rivera and he called the patient on [address], pt accepted 01/11/24 surgery date at , scheduled pre AND post op appts and informed pt teaching appt will not appear on Collision Hub Allergies As of Date: 12/08/2023 Noted Allergy [...] once daily. - L GASSERI/B BIFIDUM/B LONGUM ([facility]) Take 1 tablet by [...] Primary o (more content not included)... Normal [facility] Bacteria identifiedon 2023 Bacteria identified Cx Nom (U) Test: Urine Culture Specimen Source: Clean Catch/Voided Specimen Type: Urine Specimen Date: 12/03/2023 11:04 AM Result Date: 12/05/2023 8:36 AM Result Status: Final result Abnormal: Yes Resulting Lab: [facility] [address] [id number] CULTURE Multiple organisms present, probable contamination. Repeat culture if clinically indicated. (Abnormal) Abnormal [facility] Comment on above: Performed By: #### 6 30-4 #### EDI Wiseman ([id number]) [facility] ([facility]) [address] [place] [address] CNPLeilani 12-03-2023 CNPN Telephone (OBEM) ROSITA KENNEDY ([id number]) 1945 F Date Time Provider Department 12/03/23 FRANKLIN SALMON During your visit today, we recorded the following information about you: Suzie Carver LPN 12/03/2023 12:14 PM Signed Patient son Rivera Kennedy called into [facility] office. URO/CAKE WRINGER nurses are not in today at [place]. Patients son has concerns re blood in patients his mothers urine. Can someone please reach out to son at [phone]. He is her ER contact. Thanks LUIS Roberson Natasha, RN 12/03/2023 3:24 PM Addendum Called and spoke with pts son Rivera who is listed as patients emergency contact in [facility]. Rivera states his mom currently has blood [...] from the pt. Pt also lives in [place] and she does not live close to a [facility]. Allergies: Codeine Comment:hives Contrast Dye [Iodin* Diarrhea Comment:Diarrhea after oral contrast. Erythromycin GI Upset Methylprednisolone Hives Comment:IV Sulfa (Sulfonamide * Comment:hives Pharmacy verified and confirmed in epic Pt currently takes Hiprex daily for frequent UTI's Routing to Urogyn ACCESS ANALYST's to please advise next steps Last office [...] botox 100 units MD Yrn Cortés Natalie, APRN.[employer] 12/03/2023 4:50 PM Addendum I called and spoke with Rsoita's son, Rivera, in follow up. Given last [...] days. Authorizing Provider: JOCELYNN GARDNER APRN.Jocelynn Albright APRN.[employer] 12/03/2023 4:50 (more content not included)... Normal [facility] 12-02-2023 ARTI Telephone (PREMA) ROSITA KENNEDY ([id number]) 1945 F Date Time Provider Department 12/02/23 [...] Name: [employer] Location Tax ID: [id number] NP [id number] Authorization received via portal: [employer] Drug Name(s) AND HCPCS Code(s): Botox J0585 Approval Date Range: 12/07/2023 to 12/06/2024 Approval #: [id number] Dose AND Frequency: 100 units every 90 [...] Fully Assessed Reason for Visit: Care Coordination [6533] Cmt: Botox Prescriptions as of 01/06/2024 - [...] at bedtime. (more content not included)... Normal [facility] 11-24-2023 [facility] Tele[facility] ([facility]) ROSITA KENNEDY ([id number]) 1945 F Date Time Provider Department 11/24/23 FRANKLIN SALMON [facility] During your visit today, we recorded the following information about you: [facility], Pending [facility] 11/24/2023 11:34 AM Signed 1st attempt to contact the patient to schedule surgery. [facility], Pending [facility] 11/26/2023 10:02 AM Signed 2nd attempt to contact the patient to schedule surgery. [facility], Pending [facility] 12/08/2023 10:28 AM Signed 3rd attempt to contact the patient to schedule surgery. [facility] AND sent Collision Hub message Allergies As of Date: 11/24/2023 Noted [...] once daily. - L GASSERI/B BIFIDUM/B LONGUM ([facility] [employer] [facility]) Take 1 tablet by mouth [...] to cytoto (more content not included)... Normal [facility] CNOVon 11-18-2023 CNOV Office Visit (GYURWP ) ROSITA KENNEDY ([id number]) 1945 F Date Time Provider Department 11/18/23 [...] Video-assisted cystourethroscopy was performed using a 19 Monegasque 70 degree cystoscope with saline infusion. The [...] unsuccessful at reaching her, spoke with her ybtiidcm-cz-cly Winter who is present to many appointments. [...] proceed with follow up PET scan with fitness club manager-onc for her metastatic uterine cancer. Last CT in 08/2023 did not reveal pelvic disease, but PET is better evaluation. Possible she has developed malignancy regardless in her bladder. Winter will discus with Rosita red if they want to proceed with bladder biopsy. I discussed next step would be urology consult and management, if desired. typer to call. If Rosita has additional questions she can call our office and schedule virtual visit (or in person) with me prior to. All questions answered. MD Luis Antonio Cortés Alexandra, MD 11/19/2023 4:14 PM Signed Addended by: FRANKLIN SALMON on: 11/19/2023 04:14 PM Modules accepted: Orders Referring Provider: FRANKLIN SALMON [[id number]] Allergies As of Date: 11/18/2023 Noted Allergy Reaction CODEINE 02/24/2001 Comments: hives CONTRAST DYE (IODINE) 03/24/2023 6 - Diarrhea Comments: Diarrhea after oral contrast. ERYTHROMYCIN 08/03/2014 8 - GI Upset METHYLPREDNISOLONE 08/03/2014 4 - Hives Comments: IV SULFA (SULFONAMIDE ANTIBIOTICS) 02/24/2001 Comments (more content not included)... Normal [facility] Telephone (GYURWP) ROSITA KENNEDY ([id number]) 1945 F Date Time Provider Department 10/08/23 [...] the better option. His name is Rivera [phone]. Thanks! Skylar Everett, RN 10/08/2023 4:19 PM [...] Verified by name and . Son given pantograph watcher note above. Skylar Everett RN October 08, 2023 4:34 PM Darby Dominguez 10/11/2023 3:36 PM Signed Pt's son called in and said to please send in either one of the other medications recommended (whichever may be cheapest if known). They would like it sent to the [facility] from [place]. Thanks. Trupti Messer APRN.TUFTING MACHINE FIXER 10/11/2023 4:39 PM Signed The following approved [...] Comments: hives Date Reviewed: 10/06/2023 Reviewed by: Esetla Zhang - Fully Assessed Reason for Visit: [...] with meals. (more content not included)... Normal [facility] 10-07-2023 [facility] Telephone (WCTRMN) ROSITA KENNEDY ([id number]) 1945 F Date Time Provider Department 10/07/23 FRANKLIN SALMON [facility] During your visit today, we recorded the following information about you: Lindsey Reynolds 10/07/2023 3:53 PM Signed Patient: Rosita Kennedy : 1945 Provider: Franklin Salmon MD Caller Phone #: [phone] (home) [phone] (cell) Reason for call: pt states Dr Salmon advised her to call if prescription she wrote is too expensive. Says Dr Salmon told her she would send something else in, if so Please call Daughter in Winter ann, at [phone] Message routed to nurse triage Date of next visit: Appointments for Next 60 Days Date Time Provider Location Dept Phone 10/14/2023 2:30 PM FRANKLIN SALMON [phone] 11/10/2023 7:[address] [facility] [phone] 11/10/2023 8:[address] [facility] [phone] 11/17/2023 4:00 PM MALATHI ROBERTS [facility] [phone] JULIA: 10/06/2023 Deborah Aguilar RN 10/07/2023 4:30 [...] once daily (more content not included)... [facility] (GYNURM ) ROSITA KENNEDY ([id number]) 1945 F Date Time Provider Department 10/06/23 [...] had breast ca. Medical and Symptom History: CAKE WRINGER HISTORY: denies hx of HRT, denies hx [...] W/O EC (more content not included)... Normal [facility] CT ABD/PEL W IVCONon 024 CT ABD/PEL W IVCON * * *Final Report* * * DATE OF EXAM: Sep 29 2023 12:02PM [facility] 0530 - CT ABD/PEL W IVCON / [...] Would advise continued attention on follow-up exams. [employer] Teacher: JUDITH Transcribe Date/Time: Sep 30 2023 11:18A Dictated by : DOV PEREIRA MD This examination was interpreted and the report reviewed and electronically signed by: DOV PEREIRA MD on Sep 30 2023 11:30AM EST [id number] N Normal [facility] CT CHEST W IVCONon 4 CT CHEST W IVCON * * *Final Report* * * DATE OF EXAM: Sep 29 2023 12:02PM [facility] 0539 - CT CHEST W IVCON / [...] performed concurrently and has been reported separately. Crocheter (topogram) images: No additional findings. IMPRESSION: Stable nodular density in the right upper lobe. No new nodules seen. Tiny nodular densities along the anterior aspect of the trachea, similar to prior study. No enlarged lymph nodes seen in the mediastinum or hilar regions. [employer] Teacher: JUDITH Transcribe Date/Time: Sep 30 2023 1:14P Dictated by : LORENE HANEY MD This examination was interpreted and the report reviewed and electronically signed by: LORENE HANEY MD on Sep 30 2023 1:43PM EST [id number] N Normal [facility] Basic metabolic 2000 panelon 09-27-2023 Anion gap [Moles/Vol] 10 mmol/L Normal 9-18 [facility] Comment on above: Order Comment: Speci men Type: BLOOD SPECIMENOrdering Facility: [facility] Address: [address] [place] [address] Performed By: #### 2 4321-2 ####[facility] LABCLIA [id number] [place] [address] [place] Calcium [Mass/Vol] 8.9 mg/dL Normal 8.5-10.2 [facility] Comment on above: Order Comment: Speci men Type: BLOOD SPECIMENOrdering Facility: [facility] Address: [address] [place] [address] Performed By: #### 2 4321-2 ####[facility] LABCLIA [id number] [place] [address] [place] Chloride [Moles/Vol] 104 mmol/L Normal 97-105 [facility] Comment on above: Order Comment: Speci men Type: BLOOD SPECIMENOrdering Facility: [facility] Address: [address] [place] [address] Performed By: #### 2 4321-2 ####[facility] LABCLIA [id number] [place] [id number] [place] CO2 [Moles/Vol] 27 mmol/L Normal 22-30 [facility] Comment on above: Order Comment: Speci men Type: BLOOD SPECIMENOrdering Facility: [facility] Address: [address] [place] [address] Performed By: #### 2 4321-2 ####[facility] LABCLIA [id number] [place] [address] [place] Creatinine [Mass/Vol] 0.87 mg/dL Normal 0.58-0.96 [facility] Comment on above: Order Comment: Roc tan Type: BLOOD SPECIMENOrdering Facility: [facility] Address: [address] [place] [address] Performed By: #### 2 4321-2 ####[facility] LABIA [id number] [place] [address] [place] Creatinine and Glomerular filtration rate.predicted panel (S/P/Bld) 70 mL/min/1.73m??? Normal >=60 [facility] Comment on above: Order Comment: Roc tan Type: BLOOD SPECIMENOrdering Facility: [facility] Address: [address] [place] [address] Result Comment: Jefry mated Glomerular Filtration Rate [...] actual GFR. Performed By: #### 2 4321-2 ####[facility] LABCLIA [id number] [place] [address] [place] Glucose [Mass/Vol] 123 mg/dL High 74-99 [facility] Comment on above: Order Comment: Roc tan Type: BLOOD SPECIMENOrdering Facility: [facility] Address: [address] [place] [address] Result Comment: The [place] Diabetes Association (ADA) provides guidance for cutoff [...] Standards of Medical Care in Diabetes 2016, [place] [employer] Association. Diabetes Care. 2016.39(Suppl 1). Performed By: #### 2 4321-2 ####[facility] LABCLIA [id number] [place] [address] [place] Potassium [Moles/Vol] 4.3 mmol/L Normal 3.7-5.1 [facility] Comment on above: Order Comment: Speci men Type: BLOOD SPECIMENOrdering Facility: [facility] Address: [address] [place] [address] Performed By: #### 2 4321-2 ####[facility] LABCLIA [id number] [place] [address] [place] Sodium [Moles/Vol] 141 mmol/L Normal 136-144 [facility] Comment on above: Order Comment: Speci men Type: BLOOD SPECIMENOrdering Facility: [facility] Address: [address] [place] [address] Performed By: #### 2 4321-2 ####[facility] LABCLIA [id number] [place] [address] [place] Urea nitrogen [Mass/Vol] 21 mg/dL Normal 7-21 [facility] Comment on above: Order Comment: Speci men Type: BLOOD SPECIMENOrdering Facility: [facility] Address: [address] [place] [address] Performed By: #### 2 4321-2 ####[facility] LABCLIA [id number] [place] [address] [place] CBC panel Auto (Bld)on 09-27 Erythrocyte distribution width (RBC) [Ratio] 15.4 % High 11.5-15.0 [facility] Comment on above: Order Comment: Speci men Type: BLOOD SPECIMENOrdering Facility: [facility] Address: [address] [place] [address] Performed By: #### 5 8410-2 ####[facility] LABIA [id number] [place] [address] [place] Hematocrit (Bld) [Volume fraction] 39.0 % Normal 36.0-46.0 [facility] Comment on above: Order Comment: Speci men Type: BLOOD SPECIMENOrdering Facility: [facility] Address: [address] [place] [address] Performed By: #### 5 8410-2 ####[facility] LABIA [id number] [place] [address] [place] Hemoglobin (Bld) [Mass/Vol] 11.4 g/dL Low 11.5-15.5 [facility] Comment on above: Order Comment: Speci men Type: BLOOD SPECIMENOrdering Facility: [facility] Address: [address] [place] [address] Performed By: #### 5 8410-2 ####[facility] LABIA [id number] [place] [address] [place] MCH (RBC) [Entitic mass] 24.6 pg Low 26.0-34.0 [facility] Comment on above: Order Comment: Speci men Type: BLOOD SPECIMENOrdering Facility: [facility] Address: [address] [place] [address] Performed By: #### 5 8410-2 ####[facility] LABIA [id number] [place] [address] [place] MCHC (RBC) [Mass/Vol] 29.2 g/dL Low 30.5-36.0 [facility] Comment on above: Order Comment: Speci men Type: BLOOD SPECIMENOrdering Facility: [facility] Address: [address] [place] [address] Performed By: #### 5 8410-2 ####[facility] LABIA [id number] [place] [id number] [place] MCV (RBC) [Entitic vol] 84.2 fL Normal 80.0-100.0 C [facility] Comment on above: Order Comment: Speci men Type: BLOOD SPECIMENOrdering Facility: [facility] Address: [address] [place] [address] Performed By: #### 5 8410-2 ####[facility] LABCLIA [id number] [place] [address] [place] Nucleated RBC (Bld) [#/Vol] 0.04 10*3/uL High <0.01 [facility] Comment on above: Order Comment: Speci men Type: BLOOD SPECIMENOrdering Facility: [facility] Address: [address] [place] [address] Performed By: #### 5 8410-2 ####[facility] LABCLIA [id number] [place] [address] [place] Platelet mean volume (Bld) [Entitic vol] 9.6 fL Normal 9.0-12.7 [facility] Comment on above: Order Comment: Speci men Type: BLOOD SPECIMENOrdering Facility: [facility] Address: [address] [place] [address] Performed By: #### 5 8410-2 ####[facility] LABCLIA [id number] [place] [address] [place] Platelets (Bld) [#/Vol] 354 10*3/uL Normal 150-400 [facility] Comment on above: Order Comment: Speci men Type: BLOOD SPECIMENOrdering Facility: [facility] Address: [address] [place] [address] Performed By: #### 5 8410-2 ####[facility] LABCLIA [id number] [place] [address] [place] RBC (Bld) [#/Vol] 4.63 10*6/uL Normal 3.90-5.20 [facility] Comment on above: Order Comment: Speci men Type: BLOOD SPECIMENOrdering Facility: [facility] Address: [address] [place] [address] Performed By: #### 5 8410-2 ####[facility] LABCLIA [id number] [place] [address] [place] WBC (Bld) [#/Vol] 8.17 10*3/uL Normal 3.70-11.00 [facility] Comment on above: Order Comment: Speci men Type: BLOOD SPECIMENOrdering Facility: [facility] Address: [address] [place] [address] Performed By: #### 5 8410-2 ####[facility] LABCLIA [id number] [place] [id number] [place] Culture, urineOrdered By: Everett Min on 09-02-2023 Bacteria identified Cx Nom (U) Culture exhibits no growth. [facility] Telephone (CRISTOPHER) ROSITA KENNEDY ([id number]) 1945 F Date Time Provider Department 07/26/23 [...] once daily. - L GASSERI/B BIFIDUM/B LONGUM ([facility] [employer] [facility] ORAL) Take 1 tablet by mouth once [...] right ey (more content not included)... Normal [facility] CBC W Auto Differential pane l (Bld)on 07-09-2023 Basophils (Bld) [#/Vol] 0.07 10*3/uL Normal <0.11 [facility] Comment on above: Order Comment: Speci men Type: BLOOD SPECIMENOrdering Facility: [facility] Address: [address] [place] [address] Performed By: #### 5 7021-8 ####[facility] FLORIDAA [id number] [place] [address] [place] Basophils/100 WBC (Bld) 0.8 % Normal C [facility] Comment on above: Order Comment: Speci men Type: BLOOD SPECIMENOrdering Facility: [facility] Address: [address] [place] [address] Performed By: #### 5 7021-8 ####[facility]ENTERWNCLIA [id number] [place] [address] [place] Differential cell count method Nom (Bld) Auto Normal [facility] Comment on above: Order Comment: Speci men Type: BLOOD SPECIMENOrdering Facility: [facility] Address: [address] [place] [address] Performed By: #### 5 7021-8 ####[facility] [id number] [place] [address] [place] Eosinophils (Bld) [#/Vol] 0.65 10*3/uL High <0.46 [facility] Comment on above: Order Comment: Speci men Type: BLOOD SPECIMENOrdering Facility: [facility] Address: [address] [place] [address] Performed By: #### 5 7021-8 ####[facility] [id number] [place] [address] [place] Eosinophils/100 WBC (Bld) 7.1 % Normal [facility] Comment on above: Order Comment: Speci men Type: BLOOD SPECIMENOrdering Facility: [facility] Address: [address] [place] [address] Performed By: #### 5 7021-8 ####[facility] [id number] [place] [address] [place] Erythrocyte distribution width (RBC) [Ratio] 18.0 % High 11.5-15.0 [facility] Comment on above: Order Comment: Speci men Type: BLOOD SPECIMENOrdering Facility: [facility] Address: [address] [place] [address] Performed By: #### 5 7021-8 ####[facility]ITALNCTOOELE [facility] [id number] [place] [address] [place] Hematocrit (Bld) [Volume fraction] 39.3 % Normal 36.0-46.0 [facility] Comment on above: Order Comment: Speci men Type: BLOOD SPECIMENOrdering Facility: [facility] Address: [address] [place] [address] Performed By: #### 5 7021-8 ####[facility]ITALNCTOOELE [facility] [id number] [place] [address] [place] Hemoglobin (Bld) [Mass/Vol] 11.8 g/dL Normal 11.5-15.5 [facility] Comment on above: Order Comment: Speci men Type: BLOOD SPECIMENOrdering Facility: [facility] Address: [address] [place] [address] Performed By: #### 5 7021-8 ####[facility] MARGOCHANO [id number] [place] [address] [place] Immature granulocytes (Bld) [#/Vol] 0.05 10*3/uL Normal <0.10 [facility] Comment on above: Order Comment: Speci men Type: BLOOD SPECIMENOrdering Facility: [facility] Address: [address] [place] [address] Performed By: #### 5 7021-8 ####[facility] CENTERROSE [id number] [place] [address] [place] Immature granulocytes/100 WBC (Bld) 0.5 % Normal [facility] Comment on above: Order Comment: Speci men Type: BLOOD SPECIMENOrdering Facility: [facility] Address: [address] [place] [address] Performed By: #### 5 7021-8 ####[facility] [id number] [place] [address] [place] Lymphocytes (Bld) [#/Vol] 2.21 10*3/uL Normal 1.00-4.00 [facility] Comment on above: Order Comment: Speci men Type: BLOOD SPECIMENOrdering Facility: [facility] Address: [address] [place] [address] Performed By: #### 5 7021-8 ####[facility] [id number] [place] [address] [place] Lymphocytes/100 WBC (Bld) 24.2 % Normal [facility] Comment on above: Order Comment: Speci men Type: BLOOD SPECIMENOrdering Facility: [facility] Address: [address] [place] [address] Performed By: #### 5 7021-8 ####[facility] HOSPITALNCLIA [id number] [place] [address] [place] MCH (RBC) [Entitic mass] 24.9 pg Low 26.0-34.0 [facility] Comment on above: Order Comment: Speci men Type: BLOOD SPECIMENOrdering Facility: [facility] Address: [address] [place] [address] Performed By: #### 5 7021-8 ####[facility] [id number] [place] [address] [place] MCHC (RBC) [Mass/Vol] 30.0 g/dL Low 30.5-36.0 [facility] Comment on above: Order Comment: Speci men Type: BLOOD SPECIMENOrdering Facility: [facility] Address: [address] [place] [address] Performed By: #### 5 7021-8 ####[facility] [id number] [place] [address] [place] MCV (RBC) [Entitic vol] 82.9 fL Normal 80.0-100.0 C [facility] Comment on above: Order Comment: Speci men Type: BLOOD SPECIMENOrdering Facility: [facility] Address: [address] [place] [address] Performed By: #### 5 7021-8 ####[facility] [id number] [place] Monocytes (Bld) [#/Vol] 0.73 10*3/uL Normal <0.87 [facility] Comment on above: Order Comment: Speci men Type: BLOOD SPECIMENOrdering Facility: [facility] Address: [address] [place] [address] Performed By: #### 5 7021-8 ####[facility] [id number] [place] [address] [place] Monocytes/100 WBC (Bld) 8.0 % Normal C [facility] Comment on above: Order Comment: Speci men Type: BLOOD SPECIMENOrdering Facility: [facility] Address: [address] [place] [address] Performed By: #### 5 7021-8 ####[facility] CENTERLIA [id number] [place] [address] [place] Neutrophils (Bld) [#/Vol] 5.43 10*3/uL Normal 1.45-7.50 [facility] Comment on above: Order Comment: Speci men Type: BLOOD SPECIMENOrdering Facility: [facility] Address: [address] [place] [address] Performed By: #### 5 7021-8 ####[facility] [id number] [place] [address] [place] Neutrophils/100 WBC (Bld) 59.4 % Normal [facility] Comment on above: Order Comment: Speci men Type: BLOOD SPECIMENOrdering Facility: [facility] Address: [address] [place] [address] Performed By: #### 5 7021-8 ####[facility] [id number] [place] [address] [place] Nucleated RBC (Bld) [#/Vol] 10*3/uL Normal <0.01 [facility] Comment on above: Order Comment: Speci men Type: BLOOD SPECIMENOrdering Facility: [facility] Address: [address] [place] [address] Performed By: #### 5 7021-8 ####[facility] H[facility]ITALNCLIA [id number] [place] [address] [place] Nucleated RBC/100 WBC (Bld) [Ratio] 0.0 /100 WBC Normal [facility] Comment on above: Order Comment: Speci men Type: BLOOD SPECIMENOrdering Facility: [facility] Address: [address] [place] [address] Performed By: #### 5 7021-8 ####[facility] [id number] [place] [address] [place] Platelet mean volume (Bld) [Entitic vol] 8.9 fL Low 9.0-12.7 [facility] Comment on above: Order Comment: Speci men Type: BLOOD SPECIMENOrdering Facility: [facility] Address: [address] [place] [address] Performed By: #### 5 7021-8 ####[facility]ITALLYDIAGLORIA [id number] [place] [address] [place] Platelets (Bld) [#/Vol] 462 10*3/uL High 150-400 [facility] Comment on above: Order Comment: Speci men Type: BLOOD SPECIMENOrdering Facility: [facility] Address: [address] [place] [address] Performed By: #### 5 7021-8 ####[facility]ITALNCLIA [id number] [place] [address] [place] RBC (Bld) [#/Vol] 4.74 10*6/uL Normal 3.90-5.20 [facility] Comment on above: Order Comment: Speci men Type: BLOOD SPECIMENOrdering Facility: [facility] Address: [address] [place] [address] Performed By: #### 5 7021-8 ####[facility]ITALNCLIA [id number] [place] [address] [place] WBC (Bld) [#/Vol] 9.14 10*3/uL Normal 3.70-11.00 [facility] Comment on above: Order Comment: Speci men Type: BLOOD SPECIMENOrdering Facility: [facility] Address: [address] [place] [address] Performed By: #### 5 7021-8 ####[facility] CRYSTAL MILLTOWNCLIA [id number] [place] [address] [place] Comprehensive metabolic 2000 panelon 07-09-2023 Albumin [Mass/Vol] 4.1 g/dL Normal 3.9-4.9 [facility] Comment on above: Order Comment: Speci men Type: BLOOD SPECIMENOrdering Facility: [facility] Address: [address] [place] [address] Performed By: #### 2 4323-8 ####[facility] CRYSTAL MILLTOWNCLIA [id number] [place] [address] [place] ALP [Catalytic activity/Vol] 114 U/L Normal 34-123 [facility] Comment on above: Order Comment: Speci men Type: BLOOD SPECIMENOrdering Facility: [facility] Address: [address] [place] [address] Performed By: #### 2 4323-8 ####[facility] CENTERLIA [id number] [place] [address] [place] ALT [Catalytic activity/Vol] 12 U/L Normal 7-38 [facility] Comment on above: Order Comment: Speci men Type: BLOOD SPECIMENOrdering Facility: [facility] Address: [address] [place] [address] Performed By: #### 2 4323-8 ####[facility] MILLTOWNCLIA [id number] [place] [address] [place] Anion gap [Moles/Vol] 13 mmol/L Normal 9-18 [facility] Comment on above: Order Comment: Speci men Type: BLOOD SPECIMENOrdering Facility: [facility] Address: [address] [place] [address] Performed By: #### 2 4323-8 ####[facility] CENTERWNCLIA [id number] [place] [address] [place] AST [Catalytic activity/Vol] 23 U/L Normal 13-35 [facility] Comment on above: Order Comment: Speci men Type: BLOOD SPECIMENOrdering Facility: [facility] Address: [address] [place] [address] Performed By: #### 2 4323-8 ####[facility]ITALNCLIA [id number] [place] [address] [place] Bilirubin [Mass/Vol] 0.3 mg/dL Normal 0.2-1.3 [facility] Comment on above: Order Comment: Speci men Type: BLOOD SPECIMENOrdering Facility: [facility] Address: [address] [place] [address] Performed By: #### 2 4323-8 ####[facility] [id number] [place] [address] [place] Calcium [Mass/Vol] 9.0 mg/dL Normal 8.5-10.2 [facility] Comment on above: Order Comment: Speci men Type: BLOOD SPECIMENOrdering Facility: [facility] Address: [address] [place] [address] Performed By: #### 2 4323-8 ####[facility] [id number] [place] [address] [place] Chloride [Moles/Vol] 102 mmol/L Normal 97-105 [facility] Comment on above: Order Comment: Speci men Type: BLOOD SPECIMENOrdering Facility: [facility] Address: [address] [place] [address] Performed By: #### 2 4323-8 ####[facility] [id number] [place] [address] [place] CO2 [Moles/Vol] 24 mmol/L Normal 22-30 [facility] Comment on above: Order Comment: Speci men Type: BLOOD SPECIMENOrdering Facility: [facility] Address: [address] [place] [address] Performed By: #### 2 4323-8 ####[facility] [id number] [place] [address] [place] Creatinine [Mass/Vol] 0.74 mg/dL Normal 0.58-0.96 [facility] Comment on above: Order Comment: Speci men Type: BLOOD SPECIMENOrdering Facility: [facility] Address: [address] [place] [address] Performed By: #### 2 4323-8 ####[facility]CL[facility] [id number] [place] [address] [place] Creatinine and Glomerular filtration rate.predicted panel (S/P/Bld) 84 mL/min/1.73m??? Normal >=60 [facility] Comment on above: Order Comment: Estellai men Type: BLOOD SPECIMENOrdering Facility: [facility] Address: [address] [place] [address] Result Comment: Jefry mated Glomerular Filtration Rate [...] Performed By: #### 2 4323-8 ####[facility] [id number] [place] [address] [place] Glucose [Mass/Vol] 113 mg/dL High 74-99 [facility] Comment on above: Order Comment: Speci men Type: BLOOD SPECIMENOrdering Facility: [facility] Address: [place] [address] Result Comment: The [place] [employer] (ADA) provides guidance for cutoff [...] Standards of Medical Care in Diabetes 2016, [place] [employer]. Diabetes Care. 2016.39(Suppl 1). Performed By: #### 2 4323-8 ####[facility] CRYSTAL MILLTOWNCLIA [id number] [place] [address] [place] Potassium [Moles/Vol] 3.9 mmol/L Normal 3.7-5.1 [facility] Comment on above: Order Comment: Speci men Type: BLOOD SPECIMENOrdering Facility: [facility] Address: [address] [place] [address] Performed By: #### 2 4323-8 ####[facility] [id number] [place] [address] [place] Protein [Mass/Vol] 7.3 g/dL Normal 6.3-8.0 [facility] Comment on above: Order Comment: Estellai men Type: BLOOD SPECIMENOrdering Facility: [facility] Address: [address] [place] [address] Performed By: #### 2 4323-8 ####[facility] [id number] [place] [address] [place] Sodium [Moles/Vol] 139 mmol/L Normal 136-144 [facility] Comment on above: Order Comment: Speci men Type: BLOOD SPECIMENOrdering Facility: [facility] Address: [address] [place] [address] Performed By: #### 2 4323-8 ####[facility]CL[facility] [id number] [place] [address] [place] Urea nitrogen [Mass/Vol] 25 mg/dL High 7-21 [facility] Comment on above: Order Comment: Speci men Type: BLOOD SPECIMENOrdering Facility: [facility] Address: [place] [address] Performed By: #### 2 4323-8 ####[facility] CRYSTAL ARAGONTOWOHLIA [id number] [place] [address] [place] Cortis SerPl-mCncon 07-09-20 23 Cortisol [Mass/Vol] 21.4 ug/dL High 4.8-19.5 [facility] Comment on above: Order Comment: Speci men Type: BLOOD SPECIMENOrdering Facility: [facility] Address: [place] [address] Result Comment: Prov ided reference range is from 6-10 AM sample collection time. Cortisol Reference Range: 6-10 AM = 4.8-19.5 ug/dL, 4-8 PM = 2.5-11.9 ug/dL Performed By: #### 2 143-6, 3024-7, 3016-3 ####[facility] LABCLIA [id number] [place] [address] [place] T4 Free SerPl-mCncon 023 Free T4 [Mass/Vol] 1.0 ng/dL Normal 0.9-1.7 [facility] Comment on above: Order Comment: Speci men Type: BLOOD SPECIMENOrdering Facility: [facility] Address: [place] [address] Performed By: #### 2 143-6, 3024-7, 3016-3 ####[facility] LABCLIA [id number] [place] [address] [place] TSH SerPl-aCncon 07-09-2023 TSH Qn 5.640 m[IU]/L High 0.270-4.200 [facility] Comment on above: Order Comment: Speci men Type: BLOOD SPECIMENOrdering Facility: [facility] Address: [place] [address] Performed By: #### 2 143-6, 3024-7, 3016-3 ####[facility] LABCLIA [id number] [facility] [id number] STATES OF [facility] Absolute lymphocyte countOrd ered By: Bernardino Min on 07-07-2023 Lymphocytes Auto (Unsp spec) [#/Vol] 1.14 10*3/uL 0.83-4.51 Basophil percentageOrdered B y: Bernardino Min on 07-07-2023 Basophils/100 WBC (Bld) 0.7 % 0-1 [facility] Chloride [Moles/Vol] 105 mmol/L 98-107 [facility] Eosinophils/100 WBC (Bld) 7.7 % 0-5 Glucose [Mass/Vol] 104 mg/dL 74-106 [facility] Comment on above: Fasting Glucose resu lt from 100 to 125 mg/dL suggests IMPAIRED HOMEOSTASIS per A.D.A. criteria. Neutrophils (Bld) [#/Vol] 3.5 10*3/uL 2.0-7.7 Neutrophils/100 WBC (Bld) 60.0 % 47-70 Potassium [Moles/Vol] 4.2 mmol/L 3.5-5.1 [facility] Sodium [Moles/Vol] 137 mmol/L 136-145 [facility] WBC (Bld) [#/Vol] 5.8 10*3/uL 4.4-11.0 [facility] Blood erythrocytes count (nu mber/volume)Ordered By: Bernardino Min on 07-07-2023 RBC (Bld) [#/Vol] 4.39 10*6/uL 4.2-5.4 [facility] Blood hemoglobin measurement (mass/volume)Ordered By: Bernardino Min on 07-07-2023 Hemoglobin (Bld) [Mass/Vol] 11.0 g/dL 12.0-15.0 Blood lymphocytes/100 leukoc ytesOrdered By: Bernardino Min on 07-07-2023 Lymphocytes/100 WBC (Bld) 19.6 % 19-41 Blood monocytes/100 leukocyt esOrdered By: Bernardino Min on 07-07-2023 Monocytes/100 WBC (Bld) 11.1 % 0-10 [facility] Blood platelet mean volumeOr dered By: Bernardino Min on 07-07-2023 Platelet mean volume (Bld) [Entitic vol] 9.2 fL 6.2-12.0 Determination of erythrocyte mean corpuscular volume (MCV)Ordered By: Bernardino Min on 07-07-2023 MCV (RBC) [Entitic vol] 85.9 fL 81-99 [facility] Hematocrit Auto (Bld) [Volum e fraction]Ordered By: Bernardino Min on 07-07-2023 Hematocrit (Bld) [Volume fraction] 37.7 % 37-47 Laboratory - Chemistry and C hemistry - challengeOrdered By: [facility] 07-07-2023 CO2 [Moles/Vol] 29.0 mmol/L 21.0-32.0 Urea nitrogen/Creatinine [Mass ratio] 33.5 mg/mg 10-20 Laboratory - Hematology and Cell countsOrdered By: Bernardino Min 07-07-2023 Erythrocyte distribution width (RBC) [Entitic vol] 55.6 fL 35.1-43.9 Erythrocyte distribution width (RBC) [Ratio] 17.9 % 11.6-14.6 Immature granulocytes/100 WBC (Bld) 0.900 % 0.0-0.9 Comment on above: IG% - Immature Granu locytes (promyelocytes, myelocytes and metamyelocytes) > 1% indicates that a LEFT SHIFT is Present. MCH (RBC) [Entitic mass] 25.1 pg 27.0-32.0 Nucleated RBC/100 WBC (Bld) [Ratio] 0 % 0-5 MCHC Auto (RBC) [Mass/Vol]Or dered By: Bernardino Min on 07-07-2023 MCHC (RBC) [Mass/Vol] 29.2 g/dL 32-36 [facility] No Panel InformationOrdered By: Bernardino Min on 07-07-2023 Estimated Creatinine Clearance Calc 34.91 ml/min Estimated GFR (MDRD) Amer 97 mL/min >60 Comment on above: GFR Calc Estimated GFR (MDRD) Non-Af Amer 80 mL/min >60 Comment on above: Non- GFR Calc Platelets bldOrdered By: Bernardino Min on 07-07-2023 Platelets (Bld) [#/Vol] 406 10*3/uL 150-450 Serum or plasma calcium felipe urement (mass/volume)Ordered By: Bernardino Min on 07-07-2023 Calcium [Mass/Vol] 8.9 mg/dL 8.5-10.1 [facility] Serum or plasma creatinine m easurement (mass/volume)Ordered By: Bernardino Min on 07-07-2023 Creatinine [Mass/Vol] 0.75 mg/dL 0.55-1.02 [facility] Comment on above: The validity of the calculated GFR & GFRAA in patients over 70 years has not been determined. Clinical correlation is essential. Serum or plasma urea nitroge n measurement (mass/volume)Ordered By: Bernardino Min on 07-07-2023 Urea nitrogen [Mass/Vol] 25 mg/dL 7-18 Thin prep Papanicolaou smear with manual screeningOrdered By: Bernardino Min on 07-07-2023 Thin prep Papanicolaou smear with manual screening 3 5-15 Basophil percentageOrdered B y: Bernardino Min on 07-04-2023 Basophil percentage 0 SEEN /hpf 0-5 [facility] Bilirubin Test strip Ql (U)O rdered By: Bernardino Min on 07-04-2023 Bilirubin Ql (U) Negative Negative COVID-19 virus antigen assay Ordered By: Bernardino Min on 07-04-2023 SARS-CoV-2 (COVID-19) Ag IA.rapid Ql (Resp) Culture, urineOrdered By: Everett Min on 07-04-2023 Bacteria identified Cx Nom (U) Positive Ketones Test strip Ql (U)Ord ered By: Bernardino Min on 07-04-2023 Ketones Ql (U) Negative Negative Mucus LM Ql (Urine sed)Order ed By: Bernardino Min on 07-04-2023 Mucus Ql (Urine sed) 0 SEEN /hpf [facility] Nitrite Test strip Ql (U)Ord ered By: Bernardino Min on 07-04-2023 Nitrite Ql (U) Negative Negative Protein Test strip Ql (U)Ord ered By: Bernardino Min on 07-04-2023 Protein Ql (U) 30 mg/dl Negative Squamous epithelial cells de tection in urine sediment by light microscopyOrdered By: Bernardino Min on 07-04-2023 Epithelial cells.squamous LM Ql (Urine sed) 0-5 SEEN /hpf 5-10 Urine blood detectionOrdered By: Bernardino Min on 07-04-2023 RBC Ql (U) 150 /ul Negative RBC Ql (U) 10-25 SEEN /hpf 0-5 Urine clarityOrdered By: Bernardino Min on 07-04-2023 Clarity (U) Clear Clear Urine color determinationOrd ered By: Bernardino Min on 07-04-2023 Color (U) Yellow Yellow Urine glucose detectionOrder ed By: Bernardino Min on 07-04-2023 Glucose Ql (U) Normal mg/dl Normal Urine leukocyte esterase det ection by dipstickOrdered By: Bernardino Min on 07-04-2023 Leukocyte esterase Test strip Ql (U) Negative Negative Urine pHOrdered By: Bernardino Min on 07-04-2023 pH (U) 6.0 [pH] 5.0 - 8.0 Urine sediment bacteria coun t by microscopy (number/high power field)Ordered By: Bernardino Min on 07-04-2023 Bacteria LM.HPF (Urine sed) [#/Area] 0 /[HPF] None Seen Urine specific gravity measu rementOrdered By: Bernardino Min on 07-04-2023 Specific gravity (U) [Rel density] 1.010 1.002-1.030 Urobilinogen Auto test strip Ql (U)Ordered By: Bernardino Min on 07-04-2023 Urobilinogen Ql (U) Normal mg/dl Normal [facility] Basophil percentageOrdered B y: Jason Arteaga on 06-28-2023 Basophil percentage 0-5 SEEN /hpf 0-5 [facility] Bilirubin Test strip Ql (U)O rdered By: Jason Arteaga on 06-28-2023 Bilirubin Ql (U) Negative Negative Culture, urineOrdered By: Lupe Arteaga on 06-28-2023 Bacteria identified Cx Nom (U) Culture exhibits no growth. Ketones Test strip Ql (U)Ord ered By: Jason Arteaga on 06-28-2023 Ketones Ql (U) Negative Negative Mucus LM Ql (Urine sed)Order ed By: Jason Arteaga on 06-28-2023 Mucus Ql (Urine sed) 0 SEEN /hpf [facility] Nitrite Test strip Ql (U)Ord ered By: Jason Arteaga on 06-28-2023 Nitrite Ql (U) Negative Negative Protein Test strip Ql (U)Ord ered By: Jason Arteaga on 06-28-2023 Protein Ql (U) Negative Negative Squamous epithelial cells de tection in urine sediment by light microscopyOrdered By: Jason Arteaga on 06-28-2023 Epithelial cells.squamous LM Ql (Urine sed) 0 SEEN /hpf 5-10 Urine blood detectionOrdered By: Jason Arteaga on 06-28-2023 RBC Ql (U) Negative Negative RBC Ql (U) 0 SEEN /hpf 0-5 Urine clarityOrdered By: Daniel Arteaga on 06-28-2023 Clarity (U) Clear Clear Urine color determinationOrd ered By: Jason Arteaga on 06-28-2023 Color (U) Yellow Yellow Urine glucose detectionOrder ed By: Jason Arteaga on 06-28-2023 Glucose Ql (U) Normal mg/dl Normal Urine leukocyte esterase det ection by dipstickOrdered By: Jason Arteaga on 06-28-2023 Leukocyte esterase Test strip Ql (U) Negative Negative Urine pHOrdered By: Jason htorpe on 06-28-2023 pH (U) 7.0 [pH] 5.0 - 8.0 Urine sediment bacteria coun t by microscopy (number/high power field)Ordered By: Jason Arteaga on 06-28-2023 Bacteria LM.HPF (Urine sed) [#/Area] 0 /[HPF] None Seen Urine specific gravity measu rementOrdered By: Jason Arteaga on 06-28-2023 Specific gravity (U) [Rel density] 1.010 1.002-1.030 Urobilinogen Auto test strip Ql (U)Ordered By: Jason Arteaga on 06-28-2023 Urobilinogen Ql (U) Normal mg/dl Normal [facility] Absolute lymphocyte countOrd ered By: [facility] on 06-27-2023 Lymphocytes Auto (Unsp spec) [#/Vol] 1.10 10*3/uL 0.83-4.51 Basophil percentageOrdered B y: Jason Arteaga on 06-27-2023 Basophils/100 WBC (Bld) 0.5 % 0-1 [facility] Chloride [Moles/Vol] 109 mmol/L 98-107 [facility] Eosinophils/100 WBC (Bld) 3.2 % 0-5 Glucose [Mass/Vol] 115 mg/dL 74-106 [facility] Comment on above: Fasting Glucose resu lt from 100 to 125 mg/dL suggests IMPAIRED HOMEOSTASIS per A.D.A. criteria. Neutrophils (Bld) [#/Vol] 4.3 10*3/uL 2.0-7.7 Neutrophils/100 WBC (Bld) 69.1 % 47-70 Potassium [Moles/Vol] 3.6 mmol/L 3.5-5.1 [facility] Sodium [Moles/Vol] 141 mmol/L 136-145 [facility] WBC (Bld) [#/Vol] 6.3 10*3/uL 4.4-11.0 [facility] Blood erythrocytes count (nu mber/volume)Ordered By: Jason Arteaga on 06-27-2023 RBC (Bld) [#/Vol] 4.08 10*6/uL 4.2-5.4 [facility] Blood hemoglobin measurement (mass/volume)Ordered By: Jason Arteaga on 06-27-2023 Hemoglobin (Bld) [Mass/Vol] 10.0 g/dL 12.0-15.0 Blood lymphocytes/100 leukoc ytesOrdered By: Jason Arteaga on 06-27-2023 Lymphocytes/100 WBC (Bld) 17.6 % 19-41 Blood monocytes/100 leukocyt esOrdered By: Jason Arteaga on 06-27-2023 Monocytes/100 WBC (Bld) 9.3 % 0-10 [facility] Blood platelet mean volumeOr dered By: Jason Arteaga on 06-27-2023 Platelet mean volume (Bld) [Entitic vol] 9.2 fL 6.2-12.0 Determination of erythrocyte mean corpuscular volume (MCV)Ordered By: Jason Arteaga on 06-27-2023 MCV (RBC) [Entitic vol] 83.1 fL 81-99 [facility] Hematocrit Auto (Bld) [Volum e fraction]Ordered By: Jason Arteaga on 06-27-2023 Hematocrit (Bld) [Volume fraction] 33.9 % 37-47 Laboratory - Chemistry and C hemistry - challengeOrdered By: Jason Arteaga on 06-27-2023 CO2 [Moles/Vol] 27.0 mmol/L 21.0-32.0 Urea nitrogen/Creatinine [Mass ratio] 34.8 mg/mg 10-20 Laboratory - Hematology and Cell countsOrdered By: Jason Arteaga on 06-27-2023 Erythrocyte distribution width (RBC) [Entitic vol] 49.7 fL 35.1-43.9 Erythrocyte distribution width (RBC) [Ratio] 17.0 % 11.6-14.6 Immature granulocytes/100 WBC (Bld) 0.300 % 0.0-0.9 Comment on above: IG% - Immature Granu locytes (promyelocytes, myelocytes and metamyelocytes) > 1% indicates that a LEFT SHIFT is Present. MCH (RBC) [Entitic mass] 24.5 pg 27.0-32.0 Nucleated RBC/100 WBC (Bld) [Ratio] 0 % 0-5 [facility] Auto (RBC) [Mass/Vol]Or dered By: Jason Arteaga on 06-27-2023 MCHC (RBC) [Mass/Vol] 29.5 g/dL 32-36 [facility] No Panel InformationOrdered By: Jason Arteaga on 06-27-2023 Estimated Creatinine Clearance Calc 34.91 ml/min Estimated GFR (MDRD) Amer 112 mL/min >60 Comment on above: GFR Calc Estimated GFR (MDRD) Non-Af Amer 93 mL/min >60 Comment on above: Non- GFR Calc Thyroid Stimulating Hormone (TSH) 3.08 uIU/mL 0.358-3.74 Vitamin D 25-Hydroxy 45.7 ng/mL [facility] Comment on above: Vitamin D 25(OH) Sta tus Range Deficiency <20 ng/mL (50nmol/L) Insufficiency 20 - 30 ng/mL (50 - 75 nmol/L) Sufficiency 30 - 100 ng/mL (75 - 250 nmol/L) Toxicity >100 ng/mL (>250 nmol/L) Platelets bldOrdered By: Daniel Arteaga on 06-27-2023 Platelets (Bld) [#/Vol] 362 10*3/uL 150-450 Serum or plasma calcium felipe urement (mass/volume)Ordered By: Jason Arteaga on 06-27-2023 Calcium [Mass/Vol] 7.9 mg/dL 8.5-10.1 [facility] Serum or plasma creatinine m easurement (mass/volume)Ordered By: Jason Arteaga on 06-27-2023 Creatinine [Mass/Vol] 0.66 mg/dL 0.55-1.02 [facility] Comment on above: The validity of the calculated GFR & GFRAA in patients over 70 years has not been determined. Clinical correlation is essential. Serum or plasma urea nitroge n measurement (mass/volume)Ordered By: Jason Arteaga on 06-27-2023 Urea nitrogen [Mass/Vol] 23 mg/dL 7-18 Thin prep Papanicolaou smear with manual screeningOrdered By: Jason Arteaga on 06-27-2023 Thin prep Papanicolaou smear with manual screening 5 5-15 Absolute lymphocyte countOrd ered By: Ju López on 06-26-2023 Lymphocytes Auto (Unsp spec) [#/Vol] 1.23 10*3/uL 0.83-4.51 Basophil percentageOrdered B y: Ju López on 06-26-2023 Basophil percentage 0-5 SEEN /hpf 0-5 [facility] Basophils/100 WBC (Bld) 0.4 % 0-1 [facility] Bilirubin [Mass/Vol] 0.40 mg/dL 0.20-1.00 [facility] Comment on above: For patients on eltr ombopag therapy, use of Dimension Ehrhardt TBIL is not recommended. Chloride [Moles/Vol] 105 mmol/L 98-107 [facility] Eosinophils/100 WBC (Bld) 3.1 % 0-5 Glucose [Mass/Vol] 120 mg/dL 74-106 [facility] Comment on above: Fasting Glucose resu lt from 100 to 125 mg/dL suggests IMPAIRED HOMEOSTASIS per A.D.A. criteria. Neutrophils (Bld) [#/Vol] 5.8 10*3/uL 2.0-7.7 Neutrophils/100 WBC (Bld) 71.7 % 47-70 Potassium [Moles/Vol] 3.5 mmol/L 3.5-5.1 [facility] Protein [Mass/Vol] 6.8 g/dL 6.4-8.2 [facility] Sodium [Moles/Vol] 140 mmol/L 136-145 [facility] WBC (Bld) [#/Vol] 8.1 10*3/uL 4.4-11.0 [facility] Bilirubin Test strip Ql (U)O rdered By: Ju López on 06-26-2023 Bilirubin Ql (U) Negative Negative Blood erythrocytes count (nu mber/volume)Ordered By: Ju López on 06-26-2023 RBC (Bld) [#/Vol] 4.31 10*6/uL 4.2-5.4 [facility] Blood hemoglobin measurement (mass/volume)Ordered By: Ju López on 06-26-2023 Hemoglobin (Bld) [Mass/Vol] 10.8 g/dL 12.0-15.0 Blood lymphocytes/100 leukoc ytesOrdered By: Ju López on 06-26-2023 Lymphocytes/100 WBC (Bld) 15.3 % 19-41 Blood monocytes/100 leukocyt esOrdered By: Ju López on 06-26-2023 Monocytes/100 WBC (Bld) 9.1 % 0-10 [facility] Blood platelet mean volumeOr dered By: Ju López on 06-26-2023 Platelet mean volume (Bld) [Entitic vol] 9.0 fL 6.2-12.0 Determination of erythrocyte mean corpuscular volume (MCV)Ordered By: Ju López on 06-26-2023 MCV (RBC) [Entitic vol] 83.3 fL 81-99 [facility] Hematocrit Auto (Bld) [Volum e fraction]Ordered By: Ju López on 06-26-2023 Hematocrit (Bld) [Volume fraction] 35.9 % 37-47 Influenza virus A and B and SARS-CoV-2 (COVID-19) Ag panel - Upper respiratory specimOrdered By: Ju López on 06-26-2023 SARS-CoV-2 (COVID-19) RNA NURYS+probe Ql (Resp) SARS-CoV-2 (COVID-19) RNA NURYS+probe Ql (Resp) Ketones Test strip Ql (U)Ord ered By: Ju López on 06-26-2023 Ketones Ql (U) Negative Negative Laboratory - Chemistry and C hemistry - challengeOrdered By: [facility] on 06-26-2023 ALP [Catalytic activity/Vol] 104 U/L 45-117 ALT [Catalytic activity/Vol] 13 U/L 13-56 CO2 [Moles/Vol] 28.0 mmol/L 21.0-32.0 Globulin (S) [Mass/Vol] 3.9 g/dL 2.2-4.2 [facility] Urea nitrogen/Creatinine [Mass ratio] 35.5 mg/mg 10-20 Laboratory - Hematology and Cell countsOrdered By: Ju López on 06-26-2023 Erythrocyte distribution width (RBC) [Entitic vol] 49.3 fL 35.1-43.9 Erythrocyte distribution width (RBC) [Ratio] 16.8 % 11.6-14.6 Immature granulocytes/100 WBC (Bld) 0.400 % 0.0-0.9 Comment on above: IG% - Immature Granu locytes (promyelocytes, myelocytes and metamyelocytes) > 1% indicates that a LEFT SHIFT is Present. MCH (RBC) [Entitic mass] 25.1 pg 27.0-32.0 Nucleated RBC/100 WBC (Bld) [Ratio] 0 % 0-5 [facility]CH[facility] Auto (RBC) [Mass/Vol]Or dered By: Ju López on 06-26-2023 MCHC (RBC) [Mass/Vol] 30.1 g/dL 32-36 [facility] Mucus LM Ql (Urine sed)Order ed By: Ju López on 06-26-2023 Mucus Ql (Urine sed) 0 SEEN /hpf [facility] Nitrite Test strip Ql (U)Ord ered By: Ju López on 06-26-2023 Nitrite Ql (U) Negative Negative No Panel InformationOrdered By: Ju López on 06-26-2023 Estimated Creatinine Clearance Calc 42.58 ml/min Estimated GFR (MDRD) Amer 88 mL/min >60 Comment on above: GFR Calc Estimated GFR (MDRD) Non-Af Amer 72 mL/min >60 Comment on above: Non- GFR Calc Troponin I High Sensitivity 8 pg/mL 3.0-54.0 Comment on above: Please Note: [place] t Units and Gender Specific Reference Ranges. For more information see Policy Stat Procedure Ehrhardt High Sensitivity Troponin (TNIH) and attachments. Platelets bldOrdered By: Cesilia López on 06-26-2023 Platelets (Bld) [#/Vol] 397 10*3/uL 150-450 Protein Test strip Ql (U)Ord ered By: Ju Maribel on 06-26-2023 Protein Ql (U) 30 mg/dl Negative Serum or plasma albumin felipe urement (mass/volume)Ordered By: Rem Ungrubi on 06-26-2023 Albumin [Mass/Vol] 2.9 g/dL 3.2-5.0 [facility] Serum or plasma albumin/glob ulin mass ratioOrdered By: Remus Ungrubi on 06-26-2023 Albumin/Globulin [Mass ratio] 0.7 {ratio} 0.9-2.4 Serum or plasma calcium felipe urement (mass/volume)Ordered By: Rem Ungrbui on 06-26-2023 Calcium [Mass/Vol] 8.1 mg/dL 8.5-10.1 [facility] Serum or plasma creatinine m easurement (mass/volume)Ordered By: Remus López on 06-26-2023 Creatinine [Mass/Vol] 0.82 mg/dL 0.55-1.02 [facility] Comment on above: The validity of the calculated GFR & GFRAA in patients over 70 years has not been determined. Clinical correlation is essential. Serum or plasma urea nitroge n measurement (mass/volume)Ordered By: Ju Maribel on 06-26-2023 Urea nitrogen [Mass/Vol] 29 mg/dL 7-18 Squamous epithelial cells de tection in urine sediment by light microscopyOrdered By: Remus López on 06-26-2023 Epithelial cells.squamous LM Ql (Urine sed) 0-5 SEEN /hpf 5-10 Thin prep Papanicolaou smear with manual screeningOrdered By: Remus Ungrubi on 06-26-2023 Thin prep Papanicolaou smear with manual screening 18 U/L 15-37 Thin prep Papanicolaou smear with manual screening 7 5-15 Urine blood detectionOrdered By: Remus Ungrubi on 06-26-2023 RBC Ql (U) 25 /ul Negative RBC Ql (U) 0 SEEN /hpf 0-5 Urine clarityOrdered By: Rem us Ungrubi on 06-26-2023 Clarity (U) Clear Clear Urine color determinationOrd ered By: Ju López on 06-26-2023 Color (U) Yellow Yellow Urine glucose detectionOrder ed By: Ju López on 06-26-2023 Glucose Ql (U) Normal mg/dl Normal Urine leukocyte esterase det ection by dipstickOrdered By: Ju López on 06-26-2023 Leukocyte esterase Test strip Ql (U) 25 /ul Negative Urine pHOrdered By: Ju Un gur on 06-26-2023 pH (U) 6.0 [pH] 5.0 - 8.0 Urine sediment bacteria coun t by microscopy (number/high power field)Ordered By: Ju López on 06-26-2023 Bacteria LM.HPF (Urine sed) [#/Area] 0 /[HPF] None Seen Urine specific gravity measu rementOrdered By: Ju López on 06-26-2023 Specific gravity (U) [Rel density] 1.015 1.002-1.030 Urobilinogen Auto test strip Ql (U)Ordered By: Ju López on 06-26-2023 Urobilinogen Ql (U) Normal mg/dl Normal [facility] CBC W Auto Differential pane l (Bld)on 06-25-2023 Basophils (Bld) [#/Vol] 0.04 10*3/uL <0.11 k/uL [facility] Basophils/100 WBC (Bld) 0.5 % C [facility] Differential cell count method Nom (Bld) Auto [facility] Eosinophils (Bld) [#/Vol] 0.19 10*3/uL <0.46 k/uL [facility] Eosinophils/100 WBC (Bld) 2.2 % [facility] Erythrocyte distribution width (RBC) [Ratio] 16.3 % High 11.5 - 15.0 % [facility] Hematocrit (Bld) [Volume fraction] 39.0 % 36.0 - 46.0 % [facility] Hemoglobin (Bld) [Mass/Vol] 12.0 g/dL 11.5 - 15.5 g/dL [facility] Immature granulocytes (Bld) [#/Vol] 0.03 10*3/uL <0.10 k/uL [facility] Immature granulocytes/100 WBC (Bld) 0.3 % [facility] Lymphocytes (Bld) [#/Vol] 1.18 10*3/uL 1.00 - 4.00 k/uL [facility] Lymphocytes/100 WBC (Bld) 13.5 % [facility] MCH (RBC) [Entitic mass] 24.4 pg Low 26.0 - 34.[address] [facility] MCHC (RBC) [Mass/Vol] 30.8 g/dL 30.5 - 36.0 g/dL [facility] MCV (RBC) [Entitic vol] 79.3 fL Low 80.0 - 100.[address] [facility] Monocytes (Bld) [#/Vol] 0.72 10*3/uL <0.87 k/uL [facility] Monocytes/100 WBC (Bld) 8.2 % C [facility] Neutrophils (Bld) [#/Vol] 6.60 10*3/uL 1.45 - 7.50 k/uL [facility] Neutrophils/100 WBC (Bld) 75.3 % [facility] Nucleated RBC (Bld) [#/Vol] <0.01 k/uL [facility] Nucleated RBC/100 WBC (Bld) [Ratio] 0.0 /[address] [facility] Platelet mean volume (Bld) [Entitic vol] 9.2 fL 9.0 - 12.[address] [facility] Platelets (Bld) [#/Vol] 433 10*3/uL High 150 - 400 k /uL [facility] RBC (Bld) [#/Vol] 4.92 10*6/uL 3.90 - 5.2 0 m/uL [facility] WBC (Bld) [#/Vol] 8.76 10*3/uL 3.70 - 11. 00 k/uL [facility] Basophils (Bld) [#/Vol] 0.04 10*3/uL Normal <0.11 [facility] Comment on above: Order Comment: Speci men Type: BLOOD SPECIMENOrdering Facility: [facility] Address: [address] [place] [address] Performed By: #### 5 7021-8 ####[facility] CRYSTAL ARAGONCLOVISJULIO [id number] [place] [address] [place] Basophils/100 WBC (Bld) 0.5 % Normal C [facility] Comment on above: Order Comment: Speci men Type: BLOOD SPECIMENOrdering Facility: [facility] Address: [address] [place] [address] Performed By: #### 5 7021-8 ####[facility] [id number] [place] [address] [place] Differential cell count method Nom (Bld) Auto Normal [facility] Comment on above: Order Comment: Speci men Type: BLOOD SPECIMENOrdering Facility: [facility] Address: [address] [place] [address] Performed By: #### 5 7021-8 ####[facility]ITALNCTOO[facility] [id number] [place] [address] [place] Eosinophils (Bld) [#/Vol] 0.19 10*3/uL Normal <0.46 [facility] Comment on above: Order Comment: Speci men Type: BLOOD SPECIMENOrdering Facility: [facility] Address: [address] [place] [address] Performed By: #### 5 7021-8 ####[facility] [id number] [place] [address] [place] Eosinophils/100 WBC (Bld) 2.2 % Normal [facility] Comment on above: Order Comment: Speci men Type: BLOOD SPECIMENOrdering Facility: [facility] Address: [address] [place] [address] Performed By: #### 5 7021-8 ####[facility] [id number] [place] [address] [place] Erythrocyte distribution width (RBC) [Ratio] 16.3 % High 11.5-15.0 [facility] Comment on above: Order Comment: Speci men Type: BLOOD SPECIMENOrdering Facility: [facility] Address: [address] [place] [address] Performed By: #### 5 7021-8 ####[facility] HOSPITALNCROSE [id number] [address] [place] Hematocrit (Bld) [Volume fraction] 39.0 % Normal 36.0-46.0 [facility] Comment on above: Order Comment: Speci men Type: BLOOD SPECIMENOrdering Facility: [facility] Address: [address] [place] [address] Performed By: #### 5 7021-8 ####[facility]ITALNCTOOELE [facility] [id number] [place] [address] [place] Hemoglobin (Bld) [Mass/Vol] 12.0 g/dL Normal 11.5-15.5 [facility] Comment on above: Order Comment: Speci men Type: BLOOD SPECIMENOrdering Facility: [facility] Address: [address] [place] [address] Performed By: #### 5 7021-8 ####[facility] [id number] [place] [address] [place] Immature granulocytes (Bld) [#/Vol] 0.03 10*3/uL Normal <0.10 [facility] Comment on above: Order Comment: Speci men Type: BLOOD SPECIMENOrdering Facility: [facility] Address: [address] [place] [address] Performed By: #### 5 7021-8 ####[facility]ENTERLI [id number] [place] [address] [place] Immature granulocytes/100 WBC (Bld) 0.3 % Normal [facility] Comment on above: Order Comment: Speci men Type: BLOOD SPECIMENOrdering Facility: [facility] Address: [address] [place] [address] Performed By: #### 5 7021-8 ####[facility] H[facility]ITALNCLIA [id number] [place] [address] [place] Lymphocytes (Bld) [#/Vol] 1.18 10*3/uL Normal 1.00-4.00 [facility] Comment on above: Order Comment: Speci men Type: BLOOD SPECIMENOrdering Facility: [facility] Address: [address] [place] [address] Performed By: #### 5 7021-8 ####[facility] [id number] [place] [address] [place] Lymphocytes/100 WBC (Bld) 13.5 % Normal [facility] Comment on above: Order Comment: Speci men Type: BLOOD SPECIMENOrdering Facility: [facility] Address: [address] [place] [address] Performed By: #### 5 7021-8 ####[facility] [id number] [place] [address] [place] MCH (RBC) [Entitic mass] 24.4 pg Low 26.0-34.0 [facility] Comment on above: Order Comment: Speci men Type: BLOOD SPECIMENOrdering Facility: [facility] Address: [address] [place] [address] Performed By: #### 5 7021-8 ####[facility] HOS[facility]ITALNCLIA [id number] [place] [address] [place] MCHC (RBC) [Mass/Vol] 30.8 g/dL Normal 30.5-36.0 [facility] Comment on above: Order Comment: Speci men Type: BLOOD SPECIMENOrdering Facility: [facility] Address: [address] [place] [address] Performed By: #### 5 7021-8 ####[facility] HOSPITALNCLI [id number] [place] [address] [place] MCV (RBC) [Entitic vol] 79.3 fL Low 80.0-100.0 C [facility] Comment on above: Order Comment: Speci men Type: BLOOD SPECIMENOrdering Facility: [facility] Address: [address] [place] [address] Performed By: #### 5 7021-8 ####[facility]ITALNCTOOELE [facility] [id number] [place] [address] [place] Monocytes (Bld) [#/Vol] 0.72 10*3/uL Normal <0.87 [facility] Comment on above: Order Comment: Speci men Type: BLOOD SPECIMENOrdering Facility: [facility] Address: [address] [place] [address] Performed By: #### 5 7021-8 ####[facility] [id number] [place] [address] [place] Monocytes/100 WBC (Bld) 8.2 % Normal C [facility] Comment on above: Order Comment: Speci men Type: BLOOD SPECIMENOrdering Facility: [facility] Address: [address] [place] [address] Performed By: #### 5 7021-8 ####[facility] [id number] [place] [address] [place] Neutrophils (Bld) [#/Vol] 6.60 10*3/uL Normal 1.45-7.50 [facility] Comment on above: Order Comment: Speci men Type: BLOOD SPECIMENOrdering Facility: [facility] Address: [address] [place] [address] Performed By: #### 5 7021-8 ####[facility] [id number] [place] [address] [place] Neutrophils/100 WBC (Bld) 75.3 % Normal [facility] Comment on above: Order Comment: Speci men Type: BLOOD SPECIMENOrdering Facility: [facility] Address: [address] [place] [address] Performed By: #### 5 7021-8 ####[facility] MARGOCAROLELIA [id number] [place] [address] [place] Nucleated RBC (Bld) [#/Vol] 10*3/uL Normal <0.01 [facility] Comment on above: Order Comment: Speci men Type: BLOOD SPECIMENOrdering Facility: [facility] Address: [address] [place] [address] Performed By: #### 5 7021-8 ####[facility] CENTERLIA [id number] [place] [address] [place] Nucleated RBC/100 WBC (Bld) [Ratio] 0.0 /100 WBC Normal [facility] Comment on above: Order Comment: Speci men Type: BLOOD SPECIMENOrdering Facility: [facility] Address: [address] [place] [address] Performed By: #### 5 7021-8 ####[facility] FLORIDAA [id number] [place] [address] [place] Platelet mean volume (Bld) [Entitic vol] 9.2 fL Normal 9.0-12.7 [facility] Comment on above: Order Comment: Speci men Type: BLOOD SPECIMENOrdering Facility: [facility] Address: [address] [place] [address] Performed By: #### 5 7021-8 ####[facility] CENTERLIA [id number] [place] [address] [place] Platelets (Bld) [#/Vol] 433 10*3/uL High 150-400 [facility] Comment on above: Order Comment: Speci men Type: BLOOD SPECIMENOrdering Facility: [facility] Address: [address] [place] [address] Performed By: #### 5 7021-8 ####[facility] CENTERLIA [id number] [place] [address] [place] RBC (Bld) [#/Vol] 4.92 10*6/uL Normal 3.90-5.20 [facility] Comment on above: Order Comment: Speci men Type: BLOOD SPECIMENOrdering Facility: [facility] Address: [address] [place] [address] Performed By: #### 5 7021-8 ####[facility]ITALNCLIA [id number] [place] [address] [place] WBC (Bld) [#/Vol] 8.76 10*3/uL Normal 3.70-11.00 [facility] Comment on above: Order Comment: Speci men Type: BLOOD SPECIMENOrdering Facility: [facility] Address: [address] [place] [address] Performed By: #### 5 7021-8 ####[facility] HOS[facility]ITALNCLIA [id number] [place] [address] [place] CNPLeilani 06-25-2023 CNPN Telephone (HEMAWS) ROSITA KENNEDY ([id number]) 1945 F Date Time Provider Department 06/25/23 [...] RUBIO Max with any questions or updates. [phone] Domo Frazier DO 06/25/2023 2:48 PM Signed [...] once daily. - L GASSERI/B BIFIDUM/B LONGUM ([facility]) Take 1 tablet by [...] Eye [H* (more content not included)... Normal [facility] metabolic 2000 panelon 06-25-2023 Albumin [Mass/Vol] 3.8 g/dL Low 3.9 - 4.9 g/dL [facility] ALP [Catalytic activity/Vol] 116 U/L 34 - 123 U/L [facility] ALT [Catalytic activity/Vol] 7 U/L 7 - 38 U/L [facility] Anion gap [Moles/Vol] 12 mmol/L 9 - 18 mmol/L [facility] AST [Catalytic activity/Vol] 16 U/L 13 - 35 U/L [facility] Bilirubin [Mass/Vol] 0.4 mg/dL 0.2 - 1 .3 mg/dL [facility] Calcium [Mass/Vol] 8.7 mg/dL 8.5 - 10. 2 mg/dL [facility] Chloride [Moles/Vol] 100 mmol/L 97 - 10 5 mmol/L [facility] CO2 [Moles/Vol] 25 mmol/L 22 - 30 mmol/L [facility] Creatinine [Mass/Vol] 0.92 mg/dL 0.58 - 0.96 mg/dL [facility] Estimated Glomerular Filtration Rate 65 mL/min/1.73m >=60 mL/min/1.73m [facility] Glucose [Mass/Vol] 118 mg/dL High 74 - 99 mg/dL [facility] Potassium [Moles/Vol] 3.7 mmol/L 3.7 - 5.1 mmol/L [facility] Protein [Mass/Vol] 6.8 g/dL 6.3 - 8.0 g/dL [facility] Sodium [Moles/Vol] 137 mmol/L 136 - 144 mmol/L [facility] Urea nitrogen [Mass/Vol] 30 mg/dL High 7 - 21 mg/dL [facility] Albumin [Mass/Vol] 3.8 g/dL Low 3.9-4.9 [facility] Comment on above: Order Comment: Speci men Type: BLOOD SPECIMENOrdering Facility: [facility] Address: [address] [place] [address] Performed By: #### 2 4323-8 ####[facility] CENTERWNCLIA [id number] [place] [address] [place] ALP [Catalytic activity/Vol] 116 U/L Normal 34-123 [facility] Comment on above: Order Comment: Speci men Type: BLOOD SPECIMENOrdering Facility: [facility] Address: [address] [place] [address] Performed By: #### 2 4323-8 ####[facility] CENTERLIA [id number] [place] [address] [place] ALT [Catalytic activity/Vol] 7 U/L Normal 7-38 [facility] Comment on above: Order Comment: Speci men Type: BLOOD SPECIMENOrdering Facility: [facility] Address: [address] [place] [address] Performed By: #### 2 4323-8 ####[facility] CENTERLIA [id number] [place] [address] [place] Anion gap [Moles/Vol] 12 mmol/L Normal 9-18 [facility] Comment on above: Order Comment: Speci men Type: BLOOD SPECIMENOrdering Facility: [facility] Address: [address] [place] [address] Performed By: #### 2 4323-8 ####[facility] CENTERWNCLIA [id number] [place] [address] [place] AST [Catalytic activity/Vol] 16 U/L Normal 13-35 [facility] Comment on above: Order Comment: Speci men Type: BLOOD SPECIMENOrdering Facility: [facility] Address: [address] [place] [address] Performed By: #### 2 4323-8 ####[facility] CRYSTAL MILLVASUWNCLIA [id number] [place] [address] [place] Bilirubin [Mass/Vol] 0.4 mg/dL Normal 0.2-1.3 [facility] Comment on above: Order Comment: Speci men Type: BLOOD SPECIMENOrdering Facility: [facility] Address: [address] [place] [address] Performed By: #### 2 4323-8 ####[facility] MILLVASUWLYDIALIA [id number] [place] [address] [place] Calcium [Mass/Vol] 8.7 mg/dL Normal 8.5-10.2 [facility] Comment on above: Order Comment: Speci men Type: BLOOD SPECIMENOrdering Facility: [facility] Address: [address] [place] [address] Performed By: #### 2 4323-8 ####[facility] MILLVASUWLYDIALIA [id number] [place] [address] [place] Chloride [Moles/Vol] 100 mmol/L Normal 97-105 [facility] Comment on above: Order Comment: Speci men Type: BLOOD SPECIMENOrdering Facility: [facility] Address: [address] [place] [address] Performed By: #### 2 4323-8 ####[facility] MILLTOWNCLIA [id number] [place] [address] [place] CO2 [Moles/Vol] 25 mmol/L Normal 22-30 [facility] Comment on above: Order Comment: Speci men Type: BLOOD SPECIMENOrdering Facility: [facility] Address: [address] [place] [address] Performed By: #### 2 4323-8 ####[facility] MILLTOWNCLIA [id number] [place] [address] [place] Creatinine [Mass/Vol] 0.92 mg/dL Normal 0.58-0.96 [facility] Comment on above: Order Comment: Roc tan Type: BLOOD SPECIMENOrdering Facility: [facility] Address: [address] [place] [address] Performed By: #### 2 4323-8 ####[facility] [id number] [place] [address] [place] Creatinine and Glomerular filtration rate.predicted panel (S/P/Bld) 65 mL/min/1.73m??? Normal >=60 [facility] Comment on above: Order Comment: Roc tan Type: BLOOD SPECIMENOrdering Facility: [facility] Address: [address] [place] [address] Result Comment: Jefry mated Glomerular Filtration Rate [...] Performed By: #### 2 4323-8 ####[facility] [id number] [place] [address] [place] Glucose [Mass/Vol] 118 mg/dL High 74-99 [facility] Comment on above: Order Comment: Roc tan Type: BLOOD SPECIMENOrdering Facility: [facility] Address: [address] [place] [address] Result Comment: The [place] [employer] Association (ADA) provides guidance for cutoff [...] Standards of Medical Care in Diabetes 2016, [place] [employer]. Diabetes Care. 2016.39(Suppl 1). Performed By: #### 2 4323-8 ####[facility] CENTERLI [id number] [place] [address] [place] Potassium [Moles/Vol] 3.7 mmol/L Normal 3.7-5.1 [facility] Comment on above: Order Comment: Speci men Type: BLOOD SPECIMENOrdering Facility: [facility] Address: [address] [place] [address] Performed By: #### 2 4323-8 ####[facility] [id number] [place] [address] [place] Protein [Mass/Vol] 6.8 g/dL Normal 6.3-8.0 [facility] Comment on above: Order Comment: Speci men Type: BLOOD SPECIMENOrdering Facility: [facility] Address: [address] [place] [address] Performed By: #### 2 4323-8 ####[facility] [id number] [place] [address] [place] Sodium [Moles/Vol] 137 mmol/L Normal 136-144 [facility] Comment on above: Order Comment: Speci men Type: BLOOD SPECIMENOrdering Facility: [facility] Address: [address] [place] [address] Performed By: #### 2 4323-8 ####[facility] [id number] [place] [address] [place] Urea nitrogen [Mass/Vol] 30 mg/dL High 7-21 [facility] Comment on above: Order Comment: Speci men Type: BLOOD SPECIMENOrdering Facility: [facility] Address: [address] [place] [address] Performed By: #### 2 4323-8 ####[facility] CRYSTAL CRANEJULIO [id number] [place] [address] [place] Cortis SerPl-mCncon 06-25-20 23 Cortisol [Mass/Vol] 19.6 ug/dL High 4.8-19.5 [facility] Comment on above: Order Comment: Speci men Type: BLOOD SPECIMENOrdering Facility: [facility] Address: [address] [place] [address] Result Comment: Prov ided reference range is from 6-10 AM sample collection time. Cortisol Reference Range: 6-10 AM = 4.8-19.5 ug/dL, 4-8 PM = 2.5-11.9 ug/dL Performed By: #### 3 024-7, 6-3, 6 ####[facility] LABCLIA [id number] [place] [address] [place] T4 Free SerPl-mCncon 023 Free T4 [Mass/Vol] 1.1 ng/dL Normal 0.9-1.7 [facility] Comment on above: Order Comment: Speci men Type: BLOOD SPECIMENOrdering Facility: [facility] Address: [address] [place] [address] Performed By: #### 3 024-7, 3015-3, 2143-01 ####[facility] LABCLIA [id number] [place] [id number] [place] TSH SerPl-aCncon 06-25-2023 TSH Qn 5.140 m[IU]/L High 0.270-4.200 [facility] Comment on above: Order Comment: Speci men Type: BLOOD SPECIMENOrdering Facility: [facility] Address: [address] [place] [address] Performed By: #### 3 024-7, 3016-3, 2143-01 ####[facility] LABCLIA [id number] [facility] [id number] [address] [facility] Stephie 06-23-2023 CNPN Telephone (CRISTOPHER) ROSITA KENNEDY ([id number]) 1945 F Date Time Provider Department 06/23/23 [...] Roberts from son. Patient is currently at [facility]. Opened [facility] records. Patient was admitted for acute dehydration. [...] 71.7 H, Lymph % (Auto) 15.3 L, Pender % (Auto) 9.1, Eos % (Auto) 3.1, [...] Clarity Clear, Urine pH 6.0, Ur Specific Phillips 1.015, Urine Protein 30 H, Urine Glucose [...] 4:28 PM Signed Patient was discharged to [facility] on 06/29/21. Per [facility] notes: Date of Admission: 06/29/23 Date of Service: 06/29/23 Chief Complaint: Here for rehabilitation. HPI Narrative 06/26/2023 ROSITA KENNEDY, is a 77 Female who presents to Emergency Department with weakness, frequent falls. Generalized [...] RN 07/08/2023 9:28 AM Signed Per recent case preparer and liner note, plan is to d/c patient home tomorrow, 07/09/23. Patient will be discharged home with home health through [facility] PT/OT/ST. Patient is also established with [employer] (more content not included)... Normal [facility] Stephie 06-22-2023 ARTI Telephone (CRISTOPHER) ROSITA KENNEDY ([id number]) 1945 F Date Time Provider Department 06/22/23 DOMO FRAZIER During your visit today, we recorded the following information about you: Britni Gamble 06/22/2023 8:53 AM Signed Winter called stating patient is not eating or drinking and is having extreme fatigue. She is asking if OV is needed. Care Coord went to . Please advise. Mason Quintero RN 06/22/2023 11:48 AM Signed [facility] Care Coordination FOLLOW-UP NOTE Called daughter, there was no answer. A message was left informing her that this nurse spoke to Rosita yesterday and we received [facility] message. This nurse is planning on meeting [...] and will most likely take patient to [facility] for IVF this evening. This nurse [...] once daily. - L GASSERI/B BIFIDUM/B LONGUM ([employer] [facility] ORAL) Take 1 tablet by mouth [...] 10/14/2017 Glaucoma (more content not included)... [facility] CNPN Telephone (CRISTOPHER) RSOITA KENNEDY ([id number]) 1945 F Date Time Provider Department 06/18/23 [...] Fully Assessed Reason for Visit: Patient Question [3957] Prescriptions as of 06/18/2023 - potassium chloride [...] once daily. - L GASSERI/B BIFIDUM/B LONGUM ([facility] [employer] [facility] ORAL) Take 1 tablet by mouth [...] mild sta*03/01/2017 (more content not included)... Normal [facility] Stephie 06-17-2023 MALIKN Telephone (CRISTOPHER) ROSITA KENNEDY ([id number]) 1945 F Date Time Provider Department 06/17/23 [...] RN - Fully Assessed Reason for Visit: Bit Grinder - Other [6515] Cmt: Follow-up Prescriptions as of 06/18/2023 - [...] Use 1 (more content not included)... Normal [facility] 06-14-2023 ARTI Telephone (HEMURIEL) ROSITA KENNEDY ([id number]) 1945 F Date Time Provider Department 06/14/23 [...] over the weekend and ate at a gnosticism lunch. Nausea and vomiting x 2 episodes [...] around 5 pm. Patient was at a gnosticism luncheon on Wednesday afternoon. Wednesday evening, patient [...] RN - Fully Assessed Reason for Visit: Bit Grinder - Other [3602] Cmt: C1D1 Post Treatment [...] meloxicam (MOBIC) (more content not included)... Normal [facility] CBC W Auto Differential pane l (Bld)on 06-11-2023 Basophils (Bld) [#/Vol] 0.03 10*3/uL <0.11 k/uL [facility] Basophils/100 WBC (Bld) 0.5 % [facility] Differential cell count method Nom (Bld) Auto [facility] Eosinophils (Bld) [#/Vol] 0.39 10*3/uL <0.46 k/uL [facility] Eosinophils/100 WBC (Bld) 6.7 % [facility] Erythrocyte distribution width (RBC) [Ratio] 16.4 % High 11.5 - 15.0 % [facility] Hematocrit (Bld) [Volume fraction] 37.3 % 36.0 - 46.0 % [facility] Hemoglobin (Bld) [Mass/Vol] 11.5 g/dL 11.5 - 15.5 g/dL [facility] Immature granulocytes (Bld) [#/Vol] 0.03 10*3/uL <0.10 k/uL [facility] Immature granulocytes/100 WBC (Bld) 0.5 % [facility] Lymphocytes (Bld) [#/Vol] 1.40 10*3/uL 1.00 - 4.00 k/uL [facility] Lymphocytes/100 WBC (Bld) 24.0 % [facility] MCH (RBC) [Entitic mass] 24.7 pg Low 26.0 - 34.[address] [facility] MCHC (RBC) [Mass/Vol] 30.8 g/dL 30.5 - 36.0 g/dL [facility] MCV (RBC) [Entitic vol] 80.0 fL 80.0 - 100.[address] [facility] Monocytes (Bld) [#/Vol] 0.63 10*3/uL <0.87 k/uL [facility] Monocytes/100 WBC (Bld) 10.8 % [facility] Neutrophils (Bld) [#/Vol] 3.35 10*3/uL 1.45 - 7.50 k/uL [facility] Neutrophils/100 WBC (Bld) 57.5 % [facility] Nucleated RBC (Bld) [#/Vol] <0.01 k/uL [facility] Nucleated RBC/100 WBC (Bld) [Ratio] 0.0 /[address] [facility] Platelet mean volume (Bld) [Entitic vol] 9.9 fL 9.0 - 12.[address] [facility] Platelets (Bld) [#/Vol] 366 10*3/uL 150 - 400 k /uL [facility] RBC (Bld) [#/Vol] 4.66 10*6/uL 3.90 - 5.2 0 m/uL [facility] WBC (Bld) [#/Vol] 5.83 10*3/uL 3.70 - 11. 00 k/uL [facility] Basophils (Bld) [#/Vol] 0.03 10*3/uL Normal <0.11 [facility] Comment on above: Order Comment: Speci men Type: BLOOD SPECIMENOrdering Facility: [facility] Address: [address] [place] [address] Performed By: #### 5 7021-8 ####[facility] CRYSTAL CRANEJULIO [id number] [place] [id number] [place] Basophils/100 WBC (Bld) 0.5 % Normal C [facility] Comment on above: Order Comment: Speci men Type: BLOOD SPECIMENOrdering Facility: [facility] Address: [address] [place] [address] Performed By: #### 5 7021-8 ####[facility]ITALNCLIA [id number] [place] [address] [place] Differential cell count method Nom (Bld) Auto Normal [facility] Comment on above: Order Comment: Speci men Type: BLOOD SPECIMENOrdering Facility: [facility] Address: [address] [place] [address] Performed By: #### 5 7021-8 ####[facility] HOS[facility]ITALNCLI [id number] [place] [address] [place] Eosinophils (Bld) [#/Vol] 0.39 10*3/uL Normal <0.46 [facility] Comment on above: Order Comment: Speci men Type: BLOOD SPECIMENOrdering Facility: [facility] Address: [address] [place] [address] Performed By: #### 5 7021-8 ####[facility] H[facility]ITALNCLIA [id number] [place] [address] [place] Eosinophils/100 WBC (Bld) 6.7 % Normal [facility] Comment on above: Order Comment: Speci men Type: BLOOD SPECIMENOrdering Facility: [facility] Address: [address] [place] [address] Performed By: #### 5 7021-8 ####[facility] CENTERLI [id number] [place] [address] [place] Erythrocyte distribution width (RBC) [Ratio] 16.4 % High 11.5-15.0 [facility] Comment on above: Order Comment: Speci men Type: BLOOD SPECIMENOrdering Facility: [facility] Address: [address] [place] [address] Performed By: #### 5 7021-8 ####[facility] H[facility]ITALNCLIA [id number] [place] [address] [place] Hematocrit (Bld) [Volume fraction] 37.3 % Normal 36.0-46.0 [facility] Comment on above: Order Comment: Speci men Type: BLOOD SPECIMENOrdering Facility: [facility] Address: [address] [place] [address] Performed By: #### 5 7021-8 ####[facility] HOSPITALJULIO [id number] [place] [address] [place] Hemoglobin (Bld) [Mass/Vol] 11.5 g/dL Normal 11.5-15.5 [facility] Comment on above: Order Comment: Speci men Type: BLOOD SPECIMENOrdering Facility: [facility] Address: [address] [place] [address] Performed By: #### 5 7021-8 ####[facility] HOSPITALJULIO [id number] [place] [address] [place] Immature granulocytes (Bld) [#/Vol] 0.03 10*3/uL Normal <0.10 [facility] Comment on above: Order Comment: Speci men Type: BLOOD SPECIMENOrdering Facility: [facility] Address: [address] [place] [address] Performed By: #### 5 7021-8 ####[facility] HOSPITALSAURABHA [id number] [place] [address] [place] Immature granulocytes/100 WBC (Bld) 0.5 % Normal [facility] Comment on above: Order Comment: Speci men Type: BLOOD SPECIMENOrdering Facility: [facility] Address: [address] [place] [address] Performed By: #### 5 7021-8 ####[facility] H[facility]ITALNCLIA [id number] [place] [address] [place] Lymphocytes (Bld) [#/Vol] 1.40 10*3/uL Normal 1.00-4.00 [facility] Comment on above: Order Comment: Speci men Type: BLOOD SPECIMENOrdering Facility: [facility] Address: [address] [place] [address] Performed By: #### 5 7021-8 ####[facility] MARGOCHANO [id number] [place] [address] [place] Lymphocytes/100 WBC (Bld) 24.0 % Normal [facility] Comment on above: Order Comment: Speci men Type: BLOOD SPECIMENOrdering Facility: [facility] Address: [address] [place] [address] Performed By: #### 5 7021-8 ####[facility] HOSPITALNCTOOELE VALLEY [facility] [id number] [place] [address] [place] MCH (RBC) [Entitic mass] 24.7 pg Low 26.0-34.0 [facility] Comment on above: Order Comment: Speci men Type: BLOOD SPECIMENOrdering Facility: [facility] Address: [address] [place] [address] Performed By: #### 5 7021-8 ####[facility] [id number] [place] [address] [place] MCHC (RBC) [Mass/Vol] 30.8 g/dL Normal 30.5-36.0 [facility] Comment on above: Order Comment: Speci men Type: BLOOD SPECIMENOrdering Facility: [facility] Address: [address] [place] [address] Performed By: #### 5 7021-8 ####[facility] [id number] [place] [address] [place] MCV (RBC) [Entitic vol] 80.0 fL Normal 80.0-100.0 C [facility] Comment on above: Order Comment: Speci men Type: BLOOD SPECIMENOrdering Facility: [facility] Address: [address] [place] [address] Performed By: #### 5 7021-8 ####[facility] MILLWNCLIA [id number] [place] [address] [place] Monocytes (Bld) [#/Vol] 0.63 10*3/uL Normal <0.87 [facility] Comment on above: Order Comment: Speci men Type: BLOOD SPECIMENOrdering Facility: [facility] Address: [address] [place] [address] Performed By: #### 5 7021-8 ####[facility] CENTERLIA [id number] [place] [address] [place] Monocytes/100 WBC (Bld) 10.8 % Normal [facility] Comment on above: Order Comment: Speci men Type: BLOOD SPECIMENOrdering Facility: [facility] Address: [address] [place] [address] Performed By: #### 5 7021-8 ####[facility] CENTERLIA [id number] [place] [address] [place] Neutrophils (Bld) [#/Vol] 3.35 10*3/uL Normal 1.45-7.50 [facility] Comment on above: Order Comment: Speci men Type: BLOOD SPECIMENOrdering Facility: [facility] Address: [address] [place] [address] Performed By: #### 5 7021-8 ####[facility] CENTERLIA [id number] [place] [address] [place] Neutrophils/100 WBC (Bld) 57.5 % Normal [facility] Comment on above: Order Comment: Speci men Type: BLOOD SPECIMENOrdering Facility: [facility] Address: [address] [place] [address] Performed By: #### 5 7021-8 ####[facility]ITALNCLIA [id number] [place] [address] [place] Nucleated RBC (Bld) [#/Vol] 10*3/uL Normal <0.01 [facility] Comment on above: Order Comment: Speci men Type: BLOOD SPECIMENOrdering Facility: [facility] Address: [address] [place] [address] Performed By: #### 5 7021-8 ####[facility] [id number] [place] [address] [place] Nucleated RBC/100 WBC (Bld) [Ratio] 0.0 /100 WBC Normal [facility] Comment on above: Order Comment: Speci men Type: BLOOD SPECIMENOrdering Facility: [facility] Address: [address] [place] [address] Performed By: #### 5 7021-8 ####[facility] [id number] [place] [address] [place] Platelet mean volume (Bld) [Entitic vol] 9.9 fL Normal 9.0-12.7 [facility] Comment on above: Order Comment: Speci men Type: BLOOD SPECIMENOrdering Facility: [facility] Address: [address] [place] [address] Performed By: #### 5 7021-8 ####[facility] [id number] [place] [address] [place] Platelets (Bld) [#/Vol] 366 10*3/uL Normal 150-400 [facility] Comment on above: Order Comment: Speci men Type: BLOOD SPECIMENOrdering Facility: [facility] Address: [address] [place] [address] Performed By: #### 5 7021-8 ####[facility] [id number] [place] [address] [place] RBC (Bld) [#/Vol] 4.66 10*6/uL Normal 3.90-5.20 [facility] Comment on above: Order Comment: Speci men Type: BLOOD SPECIMENOrdering Facility: [facility] Address: [place] [address] Performed By: #### 5 7021-8 ####[facility]ITALNCLIA [id number] [address] WBC (Bld) [#/Vol] 5.83 10*3/uL Normal 3.70-11.00 [facility] Comment on above: Order Comment: Speci men Type: BLOOD SPECIMENOrdering Facility: [facility] Address: [address] [facility] [place] [address] Performed By: #### 5 7021-8 ####[facility]ITALNCLIA [id number] [address] [place] Comprehensive metabolic 2000 panelon 06-11-2023 Albumin [Mass/Vol] 3.9 g/dL 3.9 - 4.9 g/dL [facility] ALP [Catalytic activity/Vol] 126 U/L High 34 - 123 U/L [facility] ALT [Catalytic activity/Vol] 7 U/L 7 - 38 U/L [facility] Anion gap [Moles/Vol] 10 mmol/L 9 - 18 mmol/L [facility] AST [Catalytic activity/Vol] 19 U/L 13 - 35 U/L [facility] Bilirubin [Mass/Vol] 0.3 mg/dL 0.2 - 1 .3 mg/dL [facility] Calcium [Mass/Vol] 9.0 mg/dL 8.5 - 10. 2 mg/dL [facility] Chloride [Moles/Vol] 103 mmol/L 97 - 10 5 mmol/L [facility] CO2 [Moles/Vol] 23 mmol/L 22 - 30 mmol/L [facility] Creatinine [Mass/Vol] 0.76 mg/dL 0.58 - 0.96 mg/dL [facility] Estimated Glomerular Filtration Rate 82 mL/min/1.73m >=60 mL/min/1.73m [facility] Glucose [Mass/Vol] 94 mg/dL 74 - 99 mg/dL [facility] Potassium [Moles/Vol] 3.7 mmol/L 3.7 - 5.1 mmol/L [facility] Protein [Mass/Vol] 6.6 g/dL 6.3 - 8.0 g/dL [facility] Sodium [Moles/Vol] 136 mmol/L 136 - 144 mmol/L [facility] Urea nitrogen [Mass/Vol] 16 mg/dL 7 - 21 mg/dL [facility] Albumin [Mass/Vol] 3.9 g/dL Normal 3.9-4.9 [facility] Comment on above: Order Comment: Speci men Type: BLOOD SPECIMENOrdering Facility: [facility] Address: [address] [place] [address] Performed By: #### 2 4323-8 ####[facility] MILLWOHLIA [id number] [place] [address] [place] ALP [Catalytic activity/Vol] 126 U/L High 34-123 [facility] Comment on above: Order Comment: Speci men Type: BLOOD SPECIMENOrdering Facility: [facility] Address: [address] [place] [address] Performed By: #### 2 4323-8 ####[facility] CENTERLIA [id number] [place] [address] [place] ALT [Catalytic activity/Vol] 7 U/L Normal 7-38 [facility] Comment on above: Order Comment: Speci men Type: BLOOD SPECIMENOrdering Facility: [facility] Address: [address] [place] [address] Performed By: #### 2 4323-8 ####[facility]ENTERWNCLIA [id number] [place] [address] [place] Anion gap [Moles/Vol] 10 mmol/L Normal 9-18 [facility] Comment on above: Order Comment: Speci men Type: BLOOD SPECIMENOrdering Facility: [facility] Address: [address] [place] [address] Performed By: #### 2 4323-8 ####[facility] MILLWNCLIA [id number] [place] [address] [place] AST [Catalytic activity/Vol] 19 U/L Normal 13-35 [facility] Comment on above: Order Comment: Speci men Type: BLOOD SPECIMENOrdering Facility: [facility] Address: [address] [place] [address] Performed By: #### 2 4323-8 ####[facility] CENTERWLYDIALIA [id number] [place] [address] [place] Bilirubin [Mass/Vol] 0.3 mg/dL Normal 0.2-1.3 [facility] Comment on above: Order Comment: Speci men Type: BLOOD SPECIMENOrdering Facility: [facility] Address: [address] [place] [address] Performed By: #### 2 4323-8 ####[facility]ITALNCLIA [id number] [place] [address] [place] Calcium [Mass/Vol] 9.0 mg/dL Normal 8.5-10.2 [facility] Comment on above: Order Comment: Speci men Type: BLOOD SPECIMENOrdering Facility: [facility] Address: [address] [place] [address] Performed By: #### 2 4323-8 ####[facility]ITALNCLIA [id number] [place] [address] [place] Chloride [Moles/Vol] 103 mmol/L Normal 97-105 [facility] Comment on above: Order Comment: Speci men Type: BLOOD SPECIMENOrdering Facility: [facility] Address: [address] [place] [address] Performed By: #### 2 4323-8 ####[facility]ITALNCLIA [id number] [place] [address] [place] CO2 [Moles/Vol] 23 mmol/L Normal 22-30 [facility] Comment on above: Order Comment: Speci men Type: BLOOD SPECIMENOrdering Facility: [facility] Address: [address] [place] [address] Performed By: #### 2 4323-8 ####[facility] MARGOCLOVISNCGLORIA [id number] [place] [address] [place] Creatinine [Mass/Vol] 0.76 mg/dL Normal 0.58-0.96 [facility] Comment on above: Order Comment: Speci men Type: BLOOD SPECIMENOrdering Facility: [facility] Address: [address] [place] [address] Performed By: #### 2 4323-8 ####[facility] HOSPITALNCTOOELE VALLEY [facility] [id number] [place] [address] [place] Creatinine and Glomerular filtration rate.predicted panel (S/P/Bld) 82 mL/min/1.73m??? Normal >=60 [facility] Comment on above: Order Comment: Speci men Type: BLOOD SPECIMENOrdering Facility: [facility] Address: [address] [place] [address] Result Comment: Jefry mated Glomerular Filtration Rate [...] Performed By: #### 2 4323-8 ####[facility] H[facility]ITALNCLIA [id number] [place] [address] [place] Glucose [Mass/Vol] 94 mg/dL Normal 74-99 [facility] Comment on above: Order Comment: Speci men Type: BLOOD SPECIMENOrdering Facility: [facility] Address: [address] [place] [address] Result Comment: The [place] [employer] (ADA) provides guidance for cutoff [...] Standards of Medical Care in Diabetes 2016, [place] [employer]. Diabetes Care. 2016.39(Suppl 1). Performed By: #### 2 4323-8 ####[facility] MILLWOHLIA [id number] [place] [address] [place] Potassium [Moles/Vol] 3.7 mmol/L Normal 3.7-5.1 [facility] Comment on above: Order Comment: Speci men Type: BLOOD SPECIMENOrdering Facility: [facility] Address: [address] [place] [address] Performed By: #### 2 4323-8 ####[facility] CENTERLIA [id number] [place] [address] [place] Protein [Mass/Vol] 6.6 g/dL Normal 6.3-8.0 [facility] Comment on above: Order Comment: Speci men Type: BLOOD SPECIMENOrdering Facility: [facility] Address: [address] [place] [address] Performed By: #### 2 4323-8 ####[facility]ITALNCLIA [id number] [place] [address] [place] Sodium [Moles/Vol] 136 mmol/L Normal 136-144 [facility] Comment on above: Order Comment: Speci men Type: BLOOD SPECIMENOrdering Facility: [facility] Address: [address] [place] [address] Performed By: #### 2 4323-8 ####[facility] CENTERLIA [id number] [place] [address] [place] Urea nitrogen [Mass/Vol] 16 mg/dL Normal 7-21 [facility] Comment on above: Order Comment: Speci men Type: BLOOD SPECIMENOrdering Facility: [facility] Address: [address] [place] [address] Performed By: #### 2 4323-8 ####[facility]AL [facility] CENTERLIA [id number] [place] [address] [place] Cortis SerPl-mCncon 06-11-20 23 Cortisol [Mass/Vol] 20.4 ug/dL High 4.8-19.5 [facility] Comment on above: Order Comment: Speci men Type: BLOOD SPECIMENOrdering Facility: [facility] Address: [address] [place] [address] Result Comment: Prov ided reference range is from 6-10 AM sample collection time. Cortisol Reference Range: 6-10 AM = 4.8-19.5 ug/dL, 4-8 PM = 2.5-11.9 ug/dL Performed By: #### 3 024-7, 3016-3, 2143-6 ####[facility] LABCLIA [id number] [place] [address] [place] [id number] 06-11-2023 ECG01 Ventricular Rate : 8 7 BPM Atrial Rate : 87 BPM P-R Interval : 140 ms QRS Duration : 66 ms Q-T Interval : 356 ms QTC Calculation(Bazett) : 428 ms Calculated P [place] : 27 degrees Calculated R [place] : -24 degrees Calculated T [place] : 32 degrees SINUS RHYTHM WITH FREQUENT PACs MINIMAL VOLTAGE CRITERIA FOR LVH, MAY BE NORMAL VARIANT ABNORMAL ECG Reconfirmed by NANCY PARK DO ([id number]) on 06/16/2023 4:33:51 PM NAME : ROSITA KENNEDY PID : [id number] : 1945 Gender : Female Race : ORD : Procedure Date : Jun 11 2023 08:58:34 Edit Date : Jun 16 2023 16:33:57 Diagnosis: SINUS RHYTHM WITH FREQUENT PACs MINIMAL VOLTAGE CRITERIA FOR LVH, MAY BE NORMAL VARIANT ABNORMAL ECG Reconfirmed by NANCY PARK DO ([id number]) on 06/16/2023 4:33:51 PM Test Reason : Location : 136 : [facility] Overread By : NANCY PARK DO Edited By : NANCY PARK DO Referred By : DOMO FRAZIER Acquired by : CR, Normal [facility] HBV core Ab Ser Qlon 023 HBV core Ab Ql (S) Negative Normal Negative [facility] Comment on above: Order Comment: Speci men Type: BLOOD SPECIMENOrdering Facility: [facility] Address: [address] [place] [address] Result Comment: No e vidence of current or past infection with Hepatitis B virus. Should recent infection be suspected, repeat testing may be considered 3-4 weeks after this draw. Performed By: #### 5 195-3, 61552-2, 81077-2 ####[facility] LABCLIA [id number] [place] [address] [place] HBV surface Ab Ql (S)on 05-30 HBV surface Ab Qn (S) <8.00 Normal [facility] Comment on above: Order Comment: Speci britney Type: BLOOD SPECIMENOrdering Facility: [facility] Address: [address] [place] [address] Result Comment: <8 m IU/mL: No serological evidence of immunity to Hepatitis B Virus. >/= 8 to <12 mIU/mL: No serological evidence of immunity to Hepatitis B Virus. >/= 12 mIU/mL: Consistent with serological evidence of immunity to Hepatitis B Virus. Performed By: #### 5 195-3, 18328-6, 22710-3 ####[facility] LABCLIA [id number] [place] [address] [place] HBV surface Ab Ser Qlon 05-30 HBV surface Ab Ql (S) Negative Normal [facility] Comment on above: Order Comment: Estellai britney Type: BLOOD SPECIMENOrdering Facility: [facility] Address: [address] [place] [address] Result Comment: No s erological evidence of immunity to Hepatitis B Virus. Performed By: #### 5 195-3, 05831-8, 25081-0 ####[facility] LABCLIA [id number] [place] [address] [place] HBV surface Ag Ser Qlon 05-30 HBV surface Ag Ql (S) Negative Normal Negative [facility] Comment on above: Order Comment: Speci men Type: BLOOD SPECIMENOrdering Facility: [facility] Address: [address] [place] [address] Performed By: #### 5 195-3, 55910-0, 96903-5 ####[facility] LABIA [id number] [place] [address] [place] HCV Ab Ser Qlon 06-11-2023 HCV Ab Ql (S) Negative Normal Negative [facility] Comment on above: Order Comment: Speci men Type: BLOOD SPECIMENOrdering Facility: [facility] Address: [address] [place] [address] Result Comment: The result suggests no evidence of active infection with Hepatitis C virus. Should recent infection be suspected, repeat testing may be considered 4-6 weeks after this draw. Performed By: #### 1 6128-1 ####[facility] [id number] [place] [address] [place] T4 Free SerPl-mCncon 023 Free T4 [Mass/Vol] 1.1 ng/dL Normal 0.9-1.7 [facility] Comment on above: Order Comment: Speci men Type: BLOOD SPECIMENOrdering Facility: [facility] Address: [address] [place] [address] Performed By: #### 3 024-7, 3016-3, 2143-6 ####[facility] [id number] [place] [address] [place] [facility] SerPl-aCncon 06-11-2023 TSH Qn 4.260 m[IU]/L High 0.270-4.200 [facility] Comment on above: Order Comment: Roc britney Type: BLOOD SPECIMENOrdering Facility: [facility] Address: [address] [place] [address] Performed By: #### 3 024-7, 3016-3, 2143-6 ####[facility] LABCLIA [id number] [address] VARGAS [id number] [place] CNPNon 06-03-2023 CNPN Telephone (HEMAWS) ROSITA KENNEDY ([id number]) 1945 F Date Time Provider Department 06/03/23 [...] Ma - Fully Assessed 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 for Visit: Bit Grinder - Other [3602] Cmt: Oral Chemotherapy Medication (Lenvatinib) Primary Visit Diagnosis:Endometrial cancer (HCC) [C54.1] Other Visit Diagnosis:Acquired hypothyroidism [E03.9] Order(s):lenvatinib (LENVIMA) 20 mg/day (10 mg x 2) capsulesTake 2 capsules (20 mg) by mouth once daily.Disp: 60 capsuleRfl: 5 UA DIP, URINE (POC) [4358641] Order #: [id number] STANDING HEP REMOTE PANEL BL [SQHREMOP] Order #: [id number] FUTURE ECG COMPLETE [ECG01] Order #: [id number] FUTURE CBC + DIFF [SQCBCDIF] Order #: [id number] STANDING COMP METABOLIC PANEL [SQCMP] Order #: [id number] STANDING TSH BLD [SQTSH] Order #: [id number] STANDING T4 FREE/FREE THYROX [SQFT4] Order #: [id number] STANDING CORTISOL BLD [SQCOR] Order #: [id number] STANDING Prescriptions as of 06/11/2023 - aspirin, [...] hold it. - L GASSERI/B BIFIDUM/B LONGUM ([facility] [employer] [facility] ORAL) Take 1 tablet by mouth once [...] - po (more content not included)... Normal [facility] CNOVSPon 06-01-2023 CNOVSP Visit (SP) Office (CRISTOPHER) [place]ENTR[address] ([id number]) 1945 F Date Time Provider Department 06/01/23 [...] removal. Pt declined cytotoxic therapy ER 50%, DC negative 9). 03/31/2018 - 03/16/2019: Letrozole started. Everolimus added 06/23/2018 due to progression. Treatment discontinued 03/16/2019 due to disease progression (confirmed 03/06/2019). Patient elected treatment holiday. 10). 08/2018: PE, IVC filter placement 11). 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 01/01/2022: [facility]. Recommended RT (vs systemic chemotherapy) for management of hypermetabolic aortocaval lymphadenopathy. Patient would prefer treatment in [place], [place]. 13). 02/24/2022 - 03/03/2022: Radiation Therapy (SBRT) - The Aortocaval LNs PTV received a total dose of 2400 cGy in [address] Youngblood 14) 09/03/2022 - 09/07/2022: Hospital admission: TCU resident for debility, RY, dehydration, UTI, extensive RLE DVT. 09/07/2022 Admitted to for heparin drip secondary to DVT 09/08/2022-09/10/2022: Surgical management w/ Dr. Schaefer for extensive RLE DVT. Patient underwent thrombectomy, balloon angioplasty of right lower extremity DVT and IVC venogram, percutaneous thrombectomy IVC, bilateral common and external arteries angioplasty, IVUS. Patient required admission and rehabilitation. 15) 10/2022: PET scan with few new retrocrural lymph nodes suspicious for metastases. Cooker Chip/Onc plan made for observation w/ repeat PET/CT [...] tightness continued so pt was transferred to [facility] Patient had another reaction on 03/23 during inpatient Doxil re-challenge, so treatment was cancelled. 18) 03/31/2023: Second opinion and transfer of care to [facility] primary. Elected to have treatment holiday [...] SURGICAL HI (more content not included)... Normal [facility] Stephie 06-01-2023 ARTI Telephone (CRISTOPHER) ROSITA KENNEDY ([id number]) 1945 F Date Time Provider Department 06/01/23 DOMO FRAZIER During your visit today, we recorded the following information about you: Mahsa Boucher 06/02/2023 10:34 AM Addendum Schedule CBC/CMP/TSH/[id number] L/OV/Q3WK KEYTRUDA/ORAL CHEMO when xcgoquat-rf-vkm calls in on 06/02/23. Per Staff message, [...] was originally supposed to get Keytruda at [facility] on 06/02, but it was cancelled. Patient does not need OV w/ first dose here, but Keytruda needs rescheduled due to authorization. LM for patient's detwxbub-zf-xnl to return call. When she calls, please [...] once daily. - L GASSERI/B BIFIDUM/B LONGUM ([facility]) Take 1 tablet by [...] combined f (more content not included)... [facility] (CRISTOPHER) ROSITA KENNEDY ([id number]) 1945 F Date Time Provider Department 05/26/23 [...] once daily. - L GASSERI/B BIFIDUM/B LONGUM ([employer] [facility] ORAL) Take by mouth. - CHOLECALCIFEROL, [...] (CA-125) [R97.1] (more content not included)... Normal [facility] No Panel Informationon 05-[address] [facility] UA MICROSCOPICon 04-28-2023 BACTERIA 1+ /HPF Abnormal [facility] Comment on above: Performed By: #### U AMIC #### [place] [address] Mucus Ql (Urine sed) 2+ /LPF Normal [facility] Comment on above: Performed By: #### U AMIC #### [place] [address] RBC 3 /HPF Normal 0-5 [facility] Comment on above: Performed By: #### U AMIC #### [place] [address] SQUAMOUS EPITH. CELLS 2 /HPF Normal [facility] Comment on above: Performed By: #### U AMIC #### [place] [address] WBC 84 /HPF Abnormal 0-5 [facility] Comment on above: Performed By: #### U AMIC #### [place] [address] WBC CLUMPS FEW Normal [facility] Comment on above: Performed By: #### U AMIC #### [place] [id number] URINALYSISon 04-28-2023 Appearance (U) HAZY Normal CLEAR [facility] Comment on above: Performed By: #### U A #### [address] [address] Bilirubin Ql (U) Negative Normal NEGATIVE [facility] Comment on above: Performed By: #### U A #### [address] [address] Color (U) Yellow Normal STRAW,YELLOW [facility] Comment on above: Performed By: #### U A #### [address] [address] Glucose Ql (U) Negative Normal NEGATIVE [facility] Comment on above: Performed By: #### U A #### [address] [address] Hemoglobin Ql (U) Negative Normal NEGATIVE [facility] Comment on above: Performed By: #### U A #### [place] [address] Ketones Ql (U) Negative Normal NEGATIVE [facility] Comment on above: Performed By: #### U A #### [address] [address] Leukocyte esterase Test strip Ql (U) SMALL (1+) Abnormal NEGATIVE [facility] Comment on above: Performed By: #### U A #### [address] [address] Nitrite Ql (U) Negative Normal NEGATIVE [facility] Comment on above: Performed By: #### U A #### [address] [address] pH (U) 5.0 [pH] Normal 5.0 - 8.0 [facility] Comment on above: Performed By: #### U A #### [address] [address] Protein Ql (U) 30 (1+) Abnormal NEGATIVE [facility] Comment on above: Performed By: #### U A #### [address] [address] Specific gravity (U) [Rel density] 1.018 Normal 1.005 - 1.035 [facility] Comment on above: Performed By: #### U A #### [address] [address] Urobilinogen (U) [Mass/Vol] mg/dL Normal 0.0 - 1.9 [facility] Comment on above: Performed By: #### U A #### [address] [address] URINE CULTURE,BACTERIALon URINE CULTURE,BACTERIAL PATIENT: ROSITA KENNEDY LOCATION: [facility] BILL#: [id number] : [birth year] AGE: SEX: F ORDERED BY: LORETTA WOLFE SOURCE: URINE COLLECTED: 04/28/23 16:04 ANTIBIOTICS AT BOBBY.: RECEIVED : 04/29/23 00:17 SITE: Clean Catch/Voided R E S U L T S URINE CULTURE,BACTERIAL FINAL 04/29/23 17:07 NO SIGNIFICANT GROWTH. Normal [facility] Comment on above: Performed By: #### [facility] #### [facility] [address] [place] [address] Provider Note - ED v3on 03-30 Provider [...] SIGNS: T PRBP SpO2O2(LPM) %FiO2 Method 13-Apr-2023 16:13:[id number]/ 61 98 MDM MDM/ED COURSE: Discussed Findings [...] Electronic Signatures for Addendum Section: Blanca Mitchell ([facility]) (Signed Addendum 16-Apr-2023 14:13) Reviewed urine culture result with patient - infection sensitive to Cipro. Patient states is feeling better; advised to finish antibiotic as directed, push fluids, and seek care if not continuing to improved. Patient stated understanding; no questions/concerns verbalized. Electronic Signatures: Carolyn Solorzano ([facility]) (Signed 13-Apr-2023 16:32) Authored: ED Notes, HPI, PMH, ROS, PE, Results/Vital Signs, MDM/ED Course, Clinical Impression, Attestation, Chart Review, Scores Blanca Mitchell ([facility] [facility] [employer]) (Signature Pending) Authored: PE, Attestation Last Updated: 16-Apr-2023 14:13 by Blanca Mitchell ([facility]) [facility] URINE CULTURE,BACTERIALon URINE CULTURE,BACTERIAL PATIENT: ROSITA KENNEDY LOCATION: [facility] BILL#: [id number] : [birth year] AGE: SEX: F ORDERED BY: [...] DOSE DEPENDENT NS=NONSUSCEPTIBLE X=REPORTED IN ERROR Normal [facility] Comment on above: Performed By: #### U [facility] #### [facility] [address] [place] [address] [facility] 04-05-2023 [facility] Telephone (DEB) ROSITA KENNEDY ([id number]) 1945 F Date Time Provider Department 04/05/23 [...] once daily. - L GASSERI/B BIFIDUM/B LONGUM ([facility] [employer] [facility] ORAL) Take by mouth. - CHOLECALCIFEROL, [...] right *02/15/2019 Prim (more content not included)... [facility] 03-29-2023 [facility] Telephone (GYNML) ROSITA KENNEDY ([id number]) 1945 F Date Time Provider Department 03/29/23 HENRY DONOVAN GYNML During your visit today, we recorded the following information about you: Henry Donovan, RN 03/29/2023 1:21 PM Signed Patients son, Rivera called. Had telephone visit with Dr Perez on 03-26-23. They have not decided on proceeding with treatments options Dr Perez reviewed with them. Requesting a second opinion to a [facility] CAKE WRINGER/ONC [place]. Message sent to health careers instructor in [place], she will speak with Dr Roberts then call Rivera back with appointment. He is also requesting a consult to [facility] in [place]. Will discuss with team Allergies As of Date: 03/29/2023 Noted Allergy Reaction CODEINE 02/24/2001 Comments: hives CONTRAST DYE (IODINE) 03/24/2023 6 - Diarrhea Comments: Diarrhea after oral contrast. ERYTHROMYCIN 08/03/2014 8 - GI Upset METHYLPREDNISOLONE 08/03/2014 4 - Hives Comments: IV SULFA (SULFONAMIDE ANTIBIOTICS) 02/24/2001 Comments: hives Date Reviewed: 03/24/2023 Reviewed by: Racheal Saldana APRN.TUFTING MACHINE FIXER - Fully Assessed Reason for Visit: Care Coordination [9810] Cmt: POC Prescriptions as of 03/29/2023 - [...] once daily. - L GASSERI/B BIFIDUM/B LONGUM ([employer] [facility] ORAL) Take by mouth. - CHOLECALCIFEROL, VITAMIN [...] Central retinal vein (more content not included)... [facility] HNO ID: [id number] Author: Racheal Saldana APRN.TUFTING MACHINE FIXER Service: Gynecology Oncology Author Type: Nurse Practitioner Type: Discharge Summary Filed: 03/24/2023 1:05 PM Note Text: Attestation signed by Joseluis Perez MD at 03/25/2023 1:42 PM Discussed with the TUFTING MACHINE FIXER and agree with TUFTING MACHINE FIXER's findings and plan as documented in the TUFTING MACHINE FIXER's note. Joseluis Perez MD DISCHARGE NOTE (Patient [...] by mouth three times daily as needed. [facility] * sertraline 25 mg [...] March 24, 2023 TIME: 12:59 PM Normal [facility] HISTORY PHYSICALon HISTORY PHYSICAL HNO ID: [id number] Author: Racheal Saldana APRN.TUFTING MACHINE FIXER Service: Gynecology Oncology Author Type: Nurse Practitioner [...] mouth once daily. L GASSERI/B BIFIDUM/B LONGUM ([employer] [facility] ORAL) Take by mouth. CHOLECALCIFEROL, VITAMIN [...] or palpitations (more content not included)... Normal [facility] NURSING PROGon 03-24-2023 NURSING PROG HNO ID: [id number] Author: Francie Green RN Service: ? Author Type: Registered Nurse Type: Nursing Progress Note Filed: 03/24/2023 2:25 AM Note Text: Other: 0129 - pt co new onset throat tightness, VS stable, no co SOB, chest pain/tightness, no wheezing, no issues swallowing, page sent to security operations analyst fitness club manager/oc. Selina Grullon MD called to floor and said to give the PRN epinephrine that is ordered and placed new orders for PO benadryl to be given as well. No further orders at this time. [facility] NURSING PROGon 03-23-2023 NURSING PROG HNO ID: [id number] Author: Beth Collazo, RN Service: Nursing Author [...] once infusion was stopped. Call placed to CAKE WRINGER/Onc fellow on-call to report, return call received from Dr. Grullon. Message also left on voicemail to the chemo reaction line. [facility] NURSING PROG HNO ID: [id number] Author: Beth Collazo, MONTSE Service: Nursing Author Type: Registered Nurse Type: Nursing Progress Note Filed: 03/23/2023 5:35 PM Note Text: Transfer Note: PATIENT NAME: Rosita Kennedy Patient Location: [place] [address] [address] Room: [place] [address] [facility] approx 1700 in stable condition. Actions taken: No further actions taken at this time. Will continue to monitor and check with patient. Patient belongings with patient. [facility] 03-22-2023 CNPN Telephone (GYNML) KENNEDYROSITA ([id number]) 1945 F Date Time Provider Department 03/22/23 [...] RN - Fully Assessed Reason for Visit: Bit Grinder - Other [3602] Cmt: ROP rescheduled for [...] once daily. - L GASSERI/B BIFIDUM/B LONGUM ([facility] [employer] HE[facility] ORAL) Take by mouth. - CHOLECALCIFEROL, [...] proteinuria [Z13. (more content not included)... Normal [facility] CBC W Auto Differential pane l (Bld)on 03-19-2023 Basophils (Bld) [#/Vol] 0.05 10*3/uL Normal <0.11 [facility] Comment on above: Order Comment: Speci men Type: BLOOD SPECIMENOrdering Facility: [facility] Address: [address] [place] [address] Performed By: #### 5 7021-8 ####[facility] LABCLIA [id number] [place] [address] [place] Basophils/100 WBC (Bld) 0.5 % Normal C [facility] Comment on above: Order Comment: Speci men Type: BLOOD SPECIMENOrdering Facility: [facility] Address: [address] [place] [address] Performed By: #### 5 7021-8 ####[facility] LABCLIA [id number] [place] [address] [place] Differential cell count method Nom (Bld) Auto Normal [facility] Comment on above: Order Comment: Speci men Type: BLOOD SPECIMENOrdering Facility: [facility] Address: [address] [place] [address] Performed By: #### 5 7021-8 ####[facility] LABCLIA [id number] [place] [address] [place] Eosinophils (Bld) [#/Vol] 0.31 10*3/uL Normal <0.46 [facility] Comment on above: Order Comment: Speci men Type: BLOOD SPECIMENOrdering Facility: [facility] Address: [address] [place] [address] Performed By: #### 5 7021-8 ####[facility] LABCLIA [id number] [place] [address] [place] Eosinophils/100 WBC (Bld) 2.9 % Normal [facility] Comment on above: Order Comment: Speci men Type: BLOOD SPECIMENOrdering Facility: [facility] Address: [address] [place] [address] Performed By: #### 5 7021-8 ####[facility] LABCLIA [id number] [place] [address] [place] Erythrocyte distribution width (RBC) [Ratio] 16.6 % High 11.5-15.0 [facility] Comment on above: Order Comment: Speci men Type: BLOOD SPECIMENOrdering Facility: [facility] Address: [address] [place], [place] [address] Performed By: #### 5 7021-8 ####[facility] LABCLIA [id number] [place] [address] [place] Hematocrit (Bld) [Volume fraction] 38.8 % Normal 36.0-46.0 [facility] Comment on above: Order Comment: Speci men Type: BLOOD SPECIMENOrdering Facility: [facility] Address: [address] [place] [address] Performed By: #### 5 7021-8 ####[facility] LABCLIA [id number] [place] [address] [place] Hemoglobin (Bld) [Mass/Vol] 11.7 g/dL Normal 11.5-15.5 [facility] Comment on above: Order Comment: Speci men Type: BLOOD SPECIMENOrdering Facility: [facility] Address: [address] Performed By: #### 5 7021-8 ####[facility] LABIA [id number] [place] [address] [place] Immature granulocytes (Bld) [#/Vol] 0.14 10*3/uL High <0.10 [facility] Comment on above: Order Comment: Speci men Type: BLOOD SPECIMENOrdering Facility: [facility] Address: [address] Performed By: #### 5 7021-8 ####[facility] LABIA [id number] [place] [address] [place] Immature granulocytes/100 WBC (Bld) 1.3 % Normal [facility] Comment on above: Order Comment: Speci men Type: BLOOD SPECIMENOrdering Facility: [facility] Address: [address] Performed By: #### 5 7021-8 ####[facility] LABIA [id number] [place] [address] [place] Lymphocytes (Bld) [#/Vol] 2.00 10*3/uL Normal 1.00-4.00 [facility] Comment on above: Order Comment: Speci men Type: BLOOD SPECIMENOrdering Facility: [facility] Address: [address] Performed By: #### 5 7021-8 ####[facility] LABIA [id number] [place] [address] [place] Lymphocytes/100 WBC (Bld) 18.7 % Normal [facility] Comment on above: Order Comment: Speci men Type: BLOOD SPECIMENOrdering Facility: [facility] Address: [address] [place] [address] Performed By: #### 5 7021-8 ####[facility] [id number] [place] [address] [place] MCH (RBC) [Entitic mass] 25.3 pg Low 26.0-34.0 [facility] Comment on above: Order Comment: Speci men Type: BLOOD SPECIMENOrdering Facility: [facility] Address: [address] [place] [address] Performed By: #### 5 7021-8 ####[facility] [id number] [address] [place] MCHC (RBC) [Mass/Vol] 30.2 g/dL Low 30.5-36.0 [facility] Comment on above: Order Comment: Speci men Type: BLOOD SPECIMENOrdering Facility: [facility] Address: [address] [place] [address] Performed By: #### 5 7021-8 ####[facility] [id number] [place] [address] [place] MCV (RBC) [Entitic vol] 84.0 fL Normal 80.0-100.0 C [facility] Comment on above: Order Comment: Speci men Type: BLOOD SPECIMENOrdering Facility: [facility] Address: [address] [place] [address] Performed By: #### 5 7021-8 ####[facility] [id number] [place] [address] [place] Monocytes (Bld) [#/Vol] 1.03 10*3/uL High <0.87 [facility] Comment on above: Order Comment: Speci men Type: BLOOD SPECIMENOrdering Facility: [facility] Address: [address] Performed By: #### 5 7021-8 ####[facility] LABCLIA [id number] [place] [address] [place] Monocytes/100 WBC (Bld) 9.6 % Normal [facility] Comment on above: Order Comment: Speci men Type: BLOOD SPECIMENOrdering Facility: [facility] Address: [address] Performed By: #### 5 7021-8 ####[facility] LABCLIA [id number] [place] [address] [place] Neutrophils (Bld) [#/Vol] 7.15 10*3/uL Normal 1.45-7.50 [facility] Comment on above: Order Comment: Speci men Type: BLOOD SPECIMENOrdering Facility: [facility] Address: [address] [place], [place] [address] Performed By: #### 5 7021-8 ####[facility] LABCLIA [id number] [address] [place] Neutrophils/100 WBC (Bld) 67.0 % Normal [facility] Comment on above: Order Comment: Speci men Type: BLOOD SPECIMENOrdering Facility: [facility] Address: [address] [place] [address] Performed By: #### 5 7021-8 ####[facility] LABIA [id number] [place] [address] [place] Nucleated RBC (Bld) [#/Vol] 10*3/uL Normal <0.01 [facility] Comment on above: Order Comment: Speci men Type: BLOOD SPECIMENOrdering Facility: [facility] Address: [address] [place], [place] [address] Performed By: #### 5 7021-8 ####[facility] LABIA [id number] [place] [address] [place] Nucleated RBC/100 WBC (Bld) [Ratio] 0.0 /100 WBC Normal [facility] Comment on above: Order Comment: Speci men Type: BLOOD SPECIMENOrdering Facility: [facility] Address: [address] Performed By: #### 5 7021-8 ####[facility] LABIA [id number] [place] [address] [place] Platelet mean volume (Bld) [Entitic vol] 10.8 fL Normal 9.0-12.7 [facility] Comment on above: Order Comment: Speci men Type: BLOOD SPECIMENOrdering Facility: [facility] Address: [address] [place], [place] [address] Performed By: #### 5 7021-8 ####[facility] LABIA [id number] [place] [address] [place] Platelets (Bld) [#/Vol] 350 10*3/uL Normal 150-400 [facility] Comment on above: Order Comment: Speci men Type: BLOOD SPECIMENOrdering Facility: [facility] Address: [address] [place] [address] Performed By: #### 5 7021-8 ####[facility] LABIA [id number] [place] [address] [place] RBC (Bld) [#/Vol] 4.62 10*6/uL Normal 3.90-5.20 [facility] Comment on above: Order Comment: Speci men Type: BLOOD SPECIMENOrdering Facility: [facility] Address: [address] Performed By: #### 5 7021-8 ####[facility] LABCLIA [id number] [place] [address] [place] WBC (Bld) [#/Vol] 10.68 10*3/uL Normal 3.70-11.00 [facility] Comment on above: Order Comment: Speci men Type: BLOOD SPECIMENOrdering Facility: [facility] Address: [address] [place] [address] Performed By: #### 5 7021-8 ####[facility] LABCLIA [id number] [place] [id number] [facility] CNPNon 03-19-2023 CNPN Telephone (GYNML) ROSITA KENNEDY ([id number]) 1945 F Date Time Provider Department 03/19/23 [...] RN - Fully Assessed Reason for Visit: Bit Grinder - Other [3602] Cmt: Discuss plan of [...] once daily. - L GASSERI/B BIFIDUM/B LONGUM ([facility]) Take by mouth. - [...] [Z13.89] 05/31 (more content not included)... Normal [facility] CNPN Telephone (HEMAWS) ROSITA KENNEDY ([id number]) 1945 F Date Time Provider Department 03/19/23 DOMO FRAZIER During your visit today, we recorded the following information about you: Usha Grant LPN 03/19/2023 11:48 AM Signed [facility] calling to add this pt to lab port schedule. Please add on at 2:00 today. [facility] staff to notify pt. Mahsa Wakefield LPN [...] once daily. - L GASSERI/B BIFIDUM/B LONGUM ([facility] ORAL) Take by mouth. - [...] right *06 (more content not included)... Normal [facility] Comprehensive metabolic 2000 panelon 03-19-2023 Albumin [Mass/Vol] 4.3 g/dL Normal 3.9-4.9 [facility] Comment on above: Order Comment: Speci men Type: BLOOD SPECIMENOrdering Facility: [facility] Address: [address] [place], [place] [id number] Performed By: #### 2 8, ####[facility] LABCLIA [id number] [place] [address] [place] ALP [Catalytic activity/Vol] 107 U/L Normal 34-123 [facility] Comment on above: Order Comment: Speci men Type: BLOOD SPECIMENOrdering Facility: [facility] Address: [address] [place] [address] Performed By: #### 2 4323-03, ####[facility] LABCLIA [id number] [place] [address] [place] ALT [Catalytic activity/Vol] 15 U/L Normal 7-38 [facility] Comment on above: Order Comment: Speci men Type: BLOOD SPECIMENOrdering Facility: [facility] Address: [address] [place], [place] [id number] Performed By: #### 2 4323-03, ####[facility] LABCLIA [id number] [place] [address] [place] Anion gap [Moles/Vol] 13 mmol/L Normal 9-18 [facility] Comment on above: Order Comment: Speci men Type: BLOOD SPECIMENOrdering Facility: [facility] Address: [address] [place], [place] [id number] Performed By: #### 2 8, ####[facility] LABCLIA [id number] [place] [address] [place] AST [Catalytic activity/Vol] 23 U/L Normal 13-35 [facility] Comment on above: Order Comment: Speci men Type: BLOOD SPECIMENOrdering Facility: [facility] Address: [address] [place], [place] [id number] Performed By: #### 2 8, ####[facility] LABCLIA [id number] [place] [address] [place] Bilirubin [Mass/Vol] 0.3 mg/dL Normal 0.2-1.3 [facility] Comment on above: Order Comment: Speci men Type: BLOOD SPECIMENOrdering Facility: [facility] Address: [address] [place], [place] [id number] Performed By: #### 2 8, ####[facility] LABCLIA [id number] [place] [address] [place] Calcium [Mass/Vol] 10.1 mg/dL Normal 8.5-10.2 [facility] Comment on above: Order Comment: Speci men Type: BLOOD SPECIMENOrdering Facility: [facility] Address: [address] [place], [place] [id number] Performed By: #### 2 4323-03, ####[facility] LABCLIA [id number] [place] [address] [place] Chloride [Moles/Vol] 102 mmol/L Normal 97-105 [facility] Comment on above: Order Comment: Speci men Type: BLOOD SPECIMENOrdering Facility: [facility] Address: [address] [place], [place] [id number] Performed By: #### 2 8, ####[facility] LABCLIA [id number] [place] [address] [place] CO2 [Moles/Vol] 24 mmol/L Normal 22-30 [facility] Comment on above: Order Comment: Speci men Type: BLOOD SPECIMENOrdering Facility: [facility] Address: [address] [id number] Performed By: #### 2 4323-8, ####[facility] LABIA [id number] [place] [address] [place] Creatinine [Mass/Vol] 0.98 mg/dL High 0.58-0.96 [facility] Comment on above: Order Comment: Speci men Type: BLOOD SPECIMENOrdering Facility: [facility] Address: [address] [address] Performed By: #### 2 4323-8, ####[facility] [id number] [place] [address] [place] ESTIMATED GLOMERULAR FILTRATION RATE 60 mL/min/1.73m??? Normal >=60 [facility] Comment on above: Order Comment: Speci men Type: BLOOD SPECIMENOrdering Facility: [facility] Address: [address] [address] Result Comment: Jefry mated Glomerular Filtration Rate [...] actual GFR. Performed By: #### 2 4323-8, ####[facility] LABIA [id number] [place] [address] [place] Glucose [Mass/Vol] 90 mg/dL Normal 74-99 [facility] Comment on above: Order Comment: Speci men Type: BLOOD SPECIMENOrdering Facility: [facility] Address: [address] [address] Result Comment: The [place] Diabetes Association (ADA) provides guidance for cutoff [...] Standards of Medical Care in Diabetes 2016, [place] [employer]. Diabetes Care. 2016.39(Suppl 1). Performed By: #### 2 4323-03, ####[facility]CLIA [id number] [facility] [place] [address] [place] Potassium [Moles/Vol] 4.5 mmol/L Normal 3.7-5.1 [facility] Comment on above: Order Comment: Speci men Type: BLOOD SPECIMENOrdering Facility: [facility] Address: [address] [place] [address] Performed By: #### 2 4323-03, ####[facility] LABCLIA [id number] [place] [address] [place] Protein [Mass/Vol] 6.9 g/dL Normal 6.3-8.0 [facility] Comment on above: Order Comment: Speci men Type: BLOOD SPECIMENOrdering Facility: [facility] Address: [address] Performed By: #### 2 4323-03, ####[facility]CLIA [id number] [facility] [place] [address] [place] Sodium [Moles/Vol] 139 mmol/L Normal 136-144 [facility] Comment on above: Order Comment: Speci men Type: BLOOD SPECIMENOrdering Facility: [facility] Address: [address] Performed By: #### 2 43211-04, ####[facility] LABCLIA [id number] [address] [place] Urea nitrogen [Mass/Vol] 28 mg/dL High 03-19 [facility] Comment on above: Order Comment: Speci men Type: BLOOD SPECIMENOrdering Facility: [facility] Address: [address] [place] [address] Performed By: #### 2 4323-8, 06500-4 ####[facility] LABCLIA [id number] [address] [place] Magnesium SerPl-mCncon 03-19 Magnesium [Mass/Vol] 2.1 mg/dL Normal 1.7-2.3 [facility] Comment on above: Order Comment: Roc tan Type: BLOOD SPECIMENOrdering Facility: [facility] Address: [address] [place] [address] Performed By: #### 2 4323-8, 29662-6 ####[facility] LABCLIA [id number] [address] [place] CNPNon 03-16-2023 CNPN Telephone (GYNML) ROSITA KENNEDY ([id number]) 1945 F Date Time Provider Department 03/16/23 [...] once daily. - L GASSERI/B BIFIDUM/B LONGUM ([facility]) Take by mouth. - [...] retinal vein (more content not included)... Normal [facility] Absolute lymphocyte countOrd ered By: Carlos Enrique Peguero on 03-12-2023 Lymphocytes Auto (Unsp spec) [#/Vol] 1.07 10*3/uL 0.83-4.51 Basophil percentageOrdered B y: Carlos Enrique Peguero on 03-12-2023 Basophil percentage Not Reportable [facility] Chloride [Moles/Vol] 107 mmol/L 98-107 [facility] Glucose [Mass/Vol] 120 mg/dL 74-106 [facility] Comment on above: Fasting Glucose resu lt from 100 to 125 mg/dL suggests IMPAIRED HOMEOSTASIS per A.D.A. criteria. Neutrophils (Bld) [#/Vol] 12.2 10*3/uL 2.0-7.7 Potassium [Moles/Vol] 3.7 mmol/L 3.5-5.1 [facility] Sodium [Moles/Vol] 140 mmol/L 136-145 [facility] WBC (Bld) [#/Vol] 13.4 10*3/uL 4.4-11.0 [facility] Blood band neutrophil count as percentage of total leukocytesOrdered By: Carlos Enrique Peguero on 03-12-2023 Band form neutrophils/100 WBC (Bld) 6 % 0-5 Blood eosinophils/100 leukoc ytesOrdered By: Carlos Enrique Peguero on 03-12-2023 Eosinophils/100 WBC (Bld) 1 % 0-5 Blood erythrocytes count (nu mber/volume)Ordered By: Carlos Enrique Peguero on 03-12-2023 RBC (Bld) [#/Vol] 4.43 10*6/uL 4.2-5.4 [facility] Blood hemoglobin measurement (mass/volume)Ordered By: Carlos Enrique Peguero on 03-12-2023 Hemoglobin (Bld) [Mass/Vol] 11.1 g/dL 12.0-15.0 Blood lymphocytes/100 leukoc ytesOrdered By: Carlos Enrique Peguero on 03-12-2023 Lymphocytes/100 WBC (Bld) 8 % 19-41 Blood platelet adequacy dete ction by light microscopyOrdered By: Carlos Enrique Peguero on 03-12-2023 Platelets LM Ql (Bld) ADEQUATE ADEQ [facility] Blood platelet mean volumeOr dered By: Carlos Enrique Peguero on 03-12-2023 Platelet mean volume (Bld) [Entitic vol] 9.5 fL 6.2-12.0 Blood segmented neutrophils/ 100 leukocytesOrdered By: Carlos Enrique Peguero on 03-12-2023 Segmented neutrophils/100 WBC (Bld) 85 % 47-70 CBC W Auto Differential pane l (Bld)on 03-12-2023 Basophils (Bld) [#/Vol] 0.04 10*3/uL <0.11 k/uL [facility] Basophils/100 WBC (Bld) 0.5 % [facility] Differential cell count method Nom (Bld) Auto [facility] Eosinophils (Bld) [#/Vol] 0.33 10*3/uL <0.46 k/uL [facility] Eosinophils/100 WBC (Bld) 4.1 % [facility] Erythrocyte distribution width (RBC) [Ratio] 16.7 % High 11.5 - 15.0 % [facility] Hematocrit (Bld) [Volume fraction] 38.7 % 36.0 - 46.0 % [facility] Hemoglobin (Bld) [Mass/Vol] 11.9 g/dL 11.5 - 15.5 g/dL [facility] Immature granulocytes (Bld) [#/Vol] 0.04 10*3/uL <0.10 k/uL [facility] Immature granulocytes/100 WBC (Bld) 0.5 % [facility] Lymphocytes (Bld) [#/Vol] 1.92 10*3/uL 1.00 - 4.00 k/uL [facility] Lymphocytes/100 WBC (Bld) 24.0 % [facility] MCH (RBC) [Entitic mass] 25.4 pg Low 26.0 - 34.[address] [facility] MCHC (RBC) [Mass/Vol] 30.7 g/dL 30.5 - 36.0 g/dL [facility] MCV (RBC) [Entitic vol] 82.5 fL 80.0 - 100.[address] [facility] Monocytes (Bld) [#/Vol] 0.70 10*3/uL <0.87 k/uL [facility] Monocytes/100 WBC (Bld) 8.7 % C [facility] Neutrophils (Bld) [#/Vol] 4.98 10*3/uL 1.45 - 7.50 k/uL [facility] Neutrophils/100 WBC (Bld) 62.2 % [facility] Nucleated RBC (Bld) [#/Vol] <0.01 k/uL [facility] Nucleated RBC/100 WBC (Bld) [Ratio] 0.0 /[address] [facility] Platelet mean volume (Bld) [Entitic vol] 9.5 fL 9.0 - 12.[address] [facility] Platelets (Bld) [#/Vol] 342 10*3/uL 150 - 400 k /uL [facility] RBC (Bld) [#/Vol] 4.69 10*6/uL 3.90 - 5.2 0 m/uL [facility] WBC (Bld) [#/Vol] 8.01 10*3/uL 3.70 - 11. 00 k/uL [facility] Basophils (Bld) [#/Vol] 0.04 10*3/uL Normal <0.11 [facility] Comment on above: Order Comment: Speci men Type: BLOOD SPECIMENOrdering Facility: [facility] Address: [address] [place] [phone] Performed By: #### 5 7021-8 ####[facility] CRYSTAL HOLMAN [id number] [place] [address] [place] Basophils/100 WBC (Bld) 0.5 % Normal C [facility] Comment on above: Order Comment: Speci men Type: BLOOD SPECIMENOrdering Facility: [facility] Address: [address] [place] [address] Performed By: #### 5 7021-8 ####[facility] [id number] [place] [address] [place] Differential cell count method Nom (Bld) Auto Normal [facility] Comment on above: Order Comment: Speci men Type: BLOOD SPECIMENOrdering Facility: [facility] Address: [address] [place] [address] Performed By: #### 5 7021-8 ####[facility] [id number] [place] [address] [place] Eosinophils (Bld) [#/Vol] 0.33 10*3/uL Normal <0.46 [facility] Comment on above: Order Comment: Speci men Type: BLOOD SPECIMENOrdering Facility: [facility] Address: [address] [place] [address] Performed By: #### 5 7021-8 ####[facility] [id number] [place] [address] [place] Eosinophils/100 WBC (Bld) 4.1 % Normal [facility] Comment on above: Order Comment: Speci men Type: BLOOD SPECIMENOrdering Facility: [facility] Address: [address] [place] [address] Performed By: #### 5 7021-8 ####[facility] [id number] [place] [address] [place] Erythrocyte distribution width (RBC) [Ratio] 16.7 % High 11.5-15.0 [facility] Comment on above: Order Comment: Speci men Type: BLOOD SPECIMENOrdering Facility: [facility] Address: [address] [place] [address] Performed By: #### 5 7021-8 ####[facility] KENIASAURABHBerna [id number] [place] [address] [place] Hematocrit (Bld) [Volume fraction] 38.7 % Normal 36.0-46.0 [facility] Comment on above: Order Comment: Speci men Type: BLOOD SPECIMENOrdering Facility: [facility] Address: [address] [place] [address] Performed By: #### 5 7021-8 ####[facility]ITALJULIO [id number] [place] [address] [place] Hemoglobin (Bld) [Mass/Vol] 11.9 g/dL Normal 11.5-15.5 [facility] Comment on above: Order Comment: Speci men Type: BLOOD SPECIMENOrdering Facility: [facility] Address: [address] [place] [address] Performed By: #### 5 7021-8 ####[facility]ITALJ[facility] [id number] [place] [address] [place] Immature granulocytes (Bld) [#/Vol] 0.04 10*3/uL Normal <0.10 [facility] Comment on above: Order Comment: Speci men Type: BLOOD SPECIMENOrdering Facility: [facility] Address: [address] [place], [place] [id number] Performed By: #### 5 7021-8 ####[facility]ITALNCLIA [id number] [place] [address] [place] Immature granulocytes/100 WBC (Bld) 0.5 % Normal [facility] Comment on above: Order Comment: Speci men Type: BLOOD SPECIMENOrdering Facility: [facility] Address: [address] [place] [address] Performed By: #### 5 7021-8 ####[facility]ITALNCLIA [id number] [place] [address] [place] Lymphocytes (Bld) [#/Vol] 1.92 10*3/uL Normal 1.00-4.00 [facility] Comment on above: Order Comment: Speci men Type: BLOOD SPECIMENOrdering Facility: [facility] Address: [address] [place] [address] Performed By: #### 5 7021-8 ####[facility]ITALNCTOOELE [facility] [id number] [place] [address] [place] Lymphocytes/100 WBC (Bld) 24.0 % Normal [facility] Comment on above: Order Comment: Speci men Type: BLOOD SPECIMENOrdering Facility: [facility] Address: [address] [place] [address] Performed By: #### 5 7021-8 ####[facility] H[facility]ITALNCLI [id number] [place] [address] [place] MCH (RBC) [Entitic mass] 25.4 pg Low 26.0-34.0 [facility] Comment on above: Order Comment: Speci men Type: BLOOD SPECIMENOrdering Facility: [facility] Address: [address] [place] [address] Performed By: #### 5 7021-8 ####[facility]ITALNCLIA [id number] [place] [address] [place] MCHC (RBC) [Mass/Vol] 30.7 g/dL Normal 30.5-36.0 [facility] Comment on above: Order Comment: Speci men Type: BLOOD SPECIMENOrdering Facility: [facility] Address: [address] [place] [address] Performed By: #### 5 7021-8 ####[facility]ITALNCLI [id number] [place] [address] [place] MCV (RBC) [Entitic vol] 82.5 fL Normal 80.0-100.0 C [facility] Comment on above: Order Comment: Speci men Type: BLOOD SPECIMENOrdering Facility: [facility] Address: [address] [place] [address] Performed By: #### 5 7021-8 ####[facility] [id number] [place] [address] [place] Monocytes (Bld) [#/Vol] 0.70 10*3/uL Normal <0.87 [facility] Comment on above: Order Comment: Speci men Type: BLOOD SPECIMENOrdering Facility: [facility] Address: [address] [place] [address] Performed By: #### 5 7021-8 ####[facility] [id number] [place] [address] [place] Monocytes/100 WBC (Bld) 8.7 % Normal C [facility] Comment on above: Order Comment: Speci men Type: BLOOD SPECIMENOrdering Facility: [facility] Address: [address] [place] [address] Performed By: #### 5 7021-8 ####[facility] [id number] [place] [address] [place] Neutrophils (Bld) [#/Vol] 4.98 10*3/uL Normal 1.45-7.50 [facility] Comment on above: Order Comment: Speci men Type: BLOOD SPECIMENOrdering Facility: [facility] Address: [address] [place] [address] Performed By: #### 5 7021-8 ####[facility]ENTERLI [id number] [place] [address] [place] Neutrophils/100 WBC (Bld) 62.2 % Normal [facility] Comment on above: Order Comment: Speci men Type: BLOOD SPECIMENOrdering Facility: [facility] Address: [address] [place] [address] Performed By: #### 5 7021-8 ####[facility] [id number] [place] [address] [place] Nucleated RBC (Bld) [#/Vol] 10*3/uL Normal <0.01 [facility] Comment on above: Order Comment: Speci men Type: BLOOD SPECIMENOrdering Facility: [facility] Address: [address] [place] [address] Performed By: #### 5 7021-8 ####[facility]ITALNCTOOELE [facility] [id number] [place] [address] [place] Nucleated RBC/100 WBC (Bld) [Ratio] 0.0 /100 WBC Normal [facility] Comment on above: Order Comment: Speci men Type: BLOOD SPECIMENOrdering Facility: [facility] Address: [address] [place] [address] Performed By: #### 5 7021-8 ####[facility]ITALNCTOOELE [facility] [id number] [place] [address] [place] Platelet mean volume (Bld) [Entitic vol] 9.5 fL Normal 9.0-12.7 [facility] Comment on above: Order Comment: Speci men Type: BLOOD SPECIMENOrdering Facility: [facility] Address: [address] [place] [address] Performed By: #### 5 7021-8 ####[facility] [id number] [place] [address] [place] Platelets (Bld) [#/Vol] 342 10*3/uL Normal 150-400 [facility] Comment on above: Order Comment: Speci men Type: BLOOD SPECIMENOrdering Facility: [facility] Address: [address] Performed By: #### 5 7021-8 ####[facility] CRYSTAL KENIANCLIA [id number] [place] [address] [place] RBC (Bld) [#/Vol] 4.69 10*6/uL Normal 3.90-5.20 [facility] Comment on above: Order Comment: Speci men Type: BLOOD SPECIMENOrdering Facility: [facility] Address: [address] [address] Performed By: #### 5 7021-8 ####[facility] MARGOCLOVISNCLIA [id number] [place] [address] [place] WBC (Bld) [#/Vol] 8.01 10*3/uL Normal 3.70-11.00 [facility] Comment on above: Order Comment: Speci men Type: BLOOD SPECIMENOrdering Facility: [facility] Address: [address] [place] [address] Performed By: #### 5 7021-8 ####[facility] HOSPITALNCROSEA [id number] [address] [place] CNPLeilani 03-12-2023 [facility] ([facility]) ROSITA KENNEDY ([id number]) 1945 F Date Time Provider Department 03/12/23 [...] 100mg of solucortef. Pt was transferred to [facility] through squad due to continuing chest tightness. Please keep us updated about the plan of care for this pt. Thank you, Garcia Donovan RN 03/12/2023 3:38 PM Signed Spoke with Garcia at [place] infusion suite. 10ml DOXIL infused when patient became flushed/ BP elevated 170/110 and chest tightness. BP returned to normal but chest tightness persisted. Patient was transferred via squad to [facility] . Will call Rivera, patients son. Dr [...] once daily. - L GASSERI/B BIFIDUM/B LONGUM ([facility]) Take by mouth. - [...] T45.1X5A]12/03/2016 Clinic (more content not included)... Normal [facility] Determination of erythrocyte mean corpuscular volume (MCV)Ordered By: Carlos Enrique Peguero on 03-12-2023 MCV (RBC) [Entitic vol] 84.0 fL 81-99 [facility] Hematocrit Auto (Bld) [Volum e fraction]Ordered By: Carlos Enrique Peguero on 03-12-2023 Hematocrit (Bld) [Volume fraction] 37.2 % 37-47 Laboratory - Chemistry and C hemistry - challengeOrdered By: Carlos Enrique Peguero on 03-12-2023 CO2 [Moles/Vol] 28.0 mmol/L 21.0-32.0 Urea nitrogen/Creatinine [Mass ratio] 21.9 mg/mg 10-20 Laboratory - Hematology and Cell countsOrdered By: Carlos Enrique Peguero on 03-12-2023 Erythrocyte distribution width (RBC) [Entitic vol] 51.0 fL 35.1-43.9 Erythrocyte distribution width (RBC) [Ratio] 16.6 % 11.6-14.6 MCH (RBC) [Entitic mass] 25.1 pg 27.0-32.0 MCHC Auto (RBC) [Mass/Vol]Or dered By: Carlos Enrique Peguero on 03-12-2023 MCHC (RBC) [Mass/Vol] 29.8 g/dL 32-36 [facility] No Panel InformationOrdered By: Carlos Enrique Peguero on 03-12-2023 Estimated Creatinine Clearance Calc 36.37 ml/min Estimated GFR (MDRD) Amer 73 mL/min >60 Comment on above: GFR Calc Estimated GFR (MDRD) Non-Af Amer 60 mL/min >60 Comment on above: Non- GFR Calc Troponin I High Sensitivity 8 pg/mL 3.0-54.0 Comment on above: Please Note: [place] t Units and Gender Specific Reference Ranges. For more information see Policy Stat Procedure [place] High Sensitivity Troponin (TNIH) and attachments. Platelets bldOrdered By: Jose Peguero on 03-12-2023 Platelets (Bld) [#/Vol] 283 10*3/uL 150-450 RBC morphologyOrdered By: Arnulfo Kenny on 03-12-2023 RBC morphology finding Nom (Bld) NORM C+C NORMAL NORM C&C Review by pathologistOrdered By: Carlos Enrique Peguero on 03-12-2023 Pathologist review Tito (Unsp spec) [Interp] Tiffanie lira Pathologist review Tito (Unsp spec) [Interp] Reviewed Comment on above: Previous reported re sult: Tiffanie lira Edited by: RGOOD on 03/16/23:1214Neutrophilic leukocytosis with left shift. Clinical correlation necessary.Joe Harmon M.D. 03/16/23 AMENDED REPORT 03/16/23 1214 PATH REV previously reported as: Tiffanie lira Serum or plasma calcium felipe urement (mass/volume)Ordered By: Carlos Enrique Peguero on 03-12-2023 Calcium [Mass/Vol] 8.7 mg/dL 8.5-10.1 [facility] Serum or plasma creatinine m easurement [...] 03-12-2023 Urea nitrogen [Mass/Vol] 21 mg/dL 03-16 Thin prep Papanicolaou smear with manual screeningOrdered By: Carlos Enrique Peguero on 03-12-2023 Thin prep Papanicolaou smear with manual screening 01-11 Total cell countOrdered By: Carlos Enrique Peguero on 03-12-2023 Cells counted Molgen (Bld/Tiss) [#] 100 MANUAL DIFF CBC W Auto Differential pane l (Bld)on 03-04-2023 Basophils (Bld) [#/Vol] 0.06 10*3/uL Normal <0.11 [facility] Comment on above: Order Comment: Speci men Type: BLOOD SPECIMENOrdering Facility: [facility] Address: [address] [place] [address] Performed By: #### [id number] [id number] ####[facility] [id number] [place] [address] [place] Basophils/100 WBC (Bld) 0.8 % Normal C [facility] Comment on above: Order Comment: Speci men Type: BLOOD SPECIMENOrdering Facility: [facility] Address: [address] [place] [address] Performed By: #### 5 7021-8 ####[facility] CENTERLIA [id number] [place] [address] [place] Differential cell count method Nom (Bld) Auto Normal [facility] Comment on above: Order Comment: Speci men Type: BLOOD SPECIMENOrdering Facility: [facility] Address: [address] [place] [address] Performed By: #### 5 7021-8 ####[facility] CENTERLIA [id number] [place] [address] [place] Eosinophils (Bld) [#/Vol] 0.30 10*3/uL Normal <0.46 [facility] Comment on above: Order Comment: Speci men Type: BLOOD SPECIMENOrdering Facility: [facility] Address: [address] [place] [address] Performed By: #### 5 7021-8 ####[facility]ENTERWOHLIA [id number] [place] [address] [place] Eosinophils/100 WBC (Bld) 3.8 % Normal [facility] Comment on above: Order Comment: Speci men Type: BLOOD SPECIMENOrdering Facility: [facility] Address: [address] [place] [address] Performed By: #### 5 7021-8 ####[facility] [id number] [place] [address] [place] Erythrocyte distribution width (RBC) [Ratio] 16.8 % High 11.5-15.0 [facility] Comment on above: Order Comment: Speci men Type: BLOOD SPECIMENOrdering Facility: [facility] Address: [address] [place] [address] Performed By: #### 5 7021-8 ####[facility] [id number] [place] [address] [place] Hematocrit (Bld) [Volume fraction] 37.5 % Normal 36.0-46.0 [facility] Comment on above: Order Comment: Speci men Type: BLOOD SPECIMENOrdering Facility: [facility] Address: [address] [place] [address] Performed By: #### 5 7021-8 ####[facility] HOSPITALNCLI [id number] [place] [address] [place] Hemoglobin (Bld) [Mass/Vol] 11.5 g/dL Normal 11.5-15.5 [facility] Comment on above: Order Comment: Speci men Type: BLOOD SPECIMENOrdering Facility: [facility] Address: [address] [place] [address] Performed By: #### 5 7021-8 ####[facility] MARGOROBA [id number] [place] [address] [place] Immature granulocytes (Bld) [#/Vol] 0.03 10*3/uL Normal <0.10 [facility] Comment on above: Order Comment: Speci men Type: BLOOD SPECIMENOrdering Facility: [facility] Address: [address] [place] [address] Performed By: #### 5 7021-8 ####[facility] FLORIDAA [id number] [place] [address] [place] Immature granulocytes/100 WBC (Bld) 0.4 % Normal [facility] Comment on above: Order Comment: Speci men Type: BLOOD SPECIMENOrdering Facility: [facility] Address: [address] [place] [address] Performed By: #### 5 7021-8 ####[facility] FL[facility]IDAA [id number] [place] [address] [place] Lymphocytes (Bld) [#/Vol] 1.38 10*3/uL Normal 1.00-4.00 [facility] Comment on above: Order Comment: Speci men Type: BLOOD SPECIMENOrdering Facility: [facility] Address: [address] [place] [address] Performed By: #### 5 7021-8 ####[facility]ENTERLIA [id number] [place] [address] [place] Lymphocytes/100 WBC (Bld) 17.4 % Normal [facility] Comment on above: Order Comment: Speci men Type: BLOOD SPECIMENOrdering Facility: [facility] Address: [address] [place] [address] Performed By: #### 5 7021-8 ####[facility] HOSPITALNCLIA [id number] [place] [address] [place] MCH (RBC) [Entitic mass] 25.2 pg Low 26.0-34.0 [facility] Comment on above: Order Comment: Speci men Type: BLOOD SPECIMENOrdering Facility: [facility] Address: [address] [place] [address] Performed By: #### 5 7021-8 ####[facility] [id number] [place] [address] [place] MCHC (RBC) [Mass/Vol] 30.7 g/dL Normal 30.5-36.0 [facility] Comment on above: Order Comment: Speci men Type: BLOOD SPECIMENOrdering Facility: [facility] Address: [address] [place] [address] Performed By: #### 5 7021-8 ####[facility] [id number] [place] [address] [place] MCV (RBC) [Entitic vol] 82.2 fL Normal 80.0-100.0 C [facility] Comment on above: Order Comment: Speci men Type: BLOOD SPECIMENOrdering Facility: [facility] Address: [address] [place] [address] Performed By: #### 5 7021-8 ####[facility] [id number] [address] [place] Monocytes (Bld) [#/Vol] 0.67 10*3/uL Normal <0.87 [facility] Comment on above: Order Comment: Speci men Type: BLOOD SPECIMENOrdering Facility: [facility] Address: [address] [place] [address] Performed By: #### 5 7021-8 ####[facility] [id number] [place] [address] [place] Monocytes/100 WBC (Bld) 8.5 % Normal C [facility] Comment on above: Order Comment: Speci men Type: BLOOD SPECIMENOrdering Facility: [facility] Address: [address] [place] [address] Performed By: #### 5 7021-8 ####[facility] HOSPITALJULIO [id number] [place] [address] [place] Neutrophils (Bld) [#/Vol] 5.48 10*3/uL Normal 1.45-7.50 [facility] Comment on above: Order Comment: Speci men Type: BLOOD SPECIMENOrdering Facility: [facility] Address: [address] [place] [address] Performed By: #### 5 7021-8 ####[facility]ITALLYDIABerna [id number] [place] [address] [place] Neutrophils/100 WBC (Bld) 69.1 % Normal [facility] Comment on above: Order Comment: Speci men Type: BLOOD SPECIMENOrdering Facility: [facility] Address: [address] [place] [address] Performed By: #### 5 7021-8 ####[facility] [id number] [place] [address] [place] Nucleated RBC (Bld) [#/Vol] 10*3/uL Normal <0.01 [facility] Comment on above: Order Comment: Speci men Type: BLOOD SPECIMENOrdering Facility: [facility] Address: [address] [place] [address] Performed By: #### 5 7021-8 ####[facility] CENTERLIA [id number] [place] [address] [place] Nucleated RBC/100 WBC (Bld) [Ratio] 0.0 /100 WBC Normal [facility] Comment on above: Order Comment: Speci men Type: BLOOD SPECIMENOrdering Facility: [facility] Address: [address] [place] [address] Performed By: #### 5 7021-8 ####[facility] CRYSTAL AQUINONCGLORIA [id number] [place] [address] [place] Platelet mean volume (Bld) [Entitic vol] 9.3 fL Normal 9.0-12.7 [facility] Comment on above: Order Comment: Speci men Type: BLOOD SPECIMENOrdering Facility: [facility] Address: [address] [place] [address] Performed By: #### 5 7021-8 ####[facility] HOSPITALNCROSEBerna [id number] [place] [address] [place] Platelets (Bld) [#/Vol] 353 10*3/uL Normal 150-400 [facility] Comment on above: Order Comment: Speci men Type: BLOOD SPECIMENOrdering Facility: [facility] Address: [address] [place] [address] Performed By: #### 5 7021-8 ####[facility] HOSPITALNCLIA [id number] [place] [address] [place] RBC (Bld) [#/Vol] 4.56 10*6/uL Normal 3.90-5.20 [facility] Comment on above: Order Comment: Speci men Type: BLOOD SPECIMENOrdering Facility: [facility] Address: [address] [place], [place] [id number] Performed By: #### 5 7021-8 ####[facility] HOSPITALNCLIA [id number] [place] [address] [place] WBC (Bld) [#/Vol] 7.92 10*3/uL Normal 3.70-11.00 [facility] Comment on above: Order Comment: Speci men Type: BLOOD SPECIMENOrdering Facility: [facility] Address: [address] [address] Performed By: #### 5 7021-8 ####[facility] HOSPITALNCGLORIA [id number] [place] [address] [place] Comprehensive metabolic 2000 panelon 03-04-2023 Albumin [Mass/Vol] 4.4 g/dL Normal 3.9-4.9 [facility] Comment on above: Order Comment: Speci men Type: BLOOD SPECIMENOrdering Facility: [facility] Address: [address] [address] Performed By: #### 2 4323-8 ####[facility] HOSPITALNCTOOELE VAL[facility] [id number] [place] [address] [place] ALP [Catalytic activity/Vol] 105 U/L Normal 34-123 [facility] Comment on above: Order Comment: Speci men Type: BLOOD SPECIMENOrdering Facility: [facility] Address: [address] [address] Performed By: #### 2 4323-8 ####[facility] FLORIDAA [id number] [address] [place] ALT [Catalytic activity/Vol] 7 U/L Normal 7-38 [facility] Comment on above: Order Comment: Speci men Type: BLOOD SPECIMENOrdering Facility: [facility] Address: [address] [address] Performed By: #### 2 4323-8 ####[facility] HOSPITALNCLIA [id number] [place] [address] [place] Anion gap [Moles/Vol] 13 mmol/L Normal 9-18 [facility] Comment on above: Order Comment: Speci men Type: BLOOD SPECIMENOrdering Facility: [facility] Address: [address] [address] Performed By: #### 2 4323-8 ####[facility] MILLTOWNCLIA [id number] [place] [address] [place] AST [Catalytic activity/Vol] 17 U/L Normal 13-35 [facility] Comment on above: Order Comment: Speci men Type: BLOOD SPECIMENOrdering Facility: [facility] Address: [address] [place] [address] Performed By: #### 2 4323-8 ####[facility] CENTERWNCLIA [id number] [place] [address] [place] Bilirubin [Mass/Vol] 0.4 mg/dL Normal 0.2-1.3 [facility] Comment on above: Order Comment: Speci men Type: BLOOD SPECIMENOrdering Facility: [facility] Address: [address] [place] [address] Performed By: #### 2 4323-8 ####[facility] HOSPITALNCLIA [id number] [place] [address] [place] Calcium [Mass/Vol] 9.4 mg/dL Normal 8.5-10.2 [facility] Comment on above: Order Comment: Speci men Type: BLOOD SPECIMENOrdering Facility: [facility] Address: [address] [place] [address] Performed By: #### 2 4323-8 ####[facility] CENTERWNCLIA [id number] [place] [address] [place] Chloride [Moles/Vol] 101 mmol/L Normal 97-105 [facility] Comment on above: Order Comment: Speci men Type: BLOOD SPECIMENOrdering Facility: [facility] Address: [address] [place] [address] Performed By: #### 2 4323-8 ####[facility] CENTERWNCLIA [id number] [place] [address] [place] CO2 [Moles/Vol] 24 mmol/L Normal 22-30 [facility] Comment on above: Order Comment: Speci men Type: BLOOD SPECIMENOrdering Facility: [facility] Address: [address] [place] [address] Performed By: #### 2 4323-8 ####[facility] [id number] [place] [address] [place] Creatinine [Mass/Vol] 0.92 mg/dL Normal 0.58-0.96 [facility] Comment on above: Order Comment: Speci men Type: BLOOD SPECIMENOrdering Facility: [facility] Address: [address] [place] [address] Performed By: #### 2 4323-8 ####[facility] [id number] [place] [address] [place] ESTIMATED GLOMERULAR FILTRATION RATE 65 mL/min/1.73m??? Normal >=60 [facility] Comment on above: Order Comment: Speci men Type: BLOOD SPECIMENOrdering Facility: [facility] Address: [address] [place] [address] Result Comment: Jefry mated Glomerular Filtration Rate [...] actual GFR. Performed By: #### 2 4323-8 ####[facility] CENTERLIA [id number] [place] [address] [place] Glucose [Mass/Vol] 100 mg/dL High 74-99 [facility] Comment on above: Order Comment: Speci men Type: BLOOD SPECIMENOrdering Facility: [facility] Address: [address] [place] [address] Result Comment: The [place] Diabetes Association (ADA) provides guidance for cutoff [...] Standards of Medical Care in Diabetes 2016, [place] [employer]. Diabetes Care. 2016.39(Suppl 1). Performed By: #### 2 4323-8 ####[facility] HOSPITALJULIO [id number] [place] [address] [place] Potassium [Moles/Vol] 4.2 mmol/L Normal 3.7-5.1 [facility] Comment on above: Order Comment: Speci men Type: BLOOD SPECIMENOrdering Facility: [facility] Address: [address] [place] [address] Performed By: #### 2 4323-8 ####[facility] FLORIDABerna [id number] [place] [address] [place] Protein [Mass/Vol] 6.9 g/dL Normal 6.3-8.0 [facility] Comment on above: Order Comment: Speci men Type: BLOOD SPECIMENOrdering Facility: [facility] Address: [address] [address] Performed By: #### 2 4323-8 ####[facility] [id number] [place] [address] [place] Sodium [Moles/Vol] 138 mmol/L Normal 136-144 [facility] Comment on above: Order Comment: Speci men Type: BLOOD SPECIMENOrdering Facility: [facility] Address: [address] [address] Performed By: #### 2 4323-8 ####[facility] MARGOWNCLIA [id number] [place] [address] [place] Urea nitrogen [Mass/Vol] 25 mg/dL High 7-21 [facility] Comment on above: Order Comment: Speci men Type: BLOOD SPECIMENOrdering Facility: [facility] Address: [address] [place] [address] Performed By: #### 2 4323-8 ####[facility]ST[facility] HOSPITALNCROSE [id number] [address] [id number] [place] ECHOon 03-04-2023 Echocardiography Echocardiography Report: Transthoracic Echo [facility] Date of service: 03/04/2023 2:44:43 PM RECLAIMER Ordering physician: JOSELUIS PEREZ Indication: Baseline and serial evaluation in a patient undergoing therapy with cardiotoxic agents Technologist: Mahsa Miller [facility] Interpreting physician: Lennox Escobedo DO PATIENT: [...] * * Final * * * CC [employer] [facility] Image : [id number] Normal [facility] US DVT LOWER LEFTon 03-04-[address] [facility] US DVT LOWER LTon 03-04-2023 US DVT [...] imaged segments of the left lower extremity. [employer] Teacher: JUDITH Transcribe Date/Time: Mar 04 2023 2:24P Dictated by : LORENE HANEY MD This examination was interpreted and the report reviewed and electronically signed by: LORENE HANEY MD on Mar 04 2023 2:34PM EST [id number] Normal [facility] CNOVSPon 02-26-2023 CNOVSP Visit (SP) Office (GYNML) ROSITA KENNEDY ([id number]) 1945 F Date Time Provider Department 02/26/23 [...] removal. Pt declined cytotoxic therapy ER 50%, DC negative 9). 03/31/2018 - 03/16/2019: Letrozole started. Everolimus added 06/23/2018 due to progression. Treatment discontinued 03/16/2019 due to disease progression (confirmed 03/06/2019). Patient elected treatment holiday. 10). 08/2018: PE, IVC filter placement 11). 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 01/01/2022: [facility]. Recommended RT (vs systemic chemotherapy) for management of hypermetabolic aortocaval lymphadenopathy. Patient would prefer treatment in [place], [place]. 13). 02/24/2022 - 03/03/2022: Radiation Therapy (SBRT) - The Aortocaval LNs PTV received a total dose of 2400 cGy in [address] Youngblood 14) 09/03/2022 - 09/07/2022: Hospital admission: TCU resident for debility, RY, dehydration, UTI, extensive RLE DVT. 09/07/2022 Admitted to for heparin drip secondary to DVT 09/08/2022-09/10/2022: Surgical management w/ Dr. Schaefer for extensive RLE DVT. Patient underwent thrombectomy, balloon angioplasty of right lower extremity DVT and IVC venogram, percutaneous thrombectomy IVC, bilateral common and external arteries angioplasty, IVUS. Patient required admission and rehabilitation. 15) 10/2022: PET scan with few new retrocrural lymph nodes suspicious for metastases. Cooker Chip/Onc plan made for observation w/ repeat PET/CT [...] Moderately differentiate (more content not included)... Normal [facility] GLUCOSE, BLOOD (POC)on 02-17 Glucose [Mass/Vol] 67 mg/dL 74 - 99 mg/dL [facility] NM PET/CT SKULL-THIGH SUBQon 02-17-2023 NM PET/CT [...] spondylosis. Severe chronic-appearing anterior wedging of T10. Crocheter (topogram) images: Unremarkable. IMPRESSION: Head and Neck: [...] clinician contact the report author for clarification. [employer] Teacher: JUDITH Transcribe Date/Time: Feb 19 2023 3:07P Dictated by : HAI ALONSO MD This examination was interpreted and the report reviewed and electronically signed by: HAI ALONSO MD on Feb 19 2023 3:20PM EST [id number] [facility] 02[facility]16-2023 [facility] ROSITA KENNEDY ([id number]) 1945 F Date Time Provider Department 02/16/23 LUZ GUZMAN ([facility]) [place] During your visit today, we recorded [...] once daily. - L GASSERI/B BIFIDUM/B LONGUM ([facility] [employer] [facility] ORAL) Take by mouth. - CHOLECALCIFEROL, VITAMIN [...] 11/04/2021 Intracranial aneurysm (more content not included)... 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 - L GASSERI/B BIFIDUM/B LONGUM ([facility] [employer] [facility] ORAL) Take by mouth. - CHOLECALCIFEROL, VITAMIN [...] both eyes*05/10/2017 Cent (more content not included)... [facility] 12-07-2022 [facility] (GYNML) ROSITA KENNEDY ([id number]) 1945 F Date Time Provider Department 12/07/22 [facility] During your visit today, we recorded the following information about you: Henry Donovan, MNOTSE 12/07/2022 11:58 AM Signed Called patient to [...] Fully Assessed Reason for Visit: Care Coordination [3499] Cmt: Follow up POC Prescriptions as of [...] eyes*05/10/2017 Centr (more content not included)... Normal [facility] CNOVSPon 2022 CNOVSP Visit (SP) Office (GYNML) ROSITA KENNEDY ([id number]) 1945 F Date Time Provider Department 11/27/22 [...] removal. Pt declined cytotoxic therapy ER 50%, DC negative 9). 03/31/2018 - 03/16/2019: Letrozole started. Everolimus added 06/23/2018 due to progression. Treatment discontinued 03/16/2019 due to disease progression (confirmed 03/06/2019). Patient elected treatment holiday. 10.)08/2018: PE, IVC filter placement 11.) 01/01/2022: [facility]. Recommended RT (vs systemic chemotherapy) for management of hypermetabolic aortocaval lymphadenopathy (12/15 CT and 12/22 PET). Patient would prefer treatment in [place]. 12). 01/05/2022: Consult with Rad/Onc (Dr. Solorio in [place]). Per family, RT was not recommended due to concerns with risk of damage to bowels and kidney given the lymph node location. 13). 02/24/2022 - 03/03/2022: Radiation Therapy (SBRT) - The Aortocaval LNs PTV received a total dose of 2400 cGy in 3 fractions 14) 09/03/2022 - 09/07/2022: Hospital admission: TCU resident for debility, RY, dehydration, UTI, extensive RLE DVT. 09/07/2022 Admitted to for heparin drip secondary to DVT 15) 09/08/2022-07/2023 Dr. Schaefer performed thrombectomy, balloon angioplasty of right lower extremity DVT. 09/10/2022 IVC venogram, percutaneous thrombectomy IVC, bilateral common and external arteries angioplasty, IVUS. Date of last follow up: 06/19/22 [facility] Genetics Consultation/Testing Consultation: No Genetic Testing: No [...] Not identified Nodes negative 11/26/2016 ESTROGEN/PROGESTERONE RECEPTOR (ER/DC) ANALYSIS Estrogen receptors immunostain appears weakly to moderately positive in 30% of cell nuclei. Progesterone receptors immunostain appears moderately positive in 50% of cell nuclei. 2016 BIOPSY (more content not included)... Normal [facility] NM PET/CT SKULL-THIGH SUBQon 11-04-2022 NM PET/CT SKULL-THIGH SUBQ * * *Final Report* * * DATE OF EXAM: Nov 04 2022 3:03PM [facility] 0063 - NM PET/CT SKULL-THIGH SUBQ / [...] metastases. 4. 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 - L GASSERI/B BIFIDUM/B LONGUM ([employer] [facility]) Take by mouth. - CHOLECALCIFEROL, [...] *02/15/2019 Prima (more content not included)... Normal [facility] Absolute lymphocyte countOrd ered By: Dr. Min on 09-28-2022 Lymphocytes Auto (Unsp spec) [#/Vol] 1.41 10*3/uL 0.83-4.51 Basophil percentageOrdered B y: Dr. Min on 09-28-2022 Basophils/100 WBC (Bld) 0.7 % 0-1 [facility] Bilirubin [Mass/Vol] 0.30 mg/dL 0.20-1.00 [facility] Comment on above: For patients on eltr ombopag therapy, use of Dimension Ehrhardt TBIL is not recommended. Chloride [Moles/Vol] 107 mmol/L 98-107 [facility] Eosinophils/100 WBC (Bld) 2.3 % 0-5 Glucose [Mass/Vol] 93 mg/dL 74-106 [facility] Neutrophils (Bld) [#/Vol] 6.2 10*3/uL 2.0-7.7 Neutrophils/100 WBC (Bld) 71.1 % 47-70 Potassium [Moles/Vol] 4.0 mmol/L 3.5-5.1 [facility] Comment on above: Slight Hemolysis, Re sult may be falsely increased. Protein [Mass/Vol] 7.8 g/dL 6.4-8.2 [facility] Sodium [Moles/Vol] 142 mmol/L 136-145 [facility] WBC (Bld) [#/Vol] 8.7 10*3/uL 4.4-11.0 [facility] Blood erythrocytes count (nu mber/volume)Ordered By: Dr. Min on 09-28-2022 RBC (Bld) [#/Vol] 3.80 10*6/uL 4.2-5.4 [facility] Blood hemoglobin measurement (mass/volume)Ordered By: Dr. Min on 09-28-2022 Hemoglobin (Bld) [Mass/Vol] 10.2 g/dL 12.0-15.0 Blood lymphocytes/100 leukoc ytesOrdered By: Dr. Min on 09-28-2022 Lymphocytes/100 WBC (Bld) 16.1 % 19-41 Blood monocytes/100 leukocyt esOrdered By: Dr. Min on 09-28-2022 Monocytes/100 WBC (Bld) 8.1 % 0-10 [facility] Blood platelet mean volumeOr dered By: Dr. Min on 09-28-2022 Platelet mean volume (Bld) [Entitic vol] 9.4 fL 6.2-12.0 Determination of erythrocyte mean corpuscular volume (MCV)Ordered By: Dr. Min on 09-28-2022 MCV (RBC) [Entitic vol] 92.4 fL 81-99 [facility] Hematocrit Auto (Bld) [Volum e fraction]Ordered By: Dr. Min on 09-28-2022 Hematocrit (Bld) [Volume fraction] 35.1 % 37-47 Laboratory - Chemistry and C hemistry - challengeOrdered By: Dr. Min on 09-28-2022 ALP [Catalytic activity/Vol] 126 U/L 45-117 ALT [Catalytic activity/Vol] 19 U/L 13-56 CO2 [Moles/Vol] 26.0 mmol/L 21.0-32.0 Globulin (S) [Mass/Vol] 4.4 g/dL 2.2-4.2 [facility] Urea nitrogen/Creatinine [Mass ratio] 23.4 mg/mg 10-20 Laboratory - Hematology and Cell countsOrdered By: Dr. Min on 09-28-2022 Erythrocyte distribution width (RBC) [Entitic vol] 52.6 fL 35.1-43.9 Erythrocyte distribution width (RBC) [Ratio] 16.1 % 11.6-14.6 Immature granulocytes/100 WBC (Bld) 1.700 % 0.0-0.9 Comment on above: IG% - Immature Granu locytes (promyelocytes, myelocytes and metamyelocytes) > 1% indicates that a LEFT SHIFT is Present. MCH (RBC) [Entitic mass] 26.8 pg 27.0-32.0 Nucleated RBC/100 WBC (Bld) [Ratio] 0 % 0-5 MCHC Auto (RBC) [Mass/Vol]Or dered By: Dr. Min on 09-28-2022 MCHC (RBC) [Mass/Vol] 29.1 g/dL 32-36 [facility] No Panel InformationOrdered By: Dr. Min on 09-28-2022 Estimated GFR (MDRD) Amer 94 mL/min >60 Comment on above: GFR Calc Estimated GFR (MDRD) Non-Af Amer 78 mL/min >60 Comment on above: Non- GFR Calc Hepatitis C Antibody Non-Reactive Nonreactive [facility] Comment on above: Non Reactive: < 0.8 Equivocal: >/= 0.8 to < 1.0 Reactive: >/= 1.0The CDC recommends that a reactive/equivocal HCV antibody result be followed up by the HCV Nucleic Acid Amplificationtest (739246) Thyroid Stimulating Hormone (TSH) 3.00 uIU/mL 0.358-3.74 Vitamin D 25-Hydroxy 58.2 ng/mL [facility] Comment on above: Vitamin D 25(OH) Sta tus Range Deficiency <20 ng/mL (50nmol/L) Insufficiency 20 - 30 ng/mL (50 - 75 nmol/L) Sufficiency 30 - 100 ng/mL (75 - 250 nmol/L) Toxicity >100 ng/mL (>250 nmol/L) Platelets bldOrdered By: Dr. Min on 09-28-2022 Platelets (Bld) [#/Vol] 520 10*3/uL 150-450 Serum or plasma albumin felipe urement (mass/volume)Ordered By: Dr. Min on 09-28-2022 Albumin [Mass/Vol] 3.4 g/dL 3.2-5.0 [facility] Serum or plasma albumin/glob ulin mass ratioOrdered By: Dr. Min on 09-28-2022 Albumin/Globulin [Mass ratio] 0.8 {ratio} 0.9-2.4 Serum or plasma calcium felipe urement (mass/volume)Ordered By: Dr. Min on 09-28-2022 Calcium [Mass/Vol] 9.4 mg/dL 8.5-10.1 [facility] Serum or plasma creatinine m easurement (mass/volume)Ordered By: Dr. Min on 09-28-2022 Creatinine [Mass/Vol] 0.77 mg/dL 0.55-1.02 [facility] Comment on above: The validity of the calculated GFR & GFRAA in patients over 70 years has not been determined. Clinical correlation is essential. Serum or plasma urea nitroge n measurement (mass/volume)Ordered By: Dr. Min on 09-28-2022 Urea nitrogen [Mass/Vol] 18 mg/dL 7-18 Thin prep Papanicolaou smear with manual screeningOrdered By: Dr. Min on 09-28-2022 Thin prep Papanicolaou smear with manual screening 26 U/L 15-37 Comment on above: Slight Hemolysis, Re sult may be falsely increased. Thin prep Papanicolaou smear with manual screening 9 5-15 Absolute lymphocyte countOrd ered By: Dr. Min on 09-19-2022 Lymphocytes Auto (Unsp spec) [#/Vol] 1.40 10*3/uL 0.83-4.51 Basophil percentageOrdered B y: Dr. Min on 09-19-2022 Basophils/100 WBC (Bld) 0.7 % 0-1 [facility] Chloride [Moles/Vol] 107 mmol/L 98-107 [facility] Eosinophils/100 WBC (Bld) 3.5 % 0-5 Glucose [Mass/Vol] 111 mg/dL 74-106 [facility] Comment on above: Fasting Glucose resu lt from 100 to 125 mg/dL suggests IMPAIRED HOMEOSTASIS per A.D.A. criteria. Neutrophils (Bld) [#/Vol] 6.3 10*3/uL 2.0-7.7 Neutrophils/100 WBC (Bld) 68.3 % 47-70 Potassium [Moles/Vol] 3.9 mmol/L 3.5-5.1 [facility] Sodium [Moles/Vol] 139 mmol/L 136-145 [facility] WBC (Bld) [#/Vol] 9.2 10*3/uL 4.4-11.0 [facility] Blood erythrocytes count (nu mber/volume)Ordered By: Dr. Min on 09-19-2022 RBC (Bld) [#/Vol] 3.01 10*6/uL 4.2-5.4 [facility] Blood hemoglobin measurement (mass/volume)Ordered By: Dr. Min on 09-19-2022 Hemoglobin (Bld) [Mass/Vol] 8.2 g/dL 12.0-15.0 Blood lymphocytes/100 leukoc ytesOrdered By: Dr. Min on 09-19-2022 Lymphocytes/100 WBC (Bld) 15.3 % 19-41 Blood monocytes/100 leukocyt esOrdered By: Dr. Min on 09-19-2022 Monocytes/100 WBC (Bld) 8.4 % 0-10 [facility] Blood platelet mean volumeOr dered By: Dr. Min on 09-19-2022 Platelet mean volume (Bld) [Entitic vol] 8.8 fL 6.2-12.0 Determination of erythrocyte mean corpuscular volume (MCV)Ordered By: Dr. Min on 09-19-2022 MCV (RBC) [Entitic vol] 92.0 fL 81-99 [facility] Hematocrit Auto (Bld) [Volum e fraction]Ordered By: Dr. Min on 09-19-2022 Hematocrit (Bld) [Volume fraction] 27.7 % 37-47 Laboratory - Chemistry and C hemistry - challengeOrdered By: Dr. Min on 09-19-2022 CO2 [Moles/Vol] 27.0 mmol/L 21.0-32.0 Urea nitrogen/Creatinine [Mass ratio] 25.9 mg/mg 10-20 Laboratory - Hematology and Cell countsOrdered By: Dr. Min on 09-19-2022 Erythrocyte distribution width (RBC) [Entitic vol] 49.5 fL 35.1-43.9 Erythrocyte distribution width (RBC) [Ratio] 14.9 % 11.6-14.6 Immature granulocytes/100 WBC (Bld) 3.800 % 0.0-0.9 Comment on above: IG% - Immature Granu locytes (promyelocytes, myelocytes and metamyelocytes) > 1% indicates that a LEFT SHIFT is Present. MCH (RBC) [Entitic mass] 27.2 pg 27.0-32.0 Nucleated RBC/100 WBC (Bld) [Ratio] 0 % 0-5 MCHC Auto (RBC) [Mass/Vol]Or dered By: Dr. Min on 09-19-2022 MCHC (RBC) [Mass/Vol] 29.6 g/dL 32-36 [facility] No Panel InformationOrdered By: Dr. Min on 09-19-2022 Estimated Creatinine Clearance Calc 35.45 ml/min [facility] Estimated GFR (MDRD) Amer 100 mL/min >60 Comment on above: GFR Calc Estimated GFR (MDRD) Non-Af Amer 82 mL/min >60 Comment on above: Non- GFR Calc Platelets bldOrdered By: Dr. Min on 09-19-2022 Platelets (Bld) [#/Vol] 449 10*3/uL 150-450 Serum or plasma calcium felipe urement (mass/volume)Ordered By: Dr. Min on 09-19-2022 Calcium [Mass/Vol] 8.7 mg/dL 8.5-10.1 [facility] Serum or plasma creatinine m easurement (mass/volume)Ordered By: Dr. Min on 09-19-2022 Creatinine [Mass/Vol] 0.73 mg/dL 0.55-1.02 [facility] Comment on above: The validity of the calculated GFR & GFRAA in patients over 70 years has not been determined. Clinical correlation is essential. Serum or plasma urea nitroge n measurement (mass/volume)Ordered By: Dr. Min on 09-19-2022 Urea nitrogen [Mass/Vol] 19 mg/dL 7-18 Thin prep Papanicolaou smear with manual screeningOrdered By: Dr. Min on 09-19-2022 Thin prep Papanicolaou smear with manual screening 5 5-15 Culture, urineOrdered By: Dr Heydi Min on 09-16-2022 Bacteria identified Cx Nom (U) Culture exhibits no growth. COVID-19 virus antigen assay Ordered By: Dr. Min on 09-15-2022 SARS-CoV-2 (COVID-19) Ag IA.rapid Ql (Resp) Basophil percentageOrdered B y: Dr. Min on 09-14-2022 Basophil percentage 0 SEEN /hpf 0-5 [facility] Bilirubin Test strip Ql (U)O rdered By: Dr. Min on 09-14-2022 Bilirubin Ql (U) Negative Negative Ketones Test strip Ql (U)Ord ered By: Dr. Min on 09-14-2022 Ketones Ql (U) Negative Negative Mucus LM Ql (Urine sed)Order ed By: Dr. Min on 09-14-2022 Mucus Ql (Urine sed) 0 SEEN /hpf [facility] Nitrite Test strip Ql (U)Ord ered By: Dr. Min on 09-14-2022 Nitrite Ql (U) Negative Negative Protein Test strip Ql (U)Ord ered By: Dr. Min on 09-14-2022 Protein Ql (U) Negative Negative Squamous epithelial cells de tection in urine sediment by light microscopyOrdered By: Dr. Min on 09-14-2022 Epithelial cells.squamous LM Ql (Urine sed) 0-5 SEEN /hpf 5-10 Urine blood detectionOrdered By: Dr. Min on 09-14-2022 RBC Ql (U) Negative Negative RBC Ql (U) 0 SEEN /hpf 0-5 Urine clarityOrdered By: Dr. Min on 09-14-2022 Clarity (U) Sl. Cloudy Clear Urine color determinationOrd ered By: Dr. Min on 09-14-2022 Color (U) Yellow Yellow Urine glucose detectionOrder ed By: Dr. Min on 09-14-2022 Glucose Ql (U) Normal mg/dl Normal Urine leukocyte esterase det ection by dipstickOrdered By: Dr. Min on 09-14-2022 Leukocyte esterase Test strip Ql (U) Negative Negative Urine pHOrdered By: Dr. Min on 09-14-2022 pH (U) 6.5 [pH] 5.0 - 8.0 Urine sediment bacteria coun t by microscopy (number/high power field)Ordered By: Dr. Min on 09-14-2022 Bacteria LM.HPF (Urine sed) [#/Area] 0 /[HPF] None Seen Urine specific gravity measu rementOrdered By: Dr. Min on 09-14-2022 Specific gravity (U) [Rel density] 1.010 1.002-1.030 Urobilinogen Auto test strip Ql (U)Ordered By: Dr. Min on 09-14-2022 Urobilinogen Ql (U) Normal mg/dl Normal [facility] COVID-19 virus antigen assay Ordered By: Dr. Schaefer on 09-11-2022 SARS-CoV-2 (COVID-19) Ag IA.rapid Ql (Resp) Laboratory - CoagulationOrde red By: Dr. Schaefer on 09-11-2022 aPTT Coag (Bld) [Time] 62.7 s 24.1-36.2 [facility] Absolute lymphocyte countOrd ered By: Britany Garza on 09-09-2022 Lymphocytes Auto (Unsp spec) [#/Vol] 1.88 10*3/uL 0.83-4.51 Basophil percentageOrdered B y: Britany Garza on 09-09-2022 Basophils/100 WBC (Bld) 0.3 % 0-1 [facility] Chloride [Moles/Vol] 102 mmol/L 98-107 [facility] Eosinophils/100 WBC (Bld) 2.9 % 0-5 Glucose [Mass/Vol] 122 mg/dL 74-106 [facility] Comment on above: Fasting Glucose resu lt from 100 to 125 mg/dL suggests IMPAIRED HOMEOSTASIS per A.D.A. criteria. Neutrophils (Bld) [#/Vol] 10.1 10*3/uL 2.0-7.7 Neutrophils/100 WBC (Bld) 72.9 % 47-70 Potassium [Moles/Vol] 3.3 mmol/L 3.5-5.1 [facility] Sodium [Moles/Vol] 138 mmol/L 136-145 [facility] WBC (Bld) [#/Vol] 13.9 10*3/uL 4.4-11.0 [facility] Blood erythrocytes count (nu mber/volume)Ordered By: Britany Garza on 09-09-2022 RBC (Bld) [#/Vol] 2.97 10*6/uL 4.2-5.4 [facility] Blood hemoglobin measurement (mass/volume)Ordered By: Britany Garza on 09-09-2022 Hemoglobin (Bld) [Mass/Vol] 8.4 g/dL 12.0-15.0 Blood lymphocytes/100 leukoc ytesOrdered By: Britany Kayla on 09-09-2022 Lymphocytes/100 WBC (Bld) 13.6 % 19-41 Blood monocytes/100 leukocyt esOrdered By: Britanymariza Garza on 09-09-2022 Monocytes/100 WBC (Bld) 7.8 % 0-10 [facility] Blood platelet mean volumeOr dered By: Britany Garza on 09-09-2022 Platelet mean volume (Bld) [Entitic vol] 9.2 fL 6.2-12.0 Determination of erythrocyte mean corpuscular volume (MCV)Ordered By: Britanymariza [facility] on 09-09-2022 MCV (RBC) [Entitic vol] 90.9 fL 81-99 [facility] Hematocrit Auto (Bld) [Volum e fraction]Ordered By: Britany Kayla on 09-09-2022 Hematocrit (Bld) [Volume fraction] 27.0 % 37-47 Laboratory - Chemistry and C hemistry - [facility]Ordered By[facility] CO2 [Moles/Vol] 26.0 mmol/L 21.0-32.0 Urea nitrogen/Creatinine [Mass ratio] 23.0 mg/mg 10-20 Laboratory - Hematology and Cell countsOrdered By: [facility]22 Erythrocyte distribution width (RBC) [Entitic vol] 46.1 fL 35.1-43.9 Erythrocyte distribution width (RBC) [Ratio] 13.9 % 11.6-14.6 Immature granulocytes/100 WBC (Bld) 2.500 % 0.0-0.9 Comment on above: IG% - Immature Granu locytes (promyelocytes, myelocytes and metamyelocytes) > 1% indicates that a LEFT SHIFT is Present. MCH (RBC) [Entitic mass] 28.3 pg 27.0-32.0 Nucleated RBC/100 WBC (Bld) [Ratio] 0 % 0-5 MCHC Auto (RBC) [Mass/Vol]Or dered By: Britany Garza on 09-09-2022 MCHC (RBC) [Mass/Vol] 31.1 g/dL 32-36 [facility] No Panel InformationOrdered By: Britany Garza on 09-09-2022 Estimated Creatinine Clearance Calc 35.45 ml/min Estimated GFR (MDRD) Amer 99 mL/min >60 Comment on above: GFR Calc Estimated GFR (MDRD) Non-Af Amer 82 mL/min >60 Comment on above: Non- GFR Calc Platelets bldOrdered By: Gus aGrza on 09-09-2022 Platelets (Bld) [#/Vol] 423 10*3/uL 150-450 Serum or plasma calcium felipe urement (mass/volume)Ordered By: Britany Garza on 09-09-2022 Calcium [Mass/Vol] 8.6 mg/dL 8.5-10.1 [facility] Serum or plasma creatinine m easurement (mass/volume)Ordered By: Britany Garza on 09-09-2022 Creatinine [Mass/Vol] 0.74 mg/dL 0.55-1.02 [facility] Comment on above: The validity of the calculated GFR & GFRAA in patients over 70 years has not been determined. Clinical correlation is essential. Serum or plasma urea nitroge n measurement (mass/volume)Ordered By: Britany Garza on 09-09-2022 Urea nitrogen [Mass/Vol] 17 mg/dL 7-18 Thin prep Papanicolaou smear with manual screeningOrdered By: Britany Garza on 09-09-2022 Thin prep Papanicolaou smear with manual screening 10 5-15 No Panel InformationOrdered By: Dr. Schaefer on 09-08-2022 Thyroid Stimulating Hormone (TSH) 3.45 uIU/mL 0.358-3.74 COVID-19 virus antigen assay Ordered By: Dr. Min on 09-07-2022 SARS-CoV-2 (COVID-19) Ag IA.rapid Ql (Resp) INR in Blood by Coagulation assayOrdered By: Dr. Schaefer on 09-07-2022 INR Coag (Bld) [Relative time] 1.1 {INR} Laboratory - CoagulationOrde red By: Dr. Schaefer on 09-07-2022 PT Coag (PPP) [Time] 13.5 s 11.7-14.9 [facility] Absolute lymphocyte countOrd ered By: Dr. Min on 09-04-2022 Lymphocytes Auto (Unsp spec) [#/Vol] 1.39 10*3/uL 0.83-4.51 Basophil percentageOrdered B y: Dr. Min on 09-04-2022 Basophils/100 WBC (Bld) 0.5 % 0-1 [facility] Chloride [Moles/Vol] 107 mmol/L 98-107 [facility] Eosinophils/100 WBC (Bld) 2.7 % 0-5 Glucose [Mass/Vol] 106 mg/dL 74-106 [facility] Comment on above: Fasting Glucose resu lt from 100 to 125 mg/dL suggests IMPAIRED HOMEOSTASIS per A.D.A. criteria. Neutrophils (Bld) [#/Vol] 7.8 10*3/uL 2.0-7.7 Neutrophils/100 WBC (Bld) 73.1 % 47-70 Potassium [Moles/Vol] 3.6 mmol/L 3.5-5.1 [facility] Sodium [Moles/Vol] 139 mmol/L 136-145 [facility] WBC (Bld) [#/Vol] 10.7 10*3/uL 4.4-11.0 [facility] Blood erythrocytes count (nu mber/volume)Ordered By: Dr. Min on 09-04-2022 RBC (Bld) [#/Vol] 3.22 10*6/uL 4.2-5.4 [facility] Blood hemoglobin measurement (mass/volume)Ordered By: Dr. Min on 09-04-2022 Hemoglobin (Bld) [Mass/Vol] 9.1 g/dL 12.0-15.0 Blood lymphocytes/100 leukoc ytesOrdered By: Dr. Min on 09-04-2022 Lymphocytes/100 WBC (Bld) 13.1 % 19-41 Blood monocytes/100 leukocyt esOrdered By: Dr. Min on 09-04-2022 Monocytes/100 WBC (Bld) 9.0 % 0-10 [facility] Blood platelet mean volumeOr dered By: Dr. Min on 09-04-2022 Platelet mean volume (Bld) [Entitic vol] 9.3 fL 6.2-12.0 Determination of erythrocyte mean corpuscular volume (MCV)Ordered By: Dr. Min on 09-04-2022 MCV (RBC) [Entitic vol] 89.4 fL 81-99 [facility] Hematocrit Auto (Bld) [Volum e fraction]Ordered By: Dr. Min on 09-04-2022 Hematocrit (Bld) [Volume fraction] 28.8 % 37-47 Laboratory - Chemistry and C hemistry - challengeOrdered By: Dr. Min on 09-04-2022 CO2 [Moles/Vol] 22.0 mmol/L 21.0-32.0 Urea nitrogen/Creatinine [Mass ratio] 21.9 mg/mg 10-20 Laboratory - Hematology and Cell countsOrdered By: Dr. Min on 09-04-2022 Erythrocyte distribution width (RBC) [Entitic vol] 44.9 fL 35.1-43.9 Erythrocyte distribution width (RBC) [Ratio] 13.6 % 11.6-14.6 Immature granulocytes/100 WBC (Bld) 1.600 % 0.0-0.9 Comment on above: IG% - Immature Granu locytes (promyelocytes, myelocytes and metamyelocytes) > 1% indicates that a LEFT SHIFT is Present. MCH (RBC) [Entitic mass] 28.3 pg 27.0-32.0 Nucleated RBC/100 WBC (Bld) [Ratio] 0 % 0-5 MCHC Auto (RBC) [Mass/Vol]Or dered By: Dr. Min on 09-04-2022 MCHC (RBC) [Mass/Vol] 31.6 g/dL 32-36 [facility] No Panel InformationOrdered By: Dr. Min on 09-04-2022 Estimated Creatinine Clearance Calc 40.83 ml/min Estimated GFR (MDRD) Amer 93 mL/min >60 Comment on above: GFR Calc Estimated GFR (MDRD) Non-Af Amer 77 mL/min >60 Comment on above: Non- GFR Calc Platelets bldOrdered By: Dr. Min on 09-04-2022 Platelets (Bld) [#/Vol] 320 10*3/uL 150-450 Serum or plasma calcium felipe urement (mass/volume)Ordered By: Dr. Min on 09-04-2022 Calcium [Mass/Vol] 8.2 mg/dL 8.5-10.1 [facility] Serum or plasma creatinine m easurement (mass/volume)Ordered By: Dr. Min on 09-04-2022 Creatinine [Mass/Vol] 0.78 mg/dL 0.55-1.02 [facility] Comment on above: The validity of the calculated GFR & GFRAA in patients over 70 years has not been determined. Clinical correlation is essential. Serum or plasma urea nitroge n measurement (mass/volume)Ordered By: Dr. Min on 09-04-2022 Urea nitrogen [Mass/Vol] 17 mg/dL 7-18 Thin prep Papanicolaou smear with manual screeningOrdered By: Dr. Min on 09-04-2022 Thin prep Papanicolaou smear with manual screening 10 5-15 Absolute lymphocyte countOrd ered By: Dr. Wood on 09-03-2022 Lymphocytes Auto (Unsp spec) [#/Vol] 1.13 10*3/uL 0.83-4.51 Basophil percentageOrdered B y: Dr. Wood on 09-03-2022 Basophils/100 WBC (Bld) 0.3 % 0-1 [facility] Bilirubin [Mass/Vol] 0.40 mg/dL 0.20-1.00 [facility] Comment on above: For patients on eltr ombopag therapy, use of Dimension Ehrhardt TBIL is not recommended. Chloride [Moles/Vol] 107 mmol/L 98-107 [facility] Eosinophils/100 WBC (Bld) 2.0 % 0-5 Glucose [Mass/Vol] 99 mg/dL 74-106 [facility] Neutrophils (Bld) [#/Vol] 8.3 10*3/uL 2.0-7.7 Neutrophils/100 WBC (Bld) 76.4 % 47-70 Potassium [Moles/Vol] 3.7 mmol/L 3.5-5.1 [facility] Protein [Mass/Vol] 6.2 g/dL 6.4-8.2 [facility] Sodium [Moles/Vol] 140 mmol/L 136-145 [facility] WBC (Bld) [#/Vol] 10.9 10*3/uL 4.4-11.0 [facility] Blood erythrocytes count (nu mber/volume)Ordered By: Dr. Wood on 09-03-2022 RBC (Bld) [#/Vol] 3.32 10*6/uL 4.2-5.4 [facility] Blood hemoglobin measurement (mass/volume)Ordered By: Dr. Wood on 09-03-2022 Hemoglobin (Bld) [Mass/Vol] 9.6 g/dL 12.0-15.0 Blood lymphocytes/100 leukoc ytesOrdered By: Dr. Wood on 09-03-2022 Lymphocytes/100 WBC (Bld) 10.4 % 19-41 Blood monocytes/100 leukocyt esOrdered By: Dr. Wood on 09-03-2022 Monocytes/100 WBC (Bld) 9.5 % 0-10 [facility] Blood platelet mean volumeOr dered By: Dr. Wood on 09-03-2022 Platelet mean volume (Bld) [Entitic vol] 9.5 fL 6.2-12.0 Determination of erythrocyte mean corpuscular volume (MCV)Ordered By: Dr. Wood on 09-03-2022 MCV (RBC) [Entitic vol] 92.2 fL 81-99 [facility] Hematocrit Auto (Bld) [Volum e fraction]Ordered By: Dr. Wood on 09-03-2022 Hematocrit (Bld) [Volume fraction] 30.6 % 37-47 Laboratory - Chemistry and C hemistry - challengeOrdered By: Dr. Wood on 09-03-2022 ALP [Catalytic activity/Vol] 77 U/L 45-117 ALT [Catalytic activity/Vol] 13 U/L 13-56 CO2 [Moles/Vol] 25.0 mmol/L 21.0-32.0 Globulin (S) [Mass/Vol] 3.6 g/dL 2.2-4.2 [facility] Urea nitrogen/Creatinine [Mass ratio] 20.4 mg/mg 10-20 Laboratory - Hematology and Cell countsOrdered By: Dr. Wood on 09-03-2022 Erythrocyte distribution width (RBC) [Entitic vol] 46.2 fL 35.1-43.9 Erythrocyte distribution width (RBC) [Ratio] 13.7 % 11.6-14.6 Immature granulocytes/100 WBC (Bld) 1.400 % 0.0-0.9 Comment on above: IG% - Immature Granu locytes (promyelocytes, myelocytes and metamyelocytes) > 1% indicates that a LEFT SHIFT is Present. MCH (RBC) [Entitic mass] 28.9 pg 27.0-32.0 Nucleated RBC/100 WBC (Bld) [Ratio] 0 % 0-5 Laboratory - Microbiology an d Antimicrobial susceptibilityOrdered By: Dr. Wood on 09-03-2022 Respiratory pathogens DNA and RNA 12b panel NURYS+probe (Unsp spec) MCHC Auto (RBC) [Mass/Vol]Or dered By: Dr. Wood on 09-03-2022 MCHC (RBC) [Mass/Vol] 31.4 g/dL 32-36 [facility] No Panel InformationOrdered By: Dr. Wood on 09-03-2022 Estimated Creatinine Clearance Calc 44.98 ml/min Estimated GFR (MDRD) Amer 80 mL/min >60 Comment on above: GFR Calc Estimated GFR (MDRD) Non-Af Amer 66 mL/min >60 Comment on above: Non- GFR Calc Platelets bldOrdered By: Dr. Wood on 09-03-2022 Platelets (Bld) [#/Vol] 243 10*3/uL 150-450 Serum or plasma albumin felipe urement (mass/volume)Ordered By: Dr. Wood on 09-03-2022 Albumin [Mass/Vol] 2.6 g/dL 3.2-5.0 [facility] Serum or plasma albumin/glob ulin mass ratioOrdered By: Dr. Wood on 09-03-2022 Albumin/Globulin [Mass ratio] 0.7 {ratio} 0.9-2.4 Serum or plasma calcium felipe urement (mass/volume)Ordered By: Dr. Wood on 09-03-2022 Calcium [Mass/Vol] 8.1 mg/dL 8.5-10.1 [facility] Serum or plasma creatinine m easurement (mass/volume)Ordered By: Dr. Wood on 09-03-2022 Creatinine [Mass/Vol] 0.88 mg/dL 0.55-1.02 [facility] Comment on above: The validity of the calculated GFR & GFRAA in patients over 70 years has not been determined. Clinical correlation is essential. Serum or plasma urea nitroge n measurement (mass/volume)Ordered By: Dr. Wood on 09-03-2022 Urea nitrogen [Mass/Vol] 18 mg/dL 7-18 Thin prep Papanicolaou smear with manual screeningOrdered By: Dr. Wood on 09-03-2022 Thin prep Papanicolaou smear with manual screening 13 U/L 15-37 Thin prep Papanicolaou smear with manual screening 8 5-15 Iron measurement (mass/mass) Ordered By: Dr. Wood on 09-02-2022 Iron (Unsp spec) [Mass/Mass] 12 ug/dL 50-170 Laboratory - CoagulationOrde red By: Dr. Wood on 09-02-2022 aPTT Coag (Bld) [Time] 32.2 s 24.1-36.2 [facility] No Panel InformationOrdered By: Dr. Wood on 09-02-2022 Total Iron Binding Capacity 239 ug/dL 250-450 Serum or plasma ferritin dylan surement (mass/volume)Ordered By: Dr. Wood on 09-02-2022 Ferritin [Mass/Vol] 234 ng/mL 8-252 [facility] Serum or plasma iron saturat ion measurement (mass fraction)Ordered By: Dr. Wood on 09-02-2022 Iron saturation [Mass fraction] 5.0 % 15.0-55.0 Stool gastrointestinal hemog lobin detection by immunologic methodOrdered By: Dr. Solorio on 09-02-2022 Lower GI hemoglobin IA Ql (Stl) Basophil percentageOrdered B y: Dr. Solorio on 09-01-2022 Basophil percentage 2.6 mg/dL 2.5-4.9 [facility] Laboratory - Chemistry and C hemistry - challengeOrdered By: Dr. Solorio on 09-01-2022 Magnesium [Mass/Vol] 2.1 mg/dL 1.6-2.6 [facility] Absolute lymphocyte counton 08-31-2022 Lymphocytes Auto (Unsp spec) [#/Vol] 0.87 10*3/uL 0.83-4.51 Work Phone: Basophil percentageOrdered B y: Dr. Gonzáles on 08-31-2022 Basophil percentage 0-5 SEEN /hpf 0-5 [facility] Basophil percentageon 2022 Basophils/100 WBC (Bld) 0.3 % 0-1 [facility] Work Phone: Bilirubin [Mass/Vol] 0.50 mg/dL 0.20-1.00 [facility] Work Phone: Comment on above: For patients on eltr ombopag therapy, use of Dimension Ehrhardt TBIL is not recommended. Chloride [Moles/Vol] 108 mmol/L 98-107 [facility] Work Phone: Eosinophils/100 WBC (Bld) 0.2 % 0-5 Work Phone: Glucose [Mass/Vol] 148 mg/dL 74-106 [facility] Work Phone: Comment on above: Fasting Glucose resu lt greater than or equal to 126 mg/dL suggests DIABETES MELLITUS per A.D.A. criteria. Neutrophils (Bld) [#/Vol] 10.1 10*3/uL 2.0-7.7 Work Phone: Neutrophils/100 WBC (Bld) 82.6 % 47-70 Work Phone: Potassium [Moles/Vol] 4.4 mmol/L 3.5-5.1 [facility] Work Phone: Protein [Mass/Vol] 7.4 g/dL 6.4-8.2 [facility] Work Phone: Sodium [Moles/Vol] 139 mmol/L 136-145 [facility] Work Phone: WBC (Bld) [#/Vol] 12.3 10*3/uL 4.4-11.0 [facility] Work Phone: Bilirubin Test strip Ql (U)O rdered By: Dr. Gonzáles on 08-31-2022 Bilirubin Ql (U) Negative Negative Blood erythrocytes count (nu mber/volume)on 08-31-2022 RBC (Bld) [#/Vol] 3.72 10*6/uL 4.2-5.4 [facility] Work Phone: Blood hemoglobin measurement (mass/volume)on 08-31-2022 Hemoglobin (Bld) [Mass/Vol] 10.5 g/dL 12.0-15.0 Work Phone: Blood lymphocytes/100 leukoc yteson 08-31-2022 Lymphocytes/100 WBC (Bld) 7.1 % 19-41 Work Phone: Blood monocytes/100 leukocyt eson 08-31-2022 Monocytes/100 WBC (Bld) 8.7 % 0-10 [facility] Work Phone: Blood platelet mean volumeon 08-31-2022 Platelet mean volume (Bld) [Entitic vol] 9.9 fL 6.2-12.0 Work Phone: Determination of erythrocyte mean corpuscular volume (MCV)on 08-31-2022 MCV (RBC) [Entitic vol] 95.7 fL 81-99 [facility] Work Phone: Hematocrit Auto (Bld) [Volum e fraction]on 08-31-2022 Hematocrit (Bld) [Volume fraction] 35.6 % 37-47 Work Phone: Hyaline casts LM.LPF (Urine sed) [#/Area]Ordered By: Dr. Gonzáles on 08-31-2022 Hyaline casts (Urine sed) [#/Area] 0 /[LPF] 0-5 Ketones Test strip Ql (U)Ord ered By: Dr. Gonzáles on 08-31-2022 Ketones Ql (U) Negative Negative Laboratory - Chemistry and C hemistry - challengeon 08-31-2022 ALP [Catalytic activity/Vol] 96 U/L 45-117 Work Phone: ALT [Catalytic activity/Vol] 14 U/L 13-56 Work Phone: CO2 [Moles/Vol] 24.0 mmol/L 21.0-32.0 Work Phone: Globulin (S) [Mass/Vol] 3.8 g/dL 2.2-4.2 [facility] Work Phone: Urea nitrogen/Creatinine [Mass ratio] 21.6 mg/mg 10-20 Work Phone: Laboratory - Chemistry and C hemistry - challengeOrdered By: Dr. Gonzáles on 08-31-2022 Natriuretic peptide B (Bld) [Mass/Vol] 48.3 pg/mL 0-100 Laboratory - Hematology and Cell countson 08-31-2022 Erythrocyte distribution width (RBC) [Entitic vol] 50.0 fL 35.1-43.9 Work Phone: Erythrocyte distribution width (RBC) [Ratio] 14.1 % 11.6-14.6 Work Phone: Immature granulocytes/100 WBC (Bld) 1.100 % 0.0-0.9 Work Phone: Comment on above: IG% - Immature Granu locytes (promyelocytes, myelocytes and metamyelocytes) > 1% indicates that a LEFT SHIFT is Present. MCH (RBC) [Entitic mass] 28.2 pg 27.0-32.0 Work Phone: Nucleated RBC/100 WBC (Bld) [Ratio] 0 % 0-5 Work Phone: MCHC Auto (RBC) [Mass/Vol]on 08-31-2022 MCHC (RBC) [Mass/Vol] 29.5 g/dL 32-36 [facility] Work Phone: Mucus LM Ql (Urine sed)Order ed By: Dr. Gonzáles on 08-31-2022 Mucus Ql (Urine sed) 0 SEEN /hpf [facility] Nitrite Test strip Ql (U)Ord ered By: Dr. Gonzáles on 08-31-2022 Nitrite Ql (U) Negative Negative No Panel Informationon 08-31 Estimated Creatinine Clearance Calc 23.15 ml/min Work Phone: Estimated GFR (MDRD) Amer 38 mL/min >60 Work Phone: Comment on above: GFR Calc Estimated GFR (MDRD) Non-Af Amer 31 mL/min >60 Work Phone: Comment on above: Non- GFR Calc No Panel InformationOrdered By: Dr. Gonzáles on 08-31-2022 Troponin I High Sensitivity 25 pg/mL 3.0-54.0 Comment on above: Please Note: New [place] t Units and Gender Specific Reference Ranges. For more information see Policy Stat Procedure [place] High Sensitivity Troponin (TNIH) and attachments. Platelets bldon 08-31-2022 Platelets (Bld) [#/Vol] 233 10*3/uL 150-450 Work Phone: Protein Test strip Ql (U)Ord ered By: Dr. Gonzáles on 08-31-2022 Protein Ql (U) 30 mg/dl Negative Serum or plasma albumin felipe urement (mass/volume)on 08-31-2022 Albumin [Mass/Vol] 3.6 g/dL 3.2-5.0 [facility] Work Phone: Serum or plasma albumin/glob ulin mass ratioon 08-31-2022 Albumin/Globulin [Mass ratio] 0.9 {ratio} 0.9-2.4 Work Phone: Serum or plasma calcium felipe urement (mass/volume)on 08-31-2022 Calcium [Mass/Vol] 8.9 mg/dL 8.5-10.1 [facility] Work Phone: Serum or plasma creatinine m easurement (mass/volume)on 08-31-2022 Creatinine [Mass/Vol] 1.71 mg/dL 0.55-1.02 [facility] Work Phone: Comment on above: The validity of the calculated GFR & GFRAA in patients over 70 years has not been determined. Clinical correlation is essential. Serum or plasma urea nitroge n measurement (mass/volume)on 08-31-2022 Urea nitrogen [Mass/Vol] 37 mg/dL 7-18 Work Phone: Squamous epithelial cells de tection in urine sediment by light microscopyOrdered By: Dr. Gonzáles on 08-31-2022 Epithelial cells.squamous LM Ql (Urine sed) 0-5 SEEN /hpf 5-10 Thin prep Papanicolaou smear with manual screeningon 08-31-2022 Thin prep Papanicolaou smear with manual screening 15 U/L 15-37 Work Phone: Thin prep Papanicolaou smear with manual screening 7 5-15 Work Phone: Urine blood detectionOrdered By: Dr. Gonzáles on 08-31-2022 RBC Ql (U) Negative Negative RBC Ql (U) 0 SEEN /hpf 0-5 Urine clarityOrdered By: Dr. Gonzáles on 08-31-2022 Clarity (U) Clear Clear Urine color determinationOrd ered By: Dr. Gonzáles on 08-31-2022 Color (U) Yellow Yellow Urine glucose detectionOrder ed By: Dr. Gonzáles on 08-31-2022 Glucose Ql (U) Normal mg/dl Normal Urine leukocyte esterase det ection by dipstickOrdered By: Dr. Gonzáles on 08-31-2022 Leukocyte esterase Test strip Ql (U) 25 /ul Negative Urine pHOrdered By: Dr. Antony mcclain on 08-31-2022 pH (U) 5.0 [pH] 5.0 - 8.0 Urine sediment bacteria coun t by microscopy (number/high power field)Ordered By: Dr. Gonzáles on 08-31-2022 Bacteria LM.HPF (Urine sed) [#/Area] 0 /[HPF] None Seen Urine specific gravity measu rementOrdered By: Dr. Gonzáles on 08-31-2022 Specific gravity (U) [Rel density] 1.015 1.002-1.030 Urobilinogen Auto test strip Ql (U)Ordered By: Dr. Gonzáles on 08-31-2022 Urobilinogen Ql (U) Normal mg/dl Normal [facility] CBC W Auto Differential pane l (Bld)on 08-28-2022 Basophils (Bld) [#/Vol] 0.04 10*3/uL <0.11 k/uL [facility] Basophils/100 WBC (Bld) 0.4 % [facility] Differential cell count method Nom (Bld) Auto [facility] Eosinophils (Bld) [#/Vol] 0.07 10*3/uL <0.46 k/uL [facility] Eosinophils/100 WBC (Bld) 0.6 % [facility] Erythrocyte distribution width (RBC) [Ratio] 14.0 % 11.5 - 15.0 % [facility] Hematocrit (Bld) [Volume fraction] 36.0 % 36.0 - 46.0 % [facility] Hemoglobin (Bld) [Mass/Vol] 11.0 g/dL Low 11.5 - 15.5 g/dL [facility] Immature granulocytes (Bld) [#/Vol] 0.15 10*3/uL High <0.10 k/uL [facility] Immature granulocytes/100 WBC (Bld) 1.3 % [facility] Lymphocytes (Bld) [#/Vol] 1.36 10*3/uL 1.00 - 4.00 k/uL [facility] Lymphocytes/100 WBC (Bld) 12.1 % [facility] MCH (RBC) [Entitic mass] 28.5 pg 26.0 - 34.[address] [facility] MCHC (RBC) [Mass/Vol] 30.6 g/dL 30.5 - 36.0 g/dL [facility] MCV (RBC) [Entitic vol] 93.3 fL 80.0 - 100.[address] [facility] Monocytes (Bld) [#/Vol] 0.94 10*3/uL High <0.87 k/uL [facility] Monocytes/100 WBC (Bld) 8.4 % [facility] Neutrophils (Bld) [#/Vol] 8.68 10*3/uL High 1.45 - 7.50 k/uL [facility] Neutrophils/100 WBC (Bld) 77.2 % [facility] Nucleated RBC (Bld) [#/Vol] <0.01 k/uL [facility] Nucleated RBC/100 WBC (Bld) [Ratio] 0.0 /[address] [facility] Platelet mean volume (Bld) [Entitic vol] 10.7 fL 9.0 - 12.[address] [facility] Platelets (Bld) [#/Vol] 227 10*3/uL 150 - 400 k /uL [facility] RBC (Bld) [#/Vol] 3.86 10*6/uL Low 3.90 - 5.2 0 m/uL [facility] WBC (Bld) [#/Vol] 11.24 10*3/uL High 3.70 - 11 .00 k/uL [facility] Comprehensive metabolic 2000 panelon 08-28-2022 Albumin [Mass/Vol] 4.3 g/dL 3.9 - 4.9 g/dL [facility] ALP [Catalytic activity/Vol] 111 U/L 34 - 123 U/L [facility] ALT [Catalytic activity/Vol] 11 U/L 7 - 38 U/L [facility] Anion gap [Moles/Vol] 13 mmol/L 9 - 18 mmol/L [facility] AST [Catalytic activity/Vol] 21 U/L 13 - 35 U/L [facility] Bilirubin [Mass/Vol] 0.4 mg/dL 0.2 - 1 .3 mg/dL [facility] Calcium [Mass/Vol] 9.5 mg/dL 8.5 - 10. 2 mg/dL [facility] Chloride [Moles/Vol] 102 mmol/L 97 - 10 5 mmol/L [facility] CO2 [Moles/Vol] 24 mmol/L 22 - 30 mmol/L [facility] Creatinine [Mass/Vol] 1.69 mg/dL High 0.58 - 0.96 mg/dL [facility] Estimated Glomerular Filtration Rate 32 mL/min/1.73m Low >=60 mL/min/1.73m [facility] Glucose [Mass/Vol] 109 mg/dL High 74 - 99 mg/dL [facility] Potassium [Moles/Vol] 4.7 mmol/L 3.7 - 5.1 mmol/L [facility] Protein [Mass/Vol] 7.1 g/dL 6.3 - 8.0 g/dL [facility] Sodium [Moles/Vol] 139 mmol/L 136 - 144 mmol/L [facility] Urea nitrogen [Mass/Vol] 39 mg/dL High 7 - 21 mg/dL [facility] FERRITIN BLDon 08-28-2022 Ferritin [Mass/Vol] 259.0 ng/mL High 14.7 - 2 05.1 ng/mL [facility] Iron and Iron binding capaci ty panelon 08-28-2022 Iron [Mass/Vol] 25 ug/dL Low 41 - 186 ug/dL [facility] Iron binding capacity [Mass/Vol] 299 ug/dL 232 - 386 ug/dL [facility] Iron/TIBC [Molar ratio] 8.4 % Low 15.0 - 57.0 % [facility] GLUCOSE, BLOOD (POC)on 06-12 Glucose [Mass/Vol] 104 mg/dL Abnormal 74 - 99 mg/dL [facility] NM PET/CT SKULL-THIGH SUBQon 06-12-2022 NM PET/CT [...] Max SUV 2.2 Liver: Max SUV 3.0 Crocheter (topogram) images: No additional findings. HEAD AND [...] EXTREMITIES/SKELETON: * No FDG avid neoplastic process.. [employer]: JUDITH Transcribe Date/Time: Jun 12 2022 11:27A Dictated by : SHANICE LEAHY MD This examination was interpreted and the report reviewed and electronically signed by: HAI ALONSO MD on Jun 12 2022 12:03PM EST [id number] N Normal [facility] NM PET/CT SKULL-THIGH SUBSEQ UENTon 06-12-[address] [facility] CBC W Auto Differential pane l (Bld)on 04-14-2022 Abs Immature Gran 0.06 k/uL <0.10 k/uL [facility] Basophils (Bld) [#/Vol] 0.05 10*3/uL <0.11 k/uL [facility] Basophils/100 WBC (Bld) 0.6 % [facility] Differential cell count method Nom (Bld) Auto [facility] Eosinophils (Bld) [#/Vol] 0.17 10*3/uL <0.46 k/uL [facility] Eosinophils/100 WBC (Bld) 2.0 % [facility] Erythrocyte distribution width (RBC) [Ratio] 13.3 % 11.5 - 15.0 % [facility] Hematocrit (Bld) [Volume fraction] 41.0 % 36.0 - 46.0 % [facility] Hemoglobin (Bld) [Mass/Vol] 12.9 g/dL 11.5 - 15.5 g/dL [facility] Immature Gran % 0.7 % [facility] Lymphocytes (Bld) [#/Vol] 1.11 10*3/uL 1.00 - 4.00 k/uL [facility] Lymphocytes/100 WBC (Bld) 13.2 % [facility] MCH (RBC) [Entitic mass] 29.6 pg 26.0 - 34.[address] [facility] MCHC (RBC) [Mass/Vol] 31.5 g/dL 30.5 - 36.0 g/dL [facility] MCV (RBC) [Entitic vol] 94.0 fL 80.0 - 100.[address] [facility] Monocytes (Bld) [#/Vol] 0.84 10*3/uL <0.87 k/uL [facility] Monocytes/100 WBC (Bld) 10.0 % [facility] Neutrophils (Bld) [#/Vol] 6.19 10*3/uL 1.45 - 7.50 k/uL [facility] Neutrophils/100 WBC (Bld) 73.5 % [facility] Nucleated RBC (Bld) [#/Vol] <0.01 k/uL [facility] Nucleated RBC/100 WBC (Bld) [Ratio] 0.0 /[address] [facility] Platelet mean volume (Bld) [Entitic vol] 9.8 fL 9.0 - 12.[address] [facility] Platelets (Bld) [#/Vol] 318 10*3/uL 150 - 400 k /uL [facility] RBC (Bld) [#/Vol] 4.36 10*6/uL 3.90 - 5.2 0 m/uL [facility] WBC (Bld) [#/Vol] 8.42 10*3/uL 3.70 - 11. 00 k/uL [facility] Comprehensive metabolic 2000 panelon 04-14-2022 Albumin [Mass/Vol] 4.5 g/dL 3.9 - 4.9 g/dL [facility] ALP [Catalytic activity/Vol] 85 U/L 34 - 123 U/L [facility] ALT [Catalytic activity/Vol] 12 U/L 7 - 38 U/L [facility] Anion gap [Moles/Vol] 14 mmol/L 9 - 18 mmol/L [facility] AST [Catalytic activity/Vol] 22 U/L 13 - 35 U/L [facility] Bilirubin [Mass/Vol] 0.3 mg/dL 0.2 - 1 .3 mg/dL [facility] Calcium [Mass/Vol] 9.9 mg/dL 8.5 - 10. 2 mg/dL [facility] Chloride [Moles/Vol] 103 mmol/L 97 - 10 5 mmol/L [facility] CO2 [Moles/Vol] 25 mmol/L 22 - 30 mmol/L [facility] Creatinine [Mass/Vol] 0.97 mg/dL High 0.58 - 0.96 mg/dL [facility] Estimated Glomerular Filtration Rate 61 mL/min/1.73m >=60 mL/min/1.73m [facility] Glucose [Mass/Vol] 100 mg/dL High 74 - 99 mg/dL [facility] Potassium [Moles/Vol] 4.0 mmol/L 3.7 - 5.1 mmol/L [facility] Protein [Mass/Vol] 6.8 g/dL 6.3 - 8.0 g/dL [facility] Sodium [Moles/Vol] 142 mmol/L 136 - 144 mmol/L [facility] Urea nitrogen [Mass/Vol] 21 mg/dL 7 - 21 mg/dL [facility] UA DIP, URINE (POC)on 2021 BILIRUBIN UA (POCT) Negative Negative [facility] CLARITY UA (POCT) Slightly Cloudy [facility] COLOR UA (POCT) Yellow [facility] GLUCOSE UA (POCT) Negative Negative mg/dL [facility] HEMOGLOBIN/BLOOD UA (POCT) Moderate Abnormal Negative [facility] KETONE UA (POCT) Negative Negative mg/dL [facility] LEUKOCYTES UA (POCT) Moderate Abnormal Negative [facility] NITRITE UA (POCT) Positive Abnormal Negative [facility] PH UA (POCT) 5.5 4.5 - 8.[address] [facility] Protein Ql (U) 30 mg/dL Abnormal Negative mg/dL [facility] SPECIFIC GRAVITY UA (POCT) 1.015 1.005 - 1.[address] [facility] UROBILINOGEN UA (POCT) 0.2 E.U./dL Normal E.U./ dL [facility] UA DIP, URINE (POC)on 2021 BILIRUBIN UA (POCT) Negative Negative [facility] CLARITY UA (POCT) Clear [facility] COLOR UA (POCT) Yellow [facility] GLUCOSE UA (POCT) Negative Negative mg/dL [facility] HEMOGLOBIN/BLOOD UA (POCT) Negative Negative [facility] KETONE UA (POCT) Negative Negative mg/dL [facility] LEUKOCYTES UA (POCT) Small Abnormal Negative [facility] NITRITE UA (POCT) Negative Negative [facility] PH UA (POCT) 5.0 4.5 - 8.[address] [facility] Protein Ql (U) Negative Negative mg/dL [facility] SPECIFIC GRAVITY UA (POCT) 1.015 1.005 - 1.[address] [facility] UROBILINOGEN UA (POCT) 0.2 E.U./dL Normal E.U./ dL [facility] CBC W Auto Differential pane l (Bld)on 02-12-2022 Abs Immature Gran 0.04 k/uL <0.10 k/uL [facility] Basophils (Bld) [#/Vol] 0.04 10*3/uL <0.11 k/uL [facility] Basophils/100 WBC (Bld) 0.4 % [facility] Differential cell count method Nom (Bld) Auto [facility] Eosinophils (Bld) [#/Vol] 0.20 10*3/uL <0.46 k/uL [facility] Eosinophils/100 WBC (Bld) 2.2 % [facility] Erythrocyte distribution width (RBC) [Ratio] 14.8 % 11.5 - 15.0 % [facility] Hematocrit (Bld) [Volume fraction] 39.1 % 36.0 - 46.0 % [facility] Hemoglobin (Bld) [Mass/Vol] 12.2 g/dL 11.5 - 15.5 g/dL [facility] Immature Gran % 0.4 % [facility] Lymphocytes (Bld) [#/Vol] 2.17 10*3/uL 1.00 - 4.00 k/uL [facility] Lymphocytes/100 WBC (Bld) 23.5 % [facility] MCH (RBC) [Entitic mass] 28.6 pg 26.0 - 34.[address] [facility] MCHC (RBC) [Mass/Vol] 31.2 g/dL 30.5 - 36.0 g/dL [facility] MCV (RBC) [Entitic vol] 91.6 fL 80.0 - 100.[address] [facility] Monocytes (Bld) [#/Vol] 0.70 10*3/uL <0.87 k/uL [facility] Monocytes/100 WBC (Bld) 7.6 % [facility] Neutrophils (Bld) [#/Vol] 6.10 10*3/uL 1.45 - 7.50 k/uL [facility] Neutrophils/100 WBC (Bld) 65.9 % [facility] Nucleated RBC (Bld) [#/Vol] 10*3/uL <0.01 k/uL [facility] Nucleated RBC/100 WBC (Bld) [Ratio] 0.0 /[address] [facility] Platelet mean volume (Bld) [Entitic vol] 9.7 fL 9.0 - 12.[address] [facility] Platelets (Bld) [#/Vol] 302 10*3/uL 150 - 400 k /uL [facility] RBC (Bld) [#/Vol] 4.27 10*6/uL 3.90 - 5.2 0 m/uL [facility] WBC (Bld) [#/Vol] 9.25 10*3/uL 3.70 - 11. 00 k/uL [facility] Comprehensive metabolic 2000 panelon 02-12-2022 Albumin [Mass/Vol] 4.4 g/dL 3.9 - 4.9 g/dL [facility] ALP [Catalytic activity/Vol] 98 U/L 34 - 123 U/L [facility] ALT [Catalytic activity/Vol] 29 U/L 7 - 38 U/L [facility] Anion gap [Moles/Vol] 12 mmol/L 9 - 18 mmol/L [facility] AST [Catalytic activity/Vol] 36 U/L High 13 - 35 U/L [facility] Bilirubin [Mass/Vol] 0.4 mg/dL 0.2 - 1 .3 mg/dL [facility] Calcium [Mass/Vol] 9.5 mg/dL 8.5 - 10. 2 mg/dL [facility] Chloride [Moles/Vol] 105 mmol/L 97 - 10 5 mmol/L [facility] CO2 [Moles/Vol] 24 mmol/L 22 - 30 mmol/L [facility] Creatinine [Mass/Vol] 0.64 mg/dL 0.58 - 0.96 mg/dL [facility] Estimated Glomerular Filtration Rate 93 mL/min/1.73m >=60 mL/min/1.73m [facility] Glucose [Mass/Vol] 88 mg/dL 74 - 99 mg/dL [facility] Potassium [Moles/Vol] 4.3 mmol/L 3.7 - 5.1 mmol/L [facility] Protein [Mass/Vol] 6.8 g/dL 6.3 - 8.0 g/dL [facility] Sodium [Moles/Vol] 141 mmol/L 136 - 144 mmol/L [facility] Urea nitrogen [Mass/Vol] 18 mg/dL 7 - 21 mg/dL [facility] Lipid 1996 panelon 2 Cholesterol [Mass/Vol] 129 mg/dL <200 mg/dL [facility] Cholesterol in HDL [Mass/Vol] 35 mg/dL Low >39 mg/dL [facility] Cholesterol in LDL [Mass/Vol] 46 mg/dL <100 mg/dL [facility] Cholesterol in LDL/Cholesterol in HDL [Mass ratio] 1.31 {ratio} <2.[address] [facility] Cholesterol in VLDL [Mass/Vol] 48 mg/dL High <30 mg/dL [facility] Cholesterol non HDL [Mass/Vol] 94 mg/dL <130 mg/dL [facility] Cholesterol.total/Emilie sterol in HDL [Mass ratio] 3.69 {ratio} <5.[address] [facility] Fasting Time [address] [facility] Triglyceride [Mass/Vol] 242 mg/dL High <150 mg/dL [facility] MAGNESIUM [facility] 02-12-2022 Magnesium [Mass/Vol] 1.8 mg/dL 1.7 - 2 .3 mg/dL [facility] TSH [facility] 02-12-2022 TSH Qn 2.120 m[IU]/L 0.270 - 4.200 mIU/L [facility] Urinalysis complete panel (U )on 02-12-2022 Bacteria LM.HPF (Urine sed) [#/Area] Rare Abnormal None Seen /HPF [facility] Bilirubin Ql (U) Negative Negative [facility] Clarity (Unsp spec) Slightly Cloudy Abnormal Clear [facility] Color (U) Yellow Yellow [facility] Epithelial cells LM.HPF (Urine sed) [#/Area] Few [facility] Glucose Test strip (U) [Mass/Vol] Negative Negative [facility] Hemoglobin Ql (U) Negative Negative [facility] Ketones Ql (U) Negative Negative [facility] Leukocyte esterase Test strip Ql (U) 1+ Abnormal Negative [facility] Nitrite Ql (U) Positive Abnormal Negative [facility] pH (U) 7.0 [pH] 5.0 - 8.[address] [facility] Protein (U) [Mass/Vol] 1+ Abnormal Negative [facility] RBC LM.HPF (Urine sed) [#/Area] 0-3 /HPF 0-3 /HPF [facility] Specific gravity (U) [Rel density] 1.020 1.005 - 1.[address] [facility] Urobilinogen Ql (U) Negative Negative [facility] WBC LM.HPF (Urine sed) [#/Area] 6-10 /HPF Abnormal 0-5 /HPF [facility] PT Progress Noteon 2 PT Progress Note [...] fracture, use gait belt to and from [employer]. Treatment Time in clinic started at 10:47 am Time in clinic ended at 11:31 am Total time in clinic is 44 minutes. Total timed code time is 38 minutes. Therapeutic exercise (85180): timed minutes 8, units 1 . GAIT BELT USED FROM [employer] Stepper, seat 5, arms10, Lv 4 [...] 2x10 reps Mini Squats 1x15. Neuromuscular Re-education (45841): timed minutes 30, units 2 . GAIT BELT USED FROM [employer] AND WITH GAIT AND NMR Performed at [...] code time is 42 minutes. Therapeutic exercise (95031):. GAIT BELT USED FROM [employer] NO THER EX THIS DATE 02/04/22 [employer] [...] 2x10 reps Mini Squats 1x15. Neuromuscular Re-education (75254): timed minutes 42, units 3 . GAIT BELT USED FROM [employer] AND WITH GAIT AND NMR Performed at [...] of mo (more content not included)... Normal [employer] PT Progress Noteon 2 PT Progress Note [...] code time is 38 minutes. Therapeutic exercise (98922): timed minutes 13, units 1 . GAIT BELT USED FROM [employer] Stepper, seat 5, arms10, Lv 4 [...] reps P Mini Squats 1x15. Neuromuscular Re-education (74959): timed minutes 25, units 2 . GAIT BELT USED FROM [employer] AND WITH GAIT AND NMR Performed at [facility] this date 01/28/2022 - Feet together on [...] as nee (more content not included)... Normal [facility] [facility] Urinalysis complete panel (U )on 01-22-2022 Bacteria LM.HPF (Urine sed) [#/Area] Many Abnormal None Seen /H[facility] Ql (U) Negative Negative [facility] Clarity (Unsp spec) Clear [facility] Color (U) Yellow Yellow [facility] Epithelial cells LM.HPF (Urine sed) [#/Area] Few [facility] Glucose Test strip (U) [Mass/Vol] Negative Negative [facility] Hemoglobin Ql (U) Negative Negative [facility] Hyaline casts (Urine sed) [#/Area] /[LPF] Abnormal 0 /LPF [facility] Ketones Ql (U) Negative Negative [facility] Leukocyte esterase Test strip Ql (U) Negative Negative [facility] Nitrite Ql (U) 2+ Abnormal Negative [facility] pH (U) 6.5 [pH] 5.0 - 8.[address] [facility] Protein (U) [Mass/Vol] Trace Abnormal Negative [facility] RBC LM.HPF (Urine sed) [#/Area] 3-5 /HPF Abnormal 0-3 /HPF [facility] Specific gravity (U) [Rel density] 1.019 1.005 - 1.[address] [facility] Urobilinogen Ql (U) Negative Negative [facility] WBC LM.HPF (Urine sed) [#/Area] 0-5 /HPF 0-5 /HPF [facility] PT Progress Noteon 2 PT Progress Note [...] code time is 40 minutes. Therapeutic exercise (51087): timed minutes 15, units 1 . NuStep [...] Ext x 15 reps . Neuromuscular Re-education (46618): timed minutes 25, units 2 . - [...] sec hold (more content not included)... Normal [employer] [facility] Re-eval Noteon 01-09 Therapy Re-eval Note [...] code time is 40 minutes. Therapeutic exercise (06633): timed minutes 15, units 1 . NuStep [...] Ext x 15 reps . Neuromuscular Re-education (97042): timed minutes 25, units 2 . - [...] code time is 38 minutes. Therapeutic exercise (76062): timed minutes 38, units 2 . NuStep [...] x 15 reps N . Neuromuscular Re-education (66527):. X today - Feet together on airex [...] Dec 30 2021 11:24AM EST (Author) Normal [employer] PT Progress Noteon 2 PT Progress Note [...] code time is 40 minutes. Therapeutic exercise (11206): timed minutes 29, units 2 . NuStep [...] heel raises x 15 reps. Neuromuscular Re-education (76596): units 1 . - Feet together on [...] yesterday due to PET scan up in [place]. Home program performing as directed: Yes. Precautions: Fall Risk: moderate has T10 fracture. Treatment Time in clinic started at 11:30 am Time in clinic ended at 12:11 pm Total time in clinic is 41 minutes. Total timed code time is 39 minutes. Therapeutic exercise (49062): timed minutes 29, units 3 . NuStep [...] heel raises x 15 reps. Neuromuscular Re-education (11932): units 1 . - Feet together on [...] [Mass/Vol] 88 mg/dL 74 - 99 mg/dL [facility] NM PET/CT SKULL-THIGH SUBSEQ UENTon 12-22-[address] [facility] PT Progress Noteon 2 PT Progress Note [...] code time is 38 minutes. Therapeutic exercise (07875): timed minutes 28, units 2 . Sci [...] raises x 15 reps N. Neuromuscular Re-education (60871): timed minutes 10, units 1. Provided today: education . edu on proper form and speed of movement with ex's. Pt demonstrated good understanding. 'Scores and Scales' Signatures Electronically signed by : Christiano Cardoza, PT; Dec 18 2021 1:59PM EST (Author) Normal [employer] PT Initial Evaluationon 04-0 PT Initial Evaluation [...] is motivated to participate in PT. At evri, instructed pt in seated LE strengthening exercise [...] in feet. Was at son's house in [place] - went into bedroom to get item from suitcase. Fell backward and hit her head. Was able to get up on her own from her fall. Doesn't recall fall. Thought she was just fine; however, she had a concussion ([id number] brought her to hospital). Neurologist ordered MRI [...] Bacteria identified Cx Nom (U) Abnormal [facility] Work Phone: Cult, Urineon 11-05-2021 Bacteria identified Cx Nom (U) Abnormal [facility] Work Phone: XR HIP BILAT 5V PEL/AP/LAT E ACH HIPon 2020 IMPRESSION: 1. Moderate narrowing of the RIGHT hip joint 2. Extremely large amount of fecal debris in the colon [employer] Teacher: JUDITH Transcribe Date/Time: 2020 2:31P Dictated by : HENRY FORTE DO This examination was interpreted and the report reviewed and electronically signed by: HENRY FORTE DO on 2020 2:32PM [facility] DIVISION OF RADIOLOGY * * *Final Report* [...] dislocations are seen. DIVISION OF RADIOLOGY Provider, [facility] * * *Final Report* * [...] amount of fecal debris in the colon [employer] Teacher: JUDITH Transcribe Date/Time: 2020 2:31P Dictated by : HENRY FORTE DO This examination was interpreted and the report reviewed and electronically signed by: HENRY FORTE DO on 2020 2:32PM EST [facility] Radiology Study observation (narrative) [facility] XR HIP BILAT 5V PEL/AP/LAT E ACH HIPOrdered By: Ccf Provider on [address] [facility] C Urineon 05-13-2019 C Urine Final Report: Rare Normal skin phu isolated to date Normal [facility] Comment on above: Performed By: #### 2 [id number] #### PEYTON RemHemo [address] [place] [phone] UA Completeon 05-11-2019 Color (U) Yellow Normal Yellow [facility] Comment on above: Performed By: #### 2 188911 #### PEYTON RemHemo [address] [place] [phone] Glucose (U) [Mass/Vol] Negative Normal Negative [facility] Comment on above: Performed By: #### 2 035480 #### PEYTON RemHemo [address] [place] [phone] Ketones Ql (U) Negative Normal Negative [facility] Comment on above: Performed By: #### 2 650789 #### PEYTON RemHemo [address] [place] [address] UA Blood Negative Normal Negative [facility] Comment on above: Performed By: #### 2 947575 #### PEYTON RemHemo [address] [place] [address] UA Clarity SltCloudy Abnormal Clear [facility] Comment on above: Performed By: #### 2 517852 #### PEYTON RemHemo [address] [place] [address] UA Leuk Est 2+ Abnormal Negative [facility] Comment on above: Performed By: #### 2 166654 #### PEYTON RemHemo [address] [place] [address] UA Mucous Trace Abnormal Trace [facility] Comment on above: Performed By: #### 2 402789 #### PEYTON RemHemo [address] [place] [address] UA Nitrite Negative Normal Negative [facility] Comment on above: Performed By: #### 2 335981 #### PEYTON LomasHemo [address] [place] [address] UA pH 5.0 Normal 4.6-8.0 [facility] Comment on above: Performed By: #### 2 382193 #### PEYTON LomasHemo [address] [place] [phone] UA Protein 1+ Abnormal Negative [facility] Comment on above: Performed By: #### 2 006838 #### PEYTON LomasHemo [address] [place] [address] UA Spec Grav 1.024 Normal 1.003-1.030 [facility] Comment on above: Performed By: #### 2 811458 #### PEYTON LomasHemo [address] [phone] UA Squam Epithelial 0-5 Normal 0-5 [facility] Comment on above: Performed By: #### 2 001312 #### PEYTON LomasHemo [address] [place] [address] UA Urobilinogen 2.0 mg/dL Abnormal [facility] Comment on above: Result Comment: Due to a manufacturing issue, low positive urobilinogen results may be fasely positive. Correlate with urine bilirubin and additional clinical/laboratory findings to assess the risk of hemolytic anemia or liver disease. If clinically indicated, repeat testing with an alternate method is available by contacting the laboratory within 24 hours. Performed By: #### 2 731466 #### PEYTON LomasHemo [address] [place] [phone] UA WBC 20-50 Abnormal 0-5 [facility] Comment on above: Performed By: #### 2 818590 #### PEYTON LomasHemo [facility] [place] [phone] Urobilinogen Qn (U) Negative Normal Negative [facility] Comment on above: Performed By: #### 2 000985 #### PEYTON LomasHemo [address] [phone] [address] Head or Brain w/o Contras ton 12-13-2018 CT Head or Brain w/o Contrast Exam Date/Time: 12/13/2018 13:08 EDT Reason for Exam: SYNCOPE;Syncope Report STUDY: CT Head or Brain w/o Contrast; 12/13/2018 1:08 pm INDICATION: Syncope. COMPARISON: 08/12/2018 ACCESSION NUMBER(S): [id number] ORDERING CLINICIAN: Jimmy Pizarro TECHNIQUE: Noncontrast axial [...] by: Horacio Vargas MD Technologist: MM Normal [facility] Auto Diffon 12-09-2018 Basophils (Bld) [#/Vol] 0.1 E3/mcL Normal 0.0-0.2 [facility] Comment on above: Order Comment: Order Added by Discern Expert. Performed By: #### 2 905264 #### PEYTON RemHemo [facility] [place] [phone] Basophils/100 WBC (Bld) 1.3 % Normal 0.0-2.0 [facility] Comment on above: Order Comment: Order Added by Discern Expert. Performed By: #### 2 666508 #### PEYTON RemHemo [facility] [place] [address] Eos Absolute 0.2 E3/mcL Normal 0.0-0.7 [facility] Comment on above: Order Comment: Order Added by Discern Expert. Performed By: #### 2 145408 #### PEYTON LomasHemo [address] [place] [address] Eosinophils/100 WBC (Bld) 3.7 % Normal 0.0-11.0 [facility] Comment on above: Order Comment: Order Added by Discern Expert. Performed By: #### 2 823520 #### PEYTON LomasHemo [address] [place] [address] Lymphocytes (Bld) [#/Vol] 0.7 E3/mcL Low 1.2-3.4 [facility] Comment on above: Order Comment: Order Added by Discern Expert. Performed By: #### 2 012248 #### PEYTON LomasHemo [address] [place] [address] Lymphocytes/100 WBC (Bld) 17.2 % Low 20.0-55.0 [facility] Comment on above: Order Comment: Order Added by Discern Expert. Performed By: #### 2 526012 #### PEYTON LomasHemo [address] [place] [address] Pender Absolute 0.4 E3/mcL Normal 0.0-0.7 [facility] Comment on above: Order Comment: Order Added by Discern Expert. Performed By: #### 2 076537 #### PEYTON LomasHemo [address] [place] [address] Monocytes/100 WBC (Bld) 9.6 % Normal 0.0-10.0 [facility] Comment on above: Order Comment: Order Added by Discern Expert. Performed By: #### 2 686923 #### PEYTON LomasHemo [address] [place] [address] Neutro Absolute 2.8 E3/mcL Normal 1.4-6.5 [facility] Comment on above: Order Comment: Order Added by Discern Expert. Performed By: #### 2 339471 #### PEYTON LomasHemo [address] [place] [address] Neutro Auto 68.2 % Normal 37.0-75.0 [facility] Comment on above: Order Comment: Order Added by Discern Expert. Performed By: #### 2 736269 #### PEYTON LomasHemo [address] [place] [address] CBC w/ Auto Diffon 04-12-201 9 Erythrocyte distribution width (RBC) [Ratio] 17.6 % High 11.5-14.5 [facility] Comment on above: Performed By: #### 2 794503 ####PEYTON Gtzo[address] [place] [address] Hematocrit (Bld) [Volume fraction] 30.1 % Low 36.0-48.0 [facility] Comment on above: Performed By: #### 2 880938 ####PEYTON [address]zo[address] [place] [address] Hemoglobin (Bld) [Mass/Vol] 9.7 g/dL Low 12.0-16.0 [facility] Comment on above: Performed By: #### 2 635854 ####PEYTON [address]zo[address] [place] [address] MCH (RBC) [Entitic mass] 25.2 pg Low 27.0-31.0 [facility] Comment on above: Performed By: #### 2 500260 ####PEYTON [address]zo[address] [place] [address] MCHC (RBC) [Mass/Vol] 32.1 g/dL Low 33.0-37.0 [facility] Comment on above: Performed By: #### 2 735135 ####PEYTON [address] [place] [address] MCV (RBC) [Entitic vol] 78.4 fL Normal 78.0-100.0 [facility] Comment on above: Performed By: #### 2 291952 ####PEYTON [address]zo[address] [place] [address] Platelet mean volume (Bld) [Entitic vol] 7.5 fL Normal 7.4-11.0 [facility] Comment on above: Performed By: #### 2 048717 ####PEYTON [address]WloBoat[address] [place] [address] Platelets (Bld) [#/Vol] 331 E3/mcL Normal 130-400 [facility] Comment on above: Performed By: #### 2 880623 ####PEYTON [address]FdaCjej[address] [place] [address] RBC (Bld) [#/Vol] 3.84 E6/mcL Low 3.90-5.40 [facility] Comment on above: Performed By: #### 2 697267 ####PEYTON [address]WdfUvnc4151 [place] [address] WBC (Bld) [#/Vol] 4.0 E3/mcL Normal 3.6-11.0 [facility] Comment on above: Performed By: #### 2 280065 ####PEYTON [address]xRkms[address] [place] [address] CMPon 12-09-2018 Albumin [Mass/Vol] 3.7 g/dL Normal 3.4-5.0 [facility] Comment on above: Performed By: #### 2 902262 ####PYETON [address] [place] [address] Albumin/Globulin [Mass ratio] 1.2 {ratio} Normal 1.1-1.9 [facility] Comment on above: Performed By: #### 2 560052 ####PEYTON LuqSixx[address] [place] [address] Alk Phos 70 Int._Unit/L Normal 33-136 [facility] Comment on above: Performed By: #### 2 417150 ####PEYTON [address]Jucw32[address] [place] [address] ALT [Catalytic activity/Vol] 25 Int._Unit/L Normal 7-45 [facility] Comment on above: Performed By: #### 2 759958 ####PEYTONBerna JohnsonSdcSjou7348 [place] [address] Anion gap [Moles/Vol] 13 mmol/L Normal 10-20 [facility] Comment on above: Performed By: #### 2 252669 ####PEYTONBerna JohnsonVlnMhyf6575 [place] [address] AST [Catalytic activity/Vol] 37 Int._Unit/L Normal 9-39 [facility] Comment on above: Performed By: #### 2 942807 ####PEYTONBerna JohnsonNfuPsxw5990 [place] [address] Bili Total 0.25 mg/dL Normal 0.00-1.20 [facility] Comment on above: Performed By: #### 2 713766 ####PEYTON KllTsiw37[address] [place] [address] Calcium [Mass/Vol] 9.5 mg/dL Normal 8.6-10.3 [facility] Comment on above: Performed By: #### 2 871809 ####PEYTON [address]mqRtgy9653 [place] [address] Chloride [Moles/Vol] 102 mmol/L Normal 98-107 [facility] Comment on above: Performed By: #### 2 112014 ####PEYTON SsjXdky9154 [place] [address] CO2 [Moles/Vol] 28.0 mmol/L Normal 21.0-32.0 [facility] Comment on above: Performed By: #### 2 907761 ####PEYTON KhlPbxd3068 [place] [address] Creatinine [Mass/Vol] 0.9 mg/dL Normal 0.5-1.1 [facility] Comment on above: Performed By: #### 2 389484 ####PEYTON DftIgxa0385 [place] [address] Globulin (S) [Mass/Vol] 3.0 g/dL Normal 2.0-4.0 [facility] Comment on above: Performed By: #### 2 549624 ####PEYTON VuiAknf[address] [place] [address] Glucose [Mass/Vol] 138 mg/dL High 70-99 [facility] Comment on above: Performed By: #### 2 281967 ####PEYTON LveIitb1310 [place] [address] Potassium [Moles/Vol] 3.4 mmol/L Low 3.5-5.3 [facility] Comment on above: Performed By: #### 2 624455 ####PEYTON RvcZjal8372 [place] [address] Protein [Mass/Vol] 6.9 g/dL Normal 6.4-8.2 [facility] Comment on above: Performed By: #### 2 322803 ####PEYTON MigVsbp6003 [place] [address] Sodium [Moles/Vol] 139 mmol/L Normal 136-145 [facility] Comment on above: Performed By: #### 2 897780 ####PEYTON XqeVxth2645 [place] [address] Urea nitrogen [Mass/Vol] 19 mg/dL Normal 6-23 [facility] Comment on above: Performed By: #### 2 259882 ####PEYTON GqaAkkn3484 [place] [address] Urea nitrogen/Creatinine [Mass ratio] 21.1 ratio Normal 5.4-30.0 [facility] Comment on above: Performed By: #### 2 777744 ####PEYTON IudVesz[address]447 [place] [address] Morphon 12-09-2018 Hypochromasia 1+ Normal [facility] Comment on above: Order Comment: Order Added by Discern Expert. Performed By: #### 1 [id number] ####PEYTON PttBpek5626 [place] [address] RBC morphology finding Nom (Bld) SEE MORPHOLOGY Normal [facility] Comment on above: Order Comment: Order Added by Discern Expert. Performed By: #### 1 [id number] ####PEYTON WqiXomb1455 [place] [address] Sed Rate Automatedon 019 Sed Rate Automated 62 mm/hr Normal [facility] Comment on above: Result Comment: AGE- SPECIFIC REFERENCE RANGES FOR SEDIMENTATION RATE AUTOMATED REFERENCE RANGE - MM/HR AGE MEN WOMEN 0-2 0-2 - PUBERTY 3-13 3-13 PUBERTY - 50 YRS 0-15 0-20 > 50 YRS 0-20 0-30 Performed By: #### 1 [id number] ####PEYTON Hematology Manual [address] [place] [address] TSHon 12-09-2018 TSH Qn 4.21 mcIU/mL Normal 0.30-5.60 [facility] Comment on above: Performed By: #### 2 016584 #### PEYTON RemHemo [address] [place] [address] Vit B12on 12-09-2018 Cobalamin (Vitamin B12) [Mass/Vol] 379 pg/mL Normal 180-914 [facility] Comment on above: Performed By: #### 2 509012 #### PEYTON RemHemo [address] [place] [address] eGFRon 12-09-2018 GFR/1.73 sq M predicted among non-blacks MDRD (S/P/Bld) [Vol rate/Area] mL/min/{1.73_m2} Normal [facility] Comment on above: Order Comment: Order added by Discern Expert. Performed By: #### 1 [id number] ####PEYTON [address]bzJwcd6676 [place] [address] zzplt morphon 12-09-2018 Platelet morphology finding Nom (Bld) NORMAL Normal [facility] Comment on above: Performed By: #### 2 491322 #### PEYTON LomasHemo [facility] [place] [address] Platelets (Bld) [#/Vol] NORMAL Normal [facility] Comment on above: Performed By: #### 2 031874 #### PEYTON RemHemo [facility] [place] [address] Lab Miscellaneouson 12-09-19 19 Status See Ref Lab Report Normal [facility] Comment on above: Performed By: #### 1 [id number] ####PEYTON Send Outs [address]sssr[address] [place] [address] Lab Miscellaneouson 12-03-19 19 Test Name LC TEST [id number] Normal [facility] Comment on above: Performed By: #### 1 [id number] ####PEYTON Send Outs [address]zhf[address] [place] [address] Auto Diffon 12-01-2018 Basophils (Bld) [#/Vol] 0.1 E3/mcL Normal 0.0-0.2 [facility] Comment on above: Order Comment: Order Added by Discern Expert. Performed By: #### 2 494738 ####PEYTON KgxIcpv5914 [place] [address] Basophils/100 WBC (Bld) 0.7 % Normal 0.0-2.0 [facility] Comment on above: Order Comment: Order Added by Discern Expert. Performed By: #### 2 061512 ####PEYTON QlyIvwh8357 [place] [address] Eos Absolute 0.1 E3/mcL Normal 0.0-0.7 [facility] Comment on above: Order Comment: Order Added by Discern Expert. Performed By: #### 2 422688 ####PEYTON Gtzo[address] [place] [address] Eosinophils/100 WBC (Bld) 1.0 % Normal 0.0-11.0 [facility] Comment on above: Order Comment: Order Added by Discern Expert. Performed By: #### 2 834717 ####PEYTON [address]zo[address] [place] [address] Lymphocytes (Bld) [#/Vol] 0.8 E3/mcL Low 1.2-3.4 [facility] Comment on above: Order Comment: Order Added by Discern Expert. Performed By: #### 2 214246 ####PEYTON [address]zo[address] [place] [address] Lymphocytes/100 WBC (Bld) 10.0 % Low 20.0-55.0 [facility] Comment on above: Order Comment: Order Added by Discern Expert. Performed By: #### 2 419747 ####PEYTON [address] [place] [address] Pender Absolute 0.9 E3/mcL High 0.0-0.7 [facility] Comment on above: Order Comment: Order Added by Discern Expert. Performed By: #### 2 558098 ####PEYTON [address]zo[address] [place] [address] Monocytes/100 WBC (Bld) 11.0 % High 0.0-10.0 [facility] Comment on above: Order Comment: Order Added by Discern Expert. Performed By: #### 2 904954 ####PEYTON LomasEalErlr0909 [place] [address] Neutro Absolute 6.5 E3/mcL Normal 1.4-6.5 [facility] Comment on above: Order Comment: Order Added by Discern Expert. Performed By: #### 2 229926 ####PEYTON LomasMqaDwxz3591 [place] [address] Neutro Auto 77.3 % High 37.0-75.0 [facility] Comment on above: Order Comment: Order Added by Discern Expert. Performed By: #### 2 104116 ####PEYTON [address]zo[address] [place] [address] CBC w/ Auto Diffon 9 Erythrocyte distribution width (RBC) [Ratio] 17.3 % High 11.5-14.5 [facility] Comment on above: Performed By: #### 2 474567 ####PEYTON [address]zo[address] [place] [address] Hematocrit (Bld) [Volume fraction] 29.8 % Low 36.0-48.0 [facility] Comment on above: Performed By: #### 2 451098 ####PEYTON [address]zo[address] [place] [address] Hemoglobin (Bld) [Mass/Vol] 9.6 g/dL Low 12.0-16.0 [facility] Comment on above: Performed By: #### 2 785269 ####PEYTON [address]zo[address] [place] [address] MCH (RBC) [Entitic mass] 25.7 pg Low 27.0-31.0 [facility] Comment on above: Performed By: #### 2 400156 ####PEYTON G[address]zo[address] [place] [address] MCHC (RBC) [Mass/Vol] 32.1 g/dL Low 33.0-37.0 [facility] Comment on above: Performed By: #### 2 897440 ####PEYTON [address]zo[address] [place] [address] MCV (RBC) [Entitic vol] 79.8 fL Normal 78.0-100.0 [facility] Comment on above: Performed By: #### 2 577610 ####PEYTON [address]zo[address] [place] [address] Platelet mean volume (Bld) [Entitic vol] 7.5 fL Normal 7.4-11.0 [facility] Comment on above: Performed By: #### 2 176976 ####PEYTON [address] [place] [address] Platelets (Bld) [#/Vol] 328 E3/mcL Normal 130-400 [facility] Comment on above: Performed By: #### 2 679534 ####PEYTON [address] [place] [address] RBC (Bld) [#/Vol] 3.73 E6/mcL Low 3.90-5.40 [facility] Comment on above: Performed By: #### 2 041224 ####PEYTON G[address]zo[address] [place] [address] WBC (Bld) [#/Vol] 8.4 E3/mcL Normal 3.6-11.0 [facility] Comment on above: Performed By: #### 2 145033 ####PEYTON G[address]zo[address] [place] [address] CMPon 12-01-2018 Albumin [Mass/Vol] 3.8 g/dL Normal 3.4-5.0 [facility] Comment on above: Performed By: #### 2 684510 ####PEYTON LtqOfjf2704 [place] [address] Albumin/Globulin [Mass ratio] 1.4 {ratio} Normal 1.1-1.9 [facility] Comment on above: Performed By: #### 2 837715 ####PEYTON MxaWqww5053 [place] [address] Alk Phos 63 Int._Unit/L Normal 33-136 [facility] Comment on above: Performed By: #### 2 097879 ####PEYTONBerna JohnsonSqxKklg2708 [place] [address] ALT [Catalytic activity/Vol] 15 Int._Unit/L Normal 7-45 [facility] Comment on above: Performed By: #### 2 884808 ####PEYTONBerna LomasMyjZmjg1037 [place] [address] Anion gap [Moles/Vol] 6 mmol/L Low 10-20 [facility] Comment on above: Performed By: #### 2 093596 ####PEYTONBerna JohnsonJjlMnpg9912 [place] [address] AST [Catalytic activity/Vol] 26 Int._Unit/L Normal 9-39 [facility] Comment on above: Performed By: #### 2 767893 ####PEYTON ZhuLeat1684 [place] [address] Bili Total 0.34 mg/dL Normal 0.00-1.20 [facility] Comment on above: Performed By: #### 2 324536 ####PEYTON UqjZwiu7427 [place] [address] Calcium [Mass/Vol] 9.7 mg/dL Normal 8.6-10.3 [facility] Comment on above: Performed By: #### 2 787197 ####PEYTON EntZchn0883 [place] [address] Chloride [Moles/Vol] 100 mmol/L Normal 98-107 [facility] Comment on above: Performed By: #### 2 124091 ####PEYTON HjfTjwn6678 [place] [address] CO2 [Moles/Vol] 36.0 mmol/L High 21.0-32.0 [facility] Comment on above: Performed By: #### 2 567515 ####PEYTON AdlXnxt0286 [place] [address] Creatinine [Mass/Vol] 1.0 mg/dL Normal 0.5-1.1 [facility] Comment on above: Performed By: #### 2 280278 ####PEYTON EpfTcbl5939 [place] [address] Globulin (S) [Mass/Vol] 3.0 g/dL Normal 2.0-4.0 [facility] Comment on above: Performed By: #### 2 [id number] ####PEYTON RriFtxj7564 [place] [address] Glucose [Mass/Vol] 127 mg/dL High 70-99 [facility] Comment on above: Performed By: #### 2 [id number] ####PEYTON LbmYaeg9723 [place] [address] Potassium [Moles/Vol] 3.4 mmol/L Low 3.5-5.3 [facility] Comment on above: Performed By: #### 2 010646 ####PEYTONBerna LomasCghTrik0384 [place] [address] Protein [Mass/Vol] 6.6 g/dL Normal 6.4-8.2 [facility] Comment on above: Performed By: #### 2 541557 ####PEYTON KdnRvaz0158 [place] [address] Sodium [Moles/Vol] 138 mmol/L Normal 136-145 [facility] Comment on above: Performed By: #### 2 627922 ####PEYTON GmuOspc4506 [place] [address] Urea nitrogen [Mass/Vol] 22 mg/dL Normal 6-23 [facility] Comment on above: Performed By: #### 2 611650 ####PEYTON HunPcem3638 [place] [address] Urea nitrogen/Creatinine [Mass ratio] 22.0 ratio Normal 5.4-30.0 [facility] Comment on above: Performed By: #### 2 314643 ####PEYTON JhuKzbp5214 [place] [address] CTA Cheston 12-01-2018 CTA Chest Exam Date/Time: 12/01/2018 16:39 EDT Reason for Exam: Pulmonary Emboli (PE) Report STUDY: CTA Chest; 12/01/2018 4:39 pm INDICATION: 73 y/o F with Pulmonary Emboli (PE). Pulmonary Emboli (PE). Generalized fatigue, poor appetite COMPARISON: None. ACCESSION NUMBER(S): [id number] ORDERING CLINICIAN: Israel Miller TECHNIQUE: CT was [...] by: Medhat Chavez MD Technologist: AM, Normal [facility] D-Dimeron 12-01-2018 D-Dimer 1816.00 ng/mL Critically abnormal <=500.00 [facility] Comment on above: Result Comment: Crit ical result successfully called to and read back by Blanca Short at 12/01/2018 16:12:38 EDT and reported by [facility]. When the concentration of D-dimer is below the technical support intern's cutoff, 500 ng/mL FEU, it may be possible to exclude the diagnosis of DVT and PE in conjunction with a clinical pretest probability assessment. Performed By: #### 2 [id number] ####PEYTON ZcoHfpx2505 [place] [address] Magnesiumon 12-01-2018 Magnesium [Mass/Vol] 1.7 mg/dL Normal 1.6-2.4 [facility] Comment on above: Performed By: #### 2 055860 ####PEYTON JujUqfz5362 [place] [address] Troponin-Ion 12-01-2018 Troponin I.cardiac [Mass/Vol] 0.01 ng/mL Normal .00-.03 [facility] Comment on above: Performed By: #### 2 [id number] ####PEYTON HdlYqcb8050 [place] [address] UA Completeon 12-01-2018 Color (U) Mason Abnormal Yellow [facility] Comment on above: Performed By: #### 8 [id number] ####PEYTON Urinalysis Automated Htxwlfotcw3312 [place] [address] Glucose (U) [Mass/Vol] Negative Normal Negative NEA [facility] Comment on above: Performed By: #### 8 [id number] ####PEYTON Urinalysis Automated Ywfkddcket3768 [place] [address] Ketones Ql (U) Negative Normal Negative [facility] Comment on above: Performed By: #### 8 [id number] ####PEYTON Urinalysis Automated Xqfrlzofjs5640 [place] [address] RBC (U) [#/Vol] 0-3 Normal 0-3 [facility] Comment on above: Performed By: #### 8 [id number] ####PEYTON Urinalysis Automated Tovgtqkvpn0447 [place] [address] UA Blood Negative Normal Negative [facility] Comment on above: Performed By: #### 8 [id number] ####PEYTON Urinalysis Automated Mghmswszgk4389 [place] [address] UA Amorph Gabriella Trace Abnormal None [facility] Comment on above: Performed By: #### 8 [id number] ####PEYTON Urinalysis Automated [address] [place] [address] UA Ascorbic Acid 20 mg/dL High <=19 [facility] Comment on above: Performed By: #### 8 2000411 ####PEYTON Urinalysis Automated Ieaipwfvtf7530 [place] [address] UA Clarity SltCloudy Abnormal Clear [facility] Comment on above: Performed By: #### 8 [id number] ####PEYTON Urinalysis Automated Difdytewlb3282 [place] [address] UA Leuk Est Negative Normal Negative [facility] Comment on above: Performed By: #### 8 [id number] ####PEYTON Urinalysis Automated Vytrulkbjf7342 [place] [address]32[address] UA Nitrite Negative Normal Negative [facility] Comment on above: Performed By: #### 8 1151909 ####PEYTON Urinalysis Automated Zfakjiqfgy4458 [place] [address] UA pH 6.0 Normal 4.6-8.0 [facility] Comment on above: Performed By: #### 8 [id number] ####PEYTON Urinalysis Automated Erollrjkaj8271 [place] 1232805 UA Protein Negative Normal Negative [facility] Comment on above: Performed By: #### 8 3270810 ####PEYTON Urinalysis Automated Drpponfs[address] [place], [place] [id number] UA Spec Grav 1.019 Normal 1.003-1.030 [facility] Comment on above: Performed By: #### 8 [id number] ####PEYTON Urinalysis Automated Lvfnjcx[address] [place] [address] UA Urobilinogen Negative Normal [facility] Comment on above: Result Comment: Due to a manufacturing issue, low positive urobilinogen results may be fasely positive. Correlate with urine bilirubin and additional clinical/laboratory findings to assess the risk of hemolytic anemia or liver disease. If clinically indicated, repeat testing with an alternate method is available by contacting the laboratory within 24 hours. Performed By: #### 8 [id number] ####PEYTON Urinalysis Automated Aoxovwkhol[address] [place] [address] UA WBC 0-5 Normal 0-5 [facility] Comment on above: Performed By: #### 8 6113511 ####PEYTON Urinalysis Automated [address]ivqbqzqog[address] [place] [address] Urobilinogen Qn (U) Negative Normal Negative [facility] Comment on above: Performed By: #### 8 7333064 ####PEYTON Urinalysis Automated Jnzoakpklw[address] [place] [address] eGFRon 12-01-2018 GFR/1.73 sq M predicted among non-blacks MDRD (S/P/Bld) [Vol rate/Area] mL/min/{1.73_m2} [facility] Comment on above: Order Comment: Order added by Discern Expert. Performed By: #### 1 [id number] ####PEYTON RdnIlel3941 [place] 1232805 GFR/1.73 sq M predicted among non-blacks MDRD (S/P/Bld) [Vol rate/Area] 55 mL/min/1.73 m2 [facility] Comment on above: Order Comment: Order added by Discern Expert. Performed By: #### 1 [id number] ####PEYTON BicNblr4743 [place] [address] CT CERVICAL SPINE W/O CONTRA STon 08-17-2018 CT CERVICAL SPINE W/O CONTRAST Performed at [facility] APPROVED BY: Huey Moreno MD EXAMINATION: [...] patient's medical history is indicated. , Normal [email or web address] CT HEAD W/O CONTRASTon 08-17 CT HEAD W/O CONTRAST Performed at [facility] APPROVED BY: Huey Moreno MD EXAMINATION: [...] CT evidence of acute intracranial injury. Normal [facility] Cult Urineon 08-17-2018 Cult Urine Test performed at [facility] ORGANISM: Pseudomonas aeruginosa (ID: 1) >100,000 CFU/ml Normal [facility] Comment on above: Performed By: #### C _URI ####[place] [address] Hemogram/Diffon 08-17-2018 Abs. Baso 0.04 thou/cmm Normal 0.00-0.08 [facility] Comment on above: Performed By: #### L CBCD ####[place] [address] Abs. Pender 0.54 thou/cmm Normal 0.20-1.00 [facility] Comment on above: Performed By: #### L CBCD ####[place] [address] Abs. Neut (ANC) 3.98 thou/cmm Normal 3.00-5.67 [facility] Comment on above: Performed By: #### L CBCD ####[place] [address] Basophils/100 WBC Auto (Bld) 0.7 % Normal [facility] Comment on above: Performed By: #### L CBCD ####[place] [address] Eosinophils Auto #/vol (Bld) 0.05 thou/cmm Normal 0.00-0.41 [facility] Comment on above: Performed By: #### L CBCD ####[address] [address] Eosinophils/100 WBC Auto (Bld) 0.9 % Normal [facility] Comment on above: Performed By: #### L CBCD ####[address] [address] Erythrocyte distribution width Auto Ratio (RBC) 12.0 % Normal 11.5-15.9 [facility] Comment on above: Performed By: #### L CBCD ####[address] [address] Hematocrit Auto Volume Fraction (Bld) 35.6 % Low 37.0-47.0 [facility] Comment on above: Performed By: #### L CBCD ####[address] [address] Hemoglobin mass conc (Bld) 11.3 g/dL Low 12.0-16.0 [facility] Comment on above: Performed By: #### L CBCD ####[address] [address] Lymphocytes Auto #/vol (Bld) 1.19 thou/cmm Low 1.50-3.65 [facility] Comment on above: Performed By: #### L CBCD ####[address] [address] Lymphocytes/100 WBC Auto (Bld) 20.6 % Normal [facility] Comment on above: Performed By: #### L CBCD ####[address] [address] MCH Auto Entitic mass (RBC) 30.2 pg Normal 27.0-31.0 [facility] Comment on above: Performed By: #### L CBCD ####[address] [address] MCHC Auto mass conc (RBC) 31.7 % Low 32.0-36.0 [facility] Comment on above: Performed By: #### L CBCD ####[address] [address] MCV Auto Entitic volume (RBC) 95.2 fL Normal 81.0-99.0 [facility] Comment on above: Performed By: #### L CBCD ####[place] [address] Monocytes/100 WBC Auto (Bld) 9.3 % Normal [facility] Comment on above: Performed By: #### L CBCD ####[place] [address] Platelet mean volume Auto Entitic volume (Bld) 9.5 fL Normal 7.1-10.5 [facility] Comment on above: Performed By: #### L CBCD ####[place] [address] Platelets Auto #/vol (Bld) 237 thou/cmm Normal 150-400 [facility] Comment on above: Performed By: #### L CBCD ####[place] [address] RBC Auto #/vol (Bld) 3.74 mil/cmm Low 4.20-5.40 [facility] Comment on above: Performed By: #### L CBCD ####[place] [address] Seg Neutrophil 68.5 % Normal [facility] Comment on above: Performed By: #### L CBCD ####[place] [address] WBC Auto #/vol (Bld) 5.8 thou/cmm Normal 4.8-10.8 [facility] Comment on above: Performed By: #### L CBCD ####[place] [address] Troponin Ion 08-17-2018 Troponin I.cardiac mass conc ng/mL Normal <=0.07 [facility] Comment on above: Performed By: #### L TRP ####[place] [address] Urinalysis Routineon 018 Appearance Nom (U) CLEAR Normal [facility] Comment on above: Performed By: #### L URIN ####[place] [address] Bacteria LM.HPF #/area (Urine sed) MANY Abnormal None [facility] Comment on above: Performed By: #### L URIN ####[place] [address] Bilirubin Urine Negative Normal Negative [facility] Comment on above: Performed By: #### L URIN ####[place] [address] Color Nom (U) YELLOW Normal [facility] Comment on above: Performed By: #### L URIN ####[place] [address] Ep Cells Urine 0-2 Normal 0-5 [facility] Comment on above: Performed By: #### L URIN ####[place] [address] Glucose Ql (U) Negative Normal Negative [facility] Comment on above: Performed By: #### L URIN ####[place] [address] Hemoglobin,Urine TRACE-INTACT Abnormal Negative [facility] Comment on above: Performed By: #### L URIN ####[place] [address] Ketone Urine Negative Normal Negative [facility] Comment on above: Performed By: #### L URIN ####[place] [address] Leukocytes Esterase Negative Normal Negative [facility] Comment on above: Performed By: #### L URIN ####[place] [address] Nitrites Urine Positive Abnormal Negative [facility] Comment on above: Performed By: #### L URIN ####[place] [address] pH Test strip (U) 5.5 [pH] Normal 5.0-8.0 [facility] Comment on above: Performed By: #### L URIN ####[place] [address] Protein Urine 1+ Abnormal Negative [facility] Comment on above: Performed By: #### L URIN ####[place] [address] RBC LM.HPF #/area (Urine sed) 0-3 Normal 0-3 [facility] Comment on above: Performed By: #### L URIN ####[place] [address] Specific Phillips, Ur 1.020 Normal 1.005-1.030 [facility] Comment on above: Performed By: #### L URIN ####[place] [address] Urobilinogen,Ur 0.2 EU/dL Normal 0.0-1.0 [facility] Comment on above: Performed By: #### L URIN ####[place] [address] WBC LM.HPF #/area (Urine sed) 1-3 Normal 0-5 [facility] Comment on above: Performed By: #### L URIN ####[place] [address] C Urineon 08-15-2018 C Urine Final Report: >100,000 cfu/ml Pseudomonas aeruginosa ORGANISM: PA SUSCEPTIBILITY RESULTS Antibiotic CRYSTAL Dilutn CRYSTAL Interp ORGANISM: PA Ceftaz : <=1 S Cipro : <=1 S Gent : <=4 S Levo : <=2 S Hardeep : <=1 S Pip/Jj : <=16 S Tobra : <=4 S Normal [facility] Comment on above: Performed By: #### 2 [id number] ####PEYTON Microbiology [address] [place] [address] Auto Diffon 08-12-2018 Basophils (Bld) [#/Vol] 0.1 E3/mcL Normal 0.0-0.2 [facility] Comment on above: Order Comment: Order Added by Discern Expert. Performed By: #### 2 694831 #### PEYTON RemHemo [address] [place] [address] Basophils/100 WBC (Bld) 1.1 % Normal 0.0-2.0 [facility] Comment on above: Order Comment: Order Added by Discern Expert. Performed By: #### 2 763224 #### PEYTON RemHemo [address] [place] [address] Eos Absolute 0.1 E3/mcL Normal 0.0-0.7 [facility] Comment on above: Order Comment: Order Added by Discern Expert. Performed By: #### 2 967445 #### PEYTON RemHemo [address] [place] [address] Eosinophils/100 WBC (Bld) 1.0 % Normal 0.0-11.0 [facility] Comment on above: Order Comment: Order Added by Discern Expert. Performed By: #### 2 977026 #### PEYTON RemHemo [address] [place] [address] Lymphocytes (Bld) [#/Vol] 1.3 E3/mcL Normal 1.2-3.4 [facility] Comment on above: Order Comment: Order Added by Discern Expert. Performed By: #### 2 264642 #### PEYTON RemHemo [address] [place] [address] Lymphocytes/100 WBC (Bld) 18.9 % Low 20.0-55.0 [facility] Comment on above: Order Comment: Order Added by Discern Expert. Performed By: #### 2 537175 #### PEYTON RemHemo [address] [place] [address] Pender Absolute 0.6 E3/mcL Normal 0.0-0.7 [facility] Comment on above: Order Comment: Order Added by Discern Expert. Performed By: #### 2 207023 #### PEYTON RemHemo [address] [place] [address] Monocytes/100 WBC (Bld) 8.1 % Normal 0.0-10.0 [facility] Comment on above: Order Comment: Order Added by Discern Expert. Performed By: #### 2 984329 #### PEYTON RemHemo [address] [place] [address] Neutro Absolute 4.9 E3/mcL Normal 1.4-6.5 [facility] Comment on above: Order Comment: Order Added by Discern Expert. Performed By: #### 2 787099 #### PEYTON RemHemo [address] [place] [address] Neutro Auto 70.9 % Normal 37.0-75.0 [facility] Comment on above: Order Comment: Order Added by Discern Expert. Performed By: #### 2 605930 #### PEYTON RemHemo [address] [place] [address] BMPon 08-12-2018 Anion gap [Moles/Vol] 12 mmol/L Normal 10-20 [facility] Comment on above: Performed By: #### 2 920672 #### PEYTON RemChem [address] [place] [address] Calcium [Mass/Vol] 9.1 mg/dL Normal 8.6-10.3 [facility] Comment on above: Performed By: #### 2 908636 #### PEYTON RemChem [address] [place] [address] Chloride [Moles/Vol] 109 mmol/L High 98-107 [facility] Comment on above: Performed By: #### 2 207108 #### PEYTON RemChem [address] [place] [address] CO2 [Moles/Vol] 25.0 mmol/L Normal 21.0-32.0 [facility] Comment on above: Performed By: #### 2 513990 #### PEYTON RemChem [address] [place] [address] Creatinine [Mass/Vol] 0.6 mg/dL Normal 0.5-1.1 [facility] Comment on above: Performed By: #### 2 703670 #### PEYTON RemChem [address] [place] [address] Glucose [Mass/Vol] 108 mg/dL High 70-99 [facility] Comment on above: Performed By: #### 2 086972 #### PEYTON RemChem [address] [place] [address] Potassium [Moles/Vol] 3.7 mmol/L Normal 3.5-5.3 [facility] Comment on above: Performed By: #### 2 840312 #### PEYTON RemChem [address] [place] [address] Sodium [Moles/Vol] 142 mmol/L Normal 136-145 [facility] Comment on above: Performed By: #### 2 353706 #### PEYTON RemChem [address] [place] [address] Urea nitrogen [Mass/Vol] 15 mg/dL Normal 6-23 [facility] Comment on above: Performed By: #### 2 138324 #### PEYTON RemChem [address] [place] [address] Urea nitrogen/Creatinine [Mass ratio] 25.0 ratio Normal 5.4-30.0 [facility] Comment on above: Performed By: #### 2 869846 #### PEYTON RemChem [facility] [place] [address] CBC w/ Auto Diffon 8 Erythrocyte distribution width (RBC) [Ratio] 12.5 % Normal 11.5-14.5 [facility] Comment on above: Performed By: #### 2 462242 #### PEYTON RemHemo [address] [place] [address] Hematocrit (Bld) [Volume fraction] 33.7 % Low 36.0-48.0 [facility] Comment on above: Performed By: #### 2 480715 #### PEYTON RemHemo [address] [place] [address] Hemoglobin (Bld) [Mass/Vol] 11.0 g/dL Low 12.0-16.0 [facility] Comment on above: Performed By: #### 2 489680 #### PEYTON RemHemo [address] [place] [address] MCH (RBC) [Entitic mass] 30.6 pg Normal 27.0-31.0 [facility] Comment on above: Performed By: #### 2 662393 #### PEYTON RemHemo [address] [place] [address] MCHC (RBC) [Mass/Vol] 32.6 g/dL Low 33.0-37.0 [facility] Comment on above: Performed By: #### 2 784984 #### PEYTON RemHemo [address] [place] [address] MCV (RBC) [Entitic vol] 93.7 fL Normal 78.0-100.0 [facility] Comment on above: Performed By: #### 2 953930 #### PEYTON LomasHemo [address] [place] [address] Platelet mean volume (Bld) [Entitic vol] 7.3 fL Low 7.4-11.0 [facility] Comment on above: Performed By: #### 2 840193 #### PEYTON RemHemo [address] [place] [address] Platelets (Bld) [#/Vol] 211 E3/mcL Normal 130-400 [facility] Comment on above: Performed By: #### 2 832004 #### PEYTON LomasHemo [address] [place] [address] RBC (Bld) [#/Vol] 3.60 E6/mcL Low 3.90-5.40 [facility] Comment on above: Performed By: #### 2 110569 #### PEYTON LomasHemo [facility] [place] [address] WBC (Bld) [#/Vol] 6.9 E3/mcL Normal 3.6-11.0 [facility] Comment on above: Performed By: #### 2 167955 #### PEYTON LomasHemo [facility] [place] [address] CT Head or Brain w/o Contras ton [...] mental status; Trauma. COMPARISON: None. ACCESSION NUMBER(S): [id number]; [id number] ORDERING CLINICIAN: Winter Beltre TECHNIQUE: Noncontrast axial [...] 08/12/2018 06:25 EST by Gregory Berry DO [facility] CT Spine Cervical w/o Contra ston 08-12-2018 [...] mental status; Trauma. COMPARISON: None. ACCESSION NUMBER(S): [id number]; [id number] ORDERING CLINICIAN: Winter Beltre TECHNIQUE: Noncontrast axial [...] am Signed by: Gregory Berry DO Technologist: [facility] Report last revised on 08/12/2018 06:25 EST by Gregory eBrry DO Normal [facility] Hep Func Panelon 08-12-2018 Albumin [Mass/Vol] 4.1 g/dL Normal 3.4-5.0 [facility] Comment on above: Performed By: #### 2 534602 ####PEYTON UesFxzj3253 [place] [address] Albumin/Globulin [Mass ratio] 2.0 {ratio} High 1.1-1.9 [facility] Comment on above: Performed By: #### 2 022195 ####PEYTON Johnson[address] [place] [address] Alk Phos 66 Int._Unit/L Normal 33-136 [facility] Comment on above: Performed By: #### 2 154582 ####PEYTON Johnson[address] [place] [address] ALT [Catalytic activity/Vol] 17 Int._Unit/L Normal 7-45 [facility] Comment on above: Performed By: #### 2 803447 ####PEYTON Johnson[address] [place] [address] AST [Catalytic activity/Vol] 22 Int._Unit/L Normal 9-39 [facility] Comment on above: Performed By: #### 2 823042 ####PEYTON Johnson[address] [place] [address] Bili Direct 0.07 mg/dL Normal 0.00-0.30 [facility] Comment on above: Performed By: #### 2 747793 ####PEYTON ZgmHuxu2303 [place] [address] Bili Indirect 0.22 mg/dL Normal [facility] Comment on above: Result Comment: No e stablished ranges available for the indirect bilirubin Performed By: #### 2 840753 ####PEYTON Johnson[address] [place] [address] Bili Total 0.29 mg/dL Normal 0.00-1.20 [facility] Comment on above: Performed By: #### 2 062388 ####EPYTON AurExlq3485 [place] [address] Globulin (S) [Mass/Vol] 2.0 g/dL Normal 2.0-4.0 [facility] Comment on above: Performed By: #### 2 874900 ####PEYTON BfnAcrx2527 [place] [address] Protein [Mass/Vol] 6.2 g/dL Low 6.4-8.2 [facility] Comment on above: Performed By: #### 2 415563 ####PEYTON GqwVukz5021 [place] [address] Lactic Acidon 08-12-2018 Lactate [Moles/Vol] 2.1 mmol/L High 0.4-2.0 [facility] Comment on above: Performed By: #### 2 737656 ####PEYTON YyvEhzd3445 [place] [address] PTon 08-12-2018 INR Coag (PPP) [Relative time] 1.0 {INR} Normal 1.0-1.2 [facility] Comment on above: Result Comment: INR Recommended Therapeuptic Ranges: Prophylaxis/treatment of DVT and PE?2.0-3.0 Prevention of systemic embolism?.2.0-3.0 Mechanical prosthetic values?2.5-3.5 CRITICAL VALUES?.>4.0 Performed By: #### 2 413063 #### PEYTON Hematology Automated Subsection [address] [place] [address] PT Coag (PPP) [Time] 12.6 second(s) Normal 11.6-14.6 [facility] Comment on above: Performed By: #### 2 952823 #### PEYTON Hematology Automated Subsection [address] [place] [address] PTTon 08-12-2018 aPTT Coag (Bld) [Time] 24.9 second(s) Normal 23.2-36.4 [facility] Comment on above: Performed By: #### 2 277526 #### PE[facility] Hematology Automated Subsection [address] [place] [address] PTT Control Ratioon 08-12-20 18 PTT Ratio 0.8 ratio Normal 0.8-1.2 [facility] Comment on above: Order Comment: Order added by Discern Expert. Performed By: #### 8 [id number] #### PE[facility] Hematology Automated Subsection [address] [place], [place] [address] Troponin-Ion 08-12-2018 Troponin I.cardiac [Mass/Vol] ng/mL Normal .00-.03 [facility] Comment on above: Performed By: #### 2 299914 #### PEYTON RemHemo [address] [place] [address] UA Completeon 08-12-2018 Color (U) Yellow Normal Yellow [facility] Comment on above: Order Comment: Strai ght Cath as needed Performed By: #### 8 [id number] ####PEYTON Urinalysis Automated [address]hamj[address] [place] [address] Glucose (U) [Mass/Vol] Negative Normal Negative NEA [facility] Comment on above: Order Comment: Strai ght Cath as needed Performed By: #### 8 [id number] ####PEYTON Urinalysis Automated I[address]opzbmte3616 [place] [address] Ketones Ql (U) Negative Normal Negative [facility] Comment on above: Order Comment: Strai ght Cath as needed Performed By: #### 8 [id number] ####PEYTON Urinalysis Automated Kyblehuhiv8005 [place] [address] RBC (U) [#/Vol] 3-5 Abnormal 0-3 [facility] Comment on above: Order Comment: Strai ght Cath as needed Performed By: #### 8 [id number] ####PEYTON Urinalysis Automated Vckhrlmndu6930 [place] [address] UA Blood 1+ Abnormal Negative [facility] Comment on above: Order Comment: Strai ght Cath as needed Performed By: #### 8 [id number] ####PEYTON Urinalysis Automated Mkpduhnosh7482 [place] [address] UA Bacteria Trace Abnormal None [facility] Comment on above: Order Comment: Strai ght Cath as needed Performed By: #### 8 0468989 ####PEYTON Urinalysis Automated Bhvqbxmesk0795 [place] [address] UA Clarity Clear Normal Clear [facility] Comment on above: Order Comment: Strai ght Cath as needed Performed By: #### 8 [id number] ####PEYTON Urinalysis Automated Phruzngbas2349 [place] [address] UA Leuk Est 3+ Abnormal Negative [facility] Comment on above: Order Comment: Strai ght Cath as needed Performed By: #### 8 [id number] ####PEY[facility] Urinalysis Automated Odysfalvbf[address]99 [place] [address] UA Nitrite Negative Normal Negative [facility] Comment on above: Order Comment: Strai ght Cath as needed Performed By: #### 8 [id number] ####[facility]inal[facility] [id number] [place] [address] UA pH 5.0 Normal 4.6-8.0 [facility] Comment on above: Order Comment: Strai ght Cath as needed Performed By: #### [id number] ####[facility] [id number] [place] [address] UA Protein Negative Normal Negative [facility] Comment on above: Order Comment: Strai ght Cath as needed Performed By: #### [id number] ####[facility] [place] [address] UA Spec Grav 1.013 Normal 1.003-1.030 [facility] Comment on above: Order Comment: Strai ght Cath as needed Performed By: #### [id number] ####[facility]inal[facility] [id number] [place] [address] UA Squam Epithelial 0-5 Normal 0-5 [facility] Comment on above: Order Comment: Strai ght Cath as needed Performed By: #### [id number] ####[facility]inalysis [facility] [id number] [place] [address] UA Transitional Epithelial 0-2 Normal 0-2 [facility] Comment on above: Order Comment: Strai ght Cath as needed Performed By: #### [id number] ####[facility] [id number] [place] [address] UA Urobilinogen Negative Normal [facility] Comment on above: Order Comment: [...] within 24 hours. Performed By: #### 8 [id number] ####[facility] [id number] [place] [address] UA WBC 10-20 Abnormal 0-5 [facility] Comment on above: Order Comment: Strai ght Cath as needed Performed By: #### [id number] ####[facility]inalysis [facility] [id number] [place] [id number] Urobilinogen Qn (U) Negative Normal Negative [facility] Comment on above: Order Comment: Strai ght Cath as needed Performed By: #### 8 [id number] ####[facility] [id number] [place] [id number] eGFRon 08-12-2018 GFR/1.73 sq M predicted among non-blacks MDRD (S/P/Bld) [Vol rate/Area] mL/min/{1.73_m2} Normal [facility] Comment on above: Order Comment: Order added by Discern Expert. Performed By: #### 1 [id number] ####[facility] [id number] [place] [id number] XR Ankle 3+ Views Righton XR Ankle 3+ Views Right Exam Date/Time: 06/13/2018 12:08 EDT Reason for Exam: Fall Report STUDY: XR Ankle 3+ Views Right; 06/13/2018 12:08 pm INDICATION: Fall. COMPARISON: None. ACCESSION NUMBER(S): [id number] ORDERING CLINICIAN: Milton Orosco FINDINGS: The lateral [...] by: Stiven Zurita MD Technologist: TRD Normal [facility] COVID-19 virus antigen assay SARS-CoV-2 (COVID-19) Ag IA.rapid Ql (Resp) Work Phone: FUNDUS PHOTOS OU (BOTH EYES) [facility] Influenza virus A and B and SARS-CoV-2 (COVID-19) Ag panel - Upper respiratory specim SARS-CoV-2 (COVID-19) RNA NURYS+probe Ql (Resp) Work Phone: Laboratory - Microbiology an d Antimicrobial susceptibility Respiratory pathogens DNA and RNA 12b panel NURYS+probe (Unsp spec) Work Phone: Stool gastrointestinal hemog lobin detection by immunologic method Lower GI hemoglobin IA Ql (Stl) Work Phone: Vital Signs Date Time Vital Sign Value Performing Clinician Facility 02-13-2025 14:05-0400 Diastolic blood pressure 76 mm[Hg] Bahman Ann DO Work Phone: [facility] 02-13-2025 14:05-0400 Heart rate 72 /min Bahman Horacio DO Work Phone: [facility] 02-13-2025 14:05-0400 Respiratory rate 16 /min Bahman Ann DO Work Phone: [facility] 02-13-2025 14:05-0400 SaO2% (BldA) [Mass fraction] 96 % Bahman Ann DO Work Phone: [facility] 02-13-2025 14:05-0400 Systolic blood pressure 134 mm[Hg] Bahman Horacio DO Work Phone: [facility] 02-13-2025 12:15-0400 Body height 152.4 cm Bahman Ann DO Work Phone: [facility] 02-13-2025 12:15-0400 Body mass index (BMI) [Ratio] 19.53 kg/m2 Bahman Horacio DO Work Phone: [facility] 02-13-2025 12:15-0400 Body temperature 98.71 [degF] Bahman Horacio DO Work Phone: [facility] 02-13-2025 12:15-0400 Body weight 45.36 kg Bahman Ann DO Work Phone: [facility] 08-19-2024 13:42-0500 Diastolic blood pressure 84 mm[Hg] Terry Espino MD Work Phone: [facility] 08-19-2024 13:42-0500 Heart rate 93 /min Terry Espino MD Work Phone: [facility] 08-19-2024 13:42-0500 Respiratory rate 18 /min Terry Espino MD Work Phone: [facility] 08-19-2024 13:42-0500 SaO2% (BldA) [Mass fraction] 93 % Terry Espino MD Work Phone: [facility] 08-19-2024 13:42-0500 Systolic blood pressure 160 mm[Hg] Terry Espino MD Work Phone: [facility] 08-19-2024 12:06-0500 Body height 152.4 cm Terry Espion MD Work Phone: [facility] 08-19-2024 12:06-0500 Body mass index (BMI) [Ratio] 20.51 kg/m2 Terry Espino MD Work Phone: [facility] 08-19-2024 12:06-0500 Body temperature 98.01 [degF] Terry Espino MD Work Phone: [facility] 08-19-2024 12:06-0500 Body weight 47.63 kg Terry sEpino MD Work Phone: [facility] 08-17-2024 14:31-0500 Body height 152.4 cm Lindsey Crisostomo APRN-TUFTING MACHINE FIXER Work Phone: [facility] 08-17-2024 14:31-0500 Body mass index (BMI) [Ratio] 20.51 kg/m2 Lindsey Crisostomo APRN-TUFTING MACHINE FIXER Work Phone: [facility] 08-17-2024 14:31-0500 Body temperature 98.01 [degF] Lindsey Crisostomo DYNAMITE RECLAIMER-TUFTING MACHINE FIXER Work Phone: 6(004)871-435128 [place] [address] 08-17-2024 14:31-0500 Body weight 47.63 kg Lindsey Crisostomo DYNAMITE RECLAIMER-TUFTING MACHINE FIXER Work Phone: 4(448)324-564732 [place] [address] 08-17-2024 14:31-0500 Diastolic blood pressure 82 mm[Hg] Lindsey Crisostomo DYNAMITE RECLAIMER-TUFTING MACHINE FIXER Work Phone: 6(847)373-997632 [place] [address] 08-17-2024 14:31-0500 Heart rate 81 /min Lindsey Crisostomo DYNAMITE RECLAIMER-TUFTING MACHINE FIXER Work Phone: 6(786)729-635132 [place] [address] 08-17-2024 14:31-0500 Respiratory rate 14 /min Lindsey Crisostomo DYNAMITE RECLAIMER-TUFTING MACHINE FIXER Work Phone: 0(078)330-624832 [place] [address] 08-17-2024 14:31-0500 SaO2% (BldA) [Mass fraction] 94 % Lindsey Crisostomo DYNAMITE RECLAIMER-TUFTING MACHINE FIXER Work Phone: 4(379)805-933632 [place] [address] 08-17-2024 14:31-0500 Systolic blood pressure 164 mm[Hg] Lindsey Crisostomo DYNAMITE RECLAIMER-TUFTING MACHINE FIXER Work Phone: 9(094)455-522332 [place] [address] 08-08-2024 13:11-0500 Body height 152.4 cm Lindsey Crisostomo DYNAMITE RECLAIMER-TUFTING MACHINE FIXER Work Phone: 7(731)040-608532 [place] [address] 08-08-2024 13:11-0500 Body mass index (BMI) [Ratio] 21.09 kg/m2 Lindsey Crisostomo DYNAMITE RECLAIMER-TUFTING MACHINE FIXER Work Phone: 1(060)170-429832 [place] [address] 08-08-2024 13:11-0500 Body temperature 98.01 [degF] Lindsey Crisostomo DYNAMITE RECLAIMER-TUFTING MACHINE FIXER Work Phone: 4(630)530-969232 [place] [address] 08-08-2024 13:11-0500 Body weight 48.99 kg Lindsey Crisostomo DYNAMITE RECLAIMER-TUFTING MACHINE FIXER Work Phone: 0(014)460-319932 [place] [address] 08-08-2024 13:11-0500 Diastolic blood pressure 66 mm[Hg] Lindsey Crisostomo DYNAMITE RECLAIMER-TUFTING MACHINE FIXER Work Phone: [facility] 08-08-2024 13:11-0500 Heart rate 79 /min Lindsey Crisostomo DYNAMITE RECLAIMER-TUFTING MACHINE FIXER Work Phone: [facility] 08-08-2024 13:11-0500 Respiratory rate 18 /min Lindsey Mosesey DYNAMITE RECLAIMER-TUFTING MACHINE FIXER Work Phone: [facility] 08-08-2024 13:11-0500 SaO2% (BldA) [Mass fraction] 98 % Lindsey Crisostomo DYNAMITE RECLAIMER-TUFTING MACHINE FIXER Work Phone: [facility] 08-08-2024 13:11-0500 Systolic blood pressure 153 mm[Hg] Lindsey Crisostomo DYNAMITE RECLAIMER-TUFTING MACHINE FIXER Work Phone: [facility] 02-25-2024 18:00-0400 Diastolic blood pressure 87 mm[Hg] Bahman Downschristina DO Work Phone: [facility] 02-25-2024 18:00-0400 Heart rate 77 /min Bahman Downschristina DO Work Phone: [facility] 02-25-2024 18:00-0400 Respiratory rate 17 /min Bahman Downschristina DO Work Phone: [facility] 02-25-2024 18:00-0400 SaO2% (BldA) [Mass fraction] 94 % Bahman Downschristina DO Work Phone: [facility] 02-25-2024 18:00-0400 Systolic blood pressure 167 mm[Hg] Bahman Lemasters DO Work Phone: [facility] 02-25-2024 13:01-0400 Body height 152.4 cm Bahman Downschristina DO Work Phone: [facility] 02-25-2024 13:01-0400 Body mass index (BMI) [Ratio] 19.92 kg/m2 Bahman Ann DO Work Phone: [facility] 02-25-2024 13:01-0400 Body temperature 97.81 [degF] Bahman Ann DO Work Phone: [facility] 02-25-2024 13:01-0400 Body weight 46.27 kg Bahman Ann DO Work Phone: [facility] 02-17-2024 08:55-0400 Body mass index (BMI) [Ratio] 20.11 kg/m2 Terry Espino MD Work Phone: [facility] 02-17-2024 08:55-0400 Body temperature 97 [degF] Terry Espino MD Work Phone: [facility] 02-17-2024 08:55-0400 Body weight 46.7 kg Terry Espino MD Work Phone: [facility] 02-17-2024 08:55-0400 Diastolic blood pressure 79 mm[Hg] Terry Espino MD Work Phone: [facility] 02-17-2024 08:55-0400 Heart rate 106 /min Terry Espino MD Work Phone: [facility] 02-17-2024 08:55-0400 Respiratory rate 18 /min Terry Espino MD Work Phone: [facility] 02-17-2024 08:55-0400 SaO2% (BldA) [Mass fraction] 95 % Terry Espino MD Work Phone: [facility] 02-17-2024 08:55-0400 Systolic blood pressure 144 mm[Hg] Terry Espino MD Work Phone: [facility] 02-09-2024 15:08-0400 Diastolic blood pressure 83 mm[Hg] Franklin Salmon MD Work Phone: [facility] 02-09-2024 15:08-0400 Systolic blood pressure 128 mm[Hg] Franklin Salmon MD Work Phone: [facility] 12-27-2023 14:33-0400 Body height 152.4 cm Pacc 1 Work Phone: [facility] 12-27-2023 14:33-0400 Body mass index (BMI) [Ratio] 20.31 kg/m2 Pacc 1 Work Phone: [facility] 12-27-2023 14:33-0400 Body temperature 98.91 [degF] Pacc 1 Work Phone: [facility] 12-27-2023 14:33-0400 Body weight 47.17 kg Pacc 1 Work Phone: [facility] 12-27-2023 14:33-0400 Diastolic blood pressure 70 mm[Hg] Pacc 1 Work Phone: [facility] 12-27-2023 14:33-0400 Heart rate 69 /min Pacc 1 Work Phone: [facility] 12-27-2023 14:33-0400 Respiratory rate 14 /min Pacc 1 Work Phone: [facility] 12-27-2023 14:33-0400 SaO2% (BldA) [Mass fraction] 98 % Pacc 1 Work Phone: [facility] 12-27-2023 14:33-0400 Systolic blood pressure 128 mm[Hg] Pacc 1 Work Phone: [facility] 12-13-2023 11:09-0400 Body mass index (BMI) [Ratio] 20.02 kg/m2 Terry Espino MD Work Phone: [facility] 12-13-2023 11:09-0400 Body temperature 97.3 [degF] Terry Espino MD Work Phone: [facility] 12-13-2023 11:09-0400 Body weight 46.5 kg Terry Espino MD Work Phone: [facility] 12-13-2023 11:09-0400 Diastolic blood pressure 82 mm[Hg] Terry Espino MD Work Phone: [facility] 12-13-2023 11:09-0400 Heart rate 90 /min Terry Espino MD Work Phone: [facility] 12-13-2023 11:09-0400 Respiratory rate 18 /min Terry Espino MD Work Phone: [facility] 12-13-2023 11:09-0400 SaO2% (BldA) [Mass fraction] 93 % Terry Espino MD Work Phone: [facility] 12-13-2023 11:09040 Systolic blood pressure 126 mm[Hg] Terry Espino MD Work Phone: [facility] 11-18-2023 13:39-0400 Body height 152.4 cm Franklin Salmon MD Work Phone: [facility] 11-18-2023 13:39-0400 Body weight 48.26 kg Franklin Salmon MD Work Phone: [facility] 10-06-2023 10:13-0500 Body height 152.4 cm Franklin Salmon MD Work Phone: [facility] 10-06-2023 10:13-0500 Body weight 49.4 kg Franklin Salmon MD Work Phone: [facility] 10-06-2023 10:13-0500 Diastolic blood pressure 80 mm[Hg] Franklin Salmon MD Work Phone: [facility] 10-06-2023 10:13-0500 Systolic blood pressure 143 mm[Hg] Franklin Salmon MD Work Phone: [facility] 07-09-2023 09:24-0500 Body temperature 99.1 [degF] Dr. Bernardino Min Work Phone: 07-09-2023 09:24-0500 Diastolic blood pressure 72 mm[Hg] Dr. Bernardino Min Work Phone: 07-09-2023 09:24-0500 Heart rate 88 /min Dr. Bernardino Min Work Phone: 07-09-2023 09:24-0500 Respiratory rate 17 /min Dr. Bernardino Min Work Phone: 07-09-2023 09:24-0500 SaO2% (BldA) [Mass fraction] 91 % Dr. Bernardino Min Work Phone: 07-09-2023 09:24-0500 Systolic blood pressure 144 mm[Hg] Dr. Bernardino Min Work Phone: 2(254)599-256808 [place] [address] 07-07-2023 11:43-0500 Body height 152.[address] Bernardino Min Work Phone: 5(175)547-874790 [place] [address] 07-07-2023 11:43-0500 Body weight 50.[address] Bernardino Min Work Phone: 3(340)788-958590 [place] [address] 07-06-2023 10:17-0500 Body mass index (BMI) [Ratio] 21.6 kg/m2 Dr. Bernardino Min Work Phone: 6(007)860-026690 [place] [address] 06-29-2023 11:49-0400 Body temperature 98.2 [degF] Dr. Bernardino Min Work Phone: 1(369)687-854290 [place] [address] 06-29-2023 11:49-0400 Diastolic blood pressure 70 mm[Hg] Dr. Bernardino Min Work Phone: 1(454)797-658708 [place] [address] 06-29-2023 11:49-0400 Heart rate 88 /min Dr. Bernardino Min Work Phone: 1(947)008-939408 [place] [address] 06-29-2023 11:49-0400 Respiratory rate 18 /min Dr. Bernardino Min Work Phone: 5(971)641-345708 [place] [address] 06-29-2023 11:49-0400 SaO2% (BldA) [Mass fraction] 98 % Dr. Bernardino Min Work Phone: 4(914)620-903908 [place] [address] 06-29-2023 11:49-0400 Systolic blood pressure 149 mm[Hg] Dr. Bernardino Min Work Phone: 06-27-2023 10:58-0400 Body height 152.[address] Bernardino Min Work Phone: 06-27-2023 10:58-0400 Body weight [address] Bernardino Min Work Phone: 06-27-2023 00:34-0400 Body mass index (BMI) [Ratio] 20.6 kg/m2 Dr. Bernardino Min Work Phone: 06-27-2023 00:00-0400 Body temperature 98.6 [degF] [facility] 06-27-2023 00:00-0400 Diastolic blood pressure 87 mm[Hg] 06-27-2023 00:00-0400 Heart rate 72 /min [facility] 06-27-2023 00:00-0400 Respiratory rate 18 /min [facility] 06-27-2023 00:00-0400 SaO2% (BldA) [Mass fraction] 94 % 06-27-2023 00:00-0400 Systolic blood pressure 172 mm[Hg] 06-26-2023 21:12-0400 Body mass index (BMI) [Ratio] 22.3 kg/m2 06-26-2023 21:12-0400 Body weight 51.9 kg [facility] 06-26-2023 20:24-0400 Body height 152.4 cm [facility] 06-25-2023 13:29-0400 Body temperature 98.71 [degF] Lab[facility]Port Wstr Work Phone: [facility] 06-25-2023 13:29-0400 Diastolic blood pressure 68 mm[Hg] [facility]str Work Phone: [facility] 06-25-2023 13:29-0400 Heart rate 74 /min [facility] Work Phone: [facility] 06-25-2023 13:29-0400 Systolic blood pressure 152 mm[Hg] [facility]str Work Phone: [facility] 06-11-2023 09:16-0400 Body temperature 97.81 [degF] Treatment Wstr Work Phone: [facility] 06-11-2023 09:16-0400 Body weight 48.76 kg Treatment Wstr Work Phone: [facility] 06-11-2023 09:16-0400 Diastolic blood pressure 84 mm[Hg] Treatment Wstr Work Phone: [facility] 06-11-2023 09:16-0400 Heart rate 83 /min Treatment Wstr Work Phone: [facility] 06-11-2023 09:16-0400 Respiratory rate 16 /min Treatment Wstr Work Phone: [facility] 06-11-2023 09:16-0400 SaO2% (BldA) [Mass fraction] 100 % Treatment Wstr Work Phone: [facility] 06-11-2023 09:16-0400 Systolic blood pressure 148 mm[Hg] Treatment Wstr Work Phone: [facility] 06-11-2023 09:14-0400 Body weight 48.76 kg Lab[facility] Work Phone: [facility] 04-30-2023 11:15-0400 Body height 152.4 cm Malathi Roberts MD Work Phone: [facility] 04-30-2023 11:15-0400 Body temperature 97.81 [degF] Malathi Roberts MD Work Phone: [facility] 04-30-2023 11:15-0400 Body weight 49.17 kg Malathi Roberts MD Work Phone: [facility] 04-30-2023 11:15-0400 Diastolic blood pressure 75 mm[Hg] Malathi Roberts MD Work Phone: [facility] 04-30-2023 11:15-0400 Heart rate 114 /min Malathi Roberts MD Work Phone: [facility] 04-30-2023 11:15-0400 SaO2% (BldA) [Mass fraction] 97 % Malathi Roberts MD Work Phone: [facility] 04-30-2023 11:15-0400 Systolic blood pressure 128 mm[Hg] Malathi Roberts MD Work Phone: [facility] 04-13-2023 18:13-0400 Body height 152 cm Rosmery Ganta Other Phone: [facility] 04-13-2023 18:13-0400 Body temperature 97.34 [degF] Rosmery Ganta Other Phone: [facility] 04-13-2023 18:13-0400 Diastolic blood pressure 61 mm[Hg] Rosmery Ganta Other Phone: [facility] 04-13-2023 18:13-0400 Heart rate 66 /min Rosmery Ganta Other Phone: [facility] 04-13-2023 18:13-0400 Respiratory rate 14 /min Rosmery Ganta Other Phone: [facility] 04-13-2023 18:13-0400 SaO2% (BldA) [Mass fraction] 98 % Rosmery Ganta Other Phone: [facility] 04-13-2023 18:13-0400 Systolic blood pressure 136 mm[Hg] Rosmery Ganta Other Phone: [facility] 03-31-2023 09:46-0400 Body height 152.4 cm Malathi Roberts MD Work Phone: [facility] 03-31-2023 09:46-0400 Body temperature 97.9 [degF] Malathi Roberts MD Work Phone: [facility] 03-31-2023 09:46-0400 Body weight 48.53 kg Malathi Roberts MD Work Phone: [facility] 03-31-2023 09:46-0400 Diastolic blood pressure 82 mm[Hg] Malathi Roberts MD Work Phone: [facility] 03-31-2023 09:46-0400 Heart rate 84 /min Malathi Roberts MD Work Phone: [facility] 03-31-2023 09:46-0400 SaO2% (BldA) [Mass fraction] 96 % Malathi Roberts MD Work Phone: [facility] 03-31-2023 09:46-0400 Systolic blood pressure 147 mm[Hg] Malathi Roebrts MD Work Phone: [facility] 03-12-2023 15:06-0400 Body height 152.4 cm [facility] 03-12-2023 15:06-0400 Body mass index (BMI) [Ratio] 23 kg/m2 03-12-2023 15:06-0400 Body temperature 98.3 [degF] [facility] 03-12-2023 15:06-0400 Body weight 53.4 kg [facility] 03-12-2023 15:06-0400 Diastolic blood pressure 43 mm[Hg] 03-12-2023 15:06-0400 Heart rate 88 /min [facility] 03-12-2023 15:06-0400 Respiratory rate 19 /min [facility] 03-12-2023 15:06-0400 SaO2% (BldA) [Mass fraction] 96 % 03-12-2023 15:06-0400 Systolic blood pressure 144 mm[Hg] 03-12-2023 14:35-0400 Diastolic blood pressure 74 mm[Hg] Treatment Wstr Work Phone: [facility] 03-12-2023 14:35-0400 Heart rate 93 /min Treatment Wstr Work Phone: [facility] 03-12-2023 14:35-0400 Respiratory rate 22 /min Treatment Wstr Work Phone: [facility] 03-12-2023 14:35-0400 SaO2% (BldA) [Mass fraction] 96 % Treatment Wstr Work Phone: [facility] 03-12-2023 14:35-0400 Systolic blood pressure 132 mm[Hg] Treatment Wstr Work Phone: [facility] 03-12-2023 13:13-0400 Body temperature 98.71 [degF] Treatment Wstr Work Phone: [facility] 03-12-2023 13:13-0400 Body weight 49.44 kg Treatment Wstr Work Phone: [facility] 02-26-2023 13:52-0400 Body height 147.7 cm Joseluis Perez MD Work Phone: [facility] 02-26-2023 13:52-0400 Body temperature 97.81 [degF] Joseluis Perez MD Work Phone: [facility] 02-26-2023 13:52-0400 Body weight 48.99 kg Joseluis Perez MD Work Phone: [facility] 02-26-2023 13:52-0400 Diastolic blood pressure 70 mm[Hg] Joseluis Perez MD Work Phone: [facility] 02-26-2023 13:52-0400 Heart rate 73 /min Joseluis Perez MD Work Phone: [facility] 02-26-2023 13:52-0400 Systolic blood pressure 146 mm[Hg] Joseluis Perez MD Work Phone: [facility] 2022 15:09-0400 Body temperature 98.1 [degF] Joseluis Perez MD Work Phone: [facility] 2022 15:09-0400 Body weight 51.89 kg Joseluis Perez MD Work Phone: [facility] 2022 15:09-0400 Diastolic blood pressure 63 mm[Hg] Joseluis Perez MD Work Phone: [facility] 2022 15:09-0400 Heart rate 83 /min Joseluis Perez MD Work Phone: [facility] 2022 15:09-0400 Respiratory rate 15 /min Joseluis Perez MD Work Phone: [facility] 2022 15:09-0400 Systolic blood pressure 139 mm[Hg] Joseluis Perez MD Work Phone: [facility] 10-01-2022 14:43-0500 Body temperature 97.5 [degF] [facility] 10-01-2022 14:43-0500 Body weight 52.61 kg [facility] 10-01-2022 14:43-0500 Diastolic blood pressure 70 mm[Hg] [facility] 10-01-2022 14:43-0500 Heart rate 89 /min [facility] 10-01-2022 14:43-0500 Respiratory rate 16 /min [facility] 10-01-2022 14:43-0500 SaO2% (BldA) [Mass fraction] 98 % [facility] 10-01-2022 14:43-0500 Systolic blood pressure 129 mm[Hg] [facility] 09-19-2022 11:00-0500 Body temperature 97.9 [degF] Rosmery [facility] 09-19-2022 11:00-0500 Diastolic blood pressure 58 mm[Hg] [facility] 09-19-2022 11:00-0500 Heart rate 76 /min [facility] 09-19-2022 11:00-0500 Respiratory rate 16 /min [facility] 09-19-2022 11:00-0500 SaO2% (BldA) [Mass fraction] 94 % [facility] 09-19-2022 11:00-0500 Systolic blood pressure 114 mm[Hg] Rosmery [facility] 09-16-2022 10:48-0500 Body height 152.4 cm Rosmery [facility] 09-16-2022 10:48-0500 Body weight 52.7 kg Rosmery [facility] 09-11-2022 20:04-0500 Body mass index (BMI) [Ratio] 23.4 kg/m2 [facility] 09-11-2022 15:03-0500 Body temperature 98.6 [degF] Rosmery [facility] 09-11-2022 15:03-0500 Diastolic blood pressure 69 mm[Hg] [facility] 09-11-2022 15:03-0500 Heart rate 91 /min [facility] 09-11-2022 15:03-0500 Respiratory rate 18 /min [facility] 09-11-2022 15:03-0500 SaO2% (BldA) [Mass fraction] 93 % [facility] 09-11-2022 15:03-0500 Systolic blood pressure 140 mm[Hg] [facility] 09-11-2022 10:37-0500 Body height 152.4 cm [facility] Work Phone: 09-11-2022 10:37-0500 Body weight 54.7 kg [facility] 09-08-2022 06:00-0500 Inhaled oxygen flow rate 3 L/min [facility] 09-08-2022 02:17-0500 Body mass index (BMI) [Ratio] 24.7 kg/m2 [facility] 09-07-2022 14:18-0500 Body temperature 96.9 [degF] [facility] 09-07-2022 14:18-0500 Diastolic blood pressure 58 mm[Hg] [facility] 09-07-2022 14:18-0500 Heart rate 102 /min Rosmery [facility] 09-07-2022 14:18-0500 Respiratory rate 16 /min Rosmery [facility] 09-07-2022 14:18-0500 SaO2% (BldA) [Mass fraction] 93 % [facility] 09-07-2022 14:18-0500 Systolic blood pressure 127 mm[Hg] Rosmery [facility] 09-04-2022 12:44-0500 Body height 160.02 cm Rosmery [facility] Work Phone: 09-04-2022 12:44-0500 Body weight 55.79 kg [facility] 09-03-2022 20:29-0500 Body temperature 98.1 [degF] [facility] 09-03-2022 20:29-0500 Diastolic blood pressure 61 mm[Hg] [facility] 09-03-2022 20:29-0500 Heart rate 89 /min Rosmery [facility] 09-03-2022 20:29-0500 Respiratory rate 18 /min [facility] 09-03-2022 20:29-0500 SaO2% (BldA) [Mass fraction] 96 % [facility] 09-03-2022 20:29-0500 Systolic blood pressure 126 mm[Hg] Rosmery [facility] 09-01-2022 16:50-0500 Body height 160.02 cm Rosmery [facility] Work Phone: 09-01-2022 16:50-0500 Body weight 50.8 kg Rosmery [facility] 08-31-2022 20:05-0500 Body temperature 98.7 [degF] [facility] Work Phone: 08-31-2022 20:05-0500 Diastolic blood pressure 74 mm[Hg] Work Phone: 08-31-2022 20:05-0500 Heart rate 90 /min [facility] Work Phone: 08-31-2022 20:05-0500 Respiratory rate 17 /min [facility] Work Phone: 08-31-2022 20:05-0500 SaO2% (BldA) [Mass fraction] 99 % Work Phone: 08-31-2022 20:05-0500 Systolic blood pressure 134 mm[Hg] Work Phone: 08-31-2022 18:14-0500 Body mass index (BMI) [Ratio] 21 kg/m2 MD Rosmery Horn 08-31-2022 13:35-0500 Body height 160.02 cm [facility] Work Phone: 08-31-2022 13:35-0500 Body mass index (BMI) [Ratio] 19.8 kg/m2 Work Phone: 08-31-2022 13:35-0500 Body weight 50.8 kg [facility] Work Phone: 08-28-2022 10:42-0500 Body temperature 98.49 [degF] Nelia Maxwell DYNAMITE RECLAIMER.TUFTING MACHINE FIXER Work Phone: [facility] 08-28-2022 10:42-0500 Body weight 50.8 kg Nelia Maxwell DYNAMITE RECLAIMER.TUFTING MACHINE FIXER Work Phone: [facility] 08-28-2022 10:42-0500 Diastolic blood pressure 68 mm[Hg] Nelia Maxwlel DYNAMITE RECLAIMER.TUFTING MACHINE FIXER Work Phone: [facility] 08-28-2022 10:42-0500 Heart rate 75 /min Nelia Maxwell DYNAMITE RECLAIMER.TUFTING MACHINE FIXER Work Phone: [facility] 08-28-2022 10:42-0500 Respiratory rate 16 /min Nelia Maxwell DYNAMITE RECLAIMER.TUFTING MACHINE FIXER Work Phone: [facility] 08-28-2022 10:42-0500 SaO2% (BldA) [Mass fraction] 94 % Nelia Johnsonman DYNAMITE RECLAIMER.TUFTING MACHINE FIXER Work Phone: [facility] 08-28-2022 10:42-0500 Systolic blood pressure 112 mm[Hg] Nelia Johnsonman DYNAMITE RECLAIMER.TUFTING MACHINE FIXER Work Phone: [facility] 08-03-2022 15:36-0500 Body height 152.4 cm Rosmery Horn MD Work Phone: [facility] 08-03-2022 15:36-0500 Body temperature 99.39 [degF] Rosmery Horn MD Work Phone: [facility] 08-03-2022 15:36-0500 Body weight 50.35 kg Rosmery Horn MD Work Phone: [facility] 08-03-2022 15:36-0500 Diastolic blood pressure 52 mm[Hg] Rosmery Horn MD Work Phone: [facility] 08-03-2022 15:36-0500 Heart rate 65 /min Rosmery Horn MD Work Phone: [facility] 08-03-2022 15:36-0500 Respiratory rate 12 /min Rosmery Horn MD Work Phone: [facility] 08-03-2022 15:36-0500 SaO2% (BldA) [Mass fraction] 97 % Rosmery Horn MD Work Phone: [facility] 08-03-2022 15:36-0500 Systolic blood pressure 102 mm[Hg] Rosmery Horn MD Work Phone: [facility] 05-30-2022 08:47-0400 Body weight 50.35 kg Rosmery Horn MD Work Phone: [facility] 05-30-2022 08:47-0400 Diastolic blood pressure 82 mm[Hg] Rosmery Horn MD Work Phone: [facility] 05-30-2022 08:47-0400 Heart rate 88 /min Rosmery Horn MD Work Phone: [facility] 05-30-2022 08:47-0400 Respiratory rate 16 /min Rosmery Horn MD Work Phone: [facility] 05-30-2022 08:47-0400 SaO2% (BldA) [Mass fraction] 94 % Rosmery Horn MD Work Phone: [facility] 05-30-2022 08:47-0400 Systolic blood pressure 130 mm[Hg] Rosmery Horn MD Work Phone: [facility] 04-14-2022 11:35-0400 Body weight 50.8 kg Naya Older DYNAMITE RECLAIMER.TUFTING MACHINE FIXER Work Phone: [facility] 04-14-2022 11:35-0400 Diastolic blood pressure 84 mm[Hg] Naya Older DYNAMITE RECLAIMER.TUFTING MACHINE FIXER Work Phone: [facility] 04-14-2022 11:35-0400 Heart rate 92 /min Naya Older DYNAMITE RECLAIMER.TUFTING MACHINE FIXER Work Phone: [facility] 04-14-2022 11:35-0400 Respiratory rate 12 /min Naya Older DYNAMITE RECLAIMER.TUFTING MACHINE FIXER Work Phone: [facility] 04-14-2022 11:35-0400 Systolic blood pressure 132 mm[Hg] Naya Older DYNAMITE RECLAIMER.TUFTING MACHINE FIXER Work Phone: [facility] 04-08-2022 17:15-0400 Body temperature 99.1 [degF] Jackie Light DYNAMITE RECLAIMER.TUFTING MACHINE FIXER Work Phone: [facility] 04-08-2022 17:15-0400 Body weight 52.62 kg Jackie Light DYNAMITE RECLAIMER.TUFTING MACHINE FIXER Work Phone: [facility] 04-08-2022 17:15-0400 Diastolic blood pressure 84 mm[Hg] Jackie Light DYNAMITE RECLAIMER.TUFTING MACHINE FIXER Work Phone: [facility] 04-08-2022 17:15-0400 Heart rate 79 /min Jackie Light DYNAMITE RECLAIMER.TUFTING MACHINE FIXER Work Phone: [facility] 04-08-2022 17:15-0400 Respiratory rate 20 /min Jackie Light DYNAMITE RECLAIMER.TUFTING MACHINE FIXER Work Phone: [facility] 04-08-2022 17:15-0400 SaO2% (BldA) [Mass fraction] 94 % Jackie Light DYNAMITE RECLAIMER.TUFTING MACHINE FIXER Work Phone: [facility] 04-08-2022 17:15-0400 Systolic blood pressure 126 mm[Hg] Jackie Light DYNAMITE RECLAIMER.TUFTING MACHINE FIXER Work Phone: [facility] 03-23-2022 10:20-0400 Body height 152.4 cm Frank Gross MD Work Phone: [facility] 03-23-2022 10:20-0400 Body weight 52.62 kg Frank Gross MD Work Phone: [facility] 03-23-2022 10:20-0400 Diastolic blood pressure 62 mm[Hg] Frank Gross MD Work Phone: [facility] 03-23-2022 10:20-0400 Systolic blood pressure 110 mm[Hg] Frank Gross MD Work Phone: [facility] 02-26-2022 09:22-0400 Body weight 52.8 kg Naila Youngblood MD Work Phone: [facility] 02-26-2022 09:22-0400 Diastolic blood pressure 81 mm[Hg] Naila Youngblood MD Work Phone: [facility] 02-26-2022 09:22-0400 Heart rate 88 /min Naila Youngblood MD Work Phone: [facility] 02-26-2022 09:22-0400 Respiratory rate 20 /min Naila Youngblood MD Work Phone: [facility] 02-26-2022 09:22-0400 SaO2% (BldA) [Mass fraction] 99 % Naila Youngblood MD Work Phone: [facility] 02-26-2022 09:22-0400 Systolic blood pressure 153 mm[Hg] Naila Youngblood MD Work Phone: [facility] 02-20-2022 11:18-0400 Body height 152.4 cm Abebe Gonsalez PA-C Work Phone: [facility] 02-20-2022 11:18-0400 Body temperature 98.71 [degF] Abebe Gonsalez PA-C Work Phone: [facility] 02-20-2022 11:18-0400 Body weight 53.07 kg Abebe Gonsalez PA-C Work Phone: [facility] 02-20-2022 11:18-0400 Diastolic blood pressure 84 mm[Hg] Abebe Gonsalez PA-C Work Phone: [facility] 02-20-2022 11:18-0400 Heart rate 108 /min Abebe Gonsalez PA-C Work Phone: [facility] 02-20-2022 11:18-0400 Respiratory rate 16 /min Abebe Gonsalez PA-C Work Phone: [facility] 02-20-2022 11:18-0400 SaO2% (BldA) [Mass fraction] 97 % Abebe Gonsalez PA-C Work Phone: [facility] 02-20-2022 11:18-0400 Systolic blood pressure 140 mm[Hg] Abebe Gonsalez PA-C Work Phone: [facility] 02-12-2022 13:02-0400 Body temperature 98.2 [degF] Nurse Main Work Phone: [facility] 02-12-2022 13:02-0400 Body weight 53.75 kg Nurse Main Work Phone: [facility] 02-12-2022 13:02-0400 Diastolic blood pressure 86 mm[Hg] Nurse Main Work Phone: [facility] 02-12-2022 13:02-0400 Heart rate 68 /min Nurse Main Work Phone: [facility] 02-12-2022 13:02-0400 Respiratory rate 16 /min Nurse Main Work Phone: [facility] 02-12-2022 13:02-0400 Systolic blood pressure 159 mm[Hg] Nurse Main Work Phone: [facility] 01-05-2022 13:48-0400 Body temperature 99.19 [degF] Nenita Solorio MD, MD Work Phone: [facility] 01-05-2022 13:48-0400 Body weight 54.43 kg Nenita Solorio MD, MD Work Phone: [facility] 01-05-2022 13:48-0400 Diastolic blood pressure 79 mm[Hg] Nenita Solorio MD, MD Work Phone: [facility] 01-05-2022 13:48-0400 Heart rate 87 /min Nenita Solorio MD, MD Work Phone: [facility] 01-05-2022 13:48-0400 SaO2% (BldA) [Mass fraction] 94 % Nenita Solorio MD, MD Work Phone: [facility] 01-05-2022 13:48-0400 Systolic blood pressure 147 mm[Hg] Nenita Solorio MD, MD Work Phone: [facility] 11-05-2021 21:32-0500 Diastolic blood pressure 82 mm[Hg] Rosmery Ganta Other Phone: [facility] 11-05-2021 21:32-0500 Heart rate 71 /min Rosmery Ganta Other Phone: [facility] 11-05-2021 21:32-0500 Respiratory rate 18 /min Rosmery Ganta Other Phone: [facility] 11-05-2021 21:32-0500 SaO2% (BldA) [Mass fraction] 95 % Rosmery Ganta Other Phone: [facility] 11-05-2021 21:32-0500 Systolic blood pressure 141 mm[Hg] Rosmery Ganta Other Phone: [facility] 11-05-2021 19:49-0500 Body height 152.4 cm Rosmery Ganta Other Phone: [facility] 11-05-2021 19:49-0500 Body temperature 97.88 [degF] Rosmery Ganta Other Phone: [facility] 11-05-2021 19:49-0500 Body weight 53.6 kg Rosmery Ganta Other Phone: [facility] 11-05-2021 13:48-0500 Body height 152 cm Rosmery Ganta Other Phone: [facility] 11-05-2021 13:48-0500 Body temperature 98.06 [degF] Rosmery Ganta Other Phone: [facility] 11-05-2021 13:48-0500 Diastolic blood pressure 75 mm[Hg] Rosmery Ganta Other Phone: [facility] 11-05-2021 13:48-0500 Heart rate 80 /min Rosmery Ganta Other Phone: [facility] 11-05-2021 13:48-0500 Systolic blood pressure 145 mm[Hg] Rosmery Ganta Other Phone: [facility] 10-06-2018 11:18-0500 Body Temperature 98.01 [degF] [facility] 10-06-2018 11:18-0500 BP Diastolic 78 mm[Hg] [facility] 10-06-2018 11:18-0500 BP Systolic 120 mm[Hg] [facility] 10-06-2018 11:18-0500 Pulse (Heart Rate) 70 /min [facility] 10-06-2018 11:18-0500 Pulse Oximetry 98 % [facility] 10-06-2018 11:18-0500 Respiratory Rate 18 /min [facility] 10-05-2018 14:40-0500 BP Diastolic 78 mm[Hg] [facility] 10-05-2018 14:40-0500 BP Systolic 123 mm[Hg] [facility] 10-05-2018 14:40-0500 Pulse Oximetry 98 % [facility] 10-03-2018 14:15-0500 BP Diastolic 78 mm[Hg] [facility] 10-03-2018 14:15-0500 BP Systolic 132 mm[Hg] [facility] 10-03-2018 14:15-0500 Pulse (Heart Rate) 78 /min [facility] 10-03-2018 14:15-0500 Pulse Oximetry 98 % [facility] 09-27-2018 15:36-0500 BP Diastolic 78 mm[Hg] [facility] 09-27-2018 15:36-0500 BP Systolic 123 mm[Hg] [facility] 09-27-2018 15:36-0500 Pulse Oximetry 98 % [facility] 09-26-2018 16:39-0500 BP Diastolic 78 mm[Hg] [facility] 09-26-2018 16:39-0500 BP Systolic 132 mm[Hg] [facility] 09-26-2018 16:39-0500 Pulse Oximetry 98 % [facility] 09-23-2018 12:59-0500 BP Diastolic 68 mm[Hg] [facility] 09-23-2018 12:59-0500 BP Systolic 112 mm[Hg] [facility] 09-23-2018 12:59-0500 Pulse (Heart Rate) 78 /min [facility] 09-23-2018 12:59-0500 Pulse Oximetry 98 % [facility] 09-23-2018 12:35-0500 Body Temperature 98.01 [degF] [facility] 09-23-2018 12:35-0500 BP Diastolic 68 mm[Hg] [facility] 09-23-2018 12:35-0500 BP Systolic 112 mm[Hg] [facility] 09-23-2018 12:35-0500 Pulse Oximetry 98 % [facility] 09-23-2018 12:35-0500 Respiratory Rate 14 /min [facility] 09-21-2018 13:05-0500 BMI (Body Mass Index) 21.68 kg/m2 [facility] 09-21-2018 13:05-0500 Body Temperature 98.01 [degF] [facility] 09-21-2018 13:05-0500 BP Diastolic 78 mm[Hg] [facility] 09-21-2018 13:05-0500 BP Systolic 144 mm[Hg] [facility] 09-21-2018 13:05-0500 Height 152.4 cm [facility] 09-21-2018 13:05-0500 Pulse (Heart Rate) 78 /min [facility] 09-21-2018 13:05-0500 Pulse Oximetry 97 % [facility] 09-21-2018 13:05-0500 Respiratory Rate 18 /min [facility] 09-21-2018 13:05-0500 Weight 50.35 kg [facility] 09-19-2018 16:11-0500 BP Diastolic 78 mm[Hg] [facility] 09-19-2018 16:11-0500 BP Systolic 123 mm[Hg] [facility] 09-19-2018 16:11-0500 Pulse (Heart Rate) 78 /min [facility] 09-19-2018 16:11-0500 Pulse Oximetry 98 % [facility] Encounters Encounter Date Encounter Type Care Provider Facility Start: 02-28-2025 End: 03-01-2025 Telephone encounter Franklin Salmon MD Work Phone: Urogynecology Comment on above: Medication Problem Start: 02-13-2025 End: 02-13-2025 Emergency department patient visit Bahman Ann DO Work Phone: [facility] Comment on above: Urinary tract infect ion with hematuria, site unspecified (Primary Dx) Start: 01-25-2025 End: 01-25-2025 ambulatory [facility] Start: 12-12-2024 End: 12-12-2024 ambulatory [facility] Start: 10-31-2024 End: 10-31-2024 ambulatory [facility] Start: 10-19-2024 End: 10-19-2024 [facility] Start: 08-19-2024 End: 08-19-2024 Emergency department patient visit [facility] Emergency Medicine Comment on above: Acute bronchitis, un specified organism (Primary Dx); Acute cough Start: 08-17-2024 End: 08-17-2024 Patient encounter procedure Lindsey Crisostomo DYNAMITE RECLAIMER-TUFTING MACHINE FIXER Work Phone: [facility] Comment on above: Bronchitis after pool dolores (Primary Dx); Acute cough Start: 08-17-2024 End: 08-17-2024 [facility] Start: 08-08-2024 End: 08-08-2024 Patient encounter procedure Lindsey Crisostomo DYNAMITE RECLAIMER-TUFTING MACHINE FIXER Work Phone: [facility] Comment on above: Dysuria (Primary Dx) ; Acute cystitis with hematuria Start: 08-08-2024 End: 08-08-2024 [facility] Start: 08-08-2024 End: 08-08-2024 [facility] Start: 06-22-2024 End: 06-22-2024 [facility] Start: 04-17-2024 ambulatory UNKNOWN PROVIDER Facili ty:[facility] Start: 04-17-2024 End: 04-17-2024 Subsequent hospital visit by physician Pet [facility] PET CT Comment on above: Malignant neoplasm o f uterus, unspecified site (HCC) [C55] Start: 03-11-2024 End: 03-11-2024 [facility] Start: 02-25-2024 End: 02-25-2024 Emergency department patient visit Bahman Ann DO Work Phone: [facility] Comment on above: Urinary tract infect ion with hematuria, site unspecified (Primary Dx); Constipation, unspecified constipation type; Dizziness Start: 02-17-2024 End: 02-17-2024 Office outpatient visit 40 minutes Terry Espino MD Work Phone: [facility] Building Comment on above: Palliative care enco unter (Primary Dx) Start: 02-09-2024 End: 02-09-2024 ambulatory [facility] Facility:[facility] Start: 02-09-2024 End: 02-09-2024 Patient encounter procedure Franklin Salmon MD Work Phone: [facility] Comment on above: Acute vulvitis (Prim miguel angel Dx); Radiation cystitis Start: 01-17-2024 Telephone encounter Franklin Salmon MD Work Phone: URO/Gynecology Start: 01-15-2024 ambulatory Franklin barrett MD Work Phone: URO/Gynecology Comment on above: Pain with urination Start: 01-11-2024 End: 01-11-2024 [facility] Facility:[facility] Start: 01-04-2024 End: 01-04-2024 ambulatory Lab[facility] [facility] Work Phone: Hematology/Oncology Comment on above: Antineoplastic chemo therapy induced anemia (Primary Dx) Start: 12-28-2023 Telephone encounter Kelley narvaez APRN.TUFTING MACHINE FIXER Work Phone: Pre Anesthesia Comment on above: Xarelto Instructions Start: 12-27-2023 End: 12-27-2023 Admission to establishment [facility]acc [place] 1 Work Phone: Pre Anesthesia Start: 12-27-2023 End: 12-27-2023 [facility] Facility:[facility] Start: 12-27-2023 End: 12-27-2023 Anesthesia consultation Pacc [place] 1 Work Phone: Pre Anesthesia Comment on above: Preoperative examina tion (Primary Dx); Multiple sclerosis (HCC); Radiation cystitis; History of uterine cancer; History of pulmonary embolism; History of DVT (deep vein thrombosis); Anxiety; Mixed hyperlipidemia; Bilateral carotid artery stenosis; Acquired hypothyroidism; Anemia, unspecified type Start: 12-27-2023 End: 12-27-2023 Preprocedural examination done Pac [place] 1 Work Phone: [facility] Work Phone: Start: 12-24-2023 Telephone encounter Franklin Salmon MD Work Phone: Gynecology Comment on above: Question Medication Question Start: 12-17-2023 End: 12-17-2023 ambulatory [facility] Nurse Nakul Work Phone: [facility] Comment on above: Educational circumst ance (Primary Dx) Start: 12-17-2023 End: 12-17-2023 Telemedicine consultation with patient Uro Cooker Chip Nurse Nakul Work Phone: [facility] FERNANDE[facility] Start: 12-16-2023 End: 12-16-2023 ambulatory Franklin Salmon MD Work Phone: URO/Gynecology Comment on above: Radiation cystitis ( Primary Dx); OAB (overactive bladder) [N32.81] Start: 12-16-2023 End: 12-16-2023 Telemedicine consultation with patient Franklin Salmon MD Work Phone: [facility] Start: 12-16-2023 End: 12-16-2023 ambulatory BERNARDINO CHI PAKO Facility:[facility] Start: 12-13-2023 End: 12-13-2023 Office outpatient new 60 minutes Terry Espino MD Work Phone: [facility] Comment on above: Palliative care enco unter (Primary Dx) Start: 12-09-2023 Telephone encounter Franklin Salmon MD Work Phone: [facility] Comment on above: Patient Update Start: 12-08-2023 Telephone encounter Franklin Salmon MD Work Phone: [facility] Comment on above: Schedule Surgery Start: 12-03-2023 Telephone encounter Franklin Salmon MD Work Phone: Obstetrics/Gynecology Start: 12-03-2023 End: 12-03-2023 ambulatory [facility] Start: 12-02-2023 Telephone encounter Franklin Salmon MD Work Phone: URO/Gynecology Start: 12-01-2023 End: 12-01-2023 ambulatory Franklin Salmon MD Work Phone: [facility] Comment on above: Urge urinary inconti nence (Primary Dx); Urinary urgency Start: 12-01-2023 End: 12-01-2023 Telemedicine consultation with patient Franklin Salmon MD Work Phone: [facility] Start: 11-24-2023 Telephone encounter Franklin Salmon MD Work Phone: [facility] Comment on above: Schedule Surgery Start: 11-19-2023 ambulatory Franklin barrett MD Work Phone: URO/Gynecology Comment on above: Questions Start: 11-18-2023 End: 11-18-2023 ambulatory FRANKLIN SALMON Facility:[facility] Start: 11-18-2023 End: 11-18-2023 Patient encounter procedure Franklin Salmon MD Work Phone: URO/Gynecology Comment on above: Radiation cystitis ( Primary Dx); OAB (overactive bladder) [N32.81]; Lesion of bladder Start: 10-26-2023 ambulatory Franklin barrett MD Work Phone: [facility] Comment on above: Medication not worki ng Start: 10-09-2023 ambulatory Franklin barrett MD Work Phone: [facility] Comment on above: Rosita mesa call into pharmacist Start: 10-08-2023 Telephone encounter Franklin Salmon MD Work Phone: URO/Gynecology Start: 10-07-2023 Telephone encounter Franklin Salmon MD Work Phone: [facility] Comment on above: Medication Problem Start: 10-06-2023 End: 10-06-2023 Nutrition therapy Malathi Roberts MD Work Phone: [facility] Gynecology Oncology Comment on above: Malignant neoplasm o f uterus, unspecified site (HCC) (Primary Dx); Severe malnutrition (HCC) Start: 10-06-2023 End: 10-06-2023 Telemedicine consultation with patient Malathi Roberts MD Work Phone: [facility] Start: 10-06-2023 End: 10-06-2023 ambulatory FRANKLIN SALMON Facility:[facility] Start: 10-06-2023 End: 10-06-2023 Patient encounter procedure Franklin Salmon MD Work Phone: [facility] Comment on above: Cystitis (Primary Dx ); Microscopic hematuria; Detrusor overactivity; Constipation, unspecified constipation type Start: 10-04-2023 Telephone encounter Malathi Roberts MD Work Phone: [facility] Gynecology Oncology Comment on above: Appointment Start: 10-01-2023 Telephone encounter Nate Krishna APRN.CNP Work Phone: [facility] Gynecology Oncology Comment on above: Results Start: 09-29-2023 End: 09-29-2023 ambulatory NATE KRISHNA Facility:[facility] Start: 09-27-2023 End: 09-27-2023 ambulatory NATE KRISHNA Facility:[facility] Start: 09-02-2023 End: 09-02-[address] Bernardino Min Work Phone: Work Phone: Start: 09-02-2023 End: 09-02-[address] Bernardino Min Work Phone: -Laboratory, Phy Office 3rd Flr Start: 08-09-2023 End: 08-09-2023 ambulatory [facility] Start: 08-03-2023 End: 08-04-2023 ambulatory BERNARDINO MIN Facility:[facility] Start: 07-26-2023 Telephone encounter Domo gan DO Work Phone: Hematology/Oncology Comment on above: Appointment Start: 07-09-2023 End: 07-09-2023 ambulatory BERNARDINO MIN Facility:[facility] Start: 07-09-2023 Non-patient / Non-visit Dr. Everett Min Work Phone: [facility] Start: 07-09-2023 End: 07-09-[address] Bernardino Min Work Phone: Work Phone: Start: 07-09-2023 End: 07-09-[address] Bernardino Min Work Phone: -Cardiovascula r Services Work Phone: Start: 06-29-2023 End: 07-09-2023 Evaluation and management of inpatient Dr. Bernardino Min Work Phone: -Transitional Care Unit Start: 06-29-2023 Non-patient / Non-visit Dr. Everett Min Work Phone: [facility] Work Phone: Start: 06-28-2023 Non-patient / Non-visit Dr. Everett Min Work Phone: [facility] Work Phone: Start: 06-27-2023 Non-patient / Non-visit Dr. Everett Min Work Phone: [facility] Work Phone: Start: 06-26-2023 End: 06-29-2023 Evaluation and management of inpatient -Medical Surgical 3 Work Phone: Start: 06-26-2023 End: 06-29-[address] Bernardino Min Work Phone: Work Phone: Start: 06-25-2023 Telephone encounter Domo gan DO Work Phone: Hematology/Oncology Comment on above: Patient Update Start: 06-25-2023 End: 06-25-2023 ambulatory Lab/[place] [facility] Work Phone: Hematology/Oncology Comment on above: Malignant neoplasm o f uterus, unspecified site (HCC) (Primary Dx); Chronic deep vein thrombosis (DVT) of proximal vein of left lower extremity (HCC); Malaise and fatigue Start: 06-23-2023 Telephone encounter Mason Delgado matology/Oncology Comment on above: Bit Grinder - O ther (Follow-up ) Start: 06-22-2023 Telephone encounter Domo gan DO Work Phone: Hematology/Oncology Comment on above: Fatigue Start: 06-20-2023 ambulatory Domo Frazier D O Work Phone: Hematology/Oncology Comment on above: Rosita Kennedy Immuno therapy Start: 06-17-2023 Telephone encounter Mason Delgado matology/Oncology Comment on above: Bit Grinder - O ther (Follow-up ) Start: 06-14-2023 Telephone encounter Mason Delgado matology/Oncology Comment on above: Bit Grinder - O ther (C1D1 Post Treatment Call (Keytruda/Lenvatinib)) Start: 06-11-2023 End: 06-11-2023 ambulatory Lab/[place] [facility] Work Phone: Hematology/Oncology Comment on above: Endometrial cancer ( HCC); Acquired hypothyroidism Malignant neoplasm o f uterus, unspecified site (HCC) (Primary Dx) Start: 06-04-2023 End: 06-04-2023 ambulatory DOMO FRAZIER Facility:[facility] Start: 06-03-2023 ambulatory Huma Hammond [facility] Start: 06-03-2023 Patient encounter procedure Huma Hammond [facility] Comment on above: SPP Oral Oncology/he matology - Treatment Referral (Lenvima 10mg/day); Insurance Authorization (Pending PA Submission) Start: 06-03-2023 Telephone encounter Mason Delgado matology/Oncology Comment on above: Bit Grinder - O ther (Oral Chemotherapy Medication (Lenvatinib)) Start: 06-01-2023 End: 06-01-2023 ambulatory DOMO FRAZIER Facility:[facility] Start: 05-20-2023 End: 05-20-2023 Subsequent hospital visit by physician Pet Injection [facility] Work Phone: [facility] Comment on above: Malignant neoplasm o f endometrium (HCC) [C54.1] Start: 04-30-2023 End: 04-30-2023 ambulatory Malathi Roberts MD Work Phone: [facility] Gynecology Oncology Comment on above: Acute right-sided lo w back pain without sciatica (Primary Dx); Malignant neoplasm of uterus, unspecified site (HCC); Acute pain of right shoulder Start: 04-30-2023 End: 04-30-2023 Patient encounter procedure Malathi Roberts MD Work Phone: [facility] Start: 04-13-2023 End: 04-13-2023 Emergency department patient visit Carolyn Solorzano [facility] Start: 04-05-2023 Telephone encounter Henryshaquille Donovan RN Gynecology Comment on above: Care Coordination Start: 03-31-2023 End: 03-31-2023 ambulatory Malathi Roberts MD Work Phone: [facility] Gynecology Oncology Comment on above: Malignant neoplasm o f uterus, unspecified site (HCC) (Primary Dx) Start: 03-31-2023 End: 03-31-2023 Patient encounter procedure Malathi Roberts MD Work Phone: [facility] Start: 03-29-2023 Telephone encounter Henry Donovan RN Gynecology Comment on above: Care Coordination (P OC) Malignant neoplasm o f uterus, unspecified site (HCC) (Primary Dx) Patient Update; Brigid ent Question Start: 03-26-2023 End: 03-27-2023 ambulatory BERNARDINO TAPIA PAKO Facility:[facility] Start: 03-19-2023 End: 03-19-2023 ambulatory JOSELUIS PEREZ Facility:[facility] Start: 03-16-2023 Telephone encounter Deborah Boyd RN Gynecology Comment on above: Appointment; Patient Update Start: 03-12-2023 End: 03-12-2023 Emergency department patient visit -Emergency Department Work Phone: Start: 03-12-2023 End: 03-12-2023 Orders Only Joseluis Perez MD Work Phone: Gynecology Comment on above: Malignant neoplasm o f uterus, unspecified site (HCC) (Primary Dx) Endometrial cancer ( HCC) (Primary Dx); History of uterine cancer Chemotherapy Treatme nt Start: 03-08-2023 Orders Only Joseluis Perez MD Work Phone: Gynecology Oncology Start: 03-04-2023 End: 03-04-2023 Refill Racheal Saldana DYNAMITE RECLAIMER.TUFTING MACHINE FIXER Work Phone: Gynecology Comment on above: Care Coordination Discoloration of ski n of lower leg [L81.9] Start: 03-03-2023 Orders Only Racheal bradshaw DYNAMITE RECLAIMER.TUFTING MACHINE FIXER Work Phone: Gynecology Comment on above: Malignant neoplasm o f endometrium (HCC) (Primary Dx) Start: 02-26-2023 End: 02-26-2023 ambulatory [facility] Facility:[facility] Start: 02-26-2023 End: 02-26-2023 Nutrition therapy Joseluis Perez MD Work Phone: Gynecology Comment on above: Malignant neoplasm o f endometrium (HCC) (Primary Dx); Recurrent cancer (HCC); Discoloration of skin of lower leg; Leg swelling; Severe malnutrition (HCC) Start: 02-26-2023 End: 02-26-2023 Patient encounter procedure Joseluis Perez MD Work Phone: [facility] Start: 02-25-2023 Orders Only Joseluis Perez MD Work Phone: Gynecology Comment on above: Endometrial cancer ( HCC) (Primary Dx); Encounter for monitoring cardiotoxic drug therapy Start: 02-20-2023 ambulatory Joseluis Perez MD Work Phone: [facility] Start: 02-20-2023 Follow-up encounter Joseluis boyd MD Work Phone: Gynecology Comment on above: Follow Up on test re sults from Scan on 02/18 Start: 02-17-2023 ambulatory BERNARDINO MIN Facility:[facility] Start: 02-17-2023 End: 02-17-2023 Subsequent hospital visit by physician Pet Injection [facility] Comment on above: Endometrial cancer ( HCC) [C54.1] Start: 02-16-2023 Telephone encounter Luz (Pss) Rosaline sy Radiology Comment on above: Appointment Instruct ions (Appt reminder call - spoke with patient - went over dietary guidelines; dress comfortable, directions to office.) Start: 12-24-2022 ambulatory Wanda Blum [facility] Comment on above: Population Health Na vigation Outreach (HCC) Start: 12-14-2022 Telephone encounter Cami Baez RN Gynecology Comment on above: Patient Update Start: 12-07-2022 Telephone encounter Henry Donovan RN Gynecology Comment on above: Care Coordination (F ollow up POC) Start: 12-02-2022 ambulatory Rosmery Casas Work Phone: Internal Medicine [facility] [place] Start: 11-30-2022 ambulatory Henry suarez RN [facility] Start: 11-30-2022 Coordination of care plan Todd Donovan RN Gynecology Comment on above: Education Of Patient /family; Care Coordination Start: 11-29-2022 ambulatory Racheal bradshaw APRN.CNP Work Phone: Gynecology Start: 2022 End: 2022 ambulatory JOSELUIS PEREZ Facility:[facility] Start: 2022 End: 2022 ambulatory Joseluis Perez MD Work Phone: Gynecology Comment on above: Endometrial cancer ( HCC) [C54.1 (ICD-10-CM)] (Primary Dx); Malignant neoplasm of endometrium (HCC); History of DVT of lower extremity Start: 2022 End: 2022 Patient encounter procedure Joseluis Perez MD Work Phone: [facility] Start: 11-05-2022 Refill Ellen Ekta BARRERA .CNP Work Phone: Internal Medicine [place] Comment on above: Refill Request Start: 11-04-2022 ambulatory RACHEALYaquelin SALDANA [facility] y:[facility] Start: 11-03-2022 Telephone encounter Wagner harkins (Pas) Radiology Comment on above: Appointment instruct ions (PET SCAN - 11/04/2022 @200pm /Appointment reminder call- spoke with patient- went over dietary guidelines; dress comfortable, directions to office /) Start: 10-01-2022 End: 10-01-2022 Patient encounter procedure Rosmery [facility] Vascular Surgery Start: 09-30-2022 Non-patient / Non-visit MD Botello [facility] Start: 09-30-2022 Patient encounter procedure [facility]-Cardiovascula r Services Start: 09-28-2022 End: 09-28-2022 ambulatory [facility] Work Phone: Start: 09-28-2022 End: 09-28-2022 Patient encounter procedure [facility]-Laboratory, Phy Office 3rd Flr Start: 09-22-2022 Telephone encounter Rosmery mcgee MD Work Phone: [facility] Comment on above: HH PT POC Start: 09-11-2022 End: 09-19-2022 Evaluation and management of inpatient Rosmery [facility]-Transitional Care Unit Start: 09-11-2022 Non-patient / Non-visit MD Rosmery Cline [facility] Start: 09-10-2022 Non-patient / Non-visit MD Rosmery Cline [facility] Start: 09-10-2022 End: 09-10-2022 Non-patient / Non-visit MD Rosmery Horn [facility] [facility] Start: 09-09-2022 Non-patient / Non-visit MD Rosmery Cline [facility] Start: 09-08-2022 Non-patient / Non-visit MD Rosmery Cline [facility] Start: 09-08-2022 End: 09-08-2022 Non-patient / Non-visit MD Rosmery Horn [facility] Start: 09-07-2022 End: 09-11-2022 Evaluation and management of inpatient MD Rosmery Horn -Progressive Care Unit Start: 09-03-2022 End: 09-07-2022 Evaluation and management of inpatient MD Rosmery Horn -Transitional Care Unit Start: 09-03-2022 Non-patient / Non-visit MD Rosmery Cline [facility] Start: 09-03-2022 Non-patient / Non-visit MD Rosmery Cline [facility] Start: 09-02-2022 Non-patient / Non-visit MD Rosmery Cline [facility] Start: 09-02-2022 Non-patient / Non-visit MD Rosmery Cline [facility] Start: 09-01-2022 Non-patient / Non-visit MD Rosmery Cline [facility] Start: 09-01-2022 Non-patient / Non-visit MD Rosmery Cline [facility] Start: 08-31-2022 Non-patient / Non-visit MD Rosmery Cline [facility] Start: 08-31-2022 End: 09-03-2022 Evaluation and management of inpatient -Medical Surgical 3 Start: 08-28-2022 End: 08-28-2022 Patient encounter procedure Nelia Arreola APRN.CNP Work Phone: Family Medicine [place] Comment on above: Recurrent UTI (urina ry tract infection) (Primary Dx); Recurrent acute confusion; Rectal bleeding; Acute bilateral low back pain without sciatica; Excoriation of buttock, initial encounter; Decreased rectal sphincter tone; Chronic diarrhea Start: 08-27-2022 ambulatory Luisa Arshad RN NURSE O N CALL Comment on above: Diarrhea Start: 08-27-2022 Telephone encounter Rosmery mcgee MD Work Phone: Internal Medicine [place] Comment on above: Patient Update; Brigid ent Request Start: 08-15-2022 Telephone encounter Rosmery mcgee MD Work Phone: Internal Medicine [place] Comment on above: Medication Request Start: 08-14-2022 [...] Refill Rosmery Casas Work Phone: Internal Medicine [place] Comment on above: Refill Request Start: 06-19-2022 End: 06-19-2022 ambulatory Joseluis Perez MD Work Phone: Gynecology Comment on above: Malignant neoplasm o f endometrium (HCC) (Primary Dx); Periaortic lymphadenopathy; S/P radiation therapy Start: 06-19-2022 End: 06-19-2022 Telemedicine consultation with patient Joseluis Perez MD Work Phone: [facility] Start: 06-19-2022 End: 06-20-2022 ambulatory JOSELUIS PEREZ Facility:[facility] Start: 06-16-2022 End: 06-16-2022 ambulatory Joseluis Perez MD Work Phone: [facility] Comment on above: Malignant neoplasm o f endometrium (HCC) (Primary Dx); Endometrial cancer (HCC) Start: 06-16-2022 Patient encounter procedure Joseluis Perez MD Work Phone: Gynecology Comment on above: Rosita's Appointment 06/19 Start: 06-16-2022 End: 06-16-2022 Telemedicine consultation with patient Naila Youngblood MD Work Phone: [facility] Start: 06-12-2022 ambulatory ROSMERY HORN Facility:[facility] Start: 06-12-2022 End: 06-12-2022 Subsequent hospital visit by physician Jose Winter [facility] Start: 05-30-2022 End: 05-30-2022 Patient encounter procedure Rosmery Horn MD Work Phone: Internal Medicine [place] Comment on above: Diarrhea, unspecifie d type (Primary Dx); Hypomagnesemia; Dizziness; Endometrial cancer, grade I (HCC) Start: 05-29-2022 ambulatory Rosmery Casas Work Phone: [facility] Comment on above: Diarrhea Start: 05-29-2022 Patient encounter procedure Rosmery Horn MD Work Phone: Internal Medicine [place] Comment on above: Rosita's appointment tomorrow 05/30 Start: 05-15-2022 ambulatory Rosmery Casas Work Phone: Internal Medicine [place] Comment on above: Medical Question Start: 05-02-2022 [...] with patient Naila Youngblood MD Work Phone: [facility] Start: 04-27-2022 Patient encounter procedure Rosmery Horn Work Phone: [facility] Work Phone: Start: 04-14-2022 End: 04-14-2022 Patient encounter procedure Naya Dash DYNAMITE RECLAIMER.TUFTING MACHINE FIXER Work Phone: Internal Medicine [place] Comment on above: Positional lighthead edness (Primary Dx); Diarrhea, unspecified type; Recurrent UTI Start: 04-08-2022 End: 04-08-2022 Patient encounter procedure Jackie Light DYNAMITE RECLAIMER.TUFTING MACHINE FIXER Work Phone: [place] [facility] Comment on above: Dysuria (Primary Dx) ; Recurrent UTI (urinary tract infection) Start: 03-26-2022 End: 03-26-2022 ambulatory Joseluis Perez MD Work Phone: Gynecology Comment on above: Malignant neoplasm o f endometrium (HCC) (Primary Dx); Periaortic lymphadenopathy; S/P radiation therapy Start: 03-26-2022 End: 03-26-2022 Telemedicine consultation with patient Joseluis Perez MD Work Phone: [facility] Start: 03-24-2022 ambulatory Joseluis Perez MD Work Phone: [facility] Comment on above: Thank you for catarino y to have a phone call Start: 03-24-2022 Patient encounter procedure Joseluis Perez MD Work Phone: Gynecology Comment on above: Virtual Appointment Start: 03-24-2022 Telephone encounter Abebe chapa PA-C Work Phone: Urology Comment on above: Appointment Start: 03-23-2022 End: 03-23-2022 Patient encounter procedure Frank Gross MD Work Phone: [facility] Comment on above: Acute cystitis witho ut hematuria (Primary Dx); Chronic UTI; Screening for genitourinary condition Start: 03-20-2022 Telephone encounter Henry hill RN Work Phone: Radiation Oncology Comment on above: Post Radiation Treat ment Follow Up Start: 03-18-2022 Telephone encounter Anant lockett MD Work Phone: [facility] Comment on above: Opened In Error [...] Rosmery mcgee MD Work Phone: Internal Medicine [place] Comment on above: Results Start: 02-12-2022 Patient encounter procedure Naila Youngblood MD Work Phone: [facility] Start: 02-12-2022 Radiation Oncology Note Naila [...] with patient Naila Youngblood MD Work Phone: [facility] Start: 01-30-2022 End: 01-30-2022 ambulatory Rosmery Horn MD Work Phone: Internal Medicine [place] Comment on above: Encounter for monito ring chronic NSAID therapy (Primary Dx); Hypokalemia; Mixed hyperlipidemia; Vitamin D deficiency; Hypothyroidism, unspecified type; Recurrent UTI; Depression, unspecified depression type; Insomnia, unspecified type Start: 01-30-2022 End: 01-30-2022 Telemedicine consultation with patient Rosmery Horn MD Work Phone: [facility] Start: 01-30-2022 Patient encounter procedure Rosmery Horn Work Phone: [facility] Work Phone: Start: 01-30-2022 PTFUADULT4, Provider : Montserrat Vaughan, Status: Pen, Time: 10:00 AM Rosmery Horn Work Phone: [facility] Work Phone: Start: 01-28-2022 Patient encounter procedure oRsmery Horn Work Phone: [facility] Work Phone: Start: 01-23-2022 ambulatory Naya SolizTUFTING MACHINE FIXER Work Phone: Internal Medicine [place] Comment on above: Rosita eKnnedy Medica tion Questions Start: 01-23-2022 Telephone encounter Racheal Saldana DYNAMITE RECLAIMER.TUFTING MACHINE FIXER Work Phone: Gynecology Comment on above: Results Start: 01-22-2022 End: 01-22-2022 ambulatory Joseluis Perez MD Work Phone: Gynecology Comment on above: Malignant neoplasm o f endometrium (HCC) (Primary Dx); Periaortic lymphadenopathy; Dysuria Start: 01-22-2022 End: 01-22-2022 Patient encounter procedure Joseluis Perez MD Work Phone: [facility] Start: 01-21-2022 ambulatory Joseluis Perez MD Work Phone: [facility] Start: 01-21-2022 Patient encounter procedure Joseluis Perez MD Work Phone: Gynecology Oncology Comment on above: Question about Appoi ntment on 01/22 Start: 01-16-2022 Refill Naya Dash DYNAMITE RECLAIMER .TUFTING MACHINE FIXER Work Phone: Internal Medicine [place] Comment on above: Refill Request Start: 01-12-2022 Telephone encounter Ellen Dash DYNAMITE RECLAIMER.TUFTING MACHINE FIXER Work Phone: Internal Medicine [place] Comment on above: Orders Start: 01-09-2022 Patient encounter procedure Rosmery Horn Work Phone: [facility] Work Phone: Start: 01-08-2022 Telephone encounter Yodit Garcia DYNAMITE RECLAIMER.TUFTING MACHINE FIXER Work Phone: Neurology Comment on above: Orders [...] with patient Joseluis Perez MD Work Phone: [facility] Start: 01-05-2022 End: 01-06-2022 ambulatory Joseluis [...] with patient Joseluis Perez MD Work Phone: [facility] Start: 12-30-2021 Patient encounter procedure Rosmery Horn Work Phone: [facility] Work Phone: Start: 12-26-2021 Patient encounter procedure [facility] Horn [facility] Work Phone: Start: 12-24-2021 ambulatory Joseluis Perez MD Work Phone: [facility] Start: 12-24-2021 Patient encounter procedure Joseluis Perez MD Work Phone: Gynecology Comment on above: Can We Move [facility] ent on 01/01 to Virtual Start: 12-23-2021 Patient encounter procedure [facility]mery Horn [facility] Work Phone: Start: 12-22-2021 End: 12-22-2021 Subsequent hospital visit by physician Pet Ct [facility] Comment on above: History of uterine c ancer [Z85.42] Start: 12-15-2021 End: 12-15-2021 Subsequent hospital visit by physician Ct [facility] (I-Stat) Work Phone: Cat Scan Comment on above: Malignant neoplasm o f endometrium (HCC) [C54.1] Start: 12-05-2021 Patient encounter procedure [facility]mery Horn [facility] Work Phone: Start: 12-04-2021 ambulatory Rosmery Casas Work Phone: [facility] Start: 12-04-2021 Follow-up encounter Rosmery mcgee MD Work Phone: Internal Medicine [place] Comment on above: Follow-up Start: 12-03-2021 Refill Peter mcgee MD Work Phone: Ophthalmology Comment on above: Refill Request Start: 11-14-2021 Telephone encounter Naya Older DYNAMITE RECLAIMER.TUFTING MACHINE FIXER Work Phone: Internal Medicine [place] Comment on above: Patient Update Start: 11-05-2021 End: 11-05-2021 Emergency department patient visit Pedro Luis Isaac [facility] Emergency 10 Start: 11-05-2021 End: 11-05-2021 Emergency department patient visit Ramónlc Jeter [facility] Start: 2020 End: 2020 Subsequent hospital visit by physician Xr [facility] [place] Work Phone: Radiology Comment on above: Hip pain [M25.559] Start: 10-05-2020 End: 10-05-2020 Orders Only Britni Ballarddavid Curran Work Phone: [facility] Start: 12-15-2018 End: 12-15-2018 Home visit Isis [facility] Comment on above: CASE COMMUNICATION Start: 12-15-2018 Patient encounter procedure ISIS BURDICK [facility] Start: 12-13-2018 End: 12-13-2018 Patient encounter procedure JIMMY PIZARRO [facility] Start: 12-10-2018 End: 12-10-2018 Home visit Alberto L Devin [facility] Comment on above: TELEPHONE ENCOUNTER Start: 12-10-2018 Patient encounter procedure ALBERTO ESTRADA [facility] Start: 10-07-2018 End: 10-07-2018 Home visit Jade Gautam [facility] Comment on above: PT NON-OASIS/DISCIPL INE DISCHARGE Start: 10-06-2018 End: 10-06-2018 Home visit Isis Burdick [facility] Comment on above: SN HH OASIS DISCHARG E Start: 10-05-2018 End: 10-05-2018 Home visit Teja Pardo [facility] Comment on above: RADIOLOGY TRANSCRIPTIONIST ROUTINE VISIT Start: 10-03-2018 End: 10-03-2018 Home visit Teja Pardo [facility] Comment on above: RADIOLOGY TRANSCRIPTIONIST ROUTINE VISIT Start: 09-30-2018 End: 09-30-2018 Home visit Teja Pardo [facility] Comment on above: RADIOLOGY TRANSCRIPTIONIST MISSED VISIT Start: 09-30-2018 Patient encounter procedure TEJA PARDO [facility] Start: 09-27-2018 End: 09-27-2018 Home visit Teja Pardo [facility] Comment on above: RADIOLOGY TRANSCRIPTIONIST ROUTINE VISIT Start: 09-26-2018 End: 09-26-2018 Home visit Teja Pardo [facility] [facility] Comment on above: RADIOLOGY TRANSCRIPTIONIST ROUTINE VISIT Start: 09-23-2018 End: 09-23-2018 Home visit Teja Pardo [facility] Comment on above: RADIOLOGY TRANSCRIPTIONIST ROUTINE VISIT CASE COMMUNICATION OT INITIAL EVALUATIO N Start: 09-23-2018 Patient encounter procedure [facility] Start: 09-22-2018 End: 09-22-2018 Home visit Isis Burdick [facility] Comment on above: CASE COMMUNICATION Start: 09-22-2018 Patient encounter procedure [facility] Start: 09-21-2018 End: 09-21-2018 Home visit Teja Pardo [facility] Comment on above: RADIOLOGY TRANSCRIPTIONIST ROUTINE VISIT SN [facility] START OF CARE Start: 09-19-2018 End: 09-19-2018 Home visit Florencio Childs [facility] Comment on above: CASE COMMUNICATION RADIOLOGY TRANSCRIPTIONIST ROUTINE VISIT Start: 09-19-2018 Patient encounter procedure FLORENCIO Ivone [facility] Start: 09-16-2018 End: 09-16-2018 Admission to [facility] Jimmy Pizarro [facility] Start: 09-16-2018 End: 10-06-2018 Patient encounter procedure NOAM FREEMAN [facility] Start: 09-16-2018 End: 09-16-2018 Home visit Jade Gautam [facility] Comment on above: PT INITIAL EVALUATIO N Start: 09-08-2018 Patient encounter procedure ESTELA COSBY [facility] Start: 09-01-2018 End: 09-01-2018 Patient encounter procedure Jena Abernathydejon [facility] Start: 06-21-2018 End: 06-21-2018 Patient encounter procedure NOAM FREEMAN Facility:[facility] Procedures Date Procedure Procedure Detail Performing Clinician Start: 02-13-2025 Urinalysis microscopic panel - Urine Qualitative by Automated Bahman Ann DO Work Phone: Start: 02-13-2025 Urnls dip stick/tablet reagent auto microscopy Bahman Ann DO Work Phone: Start: 08-19-2024 Radiologic exam chest 2 views Pamela Essence PA-C Work Phone: Start: 08-17-2024 POCT SARS-COV-2/FLU/RSV PCR SYMPTOMATIC Lindsey Crisostomo [employer]ITE RE[employer]ER-[employer] Work Phone: Start: 08-08-2024 Urnls dip stick/tablet rgnt non-auto w/o micrscp Lindsey Crisostomo [employer]YNAMITE RECLAIMER-[employer] Work Phone: Start: 04-17-2024 Gluc bld gluc [...] ct attenuation skull base mid-thigh Racheal Saldana DYNAMITE RECLAIMER.[employer] Work Phone: Start: 03-12-2023 Plain chest X-ray Start: 03-12-2023 Blood count complete auto&auto difrntl wbc Joseluis Perez MD Work Phone: Start: 03-04-2023 Dup-scan xtr veins unilateral/limited study Domenic Cramer DYNAMITE RECLAIMER.[employer] Work Phone: Start: 02-17-2023 Gluc bld gluc [...] 1996 panel - Serum or Plasma [facility] Work Phone: Start: 01-22-2022 Urnls dip stick/tablet [...] DTaP/Tdap/Td Vaccines (2 - Td or Tdap) [facility] Start: 10-29-2031 Urine microalbumin profile DTaP,Tdap,Td Vaccine (2 - Td or Tdap) [facility] Start: 04-24-2030 Colonoscopy COLONOSCOPY [facility] Start: 04-24-2030 COLORECTAL CANCER SCREENING COLORECTAL CANCER SCREENING [facility] Start: 04-24-2030 Screening for malignant neoplasm of colon [facility] Start: 02-24-2027 Diabetes Screening Diabetes Screening [facility] Start: 02-12-2027 Lipid 1996 panel - Serum or Plasma Lipid Screening [facility] Start: 02-12-2027 Lipid panel Lipid Screening [facility] Start: 02-12-2027 LIPID SCREEN LIPID SCREEN [facility] Start: 09-27-2026 Diabetes Screening Diabetes Screening [facility] Start: 07-09-2026 Diabetes Screening Diabetes Screening [facility] Start: 06-25-2026 Diabetes Screening Diabetes Screening [facility] Start: 06-11-2026 Diabetes Screening Diabetes Screening [facility] Start: 03-19-2026 DIABETES SCREEN DIABETES SCREEN [facility] Start: 03-19-2026 Diabetes Screening Diabetes Screening [facility] Start: 03-04-2026 DIABETES SCREEN DIABETES SCREEN [facility] Start: 2025 LIPID SCREEN LIPID SCREEN [facility] Start: 08-28-2025 DIABETES SCREEN DIABETES SCREEN [facility] Start: 08-03-2025 DIABETES SCREEN DIABETES SCREEN [facility] Start: 04-30-2025 Influenza vaccination Influenza Vaccine (#1) [facility] Start: 04-19-2025 End: 04-19-2025 ambulatory 04/19/2025 2:30 PM EDT Infusion [facility] Medical Office [facility] [address] [phone] [facility] Medical Office [facility] Start: 04-14-2025 DIABETES SCREEN DIABETES SCREEN [facility] Start: 03-08-2025 End: 03-08-2025 ambulatory 03/08/2025 3:00 PM EDT Infusion [facility] Medical Office [facility] [address] [place] [phone] [facility] Office [facility] Start: 02-12-2025 DIABETES SCREEN DIABETES SCREEN [facility] Start: 01-23-2025 End: 01-23-2025 ambulatory 01/23/2025 11:00 AM EDT Infusion [facility] Office [facility] [address] [place] [place] [phone] [facility] Office [facility] Start: 12-12-2024 End: 12-12-2024 ambulatory 12/12/2024 11:00 AM EDT Infusion [facility] Office [facility] [address] [place] [place] [phone] [facility] Office [facility] Start: 11-12-2024 DIABETES SCREEN DIABETES SCREEN [facility] Start: 11-02-2024 COVID-19 Vaccine ( season) COVID-19 Vaccine ( season) [facility] Start: 10-31-2024 End: 10-31-2024 ambulatory 10/31/2024 11:00 AM EST Infusion [facility] Medical Office [facility] [address] [place] [place] [phone] [facility] Office [facility] Start: 09-19-2024 End: 09-19-2024 ambulatory 09/19/2024 11:00 AM EST Infusion [facility] Medical Office [facility] [address] [place] [phone] [facility] Medical Office Building Trevor Start: 08-30-2024 Advance Directive Discussion Advance Directive Discussion [facility] Start: 08-30-2024 Medicare Advantage Annual Wellness Visit Medicare [facility] Annual Wellness Visit [facility] Start: 08-08-2024 End: 08-15-2024 Bacteria identified in Urine by Culture [facility] Service Area Work Phone: Comment on above: Expected: 08/08/2024 (Approximate), Expi res: 08/15/2024 Start: 07-09-2024 Thyroid stimulating hormone measurement TSH Level [facility] Start: 05-25-2024 End: 05-25-2024 Patient encounter procedure 05/25/2024 2:00 PM EDT Office Visit [facility] [address] [place] [address] Franklin Salmon MD [address] [id number] follow up [facility] Comment on above: follow up Start: 04-30-2024 Covid-19 Vaccine ( season) Covid-19 Vaccine () [facility] Start: 04-30-2024 Influenza vaccination Influenza Vaccine (#1) [facility] Start: 02-09-2024 End: 02-09-2024 Patient encounter procedure 02/09/2024 3:00 PM EDT Office Visit [facility]UC[facility] [address] [place] [address] Franklin Salmon MD [address] [address] POST OP 4-6 WEEKS [facility]UL LUCAS Comment on above: POST OP 4-6 WEEKS Start: 01-20-2024 End: 01-20-2024 Patient encounter procedure 01/20/2024 1:30 PM EDT Office Visit [facility] [address] [place] [address] Franklin Salmon MD [address] [address] Cysto w/Botox [facility] Comment on above: Cysto w/Botox Start: 01-17-2024 End: 04-17-2024 Bacteria identified in Urine by Culture URINE CULTURE Microbiology Routine UTI symptoms Expected: 01/17/2024 (Approximate), Expires: 04/17/2024 [facility] Work Phone: Comment on above: Expected: 01/17/2024 (Approximate), Expi res: 04/17/2024 Start: 01-11-2024 End: 01-11-2024 Admission to same day surgery center 01/11/2024 12:00 PM EDT - 01/11/2024 1:30 PM EDT Surgery [facility] [address] [place] [address] Franklin Salmon MD [address] [phone] BIOPSY BLADDER [facility] Comment on above: BIOPSY [...] physician 01/11/2024 12:00 PM EDT Hospital Encounter [facility] [address] [place] [address] Franklin Salmon MD [address] [phone] 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 [place] [place] [address] 1, [place] [address] [place] [address] PRE OP Pre Anesthesia Comment on above: PRE OP Start: 12-01-2023 End: 03-01-2024 Bacteria identified in Urine by Culture URINE CULTURE Microbiology Routine Urinary urgency Expected: 12/01/2023 (Approximate), Expires: 03/01/2024 [facility] Work Phone: Comment on above: Expected: 12/01/2023 (Approximate), Expi res: 03/01/2024 Start: 11-28-2023 COLOGUARD (FIT-DNA) COLOGUARD (FIT-DNA) [facility] Start: 11-28-2023 Screening for malignant neoplasm of colon Cologuard (FIT-DNA) [facility] Start: 10-09-2023 COVID-19 Vaccine () COVID-19 Vaccine () [facility] Start: 09-29-2023 Medicare Annual Wellness Visit Medicare Annual Wellness Visit (AWV) [facility] Start: 08-30-2023 Advance Directive Discussion Advance Directive Discussion [facility] Start: 08-30-2023 Behavioral Health Screening Behavioral Health Screening [facility] Start: 08-30-2023 Depression Assessment Depression Assessment [facility] Start: 08-28-2023 ANNUAL PCP TEAM CHRONIC DISEASE VISIT ANNUAL PCP TEAM CHRONIC DISEASE VISIT [facility] Start: 08-03-2023 ANNUAL PCP TEAM CHRONIC DISEASE VISIT ANNUAL PCP TEAM CHRONIC DISEASE VISIT [facility] Start: 08-03-2023 Covid-19 Vaccine () Covid-19 Vaccine () [facility] Start: 07-09-2023 Patient discharge Start: 07-08-2023 Development of care plan [facility] Start: 07-05-2023 Referral to service Start: 06-30-2023 Development of care plan [facility] Start: 06-30-2023 Speech therapy management [facility] Start: 06-30-2023 Developing a treatment plan Start: 06-30-2023 Speech therapy assessment [facility] Start: 06-29-2023 Admission procedure Start: 06-29-2023 Measuring intake and output Start: 06-29-2023 Patient referral to dietitian Start: 06-29-2023 Referral to occupational therapist Start: 06-29-2023 Referral to service Start: 06-29-2023 Vital signs measurements [facility] Start: 06-29-2023 Start: 06-29-2023 Venous catheter care management Start: 06-29-2023 Patient discharge Start: 06-28-2023 Urine culture Urine Culture Start: 06-28-2023 Start: 06-27-2023 Consultation for treatment [facility] Start: 06-27-2023 Following clinical pathway protocol Start: 06-27-2023 Assessment of risk of venous thromboembolism Start: 06-27-2023 Insertion of catheter into peripheral vein Start: 06-27-2023 Providing care according to standard Start: 06-27-2023 Referral to occupational therapist Start: 06-27-2023 Referral to service Start: 06-27-2023 Start: 06-27-2023 Patient referral to dietitian Start: 06-26-2023 Verification routine Start: 06-26-2023 Hospital admission, emergency, from emergency room, medical nature Start: 06-26-2023 Admission procedure Start: 05-30-2023 ANNUAL PCP TEAM CHRONIC DISEASE VISIT ANNUAL PCP TEAM CHRONIC DISEASE VISIT [facility] Start: 04-30-2023 Influenza vaccination INFLUENZA (#1) [facility] Start: 04-29-2023 Adult depression screening assessment DEPRESSION SCREENING [facility] Start: 04-14-2023 ANNUAL PCP TEAM CHRONIC DISEASE VISIT ANNUAL PCP TEAM CHRONIC DISEASE VISIT [facility] Start: 04-14-2023 FECAL OCCULT BLOOD FECAL OCCULT BLOOD [facility] Start: 04-14-2023 Screening for malignant neoplasm of colon Fecal Occult Blood [facility] Start: 03-25-2023 COVID-19 VACCINE (8 - Moderna risk series) COVID-19 VACCINE (8 - Moderna risk series) [facility] Start: 03-18-2023 End: 05-18-2023 CBC W Auto Differential panel - Blood CBC + DIFF Lab Routine Malignant neoplasm of uterus, unspecified site (HCC) Expected: 03/18/2023, Expires: 05/18/2023 [facility] Work Phone: Comment on above: Expected: 03/18/2023, Expires: Start: 03-12-2023 Blood chemistry Start: 03-12-2023 End: 03-12-2023 Start: 03-12-2023 Chemotherapy care management Start: 01-30-2023 ANNUAL PCP TEAM CHRONIC DISEASE VISIT ANNUAL PCP TEAM CHRONIC DISEASE VISIT [facility] Start: 01-21-2023 Adult depression screening assessment DEPRESSION SCREENING [facility] Start: 11-12-2022 ANNUAL PCP TEAM CHRONIC DISEASE VISIT ANNUAL PCP TEAM CHRONIC DISEASE VISIT [facility] Start: 10-30-2022 Mammography MAMMOGRAM [facility] Start: 10-24-2022 Blood chemistry Start: 10-17-2022 Blood chemistry Start: 10-10-2022 Blood chemistry Start: 10-03-2022 Blood chemistry Start: 10-02-2022 Blood chemistry Work Phone: Start: 09-26-2022 Blood chemistry Start: 09-25-2022 Blood chemistry Work Phone: Start: 09-21-2022 Development of care plan [facility] Start: 09-19-2022 End: 07-19-2023 NM PET/CT SKULL-THIGH SUBSEQUENT NM PET/CT SKULL-THIGH SUBSEQUENT Radiology Routine Malignant neoplasm of endometrium (HCC) Expected: 09/19/2022, Expires: 07/19/2023 [facility] Work Phone: Comment on above: Expected: 09/19/2022, Expires: Start: 09-19-2022 Patient discharge Start: 09-18-2022 Referral to service Start: 09-18-2022 Blood chemistry Work Phone: Start: 09-16-2022 Speech therapy management [facility] Start: 09-16-2022 Speech therapy assessment [facility] Start: 09-12-2022 Development of care plan [facility] Start: 09-12-2022 Developing a treatment plan Start: 09-11-2022 Admission procedure Start: 09-11-2022 Measuring intake and output Start: 09-11-2022 Patient referral to dietitian Start: 09-11-2022 Referral to occupational therapist Start: 09-11-2022 Referral to service Start: 09-11-2022 Vital signs measurements [facility] Start: 09-11-2022 End: 09-11-2022 Start: 09-11-2022 Following clinical pathway protocol Start: 09-11-2022 Patient discharge Start: 09-11-2022 Start: 09-11-2022 Blood chemistry Work Phone: Start: 09-10-2022 Notification of physician [facility] Start: 09-10-2022 Provision of activity privileges Start: 09-10-2022 Taking patient vital signs [facility] Start: 09-10-2022 Vascular disease risk assessment Start: 09-10-2022 Start: 09-09-2022 Catheterization of vein [facility] Start: 09-09-2022 Medication not administered Start: 09-09-2022 Notification of physician [facility] Start: 09-09-2022 End: 09-09-2022 Preoperative care Start: 09-09-2022 Start: 09-08-2022 Notification of physician [facility] Start: 09-08-2022 Provision of activity privileges Start: 09-08-2022 Taking patient vital signs [facility] Start: 09-08-2022 Vascular disease risk assessment Start: 09-08-2022 Start: 09-07-2022 Ambulation without limitation Start: 09-07-2022 Assessment of risk of venous thromboembolism Start: 09-07-2022 Incentive spirometry Start: 09-07-2022 Insertion of catheter into peripheral vein Start: 09-07-2022 Measuring intake and output Start: 09-07-2022 Oxygen therapy Start: 09-07-2022 Providing care according to standard Start: 09-07-2022 Provision of activity privileges Start: 09-07-2022 Start: 09-07-2022 Admission procedure Start: 09-07-2022 Following clinical pathway protocol Start: 09-07-2022 Development of care plan [facility] Start: 09-07-2022 Patient discharge Start: 09-07-2022 Patient referral to [facility] Start: 09-04-2022 Developing a treatment plan Start: 09-04-2022 Development of care plan [facility] Start: 09-04-2022 Work Phone: Start: 09-04-2022 Start: 09-04-2022 Following clinical pathway protocol Start: 09-03-2022 Admission procedure Start: 09-03-2022 Measuring intake and output Start: 09-03-2022 Patient referral to dietitian Start: 09-03-2022 Referral to occupational therapist Start: 09-03-2022 Referral to service Start: 09-03-2022 Vital signs measurements [facility] Start: 09-03-2022 Start: 09-03-2022 Patient discharge Start: 09-03-2022 Patient referral to dietitian Start: 09-03-2022 Start: 09-01-2022 Referral to vascular surgeon Start: 08-31-2022 Assessment of risk of venous thromboembolism Start: 08-31-2022 Incentive spirometry Start: 08-31-2022 Insertion of catheter into peripheral vein Start: 08-31-2022 Patient referral to dietitian Start: 08-31-2022 Providing care according to standard Start: 08-31-2022 Referral to occupational therapist Start: 08-31-2022 Referral to service Start: 08-31-2022 Start: 08-31-2022 Measurement of occult blood in stool specimen using immunoassay Work Phone: Start: 08-31-2022 Verification routine Work Phone: Start: 08-31-2022 Admission procedure Start: 08-31-2022 Venous catheter care management Start: 08-30-2022 ADVANCE DIRECTIVE DISCUSSION ADVANCE DIRECTIVE DISCUSSION [facility] Start: 08-30-2022 DEPRESSION ASSESSMENT DEPRESSION ASSESSMENT [facility] Start: 08-03-2022 End: 10-03-2022 25-hydroxyvitamin D3 [Mass/volume] in Serum or Plasma [facility] Work Phone: Comment on above: Expected: 08/03/2022, Expires: 3 Start: 08-03-2022 End: 10-03-2022 Basic metabolic 2000 panel - Serum or Plasma [facility] Work Phone: Comment on above: Expected: 08/03/2022, Expires: 3 Start: 08-03-2022 End: 10-03-2022 CBC W Auto Differential panel - Blood [facility] Work Phone: Comment on above: Expected: 08/03/2022, Expires: 3 Start: 08-03-2022 End: 10-03-2022 Cobalamin (Vitamin B12) [Mass/volume] in Serum or Plasma [facility] Work Phone: Comment on above: Expected: 08/03/2022, Expires: 3 Start: 08-03-2022 End: 10-03-2022 Magnesium [Mass/volume] in Serum or Plasma [facility] Work Phone: Comment on above: Expected: 08/03/2022, Expires: 3 Start: 08-03-2022 End: 10-03-2022 Thyrotropin [Units/volume] in Serum or Plasma [facility] Work Phone: Comment on above: Expected: 08/03/2022, Expires: 3 Start: 05-30-2022 End: 07-30-2022 Magnesium [Mass/volume] in Serum or Plasma [facility] Work Phone: Comment on above: Expected: 05/30/2022, Expires: 2 Start: 05-30-2022 End: 07-30-2022 Thyrotropin [Units/volume] in Serum or Plasma [facility] Work Phone: Comment on above: Expected: 05/30/2022, Expires: 2 Start: 04-30-2022 Influenza vaccination [facility] Start: 04-14-2022 End: 06-14-2022 Clostridioides difficile toxin genes [Presence] in Stool by NURYS with probe detection [facility] Work Phone: Comment on above: Expected: 04/14/2022, Expires: 2 Start: 04-14-2022 End: 06-14-2022 Hemoglobin.gastrointestina l.lower [Presence] in Stool by Immunoassay [facility] Work Phone: Comment on above: Expected: 04/14/2022, Expires: 2 Start: 04-01-2022 Urine microalbumin profile DTAP,TDAP,TD (1 - Tdap) [facility] Comment on above: Postponed from 11/26/1966 (Declined at t his time) Start: 03-12-2022 End: 05-12-2022 Bacteria identified in Urine by Culture URINE CULTURE Microbiology Routine Acute cystitis without hematuria Expected: 03/12/2022 (Approximate), Expires: 05/12/2022 [facility] Work Phone: Comment on above: Expected: 03/12/2022 (Approximate), Expi res: 05/12/2022 Start: 02-17-2022 Adult depression screening assessment DEPRESSION SCREENING [facility] Start: 02-13-2022 PTRECHECKBerna, Provider: Tiffanie Bledsoe, Status: Pen, Time: 10:45 AM PTRECHECKBerna, Provider: Tiffanie Bledsoe, Status: Pen, Time: 10:45 AM [facility] Work Phone: Start: 02-11-2022 [email or web address], Provider: Montserrat Vaughan, Status: Pen, Time: 10:45 AM [email or web address], Provider: Montserrat Vaughan, Status: Pen, Time: 10:45 AM [facility] Work Phone: Start: 02-06-2022 [email or web address], Provider: Tiffanie Bledsoe, Status: Pen, Time: 10:45 AM [email or web address], Provider: Tiffanie Bledsoe, Status: Pen, Time: 10:45 [facility] Work Phone: Start: 02-04-2022 [email or web address], Provider: Montserrat Vaughan, Status: Pen, Time: 10:00 AM [email or web address], Provider: Montserrat Vaughan, Status: Pen, Time: 10:00 AM [facility] Work Phone: Start: 01-30-2022 End: 04-01-2022 Bacteria identified in Urine by Culture URINE CULTURE Microbiology Routine Recurrent UTI Expected: 01/30/2022, Expires: 04/01/2022 [facility] Work Phone: Comment on above: Expected: 01/30/2022, Expires: 2 Start: 01-30-2022 End: 04-01-2022 CBC W Auto Differential panel - Blood CBC + DIFF Lab Routine Encounter for monitoring chronic NSAID therapy Expected: 01/30/2022, Expires: 04/01/2022 [facility] Work Phone: Comment on above: Expected: 01/30/2022, Expires: 2 Start: 01-30-2022 End: 04-01-2022 Comprehensive metabolic 2000 panel - Serum or Plasma COMP METABOLIC PANEL Lab Routine Encounter for monitoring chronic NSAID therapy Expected: 01/30/2022, Expires: 04/01/2022 [facility] Work Phone: Comment on above: Expected: 01/30/2022, Expires: 2 Start: 01-30-2022 End: 04-01-2022 Magnesium [Mass/volume] in Serum or Plasma MAGNESIUM BLD Lab Routine Hypokalemia Expected: 01/30/2022, Expires: 04/01/2022 [facility] Work Phone: Comment on above: Expected: 01/30/2022, Expires: 2 Start: 01-30-2022 End: 04-01-2022 Thyrotropin [Units/volume] in Serum or Plasma TSH BLD Lab Routine Hypothyroidism, unspecified type Expected: 01/30/2022, Expires: 04/01/2022 [facility] Work Phone: Comment on above: Expected: 01/30/2022, Expires: 2 Start: 01-30-2022 End: 04-01-2022 Urinalysis complete panel - Urine URINALYSIS, WITH MICROSCOPIC Lab Routine Recurrent UTI Expected: 01/30/2022, Expires: 04/01/2022 [facility] Work Phone: Comment on above: Expected: 01/30/2022, Expires: 2 Start: 01-30-2022 End: 04-01-2022 VITAMIN D 25 HYDROXY VITAMIN D 25 HYDROXY Lab Routine Vitamin D deficiency Expected: 01/30/2022, Expires: 04/01/2022 [facility] Work Phone: Comment on above: Expected: 01/30/2022, Expires: Start: 01-30-2022 PTFUADULT4, Provider: Montserrat Vaughan, Status: Pen, Time: 10:00 AM PTFUADULT4, Provider: Montserrat Vaughan, Status: Pen, Time: 10:00 AM [facility]: Start: 01-28-2022 PTFUADULT4, Provider: Tiara Jose, Status: Pen, Time: 11:00 AM PTFUADULT4, Provider: Tiara Jose, Status: Pen, Time: 11:00 AM [facility] Work [facility]: Start: 01-23-2022 PTFUADULT4, Provider: Tiara Jose, Status: Pen, Time: 10:30 AM PTFUADULT4, Provider: Tiara Jose, Status: Pen, Time: 10:30 AM [facility] Work [facility]: Start: 01-21-2022 PTFUADULT4, Provider: Montserrat Vaughan, Status: Pen, Time: 10:45 AM PTFUADULT4, Provider: Montserrat Vaughan, Status: Pen, Time: 10:45 AM [facility] Work [facility]: Start: 01-09-2022 PTRECHECKA, Provider: Tiffanie Bledsoe, Status: Pen, Time: 2:15 PM PTRECHECKA, Provider: Tiffanie Bledsoe, Status: Pen, Time: 2:15 PM [facility] Start: 01-05-2022 PTFUADULT4, Provider: Tiffanie Bledsoe, Status: Pen, Time: 11:45 AM PTFUADULT4, Provider: Tiffanie Bledsoe, Status: Pen, Time: 11:45 AM Rehab [facility] Work Phone: Start: 01-02-2022 PTFUADULT4, Provider: Tiffanie Bledsoe, Status: Pen, Time: 11:45 AM PTFUADULT4, Provider: Tiffanie Bledsoe, Status: Pen, Time: 11:45 AM [facility] Work [facility]: Start: 12-30-2021 PTFUADULT4, Provider: Christiano Cardoza, Status: Pen, Time: 10:45 AM PTFUADULT4, Provider: Christiano Cardoza, Status: Pen, Time: 10:45 AM [facility] Work Phone: Start: 12-29-2021 PTFUADULT4, Provider: Tiffanie Bledsoe, Status: Pen, Time: 11:45 AM PTFUADULT4, Provider: Tiffanie Bledsoe, Status: Pen, Time: 11:45 AM [facility] Work Phone: Start: 12-26-2021 PTFUADULT4, Provider: Tiffanie Bledsoe, Status: Pen, Time: 1:30 PM PTFUADULT4, Provider: Tiffanie Bledsoe, Status: Pen, Time: 1:30 PM [facility] Work Phone: Start: 12-22-2021 PTFUADULT4, Provider: Tiffanie Bledsoe, Status: Pen, Time: 11:45 AM PTFUADULT4, Provider: Tiffanie Bledsoe, Status: Pen, Time: 11:45 AM [facility] Work Phone: Start: 12-18-2021 PTFUADULT4, Provider: Christiano Cardoza, Status: Pen, Time: 1:15 PM PTFUADULT4, Provider: Christiano Cardoza, Status: Pen, Time: 1:15 PM [facility] Work [facility]: Start: 11-05-2021 End: 11-06-2022 Sodium Chloride 0.9% Infusion . ; IV Bag Volume = 1,000 mL Run at: 150 mL/hr IntraVenous Start: 05-Nov-2021 End: 05-Nov-2022 Ordered: 05-Nov-2021 Kwaku Olson [facility] Start: 08-30-2021 ADVANCE DIRECTIVE DISCUSSION ADVANCE DIRECTIVE DISCUSSION [facility] Start: 08-30-2021 DEPRESSION ASSESSMENT DEPRESSION ASSESSMENT [facility] Start: 05-01-2021 Diabetes mellitus screening Diabetes Screening [facility] Start: 02-10-2019 Screening for malignant neoplasm of cervix Cervical Cancer Screening [facility] Start: 10-14-2018 End: 10-14-2018 Home Care Visit 10/14/2018 Home Care Visit Home Health Services Jade Gautam PT [facility] Start: 10-12-2018 End: 10-12-2018 Home Care Visit 10/12/2018 Home Care Visit Home Health Services Teja Pardo PTA [facility] Start: 10-10-2018 End: 10-10-2018 Home Care Visit 10/10/2018 Home Care Visit Home Health Services Teja Pardo PTA [facility] Start: 10-07-2018 End: 10-07-2018 Home Care Visit 10/07/2018 Home Care Visit Home Health Services Teja Pardo PTA [facility] Start: 10-06-2018 End: 10-06-2018 Appointment 10/06/2018 Appointment Home Health Services Isis Burdick RN [facility] Start: 10-05-2018 End: 10-05-2018 Home Care Visit 10/05/2018 Home Care Visit Home Health Services Teja Pardo PTA [facility] Start: 10-03-2018 End: 10-03-2018 Home Care Visit 10/03/2018 Home Care Visit Home Health Services Teja Pardo PTA [facility] Start: 09-30-2018 End: 09-30-2018 Home Care Visit 09/30/2018 Home Care Visit Home Health Services Teja Pardo PTA [facility] Start: 09-28-2018 End: 09-28-2018 Home Care Visit 09/28/2018 Home Care Visit Home Health Services Teja Pardo PTA [facility] Start: 09-26-2018 End: 09-26-2018 Home Care Visit 09/26/2018 Home Care Visit Home Health Services EdvinTejaROLF [facility] Start: 09-23-2018 End: 09-23-2018 Home Care Visit [facility] Start: 09-21-2018 End: 09-22-2018 Home Care Visit [facility] Start: 06-11-2016 Pneumococcal vaccination Pneumococcal Vaccine (2 of 2 - PCV) [facility] Start: 06-11-2016 Pneumococcal Vaccine: 50+ (2 of 2 - PCV) Pneumococcal Vaccine: 50+ (2 of 2 - PCV) [facility] Start: 06-11-2016 Pneumococcal Vaccine: 65+ (2 of 2 - PCV) Pneumococcal Vaccine: 65+ (2 of 2 - PCV) [facility] Start: 06-11-2016 Pneumococcal Vaccine: 65+ (3 - PCV) Pneumococcal Vaccine: 65+ (3 - PCV) [facility] Start: 06-11-2016 Pneumococcal Vaccine: 65+ (3 of 3 - PCV) Pneumococcal Vaccine: 65+ (3 of 3 - PCV) [facility] Start: 06-11-2016 Pneumococcal Vaccine: 65+ Years (2 of 2 - PCV) Pneumococcal Vaccine: 65+ Years (2 of 2 - PCV) [facility] Start: 06-11-2016 PNEUMOCOCCAL: 65+ (2 - PCV) PNEUMOCOCCAL: 65+ (2 - PCV) [facility] Start: 06-11-2016 PNEUMOCOCCAL: 65+ (3 - PCV) PNEUMOCOCCAL: 65+ (3 - PCV) [facility] Start: 11-26-[address] COLONOGRAPHY [facility] Start: 11-26-1992 FECAL OCCULT BLOOD FECAL OCCULT BLOOD [facility] Start: 11-26-1992 Screening for malignant neoplasm of colon [facility] Start: 11-26-1992 SIGMOIDOSCOPY SIGMOIDOSCOPY [facility] Start: 11-26-1966 Urine microalbumin profile [facility] Start: 11-26-1965 Depression Screening Depression Screening [facility] Start: 11-26-1965 Hepatitis C screening Hepatitis C Screening [facility] Start: 1945 Lipid panel Lipid Panel [facility] Start: 1945 Medicare Annual Wellness Visit Medicare Annual Wellness Visit (AWV) [facility] Start: 1945 Screening for osteoporosis Bone Density Scan [facility] 25-hydroxyvitamin D3 [Mass/volume] in Serum or Plasma VITAMIN D 25 HYDROXY Lab Routine Vitamin D deficiency 02/12/2022 12:42 PM EDT [facility] Work Phone: Bacteria identified in Urine by Culture URINE CULTURE Microbiology Routine Dysuria 01/22/2022 12:53 PM [facility] Work Phone: Bacteria identified in Urine by Culture URINE CULTURE Microbiology Routine Recurrent UTI 02/12/2022 12:56 PM [facility] Work Phone: Bacteria identified in Urine by Culture URINE CULTURE Microbiology Routine Dysuria 04/08/2022 5:56 PM [facility] Work Phone: End: 02-25-2024 Bacteria identified in Urine by Culture [facility] Work Phone: Comment on above: Once (Lab) for 1 Occurrences starting until 02/25/2024 End: 02-13-2025 Bacteria identified in Urine by Culture [facility] Work Phone: Comment on above: Once (Lab) for 1 Occurrences starting until 02/13/2025 BACTERIAL VAGINOSIS NAAT BACTERI AL VAGINOSIS NAAT Lab Routine Acute vulvitis 02/09/2024 4:27 PM [facility] GABRIELE/TRICHOMONAS NAAT GABRIELE /TRICHOMONAS NAAT Lab Routine Acute vulvitis 02/09/2024 4:27 PM [facility] Work Phone: Chronic hepatitis differentiation between hepatitis B and C virus panel - Serum or Plasma HEP REMOTE PANEL BL Lab Routine Endometrial cancer (HCC) 06/11/2023 9:51 AM [facility] Work Phone: Cortisol [Mass/volum e] in Serum or Plasma CORTISOL BLD Lab Routine Endometrial cancer (HCC) Acquired hypothyroidism 06/11/2023 8:54 AM [facility] Work Phone: Cortisol [Mass/volum e] in Serum or Plasma CORTISOL BLD Lab Routine Malignant neoplasm of uterus, unspecified site (HCC) Chronic deep vein thrombosis (DVT) of proximal vein of left lower extremity (HCC) Malaise and fatigue 06/25/2023 1:07 PM EDT [facility] Work Phone: Ct abdomen & pelvis w/contrast material CT ABD/PEL W IVCON Radiology Routine Malignant neoplasm of endometrium (HCC) 12/15/2021 3:29 PM EDT [facility] Work Phone: Ct thorax w/contrast material CT CHEST W IVCON Radiology Routine Malignant neoplasm of endometrium (HCC) 12/15/2021 3:29 PM EDT [facility] Work Phone: CYSTOSCOPY WHI CYSTOSCOPY WHI P rocedures Routine Microscopic hematuria Cystitis Ordered: 10/06/2023 [facility] Work Phone: Comment on above: Ordered: 10/06/2023 CYSTOSCOPY WHI CYSTOSCOPY WHI P rocedures Routine Urge urinary incontinence Ordered: 12/01/2023 [facility] Work Phone: Comment on above: Ordered: 12/01/2023 Cystourethroscopy CYSTO.PANENDO Procedures Routine Acute cystitis without hematuria Ordered: 03/23/2022 [facility] Work Phone: Comment on above: Ordered: 03/23/2022 ECG 12 lead ECG 12 lead ECG STAT 02/25/2024 12:50 PM EDT [facility] Work Phone: End: 02-26-2024 Echocardiography ECHO Cardiology Routine Endometrial cancer (HCC) Encounter for monitoring cardiotoxic drug therapy 1 Occurrences starting 02/25/2023 until 02/26/2024 [facility] Work Phone: Comment on above: 1 Occurrences starting 02/25/2023 until 02/26/2024 End: 02-25-2024 Extra Urine Tejada Tube [facility] Work Phone: Comment on above: Once for 1 Occurrences starting 02/25/20 until 02/25/2024 End: 02-13-2025 Extra Urine Tejada Tube [facility] Work Phone: Comment on above: Once for 1 Occurrences starting 02/14/20 until 02/13/2025 Hepatitis B virus co re Ab [Presence] in Serum HEP B CORE AB TOTAL Lab Routine Endometrial cancer (HCC) 06/11/2023 9:51 AM EDT [facility] Work Phone: Hepatitis B virus ballard rface Ab [Presence] in Serum HEP B SURF AB Lab Routine Endometrial cancer (HCC) 06/11/2023 9:51 AM EDT [facility] Work Phone: Hepatitis B virus ballard rface Ag [Presence] in Serum HEP B SURF AG SCRN Lab Routine Endometrial cancer (HCC) 06/11/2023 9:51 AM EDT [facility] Work Phone: Hepatitis C virus Ab [Presence] in Serum HEPATITIS C ANTIBODY IA WITH CONFIRMATION Lab Routine Endometrial cancer (HCC) [facility] End: 01-01-2024 NILSA SCREENING NILSA SCREENING Radiology Routine Encounter for screening mammogram for breast cancer 1 Occurrences starting 12/02/2022 until 01/01/2024 [facility] Work Phone: Comment on above: 1 Occurrences starting 12/02/2022 until 01/01/2024 End: 04-25-2023 NM PET/CT SKULL-THIGH SUBSEQUENT NM PET/CT SKULL-THIGH SUBSEQUENT Radiology Routine Malignant neoplasm of endometrium (HCC) 1 Occurrences starting 03/26/2022 until 04/25/2023 [facility] Work Phone: Comment on above: 1 Occurrences starting 03/26/2022 until 04/25/2023 End: 12-29-2023 NM PET/CT SKULL-THIGH SUBSEQUENT NM PET/CT SKULL-THIGH SUBSEQUENT Radiology Routine Endometrial cancer (HCC) 1 Occurrences starting 11/29/2022 until 12/29/2023 [facility] Work Phone: Comment on above: 1 Occurrences starting 11/29/2022 until 12/29/2023 End: 02-17-2023 NM PET/CT SKULL-THIGH SUBSEQUENT [facility] Work Phone: Comment on above: 1 Occurrences starting 02/17/2023 until 02/17/2023 End: 04-01-2024 NM PET/CT SKULL-THIGH SUBSEQUENT NM PET/CT SKULL-THIGH SUBSEQUENT Radiology Routine Malignant neoplasm of endometrium (HCC) 1 Occurrences starting 03/03/2023 until 04/01/2024 [facility] Work Phone: Comment on above: 1 Occurrences starting 03/03/2023 until 04/01/2024 Patient Education [facility] Work Phone: [facility] referral [facility] Work Phone: End: 06-03-[address] attenuation skull base mid-thigh NM PET/CT SKULL-THIGH INITIAL Radiology Routine 1 Occurrences starting 05/04/2022 until 06/03/2023 [facility] Work Phone: Comment on above: 1 Occurrences starting 05/04/2022 until 06/03/2023 PET+CT Guidance for localization of tumor of Skull base to mid-thigh-- W [id number] IV NM PET/CT SKULL-THIGH SUBSEQUENT Radiology Routine Malignant neoplasm of uterus, unspecified site (HCC) 04/17/2024 1:16 PM [facility] Work Phone: Thyrotropin [Units/v olume] in Serum or Plasma TSH BLD Lab Routine Endometrial cancer (HCC) Acquired hypothyroidism 06/11/2023 8:54 AM [facility] Work Phone: Thyrotropin [Units/v olume] in Serum or Plasma TSH BLD Lab Routine Malignant neoplasm of uterus, unspecified site (HCC) Chronic deep vein thrombosis (DVT) of proximal vein of left lower extremity (HCC) Malaise and fatigue 06/25/2023 1:07 PM [facility] Work Phone: Thyroxine (T4) free [Mass/volume] in Serum or Plasma T4 FREE/FREE THYROX Lab Routine Endometrial cancer (HCC) Acquired hypothyroidism 06/11/2023 8:54 AM [facility] Work Phone: Thyroxine (T4) free [Mass/volume] in Serum or Plasma T4 FREE/FREE THYROX Lab Routine Malignant neoplasm of uterus, unspecified site (HCC) Chronic deep vein thrombosis (DVT) of proximal vein of left lower extremity (HCC) Malaise and fatigue 06/25/2023 1:07 PM EDT [facility] Work Phone: End: 02-25-2024 Urinalysis complete W Reflex Culture panel - Urine [facility] Work Phone: Comment on above: Once (Lab) for 1 Occurrences starting until 02/25/2024 End: 02-13-2025 Urinalysis complete W Reflex Culture panel - Urine [facility] Service Area Work Phone: Comment on above: Once (Lab) for 1 Occurrences starting until 02/13/2025 End: 03-27-2024 US DVT LOWER LEFT US DVT LOWER LEFT Radiology Routine Discoloration of skin of lower leg Leg swelling 1 Occurrences starting 02/26/2023 until 03/27/2024 [facility] Work Phone: Comment on above: 1 Occurrences starting 02/26/2023 until 03/27/2024 [facility] [place] [facility] Immunizations Immunization Date Immunization Notes Care Provider Mary Ellen amaya 06-08-2023 COVID-19 original vaccine, age 12+ yr, monovalent (PFIZER-BIONTECH - [place] TOP) [facility] Work Phone: [facility] 06-08-2023 Pfizer Covid-19 (Comirnaty) 06-08-2023 respiratory syncytia l virus (RSV) vaccine, bivalent (ABRYSVO) [facility] Work Phone: [facility] 05-12-2023 influenza (aIIV4) vaccine, age 65+ yr, quadrivalent, PF (FLUAD QUAD) [facility] Work Phone: [facility] 05-12-2023 influenza, injectabl e, quadrivalent, preservative free 05-12-2023 influenza virus vacc ine, unspecified formulation Pet Mota [facility] 01-28-2023 Covid Moderna Bivale nt Booster 05-27-2022 Covid Pfizer Bivalen t Booster MD Rosmery Horn 05-27-2022 influenza (aIIV4) vaccine, age 65+ yr, quadrivalent, PF (FLUAD QUAD) [facility] Work Phone: [facility] 05-27-2022 influenza, injectabl e, quadrivalent, preservative free 12-11-2021 Napoleon Matamoros) MD Rosmery Horn [facility] 10-28-2021 tetanus toxoid, redu mecca diphtheria toxoid, and acellular pertussis vaccine, adsorbed 07-03-2021 Napoleon Matamoros) MD Rosmery Horn [facility] 10-27-2020 COVID-19 vaccine, fu ll dose (LIBBY) Rosmery Horn MD Work Phone: [facility] Work Phone: Comment on above: Series: 10-07-2020 COVID-19 vaccine, fu ll dose (LIBBY) Rosmery Horn MD Work Phone: [facility] Work Phone: 09-09-2020 COVID-19 vaccine, fu ll dose (MODERNA) Rosmery Horn MD Work Phone: [facility] Work Phone: Comment on above: Series: 04-24-2020 influenza, high-dose , quadrivalent vaccine (FLUZONE HIGH DOSE QUADRIVALENT) Rosmery Horn MD Work Phone: [facility] Work Phone: 04-19-2019 zoster vaccine recombinant Rosmery Horn MD Work Phone: [facility] Work Phone: Comment on above: Series: 02-13-2019 zoster vaccine recombinant Rosmery Horn MD Work Phone: [facility] Work Phone: Comment on above: Series: 06-20-2018 influenza, injectabl e, quadrivalent, preservative free 06-20-2018 influenza, seasonal, injectable 06-20-2018 influenza, seasonal, injectable, preservative free Rosmery Horn MD Work Phone: [facility] Work Phone: 06-06-2018 influenza, high dose seasonal, preservative-free Rosmery Horn MD Work Phone: [facility] Work Phone: 06-11-2015 pneumococcal polysaccharide vaccine, 23 valent Rosmery Horn MD Work Phone: [facility] Work Phone: Comment on above: Series: 06-25-2014 zoster vaccine, live Rosmery Horn MD Work Phone: [facility] Work Phone: Comment on above: Series: 12-23-2013 pneumococcal polysaccharide vaccine, 23 valent Rosmery Horn MD Work Phone: [facility] Work Phone: Comment on above: Series: Payers Date Payer Category Payer Self-pay [id number] 2021 Medicare AETNA MEDICARE A ETNA MEDICARE PPO [id number] 2021-Present [phone] [address] [place] [address] O [id number] 2021 Medicare (Managed Care) [id number]. [id number] [address] [facility] [id number] 2013 Medicare [id number] 2013 Medicare AETNA MANAGED [place] DICARE AETNA MEDICARE PLAN (PPO) [id number] 2013-Present [id number] 2013 Medicare AETNA MANAGED [place] AETNA MEDICARE PLAN (PPO) [id number] 2013-Present [id number] 2000 Medicare [id number] 1947 Unknown [id number] 2.16.840.1.988597.3.579.2.9 03 1947 Unknown [id number] 2.16.840.1.425005.3.579.2.9 03 1947 Unknown [id number] 2.16.840.1.384007.3.579.2.9 03 1947 Unknown [id number] 2.16.840.1.086698.3.579.2.9 03 1947 Unknown [id number] 2.16.840.1.036957.3.579.2.9 03 1947 Unknown [id number] 2.16.840.1.608678.3.579.2.9 03 1947 Unknown [id number] 2.16.840.1.393627.3.579.2.9 03 1947 Unknown [id number] 2.16.840.1.959623.3.579.2.9 03 1947 Unknown [id number] 2.16.840.1.549018.3.579.2.9 03 1947 Unknown [id number] 2.16.840.1.837010.3.579.2.9 03 1947 Unknown [id number] 2.16840.1.818803.3.579.2.9 03 1947 Unknown [id number] 2.16840.1.682110.3.579.2.1 069 1947 Unknown [id number] 2.16840.1.428106.3.579.2.2 78 1947 Unknown [id number] 2.16840.1.060972.3.579.2.1 245 1947 Unknown [id number] 2.840.1.172135.3.579.2.1 245 1947 Unknown [id number] 2.16840.1.674661.3.579.2.1 245 1947 Unknown [id number] 2.16.840.1.690402.3.579.2.1 243 1947 Unknown [id number] 2.16.840.1.874308.3.579.2.1 243 1947 Unknown [id number] 2.16.840.1.756864.3.579.2.1 243 1947 Unknown [id number] 2.16.840.1.261554.3.579.2.1 243 1947 Unknown [id number] 2.16.840.1.600916.3.579.2.1 243 1947 Unknown [id number] 2.16.840.1.503131.3.579.2.1 243 1947 Unknown [id number] 2.16.840.1.652447.3.579.2.1 243 1947 Unknown [id number] 2.16.840.1.725523.3.579.2.1 243 1947 Unknown [id number] 2.16.840.1.731934.3.579.2.1 243 1947 Unknown [id number] 2.16.840.1.686554.3.579.2.1 243 Unknown Unknown [employer] [place] [id number] Unknown [id number] 2.16.840.1.708571.3.579.2.4 62 Social History Date Type Detail Facility Tobacco smoking stat [facility] Unknown if ever smoked [facility] Start: 1945 [facility] Start: 08-31-2022 End: 06-29-2023 Tobacco smoking consumption unknown Start: 04-08-2022 End: 08-24-2023 Tobacco smoking status ARIS Never smoked tobacco [facility] Start: 12-03-2021 End: 02-09-2024 Alcohol intake Current drinker of alcohol (finding) [facility] Start: 04-11-2021 History SDOH Alcohol Comment 1 drink per month not used in [address] [facility] Start: 1945 Sex Assigned At Female [facility] Start: 11-25-2021 End: 05-18-2022 Exposure to SARS-CoV-2 (event) Unable to assess [facility] Start: 10-28-2020 End: 01-25-2025 Exposure to SARS-CoV-2 (event) Not sure [facility] Start: 01-30-2022 History SDOH Alcohol Frequency [address] [facility] Start: 01-30-2022 History SDOH Social Connections Phone [address] [facility] Start: 01-30-2022 History SDOH Social Connections Get Together [address] [facility] Start: 01-30-2022 History SDOH Social Connections Sabianist [address] [facility] Start: 01-30-2022 History SDOH Physica l Activity DPW [address] [facility] Start: 01-30-2022 History SDOH Stress 2 [facility] Start: 04-08-2022 End: 08-24-2023 Tobacco use and exposure Smokeless tobacco non-user [facility] Start: 09-08-2018 None [facility] Start: 09-08-2018 Alone [facility] Start: 09-10-2018 Non-smoker [facility] Start: 01-30-2022 End: 02-26-2023 History of Social function [facility] [facility] Start: 01-30-2022 End: 02-26-2023 Social connection and isolation panel [facility] Do you belong to any clubs or organizations such as gnosticism groups, unions, fraternal or athletic groups, or school groups? Yes [facility] Are you now , , , , never or living with a partner? [facility] How often to you hav e a drink containing alcohol? Never [facility] Average Number of Drinks Not on file [facility] Do you feel stress - tense, restless, nervous, or anxious, or unable to sleep at night because your mind is troubled all the time - these days [OSQ] Only a little [facility] (I/We) worried lucila er (my/our) food would run out before (I/we) got money to buy more. Never true [facility] In the past 12 month s, was there a time when you were not able to pay the mortgage or rent on time? No [facility] Start: 05-10-2021 Gender identity Identifies as female gender (finding) [facility] Start: 05-10-2021 Sexual orientation Heterosexual (leeann perea) [facility] Start: 08-24-2023 End: 02-13-2025 Alcoholic beverage intake Lifetime non-drinker (finding) [facility] Work Phone: Start: 12-27-2023 Alcohol Comment 1 glass per year [facility] Start: 12-11-2016 [facility] NE[facility]ATED: Highlighted row Medical Equipment Procedure Code Equipment Code Equipment Origin al Text Equipment Identifier Dates System Xen Porci ne Dermis Glaucoma Injector Sterile Latex Free - [id number] Start: 11-06-2020 Comment on above: Description: Not Exp lanted. Explant button hit by mistake. Issue corrected. System Xen Porci ne Dermis Glaucoma Injector Sterile Latex Free - [id number] Start: 04-11-[address] 6.6fr 2.2mm 1.4mm Titanium Carbothane 55cm Implantable - [id number] Start: 12-14-2016 Goals Date Patient Goal Desired Activity /State Functional Status Date Assessment Result Facility 02-13-2025 Fleming - suicide severity rating scale screener - recent [C-SSRS] [facility] Work Phone: 07-09-2023 Functional status Chair;Bathroom Privileg e Work Phone: 06-29-2023 Functional status Ambulates;Chair Work Phone: 06-29-2023 Functional status Rolling Walker Work Phone: 03-24-2023 Are you deaf, or do you have serious difficulty hearing No 03/24/2023 1:52 PM EDT Beth Collazo RN No [facility] 03-24-2023 Are you blind, or do you have serious difficulty seeing, even when wearing glasses No 03/24/2023 1:52 PM ALLANT Beth Collazo RN No [facility] 03-24-2023 Do you have serious difficulty walking or climbing stairs No 03/24/2023 1:52 PM EDT Beth Collazo RN No [facility] 03-24-2023 Do you have difficul ty dressing or bathing No 03/24/2023 1:52 PM EDT Beth Collazo RN No [facility] 03-24-2023 Because of a physica l, mental, or emotional condition, do you have difficulty doing errands alone such as visiting a physician's office or shopping Yes 03/24/2023 1:52 PM Beth Ng RN Yes [facility] 09-19-2022 Functional status Chair [facility] Work Phone: 09-11-2022 Functional status Ambulates [facility] Work Phone: 09-09-2022 Functional status [employer] Work Phone: 09-07-2022 Functional status Chair [facility] Work Phone: 09-06-2022 Functional status [employer] Work Phone: 09-03-2022 Functional status Chair [facility] Work Phone: 09-02-2022 Functional status Rolling Walker Work Phone: Mental Status Date Assessment Result Facility 07-09-2023 Cognitive function Voice/Name [facility] Work Phone: 06-30-2023 Cognitive function Appropriate;Cooperativ e Work Phone: 06-29-2023 Cognitive function Voice/Name [facility] Work Phone: 06-26-2023 Cognitive function Level Of Cons ciousness Awake;Alert;Appropriate;Fol lows Commands Work Phone: 03-24-2023 Because of a physica l, mental, or emotional condition, do you have serious difficulty concentrating, remembering, or making decisions No 03/24/2023 1:52 PM Beth Ng, RN No [facility] 03-12-2023 Cognitive function Level Of Cons ciousness Awake;Alert;Appropriate;Fol lows Commands Work Phone: 09-19-2022 Cognitive function Voice/Name [facility] Work Phone: 09-17-2022 Cognitive function Appropriate;Shirley hernandez Work Phone: 09-11-2022 Cognitive function Voice/Name [facility] Work Phone: 09-07-2022 Cognitive function Voice/Name [facility] Work Phone: 09-03-2022 Cognitive function Voice/Name [facility] Work Phone: Clinical Notes 05-23-2019 to [...] of uterine or bladder cancer, per patients ssvdjlqv-xo-gch. Patient has been experiencing frequent UTI symptoms- [...] [place] can be contacted with questions at [phone] at any time. Routing to Dr. Salmon to to review and advise with any recommendations. Nile Allen RN [facility] 03-01-2025 Miscellaneous Notes Spoke with Aurora Wolfe, nurse practitioner @ . Verified last name and of patient. Aurora will be assuming care for Rosita, under palliative services. Aurora states that patient has some sort of uterine or bladder cancer, per patients naxtwpkg-rv-end. Patient has been experiencing frequent UTI symptoms- [...] [place] can be contacted with questions at [phone] at any time. Routing to Dr. Salmon to to review and advise with any recommendations. Nile Allen RN ACCESS ANALYST from [facility] is calling with a question regarding a medication she would like to start this patient on. documented in this encounter [facility] 02-28-2025 Telephone encounter Note ACCESS ANALYST from [facility] is calling with a question regarding a medication she would like to start this patient on. [facility] 08-17-2024 History of Present illness Narrative [facility] RICARDO NOTE: Name: Rosita Kennedy, 78 y.o. CSN:[id number] PCP: Terry Espino MD ALL: Allergies Allergen [...] onset of illness. Has not utilized any byco-hiu-dxbbrdd medications. Was recently treated for possible urinary [...] Days 2 through 5. 6 tablet 0 zlyjrsahdforvyk-uswwwqfdy-WH 2-30-10 mg/5 mL syrup Take 5 mL [...] Resource Strain: Low Risk (01/30/2022) Received from [facility] Overall Financial Resource Strain (CARDIA) Difficulty of Paying Living Expenses: Not hard at all Food Insecurity: No Food Insecurity (01/30/2022) Received from [facility] Hunger Vital Sign Worried About Running Out of Food in the Last Year: Never true Ran Out of Food in the Last Year: Never true Transportation Needs: Unmet Transportation Needs (01/30/2022) Received from [facility] PRAPARE - Transportation Lack of Transportation (Medical): No Lack of Transportation (Non-Medical): Yes Physical Activity: Inactive (01/30/2022) Received from [facility] Exercise Vital Sign Days of Exercise per Week: 0 days Minutes of Exercise per Session: 0 min Stress: No Stress Concern Present (01/30/2022) Received from [facility] [place] of Occupational Health - Occupational Stress Questionnaire Feeling of Stress : Only a little Social Connections: Moderately Integrated (01/30/2022) Received from [facility] Social Connection and Isolation Panel [NHANES] Frequency of Communication with Friends and Family: More than three times a week Frequency of Social Gatherings with Friends and Family: Three times a week Attends Restorationism Services: More than 4 times per year Active Member of Clubs or Organizations: Yes Attends Club or Organization Meetings: More than 4 times per year Marital Status: Intimate Partner Violence: Not on file Housing Stability: Low Risk (01/30/2022) Received from [facility], [facility] Housing Stability Vital Sign Unable to [...] and frontal sinus tenderness present. Mouth/Throat: Lips: [place]. Mouth: Mucous membranes are moist. Pharynx: Uvula [...] Days 2 through 5. Acute cough - orygdiynlcqtaiq-kkwjtteqn-FL 2-30-10 mg/5 mL syrup; Take 5 mL [...] Lindsey Crisostomo APRN, DREW Advanced Practice Provider [facility] Please note: While the patient may or may not have received printed discharge paperwork, all relevant medical findings, test results, and treatment details are accessible through the electronic medical record system. The patient is encouraged to review their chart via the patient portal for comprehensive information and follow-up instructions. documented in this encounter [facility] Work Phone: 08-08-2024 History of Present illness Narrative [facility] RICARDO NOTE: Name: Rosita Kennedy, 78 y.o. CSN:[id number] PCP: Terry Espino MD ALL: Allergies Allergen [...] Resource Strain: Low Risk (01/30/2022) Received from [facility] Overall Financial Resource Strain (CARDIA) Difficulty of Paying Living Expenses: Not hard at all Food Insecurity: No Food Insecurity (01/30/2022) Received from [facility] Hunger Vital Sign Worried About Running Out of Food in the Last Year: Never true Ran Out of Food in the Last Year: Never true Transportation Needs: Unmet Transportation Needs (01/30/2022) Received from [facility] PRAPARE - Transportation Lack of Transportation (Medical): No Lack of Transportation (Non-Medical): Yes Physical Activity: Inactive (01/30/2022) Received from [facility] Exercise Vital Sign Days of Exercise per Week: 0 days Minutes of Exercise per Session: 0 min Stress: No Stress Concern Present (01/30/2022) Received from [facility] [place] of Occupational Health - Occupational Stress Questionnaire Feeling of Stress : Only a little Social Connections: Moderately Integrated (01/30/2022) Received from [facility] Social Connection and Isolation Panel [NHANES] Frequency of Communication with Friends and Family: More than three times a week Frequency of Social Gatherings with Friends and Family: Three times a week Attends Restorationism Services: More than 4 times per year Active Member of Clubs or Organizations: Yes Attends Club or Organization Meetings: More than 4 times per year Marital Status: Intimate Partner Violence: Not on file Housing Stability: Low Risk (01/30/2022) Received from [facility] Housing Stability Vital Sign Unable to Pay [...] Result Value Ref Range POC Color, Urine [place] (A) Straw, Yellow, Light-Yellow POC Appearance, Urine Clear Clear POC Glucose, Urine NEGATIVE NEGATIVE mg/dl POC Bilirubin, Urine NEGATIVE NEGATIVE POC Ketones, Urine NEGATIVE NEGATIVE mg/dl POC Specific Phillips, Urine 1.020 1.005 - 1.035 POC Blood, [...] Lindsey Crisostomo APRN, DNP Advanced Practice Provider [facility] Please note: While the patient may or may not have received printed discharge paperwork, all relevant medical findings, test results, and treatment details are accessible through the electronic medical record system. The patient is encouraged to review their chart via the patient portal for comprehensive information and follow-up instructions. documented in this encounter [facility] Work Phone: 04-17-2024 History of Present [...] PATIENT PRESENTS WITH AN IMPLANTABLE OR ATTACHED TAX DIRECTOR: No CREATININE: Creatinine Date Value Ref Range [...] 1213 PATIENT DISCHARGED TO: Ambulatory patient, left [place] department area. A Diagnostic radioactive procedure has taken place, with no further precautions necessary other than routine body substance precautions. More information regarding radiation safety can be found using this link: [email or web address] [email or web address]-%20Diagnostic%20N uclear%20Medicine%20Procedures.p df SIGNATURE: RT Miguel(Maribel) PATIENT NAME: Rosita Kennedy DATE: April 17, 2024 TIME: 12:25 PM PAGER/CONTACT #: documented in this encounter [facility] 04-17-2024 Note HNO ID: [id number] Author: CHRISTIAN MORALES RT(R) Service: Nuclear Medicine [...] PATIENT PRESENTS WITH AN IMPLANTABLE OR ATTACHED TAX DIRECTOR: No CREATININE: Creatinine Date Value Ref Range [...] 1213 PATIENT DISCHARGED TO: Ambulatory patient, left [place] department area. A Diagnostic radioactive procedure has taken place, with no further precautions necessary other than routine body substance precautions. More information regarding radiation safety can be found using this link: [email or web address]%[email or web address] 0Protection%20-% 20Diagnostic%20Nuclear%20Medicin e%20Procedures.pdf SIGNATURE: RT Miguel(R) PATIENT NAME: Rosita Kennedy DATE: April 17, 2024 TIME: 12:25 PM PAGER/CONTACT #: [facility] 02-25-2024 Hospital Discharge instructions Bahman Ann DO - 02/25/2024 5:01 PM EDT Two capfuls of Miralax until bowel movement and then back to one capful daily. The following attachments cannot be sent through Care Everywhere.Constipation in adults (Cypriot)Dizziness, Adult ED (Cypriot)Urinary Tract Infection Discharge Instructions, Adult (Cypriot)documented in this encounter [facility] Work Phone: 02-25-2024 Emergency department Note [...] fall or trauma. Additional History Obtained from: Habjrzov-vf-rcj at the bedside. Physical Exam: VS: As [...] Urine (*) Appearance, Urine Turbid (*) Specific Phillips, Urine 1.026 pH, Urine 6.0 Protein, Urine [...] performed using a different testing methodology at [facility] than at other [facility]. Direct result comparisons should only be made within the same method. URINE CULTURE URINALYSIS WITH REFLEX CULTURE AND MICROSCOPIC Narrative: The following orders were created for panel order Urinalysis with Reflex Culture and Microscopic. Procedure Abnormality Status --------- ------ Urinalysis with Reflex C...[[id number]] Abnormal Final result Extra Urine Tejada Tube[[id number]] In process Please view results for these tests on the individual orders. EXTRA URINE TEJADA TUBE CT head wo IV contrast Final Result No evidence of acute cortical infarct or intracranial hemorrhage. No evidence of intracranial hemorrhage or displaced skull fracture. MACRO: None Signed by: Jason Orellana 02/25/2024 4:30 PM Dictation workstation: [id number] CT abdomen pelvis w IV contrast Final [...] Jason Orellana 02/25/2024 4:43 PM Dictation workstation: [id number] Medical Decision Making: Patient appears well nontoxic. [...] ED Physician in the absence of a spray technician: yes Comments: EKG interpreted by Dr. Bahman Ann: Normal sinus rhythm at 87 bpm. DC interval 148 ms. QTc of [address] changes. Bahman Ann DO 02/25/24 1801 documented in this encounter [facility] Work Phone: 02-25-2024 Physician Emergency department [...] fall or trauma. Additional History Obtained from: Joeqvldt-hr-gto at the bedside. Physical Exam: VS: As [...] Urine (*) Appearance, Urine Turbid (*) Specific Phillips, Urine 1.026 pH, Urine 6.0 Protein, Urine [...] performed using a different testing methodology at [facility] than at other [facility]. Direct result comparisons should only be made within the same method. URINE CULTURE URINALYSIS WITH REFLEX CULTURE AND MICROSCOPIC Narrative: The following orders were created for panel order Urinalysis with Reflex Culture and Microscopic. Procedure Abnormality Status --------- ------ Urinalysis with Reflex C...[[id number]] Abnormal Final result Extra Urine Tejada Tube[[id number]] In process Please view results for these tests on the individual orders. EXTRA URINE TEJADA TUBE CT head wo IV contrast Final Result No evidence of acute cortical infarct or intracranial hemorrhage. No evidence of intracranial hemorrhage or displaced skull fracture. MACRO: None Signed by: Jason Orellana 02/25/2024 4:30 PM Dictation workstation: [id number] CT abdomen pelvis w IV contrast Final [...] Jason Orellana 02/25/2024 4:43 PM Dictation workstation: [id number] Medical Decision Making: Patient appears well nontoxic. [...] ED Physician in the absence of a spray technician: yes Comments: EKG interpreted by Dr. Bahman Ann: Normal sinus rhythm at 87 bpm. DC interval 148 ms. QTc of [address] changes. Bahman Ann DO 02/25/24 180 [facility] Work Phone: 02-17-2024 History of Present [...] uses Tylenol. And it does help. ESAS ([place] Symptom Assessment System) Pain: no Shortness of [...] patient, obtaining and/or reviewing separately obtained history, rffl-il-etey patient care, performing a medically appropriate examination, [...] Terry Espino MD documented in this encounter [facility] Work Phone: 02-09-2024 Instructions Franklin Salmon [...] up as needed. documented in this encounter [facility] 02-09-2024 History of Present illness Narrative Female [...] received about pain medications helpful? Not sure Motion Picture Equipment Supervisor offered, exam chaperoned by Veronica Payton MD [...] Franklin Salmon MD documented in this encounter [facility] 02-09-2024 Note HNO ID: [id number] Author: FRANKLIN SALMON MD Service: ? Author [...] received about pain medications helpful? Not sure Motion Picture Equipment Supervisor offered, exam chaperoned by Veronica Payton MD [...] for radiation cyst (more content not included)... [facility] 01-17-2024 Telephone encounter Note Called pt's Winter BERGERON; verified pt's name/. Winter reports pt has external vaginal pain with urination (contact between urine and vaginal/vulvar tissue causes burning). Winter unsure if pt has other symptoms. RN attempted to call Rosita, but calls went straight to . Called Winter back and advised her we would send a Apps4Allt message for her to d/w Rosita and respond to later, as office is closing. Winter verbalized understanding and had no further questions. Deborah Aguilar RN January 17, 2024 4:[address] [facility] 01-17-2024 Miscellaneous Notes Called pt's Winter BERGERON; verified pt's name/. Winter reports pt has external vaginal pain with urination (contact between urine and vaginal/vulvar tissue causes burning). Winter unsure if pt has other symptoms. RN attempted to call Rosita, but calls went straight to . Called Winter back and advised her we would send a [employer] message for her to d/w Rosita and respond to later, as office is closing. Winter verbalized understanding and had no further questions. Deborah Aguilar RN January 17, 2024 4:42 PM Pt's DIL called back and stated that the burning is on the outside and she wants to know if a culture would show something on the outside. She can be reached at [phone]. See my chart Urine culture ordered Lisseth Mccullough RN Patient called in stating she is feeling very dry, and like she may have an infection. She is also experiencing pain/burning with urination. She said a message was also sent via [employer] because she isn't feeling too good. Dtr in law would like to be called [phone] documented in this encounter [facility] 01-17-2024 Telephone encounter Note Pt's DIL called back and stated that the burning is on the outside and she wants to know if a culture would show something on the outside. She can be reached at [phone]. [facility] 01-17-2024 Telephone encounter Note See my chart Urine culture ordered Lisseth Mccullough RN [facility] 01-17-2024 Telephone encounter Note Patient called in stating she is feeling very dry, and like she may have an infection. She is also experiencing pain/burning with urination. She said a message was also sent via [employer] because she isn't feeling too good. Dtr in law would like to be called [phone] [facility] 12-28-[address] Salmon, I [...] not see a response scanned back into [facility]. Just wanted to check in to see if you have received anything further and if I can be of any assistance in obtaining anticoagulation instructions. Thank you, Kelley Stone APRN.MALIK T [facility] 12-28-[address] Salmon, I saw [...] not see a response scanned back into [employer]ley. Just wanted to check in to see if you have received anything further and if I can be of any assistance in obtaining anticoagulation instructions. Thank you, Kelley Stone APRN.MALIK documented in this encounter [facility] 12-27-2023 Instructions Kelley Stone APRN.CNP - 12/27/2023 2:42 PM EDT PATIENT PREOPERATIVE INSTRUCTIONS Franklin Salmon MD has scheduled you for your procedure at this surgery center: [facility]: [phone] -- [address] [address]. Please read below carefully for your personalized [...] Procedures: - YOU MUST HAVE A RESPONSIBLE PROGRAM OR PROJECT ADMINISTRATOR TAKE YOU HOME. A CNC MILL PROGRAMMER OR MANAGER CARE MANAGEMENT CANNOT BE MADE A RESPONSIBLE PROGRAM OR PROJECT ADMINISTRATOR. - We recommend that a responsible person stays with you overnight to take care of you. - You cannot stay in a hotel alone after outpatient surgery. You will not be permitted to have your surgery, if you do not have someone to take care of you. If you already have an Advance Directive, please fax a copy to [phone] or email to for it to be [...] Kelley Stone APRN.CNP documented in this encounter [facility] 12-27-2023 History and physical note HISTORY AND [...] their office as no response scanned into Pley at time of PACC appointment. Radiation cystitis [...] large neck Non-male patient STOP-Bang Score: 1 [id number] Score: Age: >=75 Sex: female CHF history: No Hypertension history: No Stroke/TIA/thromboembolism history: Yes Vascular disease history: No Diabetes history: No [id number] Score: 5 ANESTHESIA FINDINGS: Intubation History: No [...] fibrillation, CAD, chest pain, CHF, hypertension, recent CT and murmur/valvular heart disease. GI: No history of GI symptoms or problems. No history of esophageal varices, recent ascites, or ETOH greater than 2 drinks per day. : See HPI. Negative for: nephrolithiasis and renal failure. CAKE WRINGER: Negative for abnormal vaginal bleeding, abnormal vaginal [...] Prior to Admission medications as of 12/27/23 5137 Medication Sig Last Dose Taking XARELTO 20 [...] 356 QTC Calculation (Bazett) 428 Calculated P [place] 27 Calculated R Corydon -24 Calculated T [place] 32 Impression SINUS RHYTHM WITH FREQUENT PACs MINIMAL VOLTAGE CRITERIA FOR LVH, MAY BE NORMAL VARIANT ABNORMAL ECG Reconfirmed by NANCY PARK DO ([id number]) on 06/16/2023 4:33:51 PM Recent Results (from the past 97316 hour(s)) ECHO Collection Time: 03/04/23 2:44 PM [...] 27, 2023 TIME: 2:38 PM PAGER/CONTACT #: [facility] 12-27-2023 History and physical note HISTORY AND [...] their office as no response scanned into Pley at time of PACC appointment. Radiation cystitis [...] large neck Non-male patient STOP-Bang Score: 1 [id number] Score: Age: >=75 Sex: female CHF history: No Hypertension history: No Stroke/TIA/thromboembolism history: Yes Vascular disease history: No Diabetes history: No [id number] Score: 5 ANESTHESIA FINDINGS: Intubation History: No [...] COVID-19 original vaccine, age 12+ yr, monovalent (American Board of Addiction Medicine (ABAM) - [facility]) 01/28/2023 Imm Admin: COVID-19 vaccine, age 12+ yr, bivalent (MODERNA) 05/27/2022 Imm Admin: COVID-19 vaccine, age 12+ yr, bivalent (American Board of Addiction Medicine (ABAM)) Only the first 3 history entries have [...] fibrillation, CAD, chest pain, CHF, hypertension, recent CT and murmur/valvular heart disease. GI: No history of GI symptoms or problems. No history of esophageal varices, recent ascites, or ETOH greater than 2 drinks per day. : See HPI. Negative for: nephrolithiasis and renal failure. CAKE WRINGER: Negative for abnormal vaginal bleeding, abnormal vaginal [...] 356 QTC Calculation (Bazett) 428 Calculated P Corydon 27 Calculated R Corydon -24 Calculated T Corydon 32 Impression SINUS RHYTHM WITH FREQUENT PACs MINIMAL VOLTAGE CRITERIA FOR LVH, MAY BE NORMAL VARIANT ABNORMAL ECG Reconfirmed by NANCY PARK DO ([id number]) on 06/16/2023 4:33:51 PM Recent Results (from the past 93237 hour(s)) ECHO Collection Time: 03/04/23 2:44 PM [...] PM PAGER/CONTACT #: documented in this encounter [facility] 12-24-2023 Telephone encounter Note Pt did not take trospium and solifenacin concurrently. Trospium was discontinued and solifenacin initially prescribed at 11/18/23 OV. Deborah Aguilar RN December 24, 2023 4:[address] [facility] 12-24-2023 Miscellaneous Notes Pt did not take trospium and solifenacin concurrently. Trospium was discontinued and solifenacin initially prescribed at 11/18/23 OV. Deborah Aguilar RN December 24, 2023 4:05 PM Reason for call: other - Provider name: Dr Salmon Additional comments: MAGY torres mailed letter Drug Utilization review program provides educational information regarding the patient drug therapy. Duplication. Solifenacin and Trospium. Letter scan into Veebow Recommendation: routed to nurse triage pool Last visit in this department: Visit date not found Last distance health visit in this department: Visit date not found Next visit in this department: Visit date not found documented in this encounter [facility] 12-24-2023 Telephone encounter Note Reason for call: [...] in this department: Visit date not found [facility] Work Phone: 12-24-2023 Telephone encounter Note Called Winter; verified pt's name/. Confirmed that order is for Botox, and that per Dr. Salmon's notes from [facility], no biopsies are planned. Winter verbalized understanding [...] Aguilar RN December 24, 2023 10:[address] [facility] 12-24-2023 Miscellaneous Notes Called Winter; verified pt's name/. Confirmed that order is for Botox, and that per Dr. Salmon's notes from [facility], no biopsies are planned. Winter verbalized understanding and had no further questions. Surgery 01/11/24 Panel 1 Surgeon Role Service Franklin Salmon MD Primary Urology Procedure: BIOPSY BLADDER Laterality Anesthesia Op Region N/A Monitored Anesthesia Care Bladder Procedure: CYSTOURETHROSCOPY W/INJECTION(S) FOR CHEMODENERVATION OF THE BLADDER Laterality Anesthesia Op Region N/A Monitored Anesthesia Care Bladder CLARICE Salmon 12/16/23 Impression: Rosita Kennedy is a [...] and confused. Veronica can be reached at [phone] documented in this encounter [facility] 12-24-2023 Telephone encounter Note Pt concerns being addressed in separate encounter. Deborah Aguilar RN December 24, 2023 10:[address] [facility] 12-24-2023 Miscellaneous Notes Pt concerns being addressed [...] date not found documented in this encounter [facility] 12-24-2023 Telephone encounter Note Separate encounter initiated [...] Will manage pt concerns in this encounter. [facility] 12-24-2023 Telephone encounter Note Patient daughter in law Veronica called in because they were under the impression the patient was having Botox on January [address] Salmon, and that currently states Bladder Biopsy. The patient does not want a biopsy. The family is very concerned and confused. Veroncia can be reached at [phone] [facility] 12-24-2023 Telephone encounter Note Reason for call: [...] this department: Visit date not found [facility] visit in this department: Visit date not found Next visit in this department: Visit date not found [facility] Work Phone: 12-17-2023 Instructions Estela Zhang - [...] Fish Oil, Flax Seed, Kaiden, Ginkgo, Ginseng, Netos's Wort, Tumeric, and anti-inflammatory medications including Motrin, [...] not wear jewelry, body piercing(s), makeup, nail micronesian, hairpins, or contacts on the day of [...] expanding your lungs while in the hospital. [facility] TEAM At the [facility], we have a multidisciplinary team of caregivers that includes fellows, residents, nurse practitioners (pantograph watcher), physician assistants (PAs), clinical nurse specialists (CNSs), nurses, medical assistants (MAs), patient care nursing assistants (PCNAs), social workers, comp field case manager and many others. We all have different [...] SURGERY If you are having surgery at [facility]: On the day before your surgery, you must call [phone] to find out your surgery arrival time. If you are having surgery at a [facility] ([facility], [facility]): You will receive a call the day before surgery to give you your surgery arrival time. THE DAY OF SURGERY/CHECK IN Surgery Location Parking Check-in Location [facility] [address] [place] [address] [address] garage or culinary assistant parking available DESK J1-1 A map is located in Your Surgical Guide Book. The online version of the surgical guide book can be found at: [email or web address] [facility] [address] [place], [place] Parking garage connected to hospital or culinary assistant Registration desk, first floor, [facility] [address] [place], [place] Parking lot in front of building [address] (elevator to lower level) [facility] [address] [place], [place] Parking garage next to hospital or culinary assistant Atrium, W1 Surgical Waiting Desk [facility] [address] [facility] [place], [place] Parking garage across from main entrance. Main entrance [facility] [address] [place], [place] Park in the back of the [...] to dispose of unused medications at three [facility] locations: [facility] pharmacy, [facility] pharmacy, and the Pharmacy at the Main [place] for [facility] (inside the parking garage on the first [...] answering service to speak with the doctor security operations analyst. Dr. Franklin Salmon MD [place] Wednesday through Wednesday 8:00am-4:00pm [facility] Trupti Messer, MALIK Kay, MALIK Hurtado, MALIK Zhang, MALIK Gardner, TUFTING MACHINE FIXER Please DO NOT use MyChart for post-surgery concerns. documented in this encounter [facility] 12-17-2023 Note HNO ID: [id number] Author: ?, ?, ? Service: ? Author [...] patient have an advanced directive: Yes Does [facility] have a copy of the patient's advanced [...] prescribed by anesthesia, internal medicine, surgeon, or ACCESS ANALYST Stop NSAIDs, Aspirin (ASA), vitamins, herbal supplements, [...] jewelry, body piercing, makeup, contacts, lotions, nail micronesian on fingers, or anything in hair on arrival to surgery Wear low healed shoes and loose fitting clothing Leave all valuables at home or with a family member Directions to [facility] and the [facility] Parking/parking validation on the day prior to [...] - IV pain medication after surgery, IV COMMERCIAL AGENT if ordered by MD, discharged home with [...] please send any FMLA papers to physician's litigation legal secretary. SYMPTOMS TO NOTIFY MD - Fever, [...] if after hours patient instructed to call offset press operator helper and ask for security operations analyst fitness club manager onc resident. WAYNE program offered to alberto (more content not included)... [facility] 12-17-2023 History of Present illness Narrative DATE [...] patient have an advanced directive: Yes Does [facility] have a copy of the patient's advanced [...] prescribed by anesthesia, internal medicine, surgeon, or ACCESS ANALYST Stop NSAIDs, Aspirin (ASA), vitamins, herbal supplements, [...] jewelry, body piercing, makeup, contacts, lotions, nail micronesian on fingers, or anything in hair on arrival to surgery Wear low healed shoes and loose fitting clothing Leave all valuables at home or with a family member Directions to [facility] and [facility] [place] Parking/parking validation on the day prior to [...] - IV pain medication after surgery, IV COMMERCIAL AGENT if ordered by MD, discharged home with [...] please send any FMLA papers to physician's litigation legal secretary. SYMPTOMS TO NOTIFY MD - Fever, [...] if after hours patient instructed to call offset press operator helper and ask for security operations analyst fitness club manager onc resident. WAYNE program offered to patient: No, Additional teaching as indicated by patient/family learning needs. PATIENT LEARNING EVALUATION & FOLLOW UP PLAN: Patient verbalizes understanding of pre- and post-operative instructions but reinforcement still needed. Follow up plan: Contact information given. Patient has a post-op appointment scheduled: Yes Referral (recommentation): Educator: Estela Zhang [facility] documented in this encounter [facility] 12-16-2023 Note HNO ID: [id number] Author: FRANKLIN SALMON MD Service: ? Author [...] time) All questions answered Franklin Salmon MD [facility] 12-16-2023 History of Present illness Narrative PHONE [...] Franklin Salmon MD documented in this encounter [facility] 12-13-2023 History of Present illness Narrative Subjective [...] house. She does have advanced directives. ESAS ([place] Symptom Assessment System) Pain: no Shortness of [...] patient, obtaining and/or reviewing separately obtained history, schv-ac-nrma patient care, performing a medically appropriate examination, [...] Terry Espino MD documented in this encounter [facility] Work Phone: 12-09-2023 Miscellaneous Notes Pt son calling. Would like to give update and discuss issues mother is having. Please contact him at [phone] documented in this encounter [facility] 12-08-2023 Miscellaneous Notes Called patient's son Rivera and he called the patient on [address], pt accepted 01/11/24 surgery date at , scheduled pre & post op appts and informed pt teaching appt will not appear on Apps4Allt documented in this encounter [facility] 12-08-2023 Miscellaneous Notes 3rd attempt to contact the patient to schedule surgery. Lvm & sent Apps4Allt message 2nd attempt to contact the patient to schedule surgery. lvm 1st attempt to contact the patient to schedule surgery. lvm documented in this encounter [facility] 12-03-2023 Miscellaneous Notes Addended by: JOCELYNN GARDNER [...] to 5 days. Authorizing Provider: JOCELYNN GARDNER APRN.TUFTING MACHINE FIXER Called and spoke with pts son Rivera who is listed as patients emergency contact in Veebow. Rivera states his mom currently has blood [...] from the pt. Pt also lives in [place] and she does not live close to a [facility]. Allergies: Codeine Comment:hives Contrast Dye [Iodin* Diarrhea Comment:Diarrhea after oral contrast. Erythromycin GI Upset Methylprednisolone Hives Comment:IV Sulfa (Sulfonamide * Comment:hives Pharmacy verified and confirmed in epic Pt currently takes Hiprex daily for frequent UTI's Routing to Urogyn ACCESS ANALYST's to please advise next steps Last office visit: 12/01/2023 [facility] Impression: Rosita Kennedy is a 78 [...] MD Patient son Rivera Kennedy called into [facility] office. URO/CAKE WRINGER nurses are not in today at [facility]. Patients son has concerns re blood in patients his mothers urine. Can someone please reach out to son at [phone]. He is her ER contact. Thanks Suzie Carver LPN documented in this encounter [facility] 12-02-2023 Miscellaneous Notes Botox referral received for [...] 2023 11:57 AM documented in this encounter [facility] 12-01-2023 Note HNO ID: [id number] Author: FRANKLIN SALMON MD Service: ? Author [...] proceed with follow up PET scan with fitness club manager-onc for her metastatic uterine cancer. Last CT in 08/2023 did not reveal pelvic disease, but PET is better evaluation. Possible she has developed malignancy regardless in her bladder. Winter will discus with Rosita red if they want to proceed with bladder biopsy. I discussed next step would be urology consult and management, if desired. typer to call. If Rosita has additional questions [...] botox 100 units Franklin Luis Antonio, MD [facility] 12-01-2023 History of Present illness Narrative Video [...] proceed with follow up PET scan with fitness club manager-onc for her metastatic uterine cancer. Last CT in 08/2023 did not reveal pelvic disease, but PET is better evaluation. Possible she has developed malignancy regardless in her bladder. Winter will discus with Rosita red if they want to proceed with bladder biopsy. I discussed next step would be urology consult and management, if desired. typer to call. If Rosita has additional questions [...] Franklin Salmon MD documented in this encounter [facility] 11-19-2023 Miscellaneous Notes Addended by: FRANKLIN SALMON on: 11/19/2023 04:14 PM Modules accepted: Orders documented in this encounter [facility] 11-19-2023 Note HNO ID: [id number] Author: FRANKLIN SALMON MD Service: ? Author Type: Physician Type: Progress Notes Filed: 11/19/2023 16:14 Note Text: Tried to call Rosita, unsuccessful at reaching her, spoke with her hxgwdvji-gb-ocy Winter who is present to many appointments. [...] proceed with follow up PET scan with fitness club manager-onc for her metastatic uterine cancer. Last CT in 08/2023 did not reveal pelvic disease, but PET is better evaluation. Possible she has developed malignancy regardless in her bladder. Winter will discus with Rosita red if they want to proceed with bladder biopsy. I discussed next step would be urology consult and management, if desired. typer to call. If Rosita has additional questions she can call our office and schedule virtual visit (or in person) with me prior to. All questions answered. Franklin Salmon MD [facility] 11-19-2023 History of Present illness Narrative Tried to call Rosita, unsuccessful at reaching her, spoke with her [id number]-znt Winter who is present to many appointments. [...] proceed with follow up PET scan with fitness club manager-onc for her metastatic uterine cancer. Last CT in 08/2023 did not reveal pelvic disease, but PET is better evaluation. Possible she has developed malignancy regardless in her bladder. Winter will discus with Rosita red if they want to proceed with bladder biopsy. I discussed next step would be urology consult and management, if desired. typer to call. If Rosita has additional questions [...] Video-assisted cystourethroscopy was performed using a 19 Monegasque 70 degree cystoscope with saline infusion. The [...] Franklin Salmon MD documented in this encounter [facility] 11-18-2023 Note HNO ID: [id number] Author: FRANKLIN SALMON MD Service: ? Author [...] Video-assisted cystourethroscopy was performed using a 19 Monegasque 70 degree cystoscope with saline infusion. The [...] and radiation cystitis plan Franklin Salmon MD [facility] 10-08-2023 Miscellaneous Notes Please notify pt's son: Vesicare is 5 or 10mg once daily Sanctura is either 20mg twice daily or 60mg once daily Thank you Called pt's son. Verified by name and . Son given pantograph watcher note above. Skylar Everett RN October 08, [...] the better option. His name is Rivera [phone]. Thanks! documented in this encounter [facility] 10-08-2023 Miscellaneous Notes Called patient, LVM requesting she call the office back regarding her medication. Franchesca Sanchez RN Per Dr. Salmon's note, patient can try Vesicare or Sanctura. Do they want to check on the cost of these before I send in a prescription or would they prefer I send the prescription in first? Aleksander Hurtado APRN.MALIK Pt requesting cheaper alternative to gemtesa. [...] Provider: Franklin Salmon MD Caller Phone #: [phone] (home) [phone] (cell) Reason for call: pt states Dr Salmon advised her to call if prescription she wrote is too expensive. Says Dr Salmon told her she would send something else in, if so Please call Daughter in law, Winter, at [phone] Message routed to nurse triage Date of next visit: Appointments for Next 60 Days Date Time Provider Location Dept Phone 10/14/2023 2:30 PM FRANKLIN SALMON [phone] 11/10/2023 7:[address] [facility] [phone] 11/10/2023 8:[address] [facility] [phone] 11/17/2023 4:00 PM MALATHI ROBERTS POB [phone] JULIA: 10/06/2023 documented in this encounter [facility] 10-06-2023 History of Present illness Narrative Telephone Encounter I have communicated my name and active licensure. The patient's identity and physical location were verified at the time of this visit. Either the patient or their legal business office representative has been informed of the risks and benefits of -- and alternatives to -- treatment through a remote evaluation and consents to proceed with the evaluation remotely. Call placed to patient's SonRivera phone number as requested, listed as [phone] Participants security operations analyst: Provider (Raf), Patient, and Patient's Son ID: [...] MS Gynecologic Oncologist documented in this encounter [facility] 10-06-2023 Instructions Franklin Salmon MD - 10/06/2023 10:48 AM EST Constipation Start taking miralax twice daily Metamucil - fiber Magnesium citrate - take large dose to clear out your bowels and then start fresh Cystitis/incontinence Start gemtesa daily, if too expensive, call us Follow up for cystoscopy documented in this encounter [facility] 10-06-2023 History of Present illness Narrative Female [...] had breast ca. Medical and Symptom History: CAKE WRINGER HISTORY: denies hx of HRT, denies hx [...] mouth once daily. L GASSERI/B BIFIDUM/B LONGUM ([facility]) Take 1 tablet by [...] 0.9% 10 mL injection (DEFINITY) INTRAVENOUS DIRECTED PRJoseulis Rodgers MD sodium chloride 0.9 % (flush) [...] Absent NEG EBCST POP-Q: Prolapse Noted: No URO/CAKE WRINGER POP Q 10/06/2023 Aa -3 Ba -3 [...] removed and patient instructed to cough. NEG MODELING INSTRUCTOR with ?80 mL sterile water Physical exam [...] which included preparing to see the patient, bjsj-hs-jnlt patient care, completing clinical documentation, obtaining and/or [...] via US mail. documented in this encounter [facility] 10-06-2023 Note HNO ID: [id number] Author: FRANKLIN SALMON MD Service: ? Author [...] had breast ca. Medical and Symptom History: CAKE WRINGER HISTORY: denies hx of HRT, denies hx [...] Alzheimer's Disease Mother (more content not included)... [facility] 10-04-2023 Miscellaneous Notes Called and spoke to rosita to remind her of her upcoming appointments with CAKE WRINGER-Uro on 10-06-23 time 9:45 am and the a phone visit same day with Dr. Roberts at 4:30 pm. Patient acknowledged and understood. Stacy Stanford MA documented in this encounter [facility] 10-01-[address] Results reviewed by Dr Roberts. Urine culture x 3 have indicated no infection. See uro/fitness club manager for eval and can set up phone visit to discuss treatment options for her cancer which appears stable on CT. Called patient discussed Ct findings. No new symptoms. But still having the incontinence. Discussed repeat urine culture to make sure she didn't get infection from office to CT since Urine culture and visit was negative. Declines just wants to see who uro/fitness club manager says. Agreeable to discuss With Dr Roberts treatment options for her cancer. Working currently to get her appt with uro/fitness club manager KASSY. Nate Krishna APRN.MALIK documented in this encounter [facility] 09-29-2023 Note HNO ID: [id number] Author: LUZ LAN RN Service: ? Author Type: Registered Nurse Type: Progress Notes Filed: 09/29/2023 12:01 Note Text: Connected CT contrast dye to pt after flushing power port with 10ml of Normal saline. Once CT completed flushed power port with 20ml of normal saline . After flushing removed power port needle and covered with 2x2 and paper tape. Pt tolerated well. Luz Lan Rn [facility] 09-29-2023 Note HNO ID: [id number] Author: RAMÓN MONTGOMERY, RT(R) Service: ? Author Type: Wardrobe Coordinator Type: Progress Notes Filed: 09/29/2023 16:15 Note [...] PATIENT PRESENTS WITH AN IMPLANTABLE OR ATTACHED TAX DIRECTOR: power port RADIOLOGY DEPARTMENT: CT; Exam(s) Completed: Chest Abdomen Pelvis PERIPHERAL IV DATA: power port accessed by hemoc SIGNED BY: RT Gris(R) September 29, 2023 4:15 PM [facility] 07-28-2023 Miscellaneous Notes Noted. Thank you. Domo Frazier DO Son called to cancel appointments for today. States patient is not sure she wants to continue treatments. Will call back to reschedule once she decides documented in this encounter [facility] 07-12-[address] Frazier, follow-up as scheduled. Mason Quintero RN DISCHARGE CALL BACK Today's date: July 12, 2023 Notified of Pt discharge by: Checked [facility] records Patient discharged on 07/09/23 from [facility]/U to Home with Home Health. [facility] Care PT/OT/ST. Primary Cancer Diagnosis: Metastatic endometrial cancer, endometrioid type Admitting Diagnosis: Weakness and frequent falls Discharge Summary/SBAR reviewed: Yes Handoff Discussed with Transitional Bit Grinder: N/A Psychosocial Risk Factors: None If patient [...] 07/23/23. Patient reminded of follow-up appointment with [facility] provider, Dr. Roberts 07/15/23. Discussed: patient is happy to be home. Patient was discharged home with [facility]. Patient is nervous about receiving another [...] number? YES Mason Quintero RN Per recent case preparer and liner note, plan is to d/c patient home tomorrow, 07/09/23. Patient will be discharged home with home health through [facility] PT/OT/ST. Patient is also established with [facility] Palliative ([phone]) Patient is still in TCU. Yesterday patient had c/o sore throat and UTI symptoms, urine culture pending, covid was negative. Mason Quintero RN Patient was discharged to [facility] TCU on 06/29/21. Per [facility] notes: Date of Admission: 06/29/23 Date of Service: 06/29/23 Chief Complaint: Here for rehabilitation. HPI Narrative 06/26/2023 ROSITA KENNEDY, is a 77 Female who presents to Emergency Department with weakness, frequent falls. Generalized [...] Roberts from son. Patient is currently at [facility]. Opened [facility] records. Patient was admitted for acute dehydration. [...] 71.7 H, Lymph % (Auto) 15.3 L, Pender % (Auto) 9.1, Eos % (Auto) 3.1, [...] Clarity Clear, Urine pH 6.0, Ur Specific Phillips 1.015, Urine Protein 30 H, Urine Glucose [...] June 23, 2023 documented in this encounter [facility] 07-09-2023 Note HNO ID: [id number] Author: Kelley Rich RN Service: ? Author Type: Registered Nurse Type: Progress Notes Filed: 07/09/2023 1:49 PM Note Text: Patient is here for IVAD port flush/blood draw per Nursing [place] protocol. IVAD is located in right upper [...] edema or tenderness. Patient tolerated procedure well. [facility] 07-06-2023 Discharge summary Note Date/Time July 05, 2023 7:56pm [facility] Medical Records Department [address] [place] [address] Discharge Summary 07/05/231954 MR#: [id number] Acct: [id number] Name: ROSITA KENNEDY Rep #:[id number] : 1945 77 From: Bernardino Min MD PCP: Dr. 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 * Recurrent DVT - Xarelto 20mg daily. * Depression - Sertraline 125mg daily. 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 Medications at Discharge [...] discharge home alone. Discharge home alone 07/08/2023, [facility] Care PT/OT/ST. Physical Exam Const alert General [...] pain Additional Instructions: Discharge home alone 07/08/2023, [facility] PT/OT/ST. Meaningful Use Info Meaningful Use Diagnoses (Choose all that apply): None applicable Discharge Plan Admission Admit Date/Time: 06/29/23 14:29 Primary Reason for Your Visit: Debility. Attending Provider: Bernardino Min Chi Primary Care Provider: Bernardino Min Chi Instructions Additional Instructions / Restrictions: scharge home alone 07/08/2023, [facility] PT/OT/ST. Discharge Orders/Prescriptions Prescriptions: New acetaminophen 500 [...] at 1506 Addendum Discharge home alone 07/09/2023, [facility] Care PT/OT/ST. 07/06/23 1506<Electronically signed by Bernardino Min MD> Cosigner Signature (if applicable): cc: Dr. Bernardino Min MD ~* Signed Work Phone: 1(560) 529-444811-02-2023 Progress note Author Christy Chapman July 01, 2023 2:40pm Note Date/Time July 01, 2023 2 :12pm [facility] System Medical Records Department [address] [place] [address] Progress Note - Pharmacy 07/01/23 1407 MR#: [id number] Acct: [id number] Name: ROSITA KENNEDY Rep #:[id number] : 1945 77 From: Christy Chapman PCP: Dr. Bernardino Min MD Status:ADM I N Location: [place] [address]1 TCU RX Drug Regimen Review Subjective/Objective Subjective/Objective: Subjective: 77 YOF admitted to [facility] on 06/29/23 s/p hospitalization at [facility] secondary to multiple falls, weakness. Patient with history of poor appetite anddehydration, got fluids while admitted to [facility]. Patient also has a history of hitting her head when falling, pt on skilled nursing anticoagulation with Xarelto due tohistory of pulmonary [...] Cosigner Signature (if applicable): CC: ~ Signed Work Phone: 1(374) 466-543310-31-2023 History and physical note Author Bernardino Min June 29, 2023 8:24pm Note Date/Time June 29, 2023 8 :18pm [facility] System Medical Records Department [address] [place] [address] History & Physical Exam 06/29/232009 MR#: [id number] Acct: [id number] Name: ROSITA KENNEDY Rep #:[id number] : 1945 77 From: Bernardino Min MD PCP: Dr. Bernardino Min MD Status:ADM I N Location: TCU [place] [address] HPI - General General Date of Admission: 06/29/23 Date of Service: 06/29/23 Chief Complaint: Here for rehabilitation. HPI Narrative 06/26/2023 ROSITA KENNEDY, is a 77 Female who presents to Emergency Department with weakness, frequent falls. Generalized [...] appears well, eating supper, she ordered pizza. [facility] Medical History Brain bleed Cancer Depression DVT [...] loss - Mirtazapine 15mg qhs, stable chronic skilled nursing use, GDR not recommended. * Recurrent DVT - Xarelto 20mg daily. * Depression - Sertraline 125mg daily. 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 06/29/232023 <Electronically signed by Bernardino Min MD> Cosigner Signature (if applicable): CC: Dr. Bernardino Min MD~ Signed Work Phone: 1(439) 173-350010-31-2023 Discharge summary Author Ethan Duarte June 29, 2023 12:12pm Note Date/Time June 29, 2023 1 2:12pm [facility] System Medical Records Department [address] [place] [address] Discharge Summary 06/29/23 1210 MR#: [id number] Acct: [id number] Name: ROSITA KENNEDY Rep #:[id number] : 1945 77 From: Ethan Duarte DO PCP: Dr. Bernardino Min MD Status:ADM I NO Location: [place] [address] Providers Date of Admission: 06/26/23 Primary Care Physician: Dr. Bernardino Min MD Consultations 06/27/23 02:22 Consult: Onc/Wound/nylon mender Routine Comment: Reason for Consult:: left groin [...] Xarelto Code DNRCCA, DNI Disposition: Plan for correction facility. Medications at Discharge Home Medications cholecalciferol [...] Document 06/27/23 13:28 REZA (Rec: 06/27/23 13:28 [facility] [id number]) Nutrition Malnutrition Evidence of Malnutrition Exists Yes [...] in before D/C Order can be placed): [facility] Facility Charges/Coding Visit Charges Inpatient E&M: 41946 Disch Hosp 06/29/23 1212 <Electronically signed by Ethan Duarte DO> Cosigner Signature (if applicable): CC: Dr. Ethan Duarte DO; Dr. Bernardino Min MD~ Signed Work Phone: 1(442) 710-686310-31-2023 Progress note Author Ethan Duarte June 29, 2023 12:10pm Note Date/Time June 29, 2023 8 :16am [facility] System Medical Records Department [address] [place] [address] Progress Note - Hospitalist 06/29/23 0815 MR#: [id number] Acct: [id number] Name: ROSITA KENNEDY Rep #:[id number] : 1945 77 From: Ethan Duarte DO PCP: Dr. Bernardino Min MD Status:ADM I NO Location: [place] [address] Reason for Visit Reason for Visit: Diagnoses [...] 06/27/23 13:28 REZA (Rec: 06/27/23 13:28 REZA [id number]) Nutrition Malnutrition Evidence of Malnutrition Exists Yes [...] Xarelto Code DNRCCA, DNI Disposition: Plan for correction facility. 06/29/23 1210 <Electronically signed by Ethan Duarte DO> Cosigner Signature (if applicable): CC: ~ Signed Work Phone: [phone]) 466-192510-31-2023 Discharge summary Author Ethan Duarte June 29, 2023 8:20am Note Date/Time June 29, 2023 8 :17am [facility] System Medical Records Department [address] [place] [address] Transfer to [facility] MR#: [id number] Acct: [id number] Name: ROSITA KENNEDY Rep #:[id number] : 1945 77 From: Ethan Duarte DO PCP: Dr. Bernardino Min MD Status:ADM I NO Certification of patient admission REQUIRED AT TIME OF ADMISSION. I CERTIFY THAT POST-HOSPITAL ECF SERVICES ARE REQUIRED TO BE GIVEN ON AN IN-PATIENT BASIS BECAUSE OF THE ABOVE NAMED PATIENT'S NEED FOR INTERMEDIATE CARE ON A CONTINUING BASIS FOR THE [...] Xarelto Code DNRCCA, DNI Disposition: Plan for correction facility. Waiting on insurance authorization. Allergies/Procedures Done [...] in before D/C Order can be placed): [facility] Facility 06/29/23 0820 <Electronically signed by Ethan Duarte DO> Cosigner Signature (if applicable): CC: Dr. Jason Arteaga MD; Dr. Bernardino Mni MD ~ Work Phone: 1(718) 403-462910-30-2023 Progress note Author Ethan Duarte June 28, 2023 12:59pm Note Date/Time June 28, 2023 7 :58am [facility] Medical Records Department [address] [place] [address] Progress Note - Hospitalist 06/28/23 0757 MR#: [id number] Acct: [id number] Name: ROSITA KENNEDY Rep #:[id number] : 1945 77 From: Ethan Duarte DO PCP: Dr. Bernardino Min MD Status:ADM I NO [facility] Reason for Visit Reason for Visit: Diagnoses [...] Document 06/27/23 13:28 REZA (Rec: 06/27/23 13:28 [facility] [id number]) Nutrition Malnutrition Evidence of Malnutrition Exists Yes [...] (Auto) 69.1, Lymph % (Auto) 17.6 L, Pender % (Auto) 9.3, Eos % (Auto) 3.2, [...] Clarity Clear, Urine pH 7.0, Ur Specific Phillips 1.010, Urine Protein Negative, Urine Glucose (UA) [...] Xarelto Code DNRCCA, DNI Disposition: Plan for correction facility. Waiting on insurance authorization. Charges/Coding Visit Charges Inpatient E&M: 56560 Subs Hosp L1 06/28/23 1259 <Electronically signed by Ethan Duarte DO> Cosigner Signature (if applicable): CC: ~ Signed Work Phone: 1(166) 608-754810-29-2023 Progress note Author Ethan [facility] June 27, 2023 12:12pm Note Date/Time June 27, 2023 8 :11am Health System Medical Records Department [address] [place] [address] Progress Note - Hospitalist 06/27/23 08 MR#: [id number] Acct: [id number] Name: ROSITA KENNEDY Rep #:[id number] : 1945 77 From: Ethan Duarte DO PCP: Dr. Bernardino Min MD Status:ADM I NO Location: [place] [address] Reason for Visit Reason for Visit: Diagnoses [...] (Auto) 71.7 H, Lymph % (Auto) 15.3L, Pender % (Auto) 9.1, Eos % (Auto) 3.1, [...] Clarity Clear, Urine pH 6.0, Ur Specific Phillips 1.015, Urine Protein 30 H, Urine Glucose [...] Uterine CA. Charges/Coding Visit Charges Inpatient E&M: 37673 Subs Hosp L1 06/27/23 1212 <Electronically signed by Ethan Duarte DO> Cosigner Signature (if applicable): CC: ~ Signed Work Phone: [phone]) 692-706210-29-2023 History and physical note Author Jason Arteaga June 27, 2023 6:37am Note Date/Time June 26, 2023 1 1:24pm Health System Medical Records Department [address] [place] [address] H&P Exam - Hospitalist 06/26/23 2324 MR#: [id number] Acct: [id number] Name: ROSITA KENNEDY Rep #:[id number] : 1945 77 From: Jason Arteaga MD PCP: Dr. Bernardino Min MD Status:ADM I NO Location: [place] SX190-2 HPI - General General Date of Admission: [...] Patient is open to placement if indicated. [facility] Medical History Brain bleed Cancer Depression DVT [...] (Auto) 71.7 H, Lymph % (Auto) 15.3L, Pender % (Auto) 9.1, Eos % (Auto) 3.1, [...] Clarity Clear, Urine pH 6.0, Ur Specific Phillips 1.015, Urine Protein 30 H, Urine Glucose [...] 22:01 EDT Reading Location ID and State: [facility] / [place] Tel , Service support , Assessment & [...] 50 minutes. Charges/Coding Visit Charges Inpatient E&M: 17821 Init Hosp L2 06/27/23 0637 <Electronically signed by Jason Arteaga MD> Cosigner Signature (if applicable): CC: Dr. Jason Arteaga MD; Dr. Bernardino Min MD~ Signed Work Phone: [phone]) 164-958710-27-2023 Miscellaneous Notes* Telephone Encounter - Usha Grant [...] RUBIO Max with any questions or updates. [phone] documented [address] Miscellaneous Notes* Telephone Encounter - Mason Quintero RN - 06/22/2023 4:03 PM EDT Spoke to daughter, addressed in a separate phone encounter. Mason Quintero RN * Telephone Encounter - Mason Quintero RN - 06/21/2023 4:23 PM EDT [facility] Care Coordination FOLLOW-UP NOTE Patient identified by [...] of life. Patient is very active with gnosticism, family, and friends. Patient had a big weekend planned this past weekend and she stated it didn't happen due to not feeling well. Patient was encouraged to follow palliative cares recommendations and aware this nurse will communicate her concerns with Dr. Frazier. Care Coordination Plan: Will follow up after speaking to Dr. Susy Quintero RN June 21, 20[address] [facility]23 Miscellaneous Notes* Telephone Encounter - Mason Quintero [...] and will most likely take patient to [facility] for IVF this evening. This nurse will check up on patient tomorrow. Mason Quintero RN * Telephone Encounter - Mason Quintero RN - 06/22/2023 11:47 AM EDT [facility] Care Coordination FOLLOW-UP NOTE Called daughter, there was no answer. A message was left informing her that this nurse spoke to Rosita yesterday and we received [facility] message. This nurse is planning on meeting [...] to . Please advise. documented in this encounterMer[facility]10-20-2023 Miscellaneous Notes* Telephone Encounter - Mason Quintero [...] patient. Mason Quintero RN documented in this encounterMer[facility]10-17-2023 Miscellaneous Notes* Telephone Encounter - Mason Quintero [...] over the weekend and ate at a gnosticism lunch. Nausea and vomiting x 2 episodes [...] evening around 5 pm. Patient was at [employer] luncheon on Wednesday afternoon. Wednesday evening, patient [...] protocol. Mason Quintero RN documented in this encounterMer[facility]10-13-2023 NoteHNO ID: [id number] Author: Luz Lan RN Service: ? Author [...] be ok to give keytruda pending labs todayT[facility]caraw[facility]10-13-2023 History of Present illness Narrative* Luz Lan [...] keytruda pending labs today documented in this encounterMer[facility]. [facility]10-13-2023 NoteHNO ID: [id number] Author: Pearl Castro RN Service: ? Author [...] tenderness. Patient tolerated procedure well. Pearl Castro RNTuscarawas Hospital10-13-2023 History of Present illness Narrative* Pearl Castro [...] well. Pearl Castro RN documented in this encounterMercy Health St. [facility]10-10-2023 NoteHNO ID: [id number] Author: Katt Medrano RN Service: ? Author Type: Registered Nurse Type: Progress Notes Filed: 06/10/2023 2:19 PM Note Text: [facility] received prescription for Lenvima from Dr. Frazier, prior authorization was approved with details listed below. Plan Name: [employer] reference number: [id number] Approval Dates: 05/09/2023 - 06/07/2026 Katt Medrano [...] 2023. Dusty Crane PharmD Clinical Pharmacist, Oncology [facility] P: ; F: Pool: P [facility] Pool #: [id number] Hospital10-09-2023 NoteHNO ID: [id number] Author: Katt Medrano RN Service: ? Author Type: Registered Nurse Type: Progress Notes Filed: 06/07/2023 4:58 PM Note Text: [facility] received prescription for Lenvima from Dr. Frazier, await clarification of Rx sig before a rior authorization can be submitted. Katt Medrano RNTuscarawas Hospital10-05-2023 History of Present illness Narrative* Ce Herbert - 06/03/2023 11:58 AM EDT [facility] received prescription(s) for Lenvima from Dr. Frazier's office. Benefits investigation was conducted, indicating that a prior authorization is required by patient's insurance plan with [employer]. Encounter will be updated once prior [facility] has been [facility] Ce Herbert CPhT [facility], Oncology P: / F: documented in this encounterMercy Health St. [facility]10-05-2023 NoteHNO ID: [id number] Author: Ce Herbert Service: ? Author Type: ? Type: Progress Notes Filed: 08/04/2023 2:20 PM Note Text: [facility] Discontinuation Assessment: Disease group: Oral [...] No further follow up required from [facility]. Roselia Moncada, PharmD Clinical Pharmacist, Oncology [facility] P: , F: Pool: P [facility] Pool #: [id number] Hospital10-05-2023 NoteHNO ID: [id number] Author: Ce Herbert Service: ? Author Type: ? Type: Progress Notes Filed: 06/03/2023 12:00 PM Note Text: [facility] received prescription(s) for Lenvima from Dr. Frazier's office. Benefits investigation was conducted, indicating that a prior authorization is required by patient's insurance plan with [employer]. Encounter will be updated once prior authorization has been submitted by [facility]. Ce Herbert CPhT [facility], Oncology P: / F: c[facility]10-[facility]23 Note HNO ID: [id number] Author: Dusty Crane [facility] Service: ? Author Type: Pharmacist Type: Progress Notes Filed: 06/10/2023 4:52 PM Note Text: [facility] received prescription for Lenvima from Dr. Frazier, prior authorization was approved with details listed below. Plan Name: [employer] reference number: [id number] Approval Dates: 05/09/2023 - 06/07/2026 Pt's copay [...] vein thrombosis (DVT) of left lower extremity ([facility]) 04/22/2020 Edi Pope No H/O [...] Rosas (Hist) No Mu (more content not included)...[facility]10-[facility]23 NoteHNO ID: [id number] Author: Dusty Crane RPh Service: ? Author Type: Pharmacist Type: Progress Notes Filed: 06/10/2023 4:43 PM Note Text: [facility] received prescription for Lenvima from Dr. Frazier, prior authorization was approved with details listed below. Plan Name: [employer] reference number: [id number] Approval Dates: 05/09/2023 - 06/07/2026 Pt's copay [...] 04/30/2023 Malathi Roberts MD No Severe malnutrition ([facility]) 03/02/2023 Joseluis Perez MD No [...] moderate stage 05/23/2019 Brittany (more content not included)...[facility]10-05-2023 Miscellaneous Notes * Telephone Encounter - Domo [...] you. Mason Quintero RN documented in this encounterMercy Health St. [facility]10-03-2023 NoteHNO ID: [id number] Author: Domo Frazier DO Service: ? Author [...] removal. Pt declined cytotoxic therapy ER 50%, DC negative 9). 03/31/2018 - 03/16/2019: Letrozole started. Everolimus added 06/23/2018 due to progression. Treatment discontinued 03/16/2019 due to disease progression (confirmed 03/06/2019). Patient elected treatment holiday. 10). 08/2018: PE, IVC filter placement 11). 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 01/01/2022: [facility]. Recommended RT (vs systemic chemotherapy) for management of hypermetabolic aortocaval lymphadenopathy. Patient would prefer treatment in [place], [place]. 13). 02/24/2022 - 03/03/2022: Radiation Therapy (SBRT) - The Aortocaval LNs PTV received a total dose of 2400 cGy in [address] Youngblood 14) 09/03/2022 - 09/07/2022: Hospital admission: TCU resident for debility, RY, dehydration, UTI, extensive RLE DVT. 09/07/2022 Admitted to for heparin drip secondary to DVT 09/08/2022-09/10/2022: Surgical management w/ Dr. Schaefer for extensive RLE DVT. Patient underwent thrombectomy, balloon angioplasty of right lower extremity DVT and IVC venogram, percutaneous thrombectomy IVC, bilateral common and external arteries angioplasty, IVUS. Patient required admission and rehabilitation. 15) 10/2022: PET scan with few new retrocrural lymph nodes suspicious for metastases. Cooker Chip/Onc plan made for observation w/ repeat PET/CT [...] tightness continued so pt was transferred to [facility]. Patient had another reaction on 03/23 during inpatient Doxil re-challenge, so treatment was cancelled. 18) 03/31/2023: Second opinion and transfer of care to [facility] primary. Elected to have treatment holiday [...] OD (RIGHT EYE) Ri (more content not included)...[facility]09-[facility] History of Present illness Narrative* Quincy Lima, [...] 123- PATIENT DISCHARGED TO: Ambulatory patient, left MA department area. A Diagnostic radioactive procedure has taken place, with no further precautions necessary other than routine body substance precautions. More information regarding radiation safety can be found usingthis link: [email or web address] SIGNATURE: RT Beck(R) PATIENT NAME: Rosita Kennedy DATE: May 20, 2023 TIME: 12:39 PM PAGER/CONTACT #: documented in this encounterMercy Health St. [facility]09-01-2023 History of Present illness Narrative* Malathi Roberts [...] by the patient and a relative. No judicial clerk was used. ROS: Review of Systems Constitutional: [...] removal. Pt declined cytotoxic therapy ER 50%, DC negative 9). 03/31/2018 - 03/16/2019: Letrozole started. Everolimus added 06/23/2018 due to progression. Treatment discontinued 03/16/2019 due to disease progression (confirmed 03/06/2019). Patient elected treatment holiday. 10). 08/2018: PE, IVC filter placement 11). 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 01/01/2022: [facility]. Recommended RT (vs systemic chemotherapy) for management of hypermetabolic aortocaval lymphadenopathy. Patient would prefer treatment in [place], [place]. 13). 02/24/2022 - 03/03/2022: Radiation Therapy (SBRT) - The Aortocaval LNs PTV received a total doseof 2400 cGy in [address] Youngblood 14) 09/03/2022 - 09/07/2022: Hospital admission: TCU resident for debility, RY, dehydration, UTI, extensive RLE DVT. 09/07/2022 Admitted to for heparin drip secondary to DVT 09/08/2022-09/10/2022: Surgical management w/ Dr. Schaefer for extensive RLE DVT. Patient underwent thrombectomy, balloon angioplasty of right lower extremity DVT and IVC venogram, percutaneous thrombectomy IVC, bilateral common and external arteries angioplasty, IVUS. Patient required admission and rehabilitation. 15) 10/2022: PET scan with few new retrocrural lymph nodes suspicious for metastases. Cooker Chip/Onc plan made for observation w/ repeat PET/CT [...] was infused when patient became flushed, BP [id number]/110 and chest tightness. BP returned normal, but chest tightness continued so pt was transferred to [facility]. Patient had another reaction on 03/23 during inpatient Doxil re- challenge, so treatment was cancelled. 18) 03/31/2023: Second opinion and transfer of care to [facility] primary. Elected to have treatment holiday with plan for follow up scan end of 04/2023 PAST MEDICAL/SURGICAL/OB-CAKE WRINGER/FAMILY/SOCIAL HISTORY: PAST MEDICAL HISTORY Diagnosis Date Cataracts, [...] with PC IOL/Femtosecond Laser Left Eye PAST HOUSEMAID HISTORY: OB History OB History T3 L3 SAB0 IAB0 Ectopic0 Multiple0 Live Births0 Comment: x3. 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 L GASSERI/B BIFIDUM/B LONGUM ([facility]) Take by mouth. CHOLECALCIFEROL, [...] which included preparing to see the patient, [id number] patient care, completing clinical documentation, obtaining and/or reviewing separately obtained history, performing a medically appropriate examination, and counseling and educating the patient/family/caregiver. Malathi Roberts MD, MS Gynecologic Oncologist documented in this encounterMercy Health St. [facility]08-07-2023 Miscellaneous Notes* Telephone Encounter - Henry Donovan RN - 04/05/2023 8:51 AM EDT Patients sonRivera called stating that they had their second opinion with Dr Roberts and have decided to transfer care to Dr Roberts. Location more convenient. Will update team. documented in this encounterMercy Health St. [facility]08-02-2023 History of Present illness Narrative* Malathi Roberts [...] by the patient and a relative. No judicial clerk was used. ROS: Review of Systems Constitutional: [...] removal. Pt declined cytotoxic therapy ER 50%, DC negative 9). 03/31/2018 - 03/16/2019: Letrozole started. Everolimus added 06/23/2018 due to progression. Treatment discontinued 03/16/2019 due to disease progression (confirmed 03/06/2019). Patient elected treatment holiday. 10). 08/2018: PE, IVC filter placement 11). 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 01/01/2022: [facility]. Recommended RT (vs systemic chemotherapy) for management of hypermetabolic aortocaval lymphadenopathy. Patient would prefer treatment in [place], [place]. 13). 02/24/2022 - 03/03/2022: Radiation Therapy (SBRT) - The Aortocaval LNs PTV received a total doseof 2400 cGy in [address] Youngblood 14) 09/03/2022 - 09/07/2022: Hospital admission: TCU resident for debility, RY, dehydration, UTI, extensive RLE DVT. 09/07/2022 Admitted to for heparin drip secondary to DVT 09/08/2022-09/10/2022: Surgical management w/ Dr. Schaefer for extensive RLE DVT. Patient underwent thrombectomy, balloon angioplasty of right lower extremity DVT and IVC venogram, percutaneous thrombectomy IVC, bilateral common and external arteries angioplasty, IVUS. Patient required admission and rehabilitation. 15) 10/2022: PET scan with few new retrocrural lymph nodes suspicious for metastases. Cooker Chip/Onc plan made for observation w/ repeat PET/CT [...] was infused when patient became flushed, BP evptfkgx580/110 and chest tightness. BP returned normal, but chest tightness continued so pt was transferred to [facility]. Patient had another reaction on 03/23 during inpatient Doxil re- challenge, so treatment was cancelled. PAST MEDICAL/SURGICAL/OB-CAKE WRINGER/FAMILY/SOCIAL HISTORY: PAST MEDICAL HISTORY Diagnosis Date Cataracts, bilateral COAG (chronic open-angle glaucoma) CRVO (central retinal vein occlusion) Disorder of bone and cartilage, unspecified Multiple sclerosis (HCC) 2001 remission currently Pseudophakia, both eyes Pyelonephritis, unspecified 01/2010 Pyelonephritis Uterine cancer (HCC) 08/08/2014 Specifically denies any history of diabetes, or CT. PAST SURGICAL HISTORY Procedure Laterality Date DELIVERY [...] with PC IOL/Femtosecond Laser Left Eye PAST HOUSEMAID HISTORY: OB History OB History T3 L3 SAB0 IAB0 Ectopic0 Multiple0 Live Births0 Comment: x3. 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 L GASSERI/B BIFIDUM/B LONGUM ([employer] [facility] ORAL) Take by mouth. CHOLECALCIFEROL, VITAMIN D3, [...] which included preparing to see the patient, jton-fu-ctty patient care, completing clinical documentation, obtaining and/or reviewing separately obtained history, performing a medically appropriate examination, counseling and educating the pat ient/family/caregiver, and ordering medications, tests, or procedures. Malathi Roberts MD, MS Gynecologic Oncologist documented in this encounterMercy Health St. [facility]07-31-2023 Miscellaneous Notes* Telephone Encounter - Geremias Dalal [...] and time of appointment. documented in this encounterMercy Health St. [facility]07-31-2023 Miscellaneous Notes* Telephone Encounter - Henry Donovan RN - 03/29/2023 1:16 PM EDT Patients son, Rivera called. Had telephone visit with Dr Perez on 03-26-23. They have not decided on proceeding with treatments options Dr Perez reviewed with them. Requesting a second opinion to a [facility] CAKE WRINGER/ONC [place]. Message sent to health careers instructor in [place], she will speak with Dr Roberts then call Rivera back with appointment. He is also requesting a consult to [facility] in [place]. Will discuss with team documented in this encounterMercy Health St. [facility]07-28-2023 NoteHNO ID: [id number] Author: Joseluis Perez MD Service: ? Author [...] and birthday verified: Yes Location of patient: [place] Duration: 21 minutes Persons Present: patient, son [...] removal. Pt declined cytotoxic therapy ER 50%, DC negative 9). 03/31/2018 - 03/16/2019: Letrozole started. Everolimus added 06/23/2018 due to progression. Treatment discontinued 03/16/2019 due to disease progression (confirmed 03/06/2019). Patient elected treatment holiday. 10). 08/2018: PE, IVC filter placement 11). 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 [facility] (vs systemic chemotherapy) for management of hypermetabolic aortocaval lymphadenopathy. Patient would prefer treatment in [place], [place]. 13). 02/24/2022 - 03/03/2022: Radiation Therapy (SBRT) - The Aortocaval LNs PTV received a total dose of 2400 cGy in [address] Youngblood 14) 09/03/2022 - 09/07/2022: Hospital admission: TCU resident for debility, RY, dehydration, UTI, extensive RLE DVT. 09/07/2022 Admitted to for heparin drip secondary to DVT 09/08/2022-09/10/2022: Surgical management w/ Dr. Schaefer for extensive RLE DVT. Patient underwent thrombectomy, balloon angioplasty of right lower extremity DVT and IVC venogram, percutaneous thrombectomy IVC, bilateral common and external arteries angioplasty, IVUS. Patient required admission and rehabilitation. 15) 10/2022: PET scan with few new retrocrural lymph nodes suspicious for metastases. Cooker Chip/Onc plan made for observation w/ repeat PET/CT [...] tightness continued so pt was transferred to [facility]. Patient had another reaction on 03/23 during inpatient Doxil re-challenge, so treatment was cancelled. Date of last follow up: 02/26/23 [facility] Genetics Consultation/Testing Consultation: No Genetic Testing: No [...] Xen Gel stent EYLEA (more content not included)...[facility] HospitalWutclzno02-06-5636 NoteHNO ID: [id number] Author: Selina Grullon MD Service: Gynecology Oncology [...] Fellow March 23, 2023 7:57 PM Pager: [facility] [phone] Miscellaneous Notes* Telephone Encounter - Deborah Boyd [...] canceled. Deborah Boyd RN documented in this encounterMercy Health St. [facility]07-14-2023 Discharge summary Author Carlos Enrique Peguero March 12, 2023 4:53pm Note Date/Time March 12, 2023 3:20 pm [facility] Medical Records Department [address] [place] [id number] Emergency Department Summary 03/12/23 MR#: [id number] Acct: [id number] Name: ROSITA KENNEDY Rep #:[id number] : [...] when she was getting chemotherapy over at [facility]. She has a history of uterine cancer. [...] extremity edema and it is at baseline. [facility] Medical History Brain bleed Glaucoma Multiple sclerosis [...] days of prednisone. I have encouraged using ovhp-kis-yudvtoi Claritin once a day. She states sometimes [...] but no signof acute infarct or ischemia. DC interval, QRS duration and QTc are normal. [...] your Primary Care Provider. Call [facility] ([phone]) or report to the closest Emergency Room. Call 911 if necessary. 03/12/231652 <Electronically signed by Carlos Enrique Peguero MD> Cosigner Signature (if applicable): CC: Dr. Bernardino Min MD ~ Signed Work Phone: 1(253) 294-895907-14-2023 Miscellaneous Notes* Telephone Encounter - Henry Donovan RN - 03/12/2023 3:34 PM EDT Spoke with Garcia at [place] infusion suite. 10ml DOXIL infused when patient became flushed/ BP elevated 170/110 and chest tightness. BP returned to normal but chest tightness persisted. Patient was transferred via squad to [facility] . Will call Rivera, shahla son. Dr [...] 100mg of solucortef. Pt was transferred to [facility] through squad due to continuing chest tightness. Please keep us updated about the plan of care for this pt. Thank you, Garcia RN documented in this encounterMercy Health St. [facility]07-14-2023 NoteHNO ID: [id number] Author: Garcia Yost RN Service: ? Author Type: Registered Nurse Type: Progress Notes Filed: 03/12/2023 3:27 PM Note Text: 1429 Doxorubin stopped due to pt developing chest tightness and being flushed. Dr. Frazier present by chairside. See flowsheet for vitals. Pt treated with IVF, 25mg benadryl and 100mg solucortef. Pt transferred to [facility] through ambulance due to continuous chest tightness. Dr. Perez paged by this RN and notified about reaction through telephone consult.[facility]07-14-2023 History of Present illness Narrative* Garcia Yost RN - 03/12/2023 3:15 PM EDT 1429 Doxorubin stopped due to pt developing chest tightness and being flushed. Dr. Frazier present bychairside. See flowsheet for vitals. Pt treated with IVF, 25mg benadryl and 100mg solucortef. Pt transferred to [facility] through ambulance due to continuous chest tightness. Dr. Annabel ziegler this RN and notified about reaction through telephone consult. documented in this encounterMercy Health St. [facility]07-14-2023 Hospital Discharge instructions Additional Instructions Follow-up with your oncologist about further chemotherapy options. Take 1 Claritin a day for the next 3 to 5 days. Work Phone: 1(175) 753-630807-12-2023 NoteHNO ID: [id number] Author: Henry Donovan RN Service: ? Author Type: Registered Nurse Type: Progress Notes Filed: 03/10/2023 8:04 AM Note Text: Received a message from Dr Schaefer office. US report reviewed, no further action required. Will update [facility]07-06-2023 NoteHNO ID: [id number] Author: Henry Donovan RN Service: ? Author [...] of the left lower extremity. Discussed with ACCESS ANALYST. Faxed US report and last Dr Perez OV note to Dr Ethan Schaefer (vascular surgeon following patient) See below for history 09/03/2022 - 09/07/2022: Hospital admission: TCU resident for debility, RY, dehydration, UTI, extensive RLE DVT. 09/07/2022 Admitted to for heparin drip secondary to DVT 09/08/2022-09/10/2022: Surgical management w/ Dr. Schaefer for extensive RLE DVT. Patient underwent thrombectomy, balloon angioplasty of right lower extremity DVT and IVC venogram, percutaneous thrombectomy IVC, bilateral common and external arteries angioplasty, IVUS. Patient required admission and rehabilitation. [facility] [id number] History of Present illness Narrative* Henry Donovan [...] of the left lower extremity. Discussed with ACCESS ANALYST. Faxed US report and last Dr Perez OV note to Dr Ethan Schaefer (vascular surgeon following patient) See below for history 09/03/2022 - 09/07/2022: Hospital admission: TCU resident for debility, RY, dehydration, UTI, extensive RLE DVT. 09/07/2022 Admitted to for heparin drip secondary to DVT 09/08/2022-09/10/2022: Surgical management w/ Dr. Schaefer for extensive RLE DVT. Patient underwent thrombectomy, balloon angioplasty of right lower extremity DVT and IVC venogram, percutaneous thrombectomy IVC,bilateral common and external arteries angioplasty, IVUS. Patient required admission and rehabilitation. documented in this encounterMercy Health St. [facility]07-06-2023 Miscellaneous Notes* Telephone Encounter - Racheal Saldana APRN.CNP - 03/04/2023 2:57 PM EDT The following approved medication requests have been transmitted electronically. Requested Prescriptions Signed Prescriptions Disp Refills ondansetron (ZOFRAN) 8 mg tablet 30 tablet 5 Sig: Take 1 tablet by mouth every 6 hours as needed for nausea/vomiting. Authorizing Provider: RACHEAL SALDANA APRN.CNP documented in this encounterMercy Health St. [facility]07-06-2023 History of Present illness Narrative* Jackie Maldonado [...] 04, 2023 2:52 PM documented in this encounterMercy Health St. [facility]07-06-2023 NoteHNO ID: [id number] Author: Jackie Maldonado RDMS Service: ? Author Type: Mold Filler [employer] Dolls Type: Progress Notes Filed: 03/04/2023 2:52 PM [...] Maldonado RDMS RVYaquelin March 04, 2023 2:52 [facility]06-30-2023 NoteHNO ID: [id number] Author: Joseluis Perez MD Service: ? Author [...] removal. Pt declined cytotoxic therapy ER 50%, DC negative 9). 03/31/2018 - 03/16/2019: Letrozole started. Everolimus added 06/23/2018 due to progression. Treatment discontinued 03/16/2019 due to disease progression (confirmed 03/06/2019). Patient elected treatment holiday. 10). 08/2018: PE, IVC filter placement 11). 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 01/01/2022: [facility]. Recommended RT (vs systemic chemotherapy) for management of hypermetabolic aortocaval lymphadenopathy. Patient would prefer treatment in [place], [place]. 13). 02/24/2022 - 03/03/2022: Radiation Therapy (SBRT) - The Aortocaval LNs PTV received a total dose of 2400 cGy in [address] Youngblood 14) 09/03/2022 - 09/07/2022: Hospital admission: TCU resident for debility, RY, dehydration, UTI, extensive RLE DVT. 09/07/2022 Admitted to for heparin drip secondary to DVT 09/08/2022-09/10/2022: Surgical management w/ Dr. Schaefer for extensive RLE DVT. Patient underwent thrombectomy, balloon angioplasty of right lower extremity DVT and IVC venogram, percutaneous thrombectomy IVC, bilateral common and external arteries angioplasty, IVUS. Patient required admission and rehabilitation. 15) 10/2022: PET scan with few new retrocrural lymph nodes suspicious for metastases. Cooker Chip/Onc plan made for observation w/ repeat PET/CT [...] Not identified Nodes negative 11/26/2016 ESTROGEN/PROGESTERONE RECEPTOR (ER/DC) ANALYSIS Estrogen receptors immunostain appears weakly to moderately positive in 30% of cell nuclei. Progesterone receptors immunostain appears mod (more content not included)...[facility] [id number] History of Present illness Narrative * Joseluis [...] removal. Pt declined cytotoxic therapy ER 50%, DC negative 9). 03/31/2018 - 03/16/2019: Letrozole started. Everolimus added 06/23/2018 due to progression. Treatment discontinued 03/16/2019 due to disease progression (confirmed 03/06/2019). Patient elected treatment holiday. 10). 08/2018: PE, IVC filter placement 11). 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 [facility] Recommended RT (vs systemic chemotherapy) for management of hypermetabolic aortocaval lymphadenopathy. Patient would prefer treatment in [place]. 13). 02/24/2022 - 03/03/2022: Radiation Therapy (SBRT) - The Aortocaval LNs PTV received a total doseof 2400 cGy in [address] Youngblood 14) 09/03/2022 - 09/07/2022: Hospital admission: TCU resident for debility, RY, dehydration, UTI, extensive RLE DVT. 09/07/2022 Admitted to for heparin drip secondary to DVT 09/08/2022-09/10/2022: Surgical management w/ Dr. Schaefer for extensive RLE DVT. Patient underwent thrombectomy, balloon angioplasty of right lower extremity DVT and IVC venogram, percutaneous thrombectomy IVC, bilateral common and external arteries angioplasty, IVUS. Patient required admission and rehabilitation. 15) 10/2022: PET scan with few new retrocrural lymph nodes suspicious for metastases. Cooker Chip/Onc plan made for observation w/ repeat PET/CT [...] Not identified Nodes negative 11/26/2016 ESTROGEN/PROGESTERONE RECEPTOR (ER/DC) ANALYSIS Estrogen receptors immunostain appears weakly to [...] plan to have her infusions done in [place] and I will follow up with her [...] Past Histories independently gathered by the clinical support dba and the remaining scribed note accurately describes my personal service to the patient. Joseluis Perez MD documented in this encounterMercy Health St. [facility]06-30-2023 Nurse Note* Jackie Murphy MA - 02/26/2023 1:53 PM EDT PT c/o intermittent night sweats. documented in this encounterMercy Health St. [facility]06-21-2023 NoteHNO ID: [id number] Author: Jackie Arce RT(R) Service: Nuclear Radiology [...] safety can be found using this link: [email or web address] SIGNATURE: RT Wayne(Maribel) PATIENT NAME: Rosita Kennedy DATE: February 17, 2023 TIME: 1:53 PM PAGER/CONTACT #:[facility] [id number] History of Present illness Narrative* RT Wayne(R) [...] 1:53 PM PAGER/CONTACT #: documented in this encounterMercy Health St. [facility]04-27-2023 History of Present illness Narrative* Wanda Blum Population Health Navigator - 12/24/2022 11:07 AM EDT POPULATION HEALTH NAVIGATION OUTREACH Action/FYI HCC gaps- Diagnosis with HCC gap left: I82.502 - Chronic deep vein thrombosis (DVT) of left lower extremity (HCC) - [id number] Last Billed 10/28/2021 G35 - Multiple sclerosis (HCC) - [id number] Last Billed 07/07/2022 Outcome- lvm/sent mychart to schedule follow up appt with pcp or annual wellness. Had appt scheduled in october for 3 month follow up but patient cancelled. Last pcp visit- 08-28-22 w/lead application architect No future appt scheduled Also due/discuss- mammogram [...] 24, 2022 11:07 AM documented in this encounterMercy Health St. [facility]04-17-2023 Miscellaneous Notes* Telephone Encounter - Cami Baez RN - 12/14/2022 11:27 AM EDT Pt's son calling in to report Rosita tested positive for COVID on 11/12/2022 and has had right arm/shoulder soreness for the last 4-5 days not related to any activity. documented in this encounterMercy Health St. [facility]04-10-2023 Miscellaneous Notes* Telephone Encounter - Henry Donovan [...] made. Will update team. documented in this encounterMercy Health St. [facility]04-03-2023 NoteHNO ID: [id number] Author: Henry Donovan RN Service: ? Author [...] of the family and will call this internal communications writer with her decision.[facility] [id number] History of Present illness Narrative* Henry Donovan [...] of the family and will call this internal communications writer with her decision. documented in this encounterMercy Health St. [facility]03-31-2023 NoteHNO ID: [id number] Author: Joseluis Perez MD Service: ? 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 MMR normal. Now with recurrence. HISTORY TO DATE: 1. Initital presentation: Saw kSylar Ackerman CNP for complaints of PMB, 5 [...] removal. Pt declined cytotoxic therapy ER 50%, DC negative 9). 03/31/2018 - 03/16/2019: Letrozole started. Everolimus added 06/23/2018 due to progression. Treatment discontinued 03/16/2019 due to disease progression (confirmed 03/06/2019). Patient elected treatment holiday. 10.)08/2018: PE, IVC filter placement 11.) 01/01/2022: [facility]. Recommended RT (vs systemic chemotherapy) for management of hypermetabolic aortocaval lymphadenopathy (12/15 CT and 12/22 PET). Patient would prefer treatment in [place], [place]. 12). 01/05/2022: Consult with Rad/Onc (Dr. Solorio in [place]). Per family, RT was not recommended due to concerns with risk of damage to bowels and kidney given the lymph node location. 13). 02/24/2022 - 03/03/2022: Radiation Therapy (SBRT) - The Aortocaval LNs PTV received a total dose of 2400 cGy in 3 fractions 14) 09/03/2022 - 09/07/2022: Hospital admission: TCU resident for debility, YR, dehydration, UTI, extensive RLE DVT. 09/07/2022 Admitted to for heparin drip secondary to DVT 15) 09/08/2022-07/2023 Dr. Schaefer performed thrombectomy, balloon angioplasty of right lower extremity DVT. 09/10/2022 IVC venogram, percutaneous thrombectomy IVC, bilateral common and external arteries angioplasty, IVUS. Date of last follow up: 06/19/22 [facility] Genetics Consultation/Testing Consultation: No Genetic Testing: No [...] Not identified Nodes negative 11/26/2016 ESTROGEN/PROGESTERONE RECEPTOR (ER/DC) ANALYSIS Estrogen receptors immunostain appears weakly to [...] Neal Mckinney, Catrachita (more content not included)... [facility] [id number] History of Present illness Narrative* Joseluis Perez [...] removal. Pt declined cytotoxic therapy ER 50%, DC negative 9). 03/31/2018 - 03/16/2019: Letrozole started. Everolimus added 06/23/2018 due to progression. Treatment discontinued 03/16/2019 due to disease progression (confirmed 03/06/2019). Patient elected treatment holiday. 10.)08/2018: PE, IVC filter placement 11.) [facility] Recommended RT (vs systemic chemotherapy) for management of hypermetabolic aortocaval lymphadenopathy (12/15 CT and 12/22 PET). Patient would prefer treatment in [place], [place]. 12). 01/05/2022: Consult with Rad/Onc (Dr. Solorio in [place]). Per family, RT was not recommended due toconcerns with risk of damage to bowels and kidney given the lymph node location. 13). 02/24/2022 - 03/03/2022: Radiation Therapy (SBRT) - The Aortocaval LNs PTV received a total doseof 2400 cGy in 3 fractions 14) 09/03/2022 - 09/07/2022: Hospital admission: TCU resident for debility, RY, dehydration, UTI, extensive RLE DVT. 09/07/2022 Admitted to for heparin drip secondary to DVT 15) 09/08/2022-07/2023 Dr. Schaefer performed thrombectomy, balloon angioplasty of right lower extremity DVT. 09/10/2022 IVC venogram, percutaneous thrombectomy IVC, bilateral common and external arteries angioplasty, IVUS. Date of last follow up: 06/19/22 [facility] Genetics Consultation/Testing Consultation: No Genetic Testing: No [...] Not identified Nodes negative 11/26/2016 ESTROGEN/PROGESTERONE RECEPTOR (ER/DC) ANALYSIS Estrogen receptors immunostain appears weakly to [...] complete. Joseluis Perez MD documented in this encounterMercy Health St. [facility]03-08-2023 NoteHNO ID: [id number] Author: RT Marcel(R) Service: Nuclear Medicine Author [...] November 04, 2022 TIME: 1:59 PM PAGER/CONTACT #:[facility] [phone] Miscellaneous Notes* Telephone Encounter - Rosmery Horn MD - 09/22/2022 4:54 PM EST Noted and agree. Regards, Rosmery Horn MD * Telephone Encounter - Darlin Marshall RN - 09/22/2022 3:44 PM EST Daniel [facility] calling from [facility] Center to report plan of care for patient and PT will visit patient 1 time a week for first week, 2 times a week for 2 weeks, and 1 time a week for 2 weeks following discharge home from [facility] TCU after DVT and IVC filter placement. Darlin Marshall RN documented in this encounterMercy Health St. [facility]01-18-[address] Min September 16, 2022 7:14pm Note Date/Time September 16, 2022 7 :07pm [facility] Medical Records Department [address] [place] [address] Discharge Summary 09/16/22 1905 MR#: [id number] Acct: [id number] Name: ROSITA KENNEDY Rep #:[id number] : 1945 76 From: Bernardino Min MD PCP: Rosmery Horn MD Status:ADM IN Location: [place] [address] Providers Date of Admission: 09/11/22 Primary Care [...] 125mg daily, Mirtazapine 15mg qhs, stable chronic skilled nursing use, GDR not recommended. * Nausea - [...] Document 09/16/22 11:06 NATALY (Rec: 09/16/22 11:07 [facility] [id number]) Nutrition Malnutrition Evidence of Malnutrition Exists Yes [...] Horn MD [Primary Care Provider] - ([address] [facility] [phone]) Disposition Disposition (needs filled in before D/C Order can be placed): Home Health Service 09/16/221913 <Electronically signed by Bernardino Min MD> Cosigner Signature (if applicable): CC: Rosmery Horn MD; Dr. Bernardino Min MD~ Signed Work Phone: 1(181) 580-821101-16-[address] Min September 14, 2022 11:37am Note Date/Time September 14, 2022 1 1:20am [facility] Medical Records Department [address] [place] [id number] Progress Note - Pharmacy 09/14/22 1058 MR#: [id number] Acct: [id number] Name: ROSITA KENNEDY Rep #:[id number] : [...] Oral Tablet 10 Meq [facility] Rivaroxaban 15 mg 09/12/22 08:00 09/13/22 17:05 Rivaroxaban 15 Mg Tablet PO 10/02/22 08:01 [facility] Administration Rivaroxaban 20 mg 10/03/22 17:00 Rivaroxaban 20 Mg Tablet PO [facility] Senna/Docusate Sodium 2 tablet 09/12/22 06:00 09/14/22 05:45 Senna/Docusate Sodium 1 Tablet PO 2 tablet BID [facility] Administration Sertraline HCl 125 mg 09/12/22 06:00 09/14/22 05:44 Sertraline 100 Mg Tablet PO 125 mg DAILY [facility] Administration Sodium Chloride 10 - 40 ml [...] by Bernardino Min MD> CC: ~ Signed Work Phone: 1(547) 136-274901-13-2023 History and physical note Author Dr. Min September 11, 2022 9:32pm Note Date/Time September 11, 2022 9 :18pm [facility] Medical Records Department [address] [place] [address] History & Physical Exam 09/11/222104 MR#: [id number] Acct: [id number] Name: ROSITA KENNEDY Rep #:[id number] : 1945 76 From: Bernardino Min MD PCP: Rosmery Horn MD Status:ADM IN Location: TCU [place] [address] HPI - General General Date of Admission: 09/11/22 Date of Service: 09/11/22 Chief Complaint: Here for rehabilitation. HPI Narrative ROSITA KENNEDY, is a 76 Female who presents with followin09/03/2022 - 09/07/2022 TCU resident for debility, acute kidney injury, dehydration,urinary tract infection, extensive right lower extremity DVT. 09/07/2022 Admitted to for heparin drip. 09/08/2021 Dr. Schaefer performed [...] rehabilitation, strengthening, prior to discharge home alone. [facility] Medical History Brain bleed Glaucoma Multiple sclerosis [...] 125mg daily, Mirtazapine 15mg qhs, stable chronic skilled nursing use, GDR not recommended. * Nausea - Zofran 8mg q8h prn. * Hypokalemia - KCL 10meq daily. * Vitamin D deficiency - D3 25mcg daily. * Extensive right lower extremity DVT:? Xarelto 15mg bid thru 10/02/2022, then 20mg daily. 09/11/222131 <Electronically signed by Bernardino Min MD> Cosigner Signature (if applicable): CC: Rosmery Horn MD; Dr. Bernardino Min MD~ Signed Work Phone: 1(425) 241-323301-09-2023 Hospital Discharge instructions Additional Instructions Discharge to [facility] 09/07/2022 for heparin drip, then Thrombectomy 09/08/[address] Schaefer. Work Phone: 1(234) 761-810412-30-2022 Miscellaneous Notes* Telephone Encounter - Ellen Dash APRN.CNP - 08/28/2022 2:50 PM EST Seen by Nelia Arreola in office today Ellen Dash APRN.CNP * Telephone Encounter - Tamara Gagnon RN - 08/27/2022 4:41 PM EST Patient's igkdtdzn-mc-pxd Veronica Kennedy calling to state patient may [...] advise patient. Thank you. documented in this encounterMercy Health St. [facility]12-30-2022 Instructions* Patient Instructions* Nelia Arreola APRN.CNP - [...] next week if necessary. documented in this encounterMercy Health St. [facility]12-30-2022 History of Present illness Narrative* Nelia Arreola [...] Decreased appetite. Had partial donut and partial Cypriot muffin. Hx uncontrollable diarrhea. This started up [...] mouth once daily. L GASSERI/B BIFIDUM/B LONGUM ([facility] [employer] HEALTH ORAL) Take by mouth. CHOLECALCIFEROL, VITAMIN [...] treat today. If no improvement, patient and fnrsuyzk-pg-ixp are agreeable to coming to the office [...] treat today. If no improvement, patient and iqktjgem-qm-xdj are agreeable to coming to the office [...] treat today. If no improvement, patient and ochusjxc-gk-tvz are agreeable to coming to the office [...] BLD - COMP METABOLIC PANEL Nelia Arreola APRN.TUFTING MACHINE FIXER documented in this [facility]12-29-2022 Miscellaneous Notes* Telephone Encounter - Luisa [...] but not at present Protocols used: Rectal Tnpfarju-OZKRH-FP conf to AC to schedule documented in this encounterMercy Health St. [facility]12-17-2022 Miscellaneous Notes* Telephone Encounter - Franchesca Matson [...] asking for rx to be sent to [facility] please. * Telephone Encounter - Franchesca Matson [...] her cough to [facility]. documented in this encounterMercy Health St. [facility]12-05-2022 History of Present illness Narrative* Rosmery Horn [...] K1 (VIACTIV ORAL) L GASSERI/B BIFIDUM/B LONGUM ([facility] HEALTH ORAL) CHOLECALCIFEROL, VITAMIN D3, (VITAMIN [...] medication. Rosmery Horn MD documented in this encounterMercy Health St. [facility]12-01-2022 Miscellaneous Notes* Telephone Encounter - Lyn Short [...] you. Lyn Short RN documented in this encounterMercy Health St. [facility]10-21-2022 NoteHNO ID: [id number] Author: Joseluis Perez MD Service: ? Author [...] and birthday verified: Yes Location of patient: [place] Duration: 7 minutes Persons Present: patient and [...] removal. Pt declined cytotoxic therapy ER 50%, DC negative 10). 03/31/2018 - 03/16/2019: Letrozole started. Everolimus added 06/23/2018 due to progression. Treatment discontinued 03/16/2019 due to disease progression (confirmed 03/06/2019). Patient elected treatment holiday. 11.)08/2018: PE, IVC filter placement 12.) 01/01/2022: [facility]. Recommended RT (vs systemic chemotherapy) for management of hypermetabolic aortocaval lymphadenopathy (12/15 CT and 12/22 PET). Patient would prefer treatment in [place], [place]. 13). 01/05/2022: Consult with Rad/Onc (Dr. Solorio in [place]). Per family, RT was not recommended due [...] Not identified Nodes negative 11/26/2016 ESTROGEN/PROGESTERONE RECEPTOR (ER/DC) ANALYSIS Estrogen receptors immunostain appears weakly to moderately positive in 30% of cell nuclei. Progesterone receptors immunostain appears moderately positive in 50% of cell nuclei. 2016 BIOPSY- CT-guided percutaneous biopsy of retroperitoneal lymph node Right lower back retroperitoneal lymph node, biopsy Metastatic carcinoma consistent with endometrial primary. Keratin AE1/AE3 and PAX8 are positive, consistent with the above interpretation. Drs. Mathews (more content not included)...[facility] 06-19-2022 History of Present illness Narrative* Joseluis [...] and birthday verified: Yes Location of patient: [place] Duration: 7 minutes Persons Present: patient and [...] removal. Pt declined cytotoxic therapy ER 50%, DC negative 10). 03/31/2018 - 03/16/2019: Letrozole started. Everolimus added 06/23/2018 due to progression. Treatment discontinued 03/16/2019 due to disease progression (confirmed 03/06/2019). Patient elected treatment holiday. 11.)08/2018: PE, IVC filter placement 12.) 01/01/2022: [facility] Recommended RT (vs systemic chemotherapy) for management of hypermetabolic aortocaval lymphadenopathy (12/15 CT and 12/22 PET). Patient would prefer treatment in [place], [place]. 13). 01/05/2022: Consult with Rad/Onc (Dr. Solorio in [place]). Per family, RT was not recommended due [...] fractions Date of last follow up: 03/26/2022 [facility] PAST MEDICAL HISTORY Diagnosis Date Cataracts, bilateral [...] Not identified Nodes negative 11/26/2016 ESTROGEN/PROGESTERONE RECEPTOR (ER/DC) ANALYSIS Estrogen receptors immunostain appears weakly to [...] complete. Joseluis Perez MD documented in this encounterMercy Health St. [facility]10-18-2022 History of Present illness Narrative* Naila Youngblood [...] once daily.^Disp: ^Rfl: L GASSERI/B BIFIDUM/B LONGUM ([employer] HEALTH ORAL)^Take by mouth.^Disp: ^Rfl: CHOLECALCIFEROL, VITAMIN [...] to follow up with Dr Perez from [facility]. We will see her again in future on a PRNbasis. Signed by: Naila Youngblood MD, MSc, MRCP, FRCR, DABR Radiation Oncology Staff Physician June 22, 2022 7:43 AM cc: Rosmery Horn [address] [place] [address] Naila Youngblood [address] [facility] [address] Joseluis Cottrell MD documented in this encounterMercy Health St. [facility]10-14-2022 NoteHNO ID: [id number] Author: Mata Barry, [employer] Service: Nuclear Medicine Author Type: Wardrobe Coordinator Type: Progress Notes Filed: 06/12/2022 10:12 AM [...] 1000 PATIENT DISCHARGED TO: Ambulatory patient, left MA department area. A Diagnostic radioactive procedure has taken place, with no further precautions necessary other than routine body substance precautions. More information regarding radiation safety can be found using this link: [email or web address] SIGNATURE: Lyn Valencia Solfo PATIENT NAME: Rosita Kennedy DATE: June 12, 2022 TIME: 10:11 AM PAGER/CONTACT [id number] History of Present illness Narrative* Lyn Valencia [...] 10:11 AM PAGER/CONTACT #: documented in this encounterMercy Health St. [facility]10-01-2022 History of Present illness Narrative* Rosmery Horn [...] K1 (VIACTIV ORAL) L GASSERI/B BIFIDUM/B LONGUM ([facility] HEALTH ORAL) CHOLECALCIFEROL, VITAMIN D3, (VITAMIN [...] C54.1 Rosmery Horn MD documented in this encounterMercy Health St. [facility]10-01-2022 Miscellaneous Notes* Telephone Encounter - Rosmery Horn [...] K1 (VIACTIV ORAL) L GASSERI/B BIFIDUM/B LONGUM ([facility] HEALTH ORAL) CHOLECALCIFEROL, VITAMIN D3, (VITAMIN [...] cyanosis. Good capillary refill. documented in this encounterMercy Health St. [facility]09-30-2022 Miscellaneous Notes* Telephone Encounter - Ad Encarnacion [...] Has not eaten spoiled food. Tues ate russian and that night had a blow out. 10. ANTIBIOTIC USE: Macrobid daily for frequent UTI's for a couple years. 11. OTHER SYMPTOMS: No fever. No blood in stool. Having incontinent episodes. Had radiation sessiona month ago (had 3 sessions for uterine CA). Received covid and flu vaccine 2 days ago. 12. : No Protocols used: Cskngfke-LGVNN-FV documented in this encounterMercy Health St. [facility]09-05-2022 History of Present illness Narrative* Naila Youngblood [...] once daily.^Disp: ^Rfl: L GASSERI/B BIFIDUM/B LONGUM ([facility] ORAL)^Take by mouth.^Disp: ^Rfl: CHOLECALCIFEROL, [...] will arrange for a PET/CT scan in depew early May giles further zoom visit to discuss results. Signed by: Naila Youngblood MD, MSc, MRCP, FRCR, DABR Radiation Oncology Staff Physician May 04, 2022 6:18 PM cc: Rosmery Horn [address] [place] [address] Naila Youngblood [address] [facility] [address] documented in this encounterMercy Health St. [facility]09-02-2022 Instructions* Patient Instructions* Peter Soto MD - 05/01/2022 11:15 AM EDT Current Ophthalmic Meds travoprost (TRAVATAN Z) 0.004 % ophthalmic drops Use 1 Drop in both eyes daily at bedtime. brimonidine-timolol (COMBIGAN) 0.2-0.5 % ophthalmic solution Use 1 Drop in the right eye twice daily. Use at 9 AM and 3 PM If you have any questions please contact our office at [phone]. After office hours or on the weekend, please call Dr. Soto on his cell phone at [phone]. documented in this encounterMercy Health St. [facility]09-02-2022 History of Present illness Narrative* Peter Soto [...] diagnosis, and treatment options. documented in this encounterMercy Health St. [facility]08-29-2022 NoteDischarge Summary PHYSICAL THERAPY Referral/Discharge Information: Date [...] PT; Apr 27 2022 9:13AM EST (Author) [id number] Instructions* Patient Instructions* Naya Dash APRN.CNP - 04/14/2022 11:43 AM EDT Uro-materials specialist- Dr. Rg documented in this encounterMercy Health St. [facility]08-16-2022 History of Present illness Narrative* Naya Dash [...] 1 Tube^Rfl: 5 L GASSERI/B BIFIDUM/B LONGUM ([employer] HEALTH ORAL)^Take by mouth.^Disp: ^Rfl: CHOLECALCIFEROL, VITAMIN [...] plan. Naya Dash APRN.CNP documented in this encounterMercy Health St. [facility]08-10-2022 Instructions* Patient Instructions* Jackie Light APRN.CNP - [...] treated. A physician, nurse practitioner or physician assistant purchasing manager may treat with a short course of [...] women if symptoms resolve. documented in this encounterMercy Health St. [facility]08-10-2022 History of Present illness Narrative* Jackie Light [...] history is provided by the patient. No judicial clerk was used. UTI This is a recurrent [...] 1 Tube^Rfl: 5 L GASSERI/B BIFIDUM/B LONGUM ([employer] [facility] ORAL)^Take by mouth.^Disp: ^Rfl: CHOLECALCIFEROL, [...] nursing note reviewed. Exam conducted with a quality assurance intern present. Constitutional: General: She is not in [...] to Abebe Gonsalez. Ashley Torrez TEACHING PROVIDER (Physician/PA/DYNAMITE RECLAIMER) NOTE OF PERSONAL INVOLVEMENT IN CARE: I have personally seen and examined the patient and performed the medical decision-making components. I have reviewed the Advanced Practice Registered Nurse (DYNAMITE RECLAIMER) Student's documentation and verified the findings in the note as written. Any additions or changes are noted in bold/italics. Signature: Jackie Light Date: 04/08/2022 Time: 6:31 PM documented in this encounterMercy Health St. [facility]07-28-2022 History of Present illness Narrative* Joseluis Perez [...] and birthday verified: Yes Location of patient: [place] Duration: 8 minutes Persons Present: patient and [...] removal. Pt declined cytotoxic therapy ER 50%, DC negative 10). 03/31/2018 - 03/16/2019: Letrozole started. Everolimus added 06/23/2018 due to progression. Treatment discontinued 03/16/2019 due to disease progression (confirmed 03/06/2019). Patient elected treatment holiday. 11.)08/2018: PE, IVC filter placement 12.) 01/01/2022: [facility]. Recommended RT (vs systemic chemotherapy) for management of hypermetabolic aortocaval lymphadenopathy (12/15 CT and 12/22 PET). Patient would prefer treatment in [place], [place]. 13). 01/05/2022: Consult with Rad/Onc (Dr. Solorio in [place]). Per family, RT was not recommended due [...] Not identified Nodes negative 11/26/2016 ESTROGEN/PROGESTERONE RECEPTOR (ER/DC) ANALYSIS Estrogen receptors immunostain appears weakly to [...] extirpation Pt declines cytotoxic therapy ER 50%, DC negative Letrozole start 03/31/2018 Everolimus add 06/23/201810/01 [...] treatment response. I will speak with Dr. Youngblood and plan to obtain post treatment PET/CT [...] complete. Joseluis Perez MD documented in this encounterMercy Health St. [facility]07-26-2022 Miscellaneous Notes* Telephone Encounter - Ramón Ball [...] PA-C. Ramón Ball LPN documented in this encounterMercy Health St. [facility]07-25-2022 Instructions* Patient Instructions* Frank Gross MD - 03/23/2022 11:02 AM EDT Start the methenamine that was sent to your pharmacy PATIENT INFORMATION: Prevention of recurrent UTI #1. Cranberry some studies show a modest benefit. There are different products available and dosingsometimes can be around 500 mg , 2 times each day #2. H-txtfajo-rmrhcwoez brands may be available and dosing usually [...] like at some point documented in this encounterMercy Health St. [facility]07-25-2022 Procedure note* Frank Gross MD - 03/23/2022 10:32 AM EDT Procedure(s): CYSTOSCOPY Pre-Procedure Diagnose(s): Recurrent UTI Post-Procedure Diagnose(s): Recurrent UTI CYSTOSCOPY PROCEDURE NOTE: [id number]/fulg [id number],bx Rosita Kennedy is a 76 year old female who presents for a cystoscopy. Pt ID verified with patient: yes Procedure verified with patient: yes Procedure confirmed with physician and support dba: yes Special equipment cystoscope UNIVERSAL PROTOCOL / [...] plans Frank Gross MD documented in this encounterMercy Health St. [facility]07-25-2022 History of Present illness Narrative* Frank Gross [...] trabeculation March 10, 2022 urine culture 50 [id number] Enterococcus susceptible to ampicillin and vancomycin February [...] Date Value 02/12/2022 Negative 09/09/2021 Negative Specific Phillips, Ur (no units) Date Value 02/12/2022 1.020 [...] mouth once daily. L GASSERI/B BIFIDUM/B LONGUM ([employer] HEALTH ORAL), Take by mouth. CHOLECALCIFEROL, VITAMIN [...] that may be inappropriate. documented in this encounterMercy Health St. [facility]07-22-2022 Miscellaneous Notes* Telephone Encounter - Henry Rodgers [...] questions or concerns or Radiation Oncology Fellow Library Information Technician after 5pm and on weekends for urgent issues. Patient verbalized understanding of when to seek medical attention and after hours number protocol. Follow up appointment: Not yet scheduled Henry DANIELS, RN documented in this encounterMercy Health St. [facility]07-18-2022 Miscellaneous Notes* Telephone Encounter - Ramón Ball LPN - 03/16/2022 8:23 AM EDT Called patient. Verified name and date of . Patient aware she has option to have labs done in [place] but she does state she prefers to [...] can have urine checked at facility in [place] rather than [place]? Ifit is a issue she is okay to have done in [facility]. Ramón Ball LPN * Telephone Encounter - [...] tests when no UTI JESSY Da Silva, [place], ANASTASIYA * Telephone Encounter - Ramón Blal LPN - 03/13/2022 11:03 AM EDT Patients [...] recommendations. Ramón Ball LPN documented in this encounterMercy Health St. [facility]06-30-2022 History of Present illness Narrative* Naila Youngblood [...] by: Naila Youngblood MD documented in this encounterMercy Health St. [facility]06-24-2022 History of Present illness Narrative* Abebe Gonsalez PA-C - 02/20/2022 11:22 AM EDT Images from the original note were not included. [facility] PATIENT INFO: Rosita Kennedy CHIEF COMPLAINT: Recurrent [...] mouth once daily. L GASSERI/B BIFIDUM/B LONGUM ([employer] HEALTH ORAL) Take by mouth. CHOLECALCIFEROL, VITAMIN [...] no deformities, healthy appearing Exam: Deferred to [facility] follow up IMPRESSION / PLAN: > History [...] Patient unable to void. documented in this encounterMercy Health St. [facility]06-21-2022 Miscellaneous Notes* Telephone Encounter - Franchesca Matson [...] advise, Mahsa Ramirez RN documented in this encounterMercy Health St. [facility]06-16-2022 Nurse Note* Jackie Fry RN - 02/12/2022 1:44 PM EDT Radiation Oncology Nursing Note PATIENT NAME: Rosita Kennedy PATIENT [facility] FACILITY/LOCATION: [facility] PROCEDURE: Contrast Injection for CT Simulation Safety [...] Kennedy PATIENT February 12, 2022 [facility] FACILITY/LOCATION: [facility] READINESS TO LEARN Cognitive Ability: Alert and [...] need for social work, van service, and volunteer services specialist. Was approved? Yes Signed by: Jackie Fry RN documented in this encounterMercy Health St. [facility]06-16-2022 History of Present illness Narrative* Naila Youngblood MD - 02/12/2022 12:00 AM EDT ROSITA KENNEDY [id number] 02/12/[address] [facility] Department of Radiation Oncology [facility] RADIATION ONCOLOGY SIMULATION NOTE DATE OF SIMULATION: [...] any boost lin if applicable. Electronically Signed Naila Youngblood M.D. 21:40 AM documented in this encounterMercy Health St. [facility]06-16-2022 History of Present illness Narrative* Naila Youngblood MD - 02/12/2022 12:00 AM EDT ROSITA KENNEDY Mela [id number] 02/12/2022 [facility] Department of Radiation Oncology Treatment Planning [...] Youngblood M.D. 25:44 PM documented in this encounterMercy Health St. [facility]06-10-2022 History of Present illness Narrative* Naila Youngblood [...] sob, or cough. She lives alone in [place]. She denies smoking or illicit drug use. [...] Curtis MD Radiation Oncology Resident, PGY2 Pager: [phone] Staff Note: I personally interviewed and examined the patient, I also confirmed and edited the history, assessment and management plan documented by the resident. Assessment: as annotated above. Plan : I agree with the above decision made by the resident. Oligo-persistent disease, for consideration of SBRT 24Gy/3fx'sWe spent over 50% of a total tlgi-tt-orpa time of 60 minutes, counseling/coordinating patient care. Naila Youngblood MD, MSc, MRCP, [facility] Radiation Oncology Staff Physician February 11, 2022 9:01 AM cc: Rosmery Horn [address] [place] [address] Racheal Ivone Saldana [address] [facility] [address] MD Nenita Vazquez MD documented in this encounterMercy Health St. [facility]06-03-2022 History of Present illness Narrative* Rosmery Horn [...] every other day. L GASSERI/B BIFIDUM/B LONGUM ([facility] [employer] HEALTH ORAL) Take by mouth. CHOLECALCIFEROL, VITAMIN [...] TABLET Rosmery Horn MD documented in this encounterMercy Health St. [facility]05-27-2022 Miscellaneous Notes* Telephone Encounter - Racheal Saldana APRN.CNP - 01/23/2022 1:55 PM EDT I called and spoke to Rivera regarding his mother's recent UA results - suspicious for infection. Still awaiting UCx results. Will proceed with treating her with an antibiotic and tailor based on results. He is aware rad onc [facility]. He is going to call and arrange appointment. Racheal Saldana APRN.CNP The following approved medication requests have been transmitted electronically. Signed Prescriptions Disp Refills cephALEXin (KEFLEX) 500 mg capsule 20 capsule 0 Sig: Take 1 capsule by mouth four times daily for 5 days. Authorizing Provider: RACHEAL SALDANA APRN.CNP documented in this encounterMercy Health St. [facility]05-26-2022 History of Present illness Narrative* Joseluis Perez [...] removal. Pt declined cytotoxic therapy ER 50%, DC negative 10). 03/31/2018 - 03/16/2019: Letrozole started. Everolimus added 06/23/2018 due to progression. Treatment discontinued 03/16/2019 due to disease progression (confirmed 03/06/2019). Patient elected treatment holiday. 11.)08/2018: PE, IVC filter placement 12.) 01/01/2022: [facility]. Recommended RT (vs systemic chemotherapy) for management of hypermetabolic aortocaval lymphadenopathy (12/15 CT and 12/22 PET). Patient would prefer treatment in [place], [place]. 13). 01/05/2022: Consult with Rad/Onc (Dr. Solorio in [place]). Per family, RT was not recommended due [...] Not identified Nodes negative 11/26/2016 ESTROGEN/PROGESTERONE RECEPTOR (ER/DC) ANALYSIS Estrogen receptors immunostain appears weakly to [...] extirpation Pt declines cytotoxic therapy ER 50%, DC negative Letrozole start 03/31/2018 Everolimus add 06/23/201810/01 [...] patient that although Dr. Solorio (Rad/Onc in [place]) does not recommend RT given the risks, [...] systemic therapy, it can be administered in [place], [place]. Information pamphlet on each drug regimen [...] complete. Joseluis Perez MD documented in this encounterMer[facility]2022 Miscellaneous Notes* Telephone Encounter - Kerry Leatha [...] you. Kerry Zhang LPN documented in this encounterMercy Health St. [facility]05-16-2022 Miscellaneous Notes* Telephone Encounter - Genny Keane Ma - 01/12/2022 4:33 PM EDT Mailed to home address * Telephone Encounter - Ellen Dash APRN.CNP - 01/12/2022 4:25 PM EDT Patient needing handicap placard, see other telephone encounter for further information. Please faxas requested. Thank you Ellen Dash APRN.CNP documented in this encounterMercy Health St. [facility]05-16-2022 Miscellaneous Notes* Telephone Encounter - Ellen Dash [...] Contacted patient for update [facility], states her last session is tomorrow and will have faxed over when complete. Patient requesting a handicap placecard for her back issues. Advised patient would check with you or forward to PCP if not appropriate. documented in this encounterMercy Health St. [facility]05-11-2022 Instructions* Patient Instructions* Peter Soto MD - 01/07/2022 4:19 PM EDT Current Ophthalmic Meds brimonidine-timolol (COMBIGAN) 0.2-0.5 % ophthalmic solution Use 1 Drop in the right eye twice daily. Use at 9 AM and 3 PM Continue: Vyzulta solution instill 1 drop at bedtime Right Eye. If you have any questions please contact our office at [phone]. After office hours or on the weekend, please call Dr. Soto on his cell phone at [phone]. documented in this encounterMercy Health St. [facility]05-11-2022 History of Present illness Narrative* Peter Soto [...] diagnosis, and treatment options. documented in this encounterMercy Health St. [facility]05-09-2022 History of Present illness Narrative* Joseluis Perez [...] removal. Pt declined cytotoxic therapy ER 50%, DC negative 10). 03/31/2018 - 03/16/2019: Letrozole started. Everolimus added 06/23/2018 due to progression. Treatment discontinued 03/16/2019 due to disease progression (confirmed 03/06/2019). Patient elected treatment holiday. 11.)08/2018: PE, IVC filter placement 12.) 01/01/2022: [facility]. Recommended RT (vs systemic chemotherapy) for management of hypermetabolic aortocaval lymphadenopathy (12/15 CT and 12/22 PET). Patient agreeable to treatment in [place], [place]. 13). 01/05/2022: Consult with Rad/Onc (Dr. [...] Not identified Nodes negative 11/26/2016 ESTROGEN/PROGESTERONE RECEPTOR (ER/DC) ANALYSIS Estrogen receptors immunostain appears weakly to [...] performance w/o restriction. SUBJECTIVE: N/a. 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 Spoke to patient's family. OBJECTIVE: Deferred due [...] extirpation Pt declines cytotoxic therapy ER 50%, DC negative Letrozole start 03/31/2018 Everolimus add 06/23/2018 [...] patient consulted with Rad/Onc (Dr. Solorio) at [place]; however, radiation therapy was not recommended due [...] complete. Joseluis Perez MD documented in this encounterMercy Health St. [facility]05-09-2022 History of Present illness Narrative* Nenita Solorio [...] consistent with endometrial primary, ER+ 50% and DC- 0%. On 11/30/2016, FNA of the left [...] case with Dr. Jiang at the main [place]. Signed by: Nenita Solorio MD cc: Rosmery Horn [address] [place] [address] Racheal Saldana [address] [facility] [id number] Joseluis Perez MD documented in this encounterMercy Health St. [facility]05-09-2022 Nurse Note* Denise Ortiz RN - 01/05/2022 1:41 PM EDT Radiation Therapy - Nursing Note (Consult) PATIENT NAME: Rosita Kennedy PATIENT January 05, 2022 [facility] FACILITY/LOCATION: [place] Chief Complaint: new met. lesion, hx endometrial CA Reason for visit: Consult. Referring physician: Internal provider Dr Perez Subjective Data: states her abdomen has gotten larger over the last several months, but no pain. does have pain in back from compression fracture Additional Data Do you want to see a Sewing Machine Maintenance Mechanic? No Are you interested in information about fertility? No Status: Post-menopausal ÓSCAR?BSO Stress Scale: On a scale of 0 to 10, what number best describes how much distress you have experienced in the past week?(0 being no distress and 10 being extreme distress) 5 Social work notified: no SIGNED by: Denise Ortiz RN documented in this encounterMercy [facility] St. [facility]05-05-2022 History of Present illness Narrative* Joseluis Perez [...] removal. Pt declined cytotoxic therapy ER 50%, DC negative 9). 03/31/2018: Letrozole started. Everolimus added [...] Not identified Nodes negative 11/26/2016 ESTROGEN/PROGESTERONE RECEPTOR (ER/DC) ANALYSIS Estrogen receptors immunostain appears weakly to [...] nl (verified) Complete staging 08/2013 RT deferred ([facility]) Lymphatic recurrence L neck, R retrocaval, bilateral pelvis 2016 CT x 6 12/10/2016 - 04/01/2017 RT c 06/07/[address] met 02/2018 Not amenable to SRS or extirpation Pt declines cytotoxic therapy ER 50%, DC negative Letrozole start 03/31/2018 Everolimus add 06/23/201810/01 [...] consult RT and would prefer treatment in [place], [place]. - Referral placed to Rad/Onc. - [...] complete. Joseluis Perez MD documented in this encounterMercy Health St. [facility]04-25-2022 History of Present illness Narrative* Mata Barry [employer] - 12/22/2021 10:00 AM EDT RADIOLOGY SERVICE [...] 10:35 AM PAGER/CONTACT #: documented in this encounterMercy Health St. [facility]04-18-2022 History of Present illness Narrative* Ramón Huston, [...] 2021 TIME: 4:10 PM documented in this encounterMercy Health St. [facility]03-25-2022 Miscellaneous Notes* Telephone Encounter - Rosmery Horn MD - 11/21/2021 3:28 PM EDT Thanks [...] with this report, we just have the [place] department. We are concerned that they have [...] Regards, Rosmery Horn MD documented in this encounterMercy Health St. [facility]03-31-2021 History of Present illness Narrative* Fred Duarte [...] Aracely 2020 2:13 PM documented in this encounterMercy Health St. [facility]09-24-2019 History of Past illness Narrative* Problem Noted [...] of this encounter (statuses as of 12/05/2021) [facility] of Past illness Narrative* Problem Noted [...] of this encounter (statuses as of 12/05/2021) [facility] illness Narrative* Problem Noted [...] of this encounter (statuses as of 12/16/2021) [facility] illness Narrative* Problem Noted [...] of this encounter (statuses as of 12/23/2021) [facility] illness Narrative* Problem Noted [...] of this encounter (statuses as of 12/23/2021) [facility] illness Narrative* Problem Noted [...] of this encounter (statuses as of 12/25/2021) [facility] Narrative* Problem Noted [...] of this encounter (statuses as of 01/07/2022) [facility] Narrative* Problem Noted [...] of this encounter (statuses as of 01/07/2022) [facility] Narrative* Problem Noted [...] of this encounter (statuses as of 01/08/2022) [facility] Narrative* Problem Noted [...] of this encounter (statuses as of 01/09/2022) [facility] Narrative* Problem Noted [...] of this encounter (statuses as of 01/12/2022) [facility] Narrative* Problem Noted [...] of this encounter (statuses as of 01/12/2022) [facility] Narrative* Problem Noted [...] of this encounter (statuses as of 01/13/2022) [facility] Narrative* Problem Noted [...] of this encounter (statuses as of 01/16/2022) [facility] Narrative* Problem Noted [...] of this encounter (statuses as of 01/21/2022) [facility] Narrative* Problem Noted [...] of this encounter (statuses as of 01/22/2022) [facility] Narrative* Problem Noted [...] of this encounter (statuses as of 01/23/2022) [facility] Narrative* Problem Noted [...] of this encounter (statuses as of 01/28/2022) [facility] Narrative* Problem Noted [...] of this encounter (statuses as of 01/30/2022) [facility] Narrative* Problem Noted [...] of this encounter (statuses as of 02/11/2022) [facility] Narrative* Problem Noted [...] of this encounter (statuses as of 02/12/2022) [facility] Narrative* Problem Noted [...] of this encounter (statuses as of 02/13/2022) [facility] Narrative* Problem Noted [...] of this encounter (statuses as of 02/17/2022) [facility] Narrative* Problem Noted [...] of this encounter (statuses as of 02/17/2022) [facility]* Problem Noted [...] of this encounter (statuses as of 02/20/2022) [facility]* Problem Noted [...] of this encounter (statuses as of 02/21/2022) [facility] Narr[facility]* Problem Noted [...] of this encounter (statuses as of 02/24/2022) [facility]* Problem Noted [...] of this encounter (statuses as of 03/04/2022) [facility] Narr[facility]* Problem Noted [...] of this encounter (statuses as of 03/16/2022) [facility]* Problem Noted [...] of this encounter (statuses as of 03/18/2022) [facility]* Problem Noted [...] of this encounter (statuses as of 03/20/2022) [facility]arr[facility]* Problem Noted [...] of this encounter (statuses as of 03/23/2022) [facility] Narrative* Problem Noted [...] of this encounter (statuses as of 03/24/2022) [facility]arr[facility]* Problem Noted [...] of this encounter (statuses as of 03/24/2022) [facility]* Problem Noted [...] of this encounter (statuses as of 03/27/2022) [facility]arr[facility]* Problem Noted [...] of this encounter (statuses as of 04/08/2022) [facility]arr[facility]* Problem Noted [...] of this encounter (statuses as of 04/14/2022) [facility]* Problem Noted [...] of this encounter (statuses as of 05/01/2022) [facility]* Problem Noted [...] of this encounter (statuses as of 05/04/2022) [facility]* Problem Noted [...] of this encounter (statuses as of 05/04/2022) [facility] Narrative* Problem Noted [...] of this encounter (statuses as of 05/18/2022) [facility]arr[facility]* Problem Noted [...] of this encounter (statuses as of 05/30/2022) [facility]arr[facility]* Problem Noted [...] of this encounter (statuses as of 06/09/2022) [facility]* Problem Noted [...] of this encounter (statuses as of 06/13/2022) [facility] Narr[facility]* Problem Noted [...] of this encounter (statuses as of 06/16/2022) [facility]arr[facility]* Problem Noted [...] of this encounter (statuses as of 06/21/2022) [facility]* Problem Noted [...] of this encounter (statuses as of 06/22/2022) [facility]* Problem Noted [...] of this encounter (statuses as of 07/31/2022) [facility]* Problem Noted [...] of this encounter (statuses as of 08/03/2022) [facility]* Problem Noted [...] of this encounter (statuses as of 08/14/2022) [facility]* Problem Noted [...] of this encounter (statuses as of 08/15/2022) [facility]* Problem Noted [...] of this encounter (statuses as of 09/02/2022) [facility]* Problem Noted [...] of this encounter (statuses as of 09/02/2022) [facility]* Problem Noted [...] of this encounter (statuses as of 09/02/2022) [facility]* Problem Noted [...] of this encounter (statuses as of 09/23/2022) [facility]* Problem Noted [...] of this encounter (statuses as of 11/04/2022) [facility]* Problem Noted [...] of this encounter (statuses as of 11/06/2022) [facility]* Problem Noted [...] of this encounter (statuses as of 11/29/2022) [address] History of Past illness Narrative* Problem [...] of this encounter (statuses as of 11/30/2022) [facility]* Problem Noted [...] of this encounter (statuses as of 11/30/2022) [facility]arr[facility]* Problem Noted [...] of this encounter (statuses as of 12/07/2022) [facility]* Problem Noted [...] of this encounter (statuses as of 12/14/2022) [facility]arr[facility]* Problem Noted [...] of this encounter (statuses as of 12/24/2022) [facility] Narr[facility]* Problem Noted [...] of this encounter (statuses as of 12/24/2022) [facility]arr[facility]* Problem Noted [...] of this encounter (statuses as of 02/17/2023) [facility]* Problem Noted [...] of this encounter (statuses as of 02/18/2023) [facility]* Problem Noted [...] of this encounter (statuses as of 02/18/2023) [facility]arr[facility]* Problem Noted [...] of this encounter (statuses as of 02/22/2023) [facility]* Problem Noted [...] of this encounter (statuses as of 02/25/2023) [facility]arr[facility]* Problem Noted [...] of this encounter (statuses as of 03/03/2023) [facility]arr[facility]* Problem Noted [...] of this encounter (statuses as of 03/03/2023) [facility] Narrative* Problem Noted [...] of this encounter (statuses as of 03/05/2023) [facility]arr[facility]* Problem Noted [...] of this encounter (statuses as of 03/05/2023) [facility]* Problem Noted [...] of this encounter (statuses as of 03/12/2023) [facility]* Problem Noted [...] of this encounter (statuses as of 03/13/2023) [facility]* Problem Noted [...] of this encounter (statuses as of 03/13/2023) [facility]arr[facility]* Problem Noted [...] of this encounter (statuses as of 03/13/2023) [facility]arr[facility]* Problem Noted [...] of this encounter (statuses as of 03/17/2023) [facility]* Problem Noted [...] of this encounter (statuses as of 03/29/2023) [facility]* Problem Noted [...] of this encounter (statuses as of 03/30/2023) [facility] Narrative* Problem Noted [...] of this encounter (statuses as of 03/30/2023) [facility] Narrative* Problem Noted [...] of this encounter (statuses as of 04/05/2023) [facility]* Problem Noted [...] of this encounter (statuses as of 04/15/2023) [facility]* Problem Noted [...] of this encounter (statuses as of 04/30/2023) [facility]* Problem Noted [...] of this encounter (statuses as of 05/21/2023) [facility]* Problem Noted [...] of this encounter (statuses as of 05/21/2023) [facility]* Problem Noted [...] of this encounter (statuses as of 06/04/2023) [facility]* Problem Noted [...] of this encounter (statuses as of 06/04/2023) [facility]* Problem Noted [...] of this encounter (statuses as of 06/11/2023) [facility]* Problem Noted [...] of this encounter (statuses as of 06/16/2023) [facility]* Problem Noted [...] of this encounter (statuses as of 06/18/2023) [facility]* Problem Noted [...] of this encounter (statuses as of 06/22/2023) [facility]* Problem Noted [...] of this encounter (statuses as of 06/23/2023) [facility]* Problem Noted [...] of this encounter (statuses as of 06/25/2023) [facility]* Problem Noted [...] of this encounter (statuses as of 06/25/2023) [facility]* Problem Noted [...] of this encounter (statuses as of 07/04/2023) [facility]* Problem Noted [...] of this encounter (statuses as of 07/13/2023) [facility]* Problem Noted [...] of this encounter (statuses as of 07/28/2023) [facility] Narrative* Problem Noted [...] of this encounter (statuses as of 10/01/2023) [facility] Narr[facility]* Problem Noted [...] of this encounter (statuses as of 10/06/2023) [facility]arrative* Problem Noted [...] of this encounter (statuses as of 10/07/2023) [facility]* Problem Noted [...] of this encounter (statuses as of 10/08/2023) [facility]arr[facility]* Problem Noted [...] of this encounter (statuses as of 10/08/2023) [facility]arr[facility]* Problem Noted [...] of this encounter (statuses as of 10/13/2023) [facility]* Problem Noted [...] of this encounter (statuses as of 10/21/2023) [facility]arr[facility]* Problem Noted [...] of this encounter (statuses as of 10/27/2023) [facility] Narr[facility]* Problem Noted [...] of this encounter (statuses as of 11/19/2023) [facility] History of Past illness Narrative* Problem Noted [...] of this encounter (statuses as of 11/19/2023) [facility] History of Past illness Narrative* Problem Noted [...] of this encounter (statuses as of 12/02/2023) [facility] History of Past illness Narrative* Problem Noted [...] of this encounter (statuses as of 12/03/2023) [facility] History of Past illness Narrative* Problem Noted [...] of this encounter (statuses as of 12/09/2023) [facility] History of Past illness Narrative* Problem Noted [...] of this encounter (statuses as of 12/09/2023) [facility] History of Past illness Narrative* Problem Noted [...] of this encounter (statuses as of 12/09/2023) [place] [id number] History of Past illness Narrative* Problem Noted [...] of this encounter (statuses as of 12/17/2023) [place] [id number] History of Past illness Narrative* Problem Noted [...] of this encounter (statuses as of 12/17/2023) [facility] History of Past illness Narrative* Problem Noted [...] of this encounter (statuses as of 12/03/2023) [facility] Diagnosis Malignant neoplasm of endometrium (HCC) Malignant neoplasm of corpus uteri, except isthmus documented in this [facility] [place] [facility] Diagnosis History of uterine cancer Personal history of malignant neoplasm of other parts of uterus Endometrial cancer (HCC) Malignant neoplasm of corpus uteri, except isthmus Generalized abdominal pain Abdominal pain, generalized [facility] Malignant neoplasm of endometrium (HCC)- Primary Malignant neoplasm of corpus uteri, except isthmus Periaortic lymphadenopathy Enlargement of lymph nodes documented in this [facility] Diagnosis Primary open angle glaucoma (POAG) of right eye, severe stage- Primary Primary open angle glaucoma (POAG) of left eye, moderate stage Glaucomatous optic atrophy, bilateral Visual field loss Visual field defect, unspecified Stable central retinal vein occlusion of right eye Multiple sclerosis (HCC) Multiple sclerosis [facility] [place] [facility] Diagnosis Malignant neoplasm of endometrium (HCC) Malignant neoplasm of corpus uteri, except isthmus documented in this encounter [facility] [place] [facility] Diagnosis Malignant neoplasm of endometrium (HCC)- Primary Malignant neoplasm of corpus uteri, except isthmus Periaortic lymphadenopathy Enlargement of lymph nodes [facility]* Diagnosis Back problem- Primary Other unspecified back disorder Multiple sclerosis (HCC) Multiple sclerosis Balance problem Other symptoms involving nervous and musculoskeletal systems [facility] [place] [facility]* Diagnosis Frequent falls- Primary Personal history of fall Balance disorder Other symptoms involving nervous and musculoskeletal systems Ambulatory dysfunction Difficulty in walking Chronic deep vein thrombosis (DVT) of proximal vein of left lower extremity (HCC) Multiple sclerosis (HCC) Multiple sclerosis [facility] Diagnosis Malignant neoplasm of endometrium (HCC)- Primary Malignant neoplasm of corpus uteri, except isthmus Periaortic lymphadenopathy Enlargement of lymph nodes Dysuria [facility] Diagnosis Encounter for monitoring chronic NSAID therapy- Primary Encounter for therapeutic drug monitoring Hypokalemia Hypopotassemia Mixed hyperlipidemia Vitamin D deficiency Unspecified vitamin D deficiency Hypothyroidism, unspecified type Recurrent UTI Urinary tract infection, site not specified Depression, unspecified depression type Insomnia, unspecified type documented in this [facility] [place] [facility] Diagnosis Malignant neoplasm of endometrium (HCC) Malignant neoplasm of corpus uteri, except isthmus [facility] Diagnosis Mixed hyperlipidemia Encounter for monitoring chronic NSAID therapy Encounter for therapeutic drug monitoring Recurrent UTI Urinary tract infection, site not specified Vitamin D deficiency Unspecified vitamin D deficiency Hypothyroidism, unspecified type Hypokalemia Hypopotassemia documented in this [facility] [place] [facility] Diagnosis Malignant neoplasm of endometrium (HCC)- Primary Malignant neoplasm of corpus uteri, except isthmus documented in this encounter [facility] [place] [facility]* Diagnosis Acute cystitis without hematuria- Primary Acute cystitis [facility] [place] [facility] Diagnosis Malignant neoplasm of endometrium (HCC)- Primary Malignant neoplasm of corpus uteri, except isthmus [facility] [place] [facility]* Diagnosis Acute cystitis without hematuria- Primary Acute cystitis Chronic UTI Urinary tract infection, site not specified Screening for genitourinary condition Screening for other and unspecified genitourinary condition documented [facility] [place] [facility]* Diagnosis Malignant neoplasm of endometrium (HCC)- Primary Malignant neoplasm of corpus uteri, except isthmus Periaortic lymphadenopathy Enlargement of lymph nodes S/P radiation therapy Convalescence following radiotherapy [facility] [place] [facility]* Diagnosis Dysuria- Primary Recurrent UTI (urinary tract infection) Urinary tract infection, site not specified [facility] [place] [facility]* Diagnosis Positional lightheadedness- Primary Dizziness and giddiness Diarrhea, unspecified type Recurrent UTI Urinary tract infection, site not specified [facility] [place] [facility]* Diagnosis Optic atrophy, right eye- Primary Optic atrophy, unspecified Primary open angle glaucoma (POAG) of right eye, severe stage Primary open angle glaucoma (POAG) of left eye, moderate stage Visual field loss Visual field defect, unspecified Multiple sclerosis (HCC) Multiple sclerosis [facility] [place] [facility]* Diagnosis Endometrial cancer (HCC)- Primary Malignant neoplasm of corpus uteri, except isthmus [facility] [place] [facility]* Diagnosis Diarrhea, unspecified type- Primary Hypomagnesemia Disorders of magnesium metabolism Dizziness Dizziness and giddiness Endometrial cancer, grade I (HCC) documented in this [facility] [place] [facility]* Diagnosis Malignant neoplasm of endometrium (HCC)- Primary Malignant neoplasm of corpus uteri, except isthmus Periaortic lymphadenopathy Enlargement of lymph nodes S/P radiation therapy Convalescence following radiotherapy [facility] [place] [facility]* Diagnosis Malignant neoplasm of endometrium (HCC)- Primary Malignant neoplasm of corpus uteri, except isthmus Endometrial cancer (HCC) Malignant neoplasm of corpus uteri, except isthmus [facility] [place] [facility]* Diagnosis Depression, unspecified depression type Insomnia, unspecified type [facility] [place] [facility]* Diagnosis Hypomagnesemia- Primary Disorders of magnesium metabolism Hypothyroidism, unspecified type Vitamin D deficiency Unspecified vitamin D deficiency Vitamin B12 deficiency Other B-complex deficiencies Mixed hyperlipidemia [facility] [place] [facility]* Diagnosis Onset Date Resolution Status RY (acute kidney injury) ac [place] Anemia acute Debility acute Dehydration acute Generalized weakness acute Severe malnutrition acute Work Phone: Evaluation note* Diagnosis Recurrent UTI (urinary tract infection)- Primary Urinary tract infection, site not specified Recurrent acute confusion Delirium due to conditions classified elsewhere Rectal bleeding Hemorrhage of rectum and anus Acute bilateral low back pain without sciatica Excoriation of buttock, initial encounter Decreased rectal sphincter tone Other specified disorder of rectum and anus Chronic diarrhea Diarrhea [facility] [place] [facility]* Diagnosis Onset Date Resolution Status RY (acute kidney injury) ac [place] Anemia acute Debility acute Dehydration acute DVT (deep venous thrombosis) acute Generalized weakness acute Presence of IVC filter acute Severe malnutrition acute Work Phone: Evaluation note* Diagnosis Onset Date Resolution Status RY (acute kidney injury) [place] Anemia acute Debility acute Dehydration acute DVT (deep venous thrombosis) acute Generalized weakness acute Presence of IVC filter acute Severe malnutrition acute RY (acute kidney injury) [place] Anemia acute Anxiety acute Debility acute Dehydration acute Depression acute DVT (deep venous thrombosis) acute Generalized weakness acute Glaucoma acute Hyperlipidemia acute Multiple sclerosis acute Work Phone: Evaluation note* Diagnosis Onset Date [...] weakness acute Presence of IVC filter acute Work Phone: Evaluation note* Diagnosis Onset Date [...] thrombosis, lower right extremity resolved Weakness resolved Work Phone: Evaluation note* Diagnosis Onset Date [...] Weakness resolved DVT (deep venous thrombosis) acute Work Phone: Evaluation note* Diagnosis Depression, unspecified depression type Insomnia, unspecified type documented [facility]* Diagnosis Endometrial cancer (HCC) [C54.1 (ICD-10-CM)]- Primary Malignant neoplasm of corpus uteri, except isthmus Malignant neoplasm of endometrium (HCC) Malignant neoplasm of corpus uteri, except isthmus History of DVT of lower extremity Personal history of venous thrombosis and embolism documented in this encounter [facility]* Diagnosis Endometrial cancer (HCC)- Primary Malignant neoplasm of corpus uteri, except isthmus [facility] [place] [facility]* Diagnosis Encounter for screening mammogram for breast cancer documented in this encounter [facility]* Diagnosis Endometrial cancer (HCC) Malignant neoplasm of corpus uteri, except isthmus documented in this [facility]* Diagnosis Endometrial cancer (HCC)- Primary Malignant neoplasm of corpus uteri, except isthmus Encounter for monitoring cardiotoxic drug therapy Encounter for therapeutic drug monitoring Malignant neoplasm of endometrium (HCC)- Primary Malignant neoplasm of corpus uteri, except isthmus Recurrent cancer (HCC) documented in this encounter [facility]* Diagnosis Malignant neoplasm of endometrium (HCC)- Primary Malignant neoplasm of corpus uteri, except isthmus Recurrent cancer (HCC) Discoloration of skin of lower leg Dyschromia, unspecified Leg swelling Swelling of limb Severe malnutrition (HCC) Nutritional marasmus [facility] Diagnosis Malignant neoplasm of endometrium (HCC)- Primary Malignant neoplasm of corpus uteri, except isthmus [facility] noteNo assessment information [facility]WW[facility] Work Phone: Evaluation [facility]* Diagnosis Malignant neoplasm of uterus, unspecified site (HCC)- Primary documented [facility] this [facility] [place] [facility]* Diagnosis Endometrial cancer (HCC)- Primary Malignant neoplasm of corpus uteri, except isthmus History of uterine cancer Personal history of malignant neoplasm of other parts of uterus [facility]* Diagnosis Malignant neoplasm of uterus, unspecified site (HCC)- Primary [facility]* Diagnosis Malignant neoplasm of uterus, unspecified site (HCC)- Primary [facility] [place] [facility]* Diagnosis Acute right-sided low back pain without sciatica- Primary Malignant neoplasm of uterus, unspecified site (HCC) Acute pain of right shoulder [facility] [place] [facility]* Diagnosis Malignant neoplasm of endometrium (HCC) Malignant neoplasm of corpus uteri, except isthmus [facility]* Diagnosis Endometrial cancer (HCC)- Primary Malignant neoplasm of corpus uteri, except isthmus [facility] Diagnosis Malignant neoplasm of endometrium (HCC)- Primary Malignant neoplasm of corpus uteri, except isthmus [facility]* Diagnosis Endometrial cancer (HCC) Malignant neoplasm of corpus uteri, except isthmus Acquired hypothyroidism Unspecified hypothyroidism [facility]* Diagnosis Malignant neoplasm of uterus, unspecified site (HCC)- Primary [facility]* Diagnosis Malignant neoplasm of uterus, unspecified site (HCC)- Primary Chronic deep vein thrombosis (DVT) of proximal vein of left lower extremity (HCC) Malaise and fatigue Other malaise and fatigue [facility]* Diagnosis Onset Date Resolution Status Acute dehydration acute Cancer, uterine acute Declining functional status acute Falls frequently acute Multiple sclerosis acute Weakness acute Work Phone: Evaluation note* Diagnosis Discoloration of skin of lower leg Dyschromia, unspecified Leg swelling Swelling of limb documented [facility] this [facility] [place] [facility]* Diagnosis Onset Date Resolution Status Declining functional status acute Falls frequently acute Weakness acute Acute dehydration resolved Appetite loss acute Debility acute Depression acute Falls frequently acute Glaucoma acute Hypokalemia acute Hypothyroidism acute Recurrent deep vein thrombosis (DVT) acute Recurrent urinary tract infection acute Weakness acute Dehydration resolved Work Phone: Evaluation note* Diagnosis Cystitis- Primary Cystitis, unspecified Microscopic hematuria Detrusor overactivity Constipation, unspecified constipation type [facility] [place] [facility]* Diagnosis Malignant neoplasm of uterus, unspecified site (HCC)- Primary Severe malnutrition (HCC) Nutritional marasmus documented [facility] [place] [facility]* Diagnosis Detrusor overactivity- Primary documented in this encounter [facility]* Diagnosis Radiation cystitis- Primary Irradiation cystitis OAB (overactive bladder) [N32.81] Hypertonicity of bladder Lesion of bladder Unspecified disorder of bladder [facility] [place] [facility]* Diagnosis Urge urinary incontinence- Primary Urge incontinence Urinary urgency Urgency of urination documented [facility] [place] [facility]* Diagnosis Palliative care encounter- Primary documented in this encounter [facility] Work Phone: Evaluation note* Diagnosis Radiation cystitis- Primary Irradiation cystitis OAB (overactive bladder) [N32.81] 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 * Assessment & Plan Note - Kelley Stone APRN.CNP - 12/28/2023 3:28 PM EDT Associated Problem(s): History of pulmonary embolism Assessment: H/O PE in 2019 s/p IVC filter. Going through chemotherapy at the time. Currently on Xarelto, following with palliative care/PCP, Dr. Terry Esipno. * Assessment & Plan Note - Kelley [...] no current Rx. 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 Diagnosis UTI symptoms- Primary Other symptoms involving urinary system documented [facility] Diagnosis Palliative care encounter- Primary documented in this encounter [facility] Work Phone: Evaluation note* Diagnosis Dysuria- Primary Acute cystitis with hematuria documented in this encounter [facility] Work Phone: Evaluation note* Diagnosis Urinary tract infection with hematuria, site unspecified- Primary Constipation, unspecified constipation type Dizziness Dizziness and giddiness documented in this encounter [facility] Work Phone: Evaluation note* Diagnosis Bronchitis after surgery- Primary Acute cough documented in this encounter [facility] Work Phone: Evaluation note* Diagnosis Acute bronchitis, unspecified organism- Primary Acute cough documented in this encounter [facility] Work Phone: Evaluation note* Diagnosis Urinary tract infection with hematuria, site unspecified- Primary documented in this encounter [facility] Work Phone: History of Present illness [...] of motion/joint mobility, sensory, strength and transfers. [facility] of Present illness Narrative* Good form and tolerance to ex's performed today without significant pain increase. Pt needs close supervision/assist with standing balance/activity. Pt walks with very slow zaki and shorter steps. * Response to treatment: improved strength and improved balance. * Patient was able to complete today's treatment with some difficulty. [facility] Work Phone: History of Present illness [...] Response to treatment: no change in pain. [facility] Work Phone: history of Present illness Narrative* Good form and tolerance to ex's performed today without significant pain increase. * Response to treatment: improved strength. * Patient was able to complete today's treatment with some difficulty. [facility] Work Phone: history of Present illness Narrative* [...] to complete today's treatment with some difficulty. [facility] Work Phone: history of Present illness NarrativePatient [...] back pain at end of treatment. [facility] Work Phone: History of Present [...] use of UE with balance exercises. [facility] Work Phone: History of Present [...] with standing ex's and NMR activities. [facility] Work Phone: Hospital Discharge instructions Additional Instructions Discharge home alone 09/19/2022, Home Health Care PT/OT/ST/GRACE. Work Phone: Hospital Discharge instructions* Attachments The following attachments cannot be sent through Care Everywhere. * Acute bronchitis (Cypriot) * Cough in adults (Cypriot) [facility] Discharge [facility]* Attachments The following attachments cannot be sent through Care Everywhere. * Urinary Tract Infection, Adult ED (Cypriot) [facility] Work [facility]: Reason for referral (narrative)* Diagnostic Procedure Only (Routine) - Closed Specialty Diagnoses / Procedures Referred By Antony t Referred To Contact MOLECULAR & FUNCTIONAL IMAGING Diagnoses History of uterine cancer Endometrial cancer (HCC) Generalized abdominal pain Procedures NM PET/CT SKULL-THIGH SUBSEQUENT PET IMAGING CT ATTENUATION SKULL BASE MID-THIGH Racheal Saldana APRN.CNP [address] [place] [address] Molecular & Functional Imaging [address] [place], [place] [id number] Referral ID Status Reason Start Date Expiration Date V isits Requested Visits Authorized [id number] Closed Auto-Generate d Referral 11/21/2021 12/21/2022 1 1 [facility] for referral (narrative)* Diagnostic Procedure Only (Routine) - Pending Review Specialty Diagnoses / Procedures Referred By Contac t Referred To Contact MOLECULAR & FUNCTIONAL IMAGING Diagnoses Malignant neoplasm of endometrium (HCC) Procedures NM PET/CT SKULL-THIGH SUBSEQUENT PET IMAGING CT ATTENUATION SKULL BASE MID-THIGH Racheal Saldana APRN.CNP [address] [place] [id number] Molecular [facility] Functional Imaging [address] [place], [place] [id number] Referral ID Status Reason Start Date Expiration Date Visits Requested Visits Authorized [id number] Pending Review Auto-Generat ed Referral 03/26/2022 04/25/2023 1 1 [facility] for referral (narrative)* Diagnostic Procedure Only (Routine) - Pending Review Specialty Diagnoses / Procedures Referred By Contac t Referred To Contact MOLECULAR & FUNCTIONAL IMAGING Diagnoses Malignant neoplasm of endometrium (HCC) Procedures NM PET/CT SKULL-THIGH INITIAL PET IMAGING CT ATTENUATION SKULL BASE MID-THIGH Naila Youngblood MD [address] [place] [address] Molecular & Functional Imaging [address] [place], [place] [id number] Referral ID Status Reason Start Date Expiration Date Visits Requested Visits Authorized [id number] Pending Review Auto-Generat ed Referral 05/04/2022 06/03/2023 1 1 [facility] for referral (narrative)* Diagnostic Procedure Only (Routine) - Pending Review Specialty Diagnoses / Procedures Referred By Contac t Referred To Contact MOLECULAR & FUNCTIONAL IMAGING Diagnoses Malignant neoplasm of endometrium (HCC) Procedures NM PET/CT SKULL-THIGH SUBSEQUENT PET IMAGING CT ATTENUATION SKULL BASE MID-THIGH Racheal Saldana APRN.CNP [address] [place] [address] Molecular & Functional Imaging [address] [place], [place] [id number] Referral ID Status Reason Start Date Expiration Date Visits Requested Visits Authorized [id number] [facility]/19/2022 07/19/2023 1 1 T [facility] for referral (narrative)* Diagnostic Procedure Only (Routine) - Pending Review Specialty Diagnoses / Procedures Referred By Contac t Referred To Contact MOLECULAR & FUNCTIONAL IMAGING Diagnoses Endometrial cancer (HCC) Procedures NM PET/CT SKULL-THIGH SUBSEQUENT PET IMAGING CT ATTENUATION SKULL BASE MID-THIGH Racheal Saldana APRN.CNP [address] [place] [address] Molecular & Functional Imaging [address] [place], [place] [id number] Referral ID Status Reason Start Date Expiration Date Visits Requested Visits Authorized [id number] [facility]/29/2022 12/29/2023 1 1 [facility] for referral (narrative)* Diagnostic Procedure Only (Routine) - Pending Review Specialty Diagnoses / Procedures Referred By Contac t Referred To Contact BR IMAGING Diagnoses Encounter for screening mammogram for breast cancer Procedures NILSA SCREENING SCREENING MAMMOGRAPHY BI 2-VIEW BREAST INC Rosmery Harley MD [address] [place] [address] Br Imaging [address] [place] [address] Referral ID Status Reason Start Date Expiration Date Visits Requested Visits Authorized [id number] Pending Review Auto-Generat ed Referral 12/02/2022 01/01/2024 1 1 [facility] for referral (narrative)* Diagnostic Procedure Only (Routine) - Closed Specialty Diagnoses / Procedures [facility] Referred To Contact MOLECULAR & FUNCTIONAL IMAGING Diagnoses Endometrial cancer (HCC) Procedures NM PET/CT SKULL-THIGH SUBSEQUENT PET IMAGING CT ATTENUATION SKULL BASE MID-THIGH Racheal Saldana, DYNAMITE RECLAIMER.TUFTING MACHINE FIXER [address] [place] [address] Molecular & Functional Imaging [address] [place] [address] Referral ID Status Reason Start Date Expiration Date V isits Requested Visits Authorized [id number] Closed Auto-Generate d Referral 11/29/2022 12/29/2023 1 1 [facility] for referral (narrative)* Outpatient Procedure (Routine) - Authorized Specialty Diagnoses / Procedures Referred By [facility] Referred To Contact [facility] Diagnoses Endometrial cancer (HCC) Encounter for monitoring cardiotoxic drug therapy Procedures ECHO ECHO TTHRC R-T 2D W/WOM-MODE COMPL SPEC&[place] [address] [place] [address] [facility] [place] [address] [place] [address] Referral ID Status Reason Start Date Expiration Date Visits Requested Visits Authorized [id number] Authorized Auto-Generat ed Referral 02/25/2023 02/25/2024 1 1 [facility] for referral (narrative)* Diagnostic Procedure Only (Routine) - Authorized Specialty Diagnoses / Procedures Referred By Contac t Referred To Contact US IMAGING Diagnoses Discoloration of skin of lower leg Leg swelling Procedures US DVT LOWER LEFT DUP-SCAN XTR VEINS UNILATERAL/LIMITED STUDY Domenic Cramer, DYNAMITE RECLAIMER.TUFTING MACHINE FIXER [address] [place] [address] Us Imaging Referral ID Status Reason Start Date Expiration Date Visits Requested Visits Authorized [id number] Authorized Auto-Generat ed Referral 02/26/2023 03/27/2024 1 1 [facility] for referral (narrative)* Diagnostic Procedure Only (Routine) - Pending Review Specialty Diagnoses / Procedures Referred By Contac t Referred To Contact MOLECULAR & FUNCTIONAL IMAGING Diagnoses Malignant neoplasm of endometrium (HCC) Procedures NM PET/CT SKULL-THIGH SUBSEQUENT PET IMAGING CT ATTENUATION SKULL BASE MID-THIGH Racheal Saldana DYNAMITE RECLAIMER.TUFTING MACHINE FIXER [address] [place] [address] Molecular & Functional Imaging [address] [place] [phone] Referral ID Status Reason Start Date Expiration Date Visits Requested Visits Authorized [id number] Pending Review Auto-Generat ed Referral 03/03/2023 04/01/2024 1 1 [facility] for referral (narrative)* Diagnostic Procedure Only (Routine) - Closed Specialty Diagnoses / Procedures Referred By Contac t Referred To Contact MOLECULAR & FUNCTIONAL IMAGING Diagnoses Malignant neoplasm of endometrium (HCC) Procedures NM PET/CT SKULL-THIGH SUBSEQUENT PET IMAGING CT ATTENUATION SKULL BASE MID-THIGH Racheal Saldana DYNAMITE RECLAIMER.TUFTING MACHINE FIXER [address] [place] [address] Molecular & Functional Imaging [address] [place] [phone] Referral ID Status Reason Start Date Expiration Date V isits Requested Visits Authorized [id number] Closed Auto-Generate d Referral 03/03/2023 04/01/2024 1 1 [facility] for referral (narrative)* Diagnostic Procedure Only (Routine) - Closed Specialty Diagnoses / Procedures Referred By Antony francis Referred To Contact US IMAGING Diagnoses Discoloration of skin of lower leg Leg swelling Procedures US DVT LOWER LEFT DUP-SCAN XTR VEINS UNILATERAL/LIMITED STUDY Domenic Cramer APRN.TUFTING MACHINE FIXER [address] [place] [address] [place] [address] Referral ID Status Reason Start Date Expiration Date V isits Requested Visits Authorized [id number] Closed Auto-Generate d Referral 02/26/2023 03/27/2024 1 1 [facility] for referral (narrative)* Consultation (Routine) - Authorized Specialty Diagnoses / Procedures Referred By Antony francis Referred To Contact Family Medicine / Primary Care Diagnoses Urinary tract infection with hematuria, site unspecified Bahman Ann, [address] [place] [address] Department [place] [address] Referral ID Status Reason Start Date Expiration Date Visits Requested Visits Authorized [id number] Authorized Specialty Services Required 02/25/2024 02/24/2025 1 1 [facility] Work Phone: Reason for visit Narrative* Initial Evaluation . balance disorder, ambulatory dysfunction. * Referred by: [facility] Work Phone: Reason for visit Narrative* Diagnostic Procedure Only (Routine) - Closed Specialty Diagnoses / Procedures Referred By Antony francis Referred To Contact MOLECULAR & FUNCTIONAL IMAGING Diagnoses History of uterine cancer Endometrial cancer (HCC) Generalized abdominal pain Procedures NM PET/CT SKULL-THIGH SUBSEQUENT PET IMAGING CT ATTENUATION SKULL BASE MID-THIGH Racheal Saldana APRN.TUFTING MACHINE FIXER [address] [place] [address] Molecular & Functional Imaging [address] [place] [phone] Referral ID Status Reason Start Date Expiration Date V isits Requested Visits Authorized [id number] Closed Auto-Generate d Referral 11/21/2021 12/21/2022 1 1 [facility] for visit Narrative* Diagnostic Procedure Only (Routine) - Closed Specialty Diagnoses / Procedures Referred By Contac t Referred To Contact MOLECULAR & FUNCTIONAL IMAGING Diagnoses Malignant neoplasm of endometrium (HCC) Procedures NM PET/CT SKULL-THIGH INITIAL PET IMAGING CT ATTENUATION SKULL BASE MID-THIGH Naila Youngblood MD [address] [place] [address] Molecular & Functional Imaging [address] [place] [address] Referral ID Status Reason Start Date Expiration Date V isits Requested Visits Authorized [id number] Closed Auto-Generate d Referral 05/04/2022 06/03/2023 1 1 [facility] for visit Narrative* Diagnostic Procedure Only (Routine) - Closed Specialty Diagnoses / Procedures Referred By Antony t Referred To Contact MOLECULAR & FUNCTIONAL IMAGING Diagnoses Endometrial cancer (HCC) Procedures NM PET/CT SKULL-THIGH SUBSEQUENT PET IMAGING CT ATTENUATION SKULL BASE MID-THIGH Racheal Saldana, DYNAMITE RECLAIMER.TUFTING MACHINE FIXER [address] [place] [phone] Molecular & Functional Imaging [address] [place] [address] Referral ID Status Reason Start Date Expiration Date V isits Requested Visits Authorized [id number] Closed Auto-Generate d Referral 11/29/2022 12/29/2023 1 1 [facility] for visit Narrative* Diagnostic Procedure Only (Routine) - Closed Specialty Diagnoses / Procedures Referred By Contac t Referred To Contact MOLECULAR & FUNCTIONAL IMAGING Diagnoses Malignant neoplasm of endometrium (HCC) Procedures NM PET/CT SKULL-THIGH SUBSEQUENT PET IMAGING CT ATTENUATION SKULL BASE MID-THIGH Racheal Saldana, DYNAMITE RECLAIMER.TUFTING MACHINE FIXER [address] [place] [phone] Molecular & Functional Imaging [address] [place] [phone] Referral ID Status Reason Start Date Expiration Date V isits Requested Visits Authorized [id number] Closed Auto-Generate d Referral 03/03/2023 04/01/2024 1 1 [facility] for visit Narrative* Diagnostic Procedure Only (Routine) - Closed Specialty Diagnoses / Procedures Referred By Contac t Referred To Contact MOLECULAR & FUNCTIONAL IMAGING Diagnoses Malignant neoplasm of uterus, unspecified site (HCC) Procedures NM PET/CT SKULL-THIGH SUBSEQUENT PET IMAGING CT ATTENUATION SKULL BASE MID-THIGH Malathi Roberts MD [address] [place] [address] Molecular & Functional Imaging [address] [place] [address] Referral ID Status Reason Start Date Expiration Date V isits Requested Visits Authorized [id number] Closed Auto-Generate d Referral 09/13/2023 10/12/2024 [address] [facility] Summary Purpose Family History No Family History [...] FoundDocuments on File Type Date Recorded Patient County Auditor Expl anation Advance Directives and Living Will Power of Capital Project Engineer Documents on File Type Date Recorded Patient County Auditor Expl anation Advance Directive(s) Advance Directive(s) 04/11/2021 8:02 AM Advance Directive(s) 11/06/2020 8:41 AM Advance Directive(s) 08/17/2018 12:34 PM Advance Directive(s) 09/14/2014 9:00 PM Advance Directive(s) 09/12/2014 6:54 AM Documents on File Type Date Recorded Patient County Auditor Expl anation Advance Directive(s) Advance Directive(s) 04/11/2021 8:02 AM Advance Directive(s) 11/06/2020 8:41 AM Advance Directive(s) 08/17/2018 12:34 PM Advance Directive(s) 09/14/2014 9:00 PM Advance Directive(s) 09/12/2014 6:54 AM Documents on File Type Date Recorded Patient County Auditor Expl anation Advance Directive(s) 09/14/2014 9:00 PM Advance Directive(s) 09/12/2014 6:54 AM Documents on File Type Date Recorded Patient County Auditor Expl anation Advance Directive(s) 09/14/2014 9:00 PM Advance Directive(s) 09/12/2014 6:54 AM Advance Directive Response Recorded Date/ Time Living Will Yes August 31 6:24pm Power of Capital Project Engineer Yes August 31 2 023 6:24pm Name of Medical Power of Capital Project Engineer Min Kennedy August 31, 2022 6:24pm Advance Directive Response Recorded Date/ Time Name of Medical Power of Capital Project Engineer Min Kennedy August 31, 2022 6:24pm Living Will Yes August 31 6:24pm Power of Capital Project Engineer Yes August 31 2 023 6:24pm Advance Directive Response Recorded Date/ Time Name of Medical Power of Capital Project Engineer Min Kennedy August 31, 2022 6:24pm Name of Medical Power of Capital Project Engineer Min Brent, son September 04, 2022 3:21pm Living Will Yes September 04 3:21pm Power of Capital Project Engineer Yes September 04 2 023 3:21pm Advance Directive Response Recorded Date/ Time Name of Medical Power of Capital Project Engineer Min Kennedy August 31, 2022 6:24pm Name of Medical Power of Capital Project Engineer Min Brent, rené September 04, 2022 3:21pm Name of Medical Power of Capital Project Engineer Min Kennedy, Rivera Noep September 07, 2022 8:19pm Living Will Yes September 07 8:19pm Power of Capital Project Engineer Yes September 07, 2 023 8:19pm Advance Directive Response Recorded Date/ Time Name of Medical Power of Capital Project Engineer Min Kennedy August 31, 2022 6:24pm Name of Medical Power of Capital Project Engineer Min Brent, son September 04, 2022 3:21pm Name of Medical Power of Capital Project Engineer Minmaribel Kennedy, Rivera Kennedy September 07, 2022 8:19pm Name of Medical Power of Capital Project Engineer Min Kennedy, rené September 14, 2022 4:17pm Living Will Yes September 14 4:17pm Power of Capital Project Engineer Yes September 14, 2022 4:17pm Advance Directive Response Recorded Date/ Time Living Will No March 12, 2023 3:11pm Power of Capital Project Engineer No March 12 3:11pm Advance Directive Response Recorded Date/ Time Name of Medical Power of Capital Project Engineer Min June 26, 2023 9:28pm Living Will Yes June 26 9:28pm Power of Capital Project Engineer Yes June 26, 2023 9:28pm Advance Directive Response Recorded Date/ Time Name of Medical Power of Capital Project Engineer Min June 27, 2023 12:34am Living Will Yes June 27 12:34am Power of Capital Project Engineer Yes June 27, 2023 12:34am Advance Directive Response Recorded Date/ Time Name of Medical Power of Capital Project Engineer Min and nina Osorio June 30, 2023 11:14am Living Will Yes June 30 11:14am Power of Capital Project Engineer Yes June 30, 2023 11:14am Name of Medical Power of Capital Project Engineer Min June 26, 2023 11:34pm Reason for Referral Specialty Diagnoses / Procedures Referred By Contac t Referred To Contact CT IMAGING Diagnoses Malignant neoplasm of endometrium (HCC) Procedures CT CHEST W IVCON CAT SCAN OF CHEST CONTRAST Mahsa Atkinson, HOLLY.TUFTING MACHINE FIXER [address] [place] [address] Ct Imaging Referral ID Status Reason Start Date Expiration Date V isits Requested Visits Authorized [id number] Closed Auto-Generate d Referral 06/12/2021 07/12/2022 1 1 Specialty Diagnoses / Procedures Referred By Contac t Referred To Contact CT IMAGING Diagnoses Malignant neoplasm of endometrium (HCC) Procedures CT ABD/PEL W IVCON CT ABD & PELVIS W/CONTRAST Mahsa Atkinson APRN.TUFTING MACHINE FIXER [address] [place] [address] Ct Imaging Referral ID Status Reason Start Date Expiration Date V isits Requested Visits Authorized [id number] Closed Auto-Generate d Referral 06/12/2021 07/12/2022 1 1 Specialty Diagnoses / Procedures Referred By Contac t Referred To Contact Radiation Oncology Diagnoses Malignant neoplasm of endometrium (HCC) Procedures RAD/ONC CONSULT OFFICE/OUTPATIENT [facility] 60-74 MINUTES Racheal Saldana, DYNAMITE RECLAIMER.TUFTING MACHINE FIXER [address] [place] [phone] Referral ID Status Reason Start Date Expiration Date Visits Requested Visits Authorized [id number] Pending Review PCP Requested Referral 01/01/2022 01/01/2023 1 1 Specialty Diagnoses / Procedures Referred By Contac t Referred To Contact Urology Diagnoses Recurrent UTI Procedures CONSULT TO UROLOGY OFFICE/OUTPATIENT [facility] 60-74 MINUTES Rosmery Horn MD [address] [place] [address] Referral ID Status Reason Start Date Expiration Date Visits Requested Visits Authorized [id number] Pending Review PCP Requested Referral 01/30/2022 01/30/2023 1 1 Specialty Diagnoses / Procedures Referred By Contac t Referred To Contact Diagnoses Malignant neoplasm of uterus, unspecified site (HCC) Procedures CONSULT [place] [address] [place] [address] Referral ID Status Reason Start Date Expiration Date Visits Requested Visits Authorized [id number] Ref Not Required PCP Requested Referral 03/29/2023 03/28/2024 1 1 Specialty Diagnoses / Procedures Referred By Contac t Referred To Contact Diagnoses Radiation cystitis OAB (overactive bladder) Procedures REFER TO [facility] - PRE ANESTHESIA CONSULTATION CLINIC OFFICE/OUTPATIENT [facility] MDM 60 MINUTES Franklin Salmon MD [address] [facility] [address] [place] [address] Referral ID Status Reason Start Date Expiration Date Visits Requested Visits Authorized [id number] Authorized PCP Requested Referral 11/19/2023 11/18/2024 1 [...] the event of a Fluress shortage, administer Sisters-Fluor 1 drop into both eyes as directed [...] section and content) DATE CREATED AUTHOR 08/22/2018 [facility] DATE CREATED AUTHOR AUTHOR'S ORGANIZ ATION 12/15/2018 [facility] DATE CREATED AUTHOR AUTHOR'S ORGANIZ ATION 05/13/2019 [facility] DATE CREATED AUTHOR AUTHOR'S ORGANIZ ATION 04/27/2022 [facility] DATE CREATED AUTHOR AUTHOR'S ORGANIZ ATION 04/05/2023 [facility] DATE CREATED AUTHOR AUTHOR'S ORGANIZ ATION 04/17/2023 [facility] DATE CREATED AUTHOR AUTHOR'S ORGANIZ ATION 01/13/2024 [facility] DATE CREATED AUTHOR AUTHOR'S ORGANIZ ATION 02/10/2024 [facility] DATE CREATED AUTHOR AUTHOR'S ORGANIZ ATION 02/27/2024 [facility] DATE CREATED AUTHOR AUTHOR'S ORGANIZ ATION 03/16/2024 [facility] DATE CREATED AUTHOR AUTHOR'S ORGANIZ ATION 04/19/2024 [facility] DATE CREATED AUTHOR AUTHOR'S ORGANIZ ATION 11/01/2024 [facility] DATE CREATED AUTHOR AUTHOR'S ORGANIZ ATION 02/20/2025 [facility] DATE CREATED AUTHOR AUTHOR'S ORGANIZ ATION 03/03/2025 [facility] Reason for Visit (unrecogniz ed section and content) Reason Comments Consult Specialty Diagnoses / Procedures Referred By Contac t Referred To Contact Diagnoses Radiation cystitis OAB (overactive bladder) Procedures REFER TO [facility] - PRE ANESTHESIA CONSULTATION CLINIC OFFICE/[facility]IENT [facility] MDM 60 MINUTES Franklin Salmon MD [address] [address] Referral ID Status Reason Start Date Expiration Date V isits Requested Visits Authorized [id number] Closed PCP Requested Referral 11/19/2023 11/18/2024 1 1 Specialty Diagnoses / Procedures Referred By Contac t Referred To Contact Urology Diagnoses Recurrent UTI Procedures CONSULT TO UROLOGY OFFICE/OUTPATIENT [facility] 60-74 MINUTES Rosmery Horn MD [address] [place] [address] Referral ID Status Reason Start Date Expiration Date Visits Requested Visits Authorized [id number] Pending Review PCP Requested Referral 01/30/2022 01/30/2023 1 1 Reason Comments Cancer Specialty Diagnoses / Procedures Referred By Contac t Referred To Contact Radiation Oncology Diagnoses Malignant neoplasm of endometrium (HCC) Procedures RAD/ONC CONSULT OFFICE/OUTPATIENT [facility] 60-74 MINUTES Racheal Saldana, DYNAMITE RECLAIMER.TUFTING MACHINE FIXER [address] [place] [address] Referral ID Status Reason Start Date Expiration Date Visits Requested Visits Authorized [id number] Pending Review PCP Requested Referral 01/23/2022 01/23/2023 [...] IVCON CAT SCAN OF CHEST CONTRAST lydiaMahsa hutchinsHOLLY.TUFTING MACHINE FIXER [address] [place] [address] Ct Imaging Referral ID Status Reason Start Date Expiration Date V isits Requested Visits Authorized [id number] Closed Auto-Generate d Referral 06/12/2021 07/12/2022 1 1 Reason Comments Follow Up Reason Comments Primary Open Angle Glaucoma Follow Up Pa tient here as directed for intraocular pressure check Both Eyes. Referral ID Status Reason Start Date Expiration Date Visits Requested Visits Authorized [id number] Pending Review PCP Requested Referral 01/01/2022 01/01/2023 [...] for coding 03/03 [employer] CPT lookup list [id number] No precert is required 03/03 [place]eluis [place] [address] [place] [address] [facility] [address] [place] [address] Referral ID Status Reason Start Date Expiration Date V isits Requested Visits Authorized [id number] Authorized 03/01/2023 08/29/2023 99 99 Reason Comments Appointment Patient Update Reason Comments Care Coordination POC Reason Comments Patient Update Patient Question Reason Comments Establish Care Reason Comments Pain Reason Comments Bit Grinder - Other Oral Chemothera py Medication (Lenvatinib) Reason Onset Date Comments SPP Oral Oncology/hematology - Treatment Referra l 06/03/2023 Lenvima 10mg/day Insurance Authorization 06/03/2023 Pending PA Submission Reason Comments Blood Draw (CVAD) Specialty Diagnoses / Procedures Referred By Contac t Referred To Contact Diagnoses Malignant neoplasm of uterus, unspecified site (HCC) Procedures INJ PEMBROLIZUMAB Domo Frazier, DO [address] [place] [address] [facility] [address] [place] [address] Referral ID Status Reason Start Date Expiration Date V isits Requested Visits Authorized [id number] Authorized 06/07/2023 12/07/2023 1 9 Reason Comments Bit Grinder - Other C1D1 Post Treat ment Call (Keytruda/Lenvatinib) Reason Comments Bit Grinder - Other Follow-up Reason Comments Fatigue Reason Comments Radiology US Specialty Diagnoses / Procedures Referred By Contac t Referred To Contact US IMAGING Diagnoses Discoloration of skin of lower leg Leg swelling Procedures US DVT LOWER LEFT DUP-SCAN XTR VEINS UNILATERAL/LIMITED STUDY Domenic Cramer, DYNAMITE RECLAIMER.TUFTING MACHINE FIXER [address] [place] [id number] [place] [address] Referral ID Status Reason Start Date Expiration Date V isits Requested Visits Authorized [id number] Closed Auto-Generate d Referral 02/26/2023 03/27/2024 1 [...] or prosecute any alcohol or drug abuse patient.[facility] the event this information is protected by the Federal Confidentiality of Alcohol and Drug Abuse Patient Records regulations: The Federal rules restrict any use of the information to criminally investigate or prosecute any alcohol or drug abuse patient.[facility] the event this information is protected by the Federal Confidentiality of Alcohol and Drug Abuse Patient Records regulations: The Federal rules restrict any use of the information to criminally investigate or prosecute any alcohol or drug abuse patient.[facility] the event this information is protected by the Federal Confidentiality of Alcohol and Drug Abuse Patient Records regulations: The Federal rules restrict any use of the information to criminally investigate or prosecute any alcohol or drug abuse patient.[facility] the event this information is protected by the Federal Confidentiality of Alcohol and Drug Abuse Patient Records regulations: The Federal rules restrict any use of the information to criminally investigate or prosecute any alcohol or drug abuse patient.[facility] the event this information is protected by the Federal Confidentiality of Alcohol and Drug Abuse Patient Records regulations: The Federal rules restrict any use of the information to criminally investigate or prosecute any alcohol or drug abuse patient.[facility] the event this information is protected by the Federal Confidentiality of Alcohol and Drug Abuse Patient Records regulations: The Federal rules restrict any use of the information to criminally investigate or prosecute any alcohol or drug abuse patient.[facility] the event this information is protected by the Federal Confidentiality of Alcohol and Drug Abuse Patient Records regulations: The Federal rules restrict any use of the information to criminally investigate or prosecute any alcohol or drug abuse patient.[facility] the event this information is protected by the Federal Confidentiality of Alcohol and Drug Abuse Patient Records regulations: The Federal rules restrict any use of the information to criminally investigate or prosecute any alcohol or drug abuse patient.[facility] the event this information is protected by the Federal Confidentiality of Alcohol and Drug Abuse Patient Records regulations: The Federal rules restrict any use of the information to criminally investigate or prosecute any alcohol or drug abuse patient.[facility] the event this information is protected by the Federal Confidentiality of Alcohol and Drug Abuse Patient Records regulations: The Federal rules restrict any use of the information to criminally investigate or prosecute any alcohol or drug abuse patient.[facility] the event this information is protected by the Federal Confidentiality of Alcohol and Drug Abuse Patient Records regulations: The Federal rules restrict any use of the information to criminally investigate or prosecute any alcohol or drug abuse patient.[facility] the event this information is protected by the Federal Confidentiality of Alcohol and Drug Abuse Patient Records regulations: The Federal rules restrict any use of the information to criminally investigate or prosecute any alcohol or drug abuse patient.[facility] the event this information is protected by the Federal Confidentiality of Alcohol and Drug Abuse Patient Records regulations: The Federal rules restrict any use of the information to criminally investigate or prosecute any alcohol or drug abuse patient.[facility] [facility]In the event this information is protected by the Federal Confidentiality of Alcohol and Drug Abuse Patient Records regulations: The Federal rules restrict any use of the information to criminally investigate or prosecute any alcohol or drug abuse patient.[facility]In the event this information is protected by the Federal Confidentiality of Alcohol and Drug Abuse Patient Records regulations: The Federal rules restrict any use of the information to criminally investigate or prosecute any alcohol or drug abuse patient.[facility]In the event this information is protected by the Federal Confidentiality of Alcohol and Drug Abuse Patient Records regulations: The Federal rules restrict any use of the information to criminally investigate or prosecute any alcohol or drug abuse patient.[facility] HospitalIn the event this information is protected by the Federal Confidentiality of Alcohol and Drug Abuse Patient Records regulations: The Federal rules restrict any use of the information to criminally investigate or prosecute any alcohol or drug abuse patient.[facility]In the event this information is protected by the Federal Confidentiality of Alcohol and Drug Abuse Patient Records regulations: The Federal rules restrict any use of the information to criminally investigate or prosecute any alcohol or drug abuse patient.[facility] HospitalIn the event this information is protected by the Federal Confidentiality of Alcohol and Drug Abuse Patient Records regulations: The Federal rules restrict any use of the information to criminally investigate or prosecute any alcohol or drug abuse patient.[facility]In the event this information is protected by the Federal Confidentiality of Alcohol and Drug Abuse Patient Records regulations: The Federal rules restrict any use of the information to criminally investigate or prosecute any alcohol or drug abuse patient.[facility] HospitalIn the event this information is protected by the Federal Confidentiality of Alcohol and Drug Abuse Patient Records regulations: The Federal rules restrict any use of the information to criminally investigate or prosecute any alcohol or drug abuse patient.[facility] HospitalIn the event this information is protected by the Federal Confidentiality of Alcohol and Drug Abuse Patient Records regulations: The Federal rules restrict any use of the information to criminally investigate or prosecute any alcohol or drug abuse patient.[facility] HospitalIn the event this information is protected by the Federal Confidentiality of Alcohol and Drug Abuse Patient Records regulations: The Federal rules restrict any use of the information to criminally investigate or prosecute any alcohol or drug abuse patient.[facility] HospitalIn the event this information is protected by the Federal Confidentiality of Alcohol and Drug Abuse Patient Records regulations: The Federal rules restrict any use of the information to criminally investigate or prosecute any alcohol or drug abuse patient.[facility] HospitalIn the event this information is protected by the Federal Confidentiality of Alcohol and Drug Abuse Patient Records regulations: The Federal rules restrict any use of the information to criminally investigate or prosecute any alcohol or drug abuse patient.[facility] HospitalIn the event this information is protected by the Federal Confidentiality of Alcohol and Drug Abuse Patient Records regulations: The Federal rules restrict any use of the information to criminally investigate or prosecute any alcohol or drug abuse patient.[facility] HospitalIn the event this information is protected by the Federal Confidentiality of Alcohol and Drug Abuse Patient Records regulations: The Federal rules restrict any use of the information to criminally investigate or prosecute any alcohol or drug abuse patient.[facility] HospitalIn the event this information is protected by the Federal Confidentiality of Alcohol and Drug Abuse Patient Records regulations: The Federal rules restrict any use of the information to criminally investigate or prosecute any alcohol or drug abuse patient.[facility] HospitalIn the event this information is protected by the Federal Confidentiality of Alcohol and Drug Abuse Patient Records regulations: The Federal rules restrict any use of the information to criminally investigate or prosecute any alcohol or drug abuse patient.[facility] HospitalIn the event this information is protected by the Federal Confidentiality of Alcohol and Drug Abuse Patient Records regulations: The Federal rules restrict any use of the information to criminally investigate or prosecute any alcohol or drug abuse patient.[facility] HospitalIn the event this information is protected by the Federal Confidentiality of Alcohol and Drug Abuse Patient Records regulations: The Federal rules restrict any use of the information to criminally investigate or prosecute any alcohol or drug abuse patient.[facility] HospitalIn the event this information is protected by the Federal Confidentiality of Alcohol and Drug Abuse Patient Records regulations: The Federal rules restrict any use of the information to criminally investigate or prosecute any alcohol or drug abuse patient.[facility] HospitalIn the event this information is protected by the Federal Confidentiality of Alcohol and Drug Abuse Patient Records regulations: The Federal rules restrict any use of the information to criminally investigate or prosecute any alcohol or drug abuse patient.[facility] HospitalIn the event this information is protected by the Federal Confidentiality of Alcohol and Drug Abuse Patient Records regulations: The Federal rules restrict any use of the information to criminally investigate or prosecute any alcohol or drug abuse patient.[facility] HospitalIn the event this information is protected by the Federal Confidentiality of Alcohol and Drug Abuse Patient Records regulations: The Federal rules restrict any use of the information to criminally investigate or prosecute any alcohol or drug abuse patient.[facility] HospitalIn the event this information is protected by the Federal Confidentiality of Alcohol and Drug Abuse Patient Records regulations: The Federal rules restrict any use of the information to criminally investigate or prosecute any alcohol or drug abuse patient.[facility] HospitalIn the event this information is protected by the Federal Confidentiality of Alcohol and Drug Abuse Patient Records regulations: The Federal rules restrict any use of the information to criminally investigate or prosecute any alcohol or drug abuse patient.[facility] HospitalIn the event this information is protected by the Federal Confidentiality of Alcohol and Drug Abuse Patient Records regulations: The Federal rules restrict any use of the information to criminally investigate or prosecute any alcohol or drug abuse patient.[facility] HospitalIn the event this information is protected by the Federal Confidentiality of Alcohol and Drug Abuse Patient Records regulations: The Federal rules restrict any use of the information to criminally investigate or prosecute any alcohol or drug abuse patient.[facility] HospitalIn the event this information is protected by the Federal Confidentiality of Alcohol and Drug Abuse Patient Records regulations: The Federal rules restrict any use of the information to criminally investigate or prosecute any alcohol or drug abuse patient.[facility] HospitalIn the event this information is protected by the Federal Confidentiality of Alcohol and Drug Abuse Patient Records regulations: The Federal rules restrict any use of the information to criminally investigate or prosecute any alcohol or drug abuse patient.[facility] HospitalIn the event this information is protected by the Federal Confidentiality of Alcohol and Drug Abuse Patient Records regulations: The Federal rules restrict any use of the information to criminally investigate or prosecute any alcohol or drug abuse patient.[facility] HospitalIn the event this information is protected by the Federal Confidentiality of Alcohol and Drug Abuse Patient Records regulations: The Federal rules restrict any use of the information to criminally investigate or prosecute any alcohol or drug abuse patient.[facility] HospitalIn the event this information is protected by the Federal Confidentiality of Alcohol and Drug Abuse Patient Records regulations: The Federal rules restrict any use of the information to criminally investigate or prosecute any alcohol or drug abuse patient.[facility] HospitalIn the event this information is protected by the Federal Confidentiality of Alcohol and Drug Abuse Patient Records regulations: The Federal rules restrict any use of the information to criminally investigate or prosecute any alcohol or drug abuse patient.[facility] HospitalIn the event this information is protected by the Federal Confidentiality of Alcohol and Drug Abuse Patient Records regulations: The Federal rules restrict any use of the information to criminally investigate or prosecute any alcohol or drug abuse patient.[facility] HospitalIn the event this information is protected by the Federal Confidentiality of Alcohol and Drug Abuse Patient Records regulations: The Federal rules restrict any use of the information to criminally investigate or prosecute any alcohol or drug abuse patient.[facility] HospitalIn the event this information is protected by [...] or prosecute any alcohol or drug abuse patient.[facility] HospitalIn the event this information is protected by the Federal Confidentiality of Alcohol and Drug Abuse Patient Records regulations: The Federal rules restrict any use of the information to criminally investigate or prosecute any alcohol or drug abuse patient.[facility] HospitalIn the event this information is protected by the Federal Confidentiality of Alcohol and Drug Abuse Patient Records regulations: The Federal rules restrict any use of the information to criminally investigate or prosecute any alcohol or drug abuse patient.[facility] HospitalIn the event this information is protected by the Federal Confidentiality of Alcohol and Drug Abuse Patient Records regulations: The Federal rules restrict any use of the information to criminally investigate or prosecute any alcohol or drug abuse patient.[facility] HospitalIn the event this information is protected by the Federal Confidentiality of Alcohol and Drug Abuse Patient Records regulations: The Federal rules restrict any use of the information to criminally investigate or prosecute any alcohol or drug abuse patient.[facility] HospitalIn the event this information is protected by the Federal Confidentiality of Alcohol and Drug Abuse Patient Records regulations: The Federal rules restrict any use of the information to criminally investigate or prosecute any alcohol or drug abuse patient.[facility] HospitalIn the event this information is protected by the Federal Confidentiality of Alcohol and Drug Abuse Patient Records regulations: The Federal rules restrict any use of the information to criminally investigate or prosecute any alcohol or drug abuse patient.[facility] HospitalIn the event this information is protected by the Federal Confidentiality of Alcohol and Drug Abuse Patient Records regulations: The Federal rules restrict any use of the information to criminally investigate or prosecute any alcohol or drug abuse patient.[facility] HospitalIn the event this information is protected by the Federal Confidentiality of Alcohol and Drug Abuse Patient Records regulations: The Federal rules restrict any use of the information to criminally investigate or prosecute any alcohol or drug abuse patient.[facility] HospitalIn the event this information is protected by the Federal Confidentiality of Alcohol and Drug Abuse Patient Records regulations: The Federal rules restrict any use of the information to criminally investigate or prosecute any alcohol or drug abuse patient.[facility] HospitalIn the event this information is protected by the Federal Confidentiality of Alcohol and Drug Abuse Patient Records regulations: The Federal rules restrict any use of the information to criminally investigate or prosecute any alcohol or drug abuse patient.[facility] HospitalIn the event this information is protected by the Federal Confidentiality of Alcohol and Drug Abuse Patient Records regulations: The Federal rules restrict any use of the information to criminally investigate or prosecute any alcohol or drug abuse patient.[facility] HospitalIn the event this information is protected by the Federal Confidentiality of Alcohol and Drug Abuse Patient Records regulations: The Federal rules restrict any use of the information to criminally investigate or prosecute any alcohol or drug abuse patient.[facility] HospitalIn the event this information is protected by the Federal Confidentiality of Alcohol and Drug Abuse Patient Records regulations: The Federal rules restrict any use of the information to criminally investigate or prosecute any alcohol or drug abuse patient.[facility] HospitalIn the event this information is protected by the Federal Confidentiality of Alcohol and Drug Abuse Patient Records regulations: The Federal rules restrict any use of the information to criminally investigate or prosecute any alcohol or drug abuse patient.[facility] HospitalIn the event this information is protected by the Federal Confidentiality of Alcohol and Drug Abuse Patient Records regulations: The Federal rules restrict any use of the information to criminally investigate or prosecute any alcohol or drug abuse patient.[facility] HospitalIn the event this information is protected by the Federal Confidentiality of Alcohol and Drug Abuse Patient Records regulations: The Federal rules restrict any use of the information to criminally investigate or prosecute any alcohol or drug abuse patient.[facility] HospitalIn the event this information is protected by the Federal Confidentiality of Alcohol and Drug Abuse Patient Records regulations: The Federal rules restrict any use of the information to criminally investigate or prosecute any alcohol or drug abuse patient.[facility] HospitalIn the event this information is protected by the Federal Confidentiality of Alcohol and Drug Abuse Patient Records regulations: The Federal rules restrict any use of the information to criminally investigate or prosecute any alcohol or drug abuse patient.[facility] HospitalIn the event this information is protected by the Federal Confidentiality of Alcohol and Drug Abuse Patient Records regulations: The Federal rules restrict any use of the information to criminally investigate or prosecute any alcohol or drug abuse patient.[facility] HospitalIn the event this information is protected by the Federal Confidentiality of Alcohol and Drug Abuse Patient Records regulations: The Federal rules restrict any use of the information to criminally investigate or prosecute any alcohol or drug abuse patient.[facility] HospitalIn the event this information is protected by the Federal Confidentiality of Alcohol and Drug Abuse Patient Records regulations: The Federal rules restrict any use of the information to criminally investigate or prosecute any alcohol or drug abuse patient.[facility] HospitalIn the event this information is protected by the Federal Confidentiality of Alcohol and Drug Abuse Patient Records regulations: The Federal rules restrict any use of the information to criminally investigate or prosecute any alcohol or drug abuse patient.[facility] HospitalIn the event this information is protected by the Federal Confidentiality of Alcohol and Drug Abuse Patient Records regulations: The Federal rules restrict any use of the information to criminally investigate or prosecute any alcohol or drug abuse patient.[facility] HospitalIn the event this information is protected by the Federal Confidentiality of Alcohol and Drug Abuse Patient Records regulations: The Federal rules restrict any use of the information to criminally investigate or prosecute any alcohol or drug abuse patient.[facility] HospitalIn the event this information is protected by the Federal Confidentiality of Alcohol and Drug Abuse Patient Records regulations: The Federal rules restrict any use of the information to criminally investigate or prosecute any alcohol or drug abuse patient.[facility] HospitalIn the event this information is protected by the Federal Confidentiality of Alcohol and Drug Abuse Patient Records regulations: The Federal rules restrict any use of the information to criminally investigate or prosecute any alcohol or drug abuse patient.[facility] HospitalIn the event this information is protected by the Federal Confidentiality of Alcohol and Drug Abuse Patient Records regulations: The Federal rules restrict any use of the information to criminally investigate or prosecute any alcohol or drug abuse patient.[facility] HospitalIn the event this information is protected by the Federal Confidentiality of Alcohol and Drug Abuse Patient Records regulations: The Federal rules restrict any use of the information to criminally investigate or prosecute any alcohol or drug abuse patient.[facility] HospitalIn the event this information is protected by the Federal Confidentiality of Alcohol and Drug Abuse Patient Records regulations: The Federal rules restrict any use of the information to criminally investigate or prosecute any alcohol or drug abuse patient.[facility] HospitalIn the event this information is protected by the Federal Confidentiality of Alcohol and Drug Abuse Patient Records regulations: The Federal rules restrict any use of the information to criminally investigate or prosecute any alcohol or drug abuse patient.[facility] HospitalIn the event this information is protected by the Federal Confidentiality of Alcohol and Drug Abuse Patient Records regulations: The Federal rules restrict any use of the information to criminally investigate or prosecute any alcohol or drug abuse patient.[facility] HospitalIn the event this information is protected by the Federal Confidentiality of Alcohol and Drug Abuse Patient Records regulations: The Federal rules restrict any use of the information to criminally investigate or prosecute any alcohol or drug abuse patient.[facility] HospitalIn the event this information is protected by the Federal Confidentiality of Alcohol and Drug Abuse Patient Records regulations: The Federal rules restrict any use of the information to criminally investigate or prosecute any alcohol or drug abuse patient.[facility] HospitalIn the event this information is protected by the Federal Confidentiality of Alcohol and Drug Abuse Patient Records regulations: The Federal rules restrict any use of the information to criminally investigate or prosecute any alcohol or drug abuse patient.[facility] HospitalIn the event this information is protected by the Federal Confidentiality of Alcohol and Drug Abuse Patient Records regulations: The Federal rules restrict any use of the information to criminally investigate or prosecute any alcohol or drug abuse patient.[facility] HospitalIn the event this information is protected by the Federal Confidentiality of Alcohol and Drug Abuse Patient Records regulations: The Federal rules restrict any use of the information to criminally investigate or prosecute any alcohol or drug abuse patient.[facility] HospitalIn the event this information is protected by the Federal Confidentiality of Alcohol and Drug Abuse Patient Records regulations: The Federal rules restrict any use of the information to criminally investigate or prosecute any alcohol or drug abuse patient.[facility] HospitalIn the event this information is protected by the Federal Confidentiality of Alcohol and Drug Abuse Patient Records regulations: The Federal rules restrict any use of the information to criminally investigate or prosecute any alcohol or drug abuse patient.[facility] HospitalIn the event this information is protected by the Federal Confidentiality of Alcohol and Drug Abuse Patient Records regulations: The Federal rules restrict any use of the information to criminally investigate or prosecute any alcohol or drug abuse patient.[facility] HospitalIn the event this information is protected by the Federal Confidentiality of Alcohol and Drug Abuse Patient Records regulations: The Federal rules restrict any use of the information to criminally investigate or prosecute any alcohol or drug abuse patient.[facility] HospitalIn the event this information is protected by the Federal Confidentiality of Alcohol and Drug Abuse Patient Records regulations: The Federal rules restrict any use of the information to criminally investigate or prosecute any alcohol or drug abuse patient.[facility] HospitalIn the event this information is protected by the Federal Confidentiality of Alcohol and Drug Abuse Patient Records regulations: The Federal rules restrict any use of the information to criminally investigate or prosecute any alcohol or drug abuse patient.[facility] HospitalIn the event this information is protected by the Federal Confidentiality of Alcohol and Drug Abuse Patient Records regulations: The Federal rules restrict any use of the information to criminally investigate or prosecute any alcohol or drug abuse patient.[facility] HospitalIn the event this information is protected by the Federal Confidentiality of Alcohol and Drug Abuse Patient Records regulations: The Federal rules restrict any use of the information to criminally investigate or prosecute any alcohol or drug abuse patient.[facility] HospitalIn the event this information is protected by the Federal Confidentiality of Alcohol and Drug Abuse Patient Records regulations: The Federal rules restrict any use of the information to criminally investigate or prosecute any alcohol or drug abuse patient.[facility] [facility] HospitalIn the event this information is protected by the Federal Confidentiality of Alcohol and Drug Abuse Patient Records regulations: The Federal rules restrict any use of the information to criminally investigate or prosecute any alcohol or drug abuse patient.[facility] HospitalIn the event this information is protected by the Federal Confidentiality of Alcohol and Drug Abuse Patient Records regulations: The Federal rules restrict any use of the information to criminally investigate or prosecute any alcohol or drug abuse patient.[facility]In the event this information is protected by the Federal Confidentiality of Alcohol and Drug Abuse Patient Records regulations: The Federal rules restrict any use of the information to criminally investigate or prosecute any alcohol or drug abuse patient.[facility] HospitalIn the event this information is protected by [...] or prosecute any alcohol or drug abuse patient.[facility] HospitalIn the event this information is protected by the Federal Confidentiality of Alcohol and Drug Abuse Patient Records regulations: The Federal rules restrict any use of the information to criminally investigate or prosecute any alcohol or drug abuse patient.[facility] HospitalIn the event this information is protected by the Federal Confidentiality of Alcohol and Drug Abuse Patient Records regulations: The Federal rules restrict any use of the information to criminally investigate or prosecute any alcohol or drug abuse patient.[facility] HospitalIn the event this information is protected by the Federal Confidentiality of Alcohol and Drug Abuse Patient Records regulations: The Federal rules restrict any use of the information to criminally investigate or prosecute any alcohol or drug abuse patient.[facility] HospitalIn the event this information is protected by the Federal Confidentiality of Alcohol and Drug Abuse Patient Records regulations: The Federal rules restrict any use of the information to criminally investigate or prosecute any alcohol or drug abuse patient.[facility] HospitalIn the event this information is protected by the Federal Confidentiality of Alcohol and Drug Abuse Patient Records regulations: The Federal rules restrict any use of the information to criminally investigate or prosecute any alcohol or drug abuse patient.[facility] HospitalIn the event this information is protected by the Federal Confidentiality of Alcohol and Drug Abuse Patient Records regulations: The Federal rules restrict any use of the information to criminally investigate or prosecute any alcohol or drug abuse patient.[facility] HospitalIn the event this information is protected by the Federal Confidentiality of Alcohol and Drug Abuse Patient Records regulations: The Federal rules restrict any use of the information to criminally investigate or prosecute any alcohol or drug abuse patient.[facility] HospitalIn the event this information is protected by the Federal Confidentiality of Alcohol and Drug Abuse Patient Records regulations: The Federal rules restrict any use of the information to criminally investigate or prosecute any alcohol or drug abuse patient.[facility] HospitalIn the event this information is protected by the Federal Confidentiality of Alcohol and Drug Abuse Patient Records regulations: The Federal rules restrict any use of the information to criminally investigate or prosecute any alcohol or drug abuse patient.[facility] HospitalIn the event this information is protected by the Federal Confidentiality of Alcohol and Drug Abuse Patient Records regulations: The Federal rules restrict any use of the information to criminally investigate or prosecute any alcohol or drug abuse patient.[facility] HospitalIn the event this information is protected by the Federal Confidentiality of Alcohol and Drug Abuse Patient Records regulations: The Federal rules restrict any use of the information to criminally investigate or prosecute any alcohol or drug abuse patient.[facility] HospitalIn the event this information is protected by the Federal Confidentiality of Alcohol and Drug Abuse Patient Records regulations: The Federal rules restrict any use of the information to criminally investigate or prosecute any alcohol or drug abuse patient.[facility] HospitalIn the event this information is protected by the Federal Confidentiality of Alcohol and Drug Abuse Patient Records regulations: The Federal rules restrict any use of the information to criminally investigate or prosecute any alcohol or drug abuse patient.[facility] HospitalIn the event this information is protected by the Federal Confidentiality of Alcohol and Drug Abuse Patient Records regulations: The Federal rules restrict any use of the information to criminally investigate or prosecute any alcohol or drug abuse patient.[facility] HospitalIn the event this information is protected by the Federal Confidentiality of Alcohol and Drug Abuse Patient Records regulations: The Federal rules restrict any use of the information to criminally investigate or prosecute any alcohol or drug abuse patient.[facility] HospitalIn the event this information is protected by the Federal Confidentiality of Alcohol and Drug Abuse Patient Records regulations: The Federal rules restrict any use of the information to criminally investigate or prosecute any alcohol or drug abuse patient.[facility] HospitalIn the event this information is protected by the Federal Confidentiality of Alcohol and Drug Abuse Patient Records regulations: The Federal rules restrict any use of the information to criminally investigate or prosecute any alcohol or drug abuse patient.[facility] HospitalIn the event this information is protected by the Federal Confidentiality of Alcohol and Drug Abuse Patient Records regulations: The Federal rules restrict any use of the information to criminally investigate or prosecute any alcohol or drug abuse patient.[facility] HospitalIn the event this information is protected by the Federal Confidentiality of Alcohol and Drug Abuse Patient Records regulations: The Federal rules restrict any use of the information to criminally investigate or prosecute any alcohol or drug abuse patient.[facility] HospitalIn the event this information is protected by the Federal Confidentiality of Alcohol and Drug Abuse Patient Records regulations: The Federal rules restrict any use of the information to criminally investigate or prosecute any alcohol or drug abuse patient.[facility] HospitalIn the event this information is protected by the Federal Confidentiality of Alcohol and Drug Abuse Patient Records regulations: The Federal rules restrict any use of the information to criminally investigate or prosecute any alcohol or drug abuse patient.[facility] HospitalIn the event this information is protected by the Federal Confidentiality of Alcohol and Drug Abuse Patient Records regulations: The Federal rules restrict any use of the information to criminally investigate or prosecute any alcohol or drug abuse patient.[facility] HospitalIn the event this information is protected by the Federal Confidentiality of Alcohol and Drug Abuse Patient Records regulations: The Federal rules restrict any use of the information to criminally investigate or prosecute any alcohol or drug abuse patient.[facility] HospitalIn the event this information is protected by the Federal Confidentiality of Alcohol and Drug Abuse Patient Records regulations: The Federal rules restrict any use of the information to criminally investigate or prosecute any alcohol or drug abuse patient.[facility] HospitalIn the event this information is protected by the Federal Confidentiality of Alcohol and Drug Abuse Patient Records regulations: The Federal rules restrict any use of the information to criminally investigate or prosecute any alcohol or drug abuse patient.[facility] HospitalIn the event this information is protected by the Federal Confidentiality of Alcohol and Drug Abuse Patient Records regulations: The Federal rules restrict any use of the information to criminally investigate or prosecute any alcohol or drug abuse patient.[facility] HospitalIn the event this information is protected by the Federal Confidentiality of Alcohol and Drug Abuse Patient Records regulations: The Federal rules restrict any use of the information to criminally investigate or prosecute any alcohol or drug abuse patient.[facility] HospitalIn the event this information is protected by the Federal Confidentiality of Alcohol and Drug Abuse Patient Records regulations: The Federal rules restrict any use of the information to criminally investigate or prosecute any alcohol or drug abuse patient.[facility] HospitalIn the event this information is protected by the Federal Confidentiality of Alcohol and Drug Abuse Patient Records regulations: The Federal rules restrict any use of the information to criminally investigate or prosecute any alcohol or drug abuse patient.[facility] HospitalIn the event this information is protected by the Federal Confidentiality of Alcohol and Drug Abuse Patient Records regulations: The Federal rules restrict any use of the information to criminally investigate or prosecute any alcohol or drug abuse patient.[facility] HospitalIn the event this information is protected by the Federal Confidentiality of Alcohol and Drug Abuse Patient Records regulations: The Federal rules restrict any use of the information to criminally investigate or prosecute any alcohol or drug abuse patient.[facility] HospitalIn the event this information is protected by the Federal Confidentiality of Alcohol and Drug Abuse Patient Records regulations: The Federal rules restrict any use of the information to criminally investigate or prosecute any alcohol or drug abuse patient.[facility] Care Teams (unrecognized sec tion and content) Real Estate Rental Agent Relationship Specialty Start Date End Date Rosmery Horn MD [address] [place] [address] PCP - General Internal Medicine 12/16/18 Cr Gibbs [address] [id number] Physician Internal Medicine 11/19/16 Nenita Solorio MD, [address] [place], [place] [id number] Physician Radiation Oncology 03/26/17 Real Estate Rental Agent Relationship Specialty Start Date End Date Rosmery Horn MD [address] [place], [place] [id number] PCP - General Internal Medicine 12/16/18 Cr Gibbs R [address] [place] [address] Physician Internal Medicine 11/19/16 Nenita Solorio MD, [address] [facility] [place] [address] Physician Radiation Oncology 03/26/17 Real Estate Rental Agent Relationship Specialty Start Date End Date Rosmery Horn MD [address] [place] [address] PCP - General Internal Medicine 12/16/18 Cr Gibbs R [address] [place] [address] Physician Internal Medicine 11/19/16 Nenita Solorio MD, [address] [facility] [place] [address] Physician Radiation Oncology 03/26/17 Real Estate Rental Agent Relationship Specialty Start Date End Date Rosmery Horn MD [address] [place] [address] PCP - General Internal Medicine 12/16/18 Cr Gibbs [address] [place] [address] Physician Internal Medicine 11/19/16 Nenita Solorio MD, [address] [facility] [place] [address] Physician Radiation Oncology 03/26/17 Real Estate Rental Agent Relationship Specialty Start Date End Date Rosmery Horn MD [address] [place] [address] PCP - General Internal Medicine 12/16/18 Thomae, Cr R [address] [place] [phone] Physician Internal Medicine 11/19/16 Nenita Solorio MD, [address] [facility] [place] [address] Physician Radiation Oncology 03/26/17 Real Estate Rental Agent Relationship Specialty Start Date End Date Rosmery Horn MD [address] [place] [address] PCP - General Internal Medicine 12/16/18 Cr Gibbs [address] [place] [address] Physician Internal Medicine 11/19/16 Nenita Solorio MD, [address] [place] [address] Physician Radiation Oncology 03/26/17 Real Estate Rental Agent Relationship Specialty Start Date End Date Rosmery Horn MD [address] [place] [address] PCP - General Internal Medicine 12/16/18 Cr Gibbs [address] [place] [address] Physician Internal Medicine 11/19/16 Nenita Solorio MD, [address] [place] [address] Physician Radiation Oncology 03/26/17 Real Estate Rental Agent Relationship Specialty Start Date End Date Rosmery Horn MD [address] [place] [address] PCP - General Internal Medicine 12/16/18 Cr Gibbs [address] [place] [address] Physician Internal Medicine 11/19/16 Nenita Solorio MD, [address] [facility] [place] [address] Physician Radiation Oncology 03/26/17 Real Estate Rental Agent Relationship Specialty Start Date End Date Rosmery Horn MD [address] [place] [address] PCP - General Internal Medicine 12/16/18 Cr Gibbs R [address] [place] [phone] Physician Internal Medicine 11/19/16 Nenita Solorio MD, [address] [facility] [place] [address] Physician Radiation Oncology 03/26/17 Real Estate Rental Agent Relationship Specialty Start Date End Date Rosmery Horn MD [address] [place] [address] PCP - General Internal Medicine 12/16/18 Cr Gibbs R [address] [place] [address] Physician Internal Medicine 11/19/16 eNnita Solorio MD, [address] [place] [address] Physician Radiation Oncology 03/26/17 Real Estate Rental Agent Relationship Specialty Start Date End Date Rosmery Horn MD [address] [place] [address] PCP - General Internal Medicine 12/16/18 Cr Gibbs R [address] [place] [address] Physician Internal Medicine 11/19/16 Nenita Solorio MD, [address] [address] Physician Radiation Oncology 03/26/17 Real Estate Rental Agent Relationship Specialty Start Date End Date Rosmery Horn MD [address] [place] [address] PCP - General Internal Medicine 12/16/18 Cr Gibbs R [address] [place] [phone] Physician Internal Medicine 11/19/16 Nenita Solorio MD, [address] [facility] [place] [address] Physician Radiation Oncology 03/26/17 Real Estate Rental Agent Relationship Specialty Start Date End Date Rosmery Horn MD [address] [place] [address] PCP - General Internal Medicine 12/16/18 Cr Gibbs R [address] [place] [address] Physician Internal Medicine 11/19/16 Nenita Solorio MD, [address] [facility] [place] [address] Physician Radiation Oncology 03/26/17 Real Estate Rental Agent Relationship Specialty Start Date End Date Rosmery Horn MD [address] [place] [address] PCP - General Internal Medicine 12/16/18 Cr Gibbs R [address] [place] [address] Physician Internal Medicine 11/19/16 Nenita Solorio MD, [address] [facility] [place] [address] Physician Radiation Oncology 03/26/17 Real Estate Rental Agent Relationship Specialty Start Date End Date Rosmery Horn MD [address] [place] [address] PCP - General Internal Medicine 12/16/18 Cr Gibbs R [address] [place] [phone] Physician Internal Medicine 11/19/16 Nenita Solorio MD, [address] [facility] [place] [address] Physician Radiation Oncology 03/26/17 Real Estate Rental Agent Relationship Specialty Start Date End Date Rosmery Horn MD [address] [place] [address] PCP - General Internal Medicine 12/16/18 Cr Gibbs R [address] [place] [address] Physician Internal Medicine 11/19/16 Nenita Solorio MD, [address] [facility] [place] [address] Physician Radiation Oncology 03/26/17 Real Estate Rental Agent Relationship Specialty Start Date End Date Rosmery Horn MD [address] [place] [address] PCP - General Internal Medicine 12/16/18 Cr Gibbs R [address] [place] [address] Physician Internal Medicine 11/19/16 Nenita Solorio MD, [address] [facility] [place] [address] Physician Radiation Oncology 03/26/17 Real Estate Rental Agent Relationship Specialty Start Date End Date Rosmery Horn MD [address] [place] [address] PCP - General Internal Medicine 12/16/18 Cr Gibbs R [address] [place] [address] Physician Internal Medicine 11/19/16 Nenita Solorio MD, [address] [facility] [place] [address] Physician Radiation Oncology 03/26/17 Real Estate Rental Agent Relationship Specialty Start Date End Date Rosmery Horn MD [address] [place] [address] PCP - General Internal Medicine 12/16/18 Cr Gibbs R [address] [place] [address] Physician Internal Medicine 11/19/16 Nenita Solorio MD, [address] [facility] [place] [address] Physician Radiation Oncology 03/26/17 Real Estate Rental Agent Relationship Specialty Start Date End Date Rosmery Horn MD [address] [place] [address] PCP - General Internal Medicine 12/16/18 Cr Gibbs R [address] [place] [address] Physician Internal Medicine 11/19/16 Nenita Solorio MD, [address] [facility] [place] [address] Physician Radiation Oncology 03/26/17 Real Estate Rental Agent Relationship Specialty Start Date End Date Rosmery Horn MD [address] [place] [address] PCP - General Internal Medicine 12/16/18 Cr Gibbs R [address] [place] [address] Physician Internal Medicine 11/19/16 Nenita Solorio MD, [address] [facility] [place] [address] Physician Radiation Oncology 03/26/17 Real Estate Rental Agent Relationship Specialty Start Date End Date Rosmery Horn MD [address] [place] [address] PCP - General Internal Medicine 12/16/18 Cr Gibbs R [address] [place] [address] Physician Internal Medicine 11/19/16 Nenita Solorio MD, [address] [facility] [place] [address] Physician Radiation Oncology 03/26/17 Real Estate Rental Agent Relationship Specialty Start Date End Date Rosmery Horn MD [address] [place] [address] PCP - General Internal Medicine 12/16/18 Cr Gibbs R [address] [place] [address] Physician Internal Medicine 11/19/16 Nenita Solorio MD, [address] [facility] [place] [address] Physician Radiation Oncology 03/26/17 Real Estate Rental Agent Relationship Specialty Start Date End Date Rosmery Horn MD [address] [place] [address] PCP - General Internal Medicine 12/16/18 Thomae, Cr R [address] [place] [address] Physician Internal Medicine 11/19/16 Nenita Solorio MD, MD [address] [facility] [place] [place] [address] Physician Radiation Oncology 03/26/17 Real Estate Rental Agent Relationship Specialty Start Date End Date Rosmery Horn MD [address] [place], [place] [address] PCP - General Internal Medicine 12/16/18 Arunkrish Cr R [address] [place] [address] Physician Internal Medicine 11/19/16 Nenita Solorio MD, [address] [place], [place] [address] Physician Radiation Oncology 03/26/17 Team Status: Active [...] MD Primary Care Provider, Attending Provider Active Real Estate Rental Agent Relationship Specialty Start Date End Date Rosmery Horn MD [address] [place] [address] PCP - General Internal Medicine 12/16/18 Cr Gibbs R [address] [place] [address] Physician Internal Medicine 11/19/16 Nenita Solorio MD, [address] [place] [address] Physician Radiation Oncology 03/26/17 Real Estate Rental Agent Relationship Specialty Start Date End Date Rosmery Horn MD [address] [place] [address] PCP - General Internal Medicine 12/16/18 Cr Gibbs R [address] [place] [address] Physician Internal Medicine 11/19/16 Nenita Solorio MD, [address] [place] [address] Physician Radiation Oncology 03/26/17 Real Estate Rental Agent Relationship Specialty Start Date End Date Rosmery Horn MD [address] [place] [address] PCP - General Internal Medicine 12/16/18 Cr Gibbs [address] [place] [address] Physician Internal Medicine 11/19/16 Nenita Solorio MD, [address] [place] [address] Physician Radiation Oncology 03/26/17 Real Estate Rental Agent Relationship Specialty Start Date End Date Bernardino Min Chi [address] [place] [address] [place] [address] PCP - General Gerontology 12/25/22 Cr Gibbs R [address] [place] [address] Physician Internal Medicine 11/19/16 Nenita Solorio MD, [address] [place] [address] Physician Radiation Oncology 03/26/17 Real Estate Rental Agent Relationship Specialty Start Date End Date Bernardino Min Chi [address] [place] [address] [place] [address] PCP - General Gerontology 12/25/22 Cr Gibbs R [address] [place] [address] Physician Internal Medicine 11/19/16 Nenita Solorio MD, [address] [place] [address] Physician Radiation Oncology 03/26/17 Real Estate Rental Agent Relationship Specialty Start Date End Date Bernardino Min Chi [address] [place] [address] [place] [address] PCP - General Gerontology 12/25/22 Cr Gibbs R [address] [place] [address] Physician Internal Medicine 11/19/16 Nenita Solorio MD, [address] [place] [address] Physician Radiation Oncology 03/26/17 Real Estate Rental Agent Relationship Specialty Start Date End Date Bernardino Min Chi [address] [place] [address] [place] [address] PCP - General Gerontology 12/25/22 Cr Gibbs R [address] [place] [address] Physician Internal Medicine 11/19/16 Nenita Solorio MD, [address] [place] [address] Physician Radiation Oncology 03/26/17 Real Estate Rental Agent Relationship Specialty Start Date End Date Bernardino Min Chi [address] [place] [address] [place] [address] PCP - General Gerontology 12/25/22 Cr Gibbs R [address] [place] [address] Physician Internal Medicine 11/19/16 Nenita Solorio MD, [address] [place] [address] Physician Radiation Oncology 03/26/17 Real Estate Rental Agent Relationship Specialty Start Date End Date Bernardino Min Chi [address] [place] [address] [place] [address] PCP - General Gerontology 12/25/22 Cr Gibbs R [address] [place] [address] Physician Internal Medicine 11/19/16 Nenita Solorio MD, [address] [place] [address] Physician Radiation Oncology 03/26/17 Real Estate Rental Agent Relationship Specialty Start Date End Date Bernardino Min Chi [address] [place] [address] PCP - General Gerontology 12/25/22 Cr Gibbs R [address] [place] [address] Physician Internal Medicine 11/19/16 Nenita Solorio MD, [address] [place] [address] Physician Radiation Oncology 03/26/17 Real Estate Rental Agent Relationship Specialty Start Date End Date Bernardino Min Chi [address] [place] [address] PCP - General Gerontology 12/25/22 Cr Gibbs R [address] [place] [address] Physician Internal Medicine 11/19/16 Nenita Solorio MD, [address] [place] [address] Physician Radiation Oncology 03/26/17 Real Estate Rental Agent Relationship Specialty Start Date End Date Bernradino Min Chi [address] [place] [address] PCP - General Gerontology 12/25/22 Cr Gibbs R [address] [place] [address] Physician Internal Medicine 11/19/16 Nenita Solorio MD, [address] [place] [address] Physician Radiation Oncology 03/26/17 Team Status: Inactive Member Role Status Dates Dr. Bernardino Min MD Primary Care Provider Active Dr. Carlos Enrique Peguero MD Emergency Provider Active Real Estate Rental Agent Relationship Specialty Start Date End Date Bernardino Min Chi [address] [place] [address] PCP - General Gerontology 12/25/22 Cr Gibbs [address] [place] [address] Physician Internal Medicine 11/19/16 Nenita Solorio MD, [address] [place] [address] Physician Radiation Oncology 03/26/17 Real Estate Rental Agent Relationship Specialty Start Date End Date Pako, Bernardino Tapia [address] [place] [address] PCP - General Gerontology 12/25/22 Cr Gibbs [address] [place] [address] Physician Internal Medicine 11/19/16 Nenita Solorio MD, [address] [place] [address] Physician Radiation Oncology 03/26/17 Real Estate Rental Agent Relationship Specialty Start Date End Date Pako Bernardino Tapia [address] [place], [place] [address] PCP - General Gerontology 12/25/22 Cr Gibbs [address] [place] [address] Physician Internal Medicine 11/19/16 Nenita Solorio MD, [address] [place] 57[address] Physician Radiation Oncology 03/26/17 Real Estate Rental Agent Relationship Specialty Start Date End Date Pako, Bernardino Tapia [address] [place] [address] PCP - General Gerontology 12/25/22 Cr Gibbs [address] [place] [address] Physician Internal Medicine 11/19/16 Nenita Solorio MD, [address] [place] 8[address]871 Physician Radiation Oncology 03/26/17 Real Estate Rental Agent Relationship Specialty Start Date End Date PakoBernardino Chi [address] [place] [address] PCP - General Gerontology 12/25/22 Cr Gibbs [address] [place] [address] Physician Internal Medicine 11/19/16 Nenita Solorio MD, [address] [place] [address] Physician Radiation Oncology 03/26/17 Real Estate Rental Agent Relationship Specialty Start Date End Date Bernardino Min Chi [address] [place], [place] [address] PCP - General Gerontology 12/25/22 Cr Gibbs [address] [place] [address] Physician Internal Medicine 11/19/16 Nenita Solorio MD, [address] [place], [place] [address]82171 Physician Radiation Oncology 03/26/17 Real Estate Rental Agent Relationship Specialty Start Date End Date Bernardino Min Chi [address] [place], [place] [address] PCP - General Gerontology 12/25/22 Cr Gibbs [address] [place] [address] Physician Internal Medicine 11/19/16 Nenita Solorio MD, [address] [place], [place] [address] Physician Radiation Oncology 03/26/17 Real Estate Rental Agent Relationship Specialty Start Date End Date Bernardino Min Chi [address] [place], [place] [address]791 PCP - General Gerontology 12/25/22 Cr Gibbs [address] [place] [address] Physician Internal Medicine 11/19/16 Nenita Solorio MD, [address] [place] [address] Physician Radiation Oncology 03/26/17 Real Estate Rental Agent Relationship Specialty Start Date End Date Bernardino Min Chi [address] [place], [place] 618241 PCP - General Gerontology 12/25/22 Cr Gibbs [address] [place] [address] Physician Internal Medicine 11/19/16 Nenita Solorio MD, [address] [place], [place] [address] Physician Radiation Oncology 03/26/17 Real Estate Rental Agent Relationship Specialty Start Date End Date Bernardino Min Chi [address] [place], [place] 521091 PCP - General Gerontology 12/25/22 Cr Gibbs [address] [place] [address] Physician Internal Medicine 11/19/16 Nenita Solorio MD, [address] [place], [place] 645271 Physician Radiation Oncology 03/26/17 Real Estate Rental Agent Relationship Specialty Start Date End Date Bernardino Min Chi [address] [place], [place] [address] PCP - General Gerontology 12/25/22 Cr Gibbs [address] [place] [address] Physician Internal Medicine 11/19/16 Nenita Solorio MD, [address] [place], [place] [address]8891 Physician Radiation Oncology 03/26/17 Real Estate Rental Agent Relationship Specialty Start Date End Date Bernardino Min Chi [address] [place], [place] [address]151 PCP - General Gerontology 12/25/22 Cr Gibbs [address] [place] [address] Physician Internal Medicine 11/19/16 Nenita Solorio MD, [address] [place], [place] 614481 Physician Radiation Oncology 03/26/17 Domo Frazier DO [address] [place], [place] 915511 Physician Hematology/Oncology 06/04/23 Mason Quintero, RN Specialty Bit Grinder Oncology 06/04/23 Real Estate Rental Agent Relationship Specialty Start Date End Date Bernardino Min Chi [address] [place], [place] 7823[address] PCP - General Gerontology 12/25/22 Cr Gibbs [address] [place] [address] Physician Internal Medicine 11/19/16 Nenita Solorio MD, [address] [place] [address] Physician Radiation Oncology 03/26/17 Domo Frazier DO [address] [place] [address] Physician Hematology/Oncology 06/04/23 Mason Quintero RN Specialty Bit Grinder Oncology 06/04/23 Real Estate Rental Agent Relationship Specialty Start Date End Date Bernardino Min Chi [address] [place], [place] [address]1681 PCP - General Gerontology 12/25/22 Cr Gibbs [address] [place] [address] Physician Internal Medicine 11/19/16 Nenita Solorio MD, [address] [place] [place] [address] Physician Radiation Oncology 03/26/17 Domo Frazier DO [address] [place] [address] Physician Hematology/Oncology 06/04/23 Mason Quintero RN Specialty Bit Grinder Oncology 06/04/23 Real Estate Rental Agent Relationship Specialty Start Date End Date Bernardino Min Chi [address] [place], [place] 423201 PCP - General Gerontology 12/25/22 Cr Gibbs [address] [place] [address] Physician Internal Medicine 11/19/16 Nenita Solorio MD, [address] [place] [place] 47[address] Physician Radiation Oncology 03/26/17 Domo Frazier DO [address] [place] [address] Physician Hematology/Oncology 06/04/23 Mason Quintero RN Specialty Bit Grinder Oncology 06/04/23 Real Estate Rental Agent Relationship Specialty Start Date End Date Bernardino Min Chi [address] [place] [address] PCP - General Gerontology 12/25/22 Cr Gibbs [address] [place] [address] Physician Internal Medicine 11/19/16 Nenita Solorio MD, [address] [place] [address] Physician Radiation Oncology 03/26/17 Domo Frazier DO [address] [place] [address] Physician Hematology/Oncology 06/04/23 Mason Quintero RN Specialty Bit Grinder Oncology 06/04/23 Real Estate Rental Agent Relationship Specialty Start Date End Date Bernardino Min Chi [address] [place] [address] PCP - General Gerontology 12/25/22 Cr Gibbs [address] [place] [address] Physician Internal Medicine 11/19/16 Nenita Solorio MD, [address] [place] [address] Physician Radiation Oncology 03/26/17 Domo Frazier DO [address] [place] [address] Physician Hematology/Oncology 06/04/23 Mason Quintero RN Specialty Bit Grinder Oncology 06/04/23 Real Estate Rental Agent Relationship Specialty Start Date End Date Bernardino Min Chi [address] [place] [address] PCP - General Gerontology 12/25/22 Cr Gibbs [address] [place] [address] Physician Internal Medicine 11/19/16 Nenita Solorio MD, [address] [place] [address] Physician Radiation Oncology 03/26/17 Domo Frazier DO [address] [place] [address] Physician Hematology/Oncology 06/04/23 Mason Quintero RN Specialty Bit Grinder Oncology 06/04/23 Real Estate Rental Agent Relationship Specialty Start Date End Date Bernardino Min Chi [address] [place] [address] PCP - General Gerontology 12/25/22 Cr Gibbs [address] [place] [address] Physician Internal Medicine 11/19/16 Nenita Solorio MD, [address] [place] [address] Physician Radiation Oncology 03/26/17 Domo Frazier DO [address] [place] [address] Physician Hematology/Oncology 06/04/23 Mason Quintero RN Specialty Bit Grinder Oncology 06/04/23 Team Status: Inactive Member Role [...] Dr. Ethan Duarte DO Attending Provider Active Real Estate Rental Agent Relationship Specialty Start Date End Date Bernardino Min Chi [address] [place] [address] PCP - General Gerontology 12/25/22 Cr Gibbs [address] [place] [address] Physician Internal Medicine 11/19/16 Nenita Solorio MD, MD [address] [place], [place] [address]01 Physician Radiation Oncology 03/26/17 Team Status: Inactive Member Role Status Dates Dr. Bernardino Min MD Primary Care Provi virgil, Admit Provider, Attending Provider, Referring Provider Active Team Status: Active Member Role Status Dates Dr. Bernardino Min MD Primary Care Provi virgil, Attending Provider, Referring Provider Active Real Estate Rental Agent Relationship Specialty Start Date End Date Bernardino Min Chi [address] [place], [place] 197771 PCP - General Gerontology 12/25/22 Cr Gibbs [address] [place] [address] Physician Internal Medicine 11/19/16 Nenita Solorio MD, MD [address] [place], [place] [address] Physician Radiation Oncology 03/26/17 Domo Frazier DO [address] [place], [place] [address]26121 Physician Hematology/Oncology 06/04/23 Mason Quintero, RN Specialty Bit Grinder Oncology 06/04/23 Medicine, [facility] [address] [place] [address] Palliative Medicine Provider 07/08/23 Team Status: Inactive Member Role Status Dates Dr. Bernardino Min MD Primary Care Provemily virgil, Attending Provider, Referring Provider Active Real Estate Rental Agent Relationship Specialty Start Date End Date Pako Bernardino Tapia [address] [place], [place] [address] PCP - General Gerontology 12/25/22 Cr Gibbs [address] [place] [address] Physician Internal Medicine 11/19/16 Nenita Solorio MD, [address] [place], [place] 74[address] Physician Radiation Oncology 03/26/17 Domo Frazier DO [address] [place], [place] 803261 Physician Hematology/Oncology 06/04/23 Mason Quintero, RN Specialty Bit Grinder Oncology 06/04/23 Medicine, [facility] [address] [facility] [place], [place] [address] Palliative Medicine Provider 07/08/23 Team Status: Active Member Role Status Dates Dr. Bernardino Min MD Primary Care Provider, Referring Provider Active Dr. Ethan Schaefer MD Attending Provider Active Team Status: Inactive Member Role Status Dates Dr. Bernardino Min MD Primary Care Provider, Attending Provider Active Real Estate Rental Agent Relationship Specialty Start Date End Date Bernardino Min Chi [address] [place] [address]31 PCP - General Gerontology 12/25/22 Cr Gibbs [address] [place] [address] Physician Internal Medicine 11/19/16 Nenita Solorio MD, [address] [place] [address] Physician Radiation Oncology 03/26/17 Domo Frazier DO [address] [place] [address] Physician Hematology/Oncology 06/04/23 Doup, Mason, RN Specialty Bit Grinder Oncology 06/04/23 Medicine, [facility] [address] [place] [address] Palliative Medicine Provider 07/08/23 Real Estate Rental Agent Relationship Specialty Start Date End Date Bernardino Min Chi [address] [place], [place] [address] PCP - General Gerontology 12/25/22 Cr Gibbs [address] [place] [address] Physician Internal Medicine 11/19/16 Nenita Solorio MD [address] [facility] [place] [place] [address] Physician Radiation Oncology 03/26/17 oDmo Frazier DO [address] [address] [place], [place] 2149[address] Physician Hematology/Oncology 06/04/23 Mason Quintero, MONTSE Specialty Bit Grinder Oncology 06/04/23 Medicine, [facility] [address] [place] [address] Palliative Medicine Provider 07/08/23 Real Estate Rental Agent Relationship Specialty Start Date End Date Bernardino Min Chi [address] [place] [address] PCP - General Gerontology 12/25/22 Cr Gibbs [address] [place] [address] Physician Internal Medicine 11/19/16 Nenita Solorio MD [address] [facility] [address] [place] [phone] Physician Radiation Oncology 03/26/17 Domo Frazier DO [address] [place] [address] Physician Hematology/Oncology 06/04/23 Mason Quintero, RN Specialty Bit Grinder Oncology 06/04/23 Medicine, [facility] [address] [place] [address] Palliative Medicine Provider 07/08/23 Real Estate Rental Agent Relationship Specialty Start Date End Date PakoBernardino Chi [address] [place], [place] [address]71 PCP - General Gerontology 12/25/22 Cr Gibbs [address] [place] [address] Physician Internal Medicine 11/19/16 Nenita Solorio MD [address] [place] [address]681 Physician Radiation Oncology 03/26/17 Domo Frazier DO [address] [place] [address] Physician Hematology/Oncology 06/04/23 Mason Quintero, RN Specialty Bit Grinder Oncology 06/04/23 Medicine, [facility] [address] [place] [address] Palliative Medicine Provider 07/08/23 Real Estate Rental Agent Relationship Specialty Start Date End Date PakoBernardino Chi [address] [place], [place] [address] PCP - General Gerontology 12/25/22 Cr Gibbs [address] [place] [address] Physician Internal Medicine 11/19/16 Nenita Solorio MD [address] [place], [place] 330291 Physician Radiation Oncology 03/26/17 Domo Frazier DO [address] [place], [place] 432801 Physician Hematology/Oncology 06/04/23 Mason Quintero, RN Specialty Bit Grinder Oncology 06/04/23 Medicine, [facility] [address] [place] [address] Palliative Medicine Provider 07/08/23 Real Estate Rental Agent Relationship Specialty Start Date End Date Benrardino Min Chi [address] [place], [place] [address]991 PCP - General Gerontology 12/25/22 Cr Gibbs [address] [place] [address] Physician Internal Medicine 11/19/16 Nenita Solorio MD [address] [place], [place] 203471 Physician Radiation Oncology 03/26/17 Domo Frazier DO [address] [place] [address] Physician Hematology/Oncology 06/04/23 Mason Quintero, RN Specialty Bit Grinder Oncology 06/04/23 Medicine, [facility] [address] [place] [address] Palliative Medicine Provider 07/08/23 Real Estate Rental Agent Relationship Specialty Start Date End Date Bernardino Min Chi [address] [place] [address] PCP - General Gerontology 12/25/22 Cr Gibbs [address] [place] [address] Physician Internal Medicine 11/19/16 Nenita Solorio MD [address] [place], [place] [address]241 Physician Radiation Oncology 03/26/17 Domo Frazier DO [address] [place] [address] Physician Hematology/Oncology 06/04/23 Mason Quintero, RN Specialty Bit Grinder Oncology 06/04/23 Medicine, [facility] [address] [place] [id number] Palliative Medicine Provider 07/08/23 Real Estate Rental Agent Relationship Specialty Start Date End Date Bernardino Min Chi [address] [place] [address] PCP - General Gerontology 12/25/22 Cr Gibbs [address] [place] [address] Physician Internal Medicine 11/19/16 Nenita Solorio MD [address] [place] [address] Physician Radiation Oncology 03/26/17 Domo Frazier DO [address] [place], [place] [address]18[address] Physician Hematology/Oncology 06/04/23 Mason Quintero, RN Specialty Bit Grinder Oncology 06/04/23 Medicine, [facility] [address] [place] [address] Palliative Medicine Provider 07/08/23 Real Estate Rental Agent Relationship Specialty Start Date End Date Bernardino Min Chi [address] [place], [place] [address] PCP - General Gerontology 12/25/22 Cr Gibbs [address] [place] [address] Physician Internal Medicine 11/19/16 Nenita Solorio MD [address] [place], [place] [address]86691 Physician Radiation Oncology 03/26/17 Domo Frazier DO [address] [place] [address] Physician Hematology/Oncology 06/04/23 Mason Quintero, RN Specialty Bit Grinder Oncology 06/04/23 Medicine, [facility] [address] [place] [address] Palliative Medicine Provider 07/08/23 Real Estate Rental Agent Relationship Specialty Start Date End Date Bernardino Min Chi [address] [place], [place] [address]65111 PCP - General Gerontology 12/25/22 Cr Gibbs [address] [place] [address] Physician Internal Medicine 11/19/16 Nenita Solorio MD [address] [place], [place] 841921 Physician Radiation Oncology 03/26/17 Domo Frazier DO [address] [place], [place] [address]64261 Physician Hematology/Oncology 06/04/23 Mason Quintero, RN Specialty Bit Grinder Oncology 06/04/23 Medicine, [facility] [address] [place] [address] Palliative Medicine Provider 07/08/23 Real Estate Rental Agent Relationship Specialty Start Date End Date Bernardino Min Chi [address] [place], [place] [address]1321 PCP - General Gerontology 12/25/22 Cr Gibbs [address] [place] [address] Physician Internal Medicine 11/19/16 Nenita Solorio MD [address] [place] [address] Physician Radiation Oncology 03/26/17 Domo Frazier DO [address] [place] [address] Physician Hematology/Oncology 06/04/23 Mason Quintero, RN Specialty Bit Grinder Oncology 06/04/23 Medicine, [facility] [address] [place] [address] Palliative Medicine Provider 07/08/23 Real Estate Rental Agent Relationship Specialty Start Date End Date Rosmery Horn MD [address] [place] [address] PCP - General 08/30/19 Real Estate Rental Agent Relationship Specialty Start Date End Date Pako Bernardino Tapia [address] [place] [address] PCP - General Gerontology 12/25/22 Cr Gibbs [address] [place] [address] Physician Internal Medicine 11/19/16 Nenita Solorio MD [address] [place] [address] Physician Radiation Oncology 03/26/17 Domo Frazier DO [address] [place] [address] Physician Hematology/Oncology 06/04/23 Mason Quintero, MONTSE Specialty Bit Grinder Oncology 06/04/23 Medicine, [facility] [address] [place] [id number] Palliative Medicine Provider 07/08/23 Real Estate Rental Agent Relationship Specialty Start Date End Date Terry Mccann [address] [place], [place] [id number] PCP - General Internal Medicine 12/28/23 Cr Gibbs [address] [place] [address] Physician Internal Medicine 11/19/16 Nenita Solorio MD [address] [place] [place] [address] Physician Radiation Oncology 03/26/17 Domo Frazier DO [address] [place] [address] Physician Hematology/Oncology 06/04/23 Mason Quintero, RN Specialty Bit Grinder Oncology 06/04/23 Medicine, [facility] [address] [place] [address] Palliative Medicine Provider 07/08/23 Real Estate Rental Agent Relationship Specialty Start Date End Date Bernardino Min Chi [address] [place] [address] PCP - General Gerontology 12/25/22 12/27/23 Cr Gibbs [address] [place] [address] Physician Internal Medicine 11/19/16 Nenita Solorio MD [address] [place] [address] Physician Radiation Oncology 03/26/17 Domo Frazier DO [address] [place] [address] Physician Hematology/Oncology 06/04/23 Mason Quintero, RN Specialty Bit Grinder Oncology 06/04/23 Medicine, [facility] [address] [place] [address] Palliative Medicine Provider 07/08/23 Real Estate Rental Agent Relationship Specialty Start Date End Date Pako, Bernardino Chi [address] [place] [address] PCP - General Gerontology 12/25/22 12/27/23 Terry Mccann [address] [place] [address] PCP - General Internal Medicine 12/28/23 Cr Gibbs [address] [place] [address] Physician Internal Medicine 11/19/16 Nenita Solorio MD [address] [place] [address] Physician Radiation Oncology 03/26/17 Domo Frazier DO [address] [place] [address] Physician Hematology/Oncology 06/04/23 Mason Quintero, MONTSE Specialty Bit Grinder Oncology 06/04/23 Medicine, [facility] [address] [place], [place] [address]65[address] Palliative Medicine Provider 07/08/23 Real Estate Rental Agent Relationship Specialty Start Date End Date Terry Mccann [facility] [place] [address] PCP - General Internal Medicine 12/28/23 Cr Gibbs [address] [phone] Physician Internal Medicine 11/19/16 Nenita Solorio MD [address] [place] [address] Physician Radiation Oncology 03/26/17 Domo Frazier DO [address] [place], [place] [address] Physician Hematology/Oncology 06/04/23 Mason Quintero, RN Specialty Bit Grinder Oncology 06/04/23 Medicine, [facility] [address] [place] [address] Palliative Medicine Provider 07/08/23 Real Estate Rental Agent Relationship Specialty Start Date End Date Terry Mccann [address] [place] [address] PCP - General Internal Medicine 12/28/23 Cr Gibbs [address] [address] Physician Internal Medicine 11/19/16 Nenita Solorio MD [address] [place], [place] 840331 Physician Radiation Oncology 03/26/17 Domo Frazier DO [address] [place] [address] Physician Hematology/Oncology 06/04/23 Mason Quintero, RN Specialty Bit Grinder Oncology 06/04/23 Medicine, [facility] [address] [place] [address] Palliative Medicine Provider 07/08/23 Real Estate Rental Agent Relationship Specialty Start Date End Date Terry Mccann [facility] [place] [address] PCP - General Internal Medicine 12/28/23 Cr Gibbs [address] [place] [address] Physician Internal Medicine 11/19/16 Nenita Solorio MD [address] [place] [address] Physician Radiation Oncology 03/26/17 Domo Frazier DO [address] [place] [address] Physician Hematology/Oncology 06/04/23 Mason Quintero, RN Specialty Bit Grinder Oncology 06/04/23 Medicine, [facility] [address] [place] [id number] Palliative Medicine Provider 07/08/23 Real Estate Rental Agent Relationship Specialty Start Date End Date Terry Mccann [address] [place], [place] [address] PCP - General Internal Medicine 12/28/23 Cr Gibbs [address] [place] [address] Physician Internal Medicine 11/19/16 Nenita Solorio MD [address] [place] [address] Physician Radiation Oncology 03/26/17 Domo Frazier DO [address] [place] [address] Physician Hematology/Oncology 06/04/23 Mason Quintero, RN Specialty Bit Grinder Oncology 06/04/23 Medicine, [facility] Palliative Medicine Provider 07/08/23 Real Estate Rental Agent Relationship Specialty Start Date End Date Terry Mccann [address] [place], [place] [id number] PCP - General Internal Medicine 12/28/23 Cr Gibbs [address] [place] [address] Physician Internal Medicine 11/19/16 Nenita Solorio MD [address] [place] [address] Physician Radiation Oncology 03/26/17 Domo Frazier DO [address] [address] Physician Hematology/Oncology 06/04/23 Mason Quintero, MONTSE Specialty Bit Grinder Oncology 06/04/23 Medicine, [facility] Palliative Medicine Provider 07/08/23 Real Estate Rental Agent Relationship Specialty Start Date End Date Rosmery Horn MD [address] [place] [address] PCP - General Internal Medicine 12/16/18 12/24/22 Cr Gibbs [address] [facility] [address] [address] [facility] [address] [place] [address] Physician Internal Medicine 11/19/16 Nenita Solorio MD [address] [place] [address] Physician Radiation Oncology 03/26/17 Real Estate Rental Agent Relationship Specialty Start Date End Date Bernardino Min Chi [address] [place] [address] PCP - General Gerontology 12/25/22 Cr Gibbs [address] [place] [id number] Physician Internal Medicine 11/19/16 Nenita Solorio MD [address] [place] [address] Physician Radiation Oncology 03/26/17 Domo Frazier DO [address] [place] [address] Physician Hematology/Oncology 06/04/23 Mason Quintero, MONTSE Specialty Bit Grinder Oncology 06/04/23 [facility], [facility] [address] [place] [address] Palliative Medicine Provider 07/08/23 Real Estate Rental Agent Relationship Specialty Start Date End Date Rosmery Horn MD [address] [place] [address] PCP - General 08/30/19 Real Estate Rental Agent Relationship Specialty Start Date End Date Terry Mccann MD [address] [place] [address] PCP - General Hospitalist 02/25/24 Real Estate Rental Agent Relationship Specialty Start Date End Date Terry Mccann MD [address] [place] [id number] PCP - General Hospitalist 02/25/24 Real Estate Rental Agent Relationship Specialty Start Date End Date Terry Mccann MD [address] [place] [id number] PCP - General Hospitalist 02/25/24 Real Estate Rental Agent Relationship Specialty Start Date End Date Terry Mccann MD [address] [place] [id number] PCP - General Hospitalist 02/25/24 Real Estate Rental Agent Relationship Specialty Start Date End Date Guillermo Min MD [address] [facility] [address] [address] PCP - General Gerontology 02/13/25 Real Estate Rental Agent Relationship Specialty Start Date End Date Terry Mccann [address] [place] [address] [id number] PCP - General Internal Medicine 12/28/23 Cr Gibbs [address] [id number] Physician Internal Medicine 11/19/16 Nenita Solorio MD [address] [place] [address] Physician Radiation Oncology 03/26/17 Domo Frazier DO [address] [place], [place] [id number] Physician Hematology/Oncology 06/04/23 Mason Quintero RN Specialty Bit Grinder Oncology 06/04/23 Medicine, [facility] Palliative [...] BE BASED ON THE PRIMARY CLINICAL RECORDS. [employer] [facility]. provides no warranty or guarantee of the accuracy or completeness of information in this document.
== END | disposition home or self-care (01) ==
LOC: POLAB3 17:08
PROVIDERS: PCP Family Medicine Geriatric Medicine; Visit Provider Family Medicine Geriatric Medicine
DX: E03.9 Hypothyroidism, unspecified (principal)
CPT/HCPCS: 36415; 80053; 84443; 85025

== ENCOUNTER 2025-03-06 19:05 | Inpatient (IN) | payer MEDICARE, SELFPAY ==
[2025-03-06] VITALS (7 sets, daily range): BP systolic 157–200; BP diastolic 75–105; PULSE 65–100; RESP 18–27; TEMP 36.6–36.8; O2SAT 92–96; BMI 18.5; BMI 19.8
--- NOTE | 2025-03-06 20:17 | CT_ITS ---
PROCEDURE: SPINE CERVICAL WITHOUT CONTRAS 03/06/2025 REASON FOR EXAM: FALL TECHNIQUE: SPINE CERVICAL WITHOUT CONTRAS Coronal and Sagittal reconstruction series were provided. One or more dose reduction techniques were used (e.g., Automated exposure control, adjustment of the mA and/or kV according to patient size, use of iterative reconstruction technique. RADIATION DOSE SUMMARY: DLP: 1095.43 mGycm COMPARISON: 10/28/2021 FINDINGS: No acute fracture or subluxation. Congenitally unfused posterior arch of C1 noted. Likely positional and/or degenerative straightening of the cervical lordosis. Multilevel spondylotic changes with varying degrees of disc space narrowing, endplate sclerosis and multiple small subchondral cysts and/or Schmorl's nodes, anterior osteophytosis, uncovertebral spurring and hypertrophic facet arthropathy. Dystrophic calcification of the supraspinous ligament at C7-T1. No prevertebral soft tissue swelling. Atherosclerotic calcification at the carotid artery bifurcations. Partially imaged right IJ approach central venous catheter. Stable appearing spiculated right apical pleural-parenchymal scarring with calcification. CT/Spine Cervical without Contras IMPRESSION: No acute cervical spine fracture or subluxation. Multilevel degenerative changes, as described. Reading Location: [id number]
--- NOTE | 2025-03-06 20:17 | CT_ITS ---
PROCEDURE: BRAIN/HEAD WITHOUT CONTRAST 03/06/2025 REASON FOR EXAM: CONFUSION TECHNIQUE: BRAIN/HEAD WITHOUT CONTRAST Coronal and Sagittal reconstruction series were provided. One or more dose reduction techniques were used (e.g., Automated exposure control, adjustment of the mA and/or kV according to patient size, use of iterative reconstruction technique. RADIATION DOSE SUMMARY: DLP: 1095.43 mGycm COMPARISON: 03/05/2025. FINDINGS: No acute intracranial hemorrhage, extra-axial collection, mass effect or evidence of acute infarct. Moderate generalized brain parenchymal volume loss with ex vacuo ventricular enlargement. Mild-moderate chronic microangiopathic changes, notably within old lacunar infarct in the left basal ganglia region involving the left putamen. Atherosclerotic calcification of intracranial vasculature. Prior bilateral cataract surgery, and senile scleral plaques. Intact skull base and calvarium. Biparietal calvarial thinning. Well-aerated paranasal sinuses and bilateral mastoid air cells. CT/Brain/Head without Contrast IMPRESSION: 1. No acute intracranial abnormality. 2. Moderate volume loss and chronic small-vessel ischemic changes. Reading Location: [id number]
--- NOTE | 2025-03-06 20:17 | EKG12_ITS ---
Test Reason : CONFUSION Blood Pressure : */* mmHG Vent. Rate : 96 BPM Atrial Rate : 96 BPM P-R Int : 152 ms QRS Dur : 70 ms QT Int : 362 ms P-R-T Axes : 28 -34 17 degrees QTcB Int : 457 ms Sinus rhythm with Premature atrial complexes Left axis deviation Minimal voltage criteria for LVH, may be normal variant ( R in aVL ) Septal infarct (cited on or before 19-Oct-2022) Abnormal ECG Confirmed by MIKE SAN, HAI ([id number]), commissioning editor MOOKIE BECERRIL ([id number]) on 03/08/2025 6:36:21 AM Referred By: Confirmed By: HAI MCKEON MD
--- NOTE | 2025-03-06 20:32 | EX.ED.DYSGE1 ---
HPI History of Present Illness Chief Complaint: Confusion Narrative Narrative: Chief complaint and HPI: Confusion. 79-year-old female with past medical history of DVT on Xarelto, hypothyroidism presents for evaluation of confusion. History taken by patient as well as family member in the room. On Wednesday patient had a mechanical fall. States she slipped in the bathroom and fell backwards and hit her head. States she was able to get off the floor by herself. She was not evaluated in the emergency department. Daughter states since the fall she has been having increased weakness and confusion. They saw the PCP in the office yesterday in which she had a CT head and labs ordered. Daughter states they were told she was dehydrated. Daughter states that the confusion has continued including saying bizarre things as well as taking a long time to think of her answers. Patient does not feel confused. She denies any fever, chills, URI symptoms, chest pain abdominal pain, nausea, vomiting, diarrhea, dysuria. Denies any extremity, back, neck pain from the fall. Review of systems: See HPI Medications: As listed on the chart Allergies: As listed on the chart PFSH: Per chart Vital signs: As listed on the chart. Reviewed. Physical exam: Gen: A&O x3 although take a long time to figure out answers did not know the holiday we just had, NAD Head: Normocephalic, small posterior scalp hematoma Eyes: No sclera icterus, left eye reactive to light, blind in right eye, EOMI ENT: TMs clear BL, mildly dry mucous membranes, face atraumatic without tenderness Neck: Trachea midline, No JVD, Nontender CV: RRR, no murmurs, no chest wall TTP Resp: Lungs CTA BL, no w/r/c GI: Abd soft, non-distended, non-tender, no r/r/g Musc: Full ROM, no deformity, no spinal TTP, no bryce step-offs Skin: Warm, dry, intact Neuro: Alert, grossly intact, sensation intact Psych: Cooperative, appropriate mood and affect [facility] Medical History Brain bleed Cancer Depression DVT (deep venous thrombosis) Glaucoma Hypertension Hypothyroidism Multiple sclerosis Presence of IVC filter Pulmonary embolism Pulmonary embolism Pulmonary nodule Uterine cancer Home Medications ?Medication ?Instructions ?Recorded ?Last Taken ?Type sertraline 100 mg tablet 125 mg PO DAILY mental health 09/08/18 06/28/23 07:55 History brimonidine 0.2 % eye drops 2 drp RIGHT EYE TID glaucoma 08/31/22 06/29/23 05:35 History levothyroxine 25 mcg tablet 25 mcg PO DAILY thyroid 08/31/22 06/29/23 05:35 History methenamine hippurate 1 gram tablet 1 g PO BID Bladder 08/31/22 06/28/23 20:50 History mirtazapine 15 mg tablet 15 mg PO QHS sleep 08/31/22 06/28/23 20:50 History latanoprost 0.005 % eye drops 1 drp EACH EYE HS Eye health 09/11/22 06/28/23 20:50 History rivaroxaban 20 mg tablet (Xarelto) 20 mg PO DINNER BLOOD THINNER 30 09/16/22 06/28/23 16:40 Rx days #30 tabs acetaminophen 500 mg tablet 1,000 mg (2 x 500 mg) PO Q6H PRN 07/05/23 Unknown Rx PRN Pain Score 1-10 #0 tabs Allergy/AdvReac Type Severity Reaction Status Date / Time doxorubicin Allergy Severe Anaphylaxis Verified 03/06/25 19:07 codeine Allergy Hives Verified 03/06/25 19:07 methylprednisolone Allergy Hives Verified 03/06/25 19:07 Sulfa (Sulfonamide Allergy Hives Verified 03/06/25 19:07 Antibiotics) erythromycin base AdvReac Upset Verified 03/06/25 19:07 Stomach Family History Other Dementia Heart disease Surgical History H/O: hysterectomy History of section History of embolic filter insertion Social History household members: none housing: house Smoking Status: Never smoker alcohol intake: never substance use type: does not use EXAM Physical Exam Const Vital Signs: 03/06/25 19:06 03/06/25 20:07 03/06/25 21:07 Temperature 98.3 F 97.9 F 97.8 F Temperature Source Oral Temporal Temporal Pulse Rate 100 81 80 Respiratory Rate 18 27 H 23 H Blood Pressure 157/75 H 175/80 H 189/87 H Blood Pressure Mean 102 111 121 Pulse Ox 92 94 94 Oxygen Delivery Method Room Air Room Air Room Air MDM MDM MDM Narrative Medical decision making narrative: 79-year-old female with past medical history of DVT on Xarelto, hypothyroidism presents for evaluation of confusion. Patient had a mechanical fall on Wednesday. She takes blood thinners. Hit her head. Since then has confused and weak. History was taken by patient as well as daughter see HPI. Differential diagnosis includes but is not limited to intracranial abnormality, electrolyte abnormality, RY, UTI, ACS. On chart review, patient had a CT head performed yesterday without any acute abnormality. Laboratory workup showed renal insufficiency with creatinine of 1.33. Although patient just had CT head performed given that family member is endorsing increased confusion will repeat CT head in case changes were obtained. Confusion workup ordered. Patient without leukocytosis. Patient has baseline anemia. Platelet count unremarkable. BMP is consistent with worsening renal insufficiency.. Creatinine is 1.49. Worsening yesterday her creatinine was 1.33. Prior to that her creatinine was normal in 2022. Family does not know her baseline. Lactic acid unremarkable. Troponin 35. Will get repeat. Patient currently not endorsing any chest pain. CT of the cervical spine shows no acute fracture. Patient have degenerative changes. CT of the brain shows no acute intra-abdominal pathology. UA is positive for UTI. Urine culture sent. On chart review, patient grew out protease in her urine. It was sensitive to Rocephin. Rocephin ordered. Patient's worsening confusion is likely secondary to UTI and dehydration. Her and her family were updated of all the results and the plan for admission. Her blood pressure has been slowly increasing here in the emergency department. She is denying any chest pain or shortness of breath. She has no history of hypertension. Hydralazine ordered. Patient was discussed with hospitalist service who accepted admission. EKG: Interpreted by me/EM physician: EKG shows normal sinus rhythm with PACs. Nonspecific ST changes Diagnostic: Interpreted by me/EM physician: Chest x-ray without pneumonia, effusion, cardiomegaly, pneumothorax. Radiology in agreement. Impression: 1. Encephalopathy, multifactorial 2. UTI 3. RY versus renal insufficiency 4. Recent mechanical fall with closed head injury anticoagulation Lab Data Labs: Laboratory Results - last 24 hr 03/06/25 03/06/25 03/06/25 20:55 21:10 21:55 WBC 8.8 RBC 4.51 Hgb 10.8 L Hct 35.7 L MCV 79.2 L MCH 23.9 L MCHC 30.3 L RDW Std Deviation 49.1 H RDW Coeff of Lauro 17.3 H Plt Count 405 MPV 9.2 Immature Gran % (Auto) 0.600 Neut % (Auto) 68.2 Lymph % (Auto) 17.0 L Villalba % (Auto) 11.4 H Eos % (Auto) 2.5 Baso % (Auto) 0.3 Absolute Neuts (auto) 6.0 Absolute Lymphs (auto) 1.49 Nucleated RBC % 0 Sodium 138 Potassium 4.2 Chloride 95 L Carbon Dioxide 30.3 Anion Gap 13 BUN 26 H Creatinine 1.49 H Estim Creat Clear Calc 21.51 L Est GFR (MDRD) Non-Af 36 L BUN/Creatinine Ratio 17.7 Glucose 122 H Lactic Acid 1.3 Calcium 9.5 Troponin T High Sens 35 H Urine Color Yellow Urine Clarity Sl. Cloudy Urine pH 7.0 Ur Specific [place] 1.015 Urine Protein 100 H Urine Glucose (UA) Normal Urine Ketones Negative Urine Occult Blood 10 H Urine Nitrite Negative Urine Bilirubin Negative Urine Urobilinogen Normal Ur Leukocyte Esterase 100 H Urine RBC 0-5 SEEN Urine WBC 25-50 SEEN Ur Squamous Epith Cells 0-5 SEEN Ur Transition Epith Cell 5-10 SEEN Urine Bacteria 1+ Hyaline Casts 0-5 SEEN Urine Mucus 0 SEEN Radiography Diagnostic Testing: Clinical Impression(s) from Imaging Studies Brain CT 03/06/25 20:17 IMPRESSION: 1. No acute intracranial abnormality. 2. Moderate volume loss and chronic small-vessel ischemic changes. Reading Location: [facility] Cervical Spine CT 03/06/25 20:17 IMPRESSION: No acute cervical spine fracture or subluxation. Multilevel degenerative changes, as described. Reading Location: [facility] Chest X-Ray 03/06/25 21:15 IMPRESSION: Probable mild bibasilar atelectasis. Reading Location: [place] [id number] Discharge Plan Triage Chief Complaint: Confusion ED Provider: Geremias Logan Dx/Rx/DC Orders Prescriptions: No Action sertraline 100 MG tablet 125 mg PO DAILY Patient Comments: TAKE 1 TABLET BY MOUTH EVERY DAY levothyroxine 25 mcg tablet 25 mcg PO DAILY methenamine hippurate 1 gram tablet 1 g PO BID Patient Comments: TAKE 1 TABLET BY MOUTH TWICE A DAY WITH MEALS brimonidine 0.2 % drops 2 drp RIGHT EYE TID Patient Comments: INSTILL 1 DROP INTO RIGHT EYE 3 TIMES A DAY mirtazapine 15 mg tablet 15 mg PO QHS Patient Comments: 1 tablet by mouth once a day latanoprost 0.005 % drops 1 drp EACH EYE HS Xarelto 20 mg Tablet 20 mg PO DINNER 30 Days Qty: 30 0RF acetaminophen 500 mg Tablet 1,000 mg PO Q6H PRN PRN (Reason: Pain Score 1-10) Qty: 0 0RF Primary Care Provider: Bernardino Min Chi Referrals: Bernardino Min Chi, MD [Primary Care Provider] - Print Language: Albanian
--- NOTE | 2025-03-06 21:15 | RAD_ITS ---
PROCEDURE: CHEST PA AND LATERAL 03/06/2025 REASON FOR EXAM: CONFUSION TECHNIQUE: CHEST PA AND LATERAL COMPARISON: 03/12/2023. FINDINGS: Right chest infusion port. The lungs are hypoaerated. Mild bibasilar linear opacities favoring atelectasis. No acute osseous abnormalities. RAD/Chest PA and Lateral IMPRESSION: Probable mild bibasilar atelectasis. Reading Location: [place] [address]
[2025-03-06 21:21] LABS: Hematocrit 35.7 % (37-47); Hemoglobin 10.8 g/dL (12.0-15.0); Immature Granulocytes Count 0.050 X10^3/uL (0.0-0.0); Mean Corp Hgb Conc 30.3 g/dL (32-36); Mean Corpuscular Volume 79.2 fL (81-99); Mean Platelet Vol. 9.2 fl (6.2-12.0); NRBC Flagged by Analyzer 0 % (0-5); Platelet Count 405 K/mm3 (150-450); RBC Distribution Width CV 17.3 % (11.6-14.6); RBC Distribution Width SD 49.1 fl (35.1-43.9); Red Blood Count 4.51 M/mm3 (4.2-5.4); White Blood Count 8.8 K/mm3 (4.4-11.0)
[2025-03-06] MEDS: 0.9% Normal Saline (1000mL) 1,000 ML 1000 ML IV (21:31)
[2025-03-06 21:55] LABS: Anion Gap 13 (5-15); BUN 26 mg/dL (4-19); BUN/Creat Ratio 17.7 RATIO (10-20); Calcium,Total 9.5 mg/dL (7.6-11.0); Carbon Dioxide 30.3 mmol/L (21.0-32.0); Chloride 95 mmol/L (98-108); Estimated Creatinine Clearance 21.51 ml/min (50-250); Glucose 122 mg/dL (70-99); Potassium 4.2 mmol/L (3.3-5.1); Troponin T High Sensitivity 35 ng/L (<=14)
[2025-03-06 21:59] LABS: Mucous, Urine 0 SEEN /hpf (<or=2+)
[2025-03-06 22:03] LABS: Color, Urine Yellow (Yellow); Glucose, Dipstick Normal (Normal); Ketone-Dipstick Negative (Negative); Leukocyte Esterase-Dipstick 100 /ul (Negative); Nitrite-Dipstick Negative (Negative); Occult Blood-Urine 10 /ul (Negative); Protein-Dipstick 100 mg/dl (Negative); Specific Gravity, Urine 1.015 (1.002-1.030); Urine Bilirubin Dipstick Negative (Negative)
[2025-03-06 22:12] LABS: Red Blood Cells-Urine 0-5 SEEN /hpf (0-5)
[2025-03-06 22:13] LABS: Squamous Epithelial Cells - UA 0-5 SEEN /hpf (5-10)
[2025-03-06 22:15] LABS: Transitional Epithelial - Ur 5-10 SEEN /hpf (0-5)
--- NOTE | 2025-03-06 22:29 | PCM.HP.STD ---
HPI - General General Date of Admission: 03/06/25 Date of Service: 03/06/25 Chief Complaint: Fall with worsening weakness and confusion HPI Narrative LAKESHIA OSEGUERA, is a 79 F who presented to [facility] ED on 03/06/2025 with a recent mechanical fall at home with worsening weakness and confusion. Patient lives at home by herself. Son and [id number] live nearby. She was last hospitalized here in May 2023. She was noted then to have declining functional status with multiple falls in setting of dehydration with multiple medical comorbidities including MS and stage IV uterine cancer. She was discharged to the TCU and then eventually discharged home. Patient lives in [place] and has been seen at [facility] several times since then per [facility] records. 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 More recently she was seen in the [facility] ED on 02/13 for UTI symptoms. UA was mildly infectious appearing and patient was started on antibiotics, but urine culture showed no growth. Patient reported frequent UTI symptoms at that time. There apparently was a plan for cystoscopy with Botox for symptom management but it does not appear this has been done. Importantly, family has decided on no further treatment for the patient if the cancer was to recur and wished for no biopsy to be done with that cystoscopy. Patient medical history is also significant for DVT on Xarelto. She had a mechanical fall at home on Wednesday where she slipped in the bathroom and fell backwards and hit her head. She was able to get off the floor by herself and initially showed no concerning symptoms. However, family noted that she had increasing weakness with confusion so they saw patient's PCP in the office on 03/05. CT head was ordered and was negative. Labs notable for RY but otherwise fairly benign. Family noted that patient continued to appear more confused today so they brought her in for further evaluation. CT brain and C-spine here were unremarkable. Labs notable for creatinine 1.49, slightly up from 1.33 yesterday and up from prior baseline of 0.7 back in 2022. Given RY with confusion and weakness, hospitalist was contacted for admission. I saw the patient at bedside in the ED, son and [id number] were present. Patient was mildly fatigued appearing but otherwise laying back comfortably in bed and in no acute distress. She was answering questions appropriately for me and was alert and oriented x 3. Patient denied feeling confused. She noted poor p.o. intake over the past few weeks and some generalized weakness but stated she was still able to take care of herself at home. However, son and [id number] noted that patient has had worsening functional status now for the past few months and they are concerned about her being able to care for herself at home. Patient denies any acute pain or discomfort. Denies any other acute concerns currently. Will be admitted for further management. [facility] Medical History (Updated 03/06/25 @ 22:58 by Priya Chu) Osteoporosis Non-smoker Cancer Depression Hypothyroidism Pulmonary embolism DVT (deep venous thrombosis) Hypertension Cancer, uterine Multiple sclerosis Glaucoma Presence of IVC filter Pulmonary embolism Pulmonary nodule Uterine cancer Multiple sclerosis Brain bleed Home Medications ?Medication ?Instructions ?Recorded ?Last Taken ?Type sertraline 100 mg tablet 125 mg PO DAILY mental health 09/08/18 06/28/23 07:55 History brimonidine 0.2 % eye drops 2 drp RIGHT EYE TID glaucoma 08/31/22 06/29/23 05:35 History levothyroxine 25 mcg tablet 25 mcg PO DAILY thyroid 08/31/22 06/29/23 05:35 History methenamine hippurate 1 gram tablet 1 g PO BID Bladder 08/31/22 06/28/23 20:50 History mirtazapine 15 mg tablet 15 mg PO QHS sleep 08/31/22 06/28/23 20:50 History latanoprost 0.005 % eye drops 1 drp EACH EYE Eye health 09/11/22 06/28/23 20:50 History rivaroxaban 20 mg tablet (Xarelto) 20 mg PO DINNER BLOOD THINNER 30 09/16/22 06/28/23 16:40 Rx days #30 tabs acetaminophen 500 mg tablet 1,000 mg (2 x 500 mg) PO Q6H PRN 07/05/23 Unknown Rx PRN Pain Score 1-10 #0 tabs Allergy/AdvReac Type Severity Reaction Status Date / Time doxorubicin Allergy Severe Anaphylaxis Verified 03/06/25 19:07 codeine Allergy Hives Verified 03/06/25 19:07 methylprednisolone Allergy Hives Verified 03/06/25 19:07 Sulfa (Sulfonamide Allergy Hives Verified 03/06/25 19:07 Antibiotics) erythromycin base AdvReac Upset Verified 03/06/25 19:07 Stomach Family History Other Dementia Heart disease Surgical History History of embolic filter insertion History of section H/O: hysterectomy Social History household members: none housing: house Smoking Status: Never smoker alcohol intake: never substance use type: does not use ROS Constitutional Constitutional: Reports fatigue and weakness; Denies chills or fever(s) Eyes Eyes: Denies change in vision Cardiovascular Cardiovascular: Denies chest pain or lightheadedness Respiratory/Chest Respiratory/Chest: Denies shortness of breath at rest Gastrointestinal Gastrointestinal: Denies abdominal pain, constipation, diarrhea, nausea or vomiting Genitourinary Genitourinary: Reports burning urination and dysuria Musculoskeletal Musculoskeletal: Denies arthralgias or myalgias Neurologic Neurologic: Denies dizziness, focal weakness or headache(s) Vital Signs Vital Signs Vital Signs: 03/06/25 19:06 03/06/25 20:07 03/06/25 21:07 Temperature 98.3 F 97.9 F 97.8 F Temperature Source Oral Temporal Temporal Pulse Rate 100 81 80 Respiratory Rate 18 27 H 23 H Blood Pressure 157/75 H 175/80 H 189/87 H Blood Pressure Mean 102 111 121 Pulse Ox 92 94 94 Oxygen Delivery Method Room Air Room Air Room Air Weight Weight: 43.091 kg Body Mass Index (BMI) 18.5 Physical Exam Const alert, oriented x3 and no apparent distress Constitutional Narrative: Elderly female, thin and cachectic appearing, mildly fatigued appearing, otherwise laying back comfortably in bed, alert and oriented x 3, answering questions with short appropriate responses, in no acute distress. General Appearance: cooperative and comfortable HEENT normocephalic, head/scalp atraumatic, hearing grossly normal bilaterally and nasal mucous membranes and turbinates normal HEENT Narrative: Dry mucous membranes. Eyes PERRL, EOMs intact bilaterally and conjunctivae normal Neck full ROM Chest inspection of chest normal Resp normal respiratory effort, normal air movement, no use of accessory muscles and clear to auscultation bilaterally Cardio regular rate, regular rhythm, no murmurs and peripheral pulses 2+ throughout GI normal to inspection, nondistended, normoactive bowel sounds, soft to palpation, non-tender and non-distended Back/Spine normal ROM Extremity normal to inspection, full ROM and no pedal edema Skin no rashes or lesions noted Neuro moves all extremities and no focal motor deficits Speech: speech normal Motor Exam: strength 5/5 throughout Psych mental status grossly normal Results Lab / Micro Data 03/06/25 20:55 03/06/25 20:55 Labs: Laboratory Results - last 24 hr 03/06/25 20:55: WBC 8.8, RBC 4.51, Hgb 10.8 L, Hct 35.7 L, MCV 79.2 L, MCH 23.9 L, MCHC 30.3 L, RDW Std Deviation 49.1 H, RDW Coeff of Lauro 17.3 H, Plt Count 405, MPV 9.2, Immature Gran % (Auto) 0.600, Neut % (Auto) 68.2, Lymph % (Auto) 17.0 L, [place] % (Auto) 11.4 H, Eos % (Auto) 2.5, Baso % (Auto) 0.3, Absolute Neuts (auto) 6.0, Absolute Lymphs (auto) 1.49, Nucleated RBC % 0, Sodium 138, Potassium 4.2, Chloride 95 L, Carbon Dioxide 30.3, Anion Gap 13, BUN 26 H, Creatinine 1.49 H, Estim Creat Clear Calc 21.51 L, Est GFR (MDRD) Non-Af 36 L, BUN/Creatinine Ratio 17.7, Glucose 122 H, Calcium 9.5, Troponin T High Sens 35 H 03/06/25 21:10: Lactic Acid 1.3 03/06/25 21:55: Urine Color Yellow, Urine Clarity Sl. Cloudy, Urine pH 7.0, Ur Specific [place] 1.015, Urine Protein 100 H, Urine Glucose (UA) Normal, Urine Ketones Negative, Urine Occult Blood 10 H, Urine Nitrite Negative, Urine Bilirubin Negative, Urine Urobilinogen Normal, Ur Leukocyte Esterase 100 H, Urine RBC 0-5 SEEN, Urine WBC 25-50 SEEN, Ur Squamous Epith Cells 0-5 SEEN, Ur Transition Epith Cell 5-10 SEEN, Urine Bacteria 1+, Hyaline Casts 0-5 SEEN, Urine Mucus 0 SEEN Imaging Radiology Impression Brain CT 03/06/25 20:17 IMPRESSION: 1. No acute intracranial abnormality. 2. Moderate volume loss and chronic small-vessel ischemic changes. Reading Location: [facility] Cervical Spine CT 03/06/25 20:17 IMPRESSION: No acute cervical spine fracture or subluxation. Multilevel degenerative changes, as described. Reading Location: [facility] Chest X-Ray 03/06/25 21:15 IMPRESSION: Probable mild bibasilar atelectasis. Reading Location: [id number] Assessment & Plan Assessment/Plan (1) Weakness: (2) Declining functional status: (3) Falls frequently: PLAN: Plan Patient is a 79-year-old female who presented to [facility] ED on 03/06/2025 with recent fall with worsening weakness and confusion. 1. Acute on chronic debility with recent mechanical fall and reported confusion ? Admit under inpatient status to PCU. PT/OT/case management consulted. Had mechanical fall at home and reported hitting her head. Is on Xarelto as below. CT brain negative x 2 on 03/05 and 03/06. Family reported confusion but patient alert and oriented x 3 on admit. Suspect patient may have mild concussion. Importantly has had worsening functional status over the past few months per family. Lives at home alone. Suspect patient will require SNF placement on discharge, appreciate therapy recommendations. 2. Elevated serum creatinine ? Creatinine 1.49 on admit. Last known baseline was 0.7-0.8 back in 2022. UA with 100 protein and urine protein to creatinine ratio very elevated at 1363. Renal ultrasound ordered. Suspect patient may be developing chronic kidney disease potentially due to untreated hypertension as below. Given 1 L of IV fluids in the ED, will hold on further IV fluids and encourage p.o. intake. Follow-up a.m. BMP and monitor urine output. 3. Accelerated hypertension with elevated troponins ? Patient with blood pressure in the 190s to 200s systolic in the ED. No known history of hypertension, not on any antihypertensive therapy at home. Notably on Xarelto and CT brain negative x 2 on 03/05 and 03/06 for intracranial bleed. No focal neurological deficits noted on exam and patient A&O x 3 so lower concern for acute CVA at this time. Troponin trend 35 > 33. Will start amlodipine 5 mg daily and treat with IV hydralazine as needed for SBP greater than 170. Echo ordered for further evaluation. 4. Suspected malnutrition ? Nutrition consulted. BMI 19 on admit inpatient cachectic appearing with poor p.o. intake recently. Appreciate nutrition recommendations. 5. 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 Was seen in outside ED in January for UTI symptoms and urine culture was negative. Apparent plan was for cystoscopy for Botox injection for symptom control but does not appear this has been done yet. No inpatient needs, continue close outpatient follow-up. Chronic medical conditions: ? Hypothyroidism: Continue home Synthroid. ? Mood disorder: Stable. Continue home sertraline and mirtazapine at night. ? History of DVT: Continue home Xarelto. Notably does have IVC filter in place as well. ? Glaucoma: Continue home eyedrops. ? Mild chronic microcytic anemia: Hemoglobin 10.8, MCV 79 on admit. Stable at baseline. ? History of uterine cancer: In remission as evidenced by PET/CT findings in 03/2024, see HPI for further details. Not on any active therapy and family reports the patient will not undergo any further therapy for this if she has recurrence in the future. ? Reported history of MS: Not on home medications and history is unclear. DVT prophylaxis: Not indicated, on Xarelto CODE STATUS: DNR CCA, DNI Expected disposition: TBD Total clinical time spent by myself addressing the patient's medical issues, reviewing all the data, and collaborating with patient's care team: 75 minutes. Charges/Coding Visit Charges Inpatient E&M: 24538 Init Hosp L3
[2025-03-06 23:33] LABS: Creatinine, Urine (random) 102.00 mg/dL (28.00-217.00)
[2025-03-06 23:35] LABS: Protein, Urine (Random) 139.0 mg/dL (0.0-12.0); Protein:Creat Ratio 1363 mg/g CRE (0-200)
[2025-03-07] VITALS (10 sets, daily range): BP systolic 143–177; BP diastolic 77–86; PULSE 88–98; RESP 16–18; TEMP 36.5–37.6; O2SAT 91–93
--- NOTE | 2025-03-07 | US_ITS ---
EXAM: US Retroperitoneal Limited, Renal CLINICAL INDICATION: RY, R/O POSTOBSTRUCTIVE TECHNIQUE: Real-time limited ultrasound of the retroperitoneum with image documentation. COMPARISON: No relevant prior studies available. FINDINGS: RIGHT KIDNEY: 2 mm calculus of the right renal pelvis. No hydronephrosis. The right kidney measures 8.1 x 4.7 x 4.6 cm. LEFT KIDNEY: Left renal pelvic calculi, largest measuring up to 3 mm. The left kidney measures 9.3 x 3.6 x 3.4 cm. BLADDER: Normal-appearing urinary bladder. Prevoid volume 125 cc. US/Kidney and Bladder IMPRESSION: Bilateral nephrolithiasis without hydronephrosis. Reading [facility]
[2025-03-07] MEDS: 0.9% Saline Lock 10 ML Syringe IV ×3 (00:22→21:09)
[2025-03-07 00:37] LABS: Troponin T High Sens 2 HR 33 ng/L (<=14)
--- NOTE | 2025-03-07 01:25 | ECHOD_ITS ---
Reason For Study Reason For Study: HTN Procedure This was a 2D Doppler, Color Flow transthoracic echocardiogram. Exam performed portable in patient room. Left Ventricle Normal LV size. The global longitudinal strain = -17.8 % (normal). Stage 1 diastolic dysfunction. The left ventricular ejection fraction is 60 %. No regional wall motion abnormalities noted. Right Ventricle Normal RV size. Normal systolic function. Atria Normal left atrium. Normal right atrium. Mitral Valve Normal mitral valve. Tricuspid Valve Normal tricuspid valve. Aortic Valve Trisinus/trileaflet aortic valve. Mild focal aortic valve calcification. Pulmonic Valve Normal pulmonic valve. Great Vessels Normal aortic root. The pulmonary artery is normal size. Normal inferior vena cava. Pericardium/Pleural No pericardial effusion. MMode/2D Measurements & Calculations LVIDd: 3.5 cm IVSd: 1.1 cm LVOT diam: 2.0 cm LVIDs: 2.4 cm LVPWd: 1.0 cm LVOT area: 3.3 cm2 RVDd: 3.1 cm FS: 33.7 % Ao root diam: 3.8 cm LAV(MOD-bp): 30.7 ml LVAd ap4: 19.6 cm2 LAV(MOD-bp) Indexed: 22.0 ml/m2 LVLd ap4: 6.5 cm LAV(MOD-sp2): 34.4 ml EDV(MOD-sp4): 48.1 ml LAV(MOD-sp4): 22.2 ml EDV(sp4-el): 50.1 ml LVAs ap4: 11.4 cm2 LVLs ap4: 5.4 cm ESV(MOD-sp4): 20.8 ml ESV(sp4-el): 20.7 ml EF(MOD-sp4): 56.7 % EF(sp4-el): 58.8 % SV(MOD-sp4): 27.3 ml SV(sp4-el): 29.5 ml LA A4 area: 10.2 cm2 SI(MOD-sp4): 19.5 ml/m2 LA dimension(2D): 2.8 cm RA A4 area: 8.4 cm2 TAPSE: 1.7 cm Time Measurements MV dec time: 0.28 sec Doppler Measurements & Calculations MV E max abraham: 61.4 cm/sec Lat Peak E' Abraham: 7.7 cm/sec Med Peak E' Abraham: 5.7 cm/sec MV A max abraham: 124.1 cm/sec E/E' lat: 7.9 E/E' med: 10.8 MV E/A: 0.49 MV V2 max: 120.8 cm/sec MV P1/2t max abraham: 70.9 cm/sec Ao V2 max: 162.5 cm/sec MV max P.8 mmHg MV P1/2t: 91.4 msec Ao max P.6 mmHg MV V2 mean: 54.1 cm/sec Ao V2 mean: 116.5 cm/sec MV mean P.5 mmHg MV dec slope: 227.1 cm/sec2 Ao mean P.2 mmHg MV V2 VTI: 24.9 cm MVA(P1/2t): 2.4 cm2 Ao V2 VTI: 34.6 cm AV (velocity ratio): 0.56 MVA(VTI): 2.5 cm2 RAFA(I,D): 1.8 cm2 RAFA(V,D): 1.6 cm2 LV V1 max: 78.9 cm/sec SV(LVOT): 63.3 ml LV V1 max P.5 mmHg LV V1 mean P.6 mmHg LV V1 mean: 61.4 cm/sec LV V1 VTI: 19.4 cm ECHO/Echo Complete Interpretation Summary The global longitudinal strain = -17.8 % (normal). Normal LV size. Stage 1 diastolic dysfunction. The left ventricular ejection fraction is 60 %. Ordering Physician: Napoleon Chavez Performed By: Geremias Allen and Student
[2025-03-07 05:10] LABS: Hematocrit 33.8 % (37-47); Hemoglobin 10.0 g/dL (12.0-15.0); Mean Corp Hgb Conc 29.6 g/dL (32-36); Mean Corpuscular Volume 80.1 fL (81-99); Mean Platelet Vol. 9.1 fl (6.2-12.0); Platelet Count 376 K/mm3 (150-450); RBC Distribution Width CV 17.2 % (11.6-14.6); RBC Distribution Width SD 49.4 fl (35.1-43.9); Red Blood Count 4.22 M/mm3 (4.2-5.4); White Blood Count 9.3 K/mm3 (4.4-11.0)
[2025-03-07 05:41] LABS: Anion Gap 12 (5-15); BUN 23 mg/dL (4-19); BUN/Creat Ratio 16.7 RATIO (10-20); Calcium,Total 8.8 mg/dL (7.6-11.0); Carbon Dioxide 27.8 mmol/L (21.0-32.0); Chloride 99 mmol/L (98-108); Estimated Creatinine Clearance 24.88 ml/min (50-250); Glucose 108 mg/dL (70-99); Potassium 3.3 mmol/L (3.3-5.1)
[2025-03-07] MEDS: BRIMONIDINE 0.2% 5ML BOTTLE 2 DRP RIGHT EYE ×3 (06:48→20:55)
--- NOTE | 2025-03-07 07:30 | PCM.PN.HOSP ---
Reason for Visit Reason for Visit: Diagnoses Repeated falls (03/06/25) Weakness (03/06/25) Other malaise (03/06/25) Subjective Subjective Feeling better. Has frequent UTIs. Objective Data Objective Data Vital Signs: Vital Signs Temp Pulse Resp BP Pulse Ox O2 Del Method 36.9 C 98 17 154/78 H 93 Room Air 03/07/25 05:00 03/07/25 05:00 03/07/25 05:00 03/07/25 05:00 03/07/25 05:00 03/07/25 05:00 Oxygen Delivery Method Room Air Weight: 46.1 kg Body Mass Index (BMI) 19.8 Intake & Output: Intake and Output for Last 24 Hours 03/05/25 03/06/25 03/07/25 23:59 23:59 23:59 Intake Total 1000 / 1000 50 / 50 Balance 1000 / 1000 50 / 50 Lab / Micro Data 03/07/25 04:45 03/07/25 04:45 Labs: Laboratory Results - last 24 hr 03/06/25 20:55: WBC 8.8, RBC 4.51, Hgb 10.8 L, Hct 35.7 L, MCV 79.2 L, MCH 23.9 L, MCHC 30.3 L, RDW Std Deviation 49.1 H, RDW Coeff of Lauro 17.3 H, Plt Count 405, MPV 9.2, Immature Gran % (Auto) 0.600, Neut % (Auto) 68.2, Lymph % (Auto) 17.0 L, [place] % (Auto) 11.4 H, Eos % (Auto) 2.5, Baso % (Auto) 0.3, Absolute Neuts (auto) 6.0, Absolute Lymphs (auto) 1.49, Nucleated RBC % 0, Sodium 138, Potassium 4.2, Chloride 95 L, Carbon Dioxide 30.3, Anion Gap 13, BUN 26 H, Creatinine 1.49 H, Estim Creat Clear Calc 21.51 L, Est GFR (MDRD) Non-Af 36 L, BUN/Creatinine Ratio 17.7, Glucose 122 H, Calcium 9.5, Troponin T High Sens 35 H 03/06/25 21:10: Lactic Acid 1.3 03/06/25 21:55: Urine Color Yellow, Urine Clarity Sl. Cloudy, Urine pH 7.0, Ur Specific [place] 1.015, Urine Protein 100 H, Urine Glucose (UA) Normal, Urine Ketones Negative, Urine Occult Blood 10 H, Urine Nitrite Negative, Urine Bilirubin Negative, Urine Urobilinogen Normal, Ur Leukocyte Esterase 100 H, Urine RBC 0-5 SEEN, Urine WBC 25-50 SEEN, Ur Squamous Epith Cells 0-5 SEEN, Ur Transition Epith Cell 5-10 SEEN, Urine Bacteria 1+, Hyaline Casts 0-5 SEEN, Urine Mucus 0 SEEN, U Random Total Protein 139.0 H, Ur Random Sodium 36, Urine Creatinine 102.00, Protein/Creatinin Ratio 1363 H 03/06/25 23:26: Troponin T Hi Sens 2 Hr 33 H 03/07/25 04:45: WBC 9.3, RBC 4.22, Hgb 10.0 L, Hct 33.8 L, MCV 80.1 L, MCH 23.7 L, MCHC 29.6 L, RDW Std Deviation 49.4 H, RDW Coeff of Lauro 17.2 H, Plt Count 376, MPV 9.1, Sodium 139, Potassium 3.3, Chloride 99, Carbon Dioxide 27.8, Anion Gap 12, BUN 23 H, Creatinine 1.36 H, Estim Creat Clear Calc 24.88 L, Est GFR (MDRD) Non-Af 40 L, BUN/Creatinine Ratio 16.7, Glucose 108 H, Calcium 8.8 Radiography Diagnostic Testing: Radiology Impression Brain CT 03/06/25 20:17 IMPRESSION: 1. No acute intracranial abnormality. 2. Moderate volume loss and chronic small-vessel ischemic changes. Reading Location: [facility] Cervical Spine CT 03/06/25 20:17 IMPRESSION: No acute cervical spine fracture or subluxation. Multilevel degenerative changes, as described. Reading Location: [facility] Chest X-Ray 03/06/25 21:15 IMPRESSION: Probable mild bibasilar atelectasis. Reading Location: [place] [id number] Physical Exam Const alert Constitutional Narrative: up in chair. afebrile. Neck no lymphadenopathy and supple Resp normal respiratory effort, no retractions, no use of accessory muscles and clear to auscultation bilaterally Cardio regular rate, regular rhythm, S1 normal heart sound, S2 normal heart sound and no murmurs GI normal to inspection, nondistended, normoactive bowel sounds, soft to palpation, non-tender and non-distended Extremity normal to inspection, full ROM and no clubbing, cyanosis or edema Neuro Sensorium / Orientation: awake and alert Psych affect normal Assessment & Plan Assessment/Plan (1) RY (acute kidney injury): PLAN: POA. Creatinine 1.49. Baseline last known from 2022 and was 0.75 at that time. Improving with IVF, now Cr down to 1.36. (2) Debility: PLAN: PT OT evaluate and treat. Complicated by underlying MS and with possible UTI. (3) Abnormal urinalysis: PLAN: Concern for UTI. Follow up UCx. On CTX. Takes methinamine chronically, hold for now while on ABX. US showed bilateral nephrolithiasis w/o hydronephrosis. Unclear if stones are culprit in recurrent UTIs. Pt to follow up with Dr. Rg as outpt. Check CT to rule out abscesses/fistulas. PLAN: Plan Chronic conditions: MS h/o PE: rivaroxaban hypothyroidism: levothyroxine VTE prophylaxis: not indicated as already on rivaroxaban. DW patient's daughter at bedside. Charges/Coding Visit Charges Inpatient E&M: 63425 Subs Hosp L2
[2025-03-07] MEDS: Ensure Plus High Protein 120 ML LIQUID PO ×3 (09:51→16:57)
--- NOTE | 2025-03-07 10:55 | CASEMGMT ---
Addendum entered by Lupillo Davila 03/07/25 16:03: Per Emelyn, intake liaison, for [facility], they can accept pt. Addendum entered by Lupillo Davila 03/07/25 14:32: Referral made to TCU. Addendum entered by Lupillo Davila 03/07/25 14:05: 1200: MONTSE PATEL to room. Pt has returned to room. Min in room visiting. Min states he has spoken w/his and with pt and they prefer [facility] @ discharge and decline wanting list of other SNF options at this time. Pt is agreeable to same. Min states, if pt is not able to go to [facility], then [facility] would be their next preference. Original Note: RN?CM?SPORTS NUTRITIONIST?CM?to room to meet with patient for initial transition planning/care coordination?assessment.?RN?CM?introduced self and role at [facility].? Pt voices understanding and consents to?assessment?at this time.? Pt sitting up in chair in room in no distress at this time.? Son, Min, @ bedside. Pt is A/O at this time, but noted some forgetfulness and would occasionally give an incorrect answer and then Min would clarify. Care providers, pharmacy, and demographics verified/updated at this time. Strata: 3 PCP: Dr Min Specialists: none currently Preferred Pharmacy: [facility] [place] Insurance: [facility] Prescription Benefit:?Yes LNOK: Min Sanz. Son, Rivera. Daughter Living Arrangements: [facility] steps to [facility]. Independent w/ADL's. Friend either gets her groceries or takes pt to the store. Family or friends also prepare and drop off food for pt. She has had [facility] in the past but that was cancelled. Pt gets her maintenance medications through a pharmacy in [place] that come pre-packaged. Transportation:?Friends, family DME: Has the following DME:?medical alert, Apple watch, grab bars, rollator, FWW. HHC/SNF: Pt was @ [facility] in 2022 x 2. Pt is currently active w/[facility]. Pt was taken out of room for testing. MONTSE PATEL discussed discharge plan w/son, Min. He states pt has been on the waiting list for [facility] for years and they received a call a couple weeks ago that there was an opening, but pt declined to go there. She remains on the waiting list. Min does not feel that she is currently safe to return home at this time d/t weakness and would like her to go somewhere for therapy before returning home. He states will talk w/his and also w/pt once she returns to room to discuss things further. He was made aware therapy evals are pending and discussed SNF referral process. Further questions answered. He voices understanding. He voices no further concerns/needs at this time.? PLAN:? SNF, pending therapy evals and further discussion w/pt and family. Clara RODARTEN?RN?AMANDA
--- NOTE | 2025-03-07 14:19 | CT_ITS ---
EXAM: CT Abdomen and Pelvis Without Intravenous Contrast CLINICAL INDICATION: ABDOMINAL PAIN. RECURRENT UTIS. TECHNIQUE: Axial computed tomography images of the abdomen and pelvis without intravenous contrast. This CT exam was performed using one or more of the following dose reduction techniques: automated exposure control, adjustment of the mA and/or kV according to patient size, and/or use of iterative reconstruction technique. COMPARISON: No relevant prior studies available. FINDINGS: LUNG BASES: Unremarkable. No mass. No consolidation. ABDOMEN: LIVER: Fatty infiltration of the liver. GALLBLADDER AND BILE DUCTS: Unremarkable. No calcified stones. No ductal dilation. PANCREAS: Unremarkable. No ductal dilation. SPLEEN: Unremarkable. No splenomegaly. ADRENALS: Unremarkable. No mass. KIDNEYS AND URETERS: Unremarkable. No stones within either kidney. No hydronephrosis. STOMACH AND BOWEL: Fecal retention in the colon consistent with constipation. No obstruction. No mucosal thickening. PELVIS: APPENDIX: No findings to suggest acute appendicitis. BLADDER: Unremarkable. No stones. REPRODUCTIVE: Unremarkable as visualized. ABDOMEN and PELVIS: INTRAPERITONEAL SPACE: Unremarkable. No free air. No significant fluid collection. BONES/JOINTS: Shaped scoliosis of the thoracolumbar spine with multilevel endplate degenerative changes and disc disease. Severe compression deformity of T10 vertebral body. No dislocation. SOFT TISSUES: Unremarkable. VASCULATURE: Scattered calcified atherosclerotic disease of aorta. Indwelling IVC filter. No abdominal aortic aneurysm. LYMPH NODES: Unremarkable. No enlarged lymph nodes. CT/Abdomen/Pelvis without Cont IMPRESSION: 1. Fecal retention in the colon consistent with constipation. 2. No obstructive uropathy. Reading Location: [facility]
--- NOTE | 2025-03-07 14:53 | CASEMGMT ---
Addendum entered by Jade Grant 03/07/25 16:25: [facility] provides PT/SN to pt. Jade Grant DC Planning Asst. Original Note: Discharge Planning [place]LLY sent to [facility] with note asking for confirmation of disciplines being rec'd. Awaiting response. Jade Grant DC Planning Asst.
[2025-03-07] MEDS: Latanoprost 0.005% 1 Bottle 1 DRP EACH EYE (20:54)
[2025-03-08] VITALS (11 sets, daily range): BP systolic 156–175; BP diastolic 68–94; PULSE 88–98; RESP 16–18; TEMP 36.4–37.2; O2SAT 91–95
[2025-03-08] MEDS: 0.9% Saline Lock 10 ML Syringe IV ×3 (01:43→22:24)
[2025-03-08] MEDS: BRIMONIDINE 0.2% 5ML BOTTLE 2 DRP RIGHT EYE ×3 (05:18→22:23)
[2025-03-08 07:17] LABS: Hematocrit 32.8 % (37-47); Hemoglobin 9.5 g/dL (12.0-15.0); Immature Granulocytes Count 0.050 X10^3/uL (0.0-0.0); Mean Corp Hgb Conc 29.0 g/dL (32-36); Mean Corpuscular Volume 80.6 fL (81-99); Mean Platelet Vol. 9.2 fl (6.2-12.0); NRBC Flagged by Analyzer 0 % (0-5); Platelet Count 366 K/mm3 (150-450); RBC Distribution Width CV 17.5 % (11.6-14.6); RBC Distribution Width SD 50.8 fl (35.1-43.9); Red Blood Count 4.07 M/mm3 (4.2-5.4); White Blood Count 9.0 K/mm3 (4.4-11.0)
[2025-03-08 07:34] LABS: Anion Gap 12 (5-15); BUN 25 mg/dL (4-19); BUN/Creat Ratio 17.7 RATIO (10-20); Calcium,Total 8.5 mg/dL (7.6-11.0); Carbon Dioxide 27.3 mmol/L (21.0-32.0); Chloride 99 mmol/L (98-108); Estimated Creatinine Clearance 24.17 ml/min (50-250); Glucose 102 mg/dL (70-99); Potassium 3.3 mmol/L (3.3-5.1)
[2025-03-08] MEDS: Ensure Plus High Protein 120 ML LIQUID PO ×3 (07:54→16:43)
--- NOTE | 2025-03-08 08:11 | PN.HOSP_ITS ---
Reason for Visit Reason for Visit: Diagnoses Acute kidney failure, unspecified (03/06/25) Repeated falls (03/06/25) Weakness (03/06/25) Other malaise (03/06/25) Unspecified abnormal findings in urine (03/06/25) Subjective Subjective Feeling well. No new events. Objective Data Objective Data Vital Signs: Vital Signs Temp Pulse Resp BP Pulse Ox O2 Del Method O2 Flow Rate 36.7 C 88 16 171/68 H 93 Room Air 2 03/08/25 07:58 03/08/25 07:58 03/08/25 07:58 03/08/25 07:58 03/08/25 07:58 03/08/25 07:59 03/08/25 04:21 Oxygen Flow Rate (L/min) 2 Oxygen Delivery Method Room Air Weight: 46.1 kg Body Mass Index (BMI) 19.8 Intake & Output: Intake and Output for Last 24 Hours 03/06/25 03/07/25 03/08/25 23:59 23:59 23:59 Intake Total 1000 / 1000 900 / 900 400 / 400 Balance 1000 / 1000 900 / 900 400 / 400 Medical Nutrition Assessment Dietitian: Malnutrition Criteria Met Start: 03/07/25 11:29 Freq: Status: Active Protocol: Document 03/07/25 11:29 RMA (Rec: 03/07/25 11:29 RMA [id number]) Nutrition Malnutrition Evidence of Yes Malnutrition Exists Malnutrition (severe Chronic ): Evidenced By Suboptimal Energy Intake (Severe),Weight Loss (Severe), Physical Changes (Moderate) Clinical Problem Chronic Disease or Condition Related Malnutrition Etiology severe protein-calorie malnutrition in the context of chronic disease and debility related to inadequate energy/oral intake and increased energy expenditure Signs/Symptoms as evidenced by ~8-10% unintentional weight loss x past 3-6 months; PO meeting less than 75% estimated nutrition needs x past 3-6 months and BMI 19.8; pt appears to have evidence of moderate muscle wasting and fat depletion in clavicle, orbital, temporal region, arms and legs. Status Active Problem Recommendation Dietitian Will continue liberalized regular diet and encourage Recommendations/ improved PO at meals. Changes Will continue 120mL ensure plus HP (likes chocolate flavor) 3 times per day w/ medpass. Will add 240mL chocolate milkshake w/ lunch tray. Will add chocolate magic cup w/ dinner. Will adjust ONS as needed according to tolerance and preference. Will monitor weight trends as available. Lab / Micro Data 03/08/25 06:20 03/08/25 06:20 Labs: Laboratory Results - last 24 hr 03/08/25 06:20: WBC 9.0, RBC 4.07 L, Hgb 9.5 L, Hct 32.8 L, MCV 80.6 L, MCH 23.3 L, MCHC 29.0 L, RDW Std Deviation 50.8 H, RDW Coeff of Lauro 17.5 H, Plt Count 366, MPV 9.2, Immature Gran % (Auto) 0.600, Neut % (Auto) 72.7 H, Lymph % (Auto) 14.0 L, [place] % (Auto) 9.5, Eos % (Auto) 2.9, Baso % (Auto) 0.3, Absolute Neuts (auto) 6.6, Absolute Lymphs (auto) 1.26, Nucleated RBC % 0, Sodium 138, Potassium 3.3, Chloride 99, Carbon Dioxide 27.3, Anion Gap 12, BUN 25 H, C reatinine 1.40 H, Estim Creat Clear Calc 24.17 L, Est GFR (MDRD) Non-Af 39 L, BUN/Creatinine Ratio 17.7, Glucose 102 H, Calcium 8.5 Radiography Diagnostic Testing: Radiology Impression Renal Ultrasound 03/07/25 00:00 IMPRESSION: Bilateral nephrolithiasis without hydronephrosis. Reading Location: [facility] Echocardiogram 03/07/25 01:25 Interpretation Summary The global longitudinal strain = -17.8 % (normal). Normal LV size. Stage 1 diastolic dysfunction. The left ventricular ejection fraction is 60 %. Ordering Physician: Napoleon Chavez Performed By: Geremias Allen and Student Abdomen/Pelvis CT 03/07/25 14:19 IMPRESSION: 1. Fecal retention in the colon consistent with constipation. 2. No obstructive uropathy. Reading Location: [facility] Physical Exam Const alert and no apparent distress Constitutional Narrative: Up in chair. HEENT head/scalp atraumatic and moist oral mucous membranes Resp normal respiratory effort, no retractions, no use of accessory muscles and clear to auscultation bilaterally Cardio regular rate, regular rhythm, S1 normal heart sound and S2 normal heart sound GI normal to inspection, nondistended, normoactive bowel sounds, soft to palpation, non-tender and non-distended Extremity normal to inspection and full ROM Neuro Sensorium / Orientation: awake and alert Psych affect normal Assessment & Plan Assessment/Plan (1) RY (acute kidney injury): PLAN: POA. Creatinine 1.49. Baseline last known from 2022 and was 0.75 at that time. Improving with IVF, now Cr down to 1.4 (2) Debility: PLAN: PT OT evaluate and treat. Complicated by underlying MS and with possible UTI. (3) Abnormal urinalysis: PLAN: Concern for UTI. Follow up UCx. On CTX. Takes methinamine chronically, hold for now while on ABX. US showed bilateral nephrolithiasis w/o hydronephrosis. Unclear if stones are culprit in recurrent UTIs. Pt to follow up with Dr. Rg as outpt. CT abdomen pelvis showed fecal retention in the colon consistent with constipation but no obstructive uropathy. PLAN: Plan Chronic conditions: * MS * h/o PE: rivaroxaban * hypothyroidism: levothyroxine * History of uterine cancer: Patient has had history of hysterectomy and has had some lesions noted. But patient has elected not to proceed with any additional chemotherapy due to the severity of her symptoms with chemotherapy. VTE prophylaxis: not indicated as already on rivaroxaban. Disposition: To be determined. Tentative plans for the patient TCU on the . Discussed with family at bedside. Charges/Coding Visit Charges Inpatient E&M: 98565 Subs Hosp L2
--- NOTE | 2025-03-08 13:15 | CASEMGMT ---
MONTSE PATEL NOTE: MONTSE PATEL to room. Pt sitting up in chair. She was made aware TCU able to accept pt. She voices thankfulness for same. Call placed to son, Min. He was also made aware TCU able to accept pt. He voices appreciation for the update. Clara DANIELS RN, CM
[2025-03-08] MEDS: Latanoprost 0.005% 1 Bottle 1 DRP EACH EYE (22:23)
[2025-03-09] VITALS (9 sets, daily range): BP systolic 140–181; BP diastolic 73–93; PULSE 71–105; RESP 16–18; TEMP 36.6–37.1; O2SAT 92–96
[2025-03-09] MEDS: 0.9% Saline Lock 10 ML Syringe IV ×2 (02:39→19:35)
[2025-03-09] MEDS: BRIMONIDINE 0.2% 5ML BOTTLE 2 DRP RIGHT EYE ×3 (06:01→22:40)
--- NOTE | 2025-03-09 07:44 | PN.HOSP_ITS ---
Reason for Visit Reason for Visit: Diagnoses Acute kidney failure, unspecified (03/06/25) Repeated falls (03/06/25) Weakness (03/06/25) Other malaise (03/06/25) Unspecified abnormal findings in urine (03/06/25) Subjective Subjective No events. Objective Data Objective Data Vital Signs: Vital Signs Temp Pulse Resp BP Pulse Ox O2 Del Method O2 Flow Rate 37.1 C 85 18 149/75 H 93 Room Air 2 03/09/25 05:55 03/09/25 05:55 03/09/25 05:55 03/09/25 05:55 03/09/25 05:55 03/09/25 05:55 03/08/25 04:21 Oxygen Flow Rate (L/min) 2 Oxygen Delivery Method Room Air Weight: 46.1 kg Body Mass Index (BMI) 19.8 Intake & Output: Intake and Output for Last 24 Hours 03/07/25 03/08/25 03/09/25 23:59 23:59 23:59 Intake Total 900 / 900 850 / 850 380 / 380 Balance 900 / 900 850 / 850 380 / 380 Medical Nutrition Assessment Dietitian: Malnutrition Criteria Met Start: 03/07/25 11:29 Freq: Status: Active Protocol: Document 03/07/25 11:29 RMA (Rec: 03/07/25 11:29 RMA [id number]) Nutrition Malnutrition Evidence of Yes Malnutrition Exists Malnutrition (severe Chronic ): Evidenced By Suboptimal Energy Intake (Severe),Weight Loss (Severe), Physical Changes (Moderate) Clinical Problem Chronic Disease or Condition Related Malnutrition Etiology severe protein-calorie malnutrition in the context of chronic disease and debility related to inadequate energy/oral intake and increased energy expenditure Signs/Symptoms as evidenced by ~8-10% unintentional weight loss x past 3-6 months; PO meeting less than 75% estimated nutrition needs x past 3-6 months and BMI 19.8; pt appears to have evidence of moderate muscle wasting and fat depletion in clavicle, orbital, temporal region, arms and legs. Status Active Problem Recommendation Dietitian Will continue liberalized regular diet and encourage Recommendations/ improved PO at meals. Changes Will continue 120mL ensure plus HP (likes chocolate flavor) 3 times per day w/ medpass. Will add 240mL chocolate milkshake w/ lunch tray. Will add chocolate magic cup w/ dinner. Will adjust ONS as needed according to tolerance and preference. Will monitor weight trends as available. Lab / Micro Data 03/08/25 06:20 03/08/25 06:20 Physical Exam Const alert and no apparent distress HEENT head/scalp atraumatic and moist oral mucous membranes Resp normal respiratory effort, no retractions, no use of accessory muscles and clear to auscultation bilaterally Cardio regular rate, regular rhythm, S1 normal heart sound and S2 normal heart sound GI normal to inspection, nondistended, normoactive bowel sounds, soft to palpation, non-tender and non-distended Extremity normal to inspection Assessment & Plan Assessment/Plan (1) RY (acute kidney injury): PLAN: POA. Creatinine 1.49. Baseline last known from 2022 and was 0.75 at that time. Improving with IVF, now Cr down to 1.4 (2) Debility: PLAN: PT OT evaluate and treat. Complicated by underlying MS and with possible UTI. (3) Abnormal urinalysis: PLAN: Urine culture was negative. Will discontinue ceftriaxone and resume her methenamine. US showed bilateral nephrolithiasis w/o hydronephrosis. Unclear if stones are culprit in recurrent UTIs. Pt to follow up with Dr. Rg as outpt. CT abdomen pelvis showed fecal retention in the colon consistent with constipation but no obstructive uropathy. PLAN: Plan Chronic conditions: * MS * h/o PE: rivaroxaban * hypothyroidism: levothyroxine * History of uterine cancer: Patient has had history of hysterectomy and has had some lesions noted. But patient has elected not to proceed with any additional chemotherapy due to the severity of her symptoms with chemotherapy. VTE prophylaxis: not indicated as already on rivaroxaban. Disposition: Tentative plans for the patient TCU on the . Charges/Coding Visit Charges Inpatient E&M: 03311 Subs Hosp L2
--- NOTE | 2025-03-09 09:10 | CASEMGMT ---
Discharge Planning [facility] updated that pt will discharge to snf. Jade Grant DC Planning Asst.
[2025-03-09] MEDS: Ensure Plus High Protein 120 ML LIQUID PO ×2 (09:27→16:00)
--- NOTE | 2025-03-09 09:53 | CASEMGMT ---
Addendum entered by Lupillo Davila 03/09/25 17:35: Pt made aware pre-cert is pending for TCU. She voices understanding. Call placed to son, Min, and he was notified as well. DC Disposition: [facility] TCU,, skilled level of care, once insurance approval received. Addendum entered by Lupillo Davila 03/09/25 15:29: Per Emelyn, pre-cert is still pending. She states if she does not hear anything by tomorrow, she will expedite the case. Original Note: MONTSE PATEL NOTE: Per Emelyn, [facility] TCU intake liaison, she will submit for pre-cert now. Clara DANIELS RN CM
--- NOTE | 2025-03-09 11:50 | TREXTCAR_ITS ---
Diet Diet Order/Speech Therapy: INPATIENT Hospital Diet / Speech Therapy Order(s) 03/07/25 00:02 Diet: Regular - General Food consistency:: Regular Liquid Consistency:: Regular/Thin Type of Dietary Supplement:: Elaina Magic Cup w/ D Diet Comments: 240mL chocolate milkshake (chocolate ice cream and milk) with lunch tray DC O2, CPAP, BIPAP needs Home O2 Discharge instructions: No Therapies Weight Bearing: Full weight bearing Physical Therapy: Eval and Treat Occupational Therapy: Eval and Treat Problem/Diagnosis (1) RY (acute kidney injury): Status: Resolved Code(s): N17.9 - Acute kidney failure, unspecified Plan: POA. Creatinine 1.49. Baseline last known from 2022 and was 0.75 at that time. Improving with IVF, now Cr down to 1.4 (2) Debility: Status: Acute Code(s): R53.81 - Other malaise Plan: PT OT evaluate and treat. Complicated by underlying MS and with possible UTI. (3) Abnormal urinalysis: Status: Acute Code(s): R82.90 - Unspecified abnormal findings in urine Plan: Urine culture was negative. Will discontinue ceftriaxone and resume her methenamine. US showed bilateral nephrolithiasis w/o hydronephrosis. Unclear if stones are culprit in recurrent UTIs. Pt to follow up with Dr. Rg as outpt. CT abdomen pelvis showed fecal retention in the colon consistent with constipation but no obstructive uropathy. Plan Chronic conditions: * MS * h/o PE: rivaroxaban * hypothyroidism: levothyroxine * History of uterine cancer: Patient has had history of hysterectomy and has had some lesions noted. But patient has elected not to proceed with any additional chemotherapy due to the severity of her symptoms with chemotherapy. VTE prophylaxis: not indicated as already on rivaroxaban. Disposition: Tentative plans for the patient TCU on the . Allergies/Procedures Done in Hospital Allergies doxorubicin Allergy (Severe, Verified 03/06/25 19:07) Anaphylaxis codeine Allergy (Verified 03/06/25 19:07) Hives methylprednisolone Allergy (Verified 03/06/25 19:07) Hives Sulfa (Sulfonamide Antibiotics) Allergy (Verified 03/06/25 19:07) Hives erythromycin base Adverse Reaction (Verified 03/06/25 19:07) Upset Stomach Procedures: None Type of Care/Length of Stay Estimated LOS: Convalescent Care Less Than 30 days Type of Care Needed: Skilled Rehab Potential: Fair Prognosis: Good Additional Orders/Day of Discharge Day of Discharge: 03/09/25 Dietary and Speech Recommendations Dietitian Recommendations/Changes: Will continue liberalized regular diet and encourage improved PO at meals. Will continue 120mL ensure plus HP (likes chocolate flavor) 3 times per day w/ medpass. Will add 240mL chocolate milkshake w/ lunch tray. Will add chocolate magic cup w/ dinner. Will adjust ONS as needed according to tolerance and preference. Will monitor weight trends as available. Discharge Plan Admission Admit Date/Time: 03/06/25 22:30 Primary Reason for Your Visit: debility Attending Provider: Ethan Duarte Primary Care Provider: Bernardino Min Chi Consulting Providers: Napoleon Chavez Discharge Orders/Prescriptions Prescriptions: New carvedilol 12.5 mg Tablet 12.5 mg PO BIDCM Qty: 0 0RF amlodipine 5 mg Tablet 5 mg PO DAILY Qty: 0 0RF docusate sodium 100 mg Capsule 100 mg PO BID Qty: 0 0RF Ensure Plus High Protein 0.08 gram-1.5 kcal/mL Liquid 120 ml PO TIDCM Qty: 0 0RF Continued sertraline 100 MG tablet 125 mg PO DAILY Patient Comments: TAKE 1 TABLET BY MOUTH EVERY DAY levothyroxine 25 mcg tablet 25 mcg PO DAILY methenamine hippurate 1 gram tablet 1 g PO BID Patient Comments: TAKE 1 TABLET BY MOUTH TWICE A DAY WITH MEALS brimonidine 0.2 % drops 2 drp RIGHT EYE TID Patient Comments: INSTILL 1 DROP INTO RIGHT EYE 3 TIMES A DAY mirtazapine 15 mg tablet 15 mg PO QHS Patient Comments: 1 tablet by mouth once a day latanoprost 0.005 % drops 1 drp EACH EYE HS Xarelto 20 mg Tablet 20 mg PO DINNER 30 Days Qty: 30 0RF acetaminophen 500 mg Tablet 1,000 mg PO Q6H PRN PRN (Reason: Pain Score 1-10) Qty: 0 0RF Referrals / Follow Up: Bernardino Min Chi, MD [Primary Care Provider] - Within 2 Weeks Disposition Disposition (needs filled in before D/C Order can be placed): [facility]
--- NOTE | 2025-03-09 15:48 | CASEMGMT ---
Precert pending. Green sheet placed on chart if precert obtained over weekend with instructions for nursing to follow.
[2025-03-09] MEDS: Latanoprost 0.005% 1 Bottle 1 DRP EACH EYE (22:40)
[2025-03-10 02:35] VITALS: BP 188/93; PULSE 77; RESP 19; TEMP 36.4; O2SAT 93
[2025-03-10 02:38] VITALS: BP 188/93; PULSE 77
[2025-03-10] MEDS: 0.9% Saline Lock 10 ML Syringe IV ×2 (02:38→20:15)
[2025-03-10 03:15] VITALS: BP 161/77; PULSE 86; RESP 18; TEMP 36.6; O2SAT 95
[2025-03-10 05:55] VITALS: BP 169/112; PULSE 89; RESP 17; TEMP 37.1; O2SAT 94
[2025-03-10] MEDS: BRIMONIDINE 0.2% 5ML BOTTLE 2 DRP RIGHT EYE ×3 (06:00→22:32)
--- NOTE | 2025-03-10 07:32 | PN.HOSP_ITS ---
Reason for Visit Reason for Visit: Diagnoses Acute kidney failure, unspecified (03/06/25) Repeated falls (03/06/25) Weakness (03/06/25) Other malaise (03/06/25) Unspecified abnormal findings in urine (03/06/25) Subjective Subjective Feeling well. No events overnight. Objective Data Objective Data Vital Signs: Vital Signs Temp Pulse Resp BP Pulse Ox O2 Del Method O2 Flow Rate 37.1 C 89 17 169/112 H 94 Nasal Cannula 2 03/10/25 05:55 03/10/25 05:55 03/10/25 05:55 03/10/25 05:55 03/10/25 05:55 03/10/25 05:55 03/10/25 05:55 Oxygen Flow Rate (L/min) 2 Oxygen Delivery Method Nasal Cannula Weight: 46.1 kg Body Mass Index (BMI) 19.8 Intake & Output: Intake and Output for Last 24 Hours 03/08/25 03/09/25 03/10/25 23:59 23:59 23:59 Intake Total 850 / 850 980 / 980 350 / 350 Balance 850 / 850 980 / 980 350 / 350 Medical Nutrition Assessment Dietitian: Malnutrition Criteria Met Start: 03/07/25 11:29 Freq: Status: Active Protocol: Document 03/09/25 13:30 SB (Rec: 03/09/25 13:30 SB [id number]) Nutrition Malnutrition Evidence of Yes Malnutrition Exists Malnutrition (severe Chronic ): Evidenced By Suboptimal Energy Intake (Severe),Weight Loss (Severe), Physical Changes (Moderate) Clinical Problem Chronic Disease or Condition Related Malnutrition Etiology severe protein-calorie malnutrition in the context of chronic disease and debility related to inadequate energy/oral intake and increased energy expenditure Signs/Symptoms as evidenced by ~8-10% unintentional weight loss x past 3-6 months; PO meeting less than 75% estimated nutrition needs x past 3-6 months and BMI 19.8; pt appears to have evidence of moderate muscle wasting and fat depletion in clavicle, orbital, temporal region, arms and legs. Status Active Problem Recommendation Dietitian Continue liberalized regular diet and encourage Recommendations/ improved PO at meals. Changes Continue 120mL ensure plus HP (likes chocolate flavor) 3 times per day w/ medpass. Continue 240mL chocolate milkshake w/ lunch tray. Will discontinue chocolate magic cup w/ dinner. Will adjust ONS as needed according to tolerance and preference. Will monitor weight trends as available. Lab / Micro Data 03/08/25 06:20 03/08/25 06:20 Micro: Microbiology 03/06/25 21:55 Urine Catheter - Catheter Urine Culture - Final Culture exhibits no growth. Physical Exam Const Constitutional Narrative: Slowly confused. Introduced me to her [id number] and son who had met several times previously. HEENT head/scalp atraumatic Resp normal respiratory effort and no retractions Neuro Sensorium / Orientation: awake Psych affect normal Assessment & Plan Assessment/Plan (1) RY (acute kidney injury): PLAN: POA. Creatinine 1.49. Baseline last known from 2022 and was 0.75 at that time. Improving with IVF, now Cr down to 1.4 (2) Debility: PLAN: Plan for group home facility. (3) Abnormal urinalysis: PLAN: Urine culture was negative. Will discontinue ceftriaxone and resume her methenamine. US showed bilateral nephrolithiasis w/o hydronephrosis. Unclear if stones are culprit in recurrent UTIs. Pt to follow up with Dr. Rg as outpt. CT abdomen pelvis showed fecal retention in the colon consistent with constipation but no obstructive uropathy. PLAN: Plan Chronic conditions: * MS * h/o PE: rivaroxaban * hypothyroidism: levothyroxine * History of uterine cancer: Patient has had history of hysterectomy and has had some lesions noted. But patient has elected not to proceed with any additional chemotherapy due to the severity of her symptoms with chemotherapy. VTE prophylaxis: not indicated as already on rivaroxaban. Disposition: to TCU. Avoidable day. Patient was ready for discharge on the . Awaiting on insurance precertification. With patient and her family at bedside. Charges/Coding Visit Charges Inpatient E&M: 99727 Subs Hosp L2
[2025-03-10] MEDS: Ensure Plus High Protein 120 ML LIQUID PO ×3 (10:59→16:37)
[2025-03-10 14:00] VITALS: BP 110/60; PULSE 60; RESP 14; TEMP 36.8; O2SAT 94; O2SAT 95
--- NOTE | 2025-03-10 15:02 | NURSING ---
Pt complained of numbness on right side of the face and slightly slurred speech. She thought it was due to dry mouth or MS. This RN began performing NIHSS and Dr. Duarte came to room, witnessing NIHSS. Per MD, no need for stroke alert, will continue to monitor. Alerted family to notify nursing staff if they notice any changes as well. Pt stated she has felt this in the past due to MS.
[2025-03-10 20:10] VITALS: BP 144/70; PULSE 72; RESP 16; TEMP 36.7; O2SAT 93
[2025-03-10] MEDS: Latanoprost 0.005% 1 Bottle 1 DRP EACH EYE (22:32)
[2025-03-10] MEDS: MELATONIN 3 MG TABLET PO (22:32)
[2025-03-11] VITALS (7 sets, daily range): BP systolic 116–183; BP diastolic 60–86; PULSE 72–79; RESP 14–23; TEMP 36.1–37.3; O2SAT 92–96
[2025-03-11] MEDS: BRIMONIDINE 0.2% 5ML BOTTLE 2 DRP RIGHT EYE ×3 (05:17→21:54)
[2025-03-11] MEDS: 0.9% Saline Lock 10 ML Syringe IV (05:17)
--- NOTE | 2025-03-11 07:37 | PN.HOSP_ITS ---
Reason for Visit Reason for Visit: Diagnoses Acute kidney failure, unspecified (03/06/25) Repeated falls (03/06/25) Weakness (03/06/25) Other malaise (03/06/25) Unspecified abnormal findings in urine (03/06/25) Subjective Subjective Still having dysarthria. Complaining of some facial numbness as well. Objective Data Objective Data Vital Signs: Vital Signs Temp Pulse Resp BP Pulse Ox O2 Del Method O2 Flow Rate 36.1 C L 73 16 152/70 H 96 Nasal Cannula 2 03/11/25 06:05 03/11/25 06:05 03/11/25 06:05 03/11/25 06:05 03/11/25 06:05 03/11/25 06:05 03/11/25 06:05 Oxygen Flow Rate (L/min) 2 Oxygen Delivery Method Nasal Cannula Weight: 46.1 kg Body Mass Index (BMI) 19.8 Intake & Output: Intake and Output for Last 24 Hours 03/09/25 03/10/25 03/11/25 23:59 23:59 23:59 Intake Total 980 / 980 1455 / 1455 120 / 120 Output Total 300 / 300 Balance 980 / 980 1455 / 1455 -180 / -180 Medical Nutrition Assessment Dietitian: Malnutrition Criteria Met Start: 03/07/25 11:29 Freq: Status: Active Protocol: Document 03/09/25 13:30 SB (Rec: 03/09/25 13:30 SB [id number]) Nutrition Malnutrition Evidence of Yes Malnutrition Exists Malnutrition (severe Chronic ): Evidenced By Suboptimal Energy Intake (Severe),Weight Loss (Severe), Physical Changes (Moderate) Clinical Problem Chronic Disease or Condition Related Malnutrition Etiology severe protein-calorie malnutrition in the context of chronic disease and debility related to inadequate energy/oral intake and increased energy expenditure Signs/Symptoms as evidenced by ~8-10% unintentional weight loss x past 3-6 months; PO meeting less than 75% estimated nutrition needs x past 3-6 months and BMI 19.8; pt appears to have evidence of moderate muscle wasting and fat depletion in clavicle, orbital, temporal region, arms and legs. Status Active Problem Recommendation Dietitian Continue liberalized regular diet and encourage Recommendations/ improved PO at meals. Changes Continue 120mL ensure plus HP (likes chocolate flavor) 3 times per day w/ medpass. Continue 240mL chocolate milkshake w/ lunch tray. Will discontinue chocolate magic cup w/ dinner. Will adjust ONS as needed according to tolerance and preference. Will monitor weight trends as available. Lab / Micro Data 03/08/25 06:20 03/08/25 06:20 Micro: Microbiology 03/06/25 21:55 Urine Catheter - Catheter Urine Culture - Final Culture exhibits no growth. Physical Exam Const alert and no apparent distress Constitutional Narrative: Up in bed. Speech is more probably slurred overall. Yesterday seem to be more with the letter s. But overall seems to be much more pronounced. HEENT head/scalp atraumatic and moist oral mucous membranes Cardio regular rate, regular rhythm, S1 normal heart sound and S2 normal heart sound GI normal to inspection, nondistended, normoactive bowel sounds, soft to palpation and non-tender Extremity normal to inspection and no clubbing, cyanosis or edema Neuro oriented x3, moves all extremities, no focal motor deficits and no sensory deficits noted Sensorium / Orientation: awake and alert Coordination / Balance: [id number] test normal Speech: Negative for speech normal Motor Exam: strength 5/5 throughout Psych affect normal Assessment & Plan Assessment/Plan (1) RY (acute kidney injury): PLAN: POA. Creatinine 1.49. Baseline last known from 2022 and was 0.75 at that time. Improving with IVF, now Cr down to 1.4 (2) Debility: PLAN: [facility]. (3) Abnormal urinalysis: PLAN: Urine culture was negative. Will discontinue ceftriaxone and resume her methenamine. US showed bilateral nephrolithiasis w/o hydronephrosis. Unclear if stones are culprit in recurrent UTIs. Pt to follow up with Dr. Rg as outpt. CT abdomen pelvis showed fecal retention in the colon consistent with constipation but no obstructive uropathy. (4) Dysarthria: PLAN: No other focal deficits. Head CT negative. Unclear etiology. Possibilities include stroke versus flareup of her MS. Will check an MRI of the brain. Based on the results of the MRI we will determine if additional testing or consultation would be necessary. PLAN: Plan Chronic conditions: * MS * h/o PE: rivaroxaban * hypothyroidism: levothyroxine * History of uterine cancer: Patient has had history of hysterectomy and has had some lesions noted. But patient has elected not to proceed with any additional chemotherapy due to the severity of her symptoms with chemotherapy. VTE prophylaxis: not indicated as already on rivaroxaban. Disposition: to TCU. Discussed with the patient's family at bedside Charges/Coding Visit Charges Inpatient E&M: 81308 Subs Hosp L3
[2025-03-11] MEDS: Ensure Plus High Protein 120 ML LIQUID PO ×3 (08:45→16:07)
--- NOTE | 2025-03-11 10:42 | CT_ITS ---
EXAM: BRAIN/HEAD WITHOUT CONTRAST CLINICAL HISTORY: 79 y/o F with DYSARTHRIA. COMPARISON: CT head 03/06/2025. TECHNIQUE: Routine CT imaging of the head without IV contrast. Additional multiplanar reformats were obtained. Dose reduction techniques were used including intermediate exposure control (AEC),iterative reconstruction technique, and/or mA and/or KV dose adjustments based on patient's size. FINDINGS: Moderate generalized cerebral volume loss with concordant prominence of the ventricles and subarachnoid spaces. There is no evidence of acute intracranial hemorrhage or herniation. There is no midline shift, mass effect, or extra-axial collection. Moderate patchy supratentorial white matter hypodensities. Chronic lacunar type infarct within the left basal ganglia. The wolf and white matter interfaces are otherwise maintained. Prior ocular lens replacements. The visualized paranasal sinuses and mastoids are unremarkable. No acute calvarial fracture or scalp hematoma. CT/Brain/Head without Contrast IMPRESSION: No acute intracranial finding. Reading Location: [id number]
[2025-03-11] MEDS: Latanoprost 0.005% 1 Bottle 1 DRP EACH EYE (21:55)
[2025-03-12 03:31] VITALS: BP 147/77; PULSE 68; RESP 16; TEMP 36.2; O2SAT 92
[2025-03-12] MEDS: BRIMONIDINE 0.2% 5ML BOTTLE 2 DRP RIGHT EYE ×3 (06:05→21:23)
--- NOTE | 2025-03-12 08:03 | PN.HOSP_ITS ---
Reason for Visit Chief Complaint: Fall with worsening weakness and confusion Subjective Subjective Speech back to normal. Objective Data Objective Data Vital Signs: Vital Signs Temp Pulse Resp BP Pulse Ox O2 Del Method O2 Flow Rate 36.2 C L 68 16 147/77 H 92 Room Air 2 03/12/25 03:31 03/12/25 03:31 03/12/25 03:31 03/12/25 03:31 03/12/25 03:31 03/12/25 03:32 03/11/25 13:32 Oxygen Flow Rate (L/min) 2 Oxygen Delivery Method Room Air Weight: 46.1 kg Body Mass Index (BMI) 19.8 Intake & Output: Intake and Output for Last 24 Hours 03/10/25 03/11/25 03/12/25 23:59 23:59 23:59 Intake Total 1455 / 1455 1220 / 1460 360 / 360 Output Total 300 / 300 300 / 300 Balance 1455 / 1455 920 / 1160 60 / 60 Medical Nutrition Assessment Dietitian: Malnutrition Criteria Met Start: 03/07/25 11:29 Freq: Status: Active Protocol: Document 03/09/25 13:30 SB (Rec: 03/09/25 13:30 SB [id number]) Nutrition Malnutrition Evidence of Yes Malnutrition Exists Malnutrition (severe Chronic ): Evidenced By Suboptimal Energy Intake (Severe),Weight Loss (Severe), Physical Changes (Moderate) Clinical Problem Chronic Disease or Condition Related Malnutrition Etiology severe protein-calorie malnutrition in the context of chronic disease and debility related to inadequate energy/oral intake and increased energy expenditure Signs/Symptoms as evidenced by ~8-10% unintentional weight loss x past 3-6 months; PO meeting less than 75% estimated nutrition needs x past 3-6 months and BMI 19.8; pt appears to have evidence of moderate muscle wasting and fat depletion in clavicle, orbital, temporal region, arms and legs. Status Active Problem Recommendation Dietitian Continue liberalized regular diet and encourage Recommendations/ improved PO at meals. Changes Continue 120mL ensure plus HP (likes chocolate flavor) 3 times per day w/ medpass. Continue 240mL chocolate milkshake w/ lunch tray. Will discontinue chocolate magic cup w/ dinner. Will adjust ONS as needed according to tolerance and preference. Will monitor weight trends as available. Lab / Micro Data 03/08/25 06:20 03/08/25 06:20 Micro: Microbiology 03/06/25 21:55 Urine Catheter - Catheter Urine Culture - Final Culture exhibits no growth. Radiography Diagnostic Testing: Radiology Impression Brain CT 03/11/25 10:42 IMPRESSION: No acute intracranial finding. Reading Location: [facility] Physical Exam Const alert and no apparent distress HEENT head/scalp atraumatic and moist oral mucous membranes Resp normal respiratory effort, no retractions and no use of accessory muscles Cardio regular rate, regular rhythm, S1 normal heart sound and S2 normal heart sound GI normal to inspection, nondistended, normoactive bowel sounds, soft to palpation, non-tender and non-distended Extremity normal to inspection and full ROM Neuro Sensorium / Orientation: awake and alert Assessment & Plan Assessment/Plan (1) RY (acute kidney injury): PLAN: POA. Creatinine 1.49. Baseline last known from 2022 and was 0.75 at that time. Improving with IVF, now Cr down to 1.4 (2) Debility: PLAN: [facility]. (3) Abnormal urinalysis: PLAN: Urine culture was negative. Will discontinue ceftriaxone and resume her methenamine. US showed bilateral nephrolithiasis w/o hydronephrosis. Unclear if stones are culprit in recurrent UTIs. Pt to follow up with Dr. Rg as outpt. CT abdomen pelvis showed fecal retention in the colon consistent with constipation but no obstructive uropathy. (4) Dysarthria: PLAN: Resolved no other focal deficits. I suspect due to just being more fatigued. No evidence of any stroke or MS flare. Head CT negative. MRI of the brain is negative. PLAN: Plan Chronic conditions: * MS * h/o PE: rivaroxaban * hypothyroidism: levothyroxine * History of uterine cancer: Patient has had history of hysterectomy and has had some lesions noted. But patient has elected not to proceed with any additional chemotherapy due to the severity of her symptoms with chemotherapy. VTE prophylaxis: not indicated as already on rivaroxaban. Disposition: to TCU pending. Charges/Coding Visit Charges Inpatient E&M: 38731 Subs Hosp L2
--- NOTE | 2025-03-12 09:10 | MRI_ITS ---
PROCEDURE: BRAIN W/WO CONTRAST 03/12/2025 REASON FOR EXAM: DYSARTHRIA TECHNIQUE: BRAIN W/WO CONTRAST Multiplanar and multisequence images were obtained. CONTRAST: Clariscan VOLUME: 9 mL COMPARISON: CT head without contrast, 03/11/2025. FINDINGS: There is moderate diffuse cerebral atrophy with concomitant ventriculomegaly. There is patchy periventricular and subcortical white matter signal abnormality in both cerebral hemispheres. There are chronic lacunar infarctions in both basal ganglia. There is a normal sulcal pattern and gyral configuration. There is no evidence of acute intracranial hemorrhage or infarction. The wolf-white differentiation is well preserved. There is no evidence of restricted diffusion. The basilar cisterns are normal. There are normal flow voids demonstrated in the recognized intracranial vessels. The cerebellum and brainstem are unremarkable. The cerebellar pontine angles are normal. The craniovertebral junction is normal. The sella and suprasellar regions are normal. Status post bilateral intra-ocular lens implants the orbits and retro-orbital regions are otherwise unremarkable. The nasal septum is midline. The paranasal sinuses are clear. The mastoid air cells are clear. There is normal bone marrow signal in the skull base and calvarium. MRI/Brain W/WO Contrast IMPRESSION: 1. No evidence of acute intracranial pathology. 2. Cerebral atrophy and chronic ischemic white matter disease. 3. 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 4. Other findings as noted. Reading Location: [place] [id number]
[2025-03-12 10:22] VITALS: BP 148/83; PULSE 83; RESP 17; TEMP 36.7; O2SAT 96
[2025-03-12] MEDS: Ensure Plus High Protein 120 ML LIQUID PO ×3 (10:29→17:03)
[2025-03-12] MEDS: 0.9% Saline Lock 10 ML Syringe IV (10:30)
[2025-03-12 17:00] VITALS: BP 137/71; PULSE 68; RESP 17; TEMP 36.5; O2SAT 94
[2025-03-12] MEDS: Latanoprost 0.005% 1 Bottle 1 DRP EACH EYE (21:23)
[2025-03-12 22:26] VITALS: BP 136/68; PULSE 71; RESP 16; TEMP 36.4; O2SAT 92
[2025-03-13 01:11] VITALS: PULSE 78; RESP 16; TEMP 36.8; O2SAT 92
[2025-03-13 06:01] VITALS: BP 160/72; PULSE 72; RESP 16; TEMP 36.4; O2SAT 92
[2025-03-13] MEDS: 0.9 % NaCl (Sterile) Posiflush 10 mL IV (06:06)
[2025-03-13] MEDS: BRIMONIDINE 0.2% 5ML BOTTLE 2 DRP RIGHT EYE ×2 (06:06→14:38)
--- NOTE | 2025-03-13 07:55 | PCM.PN.HOSP ---
Reason for Visit Chief Complaint: Fall with worsening weakness and confusion Subjective Subjective Doing well. No events overnight. Objective Data Objective Data Vital Signs: Vital Signs Temp Pulse Resp BP Pulse Ox O2 Del Method O2 Flow Rate 36.4 C L 72 16 160/72 H 92 Room Air 2 03/13/25 06:01 03/13/25 06:01 03/13/25 06:01 03/13/25 06:01 03/13/25 06:01 03/13/25 06:01 03/11/25 13:32 Oxygen Flow Rate (L/min) 2 Oxygen Delivery Method Room Air Weight: 46.1 kg Body Mass Index (BMI) 19.8 Intake & Output: Intake and Output for Last 24 Hours 03/11/25 03/12/25 03/13/25 23:59 23:59 23:59 Intake Total 1220 / 1460 1540 / 1540 30 / 30 Output Total 300 / 300 300 / 300 50 / 50 Balance 920 / 1160 1240 / 1240 -20 / -20 Medical Nutrition Assessment Dietitian: Malnutrition Criteria Met Start: 03/07/25 11:29 Freq: Status: Active Protocol: Document 03/09/25 13:30 SB (Rec: 03/09/25 13:30 SB [id number]) Nutrition Malnutrition Evidence of Yes Malnutrition Exists Malnutrition (severe Chronic ): Evidenced By Suboptimal Energy Intake (Severe),Weight Loss (Severe), Physical Changes (Moderate) Clinical Problem Chronic Disease or Condition Related Malnutrition Etiology severe protein-calorie malnutrition in the context of chronic disease and debility related to inadequate energy/oral intake and increased energy expenditure Signs/Symptoms as evidenced by ~8-10% unintentional weight loss x past 3-6 months; PO meeting less than 75% estimated nutrition needs x past 3-6 months and BMI 19.8; pt appears to have evidence of moderate muscle wasting and fat depletion in clavicle, orbital, temporal region, arms and legs. Status Active Problem Recommendation Dietitian Continue liberalized regular diet and encourage Recommendations/ improved PO at meals. Changes Continue 120mL ensure plus HP (likes chocolate flavor) 3 times per day w/ medpass. Continue 240mL chocolate milkshake w/ lunch tray. Will discontinue chocolate magic cup w/ dinner. Will adjust ONS as needed according to tolerance and preference. Will monitor weight trends as available. Lab / Micro Data 03/08/25 06:20 03/08/25 06:20 Micro: Microbiology 03/06/25 21:55 Urine Catheter - Catheter Urine Culture - Final Culture exhibits no growth. Radiography Diagnostic Testing: Radiology Impression Brain MRI 03/12/25 09:10 IMPRESSION: 1. No evidence of acute intracranial pathology. 2. Cerebral atrophy and chronic ischemic white matter disease. 3. 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 4. Other findings as noted. Reading Location: [place] [id number] Physical Exam Const alert and no apparent distress HEENT head/scalp atraumatic and moist oral mucous membranes Resp normal respiratory effort and no retractions Neuro Sensorium / Orientation: awake and alert Assessment & Plan Assessment/Plan (1) RY (acute kidney injury): PLAN: POA. Creatinine 1.49. Baseline last known from 2022 and was 0.75 at that time. Improving with IVF, now Cr down to 1.4 (2) Debility: PLAN: Initial plan is for halfway facility however the patient has been up ambulating 220 feet. Plan is for the patient to go home with home care. (3) Abnormal urinalysis: PLAN: Urine culture was negative. Will discontinue ceftriaxone and resume her methenamine. US showed bilateral nephrolithiasis w/o hydronephrosis. Unclear if stones are culprit in recurrent UTIs. Pt to follow up with Dr. Rg as outpt. CT abdomen pelvis showed fecal retention in the colon consistent with constipation but no obstructive uropathy. (4) Dysarthria: PLAN: Resolved no other focal deficits. I suspect due to just being more fatigued. Head CT negative. MRI of the brain is negative. PLAN: Plan Chronic conditions: MS h/o PE: rivaroxaban hypothyroidism: levothyroxine History of uterine cancer: Patient has had history of hysterectomy and has had some lesions noted. But patient has elected not to proceed with any additional chemotherapy due to the severity of her symptoms with chemotherapy. VTE prophylaxis: not indicated as already on rivaroxaban. Disposition: To home with home care
--- NOTE | 2025-03-13 09:56 | CASEMGMT ---
Addendum entered by Winter Eugene 03/13/25 14:55: MONTSE PATEL received update from [facility] that SOC is planned for Wednesday or . MONTSE PATEL in to updated patient. MONTSE PATEL discussed Assisted Living LOC with patient and encouraged patient to have discussion with sons about assisted living. Patient voiced understanding. Patient had no further questions or concerns. Original Note: MONTSE PATEL updated by TCU that patient was denied by insurance for SNF level of care. Per Emelyn, patient is able to appeal denial. MONTSE PATEL in to discuss and update patient. RN AMANDA updated patient of denial and right to appeal. RN AMANDA reviewed progress with therapy and patient ambulated 120ft SBA. Patient states she does not want to appeal and would like [facility] discharge [facility] Patient had no further questions or concerns. Patient gave permission to update son Min. MONTSE PATEL called Min and updated regarding denial, patient's progress with therapy, and patient's wishes to discharge home with resumption of HHC. RN AMANDA updated Min regarding the right to appeal but patient wishes to discharge home. Min states they will update the family and let RN AMANDA know their decision. MONTSE PATEL then received call from son Rivera. Rivera updated regarding progress with therapy and patient's plan to return home with resumption of HHC with OT and SW added on to services. MONTSE PATEL discussed Private Duty Aides and will provide list in discharge packet. RN AMANDA encouraged Rivera to discuss with brother and patient regarding Assisted Living. Rivera states they have an apartment for the patient at [facility] but they just need patient to be on board for the transition. Rivera had no further questions or concerns. MONTSE PATEL updated [facility] of discharge and addition of OT and SW and requested start of care date. MONTSE PATEL updated hospitalist. CM will continue to follow this patient and plan for a safe discharge.
[2025-03-13 10:38] VITALS: BP 134/78; PULSE 67; RESP 18; TEMP 36.7; O2SAT 93
[2025-03-13] MEDS: Ensure Plus High Protein 120 ML LIQUID PO ×3 (10:44→17:32)
--- NOTE | 2025-03-13 11:19 | DS.PCM_ITS ---
Providers Date of Admission: 03/06/25 Primary Care Physician: Dr. Bernardino Min MD Reason For Visit: RY W/DEHYDRATION & UTI, CONFUSION Diagnosis Discharge Diagnosis (1) RY (acute kidney injury): Status: Resolved Code(s): N17.9 - Acute kidney failure, unspecified Plan: POA. Creatinine 1.49. Baseline last known from 2022 and was 0.75 at that time. Improving with IVF, now Cr down to 1.4 (2) Debility: Status: Acute Code(s): R53.81 - Other malaise Plan: [facility] the patient has been up ambulating 220 feet. Plan is for the patient to go home with home care. (3) Abnormal urinalysis: Status: Resolved Code(s): R82.90 - Unspecified abnormal findings in urine Plan: Urine culture was negative. Will discontinue ceftriaxone and resume her methenamine. US showed bilateral nephrolithiasis w/o hydronephrosis. Unclear if stones are culprit in recurrent UTIs. Pt to follow up with Dr. Rg as outpt. CT abdomen pelvis showed fecal retention in the colon consistent with constipation but no obstructive uropathy. (4) Dysarthria: Status: Acute Code(s): R47.1 - Dysarthria and anarthria Plan: Resolved no other focal deficits. I suspect due to just being more fatigued. Head CT negative. MRI of the brain is negative. Plan Chronic conditions: * MS * h/o PE: rivaroxaban * hypothyroidism: levothyroxine * History of uterine cancer: Patient has had history of hysterectomy and has had some lesions noted. But patient has elected not to proceed with any additional chemotherapy due to the severity of her symptoms with chemotherapy. VTE prophylaxis: not indicated as already on rivaroxaban. Disposition: To home with home care Medications at Discharge Home Medications sertraline 100 mg tablet 125 mg PO DAILY mental health 09/08/18 brimonidine 0.2 % eye drops 2 drp RIGHT EYE TID glaucoma 08/31/22 levothyroxine 25 mcg tablet 25 mcg PO DAILY thyroid 08/31/22 methenamine hippurate 1 gram tablet 1 g PO BID Bladder 08/31/22 mirtazapine 15 mg tablet 15 mg PO QHS sleep 01/02/23 latanoprost 0.005 % eye drops 1 drp EACH EYE Eye health 09/11/22 rivaroxaban 20 mg tablet (Xarelto) 20 mg PO DINNER BLOOD THINNER 30 days #30 tabs 09/16/22 acetaminophen 500 mg tablet 1,000 mg (2 x 500 mg) PO Q6H PRN PRN Pain Score 1-10 #0 tabs 07/05/23 docusate sodium 100 mg capsule 100 mg PO BID #0 caps 03/09/25 amlodipine 5 mg tablet 5 mg PO DAILY #30 tabs 03/13/25 carvedilol 12.5 mg tablet 12.5 mg PO BID #60 tabs 03/13/25 food supplemt, lactose-reduced 0.08 gram-1.5 kcal/mL oral liquid (Ensure Plus High Protein) 120 ml PO .tid #120 BOTTLES 03/13/25 Medical Records Data Medical Nutrition Assessment Dietitian: Malnutrition Criteria Met Start: 03/07/25 11:29 Freq: Status: Active Protocol: Document 03/09/25 13:30 SB (Rec: 03/09/25 13:30 SB [id number]) Nutrition Malnutrition Evidence of Yes Malnutrition Exists Malnutrition (severe Chronic ): Evidenced By Suboptimal Energy Intake (Severe),Weight Loss (Severe), Physical Changes (Moderate) Clinical Problem Chronic Disease or Condition Related Malnutrition Etiology severe protein-calorie malnutrition in the context of chronic disease and debility related to inadequate energy/oral intake and increased energy expenditure Signs/Symptoms as evidenced by ~8-10% unintentional weight loss x past 3-6 months; PO meeting less than 75% estimated nutrition needs x past 3-6 months and BMI 19.8; pt appears to have evidence of moderate muscle wasting and fat depletion in clavicle, orbital, temporal region, arms and legs. Status Active Problem Recommendation Dietitian Continue liberalized regular diet and encourage Recommendations/ improved PO at meals. Changes Continue 120mL ensure plus HP (likes chocolate flavor) 3 times per day w/ medpass. Continue 240mL chocolate milkshake w/ lunch tray. Will discontinue chocolate magic cup w/ dinner. Will adjust ONS as needed according to tolerance and preference. Will monitor weight trends as available. Weight / BMI Weight Weight: 46.1 kg Body Mass Index (BMI) 19.8 ABG / Lab / Microbiology Data 03/08/25 06:20 03/08/25 06:20 Microbiology: Microbiology 03/06/25 21:55 Urine Catheter - Catheter Urine Culture - Final Culture exhibits no growth. D/C Instructions Discharge Activity: Return to Normal Activity DC O2, CPAP, BIPAP Needs Home O2 Discharge instructions: No Meaningful Use Info Meaningful Use Meaningful Use Diagnoses (Choose all that apply): None applicable Discharge Plan Admission Admit Date/Time: 03/06/25 22:30 Primary Reason for Your Visit: debility Attending Provider: Ethan Duarte Primary Care Provider: Bernardino Min Chi Consulting Providers: Napoleon Chavez Discharge Orders/Prescriptions Prescriptions: New docusate sodium 100 mg Capsule 100 mg PO BID Qty: 0 0RF amlodipine 5 mg tablet 5 mg PO DAILY Qty: 30 0RF carvedilol 12.5 mg tablet 12.5 mg PO BID Qty: 60 0RF Rx Instructions: must administer with a meal/food Ensure Plus High Protein 0.08 gram-1.5 kcal/mL liquid 120 ml PO .tid Qty: 120 0RF Continued sertraline 100 MG tablet 125 mg PO DAILY Patient Comments: TAKE 1 TABLET BY MOUTH EVERY DAY levothyroxine 25 mcg tablet 25 mcg PO DAILY methenamine hippurate 1 gram tablet 1 g PO BID Patient Comments: TAKE 1 TABLET BY MOUTH TWICE A DAY WITH MEALS brimonidine 0.2 % drops 2 drp RIGHT EYE TID Patient Comments: INSTILL 1 DROP INTO RIGHT EYE 3 TIMES A DAY mirtazapine 15 mg tablet 15 mg PO QHS Patient Comments: 1 tablet by mouth once a day latanoprost 0.005 % drops 1 drp EACH EYE HS Xarelto 20 mg Tablet 20 mg PO DINNER 30 Days Qty: 30 0RF acetaminophen 500 mg Tablet 1,000 mg PO Q6H PRN PRN (Reason: Pain Score 1-10) Qty: 0 0RF Referrals / Follow Up: Bernardino Min Chi, MD [Primary Care Provider] - Within 2 Weeks Disposition Disposition (needs filled in before D/C Order can be placed): Home Health Service Charges/Coding Visit Charges Inpatient E&M: 47261 Disch Hosp >30min
--- NOTE | 2025-03-13 11:52 | CASEMGMT ---
Discharge Planning HH order and Discharge Summary sent to [facility]. Waiting for response on soc. Jade Grant DC Planning Asst.
[2025-03-13 12:55] VITALS: BP 131/59; PULSE 92; RESP 17
[2025-03-13 17:28] VITALS: BP 124/69; PULSE 66; RESP 18; TEMP 36.8; O2SAT 94
[2025-03-13] MEDS: 0.9% Saline Lock 10 ML Syringe IV (17:31)
== END 2025-03-13 18:53 | disposition home health service (06) | DRG 682 ==
LOC: ED 22:34 → PCU 22:51
PROVIDERS: Admitting Provider Hospitalist; Emergency Provider Surgery; PCP Family Medicine Geriatric Medicine
DX: N17.9 Acute kidney failure, unspecified (principal); E43 Unspecified severe protein-calorie malnutrition; N30.40 Irradiation cystitis without hematuria; Z68.1 Body mass index [BMI] 19.9 or less, adult; I16.0 Hypertensive urgency; Z66 Do not resuscitate; F32.A Depression, unspecified; D64.9 Anemia, unspecified; E03.9 Hypothyroidism, unspecified; I10 Essential (primary) hypertension; R53.1 Weakness; Z86.718 Personal history of other venous thrombosis and embolism; Z79.01 Long term (current) use of anticoagulants; Z86.711 Personal history of pulmonary embolism; Z79.890 Hormone replacement therapy; Z90.710 Acquired absence of both cervix and uterus; R53.81 Other malaise; Z79.899 Other long term (current) drug therapy; R29.6 Repeated falls; R41.0 Disorientation, unspecified; R79.89 Other specified abnormal findings of blood chemistry; Z85.42 Personal history of malignant neoplasm of other parts of uterus; R82.90 Unspecified abnormal findings in urine; R47.1 Dysarthria and anarthria; Z92.21 Personal history of antineoplastic chemotherapy
CPT/HCPCS: 36415; 36591; 70450; 70553; 71046; 72125; 74176; 76770; 80048; 80053; 81001; 82570; 83605; 84156; 84300; 84443; 84484; 85025; 85027; 87086; 93005; 93306; 94668; 97116; 97162; 97166; 97530; 97535; 97802; 97803; 99285; A4216; J2405